=== PATIENT | male | born 1940 | race Two or more races ===

== ENCOUNTER → 2017-09-07 | Outpatient (CLI) | payer MEDICARE, BC ==
[2017-09-07 11:52] LABS: Basophils % (A) 0 %; CHCM 32.8; Eosinophils # (A) 0.1 k/uL (0-0.7); Eosinophils % (A) 1 %; HCT 44.6 % (39.0-53.0); HDW 2.61; HGB 14.2 gm/dL (13.0-17.5); Luc # (Auto) 0.22; Luc % (Auto) 3; Lymphocytes # (A) 2.2 k/uL (1.0-4.8); Lymphocytes % (A) 28 %; MCH 29.2 pg (25.0-35.0); MCHC 31.8 g/dL (31.0-37.0); MCV 91.8 fL (80.0-100.0); Mean Platelet Volume 7.6; Monocytes # (A) 0.5 k/uL (0-1.0); Monocytes % (A) 6 %; Neutrophils # (A) 4.8 k/uL (1.3-7.7); Neutrophils % (A) 62 %; RBC 4.86 m/uL (4.30-5.90); RDW 13.4 % (11.5-15.5); WBC 7.8 k/uL (3.8-10.6); WBC (Perox) 7.85
[2017-09-07 12:02] LABS: Calcium 8.9 mg/dL (8.4-10.2); Potassium 4.2 mmol/L (3.5-5.1)
== END | disposition home or self-care (01) ==
LOC: LABPAT 11:08
PROVIDERS: ATTEND Urology
DX: Z01.812 Encounter for preprocedural laboratory examination (principal); E11.9 Type 2 diabetes mellitus without complications; C67.2 Malignant neoplasm of lateral wall of bladder
CPT/HCPCS: 36415; 80048; 85025

== ENCOUNTER 2017-09-09 06:39 | Day surgery (SDC) | payer MEDICARE, BC ==
[2017-09-08 11:09] VITALS: BMI 44.3
[~2017-09-09 06:39] MED LIST: DEXAMETHASONE SOD PHOSPHATE 10 MG/ML 1 ML VIAL IV ONE; HYDROmorphone 0.5 MG/0.5 ML SYRINGE IVP PRN; LACTATED RINGERS 1,000 ML IV SCH; MIDAZOLAM 2 MG/2 ML VIAL IV PRN; ONDANSETRON 4 MG/2 ML VIAL IVP ONE; Pre Op ABX Message 1 EACH MISC MISCELLANE ONE
[2017-09-09 07:25] LABS: Glucose,Whole Blood 126 mg/dL (75-99)
[2017-09-09] MEDS ORDERED: LIDOCAINE 1% 20 ML VIAL (10MG/ML) FOR IV START INTRADERMA ONE (07:27)
[2017-09-09] MEDS ORDERED: MIDAZOLAM 2 MG/2 ML VIAL ONE (07:30)
[2017-09-09] MEDS ORDERED: LIDOCAINE 1% INJ 10MG/ML (20 ML MDV) ONE (07:30)
[2017-09-09] MEDS ORDERED: fentaNYL (PF) 50 MCG/ML 2 ML AMP ONE (07:30)
[2017-09-09] MEDS ORDERED: PROPOFOL 10 MG/ML 20 ML VIAL IV ONE (07:30)
[2017-09-09] MEDS ORDERED: SUCCINYLCHOLINE CHLORIDE 100 MG/5 ML SYR IV ONE (07:30)
--- NOTE | 2017-09-09 08:25 | P.OP ---
Date of Procedure: 09/09/17 Preoperative Diagnosis: Bladder cancer Postoperative Diagnosis: Bladder cancer Procedure(s) Performed: Transurethral vaporization of bladder tumor Anesthesia: EVA Surgeon: Familia Rowell Estimated Blood Loss (ml): 0 Pathology: none sent Condition: stable Disposition: PACU Indications for Procedure: The patient is a 77-year-old male with a history of bladder cancer was noted to have an 8 mm tumor on the left lateral wall at cystoscopy performed earlier in the month. Transurethral resection or destruction of the tumor is planned Description of Procedure: The patient was taken to the operating suite where adequate general anesthesia via orotracheal intubation was instituted. The patient was placed in the dorsal lithotomy position with his legs suspended from padded Job stirrups. The genitalia was prepped with Betadine soap, painted with Betadine solution and draped in a sterile fashion. The 22-Mongolian cystoscope sheath with obturator was passed through the urethra and into the bladder. Cystoscopy was performed using the 30 lens. The right ureteral orifice had previously been resected and its location was slightly lateral to normal. The left ureteral orifice was not identifiable. 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 I was unable to identify the tumor on the left lateral wall due to limitations relater to the patient's moribund obesity. The cystoscope was removed. The 16-Mongolian flexible cystoscope was then passed through the urethra and into the bladder. The tumor on the left lateral wall was identified and was just inside the bladder neck. There actually appeared to be 2 small tumors which in aggregate measured approximately 8 mm in size. The tumors were vaporized using the 350 fiber and the holmium laser at a setting of 1000 mJ and 8 cps. The tumors appeared to be superficial and all visible abnormality as well as the surrounding urothelium had been destroyed. The cystoscope was withdrawn and the procedure was terminated The patient tolerated procedure well and left the operating room awake and in satisfactory condition. Cystoscopy will be repeated in my office in 3 months.
[2017-09-09 08:28] LABS: Glucose,Whole Blood 135 mg/dL (75-99)
[2017-09-09 08:30] VITALS: TEMP 97.2
[2017-09-09 08:32] VITALS: RESP 18
[2017-09-09 09:33] VITALS: BP 134/63; PULSE 69
== END 2017-09-09 09:40 | disposition home or self-care (01) ==
LOC: OR 06:39
PROVIDERS: ATTEND Urology
DX: C67.2 Malignant neoplasm of lateral wall of bladder (principal); N30.90 Cystitis, unspecified without hematuria; I48.91 Unspecified atrial fibrillation; I11.0 Hypertensive heart disease with heart failure; I50.9 Heart failure, unspecified; J44.9 Chronic obstructive pulmonary disease, unspecified; E78.00 Pure hypercholesterolemia, unspecified; I25.10 Atherosclerotic heart disease of native coronary artery without angina pectoris; F41.9 Anxiety disorder, unspecified; E11.9 Type 2 diabetes mellitus without complications; E07.9 Disorder of thyroid, unspecified; E66.9 Obesity, unspecified; Z68.41 Body mass index [BMI] 40.0-44.9, adult; G20 Parkinson's disease; I25.2 Old myocardial infarction; Z79.899 Other long term (current) drug therapy; Z79.4 Long term (current) use of insulin; Z88.6 Allergy status to analgesic agent; Z82.49 Family history of ischemic heart disease and other diseases of the circulatory system; Z87.891 Personal history of nicotine dependence
CPT/HCPCS: 52234; C2627; J2250; J1100; J2405; J2001; J3010; J0330; J2704

== ENCOUNTER → 2018-07-05 | Outpatient (CLI) | payer MEDICARE ==
[2018-07-05 13:32] LABS: Basophils % (A) 0 %; Eosinophils # (A) 0.2 k/uL (0-0.7); Eosinophils % (A) 3 %; HGB 12.9 gm/dL (13.0-17.5); Lymphocytes # (A) 1.3 k/uL (1.0-4.8); Lymphocytes % (A) 16 %; MCH 30.5 pg (25.0-35.0); MCHC 32.2 g/dL (31.0-37.0); MCV 94.6 fL (80.0-100.0); Monocytes # (A) 0.6 k/uL (0-1.0); Monocytes % (A) 7 %; Neutrophils % (A) 73 %; Platelet Count 153 k/uL (150-450); RBC 4.22 m/uL (4.30-5.90); RDW 13.4 % (11.5-15.5); WBC 8.2 k/uL (3.8-10.6)
[2018-07-05 14:00] LABS: Potassium 4.3 mmol/L (3.5-5.1)
== END | disposition home or self-care (01) ==
LOC: LABPAT 12:11
PROVIDERS: ATTEND Urology
DX: Z01.812 Encounter for preprocedural laboratory examination (principal); Z01.818 Encounter for other preprocedural examination; C67.2 Malignant neoplasm of lateral wall of bladder; E11.9 Type 2 diabetes mellitus without complications; I10 Essential (primary) hypertension
CPT/HCPCS: 36415; 80048; 85025; 93005

== ENCOUNTER 2018-07-07 06:07 | Day surgery (SDC) | payer BC, MEDICARE ==
[2018-07-01 10:11] VITALS: BMI 41.5
--- NOTE | 2018-07-01 12:58 | P.GSHP ---
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 He has has recurrent high grade Stage Ta tumors since then and last had tumors on the left lateral wall and bladder neck destroyed using the holmium laser in 08/2017. Resection was impossible due to his moribund obesity. Cystoscopy on 06/10/2018 identified recurrent tumors lateral to the left ureteral orifice and near the bladder neck on the left. Destruction of the tumors is planned. - Constitutional Constitutional: Reports weight gain - Cardiovascular Cardiovascular: Reports edema, Reports leg edema, Reports shortness of breath - Respiratory Respiratory: Denies cough, Denies wheezing - Gastrointestinal Gastrointestinal: Denies abdominal pain - Genitourinary (Male) Genitourinary: Denies dysuria, Denies hematuria Past Medical History Past Medical History: Cancer, Heart Failure, COPD, Diabetes Mellitus, Thyroid Disorder Additional Past Medical History / Comment(s): HX A-FLUTTER/TACHYCARDIA, [place] W/ CARDIOVERSION, HAS BLADDER CA, CATARACTS, ABD HERNIA. PARKINSONS, DIVERTICULITIS. EDEMA FEET/LEGS,GI BLEED.DDD lower spine. Hx. of Bladder tumor. Last Myocardial Infarction Date:: UNK History of Any Multi-Drug Resistant Organisms: None Reported Past Surgical History: Adenoidectomy, Bladder Surgery, Tonsillectomy Additional Past Surgical History / Comment(s): 2013 CARDIOVERSION, SAL. BLADDER TUMOR REMOVED,cystoscopy with bladder CA TREATMENTS Past Anesthesia/Blood Transfusion Reactions: Previous Problems w/ Anesthesia Additional Past Anesthesia/Blood Transfusion Reaction / Comment(s): HX CLAUSTROPHOBIA Smoking Status: Former smoker - Past Family History Father Family Medical History: Cancer Additional Family Medical History / Comment(s): SISTERS W/ BREAST CA. Mother Family Medical History: Coronary Artery Disease (CAD) Additional Family Medical History / Comment(s): Macular degeneration Medications and Allergies Home Medications Medication Instructions Recorded Confirmed Type Insulin Lispro Protamin/Lispro 70 - 75 unit SQ BID PRN 02/26/14 07/01/18 History [humaLOG Mix 75-25 Kwikpen] Albuterol Inhaler [Ventolin Hfa 2 puff INHALATION RT-Q6H PRN 03/15/14 07/01/18 History Inhaler] Amiodarone HCl 200 mg PO QAM 04/21/14 07/01/18 History Furosemide 40 mg PO BID 04/21/16 07/01/18 History Metoprolol Tartrate 50 mg PO QAM 04/21/16 07/01/18 History Lisinopril [Zestril] 5 mg PO QAM 06/09/16 07/01/18 History Carbidopa-Levodopa 25-100 mg 2 each PO TID 07/08/16 07/01/18 History [Sinemet 25-100] Levothyroxine Sodium [Synthroid] 88 mcg PO QAM 07/01/18 07/01/18 History Allergies Allergy/AdvReac Type Severity Reaction Status Date / Time aspirin Allergy Swelling Verified 07/01/18 09:56 NSAIDS (Non-Steroidal Allergy Swelling Verified 07/01/18 09:56 Anti-Inflamma Surgical - Exam - General obese - ENT no hearing loss - Neck no masses, no lymphadectomy - Respiratory normal expansion, clear to auscultation - Cardiovascular Rhythm: regular Abnormal Heart Sounds: no systolic murmur - Abdomen Abdomen: soft, non tender, no organomegaly Hernia: none - Genitourinary normal penis with no external lesions Bilateral pedal edema Assessment and Plan Assessment: The patient will destruction of the bladder lesions under IV sedation. He has refused spinal anesthesia in the past. (1) Bladder cancer Status: Acute Code(s): C67.9 - MALIGNANT NEOPLASM OF BLADDER, UNSPECIFIED SNOMED Code(s): 178763092
[~2018-07-07 06:07] MED LIST changes: -DEXAMETHASONE SOD PHOSPHATE 10 MG/ML 1 ML VIAL IV ONE; -HYDROmorphone 0.5 MG/0.5 ML SYRINGE IVP PRN; -LACTATED RINGERS 1,000 ML IV SCH; -MIDAZOLAM 2 MG/2 ML VIAL IV PRN; -ONDANSETRON 4 MG/2 ML VIAL IVP ONE
[2018-07-07] MEDS ORDERED: HYDROmorphone 0.5 MG/0.5 ML SYRINGE IVP PRN (06:28)
[2018-07-07] MEDS ORDERED: LIDOCAINE 1% 20 ML VIAL (10MG/ML) FOR IV START INTRADERMA PRN (06:28)
[2018-07-07] MEDS ORDERED: LACTATED RINGERS 1,000 ML IV SCH (06:28)
[2018-07-07 06:45] LABS: Glucose,Whole Blood 178 mg/dL (75-99)
[2018-07-07] MEDS ORDERED: ONDANSETRON 4 MG/2 ML VIAL IVP ONE (07:00)
[2018-07-07 10:53] LABS: Glucose,Whole Blood 139 mg/dL (75-99)
[2018-07-07] MEDS ORDERED: GLYCOPYRROLATE 0.2 MG/ML 2 ML VIAL ONE (10:53)
[2018-07-07] MEDS ORDERED: fentaNYL (PF) 50 MCG/ML 2 ML AMP ONE (10:53)
[2018-07-07] MEDS ORDERED: PROPOFOL 10 MG/ML 20 ML VIAL IV ONE (10:53)
[2018-07-07] MEDS ORDERED: MIDAZOLAM 2 MG/2 ML VIAL ONE (10:53)
[2018-07-07] MEDS ORDERED: SUCCINYLCHOLINE CHLORIDE 100 MG/5 ML SYR IV ONE (10:53)
[2018-07-07] MEDS ORDERED: LIDOCAINE 1% INJ 10MG/ML (20 ML MDV) ONE (10:53)
--- NOTE | 2018-07-07 11:41 | P.OP ---
Date of Procedure: 07/07/18 Preoperative Diagnosis: Bladder cancer Postoperative Diagnosis: Bladder cancer Procedure(s) Performed: Transurethral resection of bladder tumors Anesthesia: EVA Surgeon: Familia Rowell Estimated Blood Loss (ml): 0 Pathology: other (Tumors left trigone) Condition: stable Disposition: PACU Indications for Procedure: The patient is a 78-year-old male with a history of recurrent urothelial cancer of the bladder. Cystoscopy performed early in the month identified a 6 mm papillary growth adjacent to the left ureteral orifice and a 4-5 mm growth just inside the bladder neck at 4:00. Transurethral resection of the tumors is planned. Description of Procedure: The patient was taken the operating suite where adequate general anesthesia via orotracheal tube patient was instituted. The patient was placed in the dorsal lithotomy position with his legs suspended from padded Job stirrups. The genitalia was prepped with Betadine solution and draped in a sterile fashion. The 25-Russian resectoscope sheath with visual obturator and 30 lens was passed through the urethra and into the bladder. The anterior urethra was free of inflammatory lesion tumor and stricture. Prostatic urethra showed evidence of moderate lateral lobe enlargement. No urothelial abnormalities are noted. The bladder was examined. The right ureteral orifice was unremarkable. Just posterior and lateral to the left ureteral orifice was a papillary growth measuring approximately 6 mm in diameter. A similar appearing growth was also noted at the bladder neck at 4:00. The remainder the bladder was unremarkable. Both tumors were resected down to the underlying muscle using the loop cutting electrode anterior cutting current. Bleeding was negligible and no cautery was used adjacent to the left ureteral orifice. The base of the tumor at the bladder neck was cauterized. The tissue fragments were removed through the resectoscope and the resectoscope was withdrawn. An 18-Russian Campuzano catheter was inserted and left to gravity drainage. The patient tolerated the procedure well and left the operative room awake and in satisfactory condition. There was essentially no blood loss. The patient's catheter will be removed in 48 hours provided that his urine remains clear. He will be seen back in follow-up in 1 week.
[2018-07-07 11:58] VITALS: RESP 16; TEMP 97.6
[2018-07-07 12:14] LABS: Glucose,Whole Blood 132 mg/dL (75-99)
[2018-07-07 13:42] VITALS: BP 178/85; PULSE 47
== END 2018-07-07 14:25 | disposition home or self-care (01) ==
LOC: OR 06:07
PROVIDERS: ATTEND Urology
DX: C67.0 Malignant neoplasm of trigone of bladder (principal); Z85.51 Personal history of malignant neoplasm of bladder; I50.9 Heart failure, unspecified; E07.9 Disorder of thyroid, unspecified; Z87.891 Personal history of nicotine dependence; E11.22 Type 2 diabetes mellitus with diabetic chronic kidney disease; I12.9 Hypertensive chronic kidney disease with stage 1 through stage 4 chronic kidney disease, or unspecified chronic kidney disease; N18.9 Chronic kidney disease, unspecified; G20 Parkinson's disease; Z79.899 Other long term (current) drug therapy; Z88.6 Allergy status to analgesic agent; I48.92 Unspecified atrial flutter; I42.9 Cardiomyopathy, unspecified
CPT/HCPCS: 88307; 52234; J2250; J2405; J2001; J3010; J0330; J2704

== ENCOUNTER 2018-07-27 17:21 | Emergency (ER) | payer MEDICARE ==
[2018-07-27 17:51] VITALS: BP 120/78; PULSE 50; RESP 20; TEMP 98.4
--- NOTE | 2018-07-27 18:39 | ED ---
Male Urogenital HPI - General Chief complaint: Urogenital Stated complaint: catheter problems Time Seen by Provider: 07/27/18 17:50 Source: patient, family, RN notes reviewed Mode of arrival: wheelchair Limitations: no limitations - History of Present Illness Initial comments: This is a 78-year-old male with a history of bladder cancer who had a procedure done to remove the cancer who was seen yesterday by his urologist and a catheter placed because of hematuria and clots who is here today because of leaking at the junction of the Campuzano catheter and the tube connected to the pouch. He's also had some bladder spasms. This was after the catheter was placed. He states he did have it removed tomorrow like it out today. He denies any fevers chills nausea vomiting sweats or other symptoms. - Related Data Home Medications Medication Instructions Recorded Confirmed Insulin Lispro Protamin/Lispro 70 - 75 unit SQ BID PRN 02/26/14 07/27/18 [humaLOG Mix 75-25 Kwikpen] Albuterol Inhaler [Ventolin Hfa 2 puff INHALATION RT-Q6H PRN 03/15/14 07/27/18 Inhaler] Amiodarone HCl 200 mg PO QAM 04/21/14 07/27/18 Furosemide 40 mg PO BID 04/21/16 07/27/18 Metoprolol Tartrate 50 mg PO QAM 04/21/16 07/27/18 Lisinopril [Zestril] 5 mg PO QAM 06/09/16 07/27/18 Carbidopa-Levodopa 25-100 mg 2 tab PO TID 07/08/16 07/27/18 [Sinemet 25-100] Levothyroxine Sodium [Synthroid] 88 mcg PO QAM 07/01/18 07/27/18 Allergies Allergy/AdvReac Type Severity Reaction Status Date / Time aspirin Allergy Swelling Verified 07/27/18 18:13 NSAIDS (Non-Steroidal Allergy Swelling Verified 07/27/18 18:13 Anti-Inflamma Review of Systems ROS Statement: Those systems with pertinent positive or pertinent negative responses have been documented in the HPI. ROS Other: All systems not noted in ROS Statement are negative. Past Medical History Past Medical History: Cancer, Heart Failure, COPD, Diabetes Mellitus, Thyroid Disorder Additional Past Medical History / Comment(s): HX A-FLUTTER/TACHYCARDIA, [place] W/ CARDIOVERSION, HAS BLADDER CA, CATARACTS, ABD HERNIA. PARKINSONS, DIVERTICULITIS. EDEMA FEET/LEGS,GI BLEED.DDD lower spine. Hx. of Bladder tumor. Last Myocardial Infarction Date:: UNK History of Any Multi-Drug Resistant Organisms: None Reported Past Surgical History: Adenoidectomy, Bladder Surgery, Tonsillectomy Additional Past Surgical History / Comment(s): 2013 CARDIOVERSION, SAL. BLADDER TUMOR REMOVED,cystoscopy with bladder CA TREATMENTS Past Anesthesia/Blood Transfusion Reactions: Previous Problems w/ Anesthesia Additional Past Anesthesia/Blood Transfusion Reaction / Comment(s): HX CLAUSTROPHOBIA Past Psychological History: Anxiety Smoking Status: Former smoker Past Alcohol Use History: None Reported Past Drug Use History: None Reported - Past Family History Father Family Medical History: Cancer Additional Family Medical History / Comment(s): SISTERS W/ BREAST CA. Mother Family Medical History: Coronary Artery Disease (CAD) Additional Family Medical History / Comment(s): Macular degeneration General Exam - General Exam Comments Initial Comments: Physical well-developed well-nourished awake alert oriented 3 male Limitations: no limitations General appearance: alert, in no apparent distress Head exam: Present: atraumatic, normocephalic, normal inspection Eye exam: Present: normal appearance, PERRL, EOMI. Absent: scleral icterus, conjunctival injection, periorbital swelling Respiratory exam: Present: other (No evidence of respiratory distress) Cardiovascular Exam: Present: regular rate GI/Abdominal exam: Present: soft, normal bowel sounds. Absent: distended, tenderness, guarding, rebound, rigid exam: Present: other (Campuzano catheter is in place are is currently no leaking but evidence of leak at the connection.) Extremities exam: Present: normal inspection, full ROM, normal capillary refill. Absent: tenderness, pedal edema, joint swelling, calf tenderness Back exam: Present: full ROM Neurological exam: Present: alert, oriented X3, CN II-XII intact Psychiatric exam: Present: normal affect, normal mood Skin exam: Present: warm, dry, intact, normal color. Absent: rash Course Vital Signs 07/27/18 17:49 Temperature 98.4 F Pulse Rate 50 L Respiratory 20 Rate Blood Pressure 120/78 O2 Sat by Pulse 95 Oximetry Medical Decision Making - Medical Decision Making Bladder scan was negative patient will have the cath removed he is follow-up with his doctor return when necessary Disposition Clinical Impression: Indwelling Campuzano catheter present, Campuzano catheter problem Disposition: HOME SELF-CARE Condition: Good Instructions: Campuzano Catheter Removal (DC) Is patient prescribed a controlled substance at d/c from ED?: No Referrals: Joselito Wallis DO [Primary Care Provider] - 1-2 days
== END 2018-07-27 19:01 | disposition home or self-care (01) ==
LOC: EC 17:21
DX: T83.038A Leakage of other urinary catheter, initial encounter (principal); J44.9 Chronic obstructive pulmonary disease, unspecified; I25.2 Old myocardial infarction; E11.9 Type 2 diabetes mellitus without complications; I50.9 Heart failure, unspecified; I48.92 Unspecified atrial flutter; G20 Parkinson's disease; F41.9 Anxiety disorder, unspecified; Z88.6 Allergy status to analgesic agent; Z79.899 Other long term (current) drug therapy; Z87.891 Personal history of nicotine dependence; Z85.51 Personal history of malignant neoplasm of bladder; Y83.8 Other surgical procedures as the cause of abnormal reaction of the patient, or of later complication, without mention of misadventure at the time of the procedure
CPT/HCPCS: 99283

== ENCOUNTER 2018-07-30 22:02 | Inpatient (IN) | payer MEDICARE ==
[2018-07-30] MEDS ORDERED: ACETAMINOPHEN TAB 500 MG TAB PO STA (22:37)
--- NOTE | 2018-07-30 22:39 | ED ---
General Adult HPI - General Chief complaint: Weakness Stated complaint: Weakness Time Seen by Provider: 07/30/18 22:37 Source: family, EMS Mode of arrival: EMS - History of Present Illness Initial comments: Dayday Rojo is a 78-year-old male with a very complicated past medical history most significant for bladder mass with intermittent indwelling catheters most recently had a catheter removed on July 27. The patient presents the ED via EMS from home for evaluation of fever and generalized weakness. When asked how he is feeling the patient states he feels "like crap" and reports that his entire body hurts. He has no specific complaints. Patient 's at bedside is able to provide a more thorough history. The patient's is his primary caregiver. She states that the patient was doing well in the day that he had his catheter removed, however since that time he is progressively become more weak. She reports that today she noticed that he felt very hot to the touch though she didn't check his temperature, she states he had a single episode of nonbloody nonbilious emesis this afternoon. She states he didn't take his nighttime medications and when she was attempting to help him stand he was very weak and she couldn't. At that time she decided to call EMS for transport to the hospital. The states that the patient has had symptoms like this in the past when he has urinary tract infections and a fever. - Related Data Home Medications Medication Instructions Recorded Confirmed Insulin Lispro Protamin/Lispro 70 - 75 unit SQ BID PRN 02/26/14 07/30/18 [humaLOG Mix 75-25 Kwikpen] Albuterol Inhaler [Ventolin Hfa 2 puff INHALATION RT-Q6H PRN 03/15/14 07/30/18 Inhaler] Amiodarone HCl 200 mg PO QAM 04/21/14 07/30/18 Furosemide 40 mg PO BID 04/21/16 07/30/18 Metoprolol Tartrate 50 mg PO QAM 04/21/16 07/30/18 Lisinopril [Zestril] 5 mg PO QAM 06/09/16 07/30/18 Carbidopa-Levodopa 25-100 mg 2 tab PO TID 07/08/16 07/30/18 [Sinemet 25-100] Levothyroxine Sodium [Synthroid] 88 mcg PO QAM 07/01/18 07/30/18 Allergies Allergy/AdvReac Type Severity Reaction Status Date / Time aspirin Allergy Swelling Verified 07/30/18 22:39 NSAIDS (Non-Steroidal Allergy Swelling Verified 07/30/18 22:39 Anti-Inflamma Review of Systems ROS Statement: Those systems with pertinent positive or pertinent negative responses have been documented in the HPI. ROS Other: All systems not noted in ROS Statement are negative. Past Medical History Past Medical History: Cancer, Heart Failure, COPD, Diabetes Mellitus, Thyroid Disorder Additional Past Medical History / Comment(s): HX A-FLUTTER/TACHYCARDIA, [place] W/ CARDIOVERSION, HAS BLADDER CA, CATARACTS, ABD HERNIA. PARKINSONS, DIVERTICULITIS. EDEMA FEET/LEGS,GI BLEED.DDD lower spine. Hx. of Bladder tumor. IDC removed 07-27-18. Last Myocardial Infarction Date:: UNK History of Any Multi-Drug Resistant Organisms: None Reported Past Surgical History: Adenoidectomy, Bladder Surgery, Tonsillectomy Additional Past Surgical History / Comment(s): 2013 CARDIOVERSION, SAL. BLADDER TUMOR REMOVED,cystoscopy with bladder CA TREATMENTS Past Anesthesia/Blood Transfusion Reactions: Previous Problems w/ Anesthesia Additional Past Anesthesia/Blood Transfusion Reaction / Comment(s): HX CLAUSTROPHOBIA Past Psychological History: Anxiety Smoking Status: Former smoker Past Alcohol Use History: None Reported Past Drug Use History: None Reported - Past Family History Father Family Medical History: Cancer Additional Family Medical History / Comment(s): SISTERS W/ BREAST CA. Mother Family Medical History: Coronary Artery Disease (CAD) Additional Family Medical History / Comment(s): Macular degeneration General Exam - General Exam Comments Initial Comments: Physical Exam GENERAL: Chronically ill-appearing elderly gentleman HENT: Normocephalic, Atraumatic. EYES: PERRL, EOMI PULMONARY: Unlabored respirations. CARDIOVASCULAR: There is a regular rate and rhythm without any murmurs gallops or rubs. ABDOMEN: Soft and nontender with normal bowel sounds. SKIN: Chronic skin changes in the bilateral lower extremities : Deferred NEUROLOGIC: Alert and oriented to person, place, somewhat confused about events leading up to hospitalization, somewhat confused about past medical history Pronounced tremor in the upper extremities MUSCULOSKELETAL: Bilateral lower extremity edema with chronic skin changes consistent with venous stasis PSYCHIATRIC: Situational depression Limitations: no limitations Course Vital Signs 07/30/18 07/31/18 22:06 00:39 Temperature 102.0 F H 99.2 F Pulse Rate 84 80 Respiratory 22 20 Rate Blood Pressure 164/61 115/58 O2 Sat by Pulse 96 92 L Oximetry EKG Findings - EKG Comments: EKG Findings:: EKG obtained at 10:55 PM, rate is 87, rhythm is sinus, there is a left axis deviation and incomplete left bundle-branch block. W[place] 174, QRS 106 , QTC is prolonged at 466. When compared to EKG obtained last month there is no significant change in the morphology, patient's previous EKG was suggestive of atrial flutter which is not visualized in this EKG. Medical Decision Making - Medical Decision Making The patient was seen and evaluated, history is obtained from the patient, the , EMS and review of medical record This is a chronically ill 78-year-old male who recently had a Campuzano catheter removed, review of the chart reveals no previous urine cultures Patient is noted to be febrile upon arrival, a sepsis workup was ordered Labs reveal leukocytosis, chronic anemia, urinary tract infection, mild lactic acidosis, however the patient does appear to be fluid overloaded and I want to be gentle with rehydration. Urine cultures, blood cultures and Rocephin were ordered for urinary tract infection Gentle IV fluids and admission to the hospital ordered The patient's urologist was consulted for further evaluation Patient's heart rate improved, fever resolved after Tylenol and IV fluids. Patient was found to have bed bugs, the patient was decontaminated and cleaned in our emergency department. His room was decontaminated. He was given clean clothes prior to transfer to the floor. - Lab Data Result diagrams: 07/30/18 23:11 07/30/18 23:11 Lab Results 07/30/18 07/30/18 07/30/18 Range/Units 22:55 23:11 23:11 WBC 11.2 H (3.8-10.6) k/uL RBC 4.00 L (4.30-5.90) m/uL Hgb 12.1 L (13.0-17.5) gm/dL Hct 36.3 L (39.0-53.0) % MCV 90.9 (80.0-100.0) fL MCH 30.2 (25.0-35.0) pg MCHC 33.2 (31.0-37.0) g/dL RDW 13.1 (11.5-15.5) % Plt Count 147 L (150-450) k/uL Neutrophils % 90 % Lymphocytes % 5 % Monocytes % 4 % Eosinophils % 1 % Basophils % 0 % Neutrophils # 10.0 H (1.3-7.7) k/uL Lymphocytes # 0.6 L (1.0-4.8) k/uL Monocytes # 0.4 (0-1.0) k/uL Eosinophils # 0.1 (0-0.7) k/uL Basophils # 0.0 (0-0.2) k/uL PT (9.0-12.0) sec INR (<1.2) APTT (22.0-30.0) sec Sodium 139 (137-145) mmol/L Potassium 4.2 (3.5-5.1) mmol/L Chloride 103 (98-107) mmol/L Carbon Dioxide 26 (22-30) mmol/L Anion Gap 10 mmol/L BUN 30 H (9-20) mg/dL Creatinine 1.78 H (0.66-1.25) mg/dL Est GFR (CKD-EPI)AfAm 42 (>60 ml/min/1.73 sqM) Est GFR (CKD-EPI)NonAf 36 (>60 ml/min/1.73 sqM) Glucose 313 H (74-99) mg/dL Plasma Lactic Acid Riley (0.7-2.0) mmol/L Calcium 8.8 (8.4-10.2) mg/dL Total Bilirubin 1.4 H (0.2-1.3) mg/dL AST 348 H (17-59) U/L ALT 101 H (21-72) U/L Alkaline Phosphatase 249 H (38-126) U/L Troponin I (0.000-0.034) ng/mL Total Protein 6.1 L (6.3-8.2) g/dL Albumin 3.4 L (3.5-5.0) g/dL Urine Color Yellow Urine Appearance Clear (Clear) Urine pH 5.0 (5.0-8.0) Ur Specific [place] 1.009 (1.001-1.035) Urine Protein Negative (Negative) Urine Glucose (UA) 3+ H (Negative) Urine Ketones Negative (Negative) Urine Blood Moderate H (Negative) Urine Nitrite Negative (Negative) Urine Bilirubin Negative (Negative) Urine Urobilinogen <2.0 (<2.0) mg/dL Ur Leukocyte Esterase Small H (Negative) Urine RBC 17 H (0-5) /hpf Urine WBC 25 H (0-5) /hpf Urine Mucus Rare H (None) /hpf 07/30/18 07/30/18 07/30/18 Range/Units 23:11 23:11 23:11 WBC (3.8-10.6) k/uL RBC (4.30-5.90) m/uL Hgb (13.0-17.5) gm/dL Hct (39.0-53.0) % MCV (80.0-100.0) fL MCH (25.0-35.0) pg MCHC (31.0-37.0) g/dL RDW (11.5-15.5) % Plt Count (150-450) k/uL Neutrophils % % Lymphocytes % % Monocytes % % Eosinophils % % Basophils % % Neutrophils # (1.3-7.7) k/uL Lymphocytes # (1.0-4.8) k/uL Monocytes # (0-1.0) k/uL Eosinophils # (0-0.7) k/uL Basophils # (0-0.2) k/uL PT 10.4 (9.0-12.0) sec INR 1.1 (<1.2) APTT 20.8 L (22.0-30.0) sec Sodium (137-145) mmol/L Potassium (3.5-5.1) mmol/L Chloride (98-107) mmol/L Carbon Dioxide (22-30) mmol/L Anion Gap mmol/L BUN (9-20) mg/dL Creatinine (0.66-1.25) mg/dL Est GFR (CKD-EPI)AfAm (>60 ml/min/1.73 sqM) Est GFR (CKD-EPI)NonAf (>60 ml/min/1.73 sqM) Glucose (74-99) mg/dL Plasma Lactic Acid Riley 2.8 H* (0.7-2.0) mmol/L Calcium (8.4-10.2) mg/dL Total Bilirubin (0.2-1.3) mg/dL AST (17-59) U/L ALT (21-72) U/L Alkaline Phosphatase (38-126) U/L Troponin I 0.034 (0.000-0.034) ng/mL Total Protein (6.3-8.2) g/dL Albumin (3.5-5.0) g/dL Urine Color Urine Appearance (Clear) Urine pH (5.0-8.0) Ur Specific [place] (1.001-1.035) Urine Protein (Negative) Urine Glucose (UA) (Negative) Urine Ketones (Negative) Urine Blood (Negative) Urine Nitrite (Negative) Urine Bilirubin (Negative) Urine Urobilinogen (<2.0) mg/dL Ur Leukocyte Esterase (Negative) Urine RBC (0-5) /hpf Urine WBC (0-5) /hpf Urine Mucus (None) /hpf Disposition Clinical Impression: Urinary tract infection, Sepsis Disposition: ADMITTED IP TO THIS [facility] Condition: Serious
[2018-07-30 23:19] LABS: Appearance,Urine Clear (Clear); Bilirubin,Urine Negative (Negative); Blood,Urine Moderate (Negative); Color,Urine Yellow; Glucose,Urine (UA) 3+ (Negative); Ketones,Urine Negative (Negative); Leukocyte Esterase,Urine Small (Negative); Mucus,Urine Rare /hpf; Nitrite,Urine Negative (Negative); Protein,Urine Negative (Negative); RBC,Urine 17 /hpf (0-5); Specific Gravity,Urine 1.009 (1.001-1.035); Urobilinogen,Urine <2.0 mg/dL (<2.0); WBC,Urine 25 /hpf (0-5)
[2018-07-30] MEDS: SODIUM CHLORIDE 0.9% 500 ML 500 ML IV SCH (23:22)
[2018-07-30 23:40] LABS: Basophils % (A) 0 %; Eosinophils # (A) 0.1 k/uL (0-0.7); Eosinophils % (A) 1 %; HCT 36.3 % (39.0-53.0); HGB 12.1 gm/dL (13.0-17.5); Lymphocytes # (A) 0.6 k/uL (1.0-4.8); Lymphocytes % (A) 5 %; MCH 30.2 pg (25.0-35.0); MCHC 33.2 g/dL (31.0-37.0); MCV 90.9 fL (80.0-100.0); Mean Platelet Volume 8.4; Monocytes # (A) 0.4 k/uL (0-1.0); Monocytes % (A) 4 %; Neutrophils % (A) 90 %; Platelet Count 147 k/uL (150-450); RDW 13.1 % (11.5-15.5); WBC 11.2 k/uL (3.8-10.6)
[2018-07-30 23:54] LABS: INR 1.1 (<1.2); Prothrombin Time 10.4 sec (9.0-12.0)
[2018-07-30 23:59] LABS: Partial Thromboplastin Time 20.8 sec (22.0-30.0)
[2018-07-31] MEDS ORDERED: ACETAMINOPHEN TAB 325 MG TAB PO PRN ×2 (00:04→16:38)
[2018-07-31] MEDS ORDERED: NALOXONE 0.4 MG/ML 1 ML VIAL IV PRN (00:04)
--- NOTE | 2018-07-31 00:31 | XR ---
EXAMINATION TYPE: XR chest 2V DATE OF EXAM: 07/31/2018 COMPARISON: 04/21/2016 HISTORY: Weakness TECHNIQUE: Frontal and lateral views of the chest are obtained. FINDINGS: There is no heart failure nor confluent pneumonic infiltrate. There is slight blunting of posterior costophrenic angles. Heart size is normal. There are chest leads. Bony thorax is intact. IMPRESSION: New small pleural effusions or pleural reaction compared to old exam. Normal heart.
[2018-07-31 00:35] LABS: Albumin 3.4 g/dL (3.5-5.0); Calcium 8.8 mg/dL (8.4-10.2); Potassium 4.2 mmol/L (3.5-5.1); Total Bilirubin 1.4 mg/dL (0.2-1.3); Total Protein 6.1 g/dL (6.3-8.2)
[2018-07-31] MEDS: SODIUM CHLORIDE 0.9% 500 ML 500 ML IV SCH (00:36)
[2018-07-31] MEDS: CARBIDOPA-LEVODOPA 25-100 MG 1 EACH TAB PO SCH ×3 (01:06→16:53)
[2018-07-31] MEDS: FUROSEMIDE 40 MG TAB PO SCH ×3 (01:07→10:12)
[2018-07-31] MEDS: SODIUM CHLORIDE 0.9% 1,000 ML IV SCH ×3 (01:07→22:01)
[2018-07-31 02:57] VITALS: BMI 42.1
[2018-07-31] MEDS ORDERED: SODIUM CHLORIDE 0.9% 500 ML 250 ML IV ONE (05:15)
[2018-07-31] MEDS: LEVOTHYROXINE 88 MCG TAB PO SCH (05:46)
[2018-07-31 06:56] LABS: Glucose,Whole Blood 344 mg/dL (75-99)
[2018-07-31 07:48] LABS: Basophils % (A) 0 %; Eosinophils % (A) 0 %; HCT 31.3 % (39.0-53.0); HGB 10.7 gm/dL (13.0-17.5); Lymphocytes # (A) 0.7 k/uL (1.0-4.8); Lymphocytes % (A) 5 %; MCH 31.5 pg (25.0-35.0); MCHC 34.3 g/dL (31.0-37.0); MCV 91.9 fL (80.0-100.0); Monocytes # (A) 0.6 k/uL (0-1.0); Monocytes % (A) 4 %; Neutrophils # (A) 12.3 k/uL (1.3-7.7); Neutrophils % (A) 90 %; Platelet Count 143 k/uL (150-450); RDW 13.3 % (11.5-15.5); WBC 13.6 k/uL (3.8-10.6)
[2018-07-31] MEDS: INSULIN ASPART 100 UNIT/ML 1 ML 10 ML VIAL SQ SCH ×4 (08:08→21:59)
[2018-07-31] MEDS: HEPARIN SODIUM,PORCINE 5,000 UNIT/ML 1 ML VIAL SQ SCH ×2 (08:09→22:00)
[2018-07-31] MEDS: AMIODARONE 200 MG TAB PO SCH (08:09)
[2018-07-31] MEDS: METOPROLOL TARTRATE 50 MG TAB PO SCH (08:10)
[2018-07-31] MEDS ORDERED: LISINOPRIL 5 MG TAB PO SCH (09:00)
--- NOTE | 2018-07-31 10:16 | P.GSCN ---
History of Present Illness Consult date: 07/31/18 History of present illness: The patient is a 78-year-old gentleman admitted to the hospital with a urinary tract infection with sepsis. The patient is known to for recurrent superficial bladder cancer. He apparently had a resection in the end of June. The catheter was removed several days later. Apparently he has been having problems urinating and had another catheter. It was removed a few days ago. He developed lethargy fever and chills. He was brought to the emergency room. He is found to have an elevated white count and lactic acidosis and infected looking urine. He was admitted for a urinary tract infection with sepsis. The patient states that he normally does not have problems urinating however he does have Parkinson's and incomplete voiding would probably be common. The patient has not been on any sort of bladder medication. Review of Systems - Constitutional Reports chills, Reports fatigue, Reports fever, Reports lethargy - Cardiovascular Reports dyspnea on exertion - Genitourinary Reports as per HPI Past Medical History Past Medical History: Cancer, Heart Failure, COPD, Diabetes Mellitus, Thyroid Disorder Additional Past Medical History / Comment(s): HX A-FLUTTER/TACHYCARDIA, [place] W/ CARDIOVERSION, HAS BLADDER CA, CATARACTS, ABD HERNIA. PARKINSONS, DIVERTICULITIS. EDEMA FEET/LEGS,GI BLEED.DDD lower spine. Hx. of Bladder tumor. IDC removed 07-27-18. Last Myocardial Infarction Date:: UNK History of Any Multi-Drug Resistant Organisms: None Reported Past Surgical History: Adenoidectomy, Bladder Surgery, Tonsillectomy Additional Past Surgical History / Comment(s): 2013 CARDIOVERSION, SAL. BLADDER TUMOR REMOVED,cystoscopy with bladder CA TREATMENTS Past Anesthesia/Blood Transfusion Reactions: Previous Problems w/ Anesthesia Additional Past Anesthesia/Blood Transfusion Reaction / Comm: HX CLAUSTROPHOBIA Past Psychological History: Anxiety Smoking Status: Former smoker Past Alcohol Use History: None Reported Past Drug Use History: None Reported - Past Family History Father Family Medical History: Cancer Additional Family Medical History / Comment(s): SISTERS W/ BREAST CA. Mother Family Medical History: Coronary Artery Disease (CAD) Additional Family Medical History / Comment(s): Macular degeneration Sister(s) Family Medical History: Cancer Additional Family Medical History / Comment(s): breast CA Medications and Allergies Home Medications Medication Instructions Recorded Confirmed Type Insulin Lispro Protamin/Lispro 70 - 75 unit SQ BID PRN 02/26/14 07/30/18 History [humaLOG Mix 75-25 Kwikpen] Albuterol Inhaler [Ventolin Hfa 2 puff INHALATION RT-Q6H PRN 03/15/14 07/30/18 History Inhaler] Amiodarone HCl 200 mg PO QAM 04/21/14 07/30/18 History Furosemide 40 mg PO BID 04/21/16 07/30/18 History Metoprolol Tartrate 50 mg PO QAM 04/21/16 07/30/18 History Lisinopril [Zestril] 5 mg PO QAM 06/09/16 07/30/18 History Carbidopa-Levodopa 25-100 mg 2 tab PO TID 07/08/16 07/30/18 History [Sinemet 25-100] Levothyroxine Sodium [Synthroid] 88 mcg PO QAM 07/01/18 07/30/18 History Allergies Allergy/AdvReac Type Severity Reaction Status Date / Time aspirin Allergy Swelling Verified 07/30/18 22:39 NSAIDS (Non-Steroidal Allergy Swelling Verified 07/30/18 22:39 Anti-Inflamma Surgical - Exam Vital Signs Temp Pulse Resp BP Pulse Ox 102.0 F H 84 22 164/61 96 07/30/18 22:06 07/30/18 22:06 07/30/18 22:06 07/30/18 22:06 07/30/18 22:06 - General well developed, well nourished - Eyes PERRL - ENT decreased hearing - Respiratory normal expansion, normal respiratory effort - Cardiovascular Rhythm: regular - Abdomen Abdomen: soft, non tender - Genitourinary Uncircumcised phallus normal testes epididymis and scrotum. - Integumentary no rash, no growths - Neurologic Flat affect, low speech consistent with Parkinson's normal coordination, normal sensation, other (Flat affect) - Musculoskeletal normal posture - Psychiatric oriented to time, oriented to person, oriented to place, speech is normal, memory intact Results - Labs 07/31/18 07:24 07/31/18 07:24 Abnormal Lab Results - Last 24 Hours (Table) 07/30/18 07/30/18 07/30/18 Range/Units 22:55 23:11 23:11 WBC 11.2 H (3.8-10.6) k/uL RBC 4.00 L (4.30-5.90) m/uL Hgb 12.1 L (13.0-17.5) gm/dL Hct 36.3 L (39.0-53.0) % Plt Count 147 L (150-450) k/uL Neutrophils # 10.0 H (1.3-7.7) k/uL Lymphocytes # 0.6 L (1.0-4.8) k/uL APTT (22.0-30.0) sec Sodium (137-145) mmol/L BUN 30 H (9-20) mg/dL Creatinine 1.78 H (0.66-1.25) mg/dL Glucose 313 H (74-99) mg/dL POC Glucose (mg/dL) (75-99) mg/dL Plasma Lactic Acid Riley (0.7-2.0) mmol/L Calcium (8.4-10.2) mg/dL Total Bilirubin 1.4 H (0.2-1.3) mg/dL AST 348 H (17-59) U/L ALT 101 H (21-72) U/L Alkaline Phosphatase 249 H (38-126) U/L Total Protein 6.1 L (6.3-8.2) g/dL Albumin 3.4 L (3.5-5.0) g/dL Urine Glucose (UA) 3+ H (Negative) Urine Blood Moderate H (Negative) Ur Leukocyte Esterase Small H (Negative) Urine RBC 17 H (0-5) /hpf Urine WBC 25 H (0-5) /hpf Urine Mucus Rare H (None) /hpf 07/30/18 07/30/18 07/31/18 Range/Units 23:11 23:11 03:51 WBC (3.8-10.6) k/uL RBC (4.30-5.90) m/uL Hgb (13.0-17.5) gm/dL Hct (39.0-53.0) % Plt Count (150-450) k/uL Neutrophils # (1.3-7.7) k/uL Lymphocytes # (1.0-4.8) k/uL APTT 20.8 L (22.0-30.0) sec Sodium (137-145) mmol/L BUN (9-20) mg/dL Creatinine (0.66-1.25) mg/dL Glucose (74-99) mg/dL POC Glucose (mg/dL) (75-99) mg/dL Plasma Lactic Acid Riley 2.8 H* 2.1 H* (0.7-2.0) mmol/L Calcium (8.4-10.2) mg/dL Total Bilirubin (0.2-1.3) mg/dL AST (17-59) U/L ALT (21-72) U/L Alkaline Phosphatase (38-126) U/L Total Protein (6.3-8.2) g/dL Albumin (3.5-5.0) g/dL Urine Glucose (UA) (Negative) Urine Blood (Negative) Ur Leukocyte Esterase (Negative) Urine RBC (0-5) /hpf Urine WBC (0-5) /hpf Urine Mucus (None) /hpf 07/31/18 07/31/18 07/31/18 Range/Units 06:54 07:24 07:24 WBC 13.6 H (3.8-10.6) k/uL RBC 3.40 L (4.30-5.90) m/uL Hgb 10.7 L (13.0-17.5) gm/dL Hct 31.3 L (39.0-53.0) % Plt Count 143 L (150-450) k/uL Neutrophils # 12.3 H (1.3-7.7) k/uL Lymphocytes # 0.7 L (1.0-4.8) k/uL APTT (22.0-30.0) sec Sodium (137-145) mmol/L BUN (9-20) mg/dL Creatinine (0.66-1.25) mg/dL Glucose (74-99) mg/dL POC Glucose (mg/dL) 344 H (75-99) mg/dL Plasma Lactic Acid Riley 2.3 H* (0.7-2.0) mmol/L Calcium (8.4-10.2) mg/dL Total Bilirubin (0.2-1.3) mg/dL AST (17-59) U/L ALT (21-72) U/L Alkaline Phosphatase (38-126) U/L Total Protein (6.3-8.2) g/dL Albumin (3.5-5.0) g/dL Urine Glucose (UA) (Negative) Urine Blood (Negative) Ur Leukocyte Esterase (Negative) Urine RBC (0-5) /hpf Urine WBC (0-5) /hpf Urine Mucus (None) /hpf 07/31/18 Range/Units 07:24 WBC (3.8-10.6) k/uL RBC (4.30-5.90) m/uL Hgb (13.0-17.5) gm/dL Hct (39.0-53.0) % Plt Count (150-450) k/uL Neutrophils # (1.3-7.7) k/uL Lymphocytes # (1.0-4.8) k/uL APTT (22.0-30.0) sec Sodium 135 L (137-145) mmol/L BUN 34 H (9-20) mg/dL Creatinine 2.08 H (0.66-1.25) mg/dL Glucose 323 H (74-99) mg/dL POC Glucose (mg/dL) (75-99) mg/dL Plasma Lactic Acid Riley (0.7-2.0) mmol/L Calcium 8.0 L (8.4-10.2) mg/dL Total Bilirubin (0.2-1.3) mg/dL AST (17-59) U/L ALT (21-72) U/L Alkaline Phosphatase (38-126) U/L Total Protein (6.3-8.2) g/dL Albumin (3.5-5.0) g/dL Urine Glucose (UA) (Negative) Urine Blood (Negative) Ur Leukocyte Esterase (Negative) Urine RBC (0-5) /hpf Urine WBC (0-5) /hpf Urine Mucus (None) /hpf Microbiology - Last 24 Hours (Table) 07/30/18 22:55 Urine Culture - Preliminary Urine,Clean Catch Diabetes panel 07/30/18 07/31/18 Range/Units 23:11 07:24 Sodium 139 135 L (137-145) mmol/L Potassium 4.2 4.0 (3.5-5.1) mmol/L Chloride 103 102 (98-107) mmol/L Carbon Dioxide 26 25 (22-30) mmol/L BUN 30 H 34 H (9-20) mg/dL Creatinine 1.78 H 2.08 H (0.66-1.25) mg/dL Glucose 313 H 323 H (74-99) mg/dL Calcium 8.8 8.0 L (8.4-10.2) mg/dL AST 348 H (17-59) U/L ALT 101 H (21-72) U/L Alkaline Phosphatase 249 H (38-126) U/L Total Protein 6.1 L (6.3-8.2) g/dL Albumin 3.4 L (3.5-5.0) g/dL Calcium panel 07/30/18 07/31/18 Range/Units 23:11 07:24 Calcium 8.8 8.0 L (8.4-10.2) mg/dL Albumin 3.4 L (3.5-5.0) g/dL Pituitary panel 07/30/18 07/31/18 Range/Units 23:11 07:24 Sodium 139 135 L (137-145) mmol/L Potassium 4.2 4.0 (3.5-5.1) mmol/L Chloride 103 102 (98-107) mmol/L Carbon Dioxide 26 25 (22-30) mmol/L BUN 30 H 34 H (9-20) mg/dL Creatinine 1.78 H 2.08 H (0.66-1.25) mg/dL Glucose 313 H 323 H (74-99) mg/dL Calcium 8.8 8.0 L (8.4-10.2) mg/dL Adrenal panel 07/30/18 07/31/18 Range/Units 23:11 07:24 Sodium 139 135 L (137-145) mmol/L Potassium 4.2 4.0 (3.5-5.1) mmol/L Chloride 103 102 (98-107) mmol/L Carbon Dioxide 26 25 (22-30) mmol/L BUN 30 H 34 H (9-20) mg/dL Creatinine 1.78 H 2.08 H (0.66-1.25) mg/dL Glucose 313 H 323 H (74-99) mg/dL Calcium 8.8 8.0 L (8.4-10.2) mg/dL Total Bilirubin 1.4 H (0.2-1.3) mg/dL AST 348 H (17-59) U/L ALT 101 H (21-72) U/L Alkaline Phosphatase 249 H (38-126) U/L Total Protein 6.1 L (6.3-8.2) g/dL Albumin 3.4 L (3.5-5.0) g/dL Assessment and Plan Assessment: Impression: Urinary tract infection with sepsis. History of bladder cancer. coronary artery disease. Parkinson's disease Recommendation: Patient should continue on antibiotics. I will obtain a postvoid residual and if necessary place a catheter if he is not emptying his bladder adequately. I will notify of this patient's admission
[2018-07-31 11:17] LABS: Glucose,Whole Blood 331 mg/dL (75-99)
[2018-07-31] MEDS: TAMSULOSIN 0.4 MG CAP.ER.24H PO SCH (12:18)
[2018-07-31] MEDS ORDERED: SODIUM CHLORIDE 0.9% 500 ML 500 ML IV ONE (13:13)
[2018-07-31 14:47] LABS: Hemoglobin A1C 7.9 % (4.0-6.0)
[2018-07-31] MEDS ORDERED: FUROSEMIDE 10 MG/ML 4 ML VIAL IV STA (15:05)
[2018-07-31 15:23] LABS: Glucose,Whole Blood 201 mg/dL (75-99)
[2018-07-31] MEDS ORDERED: SODIUM CHLORIDE 0.9% 1,000 ML IV ONE (15:37)
[2018-07-31] MEDS ORDERED: LORazepam 2 MG/ML INJ IV STA (16:43)
[2018-07-31] MEDS: ALBUTEROL NEBULIZED 2.5 MG/3 ML INHALATION PRN ×2 (16:47→20:52)
[2018-07-31] MEDS: PIPERACILLIN-TAZOBACTAM 3.375 GM in DEXTROSE/WATER 1 50ML.BAG IVPB SCH (16:54)
[2018-07-31] MEDS: FUROSEMIDE 10 MG/ML 4 ML VIAL IV SCH ×2 (16:54→22:01)
[2018-07-31 17:13] LABS: Glucose,Whole Blood 201 mg/dL (75-99)
[2018-07-31] MEDS ORDERED: LORazepam 2 MG/ML INJ IV PRN (19:37)
[2018-07-31] MEDS ORDERED: ACETAMINOPHEN IV (For NPO) 1,000 MG in EMPTY BAG 1 BAG IVPB PRN (19:38)
[2018-07-31 20:28] LABS: Glucose,Whole Blood 190 mg/dL (75-99)
--- NOTE | 2018-07-31 23:16 | P.CONS ---
History of Present Illness - Reason for Consult Consult date: 07/31/18 - Chief Complaint weakness - History of Present Illness 78 year old maleWith history of Parkinson disease and a history of bladder cancer who recently underwent transurethral resection of the tumor. The patient had difficulties with postoperative urinary retention and had a Campuzano catheter in place. Recently a catheter was removed and the patient was having increasing difficulties with urinary retention. Because of this the patient was brought into hospital rate was having difficulties with urinary retention but also had evidence of sepsis with his fever and leukocytosis. The patient had a bladder scan that showed 120 mL's of fluid and has been seen by urology without the need for urgent interventions at this time. The patient however has ongoing sepsis with elevated lactic acid and was receiving fluid resuscitation, but was also having difficulty with some congestive heart failure. This time the patient is a poor historian but relates that he feels poorly. Review of Systems ROS unobtainable: due to mental status Past Medical History Past Medical History: Cancer, Heart Failure, COPD, Diabetes Mellitus, Thyroid Disorder Additional Past Medical History / Comment(s): HX A-FLUTTER/TACHYCARDIA, [place] W/ CARDIOVERSION, HAS BLADDER CA, CATARACTS, ABD HERNIA. PARKINSONS, DIVERTICULITIS. EDEMA FEET/LEGS,GI BLEED.DDD lower spine. Hx. of Bladder tumor. IDC removed 07-27-18. Last Myocardial Infarction Date:: UNK History of Any Multi-Drug Resistant Organisms: None Reported Past Surgical History: Adenoidectomy, Bladder Surgery, Tonsillectomy Additional Past Surgical History / Comment(s): 2013 CARDIOVERSION, SAL. BLADDER TUMOR REMOVED,cystoscopy with bladder CA TREATMENTS Past Anesthesia/Blood Transfusion Reactions: Previous Problems w/ Anesthesia Additional Past Anesthesia/Blood Transfusion Reaction / Comm: HX CLAUSTROPHOBIA Past Psychological History: Anxiety Smoking Status: Former smoker Past Alcohol Use History: None Reported Past Drug Use History: None Reported - Past Family History Father Family Medical History: Cancer Additional Family Medical History / Comment(s): SISTERS W/ BREAST CA. Mother Family Medical History: Coronary Artery Disease (CAD) Additional Family Medical History / Comment(s): Macular degeneration Sister(s) Family Medical History: Cancer Additional Family Medical History / Comment(s): breast CA Medications and Allergies Home Medications and Allergies Comment(s): Current Medications Acetaminophen (Tylenol Tab) 650 mg PO Q6HR PRN PRN Reason: Fever and/ or Pain Last Admin: 07/31/18 16:53 Dose: 650 mg Albuterol Sulfate (Ventolin Nebulized) 2.5 mg INHALATION RT-Q6H PRN PRN Reason: Dyspnea Last Admin: 07/31/18 20:52 Dose: 2.5 mg Amiodarone HCl (Cordarone) 200 mg PO QAM [facility] Last Admin: 07/31/18 08:09 Dose: Not Given Carbidopa/Levodopa (Sinemet 25-100) 2 each PO TID [facility] Last Admin: 07/31/18 16:53 Dose: 2 each Furosemide (Lasix) 40 mg IV Q12HR [facility] Last Admin: 07/31/18 22:01 Dose: 40 mg Heparin Sodium (Porcine) (Heparin) 5,000 unit SQ Q12HR [facility] Last Admin: 07/31/18 22:00 Dose: 5,000 unit Sodium Chloride (Saline 0.9%) 1,000 mls @ 20 mls/hr IV .Q24H [facility] Last Admin: 07/31/18 01:07 Dose: 20 mls/hr Piperacillin/Tazobactam/ (Dextrose 3.375 gm/ IV Solution) 50 mls @ 12.5 mls/hr IVPB Q8HR [facility] Last Admin: 07/31/18 16:54 Dose: 12.5 mls/hr Acetaminophen 1,000 mg/ IV (Solution) 100 mls @ 400 mls/hr IVPB Q6HR PRN PRN Reason: Fever Stop: 08/01/18 18:14 Last Admin: 07/31/18 21:05 Dose: 400 mls/hr Insulin Aspart (Novolog) 0 unit SQ [facility]; Protocol Last Admin: 07/31/18 21:59 Dose: 3 unit Levothyroxine Sodium (Synthroid) 88 mcg PO QAM@0630 [facility] Last Admin: 07/31/18 05:46 Dose: 88 mcg Lorazepam (Ativan) 0.5 mg IV Q6HR PRN PRN Reason: Anxiety Last Admin: 07/31/18 20:01 Dose: 0.5 mg Metoprolol Tartrate (Lopressor) 50 mg PO QAM [facility] Last Admin: 07/31/18 08:10 Dose: Not Given Naloxone HCl (Narcan) 0.2 mg IV Q2M PRN PRN Reason: Opioid Reversal Tamsulosin HCl (Flomax) 0.4 mg PO PC-BRKFST [facility] Last Admin: 07/31/18 12:18 Dose: 0.4 mg Home Medications Medication Instructions Recorded Confirmed Type Insulin Lispro Protamin/Lispro 70 - 75 unit SQ BID PRN 02/26/14 07/30/18 History [humaLOG Mix 75-25 Kwikpen] Albuterol Inhaler [Ventolin Hfa 2 puff INHALATION RT-Q6H PRN 03/15/14 07/30/18 History Inhaler] Amiodarone HCl 200 mg PO QAM 04/21/14 07/30/18 History Furosemide 40 mg PO BID 04/21/16 07/30/18 History Metoprolol Tartrate 50 mg PO QAM 04/21/16 07/30/18 History Lisinopril [Zestril] 5 mg PO QAM 06/09/16 07/30/18 History Carbidopa-Levodopa 25-100 mg 2 tab PO TID 07/08/16 07/30/18 History [Sinemet 25-100] Levothyroxine Sodium [Synthroid] 88 mcg PO QAM 07/01/18 07/30/18 History Allergies Allergy/AdvReac Type Severity Reaction Status Date / Time aspirin Allergy Swelling Verified 07/30/18 22:39 NSAIDS (Non-Steroidal Allergy Swelling Verified 07/30/18 22:39 Anti-Inflamma Physical Exam Vitals: Vital Signs Temp Pulse Pulse Resp BP BP Pulse Ox 07/31/18 21:07 76 07/31/18 20:53 71 97 07/31/18 20:10 102.4 F H 91 22 108/68 95 07/31/18 17:00 80 07/31/18 16:48 80 07/31/18 16:00 103.2 F H 79 36 H 07/31/18 15:52 79 26 H 115/55 94 L 07/31/18 15:19 74 26 H 145/66 97 07/31/18 15:16 100.1 F H 63 28 H 153/69 98 07/31/18 14:39 100.1 F H 53 L 26 H 100/42 95 07/31/18 12:53 97.9 F 58 L 22 136/52 98 07/31/18 07:00 98.6 F 66 112/56 91 L 07/31/18 05:43 100.7 F H 69 16 86/51 90 L 07/31/18 03:01 98.3 F 84 16 134/61 93 L 07/31/18 00:39 99.2 F 80 20 115/58 92 L 07/30/18 22:06 102.0 F H 84 22 164/61 96 Intake and Output 07/31/18 07/31/18 07/31/18 06:59 14:59 22:59 Intake Total 290 1050 Output Total 931 934 7899 Balance 90 -351 -250 Intake: Intake, IV Titration 1050 Amount Piperacillin-Tazobactam 3 50 .375 gm In Dextrose/Water 1 50ml.bag @ 12.5 mls/hr IVPB Q8HR [facility] Rx#: [id number] Sodium Chloride 0.9% 1, 1000 000 ml @ 500 mls/hr IV . Q2H [facility] Rx#:[id number] Oral 290 Output: Urine 060 192 1489 Stool 1 Other: Voiding Method Urinal Indwelling Catheter # Bowel Movements 1 Weight 129 kg 78-year-old male with some respiratory distress HEENT: Anicteric conjunctiva are pink and moist nasal mucosa grossly intact without significant lesions, there is no thrush. Poor dentition Neck: The neck is supple without significant lymphadenopathy or thyromegaly. Lungs: Few basilar crackles are noted no distinct dullness or egophony was noted Heart: Irregular with an audible S1 and S2 soft S4 no distinct murmur click or rub PMI was nondisplaced without heave or thrill Abdomen: Positive bowel sounds soft and nontender without palpable masses or organomegaly. There was no guarding or rebound. Extremities: The upper extremities have excellent pulses they are symmetric, no significant petechiae or telangiectasia. No splinter hemorrhages were noted. Lower extremities have bilateral edema evidence of chronic skin changes from his chronic edema with thickened dry skin no open wounds are noted at this time Neuro: The patient is arousable, is able to move his extremities but is not following commands well at this time. Results CBC & Chem 7: 07/31/18 07:24 07/31/18 07:24 Labs: Abnormal Lab Results - Last 24 Hours (Table) 07/30/18 07/30/18 07/30/18 Range/Units 22:55 23:11 23:11 WBC 11.2 H (3.8-10.6) k/uL RBC 4.00 L (4.30-5.90) m/uL Hgb 12.1 L (13.0-17.5) gm/dL Hct 36.3 L (39.0-53.0) % Plt Count 147 L (150-450) k/uL Neutrophils # 10.0 H (1.3-7.7) k/uL Lymphocytes # 0.6 L (1.0-4.8) k/uL APTT (22.0-30.0) sec Sodium (137-145) mmol/L BUN 30 H (9-20) mg/dL Creatinine 1.78 H (0.66-1.25) mg/dL Glucose 313 H (74-99) mg/dL POC Glucose (mg/dL) (75-99) mg/dL Hemoglobin A1c (4.0-6.0) % Plasma Lactic Acid Riley (0.7-2.0) mmol/L Calcium (8.4-10.2) mg/dL Total Bilirubin 1.4 H (0.2-1.3) mg/dL AST 348 H (17-59) U/L ALT 101 H (21-72) U/L Alkaline Phosphatase 249 H (38-126) U/L Total Protein 6.1 L (6.3-8.2) g/dL Albumin 3.4 L (3.5-5.0) g/dL Urine Glucose (UA) 3+ H (Negative) Urine Blood Moderate H (Negative) Ur Leukocyte Esterase Small H (Negative) Urine RBC 17 H (0-5) /hpf Urine WBC 25 H (0-5) /hpf Urine Mucus Rare H (None) /hpf 07/30/18 07/30/18 07/30/18 Range/Units 23:11 23:11 23:11 WBC (3.8-10.6) k/uL RBC (4.30-5.90) m/uL Hgb (13.0-17.5) gm/dL Hct (39.0-53.0) % Plt Count (150-450) k/uL Neutrophils # (1.3-7.7) k/uL Lymphocytes # (1.0-4.8) k/uL APTT 20.8 L (22.0-30.0) sec Sodium (137-145) mmol/L BUN (9-20) mg/dL Creatinine (0.66-1.25) mg/dL Glucose (74-99) mg/dL POC Glucose (mg/dL) (75-99) mg/dL Hemoglobin A1c 7.9 H (4.0-6.0) % Plasma Lactic Acid Riley 2.8 H* (0.7-2.0) mmol/L Calcium (8.4-10.2) mg/dL Total Bilirubin (0.2-1.3) mg/dL AST (17-59) U/L ALT (21-72) U/L Alkaline Phosphatase (38-126) U/L Total Protein (6.3-8.2) g/dL Albumin (3.5-5.0) g/dL Urine Glucose (UA) (Negative) Urine Blood (Negative) Ur Leukocyte Esterase (Negative) Urine RBC (0-5) /hpf Urine WBC (0-5) /hpf Urine Mucus (None) /hpf 07/31/18 07/31/18 07/31/18 Range/Units 03:51 06:54 07:24 WBC (3.8-10.6) k/uL RBC (4.30-5.90) m/uL Hgb (13.0-17.5) gm/dL Hct (39.0-53.0) % Plt Count (150-450) k/uL Neutrophils # (1.3-7.7) k/uL Lymphocytes # (1.0-4.8) k/uL APTT (22.0-30.0) sec Sodium (137-145) mmol/L BUN (9-20) mg/dL Creatinine (0.66-1.25) mg/dL Glucose (74-99) mg/dL POC Glucose (mg/dL) 344 H (75-99) mg/dL Hemoglobin A1c (4.0-6.0) % Plasma Lactic Acid Riley 2.1 H* 2.3 H* (0.7-2.0) mmol/L Calcium (8.4-10.2) mg/dL Total Bilirubin (0.2-1.3) mg/dL AST (17-59) U/L ALT (21-72) U/L Alkaline Phosphatase (38-126) U/L Total Protein (6.3-8.2) g/dL Albumin (3.5-5.0) g/dL Urine Glucose (UA) (Negative) Urine Blood (Negative) Ur Leukocyte Esterase (Negative) Urine RBC (0-5) /hpf Urine WBC (0-5) /hpf Urine Mucus (None) /hpf 07/31/18 07/31/18 07/31/18 Range/Units 07:24 07:24 11:16 WBC 13.6 H (3.8-10.6) k/uL RBC 3.40 L (4.30-5.90) m/uL Hgb 10.7 L (13.0-17.5) gm/dL Hct 31.3 L (39.0-53.0) % Plt Count 143 L (150-450) k/uL Neutrophils # 12.3 H (1.3-7.7) k/uL Lymphocytes # 0.7 L (1.0-4.8) k/uL APTT (22.0-30.0) sec Sodium 135 L (137-145) mmol/L BUN 34 H (9-20) mg/dL Creatinine 2.08 H (0.66-1.25) mg/dL Glucose 323 H (74-99) mg/dL POC Glucose (mg/dL) 331 H (75-99) mg/dL Hemoglobin A1c (4.0-6.0) % Plasma Lactic Acid Riley (0.7-2.0) mmol/L Calcium 8.0 L (8.4-10.2) mg/dL Total Bilirubin (0.2-1.3) mg/dL AST (17-59) U/L ALT (21-72) U/L Alkaline Phosphatase (38-126) U/L Total Protein (6.3-8.2) g/dL Albumin (3.5-5.0) g/dL Urine Glucose (UA) (Negative) Urine Blood (Negative) Ur Leukocyte Esterase (Negative) Urine RBC (0-5) /hpf Urine WBC (0-5) /hpf Urine Mucus (None) /hpf 07/31/18 07/31/18 07/31/18 Range/Units 12:36 15:21 16:54 WBC (3.8-10.6) k/uL RBC (4.30-5.90) m/uL Hgb (13.0-17.5) gm/dL Hct (39.0-53.0) % Plt Count (150-450) k/uL Neutrophils # (1.3-7.7) k/uL Lymphocytes # (1.0-4.8) k/uL APTT (22.0-30.0) sec Sodium (137-145) mmol/L BUN (9-20) mg/dL Creatinine (0.66-1.25) mg/dL Glucose (74-99) mg/dL POC Glucose (mg/dL) 201 H 201 H (75-99) mg/dL Hemoglobin A1c (4.0-6.0) % Plasma Lactic Acid Riley 2.9 H* (0.7-2.0) mmol/L Calcium (8.4-10.2) mg/dL Total Bilirubin (0.2-1.3) mg/dL AST (17-59) U/L ALT (21-72) U/L Alkaline Phosphatase (38-126) U/L Total Protein (6.3-8.2) g/dL Albumin (3.5-5.0) g/dL Urine Glucose (UA) (Negative) Urine Blood (Negative) Ur Leukocyte Esterase (Negative) Urine RBC (0-5) /hpf Urine WBC (0-5) /hpf Urine Mucus (None) /hpf 07/31/18 07/31/18 Range/Units 16:56 20:27 WBC (3.8-10.6) k/uL RBC (4.30-5.90) m/uL Hgb (13.0-17.5) gm/dL Hct (39.0-53.0) % Plt Count (150-450) k/uL Neutrophils # (1.3-7.7) k/uL Lymphocytes # (1.0-4.8) k/uL APTT (22.0-30.0) sec Sodium (137-145) mmol/L BUN (9-20) mg/dL Creatinine (0.66-1.25) mg/dL Glucose (74-99) mg/dL POC Glucose (mg/dL) 190 H (75-99) mg/dL Hemoglobin A1c (4.0-6.0) % Plasma Lactic Acid Riley 4.1 H* (0.7-2.0) mmol/L Calcium (8.4-10.2) mg/dL Total Bilirubin (0.2-1.3) mg/dL AST (17-59) U/L ALT (21-72) U/L Alkaline Phosphatase (38-126) U/L Total Protein (6.3-8.2) g/dL Albumin (3.5-5.0) g/dL Urine Glucose (UA) (Negative) Urine Blood (Negative) Ur Leukocyte Esterase (Negative) Urine RBC (0-5) /hpf Urine WBC (0-5) /hpf Urine Mucus (None) /hpf Microbiology - Last 24 Hours (Table) 07/30/18 23:11 Blood Culture Gram Stain - Preliminary Blood 07/30/18 23:11 Blood Culture - Final Blood 07/30/18 22:55 Urine Culture - Preliminary Urine,Clean Catch Laboratory Results WBC 13.6 k/uL (3.8-10.6) H 07/31/18 07:24 RBC 3.40 m/uL (4.30-5.90) L 07/31/18 07:24 Hgb 10.7 gm/dL (13.0-17.5) L 07/31/18 07:24 Hct 31.3 % (39.0-53.0) L 07/31/18 07:24 MCV 91.9 fL (80.0-100.0) 07/31/18 07:24 MCH 31.5 pg (25.0-35.0) 07/31/18 07:24 MCHC 34.3 g/dL (31.0-37.0) 07/31/18 07:24 RDW 13.3 % (11.5-15.5) 07/31/18 07:24 Plt Count 143 k/uL (150-450) L 07/31/18 07:24 Neutrophils % 90 % 07/31/18 07:24 Lymphocytes % 5 % 07/31/18 07:24 Monocytes % 4 % 07/31/18 07:24 Eosinophils % 0 % 07/31/18 07:24 Basophils % 0 % 07/31/18 07:24 Neutrophils # 12.3 k/uL (1.3-7.7) H 07/31/18 07:24 Lymphocytes # 0.7 k/uL (1.0-4.8) L 07/31/18 07:24 Monocytes # 0.6 k/uL (0-1.0) 07/31/18 07:24 Eosinophils # 0.0 k/uL (0-0.7) 07/31/18 07:24 Basophils # 0.0 k/uL (0-0.2) 07/31/18 07:24 PT 10.4 sec (9.0-12.0) 07/30/18 23:11 INR 1.1 (<1.2) 07/30/18 23:11 APTT 20.8 sec (22.0-30.0) L 07/30/18 23:11 Sodium 135 mmol/L (137-145) L 07/31/18 07:24 Potassium 4.0 mmol/L (3.5-5.1) 07/31/18 07:24 Chloride 102 mmol/L (98-107) 07/31/18 07:24 Carbon Dioxide 25 mmol/L (22-30) 07/31/18 07:24 Anion Gap 8 mmol/L 07/31/18 07:24 BUN 34 mg/dL (9-20) H 07/31/18 07:24 Creatinine 2.08 mg/dL (0.66-1.25) H 07/31/18 07:24 Est GFR (CKD-EPI)AfAm 34 (>60 ml/min/1.73 sqM) 07/31/18 07:24 Est GFR (CKD-EPI)NonAf 30 (>60 ml/min/1.73 sqM) 07/31/18 07:24 Glucose 323 mg/dL (74-99) H 07/31/18 07:24 POC Glucose (mg/dL) 190 mg/dL (75-99) H 07/31/18 20:27 POC Glu Service Counter Cashier ID Elvira Pichardo 07/31/18 20:[address] Glu mg/dL 180 07/30/18 23:11 Hemoglobin A1c 7.9 % (4.0-6.0) H 07/30/18 23:11 Lactic Ac Sepsis Rflx Y 07/31/18 13:03 Plasma Lactic Acid Riley 4.1 mmol/L (0.7-2.0) H* 07/31/18 16:56 Calcium 8.0 mg/dL (8.4-10.2) L 07/31/18 07:24 Total Bilirubin 1.4 mg/dL (0.2-1.3) H 07/30/18 23:11 AST 348 U/L (17-59) H 07/30/18 23:11 ALT 101 U/L (21-72) H 07/30/18 23:11 Alkaline Phosphatase 249 U/L (38-126) H 07/30/18 23:11 Troponin I 0.034 ng/mL (0.000-0.034) 07/30/18 23:11 NT-Pro-B Natriuret Pep 4420 pg/mL 07/31/18 07:24 Total Protein 6.1 g/dL (6.3-8.2) L 07/30/18 23:11 Albumin 3.4 g/dL (3.5-5.0) L 07/30/18 23:11 Urine Color Yellow 07/30/18 22:55 Urine Appearance Clear (Clear) 07/30/18 22:55 Urine pH 5.0 (5.0-8.0) 07/30/18 22:55 Ur Specific [place] 1.009 (1.001-1.035) 07/30/18 22:55 Urine Protein Negative (Negative) 07/30/18 22:55 Urine Glucose (UA) 3+ (Negative) H 07/30/18 22:55 Urine Ketones Negative (Negative) 07/30/18 22:55 Urine Blood Moderate (Negative) H 07/30/18 22:55 Urine Nitrite Negative (Negative) 07/30/18 22:55 Urine Bilirubin Negative (Negative) 07/30/18 22:55 Urine Urobilinogen <2.0 mg/dL (<2.0) 07/30/18 22:55 Ur Leukocyte Esterase Small (Negative) H 07/30/18 22:55 Urine RBC 17 /hpf (0-5) H 07/30/18 22:55 Urine WBC 25 /hpf (0-5) H 07/30/18 22:55 Urine Mucus Rare /hpf (None) H 07/30/18 22:55 Microbiology 07/30/18 23:11 Blood Blood Culture Gram Stain - Preliminary 07/30/18 23:11 Blood Blood Culture - Preliminary Gram Neg Bacilli 07/30/18 23:11 Blood Blood Culture - Final 07/30/18 22:55 Urine,Clean Catch Urine Culture - Preliminary Assessment and Plan (1) Urinary tract infection Current Visit: Yes Status: Acute Code(s): N39.0 - URINARY TRACT INFECTION, SITE NOT SPECIFIED SNOMED Code(s): 36573514 (2) Sepsis Current Visit: Yes Status: Acute Code(s): A41.9 - SEPSIS, UNSPECIFIED ORGANISM SNOMED Code(s): 89701667 (3) Gram-negative bacteremia Narrative/Plan: 78-year-old male with history of Parkinson's disease, bladder cancer with recent transurethral resection presents to Hospital of evidence of urinary retention, and gram-negative sepsis. Patient's records are reviewed and there is a history of prior E. coli as well as Staphylococcus epidermidis in his urine both susceptible to Zosyn a history of highly resistant organisms. We'll continue Zosyn for now while cultures are in process. Adjust the antibiotics as indicated. At this time the patient is having some difficulties with respiratory distress and additional Lasix is given however the patient is having an elevated lactic acid continues to need fluid resuscitation. Constantly fluids will be given and will utilize Lasix to help with his pulmonary status. The patient is quite ill and the nursing staff is discussing the care with the primary care service. Current Visit: Yes Status: Acute Code(s): R78.81 - BACTEREMIA SNOMED Code( s): 596121907256
[2018-08-01] MEDS: CARBIDOPA-LEVODOPA 25-100 MG 1 EACH TAB PO SCH ×4 (02:18→20:16)
[2018-08-01] MEDS: SODIUM CHLORIDE 0.9% 1,000 ML IV SCH ×2 (02:21→23:32)
[2018-08-01] MEDS: PIPERACILLIN-TAZOBACTAM 3.375 GM in DEXTROSE/WATER 1 50ML.BAG IVPB SCH ×4 (02:21→23:31)
[2018-08-01 05:58] LABS: Glucose,Whole Blood 239 mg/dL (75-99)
[2018-08-01 06:17] LABS: Basophils % (A) 0 %; Eosinophils # (A) 0.1 k/uL (0-0.7); Eosinophils % (A) 1 %; HCT 30.2 % (39.0-53.0); HGB 10.2 gm/dL (13.0-17.5); Lymphocytes # (A) 1.1 k/uL (1.0-4.8); Lymphocytes % (A) 13 %; MCH 30.7 pg (25.0-35.0); MCHC 33.7 g/dL (31.0-37.0); MCV 91.1 fL (80.0-100.0); Mean Platelet Volume 8.9; Monocytes # (A) 0.5 k/uL (0-1.0); Monocytes % (A) 5 %; Neutrophils # (A) 7.1 k/uL (1.3-7.7); Neutrophils % (A) 80 %; Platelet Count 115 k/uL (150-450); RBC 3.31 m/uL (4.30-5.90); RDW 13.6 % (11.5-15.5); WBC 8.8 k/uL (3.8-10.6)
[2018-08-01] MEDS: LEVOTHYROXINE 88 MCG TAB PO SCH (06:24)
[2018-08-01] MEDS: INSULIN ASPART 100 UNIT/ML 1 ML 10 ML VIAL SQ SCH ×4 (06:24→20:47)
[2018-08-01 06:28] LABS: Calcium 7.4 mg/dL (8.4-10.2); Potassium 3.8 mmol/L (3.5-5.1)
--- NOTE | 2018-08-01 08:22 | P.PN ---
Subjective Progress Note Date: 08/01/18 The patient white count is down to 11,000. He is voiding okay. From urologic standpoint he can be discharged when the cultures back. Objective - Vital Signs Vital signs: Vital Signs Temp 97.1 F L 08/01/18 06:17 Pulse 68 08/01/18 06:17 Resp 17 08/01/18 06:17 BP 120/57 08/01/18 06:17 Pulse Ox 96 08/01/18 06:17 Intake & Output 07/31/18 08/01/18 08/01/18 18:59 06:59 18:59 Intake Total 1050 Output Total 1651 1003 Balance -1651 47 Intake: Intake, IV Titration 1050 Amount Piperacillin-Tazobactam 3 50 .375 gm In Dextrose/Water 1 50ml.bag @ 12.5 mls/hr IVPB Q8HR [facility] Rx#: [id number] Sodium Chloride 0.9% 1, 1000 000 ml @ 500 mls/hr IV . Q2H [facility] Rx#:[id number] Output: Urine 1650 1000 Stool 1 3 Other: Voiding Method Indwelling Catheter Indwelling Catheter # Bowel Movements 1 - Labs CBC & Chem 7: 08/01/18 05:58 08/01/18 05:58 Labs: Abnormal Lab Results - Last 24 Hours (Table) 07/30/18 07/31/18 07/31/18 Range/Units 23:11 07:24 11:16 RBC (4.30-5.90) m/uL Hgb (13.0-17.5) gm/dL Hct (39.0-53.0) % Plt Count (150-450) k/uL Sodium (137-145) mmol/L Carbon Dioxide (22-30) mmol/L BUN (9-20) mg/dL Creatinine (0.66-1.25) mg/dL Glucose (74-99) mg/dL POC Glucose (mg/dL) 331 H (75-99) mg/dL Hemoglobin A1c 7.9 H (4.0-6.0) % Plasma Lactic Acid Riley 2.3 H* (0.7-2.0) mmol/L Calcium (8.4-10.2) mg/dL 07/31/18 07/31/18 07/31/18 Range/Units 12:36 15:21 16:54 RBC (4.30-5.90) m/uL Hgb (13.0-17.5) gm/dL Hct (39.0-53.0) % Plt Count (150-450) k/uL Sodium (137-145) mmol/L Carbon Dioxide (22-30) mmol/L BUN (9-20) mg/dL Creatinine (0.66-1.25) mg/dL Glucose (74-99) mg/dL POC Glucose (mg/dL) 201 H 201 H (75-99) mg/dL Hemoglobin A1c (4.0-6.0) % Plasma Lactic Acid Riley 2.9 H* (0.7-2.0) mmol/L Calcium (8.4-10.2) mg/dL 07/31/18 07/31/18 08/01/18 Range/Units 16:56 20:27 01:58 RBC (4.30-5.90) m/uL Hgb (13.0-17.5) gm/dL Hct (39.0-53.0) % Plt Count (150-450) k/uL Sodium (137-145) mmol/L Carbon Dioxide (22-30) mmol/L BUN (9-20) mg/dL Creatinine (0.66-1.25) mg/dL Glucose (74-99) mg/dL POC Glucose (mg/dL) 190 H (75-99) mg/dL Hemoglobin A1c (4.0-6.0) % Plasma Lactic Acid Riley 4.1 H* 2.1 H* (0.7-2.0) mmol/L Calcium (8.4-10.2) mg/dL 08/01/18 08/01/18 08/01/18 Range/Units 05:24 05:58 05:58 RBC 3.31 L (4.30-5.90) m/uL Hgb 10.2 L (13.0-17.5) gm/dL Hct 30.2 L (39.0-53.0) % Plt Count 115 L (150-450) k/uL Sodium 135 L (137-145) mmol/L Carbon Dioxide 21 L (22-30) mmol/L BUN 39 H (9-20) mg/dL Creatinine 2.18 H (0.66-1.25) mg/dL Glucose 225 H (74-99) mg/dL POC Glucose (mg/dL) 239 H (75-99) mg/dL Hemoglobin A1c (4.0-6.0) % Plasma Lactic Acid Riley (0.7-2.0) mmol/L Calcium 7.4 L (8.4-10.2) mg/dL Microbiology - Last 24 Hours (Table) 07/30/18 22:55 Urine Culture - Final Urine,Clean Catch 07/30/18 23:11 Blood Culture Gram Stain - Preliminary Blood Blood Culture - Preliminary Gram Neg Bacilli 07/30/18 23:11 Blood Culture - Final Blood
[2018-08-01] MEDS: AMIODARONE 200 MG TAB PO SCH (09:14)
[2018-08-01] MEDS: HEPARIN SODIUM,PORCINE 5,000 UNIT/ML 1 ML VIAL SQ SCH ×2 (09:14→20:16)
[2018-08-01] MEDS: TAMSULOSIN 0.4 MG CAP.ER.24H PO SCH (09:14)
[2018-08-01] MEDS: METOPROLOL TARTRATE 50 MG TAB PO SCH (09:15)
--- NOTE | 2018-08-01 09:27 | XR ---
EXAMINATION TYPE: XR chest 1V DATE OF EXAM: 08/01/2018 HISTORY: CHF. REFERENCE: Previous study dated 07/31/2018. FINDINGS: The heart is enlarged. There are small, bilateral effusions. There continues to be subtle i nterstitial change. IMPRESSION: CONTINUING CHANGES OF HEART FAILURE.
--- NOTE | 2018-08-01 09:42 | P.HPIM ---
History of Present Illness H&P Date: 07/31/18 Chief Complaint: weakness 78-year-old gentleman admitted to the hospital with a urinary tract infection with sepsis. The patient is known to for recurrent superficial bladder cancer. He apparently had a resection in the end of June. The catheter was removed several days later. Apparently he has been having problems urinating and had another catheter. It was removed a few days ago. He developed lethargy fever and chills. He was brought to the emergency room. He is found to have an elevated white count and lactic acidosis and infected looking urine. He was admitted for a urinary tract infection with sepsis. patient was started on IV Rocephin from ED; white count the floor patient became hypotensive with elevated temp and up trending lactic acid level and blood culture positive for gram-negative bacilli; patient's antibiotics were changed to IV Zosyn and was transferred to intensive care unit with diagnosis of sepsis and bacteremia Review of Systems ROS unobtainable: due to mental status Past Medical History Past Medical History: Cancer, Heart Failure, COPD, Diabetes Mellitus, Thyroid Disorder Additional Past Medical History / Comment(s): HX A-FLUTTER/TACHYCARDIA, TX W/ CARDIOVERSION, HAS BLADDER CA, CATARACTS, ABD HERNIA. PARKINSONS, DIVERTICULITIS. EDEMA FEET/LEGS,GI BLEED.DDD lower spine. Hx. of Bladder tumor. IDC removed 07-27-18. Last Myocardial Infarction Date:: UNK History of Any Multi-Drug Resistant Organisms: None Reported Past Surgical History: Adenoidectomy, Bladder Surgery, Tonsillectomy Additional Past Surgical History / Comment(s): 2013 CARDIOVERSION, SAL. BLADDER TUMOR REMOVED,cystoscopy with bladder CA TREATMENTS Past Anesthesia/Blood Transfusion Reactions: Previous Problems w/ Anesthesia Additional Past Anesthesia/Blood Transfusion Reaction / Comment(s): HX CLAUSTROPHOBIA Past Psychological History: Anxiety Smoking Status: Former smoker Past Alcohol Use History: None Reported Past Drug Use History: None Reported - Past Family History Father Family Medical History: Cancer Additional Family Medical History / Comment(s): SISTERS W/ BREAST CA. Mother Family Medical History: Coronary Artery Disease (CAD) Additional Family Medical History / Comment(s): Macular degeneration Sister(s) Family Medical History: Cancer Additional Family Medical History / Comment(s): breast CA Medications and Allergies Home Medications Medication Instructions Recorded Confirmed Type Insulin Lispro Protamin/Lispro 70 - 75 unit SQ BID PRN 02/26/14 07/30/18 History [humaLOG Mix 75-25 Kwikpen] Albuterol Inhaler [Ventolin Hfa 2 puff INHALATION RT-Q6H PRN 03/15/14 07/30/18 History Inhaler] Amiodarone HCl 200 mg PO QAM 04/21/14 07/30/18 History Furosemide 40 mg PO BID 04/21/16 07/30/18 History Metoprolol Tartrate 50 mg PO QAM 04/21/16 07/30/18 History Lisinopril [Zestril] 5 mg PO QAM 06/09/16 07/30/18 History Carbidopa-Levodopa 25-100 mg 2 tab PO TID 07/08/16 07/30/18 History [Sinemet 25-100] Levothyroxine Sodium [Synthroid] 88 mcg PO QAM 07/01/18 07/30/18 History Allergies Allergy/AdvReac Type Severity Reaction Status Date / Time aspirin Allergy Swelling Verified 07/30/18 22:39 NSAIDS (Non-Steroidal Allergy Swelling Verified 07/30/18 22:39 Anti-Inflamma Physical Exam Vitals: Vital Signs Temp Pulse Pulse Resp BP BP Pulse Ox 07/31/18 12:53 97.9 F 58 L 22 136/52 98 07/31/18 07:00 98.6 F 66 112/56 91 L 07/31/18 05:43 100.7 F H 69 16 86/51 90 L 07/31/18 03:01 98.3 F 84 16 134/61 93 L 07/31/18 00:39 99.2 F 80 20 115/58 92 L 07/30/18 22:06 102.0 F H 84 22 164/61 96 Intake and Output 07/30/18 07/31/18 07/31/18 22:59 06:59 14:59 Intake Total 290 Output Total 200 351 Balance 90 -351 Intake: Oral 290 Output: Urine 200 350 Stool 1 Other: Voiding Method Incontinent Urinal # Bowel Movements 1 Weight 127.459 kg 129 kg - Constitutional General appearance: Present: average body habitus, cooperative, no acute distress - EENT Eyes: Present: anicteric sclerae, EOMI, PERRLA, normal appearance ENT: Present: hearing grossly normal, normal oropharynx Ears: bilateral: normal - Neck Neck: Present: normal ROM. Absent: lymphadenopathy, rigidity, thyromegaly Carotids: negative: bruit present Thyroid: bilateral: normal size, negative: enlarged, nodule - Respiratory Respiratory: bilateral: CTA, negative: rales, rhonchi, wheezing - Cardiovascular Rhythm: regular Heart sounds: normal: S1, S2 Abnormal Heart Sounds: Absent: systolic murmur, diastolic murmur - Gastrointestinal General gastrointestinal: Present: normal bowel sounds, soft. Absent: distended , organomegaly, tenderness - Genitourinary Genitourinary Comment(s): deferred - Integumentary Integumentary: Chronic skin changes and bilateral lower extremity - Neurologic Neurologic: Present: CNII-XII intact. Absent: focal deficits; pronounced tremors in upper extremities - Musculoskeletal Musculoskeletal: Present: gait normal, strength equal bilaterally - Psychiatric Psychiatric: Present: A&O to place and person but somewhat confused about events leading up to hospitalization and past medical history Results CBC & Chem 7: 08/01/18 05:58 08/01/18 05:58 Labs: Abnormal Lab Results - Last 24 Hours (Table) 07/30/18 07/30/18 07/30/18 Range/Units 22:55 23:11 23:11 WBC 11.2 H (3.8-10.6) k/uL RBC 4.00 L (4.30-5.90) m/uL Hgb 12.1 L (13.0-17.5) gm/dL Hct 36.3 L (39.0-53.0) % Plt Count 147 L (150-450) k/uL Neutrophils # 10.0 H (1.3-7.7) k/uL Lymphocytes # 0.6 L (1.0-4.8) k/uL APTT (22.0-30.0) sec Sodium (137-145) mmol/L BUN 30 H (9-20) mg/dL Creatinine 1.78 H (0.66-1.25) mg/dL Glucose 313 H (74-99) mg/dL POC Glucose (mg/dL) (75-99) mg/dL Plasma Lactic Acid Riley (0.7-2.0) mmol/L Calcium (8.4-10.2) mg/dL Total Bilirubin 1.4 H (0.2-1.3) mg/dL AST 348 H (17-59) U/L ALT 101 H (21-72) U/L Alkaline Phosphatase 249 H (38-126) U/L Total Protein 6.1 L (6.3-8.2) g/dL Albumin 3.4 L (3.5-5.0) g/dL Urine Glucose (UA) 3+ H (Negative) Urine Blood Moderate H (Negative) Ur Leukocyte Esterase Small H (Negative) Urine RBC 17 H (0-5) /hpf Urine WBC 25 H (0-5) /hpf Urine Mucus Rare H (None) /hpf 07/30/18 07/30/18 07/31/18 Range/Units 23:11 23:11 03:51 WBC (3.8-10.6) k/uL RBC (4.30-5.90) m/uL Hgb (13.0-17.5) gm/dL Hct (39.0-53.0) % Plt Count (150-450) k/uL Neutrophils # (1.3-7.7) k/uL Lymphocytes # (1.0-4.8) k/uL APTT 20.8 L (22.0-30.0) sec Sodium (137-145) mmol/L BUN (9-20) mg/dL Creatinine (0.66-1.25) mg/dL Glucose (74-99) mg/dL POC Glucose (mg/dL) (75-99) mg/dL Plasma Lactic Acid Riley 2.8 H* 2.1 H* (0.7-2.0) mmol/L Calcium (8.4-10.2) mg/dL Total Bilirubin (0.2-1.3) mg/dL AST (17-59) U/L ALT (21-72) U/L Alkaline Phosphatase (38-126) U/L Total Protein (6.3-8.2) g/dL Albumin (3.5-5.0) g/dL Urine Glucose (UA) (Negative) Urine Blood (Negative) Ur Leukocyte Esterase (Negative) Urine RBC (0-5) /hpf Urine WBC (0-5) /hpf Urine Mucus (None) /hpf 10/20/18 10/20/18 10/20/18 Range/Units 06:54 07:24 07:24 WBC 13.6 H (3.8-10.6) k/uL RBC 3.40 L (4.30-5.90) m/uL Hgb 10.7 L (13.0-17.5) gm/dL Hct 31.3 L (39.0-53.0) % Plt Count 143 L (150-450) k/uL Neutrophils # 12.3 H (1.3-7.7) k/uL Lymphocytes # 0.7 L (1.0-4.8) k/uL APTT (22.0-30.0) sec Sodium (137-145) mmol/L BUN (9-20) mg/dL Creatinine (0.66-1.25) mg/dL Glucose (74-99) mg/dL POC Glucose (mg/dL) 344 H (75-99) mg/dL Plasma Lactic Acid Riley 2.3 H* (0.7-2.0) mmol/L Calcium (8.4-10.2) mg/dL Total Bilirubin (0.2-1.3) mg/dL AST (17-59) U/L ALT (21-72) U/L Alkaline Phosphatase (38-126) U/L Total Protein (6.3-8.2) g/dL Albumin (3.5-5.0) g/dL Urine Glucose (UA) (Negative) Urine Blood (Negative) Ur Leukocyte Esterase (Negative) Urine RBC (0-5) /hpf Urine WBC (0-5) /hpf Urine Mucus (None) /hpf 07/31/18 07/31/18 07/31/18 Range/Units 07:24 11:16 12:36 WBC (3.8-10.6) k/uL RBC (4.30-5.90) m/uL Hgb (13.0-17.5) gm/dL Hct (39.0-53.0) % Plt Count (150-450) k/uL Neutrophils # (1.3-7.7) k/uL Lymphocytes # (1.0-4.8) k/uL APTT (22.0-30.0) sec Sodium 135 L (137-145) mmol/L BUN 34 H (9-20) mg/dL Creatinine 2.08 H (0.66-1.25) mg/dL Glucose 323 H (74-99) mg/dL POC Glucose (mg/dL) 331 H (75-99) mg/dL Plasma Lactic Acid Riley 2.9 H* (0.7-2.0) mmol/L Calcium 8.0 L (8.4-10.2) mg/dL Total Bilirubin (0.2-1.3) mg/dL AST (17-59) U/L ALT (21-72) U/L Alkaline Phosphatase (38-126) U/L Total Protein (6.3-8.2) g/dL Albumin (3.5-5.0) g/dL Urine Glucose (UA) (Negative) Urine Blood (Negative) Ur Leukocyte Esterase (Negative) Urine RBC (0-5) /hpf Urine WBC (0-5) /hpf Urine Mucus (None) /hpf Microbiology - Last 24 Hours (Table) 07/30/18 22:55 Urine Culture - Preliminary Urine,Clean Catch Thrombosis Risk Factor Assmnt - Choose All That Apply Any of the Below Risk Factors Present?: Yes Each Factor Represents 1 point: Abnormal pulmonary function (COPD), Obesity ( BMI >25), Swollen legs (current) Other Risk Factors: Yes Each Risk Factor Represents 3 Points: Age 75 years or older Thrombosis Risk Factor Assessment Total Risk Factor Score: 6 Thrombosis Risk Factor Assessment Level: High Risk Assessment and Plan Assessment: 1. Sepsis/ gram-negative bacteremia - We will transfer patient to Intensive care unit for close monitoring - DC Rocephin and start patient on IV Zosyn 3.375 g every 6 hours - IV fluids were given per sepsis protocol by rapid response team; we will continue to trend lactic acid level and adjust IV fluids accordingly - ID is consulted; recommendations are pending; we appreciate their expertise and management of this patient 2. UTI; As above continue IV Zosyn. Final urine culture is available 3. Acute renal failure - We will start patient on slow IV fluid hydration - We will monitor renal function, electrolytes, strict SAMPSON's and daily weights - Avoid nephrotoxins and hypotension - We will consult nephrology if renal function continues to worsen 4. Acute exacerbation CHF - patient was given Lasix 40 mg IV push - We will monitor strict SAMPSON's and daily weights; recommend low-salt diet with fluid restriction - Patient does have a history of congestive heart failure; no echocardiogram is available; we recommend 2-D echo once patient is stable 5. 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 Hypothyroidism; we will continue with home dose of levothyroxine 88 MCG daily 7. Hypertension; - As above; patient is having episodes of hypotension; we will hold off on home antihypertensive therapy until blood pressures improved 8. DVT prophylaxis; Subcu heparin 5000 units every 12 hours CODE STATUS; full code
[2018-08-01] MEDS: traMADol 50 MG TAB PO PRN ×2 (10:13→22:10)
--- NOTE | 2018-08-01 10:23 | P.PN ---
Subjective Patient is admitted for urinary tract infection does have a Campuzano catheter had superficial bladder cancer for which patient underwent urological procedure and underwent transurethral resection of prostate. Patient was septic with lactic is doses because of which patient was given IV fluids resulting in hypoxemia. Patient hypoxemia improved patient is getting both Lasix and IV fluids both of which will be discontinued his last 2 lactic acid is 1.2 patient although has significant pedal edema patient had ejection fraction of 55% during his previous hospitalization. I was told patient was having brief episodes of A. fib we'll continue to monitor if he goes into A. fib then patient will be evaluated for possibility of anticoagulation at that time patient remains to have Campuzano catheter. Patient is presently on Zosyn urine cultures positive for gram-negative bacilli and staph epidermidis. Infectious disease following the patient. Obtain the chest x-ray which showed small bilateral pleural effusions consistent with heart failure since his vitals are stable now on hold off on the diuretic therapy as there is worsening creatinine. Constitutional: Denied any fatigue denied any fever. Cardio vascular: denied any chest pain, palpitations Gastrointestinal denied any nausea vomiting Pulmonary: Denied any shortness of breath cough Neurologic denied any new focal deficits Objective - Vital Signs Vital signs: Vital Signs Temp 97.7 F 08/01/18 08:00 Pulse 69 08/01/18 08:00 Resp 18 08/01/18 08:00 BP 139/98 08/01/18 08:00 Pulse Ox 98 08/01/18 08:00 Intake & Output 07/31/18 08/01/18 08/01/18 18:59 06:59 18:59 Intake Total 1050 180 Output Total 1651 1003 Balance -1651 47 180 Intake: Intake, IV Titration 1050 Amount Piperacillin-Tazobactam 3 50 .375 gm In Dextrose/Water 1 50ml.bag @ 12.5 mls/hr IVPB Q8HR [facility] Rx#: [id number] Sodium Chloride 0.9% 1, 1000 000 ml @ 500 mls/hr IV . Q2H [facility] Rx#:[id number] Oral 180 Output: Urine 1650 1000 Stool 1 3 Other: Voiding Method Indwelling Catheter Indwelling Catheter # Bowel Movements 1 - Exam PHYSICAL EXAMINATION: GENERAL: The patient is alert and oriented x3, not in any acute distress. Morbidly obese HEENT: Pupils are round and equally reacting to light. EOMI. No scleral icterus. No conjunctival pallor. Normocephalic, atraumatic. No pharyngeal erythema. No thyromegaly. CARDIOVASCULAR: S1 and S2 present. No murmurs, rubs, or gallops. PULMONARY: Chest is clear to auscultation, no wheezing or crackles. ABDOMEN: Soft, nontender, nondistended, normoactive bowel sounds. No palpable organomegaly. MUSCULOSKELETAL: No joint swelling or deformity. EXTREMITIES: No cyanosis, clubbing, patient has 3+ pedal edema NEUROLOGICAL: Gross neurological examination did not reveal any focal deficits. SKIN: No rashes. - Labs CBC & Chem 7: 08/01/18 05:58 08/01/18 05:58 Labs: Abnormal Lab Results - Last 24 Hours (Table) 07/30/18 07/31/18 07/31/18 Range/Units 23:11 11:16 12:36 RBC (4.30-5.90) m/uL Hgb (13.0-17.5) gm/dL Hct (39.0-53.0) % Plt Count (150-450) k/uL Sodium (137-145) mmol/L Carbon Dioxide (22-30) mmol/L BUN (9-20) mg/dL Creatinine (0.66-1.25) mg/dL Glucose (74-99) mg/dL POC Glucose (mg/dL) 331 H (75-99) mg/dL Hemoglobin A1c 7.9 H (4.0-6.0) % Plasma Lactic Acid Riley 2.9 H* (0.7-2.0) mmol/L Calcium (8.4-10.2) mg/dL 07/31/18 07/31/18 07/31/18 Range/Units 15:21 16:54 16:56 RBC (4.30-5.90) m/uL Hgb (13.0-17.5) gm/dL Hct (39.0-53.0) % Plt Count (150-450) k/uL Sodium (137-145) mmol/L Carbon Dioxide (22-30) mmol/L BUN (9-20) mg/dL Creatinine (0.66-1.25) mg/dL Glucose (74-99) mg/dL POC Glucose (mg/dL) 201 H 201 H (75-99) mg/dL Hemoglobin A1c (4.0-6.0) % Plasma Lactic Acid Riley 4.1 H* (0.7-2.0) mmol/L Calcium (8.4-10.2) mg/dL 07/31/18 08/01/18 08/01/18 Range/Units 20:27 01:58 05:24 RBC (4.30-5.90) m/uL Hgb (13.0-17.5) gm/dL Hct (39.0-53.0) % Plt Count (150-450) k/uL Sodium (137-145) mmol/L Carbon Dioxide (22-30) mmol/L BUN (9-20) mg/dL Creatinine (0.66-1.25) mg/dL Glucose (74-99) mg/dL POC Glucose (mg/dL) 190 H 239 H (75-99) mg/dL Hemoglobin A1c (4.0-6.0) % Plasma Lactic Acid Riley 2.1 H* (0.7-2.0) mmol/L Calcium (8.4-10.2) mg/dL 08/01/18 08/01/18 Range/Units 05:58 05:58 RBC 3.31 L (4.30-5.90) m/uL Hgb 10.2 L (13.0-17.5) gm/dL Hct 30.2 L (39.0-53.0) % Plt Count 115 L (150-450) k/uL Sodium 135 L (137-145) mmol/L Carbon Dioxide 21 L (22-30) mmol/L BUN 39 H (9-20) mg/dL Creatinine 2.18 H (0.66-1.25) mg/dL Glucose 225 H (74-99) mg/dL POC Glucose (mg/dL) (75-99) mg/dL Hemoglobin A1c (4.0-6.0) % Plasma Lactic Acid Riley (0.7-2.0) mmol/L Calcium 7.4 L (8.4-10.2) mg/dL Microbiology - Last 24 Hours (Table) 07/30/18 22:55 Urine Culture - Final Urine,Clean Catch 07/30/18 23:11 Blood Culture Gram Stain - Preliminary Blood Blood Culture - Preliminary Gram Neg Bacilli 07/30/18 23:11 Blood Culture - Final Blood Assessment and Plan Plan: -Urinary tract infection possibility of Campuzano catheter related infection patient is on Zosyn which will be continued patient has sepsis secondary to that patient does have gram-negative bacteremia infectious disease is following the patient. Continue with antibiotics blood cultures as per infectious disease -Acute renal failure secondary to diuretic therapy with probable contribution from acute tubular necrosis from sepsis will continue to monitor kidney function discontinue IV fluids as well as Lasix avoid nephrotoxic agents -Possible chronic kidney disease stage III probable hypertensive nephrosclerosis. -Congestive heart failure possibility of chronic diastolic dysfunction with mild acute exacerbation IV fluids and Lasix are being held because of above- mentioned reasons -Chronic bilateral lower leg edema mostly from venous stasis patient does have venous stasis dermatosis and the patient is also getting Diflucan for intertrigo -Hypothyroidism -Hypertension -Recent bladder cancer
--- NOTE | 2018-08-01 11:46 | P.NPCON ---
History of Present Illness - Reason for Consult acute renal failure - History of Present Illness Reason for consultation: Acute kidney injury on chronic kidney disease History of present illness: Patient is a 78-year-old male seen in renal consultation for acute kidney injury on chronic kidney disease. Patient has chronic kidney disease stage III with baseline creatinine in the range of 1.4-1.6 secondary to nephrosclerosis. Renal function has been worsening the last few days with creatinine up to 2.18 today. Patient has a Campuzano catheter in place. He is nonoliguric. No vomiting or diarrhea. Denies use of NSAIDs. Oral intake is fair. Patient presented to the hospital with fever and generalized weakness. His temperature was 102F. Patient's blood cultures positive for gram-negative bacilli. Patient received about 4 L of normal saline yesterday and subsequently became out of breath. He didn't received a dose of IV Lasix. Currently fluids have been discontinued. He sitting up in chair. He is afebrile this morning. Patient has history of diabetes mellitus. Blood pressure is now controlled. Low blood pressures ranging from systolic 80s to 100s are noted from July 31. Vital signs are stable. General: The patient appeared well nourished and normally developed. HEENT: Head exam is unremarkable. Neck is without jugular venous distension. LUNGS: Lungs are clear to auscultation and percussion. Breath sounds decreased. HEART: Rate and Rhythm are regular. First and second heart sounds normal. No murmurs, rubs or gallops. ABDOMEN: Abdominal exam reveals normal bowel sounds. Non-tender and non- distended. No evidence of peritonitis. EXTREMITITES: Chronic skin changes noted. 1+ edema. Past Medical History Past Medical History: Cancer, Heart Failure, COPD, Diabetes Mellitus, Thyroid Disorder Additional Past Medical History / Comment(s): HX A-FLUTTER/TACHYCARDIA, TX W/ CARDIOVERSION, HAS BLADDER CA, CATARACTS, ABD HERNIA. PARKINSONS, DIVERTICULITIS. EDEMA FEET/LEGS,GI BLEED.DDD lower spine. Hx. of Bladder tumor. IDC removed 07-27-18. Last Myocardial Infarction Date:: UNK History of Any Multi-Drug Resistant Organisms: None Reported Past Surgical History: Adenoidectomy, Bladder Surgery, Tonsillectomy Additional Past Surgical History / Comment(s): 2013 CARDIOVERSION, SAL. BLADDER TUMOR REMOVED,cystoscopy with bladder CA TREATMENTS Past Anesthesia/Blood Transfusion Reactions: Previous Problems w/ Anesthesia Additional Past Anesthesia/Blood Transfusion Reaction / Comment(s): HX CLAUSTROPHOBIA Past Psychological History: Anxiety Smoking Status: Former smoker Past Alcohol Use History: None Reported Past Drug Use History: None Reported - Past Family History Father Family Medical History: Cancer Additional Family Medical History / Comment(s): SISTERS W/ BREAST CA. Mother Family Medical History: Coronary Artery Disease (CAD) Additional Family Medical History / Comment(s): Macular degeneration Sister(s) Family Medical History: Cancer Additional Family Medical History / Comment(s): breast CA Medications and Allergies Home Medications Medication Instructions Recorded Confirmed Type Insulin Lispro Protamin/Lispro 70 - 75 unit SQ BID PRN 02/26/14 07/30/18 History [humaLOG Mix 75-25 Kwikpen] Albuterol Inhaler [Ventolin Hfa 2 puff INHALATION RT-Q6H PRN 03/15/14 07/30/18 History Inhaler] Amiodarone HCl 200 mg PO QAM 04/21/14 07/30/18 History Furosemide 40 mg PO BID 04/21/16 07/30/18 History Metoprolol Tartrate 50 mg PO QAM 04/21/16 07/30/18 History Lisinopril [Zestril] 5 mg PO QAM 06/09/16 07/30/18 History Carbidopa-Levodopa 25-100 mg 2 tab PO TID 07/08/16 07/30/18 History [Sinemet 25-100] Levothyroxine Sodium [Synthroid] 88 mcg PO QAM 07/01/18 07/30/18 History Allergies Allergy/AdvReac Type Severity Reaction Status Date / Time aspirin Allergy Swelling Verified 07/30/18 22:39 NSAIDS (Non-Steroidal Allergy Swelling Verified 07/30/18 22:39 Anti-Inflamma Physical Exam Vitals: Vital Signs Temp Pulse Pulse Resp BP Pulse Ox 08/01/18 08:00 97.7 F 69 18 139/98 98 08/01/18 06:17 97.1 F L 68 17 120/57 96 08/01/18 06:10 97.1 F L 68 17 120/57 94 L 08/01/18 02:25 97.6 F 88 20 115/57 97 08/01/18 00:00 100.2 F H 79 19 102/45 99 07/31/18 21:07 76 07/31/18 20:53 71 97 07/31/18 20:10 102.4 F H 91 22 108/68 95 07/31/18 17:00 80 07/31/18 16:48 80 07/31/18 16:00 103.2 F H 79 36 H 07/31/18 15:52 79 26 H 115/55 94 L 07/31/18 15:19 74 26 H 145/66 97 07/31/18 15:16 100.1 F H 63 28 H 153/69 98 07/31/18 14:39 100.1 F H 53 L 26 H 100/42 95 07/31/18 12:53 97.9 F 58 L 22 136/52 98 Intake and Output 07/31/18 08/01/18 08/01/18 22:59 06:59 14:59 Intake Total 1050 180 Output Total 1300 1003 Balance -250 -1003 180 Intake: Intake, IV Titration 1050 Amount Piperacillin-Tazobactam 3 50 .375 gm In Dextrose/Water 1 50ml.bag @ 12.5 mls/hr IVPB Q8HR [facility] Rx#: [id number] Sodium Chloride 0.9% 1, 1000 000 ml @ 500 mls/hr IV . Q2H [facility] Rx#:[id number] Oral 180 Output: Urine 1300 1000 Stool 3 Other: Voiding Method Indwelling Catheter Indwelling Catheter Indwelling Catheter Weight 131.7 kg Results - Lab Results Most recent lab results Calcium 7.4 mg/dL (8.4-10.2) L 08/01/18 05:58 08/01/18 05:58 08/01/18 05:58 Assessment and Plan Plan: Assessment: 1. Nonoliguric acute kidney injury secondary to ATN secondary to sepsis and hypotension. Creatinine 2.18 today. No proteinuria on UA. 2. Gram-negative bacteremia maintained on IV antibiotics. 3. Insulin-dependent diabetes mellitus. 4. Metabolic acidosis secondary to acute kidney injury and lactic acidosis. 5. Volume overload secondary to IV fluids. Status post Lasix. 6. Bladder cancer. Patient follows with urology. Currently has a Campuzano catheter in place. 7. Chronic kidney disease stage III secondary to nephrosclerosis with baseline creatinine in the range of 1.4-1.6. Plan: Lasix 40 mg IV once today. Avoid nephrotoxins. Encouraged oral intake. Continue to hold lisinopril for now. Follow-up cultures. Continue to monitor renal function and urine output. Thank you for the consultation. I will continue to follow the patient with you during his hospital stay.
[2018-08-01 12:03] LABS: Glucose,Whole Blood 260 mg/dL (75-99)
[2018-08-01 17:18] LABS: Glucose,Whole Blood 204 mg/dL (75-99)
[2018-08-01 20:35] LABS: Glucose,Whole Blood 192 mg/dL (75-99)
--- NOTE | 2018-08-01 22:09 | P.PN ---
Subjective Progress Note Date: 08/01/18 78 year old maleWith history of Parkinson disease and a history of bladder cancer who recently underwent transurethral resection of the tumor. The patient had difficulties with postoperative urinary retention and had a Campuzano catheter in place. Recently a catheter was removed and the patient was having increasing difficulties with urinary retention. Because of this the patient was brought into hospital rate was having difficulties with urinary retention but also had evidence of sepsis with his fever and leukocytosis. The patient had a bladder scan that showed 120 mL's of fluid and has been seen by urology without the need for urgent interventions at this time. The patient however has ongoing sepsis with elevated lactic acid and was receiving fluid resuscitation, but was also having difficulty with some congestive heart failure. This time the patient is a poor historian but relates that he feels poorly. 08/01/2018 upon arrival to the groin the patient sitting up in the chair he is conversational, he is no longer short of breath is no longer tachypneic feels considerably better and he ate some breakfast. This is a marked improvement since evaluation of yesterday. Campuzano catheter was placed and the patient is considerably improved after this has occurred. Objective - Vital Signs Vital signs: Vital Signs Temp 97.4 F L 08/01/18 15:00 Pulse 49 L 08/01/18 15:00 Resp 16 08/01/18 15:54 BP 109/71 08/01/18 15:00 Pulse Ox 98 08/01/18 15:00 Intake & Output 08/01/18 08/01/18 08/02/18 06:59 18:59 06:59 Intake Total 1050 340 Output Total 1003 Balance 47 340 Weight 131.7 kg Intake: Intake, IV Titration 1050 160 Amount Piperacillin-Tazobactam 3 50 .375 gm In Dextrose/Water 1 50ml.bag @ 12.5 mls/hr IVPB Q8HR [facility] Rx#: [id number] Sodium Chloride 0.9% 1, 1000 160 000 ml @ 500 mls/hr IV . Q2H [facility] Rx#:[id number] Oral 180 Output: Urine 1000 Stool 3 Other: Voiding Method Indwelling Catheter Indwelling Catheter - Exam 78-year-old male much improved from yesterday respiratory distress is resolved, sitting up in the chair HEENT: Anicteric conjunctiva are pink and moist nasal mucosa grossly intact without significant lesions, there is no thrush. Poor dentition Neck: The neck is supple without significant lymphadenopathy or thyromegaly. Lungs: Few basilar crackles are noted no distinct dullness or egophony was noted Heart: Irregular with an audible S1 and S2 soft S4 no distinct murmur click or rub PMI was nondisplaced without heave or thrill Abdomen: Positive bowel sounds soft and nontender without palpable masses or organomegaly. There was no guarding or rebound. Extremities: The upper extremities have excellent pulses they are symmetric, no significant petechiae or telangiectasia. No splinter hemorrhages were noted. Lower extremities have bilateral edema evidence of chronic skin changes from his chronic edema with thickened dry skin no open wounds are noted at this time Neuro: Awake alert conversational oriented to person place and time, the parkinsonian L tremor is minimal - Labs CBC & Chem 7: 08/01/18 05:58 08/01/18 05:58 Labs: Abnormal Lab Results - Last 24 Hours (Table) 08/01/18 08/01/18 08/01/18 Range/Units 01:58 05:24 05:58 RBC 3.31 L (4.30-5.90) m/uL Hgb 10.2 L (13.0-17.5) gm/dL Hct 30.2 L (39.0-53.0) % Plt Count 115 L (150-450) k/uL Sodium (137-145) mmol/L Carbon Dioxide (22-30) mmol/L BUN (9-20) mg/dL Creatinine (0.66-1.25) mg/dL Glucose (74-99) mg/dL POC Glucose (mg/dL) 239 H (75-99) mg/dL Plasma Lactic Acid Riley 2.1 H* (0.7-2.0) mmol/L Calcium (8.4-10.2) mg/dL 08/01/18 08/01/18 08/01/18 Range/Units 05:58 12:00 17:10 RBC (4.30-5.90) m/uL Hgb (13.0-17.5) gm/dL Hct (39.0-53.0) % Plt Count (150-450) k/uL Sodium 135 L (137-145) mmol/L Carbon Dioxide 21 L (22-30) mmol/L BUN 39 H (9-20) mg/dL Creatinine 2.18 H (0.66-1.25) mg/dL Glucose 225 H (74-99) mg/dL POC Glucose (mg/dL) 260 H 204 H (75-99) mg/dL Plasma Lactic Acid Riley (0.7-2.0) mmol/L Calcium 7.4 L (8.4-10.2) mg/dL 08/01/18 Range/Units 20:33 RBC (4.30-5.90) m/uL Hgb (13.0-17.5) gm/dL Hct (39.0-53.0) % Plt Count (150-450) k/uL Sodium (137-145) mmol/L Carbon Dioxide (22-30) mmol/L BUN (9-20) mg/dL Creatinine (0.66-1.25) mg/dL Glucose (74-99) mg/dL POC Glucose (mg/dL) 192 H (75-99) mg/dL Plasma Lactic Acid Riley (0.7-2.0) mmol/L Calcium (8.4-10.2) mg/dL Microbiology - Last 24 Hours (Table) 07/30/18 23:11 Blood Culture Gram Stain - Final Blood Blood Culture - Final Escherichia coli 07/30/18 22:55 Urine Culture - Final Urine,Clean Catch Laboratory Results WBC 8.8 k/uL (3.8-10.6) 08/01/18 05:58 RBC 3.31 m/uL (4.30-5.90) L 08/01/18 05:58 Hgb 10.2 gm/dL (13.0-17.5) L 08/01/18 05:58 Hct 30.2 % (39.0-53.0) L 08/01/18 05:58 MCV 91.1 fL (80.0-100.0) 08/01/18 05:58 MCH 30.7 pg (25.0-35.0) 08/01/18 05:58 MCHC 33.7 g/dL (31.0-37.0) 08/01/18 05:58 RDW 13.6 % (11.5-15.5) 08/01/18 05:58 Plt Count 115 k/uL (150-450) L 08/01/18 05:58 Neutrophils % 80 % 10/21/18 05:58 Lymphocytes % 13 % 08/01/18 05:58 Monocytes % 5 % 08/01/18 05:58 Eosinophils % 1 % 08/01/18 05:58 Basophils % 0 % 08/01/18 05:58 Neutrophils # 7.1 k/uL (1.3-7.7) 08/01/18 05:58 Lymphocytes # 1.1 k/uL (1.0-4.8) 08/01/18 05:58 Monocytes # 0.5 k/uL (0-1.0) 08/01/18 05:58 Eosinophils # 0.1 k/uL (0-0.7) 08/01/18 05:58 Basophils # 0.0 k/uL (0-0.2) 08/01/18 05:58 PT 10.4 sec (9.0-12.0) 07/30/18 23:11 INR 1.1 (<1.2) 07/30/18 23:11 APTT 20.8 sec (22.0-30.0) L 07/30/18 23:11 Sodium 135 mmol/L (137-145) L 08/01/18 05:58 Potassium 3.8 mmol/L (3.5-5.1) 08/01/18 05:58 Chloride 105 mmol/L (98-107) 08/01/18 05:58 Carbon Dioxide 21 mmol/L (22-30) L 08/01/18 05:58 Anion Gap 9 mmol/L 08/01/18 05:58 BUN 39 mg/dL (9-20) H 08/01/18 05:58 Creatinine 2.18 mg/dL (0.66-1.25) H 08/01/18 05:58 Est GFR (CKD-EPI)AfAm 33 (>60 ml/min/1.73 sqM) 08/01/18 05:58 Est GFR (CKD-EPI)NonAf 28 (>60 ml/min/1.73 sqM) 08/01/18 05:58 Glucose 225 mg/dL (74-99) H 08/01/18 05:58 POC Glucose (mg/dL) 192 mg/dL (75-99) H 08/01/18 20:33 POC Glu [employer] Stacie Warner 08/01/18 20:[address] Glu mg/dL 180 07/30/18 23:11 Hemoglobin A1c 7.9 % (4.0-6.0) H 07/30/18 23:11 Lactic Ac Sepsis Rflx Y 08/01/18 02:35 Plasma Lactic Acid Riley 1.2 mmol/L (0.7-2.0) 08/01/18 05:58 Calcium 7.4 mg/dL (8.4-10.2) L 08/01/18 05:58 Total Bilirubin 1.4 mg/dL (0.2-1.3) H 07/30/18 23:11 AST 348 U/L (17-59) H 07/30/18 23:11 ALT 101 U/L (21-72) H 07/30/18 23:11 Alkaline Phosphatase 249 U/L (38-126) H 07/30/18 23:11 Troponin I 0.034 ng/mL (0.000-0.034) 07/30/18 23:11 NT-Pro-B Natriuret Pep 4420 pg/mL 07/31/18 07:24 Total Protein 6.1 g/dL (6.3-8.2) L 07/30/18 23:11 Albumin 3.4 g/dL (3.5-5.0) L 07/30/18 23:11 Urine Color Yellow 07/30/18 22:55 Urine Appearance Clear (Clear) 07/30/18 22:55 Urine pH 5.0 (5.0-8.0) 07/30/18 22:55 Ur Specific Bandera 1.009 (1.001-1.035) 07/30/18 22:55 Urine Protein Negative (Negative) 07/30/18 22:55 Urine Glucose (UA) 3+ (Negative) H 07/30/18 22:55 Urine Ketones Negative (Negative) 07/30/18 22:55 Urine Blood Moderate (Negative) H 07/30/18 22:55 Urine Nitrite Negative (Negative) 07/30/18 22:55 Urine Bilirubin Negative (Negative) 07/30/18 22:55 Urine Urobilinogen <2.0 mg/dL (<2.0) 07/30/18 22:55 Ur Leukocyte Esterase Small (Negative) H 07/30/18 22:55 Urine RBC 17 /hpf (0-5) H 07/30/18 22:55 Urine WBC 25 /hpf (0-5) H 07/30/18 22:55 Urine Mucus Rare /hpf (None) H 07/30/18 22:55 Microbiology 07/30/18 23:11 Blood Blood Culture Gram Stain - Final 07/30/18 23:11 Blood Blood Culture - Final Escherichia coli 07/30/18 22:55 Urine,Clean Catch Urine Culture - Final 07/30/18 23:11 Blood Blood Culture - Final Assessment and Plan (1) Urinary tract infection Current Visit: Yes Status: Acute Code(s): N39.0 - URINARY TRACT INFECTION, SITE NOT SPECIFIED SNOMED Code(s): 01997228 (2) Sepsis Current Visit: Yes Status: Acute Code(s): A41.9 - SEPSIS, UNSPECIFIED ORGANISM SNOMED Code(s): 93668269 (3) Gram-negative bacteremia Narrative/Plan: 78-year-old male with history of Parkinson's disease, bladder cancer with recent transurethral resection presents to Hospital of evidence of urinary retention, and gram-negative sepsis. Patient's records are reviewed and there is a history of prior E. coli as well as Staphylococcus epidermidis in his urine both susceptible to Zosyn a history of highly resistant organisms. We'll continue Zosyn for now while cultures are in process. Adjust the antibiotics as indicated. At this time the patient is having some difficulties with respiratory distress and additional Lasix is given however the patient is having an elevated lactic acid continues to need fluid resuscitation. Constantly fluids will be given and will utilize Lasix to help with his pulmonary status. The patient is quite ill and the nursing staff is discussing the care with the primary care service. 08/01/2018 reveals the patient to be considerably improved in the last day. The lactic acidosis has resolved. Leukocytosis improved. Awaiting the final identification of the bacteria in the urine and the blood. The patient was fluid resuscitated and also received diuretic therapy which is allowed improvement of the pulmonary edema and resolution of the lactic acidosis. The patient is feeling considerably better his able to eat. Once cultures are available to determine what her options are for antibiotic therapy the time of discharge. Unclear with the discharge plan will be as far as setting. Does have a Campuzano catheter in place. Will look for input from urology in that once this was placed there is no major improvement of the status and would consider utilization of the catheter at least short-term after discharge until he has further urological follow-up. Current Visit: Yes Status: Acute Code(s): R78.81 - BACTEREMIA SNOMED Code( s): 565412678077
[2018-08-02] MEDS: LEVOTHYROXINE 88 MCG TAB PO SCH (05:50)
[2018-08-02 07:34] LABS: Glucose,Whole Blood 144 mg/dL (75-99)
[2018-08-02] MEDS: AMIODARONE 200 MG TAB PO SCH (08:06)
[2018-08-02] MEDS: METOPROLOL TARTRATE 50 MG TAB PO SCH (08:06)
[2018-08-02] MEDS: INSULIN ASPART 100 UNIT/ML 1 ML 10 ML VIAL SQ SCH ×4 (08:06→22:31)
[2018-08-02] MEDS: CARBIDOPA-LEVODOPA 25-100 MG 1 EACH TAB PO SCH ×3 (08:06→22:30)
[2018-08-02] MEDS: TAMSULOSIN 0.4 MG CAP.ER.24H PO SCH (08:06)
[2018-08-02] MEDS: HEPARIN SODIUM,PORCINE 5,000 UNIT/ML 1 ML VIAL SQ SCH ×2 (08:06→22:31)
--- NOTE | 2018-08-02 08:28 | P.PN ---
Progress Note - Text Progress Note Date: 08/02/18 The patient is improved overall and is afebrile. His catheter was removed yesterday and he says he is voiding without difficulty. He is not experiencing the frequency and urgency that he had prior to his admission. Urine culture did not confirm a UTI however blood cultures are growing e coli. AM labs are pending. I suspect he did have UTI with bacteremia and sepsis despite negative urine culture. Will check post void residual to insure he is voiding completely. He will most likely require IV antibiotics following discharge.
[2018-08-02] MEDS ORDERED: FUROSEMIDE 10 MG/ML 4 ML VIAL IV STA (09:04)
--- NOTE | 2018-08-02 09:06 | P.PN ---
Subjective Patient is seen in follow-up for acute kidney injury on chronic kidney disease. Creatinine was up to 2.18 yesterday. Patient has chronic kidney disease stage III with baseline creatinine in the range of 1.4-1.6 secondary to nephrosclerosis. Campuzano catheter was removed yesterday. He has been voiding. He is noted to have E. coli bacteremia and is maintained on antibiotics. Blood pressure controlled. Vital signs are stable. General: The patient appeared well nourished and normally developed. HEENT: Head exam is unremarkable. Neck is without jugular venous distension. LUNGS: Lungs are clear to auscultation and percussion. Breath sounds decreased. HEART: Rate and Rhythm are regular. First and second heart sounds normal. No murmurs, rubs or gallops. ABDOMEN: Abdominal exam reveals normal bowel sounds. Non-tender and non- distended. No evidence of peritonitis. EXTREMITITES: 1+ edema. Lower extremities wrapped. Objective - Vital Signs Vital signs: Vital Signs Temp 98.4 F 08/02/18 07:04 Pulse 67 08/02/18 07:04 Resp 18 08/02/18 07:07 BP 127/77 08/02/18 07:04 Pulse Ox 97 08/02/18 07:04 Intake & Output 08/01/18 08/02/18 08/02/18 18:59 06:59 18:59 Intake Total 340 150 Output Total 200 Balance 340 -50 Intake: Intake, IV Titration 160 50 Amount Piperacillin-Tazobactam 3 50 .375 gm In Dextrose/Water 1 50ml.bag @ 12.5 mls/hr IVPB Q8HR [facility] Rx#: [id number] Sodium Chloride 0.9% 1, 160 000 ml @ 500 mls/hr IV . Q2H [facility] Rx#:[id number] Oral 180 100 Output: Urine 200 Other: Voiding Method Indwelling Catheter Urinal Urinal # Voids 1 - Labs CBC & Chem 7: 08/01/18 05:58 08/01/18 05:58 Labs: Abnormal Lab Results - Last 24 Hours (Table) 08/01/18 08/01/18 08/01/18 Range/Units 12:00 17:10 20:33 POC Glucose (mg/dL) 260 H 204 H 192 H (75-99) mg/dL 08/02/18 Range/Units 07:08 POC Glucose (mg/dL) 144 H (75-99) mg/dL Microbiology - Last 24 Hours (Table) 07/30/18 23:11 Blood Culture Gram Stain - Final Blood Blood Culture - Final Escherichia coli Assessment and Plan Plan: Assessment: 1. Nonoliguric acute kidney injury secondary to ATN secondary to sepsis and hypotension. Creatinine 2.18 . No proteinuria on UA. 2. E. coli bacteremia maintained on IV antibiotics. 3. Insulin-dependent diabetes mellitus. 4. Metabolic acidosis secondary to acute kidney injury and lactic acidosis. 5. Volume overload secondary to IV fluids. Status post Lasix. 6. Bladder cancer. Patient follows with urology. Campuzano catheter removed. 7. Chronic kidney disease stage III secondary to nephrosclerosis with baseline creatinine in the range of 1.4-1.6. Plan: Lasix 40 mg IV once today. Avoid nephrotoxins. Encouraged oral intake. Continue to hold lisinopril for now. Continue to monitor renal function and urine output. Monitor postvoid residuals. Check renal ultrasound.
[2018-08-02 09:42] LABS: Basophils % (A) 0 %; Eosinophils # (A) 0.2 k/uL (0-0.7); Eosinophils % (A) 3 %; HGB 10.2 gm/dL (13.0-17.5); Lymphocytes # (A) 0.7 k/uL (1.0-4.8); Lymphocytes % (A) 13 %; MCH 30.6 pg (25.0-35.0); MCV 92.8 fL (80.0-100.0); Mean Platelet Volume 9.7; Monocytes # (A) 0.3 k/uL (0-1.0); Monocytes % (A) 6 %; Neutrophils # (A) 4.1 k/uL (1.3-7.7); Neutrophils % (A) 74 %; Platelet Count 106 k/uL (150-450); RBC 3.34 m/uL (4.30-5.90); RDW 13.5 % (11.5-15.5); WBC 5.5 k/uL (3.8-10.6)
[2018-08-02 10:09] LABS: Albumin 2.6 g/dL (3.5-5.0); Calcium 7.2 mg/dL (8.4-10.2); Potassium 3.9 mmol/L (3.5-5.1); Total Bilirubin 2.8 mg/dL (0.2-1.3); Total Protein 5.2 g/dL (6.3-8.2)
[2018-08-02] MEDS: PIPERACILLIN-TAZOBACTAM 3.375 GM in DEXTROSE/WATER 1 50ML.BAG IVPB SCH ×3 (10:44→23:26)
--- NOTE | 2018-08-02 10:59 | US ---
EXAMINATION TYPE: US kidneys/renal and bladder DATE OF EXAM: 08/02/2018 COMPARISON: NONE CLINICAL HISTORY: sergio. EXAM MEASUREMENTS: Right Kidney: 11.8 x 5.6 x 5.6 cm Left Kidney: 11.0 x 6.4 x 7.2 cm Right Kidney: No hydronephrosis or masses seen Left Kidney: No hydronephrosis or masses seen Bladder: empty Bilateral Jets seen: no There is no evidence for hydronephrosis at this point in time. No nephrolithiasis is seen. No levi s are identified. imaging compromised by very large body habitus Incidental finding of possible fungal ball in galbladder IMPRESSION: 1. No distinct abnormality of the kidneys or urinary bladder. 2. Suspect fungal ball within the gallbladder lumen.
--- NOTE | 2018-08-02 11:30 | P.PN ---
Subjective Patient is admitted for urinary tract infection does have a Campuzano catheter had superficial bladder cancer for which patient underwent urological procedure and underwent transurethral resection of prostate. Patient was septic with lactic is doses because of which patient was given IV fluids resulting in hypoxemia. Patient hypoxemia improved patient is getting both Lasix and IV fluids both of which will be discontinued his last 2 lactic acid is 1.2 patient although has significant pedal edema patient had ejection fraction of 55% during his previous hospitalization. I was told patient was having brief episodes of A. fib we'll continue to monitor if he goes into A. fib then patient will be evaluated for possibility of anticoagulation at that time patient remains to have Campuzano catheter. Patient is presently on Zosyn urine cultures positive for gram-negative bacilli and staph epidermidis. Infectious disease following the patient. Obtain the chest x-ray which showed small bilateral pleural effusions consistent with heart failure since his vitals are stable now on hold off on the diuretic therapy as there is worsening creatinine. 08/02/2018 Nephrology is recommending cystoscopy because of hydronephrosis of one kidney he has, his serum creatinine remains stable patient was started on IV Lasix. She does have significant bilateral pedal edema. Campuzano catheter was removed Constitutional: Denied any fatigue denied any fever. Cardio vascular: denied any chest pain, palpitations Gastrointestinal denied any nausea vomiting Pulmonary: Denied any shortness of breath cough Neurologic denied any new focal deficits Objective - Vital Signs Vital signs: Vital Signs Temp 98.4 F 08/02/18 07:04 Pulse 67 08/02/18 07:04 Resp 18 08/02/18 07:07 BP 127/77 08/02/18 07:04 Pulse Ox 97 08/02/18 07:04 Intake & Output 08/01/18 08/02/18 08/02/18 18:59 06:59 18:59 Intake Total 340 150 Output Total 200 200 Balance 340 -50 -200 Intake: Intake, IV Titration 160 50 Amount Piperacillin-Tazobactam 3 50 .375 gm In Dextrose/Water 1 50ml.bag @ 12.5 mls/hr IVPB Q8HR [facility] Rx#: [id number] Sodium Chloride 0.9% 1, 160 000 ml @ 500 mls/hr IV . Q2H [facility] Rx#:[id number] Oral 180 100 Output: Urine 200 200 Other: Voiding Method Indwelling Catheter Urinal Urinal # Voids 1 - Exam PHYSICAL EXAMINATION: GENERAL: The patient is alert and oriented x3, not in any acute distress. Morbidly obese HEENT: Pupils are round and equally reacting to light. EOMI. No scleral icterus. No conjunctival pallor. Normocephalic, atraumatic. No pharyngeal erythema. No thyromegaly. CARDIOVASCULAR: S1 and S2 present. No murmurs, rubs, or gallops. PULMONARY: Chest is clear to auscultation, no wheezing or crackles. ABDOMEN: Soft, nontender, nondistended, normoactive bowel sounds. No palpable organomegaly. MUSCULOSKELETAL: No joint swelling or deformity. EXTREMITIES: No cyanosis, clubbing, patient has 3+ pedal edema NEUROLOGICAL: Gross neurological examination did not reveal any focal deficits. SKIN: No rashes. - Labs CBC & Chem 7: 08/02/18 09:01 08/02/18 09:01 Labs: Abnormal Lab Results - Last 24 Hours (Table) 08/01/18 08/01/18 08/01/18 Range/Units 12:00 17:10 20:33 RBC (4.30-5.90) m/uL Hgb (13.0-17.5) gm/dL Hct (39.0-53.0) % Plt Count (150-450) k/uL Lymphocytes # (1.0-4.8) k/uL Sodium (137-145) mmol/L BUN (9-20) mg/dL Creatinine (0.66-1.25) mg/dL Glucose (74-99) mg/dL POC Glucose (mg/dL) 260 H 204 H 192 H (75-99) mg/dL Calcium (8.4-10.2) mg/dL Total Bilirubin (0.2-1.3) mg/dL AST (17-59) U/L Alkaline Phosphatase (38-126) U/L Total Protein (6.3-8.2) g/dL Albumin (3.5-5.0) g/dL 08/02/18 08/02/18 08/02/18 Range/Units 07:08 09:01 09:01 RBC 3.34 L (4.30-5.90) m/uL Hgb 10.2 L (13.0-17.5) gm/dL Hct 31.0 L (39.0-53.0) % Plt Count 106 L (150-450) k/uL Lymphocytes # 0.7 L (1.0-4.8) k/uL Sodium 135 L (137-145) mmol/L BUN 40 H (9-20) mg/dL Creatinine 1.98 H (0.66-1.25) mg/dL Glucose 139 H (74-99) mg/dL POC Glucose (mg/dL) 144 H (75-99) mg/dL Calcium 7.2 L (8.4-10.2) mg/dL Total Bilirubin 2.8 H (0.2-1.3) mg/dL AST 82 H (17-59) U/L Alkaline Phosphatase 204 H (38-126) U/L Total Protein 5.2 L (6.3-8.2) g/dL Albumin 2.6 L (3.5-5.0) g/dL Microbiology - Last 24 Hours (Table) 07/30/18 23:11 Blood Culture Gram Stain - Final Blood Blood Culture - Final Escherichia coli Assessment and Plan Plan: -Urinary tract infection possibility of Campuzano catheter related infection, patient's blood cultures are showing E. coli repeat blood cultures will be obtained patient will be started on ceftriaxone. Repeat blood cultures will be obtain for today and tomorrow -Acute renal failure secondary to diuretic therapy with probable contribution from acute tubular necrosis from sepsis will continue to monitor kidney function discontinue IV fluids as well as Lasix avoid nephrotoxic agents -Possible chronic kidney disease stage III probable hypertensive nephrosclerosis. -Congestive heart failure possibility of chronic diastolic dysfunction with mild acute exacerbation, patient is being resumed on Lasix today. Monitor BMP -Chronic bilateral lower leg edema mostly from venous stasis patient does have venous stasis dermatosis and the patient is also getting Diflucan for intertrigo -Hypothyroidism -Hypertension -Recent bladder cancer
[2018-08-02 11:49] LABS: Glucose,Whole Blood 207 mg/dL (75-99)
[2018-08-02 16:35] LABS: Glucose,Whole Blood 189 mg/dL (75-99)
[2018-08-02 21:00] LABS: Glucose,Whole Blood 227 mg/dL (75-99)
--- NOTE | 2018-08-02 21:20 | P.PN ---
Subjective Progress Note Date: 08/02/18 78 year old maleWith history of Parkinson disease and a history of bladder cancer who recently underwent transurethral resection of the tumor. The patient had difficulties with postoperative urinary retention and had a Campuzano catheter in place. Recently a catheter was removed and the patient was having increasing difficulties with urinary retention. Because of this the patient was brought into hospital rate was having difficulties with urinary retention but also had evidence of sepsis with his fever and leukocytosis. The patient had a bladder scan that showed 120 mL's of fluid and has been seen by urology without the need for urgent interventions at this time. The patient however has ongoing sepsis with elevated lactic acid and was receiving fluid resuscitation, but was also having difficulty with some congestive heart failure. This time the patient is a poor historian but relates that he feels poorly. 08/01/2018 upon arrival to the groin the patient sitting up in the chair he is conversational, he is no longer short of breath is no longer tachypneic feels considerably better and he ate some breakfast. This is a marked improvement since evaluation of yesterday. Campuzano catheter was placed and the patient is considerably improved after this has occurred. 08/02/2018 reveals the patient to be considerably improved. Sitting upright watching television without new acute complaints. Objective - Vital Signs Vital signs: Vital Signs Temp 98.3 F 08/02/18 14:44 Pulse 68 08/02/18 14:44 Resp 17 08/02/18 17:08 BP 126/78 08/02/18 14:44 Pulse Ox 97 08/02/18 14:44 Intake & Output 08/02/18 08/02/18 08/03/18 06:59 18:59 06:59 Intake Total 150 1200 700 Output Total 200 400 290 Balance -50 800 410 Intake: Intake, IV Titration 50 800 160 Amount Piperacillin-Tazobactam 3 50 50 .375 gm In Dextrose/Water 1 50ml.bag @ 12.5 mls/hr IVPB Q8HR [facility] Rx#: [id number] Sodium Chloride 0.9% 1, 60 000 ml @ 20 mls/hr IV . Q24H [facility] Rx#:[id number] cefTRIAXone 1,000 mg In 800 50 Sodium Chloride 0.9% 50 ml @ 100 mls/hr IVPB Q24H [facility] Rx#:[id number] Oral 100 540 Other 400 Output: Urine 200 400 290 Other: Voiding Method Urinal Urinal # Voids 1 2 2 - Exam 78-year-old male much improved from yesterday respiratory distress is resolved, sitting up in the chair HEENT: Anicteric conjunctiva are pink and moist nasal mucosa grossly intact without significant lesions, there is no thrush. Poor dentition Neck: The neck is supple without significant lymphadenopathy or thyromegaly. Lungs: Few basilar crackles are noted no distinct dullness or egophony was noted Heart: Irregular with an audible S1 and S2 soft S4 no distinct murmur click or rub PMI was nondisplaced without heave or thrill Abdomen: Positive bowel sounds soft and nontender without palpable masses or organomegaly. There was no guarding or rebound. Extremities: The upper extremities have excellent pulses they are symmetric, no significant petechiae or telangiectasia. No splinter hemorrhages were noted. Lower extremities have bilateral edema evidence of chronic skin changes from his chronic edema with thickened dry skin no open wounds are noted at this time Neuro: Awake alert conversational oriented to person place and time, the parkinsonian L tremor is minimal - Labs CBC & Chem 7: 08/02/18 09:01 08/02/18 09:01 Labs: Abnormal Lab Results - Last 24 Hours (Table) 08/02/18 08/02/18 08/02/18 Range/Units 07:08 09:01 09:01 RBC 3.34 L (4.30-5.90) m/uL Hgb 10.2 L (13.0-17.5) gm/dL Hct 31.0 L (39.0-53.0) % Plt Count 106 L (150-450) k/uL Lymphocytes # 0.7 L (1.0-4.8) k/uL Sodium 135 L (137-145) mmol/L BUN 40 H (9-20) mg/dL Creatinine 1.98 H (0.66-1.25) mg/dL Glucose 139 H (74-99) mg/dL POC Glucose (mg/dL) 144 H (75-99) mg/dL Calcium 7.2 L (8.4-10.2) mg/dL Total Bilirubin 2.8 H (0.2-1.3) mg/dL AST 82 H (17-59) U/L Alkaline Phosphatase 204 H (38-126) U/L Total Protein 5.2 L (6.3-8.2) g/dL Albumin 2.6 L (3.5-5.0) g/dL 08/02/18 08/02/18 08/02/18 Range/Units 11:34 16:23 20:39 RBC (4.30-5.90) m/uL Hgb (13.0-17.5) gm/dL Hct (39.0-53.0) % Plt Count (150-450) k/uL Lymphocytes # (1.0-4.8) k/uL Sodium (137-145) mmol/L BUN (9-20) mg/dL Creatinine (0.66-1.25) mg/dL Glucose (74-99) mg/dL POC Glucose (mg/dL) 207 H 189 H 227 H (75-99) mg/dL Calcium (8.4-10.2) mg/dL Total Bilirubin (0.2-1.3) mg/dL AST (17-59) U/L Alkaline Phosphatase (38-126) U/L Total Protein (6.3-8.2) g/dL Albumin (3.5-5.0) g/dL Microbiology - Last 24 Hours (Table) 07/30/18 23:11 Blood Culture Gram Stain - Final Blood Blood Culture - Final Escherichia coli Laboratory Results WBC 5.5 k/uL (3.8-10.6) 08/02/18 09:01 RBC 3.34 m/uL (4.30-5.90) L 08/02/18 09:01 Hgb 10.2 gm/dL (13.0-17.5) L 08/02/18 09:01 Hct 31.0 % (39.0-53.0) L 08/02/18 09:01 MCV 92.8 fL (80.0-100.0) 08/02/18 09:01 MCH 30.6 pg (25.0-35.0) 08/02/18 09:01 MCHC 33.0 g/dL (31.0-37.0) 08/02/18 09:01 RDW 13.5 % (11.5-15.5) 08/02/18 09:01 Plt Count 106 k/uL (150-450) L 08/02/18 09:01 Neutrophils % 74 % 08/02/18 09:01 Lymphocytes % 13 % 08/02/18 09:01 Monocytes % 6 % 08/02/18 09:01 Eosinophils % 3 % 08/02/18 09:01 Basophils % 0 % 08/02/18 09:01 Neutrophils # 4.1 k/uL (1.3-7.7) 08/02/18 09:01 Lymphocytes # 0.7 k/uL (1.0-4.8) L 08/02/18 09:01 Monocytes # 0.3 k/uL (0-1.0) 08/02/18 09:01 Eosinophils # 0.2 k/uL (0-0.7) 08/02/18 09:01 Basophils # 0.0 k/uL (0-0.2) 08/02/18 09:01 PT 10.4 sec (9.0-12.0) 07/30/18 23:11 INR 1.1 (<1.2) 07/30/18 23:11 APTT 20.8 sec (22.0-30.0) L 07/30/18 23:11 Sodium 135 mmol/L (137-145) L 08/02/18 09:01 Potassium 3.9 mmol/L (3.5-5.1) 08/02/18 09:01 Chloride 103 mmol/L (98-107) 08/02/18 09:01 Carbon Dioxide 22 mmol/L (22-30) 08/02/18 09:01 Anion Gap 10 mmol/L 08/02/18 09:01 BUN 40 mg/dL (9-20) H 08/02/18 09:01 Creatinine 1.98 mg/dL (0.66-1.25) H 08/02/18 09:01 Est GFR (CKD-EPI)AfAm 37 (>60 ml/min/1.73 sqM) 08/02/18 09:01 Est GFR (CKD-EPI)NonAf 32 (>60 ml/min/1.73 sqM) 08/02/18 09:01 Glucose 139 mg/dL (74-99) H 08/02/18 09:01 POC Glucose (mg/dL) 227 mg/dL (75-99) H 08/02/18 20:39 POC Glu [employer] Jaleesa Corbett 08/02/18 20:[address] Glu mg/dL 180 07/30/18 23:11 Hemoglobin A1c 7.9 % (4.0-6.0) H 07/30/18 23:11 Lactic Ac Sepsis Rflx Y 08/01/18 02:35 Plasma Lactic Acid [place] 1.2 mmol/L (0.7-2.0) 08/01/18 05:58 Calcium 7.2 mg/dL (8.4-10.2) L 08/02/18 09:01 Total Bilirubin 2.8 mg/dL (0.2-1.3) H 08/02/18 09:01 AST 82 U/L (17-59) H 08/02/18 09:01 ALT 43 U/L (21-72) 08/02/18 09:01 Alkaline Phosphatase 204 U/L (38-126) H 08/02/18 09:01 Troponin I 0.034 ng/mL (0.000-0.034) 07/30/18 23:11 NT-Pro-B Natriuret Pep 4420 pg/mL 07/31/18 07:24 Total Protein 5.2 g/dL (6.3-8.2) L 08/02/18 09:01 Albumin 2.6 g/dL (3.5-5.0) L 08/02/18 09:01 Urine Color Yellow 07/30/18 22:55 Urine Appearance Clear (Clear) 07/30/18 22:55 Urine pH 5.0 (5.0-8.0) 07/30/18 22:55 Ur Specific [place] 1.009 (1.001-1.035) 07/30/18 22:55 Urine Protein Negative (Negative) 07/30/18 22:55 Urine Glucose (UA) 3+ (Negative) H 07/30/18 22:55 Urine Ketones Negative (Negative) 07/30/18 22:55 Urine Blood Moderate (Negative) H 07/30/18 22:55 Urine Nitrite Negative (Negative) 07/30/18 22:55 Urine Bilirubin Negative (Negative) 07/30/18 22:55 Urine Urobilinogen <2.0 mg/dL (<2.0) 07/30/18 22:55 Ur Leukocyte Esterase Small (Negative) H 07/30/18 22:55 Urine RBC 17 /hpf (0-5) H 07/30/18 22:55 Urine WBC 25 /hpf (0-5) H 07/30/18 22:55 Urine Mucus Rare /hpf (None) H 07/30/18 22:55 Microbiology 07/30/18 23:11 Blood Blood Culture Gram Stain - Final 07/30/18 23:11 Blood Blood Culture - Final Escherichia coli 07/30/18 22:55 Urine,Clean Catch Urine Culture - Final 07/30/18 23:11 Blood Blood Culture - Final Assessment and Plan (1) Urinary tract infection Current Visit: Yes Status: Acute Code(s): N39.0 - URINARY TRACT INFECTION, SITE NOT SPECIFIED SNOMED Code(s): 19598999 (2) Sepsis Current Visit: Yes Status: Acute Code(s): A41.9 - SEPSIS, UNSPECIFIED ORGANISM SNOMED Code(s): 65976321 (3) Gram-negative bacteremia Narrative/Plan: 78-year-old male with history of Parkinson's disease, bladder cancer with recent transurethral resection presents to Hospital of evidence of urinary retention, and gram-negative sepsis. Patient's records are reviewed and there is a history of prior E. coli as well as Staphylococcus epidermidis in his urine both susceptible to Zosyn a history of highly resistant organisms. We'll continue Zosyn for now while cultures are in process. Adjust the antibiotics as indicated. At this time the patient is having some difficulties with respiratory distress and additional Lasix is given however the patient is having an elevated lactic acid continues to need fluid resuscitation. Constantly fluids will be given and will utilize Lasix to help with his pulmonary status. The patient is quite ill and the nursing staff is discussing the care with the primary care service. 08/01/2018 reveals the patient to be considerably improved in the last day. The lactic acidosis has resolved. Leukocytosis improved. Awaiting the final identification of the bacteria in the urine and the blood. The patient was fluid resuscitated and also received diuretic therapy which is allowed improvement of the pulmonary edema and resolution of the lactic acidosis. The patient is feeling considerably better his able to eat. Once cultures are available to determine what her options are for antibiotic therapy the time of discharge. Unclear with the discharge plan will be as far as setting. Does have a Campuzano catheter in place. Will look for input from urology in that once this was placed there is no major improvement of the status and would consider utilization of the catheter at least short-term after discharge until he has further urological follow-up. 08/02/2018 patient is now further improved. Cultures show evidence of E. coli that is quite susceptible. If he improves we will transition his antibiotic therapy to oral ciprofloxacin 500 mg orally every 12 hours to complete 14 days of antibiotics for his bacteremic urinary tract infection. He does have a Campuzano catheter in place and has been seen by urology. Likely discharged with the catheter in place and follow up with urology in the outpatient setting. Current Visit: Yes Status: Acute Code(s): R78.81 - BACTEREMIA SNOMED Code( s): 490869071050
[2018-08-02] MEDS: traMADol 50 MG TAB PO PRN (22:30)
[2018-08-02] MEDS: SODIUM CHLORIDE 0.9% 1,000 ML IV SCH (22:32)
[2018-08-03] MEDS: LEVOTHYROXINE 88 MCG TAB PO SCH (05:56)
[2018-08-03 07:30] LABS: Glucose,Whole Blood 140 mg/dL (75-99)
[2018-08-03 08:03] LABS: Calcium 7.6 mg/dL (8.4-10.2); Magnesium 1.5 mg/dL (1.6-2.3)
[2018-08-03 08:09] LABS: Potassium 4.3 mmol/L (3.5-5.1)
[2018-08-03] MEDS: CARBIDOPA-LEVODOPA 25-100 MG 1 EACH TAB PO SCH ×3 (08:09→20:44)
[2018-08-03] MEDS: METOPROLOL TARTRATE 50 MG TAB PO SCH (08:09)
[2018-08-03] MEDS: HEPARIN SODIUM,PORCINE 5,000 UNIT/ML 1 ML VIAL SQ SCH ×2 (08:09→20:43)
[2018-08-03] MEDS: INSULIN ASPART 100 UNIT/ML 1 ML 10 ML VIAL SQ SCH ×4 (08:10→20:43)
[2018-08-03] MEDS: traMADol 50 MG TAB PO PRN ×2 (08:10→20:44)
[2018-08-03] MEDS: TAMSULOSIN 0.4 MG CAP.ER.24H PO SCH (08:10)
[2018-08-03] MEDS: PIPERACILLIN-TAZOBACTAM 3.375 GM in DEXTROSE/WATER 1 50ML.BAG IVPB SCH ×2 (08:11→19:53)
[2018-08-03] MEDS: AMIODARONE 200 MG TAB PO SCH (09:08)
--- NOTE | 2018-08-03 09:54 | P.PN ---
Subjective Patient is seen in follow-up for acute kidney injury on chronic kidney disease. Renal function is starting to improve with creatinine down to 1.78 today. Patient has chronic kidney disease stage III with baseline creatinine in the range of 1.4-1.6 secondary to nephrosclerosis. Campuzano catheter has been removed . He has been voiding. He is noted to have E. coli bacteremia and is maintained on antibiotics. Blood pressure controlled. Vital signs are stable. General: The patient appeared well nourished and normally developed. HEENT: Head exam is unremarkable. Neck is without jugular venous distension. LUNGS: Lungs are clear to auscultation and percussion. Breath sounds decreased. HEART: Rate and Rhythm are regular. First and second heart sounds normal. No murmurs, rubs or gallops. ABDOMEN: Abdominal exam reveals normal bowel sounds. Non-tender and non- distended. No evidence of peritonitis. EXTREMITITES: 1+ edema. Lower extremities wrapped. Objective - Vital Signs Vital signs: Vital Signs Temp 97.4 F L 08/03/18 07:00 Pulse 67 08/03/18 07:00 Resp 18 08/03/18 07:00 BP 144/76 08/03/18 07:00 Pulse Ox 95 08/03/18 07:00 Intake & Output 08/02/18 08/03/18 08/03/18 18:59 06:59 18:59 Intake Total 1200 1000 Output Total 400 615 100 Balance 800 385 -100 Weight 132.9 kg Intake: Intake, IV Titration 800 160 Amount Piperacillin-Tazobactam 3 50 .375 gm In Dextrose/Water 1 50ml.bag @ 12.5 mls/hr IVPB Q8HR [facility] Rx#: [id number] Sodium Chloride 0.9% 1, 60 000 ml @ 20 mls/hr IV . Q24H [facility] Rx#:[id number] cefTRIAXone 1,000 mg In 800 50 Sodium Chloride 0.9% 50 ml @ 100 mls/hr IVPB Q24H [facility] Rx#:[id number] Oral 840 Other 400 Output: Urine 400 615 100 Other: Voiding Method Urinal Urinal Urinal # Voids 2 3 - Labs CBC & Chem 7: 08/02/18 09:01 08/03/18 07:07 Labs: Abnormal Lab Results - Last 24 Hours (Table) 08/02/18 08/02/1808/02/18 Range/Units 09:01 11:34 16:23 Sodium 135 L (137-145) mmol/L Carbon Dioxide (22-30) mmol/L BUN 40 H (9-20) mg/dL Creatinine 1.98 H (0.66-1.25) mg/dL Glucose 139 H (74-99) mg/dL POC Glucose (mg/dL) 207 H 189 H (75-99) mg/dL Calcium 7.2 L (8.4-10.2) mg/dL Magnesium (1.6-2.3) mg/dL Total Bilirubin 2.8 H (0.2-1.3) mg/dL AST 82 H (17-59) U/L Alkaline Phosphatase 204 H (38-126) U/L Total Protein 5.2 L (6.3-8.2) g/dL Albumin 2.6 L (3.5-5.0) g/dL 08/02/18 08/03/18 08/03/18 Range/Units 20:39 07:07 07:11 Sodium 134 L (137-145) mmol/L Carbon Dioxide 19 L (22-30) mmol/L BUN 38 H (9-20) mg/dL Creatinine 1.78 H (0.66-1.25) mg/dL Glucose 140 H (74-99) mg/dL POC Glucose (mg/dL) 227 H 140 H (75-99) mg/dL Calcium 7.6 L (8.4-10.2) mg/dL Magnesium 1.5 L (1.6-2.3) mg/dL Total Bilirubin (0.2-1.3) mg/dL AST (17-59) U/L Alkaline Phosphatase (38-126) U/L Total Protein (6.3-8.2) g/dL Albumin (3.5-5.0) g/dL Assessment and Plan Plan: Assessment: 1. Nonoliguric acute kidney injury secondary to ATN secondary to sepsis and hypotension. Creatinine peaked at 2.1 at this admission. Down to 1.78 today.. No proteinuria on UA. No hydronephrosis noted on renal ultrasound. 2. E. coli bacteremia maintained on IV antibiotics. 3. Insulin-dependent diabetes mellitus. 4. Metabolic acidosis secondary to acute kidney injury and lactic acidosis. 5. Volume overload secondary to IV fluids. Status post Lasix. 6. Bladder cancer. Patient follows with urology. Campuzano catheter removed. 7. Chronic kidney disease stage III secondary to nephrosclerosis with baseline creatinine in the range of 1.4-1.6. 8. Hypomagnesemia from diuretics. Plan: Avoid nephrotoxins. Encouraged oral intake. Continue to hold lisinopril for now. Continue to monitor renal function and urine output. Replace magnesium. 2 g IV today. Status post IV Lasix yesterday. Add oral bicarbonate.
--- NOTE | 2018-08-03 11:28 | P.PN ---
Subjective Patient is admitted for urinary tract infection does have a Campuzano catheter had superficial bladder cancer for which patient underwent urological procedure and underwent transurethral resection of prostate. Patient was septic with lactic is doses because of which patient was given IV fluids resulting in hypoxemia. Patient hypoxemia improved patient is getting both Lasix and IV fluids both of which will be discontinued his last 2 lactic acid is 1.2 patient although has significant pedal edema patient had ejection fraction of 55% during his previous hospitalization. I was told patient was having brief episodes of A. fib we'll continue to monitor if he goes into A. fib then patient will be evaluated for possibility of anticoagulation at that time patient remains to have Campuzano catheter. Patient is presently on Zosyn urine cultures positive for gram-negative bacilli and staph epidermidis. Infectious disease following the patient. Obtain the chest x-ray which showed small bilateral pleural effusions consistent with heart failure since his vitals are stable now on hold off on the diuretic therapy as there is worsening creatinine. 08/02/2018 Nephrology is recommending cystoscopy because of hydronephrosis of one kidney he has, his serum creatinine remains stable patient was started on IV Lasix. She does have significant bilateral pedal edema. Campuzano catheter was removed 08/03/2018 No overnight events. Patient received Lasix yesterday patient does have chronic pedal edema with chronic venous stasis dermatosis which is not expected to improve much. Constitutional: Denied any fatigue denied any fever. Cardio vascular: denied any chest pain, palpitations Gastrointestinal denied any nausea vomiting Pulmonary: Denied any shortness of breath cough Neurologic denied any new focal deficits Objective - Vital Signs Vital signs: Vital Signs Temp 97.4 F L 08/03/18 07:00 Pulse 67 08/03/18 07:00 Resp 18 08/03/18 07:00 BP 144/76 08/03/18 07:00 Pulse Ox 95 08/03/18 07:00 Intake & Output 08/02/18 08/03/18 08/03/18 18:59 06:59 18:59 Intake Total 1200 1000 Output Total 400 615 100 Balance 800 385 -100 Weight 132.9 kg Intake: Intake, IV Titration 800 160 Amount Piperacillin-Tazobactam 3 50 .375 gm In Dextrose/Water 1 50ml.bag @ 12.5 mls/hr IVPB Q8HR [facility] Rx#: [id number] Sodium Chloride 0.9% 1, 60 000 ml @ 20 mls/hr IV . Q24H [facility] Rx#:[id number] cefTRIAXone 1,000 mg In 800 50 Sodium Chloride 0.9% 50 ml @ 100 mls/hr IVPB Q24H [facility] Rx#:[id number] Oral 840 Other 400 Output: Urine 400 615 100 Other: Voiding Method Urinal Urinal Urinal # Voids 2 3 - Exam PHYSICAL EXAMINATION: GENERAL: The patient is alert and oriented x3, not in any acute distress. Morbidly obese HEENT: Pupils are round and equally reacting to light. EOMI. No scleral icterus. No conjunctival pallor. Normocephalic, atraumatic. No pharyngeal erythema. No thyromegaly. CARDIOVASCULAR: S1 and S2 present. No murmurs, rubs, or gallops. PULMONARY: Chest is clear to auscultation, no wheezing or crackles. ABDOMEN: Soft, nontender, nondistended, normoactive bowel sounds. No palpable organomegaly. MUSCULOSKELETAL: No joint swelling or deformity. EXTREMITIES: No cyanosis, clubbing, patient has 3+ pedal edema and venous stasis dermatosis with some skin breakdowns doesn't appear to be infected. NEUROLOGICAL: Gross neurological examination did not reveal any focal deficits. SKIN: No rashes. - Labs CBC & Chem 7: 08/02/18 09:01 08/03/18 07:07 Labs: Abnormal Lab Results - Last 24 Hours (Table) 08/02/18 08/02/18 08/02/18 Range/Units 11:34 16:23 20:39 Sodium (137-145) mmol/L Carbon Dioxide (22-30) mmol/L BUN (9-20) mg/dL Creatinine (0.66-1.25) mg/dL Glucose (74-99) mg/dL POC Glucose (mg/dL) 207 H 189 H 227 H (75-99) mg/dL Calcium (8.4-10.2) mg/dL Magnesium (1.6-2.3) mg/dL 08/03/18 08/03/18 Range/Units 07:07 07:11 Sodium 134 L (137-145) mmol/L Carbon Dioxide 19 L (22-30) mmol/L BUN 38 H (9-20) mg/dL Creatinine 1.78 H (0.66-1.25) mg/dL Glucose 140 H (74-99) mg/dL POC Glucose (mg/dL) 140 H (75-99) mg/dL Calcium 7.6 L (8.4-10.2) mg/dL Magnesium 1.5 L (1.6-2.3) mg/dL Assessment and Plan Plan: -Urinary tract infection possibility of Campuzano catheter related infection, patient's blood cultures are showing E. coli repeat blood cultures will be obtained patient will be started on ceftriaxone. Repeat blood cultures today -Acute renal failure secondary to diuretic therapy with probable contribution from acute tubular necrosis from sepsis will continue to monitor kidney function discontinue IV fluids as well as Lasix avoid nephrotoxic agents. Creatinine today is 1.7 mild improvement and at baseline -Possible chronic kidney disease stage III probable hypertensive nephrosclerosis. -Congestive heart failure possibility of chronic diastolic dysfunction with mild acute exacerbation, patient is being resumed on Lasix today. Monitor BMP -Chronic bilateral lower leg edema mostly from venous stasis patient does have venous stasis dermatosis and the patient is also getting Diflucan for intertrigo -Hypothyroidism -Hypertension -Recent bladder cancer
[2018-08-03 11:51] LABS: Glucose,Whole Blood 176 mg/dL (75-99)
[2018-08-03] MEDS: MAGNESIUM SULFATE-D5W PMX 1 GM in DEXTROSE/WATER 1 100ML.BAG IVPB SCH ×2 (12:49→17:36)
[2018-08-03] MEDS: SODIUM BICARBONATE TAB 650 MG TAB PO SCH ×2 (12:53→20:44)
[2018-08-03 17:14] LABS: Glucose,Whole Blood 213 mg/dL (75-99)
--- NOTE | 2018-08-03 17:22 | P.PN ---
Subjective Progress Note Date: 08/03/18 78 year old maleWith history of Parkinson disease and a history of bladder cancer who recently underwent transurethral resection of the tumor. The patient had difficulties with postoperative urinary retention and had a Campuzano catheter in place. Recently a catheter was removed and the patient was having increasing difficulties with urinary retention. Because of this the patient was brought into hospital rate was having difficulties with urinary retention but also had evidence of sepsis with his fever and leukocytosis. The patient had a bladder scan that showed 120 mL's of fluid and has been seen by urology without the need for urgent interventions at this time. The patient however has ongoing sepsis with elevated lactic acid and was receiving fluid resuscitation, but was also having difficulty with some congestive heart failure. This time the patient is a poor historian but relates that he feels poorly. 08/01/2018 upon arrival to the groin the patient sitting up in the chair he is conversational, he is no longer short of breath is no longer tachypneic feels considerably better and he ate some breakfast. This is a marked improvement since evaluation of yesterday. Campuzano catheter was placed and the patient is considerably improved after this has occurred. 08/02/2018 reveals the patient to be considerably improved. Sitting upright watching television without new acute complaints. 08/03/2018 she continues to have improvement. Looks forward to going home in the next day or so. Is denying fevers or chills. Continues to have his chronic back pain but it is no worse than usual. Objective - Vital Signs Vital signs: Vital Signs Temp 97.3 F L 08/03/18 15:12 Pulse 50 L 08/03/18 15:12 Resp 17 08/03/18 16:00 BP 125/65 08/03/18 15:12 Pulse Ox 98 08/03/18 15:12 Intake & Output 08/02/18 08/03/18 08/03/18 18:59 06:59 18:59 Intake Total 1200 1000 Output Total 400 615 100 Balance 800 385 -100 Weight 132.9 kg Intake: Intake, IV Titration 800 160 Amount Piperacillin-Tazobactam 3 50 .375 gm In Dextrose/Water 1 50ml.bag @ 12.5 mls/hr IVPB Q8HR [facility] Rx#: [id number] Sodium Chloride 0.9% 1, 60 000 ml @ 20 mls/hr IV . Q24H [facility] Rx#:[id number] cefTRIAXone 1,000 mg In 800 50 Sodium Chloride 0.9% 50 ml @ 100 mls/hr IVPB Q24H [facility] Rx#:[id number] Oral 840 Other 400 Output: Urine 400 615 100 Other: Voiding Method Urinal Urinal Urinal # Voids 2 3 3 - Exam 78-year-old male much improved from yesterday respiratory distress is resolved, sitting up in the chair HEENT: Anicteric conjunctiva are pink and moist nasal mucosa grossly intact without significant lesions, there is no thrush. Poor dentition Neck: The neck is supple without significant lymphadenopathy or thyromegaly. Lungs: Few basilar crackles are noted no distinct dullness or egophony was noted Heart: Irregular with an audible S1 and S2 soft S4 no distinct murmur click or rub PMI was nondisplaced without heave or thrill Abdomen: Positive bowel sounds soft and nontender without palpable masses or organomegaly. There was no guarding or rebound. Extremities: The upper extremities have excellent pulses they are symmetric, no significant petechiae or telangiectasia. No splinter hemorrhages were noted. Lower extremities have bilateral edema evidence of chronic skin changes from his chronic edema with thickened dry skin no open wounds are noted at this time Neuro: Awake alert conversational oriented to person place and time, the parkinsonian L tremor is minimal - Labs CBC & Chem 7: 08/02/18 09:01 08/03/18 07:07 Labs: Abnormal Lab Results - Last 24 Hours (Table) 08/02/18 08/03/18 08/03/18 Range/Units 20:39 07:07 07:11 Sodium 134 L (137-145) mmol/L Carbon Dioxide 19 L (22-30) mmol/L BUN 38 H (9-20) mg/dL Creatinine 1.78 H (0.66-1.25) mg/dL Glucose 140 H (74-99) mg/dL POC Glucose (mg/dL) 227 H 140 H (75-99) mg/dL Calcium 7.6 L (8.4-10.2) mg/dL Magnesium 1.5 L (1.6-2.3) mg/dL 08/03/18 08/03/18 Range/Units 11:36 17:02 Sodium (137-145) mmol/L Carbon Dioxide (22-30) mmol/L BUN (9-20) mg/dL Creatinine (0.66-1.25) mg/dL Glucose (74-99) mg/dL POC Glucose (mg/dL) 176 H 213 H (75-99) mg/dL Calcium (8.4-10.2) mg/dL Magnesium (1.6-2.3) mg/dL Microbiology - Last 24 Hours (Table) 08/02/18 12:35 Blood Culture - Preliminary Blood No Growth after 24 hours Laboratory Results WBC 5.5 k/uL (3.8-10.6) 08/02/18 09: RBC 3.34 m/uL (4.30-5.90) L 08/02/18 09: Hgb 10.2 gm/dL (13.0-17.5) L 08/02/18 09: Hct 31.0 % (39.0-53.0) L 08/02/18 09: MCV 92.8 fL (80.0-100.0) 08/02/18 09: MCH 30.6 pg (25.0-35.0) 08/02/18 09: MCHC 33.0 g/dL (31.0-37.0) 08/02/18 09: RDW 13.5 % (11.5-15.5) 08/02/18 09:01 Plt Count 106 k/uL (150-450) L 08/02/18 09:01 Neutrophils % 74 % 08/02/18 09: Lymphocytes % 13 % 08/02/18 09: Monocytes % 6 % 08/02/18 09: Eosinophils % 3 % 08/02/18 09:01 Basophils % 0 % 08/02/18 09:01 Neutrophils # 4.1 k/uL (1.3-7.7) 08/02/18 09:01 Lymphocytes # 0.7 k/uL (1.0-4.8) L 08/02/18 09:01 Monocytes # 0.3 k/uL (0-1.0) 08/02/18 09:01 Eosinophils # 0.2 k/uL (0-0.7) 08/02/18 09: Basophils # 0.0 k/uL (0-0.2) 08/02/18 09:01 PT 10.4 sec (9.0-12.0) 07/30/18 23:11 INR 1.1 (<1.2) 07/30/18 23:11 APTT 20.8 sec (22.0-30.0) L 07/30/18 23:11 Sodium 134 mmol/L (137-145) L 08/03/18 07:07 Potassium 4.3 mmol/L (3.5-5.1) 08/03/18 07:07 Chloride 105 mmol/L (98-107) 08/03/18 07:07 Carbon Dioxide 19 mmol/L (22-30) L 08/03/18 07:07 Anion Gap 10 mmol/L 08/03/18 07:07 BUN 38 mg/dL (9-20) H 08/03/18 07:07 Creatinine 1.78 mg/dL (0.66-1.25) H 08/03/18 07:07 Est GFR (CKD-EPI)AfAm 42 (>60 ml/min/1.73 sqM) 08/03/18 07:07 Est GFR (CKD-EPI)NonAf 36 (>60 ml/min/1.73 sqM) 08/03/18 07:07 Glucose 140 mg/dL (74-99) H 08/03/18 07:07 POC Glucose (mg/dL) 213 mg/dL (75-99) H 08/03/18 17:02 POC Glu Front End Architect ID Samantha Mcgarry 08/03/18 17:[address] Glu mg/dL 180 07/30/18 23:11 Hemoglobin A1c 7.9 % (4.0-6.0) H 07/30/18 23:11 Lactic Ac Sepsis Rflx Y 08/01/18 02:35 Plasma Lactic Acid Riley 1.2 mmol/L (0.7-2.0) 08/01/18 05:58 Calcium 7.6 mg/dL (8.4-10.2) L 08/03/18 07:07 Magnesium 1.5 mg/dL (1.6-2.3) L 08/03/18 07:07 Total Bilirubin 2.8 mg/dL (0.2-1.3) H 08/02/18 09:01 AST 82 U/L (17-59) H 08/02/18 09:01 ALT 43 U/L (21-72) 08/02/18 09:01 Alkaline Phosphatase 204 U/L (38-126) H 08/02/18 09:01 Troponin I 0.034 ng/mL (0.000-0.034) 07/30/18 23:11 NT-Pro-B Natriuret Pep 4420 pg/mL 07/31/18 07:24 Total Protein 5.2 g/dL (6.3-8.2) L 08/02/18 09:01 Albumin 2.6 g/dL (3.5-5.0) L 08/02/18 09:01 Urine Color Yellow 07/30/18 22:55 Urine Appearance Clear (Clear) 07/30/18 22:55 Urine pH 5.0 (5.0-8.0) 07/30/18 22:55 Ur Specific Coram 1.009 (1.001-1.035) 07/30/18 22:55 Urine Protein Negative (Negative) 07/30/18 22:55 Urine Glucose (UA) 3+ (Negative) H 07/30/18 22:55 Urine Ketones Negative (Negative) 07/30/18 22:55 Urine Blood Moderate (Negative) H 07/30/18 22:55 Urine Nitrite Negative (Negative) 07/30/18 22:55 Urine Bilirubin Negative (Negative) 07/30/18 22:55 Urine Urobilinogen <2.0 mg/dL (<2.0) 07/30/18 22:55 Ur Leukocyte Esterase Small (Negative) H 07/30/18 22:55 Urine RBC 17 /hpf (0-5) H 07/30/18 22:55 Urine WBC 25 /hpf (0-5) H 07/30/18 22:55 Urine Mucus Rare /hpf (None) H 07/30/18 22:55 Microbiology 08/02/18 12:35 Blood Blood Culture - Preliminary No Growth after 24 hours 07/30/18 23:11 Blood Blood Culture Gram Stain - Final 07/30/18 23:11 Blood Blood Culture - Final Escherichia coli 07/30/18 22:55 Urine,Clean Catch Urine Culture - Final 07/30/18 23:11 Blood Blood Culture - Final Assessment and Plan (1) Urinary tract infection Current Visit: Yes Status: Acute Code(s): N39.0 - URINARY TRACT INFECTION, SITE NOT SPECIFIED SNOMED Code(s): 04733382 (2) Sepsis Current Visit: Yes Status: Acute Code(s): A41.9 - SEPSIS, UNSPECIFIED ORGANISM SNOMED Code(s): 75192066 (3) Gram-negative bacteremia Narrative/Plan: 78-year-old male with history of Parkinson's disease, bladder cancer with recent transurethral resection presents to Hospital of evidence of urinary retention, and gram-negative sepsis. Patient's records are reviewed and there is a history of prior E. coli as well as Staphylococcus epidermidis in his urine both susceptible to Zosyn a history of highly resistant organisms. We'll continue Zosyn for now while cultures are in process. Adjust the antibiotics as indicated. At this time the patient is having some difficulties with respiratory distress and additional Lasix is given however the patient is having an elevated lactic acid continues to need fluid resuscitation. Constantly fluids will be given and will utilize Lasix to help with his pulmonary status. The patient is quite ill and the nursing staff is discussing the care with the primary care service. 08/01/2018 reveals the patient to be considerably improved in the last day. The lactic acidosis has resolved. Leukocytosis improved. Awaiting the final identification of the bacteria in the urine and the blood. The patient was fluid resuscitated and also received diuretic therapy which is allowed improvement of the pulmonary edema and resolution of the lactic acidosis. The patient is feeling considerably better his able to eat. Once cultures are available to determine what her options are for antibiotic therapy the time of discharge. Unclear with the discharge plan will be as far as setting. Does have a Campuzano catheter in place. Will look for input from urology in that once this was placed there is no major improvement of the status and would consider utilization of the catheter at least short-term after discharge until he has further urological follow-up. 08/02/2018 patient is now further improved. Cultures show evidence of E. coli that is quite susceptible. If he improves we will transition his antibiotic therapy to oral ciprofloxacin 500 mg orally every 12 hours to complete 14 days of antibiotics for his bacteremic urinary tract infection. He does have a Campuzano catheter in place and has been seen by urology. Likely discharged with the catheter in place and follow up with urology in the outpatient setting. 08/03/2018 reveals further improvement. Patient is on amiodarone and constantly will not be able to be treated with oral ciprofloxacin at home. He is doing well with ceftriaxone and will plan on a 14 day course of ceftriaxone the outpatient setting. Orders are sent to outpatient infusion clinic to evaluate. Will need a midline catheter placed. Current Visit: Yes Status: Acute Code(s): R78.81 - BACTEREMIA SNOMED Code( s): 066646924686
[2018-08-03 20:19] LABS: Glucose,Whole Blood 247 mg/dL (75-99)
[2018-08-03 23:54] VITALS: RESP 16
[2018-08-04] MEDS: SODIUM CHLORIDE 0.9% 1,000 ML IV SCH (02:18)
[2018-08-04] MEDS: LEVOTHYROXINE 88 MCG TAB PO SCH (05:12)
[2018-08-04] MEDS: traMADol 50 MG TAB PO PRN (05:12)
[2018-08-04 07:38] LABS: Glucose,Whole Blood 165 mg/dL (75-99)
[2018-08-04] MEDS: CARBIDOPA-LEVODOPA 25-100 MG 1 EACH TAB PO SCH ×2 (07:47→15:22)
[2018-08-04] MEDS: SODIUM BICARBONATE TAB 650 MG TAB PO SCH (07:47)
[2018-08-04] MEDS: AMIODARONE 200 MG TAB PO SCH (07:47)
[2018-08-04] MEDS: HEPARIN SODIUM,PORCINE 5,000 UNIT/ML 1 ML VIAL SQ SCH (07:47)
[2018-08-04] MEDS: METOPROLOL TARTRATE 50 MG TAB PO SCH (07:47)
[2018-08-04] MEDS: TAMSULOSIN 0.4 MG CAP.ER.24H PO SCH (07:47)
[2018-08-04] MEDS: INSULIN ASPART 100 UNIT/ML 1 ML 10 ML VIAL SQ SCH ×2 (07:48→13:05)
--- NOTE | 2018-08-04 10:23 | P.PN ---
Subjective Patient is seen in follow-up for acute kidney injury on chronic kidney disease. Renal function is starting to improve with creatinine down to 1.78 yesterday. Patient has chronic kidney disease stage III with baseline creatinine in the range of 1.4-1.6 secondary to nephrosclerosis. Campuzano catheter has been removed. He has been voiding. He is noted to have E. coli bacteremia and is maintained on antibiotics. Vital signs are stable. General: The patient appeared well nourished and normally developed. HEENT: Head exam is unremarkable. Neck is without jugular venous distension. LUNGS: Lungs are clear to auscultation and percussion. Breath sounds decreased. HEART: Rate and Rhythm are regular. First and second heart sounds normal. No murmurs, rubs or gallops. ABDOMEN: Abdominal exam reveals normal bowel sounds. Non-tender and non- distended. No evidence of peritonitis. EXTREMITITES: 1+ edema. Lower extremities wrapped. Objective - Vital Signs Vital signs: Vital Signs Temp 97.7 F 08/04/18 07:00 Pulse 62 08/04/18 07:00 Resp 16 08/04/18 08:10 BP 173/78 08/04/18 07:00 Pulse Ox 94 L 08/04/18 07:00 Intake & Output 08/03/18 08/04/18 08/04/18 18:59 06:59 18:59 Intake Total 680 540 Output Total 100 1625 Balance -100 -945 540 Weight 132.9 kg Intake: Intake, IV Titration 140 Amount Magnesium Sulfate-D5w Pmx 100 1 gm In Dextrose/Water 1 100ml.bag @ 100 mls/hr IVPB Q1H [facility] Rx#: [id number] Sodium Chloride 0.9% 1, 40 000 ml @ 20 mls/hr IV . Q24H [facility] Rx#:[id number] Oral 540 540 Output: Urine 100 1625 Other: Voiding Method Urinal Urinal # Voids 3 1 # Bowel Movements 1 # Emeses 0 - Labs CBC & Chem 7: 08/02/18 09:01 08/03/18 07:07 Labs: Abnormal Lab Results - Last 24 Hours (Table) 08/03/18 08/03/18 08/03/18 Range/Units 11:36 17:02 20:08 POC Glucose (mg/dL) 176 H 213 H 247 H (75-99) mg/dL 08/04/18 Range/Units 07:16 POC Glucose (mg/dL) 165 H (75-99) mg/dL Microbiology - Last 24 Hours (Table) 08/03/18 07:07 Blood Culture - Preliminary Blood No Growth after 24 hours 08/02/18 12:35 Blood Culture - Preliminary Blood No Growth after 24 hours Assessment and Plan Plan: Assessment: 1. Nonoliguric acute kidney injury secondary to ATN secondary to sepsis and hypotension. Creatinine peaked at 2.1 at this admission. Down to 1.78 yesterday. No proteinuria on UA. No hydronephrosis noted on renal ultrasound. 2. E. coli bacteremia maintained on IV antibiotics. 3. Insulin-dependent diabetes mellitus. 4. Metabolic acidosis secondary to acute kidney injury and lactic acidosis. 5. Volume overload secondary to IV fluids. Status post Lasix. Improved. 6. Bladder cancer. Patient follows with urology. Campuzano catheter removed. 7. Chronic kidney disease stage III secondary to nephrosclerosis with baseline creatinine in the range of 1.4-1.6. 8. Hypomagnesemia from diuretics. S/p replacement. Plan: Avoid nephrotoxins. Encouraged oral intake. Continue to hold lisinopril for now. Continue to monitor renal function and urine output. Maintain oral bicarbonate.
[2018-08-04 11:02] LABS: Magnesium 1.9 mg/dL (1.6-2.3); Potassium 3.8 mmol/L (3.5-5.1)
[2018-08-04 11:29] LABS: Glucose,Whole Blood 269 mg/dL (75-99)
[2018-08-04 14:36] VITALS: BP 125/72; PULSE 52; TEMP 98
--- NOTE | 2018-08-05 10:43 | P.DS ---
Providers Date of admission: 07/31/18 16:38 Attending physician: Dorene Smith Consults: 07/31/18 00:04 Consult Physician Routine Consulting Provider: Familia Rowell Consult Reason/Comments: established patient, UTI after cid removal Do you want consulting provider notified?: Yes, Notify in am 07/31/18 05:23 Consult Physician Routine Consulting Provider: Ross Bueno Consult Reason/Comments: sepsis, uti Do you want consulting provider notified?: Yes 07/31/18 13:47 Consult Physician Routine Consulting Provider: Le Domínguez Consult Reason/Comments: Acute renal failure Do you want consulting provider notified?: Yes 08/01/18 10:23 Consult Physician Routine Consulting Provider: Ovi Morgan Consult Reason/Comments: GOSIA on CKD Do you want consulting provider notified?: Yes Primary care physician: Joselito Prior Hospital Course: Final Diagnoses: -Urinary tract infection possibility of Cid catheter related infection, present on admission. -E. coli bacteremia. -Acute renal failure secondary to diuretic therapy , acute tubular necrosis secondary to sepsis. -Possible chronic kidney disease stage III probable hypertensive nephrosclerosis. -Acute on chronic Congestive heart failure possibility of chronic diastolic dysfunction, secondary to volume overload from IV fluids -Chronic bilateral lower leg edema mostly from venous stasis, chronic venous stasis dermatosis, intertrigo -Hypothyroidism -Hypertension -Recent bladder cancer -Metabolic acidosis secondary to acute renal failure, lactic acidosis Hospital course: This is a 78-year-old patient is admitted for urinary tract infection does have a Cid catheter had superficial bladder cancer for which patient underwent urological procedure and underwent transurethral resection of prostate. Patient was septic with lactic is doses because of which patient was given IV fluids resulting in hypoxemia. Patient hypoxemia improved patient is getting both Lasix and IV fluids both of which will be discontinued his last 2 lactic acid is 1.2 patient although has significant pedal edema patient had ejection fraction of 55% during his previous hospitalization. I was told patient was having brief episodes of A. fib we'll continue to monitor if he goes into A. fib then patient will be evaluated for possibility of anticoagulation at that time patient remains to have Cid catheter. Patient is presently on Zosyn urine cultures positive for gram-negative bacilli and staph epidermidis. Infectious disease following the patient. Obtain the chest x-ray which showed small bilateral pleural effusions consistent with heart failure since his vitals are stable now on hold off on the diuretic therapy as there is worsening creatinine. 08/02/2018 Nephrology is recommending cystoscopy because of hydronephrosis of one kidney he has, his serum creatinine remains stable patient was started on IV Lasix. She does have significant bilateral pedal edema. Cid catheter was removed 08/03/2018 No overnight events. Patient received Lasix yesterday patient does have chronic pedal edema with chronic venous stasis dermatosis which is not expected to improve much. Microbiology 08/02/18 12:35 Blood Blood Culture - Preliminary No Growth after 48 hours 08/03/18 07:07 Blood Blood Culture - Preliminary No Growth after 24 hours 07/30/18 23:11 Blood Blood Culture Gram Stain - Final 07/30/18 23:11 Blood Blood Culture - Final Escherichia coli 07/30/18 22:55 Urine,Clean Catch Urine Culture - Final 07/30/18 23:11 Blood Blood Culture - Final Significant clinical improvement. Midline catheter placed for IV antibiotic therapy at discharge. Cleared by nephrology and infectious disease for discharge. Patient is being discharged home in a stable condition with guarded prognosis. EXAM: GENERAL: Alert & oriented X3, no acute distress.CV: Regular S1 and S2. LUNGS: Diminished. ABD: Soft nondistended, nontender, positive bowel sounds. EXTR: Chronic lower extremity edema, 1+ edema with bilateral Jose E wraps clean dry and intact.NEURO: No focal deficits. The impression and plan of care has been dictated as directed. : I performed a history and examination of this patient, discussed the same with the dictator. I agree with the dictator's note ,documented as a scribe. Any additional findings or plans will be noted. Time taken: 35 minutes Patient Condition at Discharge: Stable Plan - Discharge Summary Discharge Rx Participant: Yes New Discharge Prescriptions: New cefTRIAXone [Rocephin] 1,000 mg IVP Q24HR #14 ml Acetaminophen Tab [Tylenol] 650 mg PO Q6HR PRN tab PRN Reason: Fever and/ or MILD Pain SILVER sulfADIAZINE CREAM [Silvadene Cream] 1 applic TOPICAL DAILY applic Sodium Bicarbonate Tab 650 mg PO BID #30 tab Tamsulosin [Flomax] 0.4 mg PO PC-BRKFST #30 cap.er.24h Furosemide [Lasix] 40 mg PO DAILY #1 tablet Continue Insulin Lispro Protamin/Lispro [humaLOG Mix 75-25 Kwikpen] 70 - 75 unit SQ BID PRN PRN Reason: scale Albuterol Inhaler [Ventolin Hfa Inhaler] 2 puff INHALATION RT-Q6H PRN PRN Reason: Dyspnea Amiodarone HCl 200 mg PO QAM Metoprolol Tartrate 50 mg PO QAM Carbidopa-Levodopa 25-100 mg [Sinemet 25-100 mg] 2 tab PO TID Levothyroxine Sodium [Synthroid] 88 mcg PO QAM Discontinued Furosemide 40 mg PO BID Lisinopril [Zestril] 5 mg PO QAM Discharge Medication List Insulin Lispro Protamin/Lispro [humaLOG Mix 75-25 Kwikpen] 70 - 75 unit SQ BID PRN 02/26/14 [History] Albuterol Inhaler [Ventolin Hfa Inhaler] 2 puff INHALATION RT-Q6H PRN 03/15/14 [ History] Amiodarone HCl 200 mg PO QAM 04/21/14 [History] Metoprolol Tartrate 50 mg PO QAM 04/21/16 [History] Carbidopa-Levodopa 25-100 mg [Sinemet 25-100 mg] 2 tab PO TID 07/08/16 [History] Levothyroxine Sodium [Synthroid] 88 mcg PO QAM 07/01/18 [History] cefTRIAXone [Rocephin] 1,000 mg IVP Q24HR #14 ml 08/03/18 [Rx] Acetaminophen Tab [Tylenol] 650 mg PO Q6HR PRN tab 08/04/18 [Rx] Furosemide [Lasix] 40 mg PO DAILY #1 tablet 08/04/18 [Rx] SILVER sulfADIAZINE CREAM [Silvadene Cream] 1 applic TOPICAL DAILY applic 08/04 [Rx] Sodium Bicarbonate Tab 650 mg PO BID #30 tab 08/04/18 [Rx] Tamsulosin [Flomax] 0.4 mg PO PC-BRKFST #30 cap.er.24h 08/04/18 [Rx] Follow up Appointment(s)/Referral(s): Joselito Wallis DO [Primary Care Provider] - 08/09/18 10:00 am Ovi Morgan DO [STAFF PHYSICIAN] - 1 Week (Staff unable to set up follow appointment due to office being closed patient to please call Morning to set up follow up appointment) Familia Rowell MD [STAFF PHYSICIAN] - 1 Week (or as prev. scheduled) Ambulatory/Diagnostic Orders: Basic Metabolic Panel [LAB.AMB] Location: None Selected Complete Blood Count w/diff [LAB.AMB] Location: None Selected Patient Instructions/Handouts: Urinary Tract Infection in Older Adults (DC) Activity/Diet/Wound Care/Special Instructions: Report to Dr. Childs office daily at 10:00 a.m. for IV antibiotic infusion Replaced by [facility] [address] [phone] Diet: Consistent carb Discharge Disposition: HOME SELF-CARE
== END 2018-08-04 18:59 | disposition home or self-care (01) | DRG 698 ==
LOC: EC 22:02 → 3NMEDONC 07-31 00:07 → 3SCARD 07-31 16:04 → OBSVTOIN 07-31 16:38 → 4SSUR 08-02 03:24
PROVIDERS: ADMIT Hospitalist; ATTEND Hospitalist
PROC: 05HY33Z Insertion of Infusion Device into Upper Vein, Percutaneous Approach (ICD-10-PCS; principal; 2018-07-30)
DX: T83.518A Infection and inflammatory reaction due to other urinary catheter, initial encounter (principal); N17.0 Acute kidney failure with tubular necrosis; R65.20 Severe sepsis without septic shock; I50.33 Acute on chronic diastolic (congestive) heart failure; A41.51 Sepsis due to Escherichia coli [E. coli]; I13.0 Hypertensive heart and chronic kidney disease with heart failure and stage 1 through stage 4 chronic kidney disease, or unspecified chronic kidney disease; E87.2 Acidosis; N13.6 Pyonephrosis; L03.116 Cellulitis of left lower limb; L03.115 Cellulitis of right lower limb; Y84.6 Urinary catheterization as the cause of abnormal reaction of the patient, or of later complication, without mention of misadventure at the time of the procedure; T50.2X5A Adverse effect of carbonic-anhydrase inhibitors, benzothiadiazides and other diuretics, initial encounter; E11.22 Type 2 diabetes mellitus with diabetic chronic kidney disease; N18.3 Chronic kidney disease, stage 3 (moderate); E03.9 Hypothyroidism, unspecified; Z85.51 Personal history of malignant neoplasm of bladder; Z90.79 Acquired absence of other genital organ(s); I87.8 Other specified disorders of veins; L30.4 Erythema intertrigo; R09.02 Hypoxemia; J44.9 Chronic obstructive pulmonary disease, unspecified; G20 Parkinson's disease; M51.36 Other intervertebral disc degeneration, lumbar region; I25.2 Old myocardial infarction; H26.9 Unspecified cataract; Z87.891 Personal history of nicotine dependence; Z80.3 Family history of malignant neoplasm of breast; Z82.49 Family history of ischemic heart disease and other diseases of the circulatory system; Z83.518 Family history of other specified eye disorder; Z79.4 Long term (current) use of insulin; Z79.899 Other long term (current) drug therapy; Z79.890 Hormone replacement therapy; Z88.6 Allergy status to analgesic agent; I87.2 Venous insufficiency (chronic) (peripheral); B36.8 Other specified superficial mycoses; I95.9 Hypotension, unspecified; E83.42 Hypomagnesemia; D63.1 Anemia in chronic kidney disease; G89.29 Other chronic pain; I25.10 Atherosclerotic heart disease of native coronary artery without angina pectoris
CPT/HCPCS: 36415; 36569; 71045; 71046; 76770; 76937; 80048; 80053; 81001; 83036; 83605; 83735; 83880; 84484; 85025; 85610; 85730; 87040; 87077; 87086; 87186; 93005; 94640; 94760; 96365; 99285

== ENCOUNTER 2018-10-27 00:30 | Inpatient (IN) | payer MEDICARE ==
[2018-10-27 00:42] LABS: Glucose,Whole Blood 532 mg/dL (75-99)
--- NOTE | 2018-10-27 00:59 | ED ---
General Adult HPI - General Chief complaint: Recheck/Abnormal Lab/Rx Stated complaint: hyperglycemia Time Seen by Provider: 10/27/18 00:37 Source: patient Mode of arrival: EMS Limitations: physical limitation - History of Present Illness Initial comments: Bolivar is a 78-year-old male is brought to the ED today via EMS for evaluation of generalized malaise and hyperglycemia. Family reports he's been sleeping a lot not been very active, this evening he seemed much more sleepy and shaky than usual, he does have a history of Parkinson's however he seemed much more shaky on unlike himself so they checked his blood sugar noted that it was greater than 600 at which time EMS was contacted. EMS reports the patient was drowsy but arousable, to have a glucose that was reading high on their monitor. He is subsequently transferred to the ER. Upon arrival patient reports that he is not feeling well. He denies any specific complaints, denies any chest pain, palpitations or shortness of breath. - Related Data Home Medications Medication Instructions Recorded Confirmed Insulin Lispro Protamin/Lispro 70 - 75 unit SQ BID PRN 02/26/14 07/30/18 [humaLOG Mix 75-25 Kwikpen] Albuterol Inhaler [Ventolin Hfa 2 puff INHALATION RT-Q6H PRN 03/15/14 07/30/18 Inhaler] Amiodarone HCl 200 mg PO QAM 04/21/14 07/30/18 Metoprolol Tartrate 50 mg PO QAM 04/21/16 07/30/18 Carbidopa-Levodopa 25-100 mg 2 tab PO TID 07/08/16 07/30/18 [Sinemet 25-100 mg] Levothyroxine Sodium [Synthroid] 88 mcg PO QAM 07/01/18 07/30/18 Previous Rx's Medication Instructions Recorded cefTRIAXone [Rocephin] 1,000 mg IVP Q24HR #14 ml 08/03/18 Acetaminophen Tab [Tylenol] 650 mg PO Q6HR PRN tab 08/04/18 Furosemide [Lasix] 40 mg PO DAILY #1 tablet 08/04/18 SILVER sulfADIAZINE CREAM 1 applic TOPICAL DAILY applic 08/04/18 [Silvadene Cream] Sodium Bicarbonate Tab 650 mg PO BID #30 tab 08/04/18 Tamsulosin [Flomax] 0.4 mg PO PC-BRKFST #30 cap.er.24h 08/04/18 Allergies Allergy/AdvReac Type Severity Reaction Status Date / Time aspirin Allergy Swelling Verified 07/30/18 22:39 NSAIDS (Non-Steroidal Allergy Swelling Verified 07/30/18 22:39 Anti-Inflamma Review of Systems ROS Statement: Those systems with pertinent positive or pertinent negative responses have been documented in the HPI. ROS Other: All systems not noted in ROS Statement are negative. Past Medical History Past Medical History: Cancer, Heart Failure, COPD, Diabetes Mellitus, Thyroid Disorder Additional Past Medical History / Comment(s): HX A-FLUTTER/TACHYCARDIA, TX W/ CARDIOVERSION, HAS BLADDER CA, CATARACTS, ABD HERNIA. PARKINSONS, DIVERTICULITIS. EDEMA FEET/LEGS,GI BLEED.DDD lower spine. Hx. of Bladder tumor. IDC removed 07-27-18. Last Myocardial Infarction Date:: UNK History of Any Multi-Drug Resistant Organisms: None Reported Past Surgical History: Adenoidectomy, Bladder Surgery, Tonsillectomy Additional Past Surgical History / Comment(s): 2013 CARDIOVERSION, SAL. BLADDER TUMOR REMOVED,cystoscopy with bladder CA TREATMENTS Past Anesthesia/Blood Transfusion Reactions: Previous Problems w/ Anesthesia Additional Past Anesthesia/Blood Transfusion Reaction / Comment(s): HX CLAUSTROPHOBIA Past Psychological History: Anxiety Smoking Status: Former smoker Past Alcohol Use History: None Reported Past Drug Use History: None Reported - Past Family History Father Family Medical History: Cancer Additional Family Medical History / Comment(s): SISTERS W/ BREAST CA. Mother Family Medical History: Coronary Artery Disease (CAD) Additional Family Medical History / Comment(s): Macular degeneration Sister(s) Family Medical History: Cancer Additional Family Medical History / Comment(s): breast CA General Exam - General Exam Comments Initial Comments: Physical Exam GENERAL: Chronically ill-appearing debilitated gentleman HENT: Normocephalic, Atraumatic. EYES: PERRL, EOMI PULMONARY: Tachypnea, decreased lung sounds at bilateral bases secondary to body habitus CARDIOVASCULAR: There is a regular rate and rhythm without any murmurs gallops or rubs. ABDOMEN: Obese SKIN: Skin is clear with no lesions or rashes and otherwise unremarkable. : Deferred NEUROLOGIC: Sleepy but wakes, is alert and oriented Tremor MUSCULOSKELETAL: General debility PSYCHIATRIC: Normal psychiatric evaluation. Limitations: no limitations Limitations: physical limitation Course Vital Signs 10/27/18 10/27/18 00:35 03:05 Temperature 103.1 F H 99.0 F Pulse Rate 60 Respiratory 16 Rate Blood Pressure 157/86 O2 Sat by Pulse 98 Oximetry EKG Findings - EKG Comments: EKG Findings:: EKG obtained 12:50 AM, rate is 85 rhythm is sinus there is left axis deviation, normal intervals, FL 180, QRS 110, QTC 449. There is no acute ST elevations or depressions noted evidence of acute ischemia or infarction. Procedures - Sepsis Sepsis Focused Exam #1 Sepsis Focused Exam Date: 10/27/18 Sepsis Focused Exam Time: 03:22 Sepsis Focused Exam Complete: Yes Vital Signs & RN Notes Reviewed: Yes Capillary Refill: < 2 Seconds: Fingers, Toes Peripheral Pulses: Normal: Radial (R), Radial (L) Skin Color: Normal for Patient Respiratory Exam: decreased breath sounds (bilateral bases) Cardiovascular Exam: regular rate Medical Decision Making - Medical Decision Making Patient was seen and evaluated, patient was noted to be febrile hyperglycemic upon arrival Labs and imaging were ordered Sepsis workup was initiated as well as workup for possible DKA Chest x-ray suggestive of left lower lobe pneumonia, Rocephin and azithromycin ordered Labs reveal hyperglycemia with no evidence of DKA there is no acetone, no elevated anion gap DSE and within normal limits Insulin ordered Patient was updated on findings of hyperglycemia and leukocytosis as well as F lower lobe pneumonia agreeable to plan for admission Patient primary care physician Dr. Marrero with no admission preferences in this hospital. Patient care was discussed with the on-call medicine team, [facility] physician group Dr. Raphael who accepts the admission for sepsis secondary to left lower lobe pneumonia as well as hyperglycemia with no evidence of DKA. - Lab Data Result diagrams: 10/27/18 01:02 10/27/18 01:02 Lab Results 10/27/18 10/27/18 10/27/18 Range/Units 00:41 01:02 01:02 WBC (3.8-10.6) k/uL RBC (4.30-5.90) m/uL Hgb (13.0-17.5) gm/dL Hct (39.0-53.0) % MCV (80.0-100.0) fL MCH (25.0-35.0) pg MCHC (31.0-37.0) g/dL RDW (11.5-15.5) % Plt Count (150-450) k/uL Neutrophils % % Lymphocytes % % Monocytes % % Eosinophils % % Basophils % % Neutrophils # (1.3-7.7) k/uL Lymphocytes # (1.0-4.8) k/uL Monocytes # (0-1.0) k/uL Eosinophils # (0-0.7) k/uL Basophils # (0-0.2) k/uL PT (9.0-12.0) sec INR (<1.2) APTT (22.0-30.0) sec Sodium 137 (137-145) mmol/L Potassium 4.1 (3.5-5.1) mmol/L Chloride 100 (98-107) mmol/L Carbon Dioxide 25 (22-30) mmol/L Anion Gap 12 mmol/L BUN 19 (9-20) mg/dL Creatinine 1.46 H (0.66-1.25) mg/dL Est GFR (CKD-EPI)AfAm 53 (>60 ml/min/1.73 sqM) Est GFR (CKD-EPI)NonAf 46 (>60 ml/min/1.73 sqM) Glucose 544 H* (74-99) mg/dL POC Glucose (mg/dL) 532 H (75-99) mg/dL POC Glu Internal Affairs Investigator ID Stacie Donato Plasma Lactic Acid Riley (0.7-2.0) mmol/L Calcium 8.7 (8.4-10.2) mg/dL Total Bilirubin 2.7 H (0.2-1.3) mg/dL AST 214 H (17-59) U/L ALT 50 (21-72) U/L Alkaline Phosphatase 458 H (38-126) U/L Total Creatine Kinase 49 L (55-170) U/L CK-MB (CK-2) 0.9 (0.0-2.4) ng/mL CK-MB (CK-2) Rel Index 1.8 Troponin I <0.012 (0.000-0.034) ng/mL Total Protein 6.4 (6.3-8.2) g/dL Albumin 3.5 (3.5-5.0) g/dL Urine Color Urine Appearance (Clear) Urine pH (5.0-8.0) Ur Specific [place] (1.001-1.035) Urine Protein (Negative) Urine Glucose (UA) (Negative) Urine Ketones (Negative) Urine Blood (Negative) Urine Nitrite (Negative) Urine Bilirubin (Negative) Urine Urobilinogen (<2.0) mg/dL Ur Leukocyte Esterase (Negative) Acetone, Qual Negative (Negative) Influenza Type A RNA (Not Detectd) Influenza Type B (PCR) (Not Detectd) 10/27/18 10/27/18 10/27/18 Range/Units 01:02 01:02 01:02 WBC 16.4 H (3.8-10.6) k/uL RBC 4.56 (4.30-5.90) m/uL Hgb 13.4 (13.0-17.5) gm/dL Hct 42.0 (39.0-53.0) % MCV 92.0 (80.0-100.0) fL MCH 29.4 (25.0-35.0) pg MCHC 32.0 (31.0-37.0) g/dL RDW 13.6 (11.5-15.5) % Plt Count 228 (150-450) k/uL Neutrophils % 93 % Lymphocytes % 3 % Monocytes % 2 % Eosinophils % 1 % Basophils % 0 % Neutrophils # 15.3 H (1.3-7.7) k/uL Lymphocytes # 0.6 L (1.0-4.8) k/uL Monocytes # 0.4 (0-1.0) k/uL Eosinophils # 0.2 (0-0.7) k/uL Basophils # 0.0 (0-0.2) k/uL PT (9.0-12.0) sec INR (<1.2) APTT (22.0-30.0) sec Sodium (137-145) mmol/L Potassium (3.5-5.1) mmol/L Chloride (98-107) mmol/L Carbon Dioxide (22-30) mmol/L Anion Gap mmol/L BUN (9-20) mg/dL Creatinine (0.66-1.25) mg/dL Est GFR (CKD-EPI)AfAm (>60 ml/min/1.73 sqM) Est GFR (CKD-EPI)NonAf (>60 ml/min/1.73 sqM) Glucose (74-99) mg/dL POC Glucose (mg/dL) (75-99) mg/dL POC Glu Internal Affairs Investigator ID Plasma Lactic Acid Riley 4.1 H* (0.7-2.0) mmol/L Calcium (8.4-10.2) mg/dL Total Bilirubin (0.2-1.3) mg/dL AST (17-59) U/L ALT (21-72) U/L Alkaline Phosphatase (38-126) U/L Total Creatine Kinase (55-170) U/L CK-MB (CK-2) (0.0-2.4) ng/mL CK-MB (CK-2) Rel Index Troponin I (0.000-0.034) ng/mL Total Protein (6.3-8.2) g/dL Albumin (3.5-5.0) g/dL Urine Color Urine Appearance (Clear) Urine pH (5.0-8.0) Ur Specific [place] (1.001-1.035) Urine Protein (Negative) Urine Glucose (UA) (Negative) Urine Ketones (Negative) Urine Blood (Negative) Urine Nitrite (Negative) Urine Bilirubin (Negative) Urine Urobilinogen (<2.0) mg/dL Ur Leukocyte Esterase (Negative) Acetone, Qual (Negative) Influenza Type A RNA Not Detected (Not Detectd) Influenza Type B (PCR) Not Detected (Not Detectd) 10/27/18 10/27/18 10/27/18 Range/Units 01:02 01:47 02:23 WBC (3.8-10.6) k/uL RBC (4.30-5.90) m/uL Hgb (13.0-17.5) gm/dL Hct (39.0-53.0) % MCV (80.0-100.0) fL MCH (25.0-35.0) pg MCHC (31.0-37.0) g/dL RDW (11.5-15.5) % Plt Count (150-450) k/uL Neutrophils % % Lymphocytes % % Monocytes % % Eosinophils % % Basophils % % Neutrophils # (1.3-7.7) k/uL Lymphocytes # (1.0-4.8) k/uL Monocytes # (0-1.0) k/uL Eosinophils # (0-0.7) k/uL Basophils # (0-0.2) k/uL PT 9.9 (9.0-12.0) sec INR 0.9 (<1.2) APTT 20.1 L (22.0-30.0) sec Sodium (137-145) mmol/L Potassium (3.5-5.1) mmol/L Chloride (98-107) mmol/L Carbon Dioxide (22-30) mmol/L Anion Gap mmol/L BUN (9-20) mg/dL Creatinine (0.66-1.25) mg/dL Est GFR (CKD-EPI)AfAm (>60 ml/min/1.73 sqM) Est GFR (CKD-EPI)NonAf (>60 ml/min/1.73 sqM) Glucose (74-99) mg/dL POC Glucose (mg/dL) 460 H (75-99) mg/dL POC Glu Internal Affairs Investigator ID Chichi Antoine Plasma Lactic Acid Riley (0.7-2.0) mmol/L Calcium (8.4-10.2) mg/dL Total Bilirubin (0.2-1.3) mg/dL AST (17-59) U/L ALT (21-72) U/L Alkaline Phosphatase (38-126) U/L Total Creatine Kinase (55-170) U/L CK-MB (CK-2) (0.0-2.4) ng/mL CK-MB (CK-2) Rel Index Troponin I (0.000-0.034) ng/mL Total Protein (6.3-8.2) g/dL Albumin (3.5-5.0) g/dL Urine Color Yellow Urine Appearance Clear (Clear) Urine pH 5.5 (5.0-8.0) Ur Specific [place] 1.020 (1.001-1.035) Urine Protein Negative (Negative) Urine Glucose (UA) 4+ H (Negative) Urine Ketones Negative (Negative) Urine Blood Negative (Negative) Urine Nitrite Negative (Negative) Urine Bilirubin Negative (Negative) Urine Urobilinogen 2.0 (<2.0) mg/dL Ur Leukocyte Esterase Negative (Negative) Acetone, Qual (Negative) Influenza Type A RNA (Not Detectd) Influenza Type B (PCR) (Not Detectd) Critical Care Time Critical Care Time: Yes Total Critical Care Time: 30 Critical Care Time: Critical care time was exclusive of separately billable procedures and treating other patients. Critical care was necessary to treat or prevent imminent or life-threatening deterioration. Critical care was time spent personally by me on the following activities: development of treatment plan with patient or surrogate, discussions with consultants, discussions with primary provider, evaluation of patient's response to treatment, examination of patient, obtaining history from patient or surrogate, ordering and performing treatments and interventions, ordering and review of laboratory studies, ordering and review of radiographic studies, pulse oximetry, re-evaluation of patient's condition and review of old charts. Disposition Clinical Impression: Hyperglycemia, Sepsis, Pneumonia Disposition: ADMITTED IP TO THIS [facility] Condition: Serious Is patient prescribed a controlled substance at d/c from ED?: No
[2018-10-27] MEDS: SODIUM CHLORIDE 0.9% 500 ML 500 ML IV SCH ×4 (01:14→02:19)
[2018-10-27 01:18] LABS: Basophils % (A) 0 %; Eosinophils # (A) 0.2 k/uL (0-0.7); Eosinophils % (A) 1 %; HGB 13.4 gm/dL (13.0-17.5); Lymphocytes # (A) 0.6 k/uL (1.0-4.8); Lymphocytes % (A) 3 %; MCH 29.4 pg (25.0-35.0); Mean Platelet Volume 8.2; Monocytes # (A) 0.4 k/uL (0-1.0); Monocytes % (A) 2 %; Neutrophils # (A) 15.3 k/uL (1.3-7.7); Neutrophils % (A) 93 %; Platelet Count 228 k/uL (150-450); RBC 4.56 m/uL (4.30-5.90); RDW 13.6 % (11.5-15.5); WBC 16.4 k/uL (3.8-10.6)
--- NOTE | 2018-10-27 01:28 | XR ---
EXAMINATION TYPE: XR chest 1V portable DATE OF EXAM: 10/27/2018 COMPARISON: 08/01/2018 HISTORY: Fever TECHNIQUE: Single frontal view of the chest is obtained. FINDINGS: There is probably some infiltrate at the left lung base. The other lung miller are clear. There is no heart failure. Heart appears enlarged. IMPRESSION: There is probably some new mild left lower lobe pneumonia compared to last exam. No hear t failure.
[2018-10-27 01:30] LABS: ALT 50 U/L (21-72); AST 214 U/L (17-59); Albumin 3.5 g/dL (3.5-5.0); Alkaline Phosphatase 458 U/L (38-126); Anion Gap 12 mmol/L; Blood Urea Nitrogen 19 mg/dL (9-20); Calcium 8.7 mg/dL (8.4-10.2); Carbon Dioxide 25 mmol/L (22-30); Chloride 100 mmol/L (98-107); Potassium 4.1 mmol/L (3.5-5.1); Sodium 137 mmol/L (137-145); Total Bilirubin 2.7 mg/dL (0.2-1.3); Total Protein 6.4 g/dL (6.3-8.2)
[2018-10-27 01:37] LABS: Glucose 544 mg/dL (74-99)
[2018-10-27 01:38] LABS: INR 0.9 (<1.2); Prothrombin Time 9.9 sec (9.0-12.0)
[2018-10-27 01:43] LABS: Partial Thromboplastin Time 20.1 sec (22.0-30.0)
[2018-10-27] MEDS ORDERED: INSULIN REGULAR 100 UNIT/ML VIAL SQ ONE (01:52)
[2018-10-27 02:00] LABS: Creatine Kinase 49 U/L (55-170)
[2018-10-27 02:00] LABS: Appearance,Urine Clear (Clear); Bilirubin,Urine Negative (Negative); Blood,Urine Negative (Negative); Color,Urine Yellow; Glucose,Urine (UA) 4+ (Negative); Ketones,Urine Negative (Negative); Leukocyte Esterase,Urine Negative (Negative); Nitrite,Urine Negative (Negative); PH, Urine 5.5 (5.0-8.0); Protein,Urine Negative (Negative)
[2018-10-27 02:14] LABS: Creatine Kinase MB 0.9 ng/mL (0.0-2.4); Troponin I <0.012 ng/mL (0.000-0.034)
[2018-10-27] MEDS ORDERED: ACETAMINOPHEN TAB 325 MG TAB PO STA (02:16)
[2018-10-27 02:25] LABS: Glucose,Whole Blood 460 mg/dL (75-99)
[2018-10-27] MEDS ORDERED: AZITHROMYCIN 500 MG in SODIUM CHLORIDE 0.9% 250 ML IVPB STA (02:33)
[2018-10-27] MEDS ORDERED: PNEUMONIA PROTOCOL UTILIZED 1 EACH MISC PO PRN (02:36)
[2018-10-27 03:41] LABS: Glucose,Whole Blood 398 mg/dL (75-99)
[2018-10-27 05:19] LABS: Glucose,Whole Blood 309 mg/dL (75-99)
[2018-10-27] MEDS ORDERED: INSULIN DETEMIR 100 UNIT/ML 10 ML VIAL SQ STA (06:45)
[2018-10-27] MEDS ORDERED: NALOXONE 0.4 MG/ML 1 ML VIAL IV PRN (07:14)
[2018-10-27] MEDS ORDERED: INSULIN ASPART 100 UNIT/ML 1 ML 10 ML VIAL SQ ONE (07:40)
[2018-10-27] MEDS ORDERED: SODIUM CHLORIDE 0.9% 1,000 ML IV ONE (07:43)
[2018-10-27] MEDS ORDERED: AMPICILLIN-SULBACTAM 1.5 GM in SODIUM CHLORIDE 0.9% 50 ML IVPB SCH (07:45)
[2018-10-27] MEDS: SODIUM CHLORIDE 0.9% 1,000 ML IV SCH ×3 (07:52→21:52)
--- NOTE | 2018-10-27 07:59 | P.HPIM ---
History of Present Illness H&P Date: 10/27/18 Chief Complaint: Elevated blood sugar and generalized weakness 78-year-old male with history of diabetes mellitus, hypertension, Parkinson disease Patient was brought into the hospital by his via EMS due to generalized weakness and inability to ambulate along with hyperglycemia. Patient reports that patient was at his baseline status of health up until yesterday however today he seemed to be off, feeling generalized weakness unable to ambulate on his own patient blood sugar was elevated today patient is not compliant with his medications as she refuses his medications most of the time per the . And he also forgets to take the medications. He seemed to be shaky today when she checked his blood sugar was over 600. Patient also threw up and possibly aspirated currently he denies any chest pain or trouble breathing he denies any abdominal pain or headache denies any fevers or chills but patient is very poor historian and he is asking to go home. So patient reports is not reliable at this time. In the ED chest x-ray revealed right lower lobe infiltrates this is suspicious for aspiration pneumonia He was also found to have hyperglycemia without ketosis and blood sugars are improving with insulin subcu Patient was also found to have elevated lactic acid this is most likely secondary to dehydration and suspected underlying sepsis secondary to aspiration pneumonia I will initiate IV fluid hydration, however will be slightly cautious as patient has reports of diastolic CHF in the past Medication list was provided by the patient Patient was also found to have elevated liver enzymes of obstructive pattern await abdominal ultrasound Patient has chronic CK D currently stable Review of Systems Pertinent positives as noted in HPI. All other systems were reviewed and are negative Past Medical History Past Medical History: Cancer, Heart Failure, COPD, Diabetes Mellitus, Thyroid Disorder Additional Past Medical History / Comment(s): HX A-FLUTTER/TACHYCARDIA, TX W/ CARDIOVERSION, HAS BLADDER CA, CATARACTS, ABD HERNIA. PARKINSONS, DIVERTICULITIS. EDEMA FEET/LEGS,GI BLEED.DDD lower spine. Hx. of Bladder tumor. IDC removed 07-27-18. Last Myocardial Infarction Date:: UNK History of Any Multi-Drug Resistant Organisms: None Reported Past Surgical History: Adenoidectomy, Bladder Surgery, Tonsillectomy Additional Past Surgical History / Comment(s): 2013 CARDIOVERSION, SAL. BLADDER TUMOR REMOVED,cystoscopy with bladder CA TREATMENTS Past Anesthesia/Blood Transfusion Reactions: Previous Problems w/ Anesthesia Additional Past Anesthesia/Blood Transfusion Reaction / Comment(s): HX CLAUSTROPHOBIA Past Psychological History: Anxiety Smoking Status: Former smoker Past Alcohol Use History: None Reported Past Drug Use History: None Reported - Past Family History Father Family Medical History: Cancer Additional Family Medical History / Comment(s): SISTERS W/ BREAST CA. Mother Family Medical History: Coronary Artery Disease (CAD) Additional Family Medical History / Comment(s): Macular degeneration Sister(s) Family Medical History: Cancer Additional Family Medical History / Comment(s): breast CA Medications and Allergies Home Medications Medication Instructions Recorded Confirmed Type Insulin Lispro Protamin/Lispro 70 - 75 unit SQ BID PRN 02/26/14 07/30/18 History [humaLOG Mix 75-25 Kwikpen] Albuterol Inhaler [Ventolin Hfa 2 puff INHALATION RT-Q6H PRN 03/15/14 07/30/18 History Inhaler] Amiodarone HCl 200 mg PO QAM 04/21/14 07/30/18 History Metoprolol Tartrate 50 mg PO QAM 04/21/16 07/30/18 History Carbidopa-Levodopa 25-100 mg 2 tab PO TID 07/08/16 07/30/18 History [Sinemet 25-100 mg] Sodium Bicarbonate Tab 650 mg PO BID #30 tab 08/04/18 Rx Tamsulosin [Flomax] 0.4 mg PO PC-BRKFST #30 cap.er.24h 08/04/18 Rx Furosemide [Lasix] 40 mg PO BID 10/27/18 10/27/18 History Allergies Allergy/AdvReac Type Severity Reaction Status Date / Time aspirin Allergy Swelling Verified 10/27/18 07:39 NSAIDS (Non-Steroidal Allergy Swelling Verified 10/27/18 07:39 Anti-Inflamma Physical Exam Vitals: Vital Signs Temp Pulse Resp BP Pulse Ox 10/27/18 05:40 83 14 104/45 97 10/27/18 05:10 81 16 100/53 96 10/27/18 04:40 80 19 96/47 97 10/27/18 04:20 84 19 112/70 97 10/27/18 04:11 80 17 94 L 10/27/18 04:02 85 20 95 10/27/18 04:00 78 18 126/60 96 10/27/18 03:05 99.0 F 10/27/18 02:30 85 16 151/65 96 10/27/18 02:00 99.0 F 78 16 113/54 97 10/27/18 01:30 87 19 119/56 95 10/27/18 00:35 103.1 F H 60 16 157/86 98 Intake and Output 10/26/18 10/26/18 10/27/18 14:59 22:59 06:59 Other: Weight 108.862 kg Constitutional: No acute distress, conversant, pleasant Eyes: Hint of scleral jaundice , moist conjunctiva, no lid-lag Pupils equal round reactive to light ENMT: NC/AT Oropharynx with oral thrush, dry mucous membranes, upper dentures Neck: Supple, FROM, no masses, or JVD No carotid bruits No thyromegaly Lungs: Clear to auscultation Clear to percussion Normal respiratory effort, no accessory muscle use Cardiovascular: Heart regular in rate and rhythm, No murmurs, gallops, or rubs No peripheral edema Abdominal: Soft Nontender, no guarding, rebound or rigidity Abdomen moving with respiration Normoactive bowel sounds No hepatomegaly, No splenomegaly No palpable mass No abdominal wall hernia noted Skin: Chronic dermatosclerosis of bilateral legs otherwise Normal temperature, tone, texture, turgor No induration No subcutaneous nodules No rash, lesions No ulcers Extremities: No digital cyanosis No clubbing Pedal pulses weak and symmetrical, capillary refill is immediate over the toes Radial pulses intact and symmetrical No calf tenderness , chronic dermatosclerosis bilateral legs Psychiatric: Alert and oriented to person, place not oriented to time Flat affect Poor judgment Neuro Muscles Strength 4/5 in upper extremities, patient couldn't move his lower extremities to assess strength due to positioning in bed but was able to slightly move his feet Sensation to light touch grossly present throughout Cranial nerves II-XII grossly intact No focal sensory deficits Lymphatics: no palpable cervical or supraclavicular , or inguinal lymph nodes Results CBC & Chem 7: 10/27/18 01:02 10/27/18 01:02 Labs: Abnormal Lab Results - Last 24 Hours (Table) 10/27/18 10/27/18 10/27/18 Range/Units 00:41 01:02 01:02 WBC (3.8-10.6) k/uL Neutrophils # (1.3-7.7) k/uL Lymphocytes # (1.0-4.8) k/uL APTT (22.0-30.0) sec Creatinine 1.46 H (0.66-1.25) mg/dL Glucose 544 H* (74-99) mg/dL POC Glucose (mg/dL) 532 H (75-99) mg/dL Plasma Lactic Acid Riley (0.7-2.0) mmol/L Total Bilirubin 2.7 H (0.2-1.3) mg/dL AST 214 H (17-59) U/L Alkaline Phosphatase 458 H (38-126) U/L Total Creatine Kinase 49 L (55-170) U/L Urine Glucose (UA) (Negative) 10/27/18 10/27/18 10/27/18 Range/Units 01:02 01:02 01:02 WBC 16.4 H (3.8-10.6) k/uL Neutrophils # 15.3 H (1.3-7.7) k/uL Lymphocytes # 0.6 L (1.0-4.8) k/uL APTT 20.1 L (22.0-30.0) sec Creatinine (0.66-1.25) mg/dL Glucose (74-99) mg/dL POC Glucose (mg/dL) (75-99) mg/dL Plasma Lactic Acid Riley 4.1 H* (0.7-2.0) mmol/L Total Bilirubin (0.2-1.3) mg/dL AST (17-59) U/L Alkaline Phosphatase (38-126) U/L Total Creatine Kinase (55-170) U/L Urine Glucose (UA) (Negative) 10/27/18 10/27/18 10/27/18 Range/Units 01:47 02:23 03:29 WBC (3.8-10.6) k/uL Neutrophils # (1.3-7.7) k/uL Lymphocytes # (1.0-4.8) k/uL APTT (22.0-30.0) sec Creatinine (0.66-1.25) mg/dL Glucose (74-99) mg/dL POC Glucose (mg/dL) 460 H 398 H (75-99) mg/dL Plasma Lactic Acid Riley (0.7-2.0) mmol/L Total Bilirubin (0.2-1.3) mg/dL AST (17-59) U/L Alkaline Phosphatase (38-126) U/L Total Creatine Kinase (55-170) U/L Urine Glucose (UA) 4+ H (Negative) 10/27/18 10/27/18 Range/Units 05:07 05:17 WBC (3.8-10.6) k/uL Neutrophils # (1.3-7.7) k/uL Lymphocytes # (1.0-4.8) k/uL APTT (22.0-30.0) sec Creatinine (0.66-1.25) mg/dL Glucose (74-99) mg/dL POC Glucose (mg/dL) 309 H (75-99) mg/dL Plasma Lactic Acid Riley 4.7 H* (0.7-2.0) mmol/L Total Bilirubin (0.2-1.3) mg/dL AST (17-59) U/L Alkaline Phosphatase (38-126) U/L Total Creatine Kinase (55-170) U/L Urine Glucose (UA) (Negative) Assessment and Plan Assessment: 78-year-old male with multiple comorbidities, admitted as an inpatient with anticipated length of stay more than 48 hours due to generalized weakness and hyperglycemia nonketotic, patient also had aspiration pneumonia due to aspiration of vomitus. Patient seems to be dehydrated with elevated lactic acidosis. otherwise seems to have stable renal function , but slightly elevated liver enzymes will check abd US. Plan: Sepsis secondary to aspiration pneumonia Aspiration pneumonia secondary to aspiration of vomitus Aspiration precautions Unasyn 3 gm 4 times a day IV fluid hydration Tylenol for fevers Chest x-ray showed right lower lobe infiltrates Hyperglycemia nonketotic with history of diabetes Levemir 10 units Insulin sliding scale Normal saline bolus 1 L IV fluid hydration Monitor blood sugar Lactic acidosis Secondary to dehydration and possibly underlying sepsis IV fluid hydration normal saline bolus Patient has history of diastolic CHF Oral thrush Nystatin oral susp Elevated liver enzymes, obstructive pattern Check abdominal ultrasound Chronic conditions Hypertension currently stable continue home meds Parkinson and tinea home meds Chronic venous insufficiency with chronic dermatosclerosis bilateral legs, a strapping and elevation of legs CK D stage III currently stable Diastolic CHF most recent echocardiogram showed left ventricle ejection fraction of 55% Advanced age and debility, patient utilizes a cane for ambulation, PT/OT evaluation DVT prophylaxis Heparin subcu 3 times a day Preformed a thorough record review from recent hospitalization most recent hospitalization for UTI Surrogate decision-maker: Patient CODE STATUS: Full code Discussed with: Patient, ER, RN Anticipated discharge: 48-[address]: Pending clinical course, patient prefers home with home care A total of 60 minutes was spent on the care of this complex patient more than 50 % of the time was spent in counseling and care coordination.
[2018-10-27] MEDS ORDERED: AMPICILLIN-SULBACTAM 3 GM in SODIUM CHLORIDE 0.9% 100 ML IVPB SCH (08:00)
[2018-10-27] MEDS ORDERED: ALBUTEROL NEBULIZED 2.5 MG/3 ML INHALATION PRN (08:00)
[2018-10-27 08:01] LABS: Glucose,Whole Blood >600 mg/dL (75-99)
--- NOTE | 2018-10-27 09:34 | US ---
EXAMINATION TYPE: US liver DATE OF EXAM: 10/27/2018 COMPARISON: Renal ultrasound 2018 CLINICAL HISTORY: Elevated liver enzymes obstructive pattern. abn labs, hx of bladder cancer. Previo us renal ultrasound showed GB abnormality EXAM MEASUREMENTS: Liver Length: 23.0 cm Gallbladder Wall: 0.3 cm CHD: 1.3 cm Right Kidney: 10.5 x 4.9 x 5.4 cm Limited exam due to patient body habitus Pancreas: Obscured by bowel gas Liver: Increased attenuation, decreased visualization of vessels suggestive of fatty infiltrate. Ap pears enlarged in size. Gallbladder: Appears enlarged in size - 15.9 cm. Posterior echogenic echoes seen within GB. Wall i s upper limits of normal in size Evidence for sonographic Baez's sign: neg CBD: Obscured by overlying bowel gas Right Kidney: wnl as visualized IMPRESSION: 1. Sludge within the gallbladder and dilated common bile duct. Correlate for acute cholecystitis.
[2018-10-27 09:36] LABS: Glucose,Whole Blood 416 mg/dL (75-99)
[2018-10-27 09:58] LABS: Glucose,Whole Blood 242 mg/dL (75-99)
[2018-10-27] MEDS: INSULIN ASPART 100 UNIT/ML 1 ML 10 ML VIAL SQ SCH ×4 (10:36→20:49)
[2018-10-27] MEDS: HEPARIN SODIUM,PORCINE 5,000 UNIT/ML 1 ML VIAL SQ SCH ×2 (10:36→16:10)
[2018-10-27] MEDS: AMIODARONE 200 MG TAB PO SCH (10:37)
[2018-10-27] MEDS: SODIUM BICARBONATE TAB 650 MG TAB PO SCH ×2 (10:37→20:49)
[2018-10-27] MEDS: TAMSULOSIN 0.4 MG CAP.ER.24H PO SCH (10:37)
[2018-10-27] MEDS: METOPROLOL TARTRATE 50 MG TAB PO SCH (12:04)
[2018-10-27] MEDS: CARBIDOPA-LEVODOPA 25-100 MG 1 EACH TAB PO SCH ×3 (12:05→21:52)
[2018-10-27] MEDS: NYSTATIN 100,000 UNIT/ML SUSP 500,000 UNIT/5 ML CUP PO SCH ×5 (12:05→21:53)
[2018-10-27 12:19] LABS: Glucose,Whole Blood 234 mg/dL (75-99)
[2018-10-27 16:58] LABS: Glucose,Whole Blood 180 mg/dL (75-99)
[2018-10-27] MEDS: AMPICILLIN-SULBACTAM 3 GM in SODIUM CHLORIDE 0.9% 100 ML IVPB SCH (17:34)
[2018-10-27 20:30] LABS: Glucose,Whole Blood 188 mg/dL (75-99)
[2018-10-28] MEDS: AMPICILLIN-SULBACTAM 3 GM in SODIUM CHLORIDE 0.9% 100 ML IVPB SCH ×3 (00:10→12:13)
[2018-10-28] MEDS: HEPARIN SODIUM,PORCINE 5,000 UNIT/ML 1 ML VIAL SQ SCH ×4 (00:11→23:58)
[2018-10-28 02:13] LABS: Glucose,Whole Blood 140 mg/dL (75-99)
[2018-10-28] MEDS: INSULIN ASPART 100 UNIT/ML 1 ML 10 ML VIAL SQ SCH ×5 (02:17→20:37)
[2018-10-28 04:53] LABS: Basophils % (A) 0 %; Eosinophils # (A) 0.4 k/uL (0-0.7); Eosinophils % (A) 4 %; HGB 12.2 gm/dL (13.0-17.5); Lymphocytes # (A) 1.9 k/uL (1.0-4.8); Lymphocytes % (A) 15 %; MCH 30.4 pg (25.0-35.0); MCHC 33.7 g/dL (31.0-37.0); MCV 90.2 fL (80.0-100.0); Mean Platelet Volume 10.7; Monocytes # (A) 0.5 k/uL (0-1.0); Monocytes % (A) 4 %; Neutrophils # (A) 9.4 k/uL (1.3-7.7); Neutrophils % (A) 75 %; Platelet Count 164 k/uL (150-450); WBC 12.5 k/uL (3.8-10.6)
[2018-10-28] MEDS: SODIUM CHLORIDE 0.9% 1,000 ML IV SCH ×3 (05:00→19:13)
[2018-10-28 05:12] LABS: Calcium 7.7 mg/dL (8.4-10.2)
[2018-10-28 05:17] LABS: Potassium 4.4 mmol/L (3.5-5.1)
[2018-10-28 05:48] LABS: Hemoglobin A1C 12.3 % (4.0-6.0)
[2018-10-28 07:13] LABS: Glucose,Whole Blood 135 mg/dL (75-99)
[2018-10-28] MEDS: TAMSULOSIN 0.4 MG CAP.ER.24H PO SCH (08:15)
[2018-10-28] MEDS: NYSTATIN 100,000 UNIT/ML SUSP 500,000 UNIT/5 ML CUP PO SCH ×4 (08:15→20:37)
[2018-10-28] MEDS: SODIUM BICARBONATE TAB 650 MG TAB PO SCH ×2 (08:15→20:37)
[2018-10-28] MEDS: AMIODARONE 200 MG TAB PO SCH (08:15)
[2018-10-28] MEDS: CARBIDOPA-LEVODOPA 25-100 MG 1 EACH TAB PO SCH ×3 (08:15→22:08)
[2018-10-28 12:03] LABS: Glucose,Whole Blood 248 mg/dL (75-99)
[2018-10-28 12:33] LABS: Albumin 3.1 g/dL (3.5-5.0); Total Bilirubin 1.4 mg/dL (0.2-1.3)
--- NOTE | 2018-10-28 12:47 | P.CONS ---
History of Present Illness - Reason for Consult Consult date: 10/28/18 Abnormal LFTs ultrasound Requesting physician: Payal Boo - Chief Complaint Weakness malaise - History of Present Illness 78-year-old gentleman with a past medical history of cholangitis in 2014 treated conservatively with antibiotics was deemed a high surgical risk at that time, bladder carcinoma status post resection in 2013 with subsequent bladder tumor removals as recently as few months ago, E. coli bacteremia July 2018, atrial flutter, morbid obesity, CHF, Parkinson's, diabetes, upper GI bleed, hypertension. Admitted with fever 103.1, generalized malaise elevated glucose weakness for a few days. Blood cultures positive Klebsiella pneumoniae. Chest x-ray probable new mild left lower lobe pneumonia no heart failure. Consultation requested for elevated liver enzymes and abnormal ultrasound. Patient has a history of abnormal liver enzymes that dates back to 2014. Over the past 3 years total bilirubin has fluctuated between 0.5 and 2.7. AST 80- 348. ALT 28-101. AP 75-458. Hepatitis screen 2014 negative. Admission total bilirubin 2.7. AST 214. ALT 50. AP 458. Glucose 544. BUN 19. Creatinine 1.4. INR 0.9. White count 16.4. Hemoglobin 13.4. Platelet 228. Repeat CMP today pending. Receiving IV antibiotics. Ultrasound abdomen sludge within the gallbladder and dilated CHD 1.3 cm. Correlate for acute cholecystitis. Presently denies abdominal pain. No further fevers. Review of Systems Constitutional: Admitted with fever chills no, sweats, weight gain, or loss. Mental status changes. Generalized malaise. HEENT: Negative for migraines, blurred vision or loss, earaches, drainage, tinnitus, oral mucosal lesions, dysphagia, or odynophagia. Cardiac: Negative for chest pain, arrhythmias, or palpitation. Respiratory: Negative for shortness of breath, hemoptysis, cough, or sputum production. Gastrointestinal: See HPI for pertinent findings. Genitourinary: Negative for hematuria, urgency, frequency, polyuria, dysuria, or penile discharge. Musculoskeletal: Negative for muscle aches, swelling, arthritis, and arthralgias. Neurologic: History of Parkinson's. Endocrine: Negative for thyroid problems. Skin: Negative for rash or itching. Psychiatric: Negative history for depression and anxiety Past Medical History Past Medical History: Atrial Flutter, Cancer, Heart Failure, COPD, Diabetes Mellitus, Hypertension, Thyroid Disorder Additional Past Medical History / Comment(s): HX A-FLUTTER/TACHYCARDIA- TX W/ SAL/CARDIOVERSION, HAS BLADDER CA WITH SURGERY AND BLADDER INSTILLATION OF MED FOR BLADDER CANCER, IDC WITH UTI-REMOVED, IDDM TYPE II, BILATERAL CATARACTS, ABD HERNIA. PARKINSONS, DIVERTICULITIS, EDEMA FEET/LEGS, DDD lower spine, acute renal failure d/t acute tubular necrosis d/t sepsis, possible CKD. Last Myocardial Infarction Date:: UNK History of Any Multi-Drug Resistant Organisms: None Reported Past Surgical History: Adenoidectomy, Bladder Surgery, Tonsillectomy Additional Past Surgical History / Comment(s): 2013 CARDIOVERSION, SAL. BLADDER TUMOR REMOVED,cystoscopy with bladder CA TREATMENTS Past Anesthesia/Blood Transfusion Reactions: Previous Problems w/ Anesthesia Additional Past Anesthesia/Blood Transfusion Reaction / Comm: HX CLAUSTROPHOBIA Smoking Status: Former smoker - Past Family History Father Family Medical History: Cancer Additional Family Medical History / Comment(s): Bone cancer. Mother Family Medical History: Coronary Artery Disease (CAD) Additional Family Medical History / Comment(s): Macular degeneration Sister(s) Family Medical History: Cancer Additional Family Medical History / Comment(s): breast CA Medications and Allergies Home Medications Medication Instructions Recorded Confirmed Type Insulin Lispro Protamin/Lispro 75 unit SQ BID PRN 02/26/14 10/27/18 History [humaLOG Mix 75-25 Kwikpen] Albuterol Inhaler [Ventolin Hfa 2 puff INHALATION RT-Q6H PRN 03/15/14 10/27/18 History Inhaler] Amiodarone HCl 200 mg PO QAM 04/21/14 10/27/18 History Metoprolol Tartrate 50 mg PO QAM 04/21/16 10/27/18 History Carbidopa-Levodopa 25-100 mg 2 tab PO TID 07/08/16 10/27/18 History [Sinemet 25-100 mg] Sodium Bicarbonate Tab 650 mg PO BID #30 tab 08/04/18 10/27/18 Rx Tamsulosin [Flomax] 0.4 mg PO PC-BRKFST #30 cap.er.24h 08/04/18 10/27/18 Rx Furosemide [Lasix] 40 mg PO BID 10/27/18 10/27/18 History Allergies Allergy/AdvReac Type Severity Reaction Status Date / Time aspirin Allergy Swelling Verified 10/27/18 07:39 NSAIDS (Non-Steroidal Allergy Swelling Verified 10/27/18 07:39 Anti-Inflamma Physical Exam Vitals: Vital Signs Temp Pulse Pulse Resp BP BP Pulse Ox 10/28/18 08:00 98.0 F 62 13 139/54 94 L 10/28/18 07:00 55 L 19 133/62 10/28/18 04:00 97.5 F L 51 L 14 133/62 95 10/28/18 00:00 98.1 F 59 L 12 120/74 98 10/27/18 20:00 98.1 F 58 L 16 132/66 98 10/27/18 18:00 63 119/55 96 10/27/18 17:00 54 L 119/55 97 10/27/18 16:00 97.9 F 55 L 20 119/55 98 10/27/18 15:00 55 L 101/49 98 10/27/18 14:00 52 L 101/49 96 10/27/18 13:00 25 H 101/49 97 10/27/18 12:55 63 13 10/27/18 11:00 67 20 109/50 96 Intake and Output 10/27/18 10/28/18 10/28/18 22:59 06:59 14:59 Intake Total 1000 1850 Output Total 125 225 Balance 875 1625 Intake: Intake, IV Titration 1000 1150 Amount Ampicillin-Sulbactam 3 gm 100 100 In Sodium Chloride 0.9% 100 ml @ 200 mls/hr IVPB Q6H [facility] Rx#:[id number] Sodium Chloride 0.9% 1, 900 1050 000 ml @ 150 mls/hr IV . Q6H40M [facility] Rx#:[id number] Oral 700 Output: Urine 125 225 Other: # Bowel Movements 1 Weight 108.862 kg 108.862 kg General appearance: The patient is alert, oriented, in no acute distress. Resting tremors. HET: Head is normocephalic and atraumatic. Pupils are equal and reactive. Oropharynx is clear without lesions. Neck: Supple without lymphadenopathy. Trachea midline. Heart: S1 S2. Regular rate and rhythm. Lungs: No crackles or wheezes are heard. Slight diminishment in bilateral bases otherwise clear. Abdomen: Soft, obese, nontender, nondistended with bowel sounds. No peritoneal signs. No palpable organomegaly or masses. Extremities: Normal skin color and turgor. No cyanosis, rash, ulceration, clubbing, or edema. Radial and pedal pulses are 2/4 bilaterally. Neurological: No focal deficits. Strength and sensation are grossly intact. Results CBC & Chem 7: 10/29/18 04:15 10/29/18 04:15 Labs: Abnormal Lab Results - Last 24 Hours (Table) 10/27/18 10/27/18 10/27/18 Range/Units 01:02 11:10 12:06 WBC (3.8-10.6) k/uL RBC (4.30-5.90) m/uL Hgb (13.0-17.5) gm/dL Hct (39.0-53.0) % Neutrophils # (1.3-7.7) k/uL Chloride (98-107) mmol/L Carbon Dioxide (22-30) mmol/L BUN (9-20) mg/dL Creatinine (0.66-1.25) mg/dL Glucose (74-99) mg/dL POC Glucose (mg/dL) 234 H (75-99) mg/dL Hemoglobin A1c 12.3 H (4.0-6.0) % Plasma Lactic Acid Riley 2.5 H* (0.7-2.0) mmol/L Calcium (8.4-10.2) mg/dL 10/27/18 10/27/18 10/28/18 Range/Units 16:47 20:18 02:02 WBC (3.8-10.6) k/uL RBC (4.30-5.90) m/uL Hgb (13.0-17.5) gm/dL Hct (39.0-53.0) % Neutrophils # (1.3-7.7) k/uL Chloride (98-107) mmol/L Carbon Dioxide (22-30) mmol/L BUN (9-20) mg/dL Creatinine (0.66-1.25) mg/dL Glucose (74-99) mg/dL POC Glucose (mg/dL) 180 H 188 H 140 H (75-99) mg/dL Hemoglobin A1c (4.0-6.0) % Plasma Lactic Acid Riley (0.7-2.0) mmol/L Calcium (8.4-10.2) mg/dL 10/28/18 10/28/18 10/28/18 Range/Units 04:44 04:44 07:00 WBC 12.5 H (3.8-10.6) k/uL RBC 4.00 L (4.30-5.90) m/uL Hgb 12.2 L (13.0-17.5) gm/dL Hct 36.0 L (39.0-53.0) % Neutrophils # 9.4 H (1.3-7.7) k/uL Chloride 113 H (98-107) mmol/L Carbon Dioxide 20 L (22-30) mmol/L BUN 25 H (9-20) mg/dL Creatinine 1.56 H (0.66-1.25) mg/dL Glucose 134 H (74-99) mg/dL POC Glucose (mg/dL) 135 H (75-99) mg/dL Hemoglobin A1c (4.0-6.0) % Plasma Lactic Acid Riley (0.7-2.0) mmol/L Calcium 7.7 L (8.4-10.2) mg/dL Microbiology - Last 24 Hours (Table) 10/27/18 01:02 Blood Culture Gram Stain - Preliminary Blood Blood Culture - Preliminary Klebsiella pneumoniae 10/27/18 01:02 Blood Culture - Final Blood 10/27/18 01:47 Urine Culture - Preliminary Urine,Clean Catch US - abdomen: report reviewed (Dr. Villanueva) Assessment and Plan Assessment: Impression: 1. Elevated liver enzymes sepsis fever klebsiella bacteremia with reports of abdominal pain prior to admission with a history of cholangitis in 2014 treated conservatively with antibiotics patient deemed at that time a high surgical risk. Etiology of elevated liver enzymes multifactorial could be related to underlying sepsis possible cholangitis possible hepatic congestion. Liver ultrasound reported gallbladder sludge no evidence of biliary tree dilation. 2. Sepsis secondary to pneumonia. 3. Bladder carcinoma with resection 2013 with subsequent bladder tumor removals on a yearly basis. 4. History of E. coli bacteremia. 5. Parkinson's. 6. History of CHF. Plan: 1. Recommend infectious disease and surgical consult. Daily monitoring of CMP. Continue with IV antibiotics. Will follow closely with you. Thank you for this kind referral and the opportunity to participate in the care of your patient. This consultation was discussed with Dr. Villanueva. The impression and plan of care have been directed as dictated.
--- NOTE | 2018-10-28 14:59 | P.PN ---
Subjective Progress Note Date: 10/28/18 Patient is 78-year-old male with a PMH of hypertension, diabetes mellitus, and Parkinson's disease presented to the ED via EMS for weakness, inability to ambulate, hyperglycemia, concern for aspiration. The patient lives at home with daughter and who noted that the patient often refuses medications and had been difficult to take care of by the both of them. The chest x-ray in the ED of the right lower lobe infiltrate with suspicion for aspiration pneumonia, the patient was hyperglycemic with lactic acidosis. He was admitted to the medicine service for severe sepsis secondary to aspiration pneumonia with leukocytosis and hyperglycemia. Patient's LFTs were also deranged and right upper quadrant ultrasound was obtained which was concerning for possible cholecystitis. Patient's lactic acidosis resolved and his hyperglycemia improved. The patient was seen and examined with and daughter at the bedside. Patient notes that he is feeling better and denied any active complaints. He denied fever, chills, chest pain, shortness of breath, nausea, vomiting, dizziness, or dysuria. Objective - Vital Signs Vital signs: Vital Signs Temp 98.0 F 10/28/18 08:00 Pulse 62 10/28/18 11:00 Resp 19 10/28/18 11:00 BP 139/54 10/28/18 08:00 Pulse Ox 93 L 10/28/18 11:00 Intake & Output 10/27/18 10/28/18 10/28/18 18:59 06:59 18:59 Intake Total 1150 1850 1800 Output Total 125 225 250 Balance 1025 1625 1550 Weight 108.862 kg 108.862 kg Intake: Intake, IV Titration 1150 1150 1800 Amount Ampicillin-Sulbactam 3 gm 100 100 In Sodium Chloride 0.9% 100 ml @ 200 mls/hr IVPB Q6H [facility] Rx#:[id number] Sodium Chloride 0.9% 1, 1050 1050 1800 000 ml @ 150 mls/hr IV . Q6H40M [facility] Rx#:[id number] Oral 700 Output: Urine 125 225 250 Other: # Voids 1 # Bowel Movements 1 1 - Exam General: Non-toxic, in no acute distress, appears stated age, obese HEENT: NC/AT, anicteric sclerae, moist conjunctiva, no lid-lag, PERRLA Cardiovascular: S1/S2 wnl, no murmurs, rubs, or gallops Lungs: Mild ronchi bilaterally, no rales appreciated, normal respiratory effort , no accessory muscle use Abdominal: Soft, nontender, non-distended, no guarding, rebound, or rigidity Skin: Warm, dry Extremities: Chronic venous stasis changes jeremy LEs with dry flaking skin, no contractures Psychiatric: Alert and oriented to person, place and time, appropriate affect, Intact judgment Neuro: CN II-XII grossly intact, Strength 5/5 in all 4 extremities, Speech intact, Sensation to light touch grossly intact throughout - Labs CBC & Chem 7: 10/28/18 04:44 10/28/18 04:44 Labs: Abnormal Lab Results - Last 24 Hours (Table) 10/27/18 10/27/18 10/27/18 Range/Units 01:02 16:47 20:18 WBC (3.8-10.6) k/uL RBC (4.30-5.90) m/uL Hgb (13.0-17.5) gm/dL Hct (39.0-53.0) % Neutrophils # (1.3-7.7) k/uL Chloride (98-107) mmol/L Carbon Dioxide (22-30) mmol/L BUN (9-20) mg/dL Creatinine (0.66-1.25) mg/dL Glucose (74-99) mg/dL POC Glucose (mg/dL) 180 H 188 H (75-99) mg/dL Hemoglobin A1c 12.3 H (4.0-6.0) % Calcium (8.4-10.2) mg/dL 10/28/18 10/28/18 10/28/18 Range/Units 02:02 04:44 04:44 WBC 12.5 H (3.8-10.6) k/uL RBC 4.00 L (4.30-5.90) m/uL Hgb 12.2 L (13.0-17.5) gm/dL Hct 36.0 L (39.0-53.0) % Neutrophils # 9.4 H (1.3-7.7) k/uL Chloride 113 H (98-107) mmol/L Carbon Dioxide 20 L (22-30) mmol/L BUN 25 H (9-20) mg/dL Creatinine 1.56 H (0.66-1.25) mg/dL Glucose 134 H (74-99) mg/dL POC Glucose (mg/dL) 140 H (75-99) mg/dL Hemoglobin A1c (4.0-6.0) % Calcium 7.7 L (8.4-10.2) mg/dL 10/28/18 10/28/18 Range/Units 07:00 11:52 WBC (3.8-10.6) k/uL RBC (4.30-5.90) m/uL Hgb (13.0-17.5) gm/dL Hct (39.0-53.0) % Neutrophils # (1.3-7.7) k/uL Chloride (98-107) mmol/L Carbon Dioxide (22-30) mmol/L BUN (9-20) mg/dL Creatinine (0.66-1.25) mg/dL Glucose (74-99) mg/dL POC Glucose (mg/dL) 135 H 248 H (75-99) mg/dL Hemoglobin A1c (4.0-6.0) % Calcium (8.4-10.2) mg/dL Microbiology - Last 24 Hours (Table) 10/27/18 01:02 Blood Culture Gram Stain - Preliminary Blood Blood Culture - Preliminary Klebsiella pneumoniae 10/27/18 01:02 Blood Culture - Final Blood 10/27/18 01:47 Urine Culture - Preliminary Urine,Clean Catch Assessment and Plan Plan: Aspiration pneumonia -C/w Unasyn 3 gm q6h -NS 75 cc/hr -Aspiration precautions Klebsiella bactaremia -Will start Zosyn -ID consulted Deranged LFTs, RUQ US showing possible cholecystitis (hx of bladder ca w/ resection in 2013) - GI recs appreciated. Will consult ID and General Surgery Lactic acidosis -Resolved Hyperglycemia -Improved -C/w Levemir 10 U qhs and sliding scale with FS HTN -C/w home meds Parkinson's disease -Resume home meds CKD -Stable, monitor BMP DVT//GI prophylaxis - Heparin - No indication for GI prophylaxis
[2018-10-28] MEDS: PIPERACILLIN-TAZOBACTAM 3.375 GM in SODIUM CHLORIDE 0.9% 100 ML IVPB SCH ×2 (16:16→23:56)
--- NOTE | 2018-10-28 16:17 | P.GSCN ---
History of Present Illness Consult date: 10/28/18 Reason for Consult: gallbladder Requesting physician: Payal Boo History of present illness: CHIEF COMPLAINT: abnormal US HISTORY OF PRESENT ILLNESS: 78-year-old male who is admitted to the hospital for pneumonia. Neurosurgery was consulted due to abnormal ultrasound. Patient evaluated the bedside. Patient denies any pain or discomfort. He denies nausea or vomiting. He is eating 100% of his meals. PAST MEDICAL HISTORY: See list. PAST SURGICAL HISTORY: See list. MEDICATIONS: See list. ALLERGIES: See list. SOCIAL HISTORY: No illicit drug use. REVIEW OF ORGAN SYSTEMS: CARDIOVASCULAR: Denies chest pain or pressure. GASTROINTESTINAL: No reports of recent blood in stools. NEURO: Denies seizure activity. Reports history of stroke. HEMATOLOGIC: No easy bruising or bleeding LYMPHATIC: The patient denies any lumps and bumps around the neck. GENITOURINARY: Denies any blood in urine or increased urinary frequency. SKIN: Denies rash or cellulitis. PHYSICAL EXAM: VITAL SIGNS: Currently stable. GENERAL: Well-developed in no acute distress. HEENT: No sclera icterus. Extraocular movements grossly intact. Moist buccal mucosa. Head is atraumatic, normocephalic. Hears conversational speech. No nasal drainage. NECK: Supple without lymphadenopathy. CHEST: Non-labored respirations and equal bilateral excursions. CARDIOVASCULAR: Regular rate with regular rhythm. Palpable 2+ radial pulses. ABDOMEN: Soft. Nondistended. No peritonitis. No abdominal tenderness. MUSCULOSKELETAL: No clubbing, cyanosis or edema. NEUROLOGIC: No focal or lateralizing signs. Cranial nerves II through XII grossly intact. PSYCH: Alert and oriented x 3. SKIN: Well perfused. Good skin turgor. LABS: Reviewed IMAGING 1. US: Sludge within the gallbladder and dilated common bile duct. Gallbladder wall is 0.3 cm., Bile duct 1.3 cm. Correlate for acute cholecystitis. ASSESSMENT: 1. Possible cholecystitis, US reveals sludge within gallbladder and dilated common bile duct, patient asymptomatic 2. History of cholangitis in 2015, treated conservatively PLAN: No immediate surgical intervention. Recommend cholecystectomy when stable. Possible outpatient. Nurse practitioner note has been reviewed by physician. Signing provider agrees with the documented findings, assessment, and plan of care. Past Medical History Past Medical History: Atrial Flutter, Cancer, Heart Failure, COPD, Diabetes Mellitus, Hypertension, Thyroid Disorder Additional Past Medical History / Comment(s): HX A-FLUTTER/TACHYCARDIA- TX W/ SAL/CARDIOVERSION, HAS BLADDER CA WITH SURGERY AND BLADDER INSTILLATION OF MED FOR BLADDER CANCER, IDC WITH UTI-REMOVED, IDDM TYPE II, BILATERAL CATARACTS, ABD HERNIA. PARKINSONS, DIVERTICULITIS, EDEMA FEET/LEGS, DDD lower spine, acute renal failure d/t acute tubular necrosis d/t sepsis, possible CKD. Last Myocardial Infarction Date:: UNK History of Any Multi-Drug Resistant Organisms: None Reported Past Surgical History: Adenoidectomy, Bladder Surgery, Tonsillectomy Additional Past Surgical History / Comment(s): 2013 CARDIOVERSION, SAL. BLADDER TUMOR REMOVED,cystoscopy with bladder CA TREATMENTS Past Anesthesia/Blood Transfusion Reactions: Previous Problems w/ Anesthesia Additional Past Anesthesia/Blood Transfusion Reaction / Comm: HX CLAUSTROPHOBIA Smoking Status: Former smoker - Past Family History Father Family Medical History: Cancer Additional Family Medical History / Comment(s): Bone cancer. Mother Family Medical History: Coronary Artery Disease (CAD) Additional Family Medical History / Comment(s): Macular degeneration Sister(s) Family Medical History: Cancer Additional Family Medical History / Comment(s): breast CA Medications and Allergies Home Medications Medication Instructions Recorded Confirmed Type Insulin Lispro Protamin/Lispro 75 unit SQ BID PRN 02/26/14 10/27/18 History [humaLOG Mix 75-25 Kwikpen] Albuterol Inhaler [Ventolin Hfa 2 puff INHALATION RT-Q6H PRN 03/15/14 10/27/18 History Inhaler] Amiodarone HCl 200 mg PO QAM 04/21/14 10/27/18 History Metoprolol Tartrate 50 mg PO QAM 04/21/16 10/27/18 History Carbidopa-Levodopa 25-100 mg 2 tab PO TID 07/08/16 10/27/18 History [Sinemet 25-100 mg] Sodium Bicarbonate Tab 650 mg PO BID #30 tab 08/04/18 10/27/18 Rx Tamsulosin [Flomax] 0.4 mg PO PC-BRKFST #30 cap.er.24h 08/04/18 10/27/18 Rx Furosemide [Lasix] 40 mg PO BID 10/27/18 10/27/18 History Allergies Allergy/AdvReac Type Severity Reaction Status Date / Time aspirin Allergy Swelling Verified 10/27/18 07:39 NSAIDS (Non-Steroidal Allergy Swelling Verified 10/27/18 07:39 Anti-Inflamma Surgical - Exam Vital Signs Temp Pulse Resp BP Pulse Ox 103.1 F H 60 16 157/86 98 10/27/18 00:35 10/27/18 00:35 10/27/18 00:35 10/27/18 00:35 10/27/18 00:35 Results - Labs 10/28/18 04:44 10/28/18 04:44 Abnormal Lab Results - Last 24 Hours (Table) 10/27/18 10/27/18 10/27/18 Range/Units 01:02 16:47 20:18 WBC (3.8-10.6) k/uL RBC (4.30-5.90) m/uL Hgb (13.0-17.5) gm/dL Hct (39.0-53.0) % Neutrophils # (1.3-7.7) k/uL Chloride (98-107) mmol/L Carbon Dioxide (22-30) mmol/L BUN (9-20) mg/dL Creatinine (0.66-1.25) mg/dL Glucose (74-99) mg/dL POC Glucose (mg/dL) 180 H 188 H (75-99) mg/dL Hemoglobin A1c 12.3 H (4.0-6.0) % Calcium (8.4-10.2) mg/dL Total Bilirubin (0.2-1.3) mg/dL AST (17-59) U/L Alkaline Phosphatase (38-126) U/L Total Protein (6.3-8.2) g/dL Albumin (3.5-5.0) g/dL 10/28/18 10/28/18 10/28/18 Range/Units 02:02 04:44 04:44 WBC 12.5 H (3.8-10.6) k/uL RBC 4.00 L (4.30-5.90) m/uL Hgb 12.2 L (13.0-17.5) gm/dL Hct 36.0 L (39.0-53.0) % Neutrophils # 9.4 H (1.3-7.7) k/uL Chloride 113 H (98-107) mmol/L Carbon Dioxide 20 L (22-30) mmol/L BUN 25 H (9-20) mg/dL Creatinine 1.56 H (0.66-1.25) mg/dL Glucose 134 H (74-99) mg/dL POC Glucose (mg/dL) 140 H (75-99) mg/dL Hemoglobin A1c (4.0-6.0) % Calcium 7.7 L (8.4-10.2) mg/dL Total Bilirubin 1.4 H (0.2-1.3) mg/dL AST 170 H (17-59) U/L Alkaline Phosphatase 342 H (38-126) U/L Total Protein 6.0 L (6.3-8.2) g/dL Albumin 3.1 L (3.5-5.0) g/dL 10/28/18 10/28/18 Range/Units 07:00 11:52 WBC (3.8-10.6) k/uL RBC (4.30-5.90) m/uL Hgb (13.0-17.5) gm/dL Hct (39.0-53.0) % Neutrophils # (1.3-7.7) k/uL Chloride (98-107) mmol/L Carbon Dioxide (22-30) mmol/L BUN (9-20) mg/dL Creatinine (0.66-1.25) mg/dL Glucose (74-99) mg/dL POC Glucose (mg/dL) 135 H 248 H (75-99) mg/dL Hemoglobin A1c (4.0-6.0) % Calcium (8.4-10.2) mg/dL Total Bilirubin (0.2-1.3) mg/dL AST (17-59) U/L Alkaline Phosphatase (38-126) U/L Total Protein (6.3-8.2) g/dL Albumin (3.5-5.0) g/dL Microbiology - Last 24 Hours (Table) 10/27/18 01:47 Urine Culture - Preliminary Urine,Clean Catch Group D Enterococcus 10/27/18 01:02 Blood Culture Gram Stain - Preliminary Blood Blood Culture - Preliminary Klebsiella pneumoniae 10/27/18 01:02 Blood Culture - Final Blood Diabetes panel 10/27/18 10/28/18 Range/Units 01:02 04:44 Sodium 140 (137-145) mmol/L Potassium 4.4 (3.5-5.1) mmol/L Chloride 113 H (98-107) mmol/L Carbon Dioxide 20 L (22-30) mmol/L BUN 25 H (9-20) mg/dL Creatinine 1.56 H (0.66-1.25) mg/dL Glucose 134 H (74-99) mg/dL Hemoglobin A1c 12.3 H (4.0-6.0) % Calcium 7.7 L (8.4-10.2) mg/dL AST 170 H (17-59) U/L ALT 66 (21-72) U/L Alkaline Phosphatase 342 H (38-126) U/L Total Protein 6.0 L (6.3-8.2) g/dL Albumin 3.1 L (3.5-5.0) g/dL Calcium panel 10/28/18 Range/Units 04:44 Calcium 7.7 L (8.4-10.2) mg/dL Albumin 3.1 L (3.5-5.0) g/dL Pituitary panel 10/28/18 Range/Units 04:44 Sodium 140 (137-145) mmol/L Potassium 4.4 (3.5-5.1) mmol/L Chloride 113 H (98-107) mmol/L Carbon Dioxide 20 L (22-30) mmol/L BUN 25 H (9-20) mg/dL Creatinine 1.56 H (0.66-1.25) mg/dL Glucose 134 H (74-99) mg/dL Calcium 7.7 L (8.4-10.2) mg/dL Adrenal panel 10/28/18 Range/Units 04:44 Sodium 140 (137-145) mmol/L Potassium 4.4 (3.5-5.1) mmol/L Chloride 113 H (98-107) mmol/L Carbon Dioxide 20 L (22-30) mmol/L BUN 25 H (9-20) mg/dL Creatinine 1.56 H (0.66-1.25) mg/dL Glucose 134 H (74-99) mg/dL Calcium 7.7 L (8.4-10.2) mg/dL Total Bilirubin 1.4 H (0.2-1.3) mg/dL AST 170 H (17-59) U/L ALT 66 (21-72) U/L Alkaline Phosphatase 342 H (38-126) U/L Total Protein 6.0 L (6.3-8.2) g/dL Albumin 3.1 L (3.5-5.0) g/dL
[2018-10-28] MEDS: hydrALAZINE HCL 50 MG TAB PO SCH ×2 (17:18→22:08)
[2018-10-28 17:31] LABS: Glucose,Whole Blood 189 mg/dL (75-99)
[2018-10-28 20:38] LABS: Glucose,Whole Blood 192 mg/dL (75-99)
[2018-10-28] MEDS: INSULIN DETEMIR 100 UNIT/ML 10 ML VIAL SQ SCH (20:38)
--- NOTE | 2018-10-28 23:50 | P.CONS ---
History of Present Illness - Reason for Consult Consult date: 10/28/18 - Chief Complaint weakness - History of Present Illness 78-year-old male noted infectious disease service presents to Hospital from his home setting with his called EMS. The patient apparently had over a days time had a significant decline in his status. He become weaker and was unable to ambulate any further and become very confused. Constantly EMS transported the hospital where there was evidence of hyperglycemia with a blood sugar greater than 600 without ketoacidosis. However the patient appeared to have evidence of sepsis was transferred into the intensive care unit with concerns for an aspiration pneumonia since the was concerned that he had vomited and possibly aspirated. The patient also sitting upright in the bedside chair, seems to be comfortable. His mentation has markedly improved. He relates he does not actually remember the transport to the hospital and that he was very ill. He is aware that this happened to him in the past. He is without any new acute pain. He is denying significant discomfort in his chest or significant shortness of breath. He does have difficulty with medical compliance with his diabetes and overall medical care.Given concerns to pneumonia admission and sepsis influenza testing was performed that is negative. Review of Systems is reported the patient is now considerably improved since the hours since he was admitted. HEENT:Denies headache or acute visual change. Denies sinus or mouth discomforts. Denies neck stiffness or pain. Denies significant oral cavity pain. Denies difficulty on swallowing. Lungs: patient relates the shortness of breath is improve Cardiovascular: Denies significant shortness of breath, chest pain, chest wall pain, orthopnea, dyspnea on exertion, syncope Gastrointestinal:Denies nausea, vomiting, diarrhea, constipation, hematemesis, melena, hematochezia. No no significant change of bowel habit noticed. Musculoskeletal: denies significant myalgias or arthralgias. No new joint swelling. Denies new back pain. Skin: Denies new rash or lesions. No new ulcers or wounds are related.. Neuro: patient states was having profound weakness before admission and was so weak he could not ambulate Psychiatric:Denies anxiety or depression. Endocrine: patient has chronic fatigue weight has been stable Past Medical History Past Medical History: Atrial Flutter, Cancer, Heart Failure, COPD, Diabetes Mellitus, Hypertension, Thyroid Disorder Additional Past Medical History / Comment(s): HX A-FLUTTER/TACHYCARDIA- TX W/ SAL/CARDIOVERSION, HAS BLADDER CA WITH SURGERY AND BLADDER INSTILLATION OF MED FOR BLADDER CANCER, IDC WITH UTI-REMOVED, IDDM TYPE II, BILATERAL CATARACTS, ABD HERNIA. PARKINSONS, DIVERTICULITIS, EDEMA FEET/LEGS, DDD lower spine, acute renal failure d/t acute tubular necrosis d/t sepsis, possible CKD. Last Myocardial Infarction Date:: UNK History of Any Multi-Drug Resistant Organisms: None Reported Past Surgical History: Adenoidectomy, Bladder Surgery, Tonsillectomy Additional Past Surgical History / Comment(s): 2013 CARDIOVERSION, SAL. BLADDER TUMOR REMOVED,cystoscopy with bladder CA TREATMENTS Past Anesthesia/Blood Transfusion Reactions: Previous Problems w/ Anesthesia Additional Past Anesthesia/Blood Transfusion Reaction / Comm: HX CLAUSTROPHOBIA Additional Psychological History / Comment(s): and lives in the family home with his . Retired. No service. Pet dog in the home no recent travel Smoking Status: Former smoker - Past Family History Father Family Medical History: Cancer Additional Family Medical History / Comment(s): Bone cancer. Mother Family Medical History: Coronary Artery Disease (CAD) Additional Family Medical History / Comment(s): Macular degeneration Sister(s) Family Medical History: Cancer Additional Family Medical History / Comment(s): breast CA Medications and Allergies Home Medications and Allergies Comment(s): Current Medications Albuterol Sulfate (Ventolin Nebulized) 2.5 mg INHALATION RT-Q6H PRN PRN Reason: Dyspnea Amiodarone HCl (Cordarone) 200 mg PO QAM [facility] Last Admin: 10/28/18 08:15 Dose: 200 mg Carbidopa/Levodopa (Sinemet 25-100) 2 each PO TID [facility] Last Admin: 10/28/18 22:08 Dose: 2 each Heparin Sodium (Porcine) (Heparin) 5,000 unit SQ Q8HR [facility] Last Admin: 10/28/18 16:16 Dose: 5,000 unit Hydralazine HCl (Apresoline) 100 mg PO TID [facility] Last Admin: 10/28/18 22:08 Dose: 100 mg Sodium Chloride (Saline 0.9%) 1,000 mls @ 75 mls/hr IV .[id number] [facility] Last Admin: 10/28/18 19:13 Dose: 75 mls/hr Piperacillin Sod/Tazobactam (Sod 3.375 gm/ Sodium Chloride) 100 mls @ 25 mls/ hr IVPB Q8HR [facility] Last Admin: 10/28/18 16:16 Dose: 25 mls/hr Insulin Aspart (Novolog) 0 unit SQ [id number] [facility]; Protocol Last Admin: 10/28/18 20:37 Dose: 3 unit Insulin Detemir (Levemir) 10 unit SQ HS [facility] Last Admin: 10/28/18 20:38 Dose: 10 unit Miscellaneous Information (Pneumonia Protocol Utilized) 1 each PO ONCE PRN PRN Reason: Per Protocol Naloxone HCl (Narcan) 0.2 mg IV Q2M PRN PRN Reason: Opioid Reversal Nystatin (Mycostatin Oral Susp) 500,000 unit PO QID [facility] Last Admin: 10/28/18 20:37 Dose: 500,000 unit Sodium Bicarbonate (Sodium Bicarbonate Tab) 650 mg PO BID [facility] Last Admin: 10/28/18 20:37 Dose: 650 mg Tamsulosin HCl (Flomax) 0.4 mg PO PC-BRKFST [facility] Last Admin: 10/28/18 08:15 Dose: 0.4 mg Home Medications Medication Instructions Recorded Confirmed Type Insulin Lispro Protamin/Lispro 75 unit SQ BID PRN 02/26/14 10/27/18 History [humaLOG Mix 75-25 Kwikpen] Albuterol Inhaler [Ventolin Hfa 2 puff INHALATION RT-Q6H PRN 03/15/14 10/27/18 History Inhaler] Amiodarone HCl 200 mg PO QAM 04/21/14 10/27/18 History Metoprolol Tartrate 50 mg PO QAM 04/21/16 10/27/18 History Carbidopa-Levodopa 25-100 mg 2 tab PO TID 07/08/16 10/27/18 History [Sinemet 25-100 mg] Sodium Bicarbonate Tab 650 mg PO BID #30 tab 08/04/18 10/27/18 Rx Tamsulosin [Flomax] 0.4 mg PO PC-BRKFST #30 cap.er.24h 08/04/18 10/27/18 Rx Furosemide [Lasix] 40 mg PO BID 10/27/18 10/27/18 History Allergies Allergy/AdvReac Type Severity Reaction Status Date / Time aspirin Allergy Swelling Verified 10/27/18 07:39 NSAIDS (Non-Steroidal Allergy Swelling Verified 10/27/18 07:39 Anti-Inflamma Physical Exam Vitals: Vital Signs Temp Pulse Pulse Resp BP BP Pulse Ox 10/28/18 22:00 51 L 12 151/68 95 10/28/18 20:00 97.9 F 61 12 149/68 98 10/28/18 18:00 57 L 18 147/59 98 10/28/18 16:00 53 L 12 185/73 98 10/28/18 14:00 54 L 16 97 10/28/18 12:00 53 L 10 L 137/68 97 10/28/18 11:00 62 19 93 L 10/28/18 10:00 53 L 12 95 10/28/18 09:00 56 L 13 94 L 10/28/18 08:00 98.0 F 62 19 139/54 94 L 10/28/18 07:00 55 L 19 133/62 10/28/18 04:00 97.5 F L 51 L 14 133/62 95 10/28/18 00:00 98.1 F 59 L 12 120/74 98 Intake and Output 10/28/18 10/28/18 10/29/18 14:59 22:59 06:59 Intake Total 1800 780 Output Total 250 1 Balance 1550 779 Intake: Intake, IV Titration 1800 780 Amount Sodium Chloride 0.9% 1, 1800 780 000 ml @ 75 mls/hr IV . [id number] [facility] Rx#:[id number] Output: Urine 250 Stool 1 Other: Voiding Method Bedside Commode # Voids 1 1 Weight 108.862 kg 108.862 kg 78-year-old male who has obesity and is comfortable sitting upright in the chair HEENT: Anicteric conjunctiva are pink and moist nasal mucosa grossly intact without significant lesions, there is no thrush. Neck: The neck is supple without significant lymphadenopathy or thyromegaly. Lungs: Symmetrical air entry is noted few basilar crackles especially at the right base is noted no significant dullness or egophony. Heart: Irregular with an audible S1 and S2 soft S4 no distinct murmur click or rub PMI was nondisplaced fever thrill Abdomen: obese,Positive bowel sounds soft and nontender without palpable masses or organomegaly. There was no guarding or rebound. Extremities: The upper extremities have excellent pulses they are symmetric, no significant petechiae or telangiectasia. No splinter hemorrhages were noted. The lower extremities reveal evidence of the chronic bilateral lower extremity edema with dryness no significant open ulcers at this time Neuro: Awake alert oriented to personand place. There are no acute new gross focal sensory motor deficits. Results CBC & Chem 7: 10/28/18 04:44 10/28/18 04:44 Labs: Abnormal Lab Results - Last 24 Hours (Table) 10/27/18 10/28/18 10/28/18 Range/Units 01:02 02:02 04:44 WBC 12.5 H (3.8-10.6) k/uL RBC 4.00 L (4.30-5.90) m/uL Hgb 12.2 L (13.0-17.5) gm/dL Hct 36.0 L (39.0-53.0) % Neutrophils # 9.4 H (1.3-7.7) k/uL Chloride (98-107) mmol/L Carbon Dioxide (22-30) mmol/L BUN (9-20) mg/dL Creatinine (0.66-1.25) mg/dL Glucose (74-99) mg/dL POC Glucose (mg/dL) 140 H (75-99) mg/dL Hemoglobin A1c 12.3 H (4.0-6.0) % Calcium (8.4-10.2) mg/dL Total Bilirubin (0.2-1.3) mg/dL AST (17-59) U/L Alkaline Phosphatase (38-126) U/L Total Protein (6.3-8.2) g/dL Albumin (3.5-5.0) g/dL 10/28/18 10/28/18 10/28/18 Range/Units 04:44 07:00 11:52 WBC (3.8-10.6) k/uL RBC (4.30-5.90) m/uL Hgb (13.0-17.5) gm/dL Hct (39.0-53.0) % Neutrophils # (1.3-7.7) k/uL Chloride 113 H (98-107) mmol/L Carbon Dioxide 20 L (22-30) mmol/L BUN 25 H (9-20) mg/dL Creatinine 1.56 H (0.66-1.25) mg/dL Glucose 134 H (74-99) mg/dL POC Glucose (mg/dL) 135 H 248 H (75-99) mg/dL Hemoglobin A1c (4.0-6.0) % Calcium 7.7 L (8.4-10.2) mg/dL Total Bilirubin 1.4 H (0.2-1.3) mg/dL AST 170 H (17-59) U/L Alkaline Phosphatase 342 H (38-126) U/L Total Protein 6.0 L (6.3-8.2) g/dL Albumin 3.1 L (3.5-5.0) g/dL 10/28/18 10/28/18 Range/Units 17:20 20:27 WBC (3.8-10.6) k/uL RBC (4.30-5.90) m/uL Hgb (13.0-17.5) gm/dL Hct (39.0-53.0) % Neutrophils # (1.3-7.7) k/uL Chloride (98-107) mmol/L Carbon Dioxide (22-30) mmol/L BUN (9-20) mg/dL Creatinine (0.66-1.25) mg/dL Glucose (74-99) mg/dL POC Glucose (mg/dL) 189 H 192 H (75-99) mg/dL Hemoglobin A1c (4.0-6.0) % Calcium (8.4-10.2) mg/dL Total Bilirubin (0.2-1.3) mg/dL AST (17-59) U/L Alkaline Phosphatase (38-126) U/L Total Protein (6.3-8.2) g/dL Albumin (3.5-5.0) g/dL Microbiology - Last 24 Hours (Table) 10/27/18 01:47 Urine Culture - Preliminary Urine,Clean Catch Group D Enterococcus 10/27/18 01:02 Blood Culture Gram Stain - Preliminary Blood Blood Culture - Preliminary Klebsiella pneumoniae 10/27/18 01:02 Blood Culture - Final Blood Laboratory Results WBC 12.5 k/uL (3.8-10.6) H 10/28/18 04:44 RBC 4.00 m/uL (4.30-5.90) L 10/28/18 04:44 Hgb 12.2 gm/dL (13.0-17.5) L 10/28/18 04:44 Hct 36.0 % (39.0-53.0) L 10/28/18 04:44 MCV 90.2 fL (80.0-100.0) 10/28/18 04:44 MCH 30.4 pg (25.0-35.0) 10/28/18 04:44 MCHC 33.7 g/dL (31.0-37.0) 10/28/18 04:44 RDW 14.0 % (11.5-15.5) 10/28/18 04:44 Plt Count 164 k/uL (150-450) 10/28/18 04:44 Neutrophils % 75 % 10/28/18 04:44 Lymphocytes % 15 % 10/28/18 04:44 Monocytes % 4 % 10/28/18 04:44 Eosinophils % 4 % 10/28/18 04:44 Basophils % 0 % 10/28/18 04:44 Neutrophils # 9.4 k/uL (1.3-7.7) H 10/28/18 04:44 Lymphocytes # 1.9 k/uL (1.0-4.8) 10/28/18 04:44 Monocytes # 0.5 k/uL (0-1.0) 10/28/18 04:44 Eosinophils # 0.4 k/uL (0-0.7) 10/28/18 04:44 Basophils # 0.0 k/uL (0-0.2) 10/28/18 04:44 PT 9.9 sec (9.0-12.0) 10/27/18 01:02 INR 0.9 (<1.2) 10/27/18 01:02 APTT 20.1 sec (22.0-30.0) L 10/27/18 01:02 Sodium 140 mmol/L (137-145) 10/28/18 04:44 Potassium 4.4 mmol/L (3.5-5.1) 10/28/18 04:44 Chloride 113 mmol/L (98-107) H 10/28/18 04:44 Carbon Dioxide 20 mmol/L (22-30) L 10/28/18 04:44 Anion Gap 7 mmol/L 10/28/18 04:44 BUN 25 mg/dL (9-20) H 10/28/18 04:44 Creatinine 1.56 mg/dL (0.66-1.25) H 10/28/18 04:44 Est GFR (CKD-EPI)AfAm 49 (>60 ml/min/1.73 sqM) 10/28/18 04:44 Est GFR (CKD-EPI)NonAf 42 (>60 ml/min/1.73 sqM) 10/28/18 04:44 Glucose 134 mg/dL (74-99) H 10/28/18 04:44 POC Glucose (mg/dL) 192 mg/dL (75-99) H 10/28/18 20:27 POC Glu Baggage Security Checker ID Sam Lyn 10/28/18 20:[address] Glu mg/dL 306 10/27/18 01:02 Hemoglobin A1c 12.3 % (4.0-6.0) H 10/27/18 01:02 Lactic Ac Sepsis Rflx Y 10/27/18 11:48 Plasma Lactic Acid Riley 2.0 mmol/L (0.7-2.0) 10/27/18 14:58 Calcium 7.7 mg/dL (8.4-10.2) L 10/28/18 04:44 Total Bilirubin 1.4 mg/dL (0.2-1.3) H 10/28/18 04:44 AST 170 U/L (17-59) H 10/28/18 04:44 ALT 66 U/L (21-72) 10/28/18 04:44 Alkaline Phosphatase 342 U/L (38-126) H 10/28/18 04:44 Total Creatine Kinase 49 U/L (55-170) L 10/27/18 01:02 CK-MB (CK-2) 0.9 ng/mL (0.0-2.4) 10/27/18 01:02 CK-MB (CK-2) Rel Index 1.8 10/27/18 01:02 Troponin I <0.012 ng/mL (0.000-0.034) 10/27/18 01:02 Total Protein 6.0 g/dL (6.3-8.2) L 10/28/18 04:44 Albumin 3.1 g/dL (3.5-5.0) L 10/28/18 04:44 Urine Color Yellow 10/27/18 01:47 Urine Appearance Clear (Clear) 10/27/18 01:47 Urine pH 5.5 (5.0-8.0) 10/27/18 01:47 Ur Specific [place] 1.020 (1.001-1.035) 10/27/18 01:47 Urine Protein Negative (Negative) 10/27/18 01:47 Urine Glucose (UA) 4+ (Negative) H 10/27/18 01:47 Urine Ketones Negative (Negative) 10/27/18 01:47 Urine Blood Negative (Negative) 10/27/18 01:47 Urine Nitrite Negative (Negative) 10/27/18 01:47 Urine Bilirubin Negative (Negative) 10/27/18 01:47 Urine Urobilinogen 2.0 mg/dL (<2.0) 10/27/18 01:47 Ur Leukocyte Esterase Negative (Negative) 10/27/18 01:47 Acetone, Qual Negative (Negative) 10/27/18 01:02 Influenza Type A RNA Not Detected (Not Detectd) 10/27/18 01:02 Influenza Type B (PCR) Not Detected (Not Detectd) 10/27/18 01:02 Microbiology 10/27/18 01:47 Urine,Clean Catch Urine Culture - Preliminary Group D Enterococcus 10/27/18 01:02 Blood Blood Culture Gram Stain - Preliminary 10/27/18 01:02 Blood Blood Culture - Preliminary Klebsiella pneumoniae 10/27/18 01:02 Blood Blood Culture - Final Assessment and Plan (1) Gram negative sepsis Narrative/Plan: 78-year-old male well-known to the infectious disease service presents to the emergency center from home via EMS with altered mental status profound weakness such that point he was not able to ambulate and was confused. The patient relates he does not recall being transported to hospital because he was so ill. The patient is feeling somewhat better and is more comfortable. The patient' s was concerned since there was an episode of emesis that there could be aspiration. There is evidence of pneumonia by the chest x-ray that is new from the last chest x-ray. Is going for antibiotic therapy after treatment of the gram-negative bacteremia piperacillin tazobactam is being utilized until further culture data is available. Leukocytosis is apparently on the basis of the current gram-negative sepsis and pneumonia. The profound hyperglycemia is improving with hydration and current insulin therapy. There has been evidence of E. coli infections in the past. With his uncontrolled diabetes he is at risk for recurrent infections. Current Visit: Yes Status: Acute Code(s): A41.50 - GRAM-NEGATIVE SEPSIS, UNSPECIFIED SNOMED Code(s): 768567922 (2) Pneumonia Current Visit: Yes Status: Acute Code(s): J18.9 - PNEUMONIA, UNSPECIFIED ORGANISM SNOMED Code(s): 361626672 (3) Leukocytosis Current Visit: Yes Status: Acute Code(s): D72.829 - ELEVATED WHITE BLOOD CELL COUNT, UNSPECIFIED SNOMED Code(s): 945413939 (4) Acute on chronic renal failure Current Visit: Yes Status: Acute Code(s): N17.9 - ACUTE KIDNEY FAILURE, UNSPECIFIED; N18.9 - CHRONIC KIDNEY DISEASE, UNSPECIFIED SNOMED Code(s): 255943164
[2018-10-29] MEDS: INSULIN ASPART 100 UNIT/ML 1 ML 10 ML VIAL SQ SCH ×5 (02:10→22:02)
[2018-10-29 02:17] LABS: Glucose,Whole Blood 144 mg/dL (75-99)
[2018-10-29 04:39] LABS: Basophils % (A) 0 %; Eosinophils # (A) 0.3 k/uL (0-0.7); Eosinophils % (A) 4 %; HGB 11.4 gm/dL (13.0-17.5); Lymphocytes # (A) 1.8 k/uL (1.0-4.8); Lymphocytes % (A) 26 %; MCH 29.2 pg (25.0-35.0); MCHC 32.7 g/dL (31.0-37.0); MCV 89.4 fL (80.0-100.0); Mean Platelet Volume 9.2; Monocytes # (A) 0.4 k/uL (0-1.0); Monocytes % (A) 5 %; Neutrophils # (A) 4.3 k/uL (1.3-7.7); Neutrophils % (A) 62 %; Platelet Count 185 k/uL (150-450); RBC 3.91 m/uL (4.30-5.90); RDW 13.9 % (11.5-15.5); WBC 6.8 k/uL (3.8-10.6)
[2018-10-29 04:58] LABS: Albumin 2.6 g/dL (3.5-5.0); Calcium 7.6 mg/dL (8.4-10.2); Potassium 3.8 mmol/L (3.5-5.1); Total Bilirubin 0.8 mg/dL (0.2-1.3); Total Protein 5.2 g/dL (6.3-8.2)
[2018-10-29 06:56] LABS: Glucose,Whole Blood 122 mg/dL (75-99)
--- NOTE | 2018-10-29 09:09 | P.PN ---
Subjective Progress Note Date: 10/29/18 Principal diagnosis: gram negative sepsis elevated liver enzymes Feels well. LFTs improved. Receiving IV antibiotics for gram-negative sepsis klebsiella pneumoniae bacteremia. Denies abdominal pain. Tolerating diet. Afebrile. Objective - Vital Signs Vital signs: Vital Signs Temp 97.7 F 10/29/18 08:00 Pulse 58 L 10/29/18 08:00 Resp 14 10/29/18 08:00 BP 160/69 10/29/18 08:00 Pulse Ox 95 10/29/18 08:00 Intake & Output 10/28/18 10/29/18 10/29/18 18:59 06:59 18:59 Intake Total 2100 720 Output Total 250 426 Balance 1850 294 Weight 108.862 kg 123.4 kg Intake: Intake, IV Titration 2100 720 Amount Sodium Chloride 0.9% 1, 2099 720 000 ml @ 75 mls/hr IV . [id number] Rx#:[id number] Output: Urine 250 425 Stool 1 Other: Voiding Method Urinal # Voids 1 1 - Exam General appearance: The patient is alert, oriented, in no acute distress. Resting tremors. HET: Head is normocephalic and atraumatic. Pupils are equal and reactive. Oropharynx is clear without lesions. Neck: Supple without lymphadenopathy. Trachea midline. Heart: S1 S2. Regular rate and rhythm. Lungs: Slight diminishment in bilateral bases otherwise clear. Abdomen: Soft, nontender, nondistended with bowel sounds. No peritoneal signs. No palpable organomegaly or masses. Extremities: Normal skin color and turgor. No cyanosis, rash, ulceration, clubbing, or edema. Radial and pedal pulses are 2/4 bilaterally. Neurological: No focal deficits. Strength and sensation are grossly intact. - Labs CBC & Chem 7: 10/29/18 04:15 10/29/18 04:15 Labs: Abnormal Lab Results - Last 24 Hours (Table) 10/28/18 10/28/18 10/28/18 Range/Units 04:44 11:52 17:20 RBC (4.30-5.90) m/uL Hgb (13.0-17.5) gm/dL Hct (39.0-53.0) % Chloride 113 H (98-107) mmol/L Carbon Dioxide 20 L (22-30) mmol/L BUN 25 H (9-20) mg/dL Creatinine 1.56 H (0.66-1.25) mg/dL Glucose 134 H (74-99) mg/dL POC Glucose (mg/dL) 248 H 189 H (75-99) mg/dL Calcium 7.7 L (8.4-10.2) mg/dL Total Bilirubin 1.4 H (0.2-1.3) mg/dL AST 170 H (17-59) U/L Alkaline Phosphatase 342 H (38-126) U/L Total Protein 6.0 L (6.3-8.2) g/dL Albumin 3.1 L (3.5-5.0) g/dL 10/28/18 10/29/18 10/29/18 Range/Units 20:27 02:05 04:15 RBC 3.91 L (4.30-5.90) m/uL Hgb 11.4 L (13.0-17.5) gm/dL Hct 35.0 L (39.0-53.0) % Chloride (98-107) mmol/L Carbon Dioxide (22-30) mmol/L BUN (9-20) mg/dL Creatinine (0.66-1.25) mg/dL Glucose (74-99) mg/dL POC Glucose (mg/dL) 192 H 144 H (75-99) mg/dL Calcium (8.4-10.2) mg/dL Total Bilirubin (0.2-1.3) mg/dL AST (17-59) U/L Alkaline Phosphatase (38-126) U/L Total Protein (6.3-8.2) g/dL Albumin (3.5-5.0) g/dL 10/29/18 10/29/18 Range/Units 04:15 06:45 RBC (4.30-5.90) m/uL Hgb (13.0-17.5) gm/dL Hct (39.0-53.0) % Chloride 113 H (98-107) mmol/L Carbon Dioxide 21 L (22-30) mmol/L BUN (9-20) mg/dL Creatinine (0.66-1.25) mg/dL Glucose 122 H (74-99) mg/dL POC Glucose (mg/dL) 122 H (75-99) mg/dL Calcium 7.6 L (8.4-10.2) mg/dL Total Bilirubin (0.2-1.3) mg/dL AST 60 H (17-59) U/L Alkaline Phosphatase 270 H (38-126) U/L Total Protein 5.2 L (6.3-8.2) g/dL Albumin 2.6 L (3.5-5.0) g/dL Microbiology - Last 24 Hours (Table) 10/27/18 01:02 Blood Culture Gram Stain - Final Blood Blood Culture - Final Klebsiella pneumoniae 10/28/18 08:20 Gram Stain - Preliminary Sputum 10/27/18 01:47 Urine Culture - Preliminary Urine,Clean Catch Group D Enterococcus Assessment and Plan Assessment: Impression: 1. Elevated liver enzymes sepsis fever klebsiella bacteremia with reports of abdominal pain prior to admission with a history of cholangitis in 2014 treated conservatively with antibiotics patient deemed at that time a high surgical risk. Etiology of elevated liver enzymes multifactorial could be related to underlying sepsis possible cholangitis possible hepatic congestion. Liver ultrasound reported gallbladder sludge no evidence of biliary tree dilation. 2. Sepsis secondary to pneumonia. 3. Bladder carcinoma with resection 2013 with subsequent bladder tumor removals on a yearly basis. 4. History of E. coli bacteremia. 5. Parkinson's. 6. History of CHF. Plan: 1. Overall LFTs are improving. Continue to monitor on a daily basis. We'll continue to follow with you. Continue with IV antibiotics infectious disease following. Assessment and plan a care discussed with Dr. Villanueva
[2018-10-29] MEDS: HEPARIN SODIUM,PORCINE 5,000 UNIT/ML 1 ML VIAL SQ SCH ×3 (09:10→22:03)
[2018-10-29] MEDS: NYSTATIN 100,000 UNIT/ML SUSP 500,000 UNIT/5 ML CUP PO SCH ×4 (09:10→22:02)
[2018-10-29] MEDS: PIPERACILLIN-TAZOBACTAM 3.375 GM in SODIUM CHLORIDE 0.9% 100 ML IVPB SCH ×3 (09:12→22:03)
[2018-10-29] MEDS: TAMSULOSIN 0.4 MG CAP.ER.24H PO SCH (09:14)
[2018-10-29] MEDS: AMIODARONE 200 MG TAB PO SCH (09:14)
[2018-10-29] MEDS: hydrALAZINE HCL 50 MG TAB PO SCH ×3 (09:14→22:02)
[2018-10-29] MEDS: CARBIDOPA-LEVODOPA 25-100 MG 1 EACH TAB PO SCH ×3 (09:14→22:01)
[2018-10-29] MEDS: SODIUM BICARBONATE TAB 650 MG TAB PO SCH ×2 (09:14→22:01)
[2018-10-29] MEDS: SODIUM CHLORIDE 0.9% 1,000 ML IV SCH (09:15)
--- NOTE | 2018-10-29 09:40 | P.PN ---
Subjective Patient is 78-year-old male with a PMH of hypertension, diabetes mellitus, and Parkinson's disease presented to the ED via EMS for weakness, inability to ambulate, hyperglycemia, concern for aspiration. The patient lives at home with daughter and who noted that the patient often refuses medications and had been difficult to take care of by the both of them. The chest x-ray in the ED of the right lower lobe infiltrate with suspicion for aspiration pneumonia, the patient was hyperglycemic with lactic acidosis. He was admitted to the medicine service for severe sepsis secondary to aspiration pneumonia with leukocytosis and hyperglycemia. Patient's LFTs were also deranged and right upper quadrant ultrasound was obtained which was concerning for possible cholecystitis. Patient's lactic acidosis resolved and his hyperglycemia improved. The patient was seen and examined at the bedside. He feels better today. Denied chest pain, SOB, nausea, vomiting, fever, or chills. He walked in place with physical therapy. Objective - Vital Signs Vital signs: Vital Signs Temp 97.7 F 10/29/18 08:00 Pulse 58 L 10/29/18 08:00 Resp 14 10/29/18 08:00 BP 160/69 10/29/18 08:00 Pulse Ox 95 10/29/18 08:00 Intake & Output 10/28/18 10/29/18 10/29/18 18:59 06:59 18:59 Intake Total 2100 720 300 Output Total 250 426 Balance 1850 294 300 Weight 108.862 kg 123.4 kg Intake: Intake, IV Titration 2100 720 300 Amount Sodium Chloride 0.9% 2099 720 300 000 ml @ 75 mls/hr IV . [id number] [facility] Rx#:[id number] Output: Urine 250 425 Stool 1 Other: Voiding Method Urinal # Voids 1 1 - Exam General: Non-toxic, in no acute distress, appears stated age, obese HEENT: NC/AT, anicteric sclerae, moist conjunctiva, no lid-lag, PERRLA Cardiovascular: S1/S2 wnl, no murmurs, rubs, or gallops Lungs: Mild ronchi bilaterally, no rales appreciated, normal respiratory effort , no accessory muscle use Abdominal: Soft, nontender, non-distended, no guarding, rebound, or rigidity Skin: Warm, dry Extremities: Chronic venous stasis changes jeremy LEs with dry flaking skin, no contractures Psychiatric: Alert and oriented to person, place and time, appropriate affect, Intact judgment Neuro: CN II-XII grossly intact, Strength 5/5 in all 4 extremities, Speech intact, Sensation to light touch grossly intact throughout - Labs CBC & Chem 7: 10/29/18 04:15 10/29/18 04:15 Labs: Abnormal Lab Results - Last 24 Hours (Table) 10/28/18 10/28/18 10/28/18 Range/Units 04:44 11:52 17:20 RBC (4.30-5.90) m/uL Hgb (13.0-17.5) gm/dL Hct (39.0-53.0) % Chloride 113 H (98-107) mmol/L Carbon Dioxide 20 L (22-30) mmol/L BUN 25 H (9-20) mg/dL Creatinine 1.56 H (0.66-1.25) mg/dL Glucose 134 H (74-99) mg/dL POC Glucose (mg/dL) 248 H 189 H (75-99) mg/dL Calcium 7.7 L (8.4-10.2) mg/dL Total Bilirubin 1.4 H (0.2-1.3) mg/dL AST 170 H (17-59) U/L Alkaline Phosphatase 342 H (38-126) U/L Total Protein 6.0 L (6.3-8.2) g/dL Albumin 3.1 L (3.5-5.0) g/dL 10/28/18 10/29/18 10/29/18 Range/Units 20:27 02:05 04:15 RBC 3.91 L (4.30-5.90) m/uL Hgb 11.4 L (13.0-17.5) gm/dL Hct 35.0 L (39.0-53.0) % Chloride (98-107) mmol/L Carbon Dioxide (22-30) mmol/L BUN (9-20) mg/dL Creatinine (0.66-1.25) mg/dL Glucose (74-99) mg/dL POC Glucose (mg/dL) 192 H 144 H (75-99) mg/dL Calcium (8.4-10.2) mg/dL Total Bilirubin (0.2-1.3) mg/dL AST (17-59) U/L Alkaline Phosphatase (38-126) U/L Total Protein (6.3-8.2) g/dL Albumin (3.5-5.0) g/dL 10/29/18 10/29/18 Range/Units 04:15 06:45 RBC (4.30-5.90) m/uL Hgb (13.0-17.5) gm/dL Hct (39.0-53.0) % Chloride 113 H (98-107) mmol/L Carbon Dioxide 21 L (22-30) mmol/L BUN (9-20) mg/dL Creatinine (0.66-1.25) mg/dL Glucose 122 H (74-99) mg/dL POC Glucose (mg/dL) 122 H (75-99) mg/dL Calcium 7.6 L (8.4-10.2) mg/dL Total Bilirubin (0.2-1.3) mg/dL AST 60 H (17-59) U/L Alkaline Phosphatase 270 H (38-126) U/L Total Protein 5.2 L (6.3-8.2) g/dL Albumin 2.6 L (3.5-5.0) g/dL Microbiology - Last 24 Hours (Table) 10/27/18 01:02 Blood Culture Gram Stain - Final Blood Blood Culture - Final Klebsiella pneumoniae 10/28/18 08:20 Gram Stain - Preliminary Sputum 10/27/18 01:47 Urine Culture - Preliminary Urine,Clean Catch Group D Enterococcus Assessment and Plan Plan: Aspiration pneumonia -C/w Zosyn -Will DC IV fluids -Aspiration precautions Klebsiella bactaremia -Will continue with Zosyn for now pending further infectious disease recommendations Deranged LFTs, RUQ US showing possible cholecystitis (hx of bladder ca w/ resection in 2013) -GI and surgery recommendations appreciated -Currently is symptomatic -LFTs improved Lactic acidosis -Resolved Hyperglycemia -Improved -C/w Levemir 10 U qhs and sliding scale with FS -Patient will need his home insulin regimen to be readjusted since he was not taking them appropriately HTN -C/w home meds Parkinson's disease -Resume home meds CKD -Stable, monitor BMP DVT//GI prophylaxis - Heparin - No indication for GI prophylaxis
--- NOTE | 2018-10-29 10:24 | P.PN ---
Subjective Progress Note Date: 10/29/18 CHIEF COMPLAINT: abnormal US HISTORY OF PRESENT ILLNESS: Patient examined this morning at the bedside. Denies abdominal pain. Denies nausea or vomiting. Denies diarrhea or constipation. Consuming 100% of meals. PHYSICAL EXAM: VITAL SIGNS: Currently stable. GENERAL: Well-developed in no acute distress. HEENT: No sclera icterus. Extraocular movements grossly intact. Moist buccal mucosa. Head is atraumatic, normocephalic. Hears conversational speech. No nasal drainage. NECK: Supple without lymphadenopathy. CHEST: Non-labored respirations and equal bilateral excursions. CARDIOVASCULAR: Regular rate with regular rhythm. Palpable 2+ radial pulses. ABDOMEN: Soft. Nondistended. No peritonitis. No abdominal tenderness. MUSCULOSKELETAL: No clubbing, cyanosis or edema. NEUROLOGIC: No focal or lateralizing signs. Cranial nerves II through XII grossly intact. PSYCH: Alert and oriented x 3. SKIN: Well perfused. Good skin turgor. LABS: Reviewed IMAGING 1. US: Sludge within the gallbladder and dilated common bile duct. Gallbladder wall is 0.3 cm., Bile duct 1.3 cm. Correlate for acute cholecystitis. ASSESSMENT: 1. Possible cholecystitis, US reveals sludge within gallbladder and dilated common bile duct, patient asymptomatic 2. History of cholangitis in 2015, treated conservatively PLAN: No immediate surgical intervention. Recommend cholecystectomy when stable. Possible outpatient. This was discussed who patient who states he does not want any surgery performed on his gallbladder this admission or in the future. We will sign off. Please re-consult if needed. Nurse practitioner note has been reviewed by physician. Signing provider agrees with the documented findings, assessment, and plan of care. Objective - Vital Signs Vital signs: Vital Signs Temp 97.7 F 10/29/18 08:00 Pulse 58 L 10/29/18 08:00 Resp 14 10/29/18 08:00 BP 160/69 10/29/18 08:00 Pulse Ox 95 10/29/18 08:00 Intake & Output 10/28/18 10/29/18 10/29/18 18:59 06:59 18:59 Intake Total 2100 720 300 Output Total 250 426 Balance 1850 294 300 Weight 108.862 kg 123.4 kg 123.4 kg Intake: Intake, IV Titration 2099 720 300 Amount Sodium Chloride 0.9% 2099 300 000 ml @ 75 mls/hr IV . [id number] [facility] Rx#:[id number] Output: Urine 250 425 Stool 1 Other: Voiding Method Urinal Urinal # Voids 1 1 - Labs CBC & Chem 7: 10/29/18 04:15 10/29/18 04:15 Labs: Abnormal Lab Results - Last 24 Hours (Table) 10/28/18 10/28/18 10/28/18 Range/Units 04:44 11:52 17:20 RBC (4.30-5.90) m/uL Hgb (13.0-17.5) gm/dL Hct (39.0-53.0) % Chloride 113 H (98-107) mmol/L Carbon Dioxide 20 L (22-30) mmol/L BUN 25 H (9-20) mg/dL Creatinine 1.56 H (0.66-1.25) mg/dL Glucose 134 H (74-99) mg/dL POC Glucose (mg/dL) 248 H 189 H (75-99) mg/dL Calcium 7.7 L (8.4-10.2) mg/dL Total Bilirubin 1.4 H (0.2-1.3) mg/dL AST 170 H (17-59) U/L Alkaline Phosphatase 342 H (38-126) U/L Total Protein 6.0 L (6.3-8.2) g/dL Albumin 3.1 L (3.5-5.0) g/dL 10/28/18 10/29/18 10/29/18 Range/Units 20:27 02:05 04:15 RBC 3.91 L (4.30-5.90) m/uL Hgb 11.4 L (13.0-17.5) gm/dL Hct 35.0 L (39.0-53.0) % Chloride (98-107) mmol/L Carbon Dioxide (22-30) mmol/L BUN (9-20) mg/dL Creatinine (0.66-1.25) mg/dL Glucose (74-99) mg/dL POC Glucose (mg/dL) 192 H 144 H (75-99) mg/dL Calcium (8.4-10.2) mg/dL Total Bilirubin (0.2-1.3) mg/dL AST (17-59) U/L Alkaline Phosphatase (38-126) U/L Total Protein (6.3-8.2) g/dL Albumin (3.5-5.0) g/dL 10/29/18 10/29/18 Range/Units 04:15 06:45 RBC (4.30-5.90) m/uL Hgb (13.0-17.5) gm/dL Hct (39.0-53.0) % Chloride 113 H (98-107) mmol/L Carbon Dioxide 21 L (22-30) mmol/L BUN (9-20) mg/dL Creatinine (0.66-1.25) mg/dL Glucose 122 H (74-99) mg/dL POC Glucose (mg/dL) 122 H (75-99) mg/dL Calcium 7.6 L (8.4-10.2) mg/dL Total Bilirubin (0.2-1.3) mg/dL AST 60 H (17-59) U/L Alkaline Phosphatase 270 H (38-126) U/L Total Protein 5.2 L (6.3-8.2) g/dL Albumin 2.6 L (3.5-5.0) g/dL Microbiology - Last 24 Hours (Table) 10/27/18 01:02 Blood Culture Gram Stain - Final Blood Blood Culture - Final Klebsiella pneumoniae 10/28/18 08:20 Gram Stain - Preliminary Sputum 10/27/18 01:47 Urine Culture - Preliminary Urine,Clean Catch Group D Enterococcus
[2018-10-29 11:51] LABS: Glucose,Whole Blood 208 mg/dL (75-99)
[2018-10-29 17:20] LABS: Glucose,Whole Blood 225 mg/dL (75-99)
[2018-10-29 21:27] LABS: Glucose,Whole Blood 191 mg/dL (75-99)
[2018-10-29] MEDS: INSULIN DETEMIR 100 UNIT/ML 10 ML VIAL SQ SCH (22:02)
[2018-10-30] MEDS: INSULIN ASPART 100 UNIT/ML 1 ML 10 ML VIAL SQ SCH ×5 (03:25→21:05)
[2018-10-30 03:43] LABS: Glucose,Whole Blood 163 mg/dL (75-99)
[2018-10-30] MEDS: PIPERACILLIN-TAZOBACTAM 3.375 GM in SODIUM CHLORIDE 0.9% 100 ML IVPB SCH ×2 (09:16→17:22)
[2018-10-30] MEDS: TAMSULOSIN 0.4 MG CAP.ER.24H PO SCH (09:17)
[2018-10-30] MEDS: HEPARIN SODIUM,PORCINE 5,000 UNIT/ML 1 ML VIAL SQ SCH ×2 (09:17→17:20)
[2018-10-30] MEDS: NYSTATIN 100,000 UNIT/ML SUSP 500,000 UNIT/5 ML CUP PO SCH ×4 (09:18→21:07)
[2018-10-30] MEDS: AMIODARONE 200 MG TAB PO SCH (09:18)
[2018-10-30] MEDS: CARBIDOPA-LEVODOPA 25-100 MG 1 EACH TAB PO SCH ×3 (09:18→21:07)
[2018-10-30] MEDS: SODIUM BICARBONATE TAB 650 MG TAB PO SCH ×2 (09:18→21:06)
[2018-10-30] MEDS: hydrALAZINE HCL 50 MG TAB PO SCH ×3 (09:18→21:06)
[2018-10-30 09:32] LABS: Basophils % (A) 0 %; Eosinophils # (A) 0.1 k/uL (0-0.7); Eosinophils % (A) 3 %; HCT 37.6 % (39.0-53.0); HGB 11.9 gm/dL (13.0-17.5); Lymphocytes # (A) 1.4 k/uL (1.0-4.8); Lymphocytes % (A) 31 %; MCH 29.1 pg (25.0-35.0); MCHC 31.7 g/dL (31.0-37.0); MCV 91.8 fL (80.0-100.0); Monocytes # (A) 0.3 k/uL (0-1.0); Monocytes % (A) 6 %; Neutrophils # (A) 2.7 k/uL (1.3-7.7); Neutrophils % (A) 58 %; Platelet Count 197 k/uL (150-450); WBC 4.7 k/uL (3.8-10.6)
[2018-10-30 09:46] LABS: Calcium 7.9 mg/dL (8.4-10.2); Potassium 3.5 mmol/L (3.5-5.1)
[2018-10-30 11:38] LABS: Glucose,Whole Blood 210 mg/dL (75-99)
[2018-10-30 11:39] LABS: Glucose,Whole Blood 117 mg/dL (75-99)
--- NOTE | 2018-10-30 14:39 | P.PN ---
Subjective Progress Note Date: 10/30/18 Patient is 78-year-old male with a PMH of hypertension, diabetes mellitus, and Parkinson's disease presented to the ED via EMS for weakness, inability to ambulate, hyperglycemia, concern for aspiration. The patient lives at home with daughter and who noted that the patient often refuses medications and had been difficult to take care of by the both of them. The chest x-ray in the ED of the right lower lobe infiltrate with suspicion for aspiration pneumonia, the patient was hyperglycemic with lactic acidosis. He was admitted to the medicine service for severe sepsis secondary to aspiration pneumonia with leukocytosis and hyperglycemia. Patient's LFTs were also deranged and right upper quadrant ultrasound was obtained which was concerning for possible cholecystitis. General surgery was consulted and recommended no surgical intervention as LFTs improved. Patient's lactic acidosis resolved and his hyperglycemia improved. Blood cultures resulted positive for Klebsiella and the patient was switched to Zosyn. The patient was subsequently transferred to the Med/Surg unit. The patient was seen and examined at the bedside. He was in good spirits today and denied any active complaints. He is eager to be up and walking. Denied chest pain or SOB. Also denied fever, chills, cough, nausea, or vomiting. Objective - Vital Signs Vital signs: Vital Signs Temp 98 F 10/30/18 12:49 Pulse 54 L 10/30/18 12:49 Resp 18 10/30/18 12:49 BP 186/74 10/30/18 12:49 Pulse Ox 99 10/30/18 12:49 Intake & Output 10/29/18 10/30/18 10/30/18 18:59 06:59 18:59 Intake Total 300 Output Total 302 1 Balance -2 -1 Weight 123.4 kg Intake: Intake, IV Titration 300 Amount Sodium Chloride 0.9% 1, 300 000 ml @ 75 mls/hr IV . [id number] [facility] Rx#:[id number] Output: Urine 300 Stool 2 1 Other: Voiding Method Bedside Commode Bedside Commode Urinal Urinal - Exam General: Non-toxic, in no acute distress, appears stated age, obese HEENT: NC/AT, anicteric sclerae, moist conjunctiva, no lid-lag, PERRLA Cardiovascular: S1/S2 wnl, no murmurs, rubs, or gallops Lungs: Good air entry jeremy, clear to auscultation, no rales/ronchi appreciated, normal respiratory effort, no accessory muscle use Abdominal: Soft, nontender, non-distended, no guarding, rebound, or rigidity Skin: Warm, dry Extremities: Chronic venous stasis changes jeremy LEs with dry flaking skin, no contractures Psychiatric: Alert and oriented to person, place and time, appropriate affect, Intact judgment Neuro: CN II-XII grossly intact, Strength 4/5 in all 4 extremities, Speech intact, Sensation to light touch grossly intact throughout - Labs CBC & Chem 7: 10/30/18 09:17 10/30/18 09:17 Labs: Abnormal Lab Results - Last 24 Hours (Table) 10/29/18 10/29/18 10/30/18 Range/Units 17:18 21:22 03:07 RBC (4.30-5.90) m/uL Hgb (13.0-17.5) gm/dL Hct (39.0-53.0) % Chloride (98-107) mmol/L Glucose (74-99) mg/dL POC Glucose (mg/dL) 225 H 191 H 163 H (75-99) mg/dL Calcium (8.4-10.2) mg/dL 10/30/18 10/30/18 10/30/18 Range/Units 07:32 09:17 09:17 RBC 4.10 L (4.30-5.90) m/uL Hgb 11.9 L (13.0-17.5) gm/dL Hct 37.6 L (39.0-53.0) % Chloride 109 H (98-107) mmol/L Glucose 261 H (74-99) mg/dL POC Glucose (mg/dL) 117 H (75-99) mg/dL Calcium 7.9 L (8.4-10.2) mg/dL 10/30/18 Range/Units 11:36 RBC (4.30-5.90) m/uL Hgb (13.0-17.5) gm/dL Hct (39.0-53.0) % Chloride (98-107) mmol/L Glucose (74-99) mg/dL POC Glucose (mg/dL) 210 H (75-99) mg/dL Calcium (8.4-10.2) mg/dL Microbiology - Last 24 Hours (Table) 10/28/18 08:20 Gram Stain - Final Sputum Sputum Culture - Final Summer albicans 10/28/18 20:58 Blood Culture - Preliminary Blood No Growth after 24 hours 10/27/18 01:47 Urine Culture - Final Urine,Clean Catch Enterococcus faecalis Assessment and Plan Plan: Aspiration pneumonia -C/w Zosyn 3.375 gm q8h (Day 3) -Aspiration precautions -Will obtain repeat CXR in am Klebsiella bactaremia -Will continue with Zosyn for now pending further infectious disease recommendations Deranged LFTs, RUQ US showing possible cholecystitis (hx of bladder ca w/ resection in 2013) -- improved -GI and surgery recommendations appreciated -Currently is symptomatic -LFTs improved Hyperglycemia -Improved -C/w Levemir 10 U qhs and sliding scale with FS -Patient will need his home insulin regimen to be readjusted since he was not taking them appropriately HTN -Lopressor held due to borderline HR. Currently on Hydralazine 100 mg TID. Will restart Lasix 40 mg BID (home med) Parkinson's disease -C/w home meds Sinemet CKD -Stable, monitor BMP Lactic acidosis -Resolved DVT//GI prophylaxis - Heparin - No indication for GI prophylaxis Disposition: The patient wishes to go home though may be agreeable to rehab if needed. F/u PT recommendations. Discussed with: Patient Anticipated discharge date: 11/01/[address]: Home A total of 35 minutes was spent on the care of this complex patient more than 50 % of the time was spent in counseling and care coordination.
[2018-10-30 16:57] LABS: Glucose,Whole Blood 198 mg/dL (75-99)
[2018-10-30] MEDS: FUROSEMIDE 40 MG TAB PO SCH (17:20)
[2018-10-30] MEDS ORDERED: INSULIN DETEMIR 100 UNIT/ML 10 ML VIAL SQ SCH (21:00)
[2018-10-30 21:02] LABS: Glucose,Whole Blood 185 mg/dL (75-99)
[2018-10-30] MEDS: INSULIN DETEMIR 100 UNIT/ML 10 ML VIAL SQ SCH (21:05)
[2018-10-31 00:50] LABS: Glucose,Whole Blood 178 mg/dL (75-99)
[2018-10-31] MEDS: PIPERACILLIN-TAZOBACTAM 3.375 GM in SODIUM CHLORIDE 0.9% 100 ML IVPB SCH ×4 (00:54→23:33)
[2018-10-31] MEDS: INSULIN ASPART 100 UNIT/ML 1 ML 10 ML VIAL SQ SCH ×5 (00:54→20:16)
[2018-10-31] MEDS: HEPARIN SODIUM,PORCINE 5,000 UNIT/ML 1 ML VIAL SQ SCH ×4 (00:54→23:34)
[2018-10-31 07:21] LABS: Glucose,Whole Blood 159 mg/dL (75-99)
[2018-10-31] MEDS: TAMSULOSIN 0.4 MG CAP.ER.24H PO SCH (08:03)
[2018-10-31 08:04] LABS: Basophils % (A) 1 %; Eosinophils # (A) 0.2 k/uL (0-0.7); Eosinophils % (A) 3 %; HCT 37.9 % (39.0-53.0); HGB 12.8 gm/dL (13.0-17.5); Lymphocytes % (A) 38 %; MCH 30.5 pg (25.0-35.0); MCHC 33.9 g/dL (31.0-37.0); MCV 90.1 fL (80.0-100.0); Mean Platelet Volume 8.8; Monocytes # (A) 0.4 k/uL (0-1.0); Monocytes % (A) 8 %; Neutrophils # (A) 2.5 k/uL (1.3-7.7); Neutrophils % (A) 48 %; Platelet Count 186 k/uL (150-450); RBC 4.21 m/uL (4.30-5.90); RDW 13.9 % (11.5-15.5); WBC 5.2 k/uL (3.8-10.6)
[2018-10-31] MEDS: SODIUM BICARBONATE TAB 650 MG TAB PO SCH ×2 (08:04→20:15)
[2018-10-31] MEDS: hydrALAZINE HCL 50 MG TAB PO SCH ×3 (08:04→21:18)
[2018-10-31] MEDS: LISINOPRIL 20 MG TAB PO SCH (08:04)
[2018-10-31] MEDS: FUROSEMIDE 40 MG TAB PO SCH ×2 (08:05→16:57)
[2018-10-31] MEDS: CARBIDOPA-LEVODOPA 25-100 MG 1 EACH TAB PO SCH ×3 (08:05→21:17)
[2018-10-31] MEDS: NYSTATIN 100,000 UNIT/ML SUSP 500,000 UNIT/5 ML CUP PO SCH ×4 (08:05→21:17)
[2018-10-31] MEDS: AMIODARONE 200 MG TAB PO SCH (08:05)
[2018-10-31 08:10] LABS: Albumin 3.1 g/dL (3.5-5.0); Calcium 8.4 mg/dL (8.4-10.2); Potassium 3.7 mmol/L (3.5-5.1); Total Bilirubin 0.8 mg/dL (0.2-1.3); Total Protein 5.9 g/dL (6.3-8.2)
--- NOTE | 2018-10-31 08:10 | XR ---
EXAMINATION TYPE: XR chest 1V portable DATE OF EXAM: 10/31/2018 HISTORY: Interval change. REFERENCE: Previous study dated 10/27/2018. FINDINGS: The lungs are clear. Heart size is upper limits of normal. Pleural spaces are clear. IMPRESSION: BORDERLINE CARDIOMEGALY.
[2018-10-31 11:17] LABS: Glucose,Whole Blood 193 mg/dL (75-99)
--- NOTE | 2018-10-31 11:49 | P.PN ---
Subjective Progress Note Date: 10/31/18 Patient is 78-year-old male with a PMH of hypertension, diabetes mellitus, and Parkinson's disease presented to the ED via EMS for weakness, inability to ambulate, hyperglycemia, concern for aspiration. The patient lives at home with daughter and who noted that the patient often refuses medications and had been difficult to take care of by the both of them. The chest x-ray in the ED of the right lower lobe infiltrate with suspicion for aspiration pneumonia, the patient was hyperglycemic with lactic acidosis. He was admitted to the medicine service for severe sepsis secondary to aspiration pneumonia with leukocytosis and hyperglycemia. Patient's LFTs were also deranged and right upper quadrant ultrasound was obtained which was concerning for possible cholecystitis. General surgery was consulted and recommended no surgical intervention as LFTs improved. Patient's lactic acidosis resolved and his hyperglycemia improved. Blood cultures resulted positive for Klebsiella and the patient was switched to Zosyn. The patient was subsequently transferred to the Med/Surg unit. The patient was seen and examined at the bedside. He is doing well and denied any active complaints. He ambulated on the unit today with the physical therapist. He denied chest pain, SOB, or cough. Also denied abdominal pain, nausea, vomiting, or dizziness. Objective - Vital Signs Vital signs: Vital Signs Temp 98.4 F 10/31/18 05:00 Pulse 54 L 10/31/18 05:00 Resp 18 10/31/18 05:00 BP 181/80 10/31/18 05:00 Pulse Ox 95 10/31/18 05:00 Intake & Output 10/30/18 10/31/18 10/31/18 18:59 06:59 18:59 Intake Total 200 Output Total 802 1100 Balance -602 -1100 Weight 123.4 kg Intake: Intake, IV Titration 200 Amount Piperacillin-Tazobactam 3 200 .375 gm In Sodium Chloride 0.9% 100 ml @ 25 mls/hr IVPB Q8HR [facility] Rx# :[id number] Output: Urine 800 1100 Stool 2 Other: Voiding Method Bedside Commode Urinal # Voids 1 - Exam General: Non-toxic, in no acute distress, appears stated age, obese HEENT: NC/AT, anicteric sclerae, moist conjunctiva, no lid-lag, PERRLA Cardiovascular: S1/S2 wnl, no murmurs, rubs, or gallops Lungs: Good air entry jeremy, clear to auscultation, no rales/ronchi appreciated, normal respiratory effort, no accessory muscle use Abdominal: Soft, nontender, non-distended, no guarding, rebound, or rigidity Skin: Warm, dry Extremities: Chronic venous stasis changes jeremy LEs with dry flaking skin, no contractures Psychiatric: Alert and oriented to person, place and time, appropriate affect, Intact judgment Neuro: CN II-XII grossly intact, Strength 4/5 in all 4 extremities, Speech intact, Sensation to light touch grossly intact throughout - Labs CBC & Chem 7: 10/31/18 07:10 10/31/18 07:10 Labs: Abnormal Lab Results - Last 24 Hours (Table) 10/30/18 10/30/18 10/31/18 Range/Units 16:55 20:54 00:49 RBC (4.30-5.90) m/uL Hgb (13.0-17.5) gm/dL Hct (39.0-53.0) % Chloride (98-107) mmol/L BUN (9-20) mg/dL Glucose (74-99) mg/dL POC Glucose (mg/dL) 198 H 185 H 178 H (75-99) mg/dL Alkaline Phosphatase (38-126) U/L Total Protein (6.3-8.2) g/dL Albumin (3.5-5.0) g/dL 10/31/18 10/31/18 10/31/18 Range/Units 07:10 07:10 07:19 RBC 4.21 L (4.30-5.90) m/uL Hgb 12.8 L (13.0-17.5) gm/dL Hct 37.9 L (39.0-53.0) % Chloride 109 H (98-107) mmol/L BUN 8 L (9-20) mg/dL Glucose 162 H (74-99) mg/dL POC Glucose (mg/dL) 159 H (75-99) mg/dL Alkaline Phosphatase 253 H (38-126) U/L Total Protein 5.9 L (6.3-8.2) g/dL Albumin 3.1 L (3.5-5.0) g/dL 10/31/18 Range/Units 11:14 RBC (4.30-5.90) m/uL Hgb (13.0-17.5) gm/dL Hct (39.0-53.0) % Chloride (98-107) mmol/L BUN (9-20) mg/dL Glucose (74-99) mg/dL POC Glucose (mg/dL) 193 H (75-99) mg/dL Alkaline Phosphatase (38-126) U/L Total Protein (6.3-8.2) g/dL Albumin (3.5-5.0) g/dL Microbiology - Last 24 Hours (Table) 10/28/18 20:58 Blood Culture - Preliminary Blood No Growth after 48 hours 10/28/18 08:20 Gram Stain - Final Sputum Sputum Culture - Final Smumer albicans Assessment and Plan Plan: Aspiration pneumonia -C/w Zosyn 3.375 gm q8h (Day 4) -Aspiration precautions -Improved CXR Klebsiella bactaremia -Will continue with Zosyn for now pending further infectious disease recommendations Deranged LFTs, RUQ US showing possible cholecystitis (hx of bladder ca w/ resection in 2013) -- improved -GI and surgery recommendations appreciated -Currently is symptomatic -LFTs improved Hyperglycemia -Improved -C/w Levemir 10 U qhs and sliding scale with FS -Patient will need his home insulin regimen to be readjusted since he was not taking them appropriately HTN -Lopressor held due to borderline HR. Currently on Hydralazine 100 mg TID, Lasix 40 mg bid. Will start patient on Lisinopril 40 mg qd. Parkinson's disease -C/w home meds Sinemet CKD -Stable, monitor BMP Lactic acidosis -Resolved DVT//GI prophylaxis - Heparin - No indication for GI prophylaxis Disposition: The patient wishes to go home though may be agreeable to rehab if needed. F/u PT recommendations. Discussed with: Patient Anticipated discharge date: 11/01/[address]: Home A total of 35 minutes was spent on the care of this complex patient more than 50 % of the time was spent in counseling and care coordination.
[2018-10-31 17:21] LABS: Glucose,Whole Blood 175 mg/dL (75-99)
[2018-10-31 20:03] LABS: Glucose,Whole Blood 202 mg/dL (75-99)
[2018-10-31] MEDS: INSULIN DETEMIR 100 UNIT/ML 10 ML VIAL SQ SCH (21:18)
[2018-10-31 22:15] VITALS: RESP 16
[2018-11-01 02:15] LABS: Glucose,Whole Blood 173 mg/dL (75-99)
[2018-11-01] MEDS: INSULIN ASPART 100 UNIT/ML 1 ML 10 ML VIAL SQ SCH ×3 (02:29→13:17)
[2018-11-01] MEDS: METOPROLOL TARTRATE 50 MG TAB PO SCH (02:47)
[2018-11-01 07:22] LABS: Glucose,Whole Blood 165 mg/dL (75-99)
[2018-11-01] MEDS: HEPARIN SODIUM,PORCINE 5,000 UNIT/ML 1 ML VIAL SQ SCH (07:31)
[2018-11-01] MEDS: PIPERACILLIN-TAZOBACTAM 3.375 GM in SODIUM CHLORIDE 0.9% 100 ML IVPB SCH (07:31)
[2018-11-01] MEDS: SODIUM BICARBONATE TAB 650 MG TAB PO SCH (07:32)
[2018-11-01] MEDS: CARBIDOPA-LEVODOPA 25-100 MG 1 EACH TAB PO SCH (07:32)
[2018-11-01] MEDS: LISINOPRIL 20 MG TAB PO SCH (07:32)
[2018-11-01] MEDS: FUROSEMIDE 40 MG TAB PO SCH (07:32)
[2018-11-01] MEDS: hydrALAZINE HCL 50 MG TAB PO SCH (07:32)
[2018-11-01] MEDS: TAMSULOSIN 0.4 MG CAP.ER.24H PO SCH (07:32)
[2018-11-01] MEDS: AMIODARONE 200 MG TAB PO SCH (07:32)
[2018-11-01] MEDS: NYSTATIN 100,000 UNIT/ML SUSP 500,000 UNIT/5 ML CUP PO SCH ×2 (07:33→13:21)
[2018-11-01 08:22] LABS: Albumin 3.2 g/dL (3.5-5.0); Calcium 8.9 mg/dL (8.4-10.2); Potassium 3.9 mmol/L (3.5-5.1); Total Bilirubin 0.8 mg/dL (0.2-1.3)
[2018-11-01 11:24] LABS: Glucose,Whole Blood 238 mg/dL (75-99)
--- NOTE | 2018-11-01 11:52 | P.DS ---
Providers Date of admission: 10/27/18 02:38 Expected date of discharge: 11/01/18 Attending physician: Payal Boo MD Consults: 10/27/18 15:06 Consult Physician Urgent Consulting Provider: Daniella Koch Consult Reason/Comments: Deranged LFTs, abnormal RUQ US Do you want consulting provider notified?: Yes 10/28/18 11:36 Consult Physician Routine Consulting Provider: James Díaz Consult Reason/Comments: Gallbladder, liver US Do you want consulting provider notified?: Yes 10/28/18 11:37 Consult Physician Routine Consulting Provider: Maurice hCilds Consult Reason/Comments: positive blood cultures, gallbladder Do you want consulting provider notified?: Yes Primary care physician: Joselito Prior - Discharge Diagnosis(es) (1) Bacteremia due to Klebsiella pneumoniae Current Visit: Yes Status: Acute (2) Pneumonia Current Visit: Yes Status: Acute (3) Sepsis Current Visit: Yes Status: Acute (4) Uncontrolled type 2 diabetes mellitus with hyperglycemia Current Visit: Yes Status: Acute (5) Transaminitis Current Visit: Yes Status: Acute (6) Biliary sludge determined by ultrasound Current Visit: Yes Status: Acute (7) HTN (hypertension) Current Visit: Yes Status: Acute (8) Parkinson disease Current Visit: Yes Status: Acute Hospital Course: Patient is 78-year-old male with a PMH of hypertension, diabetes mellitus, and Parkinson's disease presented to the ED via EMS for weakness, inability to ambulate, hyperglycemia, concern for aspiration. The patient lives at home with daughter and who noted that the patient often refuses medications and had been difficult to take care of by the both of them. The chest x-ray in the ED of the right lower lobe infiltrate with suspicion for aspiration pneumonia, the patient was hyperglycemic with lactic acidosis. He was admitted to the medicine service for severe sepsis secondary to aspiration pneumonia with leukocytosis and hyperglycemia. Patient's LFTs were also deranged and right upper quadrant ultrasound was obtained which was concerning for possible cholecystitis. General surgery was consulted and recommended no surgical intervention while inpatient as LFTs improved, with plans to follow up in clinic for possible scheduled outpatient cholecystectomy. Patient's lactic acidosis resolved and his hyperglycemia improved. Blood cultures resulted positive for Klebsiella and the patient was switched to Zosyn. The patient was subsequently transferred to the Med/Surg unit. The patient had ongoing uncontrolled type 2 diabetes with hyperglycemia with A1c at 12.3 he was started on basal insulin along with correctional scale coverage. Levemir was titrated up to 12 units daily at bedtime for adequate blood sugar control. As the patient continued to improve and return to his baseline was subsequently discharged home in stable condition. This discharge process took approximately 35 minutes Focused exam Respiratory: Clear to auscultation bilaterally no wheezes or rhonchi Patient Condition at Discharge: Good Plan - Discharge Summary Discharge Rx Participant: No New Discharge Prescriptions: New Ciprofloxacin HCl [Cipro] 500 mg PO Q12HR #20 tablet hydrALAZINE HCL [Apresoline] 100 mg PO TID #90 tab Lisinopril [Zestril] 40 mg PO DAILY #30 tab Nystatin 100,000 Unit/ml Susp [Mycostatin Oral Susp] 500,000 unit PO QID 4 Days #4 Insulin Aspart [NovoLOG Flexpen] 3 units SQ AC-TID 30 Days #30 ml Insulin Glargine,Hum.rec.anlog [Lantus Solostar] 12 unit SQ HS 30 Days #30 ml Continue Albuterol Inhaler [Ventolin Hfa Inhaler] 2 puff INHALATION RT-Q6H PRN PRN Reason: Dyspnea Amiodarone HCl 200 mg PO QAM Metoprolol Tartrate 50 mg PO QAM Carbidopa-Levodopa 25-100 mg [Sinemet 25-100 mg] 2 tab PO TID Sodium Bicarbonate Tab 650 mg PO BID #30 tab Tamsulosin [Flomax] 0.4 mg PO PC-BRKFST #30 cap.er.24h Furosemide [Lasix] 40 mg PO BID Discontinued Insulin Lispro Protamin/Lispro [humaLOG Mix 75-25 Kwikpen] 75 unit SQ BID PRN PRN Reason: scale Discharge Medication List Albuterol Inhaler [Ventolin Hfa Inhaler] 2 puff INHALATION RT-Q6H PRN 03/15/14 [ History] Amiodarone HCl 200 mg PO QAM 04/21/14 [History] Metoprolol Tartrate 50 mg PO QAM 04/21/16 [History] Carbidopa-Levodopa 25-100 mg [Sinemet 25-100 mg] 2 tab PO TID 07/08/16 [History] Sodium Bicarbonate Tab 650 mg PO BID #30 tab 08/04/18 [Rx] Tamsulosin [Flomax] 0.4 mg PO PC-BRKFST #30 cap.er.24h 08/04/18 [Rx] Furosemide [Lasix] 40 mg PO BID 10/27/18 [History] Ciprofloxacin HCl [Cipro] 500 mg PO Q12HR #20 tablet 11/01/18 [Rx] Insulin Aspart [NovoLOG Flexpen] 3 units SQ AC-TID 30 Days #30 ml 11/01/18 [Rx] Insulin Glargine,Hum.rec.anlog [Lantus Solostar] 12 unit SQ HS 30 Days #30 ml [Rx] Lisinopril [Zestril] 40 mg PO DAILY #30 tab 11/01/18 [Rx] Nystatin 100,000 Unit/ml Susp [Mycostatin Oral Susp] 500,000 unit PO QID 4 Days #4 11/01/18 [Rx] hydrALAZINE HCL [Apresoline] 100 mg PO TID #90 tab 11/01/18 [Rx] Follow up Appointment(s)/Referral(s): Joselito Wallis DO [Primary Care Provider] - 11/04/18 2:00 pm [facility] Visiting Nurse, [NON-STAFF] - 1-2 Days James Díaz MD [STAFF PHYSICIAN] - 1 Week Patient Instructions/Handouts: Ciprofloxacin (By mouth), Lisinopril (By mouth) , Nystatin (By mouth), Insulin Aspart, Recombinant (By injection), Hydralazine/ Hydrochlorothiazide (By mouth), Insulin Glargine (By injection), Sepsis (GEN), Pneumonia (DC) Discharge Disposition: HOME SELF-CARE
[2018-11-01 12:29] VITALS: BP 177/69; PULSE 53; TEMP 97.8
[2018-11-01 13:41] VITALS: BMI 40.1
== END 2018-11-01 16:35 | disposition home or self-care (01) | DRG 871 ==
LOC: EC 00:30 → 4SSUR 02:38 → 2SICU 08:35 → 3NMEDONC 10-29 15:45
PROVIDERS: ADMIT Internal Medicine; ATTEND Internal Medicine
DX: A41.59 Other Gram-negative sepsis (principal); J69.0 Pneumonitis due to inhalation of food and vomit; B37.0 Candidal stomatitis; I13.0 Hypertensive heart and chronic kidney disease with heart failure and stage 1 through stage 4 chronic kidney disease, or unspecified chronic kidney disease; I50.32 Chronic diastolic (congestive) heart failure; N17.9 Acute kidney failure, unspecified; R65.20 Severe sepsis without septic shock; M34.9 Systemic sclerosis, unspecified; E11.22 Type 2 diabetes mellitus with diabetic chronic kidney disease; E11.65 Type 2 diabetes mellitus with hyperglycemia; E86.0 Dehydration; G20 Parkinson's disease; J44.9 Chronic obstructive pulmonary disease, unspecified; K81.9 Cholecystitis, unspecified; E66.01 Morbid (severe) obesity due to excess calories; N18.3 Chronic kidney disease, stage 3 (moderate); F40.240 Claustrophobia; I87.2 Venous insufficiency (chronic) (peripheral); H26.9 Unspecified cataract; K57.90 Diverticulosis of intestine, part unspecified, without perforation or abscess without bleeding; E07.9 Disorder of thyroid, unspecified; F41.9 Anxiety disorder, unspecified; Z79.4 Long term (current) use of insulin; Z79.890 Hormone replacement therapy; Z79.899 Other long term (current) drug therapy; Z88.6 Allergy status to analgesic agent; Z87.891 Personal history of nicotine dependence; Z85.51 Personal history of malignant neoplasm of bladder; Z86.73 Personal history of transient ischemic attack (TIA), and cerebral infarction without residual deficits; Z91.14 Patient's other noncompliance with medication regimen; Z91.19 Patient's noncompliance with other medical treatment and regimen; Z80.3 Family history of malignant neoplasm of breast; Z80.8 Family history of malignant neoplasm of other organs or systems; Z82.49 Family history of ischemic heart disease and other diseases of the circulatory system; Z83.518 Family history of other specified eye disorder
CPT/HCPCS: 36415; 71045; 76705; 80048; 80053; 81003; 82009; 82550; 82553; 83036; 83605; 84484; 85025; 85610; 85730; 87040; 87070; 87077; 87086; 87186; 87205; 87502; 93005; 94760; 96360; 96365; 96367; 99291

== ENCOUNTER 2018-12-31 05:42 | Inpatient (IN) | payer MEDICARE ==
[2018-12-31 06:53] LABS: Appearance,Urine Clear (Clear); Basophils % (A) 0 %; Bilirubin,Urine Negative (Negative); Blood,Urine Negative (Negative); Color,Urine Yellow; Eosinophils # (A) 0.1 k/uL (0-0.7); Eosinophils % (A) 1 %; Glucose,Urine (UA) 4+ (Negative); HCT 42.8 % (39.0-53.0); HGB 13.8 gm/dL (13.0-17.5); Ketones,Urine Negative (Negative); Leukocyte Esterase,Urine Negative (Negative); Lymphocytes # (A) 1.1 k/uL (1.0-4.8); Lymphocytes % (A) 9 %; MCH 29.8 pg (25.0-35.0); MCHC 32.1 g/dL (31.0-37.0); MCV 92.8 fL (80.0-100.0); Monocytes # (A) 0.3 k/uL (0-1.0); Monocytes % (A) 3 %; Neutrophils # (A) 10.4 k/uL (1.3-7.7); Neutrophils % (A) 87 %; Nitrite,Urine Negative (Negative); PH, Urine 5.5 (5.0-8.0); Platelet Count 163 k/uL (150-450); Protein,Urine Negative (Negative); RBC 4.61 m/uL (4.30-5.90); RDW 14.3 % (11.5-15.5)
--- NOTE | 2018-12-31 07:04 | XR ---
EXAMINATION TYPE: XR KUB DATE OF EXAM: 12/31/2018 7:00 AM CLINICAL HISTORY: Abdominal pain with nausea and vomiting. TECHNIQUE: Two supine KUB images of the abdomen are obtained. COMPARISON: Abdominal x-ray November 11, 2014 FINDINGS: Scattered gas is seen in non-distended stomach and small bowel loops. Some gas-filled small bowel loops left mid to lower abdomen are slightly more prominent. Gas and fecal material is seen in non-distended colon. Multilevel spurring throughout the visualized spine is present. Visualized lung bases are clear. No suspicious calcifications are seen. IMPRESSION: Overall nonspecific but favor nonobstructive bowel gas pattern.
[2018-12-31] MEDS ORDERED: SODIUM CHLORIDE 0.9% 1,000 ML IV ONE (07:14)
[2018-12-31] MEDS ORDERED: ONDANSETRON 4 MG/2 ML VIAL IVP STA (07:14)
--- NOTE | 2018-12-31 07:14 | ED ---
Abdominal Pain HPI - General Source: patient Mode of arrival: ambulatory Limitations: no limitations <Aida Mayers - Last Filed: 12/31/18 07:10> <Daquan Rolle - Last Filed: 12/31/18 09:21> - General Chief Complaint: Abdominal Pain Stated Complaint: abd pain Time Seen by Provider: 12/31/18 06:25 - History of Present Illness Initial Comments: Dayday is a 78-year-old male who presents the emergency department this morning for evaluation of crampy abdominal pain nausea and nonbloody nonbilious emesis. Patient reports he woke suddenly this morning with the symptoms. He has no history of GI pathology no history of bowel obstructions in the past. He reports he's feeling some relief of the abdominal discomfort after vomiting. Patient reports he had multiple episodes of nonbloody nonbilious emesis. He has not had any diarrhea. He denies any suspicious food intake. Feeling at his baseline. (Aida Mayers) Patient care was signed out to me by previous shift physician Dr. Mayers. Briefly, patient presents for right upper quadrant pain. Patient did have mild leukocytosis. He was spiking temperatures with documented 101F and then 1% oxygen on room air. Ultrasound was performed showing tumefactive sludge. Given the patient is right upper quadrant pain with positive gallbladder ultrasound findings or concern of ascending cholangitis. Patient given a dose of Unasyn ordered by Dr. Mayers. Patient otherwise appears medically stable at this time. No signs of shock. Clinical presentation concerning for sepsis given the pitcher, positive imaging findings, pyrexia. Gastroenterology be on consult. (Daquan Rolle) - Related Data Home Medications Medication Instructions Recorded Confirmed Albuterol Inhaler [Ventolin Hfa 2 puff INHALATION RT-Q4H PRN 03/15/14 12/31/18 Inhaler] Amiodarone HCl 200 mg PO QAM 04/21/14 12/31/18 Metoprolol Tartrate 25 mg PO BID 04/21/16 12/31/18 Carbidopa-Levodopa 25-100 mg 2 tab PO TID 07/08/16 12/31/18 [Sinemet 25-100 mg] Furosemide [Lasix] 40 mg PO BID 10/27/18 12/31/18 Levothyroxine Sodium [Synthroid] 88 mcg PO DAILY 12/31/18 12/31/18 Previous Rx's Medication Instructions Recorded Insulin Aspart [NovoLOG Flexpen] 3 units SQ AC-TID 30 Days #30 ml 11/01/18 Insulin Glargine,Hum.rec.anlog 12 unit SQ HS 30 Days #30 ml 11/01/18 [Lantus Solostar] Lisinopril [Zestril] 40 mg PO DAILY #30 tab 11/01/18 Nystatin 100,000 Unit/ml Susp 500,000 unit PO QID 4 Days #4 11/01/18 [Mycostatin Oral Susp] hydrALAZINE HCL [Apresoline] 100 mg PO TID #90 tab 11/01/18 Allergies Allergy/AdvReac Type Severity Reaction Status Date / Time aspirin Allergy Swelling Verified 12/31/18 08:25 NSAIDS (Non-Steroidal Allergy Swelling Verified 12/31/18 08:25 Anti-Inflamma Review of Systems ROS Other: All systems not noted in ROS Statement are negative. <Aida Mayers P - Last Filed: 12/31/18 07:10> ROS Other: All systems not noted in ROS Statement are negative. <Daquan Rolle - Last Filed: 12/31/18 09:21> ROS Statement: Those systems with pertinent positive or pertinent negative responses have been documented in the HPI. Past Medical History Past Medical History: Atrial Flutter, Cancer, Heart Failure, COPD, Diabetes Mellitus, Hypertension, Thyroid Disorder Additional Past Medical History / Comment(s): HX A-FLUTTER/TACHYCARDIA- TX W/ SAL/CARDIOVERSION, HAS BLADDER CA WITH SURGERY AND BLADDER INSTILLATION OF MED FOR BLADDER CANCER, IDC WITH UTI-REMOVED, IDDM TYPE II, BILATERAL CATARACTS, ABD HERNIA. PARKINSONS, DIVERTICULITIS, EDEMA FEET/LEGS, DDD lower spine, acute renal failure d/t acute tubular necrosis d/t sepsis, possible CKD. Last Myocardial Infarction Date:: UNK History of Any Multi-Drug Resistant Organisms: None Reported Past Surgical History: Adenoidectomy, Bladder Surgery, Tonsillectomy Additional Past Surgical History / Comment(s): 2013 CARDIOVERSION, SAL. BLADDER TUMOR REMOVED,cystoscopy with bladder CA TREATMENTS Past Anesthesia/Blood Transfusion Reactions: Previous Problems w/ Anesthesia Additional Past Anesthesia/Blood Transfusion Reaction / Comment(s): HX CLAUSTROPHOBIA Past Psychological History: Anxiety Smoking Status: Former smoker Past Alcohol Use History: None Reported Past Drug Use History: None Reported - Past Family History Father Family Medical History: Cancer Additional Family Medical History / Comment(s): Bone cancer. Mother Family Medical History: Coronary Artery Disease (CAD) Additional Family Medical History / Comment(s): Macular degeneration Sister(s) Family Medical History: Cancer Additional Family Medical History / Comment(s): breast CA <Aida Mayers - Last Filed: 12/31/18 07:10> General Exam Limitations: no limitations <Aida Mayers - Last Filed: 12/31/18 07:10> - General Exam Comments Initial Comments: Physical Exam GENERAL: Elderly male appears uncomfortable HENT: Normocephalic, Atraumatic. Edentulous EYES: PERRL, EOMI PULMONARY: Unlabored respirations. No audible rales rhonchi or wheezing was noted. CARDIOVASCULAR: Tachycardic, regular warm and well perfused extremities ABDOMEN: Soft and nontender, nondistended with normal bowel sounds. SKIN: It is very warm to the touch Skin is clear with no lesions or rashes and otherwise unremarkable. : Deferred NEUROLOGIC: Patient is alert and oriented x3. Moving all extremities spontaneously Tremor at baseline MUSCULOSKELETAL: Normal extremities with adequate strength and full range of motion. No lower extremity swelling or edema. No calf tenderness. PSYCHIATRIC: Normal psychiatric evaluation. Limitations: no limitations (Aida Mayers) Course Vital Signs 12/31/18 12/31/18 12/31/18 05:45 07:19 08:52 Temperature 98.3 F 101 F H 99.1 F Pulse Rate 73 86 91 Respiratory 20 22 22 Rate Blood Pressure 172/63 150/70 134/68 O2 Sat by Pulse 95 91 L 99 Oximetry Medical Decision Making - Lab Data Result diagrams: 12/31/18 06:31 <Aida Mayers - Last Filed: 12/31/18 07:10> - Lab Data Result diagrams: 12/31/18 06:31 12/31/18 06:31 <Daquan Rolle - Last Filed: 12/31/18 09:21> - Medical Decision Making Patient was seen and evaluated history was obtained from the patient The elderly male with nonbloody nonbilious emesis, and he appears very warm to the touch, oral temp is 100.1 Influenza swab was obtained to evaluate for possible flu be Labs and imaging were ordered Labs reveal leukocytosis X-ray reveals no acute obstruction (Aida Mayers) - Lab Data Lab Results 12/31/18 12/31/18 12/31/18 Range/Units 06:31 06:31 06:31 WBC 12.0 H (3.8-10.6) k/uL RBC 4.61 (4.30-5.90) m/uL Hgb 13.8 (13.0-17.5) gm/dL Hct 42.8 (39.0-53.0) % MCV 92.8 (80.0-100.0) fL MCH 29.8 (25.0-35.0) pg MCHC 32.1 (31.0-37.0) g/dL RDW 14.3 (11.5-15.5) % Plt Count 163 (150-450) k/uL Neutrophils % 87 % Lymphocytes % 9 % Monocytes % 3 % Eosinophils % 1 % Basophils % 0 % Neutrophils # 10.4 H (1.3-7.7) k/uL Lymphocytes # 1.1 (1.0-4.8) k/uL Monocytes # 0.3 (0-1.0) k/uL Eosinophils # 0.1 (0-0.7) k/uL Basophils # 0.0 (0-0.2) k/uL Sodium 140 (137-145) mmol/L Potassium 4.9 (3.5-5.1) mmol/L Chloride 102 (98-107) mmol/L Carbon Dioxide 26 (22-30) mmol/L Anion Gap 12 mmol/L BUN 33 H (9-20) mg/dL Creatinine 1.81 H (0.66-1.25) mg/dL Est GFR (CKD-EPI)AfAm 41 (>60 ml/min/1.73 sqM) Est GFR (CKD-EPI)NonAf 35 (>60 ml/min/1.73 sqM) Glucose 452 H (74-99) mg/dL POC Glucose (mg/dL) (75-99) mg/dL POC Glu Ambulance Officer ID Calcium 9.2 (8.4-10.2) mg/dL Total Bilirubin 2.9 H (0.2-1.3) mg/dL AST 252 H (17-59) U/L ALT 53 (21-72) U/L Alkaline Phosphatase 227 H (38-126) U/L Total Protein 7.0 (6.3-8.2) g/dL Albumin 4.0 (3.5-5.0) g/dL Amylase <30 L (30-110) U/L Lipase 199 (23-300) U/L Urine Color Yellow Urine Appearance Clear (Clear) Urine pH 5.5 (5.0-8.0) Ur Specific [place] 1.020 (1.001-1.035) Urine Protein Negative (Negative) Urine Glucose (UA) 4+ H (Negative) Urine Ketones Negative (Negative) Urine Blood Negative (Negative) Urine Nitrite Negative (Negative) Urine Bilirubin Negative (Negative) Urine Urobilinogen 3.0 (<2.0) mg/dL Ur Leukocyte Esterase Negative (Negative) Influenza Type A RNA (Not Detectd) Influenza Type B (PCR) (Not Detectd) 12/31/18 12/31/18 Range/Units 07:15 08:50 WBC (3.8-10.6) k/uL RBC (4.30-5.90) m/uL Hgb (13.0-17.5) gm/dL Hct (39.0-53.0) % MCV (80.0-100.0) fL MCH (25.0-35.0) pg MCHC (31.0-37.0) g/dL RDW (11.5-15.5) % Plt Count (150-450) k/uL Neutrophils % % Lymphocytes % % Monocytes % % Eosinophils % % Basophils % % Neutrophils # (1.3-7.7) k/uL Lymphocytes # (1.0-4.8) k/uL Monocytes # (0-1.0) k/uL Eosinophils # (0-0.7) k/uL Basophils # (0-0.2) k/uL Sodium (137-145) mmol/L Potassium (3.5-5.1) mmol/L Chloride (98-107) mmol/L Carbon Dioxide (22-30) mmol/L Anion Gap mmol/L BUN (9-20) mg/dL Creatinine (0.66-1.25) mg/dL Est GFR (CKD-EPI)AfAm (>60 ml/min/1.73 sqM) Est GFR (CKD-EPI)NonAf (>60 ml/min/1.73 sqM) Glucose (74-99) mg/dL POC Glucose (mg/dL) 366 H (75-99) mg/dL POC Glu Ambulance Officer ID Star Garcia Calcium (8.4-10.2) mg/dL Total Bilirubin (0.2-1.3) mg/dL AST (17-59) U/L ALT (21-72) U/L Alkaline Phosphatase (38-126) U/L Total Protein (6.3-8.2) g/dL Albumin (3.5-5.0) g/dL Amylase (30-110) U/L Lipase (23-300) U/L Urine Color Urine Appearance (Clear) Urine pH (5.0-8.0) Ur Specific [place] (1.001-1.035) Urine Protein (Negative) Urine Glucose (UA) (Negative) Urine Ketones (Negative) Urine Blood (Negative) Urine Nitrite (Negative) Urine Bilirubin (Negative) Urine Urobilinogen (<2.0) mg/dL Ur Leukocyte Esterase (Negative) Influenza Type A RNA Not Detected (Not Detectd) Influenza Type B (PCR) Not Detected (Not Detectd) Disposition <Aida Mayers P - Last Filed: 12/31/18 07:10> Decision Time: 09:21 <Daquan Rolle - Last Filed: 12/31/18 09:21> Clinical Impression: Acute abdomen Disposition: ADMITTED IP TO THIS HOSP Condition: Fair Referrals: Joselito Wallis DO [Primary Care Provider] - 1-2 days
[2018-12-31 07:15] LABS: ALT 53 U/L (21-72); AST 252 U/L (17-59); Alkaline Phosphatase 227 U/L (38-126); Amylase <30 U/L (30-110); Anion Gap 12 mmol/L; Blood Urea Nitrogen 33 mg/dL (9-20); Calcium 9.2 mg/dL (8.4-10.2); Carbon Dioxide 26 mmol/L (22-30); Chloride 102 mmol/L (98-107); Glucose 452 mg/dL (74-99); Lipase 199 U/L (23-300); Potassium 4.9 mmol/L (3.5-5.1); Sodium 140 mmol/L (137-145); Total Bilirubin 2.9 mg/dL (0.2-1.3)
[2018-12-31] MEDS ORDERED: ACETAMINOPHEN TAB 325 MG TAB PO STA (07:21)
[2018-12-31] MEDS: INSULIN ASPART (NovoLOG) 100 UNIT/ML VIAL SQ SCH ×4 (07:33→21:05)
[2018-12-31] MEDS ORDERED: AMPICILLIN-SULBACTAM 1.5 GM in SODIUM CHLORIDE 0.9% 50 ML IVPB STA (07:33)
[2018-12-31] MEDS: SODIUM CHLORIDE 0.9% 1,000 ML IV SCH ×2 (07:57→17:55)
[2018-12-31 08:51] LABS: Glucose,Whole Blood 366 mg/dL (75-99)
--- NOTE | 2018-12-31 09:10 | US ---
EXAMINATION TYPE: US gallbladder DATE OF EXAM: 12/31/2018 COMPARISON: Prior ultrasound liver 10/27/2018 CLINICAL HISTORY: Pain, vomiting, transaminitis. EXAM MEASUREMENTS: Liver Length: 25.0 cm Gallbladder Wall: 0.3 cm CBD: 1.3 cm Right Kidney: 10.7 x 5.2 x 6.3 cm Er patient who had to sit up during exam, couldn't hold his breath, couldn't LLD, large body habitus, technically difficult study Pancreas: Obscured by bowel gas Liver: Increased attenuation, decreased visualization of vessels suggestive of fatty infiltrate, enl arged, unable to visualized in its entirety, see above limitations Gallbladder: sludge, enlarged Evidence for sonographic Baez's sign: no CBD: dilated Right Kidney: wnl as seen, not well visualized No ascites evident. IMPRESSION: Hepatomegaly. Possible hepatocellular disease, hepatic steatosis. Again noted is tumefact mannie sludge within a distended gallbladder. There is a dilated common bile duct as on prior. Consider gastroenterology consult. Limited exam.
[2018-12-31] MEDS ORDERED: MORPHINE SULFATE 2 MG/ML SYRINGE IV PRN (09:21)
[2018-12-31] MEDS ORDERED: NALOXONE 0.4 MG/ML 1 ML VIAL IV PRN (09:21)
[2018-12-31] MEDS ORDERED: ONDANSETRON 4 MG/2 ML VIAL IVP PRN (09:21)
[2018-12-31] MEDS ORDERED: ACETAMINOPHEN TAB 325 MG TAB PO PRN (09:21)
[2018-12-31] MEDS ORDERED: SODIUM CHLORIDE 0.9% 1,000 ML IV SCH (09:30)
[2018-12-31 11:41] LABS: Glucose,Whole Blood 273 mg/dL (75-99)
--- NOTE | 2018-12-31 15:47 | P.HPIM ---
History of Present Illness H&P Date: 12/31/18 The patient is a 78-year-old male with a PMH of hypertension, diabetes mellitus, and Parkinson's disease presented to the ED for abdominal pain, nausea, vomiting, and fever at home since earlier today. The patient notes that his symptoms started suddenly this morning. He had cramping, 8 out of 10, constant diffuse abdominal pain, nonradiating, with no alleviating or exacerbating features, along with nausea and multiple episodes of nonbloody nonbilious emesis. The patient reports that after vomiting, abdominal pain improved significantly. At time of the interview, the patient reported that his pain was 3 out of 10 and his nausea had resolved. He otherwise denied diarrhea, constipation, chest pain, shortness of breath, or dizziness. Of note, the patient was previously admitted to [facility] on 10/27/2018 for aspiration pneumonia at which time he had complained of abdominal pain and was found to have deranged LFTs. Right upper quadrant ultrasound at that time and showed possible cholecystitis and Gen. surgery was consulted and recommended no surgical intervention with possible scheduled outpatient cholecystectomy. The patient underwent a comprehensive workup in the emergency room, with WBC count 12, hemoglobin 13, creatinine 1.81, lactate acid 2.2, and glucose 452. RUQ US in the ED revealed biliary sludge and the patient was febrile to 101 degrees. the patient was subsequently admitted to the medicine service for suspected cholangitis. Review of Systems Pertinent positives and negatives as discussed in HPI, a complete review of syst ems was performed and all other systems are negative. Past Medical History Past Medical History: Atrial Flutter, Cancer, Heart Failure, COPD, Diabetes Mellitus, Hypertension, Musculoskeletal Disorder, Neurologic Disorder, Thyroid Disorder Additional Past Medical History / Comment(s): PT ADMITTED ON 10/27/18 WITH BACTEREMIA D/T KLEBSIELLA PNE/TRANSAMINITIS/BILIARY SLUDGE PER US. OTHERHX: HX A-FLUTTER/TACHYCARDIA- TX W/ SAL/CARDIOVERSION, HAS BLADDER CA WITH SURGERY AND BLADDER INSTILLATION OF MED FOR BLADDER CANCER, IDC WITH UTI-REMOVED, IDDM TYPE II, BILATERAL CATARACTS, ABD HERNIA. PARKINSONS, DIVERTICULITIS, EDEMA FEET/LEGS, DDD lower spine, HYPOTHYROID, PNEUMONIA WITH SEPSIS, acute renal failure d/t acute tubular necrosis d/t sepsis, possible CKD. Last Myocardial Infarction Date:: UNK History of Any Multi-Drug Resistant Organisms: None Reported Past Surgical History: Adenoidectomy, Bladder Surgery, Tonsillectomy Additional Past Surgical History / Comment(s): 2014 CARDIOVERSION, SAL. BLADDER TUMOR REMOVED,cystoscopy with bladder CA TREATMENTS, colonoscopy Past Anesthesia/Blood Transfusion Reactions: Previous Problems w/ Anesthesia Additional Past Anesthesia/Blood Transfusion Reaction / Comment(s): HX CLAUSTROPHOBIA Smoking Status: Former smoker - Past Family History Father Family Medical History: Cancer Additional Family Medical History / Comment(s): Bone cancer. Mother Family Medical History: Coronary Artery Disease (CAD) Additional Family Medical History / Comment(s): Macular degeneration Sister(s) Family Medical History: Cancer Additional Family Medical History / Comment(s): breast CA Medications and Allergies Home Medications Medication Instructions Recorded Confirmed Type Albuterol Inhaler [Ventolin Hfa 2 puff INHALATION RT-Q4H PRN 03/15/14 12/31/18 History Inhaler] Amiodarone HCl 200 mg PO QAM 04/21/14 12/31/18 History Metoprolol Tartrate 25 mg PO BID 04/21/16 12/31/18 History Carbidopa-Levodopa 25-100 mg 2 tab PO TID 07/08/16 12/31/18 History [Sinemet 25-100 mg] Furosemide [Lasix] 40 mg PO BID 10/27/18 12/31/18 History Fluticasone Nasal [place] [Flonase 1 spray EA NOSTRIL DAILY 12/31/18 12/31/18 History Nasal [place]] Insulin Lispro Protamin/Lispro 65 unit SQ HS 12/31/18 12/31/18 History [humaLOG Mix 75-25 Kwikpen] Insulin Lispro Protamin/Lispro 75 unit SQ QAM 12/31/18 12/31/18 History [humaLOG Mix 75-25 Kwikpen] Levothyroxine Sodium [Synthroid] 88 mcg PO DIRECTED 12/31/18 12/31/18 History Lisinopril [Zestril] 40 mg PO DIRECTED 12/31/18 12/31/18 History Allergies Allergy/AdvReac Type Severity Reaction Status Date / Time aspirin Allergy Swelling Verified 12/31/18 08:25 NSAIDS (Non-Steroidal Allergy Swelling Verified 12/31/18 08:25 Anti-Inflamma Physical Exam Vitals: Vital Signs Temp Pulse Resp BP Pulse Ox 12/31/18 11:46 97.5 F L 82 20 114/54 100 12/31/18 08:52 99.1 F 91 22 134/68 99 12/31/18 07:19 101 F H 86 22 150/70 91 L 12/31/18 05:45 98.3 F 73 20 172/63 95 Intake and Output 12/31/18 12/31/18 12/31/18 06:59 14:59 22:59 Intake Total 300 Balance 300 Intake: Amount of Fluid Infused ( 300 ml) Other: Weight 123.377 kg General: non toxic, no distress, appears at stated age, obese Derm: Chronic venous stasis changes bilateral lower extremities with dry flaking skin, warm, dry Head: atraumatic, normocephalic, symmetric Eyes: EOMI, no lid lag, anicteric sclera, pupils equal round reactive to light ENT: Nose and ears atraumatic, no thrush, no pharyngeal erythema Neck: No thyromegaly, no cervical lymphadenopathy, trachea midline, supple Mouth: no lip lesion, mucus membranes moist Cardiovascular: S1S2 reg, no murmur, positive posterior tibial pulse bilateral, no edema, capillary refill less than 2 seconds Lungs: CTA bilateral, no rhonchi, no rales , no accessory muscle use Abdominal: soft, mild diffuse tenderness to palpation, no guarding, no appreciable organomegaly, normal bowel sounds Ext: no gross muscle atrophy, muscle strength 4 out of 5 in all 4 extremities grossly, no contractures, Neuro: CN II-XI grossly intact, light touch intact all 4 extremities, finger to nose within normal limits, Psych: Alert, oriented, appropriate affect Results CBC & Chem 7: 12/31/18 06:31 12/31/18 06:31 Labs: Abnormal Lab Results - Last 24 Hours (Table) 12/31/18 12/31/18 12/31/18 Range/Units 06:31 06:31 06:31 WBC 12.0 H (3.8-10.6) k/uL Neutrophils # 10.4 H (1.3-7.7) k/uL BUN 33 H (9-20) mg/dL Creatinine 1.81 H (0.66-1.25) mg/dL Glucose 452 H (74-99) mg/dL POC Glucose (mg/dL) (75-99) mg/dL Plasma Lactic Acid Riley (0.7-2.0) mmol/L Total Bilirubin 2.9 H (0.2-1.3) mg/dL AST 252 H (17-59) U/L Alkaline Phosphatase 227 H (38-126) U/L Amylase <30 L (30-110) U/L Urine Glucose (UA) 4+ H (Negative) 12/31/18 12/31/18 12/31/18 Range/Units 08:50 10:05 11:40 WBC (3.8-10.6) k/uL Neutrophils # (1.3-7.7) k/uL BUN (9-20) mg/dL Creatinine (0.66-1.25) mg/dL Glucose (74-99) mg/dL POC Glucose (mg/dL) 366 H 273 H (75-99) mg/dL Plasma Lactic Acid Riley 3.4 H* (0.7-2.0) mmol/L Total Bilirubin (0.2-1.3) mg/dL AST (17-59) U/L Alkaline Phosphatase (38-126) U/L Amylase (30-110) U/L Urine Glucose (UA) (Negative) 12/31/18 Range/Units 13:49 WBC (3.8-10.6) k/uL Neutrophils # (1.3-7.7) k/uL BUN (9-20) mg/dL Creatinine (0.66-1.25) mg/dL Glucose (74-99) mg/dL POC Glucose (mg/dL) (75-99) mg/dL Plasma Lactic Acid Riley 2.2 H* (0.7-2.0) mmol/L Total Bilirubin (0.2-1.3) mg/dL AST (17-59) U/L Alkaline Phosphatase (38-126) U/L Amylase (30-110) U/L Urine Glucose (UA) (Negative) Thrombosis Risk Factor Assmnt - Choose All That Apply Any of the Below Risk Factors Present?: Yes Each Factor Represents 1 point: Abnormal pulmonary function (COPD), Obesity (BMI >25) Other Risk Factors: Yes Each Risk Factor Represents 2 Points: Malignancy Each Risk Factor Represents 3 Points: Age 75 years or older Other congenital or acquired thrombophilia - If yes, enter type in comment: No Thrombosis Risk Factor Assessment Total Risk Factor Score: 7 Thrombosis Risk Factor Assessment Level: High Risk Assessment and Plan Plan: Sepsis secondary to cholangitis -Will switch to Ciprofloxacin and Flagyl -GI consulted -IVFs -Monitor CBC and LFTs -Will consult surgery since previously recommended Cholecystectomy DM w/ hyperglycemia -FS with VAISHALI -Taking 75-25 65 U qhs and 75 U qam -Will place on 20 U of Levemir for now HTN -Hold home meds in setting of sepsis -Resume as warranted Parkinson's -Resume home Sinemet CKD -Monitor BMP DVT//GI proph -Heparin -Protonix
[2018-12-31 17:09] LABS: Glucose,Whole Blood 351 mg/dL (75-99)
[2018-12-31] MEDS: CARBIDOPA-LEVODOPA 25-100 MG 1 EACH TAB PO SCH ×2 (17:55→21:04)
[2018-12-31] MEDS: metroNIDAZOLE 500 MG TAB PO SCH ×2 (17:55→21:04)
[2018-12-31] MEDS: LEVOTHYROXINE 88 MCG TAB PO SCH (17:56)
[2018-12-31 20:43] LABS: Glucose,Whole Blood 311 mg/dL (75-99)
[2018-12-31] MEDS: CIPROFLOXACIN HCL 500 MG TAB PO SCH (21:04)
[2018-12-31] MEDS: INSULIN DETEMIR (LEVEMIR) 100 UNIT/ML SYR SQ SCH (21:05)
[2018-12-31] MEDS: HEPARIN SODIUM,PORCINE 5,000 UNIT/ML 1 ML VIAL SQ SCH (21:06)
[2019-01-01 05:52] LABS: Glucose,Whole Blood 121 mg/dL (75-99)
[2019-01-01] MEDS: INSULIN ASPART (NovoLOG) 100 UNIT/ML VIAL SQ SCH ×4 (06:09→21:16)
[2019-01-01] MEDS: PANTOPRAZOLE 40 MG TABLET PO SCH (06:15)
[2019-01-01] MEDS: LEVOTHYROXINE 88 MCG TAB PO SCH (06:15)
[2019-01-01 06:58] LABS: HCT 37.6 % (39.0-53.0); HGB 12.1 gm/dL (13.0-17.5); MCH 29.2 pg (25.0-35.0); MCHC 32.1 g/dL (31.0-37.0); MCV 91.1 fL (80.0-100.0); Platelet Count 163 k/uL (150-450); RBC 4.12 m/uL (4.30-5.90); RDW 14.7 % (11.5-15.5); WBC 8.7 k/uL (3.8-10.6)
[2019-01-01 07:08] LABS: Albumin 3.3 g/dL (3.5-5.0); Calcium 8.4 mg/dL (8.4-10.2); Potassium 4.1 mmol/L (3.5-5.1); Total Bilirubin 4.8 mg/dL (0.2-1.3)
[2019-01-01] MEDS ORDERED: PANTOPRAZOLE 40 MG/10 ML VIAL IV SCH (09:00)
[2019-01-01] MEDS: HEPARIN SODIUM,PORCINE 5,000 UNIT/ML 1 ML VIAL SQ SCH ×2 (10:54→21:19)
[2019-01-01] MEDS: CARBIDOPA-LEVODOPA 25-100 MG 1 EACH TAB PO SCH ×3 (10:54→21:19)
[2019-01-01] MEDS: metroNIDAZOLE 500 MG TAB PO SCH ×3 (10:54→21:19)
[2019-01-01] MEDS: CIPROFLOXACIN HCL 500 MG TAB PO SCH ×2 (10:55→21:18)
[2019-01-01 11:52] LABS: Glucose,Whole Blood 139 mg/dL (75-99)
[2019-01-01] MEDS: AMIODARONE 200 MG TAB PO SCH (13:54)
[2019-01-01] MEDS: SODIUM CHLORIDE 0.9% 1,000 ML IV SCH ×2 (14:04→23:54)
--- NOTE | 2019-01-01 15:14 | P.GSCN ---
History of Present Illness Consult date: 01/01/19 History of present illness: This is a 78-year-old male with multiple medical comorbidities as detailed in past medical history. He began experiencing midepigastric abdominal pain and presented to the hospital with fevers and pain. He states that the pain is sense improved. He denies any pain today. He's been afebrile overnight. He has a history of cholelithiasis. Past Medical History Past Medical History: Atrial Flutter, Cancer, Heart Failure, COPD, Diabetes Mellitus, Hypertension, Musculoskeletal Disorder, Neurologic Disorder, Thyroid Disorder Additional Past Medical History / Comment(s): PT ADMITTED ON 10/27/18 WITH BACTEREMIA D/T KLEBSIELLA PNE/TRANSAMINITIS/BILIARY SLUDGE PER US. OTHERHX: HX A-FLUTTER/TACHYCARDIA- TX W/ SAL/CARDIOVERSION, HAS BLADDER CA WITH SURGERY AND BLADDER INSTILLATION OF MED FOR BLADDER CANCER, IDC WITH UTI-REMOVED, IDDM TYPE II, BILATERAL CATARACTS, ABD HERNIA. PARKINSONS, DIVERTICULITIS, EDEMA FEET/LEGS, DDD lower spine, HYPOTHYROID, PNEUMONIA WITH SEPSIS, acute renal failure d/t acute tubular necrosis d/t sepsis, possible CKD. Last Myocardial Infarction Date:: UNK History of Any Multi-Drug Resistant Organisms: None Reported Past Surgical History: Adenoidectomy, Bladder Surgery, Tonsillectomy Additional Past Surgical History / Comment(s): 2013 CARDIOVERSION, SAL. BLADDER TUMOR REMOVED,cystoscopy with bladder CA TREATMENTS, colonoscopy Past Anesthesia/Blood Transfusion Reactions: Previous Problems w/ Anesthesia Additional Past Anesthesia/Blood Transfusion Reaction / Comm: HX CLAUSTROPHOBIA Smoking Status: Former smoker - Past Family History Father Family Medical History: Cancer Additional Family Medical History / Comment(s): Bone cancer. Mother Family Medical History: Coronary Artery Disease (CAD) Additional Family Medical History / Comment(s): Macular degeneration Sister(s) Family Medical History: Cancer Additional Family Medical History / Comment(s): breast CA Medications and Allergies Home Medications Medication Instructions Recorded Confirmed Type Albuterol Inhaler [Ventolin Hfa 2 puff INHALATION RT-Q4H PRN 03/15/14 12/31/18 History Inhaler] Amiodarone HCl 200 mg PO QAM 04/21/14 12/31/18 History Metoprolol Tartrate 25 mg PO BID 04/21/16 12/31/18 History Carbidopa-Levodopa 25-100 mg 2 tab PO TID 07/08/16 12/31/18 History [Sinemet 25-100 mg] Furosemide [Lasix] 40 mg PO BID 10/27/18 12/31/18 History Fluticasone Nasal [place] [Flonase 1 spray EA NOSTRIL DAILY 12/31/18 12/31/18 History Nasal [place]] Insulin Lispro Protamin/Lispro 65 unit SQ HS 12/31/18 12/31/18 History [humaLOG Mix 75-25 Kwikpen] Insulin Lispro Protamin/Lispro 75 unit SQ QAM 12/31/18 12/31/18 History [humaLOG Mix 75-25 Kwikpen] Levothyroxine Sodium [Synthroid] 88 mcg PO DIRECTED 12/31/18 12/31/18 History Lisinopril [Zestril] 40 mg PO DIRECTED 12/31/18 12/31/18 History Allergies Allergy/AdvReac Type Severity Reaction Status Date / Time aspirin Allergy Swelling Verified 12/31/18 08:25 NSAIDS (Non-Steroidal Allergy Swelling Verified 12/31/18 08:25 Anti-Inflamma Surgical - Exam Osteopathic Statement: *. No significant issues noted on an osteopathic structural exam other than those noted in the History and Physical/Consult. Vital Signs Temp Pulse Resp BP Pulse Ox 98.3 F 73 20 172/63 95 12/31/18 05:45 12/31/18 05:45 12/31/18 05:45 12/31/18 05:45 12/31/18 05:45 - General no distress - Neck trachea midline - Respiratory normal expansion, normal respiratory effort - Cardiovascular Rhythm: regular - Abdomen Abdomen: soft, non tender - Neurologic normal coordination, normal sensation - Psychiatric oriented to time, oriented to person, oriented to place Results - Labs 01/01/19 06:07 01/01/19 06:07 Abnormal Lab Results - Last 24 Hours (Table) 12/31/18 12/31/18 01/01/19 Range/Units 17:01 20:41 05:51 RBC (4.30-5.90) m/uL Hgb (13.0-17.5) gm/dL Hct (39.0-53.0) % BUN (9-20) mg/dL Creatinine (0.66-1.25) mg/dL POC Glucose (mg/dL) 351 H 311 H 121 H (75-99) mg/dL Total Bilirubin (0.2-1.3) mg/dL AST (17-59) U/L Alkaline Phosphatase (38-126) U/L Total Protein (6.3-8.2) g/dL Albumin (3.5-5.0) g/dL 01/01/19 01/01/19 01/01/19 Range/Units 06:07 06:07 11:44 RBC 4.12 L (4.30-5.90) m/uL Hgb 12.1 L (13.0-17.5) gm/dL Hct 37.6 L (39.0-53.0) % BUN 32 H (9-20) mg/dL Creatinine 1.58 H (0.66-1.25) mg/dL POC Glucose (mg/dL) 139 H (75-99) mg/dL Total Bilirubin 4.8 H (0.2-1.3) mg/dL AST 350 H (17-59) U/L Alkaline Phosphatase 260 H (38-126) U/L Total Protein 6.0 L (6.3-8.2) g/dL Albumin 3.3 L (3.5-5.0) g/dL Microbiology - Last 24 Hours (Table) 12/31/18 07:45 Blood Culture - Preliminary Blood No Growth after 24 hours Diabetes panel 01/01/19 Range/Units 06:07 Sodium 140 (137-145) mmol/L Potassium 4.1 (3.5-5.1) mmol/L Chloride 105 (98-107) mmol/L Carbon Dioxide 28 (22-30) mmol/L BUN 32 H (9-20) mg/dL Creatinine 1.58 H (0.66-1.25) mg/dL Glucose 99 (74-99) mg/dL Calcium 8.4 (8.4-10.2) mg/dL AST 350 H (17-59) U/L ALT 66 (21-72) U/L Alkaline Phosphatase 260 H (38-126) U/L Total Protein 6.0 L (6.3-8.2) g/dL Albumin 3.3 L (3.5-5.0) g/dL Calcium panel 01/01/19 Range/Units 06:07 Calcium 8.4 (8.4-10.2) mg/dL Albumin 3.3 L (3.5-5.0) g/dL Pituitary panel 01/01/19 Range/Units 06:07 Sodium 140 (137-145) mmol/L Potassium 4.1 (3.5-5.1) mmol/L Chloride 105 (98-107) mmol/L Carbon Dioxide 28 (22-30) mmol/L BUN 32 H (9-20) mg/dL Creatinine 1.58 H (0.66-1.25) mg/dL Glucose 99 (74-99) mg/dL Calcium 8.4 (8.4-10.2) mg/dL Adrenal panel 01/01/19 Range/Units 06:07 Sodium 140 (137-145) mmol/L Potassium 4.1 (3.5-5.1) mmol/L Chloride 105 (98-107) mmol/L Carbon Dioxide 28 (22-30) mmol/L BUN 32 H (9-20) mg/dL Creatinine 1.58 H (0.66-1.25) mg/dL Glucose 99 (74-99) mg/dL Calcium 8.4 (8.4-10.2) mg/dL Total Bilirubin 4.8 H (0.2-1.3) mg/dL AST 350 H (17-59) U/L ALT 66 (21-72) U/L Alkaline Phosphatase 260 H (38-126) U/L Total Protein 6.0 L (6.3-8.2) g/dL Albumin 3.3 L (3.5-5.0) g/dL Assessment and Plan Assessment: Choledocholithiasis Plan: Continue IV antibiotics. GI is evaluating for possible ERCP. No plans for surgical intervention until hyperbilirubinemia is resolved. Patient would likely benefit from cholecystectomy to prevent this from happening again in the future however he is a poor surgical candidate will follow up with cardiology and medicine recommendations.
--- NOTE | 2019-01-01 15:52 | P.PN ---
Subjective Progress Note Date: 01/01/19 Patient was seen and examined at the bedside. He notes that his abdominal pain is resolved and he has not had any further episodes of nausea or vomiting. He further denied diarrhea, fever, chills, chest pain, or shortness of breath. Objective - Vital Signs Vital signs: Vital Signs Temp 98.1 F 01/01/19 04:00 Pulse 67 01/01/19 12:00 Resp 16 01/01/19 12:00 BP 129/64 01/01/19 12:00 Pulse Ox 96 01/01/19 12:00 Intake & Output 12/31/18 01/01/19 01/01/19 18:59 06:59 18:59 Intake Total 300 480 Output Total 275 600 Balance 300 -275 -120 Weight 114.7 kg Intake: Amount of Fluid Infused ( 300 ml) Oral 480 Output: Urine 275 600 Other: Voiding Method Urinal Urinal Urinal # Voids 1 # Bowel Movements 1 - Exam General: Non-toxic, in no acute distress, appears stated age, obese HEENT: NC/AT, anicteric sclerae, moist conjunctiva, no lid-lag, PERRLA Cardiovascular: S1/S2 wnl, no murmurs, rubs, or gallops Lungs: Clear to auscultation, normal respiratory effort, no accessory muscle use Abdominal: Soft, non-tender, non-distended, no guarding, rebound, or rigidity Skin: Warm, dry Extremities: Chronic venous stasis changes bilateral lower extremities with dry flaking skin Psychiatric: Alert and oriented to person, place and time, appropriate affect Neuro: CN II-XII grossly intact, Strength 5/5 in all 4 extremities, Speech intact, Sensation to light touch grossly intact throughout - Labs CBC & Chem 7: 01/01/19 06:07 01/01/19 06:07 Labs: Abnormal Lab Results - Last 24 Hours (Table) 12/31/18 12/31/18 01/01/19 Range/Units 17:01 20:41 05:51 RBC (4.30-5.90) m/uL Hgb (13.0-17.5) gm/dL Hct (39.0-53.0) % BUN (9-20) mg/dL Creatinine (0.66-1.25) mg/dL POC Glucose (mg/dL) 351 H 311 H 121 H (75-99) mg/dL Total Bilirubin (0.2-1.3) mg/dL AST (17-59) U/L Alkaline Phosphatase (38-126) U/L Total Protein (6.3-8.2) g/dL Albumin (3.5-5.0) g/dL 01/01/19 01/01/19 01/01/19 Range/Units 06:07 06:07 11:44 RBC 4.12 L (4.30-5.90) m/uL Hgb 12.1 L (13.0-17.5) gm/dL Hct 37.6 L (39.0-53.0) % BUN 32 H (9-20) mg/dL Creatinine 1.58 H (0.66-1.25) mg/dL POC Glucose (mg/dL) 139 H (75-99) mg/dL Total Bilirubin 4.8 H (0.2-1.3) mg/dL AST 350 H (17-59) U/L Alkaline Phosphatase 260 H (38-126) U/L Total Protein 6.0 L (6.3-8.2) g/dL Albumin 3.3 L (3.5-5.0) g/dL Microbiology - Last 24 Hours (Table) 12/31/18 07:45 Blood Culture - Preliminary Blood No Growth after 24 hours Assessment and Plan Plan: Suspected cholangitis, sepsis resolved -C/w Ciprofloxacin and Flagyl -Surgery recommendations appreciated -GI consulted, recommendations pending -IVFs -Leukocytosis resolved -Continue to monitor LFTs DM -FS with VAISHALI -Taking 75-25 65 U qhs and 75 U qam -C/w 20 U of Levemir for now CKD stage 3 -At baseline HTN -Hold home meds in setting of sepsis -Resume as warranted Parkinson's -Resume home Sinemet CKD -Monitor BMP DVT//GI proph -Heparin -Protonix
[2019-01-01 16:52] LABS: Glucose,Whole Blood 157 mg/dL (75-99)
--- NOTE | 2019-01-01 20:34 | P.CONS ---
History of Present Illness - Reason for Consult Consult date: 01/01/19 Cholangitis Requesting physician: Shar Rosenbaum - Chief Complaint Abdominal pain, nausea and fever - History of Present Illness 78-year-old gentleman with a past medical history of cholangitis, bladder carcinoma status post resection in 2013 with subsequent bladder tumor removals as recently as few months ago, E. coli bacteremia July 2018, atrial flutter, morbid obesity, CHF, Parkinson's, diabetes, upper GI bleed, hypertension who presents to the hospital with complaints of abdominal pain, nausea and vomiting and fever. The patient was recently admitted for aspiration pneumonia and treated in October. He also has a remote history of cholangitis in 2014 for which she was treated medically due to a high risk for surgical intervention. On this admission the patient had reported 1 day of abdominal pain. He reports that it occurs suddenly and describes it as constant diffuse across his abdomen and cramping in nature. He also had associated nausea and vomiting with no reports of hematemesis or coffee-ground emesis. The patient was found to have elevation in his liver enzymes on presentation which have trended up with a bilirubin 2.9-4.8, alkaline phosphatase 227-260, AST 252-350 and ALT 53-66. The patient has had elevation in his liver enzymes in the past. Ultrasound of the abdomen performed showed a dilated common bile duct, hepatomegaly, and hepatic steatosis with sludge in a distended gallbladder. Review of Systems REVIEW OF SYSTEMS: CONSTITUTIONAL: Denies any change or fatigue, did report fever and chills prior to presentation. CARDIOVASCULAR: Denies any chest pain, palpitations high or low blood pressures RESPIRATORY: Denies any shortness of breath, hemoptysis or cough. GENITOURINARY: No dysuria or hematuria, but does report dark urine. MUSCULOSKELETAL: No weakness reported. SKIN: Denies any new rashes or lesions, or pallor, does report jaundice. PSYCHIATRIC: Denies any depression or anxiety. NEUROLOGY: Denies headache, denies any new focal deficits. EARS/NOSE/THROAT: No recent hearing change, congestion, nasal discharge or sore throat. EYES: No pain in eyes, discharge or change in vision. GASTROINTESTINAL: As per HPI. Past Medical History Past Medical History: Atrial Flutter, Cancer, Heart Failure, COPD, Diabetes Me llitus, Hypertension, Musculoskeletal Disorder, Neurologic Disorder, Thyroid Disorder Additional Past Medical History / Comment(s): PT ADMITTED ON 10/27/18 WITH BACTEREMIA D/T KLEBSIELLA PNE/TRANSAMINITIS/BILIARY SLUDGE PER US. OTHERHX: HX A-FLUTTER/TACHYCARDIA- TX W/ SAL/CARDIOVERSION, HAS BLADDER CA WITH SURGERY AND BLADDER INSTILLATION OF MED FOR BLADDER CANCER, IDC WITH UTI-REMOVED, IDDM TYPE II, BILATERAL CATARACTS, ABD HERNIA. PARKINSONS, DIVERTICULITIS, EDEMA FEET/LEGS, DDD lower spine, HYPOTHYROID, PNEUMONIA WITH SEPSIS, acute renal failure d/t acute tubular necrosis d/t sepsis, possible CKD. Last Myocardial Infarction Date:: UNK History of Any Multi-Drug Resistant Organisms: None Reported Past Surgical History: Adenoidectomy, Bladder Surgery, Tonsillectomy Additional Past Surgical History / Comment(s): 2013 CARDIOVERSION, SAL. BLADDER TUMOR REMOVED,cystoscopy with bladder CA TREATMENTS, colonoscopy Past Anesthesia/Blood Transfusion Reactions: Previous Problems w/ Anesthesia Additional Past Anesthesia/Blood Transfusion Reaction / Comm: HX CLAUSTROPHOBIA Smoking Status: Former smoker - Past Family History Father Family Medical History: Cancer Additional Family Medical History / Comment(s): Bone cancer. Mother Family Medical History: Coronary Artery Disease (CAD) Additional Family Medical History / Comment(s): Macular degeneration Sister(s) Family Medical History: Cancer Additional Family Medical History / Comment(s): breast CA Medications and Allergies Home Medications Medication Instructions Recorded Confirmed Type Albuterol Inhaler [Ventolin Hfa 2 puff INHALATION RT-Q4H PRN 03/15/14 12/31/18 History Inhaler] Amiodarone HCl 200 mg PO QAM 04/21/14 12/31/18 History Metoprolol Tartrate 25 mg PO BID 04/21/16 12/31/18 History Carbidopa-Levodopa 25-100 mg 2 tab PO TID 07/08/16 12/31/18 History [Sinemet 25-100 mg] Furosemide [Lasix] 40 mg PO BID 10/27/18 12/31/18 History Fluticasone Nasal [place] [Flonase 1 spray EA NOSTRIL DAILY 12/31/18 12/31/18 History Nasal [place]] Insulin Lispro Protamin/Lispro 65 unit SQ HS 12/31/18 12/31/18 History [humaLOG Mix 75-25 Kwikpen] Insulin Lispro Protamin/Lispro 75 unit SQ QAM 12/31/18 12/31/18 History [humaLOG Mix 75-25 Kwikpen] Levothyroxine Sodium [Synthroid] 88 mcg PO DIRECTED 12/31/18 12/31/18 History Lisinopril [Zestril] 40 mg PO DIRECTED 12/31/18 12/31/18 History Allergies Allergy/AdvReac Type Severity Reaction Status Date / Time aspirin Allergy Swelling Verified 12/31/18 08:25 NSAIDS (Non-Steroidal Allergy Swelling Verified 12/31/18 08:25 Anti-Inflamma Physical Exam Vitals: Vital Signs Temp Pulse Resp BP Pulse Ox 01/01/19 16:00 97.2 F L 68 17 135/71 94 L 01/01/19 12:00 67 16 129/64 96 01/01/19 08:00 73 16 124/59 94 L 01/01/19 04:00 98.1 F 70 18 157/67 95 01/01/19 00:00 98.6 F 68 18 118/57 93 L Intake and Output 01/01/19 01/01/19 01/01/19 06:59 14:59 22:59 Intake Total 480 120 Output Total 685 293 0195 Balance -275 -120 -1280 Intake: Oral 480 120 Output: Urine 556 121 2682 Other: Voiding Method Urinal Urinal Urinal # Voids 1 # Bowel Movements 1 Weight 114.7 kg On physical examination, patient appears comfortable in no apparent distress. HEAD: Normocephalic, atraumatic. EYES: Positive for scleral icterus. No conjunctival injection. MOUTH: No lesions, tongue midline. NECK: Trachea midline, no gross abnormalities. CHEST: Clear to auscultation with no wheezing or rhonchi appreciated. HEART: S1-S2 appreciated. ABDOMEN: Soft, obese. Bowel sounds are positive. No organomegaly. No guarding or rigidity. EXTREMITIES: No pedal edema. SKIN: No rashes, jaundice. NEUROLOGIC: Alert and oriented x3. Results CBC & Chem 7: 01/01/19 06:07 01/01/19 06:07 Labs: Abnormal Lab Results - Last 24 Hours (Table) 12/31/18 01/01/19 01/01/19 Range/Units 20:41 05:51 06:07 RBC 4.12 L (4.30-5.90) m/uL Hgb 12.1 L (13.0-17.5) gm/dL Hct 37.6 L (39.0-53.0) % BUN (9-20) mg/dL Creatinine (0.66-1.25) mg/dL POC Glucose (mg/dL) 311 H 121 H (75-99) mg/dL Total Bilirubin (0.2-1.3) mg/dL AST (17-59) U/L Alkaline Phosphatase (38-126) U/L Total Protein (6.3-8.2) g/dL Albumin (3.5-5.0) g/dL 01/01/19 01/01/19 01/01/19 Range/Units 06:07 11:44 16:50 RBC (4.30-5.90) m/uL Hgb (13.0-17.5) gm/dL Hct (39.0-53.0) % BUN 32 H (9-20) mg/dL Creatinine 1.58 H (0.66-1.25) mg/dL POC Glucose (mg/dL) 139 H 157 H (75-99) mg/dL Total Bilirubin 4.8 H (0.2-1.3) mg/dL AST 350 H (17-59) U/L Alkaline Phosphatase 260 H (38-126) U/L Total Protein 6.0 L (6.3-8.2) g/dL Albumin 3.3 L (3.5-5.0) g/dL Microbiology - Last 24 Hours (Table) 12/31/18 07:45 Blood Culture - Preliminary Blood No Growth after 24 hours US - abdomen: report reviewed (Ultrasound of the abdomen with findings of hepatomegaly, hepatic steatosis, dilated CBD, and a gallbladder filled with sludge and distended.) Assessment and Plan (1) Ascending cholangitis Narrative/Plan: Patient with a prior episode of ascending cholangitis 2014 with medical management at that time given multiple comorbidities. He presents back with abdominal pain, elevation in liver enzymes and findings on ultrasound imaging of a dilated CBD and a distended gallbladder with sludge noted. Currently improving on antibiotic therapy. Liver enzymes to trend higher today. Current Visit: Yes Status: Acute Code(s): K83.09 - OTHER CHOLANGITIS SNOMED Code(s): 66990226 (2) Biliary sludge determined by ultrasound Current Visit: No Status: Acute Code(s): K83.8 - OTHER SPECIFIED DISEASES OF BILIARY TRACT SNOMED Code(s): 09704941 Plan: Supportive care Okay for liquids Repeat liver enzymes in the morning Cardiology service to evaluate with consideration for possible ERCP for treatment of cholangitis versus continued medical management with antibiotic therapy if patient is deemed too high risk Continue antibiotic therapy with ciprofloxacin and Flagyl Continue to monitor CBC, BMP and vitals Further recommendations pending clinical course Thank you for allowing us to participate in the care of the patient we will continue to follow
[2019-01-01 21:02] LABS: Glucose,Whole Blood 208 mg/dL (75-99)
[2019-01-01] MEDS: INSULIN DETEMIR (LEVEMIR) 100 UNIT/ML SYR SQ SCH (21:19)
[2019-01-02] MEDS: SODIUM CHLORIDE 0.9% 1,000 ML IV SCH (03:30)
[2019-01-02 06:06] LABS: Glucose,Whole Blood 84 mg/dL (75-99)
[2019-01-02] MEDS: INSULIN ASPART (NovoLOG) 100 UNIT/ML VIAL SQ SCH ×4 (06:11→20:56)
[2019-01-02] MEDS: PANTOPRAZOLE 40 MG TABLET PO SCH (06:50)
[2019-01-02] MEDS: LEVOTHYROXINE 88 MCG TAB PO SCH (06:50)
[2019-01-02 06:55] LABS: HGB 11.7 gm/dL (13.0-17.5); MCH 29.6 pg (25.0-35.0); MCHC 32.6 g/dL (31.0-37.0); MCV 90.7 fL (80.0-100.0); Mean Platelet Volume 8.3; Platelet Count 149 k/uL (150-450); RBC 3.97 m/uL (4.30-5.90); RDW 14.5 % (11.5-15.5); WBC 5.3 k/uL (3.8-10.6)
[2019-01-02 07:03] LABS: Bilirubin, Conjugated 0.1 mg/dL (0.0-0.3); Bilirubin, Delta 1.2 mg/dL (0.0-0.2); Calcium 8.5 mg/dL (8.4-10.2); Total Bilirubin 2.3 mg/dL (0.2-1.3); Total Protein 5.5 g/dL (6.3-8.2)
[2019-01-02] MEDS: CARBIDOPA-LEVODOPA 25-100 MG 1 EACH TAB PO SCH ×3 (10:41→21:03)
[2019-01-02] MEDS: METOPROLOL TARTRATE 25 MG TAB PO SCH ×2 (10:42→22:19)
[2019-01-02] MEDS: CIPROFLOXACIN HCL 500 MG TAB PO SCH ×2 (10:42→21:03)
[2019-01-02] MEDS: metroNIDAZOLE 500 MG TAB PO SCH ×3 (10:42→21:03)
[2019-01-02] MEDS: HEPARIN SODIUM,PORCINE 5,000 UNIT/ML 1 ML VIAL SQ SCH ×2 (10:43→21:02)
[2019-01-02] MEDS: AMIODARONE 200 MG TAB PO SCH (10:47)
[2019-01-02 11:39] LABS: Glucose,Whole Blood 147 mg/dL (75-99)
--- NOTE | 2019-01-02 12:46 | P.PN ---
Subjective Progress Note Date: 01/02/19 Patient is feeling better today, tolerating fulls, Denies abdominal pain Objective - Vital Signs Vital signs: Vital Signs Temp 97.4 F L 01/02/19 08:10 Pulse 59 L 01/02/19 08:10 Resp 16 01/02/19 08:10 BP 147/69 01/02/19 08:10 Pulse Ox 95 01/02/19 08:10 Intake & Output 01/01/19 01/02/19 01/02/19 18:59 06:59 18:59 Intake Total 600 360 Output Total 2000 400 1000 Balance -1400 -400 -640 Weight 113.9 kg Intake: Oral 600 360 Output: Urine 1999 400 1000 Other: Voiding Method Urinal Urinal Urinal # Voids 1 1 - Constitutional General appearance: Present: cooperative - Respiratory Details: nonlabored - Cardiovascular Rhythm: regular - Gastrointestinal Gastrointestinal Comment(s): S/NT/ND - Psychiatric Psychiatric: Present: A&O x's 3 - Labs CBC & Chem 7: 01/02/19 06:07 01/02/19 06:07 Labs: Abnormal Lab Results - Last 24 Hours (Table) 01/01/19 01/01/19 01/02/19 Range/Units 16:50 20:57 06:07 RBC 3.97 L (4.30-5.90) m/uL Hgb 11.7 L (13.0-17.5) gm/dL Hct 36.0 L (39.0-53.0) % Plt Count 149 L (150-450) k/uL Chloride (98-107) mmol/L BUN (9-20) mg/dL Creatinine (0.66-1.25) mg/dL POC Glucose (mg/dL) 157 H 208 H (75-99) mg/dL Total Bilirubin (0.2-1.3) mg/dL Delta Bilirubin (0.0-0.2) mg/dL AST (17-59) U/L Alkaline Phosphatase (38-126) U/L Total Protein (6.3-8.2) g/dL Albumin (3.5-5.0) g/dL 01/02/19 01/02/19 Range/Units 06:07 11:37 RBC (4.30-5.90) m/uL Hgb (13.0-17.5) gm/dL Hct (39.0-53.0) % Plt Count (150-450) k/uL Chloride 110 H (98-107) mmol/L BUN 21 H (9-20) mg/dL Creatinine 1.26 H (0.66-1.25) mg/dL POC Glucose (mg/dL) 147 H (75-99) mg/dL Total Bilirubin 2.3 H (0.2-1.3) mg/dL Delta Bilirubin 1.2 H (0.0-0.2) mg/dL AST 128 H (17-59) U/L Alkaline Phosphatase 265 H (38-126) U/L Total Protein 5.5 L (6.3-8.2) g/dL Albumin 3.0 L (3.5-5.0) g/dL Microbiology - Last 24 Hours (Table) 12/31/18 07:45 Blood Culture - Preliminary Blood No Growth after 48 hours Assessment and Plan Assessment: Choledocholithiasis Plan: Continue IV antibiotics. GI is evaluating for possible ERCP. No plans for surgical intervention until hyperbilirubinemia is resolved. Patient would likely benefit from cholecystectomy to prevent this from happening again in the future however he is a poor surgical candidate will follow up with cardiology and medicine recommendations.
--- NOTE | 2019-01-02 14:16 | P.PN ---
Subjective Progress Note Date: 01/02/19 Patient was seen and examined at the bedside on 01/02/19. He notes that his abdominal pain has resolved and he hasn't had any additional episodes and also denied any additional episodes of vomiting. Patient further denied fever, chills, nausea, vomiting, chest pain, or shortness of breath. Objective - Vital Signs Vital signs: Vital Signs Temp 97.4 F L 01/02/19 08:10 Pulse 59 L 01/02/19 08:10 Resp 16 01/02/19 08:10 BP 147/69 01/02/19 08:10 Pulse Ox 95 01/02/19 08:10 Intake & Output 01/01/19 01/02/19 01/02/19 18:59 06:59 18:59 Intake Total 600 960 Output Total 2000 400 1000 Balance -1400 -400 -40 Weight 113.9 kg Intake: Oral 600 960 Output: Urine 1999 400 1000 Other: Voiding Method Urinal Urinal Urinal # Voids 1 1 - Exam General: Non-toxic, in no acute distress, appears stated age, obese HEENT: NC/AT, anicteric sclerae, moist conjunctiva, no lid-lag, PERRLA Cardiovascular: S1/S2 wnl, no murmurs, rubs, or gallops Lungs: Clear to auscultation, normal respiratory effort, no accessory muscle use Abdominal: Soft, non-tender, non-distended, no guarding, rebound, or rigidity Skin: Warm, dry Extremities: Chronic venous stasis changes bilateral lower extremities Psychiatric: Alert and oriented to person, place and time, appropriate affect Neuro: CN II-XII grossly intact, Strength 5/5 in all 4 extremities, Speech intact, Sensation to light touch grossly intact throughout - Labs CBC & Chem 7: 01/02/19 06:07 01/02/19 06:07 Labs: Abnormal Lab Results - Last 24 Hours (Table) 01/01/19 01/01/19 01/02/19 Range/Units 16:50 20:57 06:07 RBC 3.97 L (4.30-5.90) m/uL Hgb 11.7 L (13.0-17.5) gm/dL Hct 36.0 L (39.0-53.0) % Plt Count 149 L (150-450) k/uL Chloride (98-107) mmol/L BUN (9-20) mg/dL Creatinine (0.66-1.25) mg/dL POC Glucose (mg/dL) 157 H 208 H (75-99) mg/dL Total Bilirubin (0.2-1.3) mg/dL Delta Bilirubin (0.0-0.2) mg/dL AST (17-59) U/L Alkaline Phosphatase (38-126) U/L Total Protein (6.3-8.2) g/dL Albumin (3.5-5.0) g/dL 01/02/19 01/02/19 Range/Units 06:07 11:37 RBC (4.30-5.90) m/uL Hgb (13.0-17.5) gm/dL Hct (39.0-53.0) % Plt Count (150-450) k/uL Chloride 110 H (98-107) mmol/L BUN 21 H (9-20) mg/dL Creatinine 1.26 H (0.66-1.25) mg/dL POC Glucose (mg/dL) 147 H (75-99) mg/dL Total Bilirubin 2.3 H (0.2-1.3) mg/dL Delta Bilirubin 1.2 H (0.0-0.2) mg/dL AST 128 H (17-59) U/L Alkaline Phosphatase 265 H (38-126) U/L Total Protein 5.5 L (6.3-8.2) g/dL Albumin 3.0 L (3.5-5.0) g/dL Microbiology - Last 24 Hours (Table) 12/31/18 07:45 Blood Culture - Preliminary Blood No Growth after 48 hours Assessment and Plan Plan: Suspected cholangitis, sepsis resolved -C/w Ciprofloxacin and Flagyl -Surgery recommendations appreciated -GI recommendations appreciated, cardiology consulted for clearance for possible ERCP -IVFs -Leukocytosis resolved -Continue to monitor LFTs DM -FS with VAISHALI -Taking 75-25 65 U qhs and 75 U qam -C/w 20 U of Levemir for now CKD stage 3 -At baseline HTN -Resume antihypertensives Parkinson's -Resume home Sinemet CKD -Monitor BMP DVT//GI proph -Heparin -Protonix
[2019-01-02] MEDS: LISINOPRIL 20 MG TAB PO SCH (15:41)
[2019-01-02 16:36] LABS: Glucose,Whole Blood 179 mg/dL (75-99)
--- NOTE | 2019-01-02 17:09 | P.PN ---
Subjective Progress Note Date: 01/02/19 Principal diagnosis: Elevated liver enzymes, suspected cholangitis Patient seen sitting bedside. No nausea, vomiting or pain reported. Tolerating full liquid diet. Objective - Vital Signs Vital signs: Vital Signs Temp 97.9 F 01/02/19 12:00 Pulse 52 L 01/02/19 12:00 Resp 18 01/02/19 12:00 BP 176/73 01/02/19 12:00 Pulse Ox 95 01/02/19 12:00 Intake & Output 01/01/19 01/02/19 01/02/19 18:59 06:59 18:59 Intake Total 600 960 Output Total 2000 400 1000 Balance -1400 -400 -40 Weight 113.9 kg Intake: Oral 600 960 Output: Urine 2000 400 1000 Other: Voiding Method Urinal Urinal Urinal # Voids 1 1 - Exam On physical examination, patient appears comfortable in no apparent distress. HEAD: Normocephalic, atraumatic. EYES: No scleral icterus. No conjunctival injection. MOUTH: No lesions, tongue midline. NECK: Trachea midline, no gross abnormalities. ABDOMEN: Soft, obese. Bowel sounds are positive. No organomegaly. No guarding or rigidity. EXTREMITIES: Bilateral pedal edema noted. SKIN: No rashes, no jaundice. NEUROLOGIC: Alert and oriented x3. No focal deficits. - Labs CBC & Chem 7: 01/02/19 06:07 01/02/19 06:07 Labs: Abnormal Lab Results - Last 24 Hours (Table) 01/01/19 01/02/19 01/02/19 Range/Units 20:57 06:07 06:07 RBC 3.97 L (4.30-5.90) m/uL Hgb 11.7 L (13.0-17.5) gm/dL Hct 36.0 L (39.0-53.0) % Plt Count 149 L (150-450) k/uL Chloride 110 H (98-107) mmol/L BUN 21 H (9-20) mg/dL Creatinine 1.26 H (0.66-1.25) mg/dL POC Glucose (mg/dL) 208 H (75-99) mg/dL Total Bilirubin 2.3 H (0.2-1.3) mg/dL Delta Bilirubin 1.2 H (0.0-0.2) mg/dL AST 128 H (17-59) U/L Alkaline Phosphatase 265 H (38-126) U/L Total Protein 5.5 L (6.3-8.2) g/dL Albumin 3.0 L (3.5-5.0) g/dL 01/02/19 01/02/19 Range/Units 11:37 16:34 RBC (4.30-5.90) m/uL Hgb (13.0-17.5) gm/dL Hct (39.0-53.0) % Plt Count (150-450) k/uL Chloride (98-107) mmol/L BUN (9-20) mg/dL Creatinine (0.66-1.25) mg/dL POC Glucose (mg/dL) 147 H 179 H (75-99) mg/dL Total Bilirubin (0.2-1.3) mg/dL Delta Bilirubin (0.0-0.2) mg/dL AST (17-59) U/L Alkaline Phosphatase (38-126) U/L Total Protein (6.3-8.2) g/dL Albumin (3.5-5.0) g/dL Microbiology - Last 24 Hours (Table) 12/31/18 07:45 Blood Culture - Preliminary Blood No Growth after 48 hours Assessment and Plan (1) Ascending cholangitis Narrative/Plan: Patient with a prior episode of ascending cholangitis 2015 with medical shilpi harmon at that time given multiple comorbidities. He presents back with abdominal pain, elevation in liver enzymes and findings on ultrasound imaging of a dilated CBD and a distended gallbladder with sludge noted. Currently improving on antibiotic therapy. Liver enzymes improved today. Current Visit: Yes Status: Acute Code(s): K83.09 - OTHER CHOLANGITIS SNOMED Code(s): 70687144 (2) Biliary sludge determined by ultrasound Current Visit: No Status: Acute Code(s): K83.8 - OTHER SPECIFIED DISEASES OF BILIARY TRACT SNOMED Code(s): 69366831 Plan: Supportive care Okay for full liquids Repeat liver enzymes in the morning Cardiology service to evaluate with consideration for possible ERCP for treatment of cholangitis versus continued medical management with antibiotic therapy if patient is deemed too high risk Continue antibiotic therapy with ciprofloxacin and Flagyl Continue to monitor CBC, BMP and vitals Further recommendations pending clinical course Thank you for allowing us to participate in the care of the patient we will c ketan to follow
--- NOTE | 2019-01-02 18:46 | CONS ---
CONSULTATION This is a 78-year-old gentleman who has history of hypertension, type 2 diabetes, Parkinsonism, paroxysmal atrial fibrillation, who used to see Dr. Yu Hinson in the past. He has not made or kept his appointments and has not seen him according to the patient and for at least a year and a half or more. However, patient was on anticoagulation, but apparently his primary care physician in the [facility] has advised him that he does not need to be on Coumadin. The patient is not very active. He is very sedentary, does not do much activity. He has underlying Parkinson disease and takes Sinemet. He came into the emergency room with complaints of abdominal discomfort, nausea and also having some nonbilious emesis. He had a right upper quadrant pain and further workup revealed that he has probably an acute cholecystitis type picture with a fever of 101degrees Fahrenheit. Patient is being considered for a laparoscopic cholecystectomy and I was asked to see him from a preop evaluation. The patient and his are not good historians, but on reviewing the chart, it appears that he has history of paroxysmal atrial fibrillation. In the past, he underwent a transesophageal echo and then went on to have a cardioversion and prior to the cardioversion the SAL in March 2014 revealed poor LV function, but after cardioversion, a repeat echo a year later revealed improved ejection fraction in the 50- 55 percent range. The patient has not been taking any anticoagulants. I am not sure he is very compliant with medications. At the time of my evaluation, he has some right upper quadrant discomfort, but this has improved a lot. He denies any chest pain. His activity is limited with limited activity. He has no chest pain or shortness of breath or palpitations. PAST MEDICAL HISTORY: 1. Paroxysmal atrial fib. 2. Parkinsonism. 3. Obesity. 4. Hypertension. 5. Type 2 diabetes mellitus. MEDICATIONS: At home include metoprolol tartrate 25 mg b.i.d., lisinopril 40 mg daily, amiodarone 200 mg daily, Sinemet 25/100 1 tab t.i.d. and he takes insulin and also Synthroid 88 mcg daily. ALLERGIES: ASPIRIN AND NONSTEROIDAL ANTI-INFLAMMATORY AGENTS. PHYSICAL EXAMINATION: Blood pressure is 140/70, pulse rate is 60 per minute. HEENT unremarkable. Fundus was not examined by me. NECK: Supple. There is JVD of 1 cm. No carotid bruit. Heart exam reveals S1, S2 heard normally. Distant heart sounds. Lungs reveal diminished air entry. Abdomen is soft. Mild tenderness right upper quadrant. Lower extremities reveal diminished pulses. There is bilateral 1+ edema. Central nervous system grossly no focal deficits. IMPRESSION: 1. Probable acute cholecystitis going for surgery. 2. History of paroxysmal atrial fibrillation. 3. Hypertension. 4. Type 2 diabetes mellitus. RECOMMENDATION: I am recommending an echocardiogram to be performed. EKG was just done and revealed a sinus mechanism without any acute changes. I am recommending an echocardiogram and we will add a beta viviana 25 mg of metoprolol b.i.d. Continue his other medications as before and based on the echocardiogram, I will make further recommendations. We have not assessed the patient for any CAD, but his activity is limited. He remains at a high risk for surgery given his multiple comorbid conditions, but I do not see an absolute contraindication. We will add a beta viviana, check LV function by echo and then clear him for surgery based on this information. Thank you very much for the consult. MMODL / IJN: [id number] /
[2019-01-02 20:17] LABS: Glucose,Whole Blood 186 mg/dL (75-99)
[2019-01-02] MEDS: INSULIN DETEMIR (LEVEMIR) 100 UNIT/ML SYR SQ SCH (20:56)
[2019-01-03] MEDS: SODIUM CHLORIDE 0.9% 1,000 ML IV SCH ×2 (03:23→22:31)
[2019-01-03 05:52] LABS: Glucose,Whole Blood 95 mg/dL (75-99)
[2019-01-03] MEDS: INSULIN ASPART (NovoLOG) 100 UNIT/ML VIAL SQ SCH ×4 (05:56→21:59)
[2019-01-03] MEDS: LEVOTHYROXINE 88 MCG TAB PO SCH (07:04)
[2019-01-03] MEDS: PANTOPRAZOLE 40 MG TABLET PO SCH (07:04)
[2019-01-03 07:39] LABS: Albumin 3.4 g/dL (3.5-5.0); Calcium 8.5 mg/dL (8.4-10.2); Magnesium 1.6 mg/dL (1.6-2.3); Potassium 4.2 mmol/L (3.5-5.1); Total Bilirubin 3.7 mg/dL (0.2-1.3); Total Protein 6.3 g/dL (6.3-8.2)
[2019-01-03 07:51] LABS: HCT 39.9 % (39.0-53.0); HGB 12.6 gm/dL (13.0-17.5); MCH 29.1 pg (25.0-35.0); MCHC 31.5 g/dL (31.0-37.0); MCV 92.5 fL (80.0-100.0); Mean Platelet Volume 9.4; Platelet Count 178 k/uL (150-450); RBC 4.32 m/uL (4.30-5.90); RDW 14.8 % (11.5-15.5); WBC 5.8 k/uL (3.8-10.6)
[2019-01-03] MEDS: CARBIDOPA-LEVODOPA 25-100 MG 1 EACH TAB PO SCH ×3 (09:47→21:58)
[2019-01-03] MEDS: CIPROFLOXACIN HCL 500 MG TAB PO SCH ×2 (09:47→22:31)
[2019-01-03] MEDS: LISINOPRIL 20 MG TAB PO SCH (09:47)
[2019-01-03] MEDS: METOPROLOL TARTRATE 25 MG TAB PO SCH ×2 (09:48→21:58)
[2019-01-03] MEDS: HEPARIN SODIUM,PORCINE 5,000 UNIT/ML 1 ML VIAL SQ SCH ×2 (09:48→21:58)
[2019-01-03] MEDS: metroNIDAZOLE 500 MG TAB PO SCH ×3 (09:48→21:58)
[2019-01-03 11:56] LABS: Glucose,Whole Blood 167 mg/dL (75-99)
--- NOTE | 2019-01-03 12:25 | ECHOF ---
Referral Reason:cardiac clear for surgery MEASUREMENTS -------- HEIGHT: 175.3 cm WEIGHT: 113.9 kg BP: RVIDd: 3.4 cm (< 3.3) IVSd: 1.5 cm (0.6 - 1.1) LVIDd: 5.1 cm (3.9 - 5.3) LVPWd: 1.1 cm (0.6 - 1.1) IVSs: 1.6 cm LVIDs: 4.3 cm LVPWs: 1.4 cm LA Diam: 5.0 cm (2.7 - 3.8) LAESV Index (A-L): 39.51 ml/m Ao Diam: 3.3 cm (2.0 - 3.7) AV Cusp: 1.4 cm (1.5 - 2.6) LA Diam: 3.9 cm (2.7 - 3.8) MV EXCURSION: 19.523 mm (> 18.000) MV EF SLOPE: 72 mm/s (70 - 150) EPSS: 0.6 cm MV E Ron: 0.68 m/s MV DecT: 134 ms MV A Ron: 0.87 m/s MV E/A Ratio: 0.78 FINDINGS -------- Sinus rhythm. This was a technically adequate study. The left ventricular size is normal. There is mild concentric left ventricular hypertrophy. Overa ll left ventricular systolic function is normal with, an EF between 55 - 60 %. The right ventricle is normal in size. The left atrial size is normal. LA is moderately dilated 34-39 ml/m2 The right atrial size is normal. There is mild aortic valve sclerosis. Mild mitral annular calcification present. There is trace mitral regurgitation. Unable to estimate RVSP due to inadequate TR jet spectral doppler profile. There is no pulmonic regurgitation present. The aortic root size is normal. There is no pericardial effusion. CONCLUSIONS -------- 1. The left ventricular size is normal. 2. There is mild concentric left ventricular hypertrophy. 3. Overall left ventricular systolic function is normal with, an EF between 55 - 60 %. 4. The right ventricle is normal in size. 5. The left atrial size is normal. 6. LA is moderately dilated 34-39 ml/m2 7. The right atrial size is normal. 8. There is mild aortic valve sclerosis. 9. Mild mitral annular calcification present. 10. There is trace mitral regurgitation. 11. Unable to estimate RVSP due to inadequate TR jet spectral doppler profile. 12. There is no pulmonic regurgitation present. 13. The aortic root size is normal. 14. There is no pericardial effusion. SURGICAL ATTENDANT: Tanisha Cisneros RDCS
[2019-01-03 17:18] LABS: Glucose,Whole Blood 160 mg/dL (75-99)
--- NOTE | 2019-01-03 17:45 | P.PN ---
Subjective Progress Note Date: 01/03/19 Patient is a 78-year-old male with a PMH of hypertension, diabetes mellitus, and Parkinson's disease presented to the ED for abdominal pain, nausea, vomiting, and fever at home earlier on the day of presentation. The patient notes that his symptoms started suddenly that morning. He had cramping, 8 out of 10, constant diffuse abdominal pain, nonradiating, with no alleviating or exacerbating features, along with nausea and multiple episodes of nonbloody nonbilious emesis. The patient reports that after vomiting, abdominal pain improved significantly. Of note, the patient was previously admitted to [facility] on 10/27/2018 for aspiration pneumonia at which time he had complained of abdominal pain and was found to have deranged LFTs. Right upper quadrant ultrasound at that time and showed possible cholecystitis and Gen. surgery was consulted and recommended no surgical intervention with possible scheduled outpatient cholecystectomy. The patient underwent a comprehensive workup in the emergency room, with WBC count 12, hemoglobin 13, creatinine 1.81, lactate acid 2.2, and glucose 452. RUQ US in the ED revealed biliary sludge and the patient was febrile to 101 degrees. the patient was subsequently admitted to the medicine service for suspected cholangitis. GI service was consulted and recommended an ERCP pending clearance by cardiology. The cardiology service and ordered an echocardiogram which revealed left ventricular systolic ejection fraction between 55 and 60%. The patient was seen and examined at the bedside on 01/03/2019. He reports no additional episodes of abdominal pain, fever, chills, nausea, or vomiting. He hasn't had any subsequent symptoms since his first day of admission. He was in good spirits and denied any additional complaint. Objective - Vital Signs Vital signs: Vital Signs Temp 97.6 F 01/03/19 15:14 Pulse 105 H 01/03/19 15:14 Resp 18 01/03/19 15:14 BP 177/72 01/03/19 15:14 Pulse Ox 100 01/03/19 15:14 Intake & Output 01/02/19 01/03/19 01/03/19 18:59 06:59 18:59 Intake Total 5052 643 6776 Output Total 1175 550 300 Balance 25 50 1120 Weight 114.8 kg Intake: Intake, IV Titration 600 640 Amount Sodium Chloride 0.9% 1, 600 640 000 ml @ 75 mls/hr IV . [id number] [facility] Rx#:[id number] Oral 1200 780 Output: Urine 1175 550 300 Other: Voiding Method Urinal Urinal Urinal # Voids 1 - Exam General: Non-toxic, in no acute distress, appears stated age, obese HEENT: NC/AT, anicteric sclerae, moist conjunctiva, no lid-lag, PERRLA Cardiovascular: S1/S2 wnl, no murmurs, rubs, or gallops Lungs: Clear to auscultation, normal respiratory effort, no accessory muscle use Abdominal: Soft, non-tender, non-distended, no guarding, rebound, or rigidity Skin: Warm, dry Extremities: Chronic venous stasis changes bilateral lower extremities Psychiatric: Alert and oriented to person, place and time, appropriate affect Neuro: CN II-XII grossly intact, Strength 5/5 in all 4 extremities, Speech intact, Sensation to light touch grossly intact throughout - Labs CBC & Chem 7: 01/03/19 06:56 01/03/19 06:56 Labs: Abnormal Lab Results - Last 24 Hours (Table) 01/02/19 01/03/19 01/03/19 Range/Units 20:16 06:56 06:56 Hgb 12.6 L (13.0-17.5) gm/dL Chloride 108 H (98-107) mmol/L POC Glucose (mg/dL) 186 H (75-99) mg/dL Total Bilirubin 3.7 H (0.2-1.3) mg/dL AST 113 H (17-59) U/L Alkaline Phosphatase 327 H (38-126) U/L Albumin 3.4 L (3.5-5.0) g/dL 01/03/19 01/03/19 Range/Units 11:55 17:16 Hgb (13.0-17.5) gm/dL Chloride (98-107) mmol/L POC Glucose (mg/dL) 167 H 160 H (75-99) mg/dL Total Bilirubin (0.2-1.3) mg/dL AST (17-59) U/L Alkaline Phosphatase (38-126) U/L Albumin (3.5-5.0) g/dL Microbiology - Last 24 Hours (Table) 12/31/18 07:45 Blood Culture - Preliminary Blood No Growth after 72 hours Assessment and Plan Plan: Suspected cholangitis, sepsis resolved -C/w Ciprofloxacin and Flagyl -Surgery recommendations appreciated -GI recommendations appreciated, cardiology consulted for clearance for possible ERCP -IVFs -Leukocytosis resolved -Continue to monitor LFTs -Echo cardiac unremarkable, awaiting cardiology clearance DM -FS with VAISHALI -Taking 75-25 65 U qhs and 75 U qam -C/w 20 U of Levemir for now CKD stage 3 -At baseline HTN -Resume antihypertensives Parkinson's -Resume home Sinemet CKD -Monitor BMP DVT//GI proph -Heparin -Protonix
[2019-01-03 21:00] LABS: Glucose,Whole Blood 167 mg/dL (75-99)
--- NOTE | 2019-01-03 21:32 | PN ---
PROGRESS NOTE This is a gentleman with parkinsonism, paroxysmal atrial fibrillation, hypertension, hyperlipidemia, who came in with right upper quadrant pain and has cholecystitis, which seems to have settled down. His vitals are stable. S1, S2 heard normally. Short systolic murmur noted. Lungs reveal improved air entry. Abdomen is soft. There is less tenderness. Rest of physical exam unchanged. The patient is going to have an echocardiogram. He will be moved to the fourth floor. He will be an increased risk candidate for any non-cardiac surgery, and this was explained to the patient. I also talked to Dr. Davis. Prognosis remains guarded. MMODL / IJN: [id number] /
--- NOTE | 2019-01-03 21:53 | P.PN ---
Subjective Progress Note Date: 01/03/19 Principal diagnosis: Elevated liver enzymes, suspected cholangitis Patient seen sitting bedside. Patient reports feeling better overall. No abdominal pain reported. Tolerating full liquid diet. Objective - Vital Signs Vital signs: Vital Signs Temp 97.4 F L 01/03/19 21:00 Pulse 51 L 01/03/19 21:00 Resp 18 01/03/19 21:00 BP 186/71 01/03/19 21:00 Pulse Ox 98 01/03/19 21:00 Intake & Output 01/03/19 01/03/19 01/04/19 06:59 18:59 06:59 Intake Total 600 1420 Output Total 550 300 Balance 50 1120 Weight 114.8 kg Intake: Intake, IV Titration 600 640 Amount Sodium Chloride 0.9% 1, 600 640 000 ml @ 75 mls/hr IV . [id number] [facility] Rx#:[id number] Oral 780 Output: Urine 550 300 Other: Voiding Method Urinal Urinal # Voids 1 - Exam On physical examination, patient appears comfortable in no apparent distress. HEAD: Normocephalic, atraumatic. EYES: No scleral icterus. No conjunctival injection. MOUTH: No lesions, tongue midline. NECK: Trachea midline, no gross abnormalities. ABDOMEN: Soft, obese. Bowel sounds are positive. No organomegaly. No guarding or rigidity. EXTREMITIES: Bilateral pedal edema noted. SKIN: No rashes, no jaundice. NEUROLOGIC: Alert and oriented x3. No focal deficits. - Labs CBC & Chem 7: 01/03/19 06:56 01/03/19 06:56 Labs: Abnormal Lab Results - Last 24 Hours (Table) 01/03/19 01/03/19 01/03/19 Range/Units 06:56 06:56 11:55 Hgb 12.6 L (13.0-17.5) gm/dL Chloride 108 H (98-107) mmol/L POC Glucose (mg/dL) 167 H (75-99) mg/dL Total Bilirubin 3.7 H (0.2-1.3) mg/dL AST 113 H (17-59) U/L Alkaline Phosphatase 327 H (38-126) U/L Albumin 3.4 L (3.5-5.0) g/dL 01/03/19 01/03/19 Range/Units 17:16 20:58 Hgb (13.0-17.5) gm/dL Chloride (98-107) mmol/L POC Glucose (mg/dL) 160 H 167 H (75-99) mg/dL Total Bilirubin (0.2-1.3) mg/dL AST (17-59) U/L Alkaline Phosphatase (38-126) U/L Albumin (3.5-5.0) g/dL Microbiology - Last 24 Hours (Table) 12/31/18 07:45 Blood Culture - Preliminary Blood No Growth after 72 hours Assessment and Plan (1) Ascending cholangitis Narrative/Plan: Patient with a prior episode of ascending cholangitis 2014 with medical management at that time given multiple comorbidities. He presents back with abdominal pain, elevation in liver enzymes and findings on ultrasound imaging of a dilated CBD and a distended gallbladder with sludge noted. Currently improving on antibiotic therapy. Liver enzymes improved today. Current Visit: Yes Status: Acute Code(s): K83.09 - OTHER CHOLANGITIS SNOMED Code(s): 17725327 (2) Biliary sludge determined by ultrasound Current Visit: No Status: Acute Code(s): K83.8 - OTHER SPECIFIED DISEASES OF BILIARY TRACT SNOMED Code(s): 23735041 Plan: Supportive care Okay for full liquids Repeat liver enzymes in the morning Continue antibiotic therapy with ciprofloxacin and Flagyl Continue to monitor CBC, BMP and vitals Plan for ERCP tomorrow Thank you for allowing us to participate in the care of the patient we will continue to follow
[2019-01-03] MEDS: INSULIN DETEMIR (LEVEMIR) 100 UNIT/ML SYR SQ SCH (21:59)
[2019-01-04] MEDS: SODIUM CHLORIDE 0.9% 1,000 ML IV SCH ×3 (04:53→17:25)
[2019-01-04 06:55] LABS: Glucose,Whole Blood 101 mg/dL (75-99)
[2019-01-04] MEDS: INSULIN ASPART (NovoLOG) 100 UNIT/ML VIAL SQ SCH ×4 (07:53→21:40)
[2019-01-04] MEDS: HEPARIN SODIUM,PORCINE 5,000 UNIT/ML 1 ML VIAL SQ SCH ×2 (08:30→22:30)
[2019-01-04] MEDS: LEVOTHYROXINE 88 MCG TAB PO SCH (08:31)
[2019-01-04 08:54] LABS: Prothrombin Time 10.4 sec (9.0-12.0)
[2019-01-04 08:55] LABS: Basophils % (A) 1 %; Eosinophils # (A) 0.3 k/uL (0-0.7); Eosinophils % (A) 5 %; HGB 12.8 gm/dL (13.0-17.5); Lymphocytes # (A) 1.7 k/uL (1.0-4.8); Lymphocytes % (A) 35 %; MCH 29.4 pg (25.0-35.0); MCHC 31.9 g/dL (31.0-37.0); MCV 91.9 fL (80.0-100.0); Mean Platelet Volume 9.1; Monocytes # (A) 0.3 k/uL (0-1.0); Monocytes % (A) 6 %; Neutrophils # (A) 2.6 k/uL (1.3-7.7); Neutrophils % (A) 52 %; Platelet Count 176 k/uL (150-450); RBC 4.35 m/uL (4.30-5.90); RDW 14.9 % (11.5-15.5)
[2019-01-04 09:22] LABS: Albumin 3.2 g/dL (3.5-5.0); Calcium 8.7 mg/dL (8.4-10.2); Potassium 4.1 mmol/L (3.5-5.1); Total Bilirubin 1.8 mg/dL (0.2-1.3); Total Protein 5.9 g/dL (6.3-8.2)
[2019-01-04] MEDS: METOPROLOL TARTRATE 25 MG TAB PO SCH ×2 (09:54→22:31)
[2019-01-04] MEDS: LISINOPRIL 20 MG TAB PO SCH (09:54)
[2019-01-04] MEDS: PANTOPRAZOLE 40 MG TABLET PO SCH (09:54)
[2019-01-04] MEDS: metroNIDAZOLE 500 MG TAB PO SCH ×3 (09:54→22:32)
[2019-01-04] MEDS: CARBIDOPA-LEVODOPA 25-100 MG 1 EACH TAB PO SCH ×3 (09:55→22:32)
[2019-01-04] MEDS: CIPROFLOXACIN HCL 500 MG TAB PO SCH ×2 (09:55→22:30)
[2019-01-04 11:00] LABS: Glucose,Whole Blood 96 mg/dL (75-99)
--- NOTE | 2019-01-04 14:16 | P.PN ---
Subjective Progress Note Date: 01/04/19 Patient is feeling better today, pain is improved, scheduled for ERCP Objective - Vital Signs Vital signs: Vital Signs Temp 98.5 F 01/04/19 12:30 Pulse 45 L 01/04/19 12:30 Resp 18 01/04/19 12:30 BP 174/73 01/04/19 12:30 Pulse Ox 97 01/04/19 12:30 Intake & Output 01/03/19 01/04/19 01/04/19 18:59 06:59 18:59 Intake Total 1420 1100 Output Total 300 Balance 1120 1100 Intake: Intake, IV Titration 640 650 Amount Sodium Chloride 0.9% 1, 640 650 000 ml @ 75 mls/hr IV . [id number] [facility] Rx#:[id number] Oral 780 450 Output: Urine 300 Other: Voiding Method Urinal Toilet Toilet # Voids 1 - Respiratory Details: nonlabored - Cardiovascular Rhythm: regular - Gastrointestinal Gastrointestinal Comment(s): S/NT/ND - Psychiatric Psychiatric: Present: A&O x's 3 - Labs CBC & Chem 7: 01/04/19 07:47 01/04/19 07:47 Labs: Abnormal Lab Results - Last 24 Hours (Table) 01/03/19 01/03/19 01/04/19 Range/Units 17:16 20:58 06:54 Hgb (13.0-17.5) gm/dL Chloride (98-107) mmol/L POC Glucose (mg/dL) 160 H 167 H 101 H (75-99) mg/dL Total Bilirubin (0.2-1.3) mg/dL Alkaline Phosphatase (38-126) U/L Total Protein (6.3-8.2) g/dL Albumin (3.5-5.0) g/dL 01/04/19 01/04/19 Range/Units 07:47 07:47 Hgb 12.8 L (13.0-17.5) gm/dL Chloride 111 H (98-107) mmol/L POC Glucose (mg/dL) (75-99) mg/dL Total Bilirubin 1.8 H (0.2-1.3) mg/dL Alkaline Phosphatase 302 H (38-126) U/L Total Protein 5.9 L (6.3-8.2) g/dL Albumin 3.2 L (3.5-5.0) g/dL Microbiology - Last 24 Hours (Table) 12/31/18 07:45 Blood Culture - Preliminary Blood No Growth after 96 hours Assessment and Plan Assessment: Choledocholithiasis Plan: Follow up ERCP results, possible cholecystectomy prior to discharge pending ERCP. Further recs to follow
--- NOTE | 2019-01-04 16:54 | P.PN ---
Subjective Progress Note Date: 01/04/19 Patient is a 78-year-old male with a PMH of hypertension, diabetes mellitus, and Parkinson's disease presented to the ED for abdominal pain, nausea, vomiting, and fever at home earlier on the day of presentation. The patient notes that his symptoms started suddenly that morning. He had cramping, 8 out of 10, constant diffuse abdominal pain, nonradiating, with no alleviating or exacerbating features, along with nausea and multiple episodes of nonbloody nonbilious emesis. The patient reports that after vomiting, abdominal pain improved significantly. Of note, the patient was previously admitted to [facility] on 10/27/2018 for aspiration pneumonia at which time he had complained of abdominal pain and was found to have deranged LFTs. Right upper quadrant ultrasound at that time and showed possible cholecystitis and Gen. surgery was consulted and recommended no surgical intervention with possible scheduled outpatient cholecystectomy. The patient underwent a comprehensive workup in the emergency room, with WBC count 12, hemoglobin 13, creatinine 1.81, lactate acid 2.2, and glucose 452. RUQ US in the ED revealed biliary sludge and the patient was febrile to 101 degrees. the patient was subsequently admitted to the medicine service for suspected cholangitis. GI service was consulted and recommended an ERCP pending clearance by cardiology. The cardiology service and ordered an echocardiogram which revealed left ventricular systolic ejection fraction between 55 and 60%. The patient was seen and examined at the bedside on 01/04/2019. He was in good spirits and denied any active complaints. He reported no further episodes of abdominal pain, or nausea/vomiting. He further denied fever, chills, chest pain, shortness of breath. The patient is scheduled for an ERCP later today. Objective - Vital Signs Vital signs: Vital Signs Temp 98.5 F 01/04/19 12:30 Pulse 45 L 01/04/19 12:30 Resp 18 01/04/19 12:30 BP 174/73 01/04/19 12:30 Pulse Ox 97 01/04/19 12:30 Intake & Output 01/03/19 01/04/19 01/04/19 18:59 06:59 18:59 Intake Total 1420 1100 600 Output Total 300 Balance 1120 1100 600 Intake: Intake, IV Titration 640 650 600 Amount Sodium Chloride 0.9% 1, 640 650 600 000 ml @ 75 mls/hr IV . [id number] [facility] Rx#:[id number] Oral 780 450 Output: Urine 300 Other: Voiding Method Urinal Toilet Toilet # Voids 1 - Exam General: Non-toxic, in no acute distress, appears stated age, obese HEENT: NC/AT, anicteric sclerae, moist conjunctiva, no lid-lag, PERRLA Cardiovascular: S1/S2 wnl, no murmurs, rubs, or gallops Lungs: Clear to auscultation, normal respiratory effort, no accessory muscle use Abdominal: Soft, non-tender, non-distended, no guarding, rebound, or rigidity Skin: Warm, dry Extremities: Chronic venous stasis changes bilateral lower extremities Psychiatric: Alert and oriented to person, place and time, appropriate affect Neuro: CN II-XII grossly intact, Strength 5/5 in all 4 extremities, Speech intact, Sensation to light touch grossly intact throughout - Labs CBC & Chem 7: 01/04/19 07:47 01/04/19 07:47 Labs: Abnormal Lab Results - Last 24 Hours (Table) 01/03/19 01/03/19 01/04/19 Range/Units 17:16 20:58 06:54 Hgb (13.0-17.5) gm/dL Chloride (98-107) mmol/L POC Glucose (mg/dL) 160 H 167 H 101 H (75-99) mg/dL Total Bilirubin (0.2-1.3) mg/dL Alkaline Phosphatase (38-126) U/L Total Protein (6.3-8.2) g/dL Albumin (3.5-5.0) g/dL 01/04/19 01/04/19 Range/Units 07:47 07:47 Hgb 12.8 L (13.0-17.5) gm/dL Chloride 111 H (98-107) mmol/L POC Glucose (mg/dL) (75-99) mg/dL Total Bilirubin 1.8 H (0.2-1.3) mg/dL Alkaline Phosphatase 302 H (38-126) U/L Total Protein 5.9 L (6.3-8.2) g/dL Albumin 3.2 L (3.5-5.0) g/dL Microbiology - Last 24 Hours (Table) 12/31/18 07:45 Blood Culture - Preliminary Blood No Growth after 96 hours Assessment and Plan Plan: Suspected cholangitis, sepsis resolved -C/w Ciprofloxacin and Flagyl -Surgery recommendations appreciated -Patient to undergo ERCP today with possibility of cholecystectomy depending on ERCP results -IVFs -Leukocytosis resolved -Continue to monitor LFTs DM -FS with VAISHALI -Taking 75-25 65 U qhs and 75 U qam -C/w 20 U of Levemir for now CKD stage 3 -At baseline HTN -Resume antihypertensives Parkinson's -Resume home Sinemet CKD -Monitor BMP DVT//GI proph -Heparin -Protonix
[2019-01-04 17:20] LABS: Glucose,Whole Blood 126 mg/dL (75-99)
[2019-01-04] MEDS ORDERED: fentaNYL (PF) 50 MCG/ML 2 ML AMP ONE (17:44)
[2019-01-04] MEDS ORDERED: LIDOCAINE 1% INJ 10MG/ML (20 ML MDV) ONE (17:44)
[2019-01-04] MEDS ORDERED: SUCCINYLCHOLINE CHLORIDE 100 MG/5 ML SYR IV ONE (17:44)
[2019-01-04] MEDS ORDERED: GLYCOPYRROLATE 0.2 MG/ML 2 ML VIAL ONE (17:44)
[2019-01-04] MEDS ORDERED: PROPOFOL 10 MG/ML 20 ML VIAL IV ONE (17:44)
[2019-01-04] MEDS ORDERED: MIDAZOLAM 2 MG/2 ML VIAL ONE (17:44)
[2019-01-04] MEDS ORDERED: ePHEDrine SULFATE/0.9% NACL/PF 50 MG/5 ML SYRINGE IV ONE (17:44)
[2019-01-04] MEDS ORDERED: IV FLUID CONTINUATION 1,000 ML IV ONE (17:47)
[2019-01-04] MEDS ORDERED: IOPAMIDOL-300 50ML BTL MISCELLANE ONE (18:48)
[2019-01-04] MEDS ORDERED: SODIUM CHLORIDE 0.9% 1,000 ML IV ONE (19:10)
--- NOTE | 2019-01-04 19:28 | P.PCN ---
Date of Procedure: 01/04/19 Description of Procedure: Brief history: Patient 78-year-old gentleman with a past medical history of cholangitis, bladder carcinoma status post resection in 2013 with subsequent bladder tumor removals as recently as few months ago, E. coli bacteremia July 2018, atrial flutter, morbid obesity, CHF, Parkinson's, diabetes, upper GI bleed, hypertension who presents to the hospital with complaints of abdominal pain, nausea and vomiting and fever. The patient was recently admitted for aspiration pneumonia and treated in October. He also has a remote history of cholangitis in 2014 for which she was treated medically due to a high risk for surgical intervention. On this admission the patient had reported 1 day of abdominal pain. He reports that it occurs suddenly and describes it as constant diffuse across his abdomen and cramping in nature. He also had associated nausea and vomiting with no reports of hematemesis or coffee-ground emesis. The patient was found to have elevation in his liver enzymes on presentation which have trended up with a bilirubin 2.9-4.8, alkaline phosphatase 227-260, AST 252-350 and ALT 53-66. The patient has had elevation in his liver enzymes in the past. Ultrasound of the abdomen performed showed a dilated common bile duct, hepatomegaly, and hepatic steatosis with sludge in a distended gallbladder.. Procedure performed: ERCP with cholangiogram, sphincterotomy and balloon sweep Preoperative diagnoses: Elevated bilirubin, cholangitis IV sedation per anesthesia Estimated blood loss: Minimal. Procedure: After informed consent was obtained from the patient and after the risks benefits and complications including bleeding perforation and pancreatitis explained in detail the patient was brought into the endoscopy unit. The patient was placed in prone position and IV conscious sedation was administered by anesthesia under continuous monitoring. The Olympus side-viewing duodenoscope was then inserted into the mouth and esophagus intubated without any difficulty. The scope was gradually advanced into the stomach and duodenum. The major papilla was identified without any difficulty. A sphinctertome was used to cannulate the ampulla which was stenotic and a wire was passed into the CBD. Cholangiogram was then performed and significant for any mildly dilated common bile duct without any filling defects. An 8 mm sphincterotomy was performed. Sphincterotome was exchanged for a balloon which was then passed over the wire into the common bile duct, common hepatic duct and to the bifurcation. Multiple passes through the duct with the balloon inflated first to 8 mm with bile noted to be free flowing with no sludge or stones noted. The pancreas was not cannulated or injected. The patient tolerated the procedure well. Impression: 1. ERCP with cholangiogram, sphincterotomy and balloon sweep. 2. Stenotic ampulla. Recommendations: The findings of this examination were discussed with the patient. Okay for low fat diet as tolerated. Monitor liver enzymes. Continue antibiotic therapy for an additional 7 days. Watch for signs or symptoms of pancreatitis.
[2019-01-04 19:40] LABS: Glucose,Whole Blood 128 mg/dL (75-99)
[2019-01-04 20:38] LABS: Glucose,Whole Blood 112 mg/dL (75-99)
[2019-01-04] MEDS ORDERED: HALOPERIDOL LACTATE 5 MG/ML 1 ML VIAL IM ONE (21:08)
[2019-01-04] MEDS: INSULIN DETEMIR (LEVEMIR) 100 UNIT/ML SYR SQ SCH (22:31)
--- NOTE | 2019-01-05 03:55 | FL ---
EXAMINATION TYPE: FL ERCP DATE OF EXAM: 01/04/2019 FLUOROSCOPY Fluoroscopy time of 19 seconds was used during ERCP. 5 image/s document/s the procedure.
[2019-01-05 05:10] VITALS: BP 147/74; PULSE 56; RESP 16; TEMP 97.4
[2019-01-05 07:07] LABS: Glucose,Whole Blood 121 mg/dL (75-99)
[2019-01-05 07:42] LABS: HCT 37.5 % (39.0-53.0); MCH 29.5 pg (25.0-35.0); MCHC 32.1 g/dL (31.0-37.0); MCV 91.9 fL (80.0-100.0); Mean Platelet Volume 8.6; Platelet Count 196 k/uL (150-450); RBC 4.08 m/uL (4.30-5.90); RDW 15.1 % (11.5-15.5); WBC 6.5 k/uL (3.8-10.6)
[2019-01-05] MEDS: INSULIN ASPART (NovoLOG) 100 UNIT/ML VIAL SQ SCH (07:55)
[2019-01-05 08:03] LABS: Calcium 8.5 mg/dL (8.4-10.2); Potassium 4.2 mmol/L (3.5-5.1); Total Bilirubin 2.5 mg/dL (0.2-1.3); Total Protein 5.7 g/dL (6.3-8.2)
[2019-01-05] MEDS: PANTOPRAZOLE 40 MG TABLET PO SCH (08:06)
[2019-01-05] MEDS: LEVOTHYROXINE 88 MCG TAB PO SCH (08:06)
[2019-01-05] MEDS: HEPARIN SODIUM,PORCINE 5,000 UNIT/ML 1 ML VIAL SQ SCH (08:06)
[2019-01-05] MEDS: LISINOPRIL 20 MG TAB PO SCH (08:07)
[2019-01-05] MEDS: CIPROFLOXACIN HCL 500 MG TAB PO SCH (08:07)
[2019-01-05] MEDS: METOPROLOL TARTRATE 25 MG TAB PO SCH (08:07)
[2019-01-05] MEDS: metroNIDAZOLE 500 MG TAB PO SCH (08:07)
[2019-01-05] MEDS: CARBIDOPA-LEVODOPA 25-100 MG 1 EACH TAB PO SCH (08:07)
--- NOTE | 2019-01-05 09:28 | P.PN ---
Subjective Progress Note Date: 01/05/19 Principal diagnosis: Cholangitis elevated bilirubin Status post ERCP sphincterotomy balloon sweep no sludge or stones noted. Stenotic ampulla. Presently denies abdominal pain. Afebrile. Tolerating diet. Total bilirubin 2.5. White count 6.5. Objective - Vital Signs Vital signs: Vital Signs Temp 97.4 F L 01/05/19 05:09 Pulse 56 L 01/05/19 05:09 Resp 16 01/05/19 05:09 BP 147/74 01/05/19 05:09 Pulse Ox 99 01/05/19 05:09 Intake & Output 01/04/19 01/05/19 01/05/19 18:59 06:59 18:59 Intake Total 1100 1140 Output Total 600 Balance 1100 540 Intake: IV 500 300 Intake, IV Titration 600 300 Amount Sodium Chloride 0.9% 1, 600 300 000 ml @ 75 mls/hr IV . [id number] [facility] Rx#:[id number] Oral 540 Output: Urine 600 Other: Voiding Method Toilet Urinal Urinal # Voids 4 - Exam General appearance: The patient is alert, oriented, in no acute distress. HET: Head is normocephalic and atraumatic. Pupils are equal and reactive. Oropharynx is clear without lesions. Neck: Supple without lymphadenopathy. Trachea midline. Heart: S1 S2. Regular rate and rhythm. Lungs: No crackles or wheezes are heard. Abdomen: Soft, nontender, nondistended with bowel sounds. No peritoneal signs. No palpable organomegaly or masses. Extremities: Normal skin color and turgor. No cyanosis, rash, ulceration, clubbing, or edema. Radial and pedal pulses are 2/4 bilaterally. Neurological: No focal deficits. Strength and sensation are grossly intact. - Labs CBC & Chem 7: 01/05/19 06:52 01/05/19 06:52 Labs: Abnormal Lab Results - Last 24 Hours (Table) 01/04/19 01/04/19 01/04/19 Range/Units 17:19 19:35 20:18 RBC (4.30-5.90) m/uL Hgb (13.0-17.5) gm/dL Hct (39.0-53.0) % Chloride (98-107) mmol/L Glucose (74-99) mg/dL POC Glucose (mg/dL) 126 H 128 H 112 H (75-99) mg/dL Total Bilirubin (0.2-1.3) mg/dL AST (17-59) U/L Alkaline Phosphatase (38-126) U/L Total Protein (6.3-8.2) g/dL Albumin (3.5-5.0) g/dL 01/05/19 01/05/19 01/05/19 Range/Units 06:52 06:52 07:06 RBC 4.08 L (4.30-5.90) m/uL Hgb 12.0 L (13.0-17.5) gm/dL Hct 37.5 L (39.0-53.0) % Chloride 110 H (98-107) mmol/L Glucose 124 H (74-99) mg/dL POC Glucose (mg/dL) 121 H (75-99) mg/dL Total Bilirubin 2.5 H (0.2-1.3) mg/dL AST 70 H (17-59) U/L Alkaline Phosphatase 344 H (38-126) U/L Total Protein 5.7 L (6.3-8.2) g/dL Albumin 3.0 L (3.5-5.0) g/dL Microbiology - Last 24 Hours (Table) 12/31/18 07:45 Blood Culture - Preliminary Blood No Growth after 96 hours Assessment and Plan (1) Ampullary stenosis Current Visit: Yes Status: Acute Code(s): K83.1 - OBSTRUCTION OF BILE DUCT SNOMED Code(s): 409667456 (2) Ascending cholangitis Current Visit: Yes Status: Acute Code(s): K83.09 - OTHER CHOLANGITIS SNOMED Code(s): 03114416 Plan: 1. From a GI standpoint agreeable for discharge. Continue antibiotics for additional 7 days. Low-fat diet. CMP monitoring in the outpatient setting. Return to office 2-3 weeks. Assessment and plan of care discussed with Dr. Villanueva
--- NOTE | 2019-01-05 10:46 | P.DS ---
Providers Date of admission: 12/31/18 09:22 Expected date of discharge: 01/05/19 Attending physician: Shar Rosenbaum MD Consults: 12/31/18 09:19 Consult Physician Routine Consulting Provider: Feliciano Pederson Consult Reason/Comments: ruq pain Do you want consulting provider notified?: Yes 12/31/18 18:28 Consult Physician Routine Consulting Provider: Darshan Davis Consult Reason/Comments: cholangitis Do you want consulting provider notified?: Already Contacted 01/01/19 13:17 Consult Physician Routine Consulting Provider: [facility] Consult Reason/Comments: EVALUALTE PT FOR SURGERY Do you want consulting provider notified?: Yes Primary care physician: Joselito Wallis Hospital Course: Patient is a 78-year-old male with a PMH of hypertension, diabetes mellitus, and Parkinson's disease presented to the ED for abdominal pain, nausea, vomiting, and fever at home earlier on the day of presentation. The patient notes that his symptoms started suddenly that morning. He had cramping, 8 out of 10, constant diffuse abdominal pain, nonradiating, with no alleviating or exacerbating features, along with nausea and multiple episodes of nonbloody nonbilious emesis. The patient reports that after vomiting, abdominal pain improved significantly. Of note, the patient was previously admitted to [facility] on 10/27/2018 for aspiration pneumonia at which time he had complained of abdominal pain and was found to have deranged LFTs. Right upper quadrant ultrasound at that time and showed possible cholecystitis and Gen. surgery was consulted and recommended no surgical intervention with possible scheduled outpatient cholecystectomy. The patient underwent a comprehensive workup in the emergency room, with WBC count 12, hemoglobin 13, creatinine 1.81, lactate acid 2.2, and glucose 452. RUQ US in the ED revealed biliary sludge and the patient was febrile to 101 degrees. the patient was subsequently admitted to the medicine service for suspected cholangitis. The patient's bilirubin was elevated to a peak of 4.8. GI service was consulted and recommended an ERCP pending clearance by cardiology. The cardiology service and ordered an echocardiogram which revealed left ventricular systolic ejection fraction between 55 and 60%. The patient subsequently underwent an ERCP w/ cholangiogram which revealed a stenotic ampulla and no sludge or stones. The patient underwent a sphincterotomy and balloon sweep. The patient tolerated the procedure well. He was seen on the day of discharge and was in good spirits. He denied abdominal pain, fever, or chills. Further denied chest pain, SOB, diarrhea, or cough. The patient was evaluated by GI and cleared for discharge. He was advised to follow a low-fat diet, continue w/ oral antibiotics, and undergo CMP testing following discharge with follow-up with GI and Surgery services planned. Physical Examination General: Non-toxic, in no acute distress, appears stated age, obese HEENT: NC/AT, anicteric sclerae, moist conjunctiva, no lid-lag, PERRLA Cardiovascular: S1/S2 wnl, no murmurs, rubs, or gallops Lungs: Clear to auscultation, normal respiratory effort, no accessory muscle use Abdominal: Soft, non-tender, non-distended, no guarding, rebound, or rigidity Skin: Warm, dry Extremities: Chronic venous stasis changes bilateral lower extremities Psychiatric: Alert and oriented to person, place and time, appropriate affect Neuro: CN II-XII grossly intact, Strength 5/5 in all 4 extremities, Speech intact, Sensation to light touch grossly intact throughout Discharge diagnosis: Ascending acute cholangitis; ampullary stenosis; diabetes mellitus; CKD; HTN; Parkinson's disease A total of 35 minutes of time were spent preparing this complex discharge summary. Pertinent Studies: As per HPI Procedures: As per HPI Patient Condition at Discharge: Fair Plan - Discharge Summary Discharge Rx Participant: No New Discharge Prescriptions: New Ciprofloxacin HCl [Cipro] 500 mg PO BID #14 tab metroNIDAZOLE [Flagyl] 500 mg PO TID #21 tab Continue Albuterol Inhaler [Ventolin Hfa Inhaler] 2 puff INHALATION RT-Q4H PRN PRN Reason: Dyspnea Amiodarone HCl 200 mg PO QAM Metoprolol Tartrate 25 mg PO BID Carbidopa-Levodopa 25-100 mg [Sinemet 25-100 mg] 2 tab PO TID Furosemide [Lasix] 40 mg PO BID Levothyroxine Sodium [Synthroid] 88 mcg PO DIRECTED Insulin Lispro Protamin/Lispro [humaLOG Mix 75-25 Kwikpen] 75 unit SQ QAM Insulin Lispro Protamin/Lispro [humaLOG Mix 75-25 Kwikpen] 65 unit SQ HS Fluticasone Nasal Zillah [Flonase Nasal Zillah] 1 spray EA NOSTRIL DAILY Lisinopril [Zestril] 40 mg PO DIRECTED Discharge Medication List Albuterol Inhaler [Ventolin Hfa Inhaler] 2 puff INHALATION RT-Q4H PRN 03/15/14 [History] Amiodarone HCl 200 mg PO QAM 04/21/14 [History] Metoprolol Tartrate 25 mg PO BID 04/21/16 [History] Carbidopa-Levodopa 25-100 mg [Sinemet 25-100 mg] 2 tab PO TID 07/08/16 [History] Furosemide [Lasix] 40 mg PO BID 10/27/18 [History] Fluticasone Nasal [place]ill[place] [Flonase Nasal [place]ill[place]] 1 spray EA NOSTRIL DAILY 12/31/18 [History] Insulin Lispro Protamin/Lispro [humaLOG Mix 75-25 Kwikpen] 65 unit SQ HS 12/31/18 [History] Insulin Lispro Protamin/Lispro [humaLOG Mix 75-25 Kwikpen] 75 unit SQ QAM 12/31/18 [History] Levothyroxine Sodium [Synthroid] 88 mcg PO DIRECTED 12/31/18 [History] Lisinopril [Zestril] 40 mg PO DIRECTED 12/31/18 [History] Ciprofloxacin HCl [Cipro] 500 mg PO BID #14 tab 01/05/19 [Rx] metroNIDAZOLE [Flagyl] 500 mg PO TID #21 tab 01/05/19 [Rx] Follow up Appointment(s)/Referral(s): Joselito Wallis DO [Primary Care Provider] - 1-2 days Skinny Villanueva MD [STAFF PHYSICIAN] - 2 Weeks Darshan Davis DO [Doctor of Osteopathic Medicine] - 2 Weeks Ambulatory/Diagnostic Orders: Comprehensive Metabolic Panel [LAB.AMB] Time Frame: 1 Week, Location: None Selected Discharge Disposition: HOME SELF-CARE
== END 2019-01-05 12:30 | disposition home or self-care (01) | DRG 871 ==
LOC: EC 05:42 → 3SCARD 09:22 → 3NMEDONC 01-03 11:34
PROVIDERS: ADMIT Internal Medicine; ATTEND Internal Medicine
PROC: BF101ZZ Fluoroscopy of Bile Ducts using Low Osmolar Contrast (ICD-10-PCS; 2019-01-04)
PROC: 0F798ZZ Dilation of Common Bile Duct, Via Natural or Artificial Opening Endoscopic (ICD-10-PCS; principal; 2019-01-04 08:30)
DX: A41.9 Sepsis, unspecified organism (principal); K83.1 Obstruction of bile duct; I13.0 Hypertensive heart and chronic kidney disease with heart failure and stage 1 through stage 4 chronic kidney disease, or unspecified chronic kidney disease; K83.09 Other cholangitis; E03.9 Hypothyroidism, unspecified; E11.22 Type 2 diabetes mellitus with diabetic chronic kidney disease; E11.65 Type 2 diabetes mellitus with hyperglycemia; E78.5 Hyperlipidemia, unspecified; F40.240 Claustrophobia; G20 Parkinson's disease; I48.0 Paroxysmal atrial fibrillation; I50.9 Heart failure, unspecified; J44.9 Chronic obstructive pulmonary disease, unspecified; K76.0 Fatty (change of) liver, not elsewhere classified; N18.3 Chronic kidney disease, stage 3 (moderate); E66.01 Morbid (severe) obesity due to excess calories; F41.9 Anxiety disorder, unspecified; H26.9 Unspecified cataract; R01.1 Cardiac murmur, unspecified; R16.0 Hepatomegaly, not elsewhere classified; M47.9 Spondylosis, unspecified; I87.8 Other specified disorders of veins; Z68.37 Body mass index [BMI] 37.0-37.9, adult; Z79.4 Long term (current) use of insulin; Z79.890 Hormone replacement therapy; Z79.899 Other long term (current) drug therapy; Z88.6 Allergy status to analgesic agent; Z87.891 Personal history of nicotine dependence; Z85.51 Personal history of malignant neoplasm of bladder; Z80.3 Family history of malignant neoplasm of breast; Z82.49 Family history of ischemic heart disease and other diseases of the circulatory system; Z83.518 Family history of other specified eye disorder
CPT/HCPCS: 36415; 43262; 74018; 74330; 76705; 80053; 81003; 82150; 82248; 83605; 83690; 83735; 85025; 85027; 85610; 87040; 87502; 93306; 96365; 96375; 99285

== ENCOUNTER 2019-03-02 09:07 | Inpatient (IN) | payer MEDICARE ==
[2019-03-02] MEDS ORDERED: SODIUM CHLORIDE 0.9% 2,000 ML IV ONE (09:17)
[2019-03-02] MEDS ORDERED: SODIUM CHLORIDE 0.9% 1,000 ML IV STA ×3 (09:17→15:10)
--- NOTE | 2019-03-02 09:30 | ED ---
Altered Mental Status HPI - General Stated Complaint: AMS Time Seen by Provider: 03/02/19 09:07 Source: patient, EMS, RN notes reviewed, old records reviewed Mode of arrival: EMS - History of Present Illness Initial Comments: This is a 78-year-old male with a history of bladder cancer, other medical issu es who was brought in by EMS because of decreased level of consciousness he was found have a markedly elevated blood sugar in addition to having evidence of dehydration. Apparently he fell this morning was evaluated by EMS crew but did not want to come in at that time. No reports of any injury no head neck or back pain reported. Accu-Chek was indicating greater than 500 blood sugar. MD Complaint: altered mental status, decreased responsiveness, weakness - Related Data Home Medications Medication Instructions Recorded Confirmed Albuterol Inhaler [Ventolin Hfa 2 puff INHALATION RT-Q4H PRN 03/15/14 03/02/19 Inhaler] Amiodarone HCl 200 mg PO QAM 04/21/14 03/02/19 Metoprolol Tartrate 25 mg PO BID 04/21/16 03/02/19 Carbidopa-Levodopa 25-100 mg 2 tab PO TID 07/08/16 03/02/19 [Sinemet 25-100 mg] Furosemide [Lasix] 40 mg PO BID 10/27/18 03/02/19 Fluticasone Nasal Gervais [Flonase 1 spray EA NOSTRIL DAILY 12/31/18 03/02/19 Nasal Gervais] Levothyroxine Sodium [Synthroid] 88 mcg PO DAILY 12/31/18 03/02/19 Lisinopril [Zestril] 40 mg PO DAILY 12/31/18 03/02/19 Insulin Lispro Protamin/Lispro See Protocol SQ AC-BID 03/02/19 03/02/19 [humaLOG Mix 75-25 Kwikpen] Allergies Allergy/AdvReac Type Severity Reaction Status Date / Time aspirin Allergy Swelling Verified 03/02/19 09:59 NSAIDS (Non-Steroidal Allergy Swelling Verified 03/02/19 09:59 Anti-Inflamma Review of Systems ROS Statement: Those systems with pertinent positive or pertinent negative responses have been documented in the HPI. ROS Other: All systems not noted in ROS Statement are negative. Past Medical History Past Medical History: Atrial Flutter, Cancer, Heart Failure, COPD, Diabetes Mellitus, Hypertension, Musculoskeletal Disorder, Neurologic Disorder, Thyroid Disorder Additional Past Medical History / Comment(s): PT ADMITTED ON 10/27/18 WITH BACTEREMIA D/T KLEBSIELLA PNE/TRANSAMINITIS/BILIARY SLUDGE PER US. OTHERHX: HX A-FLUTTER/TACHYCARDIA- TX W/ SAL/CARDIOVERSION, HAS BLADDER CA WITH SURGERY AND BLADDER INSTILLATION OF MED FOR BLADDER CANCER, IDC WITH UTI-REMOVED, IDDM TYPE II, BILATERAL CATARACTS, ABD HERNIA. PARKINSONS, DIVERTICULITIS, EDEMA FEET/LEGS, DDD lower spine, HYPOTHYROID, PNEUMONIA WITH SEPSIS, acute renal failure d/t acute tubular necrosis d/t sepsis, possible CKD. Last Myocardial Infarction Date:: UNK History of Any Multi-Drug Resistant Organisms: None Reported Past Surgical History: Adenoidectomy, Bladder Surgery, Tonsillectomy Additional Past Surgical History / Comment(s): 2013 CARDIOVERSION, SAL. BLADDER TUMOR REMOVED,cystoscopy with bladder CA TREATMENTS, colonoscopy Past Anesthesia/Blood Transfusion Reactions: Previous Problems w/ Anesthesia Additional Past Anesthesia/Blood Transfusion Reaction / Comment(s): HX CLAUSTROPHOBIA Smoking Status: Former smoker - Past Family History Father Family Medical History: Cancer Additional Family Medical History / Comment(s): Bone cancer. Mother Family Medical History: Coronary Artery Disease (CAD) Additional Family Medical History / Comment(s): Macular degeneration Sister(s) Family Medical History: Cancer Additional Family Medical History / Comment(s): breast CA General Exam - General Exam Comments Initial Comments: This a well-developed well-nourished awake alert but lethargic male General appearance: alert, in no apparent distress, lethargic Head exam: Present: atraumatic, normocephalic, normal inspection Eye exam: Present: normal appearance, PERRL, EOMI. Absent: scleral icterus, conjunctival injection, periorbital swelling ENT exam: Present: mucous membranes dry Neck exam: Present: normal inspection. Absent: tenderness, meningismus, lymphadenopathy Respiratory exam: Present: normal lung sounds bilaterally. Absent: respiratory distress, wheezes, rales, rhonchi, stridor Cardiovascular Exam: Present: regular rate, normal rhythm, normal heart sounds. Absent: systolic murmur, diastolic murmur, rubs, gallop, clicks GI/Abdominal exam: Present: soft, normal bowel sounds. Absent: distended, tenderness, guarding, rebound, rigid Extremities exam: Present: full ROM, normal capillary refill, pedal edema, other (Evidence of stasis dermatitis). Absent: tenderness, joint swelling, calf tenderness Back exam: Present: normal inspection Neurological exam: Present: alert, oriented X3, CN II-XII intact Psychiatric exam: Present: normal affect, normal mood Skin exam: Present: warm, dry, intact, normal color. Absent: rash Course Vital Signs 03/02/19 03/02/19 03/02/19 09:41 10:38 12:12 Temperature 99.1 F Pulse Rate 86 76 81 Respiratory 18 18 18 Rate Blood Pressure 102/53 100/49 109/62 O2 Sat by Pulse 92 L 98 98 Oximetry 03/02/19 12:59 Temperature Pulse Rate 81 Respiratory 18 Rate Blood Pressure 97/49 O2 Sat by Pulse 100 Oximetry Medical Decision Making - Medical Decision Making I did reevaluate patient several occasions he is getting some improvement after IV hydration he does demonstrate multiple issues. He will be admitted for IV fl uids IV medication for low magnesium renal insufficiency and elevated troponin elevated lactic acid which is likely on the basis of dehydration and renal insufficiency. Pneumonitis is also to be treated. I did discuss case Dr. Smith - Lab Data Result diagrams: 03/02/19 09:20 03/02/19 09:20 Lab Results 03/02/19 03/02/19 03/02/19 Range/Units 09:20 09:20 09:20 WBC (3.8-10.6) k/uL RBC (4.30-5.90) m/uL Hgb (13.0-17.5) gm/dL Hct (39.0-53.0) % MCV (80.0-100.0) fL MCH (25.0-35.0) pg MCHC (31.0-37.0) g/dL RDW (11.5-15.5) % Plt Count (150-450) k/uL Neutrophils % (Manual) % Band Neutrophils % % Lymphocytes % (Manual) % Monocytes % (Manual) % Basophils % (Manual) % Metamyelocytes % % Neutrophils # (Manual) (1.3-7.7) k/uL Lymphocytes # (Manual) (1.0-4.8) k/uL Monocytes # (Manual) (0-1.0) k/uL Basophils # (Manual) (0-0.2) k/uL Metamyelocytes # (Man) (0) k/uL Nucleated RBCs (0-0) /100 WBC Manual Slide Review Poikilocytosis (manual Sodium 136 L (137-145) mmol/L Potassium 3.5 (3.5-5.1) mmol/L Chloride 98 (98-107) mmol/L Carbon Dioxide 25 (22-30) mmol/L Anion Gap 13 mmol/L BUN 31 H (9-20) mg/dL Creatinine 2.05 H (0.66-1.25) mg/dL Est GFR (CKD-EPI)AfAm 35 (>60 ml/min/1.73 sqM) Est GFR (CKD-EPI)NonAf 30 (>60 ml/min/1.73 sqM) Glucose 516 H* (74-99) mg/dL POC Glucose (mg/dL) (75-99) mg/dL POC Glu Accessibility Lift Technician ID Lactic Ac Sepsis Rflx Plasma Lactic Acid Riley 2.4 H* (0.7-2.0) mmol/L Calcium 9.4 (8.4-10.2) mg/dL Magnesium 1.3 L (1.6-2.3) mg/dL Total Bilirubin 1.4 H (0.2-1.3) mg/dL AST 126 H (17-59) U/L ALT 68 (21-72) U/L Alkaline Phosphatase 287 H (38-126) U/L Ammonia 9 (<30) umol/L Total Creatine Kinase 37 L (55-170) U/L CK-MB (CK-2) 0.7 (0.0-2.4) ng/mL CK-MB (CK-2) Rel Index 1.9 Troponin I 0.042 H* (0.000-0.034) ng/mL Total Protein 6.2 L (6.3-8.2) g/dL Albumin 3.6 (3.5-5.0) g/dL Lipase 48 (23-300) U/L Urine Color Urine Appearance (Clear) Urine pH (5.0-8.0) Ur Specific [place] (1.001-1.035) Urine Protein (Negative) Urine Glucose (UA) (Negative) Urine Ketones (Negative) Urine Blood (Negative) Urine Nitrite (Negative) Urine Bilirubin (Negative) Urine Urobilinogen (<2.0) mg/dL Ur Leukocyte Esterase (Negative) Serum Alcohol <10 mg/dL Acetone, Qual Negative (Negative) 03/02/19 03/02/19 03/02/19 Range/Units 09:20 09:24 10:14 WBC 12.6 H (3.8-10.6) k/uL RBC 4.82 (4.30-5.90) m/uL Hgb 14.2 (13.0-17.5) gm/dL Hct 43.2 (39.0-53.0) % MCV 89.5 (80.0-100.0) fL MCH 29.5 (25.0-35.0) pg MCHC 33.0 (31.0-37.0) g/dL RDW 14.5 (11.5-15.5) % Plt Count 167 (150-450) k/uL Neutrophils % (Manual) 75 % Band Neutrophils % 15 % Lymphocytes % (Manual) 5 % Monocytes % (Manual) 5 % Basophils % (Manual) 1 % Metamyelocytes % 1 % Neutrophils # (Manual) 11.30 H (1.3-7.7) k/uL Lymphocytes # (Manual) 0.63 L (1.0-4.8) k/uL Monocytes # (Manual) 0.63 (0-1.0) k/uL Basophils # (Manual) 0.13 (0-0.2) k/uL Metamyelocytes # (Man) 0.13 H (0) k/uL Nucleated RBCs 0 (0-0) /100 WBC Manual Slide Review Performed Poikilocytosis (manual Present Sodium (137-145) mmol/L Potassium (3.5-5.1) mmol/L Chloride (98-107) mmol/L Carbon Dioxide (22-30) mmol/L Anion Gap mmol/L BUN (9-20) mg/dL Creatinine (0.66-1.25) mg/dL Est GFR (CKD-EPI)AfAm (>60 ml/min/1.73 sqM) Est GFR (CKD-EPI)NonAf (>60 ml/min/1.73 sqM) Glucose (74-99) mg/dL POC Glucose (mg/dL) 492 H (75-99) mg/dL POC Glu Accessibility Lift Technician ID Mary Ann Hancock Lactic Ac Sepsis Rflx Y Plasma Lactic Acid Riley (0.7-2.0) mmol/L Calcium (8.4-10.2) mg/dL Magnesium (1.6-2.3) mg/dL Total Bilirubin (0.2-1.3) mg/dL AST (17-59) U/L ALT (21-72) U/L Alkaline Phosphatase (38-126) U/L Ammonia (<30) umol/L Total Creatine Kinase (55-170) U/L CK-MB (CK-2) (0.0-2.4) ng/mL CK-MB (CK-2) Rel Index Troponin I (0.000-0.034) ng/mL Total Protein (6.3-8.2) g/dL Albumin (3.5-5.0) g/dL Lipase (23-300) U/L Urine Color Urine Appearance (Clear) Urine pH (5.0-8.0) Ur Specific [place] (1.001-1.035) Urine Protein (Negative) Urine Glucose (UA) (Negative) Urine Ketones (Negative) Urine Blood (Negative) Urine Nitrite (Negative) Urine Bilirubin (Negative) Urine Urobilinogen (<2.0) mg/dL Ur Leukocyte Esterase (Negative) Serum Alcohol mg/dL Acetone, Qual (Negative) 03/02/19 03/02/19 Range/Units 12:09 12:50 WBC (3.8-10.6) k/uL RBC (4.30-5.90) m/uL Hgb (13.0-17.5) gm/dL Hct (39.0-53.0) % MCV (80.0-100.0) fL MCH (25.0-35.0) pg MCHC (31.0-37.0) g/dL RDW (11.5-15.5) % Plt Count (150-450) k/uL Neutrophils % (Manual) % Band Neutrophils % % Lymphocytes % (Manual) % Monocytes % (Manual) % Basophils % (Manual) % Metamyelocytes % % Neutrophils # (Manual) (1.3-7.7) k/uL Lymphocytes # (Manual) (1.0-4.8) k/uL Monocytes # (Manual) (0-1.0) k/uL Basophils # (Manual) (0-0.2) k/uL Metamyelocytes # (Man) (0) k/uL Nucleated RBCs (0-0) /100 WBC Manual Slide Review Poikilocytosis (manual Sodium (137-145) mmol/L Potassium (3.5-5.1) mmol/L Chloride (98-107) mmol/L Carbon Dioxide (22-30) mmol/L Anion Gap mmol/L BUN (9-20) mg/dL Creatinine (0.66-1.25) mg/dL Est GFR (CKD-EPI)AfAm (>60 ml/min/1.73 sqM) Est GFR (CKD-EPI)NonAf (>60 ml/min/1.73 sqM) Glucose (74-99) mg/dL POC Glucose (mg/dL) 504 H (75-99) mg/dL POC Glu Accessibility Lift Technician ID Santi Mary Ann Lactic Ac Sepsis Rflx Plasma Lactic Acid Riley (0.7-2.0) mmol/L Calcium (8.4-10.2) mg/dL Magnesium (1.6-2.3) mg/dL Total Bilirubin (0.2-1.3) mg/dL AST (17-59) U/L ALT (21-72) U/L Alkaline Phosphatase (38-126) U/L Ammonia (<30) umol/L Total Creatine Kinase (55-170) U/L CK-MB (CK-2) (0.0-2.4) ng/mL CK-MB (CK-2) Rel Index Troponin I (0.000-0.034) ng/mL Total Protein (6.3-8.2) g/dL Albumin (3.5-5.0) g/dL Lipase (23-300) U/L Urine Color Yellow Urine Appearance Clear (Clear) Urine pH 5.5 (5.0-8.0) Ur Specific [place] 1.029 (1.001-1.035) Urine Protein Trace H (Negative) Urine Glucose (UA) 4+ H (Negative) Urine Ketones Trace H (Negative) Urine Blood Negative (Negative) Urine Nitrite Negative (Negative) Urine Bilirubin Negative (Negative) Urine Urobilinogen <2.0 (<2.0) mg/dL Ur Leukocyte Esterase Negative (Negative) Serum Alcohol mg/dL Acetone, Qual (Negative) - EKG Data -: EKG Interpreted by Me EKG shows normal: sinus rhythm (Sinus rhythm of 82. Interval 206 respiration 110 daily since QTC 406/474 nonspecific old inferior changes and anterior changes.) - Radiology Data Radiology results: report reviewed (I did review the imaging and report some basilar atelectasis pneumonia not ruled out), image reviewed Critical Care Time Critical Care Time: Yes Critical Care Time: 33 minutes of critical care time which includes initial presentation with history physical labs x-rays multiple reevaluation patient responsive or PE discuss with the patient family regarding findings discussed with Dr. Smith admission orders. Discussion with the medics about the patient and documentation the above Disposition Clinical Impression: Delirium due to general medical condition, Pneumonia, Dehydration, Hyperglycemia, Renal insufficiency syndrome, Hypomagnesemia syndrome, Elevated troponin, Lactic acidosis Disposition: [facility] Condition: Fair Referrals: Joselito Wallis DO [Primary Care Provider] - 1-2 days
[2019-03-02 09:33] LABS: Glucose,Whole Blood 492 mg/dL (75-99)
[2019-03-02 10:04] LABS: ALT 68 U/L (21-72); AST 126 U/L (17-59); Albumin 3.6 g/dL (3.5-5.0); Alcohol <10 mg/dL; Alkaline Phosphatase 287 U/L (38-126); Anion Gap 13 mmol/L; Blood Urea Nitrogen 31 mg/dL (9-20); Calcium 9.4 mg/dL (8.4-10.2); Carbon Dioxide 25 mmol/L (22-30); Chloride 98 mmol/L (98-107); Lipase 48 U/L (23-300); Magnesium 1.3 mg/dL (1.6-2.3); Potassium 3.5 mmol/L (3.5-5.1); Sodium 136 mmol/L (137-145); Total Bilirubin 1.4 mg/dL (0.2-1.3); Total Protein 6.2 g/dL (6.3-8.2)
[2019-03-02 10:11] LABS: HCT 43.2 % (39.0-53.0); HGB 14.2 gm/dL (13.0-17.5); Lactic Acid, Venous 2.4 mmol/L (0.7-2.0); MCH 29.5 pg (25.0-35.0); MCV 89.5 fL (80.0-100.0); Mean Platelet Volume 9.2; Platelet Count 167 k/uL (150-450); RBC 4.82 m/uL (4.30-5.90); RDW 14.5 % (11.5-15.5); WBC 12.6 k/uL (3.8-10.6)
[2019-03-02 10:14] LABS: Glucose 516 mg/dL (74-99)
--- NOTE | 2019-03-02 10:21 | XR ---
EXAMINATION TYPE: XR chest 2V DATE OF EXAM: 03/02/2019 COMPARISON: Prior chest x-ray 10/31/2018 HISTORY: Cough and chest pain TECHNIQUE: Frontal and lateral views of the chest are obtained. FINDINGS: Patient is rotated and there are overlying cardiac leads. Heart size may be accentuated du e to rotation. No evident pneumothorax or pleural effusion. Thoracic spondylosis is present. Suspect some basilar subsegmental atelectatic changes. IMPRESSION: Rotated exam, probable basilar atelectasis or scarring, follow-up as indicated if pneumo jcarlos is suspected.
[2019-03-02 10:26] LABS: Creatine Kinase MB 0.7 ng/mL (0.0-2.4)
[2019-03-02 10:27] LABS: Troponin I 0.042 ng/mL (0.000-0.034)
[2019-03-02 10:31] LABS: Band Neutrophils % 15 %; Basophils # (M) 0.13 k/uL (0-0.2); Lymphocytes # (M) 0.63 k/uL (1.0-4.8); Metamyelocytes # (M) 0.13 k/uL (0); Metamyelocytes % 1 %; Monocytes # (M) 0.63 k/uL (0-1.0); Neutrophils % (M) 75 %; Nucleated Red Blood Cells 0 /100 WBC (0-0); Total Cells Counted 200
[2019-03-02 10:32] LABS: Poikilocytosis (M) Present
[2019-03-02] MEDS ORDERED: INSULIN REGULAR 100 UNIT/ML VIAL IV ONE (12:16)
[2019-03-02] MEDS ORDERED: MAGNESIUM SULFATE-D5W PMX 1 GM in DEXTROSE/WATER 1 100ML.BAG IVPB ONE (12:16)
[2019-03-02 12:33] LABS: Appearance,Urine Clear (Clear); Bilirubin,Urine Negative (Negative); Blood,Urine Negative (Negative); Color,Urine Yellow; Glucose,Urine (UA) 4+ (Negative); Ketones,Urine Trace (Negative); Leukocyte Esterase,Urine Negative (Negative); Nitrite,Urine Negative (Negative); PH, Urine 5.5 (5.0-8.0); Protein,Urine Trace (Negative); Specific Gravity,Urine 1.029 (1.001-1.035); Urobilinogen,Urine <2.0 mg/dL (<2.0)
[2019-03-02 13:11] LABS: Glucose,Whole Blood 504 mg/dL (75-99)
[2019-03-02] MEDS ORDERED: cefTRIAXone IN SWFI 1,000 MG/10 ML SYRINGE IVP STA (14:44)
[2019-03-02] MEDS ORDERED: PNEUMONIA PROTOCOL UTILIZED 1 EACH MISC PO PRN (14:53)
[2019-03-02] MEDS ORDERED: AZITHROMYCIN 500 MG in SODIUM CHLORIDE 0.9% 250 ML IVPB STA (14:53)
[2019-03-02 14:59] LABS: Glucose,Whole Blood 474 mg/dL (75-99)
[2019-03-02] MEDS: FUROSEMIDE 40 MG TAB PO SCH (16:02)
[2019-03-02 17:33] LABS: Glucose,Whole Blood 441 mg/dL (75-99)
[2019-03-02] MEDS: IPRATROPIUM-ALBUTEROL 3 ML NEB INHALATION SCH ×3 (18:19→23:57)
[2019-03-02] MEDS: CARBIDOPA-LEVODOPA 25-100 MG 1 EACH TAB PO SCH (18:21)
[2019-03-02] MEDS: INSULIN ASPART (NovoLOG) 100 UNIT/ML VIAL SQ SCH (18:21)
[2019-03-02 20:52] LABS: Glucose,Whole Blood 405 mg/dL (75-99)
[2019-03-02] MEDS ORDERED: INSULIN DETEMIR (LEVEMIR) 100 UNIT/ML SYR SQ SCH (21:00)
[2019-03-02] MEDS ORDERED: INSULIN REGULAR 100 UNIT in SODIUM CHLORIDE 0.9% 100 ML IV SCH (22:00)
[2019-03-02] MEDS: HEPARIN SODIUM,PORCINE 5,000 UNIT/ML 1 ML VIAL SQ SCH ×2 (22:39→22:40)
[2019-03-02] MEDS: METOPROLOL TARTRATE 25 MG TAB PO SCH (22:39)
[2019-03-02 22:44] LABS: Glucose,Whole Blood 379 mg/dL (75-99)
[2019-03-02 22:48] LABS: INR 0.9 (<1.2); Prothrombin Time 10.2 sec (9.0-12.0)
[2019-03-02 23:19] LABS: Glucose,Whole Blood 399 mg/dL (75-99)
[2019-03-02 23:52] LABS: Glucose,Whole Blood 332 mg/dL (75-99)
[2019-03-03 00:11] LABS: Glucose,Whole Blood 305 mg/dL (75-99)
[2019-03-03] MEDS ORDERED: ACETAMINOPHEN TAB 325 MG TAB PO PRN (00:16)
[2019-03-03 00:49] LABS: Glucose,Whole Blood 261 mg/dL (75-99)
[2019-03-03] MEDS: PIPERACILLIN-TAZOBACTAM 3.375 GM in SODIUM CHLORIDE 0.9% 100 ML IVPB SCH ×3 (01:00→16:03)
[2019-03-03 01:38] LABS: Glucose,Whole Blood 239 mg/dL (75-99)
[2019-03-03 02:06] LABS: Glucose,Whole Blood 157 mg/dL (75-99)
[2019-03-03] MEDS ORDERED: Magnesium Replacement Protocol 1 EACH MISC MISCELLANE PRN (02:27)
[2019-03-03] MEDS ORDERED: Potassium Replacement Protocol 1 EACH MISC MISCELLANE PRN (02:27)
[2019-03-03] MEDS: INSULIN DETEMIR (LEVEMIR) 100 UNIT/ML SYR SQ SCH ×2 (02:50→21:03)
[2019-03-03 03:42] LABS: Glucose,Whole Blood 107 mg/dL (75-99)
[2019-03-03] MEDS: IPRATROPIUM-ALBUTEROL 3 ML NEB INHALATION SCH ×6 (03:56→22:55)
[2019-03-03 06:15] LABS: Glucose,Whole Blood 66 mg/dL (75-99)
--- NOTE | 2019-03-03 06:18 | HP ---
HISTORY AND PHYSICAL DATE OF SERVICE: 03/02/2019 CHIEF COMPLAINTS: Change in mental status. HISTORY OF PRESENT ILLNESS: This 78-year-old gentleman with a past medical history of multiple medical problems including atrial flutter, history of CHF, COPD, diabetes, hypertension, history of adenoidectomy, bladder surgery being followed by Dr. Yee Prior in the outpatient setting was complaining of change in mental status. The patient also had history of bladder cancer. The EMS brought the patient because of the change in mental status which was noted by the family. The patient also markedly elevated blood pressure and compliance is in question at this time. The patient also has some evidence of dehydration. Patient also fell this morning and the blood sugar was found to be more than 500. There is no evidence of ketoacidosis and the patient admitted for further evaluation and treatment. There is no history of any rigors or chills. The patient did have history of fever. The troponins also mildly elevated. Patient admitted for further evaluation. The patient was stuporous and unable to give a coherent history. Most of the history taken from my discussion with staff and discussion with the ER physician and review of chart at this time. The chest x-ray showed possible bibasilar infiltrate and possible left lower lobe pneumonia. PAST MEDICAL HISTORY: History of atrial flutter, CHF, COPD, diabetes mellitus, hypertension, history of musculoskeletal disorder, history of adenoidectomy, bladder surgery. MEDICATIONS: Medications prior to admission, home medications are: 1. Insulin lispro 75/25 b.i.d. 2. Metoprolol 25 mg b.i.d. 3. Zestril 40 mg daily. 4. Synthroid 88 mcg p.o. daily. 5. Lasix 40 mg p.o. b.i.d. 6. Flonase 1 spray daily. 7. Sinemet 25/100 two tablets p.o. t.i.d. 8. Amiodarone 200 mg q.a.m. 9. Ventolin HFA 2 puffs q.4 p.r.n. ALLERGIES: Allergies are ASPIRIN, NSAIDs. FAMILY HISTORY: History of bone cancer in the family. SOCIAL HISTORY: Previous history of smoking. No history of current smoking or alcohol intake. REVIEW OF SYSTEMS: Review of systems could not be taken. The patient is stuporous. PHYSICAL EXAMINATION: Pulse is 66, blood pressure 118/53, respiration 18, temperature 98.5, pulse ox 98% on 2 L. HEENT: Conjunctivae normal. Oral mucosa moist. Facial puffiness present. NECK : No jugular venous distention. No thyroid enlargement. No carotid bruit. CARDIOVASCULAR: S1, S2 muffled. No S3, no S4. RESPIRATORY: Breath sounds diminished at the bases. Bilateral scattered rhonchi and crackles. Expiratory wheezing also present. ABDOMEN: Soft, obese, nontender. LEGS: Bilateral leg edema. NERVOUS SYSTEM: Higher functions as mentioned earlier. Moves all 4 limbs. No focal deficits. LYMPHATICS: No lymphadenopathy of the neck, axillae or groin. SKIN: No ulcer, rash or bleeding. JOINTS: No active deforming arthropathy. LABS: WBC 12.6 and sodium 136. Glucose 516. Plasma lactic acid 5.3. Magnesium 1.3. Bilirubin is 1.4. Troponin 0.042. UA noted. ASSESSMENT: 1. Possible acute left lower lobe pneumonia with sepsis. 2. Change in mental status, metabolic encephalopathy, acute on chronic. 3. Diabetes mellitus type 2, uncontrolled with hyperosmolar state. 4. Possible history of noncompliance. 5. Renal failure, possibly acute on chronic. 6. Hyponatremia. 7. Increased WBC. 8. Elevated lactic acid. 9. Hypomagnesemia. 10.Troponin 0.042, indeterminate. 11.History atrial flutter. 12.History of congestive heart failure. 13.Chronic obstructive pulmonary disease. 14.Diabetes mellitus type 2. 15.Hypertension. 16.History of degenerative joint disease. 17.History of hypothyroidism. 18.History of bacteremia with Klebsiella previously with ascending cholangitis. 19.History of adenoidectomy. 20.History of anxiety. 21.History of claustrophobia. 22.Remote history of nicotine dependence. 23.Obesity with body mass index 47.3. RECOMMENDATIONS AND DISCUSSION: In this 78-year-old gentleman who presented with multiple complex medical issues, we will monitor the patient closely. Continue the current medications. Continue symptomatic treatment. Will initiate broad-spectrum IV antibiotics. I will initiate Zosyn IV and obtain the cultures. I would recommend multiple consultations with Infectious Disease and Pulmonary. Guarded prognosis because of multiple complex medical conditions. Further recommendations to follow. Otherwise resume the rest of the home medications. freezer worker to consult to evaluate the home situation. The patient had very thickened leg skin, also would apply Eucerin cream also. The prognosis is extremely guarded. Cardiology is consulted. A 2-D echo Doppler done December of this year showed ejection fraction about 50% to 60%. Otherwise, prognosis guarded further. Further recommendations to follow. See orders for further details. MMODL / IJN: [id number] /
[2019-03-03 06:35] LABS: Glucose,Whole Blood 53 mg/dL (75-99)
[2019-03-03] MEDS: INSULIN ASPART (NovoLOG) 100 UNIT/ML VIAL SQ SCH ×5 (06:49→21:03)
[2019-03-03] MEDS: CARBIDOPA-LEVODOPA 25-100 MG 1 EACH TAB PO SCH ×3 (06:53→17:12)
[2019-03-03] MEDS: LEVOTHYROXINE 88 MCG TAB PO SCH (06:53)
[2019-03-03 07:08] LABS: Glucose,Whole Blood 52 mg/dL (75-99)
[2019-03-03 07:18] LABS: Basophils # (A) 0.1 k/uL (0-0.2); Basophils % (A) 0 %; Eosinophils # (A) 0.1 k/uL (0-0.7); Eosinophils % (A) 1 %; HGB 13.3 gm/dL (13.0-17.5); Lymphocytes # (A) 1.4 k/uL (1.0-4.8); Lymphocytes % (A) 8 %; MCH 29.5 pg (25.0-35.0); MCHC 32.5 g/dL (31.0-37.0); MCV 90.8 fL (80.0-100.0); Mean Platelet Volume 9.2; Monocytes # (A) 0.6 k/uL (0-1.0); Monocytes % (A) 4 %; Neutrophils # (A) 14.8 k/uL (1.3-7.7); Neutrophils % (A) 87 %; Platelet Count 154 k/uL (150-450); RBC 4.51 m/uL (4.30-5.90); RDW 14.4 % (11.5-15.5)
[2019-03-03] MEDS ORDERED: INSULIN ASPART (NovoLOG) 100 UNIT/ML VIAL SQ SCH ×2 (07:30)
[2019-03-03 07:32] LABS: Glucose,Whole Blood 72 mg/dL (75-99)
[2019-03-03 07:55] LABS: Calcium 8.5 mg/dL (8.4-10.2); Magnesium 1.5 mg/dL (1.6-2.3); Potassium 3.9 mmol/L (3.5-5.1)
[2019-03-03] MEDS ORDERED: LISINOPRIL 20 MG TAB PO SCH (09:00)
--- NOTE | 2019-03-03 10:30 | P.CRDCN ---
History of Present Illness Consult date: 03/03/19 Requesting physician: Dorene Smith Consult reason: atrial flutter Chief complaint: Mental status changes History of present illness: This is a 78-year-old gentleman with known history of diabetes, hypertension, hyperlipidemia, COPD, paroxysmal H or fibrillation, parkinsonism, obesity, who was admitted to the hospital because of mental status changes. Cardiology consultation was requested because of an episode of atrial flutter as well as abnormality in troponin. Chest x-ray on admission showed probable basilar atelectasis or scarring. EKG showed a normal sinus rhythm with no acute changes. Blood pressure 102/48 with a heart rate in the 60s to 80s, 100% on 2 L of oxygen. White blood cell count 12.6 on admission, 17 this morning, hemoglobin 13.3, platelet count 154. Sodium 139, potassium 3.9, BUN 39 and creatinine 2.1. Glucose on admission was 516 at a 75 this morning. Plasma lactic acid on admission 5.3, magnesium 1.3, 1.5 this morning, troponin 0.042. Upon review of the patient's rhythm strips, it appears that the patient did go into atrial flutter, is morning the patient is in a sinus bradycardia with a heart rate in the 50s. At the time of my examination this morning, patient is sitting up in a chair bedside, he is unsure exactly of why he was admitted to the hospital. He denies having any chest discomfort and states his breathing is overall the same as what he usually has. He had an echo cardiac gram with Doppler study performed in December which revealed an ejection fraction of 55-60%. Patient had been on Coumadin in the past, apparently his primary care physician in [facility] had advised him he did no longer need to take Coumadin. It does appear however that the patient does have paroxysmal atrial fibrillation. Past Medical History Past Medical History: Atrial Flutter, Cancer, Heart Failure, COPD, Diabetes Mellitus, Hypertension, Musculoskeletal Disorder, Neurologic Disorder, Thyroid Disorder Additional Past Medical History / Comment(s): PT ADMITTED ON 10/27/18 WITH BACTEREMIA D/T KLEBSIELLA PNE/TRANSAMINITIS/BILIARY SLUDGE PER US. OTHERHX: HX A-FLUTTER/TACHYCARDIA- TX W/ SAL/CARDIOVERSION, HAS BLADDER CA WITH SURGERY AND BLADDER INSTILLATION OF MED FOR BLADDER CANCER, IDC WITH UTI-REMOVED, IDDM TYPE II, BILATERAL CATARACTS, ABD HERNIA. PARKINSONS, DIVERTICULITIS, EDEMA FEET/LEGS, DDD lower spine, HYPOTHYROID, PNEUMONIA WITH SEPSIS, acute renal failure d/t acute tubular necrosis d/t sepsis, possible CKD. Last Myocardial Infarction Date:: UNK History of Any Multi-Drug Resistant Organisms: None Reported Past Surgical History: Adenoidectomy, Bladder Surgery, Tonsillectomy Additional Past Surgical History / Comment(s): 2013 CARDIOVERSION, SAL. BLADDER TUMOR REMOVED,cystoscopy with bladder CA TREATMENTS, colonoscopy Past Anesthesia/Blood Transfusion Reactions: Previous Problems w/ Anesthesia Additional Past Anesthesia/Blood Transfusion Reaction / Comment(s): HX CLAUSTROPHOBIA Past Psychological History: Anxiety Additional Psychological History / Comment(s): and lives in the family home with his . Retired. No service. Pet dog in the home no recent travel Smoking Status: Former smoker Past Alcohol Use History: None Reported Additional Past Alcohol Use History / Comment(s): QUIT SMOKING 1989- WAS 3 1/2 PPD, PER PTS -PT WAS AN ALCOHOLIC, QUIT 1991. Past Drug Use History: None Reported - Past Family History Father Family Medical History: Cancer Additional Family Medical History / Comment(s): Bone cancer. Mother Family Medical History: Coronary Artery Disease (CAD) Additional Family Medical History / Comment(s): Macular degeneration Sister(s) Family Medical History: Cancer Additional Family Medical History / Comment(s): breast CA Medications and Allergies Home Medications Medication Instructions Recorded Confirmed Type Albuterol Inhaler [Ventolin Hfa 2 puff INHALATION RT-Q4H PRN 03/15/14 03/02/19 History Inhaler] Amiodarone HCl 200 mg PO QAM 04/21/14 03/02/19 History Metoprolol Tartrate 25 mg PO BID 04/21/16 03/02/19 History Carbidopa-Levodopa 25-100 mg 2 tab PO TID 07/08/16 03/02/19 History [Sinemet 25-100 mg] Furosemide [Lasix] 40 mg PO BID 10/27/18 03/02/19 History Fluticasone Nasal [place]que[place]y [Flonase 1 spray EA NOSTRIL DAILY 12/31/18 03/02/19 History Nasal Mcqueeney] Levothyroxine Sodium [Synthroid] 88 mcg PO DAILY 12/31/18 03/02/19 History Lisinopril [Zestril] 40 mg PO DAILY 12/31/18 03/02/19 History Insulin Lispro Protamin/Lispro See Protocol SQ AC-BID 03/02/19 03/02/19 History [humaLOG Mix 75-25 Kwikpen] Allergies Allergy/AdvReac Type Severity Reaction Status Date / Time aspirin Allergy Swelling Verified 03/02/19 09:59 NSAIDS (Non-Steroidal Allergy Swelling Verified 03/02/19 09:59 Anti-Inflamma Physical Exam Vitals: Vital Signs Temp Pulse Pulse Resp BP BP Pulse Ox 03/03/19 04:00 97.8 F 51 L 20 102/48 100 03/02/19 23:00 98.7 F 62 18 120/58 98 03/02/19 20:00 98.2 F 81 20 115/56 97 03/02/19 18:32 98.5 F 67 20 112/56 98 03/02/19 17:56 68 18 118/72 98 03/02/19 16:03 66 18 118/53 98 03/02/19 15:16 61 18 94/44 98 03/02/19 14:38 80 18 98/65 100 03/02/19 12:59 81 18 97/49 100 03/02/19 12:12 81 18 109/62 98 03/02/19 10:38 76 18 100/49 98 Intake and Output 03/02/19 03/03/19 03/03/19 22:59 06:59 14:59 Intake Total 3000 66.593 20 Output Total 400 1 Balance 2600 66.593 19 Intake: Amount of Fluid Infused ( 3000 ml) Intake, IV Titration 66.593 Amount Insulin Regular 100 unit 66.593 In Sodium Chloride 0.9% 100 ml @ Titrate IV .Q0M [facility] Rx#:[id number] Oral 20 Output: Urine 400 Stool 1 Other: # Voids 1 1 Weight 109.6 kg PHYSICAL EXAMINATION: GENERAL: 78-year-old gentleman in no acute distress at the time of my examination HEENT: Head is atraumatic, normocephalic. Pupils equal, round. Sclera anicteric. Conjunctiva are clear. Mucous membranes of the mouth are moist. Neck is supple. There is no elevated jugular venous pressure. No carotid br uit is heard. HEART EXAMINATION: Heart S1-S2 distant CHEST EXAMINATION:'s reveal scattered coarse rhonchi throughout with diminished air entry to the bases posteriorly ABDOMEN: Soft, obese, nontender. Bowel sounds are heard. No organomegaly noted. EXTREMITIES: 1+ peripheral pulses with evidence of chronic bilateral leg edema and venous stasis . NEUROLOGIC patient is awake, alert and oriented 2. . Results 03/03/19 06:47 03/03/19 06:47 Cardiac Enzymes 03/02/19 Range/Units 09:20 CK-MB (CK-2) 0.7 (0.0-2.4) ng/mL Troponin I 0.042 H* (0.000-0.034) ng/mL Coagulation 03/02/19 Range/Units 09:20 PT 10.2 (9.0-12.0) sec CBC 03/03/19 Range/Units 06:47 WBC 17.0 H (3.8-10.6) k/uL RBC 4.51 (4.30-5.90) m/uL Hgb 13.3 (13.0-17.5) gm/dL Hct 41.0 (39.0-53.0) % Plt Count 154 (150-450) k/uL Comprehensive Metabolic Panel 03/03/19 Range/Units 06:47 Sodium 139 (137-145) mmol/L Potassium 3.9 (3.5-5.1) mmol/L Chloride 104 (98-107) mmol/L Carbon Dioxide 27 (22-30) mmol/L BUN 39 H (9-20) mg/dL Creatinine 2.15 H (0.66-1.25) mg/dL Glucose 75 (74-99) mg/dL Calcium 8.5 (8.4-10.2) mg/dL Current Medications Generic Name Dose Route Start Last Admin Trade Name Freq PRN Reason Stop Dose Admin Acetaminophen 650 mg 03/03/19 00:16 03/03/19 01:01 Tylenol Tab PO 650 mg Q6HR PRN Administration Fever >100.3 And/ Or Pain Albuterol/Ipratropium 3 ml 03/02/19 16:00 03/03/19 09:41 Duoneb 0.5 Mg-3 Mg/3 Ml Soln INHALATION Not Given RT-Q4H [facility] Amiodarone HCl 200 mg 03/03/19 09:00 Cordarone PO QAM UMAIR Azithromycin 500 mg 03/03/19 09:00 Zithromax PO DAILY [facility] Carbidopa/Levodopa 2 each 03/02/19 17:30 03/03/19 06:53 Sinemet 25-100 PO 2 each TID-W/MEALS UMAIR Administration Fluticasone Propionate 1 spray 03/03/19 09:00 Flonase Nasal Mcqueeney EA NOSTRIL DAILY [facility] Furosemide 40 mg 03/02/19 16:00 03/02/19 16:02 Lasix PO 40 mg BID@0900,1600 UMAIR Administration Heparin Sodium (Porcine) 5,000 unit 03/02/19 21:00 03/02/19 22:39 Heparin SQ 5,000 unit Q12HR UMAIR Administration Heparin Sodium (Porcine) 5,000 unit 03/02/19 22:30 03/02/19 22:40 Heparin SQ Not Given Q12HR [facility] Insulin Human Regular 100 unit 101 mls @ 0 mls/hr 03/02/19 22:00 03/03/19 02:33 / Sodium Chloride IV 4.5 unit/hr .Q0M UMAIR 4.545 mls/hr Titration Protocol Titrate Piperacillin Sod/Tazobactam 100 mls @ 25 mls/hr 03/03/19 00:00 03/03/19 01:00 Sod 3.375 gm/ Sodium Chloride IVPB 25 mls/hr Q8HR UMA[facility] Administration Insulin Aspart 0 unit 03/03/19 07:30 03/03/19 06:49 Novolog SQ Not Given ACHS [facility] Protocol Insulin Detemir 15 unit 03/03/19 02:31 03/03/19 02:50 Levemir SQ 15 unit HS UMAIR Administration Levothyroxine Sodium 88 mcg 03/03/19 06:30 03/03/19 06:53 Synthroid PO 88 mcg DAILY@0630 [facility] Administration Metoprolol Tartrate 25 mg 03/02/19 21:00 03/02/19 22:39 Lopressor PO 25 mg BID UMAIR Administration Miscellaneous Information 1 each 03/02/19 14:53 Pneumonia Protocol Utilized PO ONCE PRN Per Protocol Miscellaneous Information 1 each 03/03/19 02:27 Magnesium Per Protocol MISCELLANE DAILY PRN Per Protocol Protocol Miscellaneous Information 1 each 03/03/19 02:27 Potassium Per Protocol MISCELLANE DAILY PRN Per Protocol Pantoprazole Sodium 40 mg 03/03/19 09:00 Protonix IVP DAILY UMA[facility] Intake and Output 03/02/19 03/03/19 03/03/19 22:59 06:59 14:59 Intake Total 3000 66.593 20 Output Total 400 1 Balance 2600 66.593 19 Intake: Amount of Fluid Infused ( 3000 ml) Intake, IV Titration 66.593 Amount Insulin Regular 100 unit 66.593 In Sodium Chloride 0.9% 100 ml @ Titrate IV .Q0M [facility] Rx#:[id number] Oral 20 Output: Urine 400 Stool 1 Other: # Voids 1 1 Weight 109.6 kg 03/03/19 06:47 03/03/19 06:47 EKG Interpretations (text) EKG shows a normal sinus rhythm with nonspecific ST-T wave changes Assessment and Plan Plan: Assessment and plan #1 mental status changes #2 sepsis with a possible acute left lower lobe pneumonia #3 diabetes, uncontrolled #4 acute on chronic renal failure #5 hypomagnesemia #6 paroxysmal atrial fibrillation/flutter #7 hyponatremia #8 COPD #9 hypertension #10 hyperlipidemia #11 bacteremia with Klebsiella #12 obesity #13 abnormality in troponin, only one troponin had been drawn, we will request 2 subsequent troponins. Abnormality likely secondary to sepsis. Plan Patient just had an echocardiogram with Doppler study performed in December, ejection fraction documented 55-60%. We will not repeat an echo on this admission. We will obtain 2 subsequent troponins . We will also discuss with the family on their arrival regarding anticoagulation with Eliquis. Further recommendations to follow DNP note has been reviewed, I agree with a documented findings and plan of care. Patient was seen and examined.
[2019-03-03] MEDS: HEPARIN SODIUM,PORCINE 5,000 UNIT/ML 1 ML VIAL SQ SCH ×2 (10:44→10:45)
[2019-03-03] MEDS: FLUTICASONE 50MCG/SPRAY NASAL 16GM EA NOSTRIL SCH (10:44)
[2019-03-03] MEDS: AZITHROMYCIN 500 MG TAB PO SCH (10:44)
[2019-03-03] MEDS: PANTOPRAZOLE 40 MG/10 ML VIAL IVP SCH (10:44)
[2019-03-03] MEDS: AMIODARONE 200 MG TAB PO SCH (11:22)
[2019-03-03] MEDS: FUROSEMIDE 40 MG TAB PO SCH ×2 (11:22→16:03)
[2019-03-03] MEDS: METOPROLOL TARTRATE 25 MG TAB PO SCH ×2 (11:23→20:53)
[2019-03-03 11:34] LABS: Glucose,Whole Blood 101 mg/dL (75-99)
--- NOTE | 2019-03-03 11:40 | XR ---
EXAMINATION TYPE: XR chest 1V DATE OF EXAM: 03/03/2019 COMPARISON: 03/02/2019 HISTORY: Pneumonia. Follow-up exam. TECHNIQUE: Single frontal view of the chest is obtained. FINDINGS: Improved aeration of the lung bases is seen. No focal consolidation, pleural effusion or p neumothorax. Cardia mediastinal silhouette is mildly enlarged, better appreciated on the prior given low lung volumes. No acute osseous pathology. IMPRESSION: Low lung volumes, however improved aeration of the lung bases in comparison the prior ex am with no residual focal consolidation.
--- NOTE | 2019-03-03 11:54 | CDI ---
Documentation Clarification Form Date: 03/03/2019 11:11:23 AM From: Laly Muñoz RN , CCDS Admit Date: 03/02/2019 2:53:00 PM Patient Name: Dayday Peterson Visit Number: [id number] Discharge Date: ATTENTION: The Clinical Documentation Specialists (CDI) and [facility] Coding Staff appreciate your assistance in clarifying documentation. Please respond to the clarification below the line at the bottom and electronically sign. The CDI & [facility] Coding staff will review the response and follow-up if needed. Please note: Queries are made part of the Legal Health Record. If you have any questions, please contact the author of this message via ITS. Dr. Dorene Smith History of congestive heart failure is documented in the H&P History/Risk Factors: 78 year old male presents to ED via EMS for decreased level of Consciousness and elevated blood sugar. Medical Hx CHF; DM2; HTN; Clinical Indicators: VS/Pulse OX: 118/53 66 98.5 18 98% ra Echocardiogram Results: per H & P A 2D echo Doppler done December of this year showed EF about 50% to 60%. Chest X Ray: Rotated exam, proable basilar atelectasis or scarring, follow up as indicated if pneumonia is suspected. Treatment: Lasix po bid; Lopressor Bid In your professional opinion, can you please clarify the acuity and type of CHF if known? * Chronic Diastolic Heart Failure * Unable to Determine * Other, please specify (Last Revision: January 2018) Chronic Diastolic Heart Failure MTDD
--- NOTE | 2019-03-03 12:11 | CDI ---
Documentation Clarification Form Date: 03/03/2019 11:58:05 AM From: Laly Muñoz RN CCDS Admit Date: 03/02/2019 2:53:00 PM Patient Name: Dayday Peterson Visit Number: [id number] Discharge Date: ATTENTION: The Clinical Documentation Specialists (CDI) and [facility] Coding Staff appreciate your assistance in clarifying documentation. Please respond to the clarification below the line at the bottom and electronically sign. The CDI & [facility] Coding staff will review the response and follow-up if needed. Please note: Queries are made part of the Legal Health Record. If you have any questions, please contact the author of this message via ITS. Dr. Dorene Smith A pressure ulcer was documented in the Nursing Wound Assessment. History/Risk Factors: 78 year old male presents to the ED via EMS with change in mental status with elevated blood glucose. Medical History COPD; CHF; Atrial Flutter; DM, HTN, Clinical Indicators: Wbc 12.6, na 136, glucose 516, Lactic acid 5.3, Location: Wound description: [place] on scrotum; Pressure Injury POA; Clover Wound Color Cyanosis Treatment: None noted Consults: ID for Sepsis Elements for accurate and compliant documentation of an ulcer: *The location/laterality of the ulcer *Etiology (decubitus/pressure, diabetic, PVD) *Stage I-IV, Unstageable, Suspected Deep Tissue Injury (To the deepest stage) *If the ulcer was present at admission (POA) or occurred after admission In your professional opinion, can you please clarify the diagnosis, location, laterality and whether present on admission (POA): Stage 1 Pressure/Decubitus Ulcer (intact skin, non-blanching redness of local area) Stage 2 Pressure/Decubitus Ulcer (Partial thickness, loss of dermis, pink wound bed) Stage 3 Pressure/Decubitus Ulcer (Full thickness tissue loss) Stage 4 Pressure/Decubitus Ulcer (Full thickness tissue loss with exposed bone, tendon, or muscle. May have slough or eschar present) Unstageable Other condition, please specify Unable to determine Please indicate etiology of pressure ulcer (if known). (Last Revision: July 2017) Unstageable *Stage I-IV, Unstageable, Suspected Deep Tissue Injury (To the deepest stage) [facility]
--- NOTE | 2019-03-03 12:18 | CDI ---
Documentation Clarification Form Date: 03/03/2019 12:12:01 PM From: Laly Muñoz RN CCDS Admit Date: 03/02/2019 2:53:00 PM Patient Name: Dayday Peterson Visit Number: [id number] Discharge Date: ATTENTION: The Clinical Documentation Specialists (CDI) and [facility] Coding Staff appreciate your assistance in clarifying documentation. Please respond to the clarification below the line at the bottom and electronically sign. The CDI & [facility] Coding staff will review the response and follow-up if needed. Please note: Queries are made part of the Legal Health Record. If you have any questions, please contact the author of this message via ITS. Dr. Dorene Smith A pressure ulcer was documented in the Nursing Wound Assessment. History/Risk Factors: 78 year old male presents to the ED via EMS with change in mental status with elevated blood glucose. Medical History COPD; CHF; Atrial Flutter; DM, HTN, Clinical Indicators: Wbc 12.6, na 136, glucose 516, Lactic acid 5.3, Location: right buttock Wound description: wound type unstageable bedsore; Pressure injury POA; pressure injury staging Unstageable; Clover/wound color Cyanosis Treatment: None noted Consults: ID for Sepsis Elements for accurate and compliant documentation of an ulcer: *The location/laterality of the ulcer *Etiology (decubitus/pressure, diabetic, PVD) *Stage I-IV, Unstageable, Suspected Deep Tissue Injury (To the deepest stage) *If the ulcer was present at admission (POA) or occurred after admission In your professional opinion, can you please clarify the diagnosis, location, laterality and whether present on admission (POA): Stage 1 Pressure/Decubitus Ulcer (intact skin, non-blanching redness of local area) Stage 2 Pressure/Decubitus Ulcer (Partial thickness, loss of dermis, pink wound bed) Stage 3 Pressure/Decubitus Ulcer (Full thickness tissue loss) Stage 4 Pressure/Decubitus Ulcer (Full thickness tissue loss with exposed bone, tendon, or muscle. May have slough or eschar present) Unstageable Other condition, please specify Unable to determine Please indicate etiology of pressure ulcer (if known). (Last Revision: July 2017) age I-IV, Unstageable, Suspected Deep Tissue Injury (To the deepest stage) MTDD
--- NOTE | 2019-03-03 12:39 | P.CONS ---
History of Present Illness - Reason for Consult Consult date: 03/03/19 Sepsis - History of Present Illness This is a 78-year-old male patient who was last seen during his hospitalization in October of this year which time he was treated for Klebsiella pneumoniae bacteremia and pneumonia and discharged home on ciprofloxacin. He was subsequently admitted in December for ascending acute cholangitis ampule stenosis. At this time, patient presents to the hospital with complaints of men colton status changes. According to his , he started staring off and doesn't make good eye contact and she knows that there is something wrong. He also had a fall at home where he slipped from a chair. He denies any injuries. He was brought in by EMS to [facility] emergency center for evaluation found to be afebrile, initial white count 12.6 and repeat 17, creatinine 2.15, blood sugar 516, lactic acid up to 5.3 with repeated 2.2. Urinalysis positive for glucose and ketones. Acetone was negative and serum alcohol less than 10. Troponin 0.042. Albumin was 3.6. AST 126, ALT 68 and alkaline phosphatase 287, ammonia level IX, CK 37. Patient remains somewhat confused during this evaluation. He apparently has not eaten very much since admission. He denies any problem with his appetite but does not like the food. He has been urinating sufficient quantities. He denies any dysuria. Has been no nausea or vomiting. Patient has had loose stools but not diarrhea. He denies any abdominal pain. No chest pain but he does have tenderness on the left lateral chest wall. No shortness of breath. Patient was started on azithromycin and Zosyn and admitted to the cardiac stepdown unit. He has been seen by cardiology as he had episode of atrial flutter currently in a sinus bradycardia and also it elevated troponins. Dr. Swan is on consult for evaluation of pneumonia. Chest x-ray reveals low lung volumes however improved aeration of the lung bases. No resi dual focal consolidation. Blood cultures status received. Review of Systems All systems: negative Constitutional: Reports daytime sleepiness, Reports fatigue, Reports malaise, Reports poor appetite, Reports weakness, Denies chills, Denies fever Eyes: denies blurred vision, denies pain Ears, nose, mouth and throat: Denies dental pain, Denies headache, Denies nasal congestion, Denies nasal discharge, Denies sore throat Cardiovascular: Denies chest pain, Denies dyspnea on exertion, Denies shortness of breath Respiratory: Denies cough, Denies cough with sputum, Denies dyspnea, Denies excessive sputum, Denies hemoptysis, Denies wheezing Gastrointestinal: Reports loss of appetite, Denies abdominal pain, Denies diarrhea, Denies nausea, Denies vomiting Genitourinary: Denies dysuria Musculoskeletal: Reports gait dysfunction, Reports muscle weakness, Denies frequent falls, Denies myalgias Integumentary: Denies pruritus, Denies rash, Denies wounds Neurological: Reports change in mentation, Reports confusion, Denies numbness, Denies weakness Psychiatric: Denies anxiety, Denies depression Endocrine: Denies fatigue, Denies weight change Past Medical History Past Medical History: Atrial Flutter, Cancer, Heart Failure, COPD, Diabetes Mellitus, Hypertension, Musculoskeletal Disorder, Neurologic Disorder, Thyroid Disorder Additional Past Medical History / Comment(s): PT ADMITTED ON 10/27/18 WITH BACTEREMIA D/T KLEBSIELLA PNE/TRANSAMINITIS/BILIARY SLUDGE PER US. OTHERHX: HX A-FLUTTER/TACHYCARDIA- TX W/ SAL/CARDIOVERSION, HAS BLADDER CA WITH SURGERY AND BLADDER INSTILLATION OF MED FOR BLADDER CANCER, IDC WITH UTI-REMOVED, IDDM TYPE II, BILATERAL CATARACTS, ABD HERNIA. PARKINSONS, DIVERTICULITIS, EDEMA FEET/LEGS, DDD lower spine, HYPOTHYROID, PNEUMONIA WITH SEPSIS, acute renal reed lure d/t acute tubular necrosis d/t sepsis, possible CKD. Last Myocardial Infarction Date:: UNK History of Any Multi-Drug Resistant Organisms: None Reported Past Surgical History: Adenoidectomy, Bladder Surgery, Tonsillectomy Additional Past Surgical History / Comment(s): 2013 CARDIOVERSION, SAL. BLADDER TUMOR REMOVED,cystoscopy with bladder CA TREATMENTS, colonoscopy Past Anesthesia/Blood Transfusion Reactions: Previous Problems w/ Anesthesia Additional Past Anesthesia/Blood Transfusion Reaction / Comm: HX CLAUSTROPHOBIA Past Psychological History: Anxiety Additional Psychological History / Comment(s): and lives in the family home with his . Retired. No service. Pet dog in the home no recent travel Smoking Status: Former smoker Past Alcohol Use History: None Reported Additional Past Alcohol Use History / Comment(s): QUIT SMOKING 1989- WAS 3 1/2 PPD, PER PTS -PT WAS AN ALCOHOLIC, QUIT 1991. Past Drug Use History: None Reported - Past Family History Father Family Medical History: Cancer Additional Family Medical History / Comment(s): Bone cancer. Mother Family Medical History: Coronary Artery Disease (CAD) Additional Family Medical History / Comment(s): Macular degeneration Sister(s) Family Medical History: Cancer Additional Family Medical History / Comment(s): breast CA Medications and Allergies Home Medications Medication Instructions Recorded Confirmed Type Albuterol Inhaler [Ventolin Hfa 2 puff INHALATION RT-Q4H PRN 03/15/14 03/02/19 History Inhaler] Amiodarone HCl 200 mg PO QAM 04/21/14 03/02/19 History Metoprolol Tartrate 25 mg PO BID 04/21/16 03/02/19 History Carbidopa-Levodopa 25-100 mg 2 tab PO TID 07/08/16 03/02/19 History [Sinemet 25-100 mg] Fluticasone Nasal Elbert [Flonase 1 spray EA NOSTRIL DAILY 12/31/18 03/02/19 History Nasal Elbert] Levothyroxine Sodium [Synthroid] 88 mcg PO DAILY 12/31/18 03/02/19 History Acetaminophen Tab [Tylenol] 650 mg PO Q6HR PRN tab 03/11/19 Rx Apixaban [Eliquis] 5 mg PO BID tab 03/11/19 Rx Furosemide [Lasix] 40 mg PO DAILY #0 03/11/19 03/02/19 Rx Insulin Detemir (Levemir) [Levemir] 15 unit SQ HS syr 03/11/19 Rx Lactulose [Cephulac] 20 gm PO BID PRN #30 ml 03/11/19 Rx Sennosides-Docusate Sodium 1 each PO DAILY PRN tab 03/11/19 Rx [Senokot-S] Vancomycin 1,750 mg IVPB Q24HR #14 bag 03/11/19 Rx cefTRIAXone [Rocephin] 2,000 mg IVPB Q24HR #14 vial 03/11/19 Rx Allergies Allergy/AdvReac Type Severity Reaction Status Date / Time aspirin Allergy Swelling Verified 03/02/19 09:59 NSAIDS (Non-Steroidal Allergy Swelling Verified 03/02/19 09:59 Anti-Inflamma Physical Exam Vitals: Vital Signs Temp Pulse Pulse Resp BP BP Pulse Ox 03/03/19 10:00 97.8 F 45 L 20 94/56 100 03/03/19 04:00 97.8 F 51 L 20 102/48 100 03/02/19 23:00 98.7 F 62 18 120/58 98 03/02/19 20:00 98.2 F 81 20 115/56 97 03/02/19 18:32 98.5 F 67 20 112/56 98 03/02/19 17:56 68 18 118/72 98 03/02/19 16:03 66 18 118/53 98 03/02/19 15:16 61 18 94/44 98 03/02/19 14:38 80 18 98/65 100 03/02/19 12:59 81 18 97/49 100 03/02/19 12:12 81 18 109/62 98 Intake and Output 03/02/19 03/03/19 03/03/19 22:59 06:59 14:59 Intake Total 3000 66.593 20 Output Total 400 2 Balance 2600 66.593 18 Intake: Amount of Fluid Infused ( 3000 ml) Intake, IV Titration 66.593 Amount Insulin Regular 100 unit 66.593 In Sodium Chloride 0.9% 100 ml @ Titrate IV .Q0M [facility] Rx#:[id number] Oral 20 Output: Urine 400 Stool 2 Other: # Voids 1 1 Weight 109.6 kg 109.6 kg Gen: This is a 78-year-old male. He is in a recliner and appears to be comfortable and in no acute distress. HEENT: Head is atraumatic, normocephalic. Pupils equal, round. Sclerae is anicteric. Oral mucous membranes are moist. Upper dentures in place. Patient's attention was and the bottom. No thrush noted. NECK: Supple. No JVD. No lymphadenopathy. No thyromegaly. LUNGS: Diminished bilaterally. No intercostal retractions. HEART: Regular rate and rhythm. No murmur. ABDOMEN: Soft. Bowel sounds are present. No masses. No tenderness. EXTREMITIES: Chronic bilateral lower extremity edema and dryness. No open ulcers at this time. Dorsalis pedis +1 bilaterally. NEUROLOGICAL: Patient is awake, alert and oriented to person and place. No focal neural deficits. Results Results: Laboratory Results WBC 17.0 k/uL (3.8-10.6) H 05/23/19 06:47 RBC 4.51 m/uL (4.30-5.90) 03/03/19 06:47 Hgb 13.3 gm/dL (13.0-17.5) 03/03/19 06:47 Hct 41.0 % (39.0-53.0) 03/03/19 06:47 MCV 90.8 fL (80.0-100.0) 03/03/19 06:47 MCH 29.5 pg (25.0-35.0) 03/03/19 06:47 MCHC 32.5 g/dL (31.0-37.0) 03/03/19 06:47 RDW 14.4 % (11.5-15.5) 03/03/19 06:47 Plt Count 154 k/uL (150-450) 03/03/19 06:47 Neutrophils % 87 % 03/03/19 06:47 Neutrophils % (Manual) 75 % 03/02/19 09:20 Band Neutrophils % 15 % 03/02/19 09:20 Lymphocytes % 8 % 03/03/19 06:47 Lymphocytes % (Manual) 5 % 03/02/19 09:20 Monocytes % 4 % 03/03/19 06:47 Monocytes % (Manual) 5 % 03/02/19 09:20 Eosinophils % 1 % 03/03/19 06:47 Basophils % 0 % 03/03/19 06:47 Basophils % (Manual) 1 % 03/02/19 09:20 Metamyelocytes % 1 % 03/02/19 09:20 Neutrophils # 14.8 k/uL (1.3-7.7) H 03/03/19 06:47 Neutrophils # (Manual) 11.30 k/uL (1.3-7.7) H 03/02/19 09:20 Lymphocytes # 1.4 k/uL (1.0-4.8) 03/03/19 06:47 Lymphocytes # (Manual) 0.63 k/uL (1.0-4.8) L 03/02/19 09:20 Monocytes # 0.6 k/uL (0-1.0) 03/03/19 06:47 Monocytes # (Manual) 0.63 k/uL (0-1.0) 03/02/19 09:20 Eosinophils # 0.1 k/uL (0-0.7) 03/03/19 06:47 Basophils # 0.1 k/uL (0-0.2) 03/03/19 06:47 Basophils # (Manual) 0.13 k/uL (0-0.2) 03/02/19 09:20 Metamyelocytes # (Man) 0.13 k/uL (0) H 03/02/19 09:20 Nucleated RBCs 0 /100 WBC (0-0) 03/02/19 09:20 Manual Slide Review Performed 03/02/19 09:20 Poikilocytosis (manual Present 03/02/19 09:20 PT 10.2 sec (9.0-12.0) 03/02/19 09:20 INR 0.9 (<1.2) 03/02/19 09:20 Sodium 139 mmol/L (137-145) 03/03/19 06:47 Potassium 3.9 mmol/L (3.5-5.1) 03/03/19 06:47 Chloride 104 mmol/L (98-107) 03/03/19 06:47 Carbon Dioxide 27 mmol/L (22-30) 03/03/19 06:47 Anion Gap 8 mmol/L 03/03/19 06:47 BUN 39 mg/dL (9-20) H 03/03/19 06:47 Creatinine 2.15 mg/dL (0.66-1.25) H 03/03/19 06:47 Est GFR (CKD-EPI)AfAm 33 (>60 ml/min/1.73 sqM) 03/03/19 06:47 Est GFR (CKD-EPI)NonAf 29 (>60 ml/min/1.73 sqM) 03/03/19 06:47 Glucose 75 mg/dL (74-99) 03/03/19 06:47 POC Glucose (mg/dL) 101 mg/dL (75-99) H 03/03/19 11:32 POC Glu Software Engineering Project Manager ID Noemi Lion 03/03/19 11:32 Lactic Ac Sepsis Rflx Y 03/03/19 07:37 Plasma Lactic Acid Riley 3.2 mmol/L (0.7-2.0) H* 03/03/19 11:13 Calcium 8.5 mg/dL (8.4-10.2) 03/03/19 06:47 Magnesium 1.5 mg/dL (1.6-2.3) L 03/03/19 06:47 Total Bilirubin 1.4 mg/dL (0.2-1.3) H 03/02/19 09:20 AST 126 U/L (17-59) H 03/02/19 09:20 ALT 68 U/L (21-72) 03/02/19 09:20 Alkaline Phosphatase 287 U/L (38-126) H 03/02/19 09:20 Ammonia 9 umol/L (<30) 03/02/19 09:20 Total Creatine Kinase 37 U/L (55-170) L 03/02/19 09:20 CK-MB (CK-2) 0.7 ng/mL (0.0-2.4) 03/02/19 09:20 CK-MB (CK-2) Rel Index 1.9 03/02/19 09:20 Troponin I 0.042 ng/mL (0.000-0.034) H* 03/02/19 09:20 Total Protein 6.2 g/dL (6.3-8.2) L 03/02/19 09:20 Albumin 3.6 g/dL (3.5-5.0) 03/02/19 09:20 Lipase 48 U/L (23-300) 03/02/19 09:20 TSH 3.610 mIU/L (0.465-4.680) 03/03/19 06:47 Urine Color Yellow 03/02/19 12:09 Urine Appearance Clear (Clear) 03/02/19 12:09 Urine pH 5.5 (5.0-8.0) 03/02/19 12:09 Ur Specific Bosler 1.029 (1.001-1.035) 03/02/19 12:09 Urine Protein Trace (Negative) H 03/02/19 12:09 Urine Glucose (UA) 4+ (Negative) H 03/02/19 12:09 Urine Ketones Trace (Negative) H 03/02/19 12:09 Urine Blood Negative (Negative) 03/02/19 12:09 Urine Nitrite Negative (Negative) 03/02/19 12:09 Urine Bilirubin Negative (Negative) 03/02/19 12:09 Urine Urobilinogen <2.0 mg/dL (<2.0) 03/02/19 12:09 Ur Leukocyte Esterase Negative (Negative) 03/02/19 12:09 Serum Alcohol <10 mg/dL 03/02/19 09:20 Acetone, Qual Negative (Negative) 03/02/19 09:20 CBC & Chem 7: 03/10/19 07:46 03/11/19 07:31 Labs: Abnormal Lab Results - Last 24 Hours (Table) 03/02/19 03/02/19 03/02/19 Range/Units 12:09 12:50 14:48 WBC (3.8-10.6) k/uL Neutrophils # (1.3-7.7) k/uL BUN (9-20) mg/dL Creatinine (0.66-1.25) mg/dL POC Glucose (mg/dL) 504 H (75-99) mg/dL Plasma Lactic Acid Riley 7.0 H* (0.7-2.0) mmol/L Magnesium (1.6-2.3) mg/dL Urine Protein Trace H (Negative) Urine Glucose (UA) 4+ H (Negative) Urine Ketones Trace H (Negative) 03/02/19 03/02/19 03/02/19 Range/Units 14:52 17:30 20:19 WBC (3.8-10.6) k/uL Neutrophils # (1.3-7.7) k/uL BUN (9-20) mg/dL Creatinine (0.66-1.25) mg/dL POC Glucose (mg/dL) 474 H 441 H (75-99) mg/dL Plasma Lactic Acid Riley 5.3 H* (0.7-2.0) mmol/L Magnesium (1.6-2.3) mg/dL Urine Protein (Negative) Urine Glucose (UA) (Negative) Urine Ketones (Negative) 03/02/19 03/02/19 03/02/19 Range/Units 20:51 22:32 23:07 WBC (3.8-10.6) k/uL Neutrophils # (1.3-7.7) k/uL BUN (9-20) mg/dL Creatinine (0.66-1.25) mg/dL POC Glucose (mg/dL) 405 H 379 H 399 H (75-99) mg/dL Plasma Lactic Acid Riley (0.7-2.0) mmol/L Magnesium (1.6-2.3) mg/dL Urine Protein (Negative) Urine Glucose (UA) (Negative) Urine Ketones (Negative) 03/02/19 03/03/19 03/03/19 Range/Units 23:41 00:10 00:37 WBC (3.8-10.6) k/uL Neutrophils # (1.3-7.7) k/uL BUN (9-20) mg/dL Creatinine (0.66-1.25) mg/dL POC Glucose (mg/dL) 332 H 305 H (75-99) mg/dL Plasma Lactic Acid Riley 6.0 H* (0.7-2.0) mmol/L Magnesium (1.6-2.3) mg/dL Urine Protein (Negative) Urine Glucose (UA) (Negative) Urine Ketones (Negative) 03/03/19 03/03/19 03/03/19 Range/Units 00:48 01:27 02:06 WBC (3.8-10.6) k/uL Neutrophils # (1.3-7.7) k/uL BUN (9-20) mg/dL Creatinine (0.66-1.25) mg/dL POC Glucose (mg/dL) 261 H 239 H 157 H (75-99) mg/dL Plasma Lactic Acid Riley (0.7-2.0) mmol/L Magnesium (1.6-2.3) mg/dL Urine Protein (Negative) Urine Glucose (UA) (Negative) Urine Ketones (Negative) 03/03/19 03/03/19 03/03/19 Range/Units 03:30 06:14 06:33 WBC (3.8-10.6) k/uL Neutrophils # (1.3-7.7) k/uL BUN (9-20) mg/dL Creatinine (0.66-1.25) mg/dL POC Glucose (mg/dL) 107 H 66 L 53 L (75-99) mg/dL Plasma Lactic Acid Riley (0.7-2.0) mmol/L Magnesium (1.6-2.3) mg/dL Urine Protein (Negative) Urine Glucose (UA) (Negative) Urine Ketones (Negative) 03/03/19 03/03/19 03/03/19 Range/Units 06:47 06:47 06:47 WBC 17.0 H (3.8-10.6) k/uL Neutrophils # 14.8 H (1.3-7.7) k/uL BUN 39 H (9-20) mg/dL Creatinine 2.15 H (0.66-1.25) mg/dL POC Glucose (mg/dL) (75-99) mg/dL Plasma Lactic Acid Riley 2.2 H* (0.7-2.0) mmol/L Magnesium 1.5 L (1.6-2.3) mg/dL Urine Protein (Negative) Urine Glucose (UA) (Negative) Urine Ketones (Negative) 03/03/19 03/03/19 03/03/19 Range/Units 07:06 07:30 11:32 WBC (3.8-10.6) k/uL Neutrophils # (1.3-7.7) k/uL BUN (9-20) mg/dL Creatinine (0.66-1.25) mg/dL POC Glucose (mg/dL) 52 L 72 L 101 H (75-99) mg/dL Plasma Lactic Acid Riley (0.7-2.0) mmol/L Magnesium (1.6-2.3) mg/dL Urine Protein (Negative) Urine Glucose (UA) (Negative) Urine Ketones (Negative) Assessment and Plan Plan: This is a 78-year-old male who presents to hospital with mental status changes, metabolic encephalopathy, sepsis with possible left lower lobe pneumonia, acute kidney injury, uncontrolled diabetes, paroxysmal atrial flutter, recent treatment for cholangitis. He has previous history of Klebsiella bacteremia. Patient is currently on azithromycin and Zosyn. Blood cultures status received. Continue supportive care. Further recommendations as patient progresses. The above dictated assessment and findings were discussed with Dr. Childs. The impression and plan of care have been directed as dictated. Buffy Hamilton nurse practitioner acting as scribe for Dr. Childs.
[2019-03-03 16:49] LABS: Glucose,Whole Blood 129 mg/dL (75-99)
--- NOTE | 2019-03-03 18:02 | PN ---
PROGRESS NOTE DATE OF SERVICE: 03/03/2019 HISTORY: This 78-year-old gentleman who was admitted with acute left lower lobe pneumonia with possible sepsis is being closely monitored. Patient also had change in mental status. The patient was started on IV antibiotics and Infectious Disease also following the patient closely. The patient recently had a Klebsiella pneumonia secondary from ascending cholangitis apparently. PAST MEDICAL HISTORY: Reviewed. REVIEW OF SYSTEMS: CARDIOVASCULAR: No angina or palpitations. RESPIRATORY: As mentioned earlier. GI no nausea or vomiting. no dysuria. CENTRAL NERVOUS SYSTEM: No numbness, weakness. CURRENT MEDICATIONS: Reviewed and include: 1. Tylenol 650 q.6h p.r.n. 2. DuoNeb q.i.d. and p.r.n. 3. Cordarone 200 mg q.a.m. 4. Eliquis 5 mg p.o. b.i.d. 5. Zithromax 500 mg p.o. 6. 2 tablets p.o. t.i.d. 7. Flonase nasal spray daily. 8. Lasix 40 mg p.o. b.i.d. 9. NovoLog scale. 10.Levemir 15 units subcu q.h.s. 11.Synthroid 88 mcg p.o. 12.Lopressor 25 mg p.o. b.i.d. 13.Protonix 40 mg IV daily. 14.Zosyn 3.375 IV q.8h. PHYSICAL EXAM: GENERAL: Patient is alert, oriented x3. VITAL SIGNS: Pulse is 52, blood pressure 119/50, respiration 20, temperature 98 degrees, pulse ox 100 percent on 2 L. HEENT is conjunctivae normal. NECK: No jugular venous distention. CARDIAC: S1, S2 muffled. RESPIRATIONS: Breath sounds diminished in the bases. Bilateral scattered rhonchi and crackles. Expiratory wheezing also present. ABDOMEN: Soft, nontender. LEGS are no edema, no swelling. CENTRAL NERVOUS SYSTEM: No focal deficits. LABS: WBC 17, hemoglobin 13.2, sodium 139, potassium 3.8, creatinine is 2.15. ASSESSMENT: 1. Acute left lower pneumonia possibly gram-negative with sepsis present on admission. 2. Change in mental status, acute metabolic encephalopathy, acute on chronic metabolic encephalopathy. 3. Diabetes mellitus type 2, uncontrolled with hyperosmotic state. 4. History of noncompliance. 5. Renal failure. Possible acute on chronic. 6. Hyponatremia. 7. Increased WBC. 8. Elevated lactic acid. 9. Hypomagnesemia. 10.Troponin 0.042, indeterminate. 11.History of atrial flutter. 12.History of congestive heart failure. 13.History of chronic obstructive pulmonary disease. 14.Diabetes mellitus type 2. 15.Hypertension. 16.History of degenerative joint disease. 17.History of hypothyroidism. 18.History of bacteremia with Klebsiella previously with ascending cholangitis. 19.History of adenoidectomy. 20.History of anxiety. 21.History of claustrophobia. 22.Remote history of nicotine dependence. 23.Obesity with body mass index of 47.3. 24.FULL CODE. RECOMMENDATIONS AND DISCUSSION: In this 78-year-old gentleman who presented with multiple complex medical issues, we will monitor the patient closely. Continue the current medications, management and continue symptomatic treatment. Continue with broad-spectrum IV antibiotics. The patient is started on Zosyn. Infectious disease evaluation. Follow the cultures. So far the early cultures showed blood cultures showed gram-negative back bacilli. We will continue to monitor. Lactic acid is 3.2. Magnesium is 1.5. We will replace magnesium using protocol. Otherwise, prognosis guarded because of multiple complex medical issues. Further recommendations to follow. MMODL / IJN: [id number] /
--- NOTE | 2019-03-03 18:57 | P.CNPUL ---
History of Present Illness Consult date: 03/03/19 Requesting physician: Dorene Smith Reason for consult: other Chief complaint: Altered mentation, hyperglycemia, falls at home, weakness History of present illness: This is a 78-year-old white male patient of Dr. Wallis, with past medical history bladder cancer status post resection and bladder instillation, chronic congestive heart failure, COPD, diabetes mellitus, hypertension, hypothyroidism, history of atrial flutter, status post cardioversion, Parkinson's disease. Patient was recently hospitalized in December 2018 for descending acute cholangitis, ampullary stenosis with sepsis. Patient underwent ERCP with cholangiogram which revealed a stenotic ampulla and no sludge or stones. He un derwent a sphincterotomy and balloon sweep, he was medically treated, improved and was discharged home with oral antibiotics and instructions to follow up with GI in surgery services. On 03/02/2019 patient presented to the emergency department per EMS for decreased level of consciousness, found to have markedly elevated blood sugar, dehydration, and weakness. Chest x-ray showed probable basilar atelectasis or scarring. Lab work on admission showed white blood cell count of 12.6, hemoglobin of 14.2, serum sodium 136, potassium is 3.9, BUN of 31 creatinine is 2.05, and patient previously had normal renal function at discharge in December. Glucose was elevated at 516, plasma lactic acid was in itially at 2.4, it did peak at 7.0 and subsequently came down to 3.2 with IV hydration. Serum magnesium was 1.3, total bilirubin was 1.4, AST was 126, ALT was 68, alkaline phosphatase was 287, troponin was 0.042, lipase was within normal limits at 48, urinalysis showed 4+ glucose and trace ketones, but negative for any signs of infection. Alcohol level was less than 10, and acetone level was negative. Patient denied any pulmonary complaints, denied any cough or congestion, did any chest pain, denied any difficulty breathing. He was started on broad-spectrum antibiotics including Zithromax and Rocephin, and later on the Rocephin was switched to Zosyn. We are seeing this patient in consultation for suspicion of underlying pneumonia. Blood culture shows gram- negative bacilli, final cultures pending, no sputum culture was collected, patient is not producing any sputum. Chest x-ray today was reviewed, and showed low lung volumes, but improved aeration of the lung bases, no residual focal consolidation. Review of Systems All systems: negative Constitutional: Reports fatigue, Reports lethargy, Reports weakness, Denies chills, Denies fever Eyes: denies blurred vision, denies pain Ears, nose, mouth and throat: Denies headache, Denies sore throat Cardiovascular: Denies chest pain, Denies shortness of breath Respiratory: Denies cough Gastrointestinal: Denies abdominal pain, Denies diarrhea, Denies nausea, Denies vomiting Musculoskeletal: Denies myalgias Integumentary: Denies pruritus, Denies rash Neurological: Denies numbness, Denies weakness Psychiatric: Denies anxiety, Denies depression Endocrine: Denies fatigue, Denies weight change Past Medical History Past Medical History: Atrial Flutter, Cancer, Heart Failure, COPD, Diabetes Mellitus, Hypertension, Musculoskeletal Disorder, Neurologic Disorder, Thyroid Disorder Additional Past Medical History / Comment(s): PT ADMITTED ON 10/27/18 WITH BACTEREMIA D/T KLEBSIELLA PNE/TRANSAMINITIS/BILIARY SLUDGE PER US. OTHERHX: HX A-FLUTTER/TACHYCARDIA- TX W/ SAL/CARDIOVERSION, HAS BLADDER CA WITH SURGERY AND BLADDER INSTILLATION OF MED FOR BLADDER CANCER, IDC WITH UTI-REMOVED, IDDM TYPE II, BILATERAL CATARACTS, ABD HERNIA. PARKINSONS, DIVERTICULITIS, EDEMA FEET/LEGS, DDD lower spine, HYPOTHYROID, PNEUMONIA WITH SEPSIS, acute renal failure d/t acute tubular necrosis d/t sepsis, possible CKD. Last Myocardial Infarction Date:: UNK History of Any Multi-Drug Resistant Organisms: None Reported Past Surgical History: Adenoidectomy, Bladder Surgery, Tonsillectomy Additional Past Surgical History / Comment(s): 2013 CARDIOVERSION, SAL. BLADDER TUMOR REMOVED,cystoscopy with bladder CA TREATMENTS, colonoscopy Past Anesthesia/Blood Transfusion Reactions: Previous Problems w/ Anesthesia Additional Past Anesthesia/Blood Transfusion Reaction / Comment(s): HX CLAUSTROPHOBIA Past Psychological History: Anxiety Additional Psychological History / Comment(s): and lives in the family home with his . Retired. No service. Pet dog in the home no recent travel Smoking Status: Former smoker Past Alcohol Use History: None Reported Additional Past Alcohol Use History / Comment(s): QUIT SMOKING 1989- WAS 3 1/2 PPD, PER PTS -PT WAS AN ALCOHOLIC, QUIT 1991. Past Drug Use History: None Reported - Past Family History Father Family Medical History: Cancer Additional Family Medical History / Comment(s): Bone cancer. Mother Family Medical History: Coronary Artery Disease (CAD) Additional Family Medical History / Comment(s): Macular degeneration Sister(s) Family Medical History: Cancer Additional Family Medical History / Comment(s): breast CA Medications and Allergies Home Medications Medication Instructions Recorded Confirmed Type Albuterol Inhaler [Ventolin Hfa 2 puff INHALATION RT-Q4H PRN 03/15/14 03/02/19 History Inhaler] Amiodarone HCl 200 mg PO QAM 04/21/14 03/02/19 History Metoprolol Tartrate 25 mg PO BID 04/21/16 03/02/19 History Carbidopa-Levodopa 25-100 mg 2 tab PO TID 07/08/16 03/02/19 History [Sinemet 25-100 mg] Furosemide [Lasix] 40 mg PO BID 10/27/18 03/02/19 History Fluticasone Nasal [place] [Flonase 1 spray EA NOSTRIL DAILY 12/31/18 03/02/19 History Nasal [place]] Levothyroxine Sodium [Synthroid] 88 mcg PO DAILY 12/31/18 03/02/19 History Lisinopril [Zestril] 40 mg PO DAILY 12/31/18 03/02/19 History Insulin Lispro Protamin/Lispro See Protocol SQ AC-BID 03/02/19 03/02/19 History [humaLOG Mix 75-25 Kwikpen] Allergies Allergy/AdvReac Type Severity Reaction Status Date / Time aspirin Allergy Swelling Verified 03/02/19 09:59 NSAIDS (Non-Steroidal Allergy Swelling Verified 03/02/19 09:59 Anti-Inflamma Physical Exam Vitals: Vital Signs Temp Pulse Resp BP Pulse Ox 03/03/19 16:00 97.4 F L 55 L 20 119/54 100 03/03/19 12:00 98 F 52 L 20 119/50 100 03/03/19 10:00 97.8 F 45 L 20 94/56 100 03/03/19 04:00 97.8 F 51 L 20 102/48 100 03/02/19 23:00 98.7 F 62 18 120/58 98 03/02/19 20:00 98.2 F 81 20 115/56 97 Intake and Output 03/03/19 03/03/19 03/03/19 06:59 14:59 22:59 Intake Total 66.593 260 220 Output Total 2 Balance 66.593 258 220 Intake: Intake, IV Titration 66.593 100 Amount Insulin Regular 100 unit 66.593 In Sodium Chloride 0.9% 100 ml @ Titrate IV .Q0M [facility] Rx#:[id number] Piperacillin-Tazobactam 3 100 .375 gm In Sodium Chloride 0.9% 100 ml @ 25 mls/hr IVPB Q8HR [facility] Rx# :[id number] Oral 260 120 Output: Stool 2 Other: # Voids 1 Weight 109.6 kg 109.6 kg GENERAL EXAM: Alert, pleasant, obese 78-year-old white male sitting in the recliner currently on 2 L of oxygen with a pulse ox of 100% comfortable in no apparent distress. HEAD: Normocephalic/atraumatic. EYES: Normal reaction of pupils, equal size. Conjunctiva pink, sclera white. NOSE: Clear with pink turbinates. THROAT: No erythema or exudates. NECK: No masses, no JVD, no thyroid enlargement, no adenopathy. CHEST: No chest wall deformity. Symmetrical expansion. LUNGS: Equal air entry with no crackles, wheeze, rhonchi or dullness. CVS: Regular rate and rhythm, normal S1 and S2, no gallops, no murmurs, no rubs ABDOMEN: Soft, nontender, obese. No hepatosplenomegaly, normal bowel sounds, no guarding or rigidity. EXTREMITIES: No clubbing, chronic lower extremity edema, nonpitting, with the dry flaky skin, no cyanosis, 2+ pulses and upper and lower extremities. MUSCULOSKELETAL: Muscle strength and tone normal. SPINE: No scoliosis or deformity SKIN: No rashes CENTRAL NERVOUS SYSTEM: Alert and oriented -3. No focal deficits, tone is norm al in all 4 extremities. PSYCHIATRIC: Alert and oriented -3. Appropriate affect. Intact judgment and insight. Results - Laboratory Findings CBC and BMP: 03/03/19 06:47 03/03/19 06:47 PT/INR, D-dimer PT 10.2 sec (9.0-12.0) 03/02/19 09:20 INR 0.9 (<1.2) 03/02/19 09:20 Abnormal lab findings: Abnormal Labs 03/02/19 03/02/19 03/02/19 09:20 09:20 09:20 WBC Neutrophils # Neutrophils # (Manual) Lymphocytes # (Manual) Metamyelocytes # (Man) Sodium 136 L BUN 31 H Creatinine 2.05 H Glucose 516 H* POC Glucose (mg/dL) Plasma Lactic Acid Riley 2.4 H* Magnesium 1.3 L Total Bilirubin 1.4 H AST 126 H Alkaline Phosphatase 287 H Total Creatine Kinase 37 L Troponin I 0.042 H* Total Protein 6.2 L Urine Protein Urine Glucose (UA) Urine Ketones 03/02/19 03/02/19 03/02/19 09:20 09:24 12:09 WBC 12.6 H Neutrophils # Neutrophils # (Manual) 11.30 H Lymphocytes # (Manual) 0.63 L Metamyelocytes # (Man) 0.13 H Sodium BUN Creatinine Glucose POC Glucose (mg/dL) 492 H Plasma Lactic Acid Riley Magnesium Total Bilirubin AST Alkaline Phosphatase Total Creatine Kinase Troponin I Total Protein Urine Protein Trace H Urine Glucose (UA) 4+ H Urine Ketones Trace H 03/02/19 03/02/19 03/02/19 12:50 14:48 14:52 WBC Neutrophils # Neutrophils # (Manual) Lymphocytes # (Manual) Metamyelocytes # (Man) Sodium BUN Creatinine Glucose POC Glucose (mg/dL) 504 H 474 H Plasma Lactic Acid Riley 7.0 H* Magnesium Total Bilirubin AST Alkaline Phosphatase Total Creatine Kinase Troponin I Total Protein Urine Protein Urine Glucose (UA) Urine Ketones 03/02/19 03/02/19 03/02/19 17:30 20:19 20:51 WBC Neutrophils # Neutrophils # (Manual) Lymphocytes # (Manual) Metamyelocytes # (Man) Sodium BUN Creatinine Glucose POC Glucose (mg/dL) 441 H 405 H Plasma Lactic Acid Riley 5.3 H* Magnesium Total Bilirubin AST Alkaline Phosphatase Total Creatine Kinase Troponin I Total Protein Urine Protein Urine Glucose (UA) Urine Ketones 03/02/19 03/02/19 03/02/19 22:32 23:07 23:41 WBC Neutrophils # Neutrophils # (Manual) Lymphocytes # (Manual) Metamyelocytes # (Man) Sodium BUN Creatinine Glucose POC Glucose (mg/dL) 379 H 399 H 332 H Plasma Lactic Acid Riley Magnesium Total Bilirubin AST Alkaline Phosphatase Total Creatine Kinase Troponin I Total Protein Urine Protein Urine Glucose (UA) Urine Ketones 03/03/19 03/03/19 03/03/19 00:10 00:37 00:48 WBC Neutrophils # Neutrophils # (Manual) Lymphocytes # (Manual) Metamyelocytes # (Man) Sodium BUN Creatinine Glucose POC Glucose (mg/dL) 305 H 261 H Plasma Lactic Acid Riley 6.0 H* Magnesium Total Bilirubin AST Alkaline Phosphatase Total Creatine Kinase Troponin I Total Protein Urine Protein Urine Glucose (UA) Urine Ketones 03/03/19 03/03/19 03/03/19 01:27 02:06 03:30 WBC Neutrophils # Neutrophils # (Manual) Lymphocytes # (Manual) Metamyelocytes # (Man) Sodium BUN Creatinine Glucose POC Glucose (mg/dL) 239 H 157 H 107 H Plasma Lactic Acid Riley Magnesium Total Bilirubin AST Alkaline Phosphatase Total Creatine Kinase Troponin I Total Protein Urine Protein Urine Glucose (UA) Urine Ketones 03/03/19 03/03/19 03/03/19 06:14 06:33 06:47 WBC 17.0 H Neutrophils # 14.8 H Neutrophils # (Manual) Lymphocytes # (Manual) Metamyelocytes # (Man) Sodium BUN Creatinine Glucose POC Glucose (mg/dL) 66 L 53 L Plasma Lactic Acid Riley Magnesium Total Bilirubin AST Alkaline Phosphatase Total Creatine Kinase Troponin I Total Protein Urine Protein Urine Glucose (UA) Urine Ketones 03/03/19 03/03/19 03/03/19 06:47 06:47 07:06 WBC Neutrophils # Neutrophils # (Manual) Lymphocytes # (Manual) Metamyelocytes # (Man) Sodium BUN 39 H Creatinine 2.15 H Glucose POC Glucose (mg/dL) 52 L Plasma Lactic Acid Riley 2.2 H* Magnesium 1.5 L Total Bilirubin AST Alkaline Phosphatase Total Creatine Kinase Troponin I Total Protein Urine Protein Urine Glucose (UA) Urine Ketones 03/03/19 03/03/19 03/03/19 07:30 11:13 11:32 WBC Neutrophils # Neutrophils # (Manual) Lymphocytes # (Manual) Metamyelocytes # (Man) Sodium BUN Creatinine Glucose POC Glucose (mg/dL) 72 L 101 H Plasma Lactic Acid Riley 3.2 H* Magnesium Total Bilirubin AST Alkaline Phosphatase Total Creatine Kinase Troponin I Total Protein Urine Protein Urine Glucose (UA) Urine Ketones 03/03/19 16:48 WBC Neutrophils # Neutrophils # (Manual) Lymphocytes # (Manual) Metamyelocytes # (Man) Sodium BUN Creatinine Glucose POC Glucose (mg/dL) 129 H Plasma Lactic Acid Riley Magnesium Total Bilirubin AST Alkaline Phosphatase Total Creatine Kinase Troponin I Total Protein Urine Protein Urine Glucose (UA) Urine Ketones - Diagnostic Findings Chest x-ray: report reviewed, image reviewed Assessment and Plan Plan: Assessment #1. Acute sepsis, gram negative bacteremia and the possibilities include cholangitis, doubt underlying pneumonia #2. Altered mentation, weakness, and lactic acidosis related to the above, improved with IV hydration and broad-spectrum antibiotics #3. Hyperglycemia, dehydration, acute kidney injury, improved with IV hydration #4. Diabetes mellitus type 2 #5. Hypomagnesemia #6. Mild elevation of troponin likely related to sepsis #7. He of atrial flutter status post SAL and cardioversion #8. History of Congestive heart failure #9. Hypothyroidism #10. Previous history of bacteremia with Klebsiella #11. Hospitalization in December 2018 for sepsis related to ascending cholangitis, post ERCP cholangiogram which revealed a stenotic ampulla and patient underwent sphincterotomy and balloon sweep #12. Hypertention #13. COPD with previous history of smoking Plan: Continue current antibiotic coverage, with the results of the final cultures, we will obtain ultrasound of the gallbladder, and CT scan of the chest, doubt underlying pneumonia, patient denies any pulmonary complaints, no cough, no con gestion, no wheezing, lung sounds are clear. We will continue to follow I performed a history & physical examination of the patient and discussed their management with my nurse practitioner, Abril Ackerman. I reviewed the nurse practitioner's note and agree with the documented findings and plan of care. Lung sounds are positive for clear lung sounds. The findings and the impression was discussed with the patient. I attest to the documentation by the nurse practitioner. Time with Patient: Greater than 30
--- NOTE | 2019-03-03 20:12 | CT ---
EXAMINATION TYPE: CT chest wo con DATE OF EXAM: 03/03/2019 COMPARISON: None HISTORY: Dyspnea CT DLP: 551.5 mGycm. Automated Exposure Control for Dose Reduction was Utilized. TECHNIQUE: CT scan of the thorax is performed without IV contrast. FINDINGS: AIRWAYS, LUNGS, PLEURAL SPACES: The lungs are clear and well-expanded bilaterally. There is no pleura l effusion or pneumothorax seen. The tracheobronchial tree is patent. MEDIASTINUM: Lack of IV contrast is noted to limit evaluation for mediastinal and especially hilar ad enopathy. There are no definitive greater than 1 cm hilar or mediastinal lymph nodes. There is mild/m oderate cardiomegaly with coronary calcifications. No pericardial effusion. OTHER: No additional significant abnormality is seen. IMPRESSION: No acute process.
[2019-03-03] MEDS: APIXABAN 5 MG TAB PO SCH (20:53)
[2019-03-03 20:54] LABS: Glucose,Whole Blood 200 mg/dL (75-99)
--- NOTE | 2019-03-03 23:04 | P.CON ---
Consult Note - . Consult date: 03/03/19
[2019-03-04] MEDS: PIPERACILLIN-TAZOBACTAM 3.375 GM in SODIUM CHLORIDE 0.9% 100 ML IVPB SCH ×4 (00:26→23:45)
[2019-03-04] MEDS: IPRATROPIUM-ALBUTEROL 3 ML NEB INHALATION SCH ×5 (01:58→19:43)
[2019-03-04 06:14] LABS: Glucose,Whole Blood 157 mg/dL (75-99)
[2019-03-04 06:20] LABS: Basophils % (A) 0 %; Eosinophils # (A) 0.1 k/uL (0-0.7); Eosinophils % (A) 2 %; HCT 36.4 % (39.0-53.0); HGB 11.8 gm/dL (13.0-17.5); Lymphocytes # (A) 0.8 k/uL (1.0-4.8); Lymphocytes % (A) 10 %; MCH 29.2 pg (25.0-35.0); MCHC 32.5 g/dL (31.0-37.0); MCV 89.8 fL (80.0-100.0); Mean Platelet Volume 8.8; Monocytes # (A) 0.4 k/uL (0-1.0); Monocytes % (A) 5 %; Neutrophils # (A) 6.7 k/uL (1.3-7.7); Neutrophils % (A) 83 %; Platelet Count 119 k/uL (150-450); RBC 4.05 m/uL (4.30-5.90); WBC 8.1 k/uL (3.8-10.6)
[2019-03-04 06:32] LABS: Calcium 7.9 mg/dL (8.4-10.2)
[2019-03-04 06:37] LABS: Potassium 3.9 mmol/L (3.5-5.1)
[2019-03-04 06:38] LABS: Magnesium 1.6 mg/dL (1.6-2.3)
[2019-03-04] MEDS: LEVOTHYROXINE 88 MCG TAB PO SCH (06:57)
[2019-03-04] MEDS: INSULIN ASPART (NovoLOG) 100 UNIT/ML VIAL SQ SCH ×4 (06:57→21:00)
[2019-03-04] MEDS: CARBIDOPA-LEVODOPA 25-100 MG 1 EACH TAB PO SCH ×3 (06:57→16:40)
[2019-03-04] MEDS: APIXABAN 5 MG TAB PO SCH ×2 (08:18→20:02)
[2019-03-04] MEDS: FLUTICASONE 50MCG/SPRAY NASAL 16GM EA NOSTRIL SCH (08:18)
[2019-03-04] MEDS: AZITHROMYCIN 500 MG TAB PO SCH (08:18)
[2019-03-04] MEDS: PANTOPRAZOLE 40 MG/10 ML VIAL IVP SCH (08:18)
--- NOTE | 2019-03-04 09:17 | US ---
EXAMINATION TYPE: US gallbladder DATE OF EXAM: 03/04/2019 COMPARISON: US 10/27 & 12/31 2018 CLINICAL HISTORY: rule out cholangitis. EXAM MEASUREMENTS: Liver Length: 22.6 cm Gallbladder Wall: 0.5 cm CBD: 1.6 cm Right Kidney: 12.2 x 6.3 x 5.9 cm Pancreas: not visualized due to midline bowel gas Liver: enlarged at 22.6 cm . No biliary dilatation or biliary wall thickening is evident. Gallbladder: distended at 13.7 cm, thick sludge noted. Evidence for sonographic Baez's sign: No CBD: dilated at 1.6 cm Right Kidney: No hydronephrosis or masses seen IMPRESSION: 1. Gallbladder is filled with sludge is somewhat distended. Wall thickening is present. Common bile d uct is dilated. Clinical correlation is recommended for acute cholecystitis.
[2019-03-04] MEDS: AMIODARONE 200 MG TAB PO SCH (10:11)
[2019-03-04] MEDS: FUROSEMIDE 40 MG TAB PO SCH ×2 (10:11→16:40)
[2019-03-04] MEDS: METOPROLOL TARTRATE 25 MG TAB PO SCH ×2 (10:11→20:01)
[2019-03-04 11:48] LABS: Glucose,Whole Blood 128 mg/dL (75-99)
--- NOTE | 2019-03-04 14:16 | P.PN ---
Subjective Progress Note Date: 03/04/19 This is a 78-year-old gentleman with known history of diabetes, hypertension, hyperlipidemia, COPD, paroxysmal H or fibrillation, parkinsonism, obesity, who was admitted to the hospital because of mental status changes. Cardiology consultation was requested because of an episode of atrial flutter as well as abnormality in troponin. Chest x-ray on admission showed probable basilar atelectasis or scarring. EKG showed a normal sinus rhythm with no acute changes. Blood pressure 102/48 with a heart rate in the 60s to 80s, 100% on 2 L of oxygen. White blood cell count 12.6 on admission, 17 this morning, hemoglobin 13.3, platelet count 154. Sodium 139, potassium 3.9, BUN 39 and creatinine 2.1. Glucose on admission was 516 at a 75 this morning. Plasma lactic acid on admission 5.3, magnesium 1.3, 1.5 this morning, troponin 0.042. Upon review of the patient's rhythm strips, it appears that the patient did go into atrial flutter, is morning the patient is in a sinus bradycardia with a heart rate in the 50s. At the time of my examination this morning, patient is sitting up in a chair bedside, he is unsure exactly of why he was admitted to the hospital. He denies having any chest discomfort and states his breathing is overall the same as what he usually has. He had an echocardiogram with Doppler study performed in December which revealed an ejection fraction of 55-60%. Patient had been on Coumadin in the past, apparently his primary care physician in [facility] had advised him he did no longer need to take Coumadin. It does appear however that the patient does have paroxysmal atrial fibrillation. 03/04/2019 Patient was seen and examined this morning, blood pressure 142/50 with a heart rate in the 50s, 99% on room air. White blood cell count 8.1, hemoglobin 11.8, platelet count 119. Sodium 137, potassium 3.9, BUN 35 and creatinine 1.5, magnesium 1.6. Objective - Vital Signs Vital signs: Vital Signs Temp 97.6 F 03/04/19 11:33 Pulse 53 L 03/04/19 11:33 Resp 18 03/04/19 11:33 BP 142/56 03/04/19 11:33 Pulse Ox 99 03/04/19 11:33 Intake & Output 03/03/19 03/04/19 03/04/19 18:59 06:59 18:59 Intake Total 480 298 Output Total 2 1 Balance 478 297 Weight 109.6 kg 109.6 kg Intake: Intake, IV Titration 100 Amount Piperacillin-Tazobactam 3 100 .375 gm In Sodium Chloride 0.9% 100 ml @ 25 mls/hr IVPB Q8HR [facility] Rx# :[id number] Oral 380 298 Output: Stool 2 1 Other: # Voids 1 1 - Exam PHYSICAL EXAMINATION: GENERAL: 78-year-old gentleman in no acute distress at the time of my examination HEENT: Head is atraumatic, normocephalic. Pupils equal, round. Sclera anicteric. Conjunctiva are clear. Mucous membranes of the mouth are moist. Neck is supple. There is no elevated jugular venous pressure. No carotid bruit is heard. HEART EXAMINATION: Heart S1-S2 distant CHEST EXAMINATION:'s reveal scattered coarse rhonchi throughout with diminished air entry to the bases posteriorly ABDOMEN: Soft, obese, nontender. Bowel sounds are heard. No organomegaly noted. EXTREMITIES: 1+ peripheral pulses with evidence of chronic bilateral leg edema and venous stasis . NEUROLOGIC patient is awake, alert and oriented 2. - Labs CBC & Chem 7: 03/04/19 06:05 03/04/19 06:05 Labs: Abnormal Lab Results - Last 24 Hours (Table) 03/03/19 03/03/19 03/04/19 Range/Units 16:48 20:51 06:05 RBC 4.05 L (4.30-5.90) m/uL Hgb 11.8 L (13.0-17.5) gm/dL Hct 36.4 L (39.0-53.0) % Plt Count 119 L (150-450) k/uL Lymphocytes # 0.8 L (1.0-4.8) k/uL BUN (9-20) mg/dL Creatinine (0.66-1.25) mg/dL Glucose (74-99) mg/dL POC Glucose (mg/dL) 129 H 200 H (75-99) mg/dL Calcium (8.4-10.2) mg/dL 03/04/19 03/04/19 03/04/19 Range/Units 06:05 06:09 11:33 RBC (4.30-5.90) m/uL Hgb (13.0-17.5) gm/dL Hct (39.0-53.0) % Plt Count (150-450) k/uL Lymphocytes # (1.0-4.8) k/uL BUN 35 H (9-20) mg/dL Creatinine 1.58 H (0.66-1.25) mg/dL Glucose 159 H (74-99) mg/dL POC Glucose (mg/dL) 157 H 128 H (75-99) mg/dL Calcium 7.9 L (8.4-10.2) mg/dL Microbiology - Last 24 Hours (Table) 03/02/19 09:28 Blood Culture Gram Stain - Final Blood Blood Culture - Final Escherichia coli 03/02/19 16:09 Blood Culture - Preliminary Blood No Growth after 24 hours 03/02/19 09:28 Blood Culture - Final Blood Assessment and Plan Plan: Assessment and plan #1 mental status changes #2 sepsis with a possible acute left lower lobe pneumonia #3 diabetes, uncontrolled #4 acute on chronic renal failure #5 hypomagnesemia #6 paroxysmal atrial fibrillation/flutter #7 hyponatremia #8 COPD #9 hypertension #10 hyperlipidemia #11 bacteremia with Klebsiella #12 obesity #13 abnormality in troponin, only one troponin had been drawn, we will request 2 subsequent troponins. Abnormality likely secondary to sepsis. Plan From cardiology's perspective, we'll recommend to continue current medications including anticoagulation with Eliquis 5 twice a day. We will follow this patient along with you now on an as-needed basis only, please don't hesitate to call if you have any questions. DNP note has been reviewed, I agree with a documented findings and plan of care. Patient was seen and examined.
--- NOTE | 2019-03-04 15:43 | P.PN ---
Subjective Progress Note Date: 03/04/19 Principal diagnosis: Altered mentation, hyperglycemia, falls at home, weakness This is a 78-year-old white male patient of Dr. Wallis, with past medical history bladder cancer status post resection and bladder instillation, chronic congestive heart failure, COPD, diabetes mellitus, hypertension, hypothyroidism, history of atrial flutter, status post cardioversion, Parkinson's disease. Patient was recently hospitalized in December 2018 for descending acute cholangitis, ampullary stenosis with sepsis. Patient underwent ERCP with cholangiogram which revealed a stenotic ampulla and no sludge or stones. He underwent a sphincterotomy and balloon sweep, he was medically treated, improved and was discharged home with oral antibiotics and instructions to follow up with GI in surgery services. On 03/02/2019 patient presented to the emergency department per EMS for decreased level of consciousness, found to have markedly elevated blood sugar, dehydration, and weakness. Chest x-ray showed probable basilar atelectasis or scarring. Lab work on admission showed white blood cell count of 12.6, hemoglobin of 14.2, serum sodium 136, potassium is 3.9, BUN of 31 creatinine is 2.05, and patient previously had normal renal function at discharge in December. Glucose was elevated at 516, plasma lactic acid was initially at 2.4, it did peak at 7.0 and subsequently came down to 3.2 with IV hydration. Serum magnesium was 1.3, total bilirubin was 1.4, AST was 126, ALT was 68, alkaline phosphatase was 287, troponin was 0.042, lipase was within normal limits at 48, urinalysis showed 4+ glucose and trace ketones, but negative for any signs of infection. Alcohol level was less than 10, and acetone level was negative. Patient denied any pulmonary complaints, denied any cough or congestion, did any chest pain, denied any difficulty breathing. He was started on broad-spectrum antibiotics including Zithromax and Rocephin, and later on the Rocephin was switched to Zosyn. We are seeing this patient in consultation for suspicion of underlying pneumonia. Blood culture shows gram- negative bacilli, final cultures pending, no sputum culture was collected, patient is not producing any sputum. Chest x-ray today was reviewed, and showed low lung volumes, but improved aeration of the lung bases, no residual focal consolidation. On 03/04/2019 patient seen in follow-up on selective care unit, he is awake and alert, sitting up in the chair, in no acute distress. Denies any pulmonary symptoms, no cough or congestion, he has been afebrile, room air pulse ox is 99%, lung sounds are clear, and platelets of chest pain. No pleurisy. Today's labs have been reviewed, and there has been significant improvement in patient's leukocytosis, with WBC down to 8.1, hemoglobin 11.8, sodium of 137, potassium 3.9, BUN is 35, creatinine is 1.58. Magnesium is 1.6. Patient was found to have E. coli in his blood cultures, and follow blood culture has shown no growth so far. E service has been consulted, and current antibiotic coverage with Zosyn. Ultrasound of gallbladder showed a gallbladder filled with sludge and somewhat distended, there is wall thickening present, and common bile duct was dilated. Patient was seen by surgical service during his last admission in December, by Dr. Davis, who considered cholecystectomy however patient not a surgical candidate at that time, and patient underwent ERCP with sphincterotomy. Objective - Vital Signs Vital signs: Vital Signs Temp 97.6 F 03/04/19 11:33 Pulse 53 L 03/04/19 11:33 Resp 18 03/04/19 11:33 BP 142/56 03/04/19 11:33 Pulse Ox 99 03/04/19 11:33 Intake & Output 03/03/19 03/04/19 03/04/19 18:59 06:59 18:59 Intake Total 480 298 Output Total 2 1 Balance 478 297 Weight 109.6 kg 109.6 kg Intake: Intake, IV Titration 100 Amount Piperacillin-Tazobactam 3 100 .375 gm In Sodium Chloride 0.9% 100 ml @ 25 mls/hr IVPB Q8HR [facility] Rx# :[id number] Oral 380 298 Output: Stool 2 1 Other: # Voids 1 1 - Exam GENERAL EXAM: Alert, pleasant, obese 78-year-old white male sitting in the recliner currently on room air comfortable in no apparent distress. HEAD: Normocephalic/atraumatic. EYES: Normal reaction of pupils, equal size. Conjunctiva pink, sclera white. NOSE: Clear with pink turbinates. THROAT: No erythema or exudates. NECK: No masses, no JVD, no thyroid enlargement, no adenopathy. CHEST: No chest wall deformity. Symmetrical expansion. LUNGS: Equal air entry with no crackles, wheeze, rhonchi or dullness. CVS: Regular rate and rhythm, normal S1 and S2, no gallops, no murmurs, no rubs ABDOMEN: Soft, nontender, obese. No hepatosplenomegaly, normal bowel sounds, no guarding or rigidity. EXTREMITIES: No clubbing, chronic lower extremity edema, nonpitting, with the dry flaky skin, no cyanosis, 2+ pulses and upper and lower extremities. MUSCULOSKELETAL: Muscle strength and tone normal. SPINE: No scoliosis or deformity SKIN: No rashes CENTRAL NERVOUS SYSTEM: Alert and oriented -3. No focal deficits, tone is normal in all 4 extremities. PSYCHIATRIC: Alert and oriented -3. Appropriate affect. Intact judgment and insight. - Labs CBC & Chem 7: 03/04/19 06:05 03/04/19 06:05 Labs: Abnormal Lab Results - Last 24 Hours (Table) 03/03/19 03/03/19 03/04/19 Range/Units 16:48 20:51 06:05 RBC 4.05 L (4.30-5.90) m/uL Hgb 11.8 L (13.0-17.5) gm/dL Hct 36.4 L (39.0-53.0) % Plt Count 119 L (150-450) k/uL Lymphocytes # 0.8 L (1.0-4.8) k/uL BUN (9-20) mg/dL Creatinine (0.66-1.25) mg/dL Glucose (74-99) mg/dL POC Glucose (mg/dL) 129 H 200 H (75-99) mg/dL Calcium (8.4-10.2) mg/dL 03/04/19 03/04/19 03/04/19 Range/Units 06:05 06:09 11:33 RBC (4.30-5.90) m/uL Hgb (13.0-17.5) gm/dL Hct (39.0-53.0) % Plt Count (150-450) k/uL Lymphocytes # (1.0-4.8) k/uL BUN 35 H (9-20) mg/dL Creatinine 1.58 H (0.66-1.25) mg/dL Glucose 159 H (74-99) mg/dL POC Glucose (mg/dL) 157 H 128 H (75-99) mg/dL Calcium 7.9 L (8.4-10.2) mg/dL Microbiology - Last 24 Hours (Table) 03/02/19 09:28 Blood Culture Gram Stain - Final Blood Blood Culture - Final Escherichia coli 03/02/19 16:09 Blood Culture - Preliminary Blood No Growth after 24 hours 03/02/19 09:28 Blood Culture - Final Blood Assessment and Plan Plan: Assessment #1. Acute sepsis, gram negative bacteremia and the possibilities include cholangitis and cholecystitis, ultrasound of the gallbladder revealed gallbladder sludge, with common bile duct dilation distention of the gallbladder, and wall thickening. CT chest was negative for any acute pulmonary process. #2. Altered mentation, weakness, and lactic acidosis related to the above, improved with IV hydration and broad-spectrum antibiotics #3. Hyperglycemia, dehydration, acute kidney injury, improved with IV hydration #4. Diabetes mellitus type 2 #5. Hypomagnesemia #6. Mild elevation of troponin likely related to sepsis #7. He of atrial flutter status post SAL and cardioversion #8. History of Congestive heart failure #9. Hypothyroidism #10. Previous history of bacteremia with Klebsiella #11. Hospitalization in December 2018 for sepsis related to ascending cholangitis, post ERCP cholangiogram which revealed a stenotic ampulla and patient underwent sphincterotomy and balloon sweep #12. Hypertention #13. COPD with previous history of smoking Plan: We will consult Dr. davis from surgical services for evaluation of the patient in regards to recurrent cholecystitis gram-negative bacteremia. CT chest was negative for acute pulmonary process, no pneumonia. We'll stop the Zithromax, continue with Zosyn. No pulmonary complaints, we will sign off, and follow the patient on as-needed basis. I performed a history & physical examination of the patient and discussed their management with my nurse practitioner, Abril Ackerman. I reviewed the nurse practitioner's note and agree with the documented findings and plan of care. Lung sounds are positive for clear lung sounds. The findings and the impression was discussed with the patient. I attest to the documentation by the nurse practitioner. Time with Patient: Less than 30
[2019-03-04 16:27] LABS: Calcium 8.2 mg/dL (8.4-10.2); Total Bilirubin 0.5 mg/dL (0.2-1.3); Total Protein 5.7 g/dL (6.3-8.2)
[2019-03-04 16:35] LABS: Glucose,Whole Blood 200 mg/dL (75-99)
--- NOTE | 2019-03-04 18:09 | P.GSCN ---
History of Present Illness Consult date: 03/04/19 Reason for Consult: Sepsis, cholangitis History of present illness: The patient's a 78-year-old man who is admitted to the hospital with altered mental status and found to have sepsis. He has a similar admission previously where he had cholangitis and a dilated common bile duct. He underwent ERCP and stent at that time. The patient's not sure what was going on prior to his admission as he did not feel well. He's eating dinner now denying any abdominal pain, nausea, vomiting. Denies any jaundice, tea-colored urine, acholic stool. Review of Systems All systems: negative Past Medical History Past Medical History: Atrial Flutter, Cancer, Heart Failure, COPD, Diabetes Mellitus, Hypertension, Musculoskeletal Disorder, Neurologic Disorder, Thyroid Disorder Additional Past Medical History / Comment(s): PT ADMITTED ON 10/27/18 WITH BACTEREMIA D/T KLEBSIELLA PNE/TRANSAMINITIS/BILIARY SLUDGE PER US. OTHERHX: HX A-FLUTTER/TACHYCARDIA- TX W/ SAL/CARDIOVERSION, HAS BLADDER CA WITH SURGERY AND BLADDER INSTILLATION OF MED FOR BLADDER CANCER, IDC WITH UTI-REMOVED, IDDM TYPE II, BILATERAL CATARACTS, ABD HERNIA. PARKINSONS, DIVERTICULITIS, EDEMA FEET/LEGS, DDD lower spine, HYPOTHYROID, PNEUMONIA WITH SEPSIS, acute renal failure d/t acute tubular necrosis d/t sepsis, possible CKD. Last Myocardial Infarction Date:: UNK History of Any Multi-Drug Resistant Organisms: None Reported Past Surgical History: Adenoidectomy, Bladder Surgery, Tonsillectomy Additional Past Surgical History / Comment(s): 2013 CARDIOVERSION, SAL. BLADDER TUMOR REMOVED,cystoscopy with bladder CA TREATMENTS, colonoscopy Past Anesthesia/Blood Transfusion Reactions: Previous Problems w/ Anesthesia Additional Past Anesthesia/Blood Transfusion Reaction / Comm: HX CLAUSTROPHOBIA Past Psychological History: Anxiety Additional Psychological History / Comment(s): and lives in the family home with his . Retired. No service. Pet dog in the home no recent travel Smoking Status: Former smoker Past Alcohol Use History: None Reported Additional Past Alcohol Use History / Comment(s): QUIT SMOKING 1989- WAS 3 1/2 PPD, PER PTS -PT WAS AN ALCOHOLIC, QUIT 1991. Past Drug Use History: None Reported - Past Family History Father Family Medical History: Cancer Additional Family Medical History / Comment(s): Bone cancer. Mother Family Medical History: Coronary Artery Disease (CAD) Additional Family Medical History / Comment(s): Macular degeneration Sister(s) Family Medical History: Cancer Additional Family Medical History / Comment(s): breast CA Medications and Allergies Home Medications Medication Instructions Recorded Confirmed Type Albuterol Inhaler [Ventolin Hfa 2 puff INHALATION RT-Q4H PRN 03/15/14 03/02/19 History Inhaler] Amiodarone HCl 200 mg PO QAM 04/21/14 03/02/19 History Metoprolol Tartrate 25 mg PO BID 04/21/16 03/02/19 History Carbidopa-Levodopa 25-100 mg 2 tab PO TID 07/08/16 03/02/19 History [Sinemet 25-100 mg] Furosemide [Lasix] 40 mg PO BID 10/27/18 03/02/19 History Fluticasone Nasal [place] [Flonase 1 spray EA NOSTRIL DAILY 12/31/18 03/02/19 History Nasal [place]] Levothyroxine Sodium [Synthroid] 88 mcg PO DAILY 12/31/18 03/02/19 History Lisinopril [Zestril] 40 mg PO DAILY 12/31/18 03/02/19 History Insulin Lispro Protamin/Lispro See Protocol SQ AC-BID 03/02/19 03/02/19 History [humaLOG Mix 75-25 Kwikpen] Allergies Allergy/AdvReac Type Severity Reaction Status Date / Time aspirin Allergy Swelling Verified 03/02/19 09:59 NSAIDS (Non-Steroidal Allergy Swelling Verified 03/02/19 09:59 Anti-Inflamma Surgical - Exam Osteopathic Statement: *. No significant issues noted on an osteopathic structural exam other than those noted in the History and Physical/Consult. Vital Signs Temp Pulse Resp BP Pulse Ox 99.1 F 86 18 102/53 92 L 03/02/19 09:41 03/02/19 09:41 03/02/19 09:41 03/02/19 09:41 03/02/19 09:41 - General well developed, no distress - Eyes normal ocular movement - Neck trachea midline - Respiratory normal respiratory effort - Cardiovascular Rhythm: regular - Abdomen Abdomen: soft, non tender, bowel sounds Results - Labs 03/04/19 06:05 03/04/19 15:07 Abnormal Lab Results - Last 24 Hours (Table) 03/03/19 03/04/19 03/04/19 Range/Units 20:51 06:05 06:05 RBC 4.05 L (4.30-5.90) m/uL Hgb 11.8 L (13.0-17.5) gm/dL Hct 36.4 L (39.0-53.0) % Plt Count 119 L (150-450) k/uL Lymphocytes # 0.8 L (1.0-4.8) k/uL BUN 35 H (9-20) mg/dL Creatinine 1.58 H (0.66-1.25) mg/dL Glucose 159 H (74-99) mg/dL POC Glucose (mg/dL) 200 H (75-99) mg/dL Calcium 7.9 L (8.4-10.2) mg/dL AST (17-59) U/L Alkaline Phosphatase (38-126) U/L Total Protein (6.3-8.2) g/dL Albumin (3.5-5.0) g/dL 03/04/19 03/04/19 03/04/19 Range/Units 06:09 11:33 15:07 RBC (4.30-5.90) m/uL Hgb (13.0-17.5) gm/dL Hct (39.0-53.0) % Plt Count (150-450) k/uL Lymphocytes # (1.0-4.8) k/uL BUN 29 H (9-20) mg/dL Creatinine 1.41 H (0.66-1.25) mg/dL Glucose 178 H (74-99) mg/dL POC Glucose (mg/dL) 157 H 128 H (75-99) mg/dL Calcium 8.2 L (8.4-10.2) mg/dL AST 62 H (17-59) U/L Alkaline Phosphatase 238 H (38-126) U/L Total Protein 5.7 L (6.3-8.2) g/dL Albumin 3.0 L (3.5-5.0) g/dL 03/04/19 Range/Units 16:26 RBC (4.30-5.90) m/uL Hgb (13.0-17.5) gm/dL Hct (39.0-53.0) % Plt Count (150-450) k/uL Lymphocytes # (1.0-4.8) k/uL BUN (9-20) mg/dL Creatinine (0.66-1.25) mg/dL Glucose (74-99) mg/dL POC Glucose (mg/dL) 200 H (75-99) mg/dL Calcium (8.4-10.2) mg/dL AST (17-59) U/L Alkaline Phosphatase (38-126) U/L Total Protein (6.3-8.2) g/dL Albumin (3.5-5.0) g/dL Microbiology - Last 24 Hours (Table) 03/04/19 11:08 Anaerobic Culture - Preliminary Scrotum 03/04/19 11:08 Wound Culture - Preliminary Groin 03/02/19 09:28 Blood Culture Gram Stain - Final Blood Blood Culture - Final Escherichia coli 03/02/19 16:09 Blood Culture - Preliminary Blood No Growth after 24 hours Diabetes panel 03/04/19 03/04/19 Range/Units 06:05 15:07 Sodium 137 138 (137-145) mmol/L Potassium 3.9 4.0 (3.5-5.1) mmol/L Chloride 106 106 (98-107) mmol/L Carbon Dioxide 25 24 (22-30) mmol/L BUN 35 H 29 H (9-20) mg/dL Creatinine 1.58 H 1.41 H (0.66-1.25) mg/dL Glucose 159 H 178 H (74-99) mg/dL Calcium 7.9 L 8.2 L (8.4-10.2) mg/dL AST 62 H (17-59) U/L ALT 28 (21-72) U/L Alkaline Phosphatase 238 H (38-126) U/L Total Protein 5.7 L (6.3-8.2) g/dL Albumin 3.0 L (3.5-5.0) g/dL Calcium panel 03/04/19 03/04/19 Range/Units 06:05 15:07 Calcium 7.9 L 8.2 L (8.4-10.2) mg/dL Albumin 3.0 L (3.5-5.0) g/dL Pituitary panel 03/04/19 03/04/19 Range/Units 06:05 15:07 Sodium 137 138 (137-145) mmol/L Potassium 3.9 4.0 (3.5-5.1) mmol/L Chloride 106 106 (98-107) mmol/L Carbon Dioxide 25 24 (22-30) mmol/L BUN 35 H 29 H (9-20) mg/dL Creatinine 1.58 H 1.41 H (0.66-1.25) mg/dL Glucose 159 H 178 H (74-99) mg/dL Calcium 7.9 L 8.2 L (8.4-10.2) mg/dL Adrenal panel 03/04/19 03/04/19 Range/Units 06:05 15:07 Sodium 137 138 (137-145) mmol/L Potassium 3.9 4.0 (3.5-5.1) mmol/L Chloride 106 106 (98-107) mmol/L Carbon Dioxide 25 24 (22-30) mmol/L BUN 35 H 29 H (9-20) mg/dL Creatinine 1.58 H 1.41 H (0.66-1.25) mg/dL Glucose 159 H 178 H (74-99) mg/dL Calcium 7.9 L 8.2 L (8.4-10.2) mg/dL Total Bilirubin 0.5 (0.2-1.3) mg/dL AST 62 H (17-59) U/L ALT 28 (21-72) U/L Alkaline Phosphatase 238 H (38-126) U/L Total Protein 5.7 L (6.3-8.2) g/dL Albumin 3.0 L (3.5-5.0) g/dL - Imaging US - abdomen: report reviewed Assessment and Plan (1) Lactic acidosis Current Visit: Yes Status: Acute Code(s): E87.2 - ACIDOSIS SNOMED Code(s): 96978240 (2) Ampullary stenosis Current Visit: No Status: Acute Code(s): K83.1 - OBSTRUCTION OF BILE DUCT SNOMED Code(s): 754534019 (3) Ascending cholangitis Current Visit: No Status: Acute Code(s): K83.09 - OTHER CHOLANGITIS SNOMED Code(s): 21320305 (4) Sepsis Current Visit: No Status: Acute Code(s): A41.9 - SEPSIS, UNSPECIFIED ORGANISM SNOMED Code(s): 57074270 Plan: The patient is on appropriate antibiotics for his sepsis. Awaiting GI consult. It's possible he has a stent occlusion which is causing his common bile duct dilation and cholangitis. We'll discuss with the medical service, GI and cardiology whether he is an acceptable surgical candidate given the recurrent cholangitis. He is currently on eliquis, this would need to be held prior to surgery. Further recommendations to follow.
[2019-03-04] MEDS ORDERED: IPRATROPIUM-ALBUTEROL 3 ML NEB INHALATION PRN (19:45)
[2019-03-04 20:47] LABS: Glucose,Whole Blood 228 mg/dL (75-99)
[2019-03-04] MEDS: INSULIN DETEMIR (LEVEMIR) 100 UNIT/ML SYR SQ SCH (21:00)
[2019-03-05 05:50] LABS: Glucose,Whole Blood 194 mg/dL (75-99)
[2019-03-05 06:24] LABS: Basophils % (A) 0 %; Eosinophils # (A) 0.2 k/uL (0-0.7); Eosinophils % (A) 3 %; HCT 38.9 % (39.0-53.0); HGB 12.7 gm/dL (13.0-17.5); Lymphocytes # (A) 1.4 k/uL (1.0-4.8); Lymphocytes % (A) 21 %; MCH 29.3 pg (25.0-35.0); MCHC 32.6 g/dL (31.0-37.0); MCV 89.8 fL (80.0-100.0); Mean Platelet Volume 9.3; Monocytes # (A) 0.4 k/uL (0-1.0); Monocytes % (A) 6 %; Neutrophils # (A) 4.4 k/uL (1.3-7.7); Neutrophils % (A) 68 %; Platelet Count 119 k/uL (150-450); RBC 4.33 m/uL (4.30-5.90); RDW 14.4 % (11.5-15.5); WBC 6.6 k/uL (3.8-10.6)
[2019-03-05 06:37] LABS: Calcium 8.4 mg/dL (8.4-10.2); Potassium 3.8 mmol/L (3.5-5.1)
[2019-03-05 06:39] LABS: Magnesium 1.6 mg/dL (1.6-2.3)
[2019-03-05] MEDS: INSULIN ASPART (NovoLOG) 100 UNIT/ML VIAL SQ SCH ×4 (06:56→21:05)
[2019-03-05] MEDS: LEVOTHYROXINE 88 MCG TAB PO SCH (06:56)
[2019-03-05] MEDS: PANTOPRAZOLE 40 MG TABLET PO SCH (06:56)
[2019-03-05] MEDS: CARBIDOPA-LEVODOPA 25-100 MG 1 EACH TAB PO SCH ×3 (06:56→17:07)
[2019-03-05] MEDS ORDERED: POTASSIUM CHLORIDE ER 20 MEQ TAB.ER PO SCH (08:00)
[2019-03-05] MEDS: AMIODARONE 200 MG TAB PO SCH (09:50)
[2019-03-05] MEDS: PIPERACILLIN-TAZOBACTAM 3.375 GM in SODIUM CHLORIDE 0.9% 100 ML IVPB SCH ×2 (09:50→15:41)
[2019-03-05] MEDS: APIXABAN 5 MG TAB PO SCH (09:50)
[2019-03-05] MEDS: FLUTICASONE 50MCG/SPRAY NASAL 16GM EA NOSTRIL SCH (09:50)
[2019-03-05] MEDS: FUROSEMIDE 40 MG TAB PO SCH ×2 (09:50→15:41)
[2019-03-05] MEDS: MAGNESIUM SULFATE-D5W PMX 1 GM in DEXTROSE/WATER 1 100ML.BAG IVPB SCH ×2 (09:54→11:54)
[2019-03-05] MEDS: METOPROLOL TARTRATE 25 MG TAB PO SCH ×2 (09:57→23:00)
--- NOTE | 2019-03-05 10:13 | P.PN ---
Subjective Principal diagnosis: On 03/04/2019 Patient just had SHOWER. He said that he is doing. He does not complain of any chest pain racing heart, no cough no shortness of breath He does not complain of any abdominal pain, nausea and vomiting, or diarrhea constipation. Objective - Vital Signs Vital signs: Vital Signs Temp 98.2 F 03/05/19 08:00 Pulse 48 L 03/05/19 09:38 Resp 20 03/05/19 08:00 BP 118/55 03/05/19 09:38 Pulse Ox 99 03/05/19 08:00 Intake & Output 03/04/19 03/05/19 03/05/19 18:59 06:59 18:59 Intake Total 648 240 Output Total 1 1 Balance 647 -1 240 Weight 111.1 kg Intake: Oral 648 240 Output: Stool 1 1 Other: Voiding Method Toilet # Voids 3 1 # Bowel Movements 2 - Exam On exam, alert and oriented x3. HEENT: Conjunctivae normal. eyes normal. NECK: No JVD. No thyroid enlargement. No LNs CARDIOVASCULAR: S1, S2 muffled. No murmur RESPIRATION: Breath sounds diminished in the bases. No rhonchi or crackles. No bronchial breathing. ABDOMEN: Soft, nontender . No guarding. no masses palpable. No ascites, No hepatosplenomegaly.Bowel sounds heard. LEGS: Patient is having status dermatitis Erick in bilateral lower extremities +1 pitting edema NERVOUS SYSTEM: Cranial N 2-12 grossly normal. Moves all 4 limbs. No focal deficits. No sensory deficit. No signs of cerebellar dysfucntion. - Labs CBC & Chem 7: 03/05/19 06:12 03/05/19 06:12 Labs: Abnormal Lab Results - Last 24 Hours (Table) 03/04/19 03/04/19 03/04/19 Range/Units 11:33 15:07 16:26 Hgb (13.0-17.5) gm/dL Hct (39.0-53.0) % Plt Count (150-450) k/uL BUN 29 H (9-20) mg/dL Creatinine 1.41 H (0.66-1.25) mg/dL Glucose 178 H (74-99) mg/dL POC Glucose (mg/dL) 128 H 200 H (75-99) mg/dL Calcium 8.2 L (8.4-10.2) mg/dL AST 62 H (17-59) U/L Alkaline Phosphatase 238 H (38-126) U/L Total Protein 5.7 L (6.3-8.2) g/dL Albumin 3.0 L (3.5-5.0) g/dL 03/04/19 03/05/19 03/05/19 Range/Units 20:45 05:49 06:12 Hgb 12.7 L (13.0-17.5) gm/dL Hct 38.9 L (39.0-53.0) % Plt Count 119 L (150-450) k/uL BUN (9-20) mg/dL Creatinine (0.66-1.25) mg/dL Glucose (74-99) mg/dL POC Glucose (mg/dL) 228 H 194 H (75-99) mg/dL Calcium (8.4-10.2) mg/dL AST (17-59) U/L Alkaline Phosphatase (38-126) U/L Total Protein (6.3-8.2) g/dL Albumin (3.5-5.0) g/dL 03/05/19 Range/Units 06:12 Hgb (13.0-17.5) gm/dL Hct (39.0-53.0) % Plt Count (150-450) k/uL BUN 28 H (9-20) mg/dL Creatinine 1.37 H (0.66-1.25) mg/dL Glucose 166 H (74-99) mg/dL POC Glucose (mg/dL) (75-99) mg/dL Calcium (8.4-10.2) mg/dL AST (17-59) U/L Alkaline Phosphatase (38-126) U/L Total Protein (6.3-8.2) g/dL Albumin (3.5-5.0) g/dL Microbiology - Last 24 Hours (Table) 03/04/19 11:08 Gram Stain - Preliminary Groin Wound Culture - Preliminary 03/02/19 16:09 Blood Culture - Preliminary Blood No Growth after 48 hours 03/04/19 11:08 Anaerobic Culture - Preliminary Scrotum 03/02/19 09:28 Blood Culture Gram Stain - Final Blood Blood Culture - Final Escherichia coli Assessment and Plan Assessment: - Left lower lobe pneumonia possibly gram-negative - Sepsis - Acute encephalopathy patient doing better - Diabetes mellitus - Acute on chronic renal failure kidney functions improving - History of CHF - History of atrial flutter - History of COPD - History of hypertension - History of hypothyroidism - History of anxiety Plan - Patient is on antibiotics. Appreciated infectious disease recommendations - His ultrasound the gallbladder shows ductal dilatation possible cholecystitis. GI consulted as he had ERCP with stent placed. There is a concern for occluded stent - Pulmonology on board for pneumonia - The current medical care - We'll follow the patient Time with Patient: Greater than 30
--- NOTE | 2019-03-05 10:16 | P.PN ---
Subjective Principal diagnosis: On 03/04/2019 Patient just had SHOWER. He said that he is doing. He does not complain of any chest pain racing heart, no cough no shortness of breath He does not complain of any abdominal pain, nausea and vomiting, or diarrhea constipation. On 03/05/2019 Patient says that he's feeling weak today He does not complain of abdominal pain, no chest pain or racing heart, no cough no shortness breath, He does not complain of any nausea vomiting or diarrhea constipation Objective - Vital Signs Vital signs: Vital Signs Temp 98.2 F 03/05/19 08:00 Pulse 48 L 03/05/19 09:38 Resp 20 03/05/19 08:00 BP 118/55 03/05/19 09:38 Pulse Ox 99 03/05/19 08:00 Intake & Output 03/04/19 03/05/19 03/05/19 18:59 06:59 18:59 Intake Total 648 240 Output Total 1 1 Balance 647 -1 240 Weight 111.1 kg Intake: Oral 648 240 Output: Stool 1 1 Other: Voiding Method Toilet # Voids 3 1 # Bowel Movements 2 - Exam On exam, alert and oriented x3. HEENT: Conjunctivae normal. eyes normal. NECK: No JVD. No thyroid enlargement. No LNs CARDIOVASCULAR: S1, S2 muffled. No murmur RESPIRATION: Breath sounds diminished in the bases. No rhonchi or crackles. No bronchial breathing. ABDOMEN: Soft, nontender . No guarding. no masses palpable. No ascites, No hepatosplenomegaly.Bowel sounds heard. LEGS: Patient is having status dermatitis Erick in bilateral lower extremities +1 pitting edema NERVOUS SYSTEM: Cranial N 2-12 grossly normal. Moves all 4 limbs. No focal deficits. No sensory deficit. No signs of cerebellar dysfucntion. - Labs CBC & Chem 7: 03/05/19 06:12 03/05/19 06:12 Labs: Abnormal Lab Results - Last 24 Hours (Table) 03/04/19 03/04/19 03/04/19 Range/Units 11:33 15:07 16:26 Hgb (13.0-17.5) gm/dL Hct (39.0-53.0) % Plt Count (150-450) k/uL BUN 29 H (9-20) mg/dL Creatinine 1.41 H (0.66-1.25) mg/dL Glucose 178 H (74-99) mg/dL POC Glucose (mg/dL) 128 H 200 H (75-99) mg/dL Calcium 8.2 L (8.4-10.2) mg/dL AST 62 H (17-59) U/L Alkaline Phosphatase 238 H (38-126) U/L Total Protein 5.7 L (6.3-8.2) g/dL Albumin 3.0 L (3.5-5.0) g/dL 03/04/19 03/05/19 03/05/19 Range/Units 20:45 05:49 06:12 Hgb 12.7 L (13.0-17.5) gm/dL Hct 38.9 L (39.0-53.0) % Plt Count 119 L (150-450) k/uL BUN (9-20) mg/dL Creatinine (0.66-1.25) mg/dL Glucose (74-99) mg/dL POC Glucose (mg/dL) 228 H 194 H (75-99) mg/dL Calcium (8.4-10.2) mg/dL AST (17-59) U/L Alkaline Phosphatase (38-126) U/L Total Protein (6.3-8.2) g/dL Albumin (3.5-5.0) g/dL 03/05/19 Range/Units 06:12 Hgb (13.0-17.5) gm/dL Hct (39.0-53.0) % Plt Count (150-450) k/uL BUN 28 H (9-20) mg/dL Creatinine 1.37 H (0.66-1.25) mg/dL Glucose 166 H (74-99) mg/dL POC Glucose (mg/dL) (75-99) mg/dL Calcium (8.4-10.2) mg/dL AST (17-59) U/L Alkaline Phosphatase (38-126) U/L Total Protein (6.3-8.2) g/dL Albumin (3.5-5.0) g/dL Microbiology - Last 24 Hours (Table) 03/04/19 11:08 Gram Stain - Preliminary Groin Wound Culture - Preliminary 03/02/19 16:09 Blood Culture - Preliminary Blood No Growth after 48 hours 03/04/19 11:08 Anaerobic Culture - Preliminary Scrotum 03/02/19 09:28 Blood Culture Gram Stain - Final Blood Blood Culture - Final Escherichia coli Assessment and Plan Assessment: - Left lower lobe pneumonia possibly gram-negative - Sepsis - Acute encephalopathy patient doing better - Diabetes mellitus - Acute on chronic renal failure kidney functions improving - History of CHF - History of atrial flutter - History of COPD - History of hypertension - History of hypothyroidism - History of anxiety Plan On 03/04/2019 - Patient is on antibiotics. Appreciated infectious disease recommendations - His ultrasound the gallbladder shows ductal dilatation possible cholecystitis. GI consulted as he had ERCP with stent placed. There is a concern for occluded stent - Pulmonology on board for pneumonia - The current medical care - We'll follow the patient On 03/05/2019 - Patient says that he's feeling weak this morning - GI consultation pending. - General surgery consulted by pulmonology and they want to wait to see what GI recommends. There are also order talk to cardiology and pulmonology for clearance if in case he needs cholecystectomy - We'll continue current medical history Time with Patient: Less than 30
--- NOTE | 2019-03-05 12:00 | P.PN ---
Subjective Progress Note Date: 03/05/19 Principal diagnosis: Sepsis, cholangitis The patient denies any abdominal pain, nausea, vomiting. He was seen by Dr. Villanueva evidently had a ERCP with sphincterotomy but no stent placement. Objective - Vital Signs Vital signs: Vital Signs Temp 98.2 F 03/05/19 08:00 Pulse 48 L 03/05/19 09:38 Resp 20 03/05/19 08:00 BP 118/55 03/05/19 09:38 Pulse Ox 99 03/05/19 08:00 Intake & Output 03/04/19 03/05/19 03/05/19 18:59 06:59 18:59 Intake Total 648 240 Output Total 1 1 Balance 647 -1 240 Weight 111.1 kg Intake: Oral 648 240 Output: Stool 1 1 Other: Voiding Method Toilet Toilet # Voids 3 1 # Bowel Movements 2 - Constitutional General appearance: Present: cooperative, no acute distress - Gastrointestinal General gastrointestinal: Present: soft. Absent: tenderness - Labs CBC & Chem 7: 03/05/19 06:12 03/05/19 06:12 Labs: Abnormal Lab Results - Last 24 Hours (Table) 03/04/19 03/04/19 03/04/19 Range/Units 11:33 15:07 16:26 Hgb (13.0-17.5) gm/dL Hct (39.0-53.0) % Plt Count (150-450) k/uL BUN 29 H (9-20) mg/dL Creatinine 1.41 H (0.66-1.25) mg/dL Glucose 178 H (74-99) mg/dL POC Glucose (mg/dL) 128 H 200 H (75-99) mg/dL Calcium 8.2 L (8.4-10.2) mg/dL AST 62 H (17-59) U/L Alkaline Phosphatase 238 H (38-126) U/L Total Protein 5.7 L (6.3-8.2) g/dL Albumin 3.0 L (3.5-5.0) g/dL 03/04/19 03/05/19 03/05/19 Range/Units 20:45 05:49 06:12 Hgb 12.7 L (13.0-17.5) gm/dL Hct 38.9 L (39.0-53.0) % Plt Count 119 L (150-450) k/uL BUN (9-20) mg/dL Creatinine (0.66-1.25) mg/dL Glucose (74-99) mg/dL POC Glucose (mg/dL) 228 H 194 H (75-99) mg/dL Calcium (8.4-10.2) mg/dL AST (17-59) U/L Alkaline Phosphatase (38-126) U/L Total Protein (6.3-8.2) g/dL Albumin (3.5-5.0) g/dL 03/05/19 Range/Units 06:12 Hgb (13.0-17.5) gm/dL Hct (39.0-53.0) % Plt Count (150-450) k/uL BUN 28 H (9-20) mg/dL Creatinine 1.37 H (0.66-1.25) mg/dL Glucose 166 H (74-99) mg/dL POC Glucose (mg/dL) (75-99) mg/dL Calcium (8.4-10.2) mg/dL AST (17-59) U/L Alkaline Phosphatase (38-126) U/L Total Protein (6.3-8.2) g/dL Albumin (3.5-5.0) g/dL Microbiology - Last 24 Hours (Table) 03/04/19 11:08 Gram Stain - Preliminary Groin Wound Culture - Preliminary Group D Enterococcus Presumptive Staph aureus 03/02/19 16:09 Blood Culture - Preliminary Blood No Growth after 48 hours 03/04/19 11:08 Anaerobic Culture - Preliminary Scrotum 03/02/19 09:28 Blood Culture Gram Stain - Final Blood Blood Culture - Final Escherichia coli Assessment and Plan (1) Lactic acidosis Current Visit: Yes Status: Acute Code(s): E87.2 - ACIDOSIS SNOMED Code(s): 49968855 (2) Ampullary stenosis Current Visit: No Status: Acute Code(s): K83.1 - OBSTRUCTION OF BILE DUCT SNOMED Code(s): 167239381 (3) Ascending cholangitis Current Visit: No Status: Acute Code(s): K83.09 - OTHER CHOLANGITIS SNOMED Code(s): 36733226 (4) Sepsis Current Visit: No Status: Acute Code(s): A41.9 - SEPSIS, UNSPECIFIED ORGANISM SNOMED Code(s): 46074786 Plan: The case was discussed with GI. I also spoke with cardiology. I asked him to evaluate him with regards to possible laparoscopic cholecystectomy. He did have a general anesthetic in patient with his ERCP. This was tolerated without difficulty. Surgery may be safe. Than repeated episodes of cholangitis with sepsis. I did talk with his by phone today. We did discuss the risk and benefits of medical management versus surgery, particularly in regards to the repeated episodes of sepsis. Further recommendations to follow.
[2019-03-05 12:02] LABS: Glucose,Whole Blood 210 mg/dL (75-99)
--- NOTE | 2019-03-05 13:11 | P.CONS ---
History of Present Illness - Reason for Consult Consult date: 03/05/19 Dilated common bile duct Requesting physician: Dorene Smith - Chief Complaint Weakness - History of Present Illness 78-year-old male with multiple medical comorbidities including atrial flutter, COPD, diabetes mellitus, hypertension, prior treatment for pneumonia, and chol angitis for which he underwent ERCP on his last admission who presents back to the hospital with complaints of weakness and change in mental status. The patient was brought to the hospital by EMS with reports of a change in mental status from his family. At the time of admission there is evidence of dehydration, uncontrolled blood sugars and elevation in his blood pressure. The patient has subsequently been found to have a bacteremia with E. coli. He is currently on antibiotic therapy. The patient on his last admission was seen for recurrent cholangitis and at that time underwent ERCP with sphincterotomy and balloon dilation of the common bile duct on both 01/04/2019. Current laboratory evaluation is significant for a WBC 6.6, hemoglobin 12.7, platelet count 119,000, INR 0.9, total bilirubin 0.5, alkaline phosphatase 238, AST 62 and ALT 28. The patient had evaluation with ultrasound which was significant for gallbladder sludge with associated wall thickening of the gallbladder and a dilated common bile duct of 1.6 cm. Currently he is bedside reporting that he continues to feel weak. He is denying any abdominal pain, nausea or vomiting. Review of Systems REVIEW OF SYSTEMS: CONSTITUTIONAL: Denies any fevers, chills, weight change or fatigue. CARDIOVASCULAR: Denies any chest pain, palpitations high or low blood pressures RESPIRATORY: Denies any shortness of breath, hemoptysis or cough. GENITOURINARY: No dysuria or hematuria. MUSCULOSKELETAL: Reports feeling weak overall but no focal weakness reported. SKIN: Denies any new rashes or lesions, jaundice or pallor. PSYCHIATRIC: Denies any depression or anxiety. NEUROLOGY: Denies headache, denies any new focal deficits. EARS/NOSE/THROAT: No recent hearing change, congestion, nasal discharge or sore throat. EYES: No pain in eyes, discharge or change in vision. GASTROINTESTINAL: As per HPI. Past Medical History Past Medical History: Atrial Flutter, Cancer, Heart Failure, COPD, Diabetes Mellitus, Hypertension, Musculoskeletal Disorder, Neurologic Disorder, Thyroid Disorder Additional Past Medical History / Comment(s): PT ADMITTED ON 10/27/18 WITH BACTEREMIA D/T KLEBSIELLA PNE/TRANSAMINITIS/BILIARY SLUDGE PER US. OTHERHX: HX A-FLUTTER/TACHYCARDIA- TX W/ SAL/CARDIOVERSION, HAS BLADDER CA WITH SURGERY AND BLADDER INSTILLATION OF MED FOR BLADDER CANCER, IDC WITH UTI-REMOVED, IDDM TYPE II, BILATERAL CATARACTS, ABD HERNIA. PARKINSONS, DIVERTICULITIS, EDEMA FEET/LEGS, DDD lower spine, HYPOTHYROID, PNEUMONIA WITH SEPSIS, acute renal failure d/t acute tubular necrosis d/t sepsis, possible CKD. Last Myocardial Infarction Date:: UNK History of Any Multi-Drug Resistant Organisms: None Reported Past Surgical History: Adenoidectomy, Bladder Surgery, Tonsillectomy Additional Past Surgical History / Comment(s): 2013 CARDIOVERSION, SAL. BLADDER TUMOR REMOVED,cystoscopy with bladder CA TREATMENTS, colonoscopy Past Anesthesia/Blood Transfusion Reactions: Previous Problems w/ Anesthesia Additional Past Anesthesia/Blood Transfusion Reaction / Comm: HX CLAUSTROPHOBIA Past Psychological History: Anxiety Additional Psychological History / Comment(s): and lives in the family home with his . Retired. No service. Pet dog in the home no recent travel Smoking Status: Former smoker Past Alcohol Use History: None Reported Additional Past Alcohol Use History / Comment(s): QUIT SMOKING 1989- WAS 3 1/2 PPD, PER PTS -PT WAS AN ALCOHOLIC, QUIT 1991. Past Drug Use History: None Reported - Past Family History Father Family Medical History: Cancer Additional Family Medical History / Comment(s): Bone cancer. Mother Family Medical History: Coronary Artery Disease (CAD) Additional Family Medical History / Comment(s): Macular degeneration Sister(s) Family Medical History: Cancer Additional Family Medical History / Comment(s): breast CA Medications and Allergies Home Medications Medication Instructions Recorded Confirmed Type Albuterol Inhaler [Ventolin Hfa 2 puff INHALATION RT-Q4H PRN 03/15/14 03/02/19 History Inhaler] Amiodarone HCl 200 mg PO QAM 04/21/14 03/02/19 History Metoprolol Tartrate 25 mg PO BID 04/21/16 03/02/19 History Carbidopa-Levodopa 25-100 mg 2 tab PO TID 07/08/16 03/02/19 History [Sinemet 25-100 mg] Furosemide [Lasix] 40 mg PO BID 10/27/18 03/02/19 History Fluticasone Nasal [place] [Flonase 1 spray EA NOSTRIL DAILY 12/31/18 03/02/19 History Nasal [place]] Levothyroxine Sodium [Synthroid] 88 mcg PO DAILY 12/31/18 03/02/19 History Lisinopril [Zestril] 40 mg PO DAILY 12/31/18 03/02/19 History Insulin Lispro Protamin/Lispro See Protocol SQ AC-BID 03/02/19 03/02/19 History [humaLOG Mix 75-25 Kwikpen] Allergies Allergy/AdvReac Type Severity Reaction Status Date / Time aspirin Allergy Swelling Verified 03/02/19 09:59 NSAIDS (Non-Steroidal Allergy Swelling Verified 03/02/19 09:59 Anti-Inflamma Physical Exam Vitals: Vital Signs Temp Pulse Resp BP BP Pulse Ox 03/05/19 11:59 97.9 F 44 L 16 127/61 99 03/05/19 09:38 48 L 118/55 03/05/19 08:00 98.2 F 50 L 20 105/49 99 03/05/19 05:05 97.9 F 51 L 15 141/67 98 03/04/19 23:43 98.1 F 48 L 15 100/56 100 03/04/19 20:00 97.4 F L 48 L 18 166/66 100 03/04/19 16:00 97.4 F L 50 L 20 146/64 98 Intake and Output 03/04/19 03/05/19 03/05/19 22:59 06:59 14:59 Intake Total 350 240 Output Total 1 802 Balance 350 -1 -562 Intake: Oral 350 240 Output: Urine 800 Stool 1 2 Other: Voiding Method Toilet Toilet # Voids 1 1 1 # Bowel Movements 2 Weight 111.1 kg On physical examination, patient appears comfortable in no apparent distress. HEAD: Normocephalic, atraumatic. EYES: No scleral icterus. No conjunctival injection. MOUTH: No lesions, tongue midline. NECK: Trachea midline, no gross abnormalities. CHEST: Decreased air entry bilaterally. HEART: S1-S2 appreciated. ABDOMEN: Soft, obese. Bowel sounds are positive. No organomegaly. No guarding or rigidity. EXTREMITIES: Bilateral pedal edema. SKIN: No rashes, no jaundice. NEUROLOGIC: Alert and oriented x3. No focal deficits. Results CBC & Chem 7: 03/05/19 06:12 03/05/19 06:12 Labs: Abnormal Lab Results - Last 24 Hours (Table) 03/04/19 03/04/19 03/04/19 Range/Units 15:07 16:26 20:45 Hgb (13.0-17.5) gm/dL Hct (39.0-53.0) % Plt Count (150-450) k/uL BUN 29 H (9-20) mg/dL Creatinine 1.41 H (0.66-1.25) mg/dL Glucose 178 H (74-99) mg/dL POC Glucose (mg/dL) 200 H 228 H (75-99) mg/dL Calcium 8.2 L (8.4-10.2) mg/dL AST 62 H (17-59) U/L Alkaline Phosphatase 238 H (38-126) U/L Total Protein 5.7 L (6.3-8.2) g/dL Albumin 3.0 L (3.5-5.0) g/dL 03/05/19 03/05/19 03/05/19 Range/Units 05:49 06:12 06:12 Hgb 12.7 L (13.0-17.5) gm/dL Hct 38.9 L (39.0-53.0) % Plt Count 119 L (150-450) k/uL BUN 28 H (9-20) mg/dL Creatinine 1.37 H (0.66-1.25) mg/dL Glucose 166 H (74-99) mg/dL POC Glucose (mg/dL) 194 H (75-99) mg/dL Calcium (8.4-10.2) mg/dL AST (17-59) U/L Alkaline Phosphatase (38-126) U/L Total Protein (6.3-8.2) g/dL Albumin (3.5-5.0) g/dL 03/05/19 Range/Units 11:41 Hgb (13.0-17.5) gm/dL Hct (39.0-53.0) % Plt Count (150-450) k/uL BUN (9-20) mg/dL Creatinine (0.66-1.25) mg/dL Glucose (74-99) mg/dL POC Glucose (mg/dL) 210 H (75-99) mg/dL Calcium (8.4-10.2) mg/dL AST (17-59) U/L Alkaline Phosphatase (38-126) U/L Total Protein (6.3-8.2) g/dL Albumin (3.5-5.0) g/dL Microbiology - Last 24 Hours (Table) 03/04/19 11:08 Gram Stain - Preliminary Groin Wound Culture - Preliminary Group D Enterococcus Presumptive Staph aureus 03/02/19 16:09 Blood Culture - Preliminary Blood No Growth after 48 hours 03/04/19 11:08 Anaerobic Culture - Preliminary Scrotum 03/02/19 09:28 Blood Culture Gram Stain - Final Blood Blood Culture - Final Escherichia coli US - abdomen: report reviewed (ultrasound which was significant for gallbladder sludge with associated wall thickening of the gallbladder and a dilated common bile duct of 1.6 cm) Assessment and Plan (1) Gram negative sepsis Narrative/Plan: 78-year-old presenting to altered mental status and weakness, he has subsequently been found to have bacteremia with E. coli was concern for a biliary etiology of the bacteria. The patient has been hospitalized with cholangitis in the past and treated with ERCP with sphincterotomy and balloon sweep on 01/04/2019. Currently the patient is denying any abdominal pain and has only mild elevation of his liver enzymes with a normal bilirubin, with total bilirubin 0.5, alkaline phosphatase 238, AST 62 and ALT 28. Patient did have ultrasound findings of a thickened gallbladder wall with sludge in the gallbladder and a dilated common bile duct at 1.6. Given the normal bilirubin and concern is for possible cholecystitis and the surgical service has been consult dated and discussed possible cholecystectomy with the patient. Current Visit: No Status: Acute Code(s): A41.50 - GRAM-NEGATIVE SEPSIS, UNSPECIFIED SNOMED Code(s): 338882031 (2) Ampullary stenosis Current Visit: No Status: Acute Code(s): K83.1 - OBSTRUCTION OF BILE DUCT SNOMED Code(s): 440793702 (3) Biliary sludge determined by ultrasound Current Visit: No Status: Acute Code(s): K83.8 - OTHER SPECIFIED DISEASES OF BILIARY TRACT SNOMED Code(s): 24735812 Plan: Supportive care Okay for diet Continue to monitor CBC, CMP and clinically Appreciate recommendations from consulting services Continue antibiotic therapy No plans for endoscopic intervention at this time Surgical service is considering cholecystectomy and has discussed this with the patient Thank you for allowing us to participate in the care of this patient we will standby at this time, please call us back with any questions or concerns
[2019-03-05 17:04] LABS: Glucose,Whole Blood 227 mg/dL (75-99)
[2019-03-05 20:22] LABS: Glucose,Whole Blood 217 mg/dL (75-99)
[2019-03-05] MEDS ORDERED: SENNOSIDES-DOCUSATE SODIUM 1 EACH TAB PO PRN (20:46)
[2019-03-05] MEDS: INSULIN DETEMIR (LEVEMIR) 100 UNIT/ML SYR SQ SCH (21:05)
[2019-03-06 06:11] LABS: Basophils % (A) 1 %; Eosinophils # (A) 0.2 k/uL (0-0.7); Eosinophils % (A) 3 %; HGB 12.7 gm/dL (13.0-17.5); Lymphocytes # (A) 1.9 k/uL (1.0-4.8); Lymphocytes % (A) 30 %; MCH 29.5 pg (25.0-35.0); MCHC 32.5 g/dL (31.0-37.0); MCV 90.7 fL (80.0-100.0); Mean Platelet Volume 8.8; Monocytes # (A) 0.5 k/uL (0-1.0); Monocytes % (A) 8 %; Neutrophils # (A) 3.4 k/uL (1.3-7.7); Neutrophils % (A) 55 %; Platelet Count 123 k/uL (150-450); RDW 14.6 % (11.5-15.5); WBC 6.1 k/uL (3.8-10.6)
[2019-03-06 06:14] LABS: Glucose,Whole Blood 130 mg/dL (75-99)
[2019-03-06] MEDS: INSULIN ASPART (NovoLOG) 100 UNIT/ML VIAL SQ SCH ×4 (06:17→21:25)
[2019-03-06 06:20] LABS: Calcium 8.4 mg/dL (8.4-10.2); Magnesium 1.8 mg/dL (1.6-2.3); Potassium 3.8 mmol/L (3.5-5.1)
[2019-03-06] MEDS: CARBIDOPA-LEVODOPA 25-100 MG 1 EACH TAB PO SCH ×3 (06:26→17:14)
[2019-03-06] MEDS: PANTOPRAZOLE 40 MG TABLET PO SCH (06:26)
[2019-03-06] MEDS: LEVOTHYROXINE 88 MCG TAB PO SCH (06:26)
[2019-03-06] MEDS ORDERED: POTASSIUM CHLORIDE ER 20 MEQ TAB.ER PO SCH (08:00)
[2019-03-06] MEDS: AMIODARONE 200 MG TAB PO SCH (09:08)
[2019-03-06] MEDS: FLUTICASONE 50MCG/SPRAY NASAL 16GM EA NOSTRIL SCH (09:08)
[2019-03-06] MEDS: FUROSEMIDE 40 MG TAB PO SCH ×2 (09:08→16:07)
[2019-03-06] MEDS: PIPERACILLIN-TAZOBACTAM 3.375 GM in SODIUM CHLORIDE 0.9% 100 ML IVPB SCH ×3 (09:11)
--- NOTE | 2019-03-06 10:09 | P.PN ---
Progress Note - Text Progress Note Date: 03/06/19 Patient remained stable. Awaiting cardiology recommendations regarding surgery for his cholangitis and sepsis.
--- NOTE | 2019-03-06 11:11 | P.PN ---
Subjective Progress Note Date: 03/06/19 Principal diagnosis: Gram-negative bacteremia, dilated common bile duct Patient is seen lying in bed feeling somewhat better. Tolerating his diet. No nausea, vomiting or abdominal pain reported. Objective - Vital Signs Vital signs: Vital Signs Temp 97.4 F L 03/06/19 08:00 Pulse 54 L 03/06/19 08:00 Resp 20 03/06/19 08:00 BP 144/61 03/06/19 08:00 Pulse Ox 99 03/06/19 08:00 Intake & Output 03/05/19 03/06/19 03/06/19 18:59 06:59 18:59 Intake Total 1370 322 Output Total 803 1 Balance 567 -1 322 Weight 110.1 kg Intake: IV 300 100 Magnesium Sulfate-D5w Pmx 200 1 gm In Dextrose/Water 1 100ml.bag @ 100 mls/hr IVPB Q1H [facility] Rx#: [id number] Piperacillin-Tazobactam 3 100 100 .375 gm In Sodium Chloride 0.9% 100 ml @ 25 mls/hr IVPB Q8HR [facility] Rx# :[id number] Oral 1070 222 Output: Urine 800 Stool 3 1 Other: Voiding Method Toilet Toilet Toilet # Voids 2 1 1 # Bowel Movements 1 - Exam On physical examination, patient appears comfortable in no apparent distress. HEAD: Normocephalic, atraumatic. EYES: No scleral icterus. No conjunctival injection. MOUTH: No lesions, tongue midline. NECK: Trachea midline, no gross abnormalities. CHEST: Decreased air entry bilaterally. HEART: S1-S2 appreciated. ABDOMEN: Soft, obese. Bowel sounds are positive. No organomegaly. No guarding or rigidity. EXTREMITIES: No pedal edema. SKIN: No rashes, no jaundice. NEUROLOGIC: Alert and oriented x3. No focal deficits. - Labs CBC & Chem 7: 03/06/19 05:39 03/06/19 05:39 Labs: Abnormal Lab Results - Last 24 Hours (Table) 03/05/19 03/05/19 03/05/19 Range/Units 11:41 17:00 20:20 Hgb (13.0-17.5) gm/dL Plt Count (150-450) k/uL BUN (9-20) mg/dL Creatinine (0.66-1.25) mg/dL Glucose (74-99) mg/dL POC Glucose (mg/dL) 210 H 227 H 217 H (75-99) mg/dL 03/06/19 03/06/19 03/06/19 Range/Units 05:39 05:39 06:11 Hgb 12.7 L (13.0-17.5) gm/dL Plt Count 123 L (150-450) k/uL BUN 23 H (9-20) mg/dL Creatinine 1.34 H (0.66-1.25) mg/dL Glucose 127 H (74-99) mg/dL POC Glucose (mg/dL) 130 H (75-99) mg/dL Microbiology - Last 24 Hours (Table) 03/02/19 16:09 Blood Culture - Preliminary Blood No Growth after 72 hours 03/04/19 11:08 Gram Stain - Preliminary Groin Wound Culture - Preliminary Group D Enterococcus Presumptive Staph aureus Assessment and Plan (1) Gram negative sepsis Narrative/Plan: 78-year-old presenting to altered mental status and weakness, he has subsequently been found to have bacteremia with E. coli was concern for a biliary etiology of the bacteria. The patient has been hospitalized with cholangitis in the past and treated with ERCP with sphincterotomy and balloon sweep on 01/04/2019. Currently the patient is denying any abdominal pain and has only mild elevation of his liver enzymes with a normal bilirubin, with total bilirubin 0.5, alkaline phosphatase 238, AST 62 and ALT 28. Patient did have ultrasound findings of a thickened gallbladder wall with sludge in the gallbladder and a dilated common bile duct at 1.6. Given the normal bilirubin and concern is for possible cholecystitis and the surgical service has been c onsult dated and discussed possible cholecystectomy with the patient. Current Visit: No Status: Acute Code(s): A41.50 - GRAM-NEGATIVE SEPSIS, UNSPECIFIED SNOMED Code(s): 489189719 (2) Ampullary stenosis Current Visit: No Status: Acute Code(s): K83.1 - OBSTRUCTION OF BILE DUCT SNOMED Code(s): 162462030 (3) Biliary sludge determined by ultrasound Current Visit: No Status: Acute Code(s): K83.8 - OTHER SPECIFIED DISEASES OF BILIARY TRACT SNOMED Code(s): 85069015 Plan: Supportive care Okay for diet Continue to monitor CBC, CMP and clinically Appreciate recommendations from consulting services Continue antibiotic therapy No plans for endoscopic intervention at this time Surgical service is considering cholecystectomy and has discussed this with the patient Thank you for allowing us to participate in the care of this patient we will standby at this time, please call us back with any questions or concerns
[2019-03-06] MEDS: METOPROLOL TARTRATE 25 MG TAB PO SCH (11:34)
[2019-03-06 12:10] LABS: Glucose,Whole Blood 218 mg/dL (75-99)
--- NOTE | 2019-03-06 13:48 | P.PN ---
Subjective Principal diagnosis: On 03/04/2019 Patient just had SHOWER. He said that he is doing. He does not complain of any chest pain racing heart, no cough no shortness of breath He does not complain of any abdominal pain, nausea and vomiting, or diarrhea constipation. On 03/05/2019 Patient says that he's feeling weak today He does not complain of abdominal pain, no chest pain or racing heart, no cough no shortness breath, He does not complain of any nausea vomiting or diarrhea constipation 03/06/2019 Patient says that he was having abdominal pain last night. Is feeling better now No chest pains no racing heart Objective - Vital Signs Vital signs: Vital Signs Temp 97.3 F L 03/06/19 11:15 Pulse 49 L 03/06/19 11:15 Resp 16 03/06/19 11:15 BP 134/67 03/06/19 11:15 Pulse Ox 98 03/06/19 11:15 Intake & Output 03/05/19 03/06/19 03/06/19 18:59 06:59 18:59 Intake Total 1370 322 Output Total 803 1 Balance 567 -1 322 Weight 110.1 kg Intake: IV 300 100 Magnesium Sulfate-D5w Pmx 200 1 gm In Dextrose/Water 1 100ml.bag @ 100 mls/hr IVPB Q1H [facility] Rx#: [id number] Piperacillin-Tazobactam 3 100 100 .375 gm In Sodium Chloride 0.9% 100 ml @ 25 mls/hr IVPB Q8HR [facility] Rx# :[id number] Oral 1070 222 Output: Urine 800 Stool 3 1 Other: Voiding Method Toilet Toilet Toilet # Voids 2 1 1 # Bowel Movements 1 - Exam On exam, alert and oriented x3. HEENT: Conjunctivae normal. eyes normal. NECK: No JVD. No thyroid enlargement. No LNs CARDIOVASCULAR: S1, S2 muffled. No murmur RESPIRATION: Breath sounds diminished in the bases. No rhonchi or crackles. No bronchial breathing. ABDOMEN: Soft, nontender . No guarding. no masses palpable. No ascites, No hepatosplenomegaly.Bowel sounds heard. LEGS: Patient is having status dermatitis Erick in bilateral lower extremities +1 pitting edema NERVOUS SYSTEM: Cranial N 2-12 grossly normal. Moves all 4 limbs. No focal deficits. No sensory deficit. No signs of cerebellar dysfucntion. - Labs CBC & Chem 7: 03/06/19 05:39 03/06/19 05:39 Labs: Abnormal Lab Results - Last 24 Hours (Table) 03/05/19 03/05/19 03/06/19 Range/Units 17:00 20:20 05:39 Hgb 12.7 L (13.0-17.5) gm/dL Plt Count 123 L (150-450) k/uL BUN (9-20) mg/dL Creatinine (0.66-1.25) mg/dL Glucose (74-99) mg/dL POC Glucose (mg/dL) 227 H 217 H (75-99) mg/dL 03/06/19 03/06/19 03/06/19 Range/Units 05:39 06:11 12:06 Hgb (13.0-17.5) gm/dL Plt Count (150-450) k/uL BUN 23 H (9-20) mg/dL Creatinine 1.34 H (0.66-1.25) mg/dL Glucose 127 H (74-99) mg/dL POC Glucose (mg/dL) 130 H 218 H (75-99) mg/dL Microbiology - Last 24 Hours (Table) 03/04/19 11:08 Anaerobic Culture - Preliminary Scrotum 03/02/19 16:09 Blood Culture - Preliminary Blood No Growth after 72 hours 03/04/19 11:08 Gram Stain - Preliminary Groin Wound Culture - Preliminary Group D Enterococcus Presumptive Staph aureus Assessment and Plan Assessment: - Left lower lobe pneumonia possibly gram-negative - Sepsis - Gram-negative bacteremia - Acute encephalopathy patient doing better - Diabetes mellitus - Acute on chronic renal failure kidney functions improving - History of CHF - History of atrial flutter - History of COPD - History of hypertension - History of hypothyroidism - History of anxiety Plan On 03/04/2019 - Patient is on antibiotics. Appreciated infectious disease recommendations - His ultrasound the gallbladder shows ductal dilatation possible cholecystitis. GI consulted as he had ERCP with stent placed. There is a concern for occluded stent - Pulmonology on board for pneumonia - The current medical care - We'll follow the patient On 03/05/2019 - Patient says that he's feeling weak this morning - GI consultation pending. - General surgery consulted by pulmonology and they want to wait to see what GI recommends. There are also order talk to cardiology and pulmonology for marcy vital if in case he needs cholecystectomy - We'll continue current medical history 03/06/2019 - He is on Zosyn. Blood cultures growing gram-negative bacilli. We'll wait for final cultures - Patient to get cholecystectomy either Thursday or Thursday - Continue rest of the medical care - We'll follow the patient Time with Patient: Less than 30
[2019-03-06] MEDS ORDERED: VANCOMYCIN IV PER PHARMACY 1 EACH MISC MISCELLANE PRN (15:30)
--- NOTE | 2019-03-06 16:31 | PN ---
PROGRESS NOTE DATE OF SERVICE: 03/06/2019. REASON FOR FOLLOWUP: 1. Positive culture from the groin with MRSA enterococcus faecium. 2. E coli bacteremia. INTERVAL HISTORY: The patient is a 78-year-old male presented to the hospital on 03/02/2019 with mental status changes. The patient also noticed to have elevated blood sugar and evidence of dehydration. Since the patient has been in the hospital, remains to be afebrile. He was noticed to have evidence of E coli bacteremia and workup so far did show gallbladder filled with sludge, somewhat distended. Wall thickening present. Common bile duct is dilated with concern for acute cholecystitis. The patient currently being seen both by GI and surgical team with a plan for possible cholecystectomy. Awaiting Cardiology approval. The patient also noted to have small wound on his left scrotal area. The patient complaining of some dull aching pain about 3 out of 10, and no radiation or any significant drainage. Culture obtained from the same area has been growing enterococcus faecium which is vancomycin sensitive and presumptive MRSA. Hence, I was asked to see the patient today to revisit his antibiotic therapy. The patient currently denies having any headache or chest pain or shortness of breath or cough. The patient currently denies any abdominal pain. No nausea, vomiting, or any diarrhea. REVIEW OF SYSTEMS: Positive points have been mentioned in HPI. Rest of the systems negative. PAST MEDICAL HISTORY: Reviewed. Past surgical history reviewed. ALLERGIES: TO ASPIRIN, NONSTEROIDAL ANTIINFLAMMATORY MEDICATION. MEDICATION: Medication reviewed currently getting Zosyn at 3.75 g q.8 hours. PHYSICAL EXAMINATION: Blood pressure 134/67, pulse of 49, temperature 97.3. He is 98% on room air. General description is an elderly male lying in bed in no distress. HEENT examination: No pallor or scleral icterus. Oral mucosa membranes are moist. NECK: Supple. LUNGS: Unlabored breathing. Clear to auscultation. No wheeze or crackles. HEART S1, S2. Regular rate and rhythm. ABDOMEN: Soft, no tenderness. No guarding or rigidity. GENITOURINARY: Examination of the genitourinary system: Scrotal area on the lateral side has small wound with no significant slough tissue, some surrounding erythema. No foul smelling drainage. Extremities: Some chronic swelling but no cellulitis Neurologic: The patient is awake, alert. Mood and affect normal. LABS: Hemoglobin is 12.7, white count 6.1. BUN of 10.3, creatinine 1.34. Electrolytes have been normal. His blood culture with E coli sensitive pathogen. Wound culture from the scrotal area with . DIAGNOSTIC IMPRESSION AND PLAN: 1. Patient with E coli bacteremia, source is likely ascending cholangitis. This patient did have evidence of and dilated CBD. 2. The patient with left scrotal area wound with secondary cellulitis. Culture positive for the Enterococcus faecium and MRSA. PLAN: 1. Discontinue the Zosyn. 2. Will start the patient on Rocephin 2 g daily to cover for the E coli bacteremia . 3. We will add vancomycin, pharmacy to dose target of 15 while watching to cover for the scrotal cellulitis. 4. We will follow up on the clinical condition and culture, and further adjust medication if needed. MMODL / IJN: [id number] /
[2019-03-06 17:21] LABS: Glucose,Whole Blood 202 mg/dL (75-99)
[2019-03-06] MEDS: VANCOMYCIN 1,750 MG in SODIUM CHLORIDE 0.9% 500 ML 500 ML IVPB SCH (17:21)
[2019-03-06 20:54] LABS: Glucose,Whole Blood 196 mg/dL (75-99)
[2019-03-06] MEDS: INSULIN DETEMIR (LEVEMIR) 100 UNIT/ML SYR SQ SCH (21:25)
[2019-03-07 05:45] LABS: Glucose,Whole Blood 153 mg/dL (75-99)
[2019-03-07 06:36] LABS: Basophils % (A) 1 %; Eosinophils # (A) 0.2 k/uL (0-0.7); Eosinophils % (A) 4 %; HCT 39.1 % (39.0-53.0); HGB 13.1 gm/dL (13.0-17.5); Lymphocytes % (A) 33 %; MCHC 33.4 g/dL (31.0-37.0); Mean Platelet Volume 8.8; Monocytes # (A) 0.5 k/uL (0-1.0); Monocytes % (A) 8 %; Neutrophils % (A) 51 %; Platelet Count 132 k/uL (150-450); RBC 4.35 m/uL (4.30-5.90); RDW 14.3 % (11.5-15.5); WBC 5.9 k/uL (3.8-10.6)
[2019-03-07 06:43] LABS: Calcium 8.5 mg/dL (8.4-10.2)
[2019-03-07] MEDS: INSULIN ASPART (NovoLOG) 100 UNIT/ML VIAL SQ SCH ×4 (06:55→21:36)
[2019-03-07] MEDS: CARBIDOPA-LEVODOPA 25-100 MG 1 EACH TAB PO SCH ×3 (06:55→16:46)
[2019-03-07] MEDS: PANTOPRAZOLE 40 MG TABLET PO SCH (06:55)
[2019-03-07] MEDS: LEVOTHYROXINE 88 MCG TAB PO SCH (06:55)
[2019-03-07] MEDS: METOPROLOL TARTRATE 25 MG TAB PO SCH (09:04)
[2019-03-07] MEDS: AMIODARONE 200 MG TAB PO SCH (09:05)
[2019-03-07] MEDS: FUROSEMIDE 40 MG TAB PO SCH ×2 (09:05→16:46)
[2019-03-07] MEDS: FLUTICASONE 50MCG/SPRAY NASAL 16GM EA NOSTRIL SCH (09:05)
[2019-03-07] MEDS: VANCOMYCIN 1,750 MG in SODIUM CHLORIDE 0.9% 500 ML 500 ML IVPB SCH (09:05)
[2019-03-07 11:46] LABS: Glucose,Whole Blood 175 mg/dL (75-99)
--- NOTE | 2019-03-07 12:39 | P.PN ---
Subjective Progress Note Date: 03/07/19 Principal diagnosis: Paroxysmal atrial fibrillation This is a 78-year-old gentleman with a past medical history significant for obesity, diabetes, hypertension, and paroxysmal atrial fibrillation, who was admitted to the hospital initially with a change in mental status. The patient was seen subsequently by the surgical team and he was diagnosed with gallbladder disease and he is going to undergo cholecystectomy tomorrow morning. On follow-up with him today, 03/07/2019, he seems to be asymptomatic from the cardiovascular standpoint of view. He seems to be euvolemic on examination beside mild and chronic lower 70s edema. The oral anticoagulation with Eliquis is on hold at this point for the surgery. From the cardiac standpoint, the patient can proceed with the surgery Objective - Vital Signs Vital signs: Vital Signs Temp 97.6 F 03/07/19 09:35 Pulse 59 L 03/07/19 09:35 Resp 19 03/07/19 09:35 BP 117/51 03/07/19 09:35 Pulse Ox 96 03/07/19 09:35 Intake & Output 03/06/19 03/07/19 03/07/19 18:59 06:59 18:59 Intake Total 1302 1000 480 Output Total 600 1 Balance 702 1000 479 Weight 109 kg Intake: IV 100 Piperacillin-Tazobactam 3 100 .375 gm In Sodium Chloride 0.9% 100 ml @ 25 mls/hr IVPB Q8HR [facility] Rx# :[id number] Intake, IV Titration 550 500 Amount Vancomycin 1,750 mg In 500 500 Sodium Chloride 0.9% 500 ml 500 ml @ 167 mls/hr IVPB Q24HR [facility] Rx#: [id number] cefTRIAXone 2 gm In 50 Sodium Chloride 0.9% 50 ml @ 100 mls/hr IVPB Q24HR [facility] Rx#:[id number] Oral 652 500 480 Output: Urine 600 Stool 1 Other: Voiding Method Toilet Toilet Toilet # Voids 2 1 # Bowel Movements 1 - Constitutional General appearance: Present: no acute distress - Respiratory Respiratory: bilateral: diminished - Cardiovascular Rhythm: regular Heart sounds: normal: S1, S2 - Labs CBC & Chem 7: 03/07/19 06:01 03/07/19 06:01 Labs: Abnormal Lab Results - Last 24 Hours (Table) 03/06/19 03/06/19 03/07/19 Range/Units 16:56 20:44 05:44 Plt Count (150-450) k/uL Creatinine (0.66-1.25) mg/dL Glucose (74-99) mg/dL POC Glucose (mg/dL) 202 H 196 H 153 H (75-99) mg/dL 03/07/19 03/07/19 03/07/19 Range/Units 06:01 06:01 11:37 Plt Count 132 L (150-450) k/uL Creatinine 1.29 H (0.66-1.25) mg/dL Glucose 139 H (74-99) mg/dL POC Glucose (mg/dL) 175 H (75-99) mg/dL Microbiology - Last 24 Hours (Table) 03/04/19 11:08 Gram Stain - Final Groin Wound Culture - Final Enterococcus faecium Methicillin resist S. aureus 03/02/19 16:09 Blood Culture - Preliminary Blood No Growth after 96 hours 03/04/19 11:08 Anaerobic Culture - Preliminary Scrotum Assessment and Plan Assessment: Assessment #1 paroxysmal atrial fibrillation #2 cholangitis/sepsis #3 multiple comorbid conditions Plan #1 the patient can proceed with the surgery
--- NOTE | 2019-03-07 14:06 | P.PN ---
Progress Note - Text Progress Note Date: 03/07/19 The patient is tolerating a diet. Denying any abdominal pain, nausea, vomiting. He was evaluated by cardiology who felt he was an acceptable risk for surgery. Eliquis has been held. Assessment: Repeated ascending cholangitis with sepsis Plan: We discussed laparoscopic cholecystectomy possible open. The procedure risks and complications were discussed. We also discussed nonsurgical care. He's elected to proceed with laparoscopic cholecystectomy possible open. I'll see about doing this for him tomorrow.
[2019-03-07 17:17] LABS: Glucose,Whole Blood 268 mg/dL (75-99)
--- NOTE | 2019-03-07 17:47 | PN ---
PROGRESS NOTE DATE OF SERVICE: 03/07/2019. REASON FOR FOLLOWUP: 1. E coli bacteremia secondary ascending cholangitis. 2. Left scrotal wound with secondary MRSA and Enterococcus faecium infection. INTERVAL HISTORY: The patient is currently afebrile. The patient has been breathing comfortably. Denies any chest pain or any cough. Some abdominal discomfort and pain to the scrotal area but no worsening. PHYSICAL EXAMINATION: Blood pressure 131/60 with a pulse of 43. Temperature 97.7. He is 100% on room. General description is an elderly male up in the chair in no distress. Respiratory system: Unlabored breathing. Clear to auscultation. Heart S1, S2. Regular rate and rhythm. Abdomen soft. No tenderness. Lower extremities with some chronic swelling but no redness. LABS: Hemoglobin 13.8, white count 5.9, BUN of 18, creatinine 1.29. DIAGNOSTIC IMPRESSION AND PLAN: 1. Patient with E coli bacteremia secondary to ascending cholangitis, currently covered with Rocephin 2 g daily. Once cleared by Cardiology for possible cholecystectomy. 2. Left scrotal wound with culture positive and MRSA currently covered with vancomycin to continue while monitoring his clinical course and kidney function closely. 3. Dr. Childs will resume the care as of tomorrow. MMODL / IJN: [id number] /
[2019-03-07 21:03] LABS: Glucose,Whole Blood 237 mg/dL (75-99)
--- NOTE | 2019-03-07 21:10 | P.PN ---
Subjective Principal diagnosis: On 03/04/2019 Patient just had SHOWER. He said that he is doing. He does not complain of any chest pain racing heart, no cough no shortness of breath He does not complain of any abdominal pain, nausea and vomiting, or diarrhea constipation. On 03/05/2019 Patient says that he's feeling weak today He does not complain of abdominal pain, no chest pain or racing heart, no cough no shortness breath, He does not complain of any nausea vomiting or diarrhea constipation 03/06/2019 Patient says that he was having abdominal pain last night. Is feeling better now No chest pains no racing heart 03/07/19 on abx for acute cholangitis and mrsa in wound Abd pain better today, no nausea, no vomitng Objective - Vital Signs Vital signs: Vital Signs Temp 97.4 F L 03/07/19 20:00 Pulse 52 L 03/07/19 20:00 Resp 18 03/07/19 20:00 BP 146/66 03/07/19 20:00 Pulse Ox 95 03/07/19 20:00 Intake & Output 03/07/19 03/07/19 03/08/19 06:59 18:59 06:59 Intake Total 1000 1920 Output Total 3 Balance 1000 1917 Weight 109 kg Intake: Intake, IV Titration 500 Amount Vancomycin 1,750 mg In 500 Sodium Chloride 0.9% 500 ml 500 ml @ 167 mls/hr IVPB Q24HR [facility] Rx#: [id number] Oral 500 1920 Output: Stool 3 Other: Voiding Method Toilet Toilet Urinal # Voids 1 2 # Bowel Movements 1 - Exam On exam, alert and oriented x3. HEENT: Conjunctivae normal. eyes normal. NECK: No JVD. No thyroid enlargement. No LNs CARDIOVASCULAR: S1, S2 muffled. No murmur RESPIRATION: Breath sounds diminished in the bases. No rhonchi or crackles. No bronchial breathing. ABDOMEN: Soft, nontender . No guarding. no masses palpable. No ascites, No hepatosplenomegaly.Bowel sounds heard. LEGS: Patient is having status dermatitis Erick in bilateral lower extremities +1 pitting edema NERVOUS SYSTEM: Cranial N 2-12 grossly normal. Moves all 4 limbs. No focal deficits. No sensory deficit. No signs of cerebellar dysfucntion. - Labs CBC & Chem 7: 03/07/19 06:01 03/07/19 06:01 Labs: Abnormal Lab Results - Last 24 Hours (Table) 03/07/19 03/07/19 03/07/19 Range/Units 05:44 06:01 06:01 Plt Count 132 L (150-450) k/uL Creatinine 1.29 H (0.66-1.25) mg/dL Glucose 139 H (74-99) mg/dL POC Glucose (mg/dL) 153 H (75-99) mg/dL 03/07/19 03/07/19 03/07/19 Range/Units 11:37 16:52 21:02 Plt Count (150-450) k/uL Creatinine (0.66-1.25) mg/dL Glucose (74-99) mg/dL POC Glucose (mg/dL) 175 H 268 H 237 H (75-99) mg/dL Microbiology - Last 24 Hours (Table) 03/02/19 16:09 Blood Culture - Preliminary Blood No Growth after 120 hours 03/06/19 16:22 Blood Culture - Preliminary Blood No Growth after 24 hours 03/04/19 11:08 Gram Stain - Final Groin Wound Culture - Final Enterococcus faecium Methicillin resist S. aureus Assessment and Plan Assessment: - Left lower lobe pneumonia possibly gram-negative - Sepsis - Possible acute cholangitis causing gram negative bacteremia - Gram-negative bacteremia - MRSA positive - Acute encephalopathy patient doing better - Diabetes mellitus - Acute on chronic renal failure kidney functions improving - History of CHF - History of atrial flutter - History of COPD - History of hypertension - History of hypothyroidism - History of anxiety Plan On 03/04/2019 - Patient is on antibiotics. Appreciated infectious disease recommendations - His ultrasound the gallbladder shows ductal dilatation possible cholecystitis. GI consulted as he had ERCP with stent placed. There is a concern for occluded stent - Pulmonology on board for pneumonia - The current medical care - We'll follow the patient On 03/05/2019 - Patient says that he's feeling weak this morning - GI consultation pending. - General surgery consulted by pulmonology and they want to wait to see what GI recommends. There are also order talk to cardiology and pulmonology for clearance if in case he needs cholecystectomy - We'll continue current medical history 03/06/2019 - He is on Zosyn. Blood cultures growing gram-negative bacilli. We'll wait for final cultures - Patient to get cholecystectomy either Thursday or Thursday - Continue rest of the medical care - We'll follow the patient 03/07/19 - Continue vanco and rocephin as per ID recs - Will possibly get cholecystectomy tomorrow pending cardio clearance - continue present medical care Time with Patient: Less than 30
[2019-03-07] MEDS: INSULIN DETEMIR (LEVEMIR) 100 UNIT/ML SYR SQ SCH (21:36)
[2019-03-08] MEDS: CARBIDOPA-LEVODOPA 25-100 MG 1 EACH TAB PO SCH ×3 (04:40→15:52)
[2019-03-08] MEDS: PANTOPRAZOLE 40 MG TABLET PO SCH (04:40)
[2019-03-08] MEDS: LEVOTHYROXINE 88 MCG TAB PO SCH (04:40)
[2019-03-08 05:40] LABS: Glucose,Whole Blood 217 mg/dL (75-99)
[2019-03-08] MEDS: INSULIN ASPART (NovoLOG) 100 UNIT/ML VIAL SQ SCH ×4 (06:08→21:06)
[2019-03-08 07:12] LABS: Basophils % (A) 1 %; Eosinophils # (A) 0.2 k/uL (0-0.7); Eosinophils % (A) 3 %; HCT 42.3 % (39.0-53.0); HGB 13.5 gm/dL (13.0-17.5); Lymphocytes # (A) 2.4 k/uL (1.0-4.8); Lymphocytes % (A) 35 %; MCH 28.9 pg (25.0-35.0); MCHC 31.9 g/dL (31.0-37.0); MCV 90.8 fL (80.0-100.0); Mean Platelet Volume 8.7; Monocytes # (A) 0.5 k/uL (0-1.0); Monocytes % (A) 7 %; Neutrophils # (A) 3.5 k/uL (1.3-7.7); Neutrophils % (A) 51 %; Platelet Count 169 k/uL (150-450); RBC 4.65 m/uL (4.30-5.90); RDW 14.5 % (11.5-15.5); WBC 6.9 k/uL (3.8-10.6)
[2019-03-08 07:45] LABS: Bilirubin, Delta 0.2 mg/dL (0.0-0.2); Bilirubin,Unconjugated 0.2 mg/dL (0.0-1.1); Potassium 4.3 mmol/L (3.5-5.1); Total Bilirubin 0.4 mg/dL (0.2-1.3)
[2019-03-08] MEDS: VANCOMYCIN 1,750 MG in SODIUM CHLORIDE 0.9% 500 ML 500 ML IVPB SCH (09:05)
[2019-03-08] MEDS ORDERED: IV FLUID CONTINUATION 1,000 ML IV ONE (11:21)
[2019-03-08 11:34] LABS: Glucose,Whole Blood 213 mg/dL (75-99)
[2019-03-08 11:35] VITALS: BMI 35.1
[2019-03-08] MEDS ORDERED: fentaNYL (PF) 50 MCG/ML 2 ML AMP ONE (12:00)
[2019-03-08] MEDS ORDERED: PHENYLEPHRINE-0.9% NACL SYG 1 MG/10 ML SYRINGE ONE (12:00)
[2019-03-08] MEDS ORDERED: ROCURONIUM BROMIDE 10 MG/ML 10 ML VIAL IV ONE (12:00)
[2019-03-08] MEDS ORDERED: SUCCINYLCHOLINE CHLORIDE 100 MG/5 ML SYR IV ONE (12:00)
[2019-03-08] MEDS ORDERED: MIDAZOLAM 2 MG/2 ML VIAL ONE (12:00)
[2019-03-08] MEDS ORDERED: GLYCOPYRROLATE 0.2 MG/ML 2 ML VIAL ONE (12:00)
[2019-03-08] MEDS ORDERED: LABETALOL 5 MG/ML VIAL MDV ONE (12:00)
[2019-03-08] MEDS ORDERED: ONDANSETRON 4 MG/2 ML VIAL ONE (12:00)
[2019-03-08] MEDS ORDERED: NEOSTIGMINE 1 MG/ML 10 ML VIAL ONE (12:00)
[2019-03-08] MEDS ORDERED: LIDOCAINE 1% INJ 10MG/ML (20 ML MDV) ONE (12:00)
[2019-03-08] MEDS ORDERED: PROPOFOL 10 MG/ML 20 ML VIAL IV ONE (12:00)
--- NOTE | 2019-03-08 12:04 | CDI ---
Documentation Clarification Form Date: 03/08/2019 11:47:55 AM From: Laly Muñoz RN CCDS Admit Date: 03/02/2019 2:53:00 PM Patient Name: Dayday Peterson Visit Number: [id number] Discharge Date: ATTENTION: The Clinical Documentation Specialists (CDI) and [facility] Coding Staff appreciate your assistance in clarifying documentation. Please respond to the clarification below the line at the bottom and electronically sign. The CDI & [facility] Coding staff will review the response and follow-up if needed. Please note: Queries are made part of the Legal Health Record. If you have any questions, please contact the author of this message via ITS. Dr. Kirstie Isbell MD Patient was admitted with Acute Metabolic Encephalopathy and Sepsis History/Risk Factors: 78 year old male with a medical history of CHF; COPD; HTN ; Bacteremia with klebsiella. Clinical Indicators: Current BUN 31 /CR 2.05/ GFR30 : 03/04/2019 BUN 35 / CR 1.41/ GFR 48 03/08/2019 BUN 17 / CR 1.13 / GFR 63 Patients Baseline Unknown Treatment: IVF 2L 0.9ns bolus @ 100cc/hr In order to capture the severity of condition, please clarify if the condition signifies: * CKD Stage 3 (GFR 30-59) * CKD Stage 4 (GFR 15-29) * Other, please specify * Unable to determine (Last Revision: January 2018) CKD Stage 3 (GFR 30-59) MTDD
[2019-03-08] MEDS ORDERED: BUPIVACAINE (PF) 0.5% 30 ML VIAL SQ ONE ×2 (12:23→13:13)
[2019-03-08] MEDS ORDERED: HYDROcodone/APAP 5-325MG 1 EACH TAB PO PRN ×2 (13:16)
[2019-03-08] MEDS ORDERED: ONDANSETRON 4 MG/2 ML VIAL IVP PRN (13:16)
[2019-03-08] MEDS ORDERED: NALOXONE 0.4 MG/ML 1 ML VIAL IV PRN (13:16)
--- NOTE | 2019-03-08 13:21 | P.OP ---
Date of Procedure: 03/08/19 Preoperative Diagnosis: Cholangitis, biliary sepsis Postoperative Diagnosis: Same Procedure(s) Performed: Laparoscopic cholecystectomy with placement of SHAHID drain Anesthesia: EVA Surgeon: Fanny Olmstead Estimated Blood Loss (ml): 50 Pathology: other (Gallbladder) Condition: stable Disposition: PACU Indications for Procedure: The patient has had admissions with sepsis of biliary cause. Due to the recurrent nature a laparoscopic cholecystectomy is recommended Description of Procedure: The patient's taken the operative suite where he is prepped and draped in the usual sterile manner under general endotracheal anesthetic. A supraumbilical incision was made and a Veress needle was placed into the abdominal cavity. Pneumoperitoneum was established with CO2 gas. Sites are chosen for accessory trochars and these are placed through small skin incisions. The gallbladder was markedly distended. The wall was a little thickened. It was not easy for the instruments to grasp the gallbladder. Therefore the gallbladder was decompressed of about 300 mL's of bile. Some adhesions of the omentum were then taken down either sharply or with cautery. Alfredo's pouch is identified along with the node. The cystic artery and cystic duct are dissected free. They are triply clipped and cut. The gallbladder size dissected from the liver bed. Small bleeding points were controlled with electrocautery. The gallbladder is placed into a specimen retrieval bag. The liver bed is reexamined. No active bleeding is noted that there is little oozing. He had been on elequis until yesterday. Decision was made to place a drain in a channel drain was placed into the liver bed and brought out through a right lateral trocar site. The excess irrigant is suctioned out. The pneumoperitoneum was released. The trochars were removed. The skin and the fascia at the umbilicus had to be extended slightly to remove the gallbladder. The fascia at the umbilicus was closed with 0 Vicryl. The skin incisions were closed with afia. Sterile dressings were applied. He tolerated the procedure without difficulty and was taken recovery room in satisfactory condition. According to or personnel, all counts are correct.
[2019-03-08] MEDS ORDERED: ONDANSETRON 4 MG/2 ML VIAL IVP ONE (13:39)
[2019-03-08 13:47] LABS: Glucose,Whole Blood 255 mg/dL (75-99)
[2019-03-08] MEDS: HYDROmorphone 0.5 MG/0.5 ML SYRINGE IVP PRN ×2 (13:56→14:10)
[2019-03-08] MEDS ORDERED: INSULIN ASPART (NovoLOG) 100 UNIT/ML VIAL SQ ONE (14:02)
[2019-03-08] MEDS: FUROSEMIDE 40 MG TAB PO SCH ×2 (15:32→15:52)
[2019-03-08] MEDS: LACTATED RINGERS 1,000 ML IV SCH (15:35)
[2019-03-08] MEDS: AMIODARONE 200 MG TAB PO SCH (15:52)
[2019-03-08] MEDS: METOPROLOL TARTRATE 25 MG TAB PO SCH (15:52)
[2019-03-08] MEDS: FLUTICASONE 50MCG/SPRAY NASAL 16GM EA NOSTRIL SCH (15:53)
[2019-03-08 17:06] LABS: Glucose,Whole Blood 181 mg/dL (75-99)
[2019-03-08 21:00] LABS: Glucose,Whole Blood 183 mg/dL (75-99)
[2019-03-08] MEDS: INSULIN DETEMIR (LEVEMIR) 100 UNIT/ML SYR SQ SCH (21:06)
--- NOTE | 2019-03-09 00:17 | P.PN ---
Subjective Progress Note Date: 03/08/19 This is a 78-year-old male patient who was last seen during his hospitalization in October of this year which time he was treated for Klebsiella pneumoniae bacteremia and pneumonia and discharged home on ciprofloxacin. He was subsequently admitted in December for ascending acute cholangitis ampule stenosis. At this time, patient presents to the hospital with complaints of mental status changes. According to his , he started staring off and doesn't make good eye contact and she knows that there is something wrong. He also had a fall at home where he slipped from a chair. He denies any injuries. He was brought in by EMS to [facility] emergency center for evaluation found to be afebrile, initial white count 12.6 and repeat 17, creatinine 2.15, blood sugar 516, lactic acid up to 5.3 with repeated 2.2. Urinalysis positive for glucose and ketones. Acetone was negative and serum alcohol less than 10. Troponin 0.042. Albumin was 3.6. AST 126, ALT 68 and alkaline phosphatase 287, ammonia level IX, CK 37. Patient remains somewhat confused during this evaluation. He apparently has not eaten very much since admission. He denies any problem with his appetite but does not like the food. He has been urinating sufficient quantities. He denies any dysuria. Has been no nausea or vomiting. Patient has had loose stools but not diarrhea. He denies any abdominal pain. No chest pain but he does have tenderness on the left lateral chest wall. No shortness of breath. Patient was started on azithromycin and Zosyn and admitted to the cardiac stepdown unit. He has been seen by cardiology as he had episode of atrial flutter currently in a sinus bradycardia and also it elevated troponins. Dr. Swan is on consult for evaluation of pneumonia. Chest x-ray reveals low lung volumes however improved aeration of the lung bases. No residual focal consolidation. Blood cultures status received. 03/08/2019 patient seems comfortable in the postoperative time frame from his laparoscopic cholecystectomy for his ascending cholangitis. Objective - Vital Signs Vital signs: Vital Signs Temp 98.3 F 03/08/19 22:40 Pulse 68 03/08/19 22:40 Resp 16 03/08/19 22:40 BP 158/84 03/08/19 22:40 Pulse Ox 95 03/08/19 22:40 Intake & Output 03/08/19 03/08/19 03/09/19 06:59 18:59 06:59 Intake Total 600 810 100 Output Total 378 175 Balance 600 432 -75 Weight 107.9 kg 107.9 kg Intake: IV 330 Oral 600 480 100 Output: Urine 350 175 Stool 3 Estimated Blood Loss 25 Other: Voiding Method Urinal Urinal Toilet Urinal # Voids 2 - Exam Gen: This is a 78-year-old male. He is in a recliner and appears to be comfortable and in no acute distress. HEENT: Head is atraumatic, normocephalic. Pupils equal, round. Sclerae is anicteric. Oral mucous membranes are moist. Upper dentures in place. Patient's attention was and the bottom. No thrush noted. NECK: Supple. No JVD. No lymphadenopathy. No thyromegaly. LUNGS: Diminished bilaterally. No intercostal retractions. HEART: Regular rate and rhythm. No murmur. ABDOMEN: Soft. Bowel sounds are present. No masses. No tenderness. EXTREMITIES: Chronic bilateral lower extremity edema and dryness. No open ulcers at this time. Dorsalis pedis +1 bilaterally. NEUROLOGICAL: Patient arousable but sleepy postoperative - Labs CBC & Chem 7: 03/08/19 06:12 03/08/19 06:12 Labs: Abnormal Lab Results - Last 24 Hours (Table) 03/08/19 03/08/19 03/08/19 Range/Units 05:38 06:12 11:32 Glucose 249 H (74-99) mg/dL POC Glucose (mg/dL) 217 H 213 H (75-99) mg/dL 03/08/19 03/08/19 03/08/19 Range/Units 13:44 16:51 20:59 Glucose (74-99) mg/dL POC Glucose (mg/dL) 255 H 181 H 183 H (75-99) mg/dL Microbiology - Last 24 Hours (Table) 03/02/19 16:09 Blood Culture - Final Blood No Growth after 144 hours 03/06/19 16:22 Blood Culture - Preliminary Blood No Growth after 48 hours 03/04/19 11:08 Anaerobic Culture - Final Scrotum 03/04/19 11:08 Gram Stain - Final Groin Wound Culture - Final Enterococcus faecium Methicillin resist S. aureus Laboratory Results WBC 6.9 k/uL (3.8-10.6) 03/08/19 06:12 RBC 4.65 m/uL (4.30-5.90) 03/08/19 06:12 Hgb 13.5 gm/dL (13.0-17.5) 03/08/19 06:12 Hct 42.3 % (39.0-53.0) 03/08/19 06:12 MCV 90.8 fL (80.0-100.0) 03/08/19 06:12 MCH 28.9 pg (25.0-35.0) 03/08/19 06:12 MCHC 31.9 g/dL (31.0-37.0) 03/08/19 06:12 RDW 14.5 % (11.5-15.5) 03/08/19 06:12 Plt Count 169 k/uL (150-450) 03/08/19 06:12 Neutrophils % 51 % 03/08/19 06:12 Neutrophils % (Manual) 75 % 03/02/19 09:20 Band Neutrophils % 15 % 03/02/19 09:20 Lymphocytes % 35 % 03/08/19 06:12 Lymphocytes % (Manual) 5 % 03/02/19 09:20 Monocytes % 7 % 03/08/19 06:12 Monocytes % (Manual) 5 % 03/02/19 09:20 Eosinophils % 3 % 03/08/19 06:12 Basophils % 1 % 03/08/19 06:12 Basophils % (Manual) 1 % 03/02/19 09:20 Metamyelocytes % 1 % 03/02/19 09:20 Neutrophils # 3.5 k/uL (1.3-7.7) 03/08/19 06:12 Neutrophils # (Manual) 11.30 k/uL (1.3-7.7) H 03/02/19 09:20 Lymphocytes # 2.4 k/uL (1.0-4.8) 03/08/19 06:12 Lymphocytes # (Manual) 0.63 k/uL (1.0-4.8) L 03/02/19 09:20 Monocytes # 0.5 k/uL (0-1.0) 03/08/19 06:12 Monocytes # (Manual) 0.63 k/uL (0-1.0) 03/02/19 09:20 Eosinophils # 0.2 k/uL (0-0.7) 03/08/19 06:12 Basophils # 0.0 k/uL (0-0.2) 03/08/19 06:12 Basophils # (Manual) 0.13 k/uL (0-0.2) 03/02/19 09:20 Metamyelocytes # (Man) 0.13 k/uL (0) H 03/02/19 09:20 Nucleated RBCs 0 /100 WBC (0-0) 03/02/19 09:20 Manual Slide Review Performed 03/02/19 09:20 Poikilocytosis (manual Present 03/02/19 09:20 PT 10.2 sec (9.0-12.0) 03/02/19 09:20 INR 0.9 (<1.2) 03/02/19 09:20 Sodium 139 mmol/L (137-145) 03/08/19 06:12 Potassium 4.3 mmol/L (3.5-5.1) 03/08/19 06:12 Chloride 103 mmol/L (98-107) 03/08/19 06:12 Carbon Dioxide 26 mmol/L (22-30) 03/08/19 06:12 Anion Gap 10 mmol/L 03/08/19 06:12 BUN 17 mg/dL (9-20) 03/08/19 06:12 Creatinine 1.13 mg/dL (0.66-1.25) 03/08/19 06:12 Est GFR (CKD-EPI)AfAm 72 (>60 ml/min/1.73 sqM) 03/08/19 06:12 Est GFR (CKD-EPI)NonAf 63 (>60 ml/min/1.73 sqM) 03/08/19 06:12 Glucose 249 mg/dL (74-99) H 03/08/19 06:12 POC Glucose (mg/dL) 183 mg/dL (75-99) H 03/08/19 20:59 POC Glu [employer] ID Anamika Peres 03/08/19 20:59 Lactic Ac Sepsis Rflx Y 03/03/19 07:37 Plasma Lactic Acid Riley 1.8 mmol/L (0.7-2.0) 03/04/19 15:36 Calcium 9.0 mg/dL (8.4-10.2) 03/08/19 06:12 Magnesium 1.8 mg/dL (1.6-2.3) 03/06/19 05:39 Total Bilirubin 0.4 mg/dL (0.2-1.3) 03/08/19 06:12 Conjugated Bilirubin 0.0 mg/dL (0.0-0.3) 03/08/19 06:12 Unconjugated Bilirubin 0.2 mg/dL (0.0-1.1) 03/08/19 06:12 Delta Bilirubin 0.2 mg/dL (0.0-0.2) 03/08/19 06:12 AST 22 U/L (17-59) 03/08/19 06:12 ALT 33 U/L (21-72) 03/08/19 06:12 Alkaline Phosphatase 238 U/L (38-126) H 03/04/19 15:07 Ammonia 9 umol/L (<30) 03/02/19 09:20 Total Creatine Kinase 37 U/L (55-170) L 03/02/19 09:20 CK-MB (CK-2) 0.7 ng/mL (0.0-2.4) 03/02/19 09:20 CK-MB (CK-2) Rel Index 1.9 03/02/19 09:20 Troponin I 0.042 ng/mL (0.000-0.034) H* 03/02/19 09:20 Total Protein 5.7 g/dL (6.3-8.2) L 03/04/19 15:07 Albumin 3.0 g/dL (3.5-5.0) L 03/04/19 15:07 Lipase 48 U/L (23-300) 03/02/19 09:20 TSH 3.610 mIU/L (0.465-4.680) 03/03/19 06:47 Urine Color Yellow 03/02/19 12:09 Urine Appearance Clear (Clear) 03/02/19 12:09 Urine pH 5.5 (5.0-8.0) 03/02/19 12:09 Ur Specific [place] 1.029 (1.001-1.035) 03/02/19 12:09 Urine Protein Trace (Negative) H 03/02/19 12:09 Urine Glucose (UA) 4+ (Negative) H 03/02/19 12:09 Urine Ketones Trace (Negative) H 03/02/19 12:09 Urine Blood Negative (Negative) 03/02/19 12:09 Urine Nitrite Negative (Negative) 03/02/19 12:09 Urine Bilirubin Negative (Negative) 03/02/19 12:09 Urine Urobilinogen <2.0 mg/dL (<2.0) 03/02/19 12:09 Ur Leukocyte Esterase Negative (Negative) 03/02/19 12:09 Serum Alcohol <10 mg/dL 03/02/19 09:20 Acetone, Qual Negative (Negative) 03/02/19 09:20 Microbiology 03/02/19 16:09 Blood Blood Culture - Final No Growth after 144 hours 03/06/19 16:22 Blood Blood Culture - Preliminary No Growth after 48 hours 03/04/19 11:08 Scrotum Anaerobic Culture - Final 03/04/19 11:08 Groin Gram Stain - Final 03/04/19 11:08 Groin Wound Culture - Final Enterococcus faecium Methicillin resist S. aureus 03/02/19 09:28 Blood Blood Culture Gram Stain - Final 03/02/19 09:28 Blood Blood Culture - Final Escherichia coli 03/02/19 09:28 Blood Blood Culture - Final Assessment and Plan (1) Ascending cholangitis Narrative/Plan: 78-year-old Patient presents to Hospital from home setting and that the patient was having worsening of his mental status and apparently had a fall at home or he slipped out of his chair. Consequently EMS was called and brought to hospital. Is evidence of leukocytosis and concerns to sepsis. The patient was recently hospitalized and did have evidence of cholangitis and stenosis that required an ERCP and sphincterotomy to improve. Patient does have evidence of an elevated AST and total bilirubin. May have recurrence of his cholangitis. Currently receiving antibiotic therapy with Rocephin and azithromycin with concerns pneumonia. The computed tomography scan has been performed there is no evidence of any new infiltrates. Antibiotic therapy transition to piperacillin tazobactam for coverage of biliary sepsis based on his history. He has had E. coli and Klebsiella infections in the past. Continue supportive care. Cultures were further help direct course of therapy. May require further evaluation by gastroenterology given his history. 03/08/2019 the patient is now status post laparoscopic cholecystectomy for his recurrent biliary sepsis. He is resting comfortably and doing well with current antibiotic therapy. We'll continue Zosyn and vancomycin for now until we have further data. Pathology is pending. Patient is comfortable, clear liquid diet for now surgery will advance as possible. Continue local wound care. Current Visit: No Status: Acute Code(s): K83.09 - OTHER CHOLANGITIS SNOMED Code(s): 36543114 (2) Gram-negative bacteremia Current Visit: No Status: Acute Code(s): R78.81 - BACTEREMIA SNOMED Code(s): 440582822885
[2019-03-09 01:59] LABS: Glucose,Whole Blood 170 mg/dL (75-99)
[2019-03-09] MEDS: LEVOTHYROXINE 88 MCG TAB PO SCH (05:34)
[2019-03-09] MEDS: INSULIN ASPART (NovoLOG) 100 UNIT/ML VIAL SQ SCH ×4 (08:14→22:47)
[2019-03-09] MEDS: PANTOPRAZOLE 40 MG TABLET PO SCH (08:14)
[2019-03-09] MEDS: METOPROLOL TARTRATE 25 MG TAB PO SCH (08:15)
[2019-03-09] MEDS: AMIODARONE 200 MG TAB PO SCH (08:15)
[2019-03-09] MEDS: CARBIDOPA-LEVODOPA 25-100 MG 1 EACH TAB PO SCH ×3 (08:15→17:46)
[2019-03-09] MEDS: FUROSEMIDE 40 MG TAB PO SCH ×2 (08:15→16:31)
--- NOTE | 2019-03-09 09:09 | P.PN ---
Subjective Progress Note Date: 03/09/19 Principal diagnosis: S/P laparoscopic cholecystectomy for recurrent ascending cholangitis The patient is doing fairly well. Having some expected post operative pain, but denies need for pain medications. Tolerating a diet. Objective - Vital Signs Vital signs: Vital Signs Temp 98.0 F 03/09/19 00:44 Pulse 50 L 03/09/19 00:44 Resp 15 03/09/19 00:44 BP 150/65 03/09/19 00:44 Pulse Ox 91 L 03/09/19 00:46 Intake & Output 03/08/19 03/09/19 03/09/19 18:59 06:59 18:59 Intake Total 810 150 Output Total 378 240 60 Balance 432 -90 -60 Weight 107.9 kg Intake: IV 330 Intake, IV Titration 50 Amount Lactated Ringers 1,000 ml 50 @ 20 mls/hr IV .Q24H [facility] Rx#:[id number] Oral 480 100 Output: Drainage 65 60 Anterior Abdomen 65 60 Urine 350 175 Stool 3 Estimated Blood Loss 25 Other: Voiding Method Urinal Toilet Urinal # Voids 2 5 - Constitutional General appearance: Present: cooperative, no acute distress - Gastrointestinal General gastrointestinal: Present: normal bowel sounds, soft Localized gastrointestinal: surgical scar: diffuse (dressing intact clean and d ry. SHAHID with serosang drainage) - Labs CBC & Chem 7: 03/08/19 06:12 03/08/19 06:12 Labs: Abnormal Lab Results - Last 24 Hours (Table) 03/08/19 03/08/19 03/08/19 Range/Units 11:32 13:44 16:51 POC Glucose (mg/dL) 213 H 255 H 181 H (75-99) mg/dL 03/08/19 03/09/19 Range/Units 20:59 01:57 POC Glucose (mg/dL) 183 H 170 H (75-99) mg/dL Microbiology - Last 24 Hours (Table) 03/02/19 16:09 Blood Culture - Final Blood No Growth after 144 hours 03/06/19 16:22 Blood Culture - Preliminary Blood No Growth after 48 hours 03/04/19 11:08 Anaerobic Culture - Final Scrotum 03/04/19 11:08 Gram Stain - Final Groin Wound Culture - Final Enterococcus faecium Methicillin resist S. aureus Assessment and Plan (1) Lactic acidosis Current Visit: Yes Status: Acute Code(s): E87.2 - ACIDOSIS SNOMED Code(s): 37179635 (2) Ampullary stenosis Current Visit: No Status: Acute Code(s): K83.1 - OBSTRUCTION OF BILE DUCT SNOMED Code(s): 912214827 (3) Ascending cholangitis Current Visit: No Status: Acute Code(s): K83.09 - OTHER CHOLANGITIS SNOMED Code(s): 61756071 (4) Sepsis Current Visit: No Status: Acute Code(s): A41.9 - SEPSIS, UNSPECIFIED ORGANISM SNOMED Code(s): 15547968 Plan: Surgically stable. May discharge if LFT's are normalizing and he is okayed from infectious disease standpoint. Drain to be removed before discharge
[2019-03-09] MEDS: FLUTICASONE 50MCG/SPRAY NASAL 16GM EA NOSTRIL SCH (10:22)
[2019-03-09] MEDS: VANCOMYCIN 1,750 MG in SODIUM CHLORIDE 0.9% 500 ML 500 ML IVPB SCH (10:56)
[2019-03-09 11:01] LABS: Albumin 3.1 g/dL (3.5-5.0); Calcium 8.7 mg/dL (8.4-10.2); Potassium 4.3 mmol/L (3.5-5.1); Total Bilirubin 0.5 mg/dL (0.2-1.3); Total Protein 5.8 g/dL (6.3-8.2)
[2019-03-09 12:50] LABS: Glucose,Whole Blood 256 mg/dL (75-99)
[2019-03-09] MEDS: LACTATED RINGERS 1,000 ML IV SCH (12:53)
[2019-03-09 17:15] LABS: Glucose,Whole Blood 231 mg/dL (75-99)
[2019-03-09 20:12] LABS: Glucose,Whole Blood 257 mg/dL (75-99)
[2019-03-09 22:31] LABS: Glucose,Whole Blood 246 mg/dL (75-99)
[2019-03-09] MEDS: INSULIN DETEMIR (LEVEMIR) 100 UNIT/ML SYR SQ SCH (22:46)
--- NOTE | 2019-03-09 23:24 | P.PN ---
Subjective Progress Note Date: 03/08/19 Principal diagnosis: Acute cholangitis Gram-negative bacteremia This is a 78-year-old gentleman with a past medical history significant for obesity, diabetes, hypertension, and paroxysmal atrial fibrillation, who was admitted to the hospital initially with a change in mental status. The patient was seen subsequently by the surgical team and he was diagnosed with gallbladder disease . Patient recently had ERCP with dilation of the sphincter. 03/08/2019 Patient is complaining of right upper quadrant discomfort and pain. Scheduled for cholecystectomy today. Patient is being treated for biliary Sepsis/ acute cholangitis. Currently on antibiotics in the form of vancomycin and ceftriaxone. No complaints of fever or chills. Initial blood cultures grew E. coli. Repeat blood cultures have been negative. No evidence of pneumonia on the CT chest. ID is on board. No complaints of chest pain or shortness of breath. No nausea vomiting or diarrhea. Current medications reviewed. Objective - Vital Signs Vital signs: Vital Signs Temp 97.9 F 03/08/19 20:00 Pulse 56 L 03/08/19 20:00 Resp 18 03/08/19 20:00 BP 153/70 03/08/19 20:00 Pulse Ox 92 L 03/08/19 20:00 Intake & Output 03/08/19 03/08/19 03/09/19 06:59 18:59 06:59 Intake Total 600 810 100 Output Total 378 175 Balance 600 432 -75 Weight 107.9 kg 107.9 kg Intake: IV 330 Oral 600 480 100 Output: Urine 350 175 Stool 3 Estimated Blood Loss 25 Other: Voiding Method Urinal Urinal Toilet Urinal # Voids 2 - Exam On exam, alert and oriented x3. HEENT: Conjunctivae normal. eyes normal. NECK: No JVD. No thyroid enlargement. No LNs CARDIOVASCULAR: S1, S2 muffled. No murmur RESPIRATION: Breath sounds diminished in the bases. No rhonchi or crackles. No bronchial breathing. ABDOMEN: Soft, nontender . No guarding. no masses palpable. No ascites, No hepatosplenomegaly.Bowel sounds heard. LEGS: Patient is having status dermatitis Erick in bilateral lower extremities +1 pitting edema NERVOUS SYSTEM: Cranial N 2-12 grossly normal. Moves all 4 limbs. No focal deficits. No sensory deficit. No signs of cerebellar dysfucntion. - Labs CBC & Chem 7: 03/08/19 06:12 05/29/19 09:52 Labs: Abnormal Lab Results - Last 24 Hours (Table) 03/08/19 03/08/19 03/08/19 Range/Units 05:38 06:12 11:32 Glucose 249 H (74-99) mg/dL POC Glucose (mg/dL) 217 H 213 H (75-99) mg/dL 03/08/19 03/08/19 03/08/19 Range/Units 13:44 16:51 20:59 Glucose (74-99) mg/dL POC Glucose (mg/dL) 255 H 181 H 183 H (75-99) mg/dL Microbiology - Last 24 Hours (Table) 03/02/19 16:09 Blood Culture - Final Blood No Growth after 144 hours 03/06/19 16:22 Blood Culture - Preliminary Blood No Growth after 48 hours 03/04/19 11:08 Anaerobic Culture - Final Scrotum 03/04/19 11:08 Gram Stain - Final Groin Wound Culture - Final Enterococcus faecium Methicillin resist S. aureus Assessment and Plan Assessment: - Sepsis with gram-negative septicemia - Acute cholangitis causing gram negative bacteremia - Gram-negative bacteremia with E. coli - MRSA positive - Acute metabolic encephalopathy secondary to infection. patient doing better - Diabetes mellitus2 - Acute on chronic renal failure kidney functions improving - History of CHF - Paroxysmal atrial fibrillation/ atrial flutter - History of COPD stable. - History of hypertension - History of hypothyroidism - History of anxiety Plan: Patient is scheduled for laparoscopic cholecystectomy today. Continue with antibiotics in the form of ceftriaxone and vancomycin as per ID recommendations. Patient is being followed by general surgery, ID and cardiology. Resume Eliquis after surgery. Continue with current management. Further recommendations based on the clinical course. Prognosis is guarded. Time with Patient: Greater than 30
--- NOTE | 2019-03-09 23:31 | P.PN ---
Subjective Progress Note Date: 03/09/19 Principal diagnosis: Acute cholangitis Gram-negative bacteremia This is a 78-year-old gentleman with a past medical history significant for obesity, diabetes, hypertension, and paroxysmal atrial fibrillation, who was admitted to the hospital initially with a change in mental status. The patient was seen subsequently by the surgical team and he was diagnosed with gallbladder disease . Patient recently had ERCP with dilation of the sphincter. 03/08/2019 Patient is complaining of right upper quadrant discomfort and pain. Scheduled for cholecystectomy today. Patient is being treated for biliary Sepsis/ acute cholangitis. Currently on antibiotics in the form of vancomycin and ceftriaxone. No complaints of fever or chills. Initial blood cultures grew E. coli. Repeat blood cultures have been negative. No evidence of pneumonia on the CT chest. ID is on board. No complaints of chest pain or shortness of breath. No nausea vomiting or diarrhea. 03/09/2019 Patient says that his abdominal pain is better today. Status post laparoscopic cholecystectomy. Repeat cultures have been negative. Continued on IV antibiotics in the form of ceftriaxone and vancomycin. No fever no chills. No nausea vomiting or diarrhea. Tolerating oral diet. No complaints of chest pain or shortness of breath. No cough or sputum production. Liver enzymes are trending down. We will resume Eliquis 5 mg twice a day. Current medications reviewed. Objective - Vital Signs Vital signs: Vital Signs Temp 98.6 F 03/09/19 19:34 Pulse 46 L 03/09/19 19:34 Resp 15 03/09/19 19:34 BP 143/65 03/09/19 19:34 Pulse Ox 96 03/09/19 19:34 Intake & Output 03/09/19 03/09/19 03/10/19 06:59 18:59 06:59 Intake Total 150 Output Total 240 170 Balance -90 -170 Intake: Intake, IV Titration 50 Amount Lactated Ringers 1,000 ml 50 @ 20 mls/hr IV .Q24H [facility] Rx#:[id number] Oral 100 Output: Drainage 65 170 Anterior Abdomen 65 170 Urine 175 Other: Voiding Method Toilet Urinal # Voids 5 2 2 - Exam On exam, alert and oriented x3. HEENT: Conjunctivae normal. eyes normal. NECK: No JVD. No thyroid enlargement. No LNs CARDIOVASCULAR: S1, S2 muffled. No murmur RESPIRATION: Breath sounds diminished in the bases. No rhonchi or crackles. No bronchial breathing. ABDOMEN: Soft, nontender . No guarding. no masses palpable. No ascites, No hepatosplenomegaly.Bowel sounds heard. LEGS: Patient is having status dermatitis Erick in bilateral lower extremities +1 pitting edema NERVOUS SYSTEM: Cranial N 2-12 grossly normal. Moves all 4 limbs. No focal deficits. No sensory deficit. No signs of cerebellar dysfucntion. - Labs CBC & Chem 7: 03/08/19 06:12 03/09/19 09:52 Labs: Abnormal Lab Results - Last 24 Hours (Table) 03/09/19 03/09/19 03/09/19 Range/Units 01:57 09:52 12:48 Carbon Dioxide 32 H (22-30) mmol/L Glucose 220 H (74-99) mg/dL POC Glucose (mg/dL) 170 H 256 H (75-99) mg/dL AST 100 H (17-59) U/L Alkaline Phosphatase 349 H (38-126) U/L Total Protein 5.8 L (6.3-8.2) g/dL Albumin 3.1 L (3.5-5.0) g/dL 03/09/19 03/09/19 03/09/19 Range/Units 17:05 20:10 22:29 Carbon Dioxide (22-30) mmol/L Glucose (74-99) mg/dL POC Glucose (mg/dL) 231 H 257 H 246 H (75-99) mg/dL AST (17-59) U/L Alkaline Phosphatase (38-126) U/L Total Protein (6.3-8.2) g/dL Albumin (3.5-5.0) g/dL Microbiology - Last 24 Hours (Table) 03/06/19 16:22 Blood Culture - Preliminary Blood No Growth after 72 hours Assessment and Plan Assessment: - Sepsis with gram-negative septicemia - Acute cholangitis causing gram negative bacteremia - Gram-negative bacteremia with E. coli - MRSA positive - Acute metabolic encephalopathy secondary to infection. patient doing better - Diabetes mellitus2 - Acute on chronic renal failure kidney functions, improving - History of CHF - Paroxysmal atrial fibrillation/ atrial flutter - History of COPD stable. - History of hypertension - History of hypothyroidism - History of anxiety Plan: Patient is status post laparoscopic cholecystectomy on 03/08/2019. Continue with antibiotics in the form of ceftriaxone and vancomycin as per ID recommendations. Patient is being followed by general surgery, ID and cardiology. Resume Eliquis after surgery. Continue with current management. Further recommendations based on the clinical course. Prognosis is guarded. Time with Patient: Greater than 30
[2019-03-10] MEDS: LEVOTHYROXINE 88 MCG TAB PO SCH (05:04)
[2019-03-10 07:06] LABS: Glucose,Whole Blood 120 mg/dL (75-99)
[2019-03-10] MEDS ORDERED: VANCOMYCIN TROUGH DUE 1 EACH MISC MISCELLANE ONE (08:00)
[2019-03-10] MEDS: METOPROLOL TARTRATE 25 MG TAB PO SCH (08:35)
[2019-03-10] MEDS: APIXABAN 5 MG TAB PO SCH ×2 (08:35→20:34)
[2019-03-10] MEDS: AMIODARONE 200 MG TAB PO SCH (08:35)
[2019-03-10] MEDS: CARBIDOPA-LEVODOPA 25-100 MG 1 EACH TAB PO SCH ×3 (08:35→17:18)
[2019-03-10] MEDS: PANTOPRAZOLE 40 MG TABLET PO SCH (08:35)
[2019-03-10] MEDS: FUROSEMIDE 40 MG TAB PO SCH ×2 (08:35→17:18)
[2019-03-10] MEDS: INSULIN ASPART (NovoLOG) 100 UNIT/ML VIAL SQ SCH ×4 (08:36→20:34)
[2019-03-10] MEDS: FLUTICASONE 50MCG/SPRAY NASAL 16GM EA NOSTRIL SCH (08:47)
[2019-03-10 08:54] LABS: Basophils # (A) 0.1 k/uL (0-0.2); Basophils % (A) 1 %; Eosinophils # (A) 0.3 k/uL (0-0.7); Eosinophils % (A) 4 %; HCT 39.5 % (39.0-53.0); HGB 12.6 gm/dL (13.0-17.5); Lymphocytes % (A) 38 %; MCH 28.9 pg (25.0-35.0); MCHC 31.8 g/dL (31.0-37.0); Mean Platelet Volume 8.6; Monocytes # (A) 0.5 k/uL (0-1.0); Monocytes % (A) 7 %; Neutrophils # (A) 3.8 k/uL (1.3-7.7); Neutrophils % (A) 48 %; Platelet Count 231 k/uL (150-450); RBC 4.34 m/uL (4.30-5.90); RDW 14.8 % (11.5-15.5); WBC 7.9 k/uL (3.8-10.6)
[2019-03-10 09:07] LABS: Albumin 3.4 g/dL (3.5-5.0); Potassium 4.1 mmol/L (3.5-5.1); Total Bilirubin 0.5 mg/dL (0.2-1.3); Total Protein 6.2 g/dL (6.3-8.2)
[2019-03-10] MEDS: VANCOMYCIN 1,750 MG in SODIUM CHLORIDE 0.9% 500 ML 500 ML IVPB SCH (09:41)
[2019-03-10] MEDS ORDERED: POLYETHYLENE GLYCOL 3350 17 GM POWD.PACK PO PRN (11:25)
[2019-03-10 11:33] LABS: Glucose,Whole Blood 175 mg/dL (75-99)
[2019-03-10] MEDS: LACTATED RINGERS 1,000 ML IV SCH (12:19)
--- NOTE | 2019-03-10 15:25 | P.PN ---
Subjective This is a 78-year-old gentleman with a past medical history significant for obesity, diabetes, hypertension, and paroxysmal atrial fibrillation, who was admitted to the hospital initially with a change in mental status. The patient was seen subsequently by the surgical team and he was diagnosed with gallbladder disease . Patient recently had ERCP with dilation of the sphincter. 03/08/2019 Patient is complaining of right upper quadrant discomfort and pain. Scheduled for cholecystectomy today. Patient is being treated for biliary Sepsis/ acute cholangitis. Currently on antibiotics in the form of vancomycin and ceftriaxone. No complaints of fever or chills. Initial blood cultures grew E. coli. Repeat blood cultures have been negative. No evidence of pneumonia on the CT chest. ID is on board. No complaints of chest pain or shortness of breath. No nausea vomiting or diarrhea. 03/09/2019 Patient says that his abdominal pain is better today. Status post laparoscopic cholecystectomy. Repeat cultures have been negative. Continued on IV antibiotics in the form of ceftriaxone and vancomycin. No fever no chills. No nausea vomiting or diarrhea. Tolerating oral diet. No complaints of chest pain or shortness of breath. No cough or sputum production. Liver enzymes are trending down. We will resume Eliquis 5 mg twice a day. 03/10/2019 Patient has mild sinus bradycardia, symptomatic is comparing of constipation. Patient had bacteremia with E. coli for which patient is on Rocephin patient won't cultures of the positive for enterococcus fecium and MRSA which patient is on vancomycin. Constitutional: Denied any fatigue denied any fever. Cardio vascular: denied any chest pain, palpitations Gastrointestinal denied any nausea vomiting Pulmonary: Denied any shortness of breath cough Neurologic denied any new focal deficits All inpatient medications were reviewed and appropriate changes in these medications as dictated in the interval history and assessment and plan. Objective - Vital Signs Vital signs: Vital Signs Temp 97.8 F 03/10/19 14:49 Pulse 50 L 03/10/19 14:49 Resp 15 03/10/19 14:49 BP 123/62 03/10/19 14:49 Pulse Ox 98 03/10/19 14:49 Intake & Output 03/09/19 03/10/19 03/10/19 18:59 06:59 18:59 Intake Total 280 360 Output Total 170 66 50 Balance -170 214 310 Weight 109.6 kg Intake: Oral 280 360 Output: Drainage 170 66 50 Anterior Abdomen 170 66 50 Other: Voiding Method Toilet Urinal # Voids 2 2 1 - Exam On exam, alert and oriented x3. HEENT: Conjunctivae normal. eyes normal. NECK: No JVD. No thyroid enlargement. No LNs CARDIOVASCULAR: S1, S2 muffled. No murmur RESPIRATION: Breath sounds diminished in the bases. No rhonchi or crackles. No bronchial breathing. ABDOMEN: Soft, nontender . No guarding. no masses palpable. No ascites, No hepatosplenomegaly.Bowel sounds heard. LEGS: Patient is having status dermatitis Erick in bilateral lower extremities +1 pitting edema NERVOUS SYSTEM: Cranial N 2-12 grossly normal. Moves all 4 limbs. No focal deficits. No sensory deficit. No signs of cerebellar dysfucntion. - Labs CBC & Chem 7: 03/10/19 07:46 03/10/19 07:46 Labs: Abnormal Lab Results - Last 24 Hours (Table) 03/09/19 03/09/19 03/09/19 Range/Units 17:05 20:10 22:29 Hgb (13.0-17.5) gm/dL Carbon Dioxide (22-30) mmol/L POC Glucose (mg/dL) 231 H 257 H 246 H (75-99) mg/dL Alkaline Phosphatase (38-126) U/L Total Protein (6.3-8.2) g/dL Albumin (3.5-5.0) g/dL 03/10/19 03/10/19 03/10/19 Range/Units 07:04 07:46 07:46 Hgb 12.6 L (13.0-17.5) gm/dL Carbon Dioxide 31 H (22-30) mmol/L POC Glucose (mg/dL) 120 H (75-99) mg/dL Alkaline Phosphatase 294 H (38-126) U/L Total Protein 6.2 L (6.3-8.2) g/dL Albumin 3.4 L (3.5-5.0) g/dL 03/10/19 Range/Units 11:32 Hgb (13.0-17.5) gm/dL Carbon Dioxide (22-30) mmol/L POC Glucose (mg/dL) 175 H (75-99) mg/dL Alkaline Phosphatase (38-126) U/L Total Protein (6.3-8.2) g/dL Albumin (3.5-5.0) g/dL Microbiology - Last 24 Hours (Table) 03/06/19 16:22 Blood Culture - Preliminary Blood No Growth after 72 hours Assessment and Plan Plan: - Sepsis with gram-negative bacteremia secondary to cholecystitis patient is status post cholecystectomy and patient has E. coli for which patient is on Rocephin IV. E. coli is pansensitive -Multiple lower extremity wounds enterococcus fecium and methicillin-resistant staph aureus - Diabetes mellitus2 - Acute on chronic renal failure kidney functions, improving - History of CHF - Paroxysmal atrial fibrillation/ atrial flutter patient is on Eliquis which was resumed patient is clinically doing well. - COPD stable. - hypertension - hypothyroidism -Anxiety disorder
[2019-03-10 17:03] LABS: Glucose,Whole Blood 188 mg/dL (75-99)
[2019-03-10 17:24] LABS: Hemoglobin A1C 15.1 % (4.0-6.0)
[2019-03-10 20:27] LABS: Glucose,Whole Blood 203 mg/dL (75-99)
[2019-03-10] MEDS: INSULIN DETEMIR (LEVEMIR) 100 UNIT/ML SYR SQ SCH (20:34)
[2019-03-11] MEDS: LEVOTHYROXINE 88 MCG TAB PO SCH (05:22)
[2019-03-11 07:21] LABS: Glucose,Whole Blood 140 mg/dL (75-99)
[2019-03-11 07:40] VITALS: RESP 16
[2019-03-11] MEDS: CARBIDOPA-LEVODOPA 25-100 MG 1 EACH TAB PO SCH ×2 (08:08→13:32)
[2019-03-11] MEDS: INSULIN ASPART (NovoLOG) 100 UNIT/ML VIAL SQ SCH ×2 (08:08→13:32)
[2019-03-11] MEDS: PANTOPRAZOLE 40 MG TABLET PO SCH (08:08)
[2019-03-11] MEDS: VANCOMYCIN 1,750 MG in SODIUM CHLORIDE 0.9% 500 ML 500 ML IVPB SCH (09:44)
[2019-03-11] MEDS: FUROSEMIDE 40 MG TAB PO SCH (09:45)
[2019-03-11] MEDS: APIXABAN 5 MG TAB PO SCH (09:45)
[2019-03-11] MEDS: FLUTICASONE 50MCG/SPRAY NASAL 16GM EA NOSTRIL SCH (09:45)
[2019-03-11] MEDS: AMIODARONE 200 MG TAB PO SCH (09:45)
[2019-03-11] MEDS ORDERED: LACTULOSE 20 GM/30 ML CUP PO ONE (11:22)
[2019-03-11 11:26] LABS: Glucose,Whole Blood 203 mg/dL (75-99)
--- NOTE | 2019-03-11 14:11 | P.DS ---
Providers Date of admission: 03/02/19 14:53 Attending physician: Dorene Smith Consults: 03/02/19 18:58 Consult Physician Routine Consulting Provider: Juancarlos Rivera Consult Reason/Comments: A-flutter/fib Do you want consulting provider notified?: Yes 03/02/19 22:27 Consult Physician Routine Consulting Provider: Ashley Swan Consult Reason/Comments: pneumonia Do you want consulting provider notified?: Yes Consult Physician Routine Consulting Provider: Maurice Childs Consult Reason/Comments: sepsis Do you want consulting provider notified?: Yes 03/04/19 11:53 Consult Physician Routine Consulting Provider: Darshan Davis Consult Reason/Comments: cholelithiasis Do you want consulting provider notified?: Yes Primary care physician: Joselito Prior Hospital Course: This is a 78-year-old gentleman with a past medical history significant for obesity, diabetes, hypertension, and paroxysmal atrial fibrillation, who was admitted to the hospital initially with a change in mental status. The patient was seen subsequently by the surgical team and he was diagnosed with gallbladder disease . Patient recently had ERCP with dilation of the sphincter. 03/08/2019 Patient is complaining of right upper quadrant discomfort and pain. Scheduled for cholecystectomy today. Patient is being treated for biliary Sepsis/ acute cholangitis. Currently on antibiotics in the form of vancomycin and ceftriaxone. No complaints of fever or chills. Initial blood cultures grew E. coli. Repeat blood cultures have been negative. No evidence of pneumonia on the CT chest. ID is on board. No complaints of chest pain or shortness of breath. No nausea vomiting or diarrhea. 03/09/2019 Patient says that his abdominal pain is better today. Status post laparoscopic cholecystectomy. Repeat cultures have been negative. Continued on IV antibiotics in the form of ceftriaxone and vancomycin. No fever no chills. No nausea vomiting or diarrhea. Tolerating oral diet. No complaints of chest pain or shortness of breath. No cough or sputum production. Liver enzymes are trending down. We will resume Eliquis 5 mg twice a day. 03/10/2019 Patient has mild sinus bradycardia, symptomatic is comparing of constipation. Patient had bacteremia with E. coli for which patient is on Rocephin patient wound cultures of the positive for enterococcus fecium and MRSA which patient is on vancomycin. 03/11/2019 Patient unfortunately cannot get a PICC line for IV antibiotics as patient received Eliquis and infectious disease regarding IV antibiotics for now she will have a peripheral line for next 2-3 days and patient was evaluated and medics for that and patient will come back for PICC line on Thursday until then Eliquis will be held. Patient is still bit constipated does have good bowel sounds will be discharged on lactulose as needed and senna and docusate for constipation patient has bilateral pedal edema for which patient is receiving Lasix because of the worsening renal failure THE LASIX TO 40 DAILY AND BASIC METABOLIC PROFILE NEED TO BE TESTED IN ABOUT 3 DAYS. IF HIS KIDNEY FUNCTION IMPROVES PATIENT WILL LASIX CAN BE INCREASED RECOMMEND COMPRESSION SOCKS OF SHIV BANDAGES FOR HIS SWELLING IN BOTH LEGS. PATIENT WILL NEED LOCAL WOUND CARE. On exam, alert and oriented x3. HEENT: Conjunctivae normal. eyes normal. NECK: No JVD. No thyroid enlargement. No LNs CARDIOVASCULAR: S1, S2 muffled. No murmur RESPIRATION: Breath sounds diminished in the bases. No rhonchi or crackles. No bronchial breathing. ABDOMEN: Soft, nontender . No guarding. no masses palpable. No ascites, No hepatosplenomegaly.Bowel sounds heard. LEGS: Patient is having status dermatitis Erick in bilateral lower extremities +1 pitting edema NERVOUS SYSTEM: Cranial N 2-12 grossly normal. Moves all 4 limbs. No focal deficits. No sensory deficit. No signs of cerebellar dysfucntion. Assessment and Plan Plan: - Sepsis with gram-negative bacteremia secondary to cholecystitis patient is status post cholecystectomy and patient has E. coli for which patient is on Rocephin IV. E. coli is pansensitive -Multiple lower extremity wounds enterococcus fecium and methicillin-resistant staph aureus - Diabetes mellitus2 - Acute on chronic renal failure kidney functions, improving - History of CHF - Paroxysmal atrial fibrillation/ atrial flutter patient is on Eliquis which was resumed patient is clinically doing well. - COPD stable. - hypertension - hypothyroidism -Anxiety disorder Patient Condition at Discharge: Fair Plan - Discharge Summary Discharge Rx Participant: Yes New Discharge Prescriptions: New cefTRIAXone [Rocephin] 2,000 mg IVPB Q24HR #14 vial Vancomycin 1,750 mg IVPB Q24HR #14 bag Lactulose [Cephulac] 20 gm PO BID PRN #30 ml PRN Reason: Constipation Apixaban [Eliquis] 5 mg PO BID tab Insulin Detemir (Levemir) [Levemir] 15 unit SQ HS syr Sennosides-Docusate Sodium [Senokot-S] 1 each PO DAILY PRN tab PRN Reason: Constipation Acetaminophen Tab [Tylenol] 650 mg PO Q6HR PRN tab PRN Reason: Fever >100.3 And/ Or Pain Continue Albuterol Inhaler [Ventolin Hfa Inhaler] 2 puff INHALATION RT-Q4H PRN PRN Reason: Dyspnea Amiodarone HCl 200 mg PO QAM Metoprolol Tartrate 25 mg PO BID Carbidopa-Levodopa 25-100 mg [Sinemet 25-100 mg] 2 tab PO TID Levothyroxine Sodium [Synthroid] 88 mcg PO DAILY Fluticasone Nasal [place] [Flonase Nasal [place]] 1 spray EA NOSTRIL DAILY Changed Furosemide [Lasix] 40 mg PO DAILY #0 Discontinued Lisinopril [Zestril] 40 mg PO DAILY Insulin Lispro Protamin/Lispro [humaLOG Mix 75-25 Kwikpen] See Protocol SQ AC-BID Discharge Medication List Albuterol Inhaler [Ventolin Hfa Inhaler] 2 puff INHALATION RT-Q4H PRN 03/15/14 [History] Amiodarone HCl 200 mg PO QAM 04/21/14 [History] Metoprolol Tartrate 25 mg PO BID 04/21/16 [History] Carbidopa-Levodopa 25-100 mg [Sinemet 25-100 mg] 2 tab PO TID 07/08/16 [History] Fluticasone Nasal [place] [Flonase Nasal [place]] 1 spray EA NOSTRIL DAILY 12/31/18 [History] Levothyroxine Sodium [Synthroid] 88 mcg PO DAILY 12/31/18 [History] Acetaminophen Tab [Tylenol] 650 mg PO Q6HR PRN tab 03/11/19 [Rx] Apixaban [Eliquis] 5 mg PO BID tab 03/11/19 [Rx] Furosemide [Lasix] 40 mg PO DAILY #0 03/11/19 [Rx] Insulin Detemir (Levemir) [Levemir] 15 unit SQ HS syr 03/11/19 [Rx] Lactulose [Cephulac] 20 gm PO BID PRN #30 ml 03/11/19 [Rx] Sennosides-Docusate Sodium [Senokot-S] 1 each PO DAILY PRN tab 03/11/19 [Rx] Vancomycin 1,750 mg IVPB Q24HR #14 bag 03/11/19 [Rx] cefTRIAXone [Rocephin] 2,000 mg IVPB Q24HR #14 vial 03/11/19 [Rx] Follow up Appointment(s)/Referral(s): Fanny Olmstead DO [Doctor of Osteopathic Medicine] - 2 Weeks Carlos Jose MD [STAFF PHYSICIAN] - 1 Week Prior,DO Joselito [Primary Care Provider] - 1-2 days [facility] [place], [NON-STAFF] - As Needed Activity/Diet/Wound Care/Special Instructions: May shower. Light dressing over incisions if they are draining or rubbing on your clothing. Expect some bruising at the incisions. Call if you develop fever, chills, nausea, vomiting or have wound concerns.
[2019-03-11 14:58] VITALS: BP 148/74; PULSE 56; TEMP 97.9
--- NOTE | 2019-03-11 23:05 | P.PN ---
Subjective Progress Note Date: 03/11/19 This is a 78-year-old male patient who was last seen during his hospitalization in October of this year which time he was treated for Klebsiella pneumoniae bacteremia and pneumonia and discharged home on ciprofloxacin. He was subsequently admitted in December for ascending acute cholangitis ampule stenosis. At this time, patient presents to the hospital with complaints of mental status changes. According to his , he started staring off and doesn't make good eye contact and she knows that there is something wrong. He also had a fall at home where he slipped from a chair. He denies any injuries. He was brought in by EMS to [facility] emergency center for evaluation found to be afebrile, initial white count 12.6 and repeat 17, creatinine 2.15, blood sugar 516, lactic acid up to 5.3 with repeated 2.2. Urinalysis positive for glucose and ketones. Acetone was negative and serum alcohol less than 10. Troponin 0.042. Albumin was 3.6. AST 126, ALT 68 and alkaline phosphatase 287, ammonia level IX, CK 37. Patient remains somewhat confused during this evaluation. He apparently has not eaten very much since admission. He denies any problem with his appetite but does not like the food. He has been urinating sufficient quantities. He denies any dysuria. Has been no nausea or vomiting. Patient has had loose stools but not diarrhea. He denies any abdominal pain. No chest pain but he does have tenderness on the left lateral chest wall. No shortness of breath. Patient was started on azithromycin and Zosyn and admitted to the cardiac stepdown unit. He has been seen by cardiology as he had episode of atrial flutter currently in a sinus bradycardia and also it elevated troponins. Dr. Swan is on consult for evaluation of pneumonia. Chest x-ray reveals low lung volumes however improved aeration of the lung bases. No residual focal consolidation. Blood cultures status received. 03/08/2019 patient seems comfortable in the postoperative time frame from his laparoscopic cholecystectomy for his ascending cholangitis. 03/11/2019 patient is now had further improvement in his status. It is noted that he'll be transferred to rehab today. He is denying intermittent troubles. Feeling better but is still having some right upper quadrant pain after his cholecystectomy. Denies nausea or emesis. Appetite improving. Fever has resolved. Objective - Vital Signs Vital signs: Vital Signs Temp 97.9 F 03/11/19 15:00 Pulse 56 L 03/11/19 15:00 Resp 16 03/11/19 15:00 BP 148/74 03/11/19 15:00 Pulse Ox 100 03/11/19 15:00 Intake & Output 03/11/19 03/11/19 03/12/19 06:59 18:59 06:59 Intake Total 280 Output Total 170 490 Balance 110 -490 Weight 110.3 kg Intake: Oral 280 Output: Drainage 170 140 Anterior Abdomen 170 140 Urine 350 Other: # Voids 2 # Bowel Movements 1 - Exam Gen: This is a 78-year-old male. He is in a recliner and appears to be comfortable and in no acute distress. HEENT: Head is atraumatic, normocephalic. Pupils equal, round. Sclerae is anicteric. Oral mucous membranes are moist. Upper dentures in place. Patient' s attention was and the bottom. No thrush noted. NECK: Supple. No JVD. No lymphadenopathy. No thyromegaly. LUNGS: Diminished bilaterally. No intercostal retractions. HEART: Regular rate and rhythm. No murmur. ABDOMEN: Soft. Bowel sounds are present. No masses. Minimal tenderness in the right upper quadrant at the cholecystectomy site. Drainage tubes are noted. Serous drainage noted. Dressing to be changed before transfer EXTREMITIES: Chronic bilateral lower extremity edema and dryness. No open ulcers at this time. Dorsalis pedis +1 bilaterally. NEUROLOGICAL: Patient awake and alert interactive - Labs CBC & Chem 7: 03/10/19 07:46 03/11/19 07:31 Labs: Abnormal Lab Results - Last 24 Hours (Table) 03/11/19 03/11/19 03/11/19 Range/Units : 07:31 11:24 Creatinine 1.36 H (0.66-1.25) mg/dL POC Glucose (mg/dL) 140 H 203 H (75-99) mg/dL Microbiology - Last 24 Hours (Table) 03/06/19 16:22 Blood Culture - Preliminary Blood No Growth after 120 hours Laboratory Results WBC 7.9 k/uL (3.8-10.6) 03/10/19 07:46 RBC 4.34 m/uL (4.30-5.90) 03/10/19 07:46 Hgb 12.6 gm/dL (13.0-17.5) L 03/10/19 07:46 Hct 39.5 % (39.0-53.0) 03/10/19 07:46 MCV 91.0 fL (80.0-100.0) 03/10/19 07:46 MCH 28.9 pg (25.0-35.0) 03/10/19 07:46 MCHC 31.8 g/dL (31.0-37.0) 03/10/19 07:46 RDW 14.8 % (11.5-15.5) 03/10/19 07:46 Plt Count 231 k/uL (150-450) 03/10/19 07:46 Neutrophils % 48 % 03/10/19 07:46 Neutrophils % (Manual) 75 % 03/02/19 09:20 Band Neutrophils % 15 % 03/02/19 09:20 Lymphocytes % 38 % 03/10/19 07:46 Lymphocytes % (Manual) 5 % 03/02/19 09:20 Monocytes % 7 % 03/10/19 07:46 Monocytes % (Manual) 5 % 03/02/19 09:20 Eosinophils % 4 % 03/10/19 07:46 Basophils % 1 % 03/10/19 07:46 Basophils % (Manual) 1 % 03/02/19 09:20 Metamyelocytes % 1 % 03/02/19 09:20 Neutrophils # 3.8 k/uL (1.3-7.7) 03/10/19 07:46 Neutrophils # (Manual) 11.30 k/uL (1.3-7.7) H 03/02/19 09:20 Lymphocytes # 3.0 k/uL (1.0-4.8) 03/10/19 07:46 Lymphocytes # (Manual) 0.63 k/uL (1.0-4.8) L 03/02/19 09:20 Monocytes # 0.5 k/uL (0-1.0) 03/10/19 07:46 Monocytes # (Manual) 0.63 k/uL (0-1.0) 03/02/19 09:20 Eosinophils # 0.3 k/uL (0-0.7) 03/10/19 07:46 Basophils # 0.1 k/uL (0-0.2) 03/10/19 07:46 Basophils # (Manual) 0.13 k/uL (0-0.2) 03/02/19 09:20 Metamyelocytes # (Man) 0.13 k/uL (0) H 03/02/19 09:20 Nucleated RBCs 0 /100 WBC (0-0) 03/02/19 09:20 Manual Slide Review Performed 03/02/19 09:20 Poikilocytosis (manual Present 03/02/19 09:20 PT 10.2 sec (9.0-12.0) 03/02/19 09:20 INR 0.9 (<1.2) 03/02/19 09:20 Sodium 140 mmol/L (137-145) 03/10/19 07:46 Potassium 4.1 mmol/L (3.5-5.1) 03/10/19 07:46 Chloride 101 mmol/L (98-107) 03/10/19 07:46 Carbon Dioxide 31 mmol/L (22-30) H 03/10/19 07:46 Anion Gap 8 mmol/L 03/10/19 07:46 BUN 17 mg/dL (9-20) 03/10/19 07:46 Creatinine 1.36 mg/dL (0.66-1.25) H 03/11/19 07:31 Est GFR (CKD-EPI)AfAm 58 (>60 ml/min/1.73 sqM) 03/11/19 07:31 Est GFR (CKD-EPI)NonAf 50 (>60 ml/min/1.73 sqM) 03/11/19 07:31 Glucose 98 mg/dL (74-99) 03/10/19 07:46 POC Glucose (mg/dL) 203 mg/dL (75-99) H 03/11/19 11:24 POC Glu Sales Representative Facility Services ID Bijal Adamson 03/11/19 11:[address] Glu mg/dL 387 03/10/19 07:47 Hemoglobin A1c 15.1 % (4.0-6.0) H 03/10/19 07:47 Lactic Ac Sepsis Rflx Y 03/03/19 07:37 Plasma Lactic Acid Riley 1.8 mmol/L (0.7-2.0) 03/04/19 15:36 Calcium 9.0 mg/dL (8.4-10.2) 03/10/19 07:46 Magnesium 1.8 mg/dL (1.6-2.3) 03/06/19 05:39 Total Bilirubin 0.5 mg/dL (0.2-1.3) 03/10/19 07:46 Conjugated Bilirubin 0.0 mg/dL (0.0-0.3) 03/08/19 06:12 Unconjugated Bilirubin 0.2 mg/dL (0.0-1.1) 03/08/19 06:12 Delta Bilirubin 0.2 mg/dL (0.0-0.2) 03/08/19 06:12 AST 41 U/L (17-59) 03/10/19 07:46 ALT 29 U/L (21-72) 03/10/19 07:46 Alkaline Phosphatase 294 U/L (38-126) H 03/10/19 07:46 Ammonia 9 umol/L (<30) 03/02/19 09:20 Total Creatine Kinase 37 U/L (55-170) L 03/02/19 09:20 CK-MB (CK-2) 0.7 ng/mL (0.0-2.4) 03/02/19 09:20 CK-MB (CK-2) Rel Index 1.9 03/02/19 09:20 Troponin I 0.042 ng/mL (0.000-0.034) H* 03/02/19 09:20 Total Protein 6.2 g/dL (6.3-8.2) L 03/10/19 07:46 Albumin 3.4 g/dL (3.5-5.0) L 03/10/19 07:46 Lipase 48 U/L (23-300) 03/02/19 09:20 TSH 3.610 mIU/L (0.465-4.680) 03/03/19 06:47 Urine Color Yellow 03/02/19 12:09 Urine Appearance Clear (Clear) 03/02/19 12:09 Urine pH 5.5 (5.0-8.0) 03/02/19 12:09 Ur Specific [place] 1.029 (1.001-1.035) 03/02/19 12:09 Urine Protein Trace (Negative) H 03/02/19 12:09 Urine Glucose (UA) 4+ (Negative) H 03/02/19 12:09 Urine Ketones Trace (Negative) H 03/02/19 12:09 Urine Blood Negative (Negative) 03/02/19 12:09 Urine Nitrite Negative (Negative) 03/02/19 12:09 Urine Bilirubin Negative (Negative) 03/02/19 12:09 Urine Urobilinogen <2.0 mg/dL (<2.0) 03/02/19 12:09 Ur Leukocyte Esterase Negative (Negative) 03/02/19 12:09 Vancomycin Trough 13.7 ug/mL 03/10/19 07:46 Serum Alcohol <10 mg/dL 03/02/19 09:20 Acetone, Qual Negative (Negative) 03/02/19 09:20 Microbiology 03/06/19 16:22 Blood Blood Culture - Preliminary No Growth after 120 hours 03/02/19 16:09 Blood Blood Culture - Final No Growth after 144 hours 03/04/19 11:08 Scrotum Anaerobic Culture - Final 03/04/19 11:08 Groin Gram Stain - Final 03/04/19 11:08 Groin Wound Culture - Final Enterococcus faecium Methicillin resist S. aureus 03/02/19 09:28 Blood Blood Culture Gram Stain - Final 03/02/19 09:28 Blood Blood Culture - Final Escherichia coli 03/02/19 09:28 Blood Blood Culture - Final Assessment and Plan (1) Ascending cholangitis Narrative/Plan: 78-year-old Patient presents to Hospital from home setting and that the patient was having worsening of his mental status and apparently had a fall at home or he slipped out of his chair. Consequently EMS was called and brought to hospital. Is evidence of leukocytosis and concerns to sepsis. The patient was recently hospitalized and did have evidence of cholangitis and stenosis that required an ERCP and sphincterotomy to improve. Patient does have evidence of an elevated AST and total bilirubin. May have recurrence of his cholangitis. Currently receiving antibiotic therapy with Rocephin and azithromycin with concerns pneumonia. The computed tomography scan has been performed there is no evidence of any new infiltrates. Antibiotic therapy transition to piperacillin tazobactam for coverage of biliary sepsis based on his history. He has had E. coli and Klebsiella infections in the past. Continue supportive care. Cultures were further help direct course of therapy. May require further evaluation by gastroenterology given his history. 03/08/2019 the patient is now status post laparoscopic cholecystectomy for his recurrent biliary sepsis. He is resting comfortably and doing well with current antibiotic therapy. We'll continue Zosyn and vancomycin for now until we have further data. Pathology is pending. Patient is comfortable, clear liquid diet for now surgery will advance as possible. Continue local wound care. 03/11/2019 patient has had his cholecystectomy is doing somewhat better. Biliary sepsis is improving. Patient has receivedelaquis and constantly cannot receive his IV access PICC line that will be needed for his antibiotic therapy of Rocephin and vancomycin to treat the isolated pathogens. Pathology without malignancy or other abnormality except cholecystitis, 2 week course as planned. Peripheral IV access is being utilized. PICC line to be placed on Thursday to complete his course of therapy. Weekly laboratories are requested and follow-up and end of therapy. Status: Acute Code(s): K83.09 - OTHER CHOLANGITIS SNOMED Code(s): 19091072 (2) Gram-negative bacteremia Status: Acute Code(s): R78.81 - BACTEREMIA SNOMED Code(s): 549054933960
== END 2019-03-11 15:50 | DRG 853 ==
LOC: EC 09:07 → SUPCPDRO 09:07 → 3SCARD 14:53 → 4SSUR 03-08 22:55
PROVIDERS: ADMIT Hospitalist; ATTEND Hospitalist
PROC: 0FT44ZZ Resection of Gallbladder, Percutaneous Endoscopic Approach (ICD-10-PCS; principal; 2019-03-08 07:30)
DX: A41.51 Sepsis due to Escherichia coli [E. coli] (principal); E11.00 Type 2 diabetes mellitus with hyperosmolarity without nonketotic hyperglycemic-hyperosmolar coma (NKHHC); G93.41 Metabolic encephalopathy; J18.1 Lobar pneumonia, unspecified organism; E87.1 Hypo-osmolality and hyponatremia; E87.2 Acidosis; F05 Delirium due to known physiological condition; I13.0 Hypertensive heart and chronic kidney disease with heart failure and stage 1 through stage 4 chronic kidney disease, or unspecified chronic kidney disease; I48.92 Unspecified atrial flutter; J44.0 Chronic obstructive pulmonary disease with (acute) lower respiratory infection; N17.9 Acute kidney failure, unspecified; Z68.42 Body mass index [BMI] 45.0-49.9, adult; K83.09 Other cholangitis; I50.32 Chronic diastolic (congestive) heart failure; B95.2 Enterococcus as the cause of diseases classified elsewhere; E03.9 Hypothyroidism, unspecified; E11.22 Type 2 diabetes mellitus with diabetic chronic kidney disease; E66.9 Obesity, unspecified; A41.50 Gram-negative sepsis, unspecified; E78.5 Hyperlipidemia, unspecified; E83.42 Hypomagnesemia; E86.0 Dehydration; F40.240 Claustrophobia; G20 Parkinson's disease; I25.2 Old myocardial infarction; I48.0 Paroxysmal atrial fibrillation; K59.00 Constipation, unspecified; N18.3 Chronic kidney disease, stage 3 (moderate); I87.2 Venous insufficiency (chronic) (peripheral); N49.2 Inflammatory disorders of scrotum; W19.XXXA Unspecified fall, initial encounter; N50.89 Other specified disorders of the male genital organs; Y92.009 Unspecified place in unspecified non-institutional (private) residence as the place of occurrence of the external cause; Z79.01 Long term (current) use of anticoagulants; Z79.4 Long term (current) use of insulin; Z79.890 Hormone replacement therapy; Z79.899 Other long term (current) drug therapy; Z80.3 Family history of malignant neoplasm of breast; Z82.49 Family history of ischemic heart disease and other diseases of the circulatory system; Z85.51 Personal history of malignant neoplasm of bladder; Z87.891 Personal history of nicotine dependence; Z91.19 Patient's noncompliance with other medical treatment and regimen; Z79.51 Long term (current) use of inhaled steroids; Z88.6 Allergy status to analgesic agent; Z80.8 Family history of malignant neoplasm of other organs or systems
CPT/HCPCS: 36415; 71045; 71046; 71250; 76705; 80048; 80053; 80202; 80320; 81003; 82009; 82140; 82248; 82550; 82553; 82565; 83036; 83605; 83690; 83735; 84443; 84450; 84460; 84484; 85025; 85610; 87040; 87070; 87075; 87077; 87186; 87205; 88304; 93005; 96361; 96365; 96366; 96368; 96375; 99291

== ENCOUNTER 2019-05-26 22:02 | Inpatient (IN) | payer OTHER, MEDICARE ==
[2019-05-26] MEDS ORDERED: SODIUM CHLORIDE 0.9% 1,000 ML IV STA (22:15)
[2019-05-26 22:56] LABS: Basophils % (A) 0 %; Eosinophils # (A) 0.1 k/uL (0-0.7); Eosinophils % (A) 0 %; HCT 39.4 % (39.0-53.0); Lymphocytes # (A) 1.7 k/uL (1.0-4.8); Lymphocytes % (A) 12 %; MCH 29.8 pg (25.0-35.0); MCHC 32.9 g/dL (31.0-37.0); MCV 90.6 fL (80.0-100.0); Mean Platelet Volume 8.4; Monocytes # (A) 0.8 k/uL (0-1.0); Monocytes % (A) 6 %; Neutrophils # (A) 11.3 k/uL (1.3-7.7); Neutrophils % (A) 81 %; Platelet Count 185 k/uL (150-450); RBC 4.35 m/uL (4.30-5.90); RDW 13.1 % (11.5-15.5); WBC 14.1 k/uL (3.8-10.6)
[2019-05-26 23:00] LABS: Calcium 8.5 mg/dL (8.4-10.2); Potassium 4.2 mmol/L (3.5-5.1); Total Bilirubin 0.5 mg/dL (0.2-1.3); Total Protein 6.9 g/dL (6.3-8.2)
[2019-05-26 23:07] LABS: INR 0.9 (<1.2); Partial Thromboplastin Time 22.4 sec (22.0-30.0); Prothrombin Time 9.6 sec (9.0-12.0)
--- NOTE | 2019-05-26 23:11 | ED ---
General Adult HPI - General Chief complaint: Neuro Symptoms/Deficit Stated complaint: Stroke Time Seen by Provider: 05/26/19 22:10 Source: patient Mode of arrival: wheelchair Limitations: physical limitation - History of Present Illness Initial comments: Dayday is a 79-year-old gentleman who is brought to the emergency department today by his family for evaluation of generalized weakness. Family reports that the patient has been urinating constantly and drinking a total of water, this evening after making multiple trips to the restroom patient reported that he was weak and could no longer walk which prompted family to bring him to the ER for evaluation. Family also reports that the patient has been noted to be drooling intermittently for some period time and he thought that might be more prominent today. Patient does report a mild headache. Family does mention that the patient has been noncompliant with his insulin for some period of time. - Related Data Home Medications Medication Instructions Recorded Confirmed Albuterol Inhaler [Ventolin Hfa 2 puff INHALATION RT-Q4H PRN 03/15/14 03/02/19 Inhaler] Amiodarone HCl 200 mg PO QAM 04/21/14 03/02/19 Metoprolol Tartrate 25 mg PO BID 04/21/16 03/02/19 Carbidopa-Levodopa 25-100 mg 2 tab PO TID 07/08/16 03/02/19 [Sinemet 25-100 mg] Fluticasone Nasal [place] [Flonase 1 spray EA NOSTRIL DAILY 12/31/18 03/02/19 Nasal [place]] Levothyroxine Sodium [Synthroid] 88 mcg PO DAILY 12/31/18 03/02/19 Previous Rx's Medication Instructions Recorded Acetaminophen Tab [Tylenol] 650 mg PO Q6HR PRN tab 03/11/19 Apixaban [Eliquis] 5 mg PO BID tab 03/11/19 Furosemide [Lasix] 40 mg PO DAILY #0 03/11/19 Insulin Detemir (Levemir) [Levemir] 15 unit SQ HS syr 03/11/19 Lactulose [Cephulac] 20 gm PO BID PRN #30 ml 03/11/19 Sennosides-Docusate Sodium 1 each PO DAILY PRN tab 03/11/19 [Senokot-S] Vancomycin 1,750 mg IVPB Q24HR #14 bag 03/11/19 cefTRIAXone [Rocephin] 2,000 mg IVPB Q24HR #14 vial 03/11/19 Allergies Allergy/AdvReac Type Severity Reaction Status Date / Time aspirin Allergy Swelling Verified 03/02/19 09:59 NSAIDS (Non-Steroidal Allergy Swelling Verified 03/02/19 09:59 Anti-Inflamma Review of Systems ROS Statement: Those systems with pertinent positive or pertinent negative responses have been documented in the HPI. ROS Other: All systems not noted in ROS Statement are negative. Constitutional: Reports: weakness. Denies: fever Endocrine: Reports: polydipsia, polyuria Genitourinary: Reports: frequency, other. Denies: dysuria Musculoskeletal: Denies: back pain Neurological: Reports: headache, weakness (Generalized) Past Medical History Past Medical History: Atrial Flutter, Cancer, Heart Failure, COPD, Diabetes Mellitus, Hypertension, Musculoskeletal Disorder, Neurologic Disorder, Thyroid Disorder Additional Past Medical History / Comment(s): PT ADMITTED ON 10/27/18 WITH BACTEREMIA D/T KLEBSIELLA PNE/TRANSAMINITIS/BILIARY SLUDGE PER US. OTHERHX: HX A-FLUTTER/TACHYCARDIA- TX W/ SAL/CARDIOVERSION, HAS BLADDER CA WITH SURGERY AND BLADDER INSTILLATION OF MED FOR BLADDER CANCER, IDC WITH UTI-REMOVED, IDDM TYPE II, BILATERAL CATARACTS, ABD HERNIA. PARKINSONS, DIVERTICULITIS, EDEMA FEET/LEGS, DDD lower spine, HYPOTHYROID, PNEUMONIA WITH SEPSIS, acute renal failure d/t acute tubular necrosis d/t sepsis, possible CKD. Last Myocardial Infarction Date:: UNK History of Any Multi-Drug Resistant Organisms: None Reported Date of last positivie culture/infection: 03/04/19 MDRO Source:: Groin Past Surgical History: Adenoidectomy, Bladder Surgery, Tonsillectomy Additional Past Surgical History / Comment(s): 2013 CARDIOVERSION, SAL. BLADDER TUMOR REMOVED,cystoscopy with bladder CA TREATMENTS, colonoscopy Past Anesthesia/Blood Transfusion Reactions: Previous Problems w/ Anesthesia Additional Past Anesthesia/Blood Transfusion Reaction / Comment(s): HX CLAUSTRO PHOBIA Past Psychological History: Anxiety Smoking Status: Former smoker Past Alcohol Use History: None Reported Past Drug Use History: None Reported - Past Family History Father Family Medical History: Cancer Additional Family Medical History / Comment(s): Bone cancer. Mother Family Medical History: Coronary Artery Disease (CAD) Additional Family Medical History / Comment(s): Macular degeneration Sister(s) Family Medical History: Cancer Additional Family Medical History / Comment(s): breast CA General Exam - General Exam Comments Initial Comments: Physical Exam GENERAL: Chronically ill-appearing HENT: Normocephalic, Atraumatic. Dry mucous membranes EYES: PERRL, EOMI PULMONARY: Unlabored respirations. No audible rales rhonchi or wheezing was noted. CARDIOVASCULAR: There is a regular rate and rhythm without any murmurs gallops or rubs. 2+ edema bilaterally ABDOMEN: Soft and nontender with normal bowel sounds. SKIN: Chronic changes bilateral lower extremities consistent with chronic venous stasis : Deferred NEUROLOGIC: Patient is alert and oriented x3. Moving all extremities spontaneously MUSCULOSKELETAL: Normal extremities with adequate strength and full range of motion. No lower extremity swelling or edema. No calf tenderness. PSYCHIATRIC: Normal psychiatric evaluation. Limitations: physical limitation Course Vital Signs 05/26/19 05/27/19 22:06 00:49 Temperature 98.5 F Pulse Rate 69 76 Respiratory 18 20 Rate Blood Pressure 168/65 161/61 O2 Sat by Pulse 92 L 97 Oximetry EKG Findings - EKG Comments: EKG Findings:: EKG was obtained due to complaint generalized weakness in an elderly gentleman, EKG obtained at 2220, rate is 68 rhythm is sinus with first- degree AV block there is a normal axis, SD is prolonged at 236, QRS 110, QTC is [address] elevations or depressions no evidence of acute ischemia or infarction. Medical Decision Making - Medical Decision Making The patient was seen and evaluated, history is obtained from the patient and family at bedside This is an elderly 79-year-old woman with chronic kidney disease insulin- dependent diabetes who has been noncompliant with his medications presents with generalized weakness Family initially was concerned patient may be having a stroke however I can observe no lateralizing symptoms, patient has generalized weakness of the bilateral lower extremities with ambulating I will high suspicion that his weakness is due to metabolic cause Labs and imaging were obtained Labs resulted with acute on chronic kidney disease, baseline creatinine is approximately 1.3 and states 2.6, and addition patient is hyperglycemic with a glucose of nearly 600 however normal anion gap and no signs of DKA Patient's glucose remained elevated after initial IV fluid bolus and dose of insulin therefore a repeat smaller dose was ordered Patient's blood glucose improving, she is stable for admission to floor - Lab Data Result diagrams: 05/26/19 22:40 05/26/19 22:40 Lab Results 05/26/19 05/26/19 05/26/19 Range/Units 22:40 22:40 22:40 WBC 14.1 H (3.8-10.6) k/uL RBC 4.35 (4.30-5.90) m/uL Hgb 13.0 (13.0-17.5) gm/dL Hct 39.4 (39.0-53.0) % MCV 90.6 (80.0-100.0) fL MCH 29.8 (25.0-35.0) pg MCHC 32.9 (31.0-37.0) g/dL RDW 13.1 (11.5-15.5) % Plt Count 185 (150-450) k/uL Neutrophils % 81 % Lymphocytes % 12 % Monocytes % 6 % Eosinophils % 0 % Basophils % 0 % Neutrophils # 11.3 H (1.3-7.7) k/uL Lymphocytes # 1.7 (1.0-4.8) k/uL Monocytes # 0.8 (0-1.0) k/uL Eosinophils # 0.1 (0-0.7) k/uL Basophils # 0.0 (0-0.2) k/uL PT 9.6 (9.0-12.0) sec INR 0.9 (<1.2) APTT 22.4 (22.0-30.0) sec Sodium 134 L (137-145) mmol/L Potassium 4.2 (3.5-5.1) mmol/L Chloride 98 (98-107) mmol/L Carbon Dioxide 24 (22-30) mmol/L Anion Gap 12 mmol/L BUN 69 H (9-20) mg/dL Creatinine 2.68 H (0.66-1.25) mg/dL Est GFR (CKD-EPI)AfAm 25 (>60 ml/min/1.73 sqM) Est GFR (CKD-EPI)NonAf 22 (>60 ml/min/1.73 sqM) Glucose 596 H* (74-99) mg/dL POC Glucose (mg/dL) (75-99) mg/dL POC Glu Community Nurse ID Calcium 8.5 (8.4-10.2) mg/dL Total Bilirubin 0.5 (0.2-1.3) mg/dL AST 22 (17-59) U/L ALT 9 L (21-72) U/L Alkaline Phosphatase 114 (38-126) U/L Troponin I (0.000-0.034) ng/mL Total Protein 6.9 (6.3-8.2) g/dL Albumin 4.0 (3.5-5.0) g/dL 05/26/19 05/26/19 05/27/19 Range/Units 22:40 23:52 00:59 WBC (3.8-10.6) k/uL RBC (4.30-5.90) m/uL Hgb (13.0-17.5) gm/dL Hct (39.0-53.0) % MCV (80.0-100.0) fL MCH (25.0-35.0) pg MCHC (31.0-37.0) g/dL RDW (11.5-15.5) % Plt Count (150-450) k/uL Neutrophils % % Lymphocytes % % Monocytes % % Eosinophils % % Basophils % % Neutrophils # (1.3-7.7) k/uL Lymphocytes # (1.0-4.8) k/uL Monocytes # (0-1.0) k/uL Eosinophils # (0-0.7) k/uL Basophils # (0-0.2) k/uL PT (9.0-12.0) sec INR (<1.2) APTT (22.0-30.0) sec Sodium (137-145) mmol/L Potassium (3.5-5.1) mmol/L Chloride (98-107) mmol/L Carbon Dioxide (22-30) mmol/L Anion Gap mmol/L BUN (9-20) mg/dL Creatinine (0.66-1.25) mg/dL Est GFR (CKD-EPI)AfAm (>60 ml/min/1.73 sqM) Est GFR (CKD-EPI)NonAf (>60 ml/min/1.73 sqM) Glucose (74-99) mg/dL POC Glucose (mg/dL) 546 H 499 H (75-99) mg/dL POC Glu Community Nurse ID Arft, Maurice Newton Calcium (8.4-10.2) mg/dL Total Bilirubin (0.2-1.3) mg/dL AST (17-59) U/L ALT (21-72) U/L Alkaline Phosphatase (38-126) U/L Troponin I <0.012 (0.000-0.034) ng/mL Total Protein (6.3-8.2) g/dL Albumin (3.5-5.0) g/dL 05/27/19 Range/Units 02:37 WBC (3.8-10.6) k/uL RBC (4.30-5.90) m/uL Hgb (13.0-17.5) gm/dL Hct (39.0-53.0) % MCV (80.0-100.0) fL MCH (25.0-35.0) pg MCHC (31.0-37.0) g/dL RDW (11.5-15.5) % Plt Count (150-450) k/uL Neutrophils % % Lymphocytes % % Monocytes % % Eosinophils % % Basophils % % Neutrophils # (1.3-7.7) k/uL Lymphocytes # (1.0-4.8) k/uL Monocytes # (0-1.0) k/uL Eosinophils # (0-0.7) k/uL Basophils # (0-0.2) k/uL PT (9.0-12.0) sec INR (<1.2) APTT (22.0-30.0) sec Sodium (137-145) mmol/L Potassium (3.5-5.1) mmol/L Chloride (98-107) mmol/L Carbon Dioxide (22-30) mmol/L Anion Gap mmol/L BUN (9-20) mg/dL Creatinine (0.66-1.25) mg/dL Est GFR (CKD-EPI)AfAm (>60 ml/min/1.73 sqM) Est GFR (CKD-EPI)NonAf (>60 ml/min/1.73 sqM) Glucose (74-99) mg/dL POC Glucose (mg/dL) 349 H (75-99) mg/dL POC Glu Community Nurse ID ArftKeyur Calcium (8.4-10.2) mg/dL Total Bilirubin (0.2-1.3) mg/dL AST (17-59) U/L ALT (21-72) U/L Alkaline Phosphatase (38-126) U/L Troponin I (0.000-0.034) ng/mL Total Protein (6.3-8.2) g/dL Albumin (3.5-5.0) g/dL Disposition Clinical Impression: Hyperglycemia, GOSIA (acute kidney injury) Disposition: ADMITTED IP TO THIS HOSP Condition: Stable Referrals: [facility],Clinic [Primary Care Provider] - 1-2 days
[2019-05-26] MEDS ORDERED: SODIUM CHLORIDE 0.9% 1,000 ML IV ONE (23:12)
[2019-05-26] MEDS ORDERED: INSULIN ASPART (NovoLOG) 100 UNIT/ML VIAL SQ ONE (23:15)
[2019-05-26] MEDS ORDERED: NALOXONE 0.4 MG/ML 1 ML VIAL IV PRN (23:23)
--- NOTE | 2019-05-26 23:38 | CT ---
EXAM: CT Head Without Intravenous Contrast CLINICAL HISTORY: Neuro Deficits TECHNIQUE: Axial computed tomography images of the head/brain without intravenous contrast. CTDI is 49.1 mGy and DLP is 1142 mGy-cm. This CT exam was performed using one or more of the following dose reduction techniques: automated exposure control, adjustment of the mA and/or kV according to patient size, and/or use of iterative reconstruction technique. COMPARISON: No relevant prior studies available. FINDINGS: No intracranial hemorrhage, abnormal intra- or extra-axial collections or parenchymal lesions are seen. There are involutional changes with prominence of the sulci, basal cisterns and ventricles. Scattered white matter hypoattenuations are present, likely from small vessel disease. The garcia-white differentiation is preserved. No evidence of mass effect, midline shift, or edema. The osseous structures are unremarkable. The visualized portions of the paranasal sinuses are clear. IMPRESSION: 1. No acute intracranial process. 2. Involutional changes with small vessel disease.
--- NOTE | 2019-05-26 23:42 | XR ---
EXAM: XR Chest, 2 Views CLINICAL HISTORY: altered mental status TECHNIQUE: Frontal and lateral views of the chest. COMPARISON: No relevant prior studies available. FINDINGS: Lungs: Unremarkable. No consolidation. Pleural space: Unremarkable. No pneumothorax. Heart: Unremarkable. No cardiomegaly. Mediastinum: Unremarkable. Bones/joints: Unremarkable. IMPRESSION: No acute abnormality in the lungs
[2019-05-26 23:53] LABS: Glucose,Whole Blood 546 mg/dL (75-99)
[2019-05-27 01:03] LABS: Glucose,Whole Blood 499 mg/dL (75-99)
[2019-05-27] MEDS ORDERED: INSULIN ASPART (NovoLOG) 100 UNIT/ML VIAL SQ ONE (01:41)
[2019-05-27 02:38] LABS: Glucose,Whole Blood 349 mg/dL (75-99)
[2019-05-27 04:21] LABS: Glucose,Whole Blood 296 mg/dL (75-99)
[2019-05-27 07:19] LABS: Glucose,Whole Blood 241 mg/dL (75-99)
[2019-05-27] MEDS: INSULIN ASPART (NovoLOG) 100 UNIT/ML VIAL SQ SCH ×6 (07:36→20:24)
[2019-05-27 10:50] VITALS: BMI 33.2
[2019-05-27 12:00] LABS: Glucose,Whole Blood 319 mg/dL (75-99)
[2019-05-27] MEDS: SODIUM CHLORIDE 0.9% 1,000 ML IV SCH ×3 (12:24→21:17)
[2019-05-27] MEDS ORDERED: INSULIN ASPART (NovoLOG) 100 UNIT/ML VIAL SQ SCH ×2 (12:30→21:00)
--- NOTE | 2019-05-27 16:32 | P.HPIM ---
History of Present Illness 81-year-old pleasant gentleman lives with family was brought in because of generalized weakness patient does have history of Parkinson patient the came in with complaints of polyuria. Patient is found to have highly elevated blood s ugars of 600. Patient was only discharged on 15 units of Lantus light during her last discharge in month of February by me that patient as per the documentation appears to be on a short-acting insulin 70 units twice a day. Patient blood sugars are presently 300. Did not receive any long-acting insulin last night because of this confusion with insulin I'm starting him on on 30 units of Lantus with the 10 units with each meal along with sliding scale. Patient is comparing of mild headache. Patient is a poor historian but able to answers questions appropriately. Review of Systems REVIEW OF SYSTEMS: CONSTITUTIONAL: No fever, no malaise. HEENT: No recent visual problems or hearing problems. Denied any sore throat. CARDIOVASCULAR: No chest pain, orthopnea, PND, no palpitations, no syncope. PULMONARY: No shortness of breath, no cough, no hemoptysis. GASTROINTESTINAL: No diarrhea, no nausea, no vomiting, no abdominal pain. NEUROLOGICAL: No headaches, no weakness, no numbness. HEMATOLOGICAL: Denies any bleeding or petechiae. GENITOURINARY: Denies any burning micturition, frequency, or urgency. MUSCULOSKELETAL/RHEUMATOLOGICAL: Denies any joint pain, swelling, or any muscle pain. ENDOCRINE: As mentioned in HPI The rest of the 14-point review of systems is negative. Past Medical History Past Medical History: Atrial Flutter, Cancer, Heart Failure, COPD, Diabetes Mellitus, Hypertension, Musculoskeletal Disorder, Neurologic Disorder, Thyroid Disorder Additional Past Medical History / Comment(s): PT ADMITTED ON 10/27/18 WITH BACTEREMIA D/T KLEBSIELLA PNE/TRANSAMINITIS/BILIARY SLUDGE PER US. OTHERHX: HX A-FLUTTER/TACHYCARDIA- TX W/ SAL/CARDIOVERSION, HAS BLADDER CA WITH SURGERY AND BLADDER INSTILLATION OF MED FOR BLADDER CANCER, IDC WITH UTI-REMOVED, IDDM TYPE II, BILATERAL CATARACTS, ABD HERNIA. PARKINSONS, DIVERTICULITIS, EDEMA FEET/LEGS, DDD lower spine, HYPOTHYROID, PNEUMONIA WITH SEPSIS, acute renal failure d/t acute tubular necrosis d/t sepsis, possible CKD. Last Myocardial Infarction Date:: UNK History of Any Multi-Drug Resistant Organisms: None Reported Date of last positivie culture/infection: 03/04/19 MDRO Source:: Groin Past Surgical History: Adenoidectomy, Bladder Surgery, Cholecystectomy, Tonsillectomy Additional Past Surgical History / Comment(s): 2013 CARDIOVERSION, SAL. BLADDER TUMOR REMOVED,cystoscopy with bladder CA TREATMENTS, colonoscopy Past Anesthesia/Blood Transfusion Reactions: Previous Problems w/ Anesthesia Additional Past Anesthesia/Blood Transfusion Reaction / Comment(s): HX CLAUSTROPHOBIA Past Psychological History: Anxiety Additional Psychological History / Comment(s): and lives in the family home with his . Retired. No service. Pet dog in the home no recent travel Smoking Status: Former smoker Past Alcohol Use History: None Reported Additional Past Alcohol Use History / Comment(s): QUIT SMOKING 1989- WAS 3 1/2 PPD, PER PTS -PT WAS AN ALCOHOLIC, QUIT 1991. Past Drug Use History: None Reported - Past Family History Father Family Medical History: Cancer Additional Family Medical History / Comment(s): Bone cancer. Mother Family Medical History: Coronary Artery Disease (CAD) Additional Family Medical History / Comment(s): Macular degeneration Sister(s) Family Medical History: Cancer Additional Family Medical History / Comment(s): breast CA Medications and Allergies Home Medications Medication Instructions Recorded Confirmed Type Amiodarone HCl 200 mg PO QAM 04/21/14 05/27/19 History Metoprolol Tartrate 25 mg PO BID 04/21/16 05/27/19 History Carbidopa-Levodopa 25-100 mg 2 tab PO TID 07/08/16 05/27/19 History [Sinemet 25-100 mg] Furosemide [Lasix] 40 mg PO BID 05/27/19 05/27/19 History Insulin Lispro [humaLOG Kwikpen] 75 unit SQ BID 05/27/19 05/27/19 History Levothyroxine Sodium [Synthroid] 100 mcg PO DAILY 05/27/19 05/27/19 History Lisinopril 40 mg PO BID 05/27/19 05/27/19 History Allergies Allergy/AdvReac Type Severity Reaction Status Date / Time aspirin Allergy Swelling Verified 03/02/19 09:59 NSAIDS (Non-Steroidal Allergy Swelling Verified 03/02/19 09:59 Anti-Inflamma Physical Exam Vitals: Vital Signs Temp Pulse Pulse Resp BP BP Pulse Ox 05/27/19 07:38 70 16 129/66 95 05/27/19 04:00 18 05/27/19 03:44 98.6 F 72 18 125/65 100 05/27/19 03:00 85 20 135/64 95 05/27/19 00:49 76 20 161/61 97 05/26/19 22:06 98.5 F 69 18 168/65 92 L Intake and Output 05/27/19 05/27/19 05/27/19 06:59 14:59 22:59 Intake Total 1000 240 Output Total 400 100 Balance 600 140 Intake: Amount of Fluid Infused ( 1000 ml) Oral 240 Output: Urine 400 100 Other: Voiding Method Toilet # Voids 1 # Bowel Movements 1 Weight 102.058 kg PHYSICAL EXAMINATION: GENERAL: The patient is alert and oriented x3, and is definitely low because of the Parkinson's . HEENT: Pupils are round and equally reacting to light. EOMI. No scleral icterus. No conjunctival pallor. Normocephalic, atraumatic. No pharyngeal erythema. No thyromegaly. CARDIOVASCULAR: S1 and S2 present. No murmurs, rubs, or gallops. PULMONARY: Chest is clear to auscultation, no wheezing or crackles. ABDOMEN: Soft, nontender, nondistended, normoactive bowel sounds. No palpable organomegaly. MUSCULOSKELETAL: No joint swelling or deformity. EXTREMITIES: No cyanosis, clubbing, or pedal edema. NEUROLOGICAL: Gross neurological examination did not reveal any focal deficits. SKIN: No rashes. Results CBC & Chem 7: 05/26/19 22:40 05/26/19 22:40 Labs: Abnormal Lab Results - Last 24 Hours (Table) 05/26/19 05/26/19 05/26/19 Range/Units 22:40 22:40 23:52 WBC 14.1 H (3.8-10.6) k/uL Neutrophils # 11.3 H (1.3-7.7) k/uL Sodium 134 L (137-145) mmol/L BUN 69 H (9-20) mg/dL Creatinine 2.68 H (0.66-1.25) mg/dL Glucose 596 H* (74-99) mg/dL POC Glucose (mg/dL) 546 H (75-99) mg/dL ALT 9 L (21-72) U/L 05/27/19 05/27/19 05/27/19 Range/Units 00:59 02:37 04:19 WBC (3.8-10.6) k/uL Neutrophils # (1.3-7.7) k/uL Sodium (137-145) mmol/L BUN (9-20) mg/dL Creatinine (0.66-1.25) mg/dL Glucose (74-99) mg/dL POC Glucose (mg/dL) 499 H 349 H 296 H (75-99) mg/dL ALT (21-72) U/L 05/27/19 05/27/19 Range/Units 07:17 11:58 WBC (3.8-10.6) k/uL Neutrophils # (1.3-7.7) k/uL Sodium (137-145) mmol/L BUN (9-20) mg/dL Creatinine (0.66-1.25) mg/dL Glucose (74-99) mg/dL POC Glucose (mg/dL) 241 H 319 H (75-99) mg/dL ALT (21-72) U/L Thrombosis Risk Factor Assmnt - Choose All That Apply Any of the Below Risk Factors Present?: Yes Each Risk Factor Represents 3 Points: Age 75 years or older Thrombosis Risk Factor Assessment Total Risk Factor Score: 3 Thrombosis Risk Factor Assessment Level: Moderate Risk Assessment and Plan Plan: -Hypoglycemia: Further management as mentioned above -Hyponatremia hypovolemic hyponatremia and ceramic bacteremia from hyperglycemia continue with IV fluids and the correction of hyperglycemia as mentioned above -Generalized weakness from my hyperglycemia and dehydration expected to improve with IV fluids and correction of blood glucose -Parkinson's with significant weakness will obtain PT and OT consultation -0 without any acute information - hypertension next and haven't hyper thyroidism -COPD without any acute exacerbation - acute renal failure secondary to polyuria baseline creatinine around 1.2 patient appears to have 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 anxiety disorder
[2019-05-27 16:35] LABS: Glucose,Whole Blood 206 mg/dL (75-99)
[2019-05-27] MEDS: CARBIDOPA-LEVODOPA 25-100 MG 1 EACH TAB PO SCH ×2 (16:50→21:17)
[2019-05-27] MEDS: ACETAMINOPHEN TAB 325 MG TAB PO PRN (19:07)
--- NOTE | 2019-05-27 19:44 | CONS ---
CONSULTATION REASON FOR CONSULT: Renal failure. HISTORY OF PRESENT ILLNESS: Patient is a 79-year-old male who was admitted to the hospital with complaints of weakness, not able to walk well, and extremely elevated blood sugars. His glucose was 596. Serum creatinine was 2.68. Review of previous labs shows a serum creatinine 1.2 and 1.3 mg/dL in February of 2019. There is no history of use of nonsteroidal anti- inflammatory agents prior to admission. Blood pressure has been slightly on the lower side, but not significantly low. Patient was maintained on SHIV inhibitors at home prior to admission. He is currently maintained on IV fluids. He has had good urine output. PAST MEDICAL HISTORY: 1. Hypertension. 2. Atrial flutter. 3. COPD. 4. Type 2 diabetes. 5. Hypothyroidism. 6. History of bladder cancer. 7. UTI. 8. Diverticulitis. 9. Pneumonia. PAST SURGICAL HISTORY: 1. Cardioversion. 2. SAL. 3. Cystoscopy. 4. Colonoscopy. SOCIAL HISTORY: Patient is a former smoker. No history of drug abuse or alcohol abuse. MEDICATIONS: Medications prior to admission included: 1. Amiodarone. 2. Metoprolol. 3. Insulin. 4. Lasix. 5. Sinemet. 6. Synthroid. 7. Lisinopril. ALLERGIES: Include: 1. ASPIRIN causes swelling. 2. NSAIDs, which cause swelling. REVIEW OF SYSTEMS: As per HPI. Other systems negative. PHYSICAL EXAMINATION: Patient is currently comfortable. He is sleeping. He is arousable. He is not in any acute distress. Blood pressure this morning was 129/66, heart rate 70 per minute. Patient is afebrile. EXAMINATION OF THE HEART: S1 and S2. EXAMINATION OF LUNGS: Bilateral breath sounds are heard. ABDOMEN: Soft, non-tender. Examination of lower extremities shows no significant edema. [employer] exam is grossly intact. LABS: Hemoglobin 13.0, sodium 134, potassium 4.2, BUN 69, serum creatinine 2.68. Sugar was 596. UA is not available. ASSESSMENT: 1. Acute kidney injury, most likely prerenal, associated with severe hyperglycemia and volume depletion. Continue off of SHIV inhibitors. Maintain gentle IV hydration. Repeat labs in a.m. Check urinalysis. Check ultrasound of the kidneys. 2. Hyperglycemia. His insulin dose is being adjusted. 3. Hypothyroidism. 4. History of atrial fibrillation, maintained on amiodarone. 5. History of Parkinson's disease, maintained on Sinemet. PLAN: Continue IV hydration. Repeat labs in a.m. Check UA. Check ultrasound of the kidneys. Thank you for this consultation. We will continue to follow the patient with you during his hospitalization. NICOLE / ESSENCE: [id number] /
[2019-05-27 20:22] LABS: Glucose,Whole Blood 102 mg/dL (75-99)
[2019-05-27] MEDS: INSULIN DETEMIR (LEVEMIR) 100 UNIT/ML SYR SQ SCH (20:23)
[2019-05-27] MEDS: METOPROLOL TARTRATE 25 MG TAB PO SCH (20:30)
[2019-05-27] MEDS ORDERED: INSULIN DETEMIR (LEVEMIR) 100 UNIT/ML SYR SQ SCH (21:00)
[2019-05-27] MEDS: HEPARIN SODIUM,PORCINE 5,000 UNIT/ML 1 ML VIAL SQ SCH (23:06)
[2019-05-28] MEDS: SODIUM CHLORIDE 0.9% 1,000 ML IV SCH ×3 (01:11→22:41)
[2019-05-28] MEDS: ACETAMINOPHEN TAB 325 MG TAB PO PRN (01:12)
[2019-05-28 02:11] LABS: Glucose,Whole Blood 135 mg/dL (75-99)
[2019-05-28] MEDS: LEVOTHYROXINE 100 MCG TAB PO SCH (05:16)
[2019-05-28 07:14] LABS: HCT 35.7 % (39.0-53.0); HGB 11.9 gm/dL (13.0-17.5); MCH 30.3 pg (25.0-35.0); MCHC 33.4 g/dL (31.0-37.0); MCV 90.8 fL (80.0-100.0); Mean Platelet Volume 8.5; Platelet Count 172 k/uL (150-450); RBC 3.93 m/uL (4.30-5.90); RDW 13.5 % (11.5-15.5); WBC 11.5 k/uL (3.8-10.6)
[2019-05-28 07:20] LABS: Glucose,Whole Blood 160 mg/dL (75-99)
[2019-05-28 07:24] LABS: Calcium 8.2 mg/dL (8.4-10.2); Potassium 3.6 mmol/L (3.5-5.1)
[2019-05-28] MEDS: METOPROLOL TARTRATE 25 MG TAB PO SCH ×2 (08:12→21:42)
[2019-05-28] MEDS: INSULIN ASPART (NovoLOG) 100 UNIT/ML VIAL SQ SCH ×7 (08:12→21:39)
[2019-05-28] MEDS: HEPARIN SODIUM,PORCINE 5,000 UNIT/ML 1 ML VIAL SQ SCH ×2 (08:12→17:13)
[2019-05-28] MEDS: CARBIDOPA-LEVODOPA 25-100 MG 1 EACH TAB PO SCH ×3 (08:13→21:42)
[2019-05-28] MEDS: AMIODARONE 200 MG TAB PO SCH (08:13)
--- NOTE | 2019-05-28 09:33 | US ---
EXAMINATION TYPE: US kidneys/renal and bladder DATE OF EXAM: 05/28/2019 COMPARISON: NONE CLINICAL HISTORY: rf. renal failure in large body habitus that has to sit fully erect for exam, unabl e to roll or take big breath in for optimal imaging. EXAM MEASUREMENTS: Right Kidney: 7.3 x 4.6 x 5.4 cm Left Kidney: N/A Right Kidney: limited views due to reasons states above, possible atrophic kidney with no other abnor mality seen Left Kidney: unable to visualize kidney due to bowel gas and positioning of patient. Bladder: not distended Left kidney is nonvisualized. I assume the patient has had a previous left nephrectomy. IMPRESSION: SMALL, PROBABLY ATROPHIC RIGHT KIDNEY.
--- NOTE | 2019-05-28 10:11 | P.PN ---
Subjective Patient is seen in follow-up for acute kidney injury on chronic kidney disease. Patient has chronic kidney disease stage III with baseline creatinine near 1.2- 1.4. Creatinine was 2.68 on admission and is down to 1.69 today. Blood sugar is better controlled. He admits to good urine output. No vomiting or diarrhea. Vital signs are stable. General: The patient appeared well nourished and normally developed. HEENT: Head exam is unremarkable. Neck is without jugular venous distension. LUNGS: Lungs are clear to auscultation and percussion. Breath sounds decreased. HEART: Rate and Rhythm are regular. First and second heart sounds normal. No murmurs, rubs or gallops. ABDOMEN: Abdominal exam reveals normal bowel sounds. Non-tender and non- distended. No evidence of peritonitis. EXTREMITITES: No clubbing, cyanosis, or edema. Objective - Vital Signs Vital signs: Vital Signs Temp 97.8 F 05/28/19 08:20 Pulse 65 05/28/19 08:20 Resp 16 05/28/19 08:20 BP 120/69 05/28/19 08:20 Pulse Ox 100 05/28/19 08:20 Intake & Output 05/27/19 05/28/19 05/28/19 18:59 06:59 18:59 Intake Total 240 825 Output Total 100 200 Balance 140 625 Weight 102.058 kg Intake: Intake, IV Titration 825 Amount Sodium Chloride 0.9% 1, 825 000 ml @ 75 mls/hr IV . [id number] [facility] Rx#:[id number] Oral 240 Output: Urine 100 200 Other: # Voids 3 # Bowel Movements 1 - Labs CBC & Chem 7: 05/28/19 06:42 05/28/19 06:42 Labs: Abnormal Lab Results - Last 24 Hours (Table) 05/27/19 05/27/19 05/27/19 Range/Units 11:58 16:34 20:21 WBC (3.8-10.6) k/uL RBC (4.30-5.90) m/uL Hgb (13.0-17.5) gm/dL Hct (39.0-53.0) % BUN (9-20) mg/dL Creatinine (0.66-1.25) mg/dL Glucose (74-99) mg/dL POC Glucose (mg/dL) 319 H 206 H 102 H (75-99) mg/dL Calcium (8.4-10.2) mg/dL 05/28/19 05/28/19 05/28/19 Range/Units 02:10 06:42 06:42 WBC 11.5 H (3.8-10.6) k/uL RBC 3.93 L (4.30-5.90) m/uL Hgb 11.9 L (13.0-17.5) gm/dL Hct 35.7 L (39.0-53.0) % BUN 49 H (9-20) mg/dL Creatinine 1.69 H (0.66-1.25) mg/dL Glucose 166 H (74-99) mg/dL POC Glucose (mg/dL) 135 H (75-99) mg/dL Calcium 8.2 L (8.4-10.2) mg/dL 05/28/19 Range/Units 07:19 WBC (3.8-10.6) k/uL RBC (4.30-5.90) m/uL Hgb (13.0-17.5) gm/dL Hct (39.0-53.0) % BUN (9-20) mg/dL Creatinine (0.66-1.25) mg/dL Glucose (74-99) mg/dL POC Glucose (mg/dL) 160 H (75-99) mg/dL Calcium (8.4-10.2) mg/dL Assessment and Plan Plan: Assessment: 1. Acute kidney injury mostly prerenal secondary to intravascular volume depletion from hyperglycemia. Creatinine was 2.68 on admission and is down to 1.69 today. Ultrasound revealed no hydronephrosis however left kidney was not visualized. Additionally his right kidney is atrophic. 2. 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 3. Insulin-dependent diabetes mellitus. 4. History of A. fib. Maintained on amiodarone and lopressor. Plan: Hep-Lock IV fluids. Encouraged PO intake. F/u outpatient in 2 weeks.
[2019-05-28 10:30] LABS: Appearance,Urine Cloudy (Clear); Bacteria,Urine Rare /hpf; Bilirubin,Urine Negative (Negative); Blood,Urine Trace (Negative); Budding Yeast,Urine Rare /hpf; Color,Urine Yellow; Glucose,Urine (UA) 4+ (Negative); Ketones,Urine 1+ (Negative); Leukocyte Esterase,Urine Large (Negative); Nitrite,Urine Negative (Negative); PH, Urine 5.5 (5.0-8.0); Protein,Urine 1+ (Negative); RBC,Urine 1 /hpf (0-5); Specific Gravity,Urine 1.017 (1.001-1.035); Urobilinogen,Urine <2.0 mg/dL (<2.0); WBC,Urine >182 /hpf (0-5)
[2019-05-28 11:47] LABS: Glucose,Whole Blood 228 mg/dL (75-99)
--- NOTE | 2019-05-28 12:48 | P.PN ---
Subjective 81-year-old pleasant gentleman lives with family was brought in because of generalized weakness patient does have history of Parkinson patient the came in with complaints of polyuria. Patient is found to have highly elevated blood sugars of 600. Patient was only discharged on 15 units of Lantus light during her last discharge in month of February by me that patient as per the documentation appears to be on a short-acting insulin 70 units twice a day. Patient blood sugars are presently 300. Did not receive any long-acting insulin last night because of this confusion with insulin I'm starting him on on 30 units of Lantus with the 10 units with each meal along with sliding scale. Patient is comparing of mild headache. Patient is a poor historian but able to answers questions appropriately. 05/28/2019 Patient is clinically doing well blood sugars are well controlled his creatinine improved and almost close to his baseline patient can be discharged from medical perspective but will need placement in subacute rehabilitation which need prior authorization from the insurance company. Constitutional: Denied any fatigue denied any fever. Cardio vascular: denied any chest pain, palpitations Gastrointestinal denied any nausea vomiting Pulmonary: Denied any shortness of breath cough Neurologic denied any new focal deficits All inpatient medications were reviewed and appropriate changes in these medications as dictated in the interval history and assessment and plan. Objective - Vital Signs Vital signs: Vital Signs Temp 97.8 F 05/28/19 08:20 Pulse 65 05/28/19 08:20 Resp 16 05/28/19 08:20 BP 120/69 05/28/19 08:20 Pulse Ox 100 05/28/19 08:20 Intake & Output 05/27/19 05/28/19 05/28/19 18:59 06:59 18:59 Intake Total 240 825 Output Total 100 200 Balance 140 625 Weight 102.058 kg Intake: Intake, IV Titration 825 Amount Sodium Chloride 0.9% 1, 825 000 ml @ 75 mls/hr IV . [id number] [facility] Rx#:[id number] Oral 240 Output: Urine 100 200 Other: # Voids 3 2 # Bowel Movements 1 - Exam PHYSICAL EXAMINATION: GENERAL: The patient is alert and oriented x3, and is definitely low because of the Parkinson's . HEENT: Pupils are round and equally reacting to light. EOMI. No scleral icterus. No conjunctival pallor. Normocephalic, atraumatic. No pharyngeal erythema. No thyromegaly. CARDIOVASCULAR: S1 and S2 present. No murmurs, rubs, or gallops. PULMONARY: Chest is clear to auscultation, no wheezing or crackles. ABDOMEN: Soft, nontender, nondistended, normoactive bowel sounds. No palpable organomegaly. MUSCULOSKELETAL: No joint swelling or deformity. EXTREMITIES: No cyanosis, clubbing, does have pedal edema extensive NEUROLOGICAL: Gross neurological examination did not reveal any focal deficits. SKIN: No rashes. - Labs CBC & Chem 7: 05/28/19 06:42 05/28/19 06:42 Labs: Abnormal Lab Results - Last 24 Hours (Table) 05/27/19 05/27/19 05/27/19 Range/Units 09:56 16:34 20:21 WBC (3.8-10.6) k/uL RBC (4.30-5.90) m/uL Hgb (13.0-17.5) gm/dL Hct (39.0-53.0) % BUN (9-20) mg/dL Creatinine (0.66-1.25) mg/dL Glucose (74-99) mg/dL POC Glucose (mg/dL) 206 H 102 H (75-99) mg/dL Calcium (8.4-10.2) mg/dL Urine Protein 1+ H (Negative) Urine Glucose (UA) 4+ H (Negative) Urine Ketones 1+ H (Negative) Urine Blood Trace H (Negative) Ur Leukocyte Esterase Large H (Negative) Urine WBC >182 H (0-5) /hpf Urine WBC Clumps Few H (None) /hpf Urine Bacteria Rare H (None) /hpf Urine Yeast (Budding) Rare H (None) /hpf 05/28/19 05/28/19 05/28/19 Range/Units 02:10 06:42 06:42 WBC 11.5 H (3.8-10.6) k/uL RBC 3.93 L (4.30-5.90) m/uL Hgb 11.9 L (13.0-17.5) gm/dL Hct 35.7 L (39.0-53.0) % BUN 49 H (9-20) mg/dL Creatinine 1.69 H (0.66-1.25) mg/dL Glucose 166 H (74-99) mg/dL POC Glucose (mg/dL) 135 H (75-99) mg/dL Calcium 8.2 L (8.4-10.2) mg/dL Urine Protein (Negative) Urine Glucose (UA) (Negative) Urine Ketones (Negative) Urine Blood (Negative) Ur Leukocyte Esterase (Negative) Urine WBC (0-5) /hpf Urine WBC Clumps (None) /hpf Urine Bacteria (None) /hpf Urine Yeast (Budding) (None) /hpf 05/28/19 05/28/19 Range/Units 07:19 11:36 WBC (3.8-10.6) k/uL RBC (4.30-5.90) m/uL Hgb (13.0-17.5) gm/dL Hct (39.0-53.0) % BUN (9-20) mg/dL Creatinine (0.66-1.25) mg/dL Glucose (74-99) mg/dL POC Glucose (mg/dL) 160 H 228 H (75-99) mg/dL Calcium (8.4-10.2) mg/dL Urine Protein (Negative) Urine Glucose (UA) (Negative) Urine Ketones (Negative) Urine Blood (Negative) Ur Leukocyte Esterase (Negative) Urine WBC (0-5) /hpf Urine WBC Clumps (None) /hpf Urine Bacteria (None) /hpf Urine Yeast (Budding) (None) /hpf Assessment and Plan Plan: -Hypoglycemia: Fas her well-controlled -Hyponatremia hypovolemic hyponatremia , N pseudohyponatremia from hyperglycemia improved with IV fluids -Generalized weakness from my hyperglycemia and dehydration rule out -Parkinson's with significant weakness she will require subacute rehabilitation placement - hypertension next and haven't hyper thyroidism -COPD without any acute exacerbation - acute renal failure secondary to polyuria baseline creatinine around 1.2 patient appears to have 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 anxiety disorder
[2019-05-28 16:54] LABS: Glucose,Whole Blood 158 mg/dL (75-99)
[2019-05-28 21:28] LABS: Glucose,Whole Blood 73 mg/dL (75-99)
[2019-05-28 21:48] LABS: Glucose,Whole Blood 68 mg/dL (75-99)
[2019-05-28] MEDS: INSULIN DETEMIR (LEVEMIR) 100 UNIT/ML SYR SQ SCH (21:59)
[2019-05-28 22:25] LABS: Glucose,Whole Blood 114 mg/dL (75-99)
[2019-05-29] MEDS: HEPARIN SODIUM,PORCINE 5,000 UNIT/ML 1 ML VIAL SQ SCH ×4 (00:10→23:13)
[2019-05-29] MEDS: ACETAMINOPHEN TAB 325 MG TAB PO PRN (00:14)
[2019-05-29] MEDS: LEVOTHYROXINE 100 MCG TAB PO SCH (05:51)
[2019-05-29 07:06] LABS: Glucose,Whole Blood 200 mg/dL (75-99)
[2019-05-29 07:13] LABS: Calcium 8.5 mg/dL (8.4-10.2); Magnesium 1.6 mg/dL (1.6-2.3); Potassium 4.1 mmol/L (3.5-5.1)
[2019-05-29] MEDS: CARBIDOPA-LEVODOPA 25-100 MG 1 EACH TAB PO SCH ×3 (07:47→20:15)
[2019-05-29] MEDS: AMIODARONE 200 MG TAB PO SCH (07:47)
[2019-05-29] MEDS: METOPROLOL TARTRATE 25 MG TAB PO SCH (07:47)
[2019-05-29] MEDS: INSULIN ASPART (NovoLOG) 100 UNIT/ML VIAL SQ SCH ×7 (07:48→20:14)
[2019-05-29] MEDS: SODIUM CHLORIDE 0.9% 1,000 ML IV SCH (07:49)
--- NOTE | 2019-05-29 10:17 | P.PN ---
Subjective Patient is seen in follow-up for acute kidney injury on chronic kidney disease. Patient has chronic kidney disease stage III with baseline creatinine near 1.2- 1.4. Creatinine was 2.68 on admission and is down to 1.58 today. Blood sugar is better controlled. He admits to good urine output. No vomiting or diarrhea. Vital signs are stable. General: The patient appeared well nourished and normally developed. HEENT: Head exam is unremarkable. Neck is without jugular venous distension. LUNGS: Lungs are clear to auscultation and percussion. Breath sounds decreased. HEART: Rate and Rhythm are regular. First and second heart sounds normal. No murmurs, rubs or gallops. ABDOMEN: Abdominal exam reveals normal bowel sounds. Non-tender and non- distended. No evidence of peritonitis. EXTREMITITES: No clubbing, cyanosis, or edema. Objective - Vital Signs Vital signs: Vital Signs Temp 97.6 F 05/29/19 07:00 Pulse 50 L 05/29/19 07:00 Resp 16 05/29/19 07:00 BP 112/58 05/29/19 07:00 Pulse Ox 96 05/29/19 07:00 Intake & Output 05/28/19 05/29/19 05/29/19 18:59 06:59 18:59 Intake Total 240 240 Balance 240 240 Intake: Oral 240 240 Other: Voiding Method Toilet Toilet # Voids 2 2 - Labs CBC & Chem 7: 05/28/19 06:42 05/29/19 06:23 Labs: Abnormal Lab Results - Last 24 Hours (Table) 05/27/19 05/28/19 05/28/19 Range/Units 09:56 11:36 16:42 BUN (9-20) mg/dL Creatinine (0.66-1.25) mg/dL Glucose (74-99) mg/dL POC Glucose (mg/dL) 228 H 158 H (75-99) mg/dL Urine Protein 1+ H (Negative) Urine Glucose (UA) 4+ H (Negative) Urine Ketones 1+ H (Negative) Urine Blood Trace H (Negative) Ur Leukocyte Esterase Large H (Negative) Urine WBC >182 H (0-5) /hpf Urine WBC Clumps Few H (None) /hpf Urine Bacteria Rare H (None) /hpf Urine Yeast (Budding) Rare H (None) /hpf 05/28/19 05/28/19 05/28/19 Range/Units 21:20 21:44 22:23 BUN (9-20) mg/dL Creatinine (0.66-1.25) mg/dL Glucose (74-99) mg/dL POC Glucose (mg/dL) 73 L 68 L 114 H (75-99) mg/dL Urine Protein (Negative) Urine Glucose (UA) (Negative) Urine Ketones (Negative) Urine Blood (Negative) Ur Leukocyte Esterase (Negative) Urine WBC (0-5) /hpf Urine WBC Clumps (None) /hpf Urine Bacteria (None) /hpf Urine Yeast (Budding) (None) /hpf 05/29/19 05/29/19 Range/Units 06:23 07:03 BUN 47 H (9-20) mg/dL Creatinine 1.58 H (0.66-1.25) mg/dL Glucose 209 H (74-99) mg/dL POC Glucose (mg/dL) 200 H (75-99) mg/dL Urine Protein (Negative) Urine Glucose (UA) (Negative) Urine Ketones (Negative) Urine Blood (Negative) Ur Leukocyte Esterase (Negative) Urine WBC (0-5) /hpf Urine WBC Clumps (None) /hpf Urine Bacteria (None) /hpf Urine Yeast (Budding) (None) /hpf Assessment and Plan Plan: Assessment: 1. Acute kidney injury mostly prerenal secondary to intravascular volume depletion from hyperglycemia. Creatinine was 2.68 on admission and is down to 1.58 today. Ultrasound revealed no hydronephrosis however left kidney was not visualized. Additionally his right kidney is atrophic. 2. 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 3. Insulin-dependent diabetes mellitus. 4. History of A. fib. Maintained on amiodarone and lopressor. Plan: Remains off IV fluids. Encouraged PO intake. F/u outpatient in 2 weeks.
[2019-05-29] MEDS: MAGNESIUM SULFATE-D5W PMX 1 GM in DEXTROSE/WATER 1 100ML.BAG IVPB SCH ×2 (11:47→13:12)
[2019-05-29 12:06] LABS: Glucose,Whole Blood 213 mg/dL (75-99)
--- NOTE | 2019-05-29 13:34 | P.PN ---
Subjective 81-year-old pleasant gentleman lives with family was brought in because of generalized weakness patient does have history of Parkinson patient the came in with complaints of polyuria. Patient is found to have highly elevated blood sugars of 600. Patient was only discharged on 15 units of Lantus light during her last discharge in month of February by me that patient as per the documentation appears to be on a short-acting insulin 70 units twice a day. Patient blood sugars are presently 300. Did not receive any long-acting insulin last night because of this confusion with insulin I'm starting him on on 30 units of Lantus with the 10 units with each meal along with sliding scale. Patient is comparing of mild headache. Patient is a poor historian but able to answers questions appropriately. 05/28/2019 Patient is clinically doing well blood sugars are well controlled his creatinine improved and almost close to his baseline patient can be discharged from medical perspective but will need placement in subacute rehabilitation which need prior authorization from the insurance company. 05/29/2019 Patient blood sugars were low as today because of which he didn't receive his Levemir. I'll decrease the dose of Levemir as well as pre-meal insulin. His blood sugars are high today as he did not receive Levemir for last couple days. Patient's serum creatinine improved close to his baseline does have extensive pedal edema Constitutional: Denied any fatigue denied any fever. Cardio vascular: denied any chest pain, palpitations Gastrointestinal denied any nausea vomiting Pulmonary: Denied any shortness of breath cough Neurologic denied any new focal deficits All inpatient medications were reviewed and appropriate changes in these medications as dictated in the interval history and assessment and plan. Objective - Vital Signs Vital signs: Vital Signs Temp 97.6 F 05/29/19 07:00 Pulse 50 L 05/29/19 07:00 Resp 16 05/29/19 07:00 BP 112/58 05/29/19 07:00 Pulse Ox 96 05/29/19 07:00 Intake & Output 05/28/19 05/29/19 05/29/19 18:59 06:59 18:59 Intake Total 240 240 Balance 240 240 Intake: Oral 240 240 Other: Voiding Method Toilet Toilet # Voids 2 2 - Exam PHYSICAL EXAMINATION: GENERAL: The patient is alert and oriented x3, and is definitely low because of the Parkinson's . HEENT: Pupils are round and equally reacting to light. EOMI. No scleral icterus. No conjunctival pallor. Normocephalic, atraumatic. No pharyngeal erythema. No thyromegaly. CARDIOVASCULAR: S1 and S2 present. No murmurs, rubs, or gallops. PULMONARY: Chest is clear to auscultation, no wheezing or crackles. ABDOMEN: Soft, nontender, nondistended, normoactive bowel sounds. No palpable organomegaly. MUSCULOSKELETAL: No joint swelling or deformity. EXTREMITIES: No cyanosis, clubbing, does have pedal edema extensive NEUROLOGICAL: Gross neurological examination did not reveal any focal deficits. SKIN: No rashes. - Labs CBC & Chem 7: 05/28/19 06:42 05/29/19 06:23 Labs: Abnormal Lab Results - Last 24 Hours (Table) 05/28/19 05/28/19 05/28/19 Range/Units 16:42 21:20 21:44 BUN (9-20) mg/dL Creatinine (0.66-1.25) mg/dL Glucose (74-99) mg/dL POC Glucose (mg/dL) 158 H 73 L 68 L (75-99) mg/dL 05/28/19 05/29/19 05/29/19 Range/Units 22:23 06:23 07:03 BUN 47 H (9-20) mg/dL Creatinine 1.58 H (0.66-1.25) mg/dL Glucose 209 H (74-99) mg/dL POC Glucose (mg/dL) 114 H 200 H (75-99) mg/dL 05/29/19 Range/Units 11:52 BUN (9-20) mg/dL Creatinine (0.66-1.25) mg/dL Glucose (74-99) mg/dL POC Glucose (mg/dL) 213 H (75-99) mg/dL Assessment and Plan Plan: -Hypoglycemia: Secondary to noncompressed patient is presently hypoglycemic, management of diabetes as mentioned above -Hyponatremia hypovolemic hyponatremia , N pseudohyponatremia from hyperglycemia improved with IV fluids -Generalized weakness from my hyperglycemia and dehydration rule out -Parkinson's with significant we Hypothyroidism -COPD without any acute exacerbation - acute renal failure secondary to polyuria baseline creatinine around 1.2 patient appears to have chronic kidney disease stage II from diabetic ne phropathy acute renal failure prerenal azotemia expected to improve with IV fluids -Leukocytosis reactive in nature. anxiety disorder
[2019-05-29 16:28] LABS: Glucose,Whole Blood 144 mg/dL (75-99)
[2019-05-29] MEDS: METOPROLOL TARTRATE 12.5 MG TAB PO SCH (20:06)
[2019-05-29 20:20] LABS: Glucose,Whole Blood 142 mg/dL (75-99)
[2019-05-29] MEDS ORDERED: INSULIN DETEMIR (LEVEMIR) 100 UNIT/ML SYR SQ SCH ×2 (21:00)
[2019-05-29 22:03] LABS: Glucose,Whole Blood 138 mg/dL (75-99)
[2019-05-30 01:54] LABS: Glucose,Whole Blood 200 mg/dL (75-99)
[2019-05-30] MEDS: LEVOTHYROXINE 100 MCG TAB PO SCH (05:38)
[2019-05-30 06:58] LABS: Glucose,Whole Blood 164 mg/dL (75-99)
[2019-05-30 07:21] VITALS: BP 135/63; PULSE 53; RESP 18; TEMP 97.9
[2019-05-30] MEDS: INSULIN ASPART (NovoLOG) 100 UNIT/ML VIAL SQ SCH ×4 (07:24→12:22)
[2019-05-30] MEDS: METOPROLOL TARTRATE 12.5 MG TAB PO SCH (07:25)
[2019-05-30] MEDS: CARBIDOPA-LEVODOPA 25-100 MG 1 EACH TAB PO SCH ×2 (07:25→15:12)
[2019-05-30] MEDS: AMIODARONE 200 MG TAB PO SCH (07:25)
[2019-05-30] MEDS: HEPARIN SODIUM,PORCINE 5,000 UNIT/ML 1 ML VIAL SQ SCH ×2 (07:25→15:13)
[2019-05-30 08:31] LABS: Calcium 8.8 mg/dL (8.4-10.2); Potassium 4.2 mmol/L (3.5-5.1)
--- NOTE | 2019-05-30 10:24 | P.PN ---
Subjective Patient is seen in follow-up for acute kidney injury on chronic kidney disease. Patient has chronic kidney disease stage III with baseline creatinine near 1.2- 1.4. Creatinine was 2.68 on admission and is down to 1.43 today. Blood sugar is better controlled. He admits to good urine output. No vomiting or diarrhea. Vital signs are stable. General: The patient appeared well nourished and normally developed. HEENT: Head exam is unremarkable. Neck is without jugular venous distension. LUNGS: Lungs are clear to auscultation and percussion. Breath sounds decreased. HEART: Rate and Rhythm are regular. First and second heart sounds normal. No murmurs, rubs or gallops. ABDOMEN: Abdominal exam reveals normal bowel sounds. Non-tender and non- distended. No evidence of peritonitis. EXTREMITITES: No clubbing, cyanosis, or edema. Chronic changes noted. Objective - Vital Signs Vital signs: Vital Signs Temp 97.9 F 05/30/19 06:49 Pulse 53 L 05/30/19 06:49 Resp 18 05/30/19 06:49 BP 135/63 05/30/19 06:49 Pulse Ox 99 05/30/19 06:49 Intake & Output 05/29/19 05/30/19 05/30/19 18:59 06:59 18:59 Intake Total 240 725 240 Balance 240 725 240 Intake: Intake, IV Titration 675 Amount Sodium Chloride 0.9% 1, 675 000 ml @ 75 mls/hr IV . [id number] [facility] Rx#:[id number] Oral 240 50 240 Other: Voiding Method Toilet Toilet # Voids 2 1 1 # Bowel Movements 1 - Labs CBC & Chem 7: 05/28/19 06:42 05/30/19 07:12 Labs: Abnormal Lab Results - Last 24 Hours (Table) 05/29/19 05/29/19 05/29/19 Range/Units 11:52 16:23 20:06 BUN (9-20) mg/dL Creatinine (0.66-1.25) mg/dL Glucose (74-99) mg/dL POC Glucose (mg/dL) 213 H 144 H 142 H (75-99) mg/dL 05/29/19 05/30/19 05/30/19 Range/Units 21:55 01:51 06:49 BUN (9-20) mg/dL Creatinine (0.66-1.25) mg/dL Glucose (74-99) mg/dL POC Glucose (mg/dL) 138 H 200 H 164 H (75-99) mg/dL 05/30/19 Range/Units 07:12 BUN 40 H (9-20) mg/dL Creatinine 1.43 H (0.66-1.25) mg/dL Glucose 141 H (74-99) mg/dL POC Glucose (mg/dL) (75-99) mg/dL Assessment and Plan Plan: Assessment: 1. Acute kidney injury mostly prerenal secondary to intravascular volume depletion from hyperglycemia. Creatinine was 2.68 on admission and is down to 1.43 today. Ultrasound revealed no hydronephrosis however left kidney was not visualized. Additionally his right kidney is atrophic. 2. Chronic kidney disease stage III secondary to diabetic kidney disease with c reatinine 1.2-1.4. 3. Insulin-dependent diabetes mellitus. 4. History of A. fib. Maintained on amiodarone and lopressor. Plan: Remains off IV fluids. Encouraged PO intake. F/u outpatient in 2 weeks. No changes from nephrology standpoint.
[2019-05-30 11:52] LABS: Glucose,Whole Blood 136 mg/dL (75-99)
--- NOTE | 2019-05-30 12:46 | P.DS ---
Providers Date of admission: 05/26/19 23:27 Attending physician: Mikie Ashley MD Consults: 05/26/19 23:24 Consult Physician Urgent Consulting Provider: Ovi Morgan Consult Reason/Comments: acute on chronic kidney Do you want consulting provider notified?: Yes Primary care physician: [facility] Hospital Course: 81-year-old pleasant gentleman lives with family was brought in because of generalized weakness patient does have history of Parkinson patient the came in with complaints of polyuria. Patient is found to have highly elevated blood sugars of 600. Patient was only discharged on 15 units of Lantus light during her last discharge in month of February by me that patient as per the documentation appears to be on a short-acting insulin 70 units twice a day. Patient blood sugars are presently 300. Did not receive any long-acting insulin last night because of this confusion with insulin I'm starting him on on 30 units of Lantus with the 10 units with each meal along with sliding scale. Patient is comparing of mild headache. Patient is a poor historian but able to answers questions appropriately. 05/28/2019 Patient is clinically doing well blood sugars are well controlled his creatinine improved and almost close to his baseline patient can be discharged from medical perspective but will need placement in subacute rehabilitation which need prior authorization from the insurance company. 05/29/2019 Patient blood sugars were low as today because of which he didn't receive his Levemir. I'll decrease the dose of Levemir as well as pre-meal insulin. His blood sugars are high today as he did not receive Levemir for last couple days. Patient's serum creatinine improved close to his baseline does have extensive pedal edema 05/30/2019 Patient is clinically doing well will be discharged today to home with home care. Patient may not qualify for subacute rehabilitation. Patient was discharged on 40 mg daily of Lasix patient does have extensive peripheral edema creatinine improved lisinopril will be held for now can be started as an outpatient if needed if his potassium is okay and kidney function continued to improve and if his blood pressure can tolerate PHYSICAL EXAMINATION: GENERAL: The patient is alert and oriented x3, and is definitely low because of the Parkinson's . HEENT: Pupils are round and equally reacting to light. EOMI. No scleral icterus. No conjunctival pallor. Normocephalic, atraumatic. No pharyngeal erythema. No thyromegaly. CARDIOVASCULAR: S1 and S2 present. No murmurs, rubs, or gallops. PULMONARY: Chest is clear to auscultation, no wheezing or crackles. ABDOMEN: Soft, nontender, nondistended, normoactive bowel sounds. No palpable organomegaly. MUSCULOSKELETAL: No joint swelling or deformity. EXTREMITIES: No cyanosis, clubbing, does have pedal edema extensive NEUROLOGICAL: Gross neurological examination did not reveal any focal deficits. SKIN: No rashes. 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 anxiety disorder Patient Condition at Discharge: Stable Plan - Discharge Summary Discharge Rx Participant: No New Discharge Prescriptions: New Amiodarone [Cordarone] 100 mg PO QAM #30 tab Insulin Detemir (Levemir) [Levemir] 20 unit SQ HS #1 syr Metoprolol Tartrate [Lopressor] 25 mg PO BID tab INSULIN ASPART (NovoLOG) [NovoLOG (formulary)] 5 unit SQ AC-TID #1 vial Continue Carbidopa-Levodopa 25-100 mg [Sinemet 25-100 mg] 2 tab PO TID Levothyroxine Sodium [Synthroid] 100 mcg PO DAILY Changed Furosemide [Lasix] 40 mg PO DAILY #0 Discontinued Amiodarone HCl 200 mg PO QAM Metoprolol Tartrate 25 mg PO BID Insulin Lispro [humaLOG Kwikpen] 75 unit SQ BID Lisinopril 40 mg PO BID Discharge Medication List Carbidopa-Levodopa 25-100 mg [Sinemet 25-100 mg] 2 tab PO TID 07/08/16 [History] Levothyroxine Sodium [Synthroid] 100 mcg PO DAILY 05/27/19 [History] Amiodarone [Cordarone] 100 mg PO QAM #30 tab 05/30/19 [Rx] Furosemide [Lasix] 40 mg PO DAILY #0 05/30/19 [Rx] INSULIN ASPART (NovoLOG) [NovoLOG (formulary)] 5 unit SQ AC-TID #1 vial 05/30/19 [Rx] Insulin Detemir (Levemir) [Levemir] 20 unit SQ HS #1 syr 05/30/19 [Rx] Metoprolol Tartrate [Lopressor] 25 mg PO BID tab 05/30/19 [Rx] Follow up Appointment(s)/Referral(s): Ovi Morgan DO [STAFF PHYSICIAN] - 1 Week [facility]Clinic [Primary Care Provider] - 3 Days Ambulatory/Diagnostic Orders: Basic Metabolic Panel [LAB.AMB] Time Frame: 3 Days, Location: None Selected Activity/Diet/Wound Care/Special Instructions: Home care to be arranged through [facility]. Discharge Disposition: TRANSFER TO SNF/ECF
== END 2019-05-30 16:01 | disposition home health service (06) | DRG 638 ==
LOC: EC 22:02 → OBSVTOIN 23:27 → 4SSUR 23:27
PROVIDERS: ADMIT Internal Medicine; ATTEND Internal Medicine
DX: E11.65 Type 2 diabetes mellitus with hyperglycemia (principal); N17.9 Acute kidney failure, unspecified; E87.1 Hypo-osmolality and hyponatremia; I13.0 Hypertensive heart and chronic kidney disease with heart failure and stage 1 through stage 4 chronic kidney disease, or unspecified chronic kidney disease; E11.649 Type 2 diabetes mellitus with hypoglycemia without coma; G20 Parkinson's disease; E86.0 Dehydration; I50.9 Heart failure, unspecified; I48.91 Unspecified atrial fibrillation; E11.22 Type 2 diabetes mellitus with diabetic chronic kidney disease; D72.829 Elevated white blood cell count, unspecified; J44.9 Chronic obstructive pulmonary disease, unspecified; E86.1 Hypovolemia; N18.3 Chronic kidney disease, stage 3 (moderate); N26.1 Atrophy of kidney (terminal); T38.3X6A Underdosing of insulin and oral hypoglycemic [antidiabetic] drugs, initial encounter; I44.0 Atrioventricular block, first degree; E03.9 Hypothyroidism, unspecified; F41.9 Anxiety disorder, unspecified; H26.9 Unspecified cataract; Z79.4 Long term (current) use of insulin; Z79.890 Hormone replacement therapy; Z79.899 Other long term (current) drug therapy; Z87.891 Personal history of nicotine dependence; Z85.51 Personal history of malignant neoplasm of bladder; Z87.01 Personal history of pneumonia (recurrent); Z86.79 Personal history of other diseases of the circulatory system; Z87.440 Personal history of urinary (tract) infections; Z90.49 Acquired absence of other specified parts of digestive tract; Z88.8 Allergy status to other drugs, medicaments and biological substances; Z98.890 Other specified postprocedural states; Y92.009 Unspecified place in unspecified non-institutional (private) residence as the place of occurrence of the external cause; Z80.3 Family history of malignant neoplasm of breast; Z82.49 Family history of ischemic heart disease and other diseases of the circulatory system; Z83.518 Family history of other specified eye disorder; Z80.8 Family history of malignant neoplasm of other organs or systems
CPT/HCPCS: 36415; 70450; 71046; 76770; 80048; 80053; 81001; 83735; 84484; 85025; 85027; 85610; 85730; 93005; 96360; 96361; 99285

== ENCOUNTER → 2019-06-08 | Outpatient (CLI) | payer OTHER, MEDICARE ==
[2019-06-08 16:17] LABS: HCT 34.9 % (39.0-53.0); HGB 11.7 gm/dL (13.0-17.5); MCH 31.1 pg (25.0-35.0); MCHC 33.5 g/dL (31.0-37.0); MCV 92.9 fL (80.0-100.0); Mean Platelet Volume 7.8; Platelet Count 215 k/uL (150-450); RBC 3.76 m/uL (4.30-5.90); RDW 13.6 % (11.5-15.5); WBC 10.3 k/uL (3.8-10.6)
[2019-06-08 16:20] LABS: Appearance,Urine Cloudy (Clear); Bacteria,Urine Rare /hpf; Bilirubin,Urine Negative (Negative); Blood,Urine Negative (Negative); Color,Urine Light Yellow; Glucose,Urine (UA) Negative (Negative); Hyaline Casts,Urine 11 /lpf (0-2); Ketones,Urine Negative (Negative); Leukocyte Esterase,Urine Large (Negative); Mucus,Urine Rare /hpf; Nitrite,Urine Negative (Negative); PH, Urine 5.5 (5.0-8.0); Protein,Urine Negative (Negative); Urobilinogen,Urine <2.0 mg/dL (<2.0); WBC,Urine 157 /hpf (0-5)
[2019-06-08 23:20] LABS: African American GFR (CKD) 38.3 (60.0-200.0); Albumin 3.5 g/dL (3.80-4.90); Albumin/Globulin Ratio 1.75 (1.60-3.17); Anion Gap 10.5 mmol/L (4.00-12.00); BUN/Creat Ratio 24.74 Ratio (12.00-20.00); Calcium 8.4 mg/dL (8.7-10.3); Carbon Dioxide 29.5 mmol/L (21.6-31.8); Iron Saturation 25.48 (15.00-50.00); Magnesium 1.3 mg/dL (1.5-2.4); Potassium 4.3 mmol/L (3.5-5.5); Total Bilirubin 0.3 mg/dL (0.3-1.2); Total Protein 5.5 g/dL (6.2-8.2); Uric Acid 7.6 mg/dL (3.7-8.7)
[2019-06-08 23:35] LABS: Vitamin D 25 Hydroxy 12.1 ng/mL (30.0-100.0)
== END | disposition home or self-care (01) ==
LOC: LABWHC1 14:31
PROVIDERS: ATTEND Internal Medicine
DX: D64.9 Anemia, unspecified (principal); N39.0 Urinary tract infection, site not specified; N25.81 Secondary hyperparathyroidism of renal origin; E55.9 Vitamin D deficiency, unspecified; M10.9 Gout, unspecified; N18.9 Chronic kidney disease, unspecified
CPT/HCPCS: 36415; 80053; 81001; 82043; 82306; 82570; 82728; 83540; 83550; 83735; 83970; 84100; 84550; 85027

== ENCOUNTER 2019-06-16 08:57 | Inpatient (IN) | payer OTHER, MEDICARE ==
[2019-06-16] MEDS ORDERED: ACETAMINOPHEN TAB 500 MG TAB PO STA (09:00)
[2019-06-16] MEDS ORDERED: SODIUM CHLORIDE 0.9% 1,000 ML IV ONE ×2 (09:15→14:11)
[2019-06-16] MEDS: SODIUM CHLORIDE 0.9% 500 ML 500 ML IV SCH ×2 (10:08→11:35)
[2019-06-16 10:14] LABS: Albumin 1.4 g/dL (3.5-5.0); Total Bilirubin 0.7 mg/dL (0.2-1.3); Total Protein 3.1 g/dL (6.3-8.2)
--- NOTE | 2019-06-16 10:19 | ED ---
General Adult HPI - General Chief complaint: Weakness Stated complaint: Weakness Time Seen by Provider: 06/16/19 09:00 Source: patient, RN notes reviewed Mode of arrival: EMS Limitations: no limitations - History of Present Illness Initial comments: This is a 79-year-old male who presents emergency Department complaining of generalized weakness started this morning. Patient states he has no pain. Patient denies any chest pain difficulty breathing or shortness of breath per patient denies any headache. Patient denies any lightheadedness dizziness or near syncopal episode. Patient denies any abdominal pain patient denies nausea vomiting diarrhea. Patient denies any dysuria hematuria urinary frequency. Patient denies any rashes lesions or ulcerations that he knows of. Patient denies any cough. Patient denies knowing of any fever. Patient states she just feels weak all over to the point he cannot walk. Patient was incontinent of stool and urine because he was too weak to make to the bathroom per EMS. - Related Data Home Medications Medication Instructions Recorded Confirmed Carbidopa-Levodopa 25-100 mg 2 tab PO TID 07/08/16 06/16/19 [Sinemet 25-100 mg] Levothyroxine Sodium [Synthroid] 100 mcg PO DAILY 05/27/19 06/16/19 Albuterol Inhaler [Ventolin Hfa 1 - 2 puff INHALATION RT-Q6H PRN 06/16/19 06/16/19 Inhaler] Amiodarone [Cordarone] 200 mg PO QAM 06/16/19 06/16/19 Furosemide [Lasix] 40 mg PO BID 06/16/19 06/16/19 Lisinopril 40 mg PO DAILY 06/16/19 06/16/19 Metoprolol Tartrate [Lopressor] 25 mg PO BID 06/16/19 06/16/19 Previous Rx's Medication Instructions Recorded INSULIN ASPART (NovoLOG) [NovoLOG 5 unit SQ AC-TID #1 vial 05/30/19 (formulary)] Insulin Detemir (Levemir) [Levemir] 20 unit SQ HS #1 syr 05/30/19 Allergies Allergy/AdvReac Type Severity Reaction Status Date / Time aspirin Allergy Swelling Verified 06/16/19 09:12 NSAIDS (Non-Steroidal Allergy Swelling Verified 06/16/19 09:12 Anti-Inflamma Review of Systems ROS Statement: Those systems with pertinent positive or pertinent negative responses have been documented in the HPI. ROS Other: All systems not noted in ROS Statement are negative. Past Medical History Past Medical History: Atrial Flutter, Cancer, Heart Failure, COPD, Diabetes Mellitus, Hypertension, Musculoskeletal Disorder, Neurologic Disorder, Thyroid Disorder Additional Past Medical History / Comment(s): PT ADMITTED ON 10/27/18 WITH BACTEREMIA D/T KLEBSIELLA PNE/TRANSAMINITIS/BILIARY SLUDGE PER US. OTHERHX: HX A-FLUTTER/TACHYCARDIA- TX W/ SAL/CARDIOVERSION, HAS BLADDER CA WITH SURGERY AND BLADDER INSTILLATION OF MED FOR BLADDER CANCER, IDC WITH UTI-REMOVED, IDDM TYPE II, BILATERAL CATARACTS, ABD HERNIA. PARKINSONS, DIVERTICULITIS, EDEMA FEET/LEGS, DDD lower spine, HYPOTHYROID, PNEUMONIA WITH SEPSIS, acute renal failure d/t acute tubular necrosis d/t sepsis, possible CKD. Last Myocardial Infarction Date:: UNK History of Any Multi-Drug Resistant Organisms: None Reported Date of last positivie culture/infection: 03/04/19 MDRO Source:: Groin Past Surgical History: Adenoidectomy, Bladder Surgery, Cholecystectomy, Tonsillectomy Additional Past Surgical History / Comment(s): 2013 CARDIOVERSION, SAL. BLADDER TUMOR REMOVED,cystoscopy with bladder CA TREATMENTS, colonoscopy Past Anesthesia/Blood Transfusion Reactions: Previous Problems w/ Anesthesia Additional Past Anesthesia/Blood Transfusion Reaction / Comment(s): HX CLAUSTROPHOBIA Past Psychological History: Anxiety Smoking Status: Former smoker Past Alcohol Use History: None Reported Past Drug Use History: None Reported - Past Family History Father Family Medical History: Cancer Additional Family Medical History / Comment(s): Bone cancer. Mother Family Medical History: Coronary Artery Disease (CAD) Additional Family Medical History / Comment(s): Macular degeneration Sister(s) Family Medical History: Cancer Additional Family Medical History / Comment(s): breast CA General Exam - General Exam Comments Initial Comments: GENERAL: Patient is well-developed and well-nourished. Patient is nontoxic and well- hydrated and is in mild distress. ENT: Neck is soft and supple. No significant lymphadenopathy is noted. Oropharynx is clear. Moist mucous membranes. Neck has full range of motion without eliciting any pain. EYES: The sclera were anicteric and conjunctiva were pink and moist. Extraocular movements were intact and pupils were equal round and reactive to light. Ey elids were unremarkable. PULMONARY: Crackles left base CARDIOVASCULAR: There is a regular rate and rhythm without any murmurs gallops or rubs. ABDOMEN: Soft and nontender with normal bowel sounds. No palpable organomegaly was noted. There is no palpable pulsatile mass. SKIN: Skin is clear with no lesions or rashes and otherwise unremarkable. NEUROLOGIC: Patient is alert and oriented x3. Cranial nerves II through XII are grossly intact. Motor and sensory are also intact. Normal speech, volume and content. Symmetrical smile. MUSCULOSKELETAL: Normal extremities with adequate strength and full range of motion. No lower extremity swelling or edema. No calf tenderness. LYMPHATICS: No significant lymphadenopathy is noted PSYCHIATRIC: Normal psychiatric evaluation. Limitations: no limitations Course Vital Signs 06/16/19 06/16/19 06/16/19 09:02 09:30 10:30 Temperature 99.2 F Pulse Rate 82 71 77 Respiratory 16 18 18 Rate Blood Pressure 88/49 96/48 103/56 O2 Sat by Pulse 93 L 96 98 Oximetry 06/16/19 06/16/19 11:30 12:01 Temperature Pulse Rate 66 66 Respiratory 18 18 Rate Blood Pressure 96/43 100/47 O2 Sat by Pulse 99 98 Oximetry Medical Decision Making - Medical Decision Making EKG shows normal sinus rhythm at 76 bpm NV interval is 206 QRS is 102 QT interval 448 QTC is 504. Patient does have a prolonged Q-wave. Patient's EKG shows no ST segment elevation. I spoke with Dr. pacheco about the patient he agreed to admit the patient admitted the patient wrote admitting orders. Patient's chest x-ray shows no acute abnormality. I gave the patient Rocephin because of the fever the high white count and potential urinary tract infection. - Lab Data Result diagrams: 06/16/19 11:10 06/16/19 11:10 Lab Results 06/16/19 06/16/19 06/16/19 Range/Units 09:50 09:50 09:50 WBC 11.6 H (3.8-10.6) k/uL RBC 2.41 L (4.30-5.90) m/uL Hgb 7.4 L D (13.0-17.5) gm/dL Hct 22.1 L (39.0-53.0) % MCV 91.8 (80.0-100.0) fL MCH 30.8 (25.0-35.0) pg MCHC 33.6 (31.0-37.0) g/dL RDW 14.0 (11.5-15.5) % Plt Count 110 L (150-450) k/uL Neutrophils % 86 % Lymphocytes % 8 % Monocytes % 4 % Eosinophils % 0 % Basophils % 0 % Neutrophils # 10.0 H (1.3-7.7) k/uL Lymphocytes # 0.9 L (1.0-4.8) k/uL Monocytes # 0.5 (0-1.0) k/uL Eosinophils # 0.1 (0-0.7) k/uL Basophils # 0.0 (0-0.2) k/uL PT (9.0-12.0) sec INR (<1.2) APTT (22.0-30.0) sec Sodium 141 (137-145) mmol/L Potassium 2.1 L* (3.5-5.1) mmol/L Chloride 120 H (98-107) mmol/L Carbon Dioxide 14 L (22-30) mmol/L Anion Gap 7 mmol/L BUN 27 H (9-20) mg/dL Creatinine 1.18 (0.66-1.25) mg/dL Est GFR (CKD-EPI)AfAm 68 (>60 ml/min/1.73 sqM) Est GFR (CKD-EPI)NonAf 59 (>60 ml/min/1.73 sqM) Glucose 151 H (74-99) mg/dL Plasma Lactic Acid Riley 2.0 (0.7-2.0) mmol/L Calcium 4.5 L* (8.4-10.2) mg/dL Total Bilirubin 0.7 (0.2-1.3) mg/dL AST 11 L (17-59) U/L ALT 12 L (21-72) U/L Alkaline Phosphatase 27 L (38-126) U/L Troponin I (0.000-0.034) ng/mL Total Protein 3.1 L (6.3-8.2) g/dL Albumin 1.4 L (3.5-5.0) g/dL Urine Color Urine Appearance (Clear) Urine pH (5.0-8.0) Ur Specific [place] (1.001-1.035) Urine Protein (Negative) Urine Glucose (UA) (Negative) Urine Ketones (Negative) Urine Blood (Negative) Urine Nitrite (Negative) Urine Bilirubin (Negative) Urine Urobilinogen (<2.0) mg/dL Ur Leukocyte Esterase (Negative) Urine RBC (0-5) /hpf Urine WBC (0-5) /hpf Urine WBC Clumps (None) /hpf Urine Bacteria (None) /hpf Hyaline Casts (0-2) /lpf Urine Mucus (None) /hpf Blood Type Blood Type Confirm Blood Type Recheck Bld Type Recheck Status Antibody Screen Spec Expiration Date 06/16/19 06/16/19 06/16/19 Range/Units 09:50 09:50 09:50 WBC (3.8-10.6) k/uL RBC (4.30-5.90) m/uL Hgb (13.0-17.5) gm/dL Hct (39.0-53.0) % MCV (80.0-100.0) fL MCH (25.0-35.0) pg MCHC (31.0-37.0) g/dL RDW (11.5-15.5) % Plt Count (150-450) k/uL Neutrophils % % Lymphocytes % % Monocytes % % Eosinophils % % Basophils % % Neutrophils # (1.3-7.7) k/uL Lymphocytes # (1.0-4.8) k/uL Monocytes # (0-1.0) k/uL Eosinophils # (0-0.7) k/uL Basophils # (0-0.2) k/uL PT 15.7 H (9.0-12.0) sec INR 1.6 H (<1.2) APTT 36.3 H (22.0-30.0) sec Sodium (137-145) mmol/L Potassium (3.5-5.1) mmol/L Chloride (98-107) mmol/L Carbon Dioxide (22-30) mmol/L Anion Gap mmol/L BUN (9-20) mg/dL Creatinine (0.66-1.25) mg/dL Est GFR (CKD-EPI)AfAm (>60 ml/min/1.73 sqM) Est GFR (CKD-EPI)NonAf (>60 ml/min/1.73 sqM) Glucose (74-99) mg/dL Plasma Lactic Acid Riley (0.7-2.0) mmol/L Calcium (8.4-10.2) mg/dL Total Bilirubin (0.2-1.3) mg/dL AST (17-59) U/L ALT (21-72) U/L Alkaline Phosphatase (38-126) U/L Troponin I <0.012 (0.000-0.034) ng/mL Total Protein (6.3-8.2) g/dL Albumin (3.5-5.0) g/dL Urine Color Yellow Urine Appearance Clear (Clear) Urine pH 5.0 (5.0-8.0) Ur Specific [place] 1.013 (1.001-1.035) Urine Protein Trace H (Negative) Urine Glucose (UA) Negative (Negative) Urine Ketones Negative (Negative) Urine Blood Negative (Negative) Urine Nitrite Negative (Negative) Urine Bilirubin Negative (Negative) Urine Urobilinogen <2.0 (<2.0) mg/dL Ur Leukocyte Esterase Moderate H (Negative) Urine RBC 1 (0-5) /hpf Urine WBC 10 H (0-5) /hpf Urine WBC Clumps Rare H (None) /hpf Urine Bacteria Occasional H (None) /hpf Hyaline Casts 3 H (0-2) /lpf Urine Mucus Rare H (None) /hpf Blood Type Blood Type Confirm Blood Type Recheck Bld Type Recheck Status Antibody Screen Spec Expiration Date 06/16/19 06/16/19 06/16/19 Range/Units 09:50 11:10 11:10 WBC 19.2 H (3.8-10.6) k/uL RBC 3.60 L (4.30-5.90) m/uL Hgb 11.0 L D (13.0-17.5) gm/dL Hct 33.0 L (39.0-53.0) % MCV 91.7 (80.0-100.0) fL MCH 30.6 (25.0-35.0) pg MCHC 33.4 (31.0-37.0) g/dL RDW 14.6 (11.5-15.5) % Plt Count 157 (150-450) k/uL Neutrophils % 85 % Lymphocytes % 10 % Monocytes % 4 % Eosinophils % 0 % Basophils % 0 % Neutrophils # 16.3 H (1.3-7.7) k/uL Lymphocytes # 1.8 (1.0-4.8) k/uL Monocytes # 0.8 (0-1.0) k/uL Eosinophils # 0.0 (0-0.7) k/uL Basophils # 0.0 (0-0.2) k/uL PT (9.0-12.0) sec INR (<1.2) APTT (22.0-30.0) sec Sodium (137-145) mmol/L Potassium (3.5-5.1) mmol/L Chloride (98-107) mmol/L Carbon Dioxide (22-30) mmol/L Anion Gap mmol/L BUN (9-20) mg/dL Creatinine (0.66-1.25) mg/dL Est GFR (CKD-EPI)AfAm (>60 ml/min/1.73 sqM) Est GFR (CKD-EPI)NonAf (>60 ml/min/1.73 sqM) Glucose (74-99) mg/dL Plasma Lactic Acid Riley (0.7-2.0) mmol/L Calcium (8.4-10.2) mg/dL Total Bilirubin (0.2-1.3) mg/dL AST (17-59) U/L ALT (21-72) U/L Alkaline Phosphatase (38-126) U/L Troponin I (0.000-0.034) ng/mL Total Protein (6.3-8.2) g/dL Albumin (3.5-5.0) g/dL Urine Color Urine Appearance (Clear) Urine pH (5.0-8.0) Ur Specific [place] (1.001-1.035) Urine Protein (Negative) Urine Glucose (UA) (Negative) Urine Ketones (Negative) Urine Blood (Negative) Urine Nitrite (Negative) Urine Bilirubin (Negative) Urine Urobilinogen (<2.0) mg/dL Ur Leukocyte Esterase (Negative) Urine RBC (0-5) /hpf Urine WBC (0-5) /hpf Urine WBC Clumps (None) /hpf Urine Bacteria (None) /hpf Hyaline Casts (0-2) /lpf Urine Mucus (None) /hpf Blood Type A Positive Blood Type Confirm A Positive Blood Type Recheck No Previous Record Bld Type Recheck Status CABO Indicated Antibody Screen NEGATIVE Spec Expiration Date 06/19/2019 - 230906/16/19 Range/Units 11:10 WBC (3.8-10.6) k/uL RBC (4.30-5.90) m/uL Hgb (13.0-17.5) gm/dL Hct (39.0-53.0) % MCV (80.0-100.0) fL MCH (25.0-35.0) pg MCHC (31.0-37.0) g/dL RDW (11.5-15.5) % Plt Count (150-450) k/uL Neutrophils % % Lymphocytes % % Monocytes % % Eosinophils % % Basophils % % Neutrophils # (1.3-7.7) k/uL Lymphocytes # (1.0-4.8) k/uL Monocytes # (0-1.0) k/uL Eosinophils # (0-0.7) k/uL Basophils # (0-0.2) k/uL PT (9.0-12.0) sec INR (<1.2) APTT (22.0-30.0) sec Sodium 137 (137-145) mmol/L Potassium 4.0 (3.5-5.1) mmol/L Chloride 104 (98-107) mmol/L Carbon Dioxide 22 (22-30) mmol/L Anion Gap 11 mmol/L BUN 44 H (9-20) mg/dL Creatinine 2.03 H (0.66-1.25) mg/dL Est GFR (CKD-EPI)AfAm 35 (>60 ml/min/1.73 sqM) Est GFR (CKD-EPI)NonAf 31 (>60 ml/min/1.73 sqM) Glucose 231 H (74-99) mg/dL Plasma Lactic Acid Riley (0.7-2.0) mmol/L Calcium 7.6 L (8.4-10.2) mg/dL Total Bilirubin 1.0 (0.2-1.3) mg/dL AST 17 (17-59) U/L ALT 15 L (21-72) U/L Alkaline Phosphatase 54 (38-126) U/L Troponin I (0.000-0.034) ng/mL Total Protein 4.9 L (6.3-8.2) g/dL Albumin 2.4 L (3.5-5.0) g/dL Urine Color Urine Appearance (Clear) Urine pH (5.0-8.0) Ur Specific [place] (1.001-1.035) Urine Protein (Negative) Urine Glucose (UA) (Negative) Urine Ketones (Negative) Urine Blood (Negative) Urine Nitrite (Negative) Urine Bilirubin (Negative) Urine Urobilinogen (<2.0) mg/dL Ur Leukocyte Esterase (Negative) Urine RBC (0-5) /hpf Urine WBC (0-5) /hpf Urine WBC Clumps (None) /hpf Urine Bacteria (None) /hpf Hyaline Casts (0-2) /lpf Urine Mucus (None) /hpf Blood Type Blood Type Confirm Blood Type Recheck Bld Type Recheck Status Antibody Screen Spec Expiration Date Disposition Clinical Impression: Generalized weakness, Urinary tract infection, Sepsis Disposition: ADMITTED IP TO THIS HOSP Referrals: [facility]inic [Primary Care Provider] - 1-2 days
[2019-06-16 10:20] LABS: Appearance,Urine Clear (Clear); Bacteria,Urine Occasional /hpf; Bilirubin,Urine Negative (Negative); Blood,Urine Negative (Negative); Color,Urine Yellow; Glucose,Urine (UA) Negative (Negative); Hyaline Casts,Urine 3 /lpf (0-2); Ketones,Urine Negative (Negative); Leukocyte Esterase,Urine Moderate (Negative); Mucus,Urine Rare /hpf; Nitrite,Urine Negative (Negative); Protein,Urine Trace (Negative); RBC,Urine 1 /hpf (0-5); Specific Gravity,Urine 1.013 (1.001-1.035); Urobilinogen,Urine <2.0 mg/dL (<2.0); WBC,Urine 10 /hpf (0-5)
[2019-06-16 10:23] LABS: INR 1.6 (<1.2); Partial Thromboplastin Time 36.3 sec (22.0-30.0); Prothrombin Time 15.7 sec (9.0-12.0)
[2019-06-16 10:33] LABS: Basophils % (A) 0 %; Eosinophils # (A) 0.1 k/uL (0-0.7); Eosinophils % (A) 0 %; HCT 22.1 % (39.0-53.0); Lymphocytes # (A) 0.9 k/uL (1.0-4.8); Lymphocytes % (A) 8 %; MCH 30.8 pg (25.0-35.0); MCHC 33.6 g/dL (31.0-37.0); MCV 91.8 fL (80.0-100.0); Mean Platelet Volume 8.6; Monocytes # (A) 0.5 k/uL (0-1.0); Monocytes % (A) 4 %; Neutrophils % (A) 86 %; Platelet Count 110 k/uL (150-450); RBC 2.41 m/uL (4.30-5.90); WBC 11.6 k/uL (3.8-10.6)
--- NOTE | 2019-06-16 10:35 | XR ---
EXAMINATION TYPE: XR chest 2V DATE OF EXAM: 06/16/2019 COMPARISON: 05/26/2019 HISTORY: Fever TECHNIQUE: Frontal and lateral views of the chest are obtained. FINDINGS: Focal airspace disease is seen at the left lung base. Remainder the lungs are well aerated . The cardiac silhouette size is mildly enlarged. The osseous structures are intact. Degenerative c hanges are seen of the thoracic spine and right shoulder IMPRESSION: New left basilar airspace disease most likely represents unifocal pneumonia.
[2019-06-16 10:36] LABS: Calcium 4.5 mg/dL (8.4-10.2); HGB 7.4 gm/dL (13.0-17.5); Potassium 2.1 mmol/L (3.5-5.1)
[2019-06-16 11:41] LABS: Albumin 2.4 g/dL (3.5-5.0); Calcium 7.6 mg/dL (8.4-10.2); Total Protein 4.9 g/dL (6.3-8.2)
[2019-06-16 11:45] LABS: Basophils % (A) 0 %; Eosinophils % (A) 0 %; Lymphocytes # (A) 1.8 k/uL (1.0-4.8); Lymphocytes % (A) 10 %; MCH 30.6 pg (25.0-35.0); MCHC 33.4 g/dL (31.0-37.0); MCV 91.7 fL (80.0-100.0); Mean Platelet Volume 8.5; Monocytes # (A) 0.8 k/uL (0-1.0); Monocytes % (A) 4 %; Neutrophils # (A) 16.3 k/uL (1.3-7.7); Neutrophils % (A) 85 %; Platelet Count 157 k/uL (150-450); RDW 14.6 % (11.5-15.5); WBC 19.2 k/uL (3.8-10.6)
[2019-06-16] MEDS ORDERED: SODIUM CHLORIDE 0.9% 500 ML 500 ML IV ONE (13:04)
[2019-06-16] MEDS ORDERED: ACETAMINOPHEN TAB 325 MG TAB PO PRN (14:13)
[2019-06-16] MEDS ORDERED: ALBUTEROL NEBULIZED 2.5 MG/3 ML INHALATION PRN (15:05)
[2019-06-16] MEDS ORDERED: HYDROmorphone 0.5 MG/0.5 ML SYRINGE IVP PRN (15:07)
[2019-06-16] MEDS ORDERED: ALPRAZolam 0.25 MG TAB PO PRN (15:07)
[2019-06-16] MEDS ORDERED: HYDROcodone/APAP 5-325MG 1 EACH TAB PO PRN (15:07)
[2019-06-16] MEDS ORDERED: AMIODARONE 200 MG TAB PO STA (17:02)
[2019-06-16 17:19] LABS: Glucose,Whole Blood 192 mg/dL (75-99)
[2019-06-16] MEDS: CARBIDOPA-LEVODOPA 25-100 MG 1 EACH TAB PO SCH ×2 (17:22→21:17)
[2019-06-16] MEDS: INSULIN ASPART (NovoLOG) 100 UNIT/ML VIAL SQ SCH ×3 (17:22→21:17)
[2019-06-16 17:40] VITALS: BMI 31.5
[2019-06-16] MEDS: FUROSEMIDE 40 MG TAB PO SCH (21:08)
[2019-06-16] MEDS: METOPROLOL TARTRATE 25 MG TAB PO SCH (21:14)
[2019-06-16] MEDS: HEPARIN SODIUM,PORCINE 5,000 UNIT/ML 1 ML VIAL SQ SCH (21:16)
[2019-06-16] MEDS: INSULIN DETEMIR (LEVEMIR) 100 UNIT/ML SYR SQ SCH (21:17)
[2019-06-16 21:28] LABS: Glucose,Whole Blood 204 mg/dL (75-99)
--- NOTE | 2019-06-17 01:26 | HP ---
HISTORY AND PHYSICAL DATE OF SERVICE: 06/16/2019 CHIEF COMPLAINT: Weakness. HISTORY OF PRESENT ILLNESS: This 79-year-old gentleman with a past medical history of multiple medical problems including history of atrial flutter, history of CHF, COPD, diabetes, hypertension, musculoskeletal disorder, history of adenoidectomy, bladder surgery, history of anxiety, being followed by [facility], was recently admitted to [facility] with features of diabetes type 2, hypoglycemia, hypovolemic hyponatremia, generalized weakness and Parkinson disease. Currently the patient is complaining of weakness and numbness of the both lower legs and the patient apparently also had UTI present on admission and the patient admitted for further evaluation and treatment. Initial labs are apparently diluted and repeat labs showed creatinine 2.03 and calcium 7.6 at this time. There is no history of any fever, rigors or chills. No history of headache, loss of consciousness or seizures at this time. PAST MEDICAL HISTORY: History of atrial flutter, history of CHF history of COPD, diabetes, history of hypertension, history of Parkinson disease, hypothyroidism, history of anxiety. MEDICATIONS: Prior to admission: Home medications are Lopressor 25 mg p.o. b.i.d., lisinopril 40 mg. 1. Synthroid 100 mcg p.o. 2. 20 units subcu q.h.s. and q.h.s. 3. NovoLog 5 units a.c. t.i.d. 4. Lasix 40 mg p.o. b.i.d. 5. Sinemet 10/100 1 p.o. t.i.d. 6. Cordarone 200 mg q.a.m. 7. Ventolin HFA 1-2 puffs q.6h p.r.n. ALLERGIES: Aspirin NSAIDs. FAMILY HISTORY: History of bone cancer in the family. SOCIAL HISTORY: Previous history of smoking. No history of current smoking, alcohol intake. REVIEW OF SYSTEMS: ENT diminished vision. No diminished hearing. CARDIOVASCULAR system: No angina or palpitations. RESPIRATION: No cough or hemoptysis. GI: notrf mentioned earlier. NERVOUS SYSTEMS: No numbness or weakness. ALLERGIES: No asthma or hayfever. MUSCULOSKELETAL as mentioned earlier. HEMATOLOGY/ONCOLOGY: No history of anemia. ENDOCRINE: Diabetes. CONSTITUTIONAL: As mentioned earlier. DERMATOLOGY: Negative. RHEUMATOLOGY negative. PSYCHIATRY as mentioned. PHYSICAL EXAMINATION: Alert and oriented x2. Pulse 74. Blood pressure 94/55, respirations 16, temperature is 98.4, pulse ox 97% on 2 L. HEENT: Conjunctivae normal. NECK: No JVD. CARDIOVASCULAR: S1, S2 muffled RESPIRATORY: Breath sounds diminished in the bases. A few scattered rhonchi and crackles. ABDOMEN: Soft, nontender. LEGS: No edema. No swelling. NERVOUS SYSTEM: Higher functions after mentioned earlier. Moves all 4 limbs. Diffusely weak. Tone: Increased tremors are present. LABS: WBC 19.2, hemoglobin 11. Sodium 137, potassium 4, creatinine is 2.03. ASSESSMENT: 1. Generalized weakness with possible acute urinary tract infection with sepsis present on admission. 2. Gait dysfunction. 3. Parkinson's, acute exacerbation. 4. Anemia, normocytic anemia of chronic disease. 5. Increased creatinine, possibly secondary to chronic kidney stage III. 6. Hypocalcemia. 7. Acute urinary tract infection present on admission. 8. History atrial flutter. 9. History of congestive heart failure with chronic diastolic dysfunction, ejection fraction 50-60 percent. 10.History of chronic obstructive pulmonary disease. 11.Diabetes mellitus type 2. 12.Hypertension. 13.History of degenerative joint disease. 14.History of adenoidectomy, bladder surgery. 15.History of anxiety. 16.Remote history of nicotine dependence. 17.Obesity body mass of 35.6. 18.FULL CODE. RECOMMENDATIONS AND DISCUSSION: In this 79-year-old gentleman who presented with multiple complex medical issues, we will monitor the patient closely. Continue the current management. We will initiate broad-spectrum IV antibiotics. Obtain cultures for UTI. I would also recommend evaluation. Resume the home medications. Possible ECF rehab. Otherwise I would resume the home medications. See orders for details. DVT prophylaxis. The prognosis guarded because of multiple complex medical issues. Further recommendations to follow. A copy of dictation being forwarded to Dr. Issa and [facility]. NICOLE / KIRTIN: [id number] / SAM
[2019-06-17] MEDS: LEVOTHYROXINE 100 MCG TAB PO SCH (05:36)
[2019-06-17 06:56] LABS: Glucose,Whole Blood 50 mg/dL (75-99)
[2019-06-17] MEDS: INSULIN ASPART (NovoLOG) 100 UNIT/ML VIAL SQ SCH ×7 (07:46→20:40)
[2019-06-17] MEDS: METOPROLOL TARTRATE 25 MG TAB PO SCH ×2 (08:21→20:40)
[2019-06-17] MEDS: FUROSEMIDE 40 MG TAB PO SCH ×2 (08:21→20:41)
[2019-06-17 08:22] LABS: Glucose,Whole Blood 94 mg/dL (75-99)
[2019-06-17] MEDS: PANTOPRAZOLE 40 MG TABLET PO SCH (08:22)
[2019-06-17] MEDS: AMIODARONE 200 MG TAB PO SCH (08:22)
[2019-06-17] MEDS: CARBIDOPA-LEVODOPA 25-100 MG 1 EACH TAB PO SCH ×3 (08:22→20:40)
[2019-06-17] MEDS: HEPARIN SODIUM,PORCINE 5,000 UNIT/ML 1 ML VIAL SQ SCH ×2 (08:22→20:41)
[2019-06-17 08:32] LABS: Calcium 7.7 mg/dL (8.4-10.2); Potassium 3.4 mmol/L (3.5-5.1)
[2019-06-17 09:38] LABS: Basophils # (A) 0.1 k/uL (0-0.2); Basophils % (A) 1 %; Eosinophils # (A) 0.1 k/uL (0-0.7); Eosinophils % (A) 1 %; HCT 33.7 % (39.0-53.0); HGB 11.2 gm/dL (13.0-17.5); Lymphocytes # (A) 2.5 k/uL (1.0-4.8); Lymphocytes % (A) 16 %; MCH 30.5 pg (25.0-35.0); MCHC 33.2 g/dL (31.0-37.0); MCV 91.8 fL (80.0-100.0); Mean Platelet Volume 8.7; Monocytes # (A) 0.7 k/uL (0-1.0); Monocytes % (A) 4 %; Neutrophils % (A) 77 %; Platelet Count 164 k/uL (150-450); RBC 3.67 m/uL (4.30-5.90); RDW 13.7 % (11.5-15.5); WBC 15.6 k/uL (3.8-10.6)
[2019-06-17 11:18] LABS: Glucose,Whole Blood 118 mg/dL (75-99)
[2019-06-17] MEDS: LISINOPRIL 20 MG TAB PO SCH (12:48)
[2019-06-17 17:03] LABS: Glucose,Whole Blood 98 mg/dL (75-99)
[2019-06-17] MEDS ORDERED: Potassium Replacement Protocol 1 EACH MISC MISCELLANE PRN (19:43)
[2019-06-17 20:19] LABS: Glucose,Whole Blood 172 mg/dL (75-99)
[2019-06-17] MEDS: POTASSIUM CHLORIDE ER 20 MEQ TAB.ER PO SCH ×2 (20:40→21:45)
[2019-06-17] MEDS: INSULIN DETEMIR (LEVEMIR) 100 UNIT/ML SYR SQ SCH (20:42)
--- NOTE | 2019-06-17 22:00 | PN ---
PROGRESS NOTE DATE OF SERVICE: 06/17/2019 This 79-year-old gentleman who has multiple medical problems was admitted with weakness. The patient has been treated for UTI. Patient also has significant Parkinson's. The patient is apparently seeing [place] doctors, but not a [place] neurologist yet. The patient has more shaking tremors. The patient's medications were adjusted at this time. Past medical history reviewed. REVIEW OF SYSTEMS: CARDIOVASCULAR SYSTEM: No angina, palpitations. RESPIRATORY SYSTEM: As mentioned earlier. GI: As mentioned earlier. NERVOUS SYSTEM: As mentioned earlier. CURRENT MEDICATIONS: Reviewed. They include: 1. Tylenol 650 q.4 p.r.n. 2. [place] 5 mg q.6 p.r.n. 3. Ventolin 2.5. 4. Xanax 0.25 t.i.d. 5. Cordarone 200 mg each morning. 6. Sinemet 25/100 one p.o. t.i.d. 7. Rocephin 1 gram daily. 8. Lasix 40 mg p.o. b.i.d. 9. Heparin 5000 units subcutaneously b.i.d. 10.Dilaudid p.r.n. 11.NovoLog. 12.Levemir 20 units subcutaneously at bedtime. 13.Synthroid 100 mcg p.o. daily. 14.Zestril 40 mg daily. 15.Lopressor 25 mg b.i.d. 16.Protonix 40 mg daily. PHYSICAL EXAMINATION: Patient is alert, oriented x2. Patient is dysarthric. Pulse is 50, blood pressure 114/68, respiration 18, temperature 98.1, pulse ox 97% on room air. HEENT: Conjunctivae normal. Oral mucosa moist. NECK: No jugular venous distention. No carotid bruit. No lymph node enlargement. CARDIOVASCULAR SYSTEM: S1, S2 muffled. No S3. No S4. RESPIRATORY SYSTEM: Breath sounds diminished at the bases. A few scattered rhonchi and crackles. ABDOMEN: Soft, non-tender. No mass palpable. LEGS: No edema. No swelling. NERVOUS SYSTEM: Higher functions as mentioned earlier. Moves all 4 limbs. No focal motor or sensory deficit. LYMPHATICS: No lymph node palpable in neck, axillae or groin. SKIN: No ulcer, rash, bleeding. JOINTS: No active deforming arthropathy. LABS: WBC 15.6, hemoglobin 11.2. Sodium 139, potassium 3.4, creatinine 1.82. ASSESSMENT: 1. Generalized weakness with possible acute urinary tract infection with sepsis, present on admission. 2. Gait dysfunction. 3. Parkinson's with acute exacerbation. 4. Anemia, normocytic; anemia of chronic disease. 5. Increased creatinine, possibly secondary to chronic kidney disease, stage III. 6. Hypocalcemia. 7. Acute urinary tract infection, present on admission. 8. History of atrial flutter. 9. History of congestive heart failure with chronic diastolic dysfunction, ejection fraction 50% to 60%. 10.History of chronic obstructive pulmonary disease. 11.Diabetes mellitus, type 2. 12.Hypertension. 13.History of degenerative joint disease. 14.History of adenoidectomy. 15.Bladder surgery. 16.History of anxiety. 17.Remote history of nicotine dependence. 18.Obesity with body mass index of 35.6. 19.FULL CODE. RECOMMENDATIONS AND DISCUSSION: In this 79-year-old gentleman who presented with multiple complex medical issues, we will monitor the patient closely, continue the current medications, continue with symptomatic treatment. I recommend continuing with IV fluids. Creatinine is 1.2, slightly better. Continue with the antibiotics. Cultures are negative so far. Otherwise, I would also recommend PT/OT evaluation. I would also recommend that the patient [facility] or as an outpatient. Otherwise, continue the rest of the medications. Discussed with the patient. Discussed with his . Further recommendations to follow. Guarded prognosis. MMEROSL / KIRTIN: [id number] /
[2019-06-18] MEDS: LEVOTHYROXINE 100 MCG TAB PO SCH (05:50)
[2019-06-18 07:31] LABS: Glucose,Whole Blood 126 mg/dL (75-99)
[2019-06-18] MEDS: INSULIN ASPART (NovoLOG) 100 UNIT/ML VIAL SQ SCH ×7 (07:58→21:23)
[2019-06-18] MEDS: LISINOPRIL 20 MG TAB PO SCH (08:03)
[2019-06-18] MEDS: FUROSEMIDE 40 MG TAB PO SCH ×2 (08:03→21:22)
[2019-06-18] MEDS: PANTOPRAZOLE 40 MG TABLET PO SCH (08:03)
[2019-06-18] MEDS: AMIODARONE 200 MG TAB PO SCH (08:03)
[2019-06-18] MEDS: METOPROLOL TARTRATE 25 MG TAB PO SCH ×2 (08:03→21:22)
[2019-06-18] MEDS: CARBIDOPA-LEVODOPA 25-100 MG 1 EACH TAB PO SCH ×3 (08:03→21:22)
[2019-06-18] MEDS: HEPARIN SODIUM,PORCINE 5,000 UNIT/ML 1 ML VIAL SQ SCH ×2 (08:04→21:22)
[2019-06-18 08:08] LABS: Calcium 7.9 mg/dL (8.4-10.2); Potassium 4.3 mmol/L (3.5-5.1)
[2019-06-18 08:21] LABS: Basophils % (A) 1 %; Eosinophils # (A) 0.1 k/uL (0-0.7); Eosinophils % (A) 2 %; HCT 34.6 % (39.0-53.0); HGB 11.3 gm/dL (13.0-17.5); Lymphocytes # (A) 1.6 k/uL (1.0-4.8); Lymphocytes % (A) 20 %; MCH 29.8 pg (25.0-35.0); MCHC 32.8 g/dL (31.0-37.0); MCV 90.8 fL (80.0-100.0); Mean Platelet Volume 8.2; Monocytes # (A) 0.5 k/uL (0-1.0); Monocytes % (A) 6 %; Neutrophils # (A) 5.7 k/uL (1.3-7.7); Neutrophils % (A) 70 %; Platelet Count 159 k/uL (150-450); RBC 3.81 m/uL (4.30-5.90); RDW 13.5 % (11.5-15.5); WBC 8.1 k/uL (3.8-10.6)
[2019-06-18 12:06] LABS: Glucose,Whole Blood 225 mg/dL (75-99)
[2019-06-18 17:02] LABS: Glucose,Whole Blood 166 mg/dL (75-99)
--- NOTE | 2019-06-18 19:04 | PN ---
PROGRESS NOTE DATE OF SERVICE: 06/18/2019 This 79-year-old gentleman who was admitted with generalized weakness and possible acute urinary tract infection with sepsis is being closely monitored at this time. The patient still has significant Parkinson's tremors also. The patient is slated to have an appointment with [facility]. No chest pain. No palpitations. No fever. EXAM: Alert and oriented x2. Dysarthric. Pulse 53. Blood pressure 120/77. Respirations 15, temperature 98.1, pulse ox 98% on room air. HEENT: Conjunctivae normal. NECK: No JVD. CARDIOVASCULAR: S1, S2 muffled. Respirations: Breath sounds diminished in the bases. A few rhonchi. No crackles. Abdomen is soft, nontender. Legs are no edema. No swelling. Central nervous system: Parkinson's with increased tremors, left more than the right. LABS: WBC 8.2, hemoglobin 11.2. Creatinine is 1.53. ASSESSMENT: 1. Generalized weakness, possible acute urinary tract infection with sepsis present on admission. Cultures negative so far. 2. Gait dysfunction. 3. Parkinson's with acute exacerbation. 4. Anemia, normocytic anemia of chronic disease. 5. Increased creatinine, possibly secondary to chronic kidney stage III. 6. Hypocalcemia. 7. Acute urinary tract infection, present on admission. 8. History of atrial flutter. 9. History of congestive heart failure with chronic diastolic dysfunction, ejection fraction 50 to 60%. 10.History of chronic obstructive pulmonary disease. 11.Diabetes mellitus type 2. 12.Hypertension. 13.History of degenerative joint disease. 14.History of adenoidectomy. 15.History of bladder surgery. 16.History of anxiety. 17.Remote history of nicotine dependence. 18.Obesity with body mass index of 34.6. 19.FULL CODE. RECOMMENDATIONS AND DISCUSSION: I recommend to continue current medications, monitoring, management and symptomatic treatment. Otherwise, at this time I recommend continue with current medications. Continue the antibiotics. Repeat labs. PT, OT evaluation. Increase ambulation. Otherwise PT/OT evaluation and the patient is deemed safe to be discharged home once the patient is stable. MMODL / IJN: [id number] /
[2019-06-18 21:00] LABS: Glucose,Whole Blood 128 mg/dL (75-99)
[2019-06-18] MEDS: INSULIN DETEMIR (LEVEMIR) 100 UNIT/ML SYR SQ SCH (21:23)
[2019-06-19] MEDS: LEVOTHYROXINE 100 MCG TAB PO SCH (05:43)
[2019-06-19 07:27] LABS: Glucose,Whole Blood 148 mg/dL (75-99)
[2019-06-19] MEDS: CARBIDOPA-LEVODOPA 25-100 MG 1 EACH TAB PO SCH ×3 (07:45→21:21)
[2019-06-19] MEDS: FUROSEMIDE 40 MG TAB PO SCH ×2 (07:45→21:19)
[2019-06-19] MEDS: PANTOPRAZOLE 40 MG TABLET PO SCH (07:45)
[2019-06-19] MEDS: METOPROLOL TARTRATE 25 MG TAB PO SCH ×2 (07:45→21:21)
[2019-06-19] MEDS: AMIODARONE 200 MG TAB PO SCH (07:45)
[2019-06-19] MEDS: HEPARIN SODIUM,PORCINE 5,000 UNIT/ML 1 ML VIAL SQ SCH ×2 (07:46→21:21)
[2019-06-19] MEDS: LISINOPRIL 20 MG TAB PO SCH (07:46)
[2019-06-19] MEDS: INSULIN ASPART (NovoLOG) 100 UNIT/ML VIAL SQ SCH ×7 (07:47→21:20)
[2019-06-19 08:11] LABS: Basophils % (A) 0 %; Eosinophils # (A) 0.2 k/uL (0-0.7); Eosinophils % (A) 3 %; HCT 32.8 % (39.0-53.0); Lymphocytes % (A) 29 %; MCH 30.5 pg (25.0-35.0); MCHC 33.5 g/dL (31.0-37.0); MCV 91.3 fL (80.0-100.0); Mean Platelet Volume 8.5; Monocytes # (A) 0.4 k/uL (0-1.0); Monocytes % (A) 6 %; Neutrophils # (A) 4.2 k/uL (1.3-7.7); Neutrophils % (A) 60 %; Platelet Count 190 k/uL (150-450); RBC 3.59 m/uL (4.30-5.90); RDW 14.6 % (11.5-15.5); WBC 6.9 k/uL (3.8-10.6)
[2019-06-19 08:32] LABS: Potassium 3.8 mmol/L (3.5-5.1)
[2019-06-19 11:58] LABS: Glucose,Whole Blood 142 mg/dL (75-99)
[2019-06-19] MEDS ORDERED: DOCUSATE 100 MG CAP PO PRN (16:00)
[2019-06-19 16:51] LABS: Glucose,Whole Blood 127 mg/dL (75-99)
--- NOTE | 2019-06-19 19:50 | PN ---
PROGRESS NOTE DATE OF SERVICE: 06/19/2019 This 79-year-old gentleman who was admitted with generalized weakness with possible acute UTI and sepsis is improving significantly. No chest pain. No palpitations. Patient still has some unsteadiness of gait and shaking secondary from Parkinson's. Also, left more than the right. No chest pain. No palpitation. EXAM: Alert and oriented x2. Pulse 62, blood pressure 104/65, respiration 16, temperature 98 degrees, pulse ox 97% on room air. HEENT: Conjunctivae normal. Oral mucosa moist. NECK: No jugular venous distention. No lymph node enlargement. CARDIOVASCULAR: S1, S2. RESPIRATORY: Diminished breath sounds at the bases. No rhonchi, no crackles. ABDOMEN: Soft, nontender. NERVOUS SYSTEM: Diffusely weak. Parkinson's tremors. LABS: WBC 6.2, hemoglobin 11, creatinine 1.58. Microbiology negative. ASSESSMENT: 1. Generalized weakness, possible acute urinary tract infection with sepsis present on admission. Cultures are negative so far. 2. Gait dysfunction. History of Parkinson's with acute exacerbation. 3. Anemia, normocytic anemia of chronic disease. 4. Increased creatinine, possibly secondary to chronic kidney disease stage III. 5. Sinus bradycardia, possibly. 6. Hypocalcemia. 7. Acute urinary tract infection present on admission. 8. History of atrial flutter. 9. History of congestive heart failure with chronic diastolic dysfunction, ejection fraction 50-60 percent. 10.History of chronic obstructive pulmonary disease. 11.Diabetes mellitus type 2. 12.Hypertension. 13.History of degenerative joint disease. 14.History of adenoidectomy. 15.History of bladder surgery. 16.History of anxiety. 17.Remote history of nicotine dependence. 18.Obesity with body mass index of 34.6. 19.FULL CODE. RECOMMENDATIONS AND SUGGESTIONS: Recommend to continue current medications, continue symptomatic treatment. Otherwise, at this time I would recommend to continue to monitor, repeat creatinine, increase ambulation and PT, OT evaluation. At this time the patient would like to return home probably in the next 24 hours. Further recommendations to follow. MMODL / IJN: [id number] /
[2019-06-19 20:31] LABS: Glucose,Whole Blood 107 mg/dL (75-99)
[2019-06-19] MEDS: INSULIN DETEMIR (LEVEMIR) 100 UNIT/ML SYR SQ SCH (21:21)
[2019-06-20] MEDS: LEVOTHYROXINE 100 MCG TAB PO SCH (06:25)
[2019-06-20 07:10] LABS: Glucose,Whole Blood 91 mg/dL (75-99)
[2019-06-20 07:21] LABS: Basophils % (A) 0 %; Eosinophils # (A) 0.2 k/uL (0-0.7); Eosinophils % (A) 2 %; HCT 33.8 % (39.0-53.0); HGB 11.4 gm/dL (13.0-17.5); Lymphocytes # (A) 2.5 k/uL (1.0-4.8); Lymphocytes % (A) 33 %; MCH 30.4 pg (25.0-35.0); MCHC 33.8 g/dL (31.0-37.0); MCV 89.9 fL (80.0-100.0); Mean Platelet Volume 7.3; Monocytes # (A) 0.5 k/uL (0-1.0); Monocytes % (A) 7 %; Neutrophils % (A) 55 %; Platelet Count 185 k/uL (150-450); RBC 3.76 m/uL (4.30-5.90); RDW 13.4 % (11.5-15.5); WBC 7.4 k/uL (3.8-10.6)
[2019-06-20 07:41] LABS: Calcium 8.5 mg/dL (8.4-10.2); Potassium 3.8 mmol/L (3.5-5.1)
[2019-06-20] MEDS: INSULIN ASPART (NovoLOG) 100 UNIT/ML VIAL SQ SCH ×4 (07:54→12:22)
[2019-06-20 09:22] VITALS: BP 154/70; PULSE 55; RESP 17; TEMP 97.2
[2019-06-20] MEDS: PANTOPRAZOLE 40 MG TABLET PO SCH (09:32)
[2019-06-20] MEDS: AMIODARONE 200 MG TAB PO SCH (09:32)
[2019-06-20] MEDS: FUROSEMIDE 40 MG TAB PO SCH (09:32)
[2019-06-20] MEDS: CARBIDOPA-LEVODOPA 25-100 MG 1 EACH TAB PO SCH ×2 (09:32→15:12)
[2019-06-20] MEDS: LISINOPRIL 20 MG TAB PO SCH (09:33)
[2019-06-20] MEDS: HEPARIN SODIUM,PORCINE 5,000 UNIT/ML 1 ML VIAL SQ SCH (09:33)
[2019-06-20] MEDS: METOPROLOL TARTRATE 25 MG TAB PO SCH (09:33)
[2019-06-20 11:57] LABS: Glucose,Whole Blood 120 mg/dL (75-99)
--- NOTE | 2019-06-20 21:46 | DS ---
DISCHARGE SUMMARY DATE OF SERVICE: 06/20/2019. FINAL DIAGNOSES: 1. Generalized weakness, possible acute urinary tract infection with sepsis present on admission. Cultures negative so far. 2. Gait dysfunction. 3. History of Parkinson's with acute exacerbation. 4. Anemia, normocytic anemia of chronic disease. 5. Increased creatinine with possibly secondary to chronic kidney stage III. 6. Sinus bradycardia, possibly improved. 7. Hypocalcemia. 8. Acute urinary tract infection present on admission. 9. History of atrial flutter. 10.History of congestive heart failure with chronic diastolic dysfunction ejection fraction 50-60 percent. 11.History of chronic obstructive pulmonary disease. 12.Diabetes mellitus type 2. 13.Hypertension. 14.History of degenerative joint disease. 15.History of adenoidectomy. 16.History of bladder surgery. 17.History of anxiety. 18.Remote history of nicotine dependence. 19.Obesity with body mass index of 34.6. 20.FULL CODE. DISCHARGE DISPOSITION: The patient will be discharged in stable condition with guarded prognosis. HISTORY OF PRESENT ILLNESS: This 79-year-old gentleman who presented with multiple medical problems. The patient had features of UTI present on admission. Patient treated with antibiotics. Patient improved significantly. Weakness also improved. Cultures are negative. PT/OT evaluated. At this time, however, the patient and family would like the patient to return home. On exam vitals signs are stable. Cardiovascular: S1, S2. Respirations: Breath sounds diminished in the bases. Abdomen soft. Nervous system: Diffuse mild diffuse weakness and significant tremors, left more than the right, present suggestive of Parkinson's. DISCHARGE ADVICE AND MEDICATIONS: 1. Diet is cardiac diet. 2. Activity limited until followup. 3. Follow up with Dr. Issa at [facility] in 2-3 days. 4. Follow up with neurologist after recommendations from [place]. DISCHARGE MEDICATIONS: 1. Cordarone 200 mg q.a.m. 2. Lasix 40 mg p.o. b.i.d. 3. Lisinopril 40 mg p.o. daily. 4. Lopressor 25 mg p.o. b.i.d. 5. carbidopa 100 p.o. 2 tablets p.o. t.i.d. 6. Synthroid 100 mcg p.o. daily. 7. Ventolin HFA 1-2 puffs q.6h p.r.n. 8. Ceftin 500 mg p.o. b.i.d. for 3 days. 9. Levemir 20 units subcu q.h.s. 10.NovoLog 5 units a.c. t.i.d. Follow up labs CBC, BMP in the outpatient setting. MMODL / IJN: [id number] / MTDD
== END 2019-06-20 15:17 | disposition home health service (06) | DRG 872 ==
LOC: EC 08:57 → 4SSUR 13:20
PROVIDERS: ADMIT Hospitalist; ATTEND Hospitalist
DX: A41.9 Sepsis, unspecified organism (principal); N39.0 Urinary tract infection, site not specified; I50.32 Chronic diastolic (congestive) heart failure; D63.8 Anemia in other chronic diseases classified elsewhere; E03.9 Hypothyroidism, unspecified; E11.9 Type 2 diabetes mellitus without complications; I13.10 Hypertensive heart and chronic kidney disease without heart failure, with stage 1 through stage 4 chronic kidney disease, or unspecified chronic kidney disease; E66.9 Obesity, unspecified; F41.9 Anxiety disorder, unspecified; M19.90 Unspecified osteoarthritis, unspecified site; N18.3 Chronic kidney disease, stage 3 (moderate); E83.51 Hypocalcemia; J44.9 Chronic obstructive pulmonary disease, unspecified; G20 Parkinson's disease; I25.2 Old myocardial infarction; Z68.35 Body mass index [BMI] 35.0-35.9, adult; Z79.4 Long term (current) use of insulin; Z79.890 Hormone replacement therapy; Z80.3 Family history of malignant neoplasm of breast; Z82.49 Family history of ischemic heart disease and other diseases of the circulatory system; Z87.891 Personal history of nicotine dependence; Z85.51 Personal history of malignant neoplasm of bladder; Z90.49 Acquired absence of other specified parts of digestive tract; Z90.89 Acquired absence of other organs; Z98.890 Other specified postprocedural states; Z79.899 Other long term (current) drug therapy; Z88.6 Allergy status to analgesic agent; Z98.42 Cataract extraction status, left eye; Z98.41 Cataract extraction status, right eye
CPT/HCPCS: 36415; 71046; 80048; 80053; 81001; 83605; 84132; 84443; 84484; 85025; 85610; 85730; 86850; 86900; 86901; 87040; 87086; 87324; 93005; 96360; 96361; 96365; 99285

== ENCOUNTER → 2019-07-12 | Outpatient (CLI) | payer OTHER, MEDICARE ==
[2019-07-12 10:23] LABS: Basophils # (A) 0.1 k/uL (0-0.2); Basophils % (A) 1 %; Eosinophils # (A) 0.2 k/uL (0-0.7); Eosinophils % (A) 2 %; HCT 35.6 % (39.0-53.0); HGB 12.1 gm/dL (13.0-17.5); Lymphocytes # (A) 2.5 k/uL (1.0-4.8); Lymphocytes % (A) 36 %; MCH 30.9 pg (25.0-35.0); MCV 90.9 fL (80.0-100.0); Mean Platelet Volume 7.2; Monocytes # (A) 0.5 k/uL (0-1.0); Monocytes % (A) 8 %; Neutrophils # (A) 3.5 k/uL (1.3-7.7); Neutrophils % (A) 51 %; Platelet Count 193 k/uL (150-450); RBC 3.92 m/uL (4.30-5.90); RDW 13.8 % (11.5-15.5)
[2019-07-12 18:05] LABS: African American GFR (CKD) 43.8 (60.0-200.0); BUN/Creat Ratio 21.18 Ratio (12.00-20.00); Calcium 8.5 mg/dL (8.7-10.3); Potassium 4.3 mmol/L (3.5-5.5)
== END | disposition home or self-care (01) ==
LOC: LABWHC1 09:42
PROVIDERS: ATTEND Registered Nurse
DX: A41.9 Sepsis, unspecified organism (principal)
CPT/HCPCS: 36415; 80048; 85025

== ENCOUNTER → 2019-07-12 | Outpatient (CLI) | payer OTHER ==
--- NOTE | 2019-07-12 10:07 | US ---
EXAMINATION TYPE: US kidneys/renal and bladder DATE OF EXAM: 07/12/2019 COMPARISON: NONE CLINICAL HISTORY: N18.9 Chronic Kidney Disease. EXAM MEASUREMENTS: Right Kidney: 10.3 x 5.3 x 4.8 cm Left Kidney: 10.6 x 6.4 x 5.4 cm Patient of large body habitus and had to sit partially upright limiting study. Right Kidney: no mass or hydro identified Left Kidney: Superior pole obscured by bowel gas Bladder: only partially distended, appears wnl as seen IMPRESSION: 1. Renal ultrasound is normal as visualized
== END | disposition home or self-care (01) ==
LOC: RADUSWWP 09:05
PROVIDERS: ATTEND Internal Medicine
DX: N18.9 Chronic kidney disease, unspecified (principal)
CPT/HCPCS: 76770

== ENCOUNTER → 2019-08-17 | Outpatient (CLI) | payer OTHER, MEDICARE ==
[2019-08-17 17:04] LABS: Basophils % (A) 0 %; Eosinophils # (A) 0.1 k/uL (0-0.7); Eosinophils % (A) 2 %; HCT 35.4 % (39.0-53.0); HGB 11.7 gm/dL (13.0-17.5); Lymphocytes # (A) 2.8 k/uL (1.0-4.8); Lymphocytes % (A) 39 %; Mean Platelet Volume 7.8; Monocytes # (A) 0.5 k/uL (0-1.0); Monocytes % (A) 7 %; Neutrophils # (A) 3.6 k/uL (1.3-7.7); Neutrophils % (A) 50 %; Platelet Count 175 k/uL (150-450); RBC 3.76 m/uL (4.30-5.90); RDW 13.7 % (11.5-15.5); WBC 7.1 k/uL (3.8-10.6)
[2019-08-17 17:11] LABS: Appearance,Urine Clear (Clear); Bilirubin,Urine Negative (Negative); Blood,Urine Negative (Negative); Color,Urine Light Yellow; Glucose,Urine (UA) Negative (Negative); Ketones,Urine Negative (Negative); Leukocyte Esterase,Urine Small (Negative); Mucus,Urine Rare /hpf; Nitrite,Urine Negative (Negative); Protein,Urine Negative (Negative); RBC,Urine <1 /hpf (0-5); Squamous Epithelial Cell,Urine <1 /hpf (0-4); Urobilinogen,Urine <2.0 mg/dL (<2.0); WBC,Urine 9 /hpf (0-5)
[2019-08-18 01:11] LABS: % Iron Saturation 29.37 (15.00-50.00); African American GFR (CKD) 47.1 (60.0-200.0); Albumin 3.8 g/dL (3.80-4.90); Albumin/Globulin Ratio 1.81 (1.60-3.17); BUN/Creat Ratio 17.5 Ratio (12.00-20.00); Calcium 8.6 mg/dL (8.7-10.3); Globulin 2.1 g/dL (1.6-3.3); Magnesium 1.5 mg/dL (1.5-2.4); Potassium 4.2 mmol/L (3.5-5.5); Total Bilirubin 0.3 mg/dL (0.3-1.2); Total Protein 5.9 g/dL (6.2-8.2); Uric Acid 5.5 mg/dL (3.7-8.7)
[2019-08-18 01:41] LABS: Ferritin 347.7 ng/mL (22.0-322.0)
== END | disposition home or self-care (01) ==
LOC: LABWHC1 16:17
PROVIDERS: ATTEND Internal Medicine
DX: D64.9 Anemia, unspecified (principal); N39.0 Urinary tract infection, site not specified; N25.81 Secondary hyperparathyroidism of renal origin; E55.9 Vitamin D deficiency, unspecified; M10.9 Gout, unspecified; N18.9 Chronic kidney disease, unspecified
CPT/HCPCS: 36415; 80053; 81001; 82728; 83540; 83550; 83735; 83970; 84100; 84550; 85025

== ENCOUNTER 2019-08-31 01:42 | Inpatient (IN) | payer OTHER, MEDICARE ==
--- NOTE | 2019-08-31 01:57 | ED ---
Weakness HPI - General Chief complaint: Weakness Stated complaint: Fall Time Seen by Provider: 08/31/19 01:51 Source: patient, EMS Mode of arrival: EMS - History of Present Illness Initial comments: Dayday is 79-year-old gentleman with a history of Parkinson's is brought to the emergency department today via EMS for evaluation of generalized weakness and concern for infection. Patient reports that he's been feeling more and more weak for the past couple of days, he states that twice today he got weak and lowered himself to the ground he didn't have any falls or syncopal episodes. This evening he became very weak and lowered himself to the ground, he was unable to get back up and EMS was contacted for a lift assist. Upon their arrival they found the patient on the ground, he appeared unwell, patient was noted be very warm to the touch with a tactile fever and tachypneic. They encouraged patient to come to the ER for further evaluation which patient was agreeable. Patient's states the patient has episodes like this when he gets pneumonia or infection. - Related Data Home Medications Medication Instructions Recorded Confirmed Carbidopa-Levodopa 25-100 mg 2 tab PO TID 07/08/16 06/16/19 [Sinemet 25-100 mg] Levothyroxine Sodium [Synthroid] 100 mcg PO DAILY 05/27/19 06/16/19 Albuterol Inhaler [Ventolin Hfa 1 - 2 puff INHALATION RT-Q6H PRN 06/16/19 06/16/19 Inhaler] Amiodarone [Cordarone] 200 mg PO QAM 06/16/19 06/16/19 Furosemide [Lasix] 40 mg PO BID 06/16/19 06/16/19 Lisinopril 40 mg PO DAILY 06/16/19 06/16/19 Metoprolol Tartrate [Lopressor] 25 mg PO BID 06/16/19 06/16/19 Previous Rx's Medication Instructions Recorded INSULIN ASPART (NovoLOG) [NovoLOG 5 unit SQ AC-TID #1 vial 05/30/19 (formulary)] Insulin Detemir (Levemir) [Levemir] 20 unit SQ HS #1 syr 05/30/19 Cefuroxime Axetil [Ceftin] 500 mg PO BID 3 Days #6 tab 06/20/19 Allergies Allergy/AdvReac Type Severity Reaction Status Date / Time aspirin Allergy Swelling Verified 06/16/19 09:12 NSAIDS (Non-Steroidal Allergy Swelling Verified 06/16/19 09:12 Anti-Inflamma Review of Systems ROS Statement: Those systems with pertinent positive or pertinent negative responses have been documented in the HPI. ROS Other: All systems not noted in ROS Statement are negative. Past Medical History Past Medical History: Atrial Flutter, Cancer, Heart Failure, COPD, Diabetes Mellitus, Hypertension, Musculoskeletal Disorder, Neurologic Disorder, Thyroid Disorder Additional Past Medical History / Comment(s): PT ADMITTED ON 10/27/18 WITH BACTEREMIA D/T KLEBSIELLA PNE/TRANSAMINITIS/BILIARY SLUDGE PER US. OTHERHX: HX A-FLUTTER/TACHYCARDIA- TX W/ SAL/CARDIOVERSION, HAS BLADDER CA WITH SURGERY AND BLADDER INSTILLATION OF MED FOR BLADDER CANCER, IDC WITH UTI-REMOVED, IDDM TYPE II, BILATERAL CATARACTS, ABD HERNIA. PARKINSONS, DIVERTICULITIS, EDEMA FEET/LEGS, DDD lower spine, HYPOTHYROID, PNEUMONIA WITH SEPSIS, acute renal failure d/t acute tubular necrosis d/t sepsis, possible CKD. Last Myocardial Infarction Date:: UNK History of Any Multi-Drug Resistant Organisms: MRSA Date of last positivie culture/infection: 03/04/19 MDRO Source:: MRSA GROIN Past Surgical History: Adenoidectomy, Bladder Surgery, Cholecystectomy, Tonsillectomy Additional Past Surgical History / Comment(s): 2013 CARDIOVERSION, SAL. BLADDER TUMOR REMOVED,cystoscopy with bladder CA TREATMENTS, colonoscopy Past Anesthesia/Blood Transfusion Reactions: Previous Problems w/ Anesthesia Additional Past Anesthesia/Blood Transfusion Reaction / Comment(s): HX CLAUSTROPHOBIA Past Psychological History: Anxiety Smoking Status: Former smoker Past Alcohol Use History: None Reported Past Drug Use History: None Reported - Past Family History Father Family Medical History: Cancer Additional Family Medical History / Comment(s): Bone cancer. Mother Family Medical History: Coronary Artery Disease (CAD) Additional Family Medical History / Comment(s): Macular degeneration Sister(s) Family Medical History: Cancer Additional Family Medical History / Comment(s): breast CA General Exam - General Exam Comments Initial Comments: Physical Exam GENERAL: ill-appearing elderly gentleman HENT: Normocephalic, Atraumatic. EYES: PERRL, EOMI PULMONARY: Tachypnea Respirations clear to auscultation bilaterally CARDIOVASCULAR: Tachycardic, regular ABDOMEN: Soft and nontender with normal bowel sounds. SKIN: Skin is clear with no lesions or rashes and otherwise unremarkable. Skin is dry : Deferred NEUROLOGIC: Resting tremor MUSCULOSKELETAL: 1+ pitting edema bilateral lower extremities PSYCHIATRIC: Normal psychiatric evaluation. Course Vital Signs 08/31/19 08/31/19 08/31/19 01:47 01:51 03:11 Temperature 99.9 F H 99 F Pulse Rate 98 87 Respiratory 20 22 18 Rate Blood Pressure 135/64 128/59 O2 Sat by Pulse 94 L 95 Oximetry EKG Findings - EKG Comments: EKG Findings:: EKG was obtained as part of the sepsis workup, EKG was obtained at 2:05 AM, rate is 92, rhythm is sinus, there is a normal axis, there are normal intervals, AK 206, curious 104, QTC 472. There are no acute ST elevations or depressions no evidence of acute ischemia or infarction. Significant tremor artifact was noted. Medical Decision Making - Medical Decision Making The patient was seen and evaluated immediately upon arrival to the emergency department, this is a 79-year-old woman with a history of Parkinson's presenting with acute generalized weakness which is consistent with previous episodes of infection. On arrival the patient is noted to have an oral temp of 99.9, patient's tachypneic with a respiratory rate of 20 and tachycardic with a heart rate in the mid 90s. Given the patient has Sirs criteria and concern for infection and sepsis workup was initiated, physical exam does reveal bilateral lower extremity edema and decision was made to hold fluid bolus. qSOFA score 0 Labs reveal leukocytosis, chronic anemia, chronic kidney disease, mild elevation of lactic acid 2.6 Urinalysis resulted with evidence of a urinary tract infection. Given the setting of Sirs criteria with the identified infection and sepsis was identified at approximately 3:10 AM and Rocephin was ordered. A recent urine culture was negative however urine culture in October was positive for Enterococcus f aecalis. Given the patient's advanced age, multiple comorbidities decision was made to admit the patient for treatment of generalized weakness urinary tract infection - Lab Data Result diagrams: 08/31/19 01:55 08/31/19 01:55 Lab Results 08/31/19 08/31/19 08/31/19 Range/Units 01:55 01:55 01:55 WBC 14.4 H (3.8-10.6) k/uL RBC 3.73 L (4.30-5.90) m/uL Hgb 12.0 L (13.0-17.5) gm/dL Hct 34.5 L (39.0-53.0) % MCV 92.6 (80.0-100.0) fL MCH 32.3 (25.0-35.0) pg MCHC 34.9 (31.0-37.0) g/dL RDW 13.3 (11.5-15.5) % Plt Count 181 (150-450) k/uL Neutrophils % 81 % Lymphocytes % 10 % Monocytes % 6 % Eosinophils % 1 % Basophils % 1 % Neutrophils # 11.7 H (1.3-7.7) k/uL Lymphocytes # 1.5 (1.0-4.8) k/uL Monocytes # 0.9 (0-1.0) k/uL Eosinophils # 0.1 (0-0.7) k/uL Basophils # 0.2 (0-0.2) k/uL PT (9.0-12.0) sec INR (<1.2) APTT (22.0-30.0) sec Sodium 137 (137-145) mmol/L Potassium 4.1 (3.5-5.1) mmol/L Chloride 101 (98-107) mmol/L Carbon Dioxide 24 (22-30) mmol/L Anion Gap 12 mmol/L BUN 36 H (9-20) mg/dL Creatinine 1.79 H (0.66-1.25) mg/dL Est GFR (CKD-EPI)AfAm 41 (>60 ml/min/1.73 sqM) Est GFR (CKD-EPI)NonAf 36 (>60 ml/min/1.73 sqM) Glucose 289 H (74-99) mg/dL POC Glucose (mg/dL) (75-99) mg/dL POC Glu Digital [employer] Associate ID Plasma Lactic Acid Riley (0.7-2.0) mmol/L Calcium 8.8 (8.4-10.2) mg/dL Total Bilirubin 0.8 (0.2-1.3) mg/dL AST 15 L (17-59) U/L ALT 21 (21-72) U/L Alkaline Phosphatase 133 H (38-126) U/L Troponin I (0.000-0.034) ng/mL Total Protein 6.2 L (6.3-8.2) g/dL Albumin 3.3 L (3.5-5.0) g/dL Urine Color Urine Appearance (Clear) Urine pH (5.0-8.0) Ur Specific [place] (1.001-1.035) Urine Protein (Negative) Urine Glucose (UA) (Negative) Urine Ketones (Negative) Urine Blood (Negative) Urine Nitrite (Negative) Urine Bilirubin (Negative) Urine Urobilinogen (<2.0) mg/dL Ur Leukocyte Esterase (Negative) Urine RBC (0-5) /hpf Urine WBC (0-5) /hpf Urine WBC Clumps (None) /hpf Ur Squamous Epith Cells (0-4) /hpf Urine Bacteria (None) /hpf Hyaline Casts (0-2) /lpf Urine Mucus (None) /hpf Urine Yeast (Budding) (None) /hpf Influenza Type A RNA Not Detected (Not Detectd) Influenza Type B (PCR) Not Detected (Not Detectd) 08/31/19 08/31/19 08/31/19 Range/Units 01:55 01:55 01:55 WBC (3.8-10.6) k/uL RBC (4.30-5.90) m/uL Hgb (13.0-17.5) gm/dL Hct (39.0-53.0) % MCV (80.0-100.0) fL MCH (25.0-35.0) pg MCHC (31.0-37.0) g/dL RDW (11.5-15.5) % Plt Count (150-450) k/uL Neutrophils % % Lymphocytes % % Monocytes % % Eosinophils % % Basophils % % Neutrophils # (1.3-7.7) k/uL Lymphocytes # (1.0-4.8) k/uL Monocytes # (0-1.0) k/uL Eosinophils # (0-0.7) k/uL Basophils # (0-0.2) k/uL PT 10.4 (9.0-12.0) sec INR 1.0 (<1.2) APTT 22.1 (22.0-30.0) sec Sodium (137-145) mmol/L Potassium (3.5-5.1) mmol/L Chloride (98-107) mmol/L Carbon Dioxide (22-30) mmol/L Anion Gap mmol/L BUN (9-20) mg/dL Creatinine (0.66-1.25) mg/dL Est GFR (CKD-EPI)AfAm (>60 ml/min/1.73 sqM) Est GFR (CKD-EPI)NonAf (>60 ml/min/1.73 sqM) Glucose (74-99) mg/dL POC Glucose (mg/dL) (75-99) mg/dL POC Glu [employer] Associate ID Plasma Lactic Acid Riley 2.6 H* (0.7-2.0) mmol/L Calcium (8.4-10.2) mg/dL Total Bilirubin (0.2-1.3) mg/dL AST (17-59) U/L ALT (21-72) U/L Alkaline Phosphatase (38-126) U/L Troponin I 0.018 (0.000-0.034) ng/mL Total Protein (6.3-8.2) g/dL Albumin (3.5-5.0) g/dL Urine Color Urine Appearance (Clear) Urine pH (5.0-8.0) Ur Specific [place] (1.001-1.035) Urine Protein (Negative) Urine Glucose (UA) (Negative) Urine Ketones (Negative) Urine Blood (Negative) Urine Nitrite (Negative) Urine Bilirubin (Negative) Urine Urobilinogen (<2.0) mg/dL Ur Leukocyte Esterase (Negative) Urine RBC (0-5) /hpf Urine WBC (0-5) /hpf Urine WBC Clumps (None) /hpf Ur Squamous Epith Cells (0-4) /hpf Urine Bacteria (None) /hpf Hyaline Casts (0-2) /lpf Urine Mucus (None) /hpf Urine Yeast (Budding) (None) /hpf Influenza Type A RNA (Not Detectd) Influenza Type B (PCR) (Not Detectd) 08/31/19 08/31/19 Range/Units 01:59 02:48 WBC (3.8-10.6) k/uL RBC (4.30-5.90) m/uL Hgb (13.0-17.5) gm/dL Hct (39.0-53.0) % MCV (80.0-100.0) fL MCH (25.0-35.0) pg MCHC (31.0-37.0) g/dL RDW (11.5-15.5) % Plt Count (150-450) k/uL Neutrophils % % Lymphocytes % % Monocytes % % Eosinophils % % Basophils % % Neutrophils # (1.3-7.7) k/uL Lymphocytes # (1.0-4.8) k/uL Monocytes # (0-1.0) k/uL Eosinophils # (0-0.7) k/uL Basophils # (0-0.2) k/uL PT (9.0-12.0) sec INR (<1.2) APTT (22.0-30.0) sec Sodium (137-145) mmol/L Potassium (3.5-5.1) mmol/L Chloride (98-107) mmol/L Carbon Dioxide (22-30) mmol/L Anion Gap mmol/L BUN (9-20) mg/dL Creatinine (0.66-1.25) mg/dL Est GFR (CKD-EPI)AfAm (>60 ml/min/1.73 sqM) Est GFR (CKD-EPI)NonAf (>60 ml/min/1.73 sqM) Glucose (74-99) mg/dL POC Glucose (mg/dL) 301 H (75-99) mg/dL POC Glu Digital Media Associate Elina Rosa Plasma Lactic Acid Riley (0.7-2.0) mmol/L Calcium (8.4-10.2) mg/dL Total Bilirubin (0.2-1.3) mg/dL AST (17-59) U/L ALT (21-72) U/L Alkaline Phosphatase (38-126) U/L Troponin I (0.000-0.034) ng/mL Total Protein (6.3-8.2) g/dL Albumin (3.5-5.0) g/dL Urine Color Yellow Urine Appearance Cloudy (Clear) Urine pH 5.5 (5.0-8.0) Ur Specific [place] 1.015 (1.001-1.035) Urine Protein 1+ H (Negative) Urine Glucose (UA) 2+ H (Negative) Urine Ketones Negative (Negative) Urine Blood Trace H (Negative) Urine Nitrite Negative (Negative) Urine Bilirubin Negative (Negative) Urine Urobilinogen <2.0 (<2.0) mg/dL Ur Leukocyte Esterase Large H (Negative) Urine RBC 2 (0-5) /hpf Urine WBC 176 H (0-5) /hpf Urine WBC Clumps Many H (None) /hpf Ur Squamous Epith Cells <1 (0-4) /hpf Urine Bacteria Rare H (None) /hpf Hyaline Casts 3 H (0-2) /lpf Urine Mucus Rare H (None) /hpf Urine Yeast (Budding) Few H (None) /hpf Influenza Type A RNA (Not Detectd) Influenza Type B (PCR) (Not Detectd) Disposition Clinical Impression: Diabetes, Urinary tract infection Disposition: ADMITTED IP TO THIS HOSP Condition: Serious
[2019-08-31 02:01] LABS: Glucose,Whole Blood 301 mg/dL (75-99)
[2019-08-31 02:18] LABS: Basophils # (A) 0.2 k/uL (0-0.2); Basophils % (A) 1 %; Eosinophils # (A) 0.1 k/uL (0-0.7); Eosinophils % (A) 1 %; HCT 34.5 % (39.0-53.0); Lymphocytes # (A) 1.5 k/uL (1.0-4.8); Lymphocytes % (A) 10 %; MCH 32.3 pg (25.0-35.0); MCHC 34.9 g/dL (31.0-37.0); MCV 92.6 fL (80.0-100.0); Mean Platelet Volume 7.6; Monocytes # (A) 0.9 k/uL (0-1.0); Monocytes % (A) 6 %; Neutrophils # (A) 11.7 k/uL (1.3-7.7); Neutrophils % (A) 81 %; Platelet Count 181 k/uL (150-450); RBC 3.73 m/uL (4.30-5.90); RDW 13.3 % (11.5-15.5); WBC 14.4 k/uL (3.8-10.6)
[2019-08-31 02:20] LABS: Partial Thromboplastin Time 22.1 sec (22.0-30.0); Prothrombin Time 10.4 sec (9.0-12.0)
[2019-08-31 02:21] LABS: Albumin 3.3 g/dL (3.5-5.0); Calcium 8.8 mg/dL (8.4-10.2); Potassium 4.1 mmol/L (3.5-5.1); Total Bilirubin 0.8 mg/dL (0.2-1.3); Total Protein 6.2 g/dL (6.3-8.2)
--- NOTE | 2019-08-31 02:31 | XR ---
EXAMINATION TYPE: XR chest 2V DATE OF EXAM: 08/31/2019 COMPARISON: 06/16/2019 HISTORY: Weakness TECHNIQUE: Frontal and lateral views of the chest are obtained. FINDINGS: Heart is normal. Lungs are clear of infiltrate. There is no heart failure. There are no hi lar masses. There are chest leads. Bony thorax is intact. IMPRESSION: No active cardiopulmonary disease. Normal heart. There is clearing of infiltrate left lo wer lobe compared to old exam.
[2019-08-31 02:57] LABS: Appearance,Urine Cloudy (Clear); Bacteria,Urine Rare /hpf; Bilirubin,Urine Negative (Negative); Blood,Urine Trace (Negative); Budding Yeast,Urine Few /hpf; Color,Urine Yellow; Glucose,Urine (UA) 2+ (Negative); Hyaline Casts,Urine 3 /lpf (0-2); Ketones,Urine Negative (Negative); Leukocyte Esterase,Urine Large (Negative); Mucus,Urine Rare /hpf; Nitrite,Urine Negative (Negative); PH, Urine 5.5 (5.0-8.0); Protein,Urine 1+ (Negative); RBC,Urine 2 /hpf (0-5); Specific Gravity,Urine 1.015 (1.001-1.035); Squamous Epithelial Cell,Urine <1 /hpf (0-4); Urobilinogen,Urine <2.0 mg/dL (<2.0); WBC,Urine 176 /hpf (0-5)
[2019-08-31] MEDS ORDERED: NALOXONE 0.4 MG/ML 1 ML VIAL IV PRN (03:13)
[2019-08-31] MEDS ORDERED: SODIUM CHLORIDE 0.9% 500 ML 500 ML IV ONE (03:54)
[2019-08-31] MEDS ORDERED: ACETAMINOPHEN TAB 325 MG TAB PO STA (03:54)
[2019-08-31] MEDS: SODIUM CHLORIDE 0.9% 1,000 ML IV SCH ×2 (05:00→13:09)
[2019-08-31] MEDS: INSULIN ASPART (NovoLOG) 100 UNIT/ML VIAL SQ SCH ×6 (07:46→21:39)
[2019-08-31] MEDS ORDERED: ALBUTEROL NEBULIZED 2.5 MG/3 ML INHALATION PRN (11:13)
[2019-08-31] MEDS ORDERED: VANCOMYCIN IV PER PHARMACY 1 EACH MISC MISCELLANE PRN (11:16)
[2019-08-31] MEDS ORDERED: VANCOMYCIN 1,750 MG in SODIUM CHLORIDE 0.9% 500 ML 500 ML IVPB ONE (11:30)
[2019-08-31 11:53] LABS: Glucose,Whole Blood 331 mg/dL (75-99)
[2019-08-31] MEDS ORDERED: AMPICILLIN-SULBACTAM 3 GM in SODIUM CHLORIDE 0.9% 100 ML IVPB SCH (12:00)
--- NOTE | 2019-08-31 14:31 | P.HPIM ---
History of Present Illness 73-year-old male came in because of possible Infection as patient felt quite weak and lethargic found to have high-grade fever found to be septic with the lactic acidosis. Patient does take Lasix at home regimen of history of conges tive heart failure. Patient does have Parkinson's and is on carbidopa levodopa for that. Patient lowered himself to Because of Generalized Weakness. Patient Chest X-Ray Did Not Show Pneumonia but Urine Is Significant Abnormality Patient Does Have History of UTI in the past Patient Has Enterococcus Which Is Resistant to Penicillin but Sensitive to Vancomycin. Patient Also Had MRSA UTI in the ca st. Urine Cultures Blood Cultures Were Obtained. Review of Systems REVIEW OF SYSTEMS: CONSTITUTIONAL: As mentioned in HPI HEENT: No recent visual problems or hearing problems. Denied any sore throat. CARDIOVASCULAR: No chest pain, orthopnea, PND, no palpitations, no syncope. PULMONARY: No shortness of breath, no cough, no hemoptysis. GASTROINTESTINAL: No diarrhea, no nausea, no vomiting, no abdominal pain. NEUROLOGICAL: No headaches, no weakness, no numbness. HEMATOLOGICAL: Denies any bleeding or petechiae. GENITOURINARY: Denies any burning micturition, frequency, or urgency. MUSCULOSKELETAL/RHEUMATOLOGICAL: Denies any joint pain, swelling, or any muscle pain. ENDOCRINE: Denies any polyuria or polydipsia. The rest of the 14-point review of systems is negative. Past Medical History Past Medical History: Atrial Flutter, Cancer, Heart Failure, COPD, Diabetes Mellitus, Hypertension, Musculoskeletal Disorder, Neurologic Disorder, Thyroid Disorder Additional Past Medical History / Comment(s): PT ADMITTED ON 10/27/18 WITH BACTEREMIA D/T KLEBSIELLA PNE/TRANSAMINITIS/BILIARY SLUDGE PER US. OTHERHX: HX A-FLUTTER/TACHYCARDIA- TX W/ SAL/CARDIOVERSION, HAS BLADDER CA WITH SURGERY AND BLADDER INSTILLATION OF MED FOR BLADDER CANCER, IDC WITH UTI-REMOVED, IDDM TYPE II, BILATERAL CATARACTS, ABD HERNIA. PARKINSONS, DIVERTICULITIS, EDEMA FEET/LEGS, DDD lower spine, HYPOTHYROID, PNEUMONIA WITH SEPSIS, acute renal failure d/t acute tubular necrosis d/t sepsis, possible CKD. Last Myocardial Infarction Date:: UNK History of Any Multi-Drug Resistant Organisms: MRSA Date of last positivie culture/infection: 03/04/19 MDRO Source:: MRSA GROIN Past Surgical History: Adenoidectomy, Bladder Surgery, Cholecystectomy, Tonsillectomy Additional Past Surgical History / Comment(s): 2014 CARDIOVERSION, SAL. BLADDER TUMOR REMOVED,cystoscopy with bladder CA TREATMENTS, colonoscopy Past Anesthesia/Blood Transfusion Reactions: Previous Problems w/ Anesthesia Additional Past Anesthesia/Blood Transfusion Reaction / Comment(s): HX CLAUSTROPHOBIA Past Psychological History: Anxiety Smoking Status: Former smoker Past Alcohol Use History: None Reported Past Drug Use History: None Reported - Past Family History Father Family Medical History: Cancer Additional Family Medical History / Comment(s): Bone cancer. Mother Family Medical History: Coronary Artery Disease (CAD) Additional Family Medical History / Comment(s): Macular degeneration Sister(s) Family Medical History: Cancer Additional Family Medical History / Comment(s): breast CA Medications and Allergies Home Medications Medication Instructions Recorded Confirmed Type Carbidopa-Levodopa 25-100 mg 2 tab PO TID 07/08/16 08/31/19 History [Sinemet 25-100 mg] Levothyroxine Sodium [Synthroid] 100 mcg PO DAILY 05/27/19 08/31/19 History INSULIN ASPART (NovoLOG) [NovoLOG 5 unit SQ AC-TID #1 vial 05/30/19 08/31/19 Rx (formulary)] Albuterol Inhaler [Ventolin Hfa 2 puff INHALATION RT-Q6H PRN 06/16/19 08/31/19 History Inhaler] Furosemide [Lasix] 40 mg PO BID 06/16/19 08/31/19 History Lisinopril 40 mg PO DAILY 06/16/19 08/31/19 History Metoprolol Tartrate [Lopressor] 25 mg PO BID 06/16/19 08/31/19 History Acetaminophen Tab [Tylenol Tab] 650 mg PO Q6H PRN 08/31/19 08/31/19 History Allopurinol [Zyloprim] 100 mg PO DAILY 08/31/19 08/31/19 History Ergocalciferol [Vitamin D2 1 cap PO Q14D 08/31/19 08/31/19 History (DRISDOL)] Insulin Detemir (Levemir) [Levemir] 18 unit SQ HS 08/31/19 08/31/19 History Allergies Allergy/AdvReac Type Severity Reaction Status Date / Time aspirin Allergy Swelling Verified 08/31/19 09:19 NSAIDS (Non-Steroidal Allergy Swelling Verified 08/31/19 09:19 Anti-Inflamma Physical Exam Vitals: Vital Signs Temp Pulse Pulse Resp BP BP Pulse Ox 08/31/19 07:00 98.1 F 95 18 128/71 95 08/31/19 05:01 99.5 F 87 18 117/64 94 L 08/31/19 03:11 99 F 87 18 128/59 95 08/31/19 01:51 22 08/31/19 01:47 99.9 F H 98 20 135/64 94 L Intake and Output 08/30/19 08/31/19 08/31/19 22:59 06:59 14:59 Intake Total 200 Output Total 125 200 Balance -125 0 Intake: Oral 200 Output: Urine 125 200 Other: Voiding Method Urinal Toilet Urinal # Voids 1 1 Weight 96 kg PHYSICAL EXAMINATION: GENERAL: The patient is alert and oriented x3,. Well developed, well nourished. Patient has parkinsonian tremor appears to be tired and fatigued HEENT: Pupils are round and equally reacting to light. EOMI. No scleral icterus. No conjunctival pallor. Normocephalic, atraumatic. No pharyngeal erythema. No thyromegaly. CARDIOVASCULAR: S1 and S2 present. No murmurs, rubs, or gallops. PULMONARY: Chest is clear to auscultation, no wheezing or crackles. ABDOMEN: Soft, nontender, nondistended, normoactive bowel sounds. No palpable organomegaly. MUSCULOSKELETAL: No joint swelling or deformity. EXTREMITIES: No cyanosis, clubbing, or pedal edema. NEUROLOGICAL: Gross neurological examination did not reveal any focal deficits. SKIN: No rashes. Results CBC & Chem 7: 08/31/19 01:55 08/31/19 01:55 Labs: Abnormal Lab Results - Last 24 Hours (Table) 08/31/19 08/31/19 08/31/19 Range/Units 01:55 01:55 01:55 WBC 14.4 H (3.8-10.6) k/uL RBC 3.73 L (4.30-5.90) m/uL Hgb 12.0 L (13.0-17.5) gm/dL Hct 34.5 L (39.0-53.0) % Neutrophils # 11.7 H (1.3-7.7) k/uL BUN 36 H (9-20) mg/dL Creatinine 1.79 H (0.66-1.25) mg/dL Glucose 289 H (74-99) mg/dL POC Glucose (mg/dL) (75-99) mg/dL Plasma Lactic Acid Riley 2.6 H* (0.7-2.0) mmol/L AST 15 L (17-59) U/L Alkaline Phosphatase 133 H (38-126) U/L Total Protein 6.2 L (6.3-8.2) g/dL Albumin 3.3 L (3.5-5.0) g/dL Urine Protein (Negative) Urine Glucose (UA) (Negative) Urine Blood (Negative) Ur Leukocyte Esterase (Negative) Urine WBC (0-5) /hpf Urine WBC Clumps (None) /hpf Urine Bacteria (None) /hpf Hyaline Casts (0-2) /lpf Urine Mucus (None) /hpf Urine Yeast (Budding) (None) /hpf 08/31/19 08/31/19 08/31/19 Range/Units 01:59 02:48 11:42 WBC (3.8-10.6) k/uL RBC (4.30-5.90) m/uL Hgb (13.0-17.5) gm/dL Hct (39.0-53.0) % Neutrophils # (1.3-7.7) k/uL BUN (9-20) mg/dL Creatinine (0.66-1.25) mg/dL Glucose (74-99) mg/dL POC Glucose (mg/dL) 301 H 331 H (75-99) mg/dL Plasma Lactic Acid Riley (0.7-2.0) mmol/L AST (17-59) U/L Alkaline Phosphatase (38-126) U/L Total Protein (6.3-8.2) g/dL Albumin (3.5-5.0) g/dL Urine Protein 1+ H (Negative) Urine Glucose (UA) 2+ H (Negative) Urine Blood Trace H (Negative) Ur Leukocyte Esterase Large H (Negative) Urine WBC 176 H (0-5) /hpf Urine WBC Clumps Many H (None) /hpf Urine Bacteria Rare H (None) /hpf Hyaline Casts 3 H (0-2) /lpf Urine Mucus Rare H (None) /hpf Urine Yeast (Budding) Few H (None) /hpf Microbiology - Last 24 Hours (Table) 08/31/19 02:48 Urine Culture - Preliminary Urine,Clean Catch Thrombosis Risk Factor Assmnt - Choose All That Apply Any of the Below Risk Factors Present?: Yes Each Factor Represents 1 point: Abnormal pulmonary function (COPD), Obesity (BMI >25) Each Risk Factor Represents 3 Points: Age 75 years or older Thrombosis Risk Factor Assessment Total Risk Factor Score: 5 Thrombosis Risk Factor Assessment Level: High Risk Assessment and Plan Plan: -Severe sepsis secondary to urinary tract infection patient is on IV fluids which will be continued since patient is receiving IV fluids Lasix will be held. For urinary tract infection we'll use vancomycin because of his previous cultures in the urine that is positive for Enterococcus faecalis which is assisted Vanco resistant to penicillins in the to cover gram-negative organisms. Infectious disease will be consulted because of complicated UTI and sepsis -Extensive venous stasis dermatosis and bilateral pedal edema from venous stasis dermatosis Lasix will be held temporarily because of sepsis. 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 The -Diabetic peripheral neuropathy.
[2019-08-31 17:00] LABS: Glucose,Whole Blood 192 mg/dL (75-99)
[2019-08-31] MEDS: CARBIDOPA-LEVODOPA 25-100 MG 1 EACH TAB PO SCH ×2 (17:22→22:42)
[2019-08-31] MEDS: ACETAMINOPHEN TAB 325 MG TAB PO PRN (20:38)
[2019-08-31] MEDS: METOPROLOL TARTRATE 25 MG TAB PO SCH (20:50)
[2019-08-31 21:14] LABS: Glucose,Whole Blood 99 mg/dL (75-99)
--- NOTE | 2019-08-31 21:31 | P.CONS ---
History of Present Illness - Reason for Consult Consult date: 08/31/19 - Chief Complaint Increasing weakness - History of Present Illness 79-year-old male who lives in the family home with his spouse and grandchildren relates that he's been feeling poorly for a few days. He became very weak and actually lowered himself to the ground because he was so weak. EMS was called and he was brought to hospital. He was on evidence of a fever as well as leukocytosis and feeling quite poorly. Patient has a long-standing history of Parkinson's and is a limited historian. He denies severe pain at this time. Review of Systems ROS unobtainable: due to mental status Past Medical History Past Medical History: Atrial Flutter, Cancer, Heart Failure, COPD, Diabetes Mellitus, Hypertension, Musculoskeletal Disorder, Neurologic Disorder, Thyroid Disorder Additional Past Medical History / Comment(s): PT ADMITTED ON 10/27/18 WITH BACTEREMIA D/T KLEBSIELLA PNE/TRANSAMINITIS/BILIARY SLUDGE PER US. OTHERHX: HX A-FLUTTER/TACHYCARDIA- TX W/ SAL/CARDIOVERSION, HAS BLADDER CA WITH SURGERY AND BLADDER INSTILLATION OF MED FOR BLADDER CANCER, IDC WITH UTI-REMOVED, IDDM TYPE II, BILATERAL CATARACTS, ABD HERNIA. PARKINSONS, DIVERTICULITIS, EDEMA FEET/LEGS, DDD lower spine, HYPOTHYROID, PNEUMONIA WITH SEPSIS, acute renal failure d/t acute tubular necrosis d/t sepsis, possible CKD. Last Myocardial Infarction Date:: UNK History of Any Multi-Drug Resistant Organisms: MRSA Year Discovered:: 03/04/19 MDRO Source:: MRSA GROIN Past Surgical History: Adenoidectomy, Bladder Surgery, Cholecystectomy, Tonsillectomy Additional Past Surgical History / Comment(s): 2013 CARDIOVERSION, SAL. BLADDER TUMOR REMOVED,cystoscopy with bladder CA TREATMENTS, colonoscopy Past Anesthesia/Blood Transfusion Reactions: Previous Problems w/ Anesthesia Additional Past Anesthesia/Blood Transfusion Reaction / Comm: HX CLAUSTROPHOBIA Past Psychological History: Anxiety Smoking Status: Former smoker Past Alcohol Use History: None Reported Past Drug Use History: None Reported - Past Family History Father Family Medical History: Cancer Additional Family Medical History / Comment(s): Bone cancer. Mother Family Medical History: Coronary Artery Disease (CAD) Additional Family Medical History / Comment(s): Macular degeneration Sister(s) Family Medical History: Cancer Additional Family Medical History / Comment(s): breast CA Medications and Allergies Home Medications and Allergies Comment(s): Current Medications Acetaminophen (Tylenol Tab) 650 mg PO Q6H PRN PRN Reason: Mild Pain Last Admin: 08/31/19 20:38 Dose: 650 mg Documented by: Albuterol Sulfate (Ventolin Nebulized) 2.5 mg INHALATION RT-Q6H PRN PRN Reason: Shortness Of Breath Allopurinol (Zyloprim) 100 mg PO DAILY [facility] Carbidopa/Levodopa (Sinemet 25-100) 2 each PO TID [facility] Last Admin: 08/31/19 17:22 Dose: 2 each Documented by: Ergocalciferol (Vitamin D2) 50,000 unit PO Q14D [facility] Sodium Chloride (Saline 0.9%) 1,000 mls @ 75 mls/hr IV .[id number] [facility] Last Admin: 08/31/19 13:09 Dose: 75 mls/hr Documented by: Ceftriaxone Sodium 1 gm/ (Sodium Chloride) 50 mls @ 100 mls/hr IVPB HS [facility] Last Admin: 08/31/19 20:50 Dose: 100 mls/hr Documented by: Vancomycin HCl 1,500 mg/ (Sodium Chloride) 250 mls @ 125 mls/hr IVPB Q24H [facility] Insulin Aspart (Novolog) 0 unit SQ ACHS [facility]; Protocol Last Admin: 08/31/19 17:23 Dose: 2 unit Documented by: Insulin Aspart (Novolog) 5 unit SQ AC-TID [facility] Last Admin: 08/31/19 17:22 Dose: 5 unit Documented by: Insulin Detemir (Levemir) 18 unit SQ HS [facility] Levothyroxine Sodium (Synthroid) 100 mcg PO DAILY@0630 [facility] Metoprolol Tartrate (Lopressor) 25 mg PO BID [facility] Last Admin: 08/31/19 20:50 Dose: 25 mg Documented by: Naloxone HCl (Narcan) 0.2 mg IV Q2M PRN PRN Reason: Opioid Reversal Home Medications Medication Instructions Recorded Confirmed Type Carbidopa-Levodopa 25-100 mg 2 tab PO TID 07/08/16 08/31/19 History [Sinemet 25-100 mg] Levothyroxine Sodium [Synthroid] 100 mcg PO DAILY 05/27/19 08/31/19 History INSULIN ASPART (NovoLOG) [NovoLOG 5 unit SQ AC-TID #1 vial 05/30/19 08/31/19 Rx (formulary)] Albuterol Inhaler [Ventolin Hfa 2 puff INHALATION RT-Q6H PRN 06/16/19 08/31/19 History Inhaler] Furosemide [Lasix] 40 mg PO BID 06/16/19 08/31/19 History Lisinopril 40 mg PO DAILY 06/16/19 08/31/19 History Metoprolol Tartrate [Lopressor] 25 mg PO BID 06/16/19 08/31/19 History Acetaminophen Tab [Tylenol Tab] 650 mg PO Q6H PRN 08/31/19 08/31/19 History Allopurinol [Zyloprim] 100 mg PO DAILY 08/31/19 08/31/19 History Ergocalciferol [Vitamin D2 1 cap PO Q14D 08/31/19 08/31/19 History (DRISDOL)] Insulin Detemir (Levemir) [Levemir] 18 unit SQ HS 08/31/19 08/31/19 History Allergies Allergy/AdvReac Type Severity Reaction Status Date / Time aspirin Allergy Swelling Verified 08/31/19 09:19 NSAIDS (Non-Steroidal Allergy Swelling Verified 08/31/19 09:19 Anti-Inflamma Physical Exam Vitals: Vital Signs Temp Pulse Pulse Resp BP BP Pulse Ox 08/31/19 20:56 99.8 F H 08/31/19 20:35 102.6 F H 08/31/19 19:20 100.1 F H 90 135/62 93 L 08/31/19 17:07 98 F 78 18 139/75 94 L 08/31/19 16:47 98.9 F 81 16 162/69 93 L 08/31/19 07:00 98.1 F 95 18 128/71 95 08/31/19 05:01 99.5 F 87 18 117/64 94 L 08/31/19 03:11 99 F 87 18 128/59 95 08/31/19 01:51 22 08/31/19 01:47 99.9 F H 98 20 135/64 94 L Intake and Output 08/31/19 08/31/19 08/31/19 06:59 14:59 22:59 Intake Total 200 150 Output Total 125 200 300 Balance -125 0 -150 Intake: Oral 200 150 Output: Urine 125 200 300 Other: Voiding Method Urinal Toilet Urinal # Voids 1 4 2 # Bowel Movements 1 Weight 96 kg 79-year-old male who seems to be comfortable, he was arousable but is noted is a very poor historian. HEENT: Anicteric conjunctiva are pink and moist nasal mucosa grossly intact without significant lesions, there is no thrush. Has dentures Neck: The neck is supple without significant lymphadenopathy or thyromegaly. Lungs: There is symmetrical bilateral air entry with few crackles at the bases no sniffy and wheezing Heart: Irregular with a soft S4. No murmur click or rub Abdomen: Mildly obese, Positive bowel sounds soft and nontender without palpable masses or organomegaly. There was no guarding or rebound. Extremities: The upper extremities have excellent pulses they are symmetric, no significant petechiae or telangiectasia. No splinter hemorrhages were noted. Lower extremities have evidence of extensive bilateral lower extremity edema, skin is thickened toenails are untrimmed no open ulcerations are seen Neuro: Arousable poor historian but was able to move extremities upon stimulation. Results CBC & Chem 7: 08/31/19 01:55 08/31/19 01:55 Labs: Abnormal Lab Results - Last 24 Hours (Table) 08/31/19 08/31/19 08/31/19 Range/Units 01:55 01:55 01:55 WBC 14.4 H (3.8-10.6) k/uL RBC 3.73 L (4.30-5.90) m/uL Hgb 12.0 L (13.0-17.5) gm/dL Hct 34.5 L (39.0-53.0) % Neutrophils # 11.7 H (1.3-7.7) k/uL BUN 36 H (9-20) mg/dL Creatinine 1.79 H (0.66-1.25) mg/dL Glucose 289 H (74-99) mg/dL POC Glucose (mg/dL) (75-99) mg/dL Plasma Lactic Acid Riley 2.6 H* (0.7-2.0) mmol/L AST 15 L (17-59) U/L Alkaline Phosphatase 133 H (38-126) U/L Total Protein 6.2 L (6.3-8.2) g/dL Albumin 3.3 L (3.5-5.0) g/dL Urine Protein (Negative) Urine Glucose (UA) (Negative) Urine Blood (Negative) Ur Leukocyte Esterase (Negative) Urine WBC (0-5) /hpf Urine WBC Clumps (None) /hpf Urine Bacteria (None) /hpf Hyaline Casts (0-2) /lpf Urine Mucus (None) /hpf Urine Yeast (Budding) (None) /hpf 08/31/19 08/31/19 08/31/19 Range/Units 01:59 02:48 11:42 WBC (3.8-10.6) k/uL RBC (4.30-5.90) m/uL Hgb (13.0-17.5) gm/dL Hct (39.0-53.0) % Neutrophils # (1.3-7.7) k/uL BUN (9-20) mg/dL Creatinine (0.66-1.25) mg/dL Glucose (74-99) mg/dL POC Glucose (mg/dL) 301 H 331 H (75-99) mg/dL Plasma Lactic Acid Riley (0.7-2.0) mmol/L AST (17-59) U/L Alkaline Phosphatase (38-126) U/L Total Protein (6.3-8.2) g/dL Albumin (3.5-5.0) g/dL Urine Protein 1+ H (Negative) Urine Glucose (UA) 2+ H (Negative) Urine Blood Trace H (Negative) Ur Leukocyte Esterase Large H (Negative) Urine WBC 176 H (0-5) /hpf Urine WBC Clumps Many H (None) /hpf Urine Bacteria Rare H (None) /hpf Hyaline Casts 3 H (0-2) /lpf Urine Mucus Rare H (None) /hpf Urine Yeast (Budding) Few H (None) /hpf 08/31/19 Range/Units 16:58 WBC (3.8-10.6) k/uL RBC (4.30-5.90) m/uL Hgb (13.0-17.5) gm/dL Hct (39.0-53.0) % Neutrophils # (1.3-7.7) k/uL BUN (9-20) mg/dL Creatinine (0.66-1.25) mg/dL Glucose (74-99) mg/dL POC Glucose (mg/dL) 192 H (75-99) mg/dL Plasma Lactic Acid Riley (0.7-2.0) mmol/L AST (17-59) U/L Alkaline Phosphatase (38-126) U/L Total Protein (6.3-8.2) g/dL Albumin (3.5-5.0) g/dL Urine Protein (Negative) Urine Glucose (UA) (Negative) Urine Blood (Negative) Ur Leukocyte Esterase (Negative) Urine WBC (0-5) /hpf Urine WBC Clumps (None) /hpf Urine Bacteria (None) /hpf Hyaline Casts (0-2) /lpf Urine Mucus (None) /hpf Urine Yeast (Budding) (None) /hpf Microbiology - Last 24 Hours (Table) 08/31/19 01:55 Blood Culture Gram Stain - Preliminary Blood 08/31/19 01:55 Blood Culture - Final Blood 08/31/19 02:48 Urine Culture - Preliminary Urine,Clean Catch Microbiology 08/31/19 01:55 Blood Blood Culture Gram Stain - Preliminary 08/31/19 01:55 Blood Blood Culture - Final 08/31/19 02:48 Urine,Clean Catch Urine Culture - Preliminary Chest x-ray: report reviewed (No evidence of any acute pneumonia or heart failure) US - abdomen: report reviewed (07/12/2019 ultrasound of kidneys is performed without evidence of hydronephrosis) Assessment and Plan (1) Bacteremia Narrative/Plan: 79-year-old male who has a history of diabetes, Parkinson's disease and history of bladder cancer that has been treated with surgical intervention as well as intravesicular treatment. He now presents with a worsening of his status showing evidence of a high-grade fever, leukocytosis, elevated lactic acid which are all consistent with recurrent sepsis from urinary system in this debilitated gentleman. Antibiotic therapy was begun with vancomycin based on his recent urine cultures that showed evidence of MRSA and enterococcus that was not vancomycin resistant. There is evidence of the positive blood culture with gram-positive cocci. The patient has had an echocardiogram done earlier this year without evidence of any severe valvular disease. At this time with continued vancomycin therapy. Will request follow blood cultures to be performed to evaluate clearance of bacteremia with treatment of antibiotic therapy. With the development of bacteremia will need outpatient intravenous antibiotic therapy. The lower extremities evidence of chronic edema but there does not appear to be any open ulcerations or cellulitis, local care with elevation and compression stockings could be helpful. Current Visit: Yes Status: Acute Code(s): R78.81 - BACTEREMIA SNOMED Code(s): 3201143 (2) Urinary tract infection Current Visit: Yes Status: Acute Code(s): N39.0 - URINARY TRACT INFECTION, SITE NOT SPECIFIED SNOMED Code(s): 31724241 (3) Leukocytosis Current Visit: Yes Status: Acute Code(s): D72.829 - ELEVATED WHITE BLOOD CELL COUNT, UNSPECIFIED SNOMED Code(s): 689979835 (4) Acute sepsis Current Visit: Yes Status: Acute Code(s): A41.9 - SEPSIS, UNSPECIFIED ORGANISM SNOMED Code(s): 11005770
[2019-08-31] MEDS: INSULIN DETEMIR (LEVEMIR) 100 UNIT/ML SYR SQ SCH (21:40)
[2019-09-01] MEDS: SODIUM CHLORIDE 0.9% 1,000 ML IV SCH ×3 (01:34→20:25)
[2019-09-01] MEDS: ACETAMINOPHEN TAB 325 MG TAB PO PRN ×2 (02:36→20:28)
[2019-09-01] MEDS: LEVOTHYROXINE 100 MCG TAB PO SCH (05:09)
[2019-09-01 06:46] LABS: Glucose,Whole Blood 142 mg/dL (75-99)
[2019-09-01 07:34] LABS: HCT 31.1 % (39.0-53.0); HGB 10.7 gm/dL (13.0-17.5); MCH 32.2 pg (25.0-35.0); MCHC 34.4 g/dL (31.0-37.0); MCV 93.7 fL (80.0-100.0); Mean Platelet Volume 7.4; Platelet Count 163 k/uL (150-450); RBC 3.31 m/uL (4.30-5.90); RDW 13.2 % (11.5-15.5); WBC 13.2 k/uL (3.8-10.6)
[2019-09-01 07:48] LABS: Potassium 3.4 mmol/L (3.5-5.1)
[2019-09-01] MEDS: METOPROLOL TARTRATE 25 MG TAB PO SCH ×2 (07:54→20:31)
[2019-09-01] MEDS: ALLOPURINOL 100 MG TAB PO SCH (07:54)
[2019-09-01] MEDS: VANCOMYCIN 1,500 MG in SODIUM CHLORIDE 0.9% 250 ML IVPB SCH (07:54)
[2019-09-01] MEDS: CARBIDOPA-LEVODOPA 25-100 MG 1 EACH TAB PO SCH ×3 (07:54→20:29)
[2019-09-01] MEDS: INSULIN ASPART (NovoLOG) 100 UNIT/ML VIAL SQ SCH ×7 (07:54→20:19)
[2019-09-01] MEDS ORDERED: POTASSIUM CHLORIDE ER 20 MEQ TAB.ER PO STA (09:23)
[2019-09-01 11:31] LABS: Glucose,Whole Blood 163 mg/dL (75-99)
[2019-09-01 14:28] LABS: Hemoglobin A1C 8.8 % (4.0-6.0)
[2019-09-01 16:50] LABS: Glucose,Whole Blood 200 mg/dL (75-99)
--- NOTE | 2019-09-01 19:37 | XR ---
EXAMINATION TYPE: XR knee 4V RT DATE OF EXAM: 09/01/2019 COMPARISON: NONE HISTORY: Knee pain TECHNIQUE: 4 views FINDINGS: I see no fracture nor dislocation. Joint spaces are normal. There is no sign of joint effus ion. There are no pathologic calcifications. IMPRESSION: Negative right knee exam. No fracture seen.
[2019-09-01 20:19] LABS: Glucose,Whole Blood 112 mg/dL (75-99)
[2019-09-01] MEDS: INSULIN DETEMIR (LEVEMIR) 100 UNIT/ML SYR SQ SCH (20:19)
[2019-09-02] MEDS: LEVOTHYROXINE 100 MCG TAB PO SCH (06:22)
[2019-09-02 06:41] LABS: Glucose,Whole Blood 140 mg/dL (75-99)
[2019-09-02 07:30] LABS: Basophils % (A) 0 %; Eosinophils # (A) 0.2 k/uL (0-0.7); Eosinophils % (A) 1 %; HGB 11.1 gm/dL (13.0-17.5); Lymphocytes # (A) 1.4 k/uL (1.0-4.8); Lymphocytes % (A) 12 %; MCH 31.1 pg (25.0-35.0); MCHC 32.7 g/dL (31.0-37.0); MCV 95.2 fL (80.0-100.0); Mean Platelet Volume 7.7; Monocytes # (A) 0.7 k/uL (0-1.0); Monocytes % (A) 6 %; Neutrophils # (A) 8.9 k/uL (1.3-7.7); Neutrophils % (A) 79 %; Platelet Count 168 k/uL (150-450); RBC 3.57 m/uL (4.30-5.90); RDW 13.2 % (11.5-15.5); WBC 11.3 k/uL (3.8-10.6)
[2019-09-02 07:31] LABS: Calcium 8.3 mg/dL (8.4-10.2); Potassium 3.8 mmol/L (3.5-5.1)
--- NOTE | 2019-09-02 08:46 | P.PN ---
Subjective Progress Note Date: 09/01/19 Principal diagnosis: 73-year-old male came in because of possible Infection as patient felt quite weak and lethargic found to have high-grade fever found to be septic with the lactic acidosis. Patient does take Lasix at home regimen of history of congestive heart failure. Patient does have Parkinson's and is on carbidopa levodopa for that. Patient lowered himself to Because of Generalized Weakness. Patient Chest X-Ray Did Not Show Pneumonia but Urine Is Significant Abnormality Patient Does Have History of UTI in the past Patient Has Enterococcus Which Is Resistant to Penicillin but Sensitive to Vancomycin. Patient Also Had MRSA UTI in the past. Urine Cultures Blood Cultures Were Obtained. 09/01/2019 Patient is lying in bed in no acute distress with no acute overnight issues. Patient states that he continues to feel weak and has been working with PT/OT. Infectious disease is following. Patient's blood cultures have resulted with presumptive MRSA and repeat blood cultures are pending at this time. Patient is currently on IV antibiotics in the form of ceftriaxone and vancomycin and will continue at this time. Patient denies any chest pain, shortness of breath, or palpitations. Patient has been afebrile. Patient denies any nausea or vomiting and is tolerating diet. Patient states that he has been falling more frequently at home in case management and social work are following for discharge planning as the patient may require rehab upon discharge. Will continue to monitor closely. Objective - Vital Signs Vital signs: Vital Signs Temp 98.9 F 09/01/19 07:00 Pulse 73 09/01/19 07:00 Resp 16 09/01/19 07:00 BP 133/65 09/01/19 07:00 Pulse Ox 94 L 09/01/19 07:00 Intake & Output 08/31/19 09/01/19 09/01/19 18:59 06:59 18:59 Intake Total 200 170 200 Output Total 500 100 Balance -300 170 100 Weight 88.5 kg Intake: Oral 200 170 200 Output: Urine 500 100 Other: Voiding Method Toilet Toilet Urinal Urinal # Voids 2 1 1 # Bowel Movements 1 - Exam GENERAL: The patient is alert and oriented x3,. Well developed, well nourished. Patient has parkinsonian tremor appears to be tired and fatigued HEENT: Pupils are round and equally reacting to light. EOMI. No scleral icterus. No conjunctival pallor. Normocephalic, atraumatic. No pharyngeal erythema. No thyromegaly. CARDIOVASCULAR: S1 and S2 present. No murmurs, rubs, or gallops. PULMONARY: Chest is clear to auscultation, no wheezing or crackles. ABDOMEN: Soft, nontender, nondistended, normoactive bowel sounds. No palpable organomegaly. MUSCULOSKELETAL: No joint swelling or deformity. EXTREMITIES: No cyanosis, clubbing, or pedal edema. NEUROLOGICAL: Gross neurological examination did not reveal any focal deficits. SKIN: No rashes. - Labs CBC & Chem 7: 09/02/19 06:52 09/02/19 06:52 Labs: Abnormal Lab Results - Last 24 Hours (Table) 08/31/19 09/01/19 09/01/19 Range/Units 16:58 06:30 06:30 WBC 13.2 H (3.8-10.6) k/uL RBC 3.31 L (4.30-5.90) m/uL Hgb 10.7 L (13.0-17.5) gm/dL Hct 31.1 L (39.0-53.0) % Potassium 3.4 L (3.5-5.1) mmol/L BUN 27 H (9-20) mg/dL Creatinine 1.65 H (0.66-1.25) mg/dL Glucose 122 H (74-99) mg/dL POC Glucose (mg/dL) 192 H (75-99) mg/dL Calcium 8.0 L (8.4-10.2) mg/dL 09/01/19 09/01/19 Range/Units 06:44 11:29 WBC (3.8-10.6) k/uL RBC (4.30-5.90) m/uL Hgb (13.0-17.5) gm/dL Hct (39.0-53.0) % Potassium (3.5-5.1) mmol/L BUN (9-20) mg/dL Creatinine (0.66-1.25) mg/dL Glucose (74-99) mg/dL POC Glucose (mg/dL) 142 H 163 H (75-99) mg/dL Calcium (8.4-10.2) mg/dL Microbiology - Last 24 Hours (Table) 08/31/19 22:03 Blood Culture - Final Blood 08/31/19 01:55 Blood Culture Gram Stain - Preliminary Blood Blood Culture - Preliminary Presumptive MRSA 08/31/19 22:29 Blood Culture - Final Blood 08/31/19 02:48 Urine Culture - Final Urine,Clean Catch 08/31/19 01:55 Blood Culture - Final Blood Assessment and Plan Assessment: -Severe sepsis secondary to urinary tract infection patient is on IV fluids which will be continued since patient is receiving IV fluids Lasix will be held. For urinary tract infection we'll use vancomycin because of his previous cultures in the urine that is positive for Enterococcus faecalis which is assisted Vanco resistant to penicillins in the to cover gram-negative organisms. Infectious disease is following because of complicated UTI and sepsis -Extensive venous stasis dermatosis and bilateral pedal edema from venous stasis dermatosis Lasix will be held temporarily because of sepsis. Continue with IV fluids -Type 2 diabetes mellitus continue with present regimen uncontrolled and elevated blood sugars titration of insulin depending on the blood sugars and sliding scale needs -Generalized weakness secondary to sepsis -Parkinson's -Hypothyroidism -COPD without any acute exacerbation -Acute kidney injury: From sepsis IV fluids as mentioned above and Lasix is contributing to his acute renal failure -Chronic kidney disease stage 2-3 -Diabetic peripheral neuropathy.
[2019-09-02] MEDS: CARBIDOPA-LEVODOPA 25-100 MG 1 EACH TAB PO SCH ×3 (09:40→21:16)
[2019-09-02] MEDS: ALLOPURINOL 100 MG TAB PO SCH (09:40)
[2019-09-02] MEDS: INSULIN ASPART (NovoLOG) 100 UNIT/ML VIAL SQ SCH ×7 (09:40→21:12)
[2019-09-02] MEDS: VANCOMYCIN 1,500 MG in SODIUM CHLORIDE 0.9% 250 ML IVPB SCH (09:41)
[2019-09-02] MEDS: ERGOCALCIFEROL 50,000 UNIT CAP PO SCH (09:41)
[2019-09-02] MEDS: METOPROLOL TARTRATE 25 MG TAB PO SCH ×2 (09:41→21:16)
[2019-09-02 11:41] LABS: Glucose,Whole Blood 166 mg/dL (75-99)
--- NOTE | 2019-09-02 16:35 | P.PN ---
Subjective Progress Note Date: 09/02/19 Principal diagnosis: 73-year-old male came in because of possible Infection as patient felt quite weak and lethargic found to have high-grade fever found to be septic with the lactic acidosis. Patient does take Lasix at home regimen of history of congestive heart failure. Patient does have Parkinson's and is on carbidopa levodopa for that. Patient lowered himself to Because of Generalized Weakness. Patient Chest X-Ray Did Not Show Pneumonia but Urine Is Significant Abnormality Patient Does Have History of UTI in the past Patient Has Enterococcus Which Is Resistant to Penicillin but Sensitive to Vancomycin. Patient Also Had MRSA UTI in the past. Urine Cultures Blood Cultures Were Obtained. 09/01/2019 Patient is lying in bed in no acute distress with no acute overnight issues. Patient states that he continues to feel weak and has been working with PT/OT. Infectious disease is following. Patient's blood cultures have resulted with presumptive MRSA and repeat blood cultures are pending at this time. Patient is currently on IV antibiotics in the form of ceftriaxone and vancomycin and will continue at this time. Patient denies any chest pain, shortness of breath, or palpitations. Patient has been afebrile. Patient denies any nausea or vomiting and is tolerating diet. Patient states that he has been falling more frequently at home in case management and social work are following for discharge planning as the patient may require rehab upon discharge. Will continue to monitor closely. 09/02/2019 Patient is lying in bed in no acute distress with no acute overnight issues. Repeat blood cultures have shown presumptive MRSA. Infectious disease is f ollowing. Patient is having some right knee pain an x-ray was done showing no fracture nor dislocation and joint spaces are normal with no signs of joint effusion. Patient is currently on IV antibiotics in the form of vancomycin and will continue at this time. Patient is on gentle IV hydration at 75mL/hr his creatinine is improving and is currently 1.56. White blood count is trending down and is currently 11.3. Will repeat a.m. labs. Cardiology is consulted and is pending at this time. Will continue to monitor vital signs and labs closely. REVIEW OF SYSTEMS: ENT: diminished vision and hearing. CARDIOVASCULAR: No reports of chest pain or palpitations RESPIRATORY: No reports her shortness of breath or cough GI: No nausea, vomiting or diarrhea. : No dysuria or retention. NERVOUS SYSTEM: Reports generalized weakness. MUSCULOSKELETAL: Reports right knee pain HEMATOLOGY/ONCOLOGY: No history of anemia. ENDOCRINE: Reports diabetes and hypothyroidism. CONSTITUTIONAL: Reports fatigue DERMATOLOGY: Negative. PSYCHIATRY: Cooperative, non-suicidal Active Medications Acetaminophen (Tylenol Tab) 650 mg PO Q6H PRN Albuterol Sulfate (Ventolin Nebulized) 2.5 mg INHALATION RT-Q6H PRN Allopurinol (Zyloprim) 100 mg PO DAILY [facility] Carbidopa/Levodopa (Sinemet 25-100) 2 each PO TID [facility] Ergocalciferol (Vitamin D2) 50,000 unit PO Q14D [facility] Sodium Chloride (Saline 0.9%) 1,000 mls @ 75 mls/hr IV .[id number] [facility] Ceftriaxone Sodium 1 gm/ (Sodium Chloride) 50 mls @ 100 mls/hr IVPB HS [facility] Vancomycin HCl 1,500 mg/ (Sodium Chloride) 250 mls @ 125 mls/hr IVPB Q24H [facility] Insulin Aspart (Novolog) 0 unit SQ ACHS [facility]; Protocol Insulin Aspart (Novolog) 5 unit SQ AC-TID [facility] Insulin Detemir (Levemir) 18 unit SQ HS [facility] Levothyroxine Sodium (Synthroid) 100 mcg PO DAILY@0630 [facility] Metoprolol Tartrate (Lopressor) 25 mg PO BID [facility] Miscellaneous Information (Vancomycin Trough Due) 0 each MISCELLANE DIRECTED ONE Naloxone HCl (Narcan) 0.2 mg IV Q2M PRN Objective - Vital Signs Vital signs: Vital Signs Temp 99.5 F 09/02/19 07:00 Pulse 80 09/02/19 07:00 Resp 17 09/02/19 07:00 BP 118/72 09/02/19 07:00 Pulse Ox 90 L 09/02/19 07:00 Intake & Output 09/01/19 09/02/19 09/02/19 18:59 06:59 18:59 Intake Total 405 200 Output Total 100 100 Balance 305 -100 200 Weight 88.5 kg Intake: Oral 405 200 Output: Urine 100 100 Other: Voiding Method Toilet Toilet Urinal Urinal # Voids 3 1 - Exam GENERAL: The patient is alert and oriented x3,. Well developed, well nourished. Patient has parkinsonian tremor appears to be tired and fatigued HEENT: Pupils are round and equally reacting to light. EOMI. No scleral icterus. No conjunctival pallor. Normocephalic, atraumatic. No pharyngeal erythema. No thyromegaly. CARDIOVASCULAR: S1 and S2 present. No murmurs, rubs, or gallops. PULMONARY: Chest is clear to auscultation, no wheezing or crackles. ABDOMEN: Soft, nontender, nondistended, normoactive bowel sounds. No palpable organomegaly. MUSCULOSKELETAL: No joint swelling or deformity. Right knee pain EXTREMITIES: No cyanosis, clubbing, or pedal edema. NEUROLOGICAL: Gross neurological examination did not reveal any focal deficits. SKIN: No rashes. - Labs CBC & Chem 7: 09/02/19 06:52 09/02/19 06:52 Labs: Abnormal Lab Results - Last 24 Hours (Table) 09/01/19 09/01/19 09/01/19 Range/Units 06:30 11:29 16:49 WBC (3.8-10.6) k/uL RBC (4.30-5.90) m/uL Hgb (13.0-17.5) gm/dL Hct (39.0-53.0) % Neutrophils # (1.3-7.7) k/uL Carbon Dioxide (22-30) mmol/L BUN (9-20) mg/dL Creatinine (0.66-1.25) mg/dL Glucose (74-99) mg/dL POC Glucose (mg/dL) 163 H 200 H (75-99) mg/dL Hemoglobin A1c 8.8 H (4.0-6.0) % Calcium (8.4-10.2) mg/dL 09/01/19 09/02/19 09/02/19 Range/Units 20:18 06:40 06:52 WBC 11.3 H (3.8-10.6) k/uL RBC 3.57 L (4.30-5.90) m/uL Hgb 11.1 L (13.0-17.5) gm/dL Hct 34.0 L (39.0-53.0) % Neutrophils # 8.9 H (1.3-7.7) k/uL Carbon Dioxide (22-30) mmol/L BUN (9-20) mg/dL Creatinine (0.66-1.25) mg/dL Glucose (74-99) mg/dL POC Glucose (mg/dL) 112 H 140 H (75-99) mg/dL Hemoglobin A1c (4.0-6.0) % Calcium (8.4-10.2) mg/dL 09/02/19 Range/Units 06:52 WBC (3.8-10.6) k/uL RBC (4.30-5.90) m/uL Hgb (13.0-17.5) gm/dL Hct (39.0-53.0) % Neutrophils # (1.3-7.7) k/uL Carbon Dioxide 21 L (22-30) mmol/L BUN 22 H (9-20) mg/dL Creatinine 1.56 H (0.66-1.25) mg/dL Glucose 139 H (74-99) mg/dL POC Glucose (mg/dL) (75-99) mg/dL Hemoglobin A1c (4.0-6.0) % Calcium 8.3 L (8.4-10.2) mg/dL Microbiology - Last 24 Hours (Table) 08/31/19 22:29 Blood Culture Gram Stain - Preliminary Blood Blood Culture - Preliminary Presumptive MRSA 08/31/19 22:03 Blood Culture Gram Stain - Preliminary Blood Blood Culture - Preliminary Presumptive MRSA 08/31/19 01:55 Blood Culture Gram Stain - Preliminary Blood Blood Culture - Preliminary Presumptive MRSA 08/31/19 22:03 Blood Culture - Final Blood 08/31/19 22:29 Blood Culture - Final Blood 08/31/19 02:48 Urine Culture - Final Urine,Clean Catch Assessment and Plan Assessment: -Severe sepsis secondary to urinary tract infection patient is on IV fluids which will be continued since patient is receiving IV fluids Lasix will be held. For urinary tract infection we'll use vancomycin because of his previous cultures in the urine that is positive for Enterococcus faecalis which is assisted Vanco resistant to penicillins in the to cover gram-negative organisms. Infectious disease is following because of complicated UTI and sepsis. Blood cultures thus far showing presumptive MRSA and will obtain repeat blood cultures -Extensive venous stasis dermatosis and bilateral pedal edema from venous stasis dermatosis Lasix will be held temporarily because of sepsis. Continue with IV fluids -Type 2 diabetes mellitus continue with present regimen uncontrolled and elevated blood sugars titration of insulin depending on the blood sugars and sliding scale needs -Generalized weakness secondary to sepsis -Parkinson's -Hypothyroidism -COPD without any acute exacerbation -Acute kidney injury: From sepsis IV fluids as mentioned above and Lasix is contributing to his acute renal failure -Chronic kidney disease stage 2-3 -Diabetic peripheral neuropathy. Recommendations and discussion: Recommend to continue current medications, management, and symptomatic treatment. Infectious disease is following. Cardiology was consulted for possible SAL to rule out endocarditis as patient's repeat blood cultures have continued to show presumptive MRSA. Daily blood cultures have been ordered. Patient will continue on IV antibiotics in the form of vancomycin at this time. Will continue to monitor closely. Case management and director social following as well for possible placement once patient is discharged. Patient may likely need IV antibiotics as well as continue PT/OT therapy for strengthening mobility. Guarded prognosis. Further recommendations to follow.
[2019-09-02 16:41] LABS: Glucose,Whole Blood 141 mg/dL (75-99)
[2019-09-02] MEDS: SODIUM CHLORIDE 0.9% 1,000 ML IV SCH (17:39)
[2019-09-02 21:10] LABS: Glucose,Whole Blood 122 mg/dL (75-99)
[2019-09-02] MEDS: INSULIN DETEMIR (LEVEMIR) 100 UNIT/ML SYR SQ SCH (21:13)
--- NOTE | 2019-09-02 23:56 | P.PN ---
Subjective Progress Note Date: 09/02/19 79-year-old male who lives in the family home with his spouse and grandchildren relates that he's been feeling poorly for a few days. He became very weak and actually lowered himself to the ground because he was so weak. EMS was called and he was brought to hospital. He was on evidence of a fever as well as leukocytosis and feeling quite poorly. Patient has a long-standing history of Parkinson's and is a limited historian. He denies severe pain at this time. 09/02/2019 patient remains a poor historian but he is a bit stronger and may have sitting up in the chair. He has no significant complaints. Objective - Vital Signs Vital signs: Vital Signs Temp 98.9 F 09/02/19 19:46 Pulse 82 09/02/19 19:46 Resp 16 09/02/19 19:46 BP 159/73 09/02/19 19:46 Pulse Ox 92 L 09/02/19 19:46 Intake & Output 09/02/19 09/02/19 09/03/19 06:59 18:59 06:59 Intake Total 600 295 Output Total 100 Balance -100 600 295 Weight 98.5 kg Intake: Intake, IV Titration 95 Amount Sodium Chloride 0.9% 1, 95 000 ml @ 75 mls/hr IV . [id number] [facility] Rx#:[id number] Oral 600 200 Output: Urine 100 Other: Voiding Method Toilet Toilet Urinal Urinal Urinal Diaper Incontinent # Voids 1 3 2 - Exam 79-year-old male who seems to be comfortable, he was arousable but is noted is a very poor historian. HEENT: Anicteric conjunctiva are pink and moist nasal mucosa grossly intact without significant lesions, there is no thrush. Has dentures Neck: The neck is supple without significant lymphadenopathy or thyromegaly. Lungs: There is symmetrical bilateral air entry with few crackles at the bases no sniffy and wheezing Heart: Irregular with a soft S4. No murmur click or rub Abdomen: Mildly obese, Positive bowel sounds soft and nontender without palpable masses or organomegaly. There was no guarding or rebound. Extremities: The upper extremities have excellent pulses they are symmetric, no significant petechiae or telangiectasia. No splinter hemorrhages were noted. Lower extremities have evidence of extensive bilateral lower extremity edema, skin is thickened toenails are untrimmed no open ulcerations are seen Neuro: Arousable poor historian but was able to move extremities upon stimulation. - Labs CBC & Chem 7: 09/02/19 06:52 09/02/19 06:52 Labs: Abnormal Lab Results - Last 24 Hours (Table) 09/02/19 09/02/19 09/02/19 Range/Units 06:40 06:52 06:52 WBC 11.3 H (3.8-10.6) k/uL RBC 3.57 L (4.30-5.90) m/uL Hgb 11.1 L (13.0-17.5) gm/dL Hct 34.0 L (39.0-53.0) % Neutrophils # 8.9 H (1.3-7.7) k/uL Carbon Dioxide 21 L (22-30) mmol/L BUN 22 H (9-20) mg/dL Creatinine 1.56 H (0.66-1.25) mg/dL Glucose 139 H (74-99) mg/dL POC Glucose (mg/dL) 140 H (75-99) mg/dL Calcium 8.3 L (8.4-10.2) mg/dL 09/02/19 09/02/19 09/02/19 Range/Units 11:40 16:40 21:09 WBC (3.8-10.6) k/uL RBC (4.30-5.90) m/uL Hgb (13.0-17.5) gm/dL Hct (39.0-53.0) % Neutrophils # (1.3-7.7) k/uL Carbon Dioxide (22-30) mmol/L BUN (9-20) mg/dL Creatinine (0.66-1.25) mg/dL Glucose (74-99) mg/dL POC Glucose (mg/dL) 166 H 141 H 122 H (75-99) mg/dL Calcium (8.4-10.2) mg/dL Microbiology - Last 24 Hours (Table) 08/31/19 01:55 Blood Culture Gram Stain - Final Blood Blood Culture - Final Methicillin resist S. aureus 08/31/19 02:48 Urine Culture - Preliminary Urine,Clean Catch Yeast species 08/31/19 22:29 Blood Culture Gram Stain - Preliminary Blood Blood Culture - Preliminary Presumptive MRSA 08/31/19 22:03 Blood Culture Gram Stain - Preliminary Blood Blood Culture - Preliminary Presumptive MRSA Assessment and Plan (1) Bacteremia Narrative/Plan: 79-year-old male who has a history of diabetes, Parkinson's disease and history of bladder cancer that has been treated with surgical intervention as well as intravesicular treatment. He now presents with a worsening of his status showing evidence of a high-grade fever, leukocytosis, elevated lactic acid which are all consistent with recurrent sepsis from urinary system in this debilitated gentleman. Antibiotic therapy was begun with vancomycin based on his recent urine cultures that showed evidence of MRSA and enterococcus that was not vancomycin resistant. There is evidence of the positive blood culture with gram-positive cocci. The patient has had an echocardiogram done earlier this year without evidence of any severe valvular disease. At this time with continued vancomycin therapy. Will request follow blood cultures to be performed to evaluate clearance of bacteremia with treatment of antibiotic therapy. With the development of bacteremia will need outpatient intravenous antibiotic therapy. The lower extremities evidence of chronic edema but there does not appear to be any open ulcerations or cellulitis, local care with elevation and compression stockings could be helpful. 09/02/2019 patient is bit stronger, but has evidence of ongoing positive blood cultures. Conservatively to urinary source and ultrasound of the kidneys has been requested to evaluate for any type of obstruction problem or renal abscess. Also perinephric abscess. By November vancomycin continues. We'll follow blood cultures again tomorrow to see be certain occurs bacteremia with therapy. He 15 feels slightly better but still has ongoing acute illness at this time. Current Visit: Yes Status: Acute Code(s): R78.81 - BACTEREMIA SNOMED Code(s): 0795809 (2) Urinary tract infection Current Visit: Yes Status: Acute Code(s): N39.0 - URINARY TRACT INFECTION, SITE NOT SPECIFIED SNOMED Code(s): 69674951 (3) Leukocytosis Current Visit: Yes Status: Acute Code(s): D72.829 - ELEVATED WHITE BLOOD CELL COUNT, UNSPECIFIED SNOMED Code(s): 194190093 (4) Acute sepsis Current Visit: Yes Status: Acute Code(s): A41.9 - SEPSIS, UNSPECIFIED ORGANISM SNOMED Code(s): 92196203
[2019-09-03] MEDS: SODIUM CHLORIDE 0.9% 1,000 ML IV SCH ×2 (04:11→21:00)
[2019-09-03] MEDS: ACETAMINOPHEN TAB 325 MG TAB PO PRN (06:10)
[2019-09-03] MEDS: LEVOTHYROXINE 100 MCG TAB PO SCH (06:10)
[2019-09-03] MEDS ORDERED: VANCOMYCIN TROUGH DUE 1 EACH MISC MISCELLANE ONE (07:00)
[2019-09-03 07:20] LABS: Glucose,Whole Blood 153 mg/dL (75-99)
[2019-09-03] MEDS: INSULIN ASPART (NovoLOG) 100 UNIT/ML VIAL SQ SCH ×7 (07:40→20:56)
[2019-09-03] MEDS: VANCOMYCIN 1,500 MG in SODIUM CHLORIDE 0.9% 250 ML IVPB SCH ×2 (08:46→23:35)
[2019-09-03] MEDS: METOPROLOL TARTRATE 25 MG TAB PO SCH ×2 (08:48→21:01)
[2019-09-03] MEDS: CARBIDOPA-LEVODOPA 25-100 MG 1 EACH TAB PO SCH ×3 (08:48→21:00)
[2019-09-03] MEDS: ALLOPURINOL 100 MG TAB PO SCH (08:48)
--- NOTE | 2019-09-03 11:03 | P.PN ---
Subjective 73-year-old male came in because of possible Infection as patient felt quite weak and lethargic found to have high-grade fever found to be septic with the lactic acidosis. Patient does take Lasix at home regimen of history of congestive heart failure. Patient does have Parkinson's and is on carbidopa levodopa for that. Patient lowered himself to Because of Generalized Weakness. Patient Chest X-Ray Did Not Show Pneumonia but Urine Is Significant Abnormality Patient Does Have History of UTI in the past Patient Has Enterococcus Which Is Resistant to Penicillin but Sensitive to Vancomycin. Patient Also Had MRSA UTI in the past. Urine Cultures Blood Cultures Were Obtained. 09/01/2019 Patient is lying in bed in no acute distress with no acute overnight issues. Patient states that he continues to feel weak and has been working with PT/OT. Infectious disease is following. Patient's blood cultures have resulted with presumptive MRSA and repeat blood cultures are pending at this time. Patient is currently on IV antibiotics in the form of ceftriaxone and vancomycin and will continue at this time. Patient denies any chest pain, shortness of breath, or palpitations. Patient has been afebrile. Patient denies any nausea or vomiting and is tolerating diet. Patient states that he has been falling more frequently at home in case management and social work are following for discharge planning as the patient may require rehab upon discharge. Will continue to monitor closely. 09/02/2019 Patient is lying in bed in no acute distress with no acute overnight issues. Repeat blood cultures have shown presumptive MRSA. Infectious disease is following. Patient is having some right knee pain an x-ray was done showing no fracture nor dislocation and joint spaces are normal with no signs of joint effusion. Patient is currently on IV antibiotics in the form of vancomycin and will continue at this time. Patient is on gentle IV hydration at 75mL/hr his creatinine is improving and is currently 1.56. White blood count is trending down and is currently 11.3. Will repeat a.m. labs. Cardiology is consulted and is pending at this time. Will continue to monitor vital signs and labs closely. 09/03/2019 Patient had persistent bacteremia will obtain ultrasound of the kidney to rule out any perinephric abscess along with the possible PE. Patient is feeling a bit better today. Afebrile. Constitutional: Denied any fatigue denied any fever. Cardio vascular: denied any chest pain, palpitations Gastrointestinal denied any nausea vomiting Pulmonary: Denied any shortness of breath cough Neurologic denied any new focal deficits All inpatient medications were reviewed and appropriate changes in these medications as dictated in the interval history and assessment and plan. Objective - Vital Signs Vital signs: Vital Signs Temp 98.2 F 09/03/19 07:00 Pulse 80 09/03/19 07:00 Resp 18 09/03/19 07:00 BP 144/72 09/03/19 07:00 Pulse Ox 94 L 09/03/19 07:00 Intake & Output 09/02/19 09/03/19 09/03/19 18:59 06:59 18:59 Intake Total 600 295 Output Total 200 Balance 600 95 Weight 98.5 kg Intake: Intake, IV Titration 95 Amount Sodium Chloride 0.9% 1, 95 000 ml @ 75 mls/hr IV . [id number] UMAIR Rx#:[id number] Oral 600 200 Output: Urine 200 Other: Voiding Method Toilet Urinal Urinal Urinal Diaper Diaper Incontinent Incontinent # Voids 3 1 - Exam - Exam GENERAL: The patient is alert and oriented x3,. Well developed, well nourished. HEENT: Pupils are round and equally reacting to light. EOMI. No scleral icterus. No conjunctival pallor. Normocephalic, atraumatic. No pharyngeal erythema. No thyromegaly. CARDIOVASCULAR: S1 and S2 present. No murmurs, rubs, or gallops. PULMONARY: Chest is clear to auscultation, no wheezing or crackles. ABDOMEN: Soft, nontender, nondistended, normoactive bowel sounds. No palpable organomegaly. MUSCULOSKELETAL: No joint swelling or deformity. Right knee pain EXTREMITIES: No cyanosis, clubbing, or pedal edema. NEUROLOGICAL: Gross neurological examination did not reveal any focal deficits. SKIN: No rashes. - Labs CBC & Chem 7: 09/02/19 06:52 09/02/19 06:52 Labs: Abnormal Lab Results - Last 24 Hours (Table) 09/02/19 09/02/19 09/02/19 Range/Units 11:40 16:40 21:09 POC Glucose (mg/dL) 166 H 141 H 122 H (75-99) mg/dL 09/03/19 Range/Units 07:08 POC Glucose (mg/dL) 153 H (75-99) mg/dL Microbiology - Last 24 Hours (Table) 08/31/19 22:29 Blood Culture Gram Stain - Final Blood Blood Culture - Final Methicillin resist S. aureus 08/31/19 01:55 Blood Culture Gram Stain - Final Blood Blood Culture - Final Methicillin resist S. aureus 08/31/19 02:48 Urine Culture - Preliminary Urine,Clean Catch Yeast species Assessment and Plan Plan: -Severe sepsis secondary to urinary tract infection patient is on IV fluids which will be continued since patient is receiving IV fluids Lasix will be held. Patient has MRSA bacteremia persistent will obtain SAL and also ultrasound of the kidney to rule out any perinephric abscess. Repeat blood cultures today and tomorrow -Extensive venous stasis dermatosis and bilateral pedal edema from venous stasis dermatosis Lasix will be held temporarily because of sepsis. -Type 2 diabetes mellitus continue with present regimen uncontrolled and elevated blood sugars titration of insulin depending on the blood sugars and sliding scale needs -Generalized weakness secondary to sepsis -Parkinson's -Hypothyroidism -COPD without any acute exacerbation -Acute kidney injury: From sepsis IV fluids as mentioned above and Lasix is contributing to his acute renal failure -Chronic kidney disease stage 2-3 -Diabetic peripheral neuropathy.
[2019-09-03 11:15] LABS: Glucose,Whole Blood 158 mg/dL (75-99)
--- NOTE | 2019-09-03 16:21 | US ---
EXAMINATION TYPE: US kidneys/renal and bladder DATE OF EXAM: 09/03/2019 COMPARISON: NONE CLINICAL HISTORY: 79-year-old male r/o perinephric abscess. TECHNIQUE: Multiple sonographic images of the kidneys and bladder are obtained. FINDINGS: WEB CONTENT MANAGER NOTES: Exam limitations due to body habitus. EXAM MEASUREMENTS: Right Kidney: 9.6 x 5.5 x 5.1 cm Left Kidney: 11.0 x 5.6 x 4.8 cm No hydronephrosis on either side. There is mild renal cortical thinning on both sides suggesting unde rlying chronic medical renal disease. Bladder: Suboptimal distention of the bladder limits its evaluation. Bilateral Jets seen: No IMPRESSION: No hydronephrosis. No perinephric fluid collection is identified.
[2019-09-03 17:01] LABS: Glucose,Whole Blood 150 mg/dL (75-99)
--- NOTE | 2019-09-03 20:17 | CONS ---
CONSULTATION Mr. Peterson is a 79-year-old male who was admitted with symptoms of progressive fatigue, fever and sepsis with positive blood cultures. He has been seen by Dr. Hinson in the past, had a prior history of atrial fibrillation status post cardioversion. The patient has urinary tract infection. Cardiology consultation was requested to rule out endocarditis. The patient denies any chest pain. His breathing has been stable. He denies any dizziness or palpitation. He has no recurrent arrhythmia. He had an echocardiogram performed in December of this year that was reported showing preserved systolic function and at that time, no significant valvular disease. Prior to cardioversion he had severely impaired left ventricular systolic function that improved. The patient is not very active physically. He has a history of Parkinson disease. He had multiple admissions to the hospital with the febrile episode. MEDICATION: At the time of admission included metoprolol tartrate 25 mg twice a day, lisinopril 40 mg daily, levothyroxine, insulin, furosemide 40 mg twice a day, Sinemet, albuterol, Ventolin. REVIEW OF SYSTEMS: RESPIRATORY SYSTEM: He has dyspnea on exertion. It has been chronic. No recent wheezing. GI SYSTEM: No recent GI bleeding. No peptic ulcer disease. SYSTEM: He has a history of urinary tract infection. NERVOUS SYSTEM: History of Parkinson's. PHYSICAL EXAMINATION: He is a 79-year-old male, alert, oriented, in no apparent distress. Blood pressure ranging between the 120s and 140s systolic with a heart rate in the 80s. HEAD: Normocephalic. EYES: Sclerae anicteric. NECK: Good carotid upstroke, no bruit. LUNGS: With decreased air exchange. No wheezes. HEART: Regular rate and rhythm. S1, S2. No S3 with a systolic ejection murmur. No diastolic murmur. ABDOMEN: Soft, nontender. Positive bowel sounds. No organomegaly. Obese. EXTREMITIES: With chronic dermatitis and chronic stasis. LAB DATA: Lab data revealed a BUN and creatinine 22 and 1.56. Potassium 3.8, hemoglobin of 11.1. EKG revealed a sinus mechanism. Chest x-ray performed on admission revealed there is clearing of the infiltrate of the left lower lobe in comparison. IMPRESSION: 1. Evidence of infectious process with persistent bacteremia. 2. History off Parkinson's disease. 3. History of atrial fibrillation in the past, status post cardioversion, remains sinus mechanism. 4. History of chronic obstructive lung disease. 5. Chronic kidney disease. 6. Hypertension. RECOMMENDATION: Patient will scheduled to undergo transesophageal echocardiogram by Dr. Yu Hinson on Thursday. I have discussed with the patient the finding. Depending on his progress, further recommendation will be made. Thank you for this consult. We will follow with you. MMODL / IJN: [id number] /
[2019-09-03 20:51] LABS: Glucose,Whole Blood 124 mg/dL (75-99)
[2019-09-03] MEDS: INSULIN DETEMIR (LEVEMIR) 100 UNIT/ML SYR SQ SCH (20:56)
[2019-09-04] MEDS: LEVOTHYROXINE 100 MCG TAB PO SCH (05:17)
[2019-09-04 06:38] LABS: HCT 32.1 % (39.0-53.0); HGB 10.4 gm/dL (13.0-17.5); MCH 30.8 pg (25.0-35.0); MCHC 32.4 g/dL (31.0-37.0); Mean Platelet Volume 7.7; Platelet Count 192 k/uL (150-450); RBC 3.38 m/uL (4.30-5.90); RDW 13.2 % (11.5-15.5); WBC 8.8 k/uL (3.8-10.6)
[2019-09-04 06:55] LABS: Calcium 8.1 mg/dL (8.4-10.2); Potassium 3.8 mmol/L (3.5-5.1)
[2019-09-04] MEDS: INSULIN ASPART (NovoLOG) 100 UNIT/ML VIAL SQ SCH ×7 (07:21→21:19)
[2019-09-04 07:25] LABS: Glucose,Whole Blood 151 mg/dL (75-99)
[2019-09-04] MEDS: METOPROLOL TARTRATE 25 MG TAB PO SCH ×2 (07:58→21:22)
[2019-09-04] MEDS: ALLOPURINOL 100 MG TAB PO SCH (07:58)
[2019-09-04] MEDS: CARBIDOPA-LEVODOPA 25-100 MG 1 EACH TAB PO SCH ×3 (07:58→21:22)
[2019-09-04] MEDS: SODIUM CHLORIDE 0.9% 1,000 ML IV SCH ×2 (07:59→23:54)
--- NOTE | 2019-09-04 09:40 | P.PN ---
Subjective 73-year-old male came in because of possible Infection as patient felt quite weak and lethargic found to have high-grade fever found to be septic with the lactic acidosis. Patient does take Lasix at home regimen of history of congestive heart failure. Patient does have Parkinson's and is on carbidopa levodopa for that. Patient lowered himself to Because of Generalized Weakness. Patient Chest X-Ray Did Not Show Pneumonia but Urine Is Significant Abnormality Patient Does Have History of UTI in the past Patient Has Enterococcus Which Is Resistant to Penicillin but Sensitive to Vancomycin. Patient Also Had MRSA UTI in the past. Urine Cultures Blood Cultures Were Obtained. 09/01/2019 Patient is lying in bed in no acute distress with no acute overnight issues. Patient states that he continues to feel weak and has been working with PT/OT. Infectious disease is following. Patient's blood cultures have resulted with presumptive MRSA and repeat blood cultures are pending at this time. Patient is currently on IV antibiotics in the form of ceftriaxone and vancomycin and will continue at this time. Patient denies any chest pain, shortness of breath, or palpitations. Patient has been afebrile. Patient denies any nausea or vomiting and is tolerating diet. Patient states that he has been falling more frequently at home in case management and social work are following for discharge planning as the patient may require rehab upon discharge. Will continue to monitor closely. 09/02/2019 Patient is lying in bed in no acute distress with no acute overnight issues. Repeat blood cultures have shown presumptive MRSA. Infectious disease is following. Patient is having some right knee pain an x-ray was done showing no fracture nor dislocation and joint spaces are normal with no signs of joint effusion. Patient is currently on IV antibiotics in the form of vancomycin and will continue at this time. Patient is on gentle IV hydration at 75mL/hr his creatinine is improving and is currently 1.56. White blood count is trending down and is currently 11.3. Will repeat a.m. labs. Cardiology is consulted and is pending at this time. Will continue to monitor vital signs and labs closely. 09/03/2019 Patient had persistent bacteremia will obtain ultrasound of the kidney to rule out any perinephric abscess along with the possible endocarditis. Patient is feeling a bit better today. Afebrile. 09/04/2019 Blood cultures from yesterday were negative. Patient will undergo SAL tomorrow ultrasound of the kidney did not show any perinephric abscess. Patient is feeling a little stronger today Constitutional: Denied any fatigue denied any fever. Cardio vascular: denied any chest pain, palpitations Gastrointestinal denied any nausea vomiting Pulmonary: Denied any shortness of breath cough Neurologic denied any new focal deficits All inpatient medications were reviewed and appropriate changes in these medications as dictated in the interval history and assessment and plan. Objective - Vital Signs Vital signs: Vital Signs Temp 98.7 F 09/04/19 07:00 Pulse 64 09/04/19 07:00 Resp 18 09/04/19 07:00 BP 158/76 09/04/19 07:00 Pulse Ox 94 L 09/04/19 07:00 Intake & Output 09/03/19 09/04/19 09/04/19 18:59 06:59 18:59 Intake Total 775 1150 Balance 775 1150 Intake: Intake, IV Titration 775 1150 Amount Sodium Chloride 0.9% 1, 525 900 000 ml @ 75 mls/hr IV . [id number] [facility] Rx#:[id number] Vancomycin 1,500 mg In 250 250 Sodium Chloride 0.9% 250 ml @ 125 mls/hr IVPB Q16H U[facility] Rx#:[id number] Other: Voiding Method Urinal Urinal Diaper Diaper Incontinent Incontinent # Voids 3 2 - Exam - Exam GENERAL: The patient is alert and oriented x3,. Well developed, well nourished. HEENT: Pupils are round and equally reacting to light. EOMI. No scleral icterus. No conjunctival pallor. Normocephalic, atraumatic. No pharyngeal erythema. No thyromegaly. CARDIOVASCULAR: S1 and S2 present. No murmurs, rubs, or gallops. PULMONARY: Chest is clear to auscultation, no wheezing or crackles. ABDOMEN: Soft, nontender, nondistended, normoactive bowel sounds. No palpable organomegaly. MUSCULOSKELETAL: No joint swelling or deformity. Right knee pain EXTREMITIES: No cyanosis, clubbing, or pedal edema. NEUROLOGICAL: Gross neurological examination did not reveal any focal deficits. SKIN: No rashes. - Labs CBC & Chem 7: 09/04/19 05:54 09/04/19 05:54 Labs: Abnormal Lab Results - Last 24 Hours (Table) 09/03/19 09/03/19 09/03/19 Range/Units 11:02 16:50 20:39 RBC (4.30-5.90) m/uL Hgb (13.0-17.5) gm/dL Hct (39.0-53.0) % Chloride (98-107) mmol/L Creatinine (0.66-1.25) mg/dL Glucose (74-99) mg/dL POC Glucose (mg/dL) 158 H 150 H 124 H (75-99) mg/dL Calcium (8.4-10.2) mg/dL 09/04/19 09/04/19 09/04/19 Range/Units 05:54 05:54 07:14 RBC 3.38 L (4.30-5.90) m/uL Hgb 10.4 L (13.0-17.5) gm/dL Hct 32.1 L (39.0-53.0) % Chloride 108 H (98-107) mmol/L Creatinine 1.43 H (0.66-1.25) mg/dL Glucose 140 H (74-99) mg/dL POC Glucose (mg/dL) 151 H (75-99) mg/dL Calcium 8.1 L (8.4-10.2) mg/dL Microbiology - Last 24 Hours (Table) 09/03/19 06:39 Blood Culture Gram Stain - Preliminary Blood 09/03/19 06:39 Blood Culture - Final Blood 08/31/19 02:48 Urine Culture - Final Urine,Clean Catch Summer glabrata Assessment and Plan Plan: -Severe sepsis secondary to MRSA bacteremia urinary tract infection can still be the source. Patient has MRSA bacteremia persistent will obtain SAL and also ultrasound of the kidney to rule out any perinephric abscess. Repeat blood cultures today . Last negative blood cultures from that is yesterday -Extensive venous stasis dermatosis and bilateral pedal edema from venous stasis dermatosis Lasix will be held temporarily because of sepsis. -Type 2 diabetes mellitus continue with present regimen uncontrolled and elevated blood sugars titration of insulin depending on the blood sugars and sliding scale needs -Generalized weakness secondary to sepsis -Parkinson's -Hypothyroidism -COPD without any acute exacerbation -Acute kidney injury: From sepsis IV fluids as mentioned above and Lasix is contributing to his acute renal failure -Chronic kidney disease stage 2-3 -Diabetic peripheral neuropathy.
[2019-09-04 12:20] LABS: Glucose,Whole Blood 136 mg/dL (75-99)
--- NOTE | 2019-09-04 12:37 | PN ---
PROGRESS NOTE Mr. Peterson is a 79-year-old male with a history of paroxysmal atrial fibrillation, prior history of cardiomyopathy who presented with progressive fatigue, fever and positive blood culture, possible urinary tract infection. Continues to have positive blood culture and because of that, recommendation. will be made regarding SAL that will be done tomorrow by Dr. Hinson. He is doing well this morning. He is denying any symptoms of chest discomfort. His breathing has been stable. He denies any dizziness or palpitation. He continues to be on albuterol, Sinemet, insulin, metoprolol tartrate 25 mg twice a day. PHYSICAL EXAMINATION: Blood pressure 158/70 with a heart rate in the 60s. LUNGS: Clear. HEART: S1, S2. No S3 with systolic murmur. No diastolic murmur. ABDOMEN: Soft, obese, nontender. EXTREMITIES: Chronic stasis with 1+ edema. LAB DATA: Lab data revealed a BUN and creatinine of 15 and 1.4. Potassium is 3.8. His blood culture has shown methicillin-resistant Staph aureus. IMPRESSION: 1. Bacteremia. 2. History of urinary tract infection. 3. Prior history of atrial fibrillation, remains sinus mechanism. 4. Prior history of cardiomyopathy, improved. RECOMMENDATION: His most recent blood culture was negative, but he will proceed with SAL by Dr. Hinson tomorrow to rule out any possible endocarditis. I have discussed with the patient those findings. He is in full understanding and agreement. MMODL / KIRTIN: [id number] /
[2019-09-04] MEDS: VANCOMYCIN 1,500 MG in SODIUM CHLORIDE 0.9% 250 ML IVPB SCH (15:18)
[2019-09-04 17:02] LABS: Glucose,Whole Blood 280 mg/dL (75-99)
[2019-09-04 21:05] LABS: Glucose,Whole Blood 159 mg/dL (75-99)
[2019-09-04] MEDS: INSULIN DETEMIR (LEVEMIR) 100 UNIT/ML SYR SQ SCH (21:19)
[2019-09-05] MEDS: LEVOTHYROXINE 100 MCG TAB PO SCH (05:58)
[2019-09-05] MEDS ORDERED: VANCOMYCIN TROUGH DUE 1 EACH MISC MISCELLANE ONE (07:00)
[2019-09-05 07:16] LABS: Basophils # (A) 0.2 k/uL (0-0.2); Basophils % (A) 2 %; Eosinophils # (A) 0.1 k/uL (0-0.7); Eosinophils % (A) 1 %; HCT 31.4 % (39.0-53.0); HGB 10.4 gm/dL (13.0-17.5); Lymphocytes # (A) 1.6 k/uL (1.0-4.8); Lymphocytes % (A) 16 %; MCH 31.2 pg (25.0-35.0); MCHC 33.2 g/dL (31.0-37.0); Mean Platelet Volume 7.7; Monocytes # (A) 0.7 k/uL (0-1.0); Monocytes % (A) 7 %; Neutrophils # (A) 7.3 k/uL (1.3-7.7); Neutrophils % (A) 72 %; Platelet Count 215 k/uL (150-450); RBC 3.34 m/uL (4.30-5.90); RDW 13.1 % (11.5-15.5); WBC 10.1 k/uL (3.8-10.6)
[2019-09-05] MEDS: ALLOPURINOL 100 MG TAB PO SCH (07:16)
[2019-09-05] MEDS: CARBIDOPA-LEVODOPA 25-100 MG 1 EACH TAB PO SCH ×3 (07:16→22:18)
[2019-09-05] MEDS: METOPROLOL TARTRATE 25 MG TAB PO SCH ×2 (07:16→20:36)
[2019-09-05 07:19] LABS: Glucose,Whole Blood 218 mg/dL (75-99)
[2019-09-05] MEDS: VANCOMYCIN 1,500 MG in SODIUM CHLORIDE 0.9% 250 ML IVPB SCH (07:27)
[2019-09-05] MEDS: INSULIN ASPART (NovoLOG) 100 UNIT/ML VIAL SQ SCH ×7 (07:27→20:37)
[2019-09-05 07:30] LABS: Calcium 8.4 mg/dL (8.4-10.2); Potassium 3.8 mmol/L (3.5-5.1)
[2019-09-05] MEDS: SODIUM CHLORIDE 0.9% 1,000 ML IV SCH ×2 (11:57→20:37)
[2019-09-05 12:06] LABS: Glucose,Whole Blood 180 mg/dL (75-99)
[2019-09-05] MEDS ORDERED: fentaNYL (PF) 50 MCG/ML 2 ML AMP ONE (12:14)
[2019-09-05] MEDS ORDERED: MIDAZOLAM 2 MG/2 ML VIAL IV ONE (12:27)
[2019-09-05] MEDS ORDERED: fentaNYL (PF) 50 MCG/ML 2 ML AMP IV ONE (12:27)
[2019-09-05] MEDS ORDERED: BENZOCAINE SPRAY 1 CAN MUCOUS MEM ONE (12:27)
[2019-09-05] MEDS ORDERED: SODIUM CHLORIDE 0.9% 500 ML 500 ML IV ONE (12:39)
--- NOTE | 2019-09-05 15:05 | ECHOT ---
TRANSESOPHAGEAL ECHOCARDIOGRAM PREOPERATIVE DIAGNOSIS: Rule out endocarditis. POSTOPERATIVE DIAGNOSIS: Evidence of thrombus in left atrial appendage. PROCEDURE: Patient was given intravenous sedation with Versed and fentanyl and transesophageal echocardiogram was performed without any complications. Left ventricular chamber is normal in size with normal left ventricular systolic functions, mitral valve morphology is normal. There is evidence of smoke in the left atrium. There is about 1 cm size of thrombus noted in the left atrial appendage. There is a mild mitral regurgitation noted. Aortic valve is sclerotic and calcified, but there is no definite evidence of vegetations on mitral aortic or tricuspid valve. Color Doppler study shows evidence of mild degree of minimal aortic regurgitation and mild tricuspid regurgitation. Interatrial septum is intact. There is no evidence of any PFO. FINAL IMPRESSION: 1. There are sclerotic and calcific changes in the aortic leaflets without a definite evidence of vegetations on the aortic valve. There is no evidence of vegetations on mitral or tricuspid valve. 2. There is evidence of thrombus in the left atrial appendage. It is about 1 cm in size. 3. Left atrium is moderately enlarged. There is evidence of smoke in the left atrium. 4. Left ventricular systolic function is normal. 5. Interatrial septum is intact. RECOMMENDATIONS: We will strongly recommend patient to go on anticoagulation to prevent any made stroke in view of the evidence of thrombus in the left atrial appendage. MMODL / IJN: [id number] /
--- NOTE | 2019-09-05 15:32 | P.PN ---
Subjective Progress Note Date: 09/05/19 Principal diagnosis: 73-year-old male came in because of possible Infection as patient felt quite weak and lethargic found to have high-grade fever found to be septic with the lactic acidosis. Patient does take Lasix at home regimen of history of congestive heart failure. Patient does have Parkinson's and is on carbidopa levodopa for that. Patient lowered himself to Because of Generalized Weakness. Patient Chest X-Ray Did Not Show Pneumonia but Urine Is Significant Abnormality Patient Does Have History of UTI in the past Patient Has Enterococcus Which Is Resistant to Penicillin but Sensitive to Vancomycin. Patient Also Had MRSA UTI in the past. Urine Cultures Blood Cultures Were Obtained. 09/01/2019 Patient is lying in bed in no acute distress with no acute overnight issues. Patient states that he continues to feel weak and has been working with PT/OT. Infectious disease is following. Patient's blood cultures have resulted with presumptive MRSA and repeat blood cultures are pending at this time. Patient is currently on IV antibiotics in the form of ceftriaxone and vancomycin and will continue at this time. Patient denies any chest pain, shortness of breath, or palpitations. Patient has been afebrile. Patient denies any nausea or vomiting and is tolerating diet. Patient states that he has been falling more frequently at home in case management and social work are following for discharge planning as the patient may require rehab upon discharge. Will continue to monitor closely. 09/02/2019 Patient is lying in bed in no acute distress with no acute overnight issues. Repeat blood cultures have shown presumptive MRSA. Infectious disease is f ollowing. Patient is having some right knee pain an x-ray was done showing no fracture nor dislocation and joint spaces are normal with no signs of joint effusion. Patient is currently on IV antibiotics in the form of vancomycin and will continue at this time. Patient is on gentle IV hydration at 75mL/hr his creatinine is improving and is currently 1.56. White blood count is trending down and is currently 11.3. Will repeat a.m. labs. Cardiology is consulted and is pending at this time. Will continue to monitor vital signs and labs closely. 09/03/2019 Patient had persistent bacteremia will obtain ultrasound of the kidney to rule out any perinephric abscess along with the possible endocarditis. Patient is feeling a bit better today. Afebrile. 09/04/2019 Blood cultures from yesterday were negative. Patient will undergo SAL tomorrow ultrasound of the kidney did not show any perinephric abscess. Patient is feeling a little stronger today Constitutional: Denied any fatigue denied any fever. Cardio vascular: denied any chest pain, palpitations Gastrointestinal denied any nausea vomiting Pulmonary: Denied any shortness of breath cough Neurologic denied any new focal deficits 09/05/2019 Patient is lying in bed in no acute distress with no acute overnight issues. Patient is to undergo a SAL today around noon. Will await report. Patient is quite lethargic and continues to fall in and out of sleep while conversing. Currently patient denies any chest pain, shortness of breath, or palpitations. Patient is afebrile. Patient denies any nausea or vomiting and has been bryon erating diet. Patient states he is tired today. Blood cultures from yesterday have a preliminary reading of gram-positive cocci. Infectious disease is following. Will continue to monitor closely. Objective - Vital Signs Vital signs: Vital Signs Temp 98.9 F 09/05/19 14:02 Pulse 81 09/05/19 07:00 Resp 16 09/05/19 14:02 BP 164/92 09/05/19 14:02 Pulse Ox 90 L 09/05/19 14:02 Intake & Output 09/04/19 09/05/19 09/05/19 18:59 06:59 18:59 Intake Total 900 100 Output Total 200 Balance -200 900 100 Weight 125 kg Intake: IV 100 Intake, IV Titration 900 Amount Sodium Chloride 0.9% 1, 900 000 ml @ 75 mls/hr IV . [id number] [facility] Rx#:[id number] Output: Urine 200 Other: Voiding Method Urinal Urinal Diaper Diaper Incontinent Incontinent # Voids 3 1 - Exam GENERAL: The patient is alert and oriented x2-3,. Well developed, well nourished. Patient has parkinsonian tremor appears to be tired and fatigued HEENT: Pupils are round and equally reacting to light. EOMI. No scleral icterus. No conjunctival pallor. Normocephalic, atraumatic. No pharyngeal erythema. No thyromegaly. CARDIOVASCULAR: S1 and S2 present. No murmurs, rubs, or gallops. PULMONARY: Chest is clear to auscultation, no wheezing or crackles. ABDOMEN: Soft, nontender, nondistended, normoactive bowel sounds. No palpable organomegaly. MUSCULOSKELETAL: No joint swelling or deformity. EXTREMITIES: No cyanosis, clubbing, or pedal edema. NEUROLOGICAL: Gross neurological examination did not reveal any focal deficits. SKIN: No rashes. - Labs CBC & Chem 7: 09/05/19 06:35 09/05/19 06:35 Labs: Abnormal Lab Results - Last 24 Hours (Table) 09/04/19 09/04/19 09/05/19 Range/Units 16:49 20:52 06:35 RBC (4.30-5.90) m/uL Hgb (13.0-17.5) gm/dL Hct (39.0-53.0) % Chloride 108 H (98-107) mmol/L Creatinine 1.30 H (0.66-1.25) mg/dL Glucose 201 H (74-99) mg/dL POC Glucose (mg/dL) 280 H 159 H (75-99) mg/dL 09/05/19 09/05/19 09/05/19 Range/Units 06:35 07:07 11:54 RBC 3.34 L (4.30-5.90) m/uL Hgb 10.4 L (13.0-17.5) gm/dL Hct 31.4 L (39.0-53.0) % Chloride (98-107) mmol/L Creatinine (0.66-1.25) mg/dL Glucose (74-99) mg/dL POC Glucose (mg/dL) 218 H 180 H (75-99) mg/dL Microbiology - Last 24 Hours (Table) 09/04/19 05:54 Blood Culture Gram Stain - Preliminary Blood 08/31/19 02:48 Urine Culture - Final Urine,Clean Catch Summer glabrata 09/03/19 06:39 Blood Culture Gram Stain - Preliminary Blood Blood Culture - Preliminary Presumptive MRSA 08/31/19 22:29 Blood Culture Gram Stain - Final Blood Blood Culture - Final Methicillin resist S. aureus 08/31/19 22:03 Blood Culture Gram Stain - Final Blood Blood Culture - Final Methicillin resist S. aureus 09/04/19 05:54 Blood Culture - Final Blood Assessment and Plan Assessment: -Severe sepsis secondary to urinary tract infection patient is on IV fluids whic h will be continued since patient is receiving IV fluids Lasix will be held. For urinary tract infection we'll use vancomycin because of his previous cultures in the urine that is positive for Enterococcus faecalis which is assisted Vanco resistant to penicillins in the to cover gram-negative organisms. Infectious disease is following because of complicated UTI and sepsis. Blood cultures thus far showing presumptive MRSA and will obtain repeat blood cultures. Repeat blood cultures preliminary are showing gram-positive cocci will await culture finalization. -Extensive venous stasis dermatosis and bilateral pedal edema from venous stasis dermatosis Lasix will be held temporarily because of sepsis. Continue with IV fluids -Type 2 diabetes mellitus continue with present regimen uncontrolled and elevated blood sugars titration of insulin depending on the blood sugars and sliding scale needs -Generalized weakness secondary to sepsis -Parkinson's -Hypothyroidism -COPD without any acute exacerbation -Acute kidney injury: From sepsis IV fluids as mentioned above and Lasix is contributing to his acute renal failure -Chronic kidney disease stage 2-3 -Diabetic peripheral neuropathy. Recommendations and discussion: Recommend to continue current medications, management, and symptomatic treatment. Infectious disease is following. SAL is scheduled for this afternoon around 12 and will await report. Patient will continue on IV antibiotics in the form of vancomycin at this time. Will continue to monitor closely. Will repeat a.m. labs. Case management and social media marketing specialist following as well for possible placement once patient is discharged. Patient may likely need IV antibiotics as well as continue PT/OT therapy for strengthening mobility. Further recommendations to follow.
[2019-09-05] MEDS: DAPTOmycin 750 MG in SODIUM CHLORIDE 0.9% 50 ML IVPB SCH (15:37)
[2019-09-05 17:37] LABS: Glucose,Whole Blood 119 mg/dL (75-99)
[2019-09-05 20:04] LABS: Glucose,Whole Blood 156 mg/dL (75-99)
[2019-09-05] MEDS: ACETAMINOPHEN TAB 325 MG TAB PO PRN (20:36)
[2019-09-05] MEDS: INSULIN DETEMIR (LEVEMIR) 100 UNIT/ML SYR SQ SCH (20:37)
[2019-09-05] MEDS: APIXABAN 5 MG TAB PO SCH (20:37)
[2019-09-05] MEDS ORDERED: VANCOMYCIN 1,750 MG in SODIUM CHLORIDE 0.9% 500 ML 500 ML IVPB SCH (22:00)
--- NOTE | 2019-09-05 22:50 | P.PN ---
Subjective Progress Note Date: 09/05/19 79-year-old male who lives in the family home with his spouse and grandchildren relates that he's been feeling poorly for a few days. He became very weak and actually lowered himself to the ground because he was so weak. EMS was called and he was brought to hospital. He was on evidence of a fever as well as leukocytosis and feeling quite poorly. Patient has a long-standing history of Parkinson's and is a limited historian. He denies severe pain at this time. 09/02/2019 patient remains a poor historian but he is a bit stronger and may have sitting up in the chair. He has no significant complaints. 09/05/2019 patient remains fatigued and feels ill but has been able to sit up in a chair, denies fevers or chills. SAL has now been performed. Objective - Vital Signs Vital signs: Vital Signs Temp 100.2 F H 09/05/19 20:07 Pulse 81 09/05/19 07:00 Resp 19 09/05/19 22:44 BP 183/75 09/05/19 20:07 Pulse Ox 97 09/05/19 20:07 Intake & Output 09/05/19 09/05/19 09/06/19 06:59 18:59 06:59 Intake Total 900 100 Balance 900 100 Weight 125 kg Intake: IV 100 Intake, IV Titration 900 Amount Sodium Chloride 0.9% 1, 900 000 ml @ 75 mls/hr IV . [id number] [facility] Rx#:[id number] Other: Voiding Method Urinal Urinal Diaper Diaper Incontinent Incontinent # Voids 3 1 0 - Exam 79-year-old male who seems to be comfortable, he was arousable but is noted is a very poor historian. HEENT: Anicteric conjunctiva are pink and moist nasal mucosa grossly intact without significant lesions, there is no thrush. Has dentures Neck: The neck is supple without significant lymphadenopathy or thyromegaly. Lungs: There is symmetrical bilateral air entry with few crackles at the bases no sniffy and wheezing Heart: Irregular with a soft S4. No murmur click or rub Abdomen: Mildly obese, Positive bowel sounds soft and nontender without palpable masses or organomegaly. There was no guarding or rebound. Extremities: The upper extremities have excellent pulses they are symmetric, no significant petechiae or telangiectasia. No splinter hemorrhages were noted. Lower extremities have evidence of extensive bilateral lower extremity edema, skin is thickened toenails are untrimmed no open ulcerations are seen Neuro: Arousable poor historian but was able to move extremities upon stimulation. - Labs CBC & Chem 7: 09/05/19 06:35 09/05/19 06:35 Labs: Abnormal Lab Results - Last 24 Hours (Table) 09/05/19 09/05/19 09/05/19 Range/Units 06:35 06:35 07:07 RBC 3.34 L (4.30-5.90) m/uL Hgb 10.4 L (13.0-17.5) gm/dL Hct 31.4 L (39.0-53.0) % Chloride 108 H (98-107) mmol/L Creatinine 1.30 H (0.66-1.25) mg/dL Glucose 201 H (74-99) mg/dL POC Glucose (mg/dL) 218 H (75-99) mg/dL 09/05/19 09/05/19 09/05/19 Range/Units 11:54 17:26 20:02 RBC (4.30-5.90) m/uL Hgb (13.0-17.5) gm/dL Hct (39.0-53.0) % Chloride (98-107) mmol/L Creatinine (0.66-1.25) mg/dL Glucose (74-99) mg/dL POC Glucose (mg/dL) 180 H 119 H 156 H (75-99) mg/dL Microbiology - Last 24 Hours (Table) 09/03/19 06:39 Blood Culture Gram Stain - Final Blood Blood Culture - Final Methicillin resist S. aureus 09/04/19 05:54 Blood Culture Gram Stain - Preliminary Blood 08/31/19 02:48 Urine Culture - Final Urine,Clean Catch Summer glabrata 08/31/19 22:29 Blood Culture Gram Stain - Final Blood Blood Culture - Final Methicillin resist S. aureus 08/31/19 22:03 Blood Culture Gram Stain - Final Blood Blood Culture - Final Methicillin resist S. aureus 09/04/19 05:54 Blood Culture - Final Blood Laboratory Results WBC 10.1 k/uL (3.8-10.6) 09/05/19 06:35 RBC 3.34 m/uL (4.30-5.90) L 09/05/19 06:35 Hgb 10.4 gm/dL (13.0-17.5) L 09/05/19 06:35 Hct 31.4 % (39.0-53.0) L 09/05/19 06:35 MCV 94.0 fL (80.0-100.0) 09/05/19 06:35 MCH 31.2 pg (25.0-35.0) 09/05/19 06:35 MCHC 33.2 g/dL (31.0-37.0) 09/05/19 06:35 RDW 13.1 % (11.5-15.5) 09/05/19 06:35 Plt Count 215 k/uL (150-450) 09/05/19 06:35 Neutrophils % 72 % 09/05/19 06:35 Lymphocytes % 16 % 09/05/19 06:35 Monocytes % 7 % 09/05/19 06:35 Eosinophils % 1 % 09/05/19 06:35 Basophils % 2 % 09/05/19 06:35 Neutrophils # 7.3 k/uL (1.3-7.7) 09/05/19 06:35 Lymphocytes # 1.6 k/uL (1.0-4.8) 09/05/19 06:35 Monocytes # 0.7 k/uL (0-1.0) 09/05/19 06:35 Eosinophils # 0.1 k/uL (0-0.7) 09/05/19 06:35 Basophils # 0.2 k/uL (0-0.2) 09/05/19 06:35 PT 10.4 sec (9.0-12.0) 08/31/19 01:55 INR 1.0 (<1.2) 08/31/19 01:55 APTT 22.1 sec (22.0-30.0) 08/31/19 01:55 Sodium 139 mmol/L (137-145) 09/05/19 06:35 Potassium 3.8 mmol/L (3.5-5.1) 09/05/19 06:35 Chloride 108 mmol/L (98-107) H 09/05/19 06:35 Carbon Dioxide 22 mmol/L (22-30) 09/05/19 06:35 Anion Gap 9 mmol/L 09/05/19 06:35 BUN 13 mg/dL (9-20) 09/05/19 06:35 Creatinine 1.30 mg/dL (0.66-1.25) H 09/05/19 06:35 Est GFR (CKD-EPI)AfAm 61 (>60 ml/min/1.73 sqM) 09/05/19 06:35 Est GFR (CKD-EPI)NonAf 52 (>60 ml/min/1.73 sqM) 09/05/19 06:35 Glucose 201 mg/dL (74-99) H 09/05/19 06:35 POC Glucose (mg/dL) 156 mg/dL (75-99) H 09/05/19 20:02 POC Glu Model Maker ID Melquiades Mandujano 09/05/19 20:[address] Glu mg/dL 206 09/01/19 06:30 Hemoglobin A1c 8.8 % (4.0-6.0) H 09/01/19 06:30 Lactic Ac Sepsis Rflx Y 08/31/19 02:45 Plasma Lactic Acid Riley 0.8 mmol/L (0.7-2.0) 08/31/19 06:37 Calcium 8.4 mg/dL (8.4-10.2) 09/05/19 06:35 Total Bilirubin 0.8 mg/dL (0.2-1.3) 08/31/19 01:55 AST 15 U/L (17-59) L 08/31/19 01:55 ALT 21 U/L (21-72) 08/31/19 01:55 Alkaline Phosphatase 133 U/L (38-126) H 08/31/19 01:55 Troponin I 0.018 ng/mL (0.000-0.034) 08/31/19 01:55 Total Protein 6.2 g/dL (6.3-8.2) L 08/31/19 01:55 Albumin 3.3 g/dL (3.5-5.0) L 08/31/19 01:55 Urine Color Yellow 08/31/19 02:48 Urine Appearance Cloudy (Clear) 08/31/19 02:48 Urine pH 5.5 (5.0-8.0) 08/31/19 02:48 Ur Specific [place] 1.015 (1.001-1.035) 08/31/19 02:48 Urine Protein 1+ (Negative) H 08/31/19 02:48 Urine Glucose (UA) 2+ (Negative) H 08/31/19 02:48 Urine Ketones Negative (Negative) 08/31/19 02:48 Urine Blood Trace (Negative) H 08/31/19 02:48 Urine Nitrite Negative (Negative) 08/31/19 02:48 Urine Bilirubin Negative (Negative) 08/31/19 02:48 Urine Urobilinogen <2.0 mg/dL (<2.0) 08/31/19 02:48 Ur Leukocyte Esterase Large (Negative) H 08/31/19 02:48 Urine RBC 2 /hpf (0-5) 08/31/19 02:48 Urine WBC 176 /hpf (0-5) H 08/31/19 02:48 Urine WBC Clumps Many /hpf (None) H 08/31/19 02:48 Ur Squamous Epith Cells <1 /hpf (0-4) 08/31/19 02:48 Urine Bacteria Rare /hpf (None) H 08/31/19 02:48 Hyaline Casts 3 /lpf (0-2) H 08/31/19 02:48 Urine Mucus Rare /hpf (None) H 08/31/19 02:48 Urine Yeast (Budding) Few /hpf (None) H 08/31/19 02:48 Vancomycin Trough 14.9 ug/mL 09/05/19 06:35 Influenza Type A RNA Not Detected (Not Detectd) 08/31/19 01:55 Influenza Type B (PCR) Not Detected (Not Detectd) 08/31/19 01:55 Microbiology 09/03/19 06:39 Blood Blood Culture Gram Stain - Final 09/03/19 06:39 Blood Blood Culture - Final Methicillin resist S. aureus 09/04/19 05:54 Blood Blood Culture Gram Stain - Preliminary 08/31/19 02:48 Urine,Clean Catch Urine Culture - Final Summer glabrata 08/31/19 22:29 Blood Blood Culture Gram Stain - Final 08/31/19 22:29 Blood Blood Culture - Final Methicillin resist S. aureus 08/31/19 22:03 Blood Blood Culture Gram Stain - Final 08/31/19 22:03 Blood Blood Culture - Final Methicillin resist S. aureus 09/04/19 05:54 Blood Blood Culture - Final 09/03/19 06:39 Blood Blood Culture - Final 08/31/19 01:55 Blood Blood Culture Gram Stain - Final 08/31/19 01:55 Blood Blood Culture - Final Methicillin resist S. aureus 08/31/19 22:03 Blood Blood Culture - Final 08/31/19 22:29 Blood Blood Culture - Final 08/31/19 01:55 Blood Blood Culture - Final - Imaging and Cardiology SAL has been performed without evidence of acute evidence of endocarditis clot in the left atrium is noted. Assessment and Plan (1) Bacteremia Narrative/Plan: 79-year-old male who has a history of diabetes, Parkinson's disease and history of bladder cancer that has been treated with surgical intervention as well as intravesicular treatment. He now presents with a worsening of his status showing evidence of a high-grade fever, leukocytosis, elevated lactic acid which are all consistent with recurrent sepsis from urinary system in this debilitated gentleman. Antibiotic therapy was begun with vancomycin based on his recent urine cultures that showed evidence of MRSA and enterococcus that was not vancomycin resistant. There is evidence of the positive blood culture with gram-positive cocci. The patient has had an echocardiogram done earlier this year without evidence of any severe valvular disease. At this time with continued vancomycin therapy. Will request follow blood cultures to be performed to evaluate clearance of bacteremia with treatment of antibiotic therapy. With the development of bacteremia will need outpatient intravenous antibiotic therapy. The lower extremities evidence of chronic edema but there does not appear to be any open ulcerations or cellulitis, local care with elevation and compression stockings could be helpful. 09/02/2019 patient is bit stronger, but has evidence of ongoing positive blood cultures. Conservatively to urinary source and ultrasound of the kidneys has been requested to evaluate for any type of obstruction problem or renal abscess. Also perinephric abscess. By November vancomycin continues. We'll follow blood cultures again tomorrow to see be certain occurs bacteremia with therapy. He 15 feels slightly better but still has ongoing acute illness at this time. 09/05/2019 the patient remains chronically ill feeling somewhat poorly. He is having improvement of his fever but there remains ongoing positive blood cultures. With this we'll transition vancomycin to daptomycin and high-dose. We'll monitor a weekly CK level. Once we have clearance of his bacteremia will need some type of IV access to allow treatment post hospital stay. The etiology of the ongoing bacteremia could be the clots within the left atrium and may require a longer time for clearance of his bacteremia. There is no evidence of any urinary source as noted by the relatively normal renal ultrasound. Patient does feel somewhat better than admission and hopefully be able to start with the discharge plan. Current Visit: Yes Status: Acute Code(s): R78.81 - BACTEREMIA SNOMED Code(s): 9810212 (2) Urinary tract infection Current Visit: Yes Status: Acute Code(s): N39.0 - URINARY TRACT INFECTION, SITE NOT SPECIFIED SNOMED Code(s): 47346147 (3) Leukocytosis Current Visit: Yes Status: Acute Code(s): D72.829 - ELEVATED WHITE BLOOD CELL COUNT, UNSPECIFIED SNOMED Code(s): 146103801 (4) Acute sepsis Current Visit: Yes Status: Acute Code(s): A41.9 - SEPSIS, UNSPECIFIED ORGANISM SNOMED Code(s): 22772699
[2019-09-06] MEDS: LEVOTHYROXINE 100 MCG TAB PO SCH (06:25)
[2019-09-06 07:12] LABS: Glucose,Whole Blood 75 mg/dL (75-99)
[2019-09-06] MEDS: INSULIN ASPART (NovoLOG) 100 UNIT/ML VIAL SQ SCH ×7 (07:18→21:09)
[2019-09-06] MEDS: METOPROLOL TARTRATE 25 MG TAB PO SCH ×2 (08:36→21:08)
[2019-09-06] MEDS: CARBIDOPA-LEVODOPA 25-100 MG 1 EACH TAB PO SCH ×3 (08:36→21:09)
[2019-09-06] MEDS: APIXABAN 5 MG TAB PO SCH ×2 (08:36→21:08)
[2019-09-06] MEDS: ALLOPURINOL 100 MG TAB PO SCH (08:36)
[2019-09-06 10:01] LABS: Calcium 8.1 mg/dL (8.4-10.2); Potassium 3.3 mmol/L (3.5-5.1)
[2019-09-06 10:10] LABS: Basophils # (A) 0.1 k/uL (0-0.2); Basophils % (A) 1 %; Eosinophils # (A) 0.2 k/uL (0-0.7); Eosinophils % (A) 2 %; HCT 30.8 % (39.0-53.0); HGB 10.1 gm/dL (13.0-17.5); Lymphocytes # (A) 1.5 k/uL (1.0-4.8); Lymphocytes % (A) 14 %; MCHC 32.7 g/dL (31.0-37.0); MCV 94.6 fL (80.0-100.0); Mean Platelet Volume 7.2; Monocytes # (A) 0.6 k/uL (0-1.0); Monocytes % (A) 6 %; Neutrophils # (A) 7.8 k/uL (1.3-7.7); Neutrophils % (A) 75 %; Platelet Count 272 k/uL (150-450); RBC 3.25 m/uL (4.30-5.90); RDW 13.5 % (11.5-15.5); WBC 10.4 k/uL (3.8-10.6)
[2019-09-06] MEDS ORDERED: POTASSIUM CHLORIDE ER 20 MEQ TAB.ER PO STA (11:18)
--- NOTE | 2019-09-06 11:24 | P.PN ---
Subjective This is a pleasant 79-year-old male past medical history significant for paroxysmal atrial fibrillation not previously on long-term anticoagulation secondary to patient refusal, history of cardiomyopathy who presented to the hospital with progressive dyspnea fever and positive blood cultures currently being treated for urinary tract infection. He underwent a SAL yesterday with Dr. Hinson revealing sclerotic and ossific changes in the aortic leaflets without a definite evidence of vegetation on the aortic, mitral or tricuspid valve. Evidence of thrombus in the left atrial appendage about 1 cm in size, moderately enlarged left atrium LV systolic function normal. Lengthy discussion had with the patient's yesterday afternoon and she is agreeable to long- term anticoagulation at this time. Patient is seen and examined resting comfortably sleeping in no acute distress. He denies chest pain, shortness of breath, dizziness or palpitations. Blood pressure 172/73 heart rate 68 afebrile with evidence of hypoxia on room air, oxygen applied. Laboratory data reviewed, WBC 10.4, alkaline 10.1, platelet 272, sodium 141, potassium 3.3, creatinine 1.22. Currently maintained on eliquis 5 mg BID and lopressor 25 mg BID. GENERAL: Well-appearing, well-nourished and in no acute distress. Obese. NECK: Supple without JVD or thyromegaly. LUNGS: Breath sounds clear to auscultation bilaterally. Respiration equal and unlabored. No wheezes, rales or rhonchi. HEART: Regular rate and rhythm with systolic ejection murmur, no rubs or gallops. S1 and S2 heard. EXTREMITIES: Normal range of motion, bilateral lower extremity 1+ pitting edema. No clubbing or cyanosis. Peripheral pulses intact. ASSESSMENT Bacteremia Left atrial appendage thrombus Sepsis secondary to urinary tract infection Paroxysmal atrial fibrillation, maintaining sinus mechanism currently Lactic acidosis, resolved Acute kidney injury, resolved Hypokalemia Hypertension PLAN Continue eliquis. Coverage has been checked and this [facility] formulary [facility]. Resume lisinopril as previously ordered. Replace potassium. Ongoing medical management. Nurse Practitioner note has been reviewed, I agree with a documented findings and plan of care. Patient was seen and examined. Objective - Vital Signs Vital signs: Vital Signs Temp 98.3 F 09/06/19 07:00 Pulse 68 09/06/19 07:00 Resp 17 09/06/19 09:15 BP 172/73 09/06/19 07:00 Pulse Ox 84 L 09/06/19 07:00 Intake & Output 09/05/19 09/06/19 09/06/19 18:59 06:59 18:59 Intake Total 100 Balance 100 Weight 123.5 kg Intake: IV 100 Other: Voiding Method Urinal Urinal Diaper Diaper Incontinent Incontinent # Voids 1 0 - Labs CBC & Chem 7: 09/06/19 07:19 09/06/19 07:19 Labs: Abnormal Lab Results - Last 24 Hours (Table) 09/05/19 09/05/19 09/05/19 Range/Units 11:54 17:26 20:02 RBC (4.30-5.90) m/uL Hgb (13.0-17.5) gm/dL Hct (39.0-53.0) % Neutrophils # (1.3-7.7) k/uL Potassium (3.5-5.1) mmol/L Chloride (98-107) mmol/L POC Glucose (mg/dL) 180 H 119 H 156 H (75-99) mg/dL Calcium (8.4-10.2) mg/dL 09/06/19 09/06/19 Range/Units 07:19 07:19 RBC 3.25 L (4.30-5.90) m/uL Hgb 10.1 L (13.0-17.5) gm/dL Hct 30.8 L (39.0-53.0) % Neutrophils # 7.8 H (1.3-7.7) k/uL Potassium 3.3 L (3.5-5.1) mmol/L Chloride 109 H (98-107) mmol/L POC Glucose (mg/dL) (75-99) mg/dL Calcium 8.1 L (8.4-10.2) mg/dL Microbiology - Last 24 Hours (Table) 09/04/19 05:54 Blood Culture Gram Stain - Preliminary Blood Blood Culture - Preliminary Presumptive MRSA 09/03/19 06:39 Blood Culture Gram Stain - Final Blood Blood Culture - Final Methicillin resist S. aureus 08/31/19 02:48 Urine Culture - Final Urine,Clean Catch Summer glabrata 08/31/19 22:29 Blood Culture Gram Stain - Final Blood Blood Culture - Final Methicillin resist S. aureus 08/31/19 22:03 Blood Culture Gram Stain - Final Blood Blood Culture - Final Methicillin resist S. aureus 09/04/19 05:54 Blood Culture - Final Blood
[2019-09-06 12:04] LABS: Glucose,Whole Blood 107 mg/dL (75-99)
[2019-09-06] MEDS: LISINOPRIL 20 MG TAB PO SCH (12:15)
[2019-09-06] MEDS ORDERED: ONDANSETRON 4 MG/2 ML VIAL IVP PRN (13:39)
[2019-09-06] MEDS ORDERED: BISACODYL 5 MG TABLET.DR PO PRN (14:10)
--- NOTE | 2019-09-06 14:32 | P.PN ---
Subjective Progress Note Date: 09/06/19 Principal diagnosis: 73-year-old male came in because of possible Infection as patient felt quite weak and lethargic found to have high-grade fever found to be septic with the lactic acidosis. Patient does take Lasix at home regimen of history of congestive heart failure. Patient does have Parkinson's and is on carbidopa levodopa for that. Patient lowered himself to Because of Generalized Weakness. Patient Chest X-Ray Did Not Show Pneumonia but Urine Is Significant Abnormality Patient Does Have History of UTI in the past Patient Has Enterococcus Which Is Resistant to Penicillin but Sensitive to Vancomycin. Patient Also Had MRSA UTI in the past. Urine Cultures Blood Cultures Were Obtained. 09/01/2019 Patient is lying in bed in no acute distress with no acute overnight issues. Patient states that he continues to feel weak and has been working with PT/OT. Infectious disease is following. Patient's blood cultures have resulted with presumptive MRSA and repeat blood cultures are pending at this time. Patient is currently on IV antibiotics in the form of ceftriaxone and vancomycin and will continue at this time. Patient denies any chest pain, shortness of breath, or palpitations. Patient has been afebrile. Patient denies any nausea or vomiting and is tolerating diet. Patient states that he has been falling more frequently at home in case management and social work are following for discharge planning as the patient may require rehab upon discharge. Will continue to monitor closely. 09/02/2019 Patient is lying in bed in no acute distress with no acute overnight issues. Repeat blood cultures have shown presumptive MRSA. Infectious disease is f ollowing. Patient is having some right knee pain an x-ray was done showing no fracture nor dislocation and joint spaces are normal with no signs of joint effusion. Patient is currently on IV antibiotics in the form of vancomycin and will continue at this time. Patient is on gentle IV hydration at 75mL/hr his creatinine is improving and is currently 1.56. White blood count is trending down and is currently 11.3. Will repeat a.m. labs. Cardiology is consulted and is pending at this time. Will continue to monitor vital signs and labs closely. 09/03/2019 Patient had persistent bacteremia will obtain ultrasound of the kidney to rule out any perinephric abscess along with the possible endocarditis. Patient is feeling a bit better today. Afebrile. 09/04/2019 Blood cultures from yesterday were negative. Patient will undergo SAL tomorrow ultrasound of the kidney did not show any perinephric abscess. Patient is feeling a little stronger today Constitutional: Denied any fatigue denied any fever. Cardio vascular: denied any chest pain, palpitations Gastrointestinal denied any nausea vomiting Pulmonary: Denied any shortness of breath cough Neurologic denied any new focal deficits 09/05/2019 Patient is lying in bed in no acute distress with no acute overnight issues. Patient is to undergo a SAL today around noon. Will await report. Patient is quite lethargic and continues to fall in and out of sleep while conversing. Currently patient denies any chest pain, shortness of breath, or palpitations. Patient is afebrile. Patient denies any nausea or vomiting and has been bryon erating diet. Patient states he is tired today. Blood cultures from yesterday have a preliminary reading of gram-positive cocci. Infectious disease is following. Will continue to monitor closely. 09/06/2019 Patient is sitting up in the chair in no acute distress with no acute overnight issues. Cardiology and infectious disease are following. Patient underwent a SAL yesterday showing no definite evidence of vegetations on the aortic valve and no vegetation noted on the mitral or tricuspid valves but did have a thrombus in the left atrial appendage that is about 1 cm in size. LV systolic function is normal and interatrial septum is intact. Patient was started on Eliquis and will continue at this time. Patient's blood cultures continue to show MRSA and will repeat blood cultures daily to monitor closely. Patient is currently on IV antibiotics in the form of daptomycin and will continue at this time. Vancomycin was discontinued. Currently patient denies any chest pain, shortness of breath, or palpitations. Patient has been afebrile. Patient denies any nausea or vomiting and has been tolerating diet. Patient States that he is urinating well with no issues but has not had a bowel movement in 3 days. Dulcolax was ordered. Objective - Vital Signs Vital signs: Vital Signs Temp 98.3 F 09/06/19 07:00 Pulse 68 09/06/19 07:00 Resp 17 09/06/19 09:15 BP 172/73 09/06/19 07:00 Pulse Ox 84 L 09/06/19 07:00 Intake & Output 09/05/19 09/06/19 09/06/19 18:59 06:59 18:59 Intake Total 100 Balance 100 Weight 123.5 kg Intake: IV 100 Other: Voiding Method Urinal Urinal Diaper Diaper Incontinent Incontinent # Voids 1 0 - Exam GENERAL: The patient is alert and oriented x2-3,. Well developed, well nouris hed. Patient has parkinsonian tremor appears to be tired but a little more alert today and sitting up in the chair in no acute distress. HEENT: Pupils are round and equally reacting to light. EOMI. No scleral icterus. No conjunctival pallor. Normocephalic, atraumatic. No pharyngeal erythema. No thyromegaly. CARDIOVASCULAR: S1 and S2 present. No murmurs, rubs, or gallops. PULMONARY: Chest is clear to auscultation, no wheezing or crackles. ABDOMEN: Soft, nontender, nondistended, normoactive bowel sounds. No palpable organomegaly. MUSCULOSKELETAL: No joint swelling or deformity. EXTREMITIES: No cyanosis, clubbing, or pedal edema. NEUROLOGICAL: Gross neurological examination did not reveal any focal deficits. SKIN: No rashes. - Labs CBC & Chem 7: 09/06/19 07:19 09/06/19 07:19 Labs: Abnormal Lab Results - Last 24 Hours (Table) 09/05/19 09/05/19 09/06/19 Range/Units 17:26 20:02 07:19 RBC 3.25 L (4.30-5.90) m/uL Hgb 10.1 L (13.0-17.5) gm/dL Hct 30.8 L (39.0-53.0) % Neutrophils # 7.8 H (1.3-7.7) k/uL Potassium (3.5-5.1) mmol/L Chloride (98-107) mmol/L POC Glucose (mg/dL) 119 H 156 H (75-99) mg/dL Calcium (8.4-10.2) mg/dL 09/06/19 09/06/19 Range/Units 07:19 11:34 RBC (4.30-5.90) m/uL Hgb (13.0-17.5) gm/dL Hct (39.0-53.0) % Neutrophils # (1.3-7.7) k/uL Potassium 3.3 L (3.5-5.1) mmol/L Chloride 109 H (98-107) mmol/L POC Glucose (mg/dL) 107 H (75-99) mg/dL Calcium 8.1 L (8.4-10.2) mg/dL Microbiology - Last 24 Hours (Table) 09/04/19 05:54 Blood Culture Gram Stain - Preliminary Blood Blood Culture - Preliminary Presumptive MRSA 09/03/19 06:39 Blood Culture Gram Stain - Final Blood Blood Culture - Final Methicillin resist S. aureus 08/31/19 02:48 Urine Culture - Final Urine,Clean Catch Summer glabrata 08/31/19 22:29 Blood Culture Gram Stain - Final Blood Blood Culture - Final Methicillin resist S. aureus 08/31/19 22:03 Blood Culture Gram Stain - Final Blood Blood Culture - Final Methicillin resist S. aureus Assessment and Plan Assessment: -Severe sepsis secondary to urinary tract infection Repeat blood cultures are presumptive for MRSA will await culture finalization. Patient's IV antibiotics have been switched to daptomycin and vancomycin was discontinued. Will continue with daily blood cultures. Infectious disease is following. -Extensive venous stasis dermatosis and bilateral pedal edema from venous stasis dermatosis Lasix will be held temporarily because of sepsis. -Type 2 diabetes mellitus continue with present regimen uncontrolled and elevated blood sugars titration of insulin depending on the blood sugars and sliding scale needs -Generalized weakness secondary to sepsis -Parkinson's -Hypothyroidism -COPD without any acute exacerbation -Acute kidney injury: From sepsis and Lasix is contributing to his acute renal failure -Chronic kidney disease stage 2-3 -Diabetic peripheral neuropathy. Recommendations and discussion: Recommend to continue current medications, management, and symptomatic treatment. Cardiology and Infectious disease are following. SAL was done yesterday showing no evidence of vegetations but was positive for thrombus in the left atrial appendage. Patient was started on Eliquis. Patient will contin ue on IV antibiotics in the form of daptomycin at this time. Will continue to monitor closely. Will repeat a.m. labs. Case management and social work lecturer following as well for possible placement once patient is discharged. Patient may likely need IV antibiotics as well as continue PT/OT therapy for strength and mobility. Further recommendations to follow.
--- NOTE | 2019-09-06 14:53 | XR ---
EXAMINATION TYPE: XR chest 1V DATE OF EXAM: 09/06/2019 HISTORY: Shortness of breath. COMPARISON: 08/31/2019 TECHNIQUE: Single view of the chest is submitted. FINDINGS: Demonstrated are scattered senescent parenchymal change. There is no evidence for focal infiltrate. The heart is stable. Hilar and mediastinal structures are within normal limits. Degenerative changes are seen of the dorsal spine. IMPRESSION: 1. Chronic changes without evidence for acute pulmonary disease.
[2019-09-06] MEDS: DAPTOmycin 750 MG in SODIUM CHLORIDE 0.9% 50 ML IVPB SCH (14:56)
[2019-09-06 16:17] LABS: ABG Base Excess 0.2 mmol/L; ABG HCO3 24 mmol/L (21-25); ABG Oxygen Saturation 97.1 % (94-97); ABG PCO2 37 mmHg (35-45); ABG PH 7.43 (7.35-7.45); ABG PO2 88 mmHg (83-108); ABG TCO2 26 mmol/L (19-24); Allen Test Performed? Yes
[2019-09-06 17:12] LABS: Glucose,Whole Blood 93 mg/dL (75-99)
[2019-09-06 20:43] LABS: Glucose,Whole Blood 143 mg/dL (75-99)
[2019-09-06] MEDS: INSULIN DETEMIR (LEVEMIR) 100 UNIT/ML SYR SQ SCH (21:09)
--- NOTE | 2019-09-06 21:12 | P.PN ---
Subjective Progress Note Date: 09/06/19 79-year-old male who lives in the family home with his spouse and grandchildren relates that he's been feeling poorly for a few days. He became very weak and actually lowered himself to the ground because he was so weak. EMS was called and he was brought to hospital. He was on evidence of a fever as well as leukocytosis and feeling quite poorly. Patient has a long-standing history of Parkinson's and is a limited historian. He denies severe pain at this time. 09/02/2019 patient remains a poor historian but he is a bit stronger and may have sitting up in the chair. He has no significant complaints. 09/05/2019 patient remains fatigued and feels ill but has been able to sit up in a chair, denies fevers or chills. SAL has now been performed. September 06 2019 the patient is sleepy and difficult to arouse this afternoon. His untouched lunch is next to him. His status is discussed with the nurse. He has been quite sleepy through the morning into the early afternoon. She will reassess if he does awaken make sure there some assistance in eating his meal.. Objective - Vital Signs Vital signs: Vital Signs Temp 98.8 F 09/06/19 20:57 Pulse 76 09/06/19 20:57 Resp 17 09/06/19 20:57 BP 161/72 09/06/19 20:57 Pulse Ox 95 09/06/19 20:57 Intake & Output 09/06/19 09/06/19 09/07/19 06:59 18:59 06:59 Intake Total 575 Balance 575 Weight 123.5 kg Intake: Intake, IV Titration 575 Amount DAPTOmycin 750 mg In 50 Sodium Chloride 0.9% 50 ml @ 100 mls/hr IVPB Q24H [facility] Rx#:[id number] Sodium Chloride 0.9% 1, 525 000 ml @ 75 mls/hr IV . [id number] [facility] Rx#:[id number] Other: Voiding Method Urinal Urinal Diaper Diaper Incontinent Incontinent # Voids 0 1 - Exam 79-year-old male who seems to be comfortable, he was arousable but is noted is a very poor historian. HEENT: Anicteric conjunctiva are pink and moist nasal mucosa grossly intact without significant lesions, there is no thrush. Has dentures Neck: The neck is supple without significant lymphadenopathy or thyromegaly. Lungs: There is symmetrical bilateral air entry with few crackles at the bases no sniffy and wheezing Heart: Irregular with a soft S4. No murmur click or rub Abdomen: Mildly obese, Positive bowel sounds soft and nontender without palpable masses or organomegaly. There was no guarding or rebound. Extremities: The upper extremities have excellent pulses they are symmetric, no significant petechiae or telangiectasia. No splinter hemorrhages were noted. Lower extremities have evidence of extensive bilateral lower extremity edema, skin is thickened toenails are untrimmed no open ulcerations are seen Neuro: Has some response to stimuli but does not arouse converse at this time. - Labs CBC & Chem 7: 09/06/19 07:19 09/06/19 07:19 Labs: Abnormal Lab Results - Last 24 Hours (Table) 09/06/19 09/06/19 09/06/19 Range/Units 07:19 07:19 11:34 RBC 3.25 L (4.30-5.90) m/uL Hgb 10.1 L (13.0-17.5) gm/dL Hct 30.8 L (39.0-53.0) % Neutrophils # 7.8 H (1.3-7.7) k/uL ABG Total CO2 (19-24) mmol/L ABG O2 Saturation (94-97) % Potassium 3.3 L (3.5-5.1) mmol/L Chloride 109 H (98-107) mmol/L POC Glucose (mg/dL) 107 H (75-99) mg/dL Calcium 8.1 L (8.4-10.2) mg/dL 09/06/19 09/06/19 Range/Units 16:12 20:41 RBC (4.30-5.90) m/uL Hgb (13.0-17.5) gm/dL Hct (39.0-53.0) % Neutrophils # (1.3-7.7) k/uL ABG Total CO2 26 H (19-24) mmol/L ABG O2 Saturation 97.1 H (94-97) % Potassium (3.5-5.1) mmol/L Chloride (98-107) mmol/L POC Glucose (mg/dL) 143 H (75-99) mg/dL Calcium (8.4-10.2) mg/dL Microbiology - Last 24 Hours (Table) 09/04/19 05:54 Blood Culture Gram Stain - Final Blood Blood Culture - Final Methicillin resist S. aureus 09/03/19 06:39 Blood Culture Gram Stain - Final Blood Blood Culture - Final Methicillin resist S. aureus Laboratory Results WBC 10.4 k/uL (3.8-10.6) 09/06/19 07:19 RBC 3.25 m/uL (4.30-5.90) L 09/06/19 07:19 Hgb 10.1 gm/dL (13.0-17.5) L 09/06/19 07:19 Hct 30.8 % (39.0-53.0) L 09/06/19 07:19 MCV 94.6 fL (80.0-100.0) 09/06/19 07:19 MCH 31.0 pg (25.0-35.0) 09/06/19 07:19 MCHC 32.7 g/dL (31.0-37.0) 09/06/19 07:19 RDW 13.5 % (11.5-15.5) 09/06/19 07:19 Plt Count 272 k/uL (150-450) 09/06/19 07:19 Neutrophils % 75 % 09/06/19 07:19 Lymphocytes % 14 % 09/06/19 07:19 Monocytes % 6 % 09/06/19 07:19 Eosinophils % 2 % 09/06/19 07:19 Basophils % 1 % 09/06/19 07:19 Neutrophils # 7.8 k/uL (1.3-7.7) H 09/06/19 07:19 Lymphocytes # 1.5 k/uL (1.0-4.8) 09/06/19 07:19 Monocytes # 0.6 k/uL (0-1.0) 09/06/19 07:19 Eosinophils # 0.2 k/uL (0-0.7) 09/06/19 07:19 Basophils # 0.1 k/uL (0-0.2) 09/06/19 07:19 PT 10.4 sec (9.0-12.0) 08/31/19 01:55 INR 1.0 (<1.2) 08/31/19 01:55 APTT 22.1 sec (22.0-30.0) 08/31/19 01:55 Sample Site rrad 09/06/19 16:12 ABG pH 7.43 (7.35-7.45) 09/06/19 16:12 ABG pCO2 37 mmHg (35-45) 09/06/19 16:12 ABG pO2 88 mmHg (83-108) 09/06/19 16:12 ABG HCO3 24 mmol/L (21-25) 09/06/19 16:12 ABG Total CO2 26 mmol/L (19-24) H 09/06/19 16:12 ABG O2 Saturation 97.1 % (94-97) H 09/06/19 16:12 ABG Base Excess 0.2 mmol/L 09/06/19 16:12 Job Test Yes 09/06/19 16:12 FiO2 28 % 09/06/19 16:12 Sodium 141 mmol/L (137-145) 09/06/19 07:19 Potassium 3.3 mmol/L (3.5-5.1) L 09/06/19 07:19 Chloride 109 mmol/L (98-107) H 09/06/19 07:19 Carbon Dioxide 23 mmol/L (22-30) 09/06/19 07:19 Anion Gap 9 mmol/L 09/06/19 07:19 BUN 10 mg/dL (9-20) 09/06/19 07:19 Creatinine 1.22 mg/dL (0.66-1.25) 09/06/19 07:19 Est GFR (CKD-EPI)AfAm 66 (>60 ml/min/1.73 sqM) 09/06/19 07:19 Est GFR (CKD-EPI)NonAf 57 (>60 ml/min/1.73 sqM) 09/06/19 07:19 Glucose 74 mg/dL (74-99) 09/06/19 07:19 POC Glucose (mg/dL) 143 mg/dL (75-99) H 09/06/19 20:41 POC Glu Photo Producer ID Melquiades Mandujano 09/06/19 20:[address] Glu mg/dL 206 09/01/19 06:30 Hemoglobin A1c 8.8 % (4.0-6.0) H 09/01/19 06:30 Lactic Ac Sepsis Rflx Y 08/31/19 02:45 Plasma Lactic Acid Riley 0.7 mmol/L (0.7-2.0) 09/06/19 16:44 Calcium 8.1 mg/dL (8.4-10.2) L 09/06/19 07:19 Total Bilirubin 0.8 mg/dL (0.2-1.3) 08/31/19 01:55 AST 15 U/L (17-59) L 08/31/19 01:55 ALT 21 U/L (21-72) 08/31/19 01:55 Alkaline Phosphatase 133 U/L (38-126) H 08/31/19 01:55 Troponin I 0.018 ng/mL (0.000-0.034) 08/31/19 01:55 Total Protein 6.2 g/dL (6.3-8.2) L 08/31/19 01:55 Albumin 3.3 g/dL (3.5-5.0) L 08/31/19 01:55 Urine Color Yellow 08/31/19 02:48 Urine Appearance Cloudy (Clear) 08/31/19 02:48 Urine pH 5.5 (5.0-8.0) 08/31/19 02:48 Ur Specific [place] 1.015 (1.001-1.035) 08/31/19 02:48 Urine Protein 1+ (Negative) H 08/31/19 02:48 Urine Glucose (UA) 2+ (Negative) H 08/31/19 02:48 Urine Ketones Negative (Negative) 08/31/19 02:48 Urine Blood Trace (Negative) H 08/31/19 02:48 Urine Nitrite Negative (Negative) 08/31/19 02:48 Urine Bilirubin Negative (Negative) 08/31/19 02:48 Urine Urobilinogen <2.0 mg/dL (<2.0) 08/31/19 02:48 Ur Leukocyte Esterase Large (Negative) H 08/31/19 02:48 Urine RBC 2 /hpf (0-5) 08/31/19 02:48 Urine WBC 176 /hpf (0-5) H 08/31/19 02:48 Urine WBC Clumps Many /hpf (None) H 08/31/19 02:48 Ur Squamous Epith Cells <1 /hpf (0-4) 08/31/19 02:48 Urine Bacteria Rare /hpf (None) H 08/31/19 02:48 Hyaline Casts 3 /lpf (0-2) H 08/31/19 02:48 Urine Mucus Rare /hpf (None) H 08/31/19 02:48 Urine Yeast (Budding) Few /hpf (None) H 08/31/19 02:48 Vancomycin Trough 14.9 ug/mL 09/05/19 06:35 Influenza Type A RNA Not Detected (Not Detectd) 08/31/19 01:55 Influenza Type B (PCR) Not Detected (Not Detectd) 08/31/19 01:55 Microbiology 09/04/19 05:54 Blood Blood Culture Gram Stain - Final 09/04/19 05:54 Blood Blood Culture - Final Methicillin resist S. aureus 09/03/19 06:39 Blood Blood Culture Gram Stain - Final 09/03/19 06:39 Blood Blood Culture - Final Methicillin resist S. aureus 08/31/19 02:48 Urine,Clean Catch Urine Culture - Final Summer glabrata 08/31/19 22:29 Blood Blood Culture Gram Stain - Final 08/31/19 22:29 Blood Blood Culture - Final Methicillin resist S. aureus 08/31/19 22:03 Blood Blood Culture Gram Stain - Final 08/31/19 22:03 Blood Blood Culture - Final Methicillin resist S. aureus 09/04/19 05:54 Blood Blood Culture - Final 09/03/19 06:39 Blood Blood Culture - Final 08/31/19 01:55 Blood Blood Culture Gram Stain - Final 08/31/19 01:55 Blood Blood Culture - Final Methicillin resist S. aureus 08/31/19 22:03 Blood Blood Culture - Final 08/31/19 22:29 Blood Blood Culture - Final 08/31/19 01:55 Blood Blood Culture - Final Assessment and Plan (1) Bacteremia Narrative/Plan: 79-year-old male who has a history of diabetes, Parkinson's disease and history of bladder cancer that has been treated with surgical intervention as well as intravesicular treatment. He now presents with a worsening of his status showing evidence of a high-grade fever, leukocytosis, elevated lactic acid which are all consistent with recurrent sepsis from urinary system in this debilitated gentleman. Antibiotic therapy was begun with vancomycin based on his recent urine cultures that showed evidence of MRSA and enterococcus that was not vancomycin resistant. There is evidence of the positive blood culture with gram-positive cocci. The patient has had an echocardiogram done earlier this year without evidence of any severe valvular disease. At this time with continued vancomycin therapy. Will request follow blood cultures to be performed to evaluate clearance of bacteremia with treatment of antibiotic therapy. With the development of bacteremia will need outpatient intravenous antibiotic therapy. The lower extremities evidence of chronic edema but there does not appear to be any open ulcerations or cellulitis, local care with elevation and compression stockings could be helpful. 09/02/2019 patient is bit stronger, but has evidence of ongoing positive blood cultures. Conservatively to urinary source and ultrasound of the kidneys has be en requested to evaluate for any type of obstruction problem or renal abscess. Also perinephric abscess. By November vancomycin continues. We'll follow blood cultures again tomorrow to see be certain occurs bacteremia with therapy. He 15 feels slightly better but still has ongoing acute illness at this time. 09/05/2019 the patient remains chronically ill feeling somewhat poorly. He is having improvement of his fever but there remains ongoing positive blood cultures. With this we'll transition vancomycin to daptomycin and high-dose. We'll monitor a weekly CK level. Once we have clearance of his bacteremia will need some type of IV access to allow treatment post hospital stay. The etiology of the ongoing bacteremia could be the clots within the left atrium and may require a longer time for clearance of his bacteremia. There is no evidence of any urinary source as noted by the relatively normal renal ultrasound. Patient does feel somewhat better than admission and hopefully be able to start with the discharge plan. 09/06/2019 the patient had SAL performed that shows evidence of the left atrial clot in this is the likely etiology of his persistent bacteremia. Antibiotic therapy was altered yesterday to high-dose daptomycin with evidence of vancomycin failure. We'll continue to monitor and follow blood cultures are reportedly been performed. The patient however is much more sedated today. He has not really arousing very well. Concerns are brought to the nurse to contact the hospitalist to ensure that this has not been a significant change of his status which is concerning because of his persistent bacteremia and left atrial clot. Current Visit: Yes Status: Acute Code(s): R78.81 - BACTEREMIA SNOMED Code(s): 6512113 (2) Urinary tract infection Current Visit: Yes Status: Acute Code(s): N39.0 - URINARY TRACT INFECTION, SITE NOT SPECIFIED SNOMED Code(s): 37415869 (3) Leukocytosis Current Visit: Yes Status: Acute Code(s): D72.829 - ELEVATED WHITE BLOOD CELL COUNT, UNSPECIFIED SNOMED Code(s): 506618785 (4) Acute sepsis Current Visit: Yes Status: Acute Code(s): A41.9 - SEPSIS, UNSPECIFIED ORGANISM SNOMED Code(s): 38764262
[2019-09-07] MEDS: LEVOTHYROXINE 100 MCG TAB PO SCH (05:33)
[2019-09-07 07:06] LABS: Glucose,Whole Blood 101 mg/dL (75-99)
[2019-09-07 07:16] LABS: Basophils # (A) 0.2 k/uL (0-0.2); Basophils % (A) 2 %; Eosinophils # (A) 0.2 k/uL (0-0.7); Eosinophils % (A) 3 %; HCT 32.9 % (39.0-53.0); HGB 11.1 gm/dL (13.0-17.5); Lymphocytes # (A) 1.5 k/uL (1.0-4.8); Lymphocytes % (A) 17 %; MCH 31.7 pg (25.0-35.0); MCHC 33.7 g/dL (31.0-37.0); MCV 94.1 fL (80.0-100.0); Mean Platelet Volume 7.5; Monocytes # (A) 0.5 k/uL (0-1.0); Monocytes % (A) 5 %; Neutrophils # (A) 6.1 k/uL (1.3-7.7); Neutrophils % (A) 71 %; Platelet Count 287 k/uL (150-450); RBC 3.49 m/uL (4.30-5.90); RDW 13.4 % (11.5-15.5); WBC 8.6 k/uL (3.8-10.6)
[2019-09-07 07:29] LABS: Calcium 8.4 mg/dL (8.4-10.2); Potassium 3.6 mmol/L (3.5-5.1)
[2019-09-07] MEDS: INSULIN ASPART (NovoLOG) 100 UNIT/ML VIAL SQ SCH ×7 (08:05→20:15)
[2019-09-07] MEDS: METOPROLOL TARTRATE 25 MG TAB PO SCH ×2 (08:09→20:05)
[2019-09-07] MEDS: LISINOPRIL 20 MG TAB PO SCH (08:09)
[2019-09-07] MEDS: APIXABAN 5 MG TAB PO SCH ×2 (08:09→20:05)
[2019-09-07] MEDS: ALLOPURINOL 100 MG TAB PO SCH (08:09)
[2019-09-07] MEDS: CARBIDOPA-LEVODOPA 25-100 MG 1 EACH TAB PO SCH ×3 (08:09→22:16)
[2019-09-07 11:53] LABS: Glucose,Whole Blood 113 mg/dL (75-99)
--- NOTE | 2019-09-07 12:55 | P.PN ---
Subjective This is a pleasant 79-year-old male past medical history significant for paroxysmal atrial fibrillation not previously on long-term anticoagulation secondary to patient refusal, history of cardiomyopathy who presented to the hospital with progressive dyspnea fever and positive blood cultures currently being treated for urinary tract infection. He is seen and examined laying flat resting comfortably in bed in no acute distress. He denies symptoms of chest discomfort, shortness of breath, dizziness or palpitations. Blood pressure 1 80/72 heart rate 62 afebrile maintaining oxygen saturation on nasal cannula. Currently maintained on Eliquis 5 mg twice a day, lisinopril 40 mg daily, Lopressor 25 mg twice a day. Laboratory data reviewed, WBC 8.6, hemoglobin 11.1, platelets 287, sodium 141, potassium 3.6, creatinine 1.24. GENERAL: Well-appearing, well-nourished and in no acute distress. Obese. NECK: Supple without JVD or thyromegaly. LUNGS: Breath sounds clear to auscultation bilaterally. Respiration equal and unlabored. No wheezes, rales or rhonchi. HEART: Regular rate and rhythm with systolic ejection murmur, no rubs or gallops. S1 and S2 heard. EXTREMITIES: Normal range of motion, bilateral lower extremity 1+ pitting edema. No clubbing or cyanosis. Peripheral pulses intact. ASSESSMENT Bacteremia Left atrial appendage thrombus Sepsis secondary to urinary tract infection Paroxysmal atrial fibrillation, maintaining sinus mechanism currently Lactic acidosis, resolved Acute kidney injury, resolved Hypokalemia Hypertension PLAN Will initiate on amlodipine 10 mg daily for blood pressure control. Ongoing management per primary care team. We will follow as needed, please call with further questions or concerns. Follow up with Dr. Hinson upon discharge. Nurse Practitioner note has been reviewed, I agree with a documented findings and plan of care. Patient was seen and examined. Objective - Vital Signs Vital signs: Vital Signs Temp 98.1 F 09/07/19 07:00 Pulse 62 09/07/19 08:00 Resp 18 09/07/19 08:00 BP 180/72 09/07/19 07:00 Pulse Ox 97 09/07/19 07:00 Intake & Output 09/06/19 09/07/19 09/07/19 18:59 06:59 18:59 Intake Total 575 Balance 575 Weight 123.2 kg 123.2 kg Intake: Intake, IV Titration 575 Amount DAPTOmycin 750 mg In 50 Sodium Chloride 0.9% 50 ml @ 100 mls/hr IVPB Q24H [facility] Rx#:[id number] Sodium Chloride 0.9% 1, 525 000 ml @ 75 mls/hr IV . [id number] [facility] Rx#:[id number] Other: Voiding Method Urinal Urinal Urinal Diaper Diaper Diaper Incontinent Incontinent Incontinent # Voids 0 - Labs CBC & Chem 7: 09/07/19 06:28 09/07/19 06:28 Labs: Abnormal Lab Results - Last 24 Hours (Table) 09/06/19 09/06/19 09/07/19 Range/Units 16:12 20:41 06:28 RBC 3.49 L (4.30-5.90) m/uL Hgb 11.1 L (13.0-17.5) gm/dL Hct 32.9 L (39.0-53.0) % ABG Total CO2 26 H (19-24) mmol/L ABG O2 Saturation 97.1 H (94-97) % Chloride (98-107) mmol/L POC Glucose (mg/dL) 143 H (75-99) mg/dL 09/07/19 09/07/19 09/07/19 Range/Units 06:28 06:54 11:41 RBC (4.30-5.90) m/uL Hgb (13.0-17.5) gm/dL Hct (39.0-53.0) % ABG Total CO2 (19-24) mmol/L ABG O2 Saturation (94-97) % Chloride 108 H (98-107) mmol/L POC Glucose (mg/dL) 101 H 113 H (75-99) mg/dL Microbiology - Last 24 Hours (Table) 09/06/19 07:19 Blood Culture Gram Stain - Preliminary Blood 09/06/19 07:19 Blood Culture - Final Blood 09/04/19 05:54 Blood Culture Gram Stain - Final Blood Blood Culture - Final Methicillin resist S. aureus 09/03/19 06:39 Blood Culture Gram Stain - Final Blood Blood Culture - Final Methicillin resist S. aureus
[2019-09-07] MEDS: DAPTOmycin 750 MG in SODIUM CHLORIDE 0.9% 50 ML IVPB SCH (15:16)
[2019-09-07] MEDS: amLODIPine 10 MG TAB PO SCH (15:16)
--- NOTE | 2019-09-07 16:16 | P.PN ---
Subjective Progress Note Date: 09/07/19 Principal diagnosis: 73-year-old male came in because of possible Infection as patient felt quite weak and lethargic found to have high-grade fever found to be septic with the lactic acidosis. Patient does take Lasix at home regimen of history of congestive heart failure. Patient does have Parkinson's and is on carbidopa levodopa for that. Patient lowered himself to Because of Generalized Weakness. Patient Chest X-Ray Did Not Show Pneumonia but Urine Is Significant Abnormality Patient Does Have History of UTI in the past Patient Has Enterococcus Which Is Resistant to Penicillin but Sensitive to Vancomycin. Patient Also Had MRSA UTI in the past. Urine Cultures Blood Cultures Were Obtained. 09/01/2019 Patient is lying in bed in no acute distress with no acute overnight issues. Patient states that he continues to feel weak and has been working with PT/OT. Infectious disease is following. Patient's blood cultures have resulted with presumptive MRSA and repeat blood cultures are pending at this time. Patient is currently on IV antibiotics in the form of ceftriaxone and vancomycin and will continue at this time. Patient denies any chest pain, shortness of breath, or palpitations. Patient has been afebrile. Patient denies any nausea or vomiting and is tolerating diet. Patient states that he has been falling more frequently at home in case management and social work are following for discharge planning as the patient may require rehab upon discharge. Will continue to monitor closely. 09/02/2019 Patient is lying in bed in no acute distress with no acute overnight issues. Repeat blood cultures have shown presumptive MRSA. Infectious disease is f ollowing. Patient is having some right knee pain an x-ray was done showing no fracture nor dislocation and joint spaces are normal with no signs of joint effusion. Patient is currently on IV antibiotics in the form of vancomycin and will continue at this time. Patient is on gentle IV hydration at 75mL/hr his creatinine is improving and is currently 1.56. White blood count is trending down and is currently 11.3. Will repeat a.m. labs. Cardiology is consulted and is pending at this time. Will continue to monitor vital signs and labs closely. 09/03/2019 Patient had persistent bacteremia will obtain ultrasound of the kidney to rule out any perinephric abscess along with the possible endocarditis. Patient is feeling a bit better today. Afebrile. 09/04/2019 Blood cultures from yesterday were negative. Patient will undergo SAL tomorrow ultrasound of the kidney did not show any perinephric abscess. Patient is feeling a little stronger today Constitutional: Denied any fatigue denied any fever. Cardio vascular: denied any chest pain, palpitations Gastrointestinal denied any nausea vomiting Pulmonary: Denied any shortness of breath cough Neurologic denied any new focal deficits 09/05/2019 Patient is lying in bed in no acute distress with no acute overnight issues. Patient is to undergo a SAL today around noon. Will await report. Patient is quite lethargic and continues to fall in and out of sleep while conversing. Currently patient denies any chest pain, shortness of breath, or palpitations. Patient is afebrile. Patient denies any nausea or vomiting and has been bryon erating diet. Patient states he is tired today. Blood cultures from yesterday have a preliminary reading of gram-positive cocci. Infectious disease is following. Will continue to monitor closely. 09/06/2019 Patient is sitting up in the chair in no acute distress with no acute overnight issues. Cardiology and infectious disease are following. Patient underwent a SAL yesterday showing no definite evidence of vegetations on the aortic valve and no vegetation noted on the mitral or tricuspid valves but did have a thrombus in the left atrial appendage that is about 1 cm in size. LV systolic function is normal and interatrial septum is intact. Patient was started on Eliquis and will continue at this time. Patient's blood cultures continue to show MRSA and will repeat blood cultures daily to monitor closely. Patient is currently on IV antibiotics in the form of daptomycin and will continue at this time. Vancomycin was discontinued. Currently patient denies any chest pain, shortness of breath, or palpitations. Patient has been afebrile. Patient denies any nausea or vomiting and has been tolerating diet. Patient States that he is urinating well with no issues but has not had a bowel movement in 3 days. Dulcolax was ordered. 09/07/2019 Patient is sitting up in the chair in no acute distress with no acute overnight issues. Family is at the bedside. Discussed with the family and patient at length today about CODE STATUS and patient's wishes are to be made a no code as he states "he does not want to be a vegetable something were to happen." Patient is much more awake and alert today and is sitting up having full conversation. Patient denies any chest pain, shortness of breath, or palpitations. Patient is afebrile. She denies any nausea or vomiting and is tolerating diet. Patient's repeat blood cultures continue to be positive and are showing gram-positive cocci. Patient continues to have elevated blood pressure and Norvasc 10 mg will be added today. Will continue to monitor closely. Patient is currently on IV antibiotics in the form of daptomycin and will continue at this time. Infectious disease is following. Objective - Vital Signs Vital signs: Vital Signs Temp 98.3 F 09/07/19 15:00 Pulse 70 09/07/19 15:00 Resp 17 09/07/19 15:00 BP 173/72 09/07/19 15:00 Pulse Ox 98 09/07/19 15:00 Intake & Output 09/06/19 09/07/19 09/07/19 18:59 06:59 18:59 Intake Total 575 Balance 575 Weight 123.2 kg 123.2 kg Intake: Intake, IV Titration 575 Amount DAPTOmycin 750 mg In 50 Sodium Chloride 0.9% 50 ml @ 100 mls/hr IVPB Q24H [facility] Rx#:[id number] Sodium Chloride 0.9% 1, 525 000 ml @ 75 mls/hr IV . [id number] [facility] Rx#:[id number] Other: Voiding Method Urinal Urinal Urinal Diaper Diaper Diaper Incontinent Incontinent Incontinent # Voids 0 1 - Exam GENERAL: The patient is alert and oriented x3,. Well developed, well nourished. Patient has parkinsonian tremor appears to be more awake and alert and having a full conversation sitting up in the chair. HEENT: Pupils are round and equally reacting to light. EOMI. No scleral icterus. No conjunctival pallor. Normocephalic, atraumatic. No pharyngeal erythema. No thyromegaly. CARDIOVASCULAR: S1 and S2 present. No murmurs, rubs, or gallops. PULMONARY: Chest is clear to auscultation, no wheezing or crackles. ABDOMEN: Soft, non-tender, non-distended, normoactive bowel sounds. No palpable organomegaly. MUSCULOSKELETAL: No joint swelling or deformity. EXTREMITIES: No cyanosis, clubbing, or pedal edema. NEUROLOGICAL: Gross neurological examination did not reveal any focal deficits. SKIN: No rashes. - Labs CBC & Chem 7: 09/07/19 06:28 09/07/19 06:28 Labs: Abnormal Lab Results - Last 24 Hours (Table) 09/06/19 09/06/19 09/07/19 Range/Units 16:12 20:41 06:28 RBC 3.49 L (4.30-5.90) m/uL Hgb 11.1 L (13.0-17.5) gm/dL Hct 32.9 L (39.0-53.0) % ABG Total CO2 26 H (19-24) mmol/L ABG O2 Saturation 97.1 H (94-97) % Chloride (98-107) mmol/L POC Glucose (mg/dL) 143 H (75-99) mg/dL 09/07/19 09/07/19 09/07/19 Range/Units 06:28 06:54 11:41 RBC (4.30-5.90) m/uL Hgb (13.0-17.5) gm/dL Hct (39.0-53.0) % ABG Total CO2 (19-24) mmol/L ABG O2 Saturation (94-97) % Chloride 108 H (98-107) mmol/L POC Glucose (mg/dL) 101 H 113 H (75-99) mg/dL Microbiology - Last 24 Hours (Table) 09/06/19 07:19 Blood Culture Gram Stain - Preliminary Blood 09/06/19 07:19 Blood Culture - Final Blood 09/04/19 05:54 Blood Culture Gram Stain - Final Blood Blood Culture - Final Methicillin resist S. aureus 09/03/19 06:39 Blood Culture Gram Stain - Final Blood Blood Culture - Final Methicillin resist S. aureus Assessment and Plan Assessment: -Severe sepsis secondary to urinary tract infection Repeat blood cultures are MRSA. Patient's IV antibiotics have been switched to daptomycin and vancomycin was discontinued. Will continue with daily blood cultures. Infectious disease is following. -Extensive venous stasis dermatosis and bilateral pedal edema from venous stasis dermatosis Lasix will be held temporarily because of sepsis. -Type 2 diabetes mellitus continue with present regimen uncontrolled and elevated blood sugars titration of insulin depending on the blood sugars and sliding scale needs -Generalized weakness secondary to sepsis -Hypertension: patient will be started on Norvasc -Parkinson's -Hypothyroidism -COPD without any acute exacerbation -Acute kidney injury: From sepsis and Lasix is contributing to his acute renal failure -Chronic kidney disease stage 2-3 -Diabetic peripheral neuropathy. Recommendations and discussion: Recommend to continue current medications, management, and symptomatic treatment. Cardiology and Infectious disease are following. Patient will leno nue on IV antibiotics in the form of daptomycin at this time. Repeat blood culture showing gram positive cocci and will continue with blood cultures daily. Will continue to monitor closely. Will repeat a.m. labs. Case management and social psychologist following as well for possible placement once patient is discharged. Patient will likely need IV antibiotics as well as continue PT/OT therapy for strength and mobility. Further recommendations to follow.
[2019-09-07 17:00] LABS: Glucose,Whole Blood 143 mg/dL (75-99)
[2019-09-07] MEDS ORDERED: GENTAMICIN PER PHARMACY MISCELLANE PRN (18:12)
[2019-09-07] MEDS ORDERED: GENTAMICIN 140 MG in SODIUM CHLORIDE 0.9% 100 ML IVPB ONE (19:00)
[2019-09-07 20:15] LABS: Glucose,Whole Blood 112 mg/dL (75-99)
[2019-09-07] MEDS: INSULIN DETEMIR (LEVEMIR) 100 UNIT/ML SYR SQ SCH (20:15)
--- NOTE | 2019-09-07 20:46 | P.PN ---
Subjective Progress Note Date: 09/07/19 79-year-old male who lives in the family home with his spouse and grandchildren relates that he's been feeling poorly for a few days. He became very weak and actually lowered himself to the ground because he was so weak. EMS was called and he was brought to hospital. He was on evidence of a fever as well as leukocytosis and feeling quite poorly. Patient has a long-standing history of Parkinson's and is a limited historian. He denies severe pain at this time. 09/02/2019 patient remains a poor historian but he is a bit stronger and may have sitting up in the chair. He has no significant complaints. 09/05/2019 patient remains fatigued and feels ill but has been able to sit up in a chair, denies fevers or chills. SAL has now been performed. September 06 2019 the patient is sleepy and difficult to arouse this afternoon. His untouched lunch is next to him. His status is discussed with the nurse. He has been quite sleepy through the morning into the early afternoon. She will reassess if he does awaken make sure there some assistance in eating his meal. 09/07/2019 patient continues to be with ongoing sepsis and ongoing bacteremia despite antibiotic therapy and change of antibiotic therapy daptomycin. He is still very weak and ill which is quite different from his baseline. Discussion occurred with the primary care team yesterday. And the patient is now been appropriate and made no code is receiving ongoing aggressive interventions. Objective - Vital Signs Vital signs: Vital Signs Temp 98.3 F 09/07/19 15:00 Pulse 70 09/07/19 15:00 Resp 17 09/07/19 15:00 BP 173/72 09/07/19 15:00 Pulse Ox 98 09/07/19 15:00 Intake & Output 09/07/19 09/07/19 09/08/19 06:59 18:59 06:59 Weight 123.2 kg 123.2 kg Other: Voiding Method Urinal Urinal Diaper Diaper Incontinent Incontinent # Voids 0 1 - Exam 79-year-old male who seems to be comfortable, he was arousable but is noted is a very poor historian. HEENT: Anicteric conjunctiva are pink and moist nasal mucosa grossly intact without significant lesions, there is no thrush. Has dentures Neck: The neck is supple without significant lymphadenopathy or thyromegaly. Lungs: There is symmetrical bilateral air entry with few crackles at the bases no sniffy and wheezing Heart: Irregular with a soft S4. No murmur click or rub Abdomen: Mildly obese, Positive bowel sounds soft and nontender without palpable masses or organomegaly. There was no guarding or rebound. Extremities: The upper extremities have excellent pulses they are symmetric, no significant petechiae or telangiectasia. No splinter hemorrhages were noted. Lower extremities have evidence of extensive bilateral lower extremity edema, skin is thickened toenails are untrimmed no open ulcerations are seen Neuro: Has some response to stimuli but does not arouse converse at this time. - Labs CBC & Chem 7: 09/07/19 06:28 09/07/19 06:28 Labs: Abnormal Lab Results - Last 24 Hours (Table) 09/06/19 09/07/19 09/07/19 Range/Units 20:41 06:28 06:28 RBC 3.49 L (4.30-5.90) m/uL Hgb 11.1 L (13.0-17.5) gm/dL Hct 32.9 L (39.0-53.0) % Chloride 108 H (98-107) mmol/L POC Glucose (mg/dL) 143 H (75-99) mg/dL 09/07/19 09/07/19 09/07/19 Range/Units 06:54 11:41 16:47 RBC (4.30-5.90) m/uL Hgb (13.0-17.5) gm/dL Hct (39.0-53.0) % Chloride (98-107) mmol/L POC Glucose (mg/dL) 101 H 113 H 143 H (75-99) mg/dL 09/07/19 Range/Units 20:13 RBC (4.30-5.90) m/uL Hgb (13.0-17.5) gm/dL Hct (39.0-53.0) % Chloride (98-107) mmol/L POC Glucose (mg/dL) 112 H (75-99) mg/dL Microbiology - Last 24 Hours (Table) 09/06/19 07:19 Blood Culture Gram Stain - Preliminary Blood 09/06/19 07:19 Blood Culture - Final Blood 09/04/19 05:54 Blood Culture Gram Stain - Final Blood Blood Culture - Final Methicillin resist S. aureus 09/03/19 06:39 Blood Culture Gram Stain - Final Blood Blood Culture - Final Methicillin resist S. aureus Assessment and Plan (1) Bacteremia Narrative/Plan: 79-year-old male who has a history of diabetes, Parkinson's disease and history of bladder cancer that has been treated with surgical intervention as well as intravesicular treatment. He now presents with a worsening of his status showing evidence of a high-grade fever, leukocytosis, elevated lactic acid which are all consistent with recurrent sepsis from urinary system in this debilitated gentleman. Antibiotic therapy was begun with vancomycin based on his recent urine cultures that showed evidence of MRSA and enterococcus that was not vanc omycin resistant. There is evidence of the positive blood culture with gram- positive cocci. The patient has had an echocardiogram done earlier this year without evidence of any severe valvular disease. At this time with continued vancomycin therapy. Will request follow blood cultures to be performed to evaluate clearance of bacteremia with treatment of antibiotic therapy. With the development of bacteremia will need outpatient intravenous antibiotic therapy. The lower extremities evidence of chronic edema but there does not appear to be any open ulcerations or cellulitis, local care with elevation and compression stockings could be helpful. 09/02/2019 patient is bit stronger, but has evidence of ongoing positive blood cultures. Conservatively to urinary source and ultrasound of the kidneys has been requested to evaluate for any type of obstruction problem or renal abscess. Also perinephric abscess. By November vancomycin continues. We'll follow blood cultures again tomorrow to see be certain occurs bacteremia with therapy. He 15 feels slightly better but still has ongoing acute illness at this time. 09/05/2019 the patient remains chronically ill feeling somewhat poorly. He is having improvement of his fever but there remains ongoing positive blood cultures. With this we'll transition vancomycin to daptomycin and high-dose. We'll monitor a weekly CK level. Once we have clearance of his bacteremia will need some type of IV access to allow treatment post hospital stay. The etiology of the ongoing bacteremia could be the clots within the left atrium and may require a longer time for clearance of his bacteremia. There is no evidence of any urinary source as noted by the relatively normal renal ultrasound. Patient does feel somewhat better than admission and hopefully be able to start with the discharge plan. 09/06/2019 the patient had SAL performed that shows evidence of the left atrial clot in this is the likely etiology of his persistent bacteremia. Antibiotic therapy was altered yesterday to high-dose daptomycin with evidence of vancomycin failure. We'll continue to monitor and follow blood cultures are reportedly been performed. The patient however is much more sedated today. He has not really arousing very well. Concerns are brought to the nurse to contact the hospitalist to ensure that this has not been a significant change of his status which is concerning because of his persistent bacteremia and left atrial clot. 09/07/2019 the patient remains significantly ill with ongoing bacteremia, ongoing altered mentation but is hematologically stable. Antibiotic therapy continues with daptomycin which was just changed and will add a few doses of gentamicin to try to clear the bacteremia. It appears that the clot in the left atrium is the nidus for the current and ongoing bacteremia. His prognosis is poor and appropriately has been made no code at this point in time. If bacteremia clears he will then require 6 weeks of intravenous antibiotic therapy and rehab facility. Current Visit: Yes Status: Acute Code(s): R78.81 - BACTEREMIA SNOMED Code(s): 0064437 (2) Urinary tract infection Current Visit: Yes Status: Acute Code(s): N39.0 - URINARY TRACT INFECTION, SITE NOT SPECIFIED SNOMED Code(s): 91500116 (3) Leukocytosis Current Visit: Yes Status: Acute Code(s): D72.829 - ELEVATED WHITE BLOOD CELL COUNT, UNSPECIFIED SNOMED Code(s): 063958452 (4) Acute sepsis Current Visit: Yes Status: Acute Code(s): A41.9 - SEPSIS, UNSPECIFIED ORGANISM SNOMED Code(s): 76224317
[2019-09-08] MEDS: LEVOTHYROXINE 100 MCG TAB PO SCH (05:10)
[2019-09-08 07:33] LABS: Glucose,Whole Blood 85 mg/dL (75-99)
[2019-09-08] MEDS: INSULIN ASPART (NovoLOG) 100 UNIT/ML VIAL SQ SCH ×7 (07:46→20:23)
[2019-09-08 08:13] LABS: Basophils % (A) 0 %; Eosinophils # (A) 0.2 k/uL (0-0.7); Eosinophils % (A) 2 %; HCT 31.5 % (39.0-53.0); HGB 10.3 gm/dL (13.0-17.5); Lymphocytes # (A) 1.4 k/uL (1.0-4.8); Lymphocytes % (A) 19 %; MCH 30.4 pg (25.0-35.0); MCHC 32.5 g/dL (31.0-37.0); MCV 93.5 fL (80.0-100.0); Monocytes # (A) 0.4 k/uL (0-1.0); Monocytes % (A) 5 %; Neutrophils # (A) 5.5 k/uL (1.3-7.7); Neutrophils % (A) 72 %; Platelet Count 339 k/uL (150-450); RBC 3.37 m/uL (4.30-5.90); RDW 13.3 % (11.5-15.5); WBC 7.6 k/uL (3.8-10.6)
[2019-09-08] MEDS: LISINOPRIL 20 MG TAB PO SCH (08:14)
[2019-09-08] MEDS: GENTAMICIN 100 MG in SODIUM CHLORIDE 0.9% 100 ML IVPB SCH ×2 (08:14→20:23)
[2019-09-08] MEDS: ALLOPURINOL 100 MG TAB PO SCH (08:14)
[2019-09-08] MEDS: METOPROLOL TARTRATE 25 MG TAB PO SCH ×2 (08:14→20:24)
[2019-09-08] MEDS: amLODIPine 10 MG TAB PO SCH (08:14)
[2019-09-08] MEDS: CARBIDOPA-LEVODOPA 25-100 MG 1 EACH TAB PO SCH ×3 (08:15→21:31)
[2019-09-08] MEDS: APIXABAN 5 MG TAB PO SCH ×2 (08:15→20:24)
[2019-09-08 08:35] LABS: Calcium 8.5 mg/dL (8.4-10.2); Potassium 3.5 mmol/L (3.5-5.1)
[2019-09-08 12:11] LABS: Glucose,Whole Blood 102 mg/dL (75-99)
--- NOTE | 2019-09-08 15:41 | P.PN ---
Subjective 73-year-old male came in because of possible Infection as patient felt quite weak and lethargic found to have high-grade fever found to be septic with the lactic acidosis. Patient does take Lasix at home regimen of history of congestive heart failure. Patient does have Parkinson's and is on carbidopa levodopa for that. Patient lowered himself to Because of Generalized Weakness. Patient Chest X-Ray Did Not Show Pneumonia but Urine Is Significant Abnormality Patient Does Have History of UTI in the past Patient Has Enterococcus Which Is Resistant to Penicillin but Sensitive to Vancomycin. Patient Also Had MRSA UTI in the past. Urine Cultures Blood Cultures Were Obtained. 09/01/2019 Patient is lying in bed in no acute distress with no acute overnight issues. Patient states that he continues to feel weak and has been working with PT/OT. Infectious disease is following. Patient's blood cultures have resulted with presumptive MRSA and repeat blood cultures are pending at this time. Patient is currently on IV antibiotics in the form of ceftriaxone and vancomycin and will continue at this time. Patient denies any chest pain, shortness of breath, or palpitations. Patient has been afebrile. Patient denies any nausea or vomiting and is tolerating diet. Patient states that he has been falling more frequently at home in case management and social work are following for discharge planning as the patient may require rehab upon discharge. Will continue to monitor closely. 09/02/2019 Patient is lying in bed in no acute distress with no acute overnight issues. Repeat blood cultures have shown presumptive MRSA. Infectious disease is following. Patient is having some right knee pain an x-ray was done showing no fracture nor dislocation and joint spaces are normal with no signs of joint effusion. Patient is currently on IV antibiotics in the form of vancomycin and will continue at this time. Patient is on gentle IV hydration at 75mL/hr his creatinine is improving and is currently 1.56. White blood count is trending down and is currently 11.3. Will repeat a.m. labs. Cardiology is consulted and is pending at this time. Will continue to monitor vital signs and labs closely. 09/03/2019 Patient had persistent bacteremia will obtain ultrasound of the kidney to rule out any perinephric abscess along with the possible endocarditis. Patient is feeling a bit better today. Afebrile. 09/04/2019 Blood cultures from yesterday were negative. Patient will undergo SAL tomorrow ultrasound of the kidney did not show any perinephric abscess. Patient is feeling a little stronger today Constitutional: Denied any fatigue denied any fever. Cardio vascular: denied any chest pain, palpitations Gastrointestinal denied any nausea vomiting Pulmonary: Denied any shortness of breath cough Neurologic denied any new focal deficits 09/05/2019 Patient is lying in bed in no acute distress with no acute overnight issues. Patient is to undergo a SAL today around noon. Will await report. Patient is quite lethargic and continues to fall in and out of sleep while conversing. Currently patient denies any chest pain, shortness of breath, or palpitations. Patient is afebrile. Patient denies any nausea or vomiting and has been tolerating diet. Patient states he is tired today. Blood cultures from yesterday have a preliminary reading of gram-positive cocci. Infectious disease is following. Will continue to monitor closely. 09/06/2019 Patient is sitting up in the chair in no acute distress with no acute overnight issues. Cardiology and infectious disease are following. Patient underwent a SAL yesterday showing no definite evidence of vegetations on the aortic valve and no vegetation noted on the mitral or tricuspid valves but did have a thrombus in the left atrial appendage that is about 1 cm in size. LV systolic function is normal and interatrial septum is intact. Patient was started on Eliquis and will continue at this time. Patient's blood cultures continue to show MRSA and will repeat blood cultures daily to monitor closely. Patient is currently on IV antibiotics in the form of daptomycin and will continue at this time. Vancomycin was discontinued. Currently patient denies any chest pain, shortness of breath, or palpitations. Patient has been afebrile. Patient denies any nausea or vomiting and has been tolerating diet. Patient States that he is urinating well with no issues but has not had a bowel movement in 3 days. Dulcolax was ordered. 09/07/2019 Patient is sitting up in the chair in no acute distress with no acute overnight issues. Family is at the bedside. Discussed with the family and patient at length today about CODE STATUS and patient's wishes are to be made a no code as he states "he does not want to be a vegetable something were to happen." Patient is much more awake and alert today and is sitting up having full conversation. Patient denies any chest pain, shortness of breath, or palpitations. Patient is afebrile. She denies any nausea or vomiting and is tolerating diet. Patient's repeat blood cultures continue to be positive and are showing gram-positive cocci. Patient continues to have elevated blood pressure and Norvasc 10 mg will be added today. Will continue to monitor closely. Patient is currently on IV antibiotics in the form of daptomycin and will continue at this time. Infectious disease is following. 09/08/2019 patient's last blood culturesthat was positive at from 26th of this month. Patient is still lethargic Constitutional: as mentioned in HPI Cardio vascular: denied any chest pain, palpitations Gastrointestinal denied any nausea vomiting Pulmonary: Denied any shortness of breath cough Neurologic denied any new focal deficits All inpatient medications were reviewed and appropriate changes in these medications as dictated in the interval history and assessment and plan. Objective - Vital Signs Vital signs: Vital Signs Temp 98.6 F 09/08/19 07:15 Pulse 99 09/08/19 07:15 Resp 16 09/08/19 07:15 BP 151/78 09/08/19 07:15 Pulse Ox 97 09/08/19 07:15 Intake & Output 09/07/19 09/08/19 09/08/19 18:59 06:59 18:59 Intake Total 680 Output Total 350 Balance 330 Weight 123.2 kg 112 kg Intake: Oral 680 Output: Urine 350 Other: Voiding Method Urinal Diaper Urinal Diaper Incontinent Diaper Incontinent Incontinent # Voids 1 1 1 # Bowel Movements 1 - Exam - Exam GENERAL: The patient is alert and oriented x3,. Well developed, well nourished. quite a bit lethargic HEENT: Pupils are round and equally reacting to light. EOMI. No scleral icterus. No conjunctival pallor. Normocephalic, atraumatic. No pharyngeal erythema. No thyromegaly. CARDIOVASCULAR: S1 and S2 present. No murmurs, rubs, or gallops. PULMONARY: Chest is clear to auscultation, no wheezing or crackles. ABDOMEN: Soft, nontender, nondistended, normoactive bowel sounds. No palpable organomegaly. MUSCULOSKELETAL: No joint swelling or deformity. Right knee pain EXTREMITIES: No cyanosis, clubbing, or pedal edema. NEUROLOGICAL: Gross neurological examination did not reveal any focal deficits. SKIN: No rashes. - Labs CBC & Chem 7: 09/08/19 08:00 09/08/19 08:00 Labs: Abnormal Lab Results - Last 24 Hours (Table) 09/07/19 09/07/19 09/08/19 Range/Units 16:47 20:13 08:00 RBC 3.37 L (4.30-5.90) m/uL Hgb 10.3 L (13.0-17.5) gm/dL Hct 31.5 L (39.0-53.0) % POC Glucose (mg/dL) 143 H 112 H (75-99) mg/dL 09/08/19 Range/Units 11:35 RBC (4.30-5.90) m/uL Hgb (13.0-17.5) gm/dL Hct (39.0-53.0) % POC Glucose (mg/dL) 102 H (75-99) mg/dL Microbiology - Last 24 Hours (Table) 09/07/19 06:28 Blood Culture Gram Stain - Preliminary Blood 09/07/19 06:28 Blood Culture - Final Blood 09/06/19 07:19 Blood Culture Gram Stain - Preliminary Blood Blood Culture - Preliminary Presumptive MRSA Assessment and Plan Plan: -Severe sepsis secondary to MRSA bacteremia urinary tract infection can still be the source. Patient has MRSA bacteremia persistent PE showed thrombus in the left atrium probably the source of bacteremiaultrasound of the kidney to rule out any perinephric abscess. Repeat blood cultures today . patient continues to have bacteremia last positive cultures were from 26th of this month -Extensive venous stasis dermatosis and bilateral pedal edema from venous stasis dermatosis -Type 2 diabetes mellitus continue with present regimen uncontrolled and elevated blood sugars titration of insulin depending on the blood sugars and sliding scale needs -Generalized weakness secondary to sepsis -Parkinson's -Hypothyroidism -COPD without any acute exacerbation -Acute kidney injury: From sepsis improved -Chronic kidney disease stage 2-3 -Diabetic peripheral neuropathy.
[2019-09-08] MEDS: DAPTOmycin 750 MG in SODIUM CHLORIDE 0.9% 50 ML IVPB SCH (15:45)
[2019-09-08 17:07] LABS: Glucose,Whole Blood 152 mg/dL (75-99)
[2019-09-08] MEDS: INSULIN DETEMIR (LEVEMIR) 100 UNIT/ML SYR SQ SCH (20:24)
[2019-09-08 20:26] LABS: Glucose,Whole Blood 138 mg/dL (75-99)
[2019-09-09] MEDS: LEVOTHYROXINE 100 MCG TAB PO SCH (05:08)
[2019-09-09] MEDS ORDERED: GENTAMICIN TROUGH DUE 1 EACH MISC MISCELLANE ONE (07:00)
[2019-09-09 07:05] LABS: Basophils % (A) 0 %; Eosinophils # (A) 0.1 k/uL (0-0.7); Eosinophils % (A) 1 %; HCT 34.1 % (39.0-53.0); HGB 11.1 gm/dL (13.0-17.5); Lymphocytes # (A) 1.7 k/uL (1.0-4.8); Lymphocytes % (A) 17 %; MCH 30.3 pg (25.0-35.0); MCHC 32.5 g/dL (31.0-37.0); MCV 93.3 fL (80.0-100.0); Mean Platelet Volume 6.8; Monocytes # (A) 0.5 k/uL (0-1.0); Monocytes % (A) 5 %; Neutrophils # (A) 7.1 k/uL (1.3-7.7); Neutrophils % (A) 74 %; Platelet Count 352 k/uL (150-450); RBC 3.66 m/uL (4.30-5.90); RDW 13.2 % (11.5-15.5); WBC 9.6 k/uL (3.8-10.6)
[2019-09-09] MEDS: INSULIN ASPART (NovoLOG) 100 UNIT/ML VIAL SQ SCH ×5 (07:17→20:14)
[2019-09-09 07:26] LABS: Albumin 2.5 g/dL (3.5-5.0); Calcium 8.7 mg/dL (8.4-10.2); Potassium 3.4 mmol/L (3.5-5.1); Total Bilirubin 0.4 mg/dL (0.2-1.3); Total Protein 5.5 g/dL (6.3-8.2)
[2019-09-09 07:28] LABS: Glucose,Whole Blood 59 mg/dL (75-99)
[2019-09-09 07:52] LABS: Glucose,Whole Blood 54 mg/dL (75-99)
[2019-09-09] MEDS: GENTAMICIN 100 MG in SODIUM CHLORIDE 0.9% 100 ML IVPB SCH (07:55)
[2019-09-09] MEDS: CARBIDOPA-LEVODOPA 25-100 MG 1 EACH TAB PO SCH ×3 (07:59→21:34)
[2019-09-09] MEDS: APIXABAN 5 MG TAB PO SCH ×2 (07:59→21:34)
[2019-09-09] MEDS: METOPROLOL TARTRATE 25 MG TAB PO SCH ×2 (07:59→21:34)
[2019-09-09] MEDS: LISINOPRIL 20 MG TAB PO SCH (07:59)
[2019-09-09] MEDS: ALLOPURINOL 100 MG TAB PO SCH (07:59)
[2019-09-09] MEDS: amLODIPine 10 MG TAB PO SCH (07:59)
[2019-09-09 08:12] LABS: Glucose,Whole Blood 65 mg/dL (75-99)
[2019-09-09 08:31] LABS: Glucose,Whole Blood 73 mg/dL (75-99)
[2019-09-09 08:58] LABS: Glucose,Whole Blood 99 mg/dL (75-99)
[2019-09-09] MEDS ORDERED: GENTAMICIN PEAK DUE 1 EACH MISC MISCELLANE ONE (09:30)
[2019-09-09 11:05] LABS: Glucose,Whole Blood 96 mg/dL (75-99)
[2019-09-09] MEDS ORDERED: Potassium Replacement Protocol 1 EACH MISC MISCELLANE PRN (11:14)
[2019-09-09] MEDS: POTASSIUM CHLORIDE ER 20 MEQ TAB.ER PO SCH ×2 (12:11→13:07)
[2019-09-09 12:13] LABS: Glucose,Whole Blood 109 mg/dL (75-99)
--- NOTE | 2019-09-09 13:04 | P.PN ---
Subjective 73-year-old male came in because of possible Infection as patient felt quite weak and lethargic found to have high-grade fever found to be septic with the lactic acidosis. Patient does take Lasix at home regimen of history of congestive heart failure. Patient does have Parkinson's and is on carbidopa levodopa for that. Patient lowered himself to Because of Generalized Weakness. Patient Chest X-Ray Did Not Show Pneumonia but Urine Is Significant Abnormality Patient Does Have History of UTI in the past Patient Has Enterococcus Which Is Resistant to Penicillin but Sensitive to Vancomycin. Patient Also Had MRSA UTI in the past. Urine Cultures Blood Cultures Were Obtained. 09/01/2019 Patient is lying in bed in no acute distress with no acute overnight issues. Patient states that he continues to feel weak and has been working with PT/OT. Infectious disease is following. Patient's blood cultures have resulted with presumptive MRSA and repeat blood cultures are pending at this time. Patient is currently on IV antibiotics in the form of ceftriaxone and vancomycin and will continue at this time. Patient denies any chest pain, shortness of breath, or palpitations. Patient has been afebrile. Patient denies any nausea or vomiting and is tolerating diet. Patient states that he has been falling more frequently at home in case management and social work are following for discharge planning as the patient may require rehab upon discharge. Will continue to monitor closely. 09/02/2019 Patient is lying in bed in no acute distress with no acute overnight issues. Repeat blood cultures have shown presumptive MRSA. Infectious disease is following. Patient is having some right knee pain an x-ray was done showing no fracture nor dislocation and joint spaces are normal with no signs of joint effusion. Patient is currently on IV antibiotics in the form of vancomycin and will continue at this time. Patient is on gentle IV hydration at 75mL/hr his creatinine is improving and is currently 1.56. White blood count is trending down and is currently 11.3. Will repeat a.m. labs. Cardiology is consulted and is pending at this time. Will continue to monitor vital signs and labs closely. 09/03/2019 Patient had persistent bacteremia will obtain ultrasound of the kidney to rule out any perinephric abscess along with the possible endocarditis. Patient is feeling a bit better today. Afebrile. 09/04/2019 Blood cultures from yesterday were negative. Patient will undergo SAL tomorrow ultrasound of the kidney did not show any perinephric abscess. Patient is feeling a little stronger today Constitutional: Denied any fatigue denied any fever. Cardio vascular: denied any chest pain, palpitations Gastrointestinal denied any nausea vomiting Pulmonary: Denied any shortness of breath cough Neurologic denied any new focal deficits 09/05/2019 Patient is lying in bed in no acute distress with no acute overnight issues. Patient is to undergo a SAL today around noon. Will await report. Patient is quite lethargic and continues to fall in and out of sleep while conversing. Currently patient denies any chest pain, shortness of breath, or palpitations. Patient is afebrile. Patient denies any nausea or vomiting and has been tolerating diet. Patient states he is tired today. Blood cultures from yesterday have a preliminary reading of gram-positive cocci. Infectious disease is following. Will continue to monitor closely. 09/06/2019 Patient is sitting up in the chair in no acute distress with no acute overnight issues. Cardiology and infectious disease are following. Patient underwent a SAL yesterday showing no definite evidence of vegetations on the aortic valve and no vegetation noted on the mitral or tricuspid valves but did have a thrombus in the left atrial appendage that is about 1 cm in size. LV systolic function is normal and interatrial septum is intact. Patient was started on Eliquis and will continue at this time. Patient's blood cultures continue to show MRSA and will repeat blood cultures daily to monitor closely. Patient is currently on IV antibiotics in the form of daptomycin and will continue at this time. Vancomycin was discontinued. Currently patient denies any chest pain, shortness of breath, or palpitations. Patient has been afebrile. Patient denies any nausea or vomiting and has been tolerating diet. Patient States that he is urinating well with no issues but has not had a bowel movement in 3 days. Dulcolax was ordered. 09/07/2019 Patient is sitting up in the chair in no acute distress with no acute overnight issues. Family is at the bedside. Discussed with the family and patient at length today about CODE STATUS and patient's wishes are to be made a no code as he states "he does not want to be a vegetable something were to happen." Patient is much more awake and alert today and is sitting up having full conversation. Patient denies any chest pain, shortness of breath, or palpitations. Patient is afebrile. She denies any nausea or vomiting and is tolerating diet. Patient's repeat blood cultures continue to be positive and are showing gram-positive cocci. Patient continues to have elevated blood pressure and Norvasc 10 mg will be added today. Will continue to monitor closely. Patient is currently on IV antibiotics in the form of daptomycin and will continue at this time. Infectious disease is following. 09/08/2019 patient's last blood culturesthat was positive at from of this month. Patient is still lethargic 09/09/2019 Patient remained is lethargic no significant change in his clinical condition patient is bit hypoglycemic today discontinue the pre-meal insulin will discontinue sliding scale insulin will cut down the Lantus dose. Patient blood cultures from are clear. Last positive blood cultures from the 07 September Constitutional: as mentioned in HPI Cardio vascular: denied any chest pain, palpitations Gastrointestinal denied any nausea vomiting Pulmonary: Denied any shortness of breath cough Neurologic denied any new focal deficits All inpatient medications were reviewed and appropriate changes in these medications as dictated in the interval history and assessment and plan. Objective - Vital Signs Vital signs: Vital Signs Temp 98.2 F 09/09/19 07:09 Pulse 77 09/09/19 07:09 Resp 18 09/09/19 07:09 BP 146/77 09/09/19 07:09 Pulse Ox 95 09/09/19 07:09 Intake & Output 09/08/19 09/09/19 09/09/19 18:59 06:59 18:59 Intake Total 480 720 Balance 480 720 Weight 112 kg 112.6 kg Intake: Oral 480 720 Other: Voiding Method Urinal Diaper Diaper Incontinent Incontinent # Voids 3 2 # Bowel Movements 1 - Exam - Exam GENERAL: The patient is alert and oriented x3,. Well developed, well nourished. quite a bit lethargic HEENT: Pupils are round and equally reacting to light. EOMI. No scleral icterus. No conjunctival pallor. Normocephalic, atraumatic. No pharyngeal erythema. No thyromegaly. CARDIOVASCULAR: S1 and S2 present. No murmurs, rubs, or gallops. PULMONARY: Chest is clear to auscultation, no wheezing or crackles. ABDOMEN: Soft, nontender, nondistended, normoactive bowel sounds. No palpable organomegaly. MUSCULOSKELETAL: No joint swelling or deformity. Right knee pain EXTREMITIES: No cyanosis, clubbing, or pedal edema. NEUROLOGICAL: Gross neurological examination did not reveal any focal deficits. SKIN: No rashes. - Labs CBC & Chem 7: 09/09/19 06:50 09/09/19 06:50 Labs: Abnormal Lab Results - Last 24 Hours (Table) 09/08/19 09/08/19 09/09/19 Range/Units 16:55 20:14 06:50 RBC 3.66 L (4.30-5.90) m/uL Hgb 11.1 L (13.0-17.5) gm/dL Hct 34.1 L (39.0-53.0) % Potassium (3.5-5.1) mmol/L Glucose (74-99) mg/dL POC Glucose (mg/dL) 152 H 138 H (75-99) mg/dL AST (17-59) U/L ALT (21-72) U/L Total Protein (6.3-8.2) g/dL Albumin (3.5-5.0) g/dL 09/09/19 09/09/19 09/09/19 Range/Units 06:50 07:16 07:41 RBC (4.30-5.90) m/uL Hgb (13.0-17.5) gm/dL Hct (39.0-53.0) % Potassium 3.4 L (3.5-5.1) mmol/L Glucose 54 L (74-99) mg/dL POC Glucose (mg/dL) 59 L 54 L (75-99) mg/dL AST 15 L (17-59) U/L ALT 8 L (21-72) U/L Total Protein 5.5 L (6.3-8.2) g/dL Albumin 2.5 L (3.5-5.0) g/dL 09/09/19 09/09/19 09/09/19 Range/Units 08:00 08:18 12:01 RBC (4.30-5.90) m/uL Hgb (13.0-17.5) gm/dL Hct (39.0-53.0) % Potassium (3.5-5.1) mmol/L Glucose (74-99) mg/dL POC Glucose (mg/dL) 65 L 73 L 109 H (75-99) mg/dL AST (17-59) U/L ALT (21-72) U/L Total Protein (6.3-8.2) g/dL Albumin (3.5-5.0) g/dL Microbiology - Last 24 Hours (Table) 09/08/19 08:00 Blood Culture Gram Stain - Preliminary Blood Blood Culture - Preliminary Presumptive MRSA 09/08/19 08:00 Blood Culture - Final Blood 09/07/19 06:28 Blood Culture Gram Stain - Preliminary Blood Blood Culture - Preliminary Presumptive MRSA 09/06/19 07:19 Blood Culture Gram Stain - Final Blood Blood Culture - Final Methicillin resist S. aureus Assessment and Plan Plan: -Severe sepsis secondary to MRSA bacteremia urinary tract infection can still be the source. Patient has MRSA bacteremia persistent PE showed thrombus in the left atrium probably the source of bacteremiaultrasound of the kidney to rule out any perinephric abscess. Repeat blood cultures today . patient continues to have bacteremia last positive cultures were from of this month -Extensive venous stasis dermatosis and bilateral pedal edema from venous stasis dermatosis -Type 2 diabetes mellitus, hypoglycemic today change in insulin regimen as mentioned above -Generalized weakness secondary to sepsis -Parkinson's -Hypothyroidism -COPD without any acute exacerbation -Acute kidney injury: From sepsis improved -Chronic kidney disease stage 2-3 -Diabetic peripheral neuropathy.
[2019-09-09] MEDS: DAPTOmycin 750 MG in SODIUM CHLORIDE 0.9% 50 ML IVPB SCH (15:03)
[2019-09-09 17:06] LABS: Glucose,Whole Blood 136 mg/dL (75-99)
[2019-09-09] MEDS: INSULIN DETEMIR (LEVEMIR) 100 UNIT/ML SYR SQ SCH (20:14)
[2019-09-09 20:24] LABS: Glucose,Whole Blood 131 mg/dL (75-99)
--- NOTE | 2019-09-09 21:19 | P.PN ---
Subjective Progress Note Date: 09/09/19 79-year-old male who lives in the family home with his spouse and grandchildren relates that he's been feeling poorly for a few days. He became very weak and actually lowered himself to the ground because he was so weak. EMS was called and he was brought to hospital. He was on evidence of a fever as well as leukocytosis and feeling quite poorly. Patient has a long-standing history of Parkinson's and is a limited historian. He denies severe pain at this time. 09/02/2019 patient remains a poor historian but he is a bit stronger and may have sitting up in the chair. He has no significant complaints. 09/05/2019 patient remains fatigued and feels ill but has been able to sit up in a chair, denies fevers or chills. SAL has now been performed. September 06 2019 the patient is sleepy and difficult to arouse this afternoon. His untouched lunch is next to him. His status is discussed with the nurse. He has been quite sleepy through the morning into the early afternoon. She will reassess if he does awaken make sure there some assistance in eating his meal. 09/07/2019 patient continues to be with ongoing sepsis and ongoing bacteremia despite antibiotic therapy and change of antibiotic therapy daptomycin. He is still very weak and ill which is quite different from his baseline. Discussion occurred with the primary care team yesterday. And the patient is now been appropriate and made no code is receiving ongoing aggressive interventions. August 31 the patient is more awake alert and interactive today. He seems to be modestly comfortable in is not complaining of severe pain. Laboratories reviewed he has evidence of ongoing bacteremia. Objective - Vital Signs Vital signs: Vital Signs Temp 99.3 F 09/09/19 20:00 Pulse 72 09/09/19 20:00 Resp 18 09/09/19 20:00 BP 150/71 09/09/19 20:00 Pulse Ox 96 09/09/19 20:00 Intake & Output 09/09/19 09/09/19 09/10/19 06:59 18:59 06:59 Intake Total 480 1020 Balance 480 1020 Weight 112.6 kg Intake: Oral 480 1020 Other: Voiding Method Diaper Incontinent # Voids 2 3 - Exam 79-year-old male who seems to be comfortable, he was arousable but is noted is a very poor historian. HEENT: Anicteric conjunctiva are pink and moist nasal mucosa grossly intact w ithout significant lesions, there is no thrush. Has dentures Neck: The neck is supple without significant lymphadenopathy or thyromegaly. Lungs: There is symmetrical bilateral air entry with few crackles at the bases no significant wheezing Heart: Irregular with a soft S4. No murmur click or rub Abdomen: Mildly obese, Positive bowel sounds soft and nontender without palpable masses or organomegaly. There was no guarding or rebound. Extremities: The upper extremities have excellent pulses they are symmetric, no significant petechiae or telangiectasia. No splinter hemorrhages were noted. Lower extremities have evidence of extensive bilateral lower extremity edema, skin is thickened toenails are untrimmed no open ulcerations are seen Neuro: Patient is much more awake alert and interactive today. He does converse with the observer. - Labs CBC & Chem 7: 09/09/19 06:50 09/09/19 14:51 Labs: Abnormal Lab Results - Last 24 Hours (Table) 09/09/19 09/09/19 09/09/19 Range/Units 06:50 06:50 07:16 RBC 3.66 L (4.30-5.90) m/uL Hgb 11.1 L (13.0-17.5) gm/dL Hct 34.1 L (39.0-53.0) % Potassium 3.4 L (3.5-5.1) mmol/L Glucose 54 L (74-99) mg/dL POC Glucose (mg/dL) 59 L (75-99) mg/dL AST 15 L (17-59) U/L ALT 8 L (21-72) U/L Total Protein 5.5 L (6.3-8.2) g/dL Albumin 2.5 L (3.5-5.0) g/dL 09/09/19 09/09/19 09/09/19 Range/Units 07:41 08:00 08:18 RBC (4.30-5.90) m/uL Hgb (13.0-17.5) gm/dL Hct (39.0-53.0) % Potassium (3.5-5.1) mmol/L Glucose (74-99) mg/dL POC Glucose (mg/dL) 54 L 65 L 73 L (75-99) mg/dL AST (17-59) U/L ALT (21-72) U/L Total Protein (6.3-8.2) g/dL Albumin (3.5-5.0) g/dL 09/09/19 09/09/19 09/09/19 Range/Units 12:01 16:54 20:13 RBC (4.30-5.90) m/uL Hgb (13.0-17.5) gm/dL Hct (39.0-53.0) % Potassium (3.5-5.1) mmol/L Glucose (74-99) mg/dL POC Glucose (mg/dL) 109 H 136 H 131 H (75-99) mg/dL AST (17-59) U/L ALT (21-72) U/L Total Protein (6.3-8.2) g/dL Albumin (3.5-5.0) g/dL Microbiology - Last 24 Hours (Table) 09/08/19 08:00 Blood Culture Gram Stain - Preliminary Blood Blood Culture - Preliminary Presumptive MRSA 09/08/19 08:00 Blood Culture - Final Blood 09/07/19 06:28 Blood Culture Gram Stain - Preliminary Blood Blood Culture - Preliminary Presumptive MRSA 09/06/19 07:19 Blood Culture Gram Stain - Final Blood Blood Culture - Final Methicillin resist S. aureus Laboratory Results WBC 9.6 k/uL (3.8-10.6) 09/09/19 06:50 RBC 3.66 m/uL (4.30-5.90) L 09/09/19 06:50 Hgb 11.1 gm/dL (13.0-17.5) L 09/09/19 06:50 Hct 34.1 % (39.0-53.0) L 09/09/19 06:50 MCV 93.3 fL (80.0-100.0) 09/09/19 06:50 MCH 30.3 pg (25.0-35.0) 09/09/19 06:50 MCHC 32.5 g/dL (31.0-37.0) 09/09/19 06:50 RDW 13.2 % (11.5-15.5) 09/09/19 06:50 Plt Count 352 k/uL (150-450) 09/09/19 06:50 Neutrophils % 74 % 09/09/19 06:50 Lymphocytes % 17 % 09/09/19 06:50 Monocytes % 5 % 09/09/19 06:50 Eosinophils % 1 % 09/09/19 06:50 Basophils % 0 % 09/09/19 06:50 Neutrophils # 7.1 k/uL (1.3-7.7) 09/09/19 06:50 Lymphocytes # 1.7 k/uL (1.0-4.8) 09/09/19 06:50 Monocytes # 0.5 k/uL (0-1.0) 09/09/19 06:50 Eosinophils # 0.1 k/uL (0-0.7) 09/09/19 06:50 Basophils # 0.0 k/uL (0-0.2) 09/09/19 06:50 PT 10.4 sec (9.0-12.0) 08/31/19 01:55 INR 1.0 (<1.2) 08/31/19 01:55 APTT 22.1 sec (22.0-30.0) 08/31/19 01:55 Sample Site rrad 09/06/19 16:12 ABG pH 7.43 (7.35-7.45) 09/06/19 16:12 ABG pCO2 37 mmHg (35-45) 09/06/19 16:12 ABG pO2 88 mmHg (83-108) 09/06/19 16:12 ABG HCO3 24 mmol/L (21-25) 09/06/19 16:12 ABG Total CO2 26 mmol/L (19-24) H 09/06/19 16:12 ABG O2 Saturation 97.1 % (94-97) H 09/06/19 16:12 ABG Base Excess 0.2 mmol/L 09/06/19 16:12 Job Test Yes 09/06/19 16:12 FiO2 28 % 09/06/19 16:12 Sodium 141 mmol/L (137-145) 09/09/19 06:50 Potassium 4.0 mmol/L (3.5-5.1) 09/09/19 14:51 Chloride 105 mmol/L (98-107) 09/09/19 06:50 Carbon Dioxide 28 mmol/L (22-30) 09/09/19 06:50 Anion Gap 8 mmol/L 09/09/19 06:50 BUN 9 mg/dL (9-20) 09/09/19 06:50 Creatinine 1.18 mg/dL (0.66-1.25) 09/09/19 06:50 Est GFR (CKD-EPI)AfAm 68 (>60 ml/min/1.73 sqM) 09/09/19 06:50 Est GFR (CKD-EPI)NonAf 59 (>60 ml/min/1.73 sqM) 09/09/19 06:50 Glucose 54 mg/dL (74-99) L 09/09/19 06:50 POC Glucose (mg/dL) 131 mg/dL (75-99) H 09/09/19 20:13 POC Glu Fermenting Cellar Dropper ID Jenn Burhc 09/09/19 20:[address] Glu mg/dL 206 09/01/19 06:30 Hemoglobin A1c 8.8 % (4.0-6.0) H 09/01/19 06:30 Lactic Ac Sepsis Rflx Y 08/31/19 02:45 Plasma Lactic Acid Riley 0.7 mmol/L (0.7-2.0) 09/06/19 16:44 Calcium 8.7 mg/dL (8.4-10.2) 09/09/19 06:50 Total Bilirubin 0.4 mg/dL (0.2-1.3) 09/09/19 06:50 AST 15 U/L (17-59) L 09/09/19 06:50 ALT 8 U/L (21-72) L 09/09/19 06:50 Alkaline Phosphatase 74 U/L (38-126) 09/09/19 06:50 Troponin I 0.018 ng/mL (0.000-0.034) 08/31/19 01:55 Total Protein 5.5 g/dL (6.3-8.2) L 09/09/19 06:50 Albumin 2.5 g/dL (3.5-5.0) L 09/09/19 06:50 Urine Color Yellow 08/31/19 02:48 Urine Appearance Cloudy (Clear) 08/31/19 02:48 Urine pH 5.5 (5.0-8.0) 08/31/19 02:48 Ur Specific [place] 1.015 (1.001-1.035) 08/31/19 02:48 Urine Protein 1+ (Negative) H 08/31/19 02:48 Urine Glucose (UA) 2+ (Negative) H 08/31/19 02:48 Urine Ketones Negative (Negative) 08/31/19 02:48 Urine Blood Trace (Negative) H 08/31/19 02:48 Urine Nitrite Negative (Negative) 08/31/19 02:48 Urine Bilirubin Negative (Negative) 08/31/19 02:48 Urine Urobilinogen <2.0 mg/dL (<2.0) 08/31/19 02:48 Ur Leukocyte Esterase Large (Negative) H 08/31/19 02:48 Urine RBC 2 /hpf (0-5) 08/31/19 02:48 Urine WBC 176 /hpf (0-5) H 08/31/19 02:48 Urine WBC Clumps Many /hpf (None) H 08/31/19 02:48 Ur Squamous Epith Cells <1 /hpf (0-4) 08/31/19 02:48 Urine Bacteria Rare /hpf (None) H 08/31/19 02:48 Hyaline Casts 3 /lpf (0-2) H 08/31/19 02:48 Urine Mucus Rare /hpf (None) H 08/31/19 02:48 Urine Yeast (Budding) Few /hpf (None) H 08/31/19 02:48 Gentamicin Peak 5.0 ug/mL 09/09/19 09:32 Gentamicin Trough 1.9 ug/mL 09/09/19 06:50 Vancomycin Trough 14.9 ug/mL 09/05/19 06:35 Influenza Type A RNA Not Detected (Not Detectd) 08/31/19 01:55 Influenza Type B (PCR) Not Detected (Not Detectd) 08/31/19 01:55 Microbiology 09/08/19 08:00 Blood Blood Culture Gram Stain - Preliminary 09/08/19 08:00 Blood Blood Culture - Preliminary Presumptive MRSA 09/08/19 08:00 Blood Blood Culture - Final 09/07/19 06:28 Blood Blood Culture Gram Stain - Preliminary 09/07/19 06:28 Blood Blood Culture - Preliminary Presumptive MRSA 09/06/19 07:19 Blood Blood Culture Gram Stain - Final 09/06/19 07:19 Blood Blood Culture - Final Methicillin resist S. aureus 09/07/19 06:28 Blood Blood Culture - Final 09/06/19 07:19 Blood Blood Culture - Final 09/04/19 05:54 Blood Blood Culture Gram Stain - Final 09/04/19 05:54 Blood Blood Culture - Final Methicillin resist S. aureus 09/03/19 06:39 Blood Blood Culture Gram Stain - Final 09/03/19 06:39 Blood Blood Culture - Final Methicillin resist S. aureus 08/31/19 02:48 Urine,Clean Catch Urine Culture - Final Summer glabrata 08/31/19 22:29 Blood Blood Culture Gram Stain - Final 08/31/19 22:29 Blood Blood Culture - Final Methicillin resist S. aureus 08/31/19 22:03 Blood Blood Culture Gram Stain - Final 08/31/19 22:03 Blood Blood Culture - Final Methicillin resist S. aureus 09/04/19 05:54 Blood Blood Culture - Final 09/03/19 06:39 Blood Blood Culture - Final 08/31/19 01:55 Blood Blood Culture Gram Stain - Final 08/31/19 01:55 Blood Blood Culture - Final Methicillin resist S. aureus 08/31/19 22:03 Blood Blood Culture - Final 08/31/19 22:29 Blood Blood Culture - Final 08/31/19 01:55 Blood Blood Culture - Final Assessment and Plan (1) Bacteremia Narrative/Plan: 79-year-old male who has a history of diabetes, Parkinson's disease and history of bladder cancer that has been treated with surgical intervention as well as intravesicular treatment. He now presents with a worsening of his status showing evidence of a high-grade fever, leukocytosis, elevated lactic acid which are all consistent with recurrent sepsis from urinary system in this debilitated gentleman. Antibiotic therapy was begun with vancomycin based on his recent urine cultures that showed evidence of MRSA and enterococcus that was not vancomycin resistant. There is evidence of the positive blood culture with gram-positive cocci. The patient has had an echocardiogram done earlier this year without evidence of any severe valvular disease. At this time with continued vancomycin therapy. Will request follow blood cultures to be performed to evaluate clearance of bacteremia with treatment of antibiotic therapy. With the development of bacteremia will need outpatient in travenous antibiotic therapy. The lower extremities evidence of chronic edema but there does not appear to be any open ulcerations or cellulitis, local care with elevation and compression stockings could be helpful. 09/02/2019 patient is bit stronger, but has evidence of ongoing positive blood cultures. Conservatively to urinary source and ultrasound of the kidneys has been requested to evaluate for any type of obstruction problem or renal abscess. Also perinephric abscess. By November vancomycin continues. We'll follow blood cultures again tomorrow to see be certain occurs bacteremia with therapy. He 15 feels slightly better but still has ongoing acute illness at this time. 09/05/2019 the patient remains chronically ill feeling somewhat poorly. He is having improvement of his fever but there remains ongoing positive blood cultures. With this we'll transition vancomycin to daptomycin and high-dose. We'll monitor a weekly CK level. Once we have clearance of his bacteremia will need some type of IV access to allow treatment post hospital stay. The etiology of the ongoing bacteremia could be the clots within the left atrium and may require a longer time for clearance of his bacteremia. There is no evidence of any urinary source as noted by the relatively normal renal ultras ound. Patient does feel somewhat better than admission and hopefully be able to start with the discharge plan. 09/06/2019 the patient had SAL performed that shows evidence of the left atrial clot in this is the likely etiology of his persistent bacteremia. Antibiotic therapy was altered yesterday to high-dose daptomycin with evidence of vancomycin failure. We'll continue to monitor and follow blood cultures are reportedly been performed. The patient however is much more sedated today. He has not really arousing very well. Concerns are brought to the nurse to contact the hospitalist to ensure that this has not been a significant change of his status which is concerning because of his persistent bacteremia and left atrial clot. 09/07/2019 the patient remains significantly ill with ongoing bacteremia, ongoing altered mentation but is hematologically stable. Antibiotic therapy continues with daptomycin which was just changed and will add a few doses of gentamicin to try to clear the bacteremia. It appears that the clot in the left atrium is the nidus for the current and ongoing bacteremia. His prognosis is poor and appropriately has been made no code at this point in time. If bacteremia clears he will then require 6 weeks of intravenous antibiotic therapy and rehab facility. 09/09/2019 the patient has some improvement of his status today. His mentation is definitely improved since his last evaluation. However he continues evidence of positive blood cultures. Antibiotic therapy is ready been transitioned from vancomycin to high-dose daptomycin. Despite this there are still some positive blood cultures. Gentamicin was added but he with this there appears to be some positive blood cultures. We'll add Rocephin and attempt for further synergistic bacteriocidal effect the try to clear his bacteremia. He is on Sinemet and is not a candidate for Zyvox therapy. The patient fortunately is feeling somewhat better, has no fever and leukocytosis is improved over time. Follow cultures are being followed. Current Visit: Yes Status: Acute Code(s): R78.81 - BACTEREMIA SNOMED Code(s): 2421724 (2) Urinary tract infection Current Visit: Yes Status: Acute Code(s): N39.0 - URINARY TRACT INFECTION, SITE NOT SPECIFIED SNOMED Code(s): 19741180 (3) Leukocytosis Current Visit: Yes Status: Acute Code(s): D72.829 - ELEVATED WHITE BLOOD CELL COUNT, UNSPECIFIED SNOMED Code(s): 051503491 (4) Acute sepsis Current Visit: Yes Status: Acute Code(s): A41.9 - SEPSIS, UNSPECIFIED ORGANISM SNOMED Code(s): 71227865
[2019-09-10] MEDS: GENTAMICIN 100 MG in SODIUM CHLORIDE 0.9% 100 ML IVPB SCH ×2 (02:22→19:26)
[2019-09-10] MEDS: LEVOTHYROXINE 100 MCG TAB PO SCH (05:13)
[2019-09-10 07:12] LABS: Glucose,Whole Blood 157 mg/dL (75-99)
[2019-09-10 07:21] LABS: Calcium 8.6 mg/dL (8.4-10.2); Potassium 4.4 mmol/L (3.5-5.1)
[2019-09-10] MEDS: LISINOPRIL 20 MG TAB PO SCH (08:28)
[2019-09-10] MEDS: INSULIN ASPART (NovoLOG) 100 UNIT/ML VIAL SQ SCH ×4 (08:28→21:42)
[2019-09-10] MEDS: amLODIPine 10 MG TAB PO SCH (08:28)
[2019-09-10] MEDS: APIXABAN 5 MG TAB PO SCH ×2 (08:28→21:45)
[2019-09-10] MEDS: CARBIDOPA-LEVODOPA 25-100 MG 1 EACH TAB PO SCH ×3 (08:29→21:45)
[2019-09-10] MEDS: ALLOPURINOL 100 MG TAB PO SCH (08:29)
[2019-09-10] MEDS: METOPROLOL TARTRATE 25 MG TAB PO SCH ×2 (08:29→21:45)
[2019-09-10 11:16] LABS: Glucose,Whole Blood 179 mg/dL (75-99)
[2019-09-10] MEDS: DAPTOmycin 750 MG in SODIUM CHLORIDE 0.9% 50 ML IVPB SCH (15:04)
[2019-09-10 16:40] LABS: Glucose,Whole Blood 145 mg/dL (75-99)
--- NOTE | 2019-09-10 18:33 | P.PN ---
Subjective Progress Note Date: 09/10/19 Principal diagnosis: MRSA bacteremia Mr. Peterson is a 73-year-old male with chronic medical conditions including atrial flutter, congestive heart failure, COPD, diverticulitis, hypertension, thyroid disorder, bladder cancer coming into the hospital for fevers and lethargy. The workup for his fever with showed left atrial thrombus. And his blood cultures have been continuously positive for MRSA. Patient is currently on IV daptomycin , gentamicin and ceftriaxone as per ID Dr. Childs recommendations. On 09/10/2019- as per the nursing staff report patient is more alert compared to yesterday. He complains of fatigue. Denies having any chest pain or difficulty in breathing. No cough. Denies having any fevers chills or rigors. No abdominal pain nausea vomiting or diarrhea. No dysuria or hematuria. His blood cultures from the are still positive for MRSA. Patient's medications and labs have been reviewed. Active Medications Acetaminophen (Tylenol Tab) 650 mg PO Q6H PRN PRN Reason: Mild Pain Last Admin: 09/05/19 20:36 Dose: 650 mg Documented by: Albuterol Sulfate (Ventolin Nebulized) 2.5 mg INHALATION RT-Q6H PRN PRN Reason: Shortness Of Breath Allopurinol (Zyloprim) 100 mg PO DAILY [facility] Last Admin: 09/10/19 08:29 Dose: 100 mg Documented by: Amlodipine Besylate (Norvasc) 10 mg PO DAILY [facility] Last Admin: 09/10/19 08:28 Dose: 10 mg Documented by: Apixaban (Eliquis) 5 mg PO BID [facility] Last Admin: 09/10/19 08:28 Dose: 5 mg Documented by: Bisacodyl (Dulcolax) 10 mg PO DAILY PRN PRN Reason: Constipation Carbidopa/Levodopa (Sinemet 25-100) 2 each PO TID UMAIR Last Admin: 09/10/19 16:26 Dose: 2 each Documented by: Ergocalciferol (Vitamin D2) 50,000 unit PO Q14D UMAIR Last Admin: 09/02/19 09:41 Dose: 50,000 unit Documented by: Daptomycin 750 mg/ Sodium (Chloride) 50 mls @ 100 mls/hr IVPB Q24H UMAIR; Pro tocol Last Admin: 09/10/19 15:04 Dose: 100 mls/hr Documented by: Gentamicin Sulfate 100 mg/ (Sodium Chloride) 102.5 mls @ 102.5 mls/hr IVPB Q18H [facility] Last Admin: 09/10/19 02:22 Dose: 102.5 mls/hr Documented by: Ceftriaxone Sodium 2 gm/ (Sodium Chloride) 50 mls @ 100 mls/hr IVPB Q24HR [facility] Last Admin: 09/10/19 08:29 Dose: 100 mls/hr Documented by: Insulin Aspart (Novolog) 0 unit SQ ACHS [facility]; Protocol Last Admin: 09/10/19 17:24 Dose: 1 unit Documented by: Insulin Detemir (Levemir) 12 unit SQ HS [facility] Last Admin: 09/09/19 20:14 Dose: Not Given Documented by: Levothyroxine Sodium (Synthroid) 100 mcg PO DAILY@0630 [facility] Last Admin: 09/10/19 05:13 Dose: 100 mcg Documented by: Lisinopril (Zestril) 40 mg PO DAILY [facility] Last Admin: 09/10/19 08:28 Dose: 40 mg Documented by: Metoprolol Tartrate (Lopressor) 25 mg PO BID [facility] Last Admin: 09/10/19 08:29 Dose: 25 mg Documented by: Miscellaneous Information (Potassium Per Protocol) 1 each MISCELLANE DAILY PRN; Protocol PRN Reason: Per Protocol Miscellaneous Information (Gentamicin Peak Due) 1 each MISCELLANE ONCE ONE Stop: 09/11/19 16:01 Miscellaneous Information (Gentamicin Trough Due) 1 each MISCELLANE ONCE ONE Stop: 09/11/19 13:31 Naloxone HCl (Narcan) 0.2 mg IV Q2M PRN PRN Reason: Opioid Reversal Ondansetron HCl (Zofran) 4 mg IVP Q6HR PRN PRN Reason: Nausea And Vomiting Objective - Vital Signs Vital signs: Vital Signs Temp 98.3 F 09/10/19 13:18 Pulse 64 09/10/19 13:18 Resp 16 09/10/19 13:18 BP 132/77 09/10/19 13:18 Pulse Ox 97 09/10/19 13:18 Intake & Output 09/09/19 09/10/19 09/10/19 18:59 06:59 18:59 Intake Total 1020 160 390 Output Total 300 440 Balance 1020 -140 -50 Weight 110.5 kg Intake: Intake, IV Titration 160 Amount Gentamicin 100 mg In 100 Sodium Chloride 0.9% 100 ml @ 102.5 mls/hr IVPB Q18H [facility] Rx#:[id number] Sodium Chloride 0.9% 500 60 ml 500 ml @ 0 mls/hr IV . [facility] Rx#: [id number] Oral 1020 390 Output: Urine 300 440 Other: Voiding Method Diaper Incontinent # Voids 3 1 1 # Bowel Movements 1 - Exam GENERAL: The patient is alert and oriented x3,. Chronically ill appearing HEENT: No pallor. No icterus. CARDIOVASCULAR: S1 and S2 present. No murmurs, rubs, or gallops. PULMONARY: Chest is clear to auscultation, decreased at the lower lung bases. ABDOMEN: Soft, nontender, nondistended, normoactive bowel sounds. No palpable organomegaly. MUSCULOSKELETAL: No joint swelling or deformity. EXTREMITIES: Lower extremities have evidence of extensive bilateral lower extremity edema, skin is thickened toenails are untrimmed no open ulcerations are seen NEUROLOGICAL: Gross neurological examination did not reveal any focal deficits. SKIN: No rashes. - Labs CBC & Chem 7: 09/09/19 06:50 09/10/19 06:29 Labs: Abnormal Lab Results - Last 24 Hours (Table) 09/09/19 09/10/19 09/10/19 Range/Units 20:13 06:29 06:50 Glucose 137 H (74-99) mg/dL POC Glucose (mg/dL) 131 H 157 H (75-99) mg/dL 09/10/19 09/10/19 Range/Units 11:05 16:27 Glucose (74-99) mg/dL POC Glucose (mg/dL) 179 H 145 H (75-99) mg/dL Microbiology - Last 24 Hours (Table) 09/08/19 08:00 Blood Culture Gram Stain - Final Blood Blood Culture - Final Methicillin resist S. aureus 09/09/19 06:50 Blood Culture - Final Blood 09/07/19 06:28 Blood Culture Gram Stain - Final Blood Blood Culture - Final Methicillin resist S. aureus Assessment and Plan Assessment: ASSESSMENT Severe sepsis secondary to MRSA bacteremia Urinary tract infection Extensive venous stasis dermatitis Type 2 diabetes mellitus Chronic debility Parkinson's disease Hypothyroidism COPD not in acute exacerbation AK I resolving CK D stage II to 3 Diabetic peripheral neuropathy PLAN: Continue the patient on IV daptomycin, ceftriaxone and gentamicin. Dr. Kevin acevedo ID on board and following the patient closely. Patient's blood cultures from the are still positive for MRSA. Continue with the rest of her current medication regimen. Overall prognosis is guarded. Patient is no code. Further recommendations to follow depending on the progress of the patient.
[2019-09-10 20:40] LABS: Glucose,Whole Blood 174 mg/dL (75-99)
[2019-09-10] MEDS: INSULIN DETEMIR (LEVEMIR) 100 UNIT/ML SYR SQ SCH (21:42)
[2019-09-11] MEDS: LEVOTHYROXINE 100 MCG TAB PO SCH (05:12)
[2019-09-11 06:50] LABS: Glucose,Whole Blood 145 mg/dL (75-99)
[2019-09-11] MEDS: INSULIN ASPART (NovoLOG) 100 UNIT/ML VIAL SQ SCH ×4 (07:25→20:26)
[2019-09-11] MEDS: ALLOPURINOL 100 MG TAB PO SCH (07:26)
[2019-09-11] MEDS: METOPROLOL TARTRATE 25 MG TAB PO SCH ×2 (07:26→20:27)
[2019-09-11] MEDS: CARBIDOPA-LEVODOPA 25-100 MG 1 EACH TAB PO SCH ×3 (07:26→20:27)
[2019-09-11] MEDS: APIXABAN 5 MG TAB PO SCH ×2 (07:26→20:27)
[2019-09-11] MEDS: LISINOPRIL 20 MG TAB PO SCH (07:26)
[2019-09-11] MEDS: amLODIPine 10 MG TAB PO SCH (07:26)
[2019-09-11 07:35] LABS: Basophils % (A) 0 %; Eosinophils # (A) 0.1 k/uL (0-0.7); Eosinophils % (A) 1 %; HCT 33.1 % (39.0-53.0); HGB 10.9 gm/dL (13.0-17.5); Lymphocytes # (A) 1.6 k/uL (1.0-4.8); Lymphocytes % (A) 17 %; MCH 30.8 pg (25.0-35.0); MCHC 32.8 g/dL (31.0-37.0); MCV 93.9 fL (80.0-100.0); Mean Platelet Volume 8.4; Monocytes # (A) 0.6 k/uL (0-1.0); Monocytes % (A) 6 %; Neutrophils # (A) 7.3 k/uL (1.3-7.7); Neutrophils % (A) 75 %; Platelet Count 386 k/uL (150-450); RBC 3.53 m/uL (4.30-5.90); RDW 13.2 % (11.5-15.5); WBC 9.7 k/uL (3.8-10.6)
[2019-09-11 08:02] LABS: Calcium 8.5 mg/dL (8.4-10.2); Potassium 4.3 mmol/L (3.5-5.1)
[2019-09-11 11:32] LABS: Glucose,Whole Blood 139 mg/dL (75-99)
--- NOTE | 2019-09-11 12:05 | P.PN ---
Subjective Progress Note Date: 09/11/19 79-year-old male who lives in the family home with his spouse and grandchildren relates that he's been feeling poorly for a few days. He became very weak and actually lowered himself to the ground because he was so weak. EMS was called and he was brought to hospital. He was on evidence of a fever as well as leukocytosis and feeling quite poorly. Patient has a long-standing history of Parkinson's and is a limited historian. He denies severe pain at this time. 09/02/2019 patient remains a poor historian but he is a bit stronger and may have sitting up in the chair. He has no significant complaints. 09/05/2019 patient remains fatigued and feels ill but has been able to sit up in a chair, denies fevers or chills. SAL has now been performed. September 06 2019 the patient is sleepy and difficult to arouse this afternoon. His untouched lunch is next to him. His status is discussed with the nurse. He has been quite sleepy through the morning into the early afternoon. She will reassess if he does awaken make sure there some assistance in eating his meal. 09/07/2019 patient continues to be with ongoing sepsis and ongoing bacteremia despite antibiotic therapy and change of antibiotic therapy daptomycin. He is still very weak and ill which is quite different from his baseline. Discussion occurred with the primary care team yesterday. And the patient is now been appropriate and made no code is receiving ongoing aggressive interventions. September 10 the patient is more awake alert and interactive today. He seems to be modestly comfortable in is not complaining of severe pain. Laboratories reviewed he has evidence of ongoing bacteremia. Sep feels better was able to transfer to the chair unassisted except walker. no fevers feels poorly overall Objective - Vital Signs Vital signs: Vital Signs Temp 98.5 F 09/11/19 07:00 Pulse 74 09/11/19 07:00 Resp 16 09/11/19 07:00 BP 148/68 09/11/19 07:00 Pulse Ox 96 09/11/19 07:00 Intake & Output 09/10/19 09/11/19 09/11/19 18:59 06:59 18:59 Intake Total 390 860 Output Total 440 Balance -50 860 Weight 118 kg Intake: Intake, IV Titration 320 Amount Gentamicin 100 mg In 200 Sodium Chloride 0.9% 100 ml @ 102.5 mls/hr IVPB Q18H [facility] Rx#:[id number] Sodium Chloride 0.9% 500 120 ml 500 ml @ 0 mls/hr IV . [facility] Rx#: [id number] Oral 390 540 Output: Urine 440 Other: Voiding Method Indwelling Catheter # Voids 1 2 1 - Exam 79-year-old male who seems to be comfortable, he was arousable but is noted is a very poor historian. HEENT: Anicteric conjunctiva are pink and moist nasal mucosa grossly intact without significant lesions, there is no thrush. Has dentures Neck: The neck is supple without significant lymphadenopathy or thyromegaly. Lungs: There is symmetrical bilateral air entry with few crackles at the bases no significant wheezing Heart: Irregular with a soft S4. No murmur click or rub Abdomen: Mildly obese, Positive bowel sounds soft and nontender without palpable masses or organomegaly. There was no guarding or rebound. Extremities: The upper extremities have excellent pulses they are symmetric, no significant petechiae or telangiectasia. No splinter hemorrhages were noted. Lower extremities have evidence of extensive bilateral lower extremity edema, skin is thickened toenails are untrimmed no open ulcerations are seen Neuro: Patient is much more awake alert and interactive today. up to the chair with the walker - Labs CBC & Chem 7: 09/11/19 06:14 09/11/19 06:14 Labs: Abnormal Lab Results - Last 24 Hours (Table) 09/10/19 09/10/19 09/11/19 Range/Units 16:27 20:28 06:14 RBC 3.53 L (4.30-5.90) m/uL Hgb 10.9 L (13.0-17.5) gm/dL Hct 33.1 L (39.0-53.0) % Creatinine (0.66-1.25) mg/dL Glucose (74-99) mg/dL POC Glucose (mg/dL) 145 H 174 H (75-99) mg/dL 09/11/19 09/11/19 09/11/19 Range/Units 06:14 06:48 11:30 RBC (4.30-5.90) m/uL Hgb (13.0-17.5) gm/dL Hct (39.0-53.0) % Creatinine 1.37 H (0.66-1.25) mg/dL Glucose 152 H (74-99) mg/dL POC Glucose (mg/dL) 145 H 139 H (75-99) mg/dL Microbiology - Last 24 Hours (Table) 09/10/19 06:29 Blood Culture Gram Stain - Preliminary Blood 09/10/19 06:29 Blood Culture - Final Blood 09/09/19 06:50 Blood Culture Gram Stain - Preliminary Blood Blood Culture - Preliminary Presumptive MRSA 09/08/19 08:00 Blood Culture Gram Stain - Final Blood Blood Culture - Final Methicillin resist S. aureus Laboratory Results WBC 9.7 k/uL (3.8-10.6) 09/11/19 06:14 RBC 3.53 m/uL (4.30-5.90) L 09/11/19 06:14 Hgb 10.9 gm/dL (13.0-17.5) L 09/11/19 06:14 Hct 33.1 % (39.0-53.0) L 09/11/19 06:14 MCV 93.9 fL (80.0-100.0) 09/11/19 06:14 MCH 30.8 pg (25.0-35.0) 09/11/19 06:14 MCHC 32.8 g/dL (31.0-37.0) 09/11/19 06:14 RDW 13.2 % (11.5-15.5) 09/11/19 06:14 Plt Count 386 k/uL (150-450) 09/11/19 06:14 Neutrophils % 75 % 09/11/19 06:14 Lymphocytes % 17 % 09/11/19 06:14 Monocytes % 6 % 09/11/19 06:14 Eosinophils % 1 % 09/11/19 06:14 Basophils % 0 % 09/11/19 06:14 Neutrophils # 7.3 k/uL (1.3-7.7) 09/11/19 06:14 Lymphocytes # 1.6 k/uL (1.0-4.8) 09/11/19 06:14 Monocytes # 0.6 k/uL (0-1.0) 09/11/19 06:14 Eosinophils # 0.1 k/uL (0-0.7) 09/11/19 06:14 Basophils # 0.0 k/uL (0-0.2) 09/11/19 06:14 PT 10.4 sec (9.0-12.0) 08/31/19 01:55 INR 1.0 (<1.2) 08/31/19 01:55 APTT 22.1 sec (22.0-30.0) 08/31/19 01:55 Sample Site rrad 09/06/19 16:12 ABG pH 7.43 (7.35-7.45) 09/06/19 16:12 ABG pCO2 37 mmHg (35-45) 09/06/19 16:12 ABG pO2 88 mmHg (83-108) 09/06/19 16:12 ABG HCO3 24 mmol/L (21-25) 09/06/19 16:12 ABG Total CO2 26 mmol/L (19-24) H 09/06/19 16:12 ABG O2 Saturation 97.1 % (94-97) H 09/06/19 16:12 ABG Base Excess 0.2 mmol/L 09/06/19 16:12 Job Test Yes 09/06/19 16:12 FiO2 28 % 09/06/19 16:12 Sodium 138 mmol/L (137-145) 09/11/19 06:14 Potassium 4.3 mmol/L (3.5-5.1) 09/11/19 06:14 Chloride 100 mmol/L (98-107) 09/11/19 06:14 Carbon Dioxide 29 mmol/L (22-30) 09/11/19 06:14 Anion Gap 9 mmol/L 09/11/19 06:14 BUN 11 mg/dL (9-20) 09/11/19 06:14 Creatinine 1.37 mg/dL (0.66-1.25) H 09/11/19 06:14 Est GFR (CKD-EPI)AfAm 57 (>60 ml/min/1.73 sqM) 09/11/19 06:14 Est GFR (CKD-EPI)NonAf 49 (>60 ml/min/1.73 sqM) 09/11/19 06:14 Glucose 152 mg/dL (74-99) H 09/11/19 06:14 POC Glucose (mg/dL) 139 mg/dL (75-99) H 09/11/19 11:30 POC Glu Business Asst ID Samantha Mcgarry 09/11/19 11:[address] Glu mg/dL 206 09/01/19 06:30 Hemoglobin A1c 8.8 % (4.0-6.0) H 09/01/19 06:30 Lactic Ac Sepsis Rflx Y 08/31/19 02:45 Plasma Lactic Acid Riley 0.7 mmol/L (0.7-2.0) 09/06/19 16:44 Calcium 8.5 mg/dL (8.4-10.2) 09/11/19 06:14 Total Bilirubin 0.4 mg/dL (0.2-1.3) 09/09/19 06:50 AST 15 U/L (17-59) L 09/09/19 06:50 ALT 8 U/L (21-72) L 09/09/19 06:50 Alkaline Phosphatase 74 U/L (38-126) 09/09/19 06:50 Troponin I 0.018 ng/mL (0.000-0.034) 08/31/19 01:55 Total Protein 5.5 g/dL (6.3-8.2) L 09/09/19 06:50 Albumin 2.5 g/dL (3.5-5.0) L 09/09/19 06:50 Urine Color Yellow 08/31/19 02:48 Urine Appearance Cloudy (Clear) 08/31/19 02:48 Urine pH 5.5 (5.0-8.0) 08/31/19 02:48 Ur Specific [place] 1.015 (1.001-1.035) 08/31/19 02:48 Urine Protein 1+ (Negative) H 08/31/19 02:48 Urine Glucose (UA) 2+ (Negative) H 08/31/19 02:48 Urine Ketones Negative (Negative) 08/31/19 02:48 Urine Blood Trace (Negative) H 08/31/19 02:48 Urine Nitrite Negative (Negative) 08/31/19 02:48 Urine Bilirubin Negative (Negative) 08/31/19 02:48 Urine Urobilinogen <2.0 mg/dL (<2.0) 08/31/19 02:48 Ur Leukocyte Esterase Large (Negative) H 08/31/19 02:48 Urine RBC 2 /hpf (0-5) 08/31/19 02:48 Urine WBC 176 /hpf (0-5) H 08/31/19 02:48 Urine WBC Clumps Many /hpf (None) H 08/31/19 02:48 Ur Squamous Epith Cells <1 /hpf (0-4) 08/31/19 02:48 Urine Bacteria Rare /hpf (None) H 08/31/19 02:48 Hyaline Casts 3 /lpf (0-2) H 08/31/19 02:48 Urine Mucus Rare /hpf (None) H 08/31/19 02:48 Urine Yeast (Budding) Few /hpf (None) H 08/31/19 02:48 Gentamicin Peak 5.0 ug/mL 09/09/19 09:32 Gentamicin Trough 1.9 ug/mL 09/09/19 06:50 Vancomycin Trough 14.9 ug/mL 09/05/19 06:35 Influenza Type A RNA Not Detected (Not Detectd) 08/31/19 01:55 Influenza Type B (PCR) Not Detected (Not Detectd) 08/31/19 01:55 Microbiology 09/10/19 06:29 Blood Blood Culture Gram Stain - Preliminary 09/10/19 06:29 Blood Blood Culture - Final 09/09/19 06:50 Blood Blood Culture Gram Stain - Preliminary 09/09/19 06:50 Blood Blood Culture - Preliminary Presumptive MRSA 09/08/19 08:00 Blood Blood Culture Gram Stain - Final 09/08/19 08:00 Blood Blood Culture - Final Methicillin resist S. aureus 09/09/19 06:50 Blood Blood Culture - Final 09/07/19 06:28 Blood Blood Culture Gram Stain - Final 09/07/19 06:28 Blood Blood Culture - Final Methicillin resist S. aureus 09/08/19 08:00 Blood Blood Culture - Final 09/06/19 07:19 Blood Blood Culture Gram Stain - Final 09/06/19 07:19 Blood Blood Culture - Final Methicillin resist S. aureus 09/07/19 06:28 Blood Blood Culture - Final 09/06/19 07:19 Blood Blood Culture - Final 09/04/19 05:54 Blood Blood Culture Gram Stain - Final 09/04/19 05:54 Blood Blood Culture - Final Methicillin resist S. aureus 09/03/19 06:39 Blood Blood Culture Gram Stain - Final 09/03/19 06:39 Blood Blood Culture - Final Methicillin resist S. aureus 08/31/19 02:48 Urine,Clean Catch Urine Culture - Final Summer glabrata 08/31/19 22:29 Blood Blood Culture Gram Stain - Final 08/31/19 22:29 Blood Blood Culture - Final Methicillin resist S. aureus 08/31/19 22:03 Blood Blood Culture Gram Stain - Final 08/31/19 22:03 Blood Blood Culture - Final Methicillin resist S. aureus 09/04/19 05:54 Blood Blood Culture - Final 09/03/19 06:39 Blood Blood Culture - Final 08/31/19 01:55 Blood Blood Culture Gram Stain - Final 08/31/19 01:55 Blood Blood Culture - Final Methicillin resist S. aureus 08/31/19 22:03 Blood Blood Culture - Final 08/31/19 22:29 Blood Blood Culture - Final 08/31/19 01:55 Blood Blood Culture - Final Assessment and Plan (1) Bacteremia Narrative/Plan: 79-year-old male who has a history of diabetes, Parkinson's disease and history of bladder cancer that has been treated with surgical intervention as well as intravesicular treatment. He now presents with a worsening of his status showing evidence of a high-grade fever, leukocytosis, elevated lactic acid which are all consistent with recurrent sepsis from urinary system in this debilitated gentleman. Antibiotic therapy was begun with vancomycin based on his recent urine cultures that showed evidence of MRSA and enterococcus that was not vancomycin resistant. There is evidence of the positive blood culture with gram-positive cocci. The patient has had an echocardiogram done earlier this year without evidence of any severe valvular disease. At this time with continued vancomycin therapy. Will request follow blood cultures to be performed to evaluate clearance of bacteremia with treatment of antibiotic therapy. With the development of bacteremia will need outpatient int ravenous antibiotic therapy. The lower extremities evidence of chronic edema but there does not appear to be any open ulcerations or cellulitis, local care with elevation and compression stockings could be helpful. 09/02/2019 patient is bit stronger, but has evidence of ongoing positive blood cultures. Conservatively to urinary source and ultrasound of the kidneys has been requested to evaluate for any type of obstruction problem or renal abscess. Also perinephric abscess. By November vancomycin continues. We'll follow blood cultures again tomorrow to see be certain occurs bacteremia with therapy. He 15 feels slightly better but still has ongoing acute illness at this time. 09/05/2019 the patient remains chronically ill feeling somewhat poorly. He is having improvement of his fever but there remains ongoing positive blood cultures. With this we'll transition vancomycin to daptomycin and high-dose. We'll monitor a weekly CK level. Once we have clearance of his bacteremia will need some type of IV access to allow treatment post hospital stay. The etiology of the ongoing bacteremia could be the clots within the left atrium and may require a longer time for clearance of his bacteremia. There is no evidence of any urinary source as noted by the relatively normal renal ultraso und. Patient does feel somewhat better than admission and hopefully be able to start with the discharge plan. 09/06/2019 the patient had SAL performed that shows evidence of the left atrial clot in this is the likely etiology of his persistent bacteremia. Antibiotic therapy was altered yesterday to high-dose daptomycin with evidence of vancomycin failure. We'll continue to monitor and follow blood cultures are reportedly been performed. The patient however is much more sedated today. He has not really arousing very well. Concerns are brought to the nurse to contact the hospitalist to ensure that this has not been a significant change of his status which is concerning because of his persistent bacteremia and left atrial clot. 09/07/2019 the patient remains significantly ill with ongoing bacteremia, ongoing altered mentation but is hematologically stable. Antibiotic therapy continues with daptomycin which was just changed and will add a few doses of gentamicin to try to clear the bacteremia. It appears that the clot in the left atrium is the nidus for the current and ongoing bacteremia. His prognosis is poor and appropriately has been made no code at this point in time. If bacteremia clears he will then require 6 weeks of intravenous antibiotic therapy and rehab facility. 09/09/2019 the patient has some improvement of his status today. His mentation is definitely improved since his last evaluation. However he continues evidence of positive blood cultures. Antibiotic therapy is ready been transitioned from vancomycin to high-dose daptomycin. Despite this there are still some positive blood cultures. Gentamicin was added but he with this there appears to be some positive blood cultures. We'll add Rocephin and attempt for further synergistic bacteriocidal effect the try to clear his bacteremia. He is on Sinemet and is not a candidate for Zyvox therapy. The patient fortunately is feeling somewhat better, has no fever and leukocytosis is improved over time. Follow cultures are being followed. 09/11/2019 the patient is with some further improvement today. He was up with a walker transferring from the bed to chair. He was generally unassisted except with a walker. He is feeling slightly better. Still feels quite poorly overall. We discussed the ongoing bacteremia despite the combination of antibiotics at this time. So far he has failed vancomycin, combination of vancomycin and gentamicin, accommodation of daptomycin and gentamicin, Rocephin was also added to a combination of try to further obtain some synergy which has not been effective. The daptomycin will be transitioned to linezolide, the staff is instructed about the importance of following his blood pressure should be monitored through his infusion. Interaction is possible because of the medications but with his failure of all attempts so far is required at this time. The Current Visit: Yes Status: Acute Code(s): R78.81 - BACTEREMIA SNOMED Code(s): 1665753 (2) Urinary tract infection Current Visit: Yes Status: Acute Code(s): N39.0 - URINARY TRACT INFECTION, SITE NOT SPECIFIED SNOMED Code(s): 89331852 (3) Leukocytosis Current Visit: Yes Status: Acute Code(s): D72.829 - ELEVATED WHITE BLOOD CELL COUNT, UNSPECIFIED SNOMED Code(s): 704282460 (4) Acute sepsis Current Visit: Yes Status: Acute Code(s): A41.9 - SEPSIS, UNSPECIFIED ORGANISM SNOMED Code(s): 26590744
[2019-09-11] MEDS ORDERED: GENTAMICIN TROUGH DUE 1 EACH MISC MISCELLANE ONE (13:30)
--- NOTE | 2019-09-11 15:29 | P.PN ---
Subjective Progress Note Date: 09/11/19 Principal diagnosis: MRSA bacteremia Mr. Peterson is a 73-year-old male with chronic medical conditions including atrial flutter, congestive heart failure, COPD, diverticulitis, hypertension, thyroid disorder, bladder cancer coming into the hospital for fevers and lethargy. The workup for his fever with showed left atrial thrombus. And his blood cultures have been continuously positive for MRSA. Patient is currently on IV daptomycin , gentamicin and ceftriaxone as per ID Dr. Childs recommendations. On 09/10/2019- as per the nursing staff report patient is more alert compared to yesterday. He complains of fatigue. Denies having any chest pain or difficulty in breathing. No cough. Denies having any fevers chills or rigors. No abdominal pain nausea vomiting or diarrhea. No dysuria or hematuria. His blood cultures from the are still positive for MRSA. On 09/11/2019 - as per the nursing staff report no acute events reported overnight. Patient is sitting up in a chair by the bedside. He is much more alert and awake compared to yesterday. Patient denies having any chest pain or palpitations. No cough or difficulty in breathing. No fevers chills or rigors. He mentions that his lower extremity edema is still there and he has been dealing with for a long time. Patient's blood cultures from of still positive for MRSA. ID Dr. Childs on board he change daptomycin to linezolid. Patient's medications and labs have been reviewed. Active Medications Acetaminophen (Tylenol Tab) 650 mg PO Q6H PRN PRN Reason: Mild Pain Last Admin: 09/05/19 20:36 Dose: 650 mg Documented by: Albuterol Sulfate (Ventolin Nebulized) 2.5 mg INHALATION RT-Q6H PRN PRN Reason: Shortness Of Breath Allopurinol (Zyloprim) 100 mg PO DAILY [facility] Last Admin: 09/11/19 07:26 Dose: 100 mg Documented by: Amlodipine Besylate (Norvasc) 10 mg PO DAILY [facility] Last Admin: 09/11/19 07:26 Dose: 10 mg Documented by: Apixaban (Eliquis) 5 mg PO BID [facility] Last Admin: 09/11/19 07:26 Dose: 5 mg Documented by: Bisacodyl (Dulcolax) 10 mg PO DAILY PRN PRN Reason: Constipation Carbidopa/Levodopa (Sinemet 25-100) 2 each PO TID [facility] Last Admin: 09/11/19 07:26 Dose: 2 each Documented by: Ergocalciferol (Vitamin D2) 50,000 unit PO Q14D [facility] Last Admin: 09/02/19 09:41 Dose: 50,000 unit Documented by: Ceftriaxone Sodium 2 gm/ (Sodium Chloride) 50 mls @ 100 mls/hr IVPB Q24HR [facility] Last Admin: 09/11/19 07:25 Dose: 100 mls/hr Documented by: Linezolid 600 mg/ IV Solution 300 mls @ 150 mls/hr IVPB Q12HR [facility]; Protocol Gentamicin Sulfate 100 mg/ (Sodium Chloride) 102.5 mls @ 102.5 mls/hr IVPB Q24H [facility] Insulin Aspart (Novolog) 0 unit SQ ACHS [facility]; Protocol Last Admin: 09/11/19 07:25 Dose: 1 unit Documented by: Insulin Detemir (Levemir) 12 unit SQ HS [facility] Last Admin: 09/10/19 21:42 Dose: Not Given Documented by: Levothyroxine Sodium (Synthroid) 100 mcg PO DAILY@0630 [facility] Last Admin: 09/11/19 05:12 Dose: 100 mcg Documented by: Lisinopril (Zestril) 40 mg PO DAILY [facility] Last Admin: 09/11/19 07:26 Dose: 40 mg Documented by: Metoprolol Tartrate (Lopressor) 25 mg PO BID [facility] Last Admin: 09/11/19 07:26 Dose: 25 mg Documented by: Miscellaneous Information (Potassium Per Protocol) 1 each MISCELLANE DAILY PRN; Protocol PRN Reason: Per Protocol Naloxone HCl (Narcan) 0.2 mg IV Q2M PRN PRN Reason: Opioid Reversal Ondansetron HCl (Zofran) 4 mg IVP Q6HR PRN PRN Reason: Nausea And Vomiting Objective - Vital Signs Vital signs: Vital Signs Temp 98.4 F 09/11/19 14:52 Pulse 76 09/11/19 14:52 Resp 16 09/11/19 14:52 BP 146/67 09/11/19 14:52 Pulse Ox 95 09/11/19 14:52 Intake & Output 11/30/19 12/01/19 12/01/19 18:59 06:59 18:59 Intake Total 390 860 Output Total 440 300 Balance -50 860 -300 Weight 118 kg Intake: Intake, IV Titration 320 Amount Gentamicin 100 mg In 200 Sodium Chloride 0.9% 100 ml @ 102.5 mls/hr IVPB Q18H [facility] Rx#:[id number] Sodium Chloride 0.9% 500 120 ml 500 ml @ 0 mls/hr IV . [email or web address] Rx#: [id number] Oral 390 540 Output: Urine 440 300 Other: Voiding Method Indwelling Catheter # Voids 1 2 2 - Exam GENERAL: The patient is alert and oriented x3,. Chronically ill appearing HEENT: No pallor. No icterus. CARDIOVASCULAR: S1 and S2 present. No murmurs, rubs, or gallops. PULMONARY: Chest is clear to auscultation, decreased at the lower lung bases. ABDOMEN: Soft, nontender, nondistended, normoactive bowel sounds. No palpable organomegaly. MUSCULOSKELETAL: No joint swelling or deformity. EXTREMITIES: Lower extremities have evidence of extensive bilateral lower extremity edema, skin is thickened toenails are untrimmed no open ulcerations are seen NEUROLOGICAL: Gross neurological examination did not reveal any focal deficits. - Labs CBC & Chem 7: 09/11/19 06:14 09/11/19 06:14 Labs: Abnormal Lab Results - Last 24 Hours (Table) 09/10/19 09/10/19 09/11/19 Range/Units 16:27 20:28 06:14 RBC 3.53 L (4.30-5.90) m/uL Hgb 10.9 L (13.0-17.5) gm/dL Hct 33.1 L (39.0-53.0) % Creatinine (0.66-1.25) mg/dL Glucose (74-99) mg/dL POC Glucose (mg/dL) 145 H 174 H (75-99) mg/dL 09/11/19 09/11/19 09/11/19 Range/Units 06:14 06:48 11:30 RBC (4.30-5.90) m/uL Hgb (13.0-17.5) gm/dL Hct (39.0-53.0) % Creatinine 1.37 H (0.66-1.25) mg/dL Glucose 152 H (74-99) mg/dL POC Glucose (mg/dL) 145 H 139 H (75-99) mg/dL Microbiology - Last 24 Hours (Table) 09/10/19 06:29 Blood Culture Gram Stain - Preliminary Blood 09/10/19 06:29 Blood Culture - Final Blood 09/09/19 06:50 Blood Culture Gram Stain - Preliminary Blood Blood Culture - Preliminary Presumptive MRSA Assessment and Plan Assessment: ASSESSMENT Severe sepsis secondary to MRSA bacteremia Urinary tract infection Extensive venous stasis dermatitis Type 2 diabetes mellitus Chronic debility Parkinson's disease Hypothyroidism COPD not in acute exacerbation AK I resolving 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 ID Dr. Childs following the patient closely. Patient's blood cultures from the are still positive for MRSA. Continue with the rest of her current medication regimen. Overall prognosis is guarded. Patient is NO CODE . Further recommendations to follow depending on the progress of the patient.
[2019-09-11] MEDS: LINEZOLID 600 MG in DEXTROSE/WATER 1 300ML.BAG IVPB SCH ×2 (15:43→22:10)
[2019-09-11] MEDS ORDERED: GENTAMICIN PEAK DUE 1 EACH MISC MISCELLANE ONE (16:00)
[2019-09-11 16:45] LABS: Glucose,Whole Blood 226 mg/dL (75-99)
[2019-09-11] MEDS: GENTAMICIN 100 MG in SODIUM CHLORIDE 0.9% 100 ML IVPB SCH ×2 (18:47→19:52)
[2019-09-11 20:08] LABS: Glucose,Whole Blood 232 mg/dL (75-99)
[2019-09-11] MEDS: INSULIN DETEMIR (LEVEMIR) 100 UNIT/ML SYR SQ SCH (20:27)
[2019-09-12] MEDS: LEVOTHYROXINE 100 MCG TAB PO SCH (05:21)
[2019-09-12 07:15] LABS: Glucose,Whole Blood 113 mg/dL (75-99)
[2019-09-12] MEDS: INSULIN ASPART (NovoLOG) 100 UNIT/ML VIAL SQ SCH ×4 (08:42→20:55)
[2019-09-12] MEDS: CARBIDOPA-LEVODOPA 25-100 MG 1 EACH TAB PO SCH ×3 (09:00→20:53)
[2019-09-12] MEDS: LISINOPRIL 20 MG TAB PO SCH (09:00)
[2019-09-12] MEDS: amLODIPine 10 MG TAB PO SCH (09:00)
[2019-09-12] MEDS: ALLOPURINOL 100 MG TAB PO SCH (09:00)
[2019-09-12] MEDS: METOPROLOL TARTRATE 25 MG TAB PO SCH ×2 (09:00→20:53)
[2019-09-12] MEDS: APIXABAN 5 MG TAB PO SCH ×2 (09:00→20:53)
[2019-09-12] MEDS: LINEZOLID 600 MG in DEXTROSE/WATER 1 300ML.BAG IVPB SCH ×2 (09:03→20:54)
[2019-09-12 11:54] LABS: Glucose,Whole Blood 155 mg/dL (75-99)
[2019-09-12 17:01] LABS: Glucose,Whole Blood 151 mg/dL (75-99)
[2019-09-12 20:43] LABS: Glucose,Whole Blood 226 mg/dL (75-99)
[2019-09-12] MEDS: GENTAMICIN 100 MG in SODIUM CHLORIDE 0.9% 100 ML IVPB SCH (20:53)
[2019-09-12] MEDS: INSULIN DETEMIR (LEVEMIR) 100 UNIT/ML SYR SQ SCH (20:54)
--- NOTE | 2019-09-12 22:40 | P.PN ---
Subjective Progress Note Date: 09/12/19 Principal diagnosis: MRSA bacteremia Mr. Peterson is a 73-year-old male with chronic medical conditions including atrial flutter, congestive heart failure, COPD, diverticulitis, hypertension, thyroid disorder, bladder cancer coming into the hospital for fevers and lethargy. The workup for his fever with showed left atrial thrombus. And his blood cultures have been continuously positive for MRSA. Patient is currently on IV daptomycin , gentamicin and ceftriaxone as per ID Dr. Childs recommendations. On 09/10/2019- as per the nursing staff report patient is more alert compared to yesterday. He complains of fatigue. Denies having any chest pain or difficulty in breathing. No cough. Denies having any fevers chills or rigors. No abdominal pain nausea vomiting or diarrhea. No dysuria or hematuria. His blood cultures from the are still positive for MRSA. On 09/11/2019 - as per the nursing staff report no acute events reported overnight. Patient is sitting up in a chair by the bedside. He is much more alert and awake compared to yesterday. Patient denies having any chest pain or palpitations. No cough or difficulty in breathing. No fevers chills or rigors. He mentions that his lower extremity edema is still there and he has been dealing with for a long time. Patient's blood cultures from of still positive for MRSA. ID Dr. Childs on board he change daptomycin to linezolid. oN 09/12/19 - Patient is lying in bed appears to be in no acute distress. Patient complains of generalized fatigue and weakness. Denies having any chest pain or palpitations. No weakness of his extremities. No fevers chills or rigors. No cough or difficulty breathing. On reviewing the labs patient's blood cultures from have been still positive for MRSA. He is currently on linezolid and ceftriaxone. Patient's medications and labs have been reviewed. Active Medications Acetaminophen (Tylenol Tab) 650 mg PO Q6H PRN PRN Reason: Mild Pain Last Admin: 09/05/19 20:36 Dose: 650 mg Documented by: Albuterol Sulfate (Ventolin Nebulized) 2.5 mg INHALATION RT-Q6H PRN PRN Reason: Shortness Of Breath Allopurinol (Zyloprim) 100 mg PO DAILY [facility] Last Admin: 09/12/19 09:00 Dose: 100 mg Documented by: Amlodipine Besylate (Norvasc) 10 mg PO DAILY [facility] Last Admin: 09/12/19 09:00 Dose: 10 mg Documented by: Apixaban (Eliquis) 5 mg PO BID [facility] Last Admin: 09/12/19 20:53 Dose: 5 mg Documented by: Bisacodyl (Dulcolax) 10 mg PO DAILY PRN PRN Reason: Constipation Carbidopa/Levodopa (Sinemet 25-100) 2 each PO TID [facility] Last Admin: 09/12/19 20:53 Dose: 2 each Documented by: Ergocalciferol (Vitamin D2) 50,000 unit PO Q14D [facility] Last Admin: 09/02/19 09:41 Dose: 50,000 unit Documented by: Ceftriaxone Sodium 2 gm/ (Sodium Chloride) 50 mls @ 100 mls/hr IVPB Q24HR [facility] Last Admin: 09/12/19 09:00 Dose: 100 mls/hr Documented by: Linezolid 600 mg/ IV Solution 300 mls @ 150 mls/hr IVPB Q12HR [facility]; Protocol Last Admin: 09/12/19 20:54 Dose: 150 mls/hr Documented by: Gentamicin Sulfate 100 mg/ (Sodium Chloride) 102.5 mls @ 102.5 mls/hr IVPB Q24H [facility] Last Admin: 09/12/19 20:53 Dose: 102.5 mls/hr Documented by: Insulin Aspart (Novolog) 0 unit SQ ACHS [facility]; Protocol Last Admin: 09/12/19 20:55 Dose: 3 unit Documented by: Insulin Detemir (Levemir) 12 unit SQ HS [facility] Last Admin: 09/12/19 20:54 Dose: 12 unit Documented by: Levothyroxine Sodium (Synthroid) 100 mcg PO DAILY@0630 [facility] Last Admin: 09/12/19 05:21 Dose: 100 mcg Documented by: Lisinopril (Zestril) 40 mg PO DAILY [facility] Last Admin: 09/12/19 09:00 Dose: 40 mg Documented by: Metoprolol Tartrate (Lopressor) 25 mg PO BID [facility] Last Admin: 09/12/19 20:53 Dose: 25 mg Documented by: Miscellaneous Information (Potassium Per Protocol) 1 each MISCELLANE DAILY PRN; Protocol PRN Reason: Per Protocol Miscellaneous Information (Gentamicin Trough Due) 1 each MISCELLANE ONCE ONE Stop: 09/13/19 19:31 Miscellaneous Information (Gentamicin Peak Due) 1 each MISCELLANE ONCE ONE Stop: 09/13/19 22:01 Naloxone HCl (Narcan) 0.2 mg IV Q2M PRN PRN Reason: Opioid Reversal Ondansetron HCl (Zofran) 4 mg IVP Q6HR PRN PRN Reason: Nausea And Vomiting Objective - Vital Signs Vital signs: Vital Signs Temp 98.2 F 09/12/19 08:04 Pulse 87 09/12/19 09:03 Resp 12 09/12/19 09:03 BP 130/70 09/12/19 08:04 Pulse Ox 96 09/12/19 09:33 Intake & Output 09/11/19 09/12/19 09/12/19 18:59 06:59 18:59 Intake Total 1 Output Total 300 Balance -300 1 Weight 117.5 kg Intake: Oral 1 Output: Urine 300 Other: Voiding Method Indwelling Catheter Urinal Urinal Diaper Diaper # Voids 2 3 - Exam GENERAL: The patient is alert and oriented x3,. Chronically ill appearing HEENT: No pallor. No icterus. CARDIOVASCULAR: S1 and S2 present. No murmurs, rubs, or gallops. PULMONARY: Chest is clear to auscultation, decreased at the lower lung bases. ABDOMEN: Soft, nontender, nondistended, normoactive bowel sounds. No palpable organomegaly. MUSCULOSKELETAL: No joint swelling or deformity. EXTREMITIES: Lower extremities have evidence of extensive bilateral lower extremity edema, skin is thickened toenails are untrimmed no open ulcerations are seen NEUROLOGICAL: No focal deficits. - Labs CBC & Chem 7: 09/11/19 06:14 09/11/19 06:14 Labs: Abnormal Lab Results - Last 24 Hours (Table) 09/11/19 09/11/19 09/12/19 Range/Units 16:43 20:06 07:14 POC Glucose (mg/dL) 226 H 232 H 113 H (75-99) mg/dL 09/12/19 Range/Units 11:52 POC Glucose (mg/dL) 155 H (75-99) mg/dL Microbiology - Last 24 Hours (Table) 09/10/19 06:29 Blood Culture Gram Stain - Preliminary Blood Blood Culture - Preliminary Presumptive MRSA 09/09/19 06:50 Blood Culture Gram Stain - Final Blood Blood Culture - Final Methicillin resist S. aureus 09/10/19 06:29 Blood Culture - Final Blood Assessment and Plan Assessment: ASSESSMENT Severe sepsis secondary to MRSA bacteremia Urinary tract infection Extensive venous stasis dermatitis Type 2 diabetes mellitus Chronic debility Parkinson's disease Hypothyroidism COPD not in acute exacerbation AK I resolving CK D stage II to 3 Diabetic peripheral neuropathy PLAN: Patient's antibiotics have been changed from IV daptomycin to linezolid yesterday . Patient's blood cultures from the are still positive for MRSA. Continue with the rest of her current medication regimen. Today had a detailed discussion with Dr. Childs regarding the persistent positive blood cultures. As he changed the antibiotic yesterday morning, he still wants to wait for few more days to see if he is bacteremia would clear. Patient would be a very poor surgical candidate. Overall prognosis is guarded. Patient is NO CODE .
--- NOTE | 2019-09-12 23:25 | P.PN ---
Subjective Progress Note Date: 09/12/19 79-year-old male who lives in the family home with his spouse and grandchildren relates that he's been feeling poorly for a few days. He became very weak and actually lowered himself to the ground because he was so weak. EMS was called and he was brought to hospital. He was on evidence of a fever as well as leukocytosis and feeling quite poorly. Patient has a long-standing history of Parkinson's and is a limited historian. He denies severe pain at this time. 09/02/2019 patient remains a poor historian but he is a bit stronger and may have sitting up in the chair. He has no significant complaints. 09/05/2019 patient remains fatigued and feels ill but has been able to sit up in a chair, denies fevers or chills. SAL has now been performed. September 06 2019 the patient is sleepy and difficult to arouse this afternoon. His untouched lunch is next to him. His status is discussed with the nurse. He has been quite sleepy through the morning into the early afternoon. She will reassess if he does awaken make sure there some assistance in eating his meal. 09/07/2019 patient continues to be with ongoing sepsis and ongoing bacteremia despite antibiotic therapy and change of antibiotic therapy daptomycin. He is still very weak and ill which is quite different from his baseline. Discussion occurred with the primary care team yesterday. And the patient is now been appropriate and made no code is receiving ongoing aggressive interventions. September 10 the patient is more awake alert and interactive today. He seems to be modestly comfortable in is not complaining of severe pain. Laboratories reviewed he has evidence of ongoing bacteremia. Sep feels better was able to transfer to the chair unassisted except walker. no fevers feels poorly overall 09/12/2019 patient is fatigued today but no new acute troubles, appetite is adequate. Objective - Vital Signs Vital signs: Vital Signs Temp 98.0 F 09/12/19 16:00 Pulse 72 09/12/19 16:00 Resp 12 09/12/19 16:00 BP 155/70 09/12/19 16:00 Pulse Ox 96 09/12/19 16:00 Intake & Output 09/12/19 09/12/19 09/13/19 06:59 18:59 06:59 Intake Total 1 350 Balance 1 350 Weight 117.5 kg Intake: Intake, IV Titration 350 Amount Linezolid 600 mg In 300 Dextrose/Water 1 300ml. bag @ 150 mls/hr IVPB Q12HR [facility] Rx#:[id number] cefTRIAXone 2 gm In 50 Sodium Chloride 0.9% 50 ml @ 100 mls/hr IVPB Q24HR [facility] Rx#:[id number] Oral 1 Other: Voiding Method Urinal Urinal Diaper Diaper # Voids 3 - Exam 79-year-old male who seems to be comfortable, he was arousable but is noted is a very poor historian. HEENT: Anicteric conjunctiva are pink and moist nasal mucosa grossly intact without significant lesions, there is no thrush. Has dentures Neck: The neck is supple without significant lymphadenopathy or thyromegaly. Lungs: There is symmetrical bilateral air entry with few crackles at the bases no significant wheezing Heart: Irregular with a soft S4. No murmur click or rub Abdomen: Mildly obese, Positive bowel sounds soft and nontender without palpable masses or organomegaly. There was no guarding or rebound. Extremities: The upper extremities have excellent pulses they are symmetric, no significant petechiae or telangiectasia. No splinter hemorrhages were noted. Lower extremities have evidence of extensive bilateral lower extremity edema, skin is thickened toenails are untrimmed no open ulcerations are seen Neuro: Patient is much more awake alert and interactive today. - Labs CBC & Chem 7: 09/11/19 06:14 09/11/19 06:14 Labs: Abnormal Lab Results - Last 24 Hours (Table) 09/12/19 09/12/19 09/12/19 Range/Units 07:14 11:52 17:00 POC Glucose (mg/dL) 113 H 155 H 151 H (75-99) mg/dL 09/12/19 Range/Units 20:42 POC Glucose (mg/dL) 226 H (75-99) mg/dL Microbiology - Last 24 Hours (Table) 09/10/19 06:29 Blood Culture Gram Stain - Final Blood Blood Culture - Final Methicillin resist S. aureus 09/09/19 06:50 Blood Culture Gram Stain - Final Blood Blood Culture - Final Methicillin resist S. aureus Laboratory Results WBC 9.7 k/uL (3.8-10.6) 09/11/19 06:14 RBC 3.53 m/uL (4.30-5.90) L 09/11/19 06:14 Hgb 10.9 gm/dL (13.0-17.5) L 09/11/19 06:14 Hct 33.1 % (39.0-53.0) L 09/11/19 06:14 MCV 93.9 fL (80.0-100.0) 09/11/19 06:14 MCH 30.8 pg (25.0-35.0) 09/11/19 06:14 MCHC 32.8 g/dL (31.0-37.0) 09/11/19 06:14 RDW 13.2 % (11.5-15.5) 09/11/19 06:14 Plt Count 386 k/uL (150-450) 09/11/19 06:14 Neutrophils % 75 % 09/11/19 06:14 Lymphocytes % 17 % 09/11/19 06:14 Monocytes % 6 % 09/11/19 06:14 Eosinophils % 1 % 09/11/19 06:14 Basophils % 0 % 09/11/19 06:14 Neutrophils # 7.3 k/uL (1.3-7.7) 09/11/19 06:14 Lymphocytes # 1.6 k/uL (1.0-4.8) 09/11/19 06:14 Monocytes # 0.6 k/uL (0-1.0) 09/11/19 06:14 Eosinophils # 0.1 k/uL (0-0.7) 09/11/19 06:14 Basophils # 0.0 k/uL (0-0.2) 09/11/19 06:14 PT 10.4 sec (9.0-12.0) 08/31/19 01:55 INR 1.0 (<1.2) 08/31/19 01:55 APTT 22.1 sec (22.0-30.0) 08/31/19 01:55 Sample Site rrad 09/06/19 16:12 ABG pH 7.43 (7.35-7.45) 09/06/19 16:12 ABG pCO2 37 mmHg (35-45) 09/06/19 16:12 ABG pO2 88 mmHg (83-108) 09/06/19 16:12 ABG HCO3 24 mmol/L (21-25) 09/06/19 16:12 ABG Total CO2 26 mmol/L (19-24) H 09/06/19 16:12 ABG O2 Saturation 97.1 % (94-97) H 09/06/19 16:12 ABG Base Excess 0.2 mmol/L 09/06/19 16:12 Job Test Yes 09/06/19 16:12 FiO2 28 % 09/06/19 16:12 Sodium 138 mmol/L (137-145) 09/11/19 06:14 Potassium 4.3 mmol/L (3.5-5.1) 09/11/19 06:14 Chloride 100 mmol/L (98-107) 09/11/19 06:14 Carbon Dioxide 29 mmol/L (22-30) 09/11/19 06:14 Anion Gap 9 mmol/L 09/11/19 06:14 BUN 11 mg/dL (9-20) 09/11/19 06:14 Creatinine 1.37 mg/dL (0.66-1.25) H 09/11/19 06:14 Est GFR (CKD-EPI)AfAm 57 (>60 ml/min/1.73 sqM) 09/11/19 06:14 Est GFR (CKD-EPI)NonAf 49 (>60 ml/min/1.73 sqM) 09/11/19 06:14 Glucose 152 mg/dL (74-99) H 09/11/19 06:14 POC Glucose (mg/dL) 226 mg/dL (75-99) H 09/12/19 20:42 POC Glu Ostomy Rn ID Hope Rodriguez 09/12/19 20:[address] Glu mg/dL 206 09/01/19 06:30 Hemoglobin A1c 8.8 % (4.0-6.0) H 09/01/19 06:30 Lactic Ac Sepsis Rflx Y 08/31/19 02:45 Plasma Lactic Acid Riley 0.7 mmol/L (0.7-2.0) 09/06/19 16:44 Calcium 8.5 mg/dL (8.4-10.2) 09/11/19 06:14 Total Bilirubin 0.4 mg/dL (0.2-1.3) 09/09/19 06:50 AST 15 U/L (17-59) L 09/09/19 06:50 ALT 8 U/L (21-72) L 09/09/19 06:50 Alkaline Phosphatase 74 U/L (38-126) 09/09/19 06:50 Troponin I 0.018 ng/mL (0.000-0.034) 08/31/19 01:55 Total Protein 5.5 g/dL (6.3-8.2) L 09/09/19 06:50 Albumin 2.5 g/dL (3.5-5.0) L 09/09/19 06:50 Urine Color Yellow 08/31/19 02:48 Urine Appearance Cloudy (Clear) 08/31/19 02:48 Urine pH 5.5 (5.0-8.0) 08/31/19 02:48 Ur Specific [place] 1.015 (1.001-1.035) 08/31/19 02:48 Urine Protein 1+ (Negative) H 08/31/19 02:48 Urine Glucose (UA) 2+ (Negative) H 08/31/19 02:48 Urine Ketones Negative (Negative) 08/31/19 02:48 Urine Blood Trace (Negative) H 08/31/19 02:48 Urine Nitrite Negative (Negative) 08/31/19 02:48 Urine Bilirubin Negative (Negative) 08/31/19 02:48 Urine Urobilinogen <2.0 mg/dL (<2.0) 08/31/19 02:48 Ur Leukocyte Esterase Large (Negative) H 08/31/19 02:48 Urine RBC 2 /hpf (0-5) 08/31/19 02:48 Urine WBC 176 /hpf (0-5) H 08/31/19 02:48 Urine WBC Clumps Many /hpf (None) H 08/31/19 02:48 Ur Squamous Epith Cells <1 /hpf (0-4) 08/31/19 02:48 Urine Bacteria Rare /hpf (None) H 08/31/19 02:48 Hyaline Casts 3 /lpf (0-2) H 08/31/19 02:48 Urine Mucus Rare /hpf (None) H 08/31/19 02:48 Urine Yeast (Budding) Few /hpf (None) H 08/31/19 02:48 Gentamicin Peak 5.0 ug/mL 09/09/19 09:32 Gentamicin Trough 1.4 ug/mL 09/11/19 13:01 Vancomycin Trough 14.9 ug/mL 09/05/19 06:35 Influenza Type A RNA Not Detected (Not Detectd) 08/31/19 01:55 Influenza Type B (PCR) Not Detected (Not Detectd) 08/31/19 01:55 Microbiology 09/10/19 06:29 Blood Blood Culture Gram Stain - Final 09/10/19 06:29 Blood Blood Culture - Final Methicillin resist S. aureus 09/09/19 06:50 Blood Blood Culture Gram Stain - Final 09/09/19 06:50 Blood Blood Culture - Final Methicillin resist S. aureus 09/10/19 06:29 Blood Blood Culture - Final 09/08/19 08:00 Blood Blood Culture Gram Stain - Final 09/08/19 08:00 Blood Blood Culture - Final Methicillin resist S. aureus 09/09/19 06:50 Blood Blood Culture - Final 09/07/19 06:28 Blood Blood Culture Gram Stain - Final 09/07/19 06:28 Blood Blood Culture - Final Methicillin resist S. aureus 09/08/19 08:00 Blood Blood Culture - Final 09/06/19 07:19 Blood Blood Culture Gram Stain - Final 09/06/19 07:19 Blood Blood Culture - Final Methicillin resist S. aureus 09/07/19 06:28 Blood Blood Culture - Final 09/06/19 07:19 Blood Blood Culture - Final 09/04/19 05:54 Blood Blood Culture Gram Stain - Final 09/04/19 05:54 Blood Blood Culture - Final Methicillin resist S. aureus 09/03/19 06:39 Blood Blood Culture Gram Stain - Final 09/03/19 06:39 Blood Blood Culture - Final Methicillin resist S. aureus 08/31/19 02:48 Urine,Clean Catch Urine Culture - Final Summer glabrata 08/31/19 22:29 Blood Blood Culture Gram Stain - Final 08/31/19 22:29 Blood Blood Culture - Final Methicillin resist S. aureus 08/31/19 22:03 Blood Blood Culture Gram Stain - Final 08/31/19 22:03 Blood Blood Culture - Final Methicillin resist S. aureus 09/04/19 05:54 Blood Blood Culture - Final 09/03/19 06:39 Blood Blood Culture - Final 08/31/19 01:55 Blood Blood Culture Gram Stain - Final 08/31/19 01:55 Blood Blood Culture - Final Methicillin resist S. aureus 08/31/19 22:03 Blood Blood Culture - Final 08/31/19 22:29 Blood Blood Culture - Final 08/31/19 01:55 Blood Blood Culture - Final Assessment and Plan (1) Bacteremia Narrative/Plan: 79-year-old male who has a history of diabetes, Parkinson's disease and history of bladder cancer that has been treated with surgical intervention as well as intravesicular treatment. He now presents with a worsening of his status showing evidence of a high-grade fever, leukocytosis, elevated lactic acid which are all consistent with recurrent sepsis from urinary system in this debilitated gentleman. Antibiotic therapy was begun with vancomycin based on his recent urine cultures that showed evidence of MRSA and enterococcus that was not v ancomycin resistant. There is evidence of the positive blood culture with gram- positive cocci. The patient has had an echocardiogram done earlier this year without evidence of any severe valvular disease. At this time with continued vancomycin therapy. Will request follow blood cultures to be performed to evaluate clearance of bacteremia with treatment of antibiotic therapy. With the development of bacteremia will need outpatient intravenous antibiotic therapy. The lower extremities evidence of chronic edema but there does not appear to be any open ulcerations or cellulitis, local care with elevation and compression stockings could be helpful. 09/02/2019 patient is bit stronger, but has evidence of ongoing positive blood cultures. Conservatively to urinary source and ultrasound of the kidneys has been requested to evaluate for any type of obstruction problem or renal abscess. Also perinephric abscess. By November vancomycin continues. We'll follow blood cultures again tomorrow to see be certain occurs bacteremia with therapy. He 15 feels slightly better but still has ongoing acute illness at this time. 09/05/2019 the patient remains chronically ill feeling somewhat poorly. He is having improvement of his fever but there remains ongoing positive blood cultures. With this we'll transition vancomycin to daptomycin and high-dose. We'll monitor a weekly CK level. Once we have clearance of his bacteremia will need some type of IV access to allow treatment post hospital stay. The etiology of the ongoing bacteremia could be the clots within the left atrium and may require a longer time for clearance of his bacteremia. There is no evidence of any urinary source as noted by the relatively normal renal ultrasound. Patient does feel somewhat better than admission and hopefully be able to start with the discharge plan. 09/06/2019 the patient had SAL performed that shows evidence of the left atrial clot in this is the likely etiology of his persistent bacteremia. Antibiotic therapy was altered yesterday to high-dose daptomycin with evidence of vancomycin failure. We'll continue to monitor and follow blood cultures are reportedly been performed. The patient however is much more sedated today. He has not really arousing very well. Concerns are brought to the nurse to contact the hospitalist to ensure that this has not been a significant change of his status which is concerning because of his persistent bacteremia and left atrial clot. 09/07/2019 the patient remains significantly ill with ongoing bacteremia, ongoing altered mentation but is hematologically stable. Antibiotic therapy continues with daptomycin which was just changed and will add a few doses of gentamicin to try to clear the bacteremia. It appears that the clot in the left atrium is the nidus for the current and ongoing bacteremia. His prognosis is poor and appropriately has been made no code at this point in time. If bacteremia clears he will then require 6 weeks of intravenous antibiotic therapy and rehab facility. 09/09/2019 the patient has some improvement of his status today. His mentation is definitely improved since his last evaluation. However he continues evidence of positive blood cultures. Antibiotic therapy is ready been transitioned from vancomycin to high-dose daptomycin. Despite this there are still some positive blood cultures. Gentamicin was added but he with this there appears to be some positive blood cultures. We'll add Rocephin and attempt for further synergistic bacteriocidal effect the try to clear his bacteremia. He is on Sinemet and is not a candidate for Zyvox therapy. The patient fortunately is feeling somewhat better, has no fever and leukocytosis is improved over time. Follow cultures are being followed. 09/11/2019 the patient is with some further improvement today. He was up with a walker transferring from the bed to chair. He was generally unassisted except with a walker. He is feeling slightly better. Still feels quite poorly overall. We discussed the ongoing bacteremia despite the combination of antibiotics at this time. So far he has failed vancomycin, combination of vancomycin and gentamicin, accommodation of daptomycin and gentamicin, Rocephin was also added to a combination of try to further obtain some synergy which has not been effective. The daptomycin will be transitioned to linezolide, the s taff is instructed about the importance of following his blood pressure should be monitored through his infusion. Interaction is possible because of the medications but with his failure of all attempts so far is required at this time. The 09/12/2019 the patient is a bit sleepy today but continues to have some improvement. He has noted the patient has ongoing bacteremia on the basis of his left atrial appendage clot that is infected with MRSA. Multiple antibiotic regimens have been tried. He has now been placed on Zyvox were awaiting some follow-up blood cultures to see if this will allow clearance of his bacteremia that was not clear despite combination of multiple prior antibiotics. Patient does seem to be stable and feeling slightly better. She's had no toxicity from the addition of the Zyvox. Current Visit: Yes Status: Acute Code(s): R78.81 - BACTEREMIA SNOMED Code(s): 0536707 (2) Urinary tract infection Current Visit: Yes Status: Acute Code(s): N39.0 - URINARY TRACT INFECTION, SITE NOT SPECIFIED SNOMED Code(s): 42856973 (3) Leukocytosis Current Visit: Yes Status: Acute Code(s): D72.829 - ELEVATED WHITE BLOOD CELL COUNT, UNSPECIFIED SNOMED Code(s): 350201148 (4) Acute sepsis Current Visit: Yes Status: Acute Code(s): A41.9 - SEPSIS, UNSPECIFIED ORGANISM SNOMED Code(s): 84376094
[2019-09-13] MEDS: LEVOTHYROXINE 100 MCG TAB PO SCH (05:10)
[2019-09-13 07:12] LABS: Glucose,Whole Blood 84 mg/dL (75-99)
[2019-09-13] MEDS: INSULIN ASPART (NovoLOG) 100 UNIT/ML VIAL SQ SCH ×4 (07:42→20:05)
[2019-09-13] MEDS: amLODIPine 10 MG TAB PO SCH (09:38)
[2019-09-13] MEDS: ALLOPURINOL 100 MG TAB PO SCH (09:38)
[2019-09-13] MEDS: APIXABAN 5 MG TAB PO SCH ×2 (09:38→20:05)
[2019-09-13] MEDS: METOPROLOL TARTRATE 25 MG TAB PO SCH ×2 (09:38→20:06)
[2019-09-13] MEDS: LISINOPRIL 20 MG TAB PO SCH (09:38)
[2019-09-13] MEDS: CARBIDOPA-LEVODOPA 25-100 MG 1 EACH TAB PO SCH ×3 (09:38→20:05)
[2019-09-13] MEDS: LINEZOLID 600 MG in DEXTROSE/WATER 1 300ML.BAG IVPB SCH ×2 (11:15→20:06)
[2019-09-13 11:57] LABS: Glucose,Whole Blood 102 mg/dL (75-99)
--- NOTE | 2019-09-13 14:50 | CDI ---
Documentation Clarification Form Date: 09/13/2019 2:32:08 PM From: Laly Muñoz RN CCDS Admit Date: 09/01/2019 9:54:00 AM Patient Name: Dayday Peterson Visit Number: [id number] Discharge Date: ATTENTION: The Clinical Documentation Specialists (CDI) and [facility] Coding Staff appreciate your assistance in clarifying documentation. Please respond to the clarification below the line at the bottom and electronically sign. The CDI & [facility] Coding staff will review the response and follow-up if needed. Please note: Queries are made part of the Legal Health Record. If you have any questions, please contact the author of this message via ITS. Dr. Kirstie Isbell Heart failure is documented in the H & P and in subsequent progress notes. History/Risk Factors:79-year-old male presents to the ED with generalized weakness and concern for infection. Medical history - Atrial Flutter; Heart Failure; Clinical Indicators: VS/Pulse OX: 08/31/2019 135/64 98 99.9 20 94% ra Echocardiogram Results:01/02/2019 mild concentric left ventricular hypertrophy left ventricular systolic function is normal with an EF between 55-60% Chest X Ray:08/31/2019 No active cardiopulmonary disease. Normal hear. There is clearing of infiltrate left lower lobe compared to old exam Home medication Lasix 40mg po Daily; Lopressor 25mg po bid; Lisinopril 40mg po bid Treatment: 08/31/2019 Lopressor 25 mg po bid; 09/06 Zestril 40mg po daily In your professional opinion, can you please clarify the acuity and type of CHF if known? * Chronic Diastolic Heart Failure * Heart Failure Ruled Out. * Unable to Determine * Other, please specify (Last Revision: January 2018) Chronic Diastolic Heart Failure MTDD
--- NOTE | 2019-09-13 15:56 | P.PN ---
Subjective Progress Note Date: 09/13/19 Principal diagnosis: 73-year-old male came in because of possible Infection as patient felt quite weak and lethargic found to have high-grade fever found to be septic with the lactic acidosis. Patient does take Lasix at home regimen of history of congestive heart failure. Patient does have Parkinson's and is on carbidopa levodopa for that. Patient lowered himself to Because of Generalized Weakness. Patient Chest X-Ray Did Not Show Pneumonia but Urine Is Significant Abnormality Patient Does Have History of UTI in the past Patient Has Enterococcus Which Is Resistant to Penicillin but Sensitive to Vancomycin. Patient Also Had MRSA UTI in the past. Urine Cultures Blood Cultures Were Obtained. 09/01/2019 Patient is lying in bed in no acute distress with no acute overnight issues. Patient states that he continues to feel weak and has been working with PT/OT. Infectious disease is following. Patient's blood cultures have resulted with presumptive MRSA and repeat blood cultures are pending at this time. Patient is currently on IV antibiotics in the form of ceftriaxone and vancomycin and will continue at this time. Patient denies any chest pain, shortness of breath, or palpitations. Patient has been afebrile. Patient denies any nausea or vomiting and is tolerating diet. Patient states that he has been falling more frequently at home in case management and social work are following for discharge planning as the patient may require rehab upon discharge. Will continue to monitor closely. 09/02/2019 Patient is lying in bed in no acute distress with no acute overnight issues. Repeat blood cultures have shown presumptive MRSA. Infectious disease is f ollowing. Patient is having some right knee pain an x-ray was done showing no fracture nor dislocation and joint spaces are normal with no signs of joint effusion. Patient is currently on IV antibiotics in the form of vancomycin and will continue at this time. Patient is on gentle IV hydration at 75mL/hr his creatinine is improving and is currently 1.56. White blood count is trending down and is currently 11.3. Will repeat a.m. labs. Cardiology is consulted and is pending at this time. Will continue to monitor vital signs and labs closely. 09/03/2019 Patient had persistent bacteremia will obtain ultrasound of the kidney to rule out any perinephric abscess along with the possible endocarditis. Patient is feeling a bit better today. Afebrile. 09/04/2019 Blood cultures from yesterday were negative. Patient will undergo SAL tomorrow ultrasound of the kidney did not show any perinephric abscess. Patient is feeling a little stronger today Constitutional: Denied any fatigue denied any fever. Cardio vascular: denied any chest pain, palpitations Gastrointestinal denied any nausea vomiting Pulmonary: Denied any shortness of breath cough Neurologic denied any new focal deficits 09/05/2019 Patient is lying in bed in no acute distress with no acute overnight issues. Patient is to undergo a SAL today around noon. Will await report. Patient is quite lethargic and continues to fall in and out of sleep while conversing. Currently patient denies any chest pain, shortness of breath, or palpitations. Patient is afebrile. Patient denies any nausea or vomiting and has been bryon erating diet. Patient states he is tired today. Blood cultures from yesterday have a preliminary reading of gram-positive cocci. Infectious disease is following. Will continue to monitor closely. 09/06/2019 Patient is sitting up in the chair in no acute distress with no acute overnight issues. Cardiology and infectious disease are following. Patient underwent a SAL yesterday showing no definite evidence of vegetations on the aortic valve and no vegetation noted on the mitral or tricuspid valves but did have a thrombus in the left atrial appendage that is about 1 cm in size. LV systolic function is normal and interatrial septum is intact. Patient was started on Eliquis and will continue at this time. Patient's blood cultures continue to show MRSA and will repeat blood cultures daily to monitor closely. Patient is currently on IV antibiotics in the form of daptomycin and will continue at this time. Vancomycin was discontinued. Currently patient denies any chest pain, shortness of breath, or palpitations. Patient has been afebrile. Patient denies any nausea or vomiting and has been tolerating diet. Patient States that he is urinating well with no issues but has not had a bowel movement in 3 days. Dulcolax was ordered. 09/07/2019 Patient is sitting up in the chair in no acute distress with no acute overnight issues. Family is at the bedside. Discussed with the family and patient at length today about CODE STATUS and patient's wishes are to be made a no code as he states "he does not want to be a vegetable something were to happen." Patient is much more awake and alert today and is sitting up having full conversation. Patient denies any chest pain, shortness of breath, or palpitations. Patient is afebrile. She denies any nausea or vomiting and is tolerating diet. Patient's repeat blood cultures continue to be positive and are showing gram-positive cocci. Patient continues to have elevated blood pressure and Norvasc 10 mg will be added today. Will continue to monitor closely. Patient is currently on IV antibiotics in the form of daptomycin and will continue at this time. Infectious disease is following. 09/08/2019 patient's last blood cultures that was positive at from of this month. Patient is still lethargic 09/09/2019 Patient remained is lethargic no significant change in his clinical condition patient is bit hypoglycemic today discontinue the pre-meal insulin will discontinue sliding scale insulin will cut down the Lantus dose. Patient blood cultures from are clear. Last positive blood cultures from the Nov ember Mr. Peterson is a 73-year-old male with chronic medical conditions including atrial flutter, congestive heart failure, COPD, diverticulitis, hypertension, thyroid disorder, bladder cancer coming into the hospital for fevers and lethargy. The workup for his fever with showed left atrial thrombus. And his blood cultures have been continuously positive for MRSA. Patient is currently on IV daptomycin , gentamicin and ceftriaxone as per DORETHA Childs recommendations. On 09/10/2019- as per the nursing staff report patient is more alert compared to yesterday. He complains of fatigue. Denies having any chest pain or difficulty in breathing. No cough. Denies having any fevers chills or rigors. No abdominal pain nausea vomiting or diarrhea. No dysuria or hematuria. His blood cultures from the are still positive for MRSA. On 09/11/2019 - as per the nursing staff report no acute events reported overnight. Patient is sitting up in a chair by the bedside. He is much more alert and awake compared to yesterday. Patient denies having any chest pain or palpitations. No cough or difficulty in breathing. No fevers chills or rigors. He mentions that his lower extremity edema is still there and he has been dealing with for a long time. Patient's blood cultures from of still positive for MRSA. ID Dr. Childs on board he change daptomycin to linezolid. oN 09/12/19 - Patient is lying in bed appears to be in no acute distress. Patient complains of generalized fatigue and weakness. Denies having any chest pain or palpitations. No weakness of his extremities. No fevers chills or rigors. No cough or difficulty breathing. On reviewing the labs patient's blood cultures from have been still positive for MRSA. He is currently on linezolid and ceftriaxone. 09/13/2019 Patient is sitting up in bed sleeping but easily arousable in no acute distress. No Acute overnight issues. Patient continues to have fatigue and weakness but is arousable. Patient able to answer questions and commands appropriately once a week. Currently patient denies any chest pain, shortness of breath, or palpitations. Patient is afebrile. Patient denies any nausea or vomiting and is tolerating diet. Infectious disease is following closely. Patient was recently transitioned to IV antibiotics in the form of Zyvox along with ceftriaxone. Most recent blood cultures continue to show positive for MRSA. Will await most recent blood culture repeats. Objective - Vital Signs Vital signs: Vital Signs Temp 97.8 F 09/13/19 15:30 Pulse 60 09/13/19 15:30 Resp 12 09/13/19 15:30 BP 128/77 09/13/19 15:30 Pulse Ox 98 09/13/19 15:30 Intake & Output 09/12/19 09/13/19 09/13/19 18:59 06:59 18:59 Intake Total 350 Balance 350 Weight 117 kg Intake: Intake, IV Titration 350 Amount Linezolid 600 mg In 300 Dextrose/Water 1 300ml. bag @ 150 mls/hr IVPB Q12HR UMAIR Rx#:[id number] cefTRIAXone 2 gm In 50 Sodium Chloride 0.9% 50 ml @ 100 mls/hr IVPB Q24HR UMAIR Rx#:[id number] Other: Voiding Method Urinal Urinal Urinal Diaper Diaper Diaper # Voids 1 2 - Exam GENERAL: The patient is alert and oriented x3. Well developed, well nourished. Patient is asleep but arousable and appears in no acute distress. HEENT: Pupils are round and equally reacting to light. EOMI. No scleral icterus. No conjunctival pallor. Normocephalic, atraumatic. No pharyngeal erythema. No thyromegaly. CARDIOVASCULAR: S1 and S2 present. No murmurs, rubs, or gallops. PULMONARY: Chest is clear to auscultation, no wheezing or crackles. ABDOMEN: Soft, non-tender, non-distended, normoactive bowel sounds. No palpable organomegaly. MUSCULOSKELETAL: No joint swelling or deformity. EXTREMITIES: No cyanosis, clubbing, bilateral lower extremity and pedal edema noted. NEUROLOGICAL: Gross neurological examination did not reveal any focal deficits. SKIN: No rashes. No open ulcerations or lesions noted - Labs CBC & Chem 7: 09/11/19 06:14 09/13/19 07:00 Labs: Abnormal Lab Results - Last 24 Hours (Table) 09/12/19 09/12/19 09/13/19 Range/Units 17:00 20:42 07:00 Creatinine 1.57 H (0.66-1.25) mg/dL POC Glucose (mg/dL) 151 H 226 H (75-99) mg/dL 09/13/19 Range/Units 11:55 Creatinine (0.66-1.25) mg/dL POC Glucose (mg/dL) 102 H (75-99) mg/dL Microbiology - Last 24 Hours (Table) 09/10/19 06:29 Blood Culture Gram Stain - Final Blood Blood Culture - Final Methicillin resist S. aureus Assessment and Plan Assessment: -Severe sepsis secondary to urinary tract infection Repeat blood cultures are MRSA. Patient's IV antibiotics have been switched to Zyvox and ceftriaxone. Wi ll continue with daily blood cultures. Infectious disease is following. -Extensive venous stasis dermatosis and bilateral pedal edema from venous stasis dermatosis Lasix will be held temporarily because of sepsis. -Type 2 diabetes mellitus, uncontrolled -Generalized weakness secondary to sepsis -Hypertension -Parkinson's -Hypothyroidism -COPD without any acute exacerbation -Acute kidney injury: From sepsis and Lasix is contributing to his acute renal failure -Chronic kidney disease stage 2-3 -Diabetic peripheral neuropathy. Recommendations and discussion: Recommend to continue current medications, management, and symptomatic treatment. Cardiology and Infectious disease are following. Patient will continue on IV antibiotics in the form of Zyvox and ceftriaxone at this time. Repeat blood culture pending at this time. Most recent blood cultures continue to show positive for MRSA. Will continue with daily draws. Will continue to monitor closely. Will repeat a.m. labs. Case management and social contact worker following as well for possible placement once patient is discharged. Patient will likely need IV antibiotics as well as continue PT/OT therapy for strength and mobility. Further recommendations to follow.
[2019-09-13 16:57] LABS: Glucose,Whole Blood 180 mg/dL (75-99)
[2019-09-13] MEDS ORDERED: GENTAMICIN TROUGH DUE 1 EACH MISC MISCELLANE ONE (19:30)
[2019-09-13 19:46] LABS: Glucose,Whole Blood 135 mg/dL (75-99)
[2019-09-13] MEDS ORDERED: GENTAMICIN PEAK DUE 1 EACH MISC MISCELLANE ONE (22:00)
[2019-09-13 22:25] LABS: Glucose,Whole Blood 148 mg/dL (75-99)
[2019-09-13] MEDS: INSULIN DETEMIR (LEVEMIR) 100 UNIT/ML SYR SQ SCH (22:43)
--- NOTE | 2019-09-13 22:51 | P.PN ---
Subjective Progress Note Date: 09/13/19 79-year-old male who lives in the family home with his spouse and grandchildren relates that he's been feeling poorly for a few days. He became very weak and actually lowered himself to the ground because he was so weak. EMS was called and he was brought to hospital. He was on evidence of a fever as well as leukocytosis and feeling quite poorly. Patient has a long-standing history of Parkinson's and is a limited historian. He denies severe pain at this time. 09/02/2019 patient remains a poor historian but he is a bit stronger and may have sitting up in the chair. He has no significant complaints. 09/05/2019 patient remains fatigued and feels ill but has been able to sit up in a chair, denies fevers or chills. SAL has now been performed. September 06 2019 the patient is sleepy and difficult to arouse this afternoon. His untouched lunch is next to him. His status is discussed with the nurse. He has been quite sleepy through the morning into the early afternoon. She will reassess if he does awaken make sure there some assistance in eating his meal. 09/07/2019 patient continues to be with ongoing sepsis and ongoing bacteremia despite antibiotic therapy and change of antibiotic therapy daptomycin. He is still very weak and ill which is quite different from his baseline. Discussion occurred with the primary care team yesterday. And the patient is now been appropriate and made no code is receiving ongoing aggressive interventions. September 10 the patient is more awake alert and interactive today. He seems to be modestly comfortable in is not complaining of severe pain. Laboratories reviewed he has evidence of ongoing bacteremia. Sep feels better was able to transfer to the chair unassisted except walker. no fevers feels poorly overall 09/12/2019 patient is fatigued today but no new acute troubles, appetite is adequate. 09/13/2019 the patient is more awake alert and interactive today. He continues to have a relatively good appetite no difficulty eating his dinner. No nausea or emesis. He does have some chronic back pain that is not acutely worse. Objective - Vital Signs Vital signs: Vital Signs Temp 98.2 F 09/13/19 20:01 Pulse 70 09/13/19 20:01 Resp 16 09/13/19 20:01 BP 121/64 09/13/19 20:01 Pulse Ox 96 09/13/19 20:01 Intake & Output 09/13/19 09/13/19 09/14/19 06:59 18:59 06:59 Weight 117 kg 105.233 kg Other: Voiding Method Urinal Urinal Diaper Diaper # Voids 1 2 - Exam 79-year-old male who seems to be comfortable, he was arousable but is noted is a very poor historian. HEENT: Anicteric conjunctiva are pink and moist nasal mucosa grossly intact without significant lesions, there is no thrush. Has dentures Neck: The neck is supple without significant lymphadenopathy or thyromegaly. Lungs: There is symmetrical bilateral air entry with few crackles at the bases no significant wheezing Heart: Irregular with a soft S4. No murmur click or rub Abdomen: Mildly obese, Positive bowel sounds soft and nontender without palpable masses or organomegaly. There was no guarding or rebound. Extremities: The upper extremities have excellent pulses they are symmetric, no significant petechiae or telangiectasia. No splinter hemorrhages were noted. Lower extremities have evidence of extensive bilateral lower extremity edema, skin is thickened toenails are untrimmed no open ulcerations are seen Neuro: Patient is much more awake alert and interactive today. - Labs CBC & Chem 7: 09/11/19 06:14 09/13/19 07:00 Labs: Abnormal Lab Results - Last 24 Hours (Table) 09/13/19 09/13/19 09/13/19 Range/Units 07:00 11:55 16:56 Creatinine 1.57 H (0.66-1.25) mg/dL POC Glucose (mg/dL) 102 H 180 H (75-99) mg/dL 09/13/19 09/13/19 Range/Units 19:44 22:23 Creatinine (0.66-1.25) mg/dL POC Glucose (mg/dL) 135 H 148 H (75-99) mg/dL Microbiology - Last 24 Hours (Table) 09/10/19 06:29 Blood Culture Gram Stain - Final Blood Blood Culture - Final Methicillin resist S. aureus Laboratory Results WBC 9.7 k/uL (3.8-10.6) 09/11/19 06:14 RBC 3.53 m/uL (4.30-5.90) L 09/11/19 06:14 Hgb 10.9 gm/dL (13.0-17.5) L 09/11/19 06:14 Hct 33.1 % (39.0-53.0) L 09/11/19 06:14 MCV 93.9 fL (80.0-100.0) 09/11/19 06:14 MCH 30.8 pg (25.0-35.0) 09/11/19 06:14 MCHC 32.8 g/dL (31.0-37.0) 09/11/19 06:14 RDW 13.2 % (11.5-15.5) 09/11/19 06:14 Plt Count 386 k/uL (150-450) 09/11/19 06:14 Neutrophils % 75 % 09/11/19 06:14 Lymphocytes % 17 % 09/11/19 06:14 Monocytes % 6 % 09/11/19 06:14 Eosinophils % 1 % 09/11/19 06:14 Basophils % 0 % 09/11/19 06:14 Neutrophils # 7.3 k/uL (1.3-7.7) 09/11/19 06:14 Lymphocytes # 1.6 k/uL (1.0-4.8) 09/11/19 06:14 Monocytes # 0.6 k/uL (0-1.0) 09/11/19 06:14 Eosinophils # 0.1 k/uL (0-0.7) 09/11/19 06:14 Basophils # 0.0 k/uL (0-0.2) 09/11/19 06:14 PT 10.4 sec (9.0-12.0) 08/31/19 01:55 INR 1.0 (<1.2) 08/31/19 01:55 APTT 22.1 sec (22.0-30.0) 08/31/19 01:55 Sample Site rrad 09/06/19 16:12 ABG pH 7.43 (7.35-7.45) 09/06/19 16:12 ABG pCO2 37 mmHg (35-45) 09/06/19 16:12 ABG pO2 88 mmHg (83-108) 09/06/19 16:12 ABG HCO3 24 mmol/L (21-25) 09/06/19 16:12 ABG Total CO2 26 mmol/L (19-24) H 09/06/19 16:12 ABG O2 Saturation 97.1 % (94-97) H 09/06/19 16:12 ABG Base Excess 0.2 mmol/L 09/06/19 16:12 Job Test Yes 09/06/19 16:12 FiO2 28 % 09/06/19 16:12 Sodium 138 mmol/L (137-145) 09/11/19 06:14 Potassium 4.3 mmol/L (3.5-5.1) 09/11/19 06:14 Chloride 100 mmol/L (98-107) 09/11/19 06:14 Carbon Dioxide 29 mmol/L (22-30) 09/11/19 06:14 Anion Gap 9 mmol/L 09/11/19 06:14 BUN 11 mg/dL (9-20) 09/11/19 06:14 Creatinine 1.57 mg/dL (0.66-1.25) H 09/13/19 07:00 Est GFR (CKD-EPI)AfAm 48 (>60 ml/min/1.73 sqM) 09/13/19 07:00 Est GFR (CKD-EPI)NonAf 42 (>60 ml/min/1.73 sqM) 09/13/19 07:00 Glucose 152 mg/dL (74-99) H 09/11/19 06:14 POC Glucose (mg/dL) 148 mg/dL (75-99) H 09/13/19 22:23 POC Glu [employer] Work[employer] Jaleesa Corbett 09/13/19 22:[address] Glu mg/dL 206 09/01/19 06:30 Hemoglobin A1c 8.8 % (4.0-6.0) H 09/01/19 06:30 Lactic Ac Sepsis Rflx Y 08/31/19 02:45 Plasma Lactic Acid [place] 0.7 mmol/L (0.7-2.0) 09/06/19 16:44 Calcium 8.5 mg/dL (8.4-10.2) 09/11/19 06:14 Total Bilirubin 0.4 mg/dL (0.2-1.3) 09/09/19 06:50 AST 15 U/L (17-59) L 09/09/19 06:50 ALT 8 U/L (21-72) L 09/09/19 06:50 Alkaline Phosphatase 74 U/L (38-126) 09/09/19 06:50 Troponin I 0.018 ng/mL (0.000-0.034) 08/31/19 01:55 Total Protein 5.5 g/dL (6.3-8.2) L 09/09/19 06:50 Albumin 2.5 g/dL (3.5-5.0) L 09/09/19 06:50 Urine Color Yellow 08/31/19 02:48 Urine Appearance Cloudy (Clear) 08/31/19 02:48 Urine pH 5.5 (5.0-8.0) 08/31/19 02:48 Ur Specific [place] 1.015 (1.001-1.035) 08/31/19 02:48 Urine Protein 1+ (Negative) H 08/31/19 02:48 Urine Glucose (UA) 2+ (Negative) H 08/31/19 02:48 Urine Ketones Negative (Negative) 08/31/19 02:48 Urine Blood Trace (Negative) H 08/31/19 02:48 Urine Nitrite Negative (Negative) 08/31/19 02:48 Urine Bilirubin Negative (Negative) 08/31/19 02:48 Urine Urobilinogen <2.0 mg/dL (<2.0) 08/31/19 02:48 Ur Leukocyte Esterase Large (Negative) H 08/31/19 02:48 Urine RBC 2 /hpf (0-5) 08/31/19 02:48 Urine WBC 176 /hpf (0-5) H 08/31/19 02:48 Urine WBC Clumps Many /hpf (None) H 08/31/19 02:48 Ur Squamous Epith Cells <1 /hpf (0-4) 08/31/19 02:48 Urine Bacteria Rare /hpf (None) H 08/31/19 02:48 Hyaline Casts 3 /lpf (0-2) H 08/31/19 02:48 Urine Mucus Rare /hpf (None) H 08/31/19 02:48 Urine Yeast (Budding) Few /hpf (None) H 08/31/19 02:48 Gentamicin Peak 5.0 ug/mL 09/09/19 09:32 Gentamicin Trough 1.4 ug/mL 09/11/19 13:01 Vancomycin Trough 14.9 ug/mL 09/05/19 06:35 Influenza Type A RNA Not Detected (Not Detectd) 08/31/19 01:55 Influenza Type B (PCR) Not Detected (Not Detectd) 08/31/19 01:55 Microbiology 09/10/19 06:29 Blood Blood Culture Gram Stain - Final 09/10/19 06:29 Blood Blood Culture - Final Methicillin resist S. aureus 09/09/19 06:50 Blood Blood Culture Gram Stain - Final 09/09/19 06:50 Blood Blood Culture - Final Methicillin resist S. aureus 09/10/19 06:29 Blood Blood Culture - Final 09/08/19 08:00 Blood Blood Culture Gram Stain - Final 09/08/19 08:00 Blood Blood Culture - Final Methicillin resist S. aureus 09/09/19 06:50 Blood Blood Culture - Final 09/07/19 06:28 Blood Blood Culture Gram Stain - Final 09/07/19 06:28 Blood Blood Culture - Final Methicillin resist S. aureus 09/08/19 08:00 Blood Blood Culture - Final 09/06/19 07:19 Blood Blood Culture Gram Stain - Final 09/06/19 07:19 Blood Blood Culture - Final Methicillin resist S. aureus 09/07/19 06:28 Blood Blood Culture - Final 09/06/19 07:19 Blood Blood Culture - Final 09/04/19 05:54 Blood Blood Culture Gram Stain - Final 09/04/19 05:54 Blood Blood Culture - Final Methicillin resist S. aureus 09/03/19 06:39 Blood Blood Culture Gram Stain - Final 09/03/19 06:39 Blood Blood Culture - Final Methicillin resist S. aureus 08/31/19 02:48 Urine,Clean Catch Urine Culture - Final Summer glabrata 08/31/19 22:29 Blood Blood Culture Gram Stain - Final 08/31/19 22:29 Blood Blood Culture - Final Methicillin resist S. aureus 08/31/19 22:03 Blood Blood Culture Gram Stain - Final 08/31/19 22:03 Blood Blood Culture - Final Methicillin resist S. aureus 09/04/19 05:54 Blood Blood Culture - Final 09/03/19 06:39 Blood Blood Culture - Final 08/31/19 01:55 Blood Blood Culture Gram Stain - Final 08/31/19 01:55 Blood Blood Culture - Final Methicillin resist S. aureus 08/31/19 22:03 Blood Blood Culture - Final 08/31/19 22:29 Blood Blood Culture - Final 08/31/19 01:55 Blood Blood Culture - Final Assessment and Plan (1) Bacteremia Narrative/Plan: 79-year-old male who has a history of diabetes, Parkinson's disease and history of bladder cancer that has been treated with surgical intervention as well as intravesicular treatment. He now presents with a worsening of his status showing evidence of a high-grade fever, leukocytosis, elevated lactic acid which are all consistent with recurrent sepsis from urinary system in this debilitated gentleman. Antibiotic therapy was begun with vancomycin based on his recent urine cultures that showed evidence of MRSA and enterococcus that was not vancomycin resistant. There is evidence of the positive blood culture with gram-positive cocci. The patient has had an echocardiogram done earlier this year without evidence of any severe valvular disease. At this time with continued vancomycin therapy. Will request follow blood cultures to be performed to evaluate clearance of bacteremia with treatment of antibiotic therapy. With the development of bacteremia will need outpatient i ntravenous antibiotic therapy. The lower extremities evidence of chronic edema but there does not appear to be any open ulcerations or cellulitis, local care with elevation and compression stockings could be helpful. 09/02/2019 patient is bit stronger, but has evidence of ongoing positive blood cultures. Conservatively to urinary source and ultrasound of the kidneys has been requested to evaluate for any type of obstruction problem or renal abscess. Also perinephric abscess. By November vancomycin continues. We'll follow blood cultures again tomorrow to see be certain occurs bacteremia with therapy. He 15 feels slightly better but still has ongoing acute illness at this time. 09/05/2019 the patient remains chronically ill feeling somewhat poorly. He is having improvement of his fever but there remains ongoing positive blood cultures. With this we'll transition vancomycin to daptomycin and high-dose. We'll monitor a weekly CK level. Once we have clearance of his bacteremia will need some type of IV access to allow treatment post hospital stay. The etiology of the ongoing bacteremia could be the clots within the left atrium and may require a longer time for clearance of his bacteremia. There is no evidence of any urinary source as noted by the relatively normal renal ultra sound. Patient does feel somewhat better than admission and hopefully be able to start with the discharge plan. 09/06/2019 the patient had SAL performed that shows evidence of the left atrial clot in this is the likely etiology of his persistent bacteremia. Antibiotic therapy was altered yesterday to high-dose daptomycin with evidence of vancomycin failure. We'll continue to monitor and follow blood cultures are reportedly been performed. The patient however is much more sedated today. He has not really arousing very well. Concerns are brought to the nurse to contact the hospitalist to ensure that this has not been a significant change of his status which is concerning because of his persistent bacteremia and left atrial clot. 09/07/2019 the patient remains significantly ill with ongoing bacteremia, ongoing altered mentation but is hematologically stable. Antibiotic therapy continues with daptomycin which was just changed and will add a few doses of gentamicin to try to clear the bacteremia. It appears that the clot in the left atrium is the nidus for the current and ongoing bacteremia. His prognosis is poor and appropriately has been made no code at this point in time. If bacteremia clears he will then require 6 weeks of intravenous antibiotic therapy and rehab facility. 09/09/2019 the patient has some improvement of his status today. His mentation is definitely improved since his last evaluation. However he continues evidence of positive blood cultures. Antibiotic therapy is ready been transitioned from vancomycin to high-dose daptomycin. Despite this there are still some positive blood cultures. Gentamicin was added but he with this there appears to be some positive blood cultures. We'll add Rocephin and attempt for further synergistic bacteriocidal effect the try to clear his bacteremia. He is on Sinemet and is not a candidate for Zyvox therapy. The patient fortunately is feeling somewhat better, has no fever and leukocytosis is improved over time. Follow cultures are being followed. 09/11/2019 the patient is with some further improvement today. He was up with a walker transferring from the bed to chair. He was generally unassisted except with a walker. He is feeling slightly better. Still feels quite poorly overall. We discussed the ongoing bacteremia despite the combination of antibiotics at this time. So far he has failed vancomycin, combination of vancomycin and gentamicin, accommodation of daptomycin and gentamicin, Rocephin was also added to a combination of try to further obtain some synergy which has not been effective. The daptomycin will be transitioned to linezolide, the staff is instructed about the importance of following his blood pressure should be monitored through his infusion. Interaction is possible because of the medications but with his failure of all attempts so far is required at this time. The 09/12/2019 the patient is a bit sleepy today but continues to have some improvement. He has noted the patient has ongoing bacteremia on the basis of his left atrial appendage clot that is infected with MRSA. Multiple antibiotic regimens have been tried. He has now been placed on Zyvox were awaiting some follow-up blood cultures to see if this will allow clearance of his bacteremia that was not clear despite combination of multiple prior antibiotics. Patient does seem to be stable and feeling slightly better. She's had no toxicity from the addition of the Zyvox. 09/13/2019 the patient is more awake and interactive today. Evidence of his chronic pain he is doing a bit better today appetite is fair. Nursing staff relates in no acute issues. Follow blood cultures are process and so far her negative however there just several hours old. Hopefully with the current change of antibiotic therapy to Zyvox to have clearance of his persistent bacteremia from the left atrial clot. Current Visit: Yes Status: Acute Code(s): R78.81 - BACTEREMIA SNOMED Code(s): 6096465 (2) Urinary tract infection Current Visit: Yes Status: Acute Code(s): N39.0 - URINARY TRACT INFECTION, SITE NOT SPECIFIED SNOMED Code(s): 45963091 (3) Leukocytosis Current Visit: Yes Status: Acute Code(s): D72.829 - ELEVATED WHITE BLOOD CELL COUNT, UNSPECIFIED SNOMED Code(s): 213453285 (4) Acute sepsis Current Visit: Yes Status: Acute Code(s): A41.9 - SEPSIS, UNSPECIFIED ORGANISM SNOMED Code(s): 50200774
[2019-09-14] MEDS: ACETAMINOPHEN TAB 325 MG TAB PO PRN ×2 (01:21→09:09)
[2019-09-14] MEDS: LEVOTHYROXINE 100 MCG TAB PO SCH (06:09)
[2019-09-14 07:17] LABS: Glucose,Whole Blood 104 mg/dL (75-99)
[2019-09-14] MEDS: INSULIN ASPART (NovoLOG) 100 UNIT/ML VIAL SQ SCH ×4 (07:22→21:16)
[2019-09-14 07:50] LABS: Basophils % (A) 0 %; Eosinophils # (A) 0.2 k/uL (0-0.7); Eosinophils % (A) 2 %; HCT 34.6 % (39.0-53.0); HGB 11.2 gm/dL (13.0-17.5); Lymphocytes # (A) 1.7 k/uL (1.0-4.8); Lymphocytes % (A) 22 %; MCHC 32.4 g/dL (31.0-37.0); MCV 92.7 fL (80.0-100.0); Mean Platelet Volume 8.7; Monocytes # (A) 0.6 k/uL (0-1.0); Monocytes % (A) 7 %; Neutrophils # (A) 5.4 k/uL (1.3-7.7); Neutrophils % (A) 67 %; Platelet Count 420 k/uL (150-450); RBC 3.74 m/uL (4.30-5.90); RDW 13.2 % (11.5-15.5)
[2019-09-14 08:01] LABS: Calcium 9.1 mg/dL (8.4-10.2); Potassium 4.2 mmol/L (3.5-5.1)
[2019-09-14] MEDS: amLODIPine 10 MG TAB PO SCH (08:12)
[2019-09-14] MEDS: METOPROLOL TARTRATE 25 MG TAB PO SCH ×2 (08:12→21:13)
[2019-09-14] MEDS: ALLOPURINOL 100 MG TAB PO SCH (08:12)
[2019-09-14] MEDS: APIXABAN 5 MG TAB PO SCH ×2 (08:12→21:13)
[2019-09-14] MEDS: CARBIDOPA-LEVODOPA 25-100 MG 1 EACH TAB PO SCH ×3 (08:12→21:12)
[2019-09-14] MEDS: LISINOPRIL 20 MG TAB PO SCH (08:12)
[2019-09-14] MEDS: LINEZOLID 600 MG in DEXTROSE/WATER 1 300ML.BAG IVPB SCH ×2 (09:09→21:16)
[2019-09-14 12:06] LABS: Glucose,Whole Blood 177 mg/dL (75-99)
--- NOTE | 2019-09-14 15:17 | P.PN ---
Subjective Progress Note Date: 09/14/19 Principal diagnosis: 73-year-old male came in because of possible Infection as patient felt quite weak and lethargic found to have high-grade fever found to be septic with the lactic acidosis. Patient does take Lasix at home regimen of history of congestive heart failure. Patient does have Parkinson's and is on carbidopa levodopa for that. Patient lowered himself to Because of Generalized Weakness. Patient Chest X-Ray Did Not Show Pneumonia but Urine Is Significant Abnormality Patient Does Have History of UTI in the past Patient Has Enterococcus Which Is Resistant to Penicillin but Sensitive to Vancomycin. Patient Also Had MRSA UTI in the past. Urine Cultures Blood Cultures Were Obtained. 09/01/2019 Patient is lying in bed in no acute distress with no acute overnight issues. Patient states that he continues to feel weak and has been working with PT/OT. Infectious disease is following. Patient's blood cultures have resulted with presumptive MRSA and repeat blood cultures are pending at this time. Patient is currently on IV antibiotics in the form of ceftriaxone and vancomycin and will continue at this time. Patient denies any chest pain, shortness of breath, or palpitations. Patient has been afebrile. Patient denies any nausea or vomiting and is tolerating diet. Patient states that he has been falling more frequently at home in case management and social work are following for discharge planning as the patient may require rehab upon discharge. Will continue to monitor closely. 09/02/2019 Patient is lying in bed in no acute distress with no acute overnight issues. Repeat blood cultures have shown presumptive MRSA. Infectious disease is f ollowing. Patient is having some right knee pain an x-ray was done showing no fracture nor dislocation and joint spaces are normal with no signs of joint effusion. Patient is currently on IV antibiotics in the form of vancomycin and will continue at this time. Patient is on gentle IV hydration at 75mL/hr his creatinine is improving and is currently 1.56. White blood count is trending down and is currently 11.3. Will repeat a.m. labs. Cardiology is consulted and is pending at this time. Will continue to monitor vital signs and labs closely. 09/03/2019 Patient had persistent bacteremia will obtain ultrasound of the kidney to rule out any perinephric abscess along with the possible endocarditis. Patient is feeling a bit better today. Afebrile. 09/04/2019 Blood cultures from yesterday were negative. Patient will undergo SAL tomorrow ultrasound of the kidney did not show any perinephric abscess. Patient is feeling a little stronger today Constitutional: Denied any fatigue denied any fever. Cardio vascular: denied any chest pain, palpitations Gastrointestinal denied any nausea vomiting Pulmonary: Denied any shortness of breath cough Neurologic denied any new focal deficits 09/05/2019 Patient is lying in bed in no acute distress with no acute overnight issues. Patient is to undergo a SAL today around noon. Will await report. Patient is quite lethargic and continues to fall in and out of sleep while conversing. Currently patient denies any chest pain, shortness of breath, or palpitations. Patient is afebrile. Patient denies any nausea or vomiting and has been bryon erating diet. Patient states he is tired today. Blood cultures from yesterday have a preliminary reading of gram-positive cocci. Infectious disease is following. Will continue to monitor closely. 09/06/2019 Patient is sitting up in the chair in no acute distress with no acute overnight issues. Cardiology and infectious disease are following. Patient underwent a SAL yesterday showing no definite evidence of vegetations on the aortic valve and no vegetation noted on the mitral or tricuspid valves but did have a thrombus in the left atrial appendage that is about 1 cm in size. LV systolic function is normal and interatrial septum is intact. Patient was started on Eliquis and will continue at this time. Patient's blood cultures continue to show MRSA and will repeat blood cultures daily to monitor closely. Patient is currently on IV antibiotics in the form of daptomycin and will continue at this time. Vancomycin was discontinued. Currently patient denies any chest pain, shortness of breath, or palpitations. Patient has been afebrile. Patient denies any nausea or vomiting and has been tolerating diet. Patient States that he is urinating well with no issues but has not had a bowel movement in 3 days. Dulcolax was ordered. 09/07/2019 Patient is sitting up in the chair in no acute distress with no acute overnight issues. Family is at the bedside. Discussed with the family and patient at length today about CODE STATUS and patient's wishes are to be made a no code as he states "he does not want to be a vegetable something were to happen." Patient is much more awake and alert today and is sitting up having full conversation. Patient denies any chest pain, shortness of breath, or palpitations. Patient is afebrile. She denies any nausea or vomiting and is tolerating diet. Patient's repeat blood cultures continue to be positive and are showing gram-positive cocci. Patient continues to have elevated blood pressure and Norvasc 10 mg will be added today. Will continue to monitor closely. Patient is currently on IV antibiotics in the form of daptomycin and will continue at this time. Infectious disease is following. 09/08/2019 patient's last blood cultures that was positive at from of this month. Patient is still lethargic 09/09/2019 Patient remained is lethargic no significant change in his clinical condition patient is bit hypoglycemic today discontinue the pre-meal insulin will discontinue sliding scale insulin will cut down the Lantus dose. Patient blood cultures from are clear. Last positive blood cultures from the Nov ember Mr. Peterson is a 73-year-old male with chronic medical conditions including atrial flutter, congestive heart failure, COPD, diverticulitis, hypertension, thyroid disorder, bladder cancer coming into the hospital for fevers and lethargy. The workup for his fever with showed left atrial thrombus. And his blood cultures have been continuously positive for MRSA. Patient is currently on IV daptomycin , gentamicin and ceftriaxone as per DORETHA Childs recommendations. On 09/10/2019- as per the nursing staff report patient is more alert compared to yesterday. He complains of fatigue. Denies having any chest pain or difficulty in breathing. No cough. Denies having any fevers chills or rigors. No abdominal pain nausea vomiting or diarrhea. No dysuria or hematuria. His blood cultures from the are still positive for MRSA. On 09/11/2019 - as per the nursing staff report no acute events reported overnight. Patient is sitting up in a chair by the bedside. He is much more alert and awake compared to yesterday. Patient denies having any chest pain or palpitations. No cough or difficulty in breathing. No fevers chills or rigors. He mentions that his lower extremity edema is still there and he has been dealing with for a long time. Patient's blood cultures from of still positive for MRSA. ID Dr. Childs on board he change daptomycin to linezolid. oN 09/12/19 - Patient is lying in bed appears to be in no acute distress. Patient complains of generalized fatigue and weakness. Denies having any chest pain or palpitations. No weakness of his extremities. No fevers chills or rigors. No cough or difficulty breathing. On reviewing the labs patient's blood cultures from have been still positive for MRSA. He is currently on linezolid and ceftriaxone. 09/13/2019 Patient is sitting up in bed sleeping but easily arousable in no acute distress. No Acute overnight issues. Patient continues to have fatigue and weakness but is arousable. Patient able to answer questions and commands appropriately once a week. Currently patient denies any chest pain, shortness of breath, or palpitations. Patient is afebrile. Patient denies any nausea or vomiting and is tolerating diet. Infectious disease is following closely. Patient was recently transitioned to IV antibiotics in the form of Zyvox along with ceftriaxone. Most recent blood cultures continue to show positive for MRSA. Will await most recent blood culture repeats. 09/14/2019 Patient is sitting up in the bed in no acute distress. Repeat blood cultures preliminary showing gram-positive cocci. No acute overnight issues. Infectious disease is following closely. REVIEW OF SYSTEMS: Cardiovascular: No reports of chest pain or palpitations Respiratory: No reports of shortness of breath or cough Musculoskeletal: Reports of chronic back pain GI: No reports of nausea, vomiting, or diarrhea : No reports of dysuria or retention Objective - Vital Signs Vital signs: Vital Signs Temp 98.6 F 09/14/19 07:31 Pulse 64 09/14/19 07:31 Resp 17 09/14/19 07:31 BP 131/71 09/14/19 07:31 Pulse Ox 94 L 09/14/19 09:08 Intake & Output 09/13/19 09/14/19 09/14/19 18:59 06:59 18:59 Intake Total 910 Output Total 300 Balance 610 Weight 105.233 kg 114.5 kg Intake: Intake, IV Titration 350 Amount Linezolid 600 mg In 300 Dextrose/Water 1 300ml. bag @ 150 mls/hr IVPB Q12HR UMAIR Rx#:[id number] cefTRIAXone 2 gm In 50 Sodium Chloride 0.9% 50 ml @ 100 mls/hr IVPB Q24HR UMARI Rx#:[id number] Oral 560 Output: Urine 300 Other: Voiding Method Urinal Urinal Urinal Diaper Diaper Diaper # Voids 2 1 3 - Exam GENERAL: The patient is alert and oriented x3. Well developed, well nourished. Patient is asleep but arousable and appears in no acute distress. HEENT: Pupils are round and equally reacting to light. EOMI. No scleral icterus. No conjunctival pallor. Normocephalic, atraumatic. No pharyngeal erythema. No thyromegaly. CARDIOVASCULAR: S1 and S2 present. No murmurs, rubs, or gallops. PULMONARY: Chest is clear to auscultation, no wheezing or crackles. ABDOMEN: Soft, non-tender, non-distended, normoactive bowel sounds. No palpable organomegaly. MUSCULOSKELETAL: No joint swelling or deformity. EXTREMITIES: No cyanosis, clubbing, bilateral lower extremity and pedal edema noted. NEUROLOGICAL: Gross neurological examination did not reveal any focal deficits. SKIN: No rashes. No open ulcerations or lesions noted - Labs CBC & Chem 7: 09/14/19 06:51 09/14/19 06:51 Labs: Abnormal Lab Results - Last 24 Hours (Table) 09/13/19 09/13/19 09/13/19 Range/Units 16:56 19:44 22:23 RBC (4.30-5.90) m/uL Hgb (13.0-17.5) gm/dL Hct (39.0-53.0) % Carbon Dioxide (22-30) mmol/L Creatinine (0.66-1.25) mg/dL Glucose (74-99) mg/dL POC Glucose (mg/dL) 180 H 135 H 148 H (75-99) mg/dL 09/14/19 09/14/19 09/14/19 Range/Units 06:51 06:51 07:06 RBC 3.74 L (4.30-5.90) m/uL Hgb 11.2 L (13.0-17.5) gm/dL Hct 34.6 L (39.0-53.0) % Carbon Dioxide 32 H (22-30) mmol/L Creatinine 1.54 H (0.66-1.25) mg/dL Glucose 107 H (74-99) mg/dL POC Glucose (mg/dL) 104 H (75-99) mg/dL 09/14/19 Range/Units 11:49 RBC (4.30-5.90) m/uL Hgb (13.0-17.5) gm/dL Hct (39.0-53.0) % Carbon Dioxide (22-30) mmol/L Creatinine (0.66-1.25) mg/dL Glucose (74-99) mg/dL POC Glucose (mg/dL) 177 H (75-99) mg/dL Microbiology - Last 24 Hours (Table) 09/13/19 07:18 Blood Culture Gram Stain - Preliminary Blood 09/13/19 07:18 Blood Culture - Final Blood 09/13/19 07:00 Blood Culture - Preliminary Blood No Growth after 24 hours Assessment and Plan Assessment: -Severe sepsis secondary to urinary tract infection Repeat blood cultures are MRSA. Patient's IV antibiotics have been switched to Zyvox and ceftriaxone. Will continue with daily blood cultures. Infectious disease is following. -Extensive venous stasis dermatosis and bilateral pedal edema from venous stasis dermatosis Lasix will be held temporarily because of sepsis. -Type 2 diabetes mellitus, uncontrolled -Generalized weakness secondary to sepsis -Hypertension -Parkinson's -Hypothyroidism -COPD without any acute exacerbation -Acute kidney injury: From sepsis and Lasix is contributing to his acute renal failure -Chronic kidney disease stage 2-3 -Diabetic peripheral neuropathy. Recommendations and discussion: Recommend to continue current medications, management, and symptomatic treatment. Cardiology and Infectious disease are following. Patient will continue on IV antibiotics in the form of Zyvox and ceftriaxone at this time. Repeat blood culture preliminary growth showing gram-positive cocci. Will await finalization of cultures. Will continue with daily draws. Will continue to monitor closely. Case management and social media specialist following as well for possible placement once patient is discharged. Patient will likely need IV antibiotics as well as continue PT/OT therapy for strength and mobility. Further recommendations to follow.
[2019-09-14 17:02] LABS: Glucose,Whole Blood 154 mg/dL (75-99)
[2019-09-14 20:35] LABS: Glucose,Whole Blood 185 mg/dL (75-99)
[2019-09-14] MEDS: INSULIN DETEMIR (LEVEMIR) 100 UNIT/ML SYR SQ SCH (21:13)
--- NOTE | 2019-09-14 23:16 | P.PN ---
Subjective Progress Note Date: 09/14/19 79-year-old male who lives in the family home with his spouse and grandchildren relates that he's been feeling poorly for a few days. He became very weak and actually lowered himself to the ground because he was so weak. EMS was called and he was brought to hospital. He was on evidence of a fever as well as leukocytosis and feeling quite poorly. Patient has a long-standing history of Parkinson's and is a limited historian. He denies severe pain at this time. 09/02/2019 patient remains a poor historian but he is a bit stronger and may have sitting up in the chair. He has no significant complaints. 09/05/2019 patient remains fatigued and feels ill but has been able to sit up in a chair, denies fevers or chills. SAL has now been performed. September 06 2019 the patient is sleepy and difficult to arouse this afternoon. His untouched lunch is next to him. His status is discussed with the nurse. He has been quite sleepy through the morning into the early afternoon. She will reassess if he does awaken make sure there some assistance in eating his meal. 09/07/2019 patient continues to be with ongoing sepsis and ongoing bacteremia despite antibiotic therapy and change of antibiotic therapy daptomycin. He is still very weak and ill which is quite different from his baseline. Discussion occurred with the primary care team yesterday. And the patient is now been appropriate and made no code is receiving ongoing aggressive interventions. September 10 the patient is more awake alert and interactive today. He seems to be modestly comfortable in is not complaining of severe pain. Laboratories reviewed he has evidence of ongoing bacteremia. Sep feels better was able to transfer to the chair unassisted except walker. no fevers feels poorly overall 09/12/2019 patient is fatigued today but no new acute troubles, appetite is adequate. 09/13/2019 the patient is more awake alert and interactive today. He continues to have a relatively good appetite no difficulty eating his dinner. No nausea or emesis. He does have some chronic back pain that is not acutely worse. 09/14/2019 patient sitting up in the chair and his is visiting. He is a bit more awake alert and interactive than he has been. He exhibits a mild sense of humor. Patient's is pleased but is concerned that he is not eating well. Objective - Vital Signs Vital signs: Vital Signs Temp 97.9 F 09/14/19 19:33 Pulse 66 09/14/19 19:33 Resp 16 09/14/19 22:30 BP 114/69 09/14/19 19:33 Pulse Ox 100 09/14/19 19:33 Intake & Output 09/14/19 09/14/19 09/15/19 06:59 18:59 06:59 Intake Total 1290 900 Output Total 300 Balance 990 900 Weight 114.5 kg Intake: Intake, IV Titration 350 900 Amount Linezolid 600 mg In 300 300 Dextrose/Water 1 300ml. bag @ 150 mls/hr IVPB Q12HR [facility] Rx#:[id number] Sodium Chloride 0.9% 500 600 ml 500 ml @ 0 mls/hr IV . [facility] Rx#: [id number] cefTRIAXone 2 gm In 50 Sodium Chloride 0.9% 50 ml @ 100 mls/hr IVPB Q24HR [facility] Rx#:[id number] Oral 940 Output: Urine 300 Other: Voiding Method Urinal Urinal Urinal Diaper Diaper Diaper # Voids 1 1 - Exam 79-year-old male who seems to be comfortable, visiting with his HEENT: Anicteric conjunctiva are pink and moist nasal mucosa grossly intact without significant lesions, there is no thrush. Has dentures Neck: The neck is supple without significant lymphadenopathy or thyromegaly. Lungs: There is symmetrical bilateral air entry with few crackles at the bases no significant wheezing Heart: Irregular with a soft S4. No murmur click or rub Abdomen: Mildly obese, Positive bowel sounds soft and nontender without palpable masses or organomegaly. There was no guarding or rebound. Extremities: The upper extremities have excellent pulses they are symmetric, no significant petechiae or telangiectasia. No splinter hemorrhages were noted. Lower extremities have evidence of extensive bilateral lower extremity edema, skin is thickened toenails are untrimmed no open ulcerations are seen Neuro: Patient is much more awake alert and interactive today. Up in the chair. - Labs CBC & Chem 7: 09/14/19 06:51 09/14/19 06:51 Labs: Abnormal Lab Results - Last 24 Hours (Table) 09/14/19 09/14/19 09/14/19 Range/Units 06:51 06:51 07:06 RBC 3.74 L (4.30-5.90) m/uL Hgb 11.2 L (13.0-17.5) gm/dL Hct 34.6 L (39.0-53.0) % Carbon Dioxide 32 H (22-30) mmol/L Creatinine 1.54 H (0.66-1.25) mg/dL Glucose 107 H (74-99) mg/dL POC Glucose (mg/dL) 104 H (75-99) mg/dL 09/14/19 09/14/19 09/14/19 Range/Units 11:49 17:01 20:34 RBC (4.30-5.90) m/uL Hgb (13.0-17.5) gm/dL Hct (39.0-53.0) % Carbon Dioxide (22-30) mmol/L Creatinine (0.66-1.25) mg/dL Glucose (74-99) mg/dL POC Glucose (mg/dL) 177 H 154 H 185 H (75-99) mg/dL Microbiology - Last 24 Hours (Table) 09/13/19 07:18 Blood Culture Gram Stain - Preliminary Blood 09/13/19 07:18 Blood Culture - Final Blood 09/13/19 07:00 Blood Culture - Preliminary Blood No Growth after 24 hours Laboratory Results WBC 8.0 k/uL (3.8-10.6) 09/14/19 06:51 RBC 3.74 m/uL (4.30-5.90) L 09/14/19 06:51 Hgb 11.2 gm/dL (13.0-17.5) L 09/14/19 06:51 Hct 34.6 % (39.0-53.0) L 09/14/19 06:51 MCV 92.7 fL (80.0-100.0) 09/14/19 06:51 MCH 30.0 pg (25.0-35.0) 09/14/19 06:51 MCHC 32.4 g/dL (31.0-37.0) 09/14/19 06:51 RDW 13.2 % (11.5-15.5) 09/14/19 06:51 Plt Count 420 k/uL (150-450) 09/14/19 06:51 Neutrophils % 67 % 09/14/19 06:51 Lymphocytes % 22 % 09/14/19 06:51 Monocytes % 7 % 09/14/19 06:51 Eosinophils % 2 % 09/14/19 06:51 Basophils % 0 % 09/14/19 06:51 Neutrophils # 5.4 k/uL (1.3-7.7) 09/14/19 06:51 Lymphocytes # 1.7 k/uL (1.0-4.8) 09/14/19 06:51 Monocytes # 0.6 k/uL (0-1.0) 09/14/19 06:51 Eosinophils # 0.2 k/uL (0-0.7) 09/14/19 06:51 Basophils # 0.0 k/uL (0-0.2) 09/14/19 06:51 PT 10.4 sec (9.0-12.0) 08/31/19 01:55 INR 1.0 (<1.2) 08/31/19 01:55 APTT 22.1 sec (22.0-30.0) 08/31/19 01:55 Sample Site rrad 09/06/19 16:12 ABG pH 7.43 (7.35-7.45) 09/06/19 16:12 ABG pCO2 37 mmHg (35-45) 09/06/19 16:12 ABG pO2 88 mmHg (83-108) 09/06/19 16:12 ABG HCO3 24 mmol/L (21-25) 09/06/19 16:12 ABG Total CO2 26 mmol/L (19-24) H 09/06/19 16:12 ABG O2 Saturation 97.1 % (94-97) H 09/06/19 16:12 ABG Base Excess 0.2 mmol/L 09/06/19 16:12 Job Test Yes 09/06/19 16:12 FiO2 28 % 09/06/19 16:12 Sodium 138 mmol/L (137-145) 09/14/19 06:51 Potassium 4.2 mmol/L (3.5-5.1) 09/14/19 06:51 Chloride 100 mmol/L (98-107) 09/14/19 06:51 Carbon Dioxide 32 mmol/L (22-30) H 09/14/19 06:51 Anion Gap 6 mmol/L 09/14/19 06:51 BUN 11 mg/dL (9-20) 09/14/19 06:51 Creatinine 1.54 mg/dL (0.66-1.25) H 09/14/19 06:51 Est GFR (CKD-EPI)AfAm 49 (>60 ml/min/1.73 sqM) 09/14/19 06:51 Est GFR (CKD-EPI)NonAf 43 (>60 ml/min/1.73 sqM) 09/14/19 06:51 Glucose 107 mg/dL (74-99) H 09/14/19 06:51 POC Glucose (mg/dL) 185 mg/dL (75-99) H 09/14/19 20:34 POC Glu Lead Instructor/Flight Attendant DORETHA Jaleesa Catalan 09/14/19 20:[address] Glu mg/dL 206 09/01/19 06:30 Hemoglobin A1c 8.8 % (4.0-6.0) H 09/01/19 06:30 Lactic Ac Sepsis Rflx Y 08/31/19 02:45 Plasma Lactic Acid [place] 0.7 mmol/L (0.7-2.0) 09/06/19 16:44 Calcium 9.1 mg/dL (8.4-10.2) 09/14/19 06:51 Total Bilirubin 0.4 mg/dL (0.2-1.3) 09/09/19 06:50 AST 15 U/L (17-59) L 09/09/19 06:50 ALT 8 U/L (21-72) L 09/09/19 06:50 Alkaline Phosphatase 74 U/L (38-126) 09/09/19 06:50 Troponin I 0.018 ng/mL (0.000-0.034) 08/31/19 01:55 Total Protein 5.5 g/dL (6.3-8.2) L 09/09/19 06:50 Albumin 2.5 g/dL (3.5-5.0) L 09/09/19 06:50 Urine Color Yellow 08/31/19 02:48 Urine Appearance Cloudy (Clear) 08/31/19 02:48 Urine pH 5.5 (5.0-8.0) 08/31/19 02:48 Ur Specific [place] 1.015 (1.001-1.035) 08/31/19 02:48 Urine Protein 1+ (Negative) H 08/31/19 02:48 Urine Glucose (UA) 2+ (Negative) H 08/31/19 02:48 Urine Ketones Negative (Negative) 08/31/19 02:48 Urine Blood Trace (Negative) H 08/31/19 02:48 Urine Nitrite Negative (Negative) 08/31/19 02:48 Urine Bilirubin Negative (Negative) 08/31/19 02:48 Urine Urobilinogen <2.0 mg/dL (<2.0) 08/31/19 02:48 Ur Leukocyte Esterase Large (Negative) H 08/31/19 02:48 Urine RBC 2 /hpf (0-5) 08/31/19 02:48 Urine WBC 176 /hpf (0-5) H 08/31/19 02:48 Urine WBC Clumps Many /hpf (None) H 08/31/19 02:48 Ur Squamous Epith Cells <1 /hpf (0-4) 08/31/19 02:48 Urine Bacteria Rare /hpf (None) H 08/31/19 02:48 Hyaline Casts 3 /lpf (0-2) H 08/31/19 02:48 Urine Mucus Rare /hpf (None) H 08/31/19 02:48 Urine Yeast (Budding) Few /hpf (None) H 08/31/19 02:48 Gentamicin Peak 5.0 ug/mL 09/09/19 09:32 Gentamicin Trough 1.4 ug/mL 09/11/19 13:01 Vancomycin Trough 14.9 ug/mL 09/05/19 06:35 Influenza Type A RNA Not Detected (Not Detectd) 08/31/19 01:55 Influenza Type B (PCR) Not Detected (Not Detectd) 08/31/19 01:55 Microbiology 09/13/19 07:18 Blood Blood Culture Gram Stain - Preliminary 09/13/19 07:18 Blood Blood Culture - Final 09/13/19 07:00 Blood Blood Culture - Preliminary No Growth after 24 hours 09/10/19 06:29 Blood Blood Culture Gram Stain - Final 09/10/19 06:29 Blood Blood Culture - Final Methicillin resist S. aureus 09/09/19 06:50 Blood Blood Culture Gram Stain - Final 09/09/19 06:50 Blood Blood Culture - Final Methicillin resist S. aureus 09/10/19 06:29 Blood Blood Culture - Final 09/08/19 08:00 Blood Blood Culture Gram Stain - Final 09/08/19 08:00 Blood Blood Culture - Final Methicillin resist S. aureus 09/09/19 06:50 Blood Blood Culture - Final 09/07/19 06:28 Blood Blood Culture Gram Stain - Final 09/07/19 06:28 Blood Blood Culture - Final Methicillin resist S. aureus 09/08/19 08:00 Blood Blood Culture - Final 09/06/19 07:19 Blood Blood Culture Gram Stain - Final 09/06/19 07:19 Blood Blood Culture - Final Methicillin resist S. aureus 09/07/19 06:28 Blood Blood Culture - Final 09/06/19 07:19 Blood Blood Culture - Final 09/04/19 05:54 Blood Blood Culture Gram Stain - Final 09/04/19 05:54 Blood Blood Culture - Final Methicillin resist S. aureus 09/03/19 06:39 Blood Blood Culture Gram Stain - Final 09/03/19 06:39 Blood Blood Culture - Final Methicillin resist S. aureus 08/31/19 02:48 Urine,Clean Catch Urine Culture - Final [place] 08/31/19 22:29 Blood Blood Culture Gram Stain - Final 08/31/19 22:29 Blood Blood Culture - Final Methicillin resist S. aureus 08/31/19 22:03 Blood Blood Culture Gram Stain - Final 08/31/19 22:03 Blood Blood Culture - Final Methicillin resist S. aureus 09/04/19 05:54 Blood Blood Culture - Final 09/03/19 06:39 Blood Blood Culture - Final 08/31/19 01:55 Blood Blood Culture Gram Stain - Final 08/31/19 01:55 Blood Blood Culture - Final Methicillin resist S. aureus 08/31/19 22:03 Blood Blood Culture - Final 08/31/19 22:29 Blood Blood Culture - Final 08/31/19 01:55 Blood Blood Culture - Final Assessment and Plan (1) Bacteremia Narrative/Plan: 79-year-old male who has a history of diabetes, Parkinson's disease and history of bladder cancer that has been treated with surgical intervention as well as intravesicular treatment. He now presents with a worsening of his status showing evidence of a high-grade fever, leukocytosis, elevated lactic acid which are all consistent with recurrent sepsis from urinary system in this debilitated gentleman. Antibiotic therapy was begun with vancomycin based on his recent urine cultures that showed evidence of MRSA and enterococcus that was not vancomycin resistant. There is evidence of the positive blood culture with gram-positive cocci. The patient has had an echocardiogram done earlier this year without evidence of any severe valvular disease. At this time with continued vancomycin therapy. Will request follow blood cultures to be performed to evaluate clearance of bacteremia with treatment of antibiotic therapy. With the development of bacteremia will need outpatient intravenous antibiotic therapy. The lower extremities evidence of chronic edema but there does not appear to be any open ulcerations or cellulitis, local care with elevation and compression stockings could be helpful. 09/02/2019 patient is bit stronger, but has evidence of ongoing positive blood cultures. Conservatively to urinary source and ultrasound of the kidneys has been requested to evaluate for any type of obstruction problem or renal abscess. Also perinephric abscess. By November vancomycin continues. We'll follow blood cultures again tomorrow to see be certain occurs bacteremia with therapy. He 15 feels slightly better but still has ongoing acute illness at this time. 09/05/2019 the patient remains chronically ill feeling somewhat poorly. He is having improvement of his fever but there remains ongoing positive blood cultures. With this we'll transition vancomycin to daptomycin and high-dose. We'll monitor a weekly CK level. Once we have clearance of his bacteremia will need some type of IV access to allow treatment post hospital stay. The etiology of the ongoing bacteremia could be the clots within the left atrium and may require a longer time for clearance of his bacteremia. There is no evidence of any urinary source as noted by the relatively normal renal ultrasound. Patient does feel somewhat better than admission and hopefully be able to start with the discharge plan. 09/06/2019 the patient had SAL performed that shows evidence of the left atrial clot in this is the likely etiology of his persistent bacteremia. Antibiotic therapy was altered yesterday to high-dose daptomycin with evidence of vancomycin failure. We'll continue to monitor and follow blood cultures are reportedly been performed. The patient however is much more sedated today. He has not really arousing very well. Concerns are brought to the nurse to contact the hospitalist to ensure that this has not been a significant change of his status which is concerning because of his persistent bacteremia and left atrial clot. 09/07/2019 the patient remains significantly ill with ongoing bacteremia, ongoing altered mentation but is hematologically stable. Antibiotic therapy continues with daptomycin which was just changed and will add a few doses of gentamicin to try to clear the bacteremia. It appears that the clot in the left atrium is the nidus for the current and ongoing bacteremia. His prognosis is poor and appropriately has been made no code at this point in time. If bacteremia clears he will then require 6 weeks of intravenous antibiotic therapy and rehab facility. 09/09/2019 the patient has some improvement of his status today. His mentation is definitely improved since his last evaluation. However he continues evidence of positive blood cultures. Antibiotic therapy is ready been transitioned from vancomycin to high-dose daptomycin. Despite this there are still some positive blood cultures. Gentamicin was added but he with this there appears to be some positive blood cultures. We'll add Rocephin and attempt for further synergistic bacteriocidal effect the try to clear his bacteremia. He is on Sinemet and is not a candidate for Zyvox therapy. The patient fortunately is feeling somewhat better, has no fever and leukocytosis is improved over time. Follow cultures are being followed. 09/11/2019 the patient is with some further improvement today. He was up with a walker transferring from the bed to chair. He was generally unassisted except with a walker. He is feeling slightly better. Still feels quite poorly overall. We discussed the ongoing bacteremia despite the combination of antibiotics at this time. So far he has failed vancomycin, combination of vancomycin and gentamicin, accommodation of daptomycin and gentamicin, Rocephin was also added to a combination of try to further obtain some synergy which has not been effective. The daptomycin will be transitioned to linezolide, the staff is instructed about the importance of following his blood pressure should be monitored through his infusion. Interaction is possible because of the medications but with his failure of all attempts so far is required at this time. The 09/12/2019 the patient is a bit sleepy today but continues to have some improvement. He has noted the patient has ongoing bacteremia on the basis of his left atrial appendage clot that is infected with MRSA. Multiple antibiotic regimens have been tried. He has now been placed on Zyvox were awaiting some follow-up blood cultures to see if this will allow clearance of his bacteremia that was not clear despite combination of multiple prior antibiotics. Patient does seem to be stable and feeling slightly better. She's had no toxicity from the addition of the Zyvox. 09/13/2019 the patient is more awake and interactive today. Evidence of his chronic pain he is doing a bit better today appetite is fair. Nursing staff relates in no acute issues. Follow blood cultures are process and so far her negative however there just several hours old. Hopefully with the current [place] of antibiotic therapy to Zyvox to have clearance of his persistent bacteremia from the left atrial clot. 09/14/2019 patient seems to be in better spirits today. Seems to be feeling better and is having a visit with his . [place] very well and patient's is encouraged to bring some food from home which may stimulate his appetite. Blood culture has now turned positive again for what appears to be staph. However it considerably longer for this blood culture did become positive hopefully signaling that the bacteremia will be responding to the current antibiotic therapy changed to Zyvox. This will continue with follow blood cultures are again requested. Zyvox continues. His acute kidney injury is being monitored. He is receiving his anticoagulation regarding the left atrial clot it appears to be the focus of his ongoing bacteremia. Current Visit: Yes Status: Acute Code(s): R78.81 - BACTEREMIA SNOMED Code(s): 0548110 (2) Urinary tract infection Current Visit: Yes Status: Acute Code(s): N39.0 - URINARY TRACT INFECTION, SITE NOT SPECIFIED SNOMED Code(s): 06916866 (3) Leukocytosis Current Visit: Yes Status: Acute Code(s): D72.829 - ELEVATED WHITE BLOOD CELL COUNT, UNSPECIFIED SNOMED Code(s): 696569352 (4) Acute sepsis Current Visit: Yes Status: Acute Code(s): A41.9 - SEPSIS, UNSPECIFIED ORGANISM SNOMED Code(s): 81951314
[2019-09-15] MEDS: ACETAMINOPHEN TAB 325 MG TAB PO PRN (00:56)
[2019-09-15] MEDS: LEVOTHYROXINE 100 MCG TAB PO SCH (06:23)
[2019-09-15 07:05] LABS: Glucose,Whole Blood 149 mg/dL (75-99)
[2019-09-15] MEDS: ALLOPURINOL 100 MG TAB PO SCH (08:14)
[2019-09-15] MEDS: APIXABAN 5 MG TAB PO SCH ×2 (08:14→20:53)
[2019-09-15] MEDS: CARBIDOPA-LEVODOPA 25-100 MG 1 EACH TAB PO SCH ×3 (08:14→20:53)
[2019-09-15] MEDS: LISINOPRIL 20 MG TAB PO SCH (08:22)
[2019-09-15] MEDS: amLODIPine 10 MG TAB PO SCH (08:22)
[2019-09-15] MEDS: METOPROLOL TARTRATE 25 MG TAB PO SCH ×2 (08:22→20:53)
[2019-09-15] MEDS: INSULIN ASPART (NovoLOG) 100 UNIT/ML VIAL SQ SCH ×4 (08:22→20:54)
[2019-09-15] MEDS: LINEZOLID 600 MG in DEXTROSE/WATER 1 300ML.BAG IVPB SCH ×2 (09:26→20:53)
[2019-09-15 09:31] LABS: Calcium 9.2 mg/dL (8.4-10.2); Potassium 4.4 mmol/L (3.5-5.1)
[2019-09-15 12:01] LABS: Glucose,Whole Blood 177 mg/dL (75-99)
--- NOTE | 2019-09-15 14:16 | P.PN ---
Subjective Progress Note Date: 09/15/19 Principal diagnosis: 73-year-old male came in because of possible Infection as patient felt quite weak and lethargic found to have high-grade fever found to be septic with the lactic acidosis. Patient does take Lasix at home regimen of history of congestive heart failure. Patient does have Parkinson's and is on carbidopa levodopa for that. Patient lowered himself to Because of Generalized Weakness. Patient Chest X-Ray Did Not Show Pneumonia but Urine Is Significant Abnormality Patient Does Have History of UTI in the past Patient Has Enterococcus Which Is Resistant to Penicillin but Sensitive to Vancomycin. Patient Also Had MRSA UTI in the past. Urine Cultures Blood Cultures Were Obtained. 09/01/2019 Patient is lying in bed in no acute distress with no acute overnight issues. Patient states that he continues to feel weak and has been working with PT/OT. Infectious disease is following. Patient's blood cultures have resulted with presumptive MRSA and repeat blood cultures are pending at this time. Patient is currently on IV antibiotics in the form of ceftriaxone and vancomycin and will continue at this time. Patient denies any chest pain, shortness of breath, or palpitations. Patient has been afebrile. Patient denies any nausea or vomiting and is tolerating diet. Patient states that he has been falling more frequently at home in case management and social work are following for discharge planning as the patient may require rehab upon discharge. Will continue to monitor closely. 09/02/2019 Patient is lying in bed in no acute distress with no acute overnight issues. Repeat blood cultures have shown presumptive MRSA. Infectious disease is f ollowing. Patient is having some right knee pain an x-ray was done showing no fracture nor dislocation and joint spaces are normal with no signs of joint effusion. Patient is currently on IV antibiotics in the form of vancomycin and will continue at this time. Patient is on gentle IV hydration at 75mL/hr his creatinine is improving and is currently 1.56. White blood count is trending down and is currently 11.3. Will repeat a.m. labs. Cardiology is consulted and is pending at this time. Will continue to monitor vital signs and labs closely. 09/03/2019 Patient had persistent bacteremia will obtain ultrasound of the kidney to rule out any perinephric abscess along with the possible endocarditis. Patient is feeling a bit better today. Afebrile. 09/04/2019 Blood cultures from yesterday were negative. Patient will undergo SAL tomorrow ultrasound of the kidney did not show any perinephric abscess. Patient is feeling a little stronger today Constitutional: Denied any fatigue denied any fever. Cardio vascular: denied any chest pain, palpitations Gastrointestinal denied any nausea vomiting Pulmonary: Denied any shortness of breath cough Neurologic denied any new focal deficits 09/05/2019 Patient is lying in bed in no acute distress with no acute overnight issues. Patient is to undergo a SAL today around noon. Will await report. Patient is quite lethargic and continues to fall in and out of sleep while conversing. Currently patient denies any chest pain, shortness of breath, or palpitations. Patient is afebrile. Patient denies any nausea or vomiting and has been bryon erating diet. Patient states he is tired today. Blood cultures from yesterday have a preliminary reading of gram-positive cocci. Infectious disease is following. Will continue to monitor closely. 09/06/2019 Patient is sitting up in the chair in no acute distress with no acute overnight issues. Cardiology and infectious disease are following. Patient underwent a SAL yesterday showing no definite evidence of vegetations on the aortic valve and no vegetation noted on the mitral or tricuspid valves but did have a thrombus in the left atrial appendage that is about 1 cm in size. LV systolic function is normal and interatrial septum is intact. Patient was started on Eliquis and will continue at this time. Patient's blood cultures continue to show MRSA and will repeat blood cultures daily to monitor closely. Patient is currently on IV antibiotics in the form of daptomycin and will continue at this time. Vancomycin was discontinued. Currently patient denies any chest pain, shortness of breath, or palpitations. Patient has been afebrile. Patient denies any nausea or vomiting and has been tolerating diet. Patient States that he is urinating well with no issues but has not had a bowel movement in 3 days. Dulcolax was ordered. 09/07/2019 Patient is sitting up in the chair in no acute distress with no acute overnight issues. Family is at the bedside. Discussed with the family and patient at length today about CODE STATUS and patient's wishes are to be made a no code as he states "he does not want to be a vegetable something were to happen." Patient is much more awake and alert today and is sitting up having full conversation. Patient denies any chest pain, shortness of breath, or palpitations. Patient is afebrile. She denies any nausea or vomiting and is tolerating diet. Patient's repeat blood cultures continue to be positive and are showing gram-positive cocci. Patient continues to have elevated blood pressure and Norvasc 10 mg will be added today. Will continue to monitor closely. Patient is currently on IV antibiotics in the form of daptomycin and will continue at this time. Infectious disease is following. 09/08/2019 patient's last blood cultures that was positive at from of this month. Patient is still lethargic 09/09/2019 Patient remained is lethargic no significant change in his clinical condition patient is bit hypoglycemic today discontinue the pre-meal insulin will discontinue sliding scale insulin will cut down the Lantus dose. Patient blood cultures from are clear. Last positive blood cultures from the Nov ember Mr. Peterson is a 73-year-old male with chronic medical conditions including atrial flutter, congestive heart failure, COPD, diverticulitis, hypertension, thyroid disorder, bladder cancer coming into the hospital for fevers and lethargy. The workup for his fever with showed left atrial thrombus. And his blood cultures have been continuously positive for MRSA. Patient is currently on IV daptomycin , gentamicin and ceftriaxone as per DORETHA Childs recommendations. On 09/10/2019- as per the nursing staff report patient is more alert compared to yesterday. He complains of fatigue. Denies having any chest pain or difficulty in breathing. No cough. Denies having any fevers chills or rigors. No abdominal pain nausea vomiting or diarrhea. No dysuria or hematuria. His blood cultures from the are still positive for MRSA. On 09/11/2019 - as per the nursing staff report no acute events reported overnight. Patient is sitting up in a chair by the bedside. He is much more alert and awake compared to yesterday. Patient denies having any chest pain or palpitations. No cough or difficulty in breathing. No fevers chills or rigors. He mentions that his lower extremity edema is still there and he has been dealing with for a long time. Patient's blood cultures from of still positive for MRSA. ID Dr. Childs on board he change daptomycin to linezolid. oN 09/12/19 - Patient is lying in bed appears to be in no acute distress. Patient complains of generalized fatigue and weakness. Denies having any chest pain or palpitations. No weakness of his extremities. No fevers chills or rigors. No cough or difficulty breathing. On reviewing the labs patient's blood cultures from have been still positive for MRSA. He is currently on linezolid and ceftriaxone. 09/13/2019 Patient is sitting up in bed sleeping but easily arousable in no acute distress. No Acute overnight issues. Patient continues to have fatigue and weakness but is arousable. Patient able to answer questions and commands appropriately once a week. Currently patient denies any chest pain, shortness of breath, or palpitations. Patient is afebrile. Patient denies any nausea or vomiting and is tolerating diet. Infectious disease is following closely. Patient was recently transitioned to IV antibiotics in the form of Zyvox along with ceftriaxone. Most recent blood cultures continue to show positive for MRSA. Will await most recent blood culture repeats. 09/14/2019 Patient is sitting up in the bed in no acute distress. Repeat blood cultures preliminary showing gram-positive cocci. No acute overnight issues. Infectious disease is following closely. REVIEW OF SYSTEMS: Cardiovascular: No reports of chest pain or palpitations Respiratory: No reports of shortness of breath or cough Musculoskeletal: Reports of chronic back pain GI: No reports of nausea, vomiting, or diarrhea : No reports of dysuria or retention 09/15/2019 Patient is sitting up in the chair with no acute overnight issues. Repeat blood cultures from 09/13/2019 are showing Staphylococcus aureus. Will await for finalization. Infectious disease is following. Creatinine is slightly elevated at 1.75. Will repeat a.m. labs. Objective - Vital Signs Vital signs: Vital Signs Temp 97.9 F 09/15/19 00:40 Pulse 71 09/15/19 08:24 Resp 14 09/15/19 08:24 BP 147/68 09/15/19 08:24 Pulse Ox 95 09/15/19 08:24 Intake & Output 09/14/19 09/15/19 09/15/19 18:59 06:59 18:59 Intake Total 2557 267 0611 Output Total 300 300 250 Balance 990 600 900 Weight 103 kg Intake: Intake, IV Titration 350 900 350 Amount Linezolid 600 mg In 300 300 300 Dextrose/Water 1 300ml. bag @ 150 mls/hr IVPB Q12HR [facility] Rx#:[id number] Sodium Chloride 0.9% 500 600 ml 500 ml @ 0 mls/hr IV . [facility] Rx#: [id number] cefTRIAXone 2 gm In 50 50 Sodium Chloride 0.9% 50 ml @ 100 mls/hr IVPB Q24HR [facility] Rx#:[id number] Oral 940 800 Output: Urine 300 300 250 Other: Voiding Method Urinal Urinal Urinal Diaper Diaper Diaper # Voids 1 1 - Exam GENERAL: The patient is alert and oriented x3. Well developed, well nourished. Patient is awake and appears in no acute distress. HEENT: Pupils are round and equally reacting to light. EOMI. No scleral icterus. No conjunctival pallor. Normocephalic, atraumatic. No pharyngeal erythema. No thyromegaly. CARDIOVASCULAR: S1 and S2 present. No murmurs, rubs, or gallops. PULMONARY: Chest is clear to auscultation, no wheezing or crackles. ABDOMEN: Soft, non-tender, non-distended, normoactive bowel sounds. No palpable organomegaly. MUSCULOSKELETAL: No joint swelling or deformity. EXTREMITIES: No cyanosis, clubbing, bilateral lower extremity and pedal edema noted. NEUROLOGICAL: Gross neurological examination did not reveal any focal deficits. SKIN: No rashes. No open ulcerations or lesions noted - Labs CBC & Chem 7: 09/14/19 06:51 09/15/19 08:40 Labs: Abnormal Lab Results - Last 24 Hours (Table) 09/14/19 09/14/19 09/15/19 Range/Units 17:01 20:34 07:03 Creatinine (0.66-1.25) mg/dL Glucose (74-99) mg/dL POC Glucose (mg/dL) 154 H 185 H 149 H (75-99) mg/dL 09/15/19 09/15/19 Range/Units 08:40 11:59 Creatinine 1.75 H (0.66-1.25) mg/dL Glucose 129 H (74-99) mg/dL POC Glucose (mg/dL) 177 H (75-99) mg/dL Microbiology - Last 24 Hours (Table) 09/14/19 06:51 Blood Culture - Preliminary Blood No Growth after 24 hours 09/13/19 07:00 Blood Culture Gram Stain - Preliminary Blood 09/13/19 07:18 Blood Culture Gram Stain - Preliminary Blood Blood Culture - Preliminary Staphylococcus aureus 09/13/19 07:00 Blood Culture - Final Blood 09/13/19 07:18 Blood Culture - Final Blood Assessment and Plan Assessment: -Severe sepsis secondary to urinary tract infection Repeat blood cultures are preliminary with Staphylococcus aureus. Patient's IV antibiotics have been switched to Zyvox and ceftriaxone. Will continue with daily blood cultures. Infectious disease is following. -Extensive venous stasis dermatosis and bilateral pedal edema from venous stasis dermatosis Lasix will be held temporarily because of sepsis. -Type 2 diabetes mellitus, uncontrolled -Generalized weakness secondary to sepsis -Hypertension -Parkinson's -Hypothyroidism -COPD without any acute exacerbation -Acute kidney injury: From sepsis and Lasix is contributing to his acute renal failure -Chronic kidney disease stage 2-3 -Diabetic peripheral neuropathy. Recommendations and discussion: Recommend to continue current medications, management, and symptomatic treatment. Infectious disease is following. Patient will continue on IV antibiotics in the form of Zyvox and ceftriaxone at this time. Repeat blood culture preliminary growth showing Staphylococcus aureus. Will await finalizati on of cultures. Will continue with daily draws. Will continue to monitor closely. Case management and social scientist following as well for possible placement once patient is discharged. Patient will likely need IV antibiotics as well as continue PT/OT therapy for strength and mobility. Further r ecommendations to follow.
[2019-09-15 17:11] LABS: Glucose,Whole Blood 151 mg/dL (75-99)
[2019-09-15 20:24] LABS: Glucose,Whole Blood 188 mg/dL (75-99)
[2019-09-15] MEDS: INSULIN DETEMIR (LEVEMIR) 100 UNIT/ML SYR SQ SCH (20:54)
--- NOTE | 2019-09-15 22:41 | P.PN ---
Subjective Progress Note Date: 09/15/19 79-year-old male who lives in the family home with his spouse and grandchildren relates that he's been feeling poorly for a few days. He became very weak and actually lowered himself to the ground because he was so weak. EMS was called and he was brought to hospital. He was on evidence of a fever as well as leukocytosis and feeling quite poorly. Patient has a long-standing history of Parkinson's and is a limited historian. He denies severe pain at this time. 09/02/2019 patient remains a poor historian but he is a bit stronger and may have sitting up in the chair. He has no significant complaints. 09/05/2019 patient remains fatigued and feels ill but has been able to sit up in a chair, denies fevers or chills. SAL has now been performed. September 06 2019 the patient is sleepy and difficult to arouse this afternoon. His untouched lunch is next to him. His status is discussed with the nurse. He has been quite sleepy through the morning into the early afternoon. She will reassess if he does awaken make sure there some assistance in eating his meal. 09/07/2019 patient continues to be with ongoing sepsis and ongoing bacteremia despite antibiotic therapy and change of antibiotic therapy daptomycin. He is still very weak and ill which is quite different from his baseline. Discussion occurred with the primary care team yesterday. And the patient is now been appropriate and made no code is receiving ongoing aggressive interventions. September 10 the patient is more awake alert and interactive today. He seems to be modestly comfortable in is not complaining of severe pain. Laboratories reviewed he has evidence of ongoing bacteremia. Sep feels better was able to transfer to the chair unassisted except walker. no fevers feels poorly overall 09/12/2019 patient is fatigued today but no new acute troubles, appetite is adequate. 09/13/2019 the patient is more awake alert and interactive today. He continues to have a relatively good appetite no difficulty eating his dinner. No nausea or emesis. He does have some chronic back pain that is not acutely worse. 09/14/2019 patient sitting up in the chair and his is visiting. He is a bit more awake alert and interactive than he has been. He exhibits a mild sense of humor. Patient's is pleased but is concerned that he is not eating well. 09/15/2019 Patient is again showing some improvement today. He is up in the chair he is eating his lunch without difficulty and voices no severe discomfort. He is uncomfortable but is wondering when he will be well enough to be able to leave hospital. We discussed that he continues having ongoing bacteremic infection related to the left atrial clot that is infected. The cardiovascular team does not believe that they can remove the clot. Objective - Vital Signs Vital signs: Vital Signs Temp 97.7 F 09/15/19 19:10 Pulse 64 09/15/19 19:10 Resp 12 09/15/19 15:30 BP 138/68 09/15/19 19:10 Pulse Ox 93 L 09/15/19 19:10 Intake & Output 09/15/19 09/15/19 09/16/19 06:59 18:59 06:59 Intake Total 900 1150 Output Total 300 250 Balance 600 900 Weight 103 kg Intake: Intake, IV Titration 900 350 Amount Linezolid 600 mg In 300 300 Dextrose/Water 1 300ml. bag @ 150 mls/hr IVPB Q12HR [facility] Rx#:[id number] Sodium Chloride 0.9% 500 600 ml 500 ml @ 0 mls/hr IV . [facility] Rx#: [id number] cefTRIAXone 2 gm In 50 Sodium Chloride 0.9% 50 ml @ 100 mls/hr IVPB Q24HR [facility] Rx#:[id number] Oral 800 Output: Urine 300 250 Other: Voiding Method Urinal Urinal Urinal Diaper Diaper Diaper # Voids 1 - Exam 79-year-old male who seems to be comfortable, visiting with his HEENT: Anicteric conjunctiva are pink and moist nasal mucosa grossly intact without significant lesions, there is no thrush. Has dentures Neck: The neck is supple without significant lymphadenopathy or thyromegaly. Lungs: There is symmetrical bilateral air entry with few crackles at the bases no significant wheezing Heart: Irregular with a soft S4. No murmur click or rub Abdomen: Mildly obese, Positive bowel sounds soft and nontender without palpable masses or organomegaly. There was no guarding or rebound. Extremities: The upper extremities have excellent pulses they are symmetric, no significant petechiae or telangiectasia. No splinter hemorrhages were noted. Lower extremities have evidence of extensive bilateral lower extremity edema, skin is thickened toenails are untrimmed no open ulcerations are seen Neuro: Patient is much more awake alert and interactive today. Up in the chair. - Labs CBC & Chem 7: 09/14/19 06:51 09/15/19 08:40 Labs: Abnormal Lab Results - Last 24 Hours (Table) 09/15/19 09/15/19 09/15/19 Range/Units 07:03 08:40 11:59 Creatinine 1.75 H (0.66-1.25) mg/dL Glucose 129 H (74-99) mg/dL POC Glucose (mg/dL) 149 H 177 H (75-99) mg/dL 09/15/19 09/15/19 Range/Units 17:09 20:22 Creatinine (0.66-1.25) mg/dL Glucose (74-99) mg/dL POC Glucose (mg/dL) 151 H 188 H (75-99) mg/dL Microbiology - Last 24 Hours (Table) 09/13/19 07:00 Blood Culture Gram Stain - Preliminary Blood Blood Culture - Preliminary Presumptive MRSA 09/14/19 06:51 Blood Culture - Preliminary Blood No Growth after 24 hours 09/13/19 07:18 Blood Culture Gram Stain - Preliminary Blood Blood Culture - Preliminary Staphylococcus aureus 09/13/19 07:00 Blood Culture - Final Blood Laboratory Results WBC 8.0 k/uL (3.8-10.6) 09/14/19 06:51 RBC 3.74 m/uL (4.30-5.90) L 09/14/19 06:51 Hgb 11.2 gm/dL (13.0-17.5) L 09/14/19 06:51 Hct 34.6 % (39.0-53.0) L 09/14/19 06:51 MCV 92.7 fL (80.0-100.0) 09/14/19 06:51 MCH 30.0 pg (25.0-35.0) 09/14/19 06:51 MCHC 32.4 g/dL (31.0-37.0) 09/14/19 06:51 RDW 13.2 % (11.5-15.5) 09/14/19 06:51 Plt Count 420 k/uL (150-450) 09/14/19 06:51 Neutrophils % 67 % 12/04/19 06:51 Lymphocytes % 22 % 09/14/19 06:51 Monocytes % 7 % 09/14/19 06:51 Eosinophils % 2 % 09/14/19 06:51 Basophils % 0 % 09/14/19 06:51 Neutrophils # 5.4 k/uL (1.3-7.7) 09/14/19 06:51 Lymphocytes # 1.7 k/uL (1.0-4.8) 09/14/19 06:51 Monocytes # 0.6 k/uL (0-1.0) 09/14/19 06:51 Eosinophils # 0.2 k/uL (0-0.7) 09/14/19 06:51 Basophils # 0.0 k/uL (0-0.2) 09/14/19 06:51 PT 10.4 sec (9.0-12.0) 08/31/19 01:55 INR 1.0 (<1.2) 08/31/19 01:55 APTT 22.1 sec (22.0-30.0) 08/31/19 01:55 Sample Site rrad 09/06/19 16:12 ABG pH 7.43 (7.35-7.45) 09/06/19 16:12 ABG pCO2 37 mmHg (35-45) 09/06/19 16:12 ABG pO2 88 mmHg (83-108) 09/06/19 16:12 ABG HCO3 24 mmol/L (21-25) 09/06/19 16:12 ABG Total CO2 26 mmol/L (19-24) H 09/06/19 16:12 ABG O2 Saturation 97.1 % (94-97) H 09/06/19 16:12 ABG Base Excess 0.2 mmol/L 09/06/19 16:12 Job Test Yes 09/06/19 16:12 FiO2 28 % 09/06/19 16:12 Sodium 137 mmol/L (137-145) 09/15/19 08:40 Potassium 4.4 mmol/L (3.5-5.1) 09/15/19 08:40 Chloride 101 mmol/L (98-107) 09/15/19 08:40 Carbon Dioxide 28 mmol/L (22-30) 09/15/19 08:40 Anion Gap 8 mmol/L 09/15/19 08:40 BUN 15 mg/dL (9-20) 09/15/19 08:40 Creatinine 1.75 mg/dL (0.66-1.25) H 09/15/19 08:40 Est GFR (CKD-EPI)AfAm 42 (>60 ml/min/1.73 sqM) 09/15/19 08:40 Est GFR (CKD-EPI)NonAf 37 (>60 ml/min/1.73 sqM) 09/15/19 08:40 Glucose 129 mg/dL (74-99) H 09/15/19 08:40 POC Glucose (mg/dL) 188 mg/dL (75-99) H 09/15/19 20:22 POC Glu Residential [employer]er ID [place] Du 09/15/19 20:[address] Glu mg/dL 206 09/01/19 06:30 Hemoglobin A1c 8.8 % (4.0-6.0) H 09/01/19 06:30 Lactic Ac Sepsis Rflx Y 08/31/19 02:45 Plasma Lactic Acid Riley 0.7 mmol/L (0.7-2.0) 09/06/19 16:44 Calcium 9.2 mg/dL (8.4-10.2) 09/15/19 08:40 Total Bilirubin 0.4 mg/dL (0.2-1.3) 09/09/19 06:50 AST 15 U/L (17-59) L 09/09/19 06:50 ALT 8 U/L (21-72) L 09/09/19 06:50 Alkaline Phosphatase 74 U/L (38-126) 09/09/19 06:50 Troponin I 0.018 ng/mL (0.000-0.034) 08/31/19 01:55 Total Protein 5.5 g/dL (6.3-8.2) L 09/09/19 06:50 Albumin 2.5 g/dL (3.5-5.0) L 09/09/19 06:50 Urine Color Yellow 08/31/19 02:48 Urine Appearance Cloudy (Clear) 08/31/19 02:48 Urine pH 5.5 (5.0-8.0) 08/31/19 02:48 Ur Specific [place] 1.015 (1.001-1.035) 08/31/19 02:48 Urine Protein 1+ (Negative) H 08/31/19 02:48 Urine Glucose (UA) 2+ (Negative) H 08/31/19 02:48 Urine Ketones Negative (Negative) 08/31/19 02:48 Urine Blood Trace (Negative) H 08/31/19 02:48 Urine Nitrite Negative (Negative) 08/31/19 02:48 Urine Bilirubin Negative (Negative) 08/31/19 02:48 Urine Urobilinogen <2.0 mg/dL (<2.0) 08/31/19 02:48 Ur Leukocyte Esterase Large (Negative) H 08/31/19 02:48 Urine RBC 2 /hpf (0-5) 08/31/19 02:48 Urine WBC 176 /hpf (0-5) H 08/31/19 02:48 Urine WBC Clumps Many /hpf (None) H 08/31/19 02:48 Ur Squamous Epith Cells <1 /hpf (0-4) 08/31/19 02:48 Urine Bacteria Rare /hpf (None) H 08/31/19 02:48 Hyaline Casts 3 /lpf (0-2) H 08/31/19 02:48 Urine Mucus Rare /hpf (None) H 08/31/19 02:48 Urine Yeast (Budding) Few /hpf (None) H 08/31/19 02:48 Gentamicin Peak 5.0 ug/mL 09/09/19 09:32 Gentamicin Trough 1.4 ug/mL 09/11/19 13:01 Vancomycin Trough 14.9 ug/mL 09/05/19 06:35 Influenza Type A RNA Not Detected (Not Detectd) 08/31/19 01:55 Influenza Type B (PCR) Not Detected (Not Detectd) 08/31/19 01:55 Microbiology 09/13/19 07:00 Blood Blood Culture Gram Stain - Preliminary 09/13/19 07:00 Blood Blood Culture - Preliminary Presumptive MRSA 09/14/19 06:51 Blood Blood Culture - Preliminary No Growth after 24 hours 09/13/19 07:18 Blood Blood Culture Gram Stain - Preliminary 09/13/19 07:18 Blood Blood Culture - Preliminary Staphylococcus aureus 09/13/19 07:00 Blood Blood Culture - Final 09/13/19 07:18 Blood Blood Culture - Final 09/10/19 06:29 Blood Blood Culture Gram Stain - Final 09/10/19 06:29 Blood Blood Culture - Final Methicillin resist S. aureus 09/09/19 06:50 Blood Blood Culture Gram Stain - Final 09/09/19 06:50 Blood Blood Culture - Final Methicillin resist S. aureus 09/10/19 06:29 Blood Blood Culture - Final 09/08/19 08:00 Blood Blood Culture Gram Stain - Final 09/08/19 08:00 Blood Blood Culture - Final Methicillin resist S. aureus 09/09/19 06:50 Blood Blood Culture - Final 09/07/19 06:28 Blood Blood Culture Gram Stain - Final 09/07/19 06:28 Blood Blood Culture - Final Methicillin resist S. aureus 09/08/19 08:00 Blood Blood Culture - Final 09/06/19 07:19 Blood Blood Culture Gram Stain - Final 09/06/19 07:19 Blood Blood Culture - Final Methicillin resist S. aureus 09/07/19 06:28 Blood Blood Culture - Final 09/06/19 07:19 Blood Blood Culture - Final 09/04/19 05:54 Blood Blood Culture Gram Stain - Final 09/04/19 05:54 Blood Blood Culture - Final Methicillin resist S. aureus 09/03/19 06:39 Blood Blood Culture Gram Stain - Final 09/03/19 06:39 Blood Blood Culture - Final Methicillin resist S. aureus 08/31/19 02:48 Urine,Clean Catch Urine Culture - Final Summer glabrata 08/31/19 22:29 Blood Blood Culture Gram Stain - Final 08/31/19 22:29 Blood Blood Culture - Final Methicillin resist S. aureus 08/31/19 22:03 Blood Blood Culture Gram Stain - Final 08/31/19 22:03 Blood Blood Culture - Final Methicillin resist S. aureus 09/04/19 05:54 Blood Blood Culture - Final 09/03/19 06:39 Blood Blood Culture - Final 08/31/19 01:55 Blood Blood Culture Gram Stain - Final 08/31/19 01:55 Blood Blood Culture - Final Methicillin resist S. aureus 08/31/19 22:03 Blood Blood Culture - Final 08/31/19 22:29 Blood Blood Culture - Final 08/31/19 01:55 Blood Blood Culture - Final Assessment and Plan (1) Bacteremia Narrative/Plan: 79-year-old male who has a history of diabetes, Parkinson's disease and history of bladder cancer that has been treated with surgical intervention as well as intravesicular treatment. He now presents with a worsening of his status showing evidence of a high-grade fever, leukocytosis, elevated lactic acid which are all consistent with recurrent sepsis from urinary system in this debilitated gentleman. Antibiotic therapy was begun with vancomycin based on his recent urine cultures that showed evidence of MRSA and enterococcus that was not vancomycin resistant. There is evidence of the positive blood culture with gram-positive cocci. The patient has had an echocardiogram done earlier this year without evidence of any severe valvular disease. At this time with continued vancomycin therapy. Will request follow blood cultures to be performed to evaluate clearance of bacteremia with treatment of antibiotic therapy. With the development of bacteremia will need outpatient intravenous antibiotic therapy. The lower extremities evidence of chronic edema but there does not appear to be any open ulcerations or cellulitis, local care with elevation and compression stockings could be helpful. 09/02/2019 patient is bit stronger, but has evidence of ongoing positive blood cultures. Conservatively to urinary source and ultrasound of the kidneys has been requested to evaluate for any type of obstruction problem or renal abscess. Also perinephric abscess. By November vancomycin continues. We'll follow blood cultures again tomorrow to see be certain occurs bacteremia with therapy. He 15 feels slightly better but still has ongoing acute illness at this time. 09/05/2019 the patient remains chronically ill feeling somewhat poorly. He is having improvement of his fever but there remains ongoing positive blood cu ltures. With this we'll transition vancomycin to daptomycin and high-dose. We'll monitor a weekly CK level. Once we have clearance of his bacteremia will need some type of IV access to allow treatment post hospital stay. The etiology of the ongoing bacteremia could be the clots within the left atrium and may require a longer time for clearance of his bacteremia. There is no evidence of any urinary source as noted by the relatively normal renal ultrasound. Patient does feel somewhat better than admission and hopefully be able to start with the discharge plan. 09/06/2019 the patient had SAL performed that shows evidence of the left atrial clot in this is the likely etiology of his persistent bacteremia. Antibiotic therapy was altered yesterday to high-dose daptomycin with evidence of v ancomycin failure. We'll continue to monitor and follow blood cultures are reportedly been performed. The patient however is much more sedated today. He has not really arousing very well. Concerns are brought to the nurse to contact the hospitalist to ensure that this has not been a significant change of his status which is concerning because of his persistent bacteremia and left atrial clot. 09/07/2019 the patient remains significantly ill with ongoing bacteremia, ongoing altered mentation but is hematologically stable. Antibiotic therapy continues with daptomycin which was just changed and will add a few doses of gentamicin to try to clear the bacteremia. It appears that the clot in the left atrium is the nidus for the current and ongoing bacteremia. His prognosis is poor and appropriately has been made no code at this point in time. If bacteremia clears he will then require 6 weeks of intravenous antibiotic therapy and rehab facility. 09/09/2019 the patient has some improvement of his status today. His mentation is definitely improved since his last evaluation. However he continues evidence of positive blood cultures. Antibiotic therapy is ready been transitioned from vancomycin to high-dose daptomycin. Despite this there are still some positive blood cultures. Gentamicin was added but he with this there appears to be some positive blood cultures. We'll add Rocephin and attempt for further synergistic bacteriocidal effect the try to clear his bacteremia. He is on Sinemet and is not a candidate for Zyvox therapy. The patient fortunately is feeling somewhat better, has no fever and leukocytosis is improved over time. Follow cultures are being followed. 09/11/2019 the patient is with some further improvement today. He was up with a walker transferring from the bed to chair. He was generally unassisted except with a walker. He is feeling slightly better. Still feels quite poorly overall. We discussed the ongoing bacteremia despite the combination of antibiotics at this time. So far he has failed vancomycin, combination of vancomycin and gentamicin, accommodation of daptomycin and gentamicin, Rocephin was also added to a combination of try to further obtain some synergy which has not been effective. The daptomycin will be transitioned to linezolide, the staff is instructed about the importance of following his blood pressure should be monitored through his infusion. Interaction is possible because of the medications but with his failure of all attempts so far is required at this time. The 09/12/2019 the patient is a bit sleepy today but continues to have some improvement. He has noted the patient has ongoing bacteremia on the basis of his left atrial appendage clot that is infected with MRSA. Multiple antibiotic regimens have been tried. He has now been placed on Zyvox were awaiting some follow-up blood cultures to see if this will allow clearance of his bacteremia that was not clear despite combination of multiple prior antibiotics. Patient does seem to be stable and feeling slightly better. She's had no toxicity from the addition of the Zyvox. 09/13/2019 the patient is more awake and interactive today. Evidence of his chronic pain he is doing a bit better today appetite is fair. Nursing staff relates in no acute issues. Follow blood cultures are process and so far her negative however there just several hours old. Hopefully with the current change of antibiotic therapy to Zyvox to have clearance of his persistent bacteremia from the left atrial clot. 09/14/2019 patient seems to be in better spirits today. Seems to be feeling better and is having a visit with his . Silvadene very well and patient's is encouraged to bring some food from home which may stimulate his appetite. Blood culture has now turned positive again for what appears to be staph. However it considerably longer for this blood culture did become positive hopefully signaling that the bacteremia will be responding to the current antibiotic therapy changed to Zyvox. This will continue with follow blood cultures are again requested. Zyvox continues. His acute kidney injury is being monitored. He is receiving his anticoagulation regarding the left atrial clot it appears to be the focus of his ongoing bacteremia. 09/15/2019 the blood culture has again become positive but it has taken nearly 48 hours to become positive which is the longest lag time we've had so far and blood cultures becoming positive. We'll continue Zyvox and follow cultures are process which will hopefully be negative and allow the discharge plan to proceed with his many weeks of Zyvox will be planned. He is definitely feeling better at this time. Current Visit: Yes Status: Acute Code(s): R78.81 - BACTEREMIA SNOMED Code(s): 0588403 (2) Urinary tract infection Current Visit: Yes Status: Acute Code(s): N39.0 - URINARY TRACT INFECTION, SITE NOT SPECIFIED SNOMED Code(s): 01981699 (3) Leukocytosis Current Visit: Yes Status: Acute Code(s): D72.829 - ELEVATED WHITE BLOOD CELL COUNT, UNSPECIFIED SNOMED Code(s): 419221374 (4) Acute sepsis Current Visit: Yes Status: Acute Code(s): A41.9 - SEPSIS, UNSPECIFIED ORGANISM SNOMED Code(s): 18794656
[2019-09-16] MEDS: LEVOTHYROXINE 100 MCG TAB PO SCH (05:27)
[2019-09-16 07:07] LABS: Glucose,Whole Blood 108 mg/dL (75-99)
[2019-09-16 07:26] LABS: Calcium 9.2 mg/dL (8.4-10.2); Potassium 4.5 mmol/L (3.5-5.1)
[2019-09-16] MEDS: INSULIN ASPART (NovoLOG) 100 UNIT/ML VIAL SQ SCH ×4 (08:42→20:38)
[2019-09-16] MEDS: amLODIPine 10 MG TAB PO SCH (08:47)
[2019-09-16] MEDS: APIXABAN 5 MG TAB PO SCH ×2 (08:47→20:34)
[2019-09-16] MEDS: CARBIDOPA-LEVODOPA 25-100 MG 1 EACH TAB PO SCH ×3 (08:47→20:35)
[2019-09-16] MEDS: ERGOCALCIFEROL 50,000 UNIT CAP PO SCH (08:47)
[2019-09-16] MEDS: METOPROLOL TARTRATE 25 MG TAB PO SCH ×2 (08:47→20:34)
[2019-09-16] MEDS: LISINOPRIL 20 MG TAB PO SCH (08:47)
[2019-09-16] MEDS: ALLOPURINOL 100 MG TAB PO SCH (08:47)
[2019-09-16] MEDS: LINEZOLID 600 MG in DEXTROSE/WATER 1 300ML.BAG IVPB SCH ×2 (09:20→20:36)
[2019-09-16 11:55] LABS: Glucose,Whole Blood 144 mg/dL (75-99)
[2019-09-16 16:53] LABS: Glucose,Whole Blood 153 mg/dL (75-99)
[2019-09-16 20:17] LABS: Glucose,Whole Blood 180 mg/dL (75-99)
[2019-09-16] MEDS: INSULIN DETEMIR (LEVEMIR) 100 UNIT/ML SYR SQ SCH (20:37)
--- NOTE | 2019-09-17 05:38 | P.PN ---
Subjective Progress Note Date: 09/16/19 Principal diagnosis: 73-year-old male came in because of possible Infection as patient felt quite weak and lethargic found to have high-grade fever found to be septic with the lactic acidosis. Patient does take Lasix at home regimen of history of congestive heart failure. Patient does have Parkinson's and is on carbidopa levodopa for that. Patient lowered himself to Because of Generalized Weakness. Patient Chest X-Ray Did Not Show Pneumonia but Urine Is Significant Abnormality Patient Does Have History of UTI in the past Patient Has Enterococcus Which Is Resistant to Penicillin but Sensitive to Vancomycin. Patient Also Had MRSA UTI in the past. Urine Cultures Blood Cultures Were Obtained. 09/01/2019 Patient is lying in bed in no acute distress with no acute overnight issues. Patient states that he continues to feel weak and has been working with PT/OT. Infectious disease is following. Patient's blood cultures have resulted with presumptive MRSA and repeat blood cultures are pending at this time. Patient is currently on IV antibiotics in the form of ceftriaxone and vancomycin and will continue at this time. Patient denies any chest pain, shortness of breath, or palpitations. Patient has been afebrile. Patient denies any nausea or vomiting and is tolerating diet. Patient states that he has been falling more frequently at home in case management and social work are following for discharge planning as the patient may require rehab upon discharge. Will continue to monitor closely. 09/02/2019 Patient is lying in bed in no acute distress with no acute overnight issues. Repeat blood cultures have shown presumptive MRSA. Infectious disease is f ollowing. Patient is having some right knee pain an x-ray was done showing no fracture nor dislocation and joint spaces are normal with no signs of joint effusion. Patient is currently on IV antibiotics in the form of vancomycin and will continue at this time. Patient is on gentle IV hydration at 75mL/hr his creatinine is improving and is currently 1.56. White blood count is trending down and is currently 11.3. Will repeat a.m. labs. Cardiology is consulted and is pending at this time. Will continue to monitor vital signs and labs closely. 09/03/2019 Patient had persistent bacteremia will obtain ultrasound of the kidney to rule out any perinephric abscess along with the possible endocarditis. Patient is feeling a bit better today. Afebrile. 09/04/2019 Blood cultures from yesterday were negative. Patient will undergo SAL tomorrow ultrasound of the kidney did not show any perinephric abscess. Patient is feeling a little stronger today Constitutional: Denied any fatigue denied any fever. Cardio vascular: denied any chest pain, palpitations Gastrointestinal denied any nausea vomiting Pulmonary: Denied any shortness of breath cough Neurologic denied any new focal deficits 09/05/2019 Patient is lying in bed in no acute distress with no acute overnight issues. Patient is to undergo a SAL today around noon. Will await report. Patient is quite lethargic and continues to fall in and out of sleep while conversing. Currently patient denies any chest pain, shortness of breath, or palpitations. Patient is afebrile. Patient denies any nausea or vomiting and has been bryon erating diet. Patient states he is tired today. Blood cultures from yesterday have a preliminary reading of gram-positive cocci. Infectious disease is following. Will continue to monitor closely. 09/06/2019 Patient is sitting up in the chair in no acute distress with no acute overnight issues. Cardiology and infectious disease are following. Patient underwent a SAL yesterday showing no definite evidence of vegetations on the aortic valve and no vegetation noted on the mitral or tricuspid valves but did have a thrombus in the left atrial appendage that is about 1 cm in size. LV systolic function is normal and interatrial septum is intact. Patient was started on Eliquis and will continue at this time. Patient's blood cultures continue to show MRSA and will repeat blood cultures daily to monitor closely. Patient is currently on IV antibiotics in the form of daptomycin and will continue at this time. Vancomycin was discontinued. Currently patient denies any chest pain, shortness of breath, or palpitations. Patient has been afebrile. Patient denies any nausea or vomiting and has been tolerating diet. Patient States that he is urinating well with no issues but has not had a bowel movement in 3 days. Dulcolax was ordered. 09/07/2019 Patient is sitting up in the chair in no acute distress with no acute overnight issues. Family is at the bedside. Discussed with the family and patient at length today about CODE STATUS and patient's wishes are to be made a no code as he states "he does not want to be a vegetable something were to happen." Patient is much more awake and alert today and is sitting up having full conversation. Patient denies any chest pain, shortness of breath, or palpitations. Patient is afebrile. She denies any nausea or vomiting and is tolerating diet. Patient's repeat blood cultures continue to be positive and are showing gram-positive cocci. Patient continues to have elevated blood pressure and Norvasc 10 mg will be added today. Will continue to monitor closely. Patient is currently on IV antibiotics in the form of daptomycin and will continue at this time. Infectious disease is following. 09/08/2019 patient's last blood cultures that was positive at from of this month. Patient is still lethargic 09/09/2019 Patient remained is lethargic no significant change in his clinical condition patient is bit hypoglycemic today discontinue the pre-meal insulin will discontinue sliding scale insulin will cut down the Lantus dose. Patient blood cultures from are clear. Last positive blood cultures from the Nov ember Mr. Peterson is a 73-year-old male with chronic medical conditions including atrial flutter, congestive heart failure, COPD, diverticulitis, hypertension, thyroid disorder, bladder cancer coming into the hospital for fevers and lethargy. The workup for his fever with showed left atrial thrombus. And his blood cultures have been continuously positive for MRSA. Patient is currently on IV daptomycin , gentamicin and ceftriaxone as per DORETHA Childs recommendations. On 09/10/2019- as per the nursing staff report patient is more alert compared to yesterday. He complains of fatigue. Denies having any chest pain or difficulty in breathing. No cough. Denies having any fevers chills or rigors. No abdominal pain nausea vomiting or diarrhea. No dysuria or hematuria. His blood cultures from the are still positive for MRSA. On 09/11/2019 - as per the nursing staff report no acute events reported overnight. Patient is sitting up in a chair by the bedside. He is much more alert and awake compared to yesterday. Patient denies having any chest pain or palpitations. No cough or difficulty in breathing. No fevers chills or rigors. He mentions that his lower extremity edema is still there and he has been dealing with for a long time. Patient's blood cultures from of still positive for MRSA. ID Dr. Childs on board he change daptomycin to linezolid. oN 09/12/19 - Patient is lying in bed appears to be in no acute distress. Patient complains of generalized fatigue and weakness. Denies having any chest pain or palpitations. No weakness of his extremities. No fevers chills or rigors. No cough or difficulty breathing. On reviewing the labs patient's blood cultures from have been still positive for MRSA. He is currently on linezolid and ceftriaxone. 09/13/2019 Patient is sitting up in bed sleeping but easily arousable in no acute distress. No Acute overnight issues. Patient continues to have fatigue and weakness but is arousable. Patient able to answer questions and commands appropriately once a week. Currently patient denies any chest pain, shortness of breath, or palpitations. Patient is afebrile. Patient denies any nausea or vomiting and is tolerating diet. Infectious disease is following closely. Patient was recently transitioned to IV antibiotics in the form of Zyvox along with ceftriaxone. Most recent blood cultures continue to show positive for MRSA. Will await most recent blood culture repeats. 09/14/2019 Patient is sitting up in the bed in no acute distress. Repeat blood cultures preliminary showing gram-positive cocci. No acute overnight issues. Infectious disease is following closely. REVIEW OF SYSTEMS: Cardiovascular: No reports of chest pain or palpitations Respiratory: No reports of shortness of breath or cough Musculoskeletal: Reports of chronic back pain GI: No reports of nausea, vomiting, or diarrhea : No reports of dysuria or retention 09/15/2019 Patient is sitting up in the chair with no acute overnight issues. Repeat blood cultures from 09/13/2019 are showing Staphylococcus aureus. Will await for finalization. Infectious disease is following. Creatinine is slightly elevated at 1.75. Will repeat a.m. labs. 09/16/2019 Patient is sitting up in the chair in no acute distress. Denies any acute overnight issues. Repeat blood cultures from 09/13/2019 have finalized showing MRSA. Continued repeat cultures from 09/14 and 09/15 thus far have been negative. Creatinine today is 2.28. Will continue to closely monitor and repeat labs in the morning. Objective - Vital Signs Vital signs: Vital Signs Temp 98.1 F 09/17/19 01:55 Pulse 62 09/17/19 01:55 Resp 16 09/17/19 01:55 BP 132/102 09/17/19 01:55 Pulse Ox 93 L 09/17/19 01:55 Intake & Output 09/16/19 09/16/19 09/17/19 06:59 18:59 06:59 Intake Total 300 120 Output Total 375 Balance 300 -255 Weight 108 kg Intake: Intake, IV Titration 300 Amount Linezolid 600 mg In 300 Dextrose/Water 1 300ml. bag @ 150 mls/hr IVPB Q12HR UMAIR Rx#:[id number] Oral 120 Output: Urine 375 Other: Voiding Method Urinal Urinal Diaper # Voids 2 1 - Exam GENERAL: The patient is alert and oriented x3. Well developed, well nourished. Patient is awake and appears in no acute distress. HEENT: Pupils are round and equally reacting to light. EOMI. No scleral icterus. No conjunctival pallor. Normocephalic, atraumatic. No pharyngeal erythema. No thyromegaly. CARDIOVASCULAR: S1 and S2 present. No murmurs, rubs, or gallops. PULMONARY: Chest is clear to auscultation, no wheezing or crackles. ABDOMEN: Soft, non-tender, non-distended, normoactive bowel sounds. No palpable organomegaly. MUSCULOSKELETAL: No joint swelling or deformity. EXTREMITIES: No cyanosis, clubbing, bilateral lower extremity and pedal edema noted. NEUROLOGICAL: Gross neurological examination did not reveal any focal deficits. SKIN: No rashes. No open ulcerations or lesions noted - Labs CBC & Chem 7: 09/14/19 06:51 09/16/19 06:27 Labs: Abnormal Lab Results - Last 24 Hours (Table) 09/16/19 09/16/19 09/16/19 Range/Units 06:27 07:05 11:53 Creatinine 2.28 H (0.66-1.25) mg/dL Glucose 108 H (74-99) mg/dL POC Glucose (mg/dL) 108 H 144 H (75-99) mg/dL 09/16/19 09/16/19 Range/Units 16:50 20:15 Creatinine (0.66-1.25) mg/dL Glucose (74-99) mg/dL POC Glucose (mg/dL) 153 H 180 H (75-99) mg/dL Microbiology - Last 24 Hours (Table) 09/13/19 07:00 Blood Culture Gram Stain - Final Blood Blood Culture - Final Methicillin resist S. aureus 09/13/19 07:18 Blood Culture Gram Stain - Final Blood Blood Culture - Final Methicillin resist S. aureus 09/15/19 08:22 Blood Culture - Preliminary Blood No Growth after 24 hours 09/15/19 07:40 Blood Culture - Preliminary Blood No Growth after 24 hours 09/14/19 06:51 Blood Culture - Preliminary Blood No Growth after 48 hours Assessment and Plan Assessment: -Severe sepsis secondary to urinary tract infection Repeat blood cultures thus far from 09/14 and 09/15 have been negative. Patient's IV antibiotics have been switched to Zyvox and ceftriaxone. Will continue with daily blood cultures. Infectious disease is following. -Extensive venous stasis dermatosis and bilateral pedal edema from venous stasis dermatosis Lasix will be held temporarily because of sepsis. -Type 2 diabetes mellitus, uncontrolled -Generalized weakness secondary to sepsis -Hypertension -Parkinson's -Hypothyroidism -COPD without any acute exacerbation -Acute kidney injury: From sepsis and Lasix is contributing to his acute renal failure -Chronic kidney disease stage 2-3 -Diabetic peripheral neuropathy. Recommendations and discussion: Recommend to continue current medications, management, and symptomatic treatment. Infectious disease is following. Patient will continue on IV antibiotics in the form of Zyvox and ceftriaxone at this time. Repeat blood culture negative from 09/14 and 09/15. Will await finalization of cultures. Will continue with daily draws. Will repeat am labs and monitor creatinine closely as it is elevated at 2.28. Will continue to monitor closely. Case management and social security assessor following as well for possible placement once patient is disch arged. Patient will likely need IV antibiotics as well as continue PT/OT therapy for strength and mobility. Further recommendations to follow.
[2019-09-17] MEDS: LEVOTHYROXINE 100 MCG TAB PO SCH (05:49)
[2019-09-17] MEDS: SODIUM CHLORIDE 0.9% 1,000 ML IV SCH (05:49)
[2019-09-17 07:00] LABS: Glucose,Whole Blood 107 mg/dL (75-99)
[2019-09-17 07:04] LABS: Calcium 9.3 mg/dL (8.4-10.2); Potassium 4.6 mmol/L (3.5-5.1)
[2019-09-17] MEDS: INSULIN ASPART (NovoLOG) 100 UNIT/ML VIAL SQ SCH ×4 (07:37→21:06)
[2019-09-17] MEDS: METOPROLOL TARTRATE 25 MG TAB PO SCH ×2 (08:08→21:06)
[2019-09-17] MEDS: LINEZOLID 600 MG in DEXTROSE/WATER 1 300ML.BAG IVPB SCH ×2 (08:08→21:06)
[2019-09-17] MEDS: APIXABAN 5 MG TAB PO SCH ×2 (08:08→21:06)
[2019-09-17] MEDS: CARBIDOPA-LEVODOPA 25-100 MG 1 EACH TAB PO SCH ×3 (08:08→21:06)
[2019-09-17] MEDS: ALLOPURINOL 100 MG TAB PO SCH (08:08)
[2019-09-17] MEDS: amLODIPine 10 MG TAB PO SCH (08:09)
[2019-09-17] MEDS: LISINOPRIL 20 MG TAB PO SCH (08:09)
[2019-09-17 12:03] LABS: Glucose,Whole Blood 168 mg/dL (75-99)
--- NOTE | 2019-09-17 14:05 | P.PN ---
Subjective Progress Note Date: 09/17/19 79-year-old male who lives in the family home with his spouse and grandchildren relates that he's been feeling poorly for a few days. He became very weak and actually lowered himself to the ground because he was so weak. EMS was called and he was brought to hospital. He was on evidence of a fever as well as leukocytosis and feeling quite poorly. Patient has a long-standing history of Parkinson's and is a limited historian. He denies severe pain at this time. 09/02/2019 patient remains a poor historian but he is a bit stronger and may have sitting up in the chair. He has no significant complaints. 09/05/2019 patient remains fatigued and feels ill but has been able to sit up in a chair, denies fevers or chills. SAL has now been performed. September 06 2019 the patient is sleepy and difficult to arouse this afternoon. His untouched lunch is next to him. His status is discussed with the nurse. He has been quite sleepy through the morning into the early afternoon. She will reassess if he does awaken make sure there some assistance in eating his meal. 09/07/2019 patient continues to be with ongoing sepsis and ongoing bacteremia despite antibiotic therapy and change of antibiotic therapy daptomycin. He is still very weak and ill which is quite different from his baseline. Discussion occurred with the primary care team yesterday. And the patient is now been appropriate and made no code is receiving ongoing aggressive interventions. September 10 the patient is more awake alert and interactive today. He seems to be modestly comfortable in is not complaining of severe pain. Laboratories reviewed he has evidence of ongoing bacteremia. Sep feels better was able to transfer to the chair unassisted except walker. no fevers feels poorly overall 09/12/2019 patient is fatigued today but no new acute troubles, appetite is adequate. 09/13/2019 the patient is more awake alert and interactive today. He continues to have a relatively good appetite no difficulty eating his dinner. No nausea or emesis. He does have some chronic back pain that is not acutely worse. 09/14/2019 patient sitting up in the chair and his is visiting. He is a bit more awake alert and interactive than he has been. He exhibits a mild sense of humor. Patient's is pleased but is concerned that he is not eating well. 09/15/2019 Patient is again showing some improvement today. He is up in the chair he is eating his lunch without difficulty and voices no severe discomfort. He is uncomfortable but is wondering when he will be well enough to be able to leave hospital. We discussed that he continues having ongoing bacteremic infection related to the left atrial clot that is infected. The cardiovascular team does not believe that they can remove the clot. 09/16/2019 the patient is feeling again better today. Sitting upright eating his meals as a brighter affect. Looking for to transitioning out of the hospital so that he can gain some strength. He is having no fevers or chills. No difficulty with current antibiotic therapy. Objective - Vital Signs Vital signs: Vital Signs Temp 97.6 F 09/17/19 07:00 Pulse 79 09/17/19 08:11 Resp 12 09/17/19 08:11 BP 132/70 09/17/19 07:00 Pulse Ox 95 09/17/19 07:00 Intake & Output 09/16/19 09/17/19 09/17/19 18:59 06:59 18:59 Intake Total 420 Output Total 375 Balance 45 Intake: Intake, IV Titration 200 Amount Sodium Chloride 0.9% 1, 200 000 ml @ 50 mls/hr IV . Q20H [facility] Rx#:[id number] Oral 220 Output: Urine 375 Other: Voiding Method Urinal Urinal Diaper Incontinent # Voids 1 3 - Exam 79-year-old male who seems to be comfortable, visiting with his HEENT: Anicteric conjunctiva are pink and moist nasal mucosa grossly intact without significant lesions, there is no thrush. Has dentures Neck: The neck is supple without significant lymphadenopathy or thyromegaly. Lungs: There is symmetrical bilateral air entry with few crackles at the bases no significant wheezing Heart: Irregular with a soft S4. No murmur click or rub Abdomen: Mildly obese, Positive bowel sounds soft and nontender without palpable masses or organomegaly. There was no guarding or rebound. Extremities: The upper extremities have excellent pulses they are symmetric, no significant petechiae or telangiectasia. No splinter hemorrhages were noted. Lower extremities have evidence of extensive bilateral lower extremity edema, skin is thickened toenails are untrimmed no open ulcerations are seen Neuro: Patient is much more awake alert and interactive today. Up in the chair. - Labs CBC & Chem 7: 09/14/19 06:51 09/17/19 06:08 Labs: Abnormal Lab Results - Last 24 Hours (Table) 09/16/19 09/16/19 09/17/19 Range/Units 16:50 20:15 06:08 Carbon Dioxide 32 H (22-30) mmol/L Creatinine 2.51 H (0.66-1.25) mg/dL Glucose 111 H (74-99) mg/dL POC Glucose (mg/dL) 153 H 180 H (75-99) mg/dL 09/17/19 09/17/19 Range/Units 06:57 11:52 Carbon Dioxide (22-30) mmol/L Creatinine (0.66-1.25) mg/dL Glucose (74-99) mg/dL POC Glucose (mg/dL) 107 H 168 H (75-99) mg/dL Microbiology - Last 24 Hours (Table) 09/15/19 08:22 Blood Culture - Preliminary Blood No Growth after 48 hours 09/15/19 07:40 Blood Culture - Preliminary Blood No Growth after 48 hours 09/14/19 06:51 Blood Culture - Preliminary Blood No Growth after 72 hours 09/13/19 07:00 Blood Culture Gram Stain - Final Blood Blood Culture - Final Methicillin resist S. aureus 09/13/19 07:18 Blood Culture Gram Stain - Final Blood Blood Culture - Final Methicillin resist S. aureus Laboratory Results WBC 8.0 k/uL (3.8-10.6) 09/14/19 06:51 RBC 3.74 m/uL (4.30-5.90) L 09/14/19 06:51 Hgb 11.2 gm/dL (13.0-17.5) L 09/14/19 06:51 Hct 34.6 % (39.0-53.0) L 09/14/19 06:51 MCV 92.7 fL (80.0-100.0) 09/14/19 06:51 MCH 30.0 pg (25.0-35.0) 09/14/19 06:51 MCHC 32.4 g/dL (31.0-37.0) 09/14/19 06:51 RDW 13.2 % (11.5-15.5) 09/14/19 06:51 Plt Count 420 k/uL (150-450) 09/14/19 06:51 Neutrophils % 67 % 09/14/19 06:51 Lymphocytes % 22 % 09/14/19 06:51 Monocytes % 7 % 09/14/19 06:51 Eosinophils % 2 % 09/14/19 06:51 Basophils % 0 % 09/14/19 06:51 Neutrophils # 5.4 k/uL (1.3-7.7) 09/14/19 06:51 Lymphocytes # 1.7 k/uL (1.0-4.8) 09/14/19 06:51 Monocytes # 0.6 k/uL (0-1.0) 09/14/19 06:51 Eosinophils # 0.2 k/uL (0-0.7) 09/14/19 06:51 Basophils # 0.0 k/uL (0-0.2) 09/14/19 06:51 PT 10.4 sec (9.0-12.0) 08/31/19 01:55 INR 1.0 (<1.2) 08/31/19 01:55 APTT 22.1 sec (22.0-30.0) 08/31/19 01:55 Sample Site rrad 09/06/19 16:12 ABG pH 7.43 (7.35-7.45) 09/06/19 16:12 ABG pCO2 37 mmHg (35-45) 09/06/19 16:12 ABG pO2 88 mmHg (83-108) 09/06/19 16:12 ABG HCO3 24 mmol/L (21-25) 09/06/19 16:12 ABG Total CO2 26 mmol/L (19-24) H 09/06/19 16:12 ABG O2 Saturation 97.1 % (94-97) H 09/06/19 16:12 ABG Base Excess 0.2 mmol/L 09/06/19 16:12 Job Test Yes 09/06/19 16:12 FiO2 28 % 09/06/19 16:12 Sodium 137 mmol/L (137-145) 09/17/19 06:08 Potassium 4.6 mmol/L (3.5-5.1) 09/17/19 06:08 Chloride 98 mmol/L (98-107) 09/17/19 06:08 Carbon Dioxide 32 mmol/L (22-30) H 09/17/19 06:08 Anion Gap 7 mmol/L 09/17/19 06:08 BUN 20 mg/dL (9-20) 09/17/19 06:08 Creatinine 2.51 mg/dL (0.66-1.25) H 09/17/19 06:08 Est GFR (CKD-EPI)AfAm 27 (>60 ml/min/1.73 sqM) 09/17/19 06:08 Est GFR (CKD-EPI)NonAf 24 (>60 ml/min/1.73 sqM) 09/17/19 06:08 Glucose 111 mg/dL (74-99) H 09/17/19 06:08 POC Glucose (mg/dL) 168 mg/dL (75-99) H 09/17/19 11:52 POC Glu Compensation Vice President ID Monik Nolasco 09/17/19 11:[address] Glu mg/dL 206 09/01/19 06:30 Hemoglobin A1c 8.8 % (4.0-6.0) H 09/01/19 06:30 Lactic Ac Sepsis Rflx Y 08/31/19 02:45 Plasma Lactic Acid Riley 0.7 mmol/L (0.7-2.0) 09/06/19 16:44 Calcium 9.3 mg/dL (8.4-10.2) 09/17/19 06:08 Total Bilirubin 0.4 mg/dL (0.2-1.3) 09/09/19 06:50 AST 15 U/L (17-59) L 09/09/19 06:50 ALT 8 U/L (21-72) L 09/09/19 06:50 Alkaline Phosphatase 74 U/L (38-126) 09/09/19 06:50 Troponin I 0.018 ng/mL (0.000-0.034) 08/31/19 01:55 Total Protein 5.5 g/dL (6.3-8.2) L 09/09/19 06:50 Albumin 2.5 g/dL (3.5-5.0) L 09/09/19 06:50 Urine Color Yellow 08/31/19 02:48 Urine Appearance Cloudy (Clear) 08/31/19 02:48 Urine pH 5.5 (5.0-8.0) 08/31/19 02:48 Ur Specific [place] 1.015 (1.001-1.035) 08/31/19 02:48 Urine Protein 1+ (Negative) H 08/31/19 02:48 Urine Glucose (UA) 2+ (Negative) H 08/31/19 02:48 Urine Ketones Negative (Negative) 08/31/19 02:48 Urine Blood Trace (Negative) H 08/31/19 02:48 Urine Nitrite Negative (Negative) 08/31/19 02:48 Urine Bilirubin Negative (Negative) 08/31/19 02:48 Urine Urobilinogen <2.0 mg/dL (<2.0) 08/31/19 02:48 Ur Leukocyte Esterase Large (Negative) H 08/31/19 02:48 Urine RBC 2 /hpf (0-5) 08/31/19 02:48 Urine WBC 176 /hpf (0-5) H 08/31/19 02:48 Urine WBC Clumps Many /hpf (None) H 08/31/19 02:48 Ur Squamous Epith Cells <1 /hpf (0-4) 08/31/19 02:48 Urine Bacteria Rare /hpf (None) H 08/31/19 02:48 Hyaline Casts 3 /lpf (0-2) H 08/31/19 02:48 Urine Mucus Rare /hpf (None) H 08/31/19 02:48 Urine Yeast (Budding) Few /hpf (None) H 08/31/19 02:48 Gentamicin Peak 5.0 ug/mL 09/09/19 09:32 Gentamicin Trough 1.4 ug/mL 09/11/19 13:01 Vancomycin Trough 14.9 ug/mL 09/05/19 06:35 Influenza Type A RNA Not Detected (Not Detectd) 08/31/19 01:55 Influenza Type B (PCR) Not Detected (Not Detectd) 08/31/19 01:55 Microbiology 09/15/19 08:22 Blood Blood Culture - Preliminary No Growth after 48 hours 09/15/19 07:40 Blood Blood Culture - Preliminary No Growth after 48 hours 09/14/19 06:51 Blood Blood Culture - Preliminary No Growth after 72 hours 09/13/19 07:00 Blood Blood Culture Gram Stain - Final 09/13/19 07:00 Blood Blood Culture - Final Methicillin resist S. aureus 09/13/19 07:18 Blood Blood Culture Gram Stain - Final 09/13/19 07:18 Blood Blood Culture - Final Methicillin resist S. aureus 09/13/19 07:00 Blood Blood Culture - Final 09/13/19 07:18 Blood Blood Culture - Final 09/10/19 06:29 Blood Blood Culture Gram Stain - Final 09/10/19 06:29 Blood Blood Culture - Final Methicillin resist S. aureus 09/09/19 06:50 Blood Blood Culture Gram Stain - Final 09/09/19 06:50 Blood Blood Culture - Final Methicillin resist S. aureus 09/10/19 06:29 Blood Blood Culture - Final 09/08/19 08:00 Blood Blood Culture Gram Stain - Final 09/08/19 08:00 Blood Blood Culture - Final Methicillin resist S. aureus 09/09/19 06:50 Blood Blood Culture - Final 09/07/19 06:28 Blood Blood Culture Gram Stain - Final 09/07/19 06:28 Blood Blood Culture - Final Methicillin resist S. aureus 09/08/19 08:00 Blood Blood Culture - Final 09/06/19 07:19 Blood Blood Culture Gram Stain - Final 09/06/19 07:19 Blood Blood Culture - Final Methicillin resist S. aureus 09/07/19 06:28 Blood Blood Culture - Final 09/06/19 07:19 Blood Blood Culture - Final 09/04/19 05:54 Blood Blood Culture Gram Stain - Final 09/04/19 05:54 Blood Blood Culture - Final Methicillin resist S. aureus 09/03/19 06:39 Blood Blood Culture Gram Stain - Final 09/03/19 06:39 Blood Blood Culture - Final Methicillin resist S. aureus 08/31/19 02:48 Urine,Clean Catch Urine Culture - Final Summer glabrata 08/31/19 22:29 Blood Blood Culture Gram Stain - Final 08/31/19 22:29 Blood Blood Culture - Final Methicillin resist S. aureus 08/31/19 22:03 Blood Blood Culture Gram Stain - Final 08/31/19 22:03 Blood Blood Culture - Final Methicillin resist S. aureus 09/04/19 05:54 Blood Blood Culture - Final 09/03/19 06:39 Blood Blood Culture - Final 08/31/19 01:55 Blood Blood Culture Gram Stain - Final 08/31/19 01:55 Blood Blood Culture - Final Methicillin resist S. aureus 08/31/19 22:03 Blood Blood Culture - Final 08/31/19 22:29 Blood Blood Culture - Final 08/31/19 01:55 Blood Blood Culture - Final Assessment and Plan (1) Bacteremia Narrative/Plan: 79-year-old male who has a history of diabetes, Parkinson's disease and history of bladder cancer that has been treated with surgical intervention as well as intravesicular treatment. He now presents with a worsening of his status showing evidence of a high-grade fever, leukocytosis, elevated lactic acid which are all consistent with recurrent sepsis from urinary system in this debilitated gentleman. Antibiotic therapy was begun with vancomycin based on his recent urine cultures that showed evidence of MRSA and enterococcus that was not vancomycin resistant. There is evidence of the positive blood culture with gram-positive cocci. The patient has had an echocardiogram done earlier this year without evidence of any severe valvular disease. At this time with continued vancomycin therapy. Will request follow blood cultures to be performed to evaluate clearance of bacteremia with treatment of antibiotic therapy. With the development of bacteremia will need outpatient intravenous antibiotic therapy. The lower extremities evidence of chronic edema but there does not appear to be any open ulcerations or cellulitis, local care with elevation and compression stockings could be helpful. 09/02/2019 patient is bit stronger, but has evidence of ongoing positive blood cultures. Conservatively to urinary source and ultrasound of the kidneys has been requested to evaluate for any type of obstruction problem or renal abscess. Also perinephric abscess. By November vancomycin continues. We'll follow blood cultures again tomorrow to see be certain occurs bacteremia with therapy. He 15 feels slightly better but still has ongoing acute illness at this time. 09/05/2019 the patient remains chronically ill feeling somewhat poorly. He is having improvement of his fever but there remains ongoing positive blood cultures. With this we'll transition vancomycin to daptomycin and high-dose. We'll monitor a weekly CK level. Once we have clearance of his bacteremia will need some type of IV access to allow treatment post hospital stay. The etiology of the ongoing bacteremia could be the clots within the left atrium and may require a longer time for clearance of his bacteremia. There is no evidence of any urinary source as noted by the relatively normal renal ultrasound. Patient does feel somewhat better than admission and hopefully be able to start with the discharge plan. 09/06/2019 the patient had SAL performed that shows evidence of the left atrial clot in this is the likely etiology of his persistent bacteremia. Antibiotic therapy was altered yesterday to high-dose daptomycin with evidence of vancomycin failure. We'll continue to monitor and follow blood cultures are reportedly been performed. The patient however is much more sedated today. He has not really arousing very well. Concerns are brought to the nurse to contact the hospitalist to ensure that this has not been a significant change of his status which is concerning because of his persistent bacteremia and left atrial clot. 09/07/2019 the patient remains significantly ill with ongoing bacteremia, ongoing altered mentation but is hematologically stable. Antibiotic therapy continues with daptomycin which was just changed and will add a few doses of gentamicin to try to clear the bacteremia. It appears that the clot in the left atrium is the nidus for the current and ongoing bacteremia. His prognosis is poor and appropriately has been made no code at this point in time. If bacteremia clears he will then require 6 weeks of intravenous antibiotic therapy and rehab facility. 09/09/2019 the patient has some improvement of his status today. His mentation is definitely improved since his last evaluation. However he continues evidence of positive blood cultures. Antibiotic therapy is ready been transitioned from vancomycin to high-dose daptomycin. Despite this there are still some positive blood cultures. Gentamicin was added but he with this there appears to be some positive blood cultures. We'll add Rocephin and attempt for further synergistic bacteriocidal effect the try to clear his bacteremia. He is on Sinemet and is not a candidate for Zyvox therapy. The patient fortunately is feeling somewhat better, has no fever and leukocytosis is improved over time. Follow cultures are being followed. 09/11/2019 the patient is with some further improvement today. He was up with a walker transferring from the bed to chair. He was generally unassisted except with a walker. He is feeling slightly better. Still feels quite poorly o verall. We discussed the ongoing bacteremia despite the combination of antibiotics at this time. So far he has failed vancomycin, combination of vancomycin and gentamicin, accommodation of daptomycin and gentamicin, Rocephin was also added to a combination of try to further obtain some synergy which has not been effective. The daptomycin will be transitioned to linezolide, the staff is instructed about the importance of following his blood pressure should be monitored through his infusion. Interaction is possible because of the medications but with his failure of all attempts so far is required at this time. The 09/12/2019 the patient is a bit sleepy today but continues to have some imp rovement. He has noted the patient has ongoing bacteremia on the basis of his left atrial appendage clot that is infected with MRSA. Multiple antibiotic regimens have been tried. He has now been placed on Zyvox were awaiting some follow-up blood cultures to see if this will allow clearance of his bacteremia that was not clear despite combination of multiple prior antibiotics. Patient does seem to be stable and feeling slightly better. She's had no toxicity from the addition of the Zyvox. 09/13/2019 the patient is more awake and interactive today. Evidence of his chronic pain he is doing a bit better today appetite is fair. Nursing staff relates in no acute issues. Follow blood cultures are process and so far her negative however there just several hours old. Hopefully with the current change of antibiotic therapy to Zyvox to have clearance of his persistent bacteremia from the left atrial clot. 09/14/2019 patient seems to be in better spirits today. Seems to be feeling better and is having a visit with his . [place] very well and patient's is encouraged to bring some food from home which may stimulate his appetite. Blood culture has now turned positive again for what appears to be staph. However it considerably longer for this blood culture did become posi tive hopefully signaling that the bacteremia will be responding to the current antibiotic therapy changed to Zyvox. This will continue with follow blood cultures are again requested. Zyvox continues. His acute kidney injury is being monitored. He is receiving his anticoagulation regarding the left atrial clot it appears to be the focus of his ongoing bacteremia. 09/15/2019 the blood culture has again become positive but it has taken nearly 48 hours to become positive which is the longest lag time we've had so far and blood cultures becoming positive. We'll continue Zyvox and follow cultures are process which will hopefully be negative and allow the discharge plan to proceed with his many weeks of Zyvox will be planned. He is definitely feeling better at this time. 09/16/2019 the patient is doing somewhat better today. Interestingly appears there is finally evidence of clearance of his bacteremia. We have blood cultures now greater than 24 hours they remain negative for MRSA. The Zyvox therapy which has been the last series of antibiotics appears to have finally allowed clearance the bacteremia. If he's been ready for transfer to the rehab facility to ensure that they will allow Zyvox at the facility, it can be oral at 600 mg twice per day. He will receive at least 6 weeks. He'll need close cardiac follow-up given the left atrial clot. Current Visit: Yes Status: Acute Code(s): R78.81 - BACTEREMIA SNOMED Code(s): 8210268 (2) Urinary tract infection Current Visit: Yes Status: Acute Code(s): N39.0 - URINARY TRACT INFECTION, SITE NOT SPECIFIED SNOMED Code(s): 63204926 (3) Leukocytosis Current Visit: Yes Status: Acute Code(s): D72.829 - ELEVATED WHITE BLOOD CELL COUNT, UNSPECIFIED SNOMED Code(s): 196551274 (4) Acute sepsis Current Visit: Yes Status: Acute Code(s): A41.9 - SEPSIS, UNSPECIFIED ORGANISM SNOMED Code(s): 52975733
[2019-09-17 17:14] LABS: Glucose,Whole Blood 138 mg/dL (75-99)
[2019-09-17 20:18] LABS: Glucose,Whole Blood 209 mg/dL (75-99)
[2019-09-17] MEDS: INSULIN DETEMIR (LEVEMIR) 100 UNIT/ML SYR SQ SCH (21:06)
[2019-09-18] MEDS: SODIUM CHLORIDE 0.9% 1,000 ML IV SCH ×2 (04:30→21:12)
[2019-09-18] MEDS: LEVOTHYROXINE 100 MCG TAB PO SCH (05:52)
[2019-09-18 06:58] LABS: Glucose,Whole Blood 70 mg/dL (75-99)
[2019-09-18 07:29] LABS: Basophils # (A) 0.1 k/uL (0-0.2); Basophils % (A) 1 %; Eosinophils # (A) 0.1 k/uL (0-0.7); Eosinophils % (A) 1 %; HCT 36.1 % (39.0-53.0); HGB 11.8 gm/dL (13.0-17.5); Lymphocytes # (A) 2.1 k/uL (1.0-4.8); Lymphocytes % (A) 19 %; MCH 30.4 pg (25.0-35.0); MCHC 32.6 g/dL (31.0-37.0); MCV 93.3 fL (80.0-100.0); Mean Platelet Volume 8.4; Monocytes # (A) 0.8 k/uL (0-1.0); Monocytes % (A) 8 %; Neutrophils # (A) 7.5 k/uL (1.3-7.7); Neutrophils % (A) 70 %; Platelet Count 364 k/uL (150-450); RBC 3.87 m/uL (4.30-5.90); RDW 13.1 % (11.5-15.5); WBC 10.7 k/uL (3.8-10.6)
[2019-09-18 07:45] LABS: Calcium 9.4 mg/dL (8.4-10.2)
[2019-09-18 07:58] LABS: Potassium 5.1 mmol/L (3.5-5.1)
[2019-09-18] MEDS: INSULIN ASPART (NovoLOG) 100 UNIT/ML VIAL SQ SCH ×4 (09:56→21:10)
[2019-09-18] MEDS: LISINOPRIL 20 MG TAB PO SCH (09:57)
[2019-09-18] MEDS: CARBIDOPA-LEVODOPA 25-100 MG 1 EACH TAB PO SCH ×3 (09:57→21:09)
[2019-09-18] MEDS: APIXABAN 5 MG TAB PO SCH ×2 (09:57→21:10)
[2019-09-18] MEDS: ALLOPURINOL 100 MG TAB PO SCH (09:57)
[2019-09-18] MEDS: LINEZOLID 600 MG in DEXTROSE/WATER 1 300ML.BAG IVPB SCH (09:57)
[2019-09-18] MEDS: METOPROLOL TARTRATE 25 MG TAB PO SCH ×2 (09:57→21:10)
[2019-09-18] MEDS: amLODIPine 10 MG TAB PO SCH (09:57)
--- NOTE | 2019-09-18 11:37 | P.PN ---
Subjective Progress Note Date: 09/17/19 Principal diagnosis: MRSA bacteremia 73-year-old male came in because of possible Infection as patient felt quite weak and lethargic found to have high-grade fever found to be septic with the lactic acidosis. Patient does take Lasix at home regimen of history of congestive heart failure. Patient does have Parkinson's and is on carbidopa levodopa for that. Patient lowered himself to Because of Generalized Weakness. Patient Chest X-Ray Did Not Show Pneumonia but Urine Is Significant Abnormality Patient Does Have History of UTI in the past Patient Has Enterococcus Which Is Resistant to Penicillin but Sensitive to Vancomycin. Patient Also Had MRSA UTI in the past. Urine Cultures Blood Cultures Were Obtained. 09/01/2019 Patient is lying in bed in no acute distress with no acute overnight issues. Patient states that he continues to feel weak and has been working with PT/OT. Infectious disease is following. Patient's blood cultures have resulted with presumptive MRSA and repeat blood cultures are pending at this time. Patient is currently on IV antibiotics in the form of ceftriaxone and vancomycin and will continue at this time. Patient denies any chest pain, shortness of breath, or palpitations. Patient has been afebrile. Patient denies any nausea or vomiting and is tolerating diet. Patient states that he has been falling more frequently at home in case management and social work are following for discharge planning as the patient may require rehab upon discharge. Will continue to monitor closely. 09/02/2019 Patient is lying in bed in no acute distress with no acute overnight issues. Repeat blood cultures have shown presumptive MRSA. Infectious disease is following. Patient is having some right knee pain an x-ray was done showing no fracture nor dislocation and joint spaces are normal with no signs of joint effusion. Patient is currently on IV antibiotics in the form of vancomycin and will continue at this time. Patient is on gentle IV hydration at 75mL/hr his creatinine is improving and is currently 1.56. White blood count is trending down and is currently 11.3. Will repeat a.m. labs. Cardiology is consulted and is pending at this time. Will continue to monitor vital signs and labs closely. 09/03/2019 Patient had persistent bacteremia will obtain ultrasound of the kidney to rule out any perinephric abscess along with the possible endocarditis. Patient is feeling a bit better today. Afebrile. 09/04/2019 Blood cultures from yesterday were negative. Patient will undergo SAL tomorrow ultrasound of the kidney did not show any perinephric abscess. Patient is feeling a little stronger today Constitutional: Denied any fatigue denied any fever. Cardio vascular: denied any chest pain, palpitations Gastrointestinal denied any nausea vomiting Pulmonary: Denied any shortness of breath cough Neurologic denied any new focal deficits 09/05/2019 Patient is lying in bed in no acute distress with no acute overnight issues. Patient is to undergo a SAL today around noon. Will await report. Patient is quite lethargic and continues to fall in and out of sleep while conversing. Currently patient denies any chest pain, shortness of breath, or palpitations. Patient is afebrile. Patient denies any nausea or vomiting and has been tolerating diet. Patient states he is tired today. Blood cultures from yesterday have a preliminary reading of gram-positive cocci. Infectious disease is following. Will continue to monitor closely. 09/06/2019 Patient is sitting up in the chair in no acute distress with no acute overnight issues. Cardiology and infectious disease are following. Patient underwent a SAL yesterday showing no definite evidence of vegetations on the aortic valve and no vegetation noted on the mitral or tricuspid valves but did have a thrombus in the left atrial appendage that is about 1 cm in size. LV systolic function is normal and interatrial septum is intact. Patient was started on Eliquis and will continue at this time. Patient's blood cultures continue to show MRSA and will repeat blood cultures daily to monitor closely. Patient is currently on IV antibiotics in the form of daptomycin and will continue at this time. Vancomycin was discontinued. Currently patient denies any chest pain, shortness of breath, or palpitations. Patient has been afebrile. Patient denies any nausea or vomiting and has been tolerating diet. Patient States that he is urinating well with no issues but has not had a bowel movement in 3 days. Dulcolax was ordered. 09/07/2019 Patient is sitting up in the chair in no acute distress with no acute overnight issues. Family is at the bedside. Discussed with the family and patient at length today about CODE STATUS and patient's wishes are to be made a no code as he states "he does not want to be a vegetable something were to happen." Patient is much more awake and alert today and is sitting up having full conversation. Patient denies any chest pain, shortness of breath, or palpitations. Patient is afebrile. She denies any nausea or vomiting and is tolerating diet. Patient's repeat blood cultures continue to be positive and are showing gram-positive cocci. Patient continues to have elevated blood pressure and Norvasc 10 mg will be added today. Will continue to monitor closely. Patient is currently on IV antibiotics in the form of daptomycin and will continue at this time. Infectious disease is following. 09/08/2019 patient's last blood cultures that was positive at from of this month. Patient is still lethargic 09/09/2019 Patient remained is lethargic no significant change in his clinical condition patient is bit hypoglycemic today discontinue the pre-meal insulin will discontinue sliding scale insulin will cut down the Lantus dose. Patient blood cultures from are clear. Last positive blood cultures from the 07 September Mr. Peterson is a 73-year-old male with chronic medical conditions including atrial flutter, congestive heart failure, COPD, diverticulitis, hypertension, thyroid disorder, bladder cancer coming into the hospital for fevers and lethargy. The workup for his fever with showed left atrial thrombus. And his blood cultures have been continuously positive for MRSA. Patient is currently on IV daptomycin , gentamicin and ceftriaxone as per ID Dr. Childs recommendations. On 09/10/2019- as per the nursing staff report patient is more alert compared to yesterday. He complains of fatigue. Denies having any chest pain or difficulty in breathing. No cough. Denies having any fevers chills or rigors. No abdominal pain nausea vomiting or diarrhea. No dysuria or hematuria. His blood cultures from the are still positive for MRSA. On 09/11/2019 - as per the nursing staff report no acute events reported overnight. Patient is sitting up in a chair by the bedside. He is much more alert and awake compared to yesterday. Patient denies having any chest pain or palpitations. No cough or difficulty in breathing. No fevers chills or rigors. He mentions that his lower extremity edema is still there and he has been dealing with for a long time. Patient's blood cultures from of still positive for MRSA. ID Dr. Childs on board he change daptomycin to linezolid. oN 09/12/19 - Patient is lying in bed appears to be in no acute distress. Patient complains of generalized fatigue and weakness. Denies having any chest pain or palpitations. No weakness of his extremities. No fevers chills or rigors. No cough or difficulty breathing. On reviewing the labs patient's blood cultures from have been still positive for MRSA. He is currently on linezolid and ceftriaxone. 09/13/2019 Patient is sitting up in bed sleeping but easily arousable in no acute distress. No Acute overnight issues. Patient continues to have fatigue and weakness but is arousable. Patient able to answer questions and commands appropriately once a week. Currently patient denies any chest pain, shortness of breath, or palpitations. Patient is afebrile. Patient denies any nausea or vomiting and is tolerating diet. Infectious disease is following closely. Patient was re cently transitioned to IV antibiotics in the form of Zyvox along with ceftriaxone. Most recent blood cultures continue to show positive for MRSA. Will await most recent blood culture repeats. 09/14/2019 Patient is sitting up in the bed in no acute distress. Repeat blood cultures preliminary showing gram-positive cocci. No acute overnight issues. Infectious disease is following closely. REVIEW OF SYSTEMS: Cardiovascular: No reports of chest pain or palpitations Respiratory: No reports of shortness of breath or cough Musculoskeletal: Reports of chronic back pain GI: No reports of nausea, vomiting, or diarrhea : No reports of dysuria or retention 09/15/2019 Patient is sitting up in the chair with no acute overnight issues. Repeat blood cultures from 09/13/2019 are showing Staphylococcus aureus. Will await for finalization. Infectious disease is following. Creatinine is slightly elevated at 1.75. Will repeat a.m. labs. 09/16/2019 Patient is sitting up in the chair in no acute distress. Denies any acute overnight issues. Repeat blood cultures from 09/13/2019 have finalized showing MRSA. Continued repeat cultures from 09/14 and 09/15 thus far have been negative. Creatinine today is 2.28. Will continue to closely monitor and repeat labs in the morning. 09/17/2019 Patient is currently sitting in the chair comfortably. No complaints of chest pain or worsening shortness of breath. Blood cultures showed no growth since 09 13 2019. Blood cultures on 09/18/2019 showed MRSA. Currently on Zyvox. Creatinine level is 2.51 today. Patient has been afebrile. Leukocytosis improved. ID is following. Current medications reviewed Objective - Vital Signs Vital signs: Vital Signs Temp 98.4 F 09/17/19 19:59 Pulse 66 09/17/19 19:59 Resp 16 09/17/19 20:45 BP 148/78 09/17/19 19:59 Pulse Ox 95 09/17/19 19:59 Intake & Output 09/17/19 09/17/19 09/18/19 06:59 18:59 06:59 Intake Total 420 300 60 Output Total 375 Balance 45 300 60 Intake: Intake, IV Titration 200 300 60 Amount Linezolid 600 mg In 300 Dextrose/Water 1 300ml. bag @ 150 mls/hr IVPB Q12HR [facility] Rx#:[id number] Sodium Chloride 0.9% 1, 200 60 000 ml @ 50 mls/hr IV . Q20H [facility] Rx#:[id number] Oral 220 Output: Urine 375 Other: Voiding Method Urinal Urinal Urinal Diaper Diaper Incontinent Incontinent # Voids 3 2 - Exam GENERAL: The patient is alert and oriented x3. Well developed, well nourished. Patient is awake and appears in no acute distress. HEENT: Pupils are round and equally reacting to light. EOMI. No scleral icterus. No conjunctival pallor. Normocephalic, atraumatic. No pharyngeal erythema. No thyromegaly. CARDIOVASCULAR: S1 and S2 present. No murmurs, rubs, or gallops. PULMONARY: Chest is clear to auscultation, no wheezing or crackles. ABDOMEN: Soft, non-tender, non-distended, normoactive bowel sounds. No palpable organomegaly. MUSCULOSKELETAL: No joint swelling or deformity. EXTREMITIES: No cyanosis, clubbing, bilateral lower extremity and pedal edema noted. NEUROLOGICAL: Gross neurological examination did not reveal any focal deficits. SKIN: No rashes. No open ulcerations or lesions noted - Labs CBC & Chem 7: 09/18/19 06:19 09/18/19 06:19 Labs: Abnormal Lab Results - Last 24 Hours (Table) 09/17/19 09/17/19 09/17/19 Range/Units 06:08 06:57 11:52 Carbon Dioxide 32 H (22-30) mmol/L Creatinine 2.51 H (0.66-1.25) mg/dL Glucose 111 H (74-99) mg/dL POC Glucose (mg/dL) 107 H 168 H (75-99) mg/dL 09/17/19 09/17/19 Range/Units 17:12 20:16 Carbon Dioxide (22-30) mmol/L Creatinine (0.66-1.25) mg/dL Glucose (74-99) mg/dL POC Glucose (mg/dL) 138 H 209 H (75-99) mg/dL Microbiology - Last 24 Hours (Table) 09/15/19 08:22 Blood Culture - Preliminary Blood No Growth after 48 hours 09/15/19 07:40 Blood Culture - Preliminary Blood No Growth after 48 hours 09/14/19 06:51 Blood Culture - Preliminary Blood No Growth after 72 hours Assessment and Plan Assessment: -Severe sepsis secondary to urinary tract infection Repeat blood cultures thus far from 09/14 and 09/15 have been negative. Patient's IV antibiotics have been switched to Zyvox and ceftriaxone. Will continue with daily blood cultures. Infectious disease is following. -Extensive venous stasis dermatosis and bilateral pedal edema from venous stasis dermatosis Lasix will be held temporarily because of sepsis. -Type 2 diabetes mellitus, uncontrolled -Generalized weakness secondary to sepsis -Hypertension -Parkinson's -Hypothyroidism -COPD without any acute exacerbation -Acute kidney injury likely due to ATN: From sepsis and Lasix is contributing to his acute renal failure -Chronic kidney disease stage 2-3 -Diabetic peripheral neuropathy. Recommendations and discussion: Recommend to continue current medications, management, and symptomatic treatment. Infectious disease is following. Patient will continue on IV antibiotics in the form of Zyvox and ceftriaxone at this time. Repeat blood culture negative from 09/14 and 09/15. Will continue with daily draws until later blood cultures.. Will repeat am labs and monitor creatinine closely as it is elevated at 2.28--251. Will continue to monitor closely. Case management a nd public health social worker following as well for possible placement once patient is discharged. Patient will likely need IV antibiotics as well as continue PT/OT therapy for strength and mobility. Further recommendations to follow. Time with Patient: Greater than 30
[2019-09-18 12:00] LABS: Glucose,Whole Blood 146 mg/dL (75-99)
[2019-09-18 16:47] LABS: Glucose,Whole Blood 146 mg/dL (75-99)
[2019-09-18 20:27] LABS: Glucose,Whole Blood 153 mg/dL (75-99)
[2019-09-18] MEDS: INSULIN DETEMIR (LEVEMIR) 100 UNIT/ML SYR SQ SCH (20:27)
--- NOTE | 2019-09-19 01:21 | P.PN ---
Subjective Progress Note Date: 09/18/19 Principal diagnosis: MRSA bacteremia 73-year-old male came in because of possible Infection as patient felt quite weak and lethargic found to have high-grade fever found to be septic with the lactic acidosis. Patient does take Lasix at home regimen of history of congestive heart failure. Patient does have Parkinson's and is on carbidopa levodopa for that. Patient lowered himself to Because of Generalized Weakness. Patient Chest X-Ray Did Not Show Pneumonia but Urine Is Significant Abnormality Patient Does Have History of UTI in the past Patient Has Enterococcus Which Is Resistant to Penicillin but Sensitive to Vancomycin. Patient Also Had MRSA UTI in the past. Urine Cultures Blood Cultures Were Obtained. 09/01/2019 Patient is lying in bed in no acute distress with no acute overnight issues. Patient states that he continues to feel weak and has been working with PT/OT. Infectious disease is following. Patient's blood cultures have resulted with presumptive MRSA and repeat blood cultures are pending at this time. Patient is currently on IV antibiotics in the form of ceftriaxone and vancomycin and will continue at this time. Patient denies any chest pain, shortness of breath, or palpitations. Patient has been afebrile. Patient denies any nausea or vomiting and is tolerating diet. Patient states that he has been falling more frequently at home in case management and social work are following for discharge planning as the patient may require rehab upon discharge. Will continue to monitor closely. 09/02/2019 Patient is lying in bed in no acute distress with no acute overnight issues. Repeat blood cultures have shown presumptive MRSA. Infectious disease is following. Patient is having some right knee pain an x-ray was done showing no fracture nor dislocation and joint spaces are normal with no signs of joint effusion. Patient is currently on IV antibiotics in the form of vancomycin and will continue at this time. Patient is on gentle IV hydration at 75mL/hr his creatinine is improving and is currently 1.56. White blood count is trending down and is currently 11.3. Will repeat a.m. labs. Cardiology is consulted and is pending at this time. Will continue to monitor vital signs and labs closely. 09/03/2019 Patient had persistent bacteremia will obtain ultrasound of the kidney to rule out any perinephric abscess along with the possible endocarditis. Patient is feeling a bit better today. Afebrile. 09/04/2019 Blood cultures from yesterday were negative. Patient will undergo SAL tomorrow ultrasound of the kidney did not show any perinephric abscess. Patient is feeling a little stronger today Constitutional: Denied any fatigue denied any fever. Cardio vascular: denied any chest pain, palpitations Gastrointestinal denied any nausea vomiting Pulmonary: Denied any shortness of breath cough Neurologic denied any new focal deficits 09/05/2019 Patient is lying in bed in no acute distress with no acute overnight issues. Patient is to undergo a SAL today around noon. Will await report. Patient is quite lethargic and continues to fall in and out of sleep while conversing. Currently patient denies any chest pain, shortness of breath, or palpitations. Patient is afebrile. Patient denies any nausea or vomiting and has been tolerating diet. Patient states he is tired today. Blood cultures from yesterday have a preliminary reading of gram-positive cocci. Infectious disease is following. Will continue to monitor closely. 09/06/2019 Patient is sitting up in the chair in no acute distress with no acute overnight issues. Cardiology and infectious disease are following. Patient underwent a SAL yesterday showing no definite evidence of vegetations on the aortic valve and no vegetation noted on the mitral or tricuspid valves but did have a thrombus in the left atrial appendage that is about 1 cm in size. LV systolic function is normal and interatrial septum is intact. Patient was started on Eliquis and will continue at this time. Patient's blood cultures continue to show MRSA and will repeat blood cultures daily to monitor closely. Patient is currently on IV antibiotics in the form of daptomycin and will continue at this time. Vancomycin was discontinued. Currently patient denies any chest pain, shortness of breath, or palpitations. Patient has been afebrile. Patient denies any nausea or vomiting and has been tolerating diet. Patient States that he is urinating well with no issues but has not had a bowel movement in 3 days. Dulcolax was ordered. 09/07/2019 Patient is sitting up in the chair in no acute distress with no acute overnight issues. Family is at the bedside. Discussed with the family and patient at length today about CODE STATUS and patient's wishes are to be made a no code as he states "he does not want to be a vegetable something were to happen." Patient is much more awake and alert today and is sitting up having full conversation. Patient denies any chest pain, shortness of breath, or palpitations. Patient is afebrile. She denies any nausea or vomiting and is tolerating diet. Patient's repeat blood cultures continue to be positive and are showing gram-positive cocci. Patient continues to have elevated blood pressure and Norvasc 10 mg will be added today. Will continue to monitor closely. Patient is currently on IV antibiotics in the form of daptomycin and will continue at this time. Infectious disease is following. 09/08/2019 patient's last blood cultures that was positive at from of this month. Patient is still lethargic 09/09/2019 Patient remained is lethargic no significant change in his clinical condition patient is bit hypoglycemic today discontinue the pre-meal insulin will discontinue sliding scale insulin will cut down the Lantus dose. Patient blood cultures from are clear. Last positive blood cultures from the 07 September Mr. Peterson is a 73-year-old male with chronic medical conditions including atrial flutter, congestive heart failure, COPD, diverticulitis, hypertension, thyroid disorder, bladder cancer coming into the hospital for fevers and lethargy. The workup for his fever with showed left atrial thrombus. And his blood cultures have been continuously positive for MRSA. Patient is currently on IV daptomycin , gentamicin and ceftriaxone as per ID Dr. Childs recommendations. On 09/10/2019- as per the nursing staff report patient is more alert compared to yesterday. He complains of fatigue. Denies having any chest pain or difficulty in breathing. No cough. Denies having any fevers chills or rigors. No abdominal pain nausea vomiting or diarrhea. No dysuria or hematuria. His blood cultures from the are still positive for MRSA. On 09/11/2019 - as per the nursing staff report no acute events reported overnight. Patient is sitting up in a chair by the bedside. He is much more alert and awake compared to yesterday. Patient denies having any chest pain or palpitations. No cough or difficulty in breathing. No fevers chills or rigors. He mentions that his lower extremity edema is still there and he has been dealing with for a long time. Patient's blood cultures from of still positive for MRSA. ID Dr. Childs on board he change daptomycin to linezolid. oN 09/12/19 - Patient is lying in bed appears to be in no acute distress. Patient complains of generalized fatigue and weakness. Denies having any chest pain or palpitations. No weakness of his extremities. No fevers chills or rigors. No cough or difficulty breathing. On reviewing the labs patient's blood cultures from have been still positive for MRSA. He is currently on linezolid and ceftriaxone. 09/13/2019 Patient is sitting up in bed sleeping but easily arousable in no acute distress. No Acute overnight issues. Patient continues to have fatigue and weakness but is arousable. Patient able to answer questions and commands appropriately once a week. Currently patient denies any chest pain, shortness of breath, or palpitations. Patient is afebrile. Patient denies any nausea or vomiting and is tolerating diet. Infectious disease is following closely. Patient was re cently transitioned to IV antibiotics in the form of Zyvox along with ceftriaxone. Most recent blood cultures continue to show positive for MRSA. Will await most recent blood culture repeats. 09/14/2019 Patient is sitting up in the bed in no acute distress. Repeat blood cultures preliminary showing gram-positive cocci. No acute overnight issues. Infectious disease is following closely. REVIEW OF SYSTEMS: Cardiovascular: No reports of chest pain or palpitations Respiratory: No reports of shortness of breath or cough Musculoskeletal: Reports of chronic back pain GI: No reports of nausea, vomiting, or diarrhea : No reports of dysuria or retention 09/15/2019 Patient is sitting up in the chair with no acute overnight issues. Repeat blood cultures from 09/13/2019 are showing Staphylococcus aureus. Will await for finalization. Infectious disease is following. Creatinine is slightly elevated at 1.75. Will repeat a.m. labs. 09/16/2019 Patient is sitting up in the chair in no acute distress. Denies any acute overnight issues. Repeat blood cultures from 09/13/2019 have finalized showing MRSA. Continued repeat cultures from 09/14 and 09/15 thus far have been negative. Creatinine today is 2.28. Will continue to closely monitor and repeat labs in the morning. 09/17/2019 Patient is currently sitting in the chair comfortably. No complaints of chest pain or worsening shortness of breath. Blood cultures showed no growth since 09 13 2019. Blood cultures on 09/13/2019 showed MRSA. Currently on Zyvox. Creatinine level is 2.51 today. Patient has been afebrile. Leukocytosis improved. ID is following. 09/18/2019 Patient is currently sitting in a chair comfortably. Blood cultures showed no growth since 10/14/2018. Currently on IV antibiotics. Renal function is fairly stable with creatinine level still elevated at 2.55. Patient is tolerating oral diet. Continued on gentle hydration. ID is following. Current medications reviewed Objective - Vital Signs Vital signs: Vital Signs Temp 98.5 F 09/18/19 07:00 Pulse 79 09/18/19 08:00 Resp 12 09/18/19 08:00 BP 147/65 09/18/19 07:00 Pulse Ox 95 09/18/19 07:00 Intake & Output 09/17/19 09/18/19 09/18/19 18:59 06:59 18:59 Intake Total 300 650 Balance 300 650 Intake: Intake, IV Titration 300 60 Amount Linezolid 600 mg In 300 Dextrose/Water 1 300ml. bag @ 150 mls/hr IVPB Q12HR [facility] Rx#:[id number] Sodium Chloride 0.9% 1, 60 000 ml @ 50 mls/hr IV . Q20H [facility] Rx#:[id number] Oral 590 Other: Voiding Method Urinal Urinal Urinal Diaper Diaper Diaper Incontinent Incontinent Incontinent # Voids 4 - Exam GENERAL: The patient is alert and oriented x3. Well developed, well nourished. Patient is awake and appears in no acute distress. HEENT: Pupils are round and equally reacting to light. EOMI. No scleral icterus. No conjunctival pallor. Normocephalic, atraumatic. No pharyngeal erythema. No thyromegaly. CARDIOVASCULAR: S1 and S2 present. No murmurs, rubs, or gallops. PULMONARY: Chest is clear to auscultation, no wheezing or crackles. ABDOMEN: Soft, non-tender, non-distended, normoactive bowel sounds. No palpable organomegaly. MUSCULOSKELETAL: No joint swelling or deformity. EXTREMITIES: No cyanosis, clubbing, bilateral lower extremity and pedal edema noted. NEUROLOGICAL: Gross neurological examination did not reveal any focal deficits. SKIN: No rashes. No open ulcerations or lesions noted - Labs CBC & Chem 7: 09/18/19 06:19 09/18/19 06:19 Labs: Abnormal Lab Results - Last 24 Hours (Table) 09/17/19 09/17/19 09/17/19 Range/Units 11:52 17:12 20:16 WBC (3.8-10.6) k/uL RBC (4.30-5.90) m/uL Hgb (13.0-17.5) gm/dL Hct (39.0-53.0) % BUN (9-20) mg/dL Creatinine (0.66-1.25) mg/dL Glucose (74-99) mg/dL POC Glucose (mg/dL) 168 H 138 H 209 H (75-99) mg/dL 09/18/19 09/18/19 09/18/19 Range/Units 06:19 06:19 06:56 WBC 10.7 H (3.8-10.6) k/uL RBC 3.87 L (4.30-5.90) m/uL Hgb 11.8 L (13.0-17.5) gm/dL Hct 36.1 L (39.0-53.0) % BUN 21 H (9-20) mg/dL Creatinine 2.55 H (0.66-1.25) mg/dL Glucose 64 L (74-99) mg/dL POC Glucose (mg/dL) 70 L (75-99) mg/dL Microbiology - Last 24 Hours (Table) 09/15/19 08:22 Blood Culture - Preliminary Blood No Growth after 72 hours 09/15/19 07:40 Blood Culture - Preliminary Blood No Growth after 72 hours 09/14/19 06:51 Blood Culture - Preliminary Blood No Growth after 96 hours Assessment and Plan Assessment: -Severe sepsis secondary to urinary tract infection and MRSA bacteremia Repeat blood cultures thus far from 09/14 and 09/15 have been negative. Patient's IV antibiotics have been switched to Zyvox and ceftriaxone. Will continue with daily blood cultures. Infectious disease is following. -Left atrial appendage thrombus. Currently on anticoagulation with Eliquis. -Extensive venous stasis dermatosis and bilateral pedal edema from venous stasis dermatosis Lasix will be held temporarily because of sepsis. -Type 2 diabetes mellitus, uncontrolled -Generalized weakness secondary to sepsis -Hypertension -Parkinson's -Hypothyroidism -COPD without any acute exacerbation -Acute kidney injury likely due to ATN: From sepsis and Lasix is contributing to his acute renal failure -Chronic kidney disease stage 2-3 -Diabetic peripheral neuropathy. Recommendations and discussion: Recommend to continue current medications, management, and symptomatic treatment. Infectious disease is following. Patient will continue on IV antibiotics in the form of Zyvox and ceftriaxone at this time. Repeat blood culture negative from 09/14 and 09/15. Will continue with daily draws until later blood cultures.. Will repeat am labs and monitor creatinine closely as it is elevated at 2.28--251. Will continue to monitor closely. Case management and social studies department chair following as well for possible placement once patient is discharged. Patient will likely need IV antibiotics as well as continue PT/OT therapy for strength and mobility. Further recommendations to follow. Time with Patient: Greater than 30
[2019-09-19] MEDS: LEVOTHYROXINE 100 MCG TAB PO SCH (04:13)
[2019-09-19 06:51] LABS: Basophils % (A) 0 %; Eosinophils # (A) 0.1 k/uL (0-0.7); Eosinophils % (A) 1 %; HCT 34.6 % (39.0-53.0); HGB 11.3 gm/dL (13.0-17.5); Lymphocytes # (A) 1.8 k/uL (1.0-4.8); Lymphocytes % (A) 17 %; MCH 30.2 pg (25.0-35.0); MCHC 32.5 g/dL (31.0-37.0); MCV 92.9 fL (80.0-100.0); Mean Platelet Volume 7.4; Monocytes # (A) 0.9 k/uL (0-1.0); Monocytes % (A) 8 %; Neutrophils # (A) 7.6 k/uL (1.3-7.7); Neutrophils % (A) 72 %; Platelet Count 376 k/uL (150-450); RBC 3.72 m/uL (4.30-5.90); RDW 13.3 % (11.5-15.5); WBC 10.6 k/uL (3.8-10.6)
[2019-09-19 07:01] LABS: Calcium 9.4 mg/dL (8.4-10.2); Potassium 5.3 mmol/L (3.5-5.1)
[2019-09-19 07:21] LABS: Glucose,Whole Blood 159 mg/dL (75-99)
[2019-09-19] MEDS: INSULIN ASPART (NovoLOG) 100 UNIT/ML VIAL SQ SCH ×4 (08:09→20:50)
[2019-09-19] MEDS: LISINOPRIL 20 MG TAB PO SCH (08:11)
[2019-09-19] MEDS: METOPROLOL TARTRATE 25 MG TAB PO SCH ×2 (08:11→20:59)
[2019-09-19] MEDS: amLODIPine 10 MG TAB PO SCH (08:11)
[2019-09-19] MEDS: CARBIDOPA-LEVODOPA 25-100 MG 1 EACH TAB PO SCH ×3 (08:12→20:59)
[2019-09-19] MEDS: APIXABAN 5 MG TAB PO SCH ×2 (08:12→20:59)
[2019-09-19] MEDS: ALLOPURINOL 100 MG TAB PO SCH (08:12)
[2019-09-19 12:01] LABS: Glucose,Whole Blood 179 mg/dL (75-99)
--- NOTE | 2019-09-19 13:11 | CT ---
EXAMINATION TYPE: CT brain wo con DATE OF EXAM: 09/19/2019 COMPARISON: 05/26/2019 HISTORY: Fall today with possible injury CT DLP: 1217.[address] of the head is obtained. Moderate generalized degenerative change with diffuse low-att enuation in the white matter. No midline shift or mass effect. No acute hemorrhage. Atherosclerotic c hange of the aorta. The calvarium is intact. No midline shift. IMPRESSION: 1. No evidence of acute hemorrhage or mass effect. If symptoms persist or there is clinical concern for acute ischemia correlate with MRI. 2. Degenerative and nonspecific white matter changes most typical remote microvascular ischemia. Raquel elate clinically.
--- NOTE | 2019-09-19 13:40 | P.PN ---
Subjective Progress Note Date: 09/19/19 Principal diagnosis: 73-year-old male came in because of possible Infection as patient felt quite weak and lethargic found to have high-grade fever found to be septic with the lactic acidosis. Patient does take Lasix at home regimen of history of congestive heart failure. Patient does have Parkinson's and is on carbidopa levodopa for that. Patient lowered himself to Because of Generalized Weakness. Patient Chest X-Ray Did Not Show Pneumonia but Urine Is Significant Abnormality Patient Does Have History of UTI in the past Patient Has Enterococcus Which Is Resistant to Penicillin but Sensitive to Vancomycin. Patient Also Had MRSA UTI in the past. Urine Cultures Blood Cultures Were Obtained. 09/01/2019 Patient is lying in bed in no acute distress with no acute overnight issues. Patient states that he continues to feel weak and has been working with PT/OT. Infectious disease is following. Patient's blood cultures have resulted with presumptive MRSA and repeat blood cultures are pending at this time. Patient is currently on IV antibiotics in the form of ceftriaxone and vancomycin and will continue at this time. Patient denies any chest pain, shortness of breath, or palpitations. Patient has been afebrile. Patient denies any nausea or vomiting and is tolerating diet. Patient states that he has been falling more frequently at home in case management and social work are following for discharge planning as the patient may require rehab upon discharge. Will continue to monitor closely. 09/02/2019 Patient is lying in bed in no acute distress with no acute overnight issues. Repeat blood cultures have shown presumptive MRSA. Infectious disease is f ollowing. Patient is having some right knee pain an x-ray was done showing no fracture nor dislocation and joint spaces are normal with no signs of joint effusion. Patient is currently on IV antibiotics in the form of vancomycin and will continue at this time. Patient is on gentle IV hydration at 75mL/hr his creatinine is improving and is currently 1.56. White blood count is trending down and is currently 11.3. Will repeat a.m. labs. Cardiology is consulted and is pending at this time. Will continue to monitor vital signs and labs closely. 09/03/2019 Patient had persistent bacteremia will obtain ultrasound of the kidney to rule out any perinephric abscess along with the possible endocarditis. Patient is feeling a bit better today. Afebrile. 09/04/2019 Blood cultures from yesterday were negative. Patient will undergo SAL tomorrow ultrasound of the kidney did not show any perinephric abscess. Patient is feeling a little stronger today Constitutional: Denied any fatigue denied any fever. Cardio vascular: denied any chest pain, palpitations Gastrointestinal denied any nausea vomiting Pulmonary: Denied any shortness of breath cough Neurologic denied any new focal deficits 09/05/2019 Patient is lying in bed in no acute distress with no acute overnight issues. Patient is to undergo a SAL today around noon. Will await report. Patient is quite lethargic and continues to fall in and out of sleep while conversing. Currently patient denies any chest pain, shortness of breath, or palpitations. Patient is afebrile. Patient denies any nausea or vomiting and has been bryon erating diet. Patient states he is tired today. Blood cultures from yesterday have a preliminary reading of gram-positive cocci. Infectious disease is following. Will continue to monitor closely. 09/06/2019 Patient is sitting up in the chair in no acute distress with no acute overnight issues. Cardiology and infectious disease are following. Patient underwent a SAL yesterday showing no definite evidence of vegetations on the aortic valve and no vegetation noted on the mitral or tricuspid valves but did have a thrombus in the left atrial appendage that is about 1 cm in size. LV systolic function is normal and interatrial septum is intact. Patient was started on Eliquis and will continue at this time. Patient's blood cultures continue to show MRSA and will repeat blood cultures daily to monitor closely. Patient is currently on IV antibiotics in the form of daptomycin and will continue at this time. Vancomycin was discontinued. Currently patient denies any chest pain, shortness of breath, or palpitations. Patient has been afebrile. Patient denies any nausea or vomiting and has been tolerating diet. Patient States that he is urinating well with no issues but has not had a bowel movement in 3 days. Dulcolax was ordered. 09/07/2019 Patient is sitting up in the chair in no acute distress with no acute overnight issues. Family is at the bedside. Discussed with the family and patient at length today about CODE STATUS and patient's wishes are to be made a no code as he states "he does not want to be a vegetable something were to happen." Patient is much more awake and alert today and is sitting up having full conversation. Patient denies any chest pain, shortness of breath, or palpitations. Patient is afebrile. She denies any nausea or vomiting and is tolerating diet. Patient's repeat blood cultures continue to be positive and are showing gram-positive cocci. Patient continues to have elevated blood pressure and Norvasc 10 mg will be added today. Will continue to monitor closely. Patient is currently on IV antibiotics in the form of daptomycin and will continue at this time. Infectious disease is following. 09/08/2019 patient's last blood cultures that was positive at from of this month. Patient is still lethargic 09/09/2019 Patient remained is lethargic no significant change in his clinical condition patient is bit hypoglycemic today discontinue the pre-meal insulin will discontinue sliding scale insulin will cut down the Lantus dose. Patient blood cultures from are clear. Last positive blood cultures from the Nov ember Mr. Peterson is a 73-year-old male with chronic medical conditions including atrial flutter, congestive heart failure, COPD, diverticulitis, hypertension, thyroid disorder, bladder cancer coming into the hospital for fevers and lethargy. The workup for his fever with showed left atrial thrombus. And his blood cultures have been continuously positive for MRSA. Patient is currently on IV daptomycin , gentamicin and ceftriaxone as per DORETHA Childs recommendations. On 09/10/2019- as per the nursing staff report patient is more alert compared to yesterday. He complains of fatigue. Denies having any chest pain or difficulty in breathing. No cough. Denies having any fevers chills or rigors. No abdominal pain nausea vomiting or diarrhea. No dysuria or hematuria. His blood cultures from the are still positive for MRSA. On 09/11/2019 - as per the nursing staff report no acute events reported overnight. Patient is sitting up in a chair by the bedside. He is much more alert and awake compared to yesterday. Patient denies having any chest pain or palpitations. No cough or difficulty in breathing. No fevers chills or rigors. He mentions that his lower extremity edema is still there and he has been dealing with for a long time. Patient's blood cultures from of still positive for MRSA. ID Dr. Childs on board he change daptomycin to linezolid. oN 09/12/19 - Patient is lying in bed appears to be in no acute distress. Patient complains of generalized fatigue and weakness. Denies having any chest pain or palpitations. No weakness of his extremities. No fevers chills or rigors. No cough or difficulty breathing. On reviewing the labs patient's blood cultures from have been still positive for MRSA. He is currently on linezolid and ceftriaxone. 09/13/2019 Patient is sitting up in bed sleeping but easily arousable in no acute distress. No Acute overnight issues. Patient continues to have fatigue and weakness but is arousable. Patient able to answer questions and commands appropriately once a week. Currently patient denies any chest pain, shortness of breath, or palpitations. Patient is afebrile. Patient denies any nausea or vomiting and is tolerating diet. Infectious disease is following closely. Patient was recently transitioned to IV antibiotics in the form of Zyvox along with ceftriaxone. Most recent blood cultures continue to show positive for MRSA. Will await most recent blood culture repeats. 09/14/2019 Patient is sitting up in the bed in no acute distress. Repeat blood cultures preliminary showing gram-positive cocci. No acute overnight issues. Infectious disease is following closely. REVIEW OF SYSTEMS: Cardiovascular: No reports of chest pain or palpitations Respiratory: No reports of shortness of breath or cough Musculoskeletal: Reports of chronic back pain GI: No reports of nausea, vomiting, or diarrhea : No reports of dysuria or retention 09/15/2019 Patient is sitting up in the chair with no acute overnight issues. Repeat blood cultures from 09/13/2019 are showing Staphylococcus aureus. Will await for finalization. Infectious disease is following. Creatinine is slightly elevated at 1.75. Will repeat a.m. labs. 09/16/2019 Patient is sitting up in the chair in no acute distress. Denies any acute overnight issues. Repeat blood cultures from 09/13/2019 have finalized showing MRSA. Continued repeat cultures from 09/14 and 09/15 thus far have been negative. Creatinine today is 2.28. Will continue to closely monitor and repeat labs in the morning. 09/17/2019 Patient is currently sitting in the chair comfortably. No complaints of chest pain or worsening shortness of breath. Blood cultures showed no growth since 09 13 2019. Blood cultures on 09/13/2019 showed MRSA. Currently on Zyvox. Creatinine level is 2.51 today. Patient has been afebrile. Leukocytosis improved. ID is following. 09/18/2019 Patient is currently sitting in a chair comfortably. Blood cultures showed no growth since 10/14/2018. Currently on IV antibiotics. Renal function is fairly stable with creatinine level still elevated at 2.55. Patient is tolerating oral diet. Continued on gentle hydration. ID is following. Current medications reviewed 09/19/2019 Patient is sitting up in bed in no acute distress. Patient appears to be disheveled and continues to remove his gown. When talking with nursing staff patient fell this morning attempting to get up without help and landed on his buttock causing a small skin tear. Patient denies any other trauma at this time. CAT scan of the head was ordered and is negative at this time. Awaiting authorization for [facility] on the [place] continue rehab. Creatinine slightly elevated today 2.78 and is currently on IV fluids at 50 miles per hour. Will repeat a.m. labs. The last 2 blood cultures have been negative thus far and patient is responding well to the Zyvox. Infectious disease is following. REVIEW OF SYSTEMS: Cardiovascular: No reports of chest pain or palpitations Respiratory: No reports of shortness of breath or cough Musculoskeletal: Reports of chronic back pain GI: No reports of nausea, vomiting, or diarrhea : No reports of dysuria or retention Objective - Vital Signs Vital signs: Vital Signs Temp 97.8 F 09/19/19 07:08 Pulse 91 09/19/19 07:08 Resp 17 09/19/19 07:08 BP 147/79 09/19/19 07:08 Pulse Ox 94 L 09/19/19 01:05 Intake & Output 09/18/19 09/19/19 09/19/19 18:59 06:59 18:59 Intake Total 740 100 Balance 740 100 Intake: Intake, IV Titration 200 Amount Sodium Chloride 0.9% 1, 200 000 ml @ 50 mls/hr IV . Q20H UMAIR Rx#:[id number] Oral 540 100 Other: Voiding Method Urinal Diaper Incontinent # Voids 2 - Exam GENERAL: The patient is alert and oriented x3. Well developed, well nourished. Patient is awake and appears in no acute distress. HEENT: Pupils are round and equally reacting to light. EOMI. No scleral icterus. No conjunctival pallor. Normocephalic, atraumatic. No pharyngeal erythema. No thyromegaly. CARDIOVASCULAR: S1 and S2 present. No murmurs, rubs, or gallops. PULMONARY: Chest is clear to auscultation, no wheezing or crackles. ABDOMEN: Soft, non-tender, non-distended, normoactive bowel sounds. No palpable organomegaly. MUSCULOSKELETAL: No joint swelling or deformity. EXTREMITIES: No cyanosis, clubbing, bilateral lower extremity and pedal edema noted. NEUROLOGICAL: Gross neurological examination did not reveal any focal deficits. SKIN: No rashes. No open ulcerations or lesions noted - Labs CBC & Chem 7: 09/19/19 06:07 09/19/19 06:07 Labs: Abnormal Lab Results - Last 24 Hours (Table) 09/18/19 09/18/19 09/19/19 Range/Units 16:45 20:26 06:07 RBC 3.72 L (4.30-5.90) m/uL Hgb 11.3 L (13.0-17.5) gm/dL Hct 34.6 L (39.0-53.0) % Sodium (137-145) mmol/L Potassium (3.5-5.1) mmol/L Chloride (98-107) mmol/L BUN (9-20) mg/dL Creatinine (0.66-1.25) mg/dL Glucose (74-99) mg/dL POC Glucose (mg/dL) 146 H 153 H (75-99) mg/dL 09/19/19 09/19/19 09/19/19 Range/Units 06:07 07:18 11:58 RBC (4.30-5.90) m/uL Hgb (13.0-17.5) gm/dL Hct (39.0-53.0) % Sodium 135 L (137-145) mmol/L Potassium 5.3 H (3.5-5.1) mmol/L Chloride 97 L (98-107) mmol/L BUN 23 H (9-20) mg/dL Creatinine 2.78 H (0.66-1.25) mg/dL Glucose 146 H (74-99) mg/dL POC Glucose (mg/dL) 159 H 179 H (75-99) mg/dL Microbiology - Last 24 Hours (Table) 09/15/19 08:22 Blood Culture - Preliminary Blood No Growth after 96 hours 09/15/19 07:40 Blood Culture - Preliminary Blood No Growth after 96 hours 09/14/19 06:51 Blood Culture - Preliminary Blood No Growth after 120 hours Assessment and Plan Assessment: -Severe sepsis secondary to urinary tract infection Repeat blood cultures thus far from 09/14 and 09/15 have been negative. Patient's IV antibiotics have been switched to Zyvox and ceftriaxone. Infectious disease is following. -Extensive venous stasis dermatosis and bilateral pedal edema from venous stasis dermatosis Lasix will be held temporarily because of sepsis. -Gait dysfunction -Type 2 diabetes mellitus, uncontrolled -Generalized weakness secondary to sepsis -Hypertension -Parkinson's -Hypothyroidism -COPD without any acute exacerbation -Acute kidney injury: From sepsis and Lasix is contributing to his acute renal failure -Chronic kidney disease stage 2-3 -Diabetic peripheral neuropathy. Recommendations and discussion: Recommend to continue current medications, management, and symptomatic treatment. Infectious disease is following. Patient will continue on IV antibiotics in the form of Zyvox and ceftriaxone at this time. Repeat blood culture remained negative from 09/14 and 09/15. Creatinine today is 2.78. Will repeat am labs and monitor creatinine closely. Will continue to monitor closely. Patient had an unwitnessed fall this morning attempting to get to the bathroom without help and fell on his buttock causing a small skin tear. CT of the head was done and was negative. Case management and social media assistant following as well for possible placement once patient is discharged. Awaiting authorization for [facility] on the [place]. Patient will need oral antibiotic therapy as well as continued PT/OT therapy for strength and mobility. Further recommendations to follow.
[2019-09-19 15:29] VITALS: BMI 34.1
[2019-09-19 17:05] LABS: Glucose,Whole Blood 172 mg/dL (75-99)
[2019-09-19] MEDS: SODIUM CHLORIDE 0.9% 1,000 ML IV SCH (18:19)
[2019-09-19 20:47] LABS: Glucose,Whole Blood 113 mg/dL (75-99)
[2019-09-19] MEDS: INSULIN DETEMIR (LEVEMIR) 100 UNIT/ML SYR SQ SCH (20:50)
[2019-09-19] MEDS: LINEZOLID 600 MG TAB PO SCH (20:59)
--- NOTE | 2019-09-19 23:24 | P.PN ---
Subjective Progress Note Date: 09/19/19 79-year-old male who lives in the family home with his spouse and grandchildren relates that he's been feeling poorly for a few days. He became very weak and actually lowered himself to the ground because he was so weak. EMS was called and he was brought to hospital. He was on evidence of a fever as well as leukocytosis and feeling quite poorly. Patient has a long-standing history of Parkinson's and is a limited historian. He denies severe pain at this time. 09/02/2019 patient remains a poor historian but he is a bit stronger and may have sitting up in the chair. He has no significant complaints. 09/05/2019 patient remains fatigued and feels ill but has been able to sit up in a chair, denies fevers or chills. SAL has now been performed. September 06 2019 the patient is sleepy and difficult to arouse this afternoon. His untouched lunch is next to him. His status is discussed with the nurse. He has been quite sleepy through the morning into the early afternoon. She will reassess if he does awaken make sure there some assistance in eating his meal. 09/07/2019 patient continues to be with ongoing sepsis and ongoing bacteremia despite antibiotic therapy and change of antibiotic therapy daptomycin. He is still very weak and ill which is quite different from his baseline. Discussion occurred with the primary care team yesterday. And the patient is now been appropriate and made no code is receiving ongoing aggressive interventions. September 10 the patient is more awake alert and interactive today. He seems to be modestly comfortable in is not complaining of severe pain. Laboratories reviewed he has evidence of ongoing bacteremia. Sep feels better was able to transfer to the chair unassisted except walker. no fevers feels poorly overall 09/12/2019 patient is fatigued today but no new acute troubles, appetite is adequate. 09/13/2019 the patient is more awake alert and interactive today. He continues to have a relatively good appetite no difficulty eating his dinner. No nausea or emesis. He does have some chronic back pain that is not acutely worse. 09/14/2019 patient sitting up in the chair and his is visiting. He is a bit more awake alert and interactive than he has been. He exhibits a mild sense of humor. Patient's is pleased but is concerned that he is not eating well. 09/15/2019 Patient is again showing some improvement today. He is up in the chair he is eating his lunch without difficulty and voices no severe discomfort. He is uncomfortable but is wondering when he will be well enough to be able to leave hospital. We discussed that he continues having ongoing bacteremic infection related to the left atrial clot that is infected. The cardiovascular team does not believe that they can remove the clot. 09/16/2019 the patient is feeling again better today. Sitting upright eating his meals as a brighter affect. Looking for to transitioning out of the hospital so that he can gain some strength. He is having no fevers or chills. No difficulty with current antibiotic therapy. 09/19/2019 the patient is having some further improvement. Sitting upright eating well and look forward to his transition out of hospital. Nursing staff relates that he was a bit sleepy today appears to be improved at this time. Objective - Vital Signs Vital signs: Vital Signs Temp 98.8 F 09/19/19 19:40 Pulse 78 09/19/19 19:40 Resp 16 09/19/19 19:40 BP 128/65 09/19/19 19:40 Pulse Ox 93 L 09/19/19 19:40 Intake & Output 09/19/19 09/19/19 09/20/19 06:59 18:59 06:59 Intake Total 740 460 Balance 740 460 Weight 108 kg Intake: Intake, IV Titration 200 Amount Sodium Chloride 0.9% 1, 200 000 ml @ 50 mls/hr IV . Q20H UMAIR Rx#:[id number] Oral 540 460 Other: # Voids 1 1 - Exam 79-year-old male who seems to be comfortable, visiting with his HEENT: Anicteric conjunctiva are pink and moist nasal mucosa grossly intact without significant lesions, there is no thrush. Has dentures Neck: The neck is supple without significant lymphadenopathy or thyromegaly. Lungs: There is symmetrical bilateral air entry with few crackles at the bases no significant wheezing Heart: Irregular with a soft S4. No murmur click or rub Abdomen: Mildly obese, Positive bowel sounds soft and nontender without palpable masses or organomegaly. There was no guarding or rebound. Extremities: The upper extremities have excellent pulses they are symmetric, no significant petechiae or telangiectasia. No splinter hemorrhages were noted. Lower extremities have evidence of extensive bilateral lower extremity edema, skin is thickened toenails are untrimmed no open ulcerations are seen Neuro: Patient is much more awake alert and interactive today. Up in the chair. - Labs CBC & Chem 7: 09/19/19 06:07 09/19/19 06:07 Labs: Abnormal Lab Results - Last 24 Hours (Table) 09/19/19 09/19/19 09/19/19 Range/Units 06:07 06:07 07:18 RBC 3.72 L (4.30-5.90) m/uL Hgb 11.3 L (13.0-17.5) gm/dL Hct 34.6 L (39.0-53.0) % Sodium 135 L (137-145) mmol/L Potassium 5.3 H (3.5-5.1) mmol/L Chloride 97 L (98-107) mmol/L BUN 23 H (9-20) mg/dL Creatinine 2.78 H (0.66-1.25) mg/dL Glucose 146 H (74-99) mg/dL POC Glucose (mg/dL) 159 H (75-99) mg/dL 09/19/19 09/19/19 09/19/19 Range/Units 11:58 17:03 20:46 RBC (4.30-5.90) m/uL Hgb (13.0-17.5) gm/dL Hct (39.0-53.0) % Sodium (137-145) mmol/L Potassium (3.5-5.1) mmol/L Chloride (98-107) mmol/L BUN (9-20) mg/dL Creatinine (0.66-1.25) mg/dL Glucose (74-99) mg/dL POC Glucose (mg/dL) 179 H 172 H 113 H (75-99) mg/dL Microbiology - Last 24 Hours (Table) 09/15/19 08:22 Blood Culture - Preliminary Blood No Growth after 96 hours 09/15/19 07:40 Blood Culture - Preliminary Blood No Growth after 96 hours 09/14/19 06:51 Blood Culture - Preliminary Blood No Growth after 120 hours Laboratory Results WBC 10.6 k/uL (3.8-10.6) 09/19/19 06:07 RBC 3.72 m/uL (4.30-5.90) L 09/19/19 06:07 Hgb 11.3 gm/dL (13.0-17.5) L 09/19/19 06:07 Hct 34.6 % (39.0-53.0) L 09/19/19 06:07 MCV 92.9 fL (80.0-100.0) 09/19/19 06:07 MCH 30.2 pg (25.0-35.0) 09/19/19 06:07 MCHC 32.5 g/dL (31.0-37.0) 09/19/19 06:07 RDW 13.3 % (11.5-15.5) 09/19/19 06:07 Plt Count 376 k/uL (150-450) 09/19/19 06:07 Neutrophils % 72 % 09/19/19 06:07 Lymphocytes % 17 % 09/19/19 06:07 Monocytes % 8 % 09/19/19 06:07 Eosinophils % 1 % 09/19/19 06:07 Basophils % 0 % 09/19/19 06:07 Neutrophils # 7.6 k/uL (1.3-7.7) 09/19/19 06:07 Lymphocytes # 1.8 k/uL (1.0-4.8) 09/19/19 06:07 Monocytes # 0.9 k/uL (0-1.0) 09/19/19 06:07 Eosinophils # 0.1 k/uL (0-0.7) 09/19/19 06:07 Basophils # 0.0 k/uL (0-0.2) 09/19/19 06:07 PT 10.4 sec (9.0-12.0) 08/31/19 01:55 INR 1.0 (<1.2) 08/31/19 01:55 APTT 22.1 sec (22.0-30.0) 08/31/19 01:55 Sample Site rrad 09/06/19 16:12 ABG pH 7.43 (7.35-7.45) 09/06/19 16:12 ABG pCO2 37 mmHg (35-45) 09/06/19 16:12 ABG pO2 88 mmHg (83-108) 09/06/19 16:12 ABG HCO3 24 mmol/L (21-25) 09/06/19 16:12 ABG Total CO2 26 mmol/L (19-24) H 09/06/19 16:12 ABG O2 Saturation 97.1 % (94-97) H 09/06/19 16:12 ABG Base Excess 0.2 mmol/L 09/06/19 16:12 Job Test Yes 09/06/19 16:12 FiO2 28 % 09/06/19 16:12 Sodium 135 mmol/L (137-145) L 09/19/19 06:07 Potassium 5.3 mmol/L (3.5-5.1) H 09/19/19 06:07 Chloride 97 mmol/L (98-107) L 09/19/19 06:07 Carbon Dioxide 26 mmol/L (22-30) 09/19/19 06:07 Anion Gap 12 mmol/L 09/19/19 06:07 BUN 23 mg/dL (9-20) H 09/19/19 06:07 Creatinine 2.78 mg/dL (0.66-1.25) H 09/19/19 06:07 Est GFR (CKD-EPI)AfAm 24 (>60 ml/min/1.73 sqM) 09/19/19 06:07 Est GFR (CKD-EPI)NonAf 21 (>60 ml/min/1.73 sqM) 09/19/19 06:07 Glucose 146 mg/dL (74-99) H 09/19/19 06:07 POC Glucose (mg/dL) 113 mg/dL (75-99) H 09/19/19 20:46 POC Glu Rand Cementer ID Elina Johnson 09/19/19 20:[address] Glu mg/dL 206 09/01/19 06:30 Hemoglobin A1c 8.8 % (4.0-6.0) H 09/01/19 06:30 Lactic Ac Sepsis Rflx Y 08/31/19 02:45 Plasma Lactic Acid Riley 0.7 mmol/L (0.7-2.0) 09/06/19 16:44 Calcium 9.4 mg/dL (8.4-10.2) 09/19/19 06:07 Total Bilirubin 0.4 mg/dL (0.2-1.3) 09/09/19 06:50 AST 15 U/L (17-59) L 09/09/19 06:50 ALT 8 U/L (21-72) L 09/09/19 06:50 Alkaline Phosphatase 74 U/L (38-126) 09/09/19 06:50 Troponin I 0.018 ng/mL (0.000-0.034) 08/31/19 01:55 Total Protein 5.5 g/dL (6.3-8.2) L 09/09/19 06:50 Albumin 2.5 g/dL (3.5-5.0) L 09/09/19 06:50 Urine Color Yellow 08/31/19 02:48 Urine Appearance Cloudy (Clear) 08/31/19 02:48 Urine pH 5.5 (5.0-8.0) 08/31/19 02:48 Ur Specific [place] 1.015 (1.001-1.035) 08/31/19 02:48 Urine Protein 1+ (Negative) H 08/31/19 02:48 Urine Glucose (UA) 2+ (Negative) H 08/31/19 02:48 Urine Ketones Negative (Negative) 08/31/19 02:48 Urine Blood Trace (Negative) H 08/31/19 02:48 Urine Nitrite Negative (Negative) 08/31/19 02:48 Urine Bilirubin Negative (Negative) 08/31/19 02:48 Urine Urobilinogen <2.0 mg/dL (<2.0) 08/31/19 02:48 Ur Leukocyte Esterase Large (Negative) H 08/31/19 02:48 Urine RBC 2 /hpf (0-5) 08/31/19 02:48 Urine WBC 176 /hpf (0-5) H 08/31/19 02:48 Urine WBC Clumps Many /hpf (None) H 08/31/19 02:48 Ur Squamous Epith Cells <1 /hpf (0-4) 08/31/19 02:48 Urine Bacteria Rare /hpf (None) H 08/31/19 02:48 Hyaline Casts 3 /lpf (0-2) H 08/31/19 02:48 Urine Mucus Rare /hpf (None) H 08/31/19 02:48 Urine Yeast (Budding) Few /hpf (None) H 08/31/19 02:48 Gentamicin Peak 5.0 ug/mL 09/09/19 09:32 Gentamicin Trough 1.4 ug/mL 09/11/19 13:01 Vancomycin Trough 14.9 ug/mL 09/05/19 06:35 Influenza Type A RNA Not Detected (Not Detectd) 08/31/19 01:55 Influenza Type B (PCR) Not Detected (Not Detectd) 08/31/19 01:55 Microbiology 09/15/19 08:22 Blood Blood Culture - Preliminary No Growth after 96 hours 09/15/19 07:40 Blood Blood Culture - Preliminary No Growth after 96 hours 09/14/19 06:51 Blood Blood Culture - Preliminary No Growth after 120 hours 09/13/19 07:00 Blood Blood Culture Gram Stain - Final 09/13/19 07:00 Blood Blood Culture - Final Methicillin resist S. aureus 09/13/19 07:18 Blood Blood Culture Gram Stain - Final 09/13/19 07:18 Blood Blood Culture - Final Methicillin resist S. aureus 09/13/19 07:00 Blood Blood Culture - Final 09/13/19 07:18 Blood Blood Culture - Final 09/10/19 06:29 Blood Blood Culture Gram Stain - Final 09/10/19 06:29 Blood Blood Culture - Final Methicillin resist S. aureus 09/09/19 06:50 Blood Blood Culture Gram Stain - Final 09/09/19 06:50 Blood Blood Culture - Final Methicillin resist S. aureus 09/10/19 06:29 Blood Blood Culture - Final 09/08/19 08:00 Blood Blood Culture Gram Stain - Final 09/08/19 08:00 Blood Blood Culture - Final Methicillin resist S. aureus 09/09/19 06:50 Blood Blood Culture - Final 09/07/19 06:28 Blood Blood Culture Gram Stain - Final 09/07/19 06:28 Blood Blood Culture - Final Methicillin resist S. aureus 09/08/19 08:00 Blood Blood Culture - Final 09/06/19 07:19 Blood Blood Culture Gram Stain - Final 09/06/19 07:19 Blood Blood Culture - Final Methicillin resist S. aureus 09/07/19 06:28 Blood Blood Culture - Final 09/06/19 07:19 Blood Blood Culture - Final 09/04/19 05:54 Blood Blood Culture Gram Stain - Final 09/04/19 05:54 Blood Blood Culture - Final Methicillin resist S. aureus 09/03/19 06:39 Blood Blood Culture Gram Stain - Final 09/03/19 06:39 Blood Blood Culture - Final Methicillin resist S. aureus 08/31/19 02:48 Urine,Clean Catch Urine Culture - Final Summer glabrata 08/31/19 22:29 Blood Blood Culture Gram Stain - Final 08/31/19 22:29 Blood Blood Culture - Final Methicillin resist S. aureus 08/31/19 22:03 Blood Blood Culture Gram Stain - Final 08/31/19 22:03 Blood Blood Culture - Final Methicillin resist S. aureus 09/04/19 05:54 Blood Blood Culture - Final 09/03/19 06:39 Blood Blood Culture - Final 08/31/19 01:55 Blood Blood Culture Gram Stain - Final 08/31/19 01:55 Blood Blood Culture - Final Methicillin resist S. aureus 08/31/19 22:03 Blood Blood Culture - Final 08/31/19 22:29 Blood Blood Culture - Final 08/31/19 01:55 Blood Blood Culture - Final Assessment and Plan (1) Bacteremia Narrative/Plan: 79-year-old male who has a history of diabetes, Parkinson's disease and history of bladder cancer that has been treated with surgical intervention as well as intravesicular treatment. He now presents with a worsening of his status showing evidence of a high-grade fever, leukocytosis, elevated lactic acid which are all consistent with recurrent sepsis from urinary system in this debilitated gentleman. Antibiotic therapy was begun with vancomycin based on his recent urine cultures that showed evidence of MRSA and enterococcus that was not vancomycin resistant. There is evidence of the positive blood culture with gram-positive cocci. The patient has had an echocardiogram done earlier this year without evidence of any severe valvular disease. At this time with continued vancomycin therapy. Will request follow blood cultures to be performed to evaluate clearance of bacteremia with treatment of antibiotic therapy. With the development of bacteremia will need outpatient intravenous antibiotic therapy. The lower extremities evidence of chronic edema but there does not appear to be any open ulcerations or cellulitis, local care with elevation and compression stockings could be helpful. 09/02/2019 patient is bit stronger, but has evidence of ongoing positive blood cultures. Conservatively to urinary source and ultrasound of the kidneys has been requested to evaluate for any type of obstruction problem or renal abscess. Also perinephric abscess. By November vancomycin continues. We'll follow blood cultures again tomorrow to see be certain occurs bacteremia with therapy. He 15 feels slightly better but still has ongoing acute illness at this time. 09/05/2019 the patient remains chronically ill feeling somewhat poorly. He is having improvement of his fever but there remains ongoing positive blood cultures. With this we'll transition vancomycin to daptomycin and high-dose. We'll monitor a weekly CK level. Once we have clearance of his bacteremia will need some type of IV access to allow treatment post hospital stay. The etiology of the ongoing bacteremia could be the clots within the left atrium and may require a longer time for clearance of his bacteremia. There is no evidence of any urinary source as noted by the relatively normal renal ultrasound. Patient does feel somewhat better than admission and hopefully be able to start with the discharge plan. 09/06/2019 the patient had SAL performed that shows evidence of the left atrial clot in this is the likely etiology of his persistent bacteremia. Antibiotic therapy was altered yesterday to high-dose daptomycin with evidence of vancomycin failure. We'll continue to monitor and follow blood cultures are reportedly been performed. The patient however is much more sedated today. He has not really arousing very well. Concerns are brought to the nurse to contact the hospitalist to ensure that this has not been a significant change of his st atus which is concerning because of his persistent bacteremia and left atrial clot. 09/07/2019 the patient remains significantly ill with ongoing bacteremia, ongoing altered mentation but is hematologically stable. Antibiotic therapy continues with daptomycin which was just changed and will add a few doses of gentamicin to try to clear the bacteremia. It appears that the clot in the left atrium is the nidus for the current and ongoing bacteremia. His prognosis is poor and appropriately has been made no code at this point in time. If bacteremia clears he will then require 6 weeks of intravenous antibiotic therapy and rehab facility. 09/09/2019 the patient has some improvement of his status today. His mentation is definitely improved since his last evaluation. However he continues evidence of positive blood cultures. Antibiotic therapy is ready been transitioned from vancomycin to high-dose daptomycin. Despite this there are still some positive blood cultures. Gentamicin was added but he with this there appears to be some positive blood cultures. We'll add Rocephin and attempt for further synergistic bacteriocidal effect the try to clear his bacteremia. He is on Sinemet and is not a candidate for Zyvox therapy. The patient fortunately is feeling somewhat better, has no fever and leukocytosis is improved over time. Follow cultures are being followed. 09/11/2019 the patient is with some further improvement today. He was up with a walker transferring from the bed to chair. He was generally unassisted except with a walker. He is feeling slightly better. Still feels quite poorly overall. We discussed the ongoing bacteremia despite the combination of antibiotics at this time. So far he has failed vancomycin, combination of vancomycin and gentamicin, accommodation of daptomycin and gentamicin, Rocephin was also added to a combination of try to further obtain some synergy which has not been effective. The daptomycin will be transitioned to linezolide, the staff is instructed about the importance of following his blood pressure should be monitored through his infusion. Interaction is possible because of the medications but with his failure of all attempts so far is required at this time. The 09/12/2019 the patient is a bit sleepy today but continues to have some improvement. He has noted the patient has ongoing bacteremia on the basis of his left atrial appendage clot that is infected with MRSA. Multiple antibiotic regimens have been tried. He has now been placed on Zyvox were awaiting some follow-up blood cultures to see if this will allow clearance of his bacteremia that was not clear despite combination of multiple prior antibiotics. Patient does seem to be stable and feeling slightly better. She's had no toxicity from the addition of the Zyvox. 09/13/2019 the patient is more awake and interactive today. Evidence of his chronic pain he is doing a bit better today appetite is fair. Nursing staff relates in no acute issues. Follow blood cultures are process and so far her negative however there just several hours old. Hopefully with the current change of antibiotic therapy to Zyvox to have clearance of his persistent michelle teremia from the left atrial clot. 09/14/2019 patient seems to be in better spirits today. Seems to be feeling better and is having a visit with his . Melbadene very well and patient's is encouraged to bring some food from home which may stimulate his appetite. Blood culture has now turned positive again for what appears to be staph. However it considerably longer for this blood culture did become positive hopefully signaling that the bacteremia will be responding to the current antibiotic therapy changed to Zyvox. This will continue with follow blood cultures are again requested. Zyvox continues. His acute kidney injury is being monitored. He is receiving his anticoagulation regarding the left atrial clot it appears to be the focus of his ongoing bacteremia. 09/15/2019 the blood culture has again become positive but it has taken nearly 48 hours to become positive which is the longest lag time we've had so far and blood cultures becoming positive. We'll continue Zyvox and follow cultures are process which will hopefully be negative and allow the discharge plan to proceed with his many weeks of Zyvox will be planned. He is definitely feeling better at this time. 09/16/2019 the patient is doing somewhat better today. Interestingly appears there is finally evidence of clearance of his bacteremia. We have blood cultures now greater than 24 hours they remain negative for MRSA. The Zyvox therapy which has been the last series of antibiotics appears to have finally allowed clearance the bacteremia. If he's been ready for transfer to the rehab facility to ensure that they will allow Zyvox at the facility, it can be oral at 600 mg twice per day. He will receive at least 6 weeks. He'll 09/19/2019 the patient has now had some improvement in this continues. Importantly the bacteremia which was present for so many days has now cleared with the utilization of Zyvox. Working with the discharge planners to ensure that he gets 6 weeks of Zyvox 600 mg orally twice per day will be required given his current situation. The patient will need to follow-up with Dr. Bueno in the office for further infectious disease evaluations, he should follow there in 3 a nd 6 weeks. The left atrial clot appears to be the etiology of the persistence of the bacteremia that has now improved. Current Visit: Yes Status: Acute Code(s): R78.81 - BACTEREMIA SNOMED Code(s): 1901315 (2) Urinary tract infection Current Visit: Yes Status: Acute Code(s): N39.0 - URINARY TRACT INFECTION, SITE NOT SPECIFIED SNOMED Code(s): 27518343 (3) Leukocytosis Current Visit: Yes Status: Acute Code(s): D72.829 - ELEVATED WHITE BLOOD CELL COUNT, UNSPECIFIED SNOMED Code(s): 464093737 (4) Acute sepsis Current Visit: Yes Status: Acute Code(s): A41.9 - SEPSIS, UNSPECIFIED ORGANISM SNOMED Code(s): 48976995
[2019-09-20] MEDS: LEVOTHYROXINE 100 MCG TAB PO SCH (05:06)
[2019-09-20 06:44] LABS: Glucose,Whole Blood 141 mg/dL (75-99)
[2019-09-20 07:37] LABS: Calcium 9.2 mg/dL (8.4-10.2); Potassium 5.4 mmol/L (3.5-5.1)
[2019-09-20] MEDS: LINEZOLID 600 MG TAB PO SCH ×2 (07:52→21:39)
[2019-09-20] MEDS: INSULIN ASPART (NovoLOG) 100 UNIT/ML VIAL SQ SCH ×4 (07:52→21:40)
[2019-09-20] MEDS: LISINOPRIL 20 MG TAB PO SCH (07:53)
[2019-09-20] MEDS: amLODIPine 10 MG TAB PO SCH (07:53)
[2019-09-20] MEDS: APIXABAN 5 MG TAB PO SCH ×2 (07:53→21:39)
[2019-09-20] MEDS: CARBIDOPA-LEVODOPA 25-100 MG 1 EACH TAB PO SCH ×3 (07:53→21:39)
[2019-09-20] MEDS: METOPROLOL TARTRATE 25 MG TAB PO SCH ×2 (07:53→21:39)
[2019-09-20] MEDS: ALLOPURINOL 100 MG TAB PO SCH (07:53)
[2019-09-20] MEDS: SODIUM CHLORIDE 0.9% 1,000 ML IV SCH ×2 (08:26→21:40)
--- NOTE | 2019-09-20 10:33 | P.PN ---
Subjective Progress Note Date: 09/20/19 Principal diagnosis: 73-year-old male came in because of possible Infection as patient felt quite weak and lethargic found to have high-grade fever found to be septic with the lactic acidosis. Patient does take Lasix at home regimen of history of congestive heart failure. Patient does have Parkinson's and is on carbidopa levodopa for that. Patient lowered himself to Because of Generalized Weakness. Patient Chest X-Ray Did Not Show Pneumonia but Urine Is Significant Abnormality Patient Does Have History of UTI in the past Patient Has Enterococcus Which Is Resistant to Penicillin but Sensitive to Vancomycin. Patient Also Had MRSA UTI in the past. Urine Cultures Blood Cultures Were Obtained. 09/01/2019 Patient is lying in bed in no acute distress with no acute overnight issues. Patient states that he continues to feel weak and has been working with PT/OT. Infectious disease is following. Patient's blood cultures have resulted with presumptive MRSA and repeat blood cultures are pending at this time. Patient is currently on IV antibiotics in the form of ceftriaxone and vancomycin and will continue at this time. Patient denies any chest pain, shortness of breath, or palpitations. Patient has been afebrile. Patient denies any nausea or vomiting and is tolerating diet. Patient states that he has been falling more frequently at home in case management and social work are following for discharge planning as the patient may require rehab upon discharge. Will continue to monitor closely. 09/02/2019 Patient is lying in bed in no acute distress with no acute overnight issues. Repeat blood cultures have shown presumptive MRSA. Infectious disease is f ollowing. Patient is having some right knee pain an x-ray was done showing no fracture nor dislocation and joint spaces are normal with no signs of joint effusion. Patient is currently on IV antibiotics in the form of vancomycin and will continue at this time. Patient is on gentle IV hydration at 75mL/hr his creatinine is improving and is currently 1.56. White blood count is trending down and is currently 11.3. Will repeat a.m. labs. Cardiology is consulted and is pending at this time. Will continue to monitor vital signs and labs closely. 09/03/2019 Patient had persistent bacteremia will obtain ultrasound of the kidney to rule out any perinephric abscess along with the possible endocarditis. Patient is feeling a bit better today. Afebrile. 09/04/2019 Blood cultures from yesterday were negative. Patient will undergo SAL tomorrow ultrasound of the kidney did not show any perinephric abscess. Patient is feeling a little stronger today Constitutional: Denied any fatigue denied any fever. Cardio vascular: denied any chest pain, palpitations Gastrointestinal denied any nausea vomiting Pulmonary: Denied any shortness of breath cough Neurologic denied any new focal deficits 09/05/2019 Patient is lying in bed in no acute distress with no acute overnight issues. Patient is to undergo a SAL today around noon. Will await report. Patient is quite lethargic and continues to fall in and out of sleep while conversing. Currently patient denies any chest pain, shortness of breath, or palpitations. Patient is afebrile. Patient denies any nausea or vomiting and has been bryon erating diet. Patient states he is tired today. Blood cultures from yesterday have a preliminary reading of gram-positive cocci. Infectious disease is following. Will continue to monitor closely. 09/06/2019 Patient is sitting up in the chair in no acute distress with no acute overnight issues. Cardiology and infectious disease are following. Patient underwent a SAL yesterday showing no definite evidence of vegetations on the aortic valve and no vegetation noted on the mitral or tricuspid valves but did have a thrombus in the left atrial appendage that is about 1 cm in size. LV systolic function is normal and interatrial septum is intact. Patient was started on Eliquis and will continue at this time. Patient's blood cultures continue to show MRSA and will repeat blood cultures daily to monitor closely. Patient is currently on IV antibiotics in the form of daptomycin and will continue at this time. Vancomycin was discontinued. Currently patient denies any chest pain, shortness of breath, or palpitations. Patient has been afebrile. Patient denies any nausea or vomiting and has been tolerating diet. Patient States that he is urinating well with no issues but has not had a bowel movement in 3 days. Dulcolax was ordered. 09/07/2019 Patient is sitting up in the chair in no acute distress with no acute overnight issues. Family is at the bedside. Discussed with the family and patient at length today about CODE STATUS and patient's wishes are to be made a no code as he states "he does not want to be a vegetable something were to happen." Patient is much more awake and alert today and is sitting up having full conversation. Patient denies any chest pain, shortness of breath, or palpitations. Patient is afebrile. She denies any nausea or vomiting and is tolerating diet. Patient's repeat blood cultures continue to be positive and are showing gram-positive cocci. Patient continues to have elevated blood pressure and Norvasc 10 mg will be added today. Will continue to monitor closely. Patient is currently on IV antibiotics in the form of daptomycin and will continue at this time. Infectious disease is following. 09/08/2019 patient's last blood cultures that was positive at from of this month. Patient is still lethargic 09/09/2019 Patient remained is lethargic no significant change in his clinical condition patient is bit hypoglycemic today discontinue the pre-meal insulin will discontinue sliding scale insulin will cut down the Lantus dose. Patient blood cultures from are clear. Last positive blood cultures from the Nov ember Mr. Peterson is a 73-year-old male with chronic medical conditions including atrial flutter, congestive heart failure, COPD, diverticulitis, hypertension, thyroid disorder, bladder cancer coming into the hospital for fevers and lethargy. The workup for his fever with showed left atrial thrombus. And his blood cultures have been continuously positive for MRSA. Patient is currently on IV daptomycin , gentamicin and ceftriaxone as per DORETHA Childs recommendations. On 09/10/2019- as per the nursing staff report patient is more alert compared to yesterday. He complains of fatigue. Denies having any chest pain or difficulty in breathing. No cough. Denies having any fevers chills or rigors. No abdominal pain nausea vomiting or diarrhea. No dysuria or hematuria. His blood cultures from the are still positive for MRSA. On 09/11/2019 - as per the nursing staff report no acute events reported overnight. Patient is sitting up in a chair by the bedside. He is much more alert and awake compared to yesterday. Patient denies having any chest pain or palpitations. No cough or difficulty in breathing. No fevers chills or rigors. He mentions that his lower extremity edema is still there and he has been dealing with for a long time. Patient's blood cultures from of still positive for MRSA. ID Dr. Childs on board he change daptomycin to linezolid. oN 09/12/19 - Patient is lying in bed appears to be in no acute distress. Patient complains of generalized fatigue and weakness. Denies having any chest pain or palpitations. No weakness of his extremities. No fevers chills or rigors. No cough or difficulty breathing. On reviewing the labs patient's blood cultures from have been still positive for MRSA. He is currently on linezolid and ceftriaxone. 09/13/2019 Patient is sitting up in bed sleeping but easily arousable in no acute distress. No Acute overnight issues. Patient continues to have fatigue and weakness but is arousable. Patient able to answer questions and commands appropriately once a week. Currently patient denies any chest pain, shortness of breath, or palpitations. Patient is afebrile. Patient denies any nausea or vomiting and is tolerating diet. Infectious disease is following closely. Patient was recently transitioned to IV antibiotics in the form of Zyvox along with ceftriaxone. Most recent blood cultures continue to show positive for MRSA. Will await most recent blood culture repeats. 09/14/2019 Patient is sitting up in the bed in no acute distress. Repeat blood cultures preliminary showing gram-positive cocci. No acute overnight issues. Infectious disease is following closely. REVIEW OF SYSTEMS: Cardiovascular: No reports of chest pain or palpitations Respiratory: No reports of shortness of breath or cough Musculoskeletal: Reports of chronic back pain GI: No reports of nausea, vomiting, or diarrhea : No reports of dysuria or retention 09/15/2019 Patient is sitting up in the chair with no acute overnight issues. Repeat blood cultures from 09/13/2019 are showing Staphylococcus aureus. Will await for finalization. Infectious disease is following. Creatinine is slightly elevated at 1.75. Will repeat a.m. labs. 09/16/2019 Patient is sitting up in the chair in no acute distress. Denies any acute overnight issues. Repeat blood cultures from 09/13/2019 have finalized showing MRSA. Continued repeat cultures from 09/14 and 09/15 thus far have been negative. Creatinine today is 2.28. Will continue to closely monitor and repeat labs in the morning. 09/17/2019 Patient is currently sitting in the chair comfortably. No complaints of chest pain or worsening shortness of breath. Blood cultures showed no growth since 09 13 2019. Blood cultures on 09/13/2019 showed MRSA. Currently on Zyvox. Creatinine level is 2.51 today. Patient has been afebrile. Leukocytosis improved. ID is following. 09/18/2019 Patient is currently sitting in a chair comfortably. Blood cultures showed no growth since 10/14/2018. Currently on IV antibiotics. Renal function is fairly stable with creatinine level still elevated at 2.55. Patient is tolerating oral diet. Continued on gentle hydration. ID is following. Current medications reviewed 09/19/2019 Patient is sitting up in bed in no acute distress. Patient appears to be disheveled and continues to remove his gown. When talking with nursing staff patient fell this morning attempting to get up without help and landed on his buttock causing a small skin tear. Patient denies any other trauma at this time. CAT scan of the head was ordered and is negative at this time. Awaiting authorization for [facility] continue rehab. Creatinine slightly elevated today 2.78 and is currently on IV fluids at 50 miles per hour. Will repeat a.m. labs. The last 2 blood cultures have been negative thus far and patient is responding well to the Zyvox. Infectious disease is following. REVIEW OF SYSTEMS: Cardiovascular: No reports of chest pain or palpitations Respiratory: No reports of shortness of breath or cough Musculoskeletal: Reports of chronic back pain GI: No reports of nausea, vomiting, or diarrhea : No reports of dysuria or retention 09/20/2019 Patient is sitting up in bed in no acute distress with no acute overnight issues. Patient continues to be lethargic but is arousable and responds appropriately to commands once a week. Repeat labs today show creatinine is elevated at 3.36. Nephrology was consulted and is currently pending. Patient will be continued on IV antibiotic in the form of Zyvox at this time. Infectious disease is following. Will continue with gentle IV hydration of normal saline with a rate increase from 50 to 100 mL per hour. Will continue to monitor vital signs and labs closely. Patient has received authorization for [facility] for continued PT/OT therapy along with continued antibiotic therapy. Objective - Vital Signs Vital signs: Vital Signs Temp 98.3 F 09/20/19 08:00 Pulse 76 09/20/19 08:00 Resp 12 09/20/19 08:00 BP 133/65 09/20/19 08:00 Pulse Ox 93 L 09/20/19 08:00 Intake & Output 09/19/19 09/20/19 09/20/19 18:59 06:59 18:59 Intake Total 460 540 Balance 460 540 Weight 108 kg Intake: Oral 460 540 Other: # Voids 1 1 # Bowel Movements 1 - Exam GENERAL: The patient is alert and oriented x3. Well developed, well nourished. Patient is sleeping but easily arousable and appears in no acute distress. HEENT: Pupils are round and equally reacting to light. EOMI. No scleral icterus. No conjunctival pallor. Normocephalic, atraumatic. No pharyngeal erythema. No thyromegaly. CARDIOVASCULAR: S1 and S2 present. No murmurs, rubs, or gallops. PULMONARY: Chest is clear to auscultation, no wheezing or crackles. ABDOMEN: Soft, non-tender, non-distended, normoactive bowel sounds. No palpable organomegaly. MUSCULOSKELETAL: No joint swelling or deformity. EXTREMITIES: No cyanosis, clubbing, bilateral lower extremity and pedal edema noted. NEUROLOGICAL: Gross neurological examination did not reveal any focal deficits. SKIN: No rashes. No open ulcerations or lesions noted - Labs CBC & Chem 7: 09/19/19 06:07 09/20/19 06:20 Labs: Abnormal Lab Results - Last 24 Hours (Table) 09/19/19 09/19/19 09/19/19 Range/Units 11:58 17:03 20:46 Sodium (137-145) mmol/L Potassium (3.5-5.1) mmol/L Chloride (98-107) mmol/L BUN (9-20) mg/dL Creatinine (0.66-1.25) mg/dL Glucose (74-99) mg/dL POC Glucose (mg/dL) 179 H 172 H 113 H (75-99) mg/dL 09/20/19 09/20/19 Range/Units 06:20 06:41 Sodium 135 L (137-145) mmol/L Potassium 5.4 H (3.5-5.1) mmol/L Chloride 97 L (98-107) mmol/L BUN 30 H (9-20) mg/dL Creatinine 3.36 H (0.66-1.25) mg/dL Glucose 144 H (74-99) mg/dL POC Glucose (mg/dL) 141 H (75-99) mg/dL Microbiology - Last 24 Hours (Table) 09/14/19 06:51 Blood Culture - Final Blood No Growth after 144 hours 09/15/19 08:22 Blood Culture - Preliminary Blood No Growth after 96 hours 09/15/19 07:40 Blood Culture - Preliminary Blood No Growth after 96 hours Assessment and Plan Assessment: -Severe sepsis secondary to urinary tract infection Repeat blood cultures thus far from 09/14 and 09/15 have been negative. Patient's IV antibiotics have been switched to Zyvox and ceftriaxone. Infectious disease is following. -Extensive venous stasis dermatosis and bilateral pedal edema from venous stasis dermatosis Lasix will be held temporarily because of sepsis. -Gait dysfunction -Type 2 diabetes mellitus, uncontrolled -Generalized weakness secondary to sepsis -Hypertension -Parkinson's -Hypothyroidism -COPD without any acute exacerbation -Acute kidney injury: From sepsis and Lasix is contributing to his acute renal failure -Chronic kidney disease stage 2-3 -Diabetic peripheral neuropathy. Recommendations and discussion: Recommend to continue current medications, management, and symptomatic treatment. Infectious disease is following. Patient will continue on IV antibiotics in the form of Zyvox at this time. Repeat blood culture remained negative from 09/14 and 09/15. Creatinine today is 3.36. Will repeat am labs and monitor creatinine closely. Nephrology was consulted and is currently pending. Will continue to monitor closely. Case management and social work following as well for placement at subacute rehab once patient is discharged. Authorization for [facility] was obtained. Patient will need oral antibiotic therapy as well as continued PT/OT therapy for strength and mobility. Further recommendations to follow.
[2019-09-20 11:53] LABS: Glucose,Whole Blood 146 mg/dL (75-99)
[2019-09-20 17:00] LABS: Glucose,Whole Blood 272 mg/dL (75-99)
--- NOTE | 2019-09-20 20:00 | CONS ---
CONSULTATION REASON FOR CONSULT: Renal failure. HISTORY OF PRESENT ILLNESS: Patient is a 74-year-old male who was initially admitted to the hospital on 08/31/2019 with sepsis. He is found to have persistent MRSA bacteremia for which patient is currently on Zyvox. He also had urinary tract infection. However, urine culture grew Summer glabrata initially. Patient's blood cultures were positive for quite a number of days on initial admission. His current cultures are negative. The transesophageal echocardiogram was performed on 09/05/2019 which showed thrombus in the left atrial appendage, but no obvious vegetation was noted. Serum creatinine was 1.79 on initial admission. It came down to 1.18 on 09/09/2019 and has been progressively increasing up to 3.3 this morning. The patient had been on gentamicin. He was also on vancomycin and is currently on Zyvox. I do not see a significantly elevated vancomycin level. Patient is also maintained on SHIV inhibitors. Blood pressures have been borderline with systolic around 120s to 130s. No significant hypotension noted. The patient has been voiding on his own. 24 hour urine output documented at 250 mL. I am not sure this is accurate. PAST MEDICAL HISTORY: Significant for atrial flutter, CHF, COPD, type 2 diabetes, hypertension, hypothyroidism, previous history of diverticulitis, Parkinson disease, osteoarthritis, previous history of pneumonia and sepsis. PAST SURGICAL HISTORY: Adenoidectomy, cholecystectomy, tonsillectomy, cardioversion, removal of bladder tumor, cystoscopy treatments for bladder cancer, previous colonoscopy. SOCIAL HISTORY: Patient is a former smoker. No documented drug abuse. MEDICATIONS: Medications prior to admission included Sinemet, Synthroid, insulin, Lasix, lisinopril, Lopressor, Zyloprim, Drisdol, insulin. ALLERGIES: ASPIRIN, NSAIDs. EXAMINATION: Currently patient is in bed. He is arousable, lethargic. No acute distress. Blood pressure this morning was 133/65, heart rate 76 per minute, he is afebrile. Examination of the heart S1, S2. Examination of the lungs, bilateral breath sounds are heard. Decreased breath sounds at bases. Abdomen is soft, nontender. Examination of lower extremities shows no significant edema. DRIVING TEACHER exam cannot be performed in detail. Patient has been moving his extremities. LABS: Show sodium 135, potassium 5.4, chloride 97, BUN 30, creatinine 3.36, calcium 9.2. UA on August 31 showed trace blood, leukocyte esterase, WBCs 176. ASSESSMENT: 1. Acute kidney injury, acute tubular necrosis, currently nonoliguric. Rule out urine retention. I will also DC the lisinopril as blood pressure is borderline and patient is maintained on large dose of SHIV inhibitors. He is currently off vancomycin and gentamicin. May continue with the Zyvox for now. The patient is maintained on IV fluids. I will repeat a urinalysis. 2. Sepsis, lactic acidosis on initial admission with MRSA bacteremia which has been quite persistent. Currently, blood cultures are negative. They only recently became negative. Patient is maintained on Zyvox. 3. Hypertension, currently controlled. DC lisinopril. Continue with Norvasc. Add non selective beta blockers if blood pressure remains elevated. 4. Hyperkalemia associated with acute kidney injury. Rule out urine retention. PLAN: Check UA. Check ultrasound of the kidneys. Hold SHIV inhibitors. Repeat labs in a.m. Check post-void residual. Rule out urine retention in assessment also had hyperkalemia associated with acute kidney injury. Rule out urine retention. Thank you for this consultation. We will continue to follow the patient with you during his hospitalization. MMODL / IJN: [id number] /
[2019-09-20 21:03] LABS: Glucose,Whole Blood 213 mg/dL (75-99)
[2019-09-20] MEDS: INSULIN DETEMIR (LEVEMIR) 100 UNIT/ML SYR SQ SCH (21:39)
--- NOTE | 2019-09-21 00:30 | P.PN ---
Subjective Progress Note Date: 09/20/19 79-year-old male who lives in the family home with his spouse and grandchildren relates that he's been feeling poorly for a few days. He became very weak and actually lowered himself to the ground because he was so weak. EMS was called and he was brought to hospital. He was on evidence of a fever as well as leukocytosis and feeling quite poorly. Patient has a long-standing history of Parkinson's and is a limited historian. He denies severe pain at this time. 09/02/2019 patient remains a poor historian but he is a bit stronger and may have sitting up in the chair. He has no significant complaints. 09/05/2019 patient remains fatigued and feels ill but has been able to sit up in a chair, denies fevers or chills. SAL has now been performed. September 06 2019 the patient is sleepy and difficult to arouse this afternoon. His untouched lunch is next to him. His status is discussed with the nurse. He has been quite sleepy through the morning into the early afternoon. She will reassess if he does awaken make sure there some assistance in eating his meal. 09/07/2019 patient continues to be with ongoing sepsis and ongoing bacteremia despite antibiotic therapy and change of antibiotic therapy daptomycin. He is still very weak and ill which is quite different from his baseline. Discussion occurred with the primary care team yesterday. And the patient is now been appropriate and made no code is receiving ongoing aggressive interventions. September 10 the patient is more awake alert and interactive today. He seems to be modestly comfortable in is not complaining of severe pain. Laboratories reviewed he has evidence of ongoing bacteremia. Sep feels better was able to transfer to the chair unassisted except walker. no fevers feels poorly overall 09/12/2019 patient is fatigued today but no new acute troubles, appetite is adequate. 09/13/2019 the patient is more awake alert and interactive today. He continues to have a relatively good appetite no difficulty eating his dinner. No nausea or emesis. He does have some chronic back pain that is not acutely worse. 09/14/2019 patient sitting up in the chair and his is visiting. He is a bit more awake alert and interactive than he has been. He exhibits a mild sense of humor. Patient's is pleased but is concerned that he is not eating well. 09/15/2019 Patient is again showing some improvement today. He is up in the chair he is eating his lunch without difficulty and voices no severe discomfort. He is uncomfortable but is wondering when he will be well enough to be able to leave hospital. We discussed that he continues having ongoing bacteremic infection related to the left atrial clot that is infected. The cardiovascular team does not believe that they can remove the clot. 09/16/2019 the patient is feeling again better today. Sitting upright eating his meals as a brighter affect. Looking for to transitioning out of the hospital so that he can gain some strength. He is having no fevers or chills. No difficulty with current antibiotic therapy. 09/19/2019 the patient is having some further improvement. Sitting upright eating well and look forward to his transition out of hospital. Nursing staff relates that he was a bit sleepy today appears to be improved at this time. 09/20/2019 the patient has had some worsening of his status. He is now developed some progressive acute renal failure there appears to be multifactorial. Objective - Vital Signs Vital signs: Vital Signs Temp 97.4 F L 09/20/19 20:47 Pulse 64 09/20/19 20:47 Resp 16 09/20/19 20:47 BP 113/58 09/20/19 20:47 Pulse Ox 93 L 09/20/19 20:47 Intake & Output 09/20/19 09/20/19 09/21/19 06:59 18:59 06:59 Intake Total 540 800 150 Output Total 250 Balance 540 550 150 Intake: IV 800 Sodium Chloride 0.9% 1, 800 000 ml @ 100 mls/hr IV . Q10H UMAIR Rx#:[id number] Intake, IV Titration 150 Amount Sodium Chloride 0.9% 1, 150 000 ml @ 50 mls/hr IV . Q20H UMAIR Rx#:[id number] Oral 540 Output: Urine 250 Other: # Voids 1 1 # Bowel Movements 1 - Exam 79-year-old male who seems to be comfortable, visiting with his HEENT: Anicteric conjunctiva are pink and moist nasal mucosa grossly intact without significant lesions, there is no thrush. Has dentures Neck: The neck is supple without significant lymphadenopathy or thyromegaly. Lungs: There is symmetrical bilateral air entry with few crackles at the bases no significant wheezing Heart: Irregular with a soft S4. No murmur click or rub Abdomen: Mildly obese, Positive bowel sounds soft and nontender without palpable masses or organomegaly. There was no guarding or rebound. Extremities: The upper extremities have excellent pulses they are symmetric, no significant petechiae or telangiectasia. No splinter hemorrhages were noted. Lower extremities have evidence of extensive bilateral lower extremity edema, sk in is thickened toenails are untrimmed no open ulcerations are seen Neuro: Patient is sedated today does not hear well with the care team but daughter relates there was some minimal conversation hour ago. - Labs CBC & Chem 7: 09/19/19 06:07 09/20/19 06:20 Labs: Abnormal Lab Results - Last 24 Hours (Table) 09/20/19 09/20/19 09/20/19 Range/Units 06:20 06:41 11:51 Sodium 135 L (137-145) mmol/L Potassium 5.4 H (3.5-5.1) mmol/L Chloride 97 L (98-107) mmol/L BUN 30 H (9-20) mg/dL Creatinine 3.36 H (0.66-1.25) mg/dL Glucose 144 H (74-99) mg/dL POC Glucose (mg/dL) 141 H 146 H (75-99) mg/dL 09/20/19 09/20/19 Range/Units 16:59 21:01 Sodium (137-145) mmol/L Potassium (3.5-5.1) mmol/L Chloride (98-107) mmol/L BUN (9-20) mg/dL Creatinine (0.66-1.25) mg/dL Glucose (74-99) mg/dL POC Glucose (mg/dL) 272 H 213 H (75-99) mg/dL Microbiology - Last 24 Hours (Table) 09/15/19 08:22 Blood Culture - Preliminary Blood No Growth after 120 hours 09/15/19 07:40 Blood Culture - Preliminary Blood No Growth after 120 hours 09/14/19 06:51 Blood Culture - Final Blood No Growth after 144 hours Laboratory Results WBC 10.6 k/uL (3.8-10.6) 09/19/19 06:07 RBC 3.72 m/uL (4.30-5.90) L 09/19/19 06:07 Hgb 11.3 gm/dL (13.0-17.5) L 09/19/19 06:07 Hct 34.6 % (39.0-53.0) L 09/19/19 06:07 MCV 92.9 fL (80.0-100.0) 09/19/19 06:07 MCH 30.2 pg (25.0-35.0) 09/19/19 06:07 MCHC 32.5 g/dL (31.0-37.0) 09/19/19 06:07 RDW 13.3 % (11.5-15.5) 09/19/19 06:07 Plt Count 376 k/uL (150-450) 09/19/19 06:07 Neutrophils % 72 % 09/19/19 06:07 Lymphocytes % 17 % 09/19/19 06:07 Monocytes % 8 % 09/19/19 06:07 Eosinophils % 1 % 09/19/19 06:07 Basophils % 0 % 09/19/19 06:07 Neutrophils # 7.6 k/uL (1.3-7.7) 09/19/19 06:07 Lymphocytes # 1.8 k/uL (1.0-4.8) 09/19/19 06:07 Monocytes # 0.9 k/uL (0-1.0) 09/19/19 06:07 Eosinophils # 0.1 k/uL (0-0.7) 09/19/19 06:07 Basophils # 0.0 k/uL (0-0.2) 09/19/19 06:07 PT 10.4 sec (9.0-12.0) 08/31/19 01:55 INR 1.0 (<1.2) 08/31/19 01:55 APTT 22.1 sec (22.0-30.0) 08/31/19 01:55 Sample Site rrad 09/06/19 16:12 ABG pH 7.43 (7.35-7.45) 09/06/19 16:12 ABG pCO2 37 mmHg (35-45) 09/06/19 16:12 ABG pO2 88 mmHg (83-108) 09/06/19 16:12 ABG HCO3 24 mmol/L (21-25) 09/06/19 16:12 ABG Total CO2 26 mmol/L (19-24) H 09/06/19 16:12 ABG O2 Saturation 97.1 % (94-97) H 09/06/19 16:12 ABG Base Excess 0.2 mmol/L 09/06/19 16:12 Job Test Yes 09/06/19 16:12 FiO2 28 % 09/06/19 16:12 Sodium 135 mmol/L (137-145) L 09/20/19 06:20 Potassium 5.4 mmol/L (3.5-5.1) H 09/20/19 06:20 Chloride 97 mmol/L (98-107) L 09/20/19 06:20 Carbon Dioxide 29 mmol/L (22-30) 09/20/19 06:20 Anion Gap 9 mmol/L 09/20/19 06:20 BUN 30 mg/dL (9-20) H 09/20/19 06:20 Creatinine 3.36 mg/dL (0.66-1.25) H 09/20/19 06:20 Est GFR (CKD-EPI)AfAm 19 (>60 ml/min/1.73 sqM) 09/20/19 06:20 Est GFR (CKD-EPI)NonAf 17 (>60 ml/min/1.73 sqM) 09/20/19 06:20 Glucose 144 mg/dL (74-99) H 09/20/19 06:20 POC Glucose (mg/dL) 213 mg/dL (75-99) H 09/20/19 21:01 POC Glu [employer]ent Ac[employer] Director DORETHA Elina Johnson 09/20/19 21:[address] Glu mg/dL 206 09/01/19 06:30 Hemoglobin A1c 8.8 % (4.0-6.0) H 09/01/19 06:30 Lactic Ac Sepsis Rflx Y 08/31/19 02:45 Plasma Lactic Acid [place] 0.7 mmol/L (0.7-2.0) 09/06/19 16:44 Calcium 9.2 mg/dL (8.4-10.2) 09/20/19 06:20 Total Bilirubin 0.4 mg/dL (0.2-1.3) 09/09/19 06:50 AST 15 U/L (17-59) L 09/09/19 06:50 ALT 8 U/L (21-72) L 09/09/19 06:50 Alkaline Phosphatase 74 U/L (38-126) 09/09/19 06:50 Troponin I 0.018 ng/mL (0.000-0.034) 08/31/19 01:55 Total Protein 5.5 g/dL (6.3-8.2) L 09/09/19 06:50 Albumin 2.5 g/dL (3.5-5.0) L 09/09/19 06:50 Urine Color Yellow 08/31/19 02:48 Urine Appearance Cloudy (Clear) 08/31/19 02:48 Urine pH 5.5 (5.0-8.0) 08/31/19 02:48 Ur Specific [place] 1.015 (1.001-1.035) 08/31/19 02:48 Urine Protein 1+ (Negative) H 08/31/19 02:48 Urine Glucose (UA) 2+ (Negative) H 08/31/19 02:48 Urine Ketones Negative (Negative) 08/31/19 02:48 Urine Blood Trace (Negative) H 08/31/19 02:48 Urine Nitrite Negative (Negative) 08/31/19 02:48 Urine Bilirubin Negative (Negative) 08/31/19 02:48 Urine Urobilinogen <2.0 mg/dL (<2.0) 08/31/19 02:48 Ur Leukocyte Esterase Large (Negative) H 08/31/19 02:48 Urine RBC 2 /hpf (0-5) 08/31/19 02:48 Urine WBC 176 /hpf (0-5) H 08/31/19 02:48 Urine WBC Clumps Many /hpf (None) H 08/31/19 02:48 Ur Squamous Epith Cells <1 /hpf (0-4) 08/31/19 02:48 Urine Bacteria Rare /hpf (None) H 08/31/19 02:48 Hyaline Casts 3 /lpf (0-2) H 08/31/19 02:48 Urine Mucus Rare /hpf (None) H 08/31/19 02:48 Urine Yeast (Budding) Few /hpf (None) H 08/31/19 02:48 Gentamicin Peak 5.0 ug/mL 09/09/19 09:32 Gentamicin Trough 1.4 ug/mL 09/11/19 13:01 Vancomycin Trough 14.9 ug/mL 09/05/19 06:35 Influenza Type A RNA Not Detected (Not Detectd) 08/31/19 01:55 Influenza Type B (PCR) Not Detected (Not Detectd) 08/31/19 01:55 Microbiology 09/15/19 08:22 Blood Blood Culture - Preliminary No Growth after 120 hours 09/15/19 07:40 Blood Blood Culture - Preliminary No Growth after 120 hours 09/14/19 06:51 Blood Blood Culture - Final No Growth after 144 hours 09/13/19 07:00 Blood Blood Culture Gram Stain - Final 09/13/19 07:00 Blood Blood Culture - Final Methicillin resist S. aureus 09/13/19 07:18 Blood Blood Culture Gram Stain - Final 09/13/19 07:18 Blood Blood Culture - Final Methicillin resist S. aureus 09/13/19 07:00 Blood Blood Culture - Final 09/13/19 07:18 Blood Blood Culture - Final 09/10/19 06:29 Blood Blood Culture Gram Stain - Final 09/10/19 06:29 Blood Blood Culture - Final Methicillin resist S. aureus 09/09/19 06:50 Blood Blood Culture Gram Stain - Final 09/09/19 06:50 Blood Blood Culture - Final Methicillin resist S. aureus 09/10/19 06:29 Blood Blood Culture - Final 09/08/19 08:00 Blood Blood Culture Gram Stain - Final 09/08/19 08:00 Blood Blood Culture - Final Methicillin resist S. aureus 09/09/19 06:50 Blood Blood Culture - Final 09/07/19 06:28 Blood Blood Culture Gram Stain - Final 09/07/19 06:28 Blood Blood Culture - Final Methicillin resist S. aureus 09/08/19 08:00 Blood Blood Culture - Final 09/06/19 07:19 Blood Blood Culture Gram Stain - Final 09/06/19 07:19 Blood Blood Culture - Final Methicillin resist S. aureus 09/07/19 06:28 Blood Blood Culture - Final 09/06/19 07:19 Blood Blood Culture - Final 09/04/19 05:54 Blood Blood Culture Gram Stain - Final 09/04/19 05:54 Blood Blood Culture - Final Methicillin resist S. aureus 09/03/19 06:39 Blood Blood Culture Gram Stain - Final 09/03/19 06:39 Blood Blood Culture - Final Methicillin resist S. aureus 08/31/19 02:48 Urine,Clean Catch Urine Culture - Final Summer glabrata 08/31/19 22:29 Blood Blood Culture Gram Stain - Final 08/31/19 22:29 Blood Blood Culture - Final Methicillin resist S. aureus 08/31/19 22:03 Blood Blood Culture Gram Stain - Final 08/31/19 22:03 Blood Blood Culture - Final Methicillin resist S. aureus 09/04/19 05:54 Blood Blood Culture - Final 09/03/19 06:39 Blood Blood Culture - Final 08/31/19 01:55 Blood Blood Culture Gram Stain - Final 08/31/19 01:55 Blood Blood Culture - Final Methicillin resist S. aureus 08/31/19 22:03 Blood Blood Culture - Final 08/31/19 22:29 Blood Blood Culture - Final 08/31/19 01:55 Blood Blood Culture - Final Assessment and Plan (1) Bacteremia Narrative/Plan: 79-year-old male who has a history of diabetes, Parkinson's disease and history of bladder cancer that has been treated with surgical intervention as well as intravesicular treatment. He now presents with a worsening of his status showing evidence of a high-grade fever, leukocytosis, elevated lactic acid which are all consistent with recurrent sepsis from urinary system in this debilitated gentleman. Antibiotic therapy was begun with vancomycin based on his recent urine cultures that showed evidence of MRSA and enterococcus that was not vancomycin resistant. There is evidence of the positive blood culture with gram-positive cocci. The patient has had an echocardiogram done earlier this year without evidence of any severe valvular disease. At this time with continued vancomycin therapy. Will request follow blood cultures to be performed to evaluate clearance of bacteremia with treatment of antibiotic therapy. With the development of bacteremia will need outpatient intravenous antibiotic therapy. The lower extremities evidence of chronic edema but there does not appear to be any open ulcerations or cellulitis, local care with elevation and compression s tockings could be helpful. 09/02/2019 patient is bit stronger, but has evidence of ongoing positive blood cultures. Conservatively to urinary source and ultrasound of the kidneys has been requested to evaluate for any type of obstruction problem or renal abscess. Also perinephric abscess. By November vancomycin continues. We'll follow blood cultures again tomorrow to see be certain occurs bacteremia with therapy. He 15 feels slightly better but still has ongoing acute illness at this time. 09/05/2019 the patient remains chronically ill feeling somewhat poorly. He is having improvement of his fever but there remains ongoing positive blood cultures. With this we'll transition vancomycin to daptomycin and high-dose. We'll monitor a weekly CK level. Once we have clearance of his bacteremia will need some type of IV access to allow treatment post hospital stay. The etiology of the ongoing bacteremia could be the clots within the left atrium and may require a longer time for clearance of his bacteremia. There is no evidence of any urinary source as noted by the relatively normal renal ultrasound. Patient does feel somewhat better than admission and hopefully be able to start with the discharge plan. 09/06/2019 the patient had SAL performed that shows evidence of the left atrial clot in this is the likely etiology of his persistent bacteremia. Antibiotic therapy was altered yesterday to high-dose daptomycin with evidence of vancomycin failure. We'll continue to monitor and follow blood cultures are reportedly been performed. The patient however is much more sedated today. He has not really arousing very well. Concerns are brought to the nurse to contact the hospitalist to ensure that this has not been a significant change of his status which is concerning because of his persistent bacteremia and left atrial clot. 09/07/2019 the patient remains significantly ill with ongoing bacteremia, ongoing altered mentation but is hematologically stable. Antibiotic therapy continues with daptomycin which was just changed and will add a few doses of gentamicin to try to clear the bacteremia. It appears that the clot in the left atrium is the nidus for the current and ongoing bacteremia. His prognosis is poor and appropriately has been made no code at this point in time. If bacteremia clears he will then require 6 weeks of intravenous antibiotic therapy and rehab facility. 09/09/2019 the patient has some improvement of his status today. His mentation is definitely improved since his last evaluation. However he continues evidence of positive blood cultures. Antibiotic therapy is ready been transitioned from vancomycin to high-dose daptomycin. Despite this there are still some positive blood cultures. Gentamicin was added but he with this there appears to be some positive blood cultures. We'll add Rocephin and attempt for further synergistic bacteriocidal effect the try to clear his bacteremia. He is on Sinemet and is not a candidate for Zyvox therapy. The patient fortunately is feeling somewhat better, has no fever and leukocytosis is improved over time. Follow cultures are being followed. 09/11/2019 the patient is with some further improvement today. He was up with a walker transferring from the bed to chair. He was generally unassisted except with a walker. He is feeling slightly better. Still feels quite poorly overall. We discussed the ongoing bacteremia despite the combination of antibiotics at this time. So far he has failed vancomycin, combination of vancomycin and gentamicin, accommodation of daptomycin and gentamicin, Rocephin was also added to a combination of try to further obtain some synergy which has not been effective. The daptomycin will be transitioned to linezolide, the staff is instructed about the importance of following his blood pressure should be monitored through his infusion. Interaction is possible because of the medications but with his failure of all attempts so far is required at this time. The 09/12/2019 the patient is a bit sleepy today but continues to have some improvement. He has noted the patient has ongoing bacteremia on the basis of his left atrial appendage clot that is infected with MRSA. Multiple antibiotic regimens have been tried. He has now been placed on Zyvox were awaiting some follow-up blood cultures to see if this will allow clearance of his bacteremia t hat was not clear despite combination of multiple prior antibiotics. Patient does seem to be stable and feeling slightly better. She's had no toxicity from the addition of the Zyvox. 09/13/2019 the patient is more awake and interactive today. Evidence of his chronic pain he is doing a bit better today appetite is fair. Nursing staff relates in no acute issues. Follow blood cultures are process and so far her negative however there just several hours old. Hopefully with the current change of antibiotic therapy to Zyvox to have clearance of his persistent bacteremia from the left atrial clot. 09/14/2019 patient seems to be in better spirits today. Seems to be feeling better and is having a visit with his . [place] very well and patient's is encouraged to bring some food from home which may stimulate his appetite. Blood culture has now turned positive again for what appears to be staph. However it considerably longer for this blood culture did become positive hopefully signaling that the bacteremia will be responding to the current antibiotic therapy changed to Zyvox. This will continue with follow blood cultures are again requested. Zyvox continues. His acute kidney injury is being monitored. He is receiving his anticoagulation regarding the left atrial clot it appears to be the focus of his ongoing bacteremia. 09/15/2019 the blood culture has again become positive but it has taken nearly 48 hours to become positive which is the longest lag time we've had so far and blood cultures becoming positive. We'll continue Zyvox and follow cultures are process which will hopefully be negative and allow the discharge plan to proceed with his many weeks of Zyvox will be planned. He is definitely feeling better at this time. 09/16/2019 the patient is doing somewhat better today. Interestingly appears there is finally evidence of clearance of his bacteremia. We have blood cultures now greater than 24 hours they remain negative for MRSA. The Zyvox therapy which has been the last series of antibiotics appears to have finally allowed clearance the bacteremia. If he's been ready for transfer to the rehab facility to ensure that they will allow Zyvox at the facility, it can be oral at 600 mg twice per day. He will receive at least 6 weeks. He'll 09/19/2019 the patient has now had some improvement in this continues. Importantly the bacteremia which was present for so many days has now cleared with the utilization of Zyvox. Working with the discharge planners to ensure that he gets 6 weeks of Zyvox 600 mg orally twice per day will be required given his current situation. The patient will need to follow-up with Dr. Bueno in the office for further infectious disease evaluations, he should follow there in 3 and 6 weeks. The left atrial clot appears to be the etiology of the persistence of the bacteremia that has now improved. 09/20/2019 the patient is having improvement in his Bactrim is finally cleared. He is now having acute renal failure which is causing some change of his mental status. He does acknowledge me when I entered the room and sleeps the rest of the exam. The acute renal failure appears to multifactorial including his uncontrolled infection with his persistent bacteremia with multiple antibiotics including vancomycin and gentamicin. He is now on Zyvox. Oral Zyvox will continue in these being seen by nephrology to have any further plans. Family is aware of his poor status. Current Visit: Yes Status: Acute Code(s): R78.81 - BACTEREMIA SNOMED Code(s): 2337595 (2) Urinary tract infection Current Visit: Yes Status: Acute Code(s): N39.0 - URINARY TRACT INFECTION, SITE NOT SPECIFIED SNOMED Code(s): 75294309 (3) Leukocytosis Current Visit: Yes Status: Acute Code(s): D72.829 - ELEVATED WHITE BLOOD CELL COUNT, UNSPECIFIED SNOMED Code(s): 814347111 (4) Acute sepsis Current Visit: Yes Status: Acute Code(s): A41.9 - SEPSIS, UNSPECIFIED ORGANISM SNOMED Code(s): 12931235
[2019-09-21] MEDS: LEVOTHYROXINE 100 MCG TAB PO SCH (04:44)
[2019-09-21] MEDS: SODIUM CHLORIDE 0.9% 1,000 ML IV SCH ×3 (04:44→23:53)
[2019-09-21 06:49] LABS: Glucose,Whole Blood 132 mg/dL (75-99)
[2019-09-21 07:19] LABS: Calcium 8.9 mg/dL (8.4-10.2); Potassium 4.4 mmol/L (3.5-5.1)
[2019-09-21] MEDS: ALLOPURINOL 100 MG TAB PO SCH (08:44)
[2019-09-21] MEDS: APIXABAN 5 MG TAB PO SCH ×2 (08:44→20:26)
[2019-09-21] MEDS: amLODIPine 10 MG TAB PO SCH (08:44)
[2019-09-21] MEDS: CARBIDOPA-LEVODOPA 25-100 MG 1 EACH TAB PO SCH ×3 (08:44→20:50)
[2019-09-21] MEDS: LINEZOLID 600 MG TAB PO SCH ×2 (08:44→20:26)
[2019-09-21] MEDS: METOPROLOL TARTRATE 25 MG TAB PO SCH ×2 (08:44→20:25)
[2019-09-21] MEDS: INSULIN ASPART (NovoLOG) 100 UNIT/ML VIAL SQ SCH ×4 (08:45→20:26)
[2019-09-21 11:04] LABS: Glucose,Whole Blood 205 mg/dL (75-99)
--- NOTE | 2019-09-21 14:58 | P.PN ---
Subjective Progress Note Date: 09/21/19 Principal diagnosis: 73-year-old male came in because of possible Infection as patient felt quite weak and lethargic found to have high-grade fever found to be septic with the lactic acidosis. Patient does take Lasix at home regimen of history of congestive heart failure. Patient does have Parkinson's and is on carbidopa levodopa for that. Patient lowered himself to Because of Generalized Weakness. Patient Chest X-Ray Did Not Show Pneumonia but Urine Is Significant Abnormality Patient Does Have History of UTI in the past Patient Has Enterococcus Which Is Resistant to Penicillin but Sensitive to Vancomycin. Patient Also Had MRSA UTI in the past. Urine Cultures Blood Cultures Were Obtained. 09/01/2019 Patient is lying in bed in no acute distress with no acute overnight issues. Patient states that he continues to feel weak and has been working with PT/OT. Infectious disease is following. Patient's blood cultures have resulted with presumptive MRSA and repeat blood cultures are pending at this time. Patient is currently on IV antibiotics in the form of ceftriaxone and vancomycin and will continue at this time. Patient denies any chest pain, shortness of breath, or palpitations. Patient has been afebrile. Patient denies any nausea or vomiting and is tolerating diet. Patient states that he has been falling more frequently at home in case management and social work are following for discharge planning as the patient may require rehab upon discharge. Will continue to monitor closely. 09/02/2019 Patient is lying in bed in no acute distress with no acute overnight issues. Repeat blood cultures have shown presumptive MRSA. Infectious disease is f ollowing. Patient is having some right knee pain an x-ray was done showing no fracture nor dislocation and joint spaces are normal with no signs of joint effusion. Patient is currently on IV antibiotics in the form of vancomycin and will continue at this time. Patient is on gentle IV hydration at 75mL/hr his creatinine is improving and is currently 1.56. White blood count is trending down and is currently 11.3. Will repeat a.m. labs. Cardiology is consulted and is pending at this time. Will continue to monitor vital signs and labs closely. 09/03/2019 Patient had persistent bacteremia will obtain ultrasound of the kidney to rule out any perinephric abscess along with the possible endocarditis. Patient is feeling a bit better today. Afebrile. 09/04/2019 Blood cultures from yesterday were negative. Patient will undergo SAL tomorrow ultrasound of the kidney did not show any perinephric abscess. Patient is feeling a little stronger today Constitutional: Denied any fatigue denied any fever. Cardio vascular: denied any chest pain, palpitations Gastrointestinal denied any nausea vomiting Pulmonary: Denied any shortness of breath cough Neurologic denied any new focal deficits 09/05/2019 Patient is lying in bed in no acute distress with no acute overnight issues. Patient is to undergo a SAL today around noon. Will await report. Patient is quite lethargic and continues to fall in and out of sleep while conversing. Currently patient denies any chest pain, shortness of breath, or palpitations. Patient is afebrile. Patient denies any nausea or vomiting and has been bryon erating diet. Patient states he is tired today. Blood cultures from yesterday have a preliminary reading of gram-positive cocci. Infectious disease is following. Will continue to monitor closely. 09/06/2019 Patient is sitting up in the chair in no acute distress with no acute overnight issues. Cardiology and infectious disease are following. Patient underwent a SAL yesterday showing no definite evidence of vegetations on the aortic valve and no vegetation noted on the mitral or tricuspid valves but did have a thrombus in the left atrial appendage that is about 1 cm in size. LV systolic function is normal and interatrial septum is intact. Patient was started on Eliquis and will continue at this time. Patient's blood cultures continue to show MRSA and will repeat blood cultures daily to monitor closely. Patient is currently on IV antibiotics in the form of daptomycin and will continue at this time. Vancomycin was discontinued. Currently patient denies any chest pain, shortness of breath, or palpitations. Patient has been afebrile. Patient denies any nausea or vomiting and has been tolerating diet. Patient States that he is urinating well with no issues but has not had a bowel movement in 3 days. Dulcolax was ordered. 09/07/2019 Patient is sitting up in the chair in no acute distress with no acute overnight issues. Family is at the bedside. Discussed with the family and patient at length today about CODE STATUS and patient's wishes are to be made a no code as he states "he does not want to be a vegetable something were to happen." Patient is much more awake and alert today and is sitting up having full conversation. Patient denies any chest pain, shortness of breath, or palpitations. Patient is afebrile. She denies any nausea or vomiting and is tolerating diet. Patient's repeat blood cultures continue to be positive and are showing gram-positive cocci. Patient continues to have elevated blood pressure and Norvasc 10 mg will be added today. Will continue to monitor closely. Patient is currently on IV antibiotics in the form of daptomycin and will continue at this time. Infectious disease is following. 09/08/2019 patient's last blood cultures that was positive at from of this month. Patient is still lethargic 09/09/2019 Patient remained is lethargic no significant change in his clinical condition patient is bit hypoglycemic today discontinue the pre-meal insulin will discontinue sliding scale insulin will cut down the Lantus dose. Patient blood cultures from are clear. Last positive blood cultures from the Nov ember Mr. Peterson is a 73-year-old male with chronic medical conditions including atrial flutter, congestive heart failure, COPD, diverticulitis, hypertension, thyroid disorder, bladder cancer coming into the hospital for fevers and lethargy. The workup for his fever with showed left atrial thrombus. And his blood cultures have been continuously positive for MRSA. Patient is currently on IV daptomycin , gentamicin and ceftriaxone as per DORETHA Childs recommendations. On 09/10/2019- as per the nursing staff report patient is more alert compared to yesterday. He complains of fatigue. Denies having any chest pain or difficulty in breathing. No cough. Denies having any fevers chills or rigors. No abdominal pain nausea vomiting or diarrhea. No dysuria or hematuria. His blood cultures from the are still positive for MRSA. On 09/11/2019 - as per the nursing staff report no acute events reported overnight. Patient is sitting up in a chair by the bedside. He is much more alert and awake compared to yesterday. Patient denies having any chest pain or palpitations. No cough or difficulty in breathing. No fevers chills or rigors. He mentions that his lower extremity edema is still there and he has been dealing with for a long time. Patient's blood cultures from of still positive for MRSA. ID Dr. Childs on board he change daptomycin to linezolid. oN 09/12/19 - Patient is lying in bed appears to be in no acute distress. Patient complains of generalized fatigue and weakness. Denies having any chest pain or palpitations. No weakness of his extremities. No fevers chills or rigors. No cough or difficulty breathing. On reviewing the labs patient's blood cultures from have been still positive for MRSA. He is currently on linezolid and ceftriaxone. 09/13/2019 Patient is sitting up in bed sleeping but easily arousable in no acute distress. No Acute overnight issues. Patient continues to have fatigue and weakness but is arousable. Patient able to answer questions and commands appropriately once a week. Currently patient denies any chest pain, shortness of breath, or palpitations. Patient is afebrile. Patient denies any nausea or vomiting and is tolerating diet. Infectious disease is following closely. Patient was recently transitioned to IV antibiotics in the form of Zyvox along with ceftriaxone. Most recent blood cultures continue to show positive for MRSA. Will await most recent blood culture repeats. 09/14/2019 Patient is sitting up in the bed in no acute distress. Repeat blood cultures preliminary showing gram-positive cocci. No acute overnight issues. Infectious disease is following closely. REVIEW OF SYSTEMS: Cardiovascular: No reports of chest pain or palpitations Respiratory: No reports of shortness of breath or cough Musculoskeletal: Reports of chronic back pain GI: No reports of nausea, vomiting, or diarrhea : No reports of dysuria or retention 09/15/2019 Patient is sitting up in the chair with no acute overnight issues. Repeat blood cultures from 09/13/2019 are showing Staphylococcus aureus. Will await for finalization. Infectious disease is following. Creatinine is slightly elevated at 1.75. Will repeat a.m. labs. 09/16/2019 Patient is sitting up in the chair in no acute distress. Denies any acute overnight issues. Repeat blood cultures from 09/13/2019 have finalized showing MRSA. Continued repeat cultures from 09/14 and 09/15 thus far have been negative. Creatinine today is 2.28. Will continue to closely monitor and repeat labs in the morning. 09/17/2019 Patient is currently sitting in the chair comfortably. No complaints of chest pain or worsening shortness of breath. Blood cultures showed no growth since 09 13 2019. Blood cultures on 09/13/2019 showed MRSA. Currently on Zyvox. Creatinine level is 2.51 today. Patient has been afebrile. Leukocytosis improved. ID is following. 09/18/2019 Patient is currently sitting in a chair comfortably. Blood cultures showed no growth since 10/14/2018. Currently on IV antibiotics. Renal function is fairly stable with creatinine level still elevated at 2.55. Patient is tolerating oral diet. Continued on gentle hydration. ID is following. Current medications reviewed 09/19/2019 Patient is sitting up in bed in no acute distress. Patient appears to be disheveled and continues to remove his gown. When talking with nursing staff patient fell this morning attempting to get up without help and landed on his buttock causing a small skin tear. Patient denies any other trauma at this time. CAT scan of the head was ordered and is negative at this time. Awaiting authorization for [facility] continue rehab. Creatinine slightly elevated today 2.78 and is currently on IV fluids at 50 miles per hour. Will repeat a.m. labs. The last 2 blood cultures have been negative thus far and patient is responding well to the Zyvox. Infectious disease is following. REVIEW OF SYSTEMS: Cardiovascular: No reports of chest pain or palpitations Respiratory: No reports of shortness of breath or cough Musculoskeletal: Reports of chronic back pain GI: No reports of nausea, vomiting, or diarrhea : No reports of dysuria or retention 09/20/2019 Patient is sitting up in bed in no acute distress with no acute overnight issues. Patient continues to be lethargic but is arousable and responds appropriately to commands once a week. Repeat labs today show creatinine is elevated at 3.36. Nephrology was consulted and is currently pending. Patient will be continued on IV antibiotic in the form of Zyvox at this time. Infectious disease is following. Will continue with gentle IV hydration of normal saline with a rate increase from 50 to 100 mL per hour. Will continue to monitor vital signs and labs closely. Patient has received authorization for [facility] for continued PT/OT therapy along with continued antibiotic therapy. 09/21/2019 Patient is lying in bed and is sleeping but easily arousable and appears to be in no acute distress. No Acute overnight issues. at the bedside today and spoke with her about his recent lab values. Creatinine is slightly trending down and is currently 3.18 patient will continue on gentle IV hydration. Nephrology is following. Spoke with the nursing staff about attempting to obtain a urine specimen and to monitor for urinary retention. Patient continues to wear a brief and is incontinent at times has been getting up to the commode and only having contaminated specimens. Patient is currently maintained on IV antibiotics in the form of Zyvox and will continue at this time and we'll transition to oral Zyvox in the outpatient setting at [facility] on the [place]. Discussed with the that if the creatinine continues to trend down and nephrology clears the patient will be able to go to [facility]. Objective - Vital Signs Vital signs: Vital Signs Temp 97.8 F 09/21/19 14:34 Pulse 64 09/21/19 14:34 Resp 16 09/21/19 14:34 BP 144/70 09/21/19 14:34 Pulse Ox 96 09/21/19 14:34 Intake & Output 09/20/19 09/21/19 09/21/19 18:59 06:59 18:59 Intake Total 800 550 420 Output Total 250 Balance 550 550 420 Intake: IV 800 Sodium Chloride 0.9% 1, 800 000 ml @ 100 mls/hr IV . Q10H UMAIR Rx#:[id number] Intake, IV Titration 550 Amount Sodium Chloride 0.9% 1, 550 000 ml @ 50 mls/hr IV . Q20H UMAIR Rx#:[id number] Oral 420 Output: Urine 250 Other: # Voids 1 1 1 # Bowel Movements 1 - Exam GENERAL: The patient is alert and oriented x3. Well developed, well nourished. Patient is sleeping but easily arousable and appears in no acute distress. HEENT: Pupils are round and equally reacting to light. EOMI. No scleral icterus. No conjunctival pallor. Normocephalic, atraumatic. No pharyngeal erythema. No thyromegaly. CARDIOVASCULAR: S1 and S2 present. No murmurs, rubs, or gallops. PULMONARY: Chest is clear to auscultation, no wheezing or crackles noted. ABDOMEN: Soft, non-tender, non-distended, normoactive bowel sounds. No palpable organomegaly. MUSCULOSKELETAL: No joint swelling or deformity. EXTREMITIES: No cyanosis, clubbing, mild bilateral lower extremity and pedal edema noted. NEUROLOGICAL: Gross neurological examination did not reveal any focal deficits. SKIN: No rashes. No open ulcerations or lesions noted - Labs CBC & Chem 7: 09/19/19 06:07 09/21/19 06:33 Labs: Abnormal Lab Results - Last 24 Hours (Table) 09/20/19 09/20/19 09/21/19 Range/Units 16:59 21:01 06:33 BUN 35 H (9-20) mg/dL Creatinine 3.18 H (0.66-1.25) mg/dL Glucose 130 H (74-99) mg/dL POC Glucose (mg/dL) 272 H 213 H (75-99) mg/dL 09/21/19 09/21/19 Range/Units 06:37 11:03 BUN (9-20) mg/dL Creatinine (0.66-1.25) mg/dL Glucose (74-99) mg/dL POC Glucose (mg/dL) 132 H 205 H (75-99) mg/dL Microbiology - Last 24 Hours (Table) 09/15/19 08:22 Blood Culture - Final Blood No Growth after 144 hours 09/15/19 07:40 Blood Culture - Final Blood No Growth after 144 hours Assessment and Plan Assessment: -Severe sepsis secondary to urinary tract infection Repeat blood cultures thus far from 09/14 and 09/15 have been negative. Patient's IV antibiotics have been switched to Zyvox and ceftriaxone. Infectious disease is following. -Extensive venous stasis dermatosis and bilateral pedal edema from venous stasis dermatosis Lasix will be held temporarily because of sepsis. -Gait dysfunction -Type 2 diabetes mellitus, uncontrolled -Generalized weakness secondary to sepsis -Hypertension -Parkinson's -Hypothyroidism -COPD without any acute exacerbation -Acute kidney injury: From sepsis and Lasix is contributing to his acute renal failure -Chronic kidney disease stage 2-3 -Diabetic peripheral neuropathy. Recommendations and discussion: Recommend to continue current medications, management, and symptomatic treatment. Infectious disease is following. Patient will continue on IV antibiotics in the form of Zyvox at this time. Repeat blood culture remained negative from 09/14 and 09/15. Creatinine today is 3.18. Will repeat am labs and monitor creatinine closely. Nephrology is following. Will continue to monitor closely. Case management and social work following as well for placement at subacute rehab once patient is discharged. Authorization for [facility] was obtained. Patient will need oral antibiotic therapy as well as continued PT/OT therapy for strength and mobility. Further recommendations to follow. Possible discharge in 24-48 hours.
--- NOTE | 2019-09-21 16:04 | PN ---
PROGRESS NOTE Patient is seen for followup for acute kidney injury. Patient has not had any urine retention. The angiotensin receptor blockers were discontinued yesterday. Serum creatinine is slightly improved from 3.3 down to 3.1 today. Patient is awake, comfortable. He is not in any acute distress. He has been eating. He remains on Zyvox for MRSA bacteremia. He is also maintained on IV fluids at 100 mL/hour. PHYSICAL EXAMINATION: On examination this morning, blood pressure was 121/59, heart rate 89 per minute. He is afebrile. EXAMINATION OF THE HEART: S1 and S2. EXAMINATION OF LUNGS: Bilateral breath sounds are heard. ABDOMEN: Soft, non-tender. Examination of lower extremities shows no significant edema. LABS: Sodium 138, potassium 4.4, chloride 100, BUN 35, creatinine 3.18, calcium 8.9. ASSESSMENT: 1. Acute kidney injury, acute tubular necrosis, currently nonoliguric with some improvement in renal function. Continue off of SHIV inhibitors. Continue with IV fluids. Repeat urinalysis was ordered. I do not see it done yet. Ultrasound of the bladder was done on initial admission on 09/03/2019 which did not reveal any hydronephrosis. Right kidney 9.6 cm, left kidney 11.0 cm. 2. Persistent methicillin-resistant Staphylococcus aeruginosa bacteremia, maintained on Zyvox, with repeat current blood cultures negative. SAL did not show any vegetation. 3. Type 2 diabetes. 4. Chronic kidney disease, stage III, with previous creatinine at 1.2 mg/dL in February of 2019 as well as December of 2018. Etiology is likely nephrosclerosis. UA this admission showed proteinuria and pyuria, but patient has had a UTI. PLAN: Continue IV fluids. Continue off of SHIV inhibitors. Repeat labs in a.m. Repeat UA. Avoid hypotension. MMODL / IJN: [id number] /
[2019-09-21 16:40] LABS: Glucose,Whole Blood 152 mg/dL (75-99)
[2019-09-21 20:12] LABS: Glucose,Whole Blood 207 mg/dL (75-99)
[2019-09-21] MEDS: INSULIN DETEMIR (LEVEMIR) 100 UNIT/ML SYR SQ SCH (20:26)
--- NOTE | 2019-09-21 23:15 | P.PN ---
Subjective Progress Note Date: 09/21/19 79-year-old male who lives in the family home with his spouse and grandchildren relates that he's been feeling poorly for a few days. He became very weak and actually lowered himself to the ground because he was so weak. EMS was called and he was brought to hospital. He was on evidence of a fever as well as leukocytosis and feeling quite poorly. Patient has a long-standing history of Parkinson's and is a limited historian. He denies severe pain at this time. 09/02/2019 patient remains a poor historian but he is a bit stronger and may have sitting up in the chair. He has no significant complaints. 09/05/2019 patient remains fatigued and feels ill but has been able to sit up in a chair, denies fevers or chills. SAL has now been performed. September 06 2019 the patient is sleepy and difficult to arouse this afternoon. His untouched lunch is next to him. His status is discussed with the nurse. He has been quite sleepy through the morning into the early afternoon. She will reassess if he does awaken make sure there some assistance in eating his meal. 09/07/2019 patient continues to be with ongoing sepsis and ongoing bacteremia despite antibiotic therapy and change of antibiotic therapy daptomycin. He is still very weak and ill which is quite different from his baseline. Discussion occurred with the primary care team yesterday. And the patient is now been appropriate and made no code is receiving ongoing aggressive interventions. September 10 the patient is more awake alert and interactive today. He seems to be modestly comfortable in is not complaining of severe pain. Laboratories reviewed he has evidence of ongoing bacteremia. Sep feels better was able to transfer to the chair unassisted except walker. no fevers feels poorly overall 09/12/2019 patient is fatigued today but no new acute troubles, appetite is adequate. 09/13/2019 the patient is more awake alert and interactive today. He continues to have a relatively good appetite no difficulty eating his dinner. No nausea or emesis. He does have some chronic back pain that is not acutely worse. 09/14/2019 patient sitting up in the chair and his is visiting. He is a bit more awake alert and interactive than he has been. He exhibits a mild sense of humor. Patient's is pleased but is concerned that he is not eating well. 09/15/2019 Patient is again showing some improvement today. He is up in the chair he is eating his lunch without difficulty and voices no severe discomfort. He is uncomfortable but is wondering when he will be well enough to be able to leave hospital. We discussed that he continues having ongoing bacteremic infection related to the left atrial clot that is infected. The cardiovascular team does not believe that they can remove the clot. 09/16/2019 the patient is feeling again better today. Sitting upright eating his meals as a brighter affect. Looking for to transitioning out of the hospital so that he can gain some strength. He is having no fevers or chills. No difficulty with current antibiotic therapy. 09/19/2019 the patient is having some further improvement. Sitting upright eating well and look forward to his transition out of hospital. Nursing staff relates that he was a bit sleepy today appears to be improved at this time. 09/20/2019 the patient has had some worsening of his status. He is now developed some progressive acute renal failure there appears to be multifactorial. 09/21/2019 patient is resting comfortably. Much of an appetite. Her systemic relates that no new acute changes throughout the day. Awaiting rehab placement. Objective - Vital Signs Vital signs: Vital Signs Temp 98.8 F 09/21/19 19:06 Pulse 70 09/21/19 19:06 Resp 16 09/21/19 19:06 BP 121/64 09/21/19 19:06 Pulse Ox 94 L 09/21/19 19:06 Intake & Output 09/21/19 09/21/19 09/22/19 06:59 18:59 06:59 Intake Total 550 420 Balance 550 420 Intake: Intake, IV Titration 550 Amount Sodium Chloride 0.9% 1, 550 000 ml @ 50 mls/hr IV . Q20H [facility] Rx#:[id number] Oral 420 Other: Voiding Method Diaper Incontinent # Voids 1 1 # Bowel Movements 1 1 - Exam 79-year-old male who seems to be comfortable, visiting with his HEENT: Anicteric conjunctiva are pink and moist nasal mucosa grossly intact without significant lesions, there is no thrush. Has dentures Neck: The neck is supple without significant lymphadenopathy or thyromegaly. Lungs: There is symmetrical bilateral air entry with few crackles at the bases no significant wheezing Heart: Irregular with a soft S4. No murmur click or rub Abdomen: Mildly obese, Positive bowel sounds soft and nontender without palpable masses or organomegaly. There was no guarding or rebound. Extremities: The upper extremities have excellent pulses they are symmetric, no significant petechiae or telangiectasia. No splinter hemorrhages were noted. Lower extremities have evidence of extensive bilateral lower extremity edema, skin is thickened toenails are untrimmed no open ulcerations are seen Neuro: Patient is sedated today does not hear well with the care team but daughter relates there was some minimal conversation hour ago. - Labs CBC & Chem 7: 09/19/19 06:07 09/21/19 06:33 Labs: Abnormal Lab Results - Last 24 Hours (Table) 09/21/19 09/21/19 09/21/19 Range/Units 06:33 06:37 11:03 BUN 35 H (9-20) mg/dL Creatinine 3.18 H (0.66-1.25) mg/dL Glucose 130 H (74-99) mg/dL POC Glucose (mg/dL) 132 H 205 H (75-99) mg/dL 09/21/19 09/21/19 Range/Units 16:39 20:11 BUN (9-20) mg/dL Creatinine (0.66-1.25) mg/dL Glucose (74-99) mg/dL POC Glucose (mg/dL) 152 H 207 H (75-99) mg/dL Microbiology - Last 24 Hours (Table) 09/15/19 08:22 Blood Culture - Final Blood No Growth after 144 hours 09/15/19 07:40 Blood Culture - Final Blood No Growth after 144 hours Laboratory Results WBC 10.6 k/uL (3.8-10.6) 09/19/19 06:07 RBC 3.72 m/uL (4.30-5.90) L 09/19/19 06:07 Hgb 11.3 gm/dL (13.0-17.5) L 09/19/19 06:07 Hct 34.6 % (39.0-53.0) L 09/19/19 06:07 MCV 92.9 fL (80.0-100.0) 09/19/19 06:07 MCH 30.2 pg (25.0-35.0) 09/19/19 06:07 MCHC 32.5 g/dL (31.0-37.0) 09/19/19 06:07 RDW 13.3 % (11.5-15.5) 09/19/19 06:07 Plt Count 376 k/uL (150-450) 09/19/19 06:07 Neutrophils % 72 % 09/19/19 06:07 Lymphocytes % 17 % 09/19/19 06:07 Monocytes % 8 % 09/19/19 06:07 Eosinophils % 1 % 09/19/19 06:07 Basophils % 0 % 09/19/19 06:07 Neutrophils # 7.6 k/uL (1.3-7.7) 09/19/19 06:07 Lymphocytes # 1.8 k/uL (1.0-4.8) 09/19/19 06:07 Monocytes # 0.9 k/uL (0-1.0) 09/19/19 06:07 Eosinophils # 0.1 k/uL (0-0.7) 09/19/19 06:07 Basophils # 0.0 k/uL (0-0.2) 09/19/19 06:07 PT 10.4 sec (9.0-12.0) 08/31/19 01:55 INR 1.0 (<1.2) 08/31/19 01:55 APTT 22.1 sec (22.0-30.0) 08/31/19 01:55 Sample Site rrad 09/06/19 16:12 ABG pH 7.43 (7.35-7.45) 09/06/19 16:12 ABG pCO2 37 mmHg (35-45) 09/06/19 16:12 ABG pO2 88 mmHg (83-108) 09/06/19 16:12 ABG HCO3 24 mmol/L (21-25) 09/06/19 16:12 ABG Total CO2 26 mmol/L (19-24) H 09/06/19 16:12 ABG O2 Saturation 97.1 % (94-97) H 09/06/19 16:12 ABG Base Excess 0.2 mmol/L 09/06/19 16:12 Job Test Yes 09/06/19 16:12 FiO2 28 % 09/06/19 16:12 Sodium 138 mmol/L (137-145) 09/21/19 06:33 Potassium 4.4 mmol/L (3.5-5.1) 09/21/19 06:33 Chloride 100 mmol/L (98-107) 09/21/19 06:33 Carbon Dioxide 29 mmol/L (22-30) 09/21/19 06:33 Anion Gap 9 mmol/L 09/21/19 06:33 BUN 35 mg/dL (9-20) H 09/21/19 06:33 Creatinine 3.18 mg/dL (0.66-1.25) H 09/21/19 06:33 Est GFR (CKD-EPI)AfAm 21 (>60 ml/min/1.73 sqM) 09/21/19 06:33 Est GFR (CKD-EPI)NonAf 18 (>60 ml/min/1.73 sqM) 09/21/19 06:33 Glucose 130 mg/dL (74-99) H 09/21/19 06:33 POC Glucose (mg/dL) 207 mg/dL (75-99) H 09/21/19 20:11 POC Glu Director Skills DORETHA Elina Johnson 09/21/19 20:[address] Glu mg/dL 206 09/01/19 06:30 Hemoglobin A1c 8.8 % (4.0-6.0) H 09/01/19 06:30 Lactic Ac Sepsis Rflx Y 08/31/19 02:45 Plasma Lactic Acid [place] 0.7 mmol/L (0.7-2.0) 09/06/19 16:44 Calcium 8.9 mg/dL (8.4-10.2) 09/21/19 06:33 Total Bilirubin 0.4 mg/dL (0.2-1.3) 09/09/19 06:50 AST 15 U/L (17-59) L 09/09/19 06:50 ALT 8 U/L (21-72) L 09/09/19 06:50 Alkaline Phosphatase 74 U/L (38-126) 09/09/19 06:50 Troponin I 0.018 ng/mL (0.000-0.034) 08/31/19 01:55 Total Protein 5.5 g/dL (6.3-8.2) L 09/09/19 06:50 Albumin 2.5 g/dL (3.5-5.0) L 09/09/19 06:50 Urine Color Yellow 08/31/19 02:48 Urine Appearance Cloudy (Clear) 08/31/19 02:48 Urine pH 5.5 (5.0-8.0) 08/31/19 02:48 Ur Specific [place] 1.015 (1.001-1.035) 08/31/19 02:48 Urine Protein 1+ (Negative) H 08/31/19 02:48 Urine Glucose (UA) 2+ (Negative) H 08/31/19 02:48 Urine Ketones Negative (Negative) 08/31/19 02:48 Urine Blood Trace (Negative) H 08/31/19 02:48 Urine Nitrite Negative (Negative) 08/31/19 02:48 Urine Bilirubin Negative (Negative) 08/31/19 02:48 Urine Urobilinogen <2.0 mg/dL (<2.0) 08/31/19 02:48 Ur Leukocyte Esterase Large (Negative) H 08/31/19 02:48 Urine RBC 2 /hpf (0-5) 08/31/19 02:48 Urine WBC 176 /hpf (0-5) H 08/31/19 02:48 Urine WBC Clumps Many /hpf (None) H 08/31/19 02:48 Ur Squamous Epith Cells <1 /hpf (0-4) 08/31/19 02:48 Urine Bacteria Rare /hpf (None) H 08/31/19 02:48 Hyaline Casts 3 /lpf (0-2) H 08/31/19 02:48 Urine Mucus Rare /hpf (None) H 08/31/19 02:48 Urine Yeast (Budding) Few /hpf (None) H 08/31/19 02:48 Gentamicin Peak 5.0 ug/mL 09/09/19 09:32 Gentamicin Trough 1.4 ug/mL 09/11/19 13:01 Vancomycin Trough 14.9 ug/mL 09/05/19 06:35 Influenza Type A RNA Not Detected (Not Detectd) 08/31/19 01:55 Influenza Type B (PCR) Not Detected (Not Detectd) 08/31/19 01:55 Microbiology 09/15/19 08:22 Blood Blood Culture - Final No Growth after 144 hours 09/15/19 07:40 Blood Blood Culture - Final No Growth after 144 hours 09/14/19 06:51 Blood Blood Culture - Final No Growth after 144 hours 09/13/19 07:00 Blood Blood Culture Gram Stain - Final 09/13/19 07:00 Blood Blood Culture - Final Methicillin resist S. aureus 09/13/19 07:18 Blood Blood Culture Gram Stain - Final 09/13/19 07:18 Blood Blood Culture - Final Methicillin resist S. aureus 09/13/19 07:00 Blood Blood Culture - Final 09/13/19 07:18 Blood Blood Culture - Final 09/10/19 06:29 Blood Blood Culture Gram Stain - Final 09/10/19 06:29 Blood Blood Culture - Final Methicillin resist S. aureus 09/09/19 06:50 Blood Blood Culture Gram Stain - Final 09/09/19 06:50 Blood Blood Culture - Final Methicillin resist S. aureus 09/10/19 06:29 Blood Blood Culture - Final 09/08/19 08:00 Blood Blood Culture Gram Stain - Final 09/08/19 08:00 Blood Blood Culture - Final Methicillin resist S. aureus 09/09/19 06:50 Blood Blood Culture - Final 09/07/19 06:28 Blood Blood Culture Gram Stain - Final 09/07/19 06:28 Blood Blood Culture - Final Methicillin resist S. aureus 09/08/19 08:00 Blood Blood Culture - Final 09/06/19 07:19 Blood Blood Culture Gram Stain - Final 09/06/19 07:19 Blood Blood Culture - Final Methicillin resist S. aureus 09/07/19 06:28 Blood Blood Culture - Final 09/06/19 07:19 Blood Blood Culture - Final 09/04/19 05:54 Blood Blood Culture Gram Stain - Final 09/04/19 05:54 Blood Blood Culture - Final Methicillin resist S. aureus 09/03/19 06:39 Blood Blood Culture Gram Stain - Final 09/03/19 06:39 Blood Blood Culture - Final Methicillin resist S. aureus 08/31/19 02:48 Urine,Clean Catch Urine Culture - Final [place] glabrata 08/31/19 22:29 Blood Blood Culture Gram Stain - Final 08/31/19 22:29 Blood Blood Culture - Final Methicillin resist S. aureus 08/31/19 22:03 Blood Blood Culture Gram Stain - Final 08/31/19 22:03 Blood Blood Culture - Final Methicillin resist S. aureus 09/04/19 05:54 Blood Blood Culture - Final 09/03/19 06:39 Blood Blood Culture - Final 08/31/19 01:55 Blood Blood Culture Gram Stain - Final 08/31/19 01:55 Blood Blood Culture - Final Methicillin resist S. aureus 08/31/19 22:03 Blood Blood Culture - Final 08/31/19 22:29 Blood Blood Culture - Final 08/31/19 01:55 Blood Blood Culture - Final Assessment and Plan (1) Bacteremia Narrative/Plan: 79-year-old male who has a history of diabetes, Parkinson's disease and history of bladder cancer that has been treated with surgical intervention as well as intravesicular treatment. He now presents with a worsening of his status showing evidence of a high-grade fever, leukocytosis, elevated lactic acid which are all consistent with recurrent sepsis from urinary system in this debilitated gentleman. Antibiotic therapy was begun with vancomycin based on his recent urine cultures that showed evidence of MRSA and enterococcus that was not vancomycin resistant. There is evidence of the positive blood culture with gram-positive cocci. The patient has had an echocardiogram done earlier this year without evidence of any severe valvular disease. At this time with continued vancomycin therapy. Will request follow blood cultures to be performed to evaluate clearance of bacteremia with treatment of antibiotic therapy. With the development of bacteremia will need outpatient intravenous antibiotic therapy. The lower extremities evidence of chronic edema but there does not appear to be any open ulcerations or cellulitis, local care with elevation and compression stockings could be helpful. 09/02/2019 patient is bit stronger, but has evidence of ongoing positive blood cultures. Conservatively to urinary source and ultrasound of the kidneys has been requested to evaluate for any type of obstruction problem or renal abscess. Also perinephric abscess. By November vancomycin continues. We'll follow blood cultures again tomorrow to see be certain occurs bacteremia with therapy. He 15 feels slightly better but still has ongoing acute illness at this time. 09/05/2019 the patient remains chronically ill feeling somewhat poorly. He is having improvement of his fever but there remains ongoing positive blood cultures. With this we'll transition vancomycin to daptomycin and high-dose. We'll monitor a weekly CK level. Once we have clearance of his bacteremia will need some type of IV access to allow treatment post hospital stay. The etiology of the ongoing bacteremia could be the clots within the left atrium and may require a longer time for clearance of his bacteremia. There is no evidence of any urinary source as noted by the relatively normal renal ultrasound. Patient does feel somewhat better than admission and hopefully be able to start with the discharge plan. 09/06/2019 the patient had SAL performed that shows evidence of the left atrial clot in this is the likely etiology of his persistent bacteremia. Antibiotic therapy was altered yesterday to high-dose daptomycin with evidence of vancomycin failure. We'll continue to monitor and follow blood cultures are rep ortedly been performed. The patient however is much more sedated today. He has not really arousing very well. Concerns are brought to the nurse to contact the hospitalist to ensure that this has not been a significant change of his status which is concerning because of his persistent bacteremia and left atrial clot. 09/07/2019 the patient remains significantly ill with ongoing bacteremia, ongoi ng altered mentation but is hematologically stable. Antibiotic therapy continues with daptomycin which was just changed and will add a few doses of gentamicin to try to clear the bacteremia. It appears that the clot in the left atrium is the nidus for the current and ongoing bacteremia. His prognosis is poor and appropriately has been made no code at this point in time. If bacteremia clears he will then require 6 weeks of intravenous antibiotic therapy and rehab facility. 09/09/2019 the patient has some improvement of his status today. His mentation is definitely improved since his last evaluation. However he continues evidence of positive blood cultures. Antibiotic therapy is ready been transitioned from vancomycin to high-dose daptomycin. Despite this there are still some positive blood cultures. Gentamicin was added but he with this there appears to be some positive blood cultures. We'll add Rocephin and attempt for further synergistic bacteriocidal effect the try to clear his bacteremia. He is on Sinemet and is not a candidate for Zyvox therapy. The patient fortunately is feeling somewhat better, has no fever and leukocytosis is improved over time. Follow cultures are being followed. 09/11/2019 the patient is with some further improvement today. He was up with a walker transferring from the bed to chair. He was generally unassisted except with a walker. He is feeling slightly better. Still feels quite poorly overall. We discussed the ongoing bacteremia despite the combination of antibiotics at this time. So far he has failed vancomycin, combination of vancomycin and gentamicin, accommodation of daptomycin and gentamicin, Rocephin was also added to a combination of try to further obtain some synergy which has not been effective. The daptomycin will be transitioned to linezolide, the staff is instructed about the importance of following his blood pressure should be monitored through his infusion. Interaction is possible because of the medications but with his failure of all attempts so far is required at this time. The 09/12/2019 the patient is a bit sleepy today but continues to have some improvement. He has noted the patient has ongoing bacteremia on the basis of his left atrial appendage clot that is infected with MRSA. Multiple antibiotic regimens have been tried. He has now been placed on Zyvox were awaiting some follow-up blood cultures to see if this will allow clearance of his bacteremia that was not clear despite combination of multiple prior antibiotics. Patient does seem to be stable and feeling slightly better. She's had no toxicity from the addition of the Zyvox. 09/13/2019 the patient is more awake and interactive today. Evidence of his chronic pain he is doing a bit better today appetite is fair. Nursing staff relates in no acute issues. Follow blood cultures are process and so far her negative however there just several hours old. Hopefully with the current change of antibiotic therapy to Zyvox to have clearance of his persistent bacteremia from the left atrial clot. 09/14/2019 patient seems to be in better spirits today. Seems to be feeling better and is having a visit with his . [place] very well and patient's is encouraged to bring some food from home which may stimulate his appetite. Blood culture has now turned positive again for what appears to be staph. However it considerably longer for this blood culture did become positive hopefully signaling that the bacteremia will be responding to the current antibiotic therapy changed to Zyvox. This will continue with follow blood cultures are again requested. Zyvox continues. His acute kidney injury is being monitored. He is receiving his anticoagulation regarding the left atrial clot it appears to be the focus of his ongoing bacteremia. 09/15/2019 the blood culture has again become positive but it has taken nearly 48 hours to become positive which is the longest lag time we've had so far and blood cultures becoming positive. We'll continue Zyvox and follow cultures are process which will hopefully be negative and allow the discharge plan to proceed with his many weeks of Zyvox will be planned. He is definitely feeling better at this time. 09/16/2019 the patient is doing somewhat better today. Interestingly appears there is finally evidence of clearance of his bacteremia. We have blood cultures now greater than 24 hours they remain negative for MRSA. The Zyvox therapy which has been the last series of antibiotics appears to have finally allowed clearance the bacteremia. If he's been ready for transfer to the rehab facility to ensure that they will allow Zyvox at the facility, it can be oral at 600 mg twice per day. He will receive at least 6 weeks. He'll 09/19/2019 the patient has now had some improvement in this continues. Importantly the bacteremia which was present for so many days has now cleared with the utilization of Zyvox. Working with the discharge planners to ensure that he gets 6 weeks of Zyvox 600 mg orally twice per day will be required given his current situation. The patient will need to follow-up with Dr. Bueno in the office for further infectious disease evaluations, he should follow there in 3 and 6 weeks. The left atrial clot appears to be the etiology of the persistence of the bacteremia that has now improved. 09/20/2019 the patient is having improvement in his Bactrim is finally cleared. He is now having acute renal failure which is causing some change of his mental status. He does acknowledge me when I entered the room and sleeps the rest of the exam. The acute renal failure appears to multifactorial including his uncontrolled infection with his persistent bacteremia with multiple antibiotics including vancomycin and gentamicin. He is now on Zyvox. Oral Zyvox will continue in these being seen by nephrology to have any further plans. Family is aware of his poor status. 09/21/2019 the patient's status remains poor however his acute failure seems to be improving and there is been no further increase in his creatinine. Continue to monitor him on Zyvox for the MRSA bacteremia and sepsis is responded well to antibiotic therapy. Likely his head difficulties with a plethora of antibiotics including vancomycin and gentamicin while we were trying to clear the bacteremia. [place] Zyvox while this point in time and will continue. Discharge plan is actively in process. He is followed by nephrology closely. Current Visit: Yes Status: Acute Code(s): R78.81 - BACTEREMIA SNOMED Code(s): 5983621 (2) Urinary tract infection Current Visit: Yes Status: Acute Code(s): N39.0 - URINARY TRACT INFECTION, SITE NOT SPECIFIED SNOMED Code(s): 98248960 (3) Leukocytosis Current Visit: Yes Status: Acute Code(s): D72.829 - ELEVATED WHITE BLOOD CELL COUNT, UNSPECIFIED SNOMED Code(s): 529254153 (4) Acute sepsis Current Visit: Yes Status: Acute Code(s): A41.9 - SEPSIS, UNSPECIFIED ORGANISM SNOMED Code(s): 98494135
[2019-09-22] MEDS: LEVOTHYROXINE 100 MCG TAB PO SCH (05:51)
[2019-09-22 06:38] LABS: Glucose,Whole Blood 89 mg/dL (75-99)
[2019-09-22] MEDS: INSULIN ASPART (NovoLOG) 100 UNIT/ML VIAL SQ SCH ×4 (07:41→22:29)
[2019-09-22 08:10] LABS: Calcium 9.1 mg/dL (8.4-10.2); Potassium 4.4 mmol/L (3.5-5.1)
[2019-09-22] MEDS: ALLOPURINOL 100 MG TAB PO SCH (09:43)
[2019-09-22] MEDS: LINEZOLID 600 MG TAB PO SCH ×2 (09:43→21:09)
[2019-09-22] MEDS: amLODIPine 10 MG TAB PO SCH (09:43)
[2019-09-22] MEDS: CARBIDOPA-LEVODOPA 25-100 MG 1 EACH TAB PO SCH ×3 (09:43→21:08)
[2019-09-22] MEDS: METOPROLOL TARTRATE 25 MG TAB PO SCH ×2 (09:43→21:09)
[2019-09-22] MEDS: APIXABAN 5 MG TAB PO SCH ×2 (09:45→21:09)
[2019-09-22 11:13] LABS: Glucose,Whole Blood 151 mg/dL (75-99)
[2019-09-22] MEDS: SODIUM CHLORIDE 0.9% 1,000 ML IV SCH ×2 (13:18→21:10)
--- NOTE | 2019-09-22 13:54 | P.PN ---
Subjective Progress Note Date: 09/22/19 Principal diagnosis: 73-year-old male came in because of possible Infection as patient felt quite weak and lethargic found to have high-grade fever found to be septic with the lactic acidosis. Patient does take Lasix at home regimen of history of congestive heart failure. Patient does have Parkinson's and is on carbidopa levodopa for that. Patient lowered himself to Because of Generalized Weakness. Patient Chest X-Ray Did Not Show Pneumonia but Urine Is Significant Abnormality Patient Does Have History of UTI in the past Patient Has Enterococcus Which Is Resistant to Penicillin but Sensitive to Vancomycin. Patient Also Had MRSA UTI in the past. Urine Cultures Blood Cultures Were Obtained. 09/01/2019 Patient is lying in bed in no acute distress with no acute overnight issues. Patient states that he continues to feel weak and has been working with PT/OT. Infectious disease is following. Patient's blood cultures have resulted with presumptive MRSA and repeat blood cultures are pending at this time. Patient is currently on IV antibiotics in the form of ceftriaxone and vancomycin and will continue at this time. Patient denies any chest pain, shortness of breath, or palpitations. Patient has been afebrile. Patient denies any nausea or vomiting and is tolerating diet. Patient states that he has been falling more frequently at home in case management and social work are following for discharge planning as the patient may require rehab upon discharge. Will continue to monitor closely. 09/02/2019 Patient is lying in bed in no acute distress with no acute overnight issues. Repeat blood cultures have shown presumptive MRSA. Infectious disease is f ollowing. Patient is having some right knee pain an x-ray was done showing no fracture nor dislocation and joint spaces are normal with no signs of joint effusion. Patient is currently on IV antibiotics in the form of vancomycin and will continue at this time. Patient is on gentle IV hydration at 75mL/hr his creatinine is improving and is currently 1.56. White blood count is trending down and is currently 11.3. Will repeat a.m. labs. Cardiology is consulted and is pending at this time. Will continue to monitor vital signs and labs closely. 09/03/2019 Patient had persistent bacteremia will obtain ultrasound of the kidney to rule out any perinephric abscess along with the possible endocarditis. Patient is feeling a bit better today. Afebrile. 09/04/2019 Blood cultures from yesterday were negative. Patient will undergo SAL tomorrow ultrasound of the kidney did not show any perinephric abscess. Patient is feeling a little stronger today Constitutional: Denied any fatigue denied any fever. Cardio vascular: denied any chest pain, palpitations Gastrointestinal denied any nausea vomiting Pulmonary: Denied any shortness of breath cough Neurologic denied any new focal deficits 09/05/2019 Patient is lying in bed in no acute distress with no acute overnight issues. Patient is to undergo a SAL today around noon. Will await report. Patient is quite lethargic and continues to fall in and out of sleep while conversing. Currently patient denies any chest pain, shortness of breath, or palpitations. Patient is afebrile. Patient denies any nausea or vomiting and has been bryon erating diet. Patient states he is tired today. Blood cultures from yesterday have a preliminary reading of gram-positive cocci. Infectious disease is following. Will continue to monitor closely. 09/06/2019 Patient is sitting up in the chair in no acute distress with no acute overnight issues. Cardiology and infectious disease are following. Patient underwent a SAL yesterday showing no definite evidence of vegetations on the aortic valve and no vegetation noted on the mitral or tricuspid valves but did have a thrombus in the left atrial appendage that is about 1 cm in size. LV systolic function is normal and interatrial septum is intact. Patient was started on Eliquis and will continue at this time. Patient's blood cultures continue to show MRSA and will repeat blood cultures daily to monitor closely. Patient is currently on IV antibiotics in the form of daptomycin and will continue at this time. Vancomycin was discontinued. Currently patient denies any chest pain, shortness of breath, or palpitations. Patient has been afebrile. Patient denies any nausea or vomiting and has been tolerating diet. Patient States that he is urinating well with no issues but has not had a bowel movement in 3 days. Dulcolax was ordered. 09/07/2019 Patient is sitting up in the chair in no acute distress with no acute overnight issues. Family is at the bedside. Discussed with the family and patient at length today about CODE STATUS and patient's wishes are to be made a no code as he states "he does not want to be a vegetable something were to happen." Patient is much more awake and alert today and is sitting up having full conversation. Patient denies any chest pain, shortness of breath, or palpitations. Patient is afebrile. She denies any nausea or vomiting and is tolerating diet. Patient's repeat blood cultures continue to be positive and are showing gram-positive cocci. Patient continues to have elevated blood pressure and Norvasc 10 mg will be added today. Will continue to monitor closely. Patient is currently on IV antibiotics in the form of daptomycin and will continue at this time. Infectious disease is following. 09/08/2019 patient's last blood cultures that was positive at from of this month. Patient is still lethargic 09/09/2019 Patient remained is lethargic no significant change in his clinical condition patient is bit hypoglycemic today discontinue the pre-meal insulin will discontinue sliding scale insulin will cut down the Lantus dose. Patient blood cultures from are clear. Last positive blood cultures from the Nov ember Mr. Peterson is a 73-year-old male with chronic medical conditions including atrial flutter, congestive heart failure, COPD, diverticulitis, hypertension, thyroid disorder, bladder cancer coming into the hospital for fevers and lethargy. The workup for his fever with showed left atrial thrombus. And his blood cultures have been continuously positive for MRSA. Patient is currently on IV daptomycin , gentamicin and ceftriaxone as per DORETHA Childs recommendations. On 09/10/2019- as per the nursing staff report patient is more alert compared to yesterday. He complains of fatigue. Denies having any chest pain or difficulty in breathing. No cough. Denies having any fevers chills or rigors. No abdominal pain nausea vomiting or diarrhea. No dysuria or hematuria. His blood cultures from the are still positive for MRSA. On 09/11/2019 - as per the nursing staff report no acute events reported overnight. Patient is sitting up in a chair by the bedside. He is much more alert and awake compared to yesterday. Patient denies having any chest pain or palpitations. No cough or difficulty in breathing. No fevers chills or rigors. He mentions that his lower extremity edema is still there and he has been dealing with for a long time. Patient's blood cultures from of still positive for MRSA. ID Dr. Childs on board he change daptomycin to linezolid. oN 09/12/19 - Patient is lying in bed appears to be in no acute distress. Patient complains of generalized fatigue and weakness. Denies having any chest pain or palpitations. No weakness of his extremities. No fevers chills or rigors. No cough or difficulty breathing. On reviewing the labs patient's blood cultures from have been still positive for MRSA. He is currently on linezolid and ceftriaxone. 09/13/2019 Patient is sitting up in bed sleeping but easily arousable in no acute distress. No Acute overnight issues. Patient continues to have fatigue and weakness but is arousable. Patient able to answer questions and commands appropriately once a week. Currently patient denies any chest pain, shortness of breath, or palpitations. Patient is afebrile. Patient denies any nausea or vomiting and is tolerating diet. Infectious disease is following closely. Patient was recently transitioned to IV antibiotics in the form of Zyvox along with ceftriaxone. Most recent blood cultures continue to show positive for MRSA. Will await most recent blood culture repeats. 09/14/2019 Patient is sitting up in the bed in no acute distress. Repeat blood cultures preliminary showing gram-positive cocci. No acute overnight issues. Infectious disease is following closely. REVIEW OF SYSTEMS: Cardiovascular: No reports of chest pain or palpitations Respiratory: No reports of shortness of breath or cough Musculoskeletal: Reports of chronic back pain GI: No reports of nausea, vomiting, or diarrhea : No reports of dysuria or retention 09/15/2019 Patient is sitting up in the chair with no acute overnight issues. Repeat blood cultures from 09/13/2019 are showing Staphylococcus aureus. Will await for finalization. Infectious disease is following. Creatinine is slightly elevated at 1.75. Will repeat a.m. labs. 09/16/2019 Patient is sitting up in the chair in no acute distress. Denies any acute overnight issues. Repeat blood cultures from 09/13/2019 have finalized showing MRSA. Continued repeat cultures from 09/14 and 09/15 thus far have been negative. Creatinine today is 2.28. Will continue to closely monitor and repeat labs in the morning. 09/17/2019 Patient is currently sitting in the chair comfortably. No complaints of chest pain or worsening shortness of breath. Blood cultures showed no growth since 09 13 2019. Blood cultures on 09/13/2019 showed MRSA. Currently on Zyvox. Creatinine level is 2.51 today. Patient has been afebrile. Leukocytosis improved. ID is following. 09/18/2019 Patient is currently sitting in a chair comfortably. Blood cultures showed no growth since 10/14/2018. Currently on IV antibiotics. Renal function is fairly stable with creatinine level still elevated at 2.55. Patient is tolerating oral diet. Continued on gentle hydration. ID is following. Current medications reviewed 09/19/2019 Patient is sitting up in bed in no acute distress. Patient appears to be disheveled and continues to remove his gown. When talking with nursing staff patient fell this morning attempting to get up without help and landed on his buttock causing a small skin tear. Patient denies any other trauma at this time. CAT scan of the head was ordered and is negative at this time. Awaiting authorization for [facility] continue rehab. Creatinine slightly elevated today 2.78 and is currently on IV fluids at 50 miles per hour. Will repeat a.m. labs. The last 2 blood cultures have been negative thus far and patient is responding well to the Zyvox. Infectious disease is following. REVIEW OF SYSTEMS: Cardiovascular: No reports of chest pain or palpitations Respiratory: No reports of shortness of breath or cough Musculoskeletal: Reports of chronic back pain GI: No reports of nausea, vomiting, or diarrhea : No reports of dysuria or retention 09/20/2019 Patient is sitting up in bed in no acute distress with no acute overnight issues. Patient continues to be lethargic but is arousable and responds appropriately to commands once a week. Repeat labs today show creatinine is elevated at 3.36. Nephrology was consulted and is currently pending. Patient will be continued on IV antibiotic in the form of Zyvox at this time. Infectious disease is following. Will continue with gentle IV hydration of normal saline with a rate increase from 50 to 100 mL per hour. Will continue to monitor vital signs and labs closely. Patient has received authorization for [facility] for continued PT/OT therapy along with continued antibiotic therapy. 09/21/2019 Patient is lying in bed and is sleeping but easily arousable and appears to be in no acute distress. No Acute overnight issues. at the bedside today and spoke with her about his recent lab values. Creatinine is slightly trending down and is currently 3.18 patient will continue on gentle IV hydration. Nephrology is following. Spoke with the nursing staff about attempting to obtain a urine specimen and to monitor for urinary retention. Patient continues to wear a brief and is incontinent at times has been getting up to the commode and only having contaminated specimens. Patient is currently maintained on IV antibiotics in the form of Zyvox and will continue at this time and we'll transition to oral Zyvox in the outpatient setting at [facility] [place]. Discussed with the that if the creatinine continues to trend down and nephrology clears the patient will be able to go to [facility]. 09/22/2019 Patient is sitting up in the chair much more alert and awake today having full conversation about his family in no acute distress. No acute overnight issues. Spoke with nursing staff about trying to obtain a urine sample as we have been unsuccessful thus far as he is sometimes incontinent and is brief or will urinate while using the commode that is contaminated with feces. A condom catheterization was attempted with no success. Will continue to attempt obtaining a specimen at this time. Nephrology is following closely. Patient is currently maintained on IV normal saline gentle hydration at 50-75 ML per hour and will continue at this time. Spoke with the today about his creatinine is elevated again at 3.22 and we will not be sending him to [facility] today. We'll continue to monitor labs closely. Patient was transitioned oral Zyvox and will continue this. Infectious disease is following. Objective - Vital Signs Vital signs: Vital Signs Temp 98.4 F 09/22/19 07:13 Pulse 57 L 09/22/19 07:13 Resp 16 09/22/19 07:42 BP 121/70 09/22/19 07:13 Pulse Ox 94 L 09/22/19 07:13 Intake & Output 09/21/19 09/22/19 09/22/19 18:59 06:59 18:59 Intake Total 420 240 650 Balance 420 240 650 Intake: Oral 420 240 650 Other: Voiding Method Diaper Incontinent # Voids 1 # Bowel Movements 1 1 1 - Exam GENERAL: The patient is alert and oriented x3. Well developed, well nourished. Patient is awake and alert and in no acute distress. HEENT: Pupils are round and equally reacting to light. EOMI. No scleral icterus. No conjunctival pallor. Normocephalic, atraumatic. No pharyngeal erythema. No thyromegaly. CARDIOVASCULAR: S1 and S2 present. No murmurs, rubs, or gallops. PULMONARY: Chest is clear to auscultation, no wheezing or crackles noted. ABDOMEN: Soft, non-tender, non-distended, normoactive bowel sounds. No palpable organomegaly. MUSCULOSKELETAL: No joint swelling or deformity. EXTREMITIES: No cyanosis, clubbing, mild bilateral lower extremity and pedal edema noted. NEUROLOGICAL: Gross neurological examination did not reveal any focal deficits. SKIN: No rashes. No open ulcerations or lesions noted - Labs CBC & Chem 7: 09/19/19 06:07 09/22/19 07:04 Labs: Abnormal Lab Results - Last 24 Hours (Table) 09/21/19 09/21/19 09/22/19 Range/Units 16:39 20:11 07:04 BUN 35 H (9-20) mg/dL Creatinine 3.22 H (0.66-1.25) mg/dL POC Glucose (mg/dL) 152 H 207 H (75-99) mg/dL 09/22/19 Range/Units 11:12 BUN (9-20) mg/dL Creatinine (0.66-1.25) mg/dL POC Glucose (mg/dL) 151 H (75-99) mg/dL Microbiology - Last 24 Hours (Table) 09/15/19 08:22 Blood Culture - Final Blood No Growth after 144 hours 09/15/19 07:40 Blood Culture - Final Blood No Growth after 144 hours Assessment and Plan Assessment: -Severe sepsis secondary to urinary tract infection Repeat blood cultures thus far from 09/14 and 09/15 have been negative. Patient's IV antibiotics have been transitioned to oral Zyvox . Infectious disease is following. -Extensive venous stasis dermatosis and bilateral pedal edema from venous stasis dermatosis Lasix will be held temporarily because of sepsis. -Gait dysfunction -Type 2 diabetes mellitus, uncontrolled -Generalized weakness secondary to sepsis -Hypertension -Parkinson's -Hypothyroidism -COPD without any acute exacerbation -Acute kidney injury: From sepsis and Lasix is contributing to his acute renal failure -Chronic kidney disease stage 2-3 -Diabetic peripheral neuropathy. Recommendations and discussion: Recommend to continue current medications, management, and symptomatic treatment. Infectious disease is following. Creatinine today is 3.22. Will repeat am labs and monitor creatinine closely. Nephrology is following. Will continue to monitor closely. Case management and social work following as well for placement at subacute rehab once patient is discharged. Authorization for [facility] the [address] was obtained. Patient will continue with oral antibiotic therapy in the form of Zyvox as well as continued PT/OT therapy for strength and mobility. Further recommendations to follow. Possible disc harge in 24-48 hours.
[2019-09-22 16:43] LABS: Glucose,Whole Blood 164 mg/dL (75-99)
--- NOTE | 2019-09-22 18:17 | PN ---
PROGRESS NOTE Patient is seen for followup for acute kidney injury. His serum creatinine is staying at about 3.1 to 3.2 mg/dL. It did go down from 3.36 two days ago. Patient does not have any urine retention. He is voiding on his own. Blood pressure is not significantly low. Patient is maintained on IV fluids. This morning patient is sitting out of bed. He is comfortable, denies any significant complaints. PHYSICAL EXAMINATION: On examination, blood pressure was 121/70, heart rate 57 per minute. He is afebrile. EXAMINATION OF THE HEART: S1 and S2. EXAMINATION OF LUNGS: Decreased breath sounds at bases. ABDOMEN: Soft, non-tender. Examination of lower extremities shows no significant edema. ON CALL PHARMACY TECHNICIAN exam is grossly intact. LABS: Sodium 138, potassium 4.4, chloride 103, BUN 35, creatinine 3.2 mg/dL. ASSESSMENT: 1. Acute kidney injury, acute tubular necrosis, nonoliguric; renal function stable for the last couple of days and slightly improved than 2 days ago. No nephrotoxic agents on board. Repeat urinalysis is still not done. I will check with nursing staff. No evidence of obstructive uropathy. 2. Persistent methicillin-resistant Staphylococcus aeruginosa bacteremia, maintained on Zyvox with repeat blood cultures currently negative. 3. Chronic kidney disease, stage III. Previous creatinine 1.2 in February of 2019 and December of 2018 secondary to nephrosclerosis. Repeat urinalysis. Ultrasound unremarkable. PLAN: Recheck UA. Continue IV fluids. Repeat labs in a.m. MMERNIE / ESSENCE: [id number] /
[2019-09-22 20:37] LABS: Glucose,Whole Blood 192 mg/dL (75-99)
[2019-09-22] MEDS: INSULIN DETEMIR (LEVEMIR) 100 UNIT/ML SYR SQ SCH (22:35)
[2019-09-23] MEDS: LEVOTHYROXINE 100 MCG TAB PO SCH (05:41)
[2019-09-23 07:14] LABS: Glucose,Whole Blood 84 mg/dL (75-99)
[2019-09-23] MEDS: INSULIN ASPART (NovoLOG) 100 UNIT/ML VIAL SQ SCH ×4 (07:54→20:55)
[2019-09-23] MEDS: LINEZOLID 600 MG TAB PO SCH ×2 (09:08→20:55)
[2019-09-23] MEDS: APIXABAN 5 MG TAB PO SCH ×2 (09:09→20:55)
[2019-09-23] MEDS: amLODIPine 10 MG TAB PO SCH (09:09)
[2019-09-23] MEDS: CARBIDOPA-LEVODOPA 25-100 MG 1 EACH TAB PO SCH ×3 (09:09→20:55)
[2019-09-23] MEDS: ALLOPURINOL 100 MG TAB PO SCH (09:09)
[2019-09-23] MEDS: METOPROLOL TARTRATE 25 MG TAB PO SCH ×2 (09:09→20:57)
[2019-09-23 10:39] LABS: Calcium 9.1 mg/dL (8.4-10.2)
[2019-09-23] MEDS: SODIUM CHLORIDE 0.9% 1,000 ML IV SCH ×2 (10:45→23:31)
[2019-09-23 10:50] LABS: Potassium 4.8 mmol/L (3.5-5.1)
[2019-09-23 11:14] LABS: Glucose,Whole Blood 95 mg/dL (75-99)
[2019-09-23 13:41] LABS: Appearance,Urine Clear (Clear); Bilirubin,Urine Negative (Negative); Blood,Urine Negative (Negative); Color,Urine Yellow; Glucose,Urine (UA) Negative (Negative); Ketones,Urine Negative (Negative); Leukocyte Esterase,Urine Moderate (Negative); Nitrite,Urine Negative (Negative); PH, Urine 6.5 (5.0-8.0); Protein,Urine 1+ (Negative); RBC,Urine 2 /hpf (0-5); Urobilinogen,Urine <2.0 mg/dL (<2.0); WBC,Urine 43 /hpf (0-5)
--- NOTE | 2019-09-23 15:14 | P.PN ---
<Aida Fisher - Last Filed: 09/23/19 15:09> Subjective Progress Note Date: 09/23/19 Principal diagnosis: 73-year-old male came in because of possible Infection as patient felt quite weak and lethargic found to have high-grade fever found to be septic with the lactic acidosis. Patient does take Lasix at home regimen of history of congestive heart failure. Patient does have Parkinson's and is on carbidopa levodopa for that. Patient lowered himself to Because of Generalized Weakness. Patient Chest X-Ray Did Not Show Pneumonia but Urine Is Significant Abnormality Patient Does Have History of UTI in the past Patient Has Enterococcus Which Is Resistant to Penicillin but Sensitive to Vancomycin. Patient Also Had MRSA UTI in the past. Urine Cultures Blood Cultures Were Obtained. 09/01/2019 Patient is lying in bed in no acute distress with no acute overnight issues. Patient states that he continues to feel weak and has been working with PT/OT. Infectious disease is following. Patient's blood cultures have resulted with presumptive MRSA and repeat blood cultures are pending at this time. Patient is currently on IV antibiotics in the form of ceftriaxone and vancomycin and will continue at this time. Patient denies any chest pain, shortness of breath, or palpitations. Patient has been afebrile. Patient denies any nausea or vomiting and is tolerating diet. Patient states that he has been falling more frequently at home in case management and social work are following for discharge planning as the patient may require rehab upon discharge. Will continue to monitor c losely. 09/02/2019 Patient is lying in bed in no acute distress with no acute overnight issues. Re peat blood cultures have shown presumptive MRSA. Infectious disease is following. Patient is having some right knee pain an x-ray was done showing no fracture nor dislocation and joint spaces are normal with no signs of joint effusion. Patient is currently on IV antibiotics in the form of vancomycin and will continue at this time. Patient is on gentle IV hydration at 75mL/hr his creatinine is improving and is currently 1.56. White blood count is trending down and is currently 11.3. Will repeat a.m. labs. Cardiology is consulted and is pending at this time. Will continue to monitor vital signs and labs closely. 09/03/2019 Patient had persistent bacteremia will obtain ultrasound of the kidney to rule out any perinephric abscess along with the possible endocarditis. Patient is feeling a bit better today. Afebrile. 09/04/2019 Blood cultures from yesterday were negative. Patient will undergo SAL tomorrow ultrasound of the kidney did not show any perinephric abscess. Patient is f eeling a little stronger today Constitutional: Denied any fatigue denied any fever. Cardio vascular: denied any chest pain, palpitations Gastrointestinal denied any nausea vomiting Pulmonary: Denied any shortness of breath cough Neurologic denied any new focal deficits 09/05/2019 Patient is lying in bed in no acute distress with no acute overnight issues. Patient is to undergo a SAL today around noon. Will await report. Patient is quite lethargic and continues to fall in and out of sleep while conversing. Currently patient denies any chest pain, shortness of breath, or palpitations. Patient is afebrile. Patient denies any nausea or vomiting and has been tolerating diet. Patient states he is tired today. Blood cultures from yesterday have a preliminary reading of gram-positive cocci. Infectious disease is following. Will continue to monitor closely. 09/06/2019 Patient is sitting up in the chair in no acute distress with no acute overnight issues. Cardiology and infectious disease are following. Patient underwent a SAL yesterday showing no definite evidence of vegetations on the aortic valve and no vegetation noted on the mitral or tricuspid valves but did have a thromb us in the left atrial appendage that is about 1 cm in size. LV systolic function is normal and interatrial septum is intact. Patient was started on Eliquis and will continue at this time. Patient's blood cultures continue to show MRSA and will repeat blood cultures daily to monitor closely. Patient is currently on IV antibiotics in the form of daptomycin and will continue at this time. Vancomycin was discontinued. Currently patient denies any chest pain, shortness of breath, or palpitations. Patient has been afebrile. Patient denies any nausea or vomiting and has been tolerating diet. Patient States that he is urinating well with no issues but has not had a bowel movement in 3 days. Dulcolax was ordered. 09/07/2019 Patient is sitting up in the chair in no acute distress with no acute overnight issues. Family is at the bedside. Discussed with the family and patient at length today about CODE STATUS and patient's wishes are to be made a no code as he states "he does not want to be a vegetable something were to happen." Patient is much more awake and alert today and is sitting up having full conversation. Patient denies any chest pain, shortness of breath, or palpitatio ns. Patient is afebrile. She denies any nausea or vomiting and is tolerating diet. Patient's repeat blood cultures continue to be positive and are showing gram-positive cocci. Patient continues to have elevated blood pressure and Norvasc 10 mg will be added today. Will continue to monitor closely. Patient is currently on IV antibiotics in the form of daptomycin and will continue at this time. Infectious disease is following. 09/08/2019 patient's last blood cultures that was positive at from of this month. Patient is still lethargic 09/09/2019 Patient remained is lethargic no significant change in his clinical condition patient is bit hypoglycemic today discontinue the pre-meal insulin will discontinue sliding scale insulin will cut down the Lantus dose. Patient blood cultures from are clear. Last positive blood cultures from the 07 September Mr. Peterson is a 73-year-old male with chronic medical conditions including atrial flutter, congestive heart failure, COPD, diverticulitis, hypertension, thyroid disorder, bladder cancer coming into the hospital for fevers and lethargy. The workup for his fever with showed left atrial thrombus. And his blood cultures have been continuously positive for MRSA. Patient is currently on IV daptomycin , gentamicin and ceftriaxone as per ID Dr. Childs recommendations. On 09/10/2019- as per the nursing staff report patient is more alert compared to yesterday. He complains of fatigue. Denies having any chest pain or difficulty in breathing. No cough. Denies having any fevers chills or rigors. No abdominal pain nausea vomiting or diarrhea. No dysuria or hematuria. His blood cultures from the are still positive for MRSA. On 09/11/2019 - as per the nursing staff report no acute events reported overnight. Patient is sitting up in a chair by the bedside. He is much more alert and awake compared to yesterday. Patient denies having any chest pain or palpitations. No cough or difficulty in breathing. No fevers chills or rigors. He mentions that his lower extremity edema is still there and he has been dealing with for a long time. Patient's blood cultures from of still positive for MRSA. ID Dr. Childs on board he change daptomycin to linezolid. oN 09/12/19 - Patient is lying in bed appears to be in no acute distress. Patient complains of generalized fatigue and weakness. Denies having any chest pain or palpitations. No weakness of his extremities. No fevers chills or rigors. No cough or difficulty breathing. On reviewing the labs patient's blood cultures from have been still positive for MRSA. He is currently on linezolid and ceftriaxone. 09/13/2019 Patient is sitting up in bed sleeping but easily arousable in no acute distress. No Acute overnight issues. Patient continues to have fatigue and weakness but is arousable. Patient able to answer questions and commands appropriately once a week. Currently patient denies any chest pain, shortness of breath, or pa lpitations. Patient is afebrile. Patient denies any nausea or vomiting and is tolerating diet. Infectious disease is following closely. Patient was recently transitioned to IV antibiotics in the form of Zyvox along with ceftriaxone. Most recent blood cultures continue to show positive for MRSA. Will await most recent blood culture repeats. 09/14/2019 Patient is sitting up in the bed in no acute distress. Repeat blood cultures preliminary showing gram-positive cocci. No acute overnight issues. Infectious disease is following closely. REVIEW OF SYSTEMS: Cardiovascular: No reports of chest pain or palpitations Respiratory: No reports of shortness of breath or cough Musculoskeletal: Reports of chronic back pain GI: No reports of nausea, vomiting, or diarrhea : No reports of dysuria or retention 09/15/2019 Patient is sitting up in the chair with no acute overnight issues. Repeat blood cultures from 09/13/2019 are showing Staphylococcus aureus. Will await for finalization. Infectious disease is following. Creatinine is slightly elevated at 1.75. Will repeat a.m. labs. 09/16/2019 Patient is sitting up in the chair in no acute distress. Denies any acute overnight issues. Repeat blood cultures from 09/13/2019 have finalized showing MRSA. Continued repeat cultures from 09/14 and 09/15 thus far have been negative. Creatinine today is 2.28. Will continue to closely monitor and repeat labs in the morning. 09/17/2019 Patient is currently sitting in the chair comfortably. No complaints of chest pain or worsening shortness of breath. Blood cultures showed no growth since 09 13 2019. Blood cultures on 09/13/2019 showed MRSA. Currently on Zyvox. Creatinine level is 2.51 today. Patient has been afebrile. Leukocytosis improved. ID is following. 09/18/2019 Patient is currently sitting in a chair comfortably. Blood cultures showed no growth since 10/14/2018. Currently on IV antibiotics. Renal function is fairly stable with creatinine level still elevated at 2.55. Patient is tolerating oral diet. Continued on gentle hydration. ID is following. Current medications reviewed 09/19/2019 Patient is sitting up in bed in no acute distress. Patient appears to be disheveled and continues to remove his gown. When talking with nursing staff patient fell this morning attempting to get up without help and landed on his buttock causing a small skin tear. Patient denies any other trauma at this time. CAT scan of the head was ordered and is negative at this time. Awaiting authorization for [facility] continue rehab. Creatinine slightly elevated today 2.78 and is currently on IV fluids at 50 miles per hour. Will repeat a.m. labs. The last 2 blood cultures have been negative thus far and patient is responding well to the Zyvox. Infectious disease is following. REVIEW OF SYSTEMS: Cardiovascular: No reports of chest pain or palpitations Respiratory: No reports of shortness of breath or cough Musculoskeletal: Reports of chronic back pain GI: No reports of nausea, vomiting, or diarrhea : No reports of dysuria or retention 09/20/2019 Patient is sitting up in bed in no acute distress with no acute overnight issues. Patient continues to be lethargic but is arousable and responds appropriately to commands once a week. Repeat labs today show creatinine is elevated at 3.36. Nephrology was consulted and is currently pending. Patient will be continued on IV antibiotic in the form of Zyvox at this time. Infectious disease is following. Will continue with gentle IV hydration of normal saline with a rate increase from 50 to 100 mL per hour. Will continue to monitor vital signs and labs closely. Patient has received authorization for [employer] [facility] for continued PT/OT therapy along with continued antibiotic therapy. 09/21/2019 Patient is lying in bed and is sleeping but easily arousable and appears to be in no acute distress. No Acute overnight issues. at the bedside today and spoke with her about his recent lab values. Creatinine is slightly trending down and is currently 3.18 patient will continue on gentle IV hydration. Nephrology is following. Spoke with the nursing staff about attempting to obt ain a urine specimen and to monitor for urinary retention. Patient continues to wear a brief and is incontinent at times has been getting up to the commode and only having contaminated specimens. Patient is currently maintained on IV antibiotics in the form of Zyvox and will continue at this time and we'll transition to oral Zyvox in the outpatient setting at [facility] on the [place]. Discussed with the that if the creatinine continues to trend down and nephrology clears the patient will be able to go to [facility]. 09/22/2019 Patient is sitting up in the chair much more alert and awake today having full conversation about his family in no acute distress. No acute overnight issues. Spoke with nursing staff about trying to obtain a urine sample as we have been unsuccessful thus far as he is sometimes incontinent and is brief or will urinate while using the commode that is contaminated with feces. A condom catheterization was attempted with no success. Will continue to attempt obt aining a specimen at this time. Nephrology is following closely. Patient is currently maintained on IV normal saline gentle hydration at 50-75 ML per hour and will continue at this time. Spoke with the today about his creatinine is elevated again at 3.22 and we will not be sending him to [facility] today. We'll continue to monitor labs closely. Patient was transitioned oral Zyvox and will continue this. Infectious disease is following. 09/23/2019 Patient is sitting up in the chair in no acute distress with no acute overnight issues. Urinalysis was obtained via straight catheterization and is negative. Creatinine today is slightly improved and is currently 3.01. Will continue with gentle IV hydration of normal saline at 75 ML per hour. Nephrology is following closely. Infectious disease is following as well. Patient is maintained on oral Zyvox and will continue at this time. Will repeat a.m. labs to monitor creatinine closely. Objective - Vital Signs Vital signs: Vital Signs Temp 97.7 F 09/23/19 13:28 Pulse 62 09/23/19 13:28 Resp 15 09/23/19 13:28 BP 135/77 09/23/19 13:28 Pulse Ox 98 12/13/19 13:28 Intake & Output 09/22/19 09/23/19 09/23/19 18:59 06:59 18:59 Intake Total 840 1710 600 Balance 840 1710 600 Weight 108 kg Intake: IV 750 600 Sodium Chloride 0.9% 1, 750 600 000 ml @ 75 mls/hr IV . [id number] [facility] Rx#:[id number] Oral 840 960 Other: Voiding Method Diaper Incontinent # Voids 2 # Bowel Movements 1 - Exam GENERAL: The patient is alert and oriented x3. Well developed, well nourished. Patient is awake and alert and in no acute distress. HEENT: Pupils are round and equally reacting to light. EOMI. No scleral icterus. No conjunctival pallor. Normocephalic, atraumatic. No pharyngeal erythema. No thyromegaly. CARDIOVASCULAR: S1 and S2 present. No murmurs, rubs, or gallops. PULMONARY: Diminished breath sounds at the bases otherwise chest is clear to auscultation with no wheezing or crackles noted. ABDOMEN: Soft, non-tender, non-distended, normoactive bowel sounds. No palpable organomegaly. MUSCULOSKELETAL: No joint swelling or deformity. EXTREMITIES: No cyanosis, clubbing, mild bilateral lower extremity and pedal edema noted. NEUROLOGICAL: Gross neurological examination did not reveal any focal deficits. SKIN: No rashes. No open ulcerations or lesions noted - Labs CBC & Chem 7: 09/19/19 06:07 09/23/19 08:48 Labs: Abnormal Lab Results - Last 24 Hours (Table) 09/22/19 09/22/19 09/23/19 Range/Units 16:32 20:26 08:48 BUN 35 H (9-20) mg/dL Creatinine 3.01 H (0.66-1.25) mg/dL POC Glucose (mg/dL) 164 H 192 H (75-99) mg/dL Urine Protein (Negative) Ur Leukocyte Esterase (Negative) Urine WBC (0-5) /hpf 09/23/19 Range/Units 13:20 BUN (9-20) mg/dL Creatinine (0.66-1.25) mg/dL POC Glucose (mg/dL) (75-99) mg/dL Urine Protein 1+ H (Negative) Ur Leukocyte Esterase Moderate H (Negative) Urine WBC 43 H (0-5) /hpf Assessment and Plan Assessment: -Severe sepsis secondary to urinary tract infection Repeat blood cultures thus far from 09/14 and 09/15 have been negative. Patient's IV antibiotics have been transitioned to oral Zyvox . Infectious disease is following. -Extensive venous stasis dermatosis and bilateral pedal edema from venous stasis dermatosis Lasix will be held temporarily because of sepsis. -Gait dysfunction -Type 2 diabetes mellitus, uncontrolled -Generalized weakness secondary to sepsis -Hypertension -Parkinson's -Hypothyroidism -COPD without any acute exacerbation -Acute kidney injury: From sepsis and Lasix is contributing to his acute renal failure -Chronic kidney disease stage 2-3 -Diabetic peripheral neuropathy. Recommendations and discussion: Recommend to continue current medications, management, and symptomatic treatment. Infectious disease is following. Creatinine today is 3.01. Will repeat am labs and monitor creatinine closely. Nephrology is following. Will continue to monitor closely. Case management and social work following as well for placement at subacute rehab once patient is discharged. Authorization for [facility] the [place] was obtained but may have to be reinitiated once patient is stable to discharge. Patient will continue with oral antibiotic therapy in the form of Zyvox as well as continued PT/OT therapy for strength and mobility. Further recommendations to follow. <Sheet,Mikie E - Last Filed: 09/24/19 00:25> Subjective Principal diagnosis: I have discussed the plan and I have reviewed the note with AVERY Parra and I agree with it except what is mentioned below Pt is seen and examined by me at bed side Objective - Vital Signs Vital signs: Vital Signs Temp 97.7 F 09/23/19 13:28 Pulse 73 09/23/19 20:00 Resp 18 09/23/19 20:00 BP 135/77 09/23/19 13:28 Pulse Ox 98 09/23/19 13:28 Intake & Output 09/23/19 09/23/19 09/24/19 06:59 18:59 06:59 Intake Total 1710 600 715 Balance 1710 600 715 Intake: IV 750 600 475 Sodium Chloride 0.9% 1, 750 600 475 000 ml @ 75 mls/hr IV . [id number] [facility] Rx#:[id number] Oral 960 240 Other: Voiding Method Diaper Diaper Incontinent Incontinent # Voids 2 - Labs CBC & Chem 7: 09/19/19 06:07 09/23/19 08:48 Labs: Abnormal Lab Results - Last 24 Hours (Table) 09/23/19 09/23/19 09/23/19 Range/Units 08:48 13:20 17:13 BUN 35 H (9-20) mg/dL Creatinine 3.01 H (0.66-1.25) mg/dL POC Glucose (mg/dL) 147 H (75-99) mg/dL Urine Protein 1+ H (Negative) Ur Leukocyte Esterase Moderate H (Negative) Urine WBC 43 H (0-5) /hpf 09/23/19 Range/Units 20:20 BUN (9-20) mg/dL Creatinine (0.66-1.25) mg/dL POC Glucose (mg/dL) 193 H (75-99) mg/dL Urine Protein (Negative) Ur Leukocyte Esterase (Negative) Urine WBC (0-5) /hpf
[2019-09-23 17:34] LABS: Glucose,Whole Blood 147 mg/dL (75-99)
--- NOTE | 2019-09-23 18:35 | PN ---
PROGRESS NOTE Patient is seen for followup for acute kidney injury, mostly ATN. Renal function has been slowly improving. Patient is maintained on IV fluids. He is maintained on Zyvox for persistently positive MRSA bacteremia. Current blood cultures are negative. PHYSICAL EXAMINATION: On examination today, patient is comfortable, awake. He is not in any acute distress. Blood pressure is 142/76, heart rate 60 per minute. He is afebrile. EXAMINATION OF THE HEART: S1 and S2. EXAMINATION OF LUNGS: Bilateral breath sounds are heard. ABDOMEN: Soft, non-tender. Examination of lower extremities shows no significant edema. Chronic skin changes are noted. [employer] exam is grossly intact. LABS: Sodium 138, potassium 4.8, chloride 105, BUN 35, creatinine 3.01. UA shows 1+ protein, WBCs 43, moderate leukocyte esterase. ASSESSMENT: 1. Acute kidney injury, mostly acute tubular necrosis. Repeat UA shows decreasing WBCs and 1+ protein. I doubt significant acute interstitial nephritis, especially if renal function continues to improve. I will hold off on steroids. 2. Hypertension. Blood pressure is controlled. Patient is off of angiotensin inhibitors. 3. Methicillin-resistant Staphylococcus aeruginosa bacteremia with current blood cultures negative. SAL was negative for vegetation. 4. Chronic kidney disease, stage III. Previous creatinine 1.2 in February of 2019 and December of 2018 secondary to nephrosclerosis. 5. Generalized debility. PLAN: Continue to encourage increased oral intake. Continue IV fluids for now. May continue with the Zyvox as well. Repeat labs in a.m. and continue to avoid nephrotoxic medications. MMODL / IJN: [id number] /
[2019-09-23 20:33] LABS: Glucose,Whole Blood 193 mg/dL (75-99)
[2019-09-23] MEDS: INSULIN DETEMIR (LEVEMIR) 100 UNIT/ML SYR SQ SCH (20:55)
[2019-09-24] MEDS: LEVOTHYROXINE 100 MCG TAB PO SCH (05:56)
[2019-09-24 07:09] LABS: Potassium 4.5 mmol/L (3.5-5.1)
[2019-09-24 07:24] LABS: Glucose,Whole Blood 83 mg/dL (75-99)
[2019-09-24] MEDS: CARBIDOPA-LEVODOPA 25-100 MG 1 EACH TAB PO SCH ×3 (08:38→22:45)
[2019-09-24] MEDS: APIXABAN 5 MG TAB PO SCH ×2 (08:39→22:45)
[2019-09-24] MEDS: ALLOPURINOL 100 MG TAB PO SCH (08:39)
[2019-09-24] MEDS: amLODIPine 10 MG TAB PO SCH (08:39)
[2019-09-24] MEDS: METOPROLOL TARTRATE 25 MG TAB PO SCH ×2 (08:39→22:45)
[2019-09-24] MEDS: INSULIN ASPART (NovoLOG) 100 UNIT/ML VIAL SQ SCH ×4 (08:45→22:45)
--- NOTE | 2019-09-24 10:57 | PN ---
PROGRESS NOTE Patient is seen for followup for acute kidney injury. His renal function has been improving, mainly ATN. UA was unremarkable. Repeat UA was unremarkable. The patient is maintained on Zyvox for persistently positive MRSA bacteremia. EXAMINATION: Today, blood pressure is 136/64, heart rate 67 per minute, patient is afebrile. Examination of the heart S1, S2. Examination of the lungs, bilateral breath sounds are heard. ABDOMEN: Soft, nontender. Examination of lower extremities shows no significant edema. Chronic skin changes are noted. LAB: Show sodium 139, potassium 4.5, chloride 104, BUN 36, creatinine 3.08. ASSESSMENT: 1. Acute kidney injury, acute tubular necrosis, currently improving. Renal function fairly stable, creatinine staying at about 3.0. Patient is nonoliguric though there is no evidence of urine retention. No obstructive uropathy noted on ultrasound. UA is benign and much improved from his initial admission. 2. MRSA bacteremia currently blood cultures are negative. Maintained on Zyvox. SAL was negative for vegetation. 3. Urinary tract infection with urine culture that grew Summer glabrata on initial admission. 4. Generalized debility. PLAN: Continue IV fluids. Continue to encourage increased oral intake. May continue with Zyvox. Monitor the renal function and electrolytes. MMODL / IJN: [id number] /
--- NOTE | 2019-09-24 11:24 | P.PN ---
Subjective Principal diagnosis: I have discussed the plan and I have reviewed the note with LEAD MINER Aida and I agree with it except what is mentioned below Pt is seen and examined by me at bed side 73-year-old male came in because of possible Infection as patient felt quite weak and lethargic found to have high-grade fever found to be septic with the lactic acidosis. Patient does take Lasix at home regimen of history of congestive heart failure. Patient does have Parkinson's and is on carbidopa levodopa for that. Patient lowered himself to Because of Generalized Weakness. Patient Chest X-Ray Did Not Show Pneumonia but Urine Is Significant Abnormality Patient Does Have History of UTI in the past Patient Has Enterococcus Which Is Resistant to Penicillin but Sensitive to Vancomycin. Patient Also Had MRSA UTI in the past. Urine Cultures Blood Cultures Were Obtained. 09/01/2019 Patient is lying in bed in no acute distress with no acute overnight issues. Patient states that he continues to feel weak and has been working with PT/OT. Infectious disease is following. Patient's blood cultures have resulted with presumptive MRSA and repeat blood cultures are pending at this time. Patient is currently on IV antibiotics in the form of ceftriaxone and vancomycin and will continue at this time. Patient denies any chest pain, shortness of breath, or palpitations. Patient has been afebrile. Patient denies any nausea or vomiting and is tolerating diet. Patient states that he has been falling more frequently at home in case management and social work are following for discharge planning as the patient may require rehab upon discharge. Will continue to monitor closely. 09/02/2019 Patient is lying in bed in no acute distress with no acute overnight issues. Repeat blood cultures have shown presumptive MRSA. Infectious disease is following. Patient is having some right knee pain an x-ray was done showing no fracture nor dislocation and joint spaces are normal with no signs of joint effusion. Patient is currently on IV antibiotics in the form of vancomycin and will continue at this time. Patient is on gentle IV hydration at 75mL/hr his creatinine is improving and is currently 1.56. White blood count is trending down and is currently 11.3. Will repeat a.m. labs. Cardiology is consulted and is pending at this time. Will continue to monitor vital signs and labs closely. 09/03/2019 Patient had persistent bacteremia will obtain ultrasound of the kidney to rule out any perinephric abscess along with the possible endocarditis. Patient is feeling a bit better today. Afebrile. 09/04/2019 Blood cultures from yesterday were negative. Patient will undergo SAL tomorrow ultrasound of the kidney did not show any perinephric abscess. Patient is feeling a little stronger today Constitutional: Denied any fatigue denied any fever. Cardio vascular: denied any chest pain, palpitations Gastrointestinal denied any nausea vomiting Pulmonary: Denied any shortness of breath cough Neurologic denied any new focal deficits 09/05/2019 Patient is lying in bed in no acute distress with no acute overnight issues. Patient is to undergo a SAL today around noon. Will await report. Patient is quite lethargic and continues to fall in and out of sleep while conversing. Currently patient denies any chest pain, shortness of breath, or palpitations. Patient is afebrile. Patient denies any nausea or vomiting and has been tolerating diet. Patient states he is tired today. Blood cultures from yesterday have a preliminary reading of gram-positive cocci. Infectious disease is following. Will continue to monitor closely. 09/06/2019 Patient is sitting up in the chair in no acute distress with no acute overnight issues. Cardiology and infectious disease are following. Patient underwent a SAL yesterday showing no definite evidence of vegetations on the aortic valve and no vegetation noted on the mitral or tricuspid valves but did have a thrombus in the left atrial appendage that is about 1 cm in size. LV systolic function is normal and interatrial septum is intact. Patient was started on Eliquis and will continue at this time. Patient's blood cultures continue to show MRSA and will repeat blood cultures daily to monitor closely. Patient is currently on IV antibiotics in the form of daptomycin and will continue at this time. Vancomycin was discontinued. Currently patient denies any chest pain, shortness of breath, or palpitations. Patient has been afebrile. Patient denies any nausea or vomiting and has been tolerating diet. Patient States that he is urinating well with no issues but has not had a bowel movement in 3 days. Dulcolax was ordered. 09/07/2019 Patient is sitting up in the chair in no acute distress with no acute overnight issues. Family is at the bedside. Discussed with the family and patient at length today about CODE STATUS and patient's wishes are to be made a no code as he states "he does not want to be a vegetable something were to happen." Patient is much more awake and alert today and is sitting up having full conversation. Patient denies any chest pain, shortness of breath, or palpitations. Patient is afebrile. She denies any nausea or vomiting and is tolerating diet. Patient's repeat blood cultures continue to be positive and are showing gram-positive cocci. Patient continues to have elevated blood pressure and Norvasc 10 mg will be added today. Will continue to monitor closely. Patient is currently on IV antibiotics in the form of daptomycin and will continue at this time. Infectious disease is following. 09/08/2019 patient's last blood cultures that was positive at from 26 of this month. Patient is still lethargic 09/09/2019 Patient remained is lethargic no significant change in his clinical condition patient is bit hypoglycemic today discontinue the pre-meal insulin will discontinue sliding scale insulin will cut down the Lantus dose. Patient blood cultures from are clear. Last positive blood cultures from the 07 September Mr. Peterson is a 73-year-old male with chronic medical conditions including atrial flutter, congestive heart failure, COPD, diverticulitis, hypertension, thyroid disorder, bladder cancer coming into the hospital for fevers and lethargy. The workup for his fever with showed left atrial thrombus. And his blood cultures have been continuously positive for MRSA. Patient is currently on IV daptomycin , gentamicin and ceftriaxone as per ID Dr. Childs recommendations. 09/22/2019 Patient is sitting up in the chair much more alert and awake today having full conversation about his family in no acute distress. No acute overnight issues. Spoke with nursing staff about trying to obtain a urine sample as we have been unsuccessful thus far as he is sometimes incontinent and is brief or will urinate while using the commode that is contaminated with feces. A condom catheterization was attempted with no success. Will continue to attempt obtaining a specimen at this time. Nephrology is following closely. Patient is currently maintained on IV normal saline gentle hydration at 50-75 ML per hour and will continue at this time. Spoke with the today about his creatinine is elevated again at 3.22 and we will not be sending him to [facility] today. We'll continue to monitor labs closely. Patient was transitioned oral Zyvox and will continue this. Infectious disease is following. 09/23/2019 Patient is sitting up in the chair in no acute distress with no acute overnight issues. Urinalysis was obtained via straight catheterization and is negative. Creatinine today is slightly improved and is currently 3.01. Will continue with gentle IV hydration of normal saline at 75 ML per hour. Nephrology is following closely. Infectious disease is following as well. Patient is maintained on oral Zyvox and will continue at this time. Will repeat a.m. labs to monitor creatinine closely. 09/24/2019 Patient admitted comfortable not in distress. He denies chest pain or dyspnea.is saturating 92% on 2 L oxygen via nasal cannula. His creatinine is slightly trending down to 3.0 today. He remains on oral Zyvox, Eliquis 5 mg and normal saline at 75 mL/h Objective - Vital Signs Vital signs: Vital Signs Temp 98.4 F 09/24/19 07:00 Pulse 67 09/24/19 07:00 Resp 18 09/24/19 07:00 BP 136/64 09/24/19 07:00 Pulse Ox 92 L 09/24/19 07:00 Intake & Output 09/23/19 09/24/19 09/24/19 18:59 06:59 18:59 Intake Total 600 1065 180 Balance 600 1065 180 Intake: IV 600 825 Sodium Chloride 0.9% 1, 600 825 000 ml @ 75 mls/hr IV . [id number] [facility] Rx#:[id number] Oral 240 180 Other: Voiding Method Diaper Diaper Incontinent Incontinent # Voids 2 1 # Bowel Movements 1 1 - Exam -GENERAL: The patient is alert and oriented x3. Patient is awake and alert and in no acute distress.but he is tired and lethargic HEENT: Pupils are round and equally reacting to light. EOMI. No scleral icterus. No conjunctival pallor. Normocephalic, atraumatic. No pharyngeal erythema. No thyromegaly. CARDIOVASCULAR: S1 and S2 present. No murmurs, rubs, or gallops. PULMONARY: Diminished breath sounds at the bases otherwise chest is clear to auscultation with no wheezing or crackles noted. ABDOMEN: Soft, non-tender, non-distended, normoactive bowel sounds. No palpable organomegaly. MUSCULOSKELETAL: No joint swelling or deformity. EXTREMITIES: No cyanosis, clubbing, mild bilateral lower extremity and pedal edema noted. NEUROLOGICAL: Gross neurological examination did not reveal any focal deficits. SKIN: No rashes. No open ulcerations or lesions noted - Labs CBC & Chem 7: 09/19/19 06:07 09/24/19 06:12 Labs: Abnormal Lab Results - Last 24 Hours (Table) 09/23/19 09/23/19 09/23/19 Range/Units 13:20 17:13 20:20 BUN (9-20) mg/dL Creatinine (0.66-1.25) mg/dL POC Glucose (mg/dL) 147 H 193 H (75-99) mg/dL Urine Protein 1+ H (Negative) Ur Leukocyte Esterase Moderate H (Negative) Urine WBC 43 H (0-5) /hpf 09/24/19 Range/Units 06:12 BUN 36 H (9-20) mg/dL Creatinine 3.08 H (0.66-1.25) mg/dL POC Glucose (mg/dL) (75-99) mg/dL Urine Protein (Negative) Ur Leukocyte Esterase (Negative) Urine WBC (0-5) /hpf Assessment and Plan Assessment: -Severe sepsis secondary to urinary tract infection Repeat blood cultures thus far from 09/14 and 09/15 have been negative. Patient's IV antibiotics have been transitioned to oral Zyvox . Infectious disease is following. -Extensive venous stasis dermatosis and bilateral pedal edema from venous stasis dermatosis Lasix will be held temporarily because of sepsis. -Gait dysfunction -Type 2 diabetes mellitus, uncontrolled -Generalized weakness secondary to sepsis -Hypertension -Parkinson's -Hypothyroidism -COPD without any acute exacerbation -Acute kidney injury: From sepsis and Lasix is contributing to his acute renal failure -Chronic kidney disease stage 2-3 -Diabetic peripheral neuropathy. Plan: this is a pleasant 79 years old male who presents with UTI and bacteremia from MRSA microorganisms. Patient is on Zyvox as per ID team. His creatinine trended up from baseline of 1.1-1.2-3.0 yesterday. However he is of normal saline at 75 blade and his creatinine trended down. Continue with IV fluids.Follow-up recommendation by nephrology and ID team's. Labs and medication were reviewed.. Continue same treatment. Continue with symptomatic treatment. Resume home medication. Monitor lytes and vitals. DVT and GI prophylaxis. Further recommendations of the clinical course of the patient DVT prophylaxis: Eliquis GI Prophylaxis: Pepcid PT/OT: fernando Prognosis is guarded
[2019-09-24] MEDS: LINEZOLID 600 MG TAB PO SCH ×2 (12:34→22:45)
[2019-09-24 12:37] LABS: Glucose,Whole Blood 94 mg/dL (75-99)
[2019-09-24] MEDS: SODIUM CHLORIDE 0.9% 1,000 ML IV SCH (15:26)
--- NOTE | 2019-09-24 15:49 | P.PN ---
Subjective Progress Note Date: 09/24/19 79-year-old male who lives in the family home with his spouse and grandchildren relates that he's been feeling poorly for a few days. He became very weak and actually lowered himself to the ground because he was so weak. EMS was called and he was brought to hospital. He was on evidence of a fever as well as leukocytosis and feeling quite poorly. Patient has a long-standing history of Parkinson's and is a limited historian. He denies severe pain at this time. 09/02/2019 patient remains a poor historian but he is a bit stronger and may have sitting up in the chair. He has no significant complaints. 09/05/2019 patient remains fatigued and feels ill but has been able to sit up in a chair, denies fevers or chills. SAL has now been performed. September 06 2019 the patient is sleepy and difficult to arouse this afternoon. His untouched lunch is next to him. His status is discussed with the nurse. He has been quite sleepy through the morning into the early afternoon. She will reassess if he does awaken make sure there some assistance in eating his meal. 09/07/2019 patient continues to be with ongoing sepsis and ongoing bacteremia despite antibiotic therapy and change of antibiotic therapy daptomycin. He is still very weak and ill which is quite different from his baseline. Discussion occurred with the primary care team yesterday. And the patient is now been appropriate and made no code is receiving ongoing aggressive interventions. September 10 the patient is more awake alert and interactive today. He seems to be modestly comfortable in is not complaining of severe pain. Laboratories reviewed he has evidence of ongoing bacteremia. Sep feels better was able to transfer to the chair unassisted except walker. no fevers feels poorly overall 09/12/2019 patient is fatigued today but no new acute troubles, appetite is adequate. 09/13/2019 the patient is more awake alert and interactive today. He continues to have a relatively good appetite no difficulty eating his dinner. No nausea or emesis. He does have some chronic back pain that is not acutely worse. 09/14/2019 patient sitting up in the chair and his is visiting. He is a bit more awake alert and interactive than he has been. He exhibits a mild sense of humor. Patient's is pleased but is concerned that he is not eating well. 09/15/2019 Patient is again showing some improvement today. He is up in the chair he is eating his lunch without difficulty and voices no severe discomfort. He is uncomfortable but is wondering when he will be well enough to be able to leave hospital. We discussed that he continues having ongoing bacteremic infection related to the left atrial clot that is infected. The cardiovascular team does not believe that they can remove the clot. 09/16/2019 the patient is feeling again better today. Sitting upright eating his meals as a brighter affect. Looking for to transitioning out of the hospital so that he can gain some strength. He is having no fevers or chills. No difficulty with current antibiotic therapy. 09/19/2019 the patient is having some further improvement. Sitting upright eating well and look forward to his transition out of hospital. Nursing staff relates that he was a bit sleepy today appears to be improved at this time. 09/20/2019 the patient has had some worsening of his status. He is now developed some progressive acute renal failure there appears to be multifactorial. 09/21/2019 patient is resting comfortably. Much of an appetite. Her systemic relates that no new acute changes throughout the day. Awaiting rehab placement. 09/24/2019 patient is resting eating better feeling slightly better continues to a rehab placement however with the acute on chronic renal failure is being managed by nephrology before his transfer. Objective - Vital Signs Vital signs: Vital Signs Temp 98.4 F 09/24/19 14:51 Pulse 70 09/24/19 14:51 Resp 16 09/24/19 14:51 BP 132/70 09/24/19 14:51 Pulse Ox 92 L 09/24/19 14:51 Intake & Output 09/23/19 09/24/19 09/24/19 18:59 06:59 18:59 Intake Total 600 1065 420 Balance 600 1065 420 Intake: IV 600 825 Sodium Chloride 0.9% 1, 600 825 000 ml @ 75 mls/hr IV . [id number] [facility] Rx#:[id number] Oral 240 420 Other: Voiding Method Diaper Diaper Incontinent Incontinent # Voids 2 1 # Bowel Movements 1 1 - Exam 79-year-old male who seems to be comfortable, visiting with his HEENT: Anicteric conjunctiva are pink and moist nasal mucosa grossly intact without significant lesions, there is no thrush. Has dentures Neck: The neck is supple without significant lymphadenopathy or thyromegaly. Lungs: There is symmetrical bilateral air entry with few crackles at the bases no significant wheezing Heart: Irregular with a soft S4. No murmur click or rub Abdomen: Mildly obese, Positive bowel sounds soft and nontender without palpable masses or organomegaly. There was no guarding or rebound. Extremities: The upper extremities have excellent pulses they are symmetric, no significant petechiae or telangiectasia. No splinter hemorrhages were noted. Lower extremities have evidence of extensive bilateral lower extremity edema, skin is thickened toenails are untrimmed no open ulcerations are seen Neuro: Patient is sedated today does not hear well with the care team but daughter relates there was some minimal conversation hour ago. - Labs CBC & Chem 7: 09/19/19 06:07 09/24/19 06:12 Labs: Abnormal Lab Results - Last 24 Hours (Table) 09/23/19 09/23/19 09/24/19 Range/Units 17:13 20:20 06:12 BUN 36 H (9-20) mg/dL Creatinine 3.08 H (0.66-1.25) mg/dL POC Glucose (mg/dL) 147 H 193 H (75-99) mg/dL Laboratory Results WBC 10.6 k/uL (3.8-10.6) 09/19/19 06:07 RBC 3.72 m/uL (4.30-5.90) L 09/19/19 06:07 Hgb 11.3 gm/dL (13.0-17.5) L 09/19/19 06:07 Hct 34.6 % (39.0-53.0) L 09/19/19 06:07 MCV 92.9 fL (80.0-100.0) 09/19/19 06:07 MCH 30.2 pg (25.0-35.0) 09/19/19 06:07 MCHC 32.5 g/dL (31.0-37.0) 09/19/19 06:07 RDW 13.3 % (11.5-15.5) 09/19/19 06:07 Plt Count 376 k/uL (150-450) 09/19/19 06:07 Neutrophils % 72 % 09/19/19 06:07 Lymphocytes % 17 % 09/19/19 06:07 Monocytes % 8 % 09/19/19 06:07 Eosinophils % 1 % 09/19/19 06:07 Basophils % 0 % 09/19/19 06:07 Neutrophils # 7.6 k/uL (1.3-7.7) 09/19/19 06:07 Lymphocytes # 1.8 k/uL (1.0-4.8) 09/19/19 06:07 Monocytes # 0.9 k/uL (0-1.0) 09/19/19 06:07 Eosinophils # 0.1 k/uL (0-0.7) 09/19/19 06:07 Basophils # 0.0 k/uL (0-0.2) 09/19/19 06:07 PT 10.4 sec (9.0-12.0) 08/31/19 01:55 INR 1.0 (<1.2) 08/31/19 01:55 APTT 22.1 sec (22.0-30.0) 08/31/19 01:55 Sample Site rrad 09/06/19 16:12 ABG pH 7.43 (7.35-7.45) 09/06/19 16:12 ABG pCO2 37 mmHg (35-45) 09/06/19 16:12 ABG pO2 88 mmHg (83-108) 09/06/19 16:12 ABG HCO3 24 mmol/L (21-25) 09/06/19 16:12 ABG Total CO2 26 mmol/L (19-24) H 09/06/19 16:12 ABG O2 Saturation 97.1 % (94-97) H 09/06/19 16:12 ABG Base Excess 0.2 mmol/L 09/06/19 16:12 Job Test Yes 09/06/19 16:12 FiO2 28 % 09/06/19 16:12 Sodium 139 mmol/L (137-145) 09/24/19 06:12 Potassium 4.5 mmol/L (3.5-5.1) 09/24/19 06:12 Chloride 104 mmol/L (98-107) 09/24/19 06:12 Carbon Dioxide 28 mmol/L (22-30) 09/24/19 06:12 Anion Gap 7 mmol/L 09/24/19 06:12 BUN 36 mg/dL (9-20) H 09/24/19 06:12 Creatinine 3.08 mg/dL (0.66-1.25) H 09/24/19 06:12 Est GFR (CKD-EPI)AfAm 21 (>60 ml/min/1.73 sqM) 09/24/19 06:12 Est GFR (CKD-EPI)NonAf 18 (>60 ml/min/1.73 sqM) 09/24/19 06:12 Glucose 89 mg/dL (74-99) 09/24/19 06:12 POC Glucose (mg/dL) 94 mg/dL (75-99) 09/24/19 12:26 POC Glu [employer] Judi Ramos 09/24/19 12:[address] Glu mg/dL 206 09/01/19 06:30 Hemoglobin A1c 8.8 % (4.0-6.0) H 09/01/19 06:30 Lactic Ac Sepsis Rflx Y 08/31/19 02:45 Plasma Lactic Acid Riley 0.7 mmol/L (0.7-2.0) 09/06/19 16:44 Calcium 9.0 mg/dL (8.4-10.2) 09/24/19 06:12 Total Bilirubin 0.4 mg/dL (0.2-1.3) 09/09/19 06:50 AST 15 U/L (17-59) L 09/09/19 06:50 ALT 8 U/L (21-72) L 09/09/19 06:50 Alkaline Phosphatase 74 U/L (38-126) 09/09/19 06:50 Troponin I 0.018 ng/mL (0.000-0.034) 08/31/19 01:55 Total Protein 5.5 g/dL (6.3-8.2) L 09/09/19 06:50 Albumin 2.5 g/dL (3.5-5.0) L 09/09/19 06:50 Urine Color Yellow 09/23/19 13:20 Urine Appearance Clear (Clear) 09/23/19 13:20 Urine pH 6.5 (5.0-8.0) 09/23/19 13:20 Ur Specific [place] 1.010 (1.001-1.035) 09/23/19 13:20 Urine Protein 1+ (Negative) H 09/23/19 13:20 Urine Glucose (UA) Negative (Negative) 09/23/19 13:20 Urine Ketones Negative (Negative) 09/23/19 13:20 Urine Blood Negative (Negative) 09/23/19 13:20 Urine Nitrite Negative (Negative) 09/23/19 13:20 Urine Bilirubin Negative (Negative) 09/23/19 13:20 Urine Urobilinogen <2.0 mg/dL (<2.0) 09/23/19 13:20 Ur Leukocyte Esterase Moderate (Negative) H 09/23/19 13:20 Urine RBC 2 /hpf (0-5) 09/23/19 13:20 Urine WBC 43 /hpf (0-5) H 09/23/19 13:20 Urine WBC Clumps Many /hpf (None) H 08/31/19 02:48 Ur Squamous Epith Cells <1 /hpf (0-4) 08/31/19 02:48 Urine Bacteria Rare /hpf (None) H 08/31/19 02:48 Hyaline Casts 3 /lpf (0-2) H 08/31/19 02:48 Urine Mucus Rare /hpf (None) H 08/31/19 02:48 Urine Yeast (Budding) Few /hpf (None) H 08/31/19 02:48 Gentamicin Peak 5.0 ug/mL 09/09/19 09:32 Gentamicin Trough 1.4 ug/mL 09/11/19 13:01 Vancomycin Trough 14.9 ug/mL 09/05/19 06:35 Influenza Type A RNA Not Detected (Not Detectd) 08/31/19 01:55 Influenza Type B (PCR) Not Detected (Not Detectd) 08/31/19 01:55 Microbiology 09/15/19 08:22 Blood Blood Culture - Final No Growth after 144 hours 09/15/19 07:40 Blood Blood Culture - Final No Growth after 144 hours 09/14/19 06:51 Blood Blood Culture - Final No Growth after 144 hours 09/13/19 07:00 Blood Blood Culture Gram Stain - Final 09/13/19 07:00 Blood Blood Culture - Final Methicillin resist S. aureus 09/13/19 07:18 Blood Blood Culture Gram Stain - Final 09/13/19 07:18 Blood Blood Culture - Final Methicillin resist S. aureus 09/13/19 07:00 Blood Blood Culture - Final 09/13/19 07:18 Blood Blood Culture - Final 09/10/19 06:29 Blood Blood Culture Gram Stain - Final 09/10/19 06:29 Blood Blood Culture - Final Methicillin resist S. aureus 09/09/19 06:50 Blood Blood Culture Gram Stain - Final 09/09/19 06:50 Blood Blood Culture - Final Methicillin resist S. aureus 09/10/19 06:29 Blood Blood Culture - Final 09/08/19 08:00 Blood Blood Culture Gram Stain - Final 09/08/19 08:00 Blood Blood Culture - Final Methicillin resist S. aureus 09/09/19 06:50 Blood Blood Culture - Final 09/07/19 06:28 Blood Blood Culture Gram Stain - Final 09/07/19 06:28 Blood Blood Culture - Final Methicillin resist S. aureus 09/08/19 08:00 Blood Blood Culture - Final 09/06/19 07:19 Blood Blood Culture Gram Stain - Final 09/06/19 07:19 Blood Blood Culture - Final Methicillin resist S. aureus 09/07/19 06:28 Blood Blood Culture - Final 09/06/19 07:19 Blood Blood Culture - Final 09/04/19 05:54 Blood Blood Culture Gram Stain - Final 09/04/19 05:54 Blood Blood Culture - Final Methicillin resist S. aureus 09/03/19 06:39 Blood Blood Culture Gram Stain - Final 09/03/19 06:39 Blood Blood Culture - Final Methicillin resist S. aureus 08/31/19 02:48 Urine,Clean Catch Urine Culture - Final Summer glabrata 08/31/19 22:29 Blood Blood Culture Gram Stain - Final 08/31/19 22:29 Blood Blood Culture - Final Methicillin resist S. aureus 08/31/19 22:03 Blood Blood Culture Gram Stain - Final 08/31/19 22:03 Blood Blood Culture - Final Methicillin resist S. aureus 09/04/19 05:54 Blood Blood Culture - Final 09/03/19 06:39 Blood Blood Culture - Final 08/31/19 01:55 Blood Blood Culture Gram Stain - Final 08/31/19 01:55 Blood Blood Culture - Final Methicillin resist S. aureus 08/31/19 22:03 Blood Blood Culture - Final 08/31/19 22:29 Blood Blood Culture - Final 08/31/19 01:55 Blood Blood Culture - Final Assessment and Plan (1) Bacteremia Narrative/Plan: 79-year-old male who has a history of diabetes, Parkinson's disease and history of bladder cancer that has been treated with surgical intervention as well as intravesicular treatment. He now presents with a worsening of his status showing evidence of a high-grade fever, leukocytosis, elevated lactic acid which are all consistent with recurrent sepsis from urinary system in this debilitated gentleman. Antibiotic therapy was begun with vancomycin based on his recent urine cultures that showed evidence of MRSA and enterococcus that was not vancomycin resistant. There is evidence of the positive blood culture with gram-positive cocci. The patient has had an echocardiogram done earlier this year without evidence of any severe valvular disease. At this time with continued vancomycin therapy. Will request follow blood cultures to be performed to evaluate clearance of bacteremia with treatment of antibiotic therapy. With the development of bacteremia will need outpatient intravenous antibiotic therapy. The lower extremities evidence of chronic edema but there does not appear to be any open ulcerations or cellulitis, local care with elevation and compression stockings could be helpful. 09/02/2019 patient is bit stronger, but has evidence of ongoing positive blood cultures. Conservatively to urinary source and ultrasound of the kidneys has been requested to evaluate for any type of obstruction problem or renal abscess. Also perinephric abscess. By November vancomycin continues. We'll follow blood cultures again tomorrow to see be certain occurs bacteremia with therapy. He 15 feels slightly better but still has ongoing acute illness at this time. 09/05/2019 the patient remains chronically ill feeling somewhat poorly. He is having improvement of his fever but there remains ongoing positive blood cultures. With this we'll transition vancomycin to daptomycin and high-dose. We'll monitor a weekly CK level. Once we have clearance of his bacteremia will need some type of IV access to allow treatment post hospital stay. The etiology of the ongoing bacteremia could be the clots within the left atrium and may require a longer time for clearance of his bacteremia. There is no evidence of any urinary source as noted by the relatively normal renal ultrasound. Patient does feel somewhat better than admission and hopefully be able to start with the discharge plan. 09/06/2019 the patient had SAL performed that shows evidence of the left atrial clot in this is the likely etiology of his persistent bacteremia. Antibiotic therapy was altered yesterday to high-dose daptomycin with evidence of vancomycin failure. We'll continue to monitor and follow blood cultures are reportedly been performed. The patient however is much more sedated today. He has not really arousing very well. Concerns are brought to the nurse to contact the hospitalist to ensure that this has not been a significant change of his status which is concerning because of his persistent bacteremia and left atrial clot. 09/07/2019 the patient remains significantly ill with ongoing bacteremia, ongoing altered mentation but is hematologically stable. Antibiotic therapy continues with daptomycin which was just changed and will add a few doses of gentamicin to try to clear the bacteremia. It appears that the clot in the left atrium is the nidus for the current and ongoing bacteremia. His prognosis is poor and appropriately has been made no code at this point in time. If bacte remia clears he will then require 6 weeks of intravenous antibiotic therapy and rehab facility. 09/09/2019 the patient has some improvement of his status today. His mentation is definitely improved since his last evaluation. However he continues evidence of positive blood cultures. Antibiotic therapy is ready been transitioned from vancomycin to high-dose daptomycin. Despite this there are still some positive blood cultures. Gentamicin was added but he with this there appears to be some positive blood cultures. We'll add Rocephin and attempt for further synergistic bacteriocidal effect the try to clear his bacteremia. He is on Sinemet and is not a candidate for Zyvox therapy. The patient fortunately is feeling somewhat better, has no fever and leukocytosis is improved over time. Follow cultures are being followed. 09/11/2019 the patient is with some further improvement today. He was up with a walker transferring from the bed to chair. He was generally unassisted except with a walker. He is feeling slightly better. Still feels quite poorly overall. We discussed the ongoing bacteremia despite the combination of antibiotics at this time. So far he has failed vancomycin, combination of vancomycin and gentamicin, accommodation of daptomycin and gentamicin, Rocephin was also added to a combination of try to further obtain some synergy which has not been effective. The daptomycin will be transitioned to linezolide, the staff is instructed about the importance of following his blood pressure should be monitored through his infusion. Interaction is possible because of the medications but with his failure of all attempts so far is required at this time. The 09/12/2019 the patient is a bit sleepy today but continues to have some improvement. He has noted the patient has ongoing bacteremia on the basis of his left atrial appendage clot that is infected with MRSA. Multiple antibiotic regimens have been tried. He has now been placed on Zyvox were awaiting some follow-up blood cultures to see if this will allow clearance of his bacteremia that was not clear despite combination of multiple prior antibiotics. Patient does seem to be stable and feeling slightly better. She's had no toxicity from the addition of the Zyvox. 09/13/2019 the patient is more awake and interactive today. Evidence of his chronic pain he is doing a bit better today appetite is fair. Nursing staff relates in no acute issues. Follow blood cultures are process and so far her negative however there just several hours old. Hopefully with the current change of antibiotic therapy to Zyvox to have clearance of his persistent bacteremia from the left atrial clot. 09/14/2019 patient seems to be in better spirits today. Seems to be feeling better and is having a visit with his . Silvadene very well and patient's is encouraged to bring some food from home which may stimulate his appetite. Blood culture has now turned positive again for what appears to be staph. However it considerably longer for this blood culture did become positive hopefully signaling that the bacteremia will be responding to the current antibiotic therapy changed to Zyvox. This will continue with follow blood cultures are again requested. Zyvox continues. His acute kidney injury is being monitored. He is receiving his anticoagulation regarding the left atrial clot it appears to be the focus of his ongoing bacteremia. 09/15/2019 the blood culture has again become positive but it has taken nearly 48 hours to become positive which is the longest lag time we've had so far and blood cultures becoming positive. We'll continue Zyvox and follow cultures are process which will hopefully be negative and allow the discharge plan to proceed with his many weeks of Zyvox will be planned. He is definitely feeling better at this time. 09/16/2019 the patient is doing somewhat better today. Interestingly appears there is finally evidence of clearance of his bacteremia. We have blood cultures now greater than 24 hours they remain negative for MRSA. The Zyvox therapy which has been the last series of antibiotics appears to have finally allowed clearance the bacteremia. If he's been ready for transfer to the rehab facility to ensure that they will allow Zyvox at the facility, it can be oral at 600 mg twice per day. He will receive at least 6 weeks. He'll 09/19/2019 the patient has now had some improvement in this continues. Importantly the bacteremia which was present for so many days has now cleared with the utilization of Zyvox. Working with the discharge planners to ensure that he gets 6 weeks of Zyvox 600 mg orally twice per day will be required given his current situation. The patient will need to follow-up with Dr. Bueno in the office for further infectious disease evaluations, he should follow there in 3 and 6 weeks. The left atrial clot appears to be the etiology of the persistence of the bacteremia that has now improved. 09/20/2019 the patient is having improvement in his Bactrim is finally cleared. He is now having acute renal failure which is causing some change of his mental status. He does acknowledge me when I entered the room and sleeps the rest of the exam. The acute renal failure appears to multifactorial including his uncontrolled infection with his persistent bacteremia with multiple antibiotics including vancomycin and gentamicin. He is now on Zyvox. Oral Zyvox will continue in these being seen by nephrology to have any further plans. Family is aware of his poor status. 09/21/2019 the patient's status remains poor however his acute failure seems to be improving and there is been no further increase in his creatinine. Continue to monitor him on Zyvox for the MRSA bacteremia and sepsis is responded well to antibiotic therapy. Likely his head difficulties with a plethora of antibiotics including vancomycin and gentamicin while we were trying to clear the bacteremia. Tolerating Zyvox while this point in time and will continue. Discharge plan is actively in process. He is followed by nephrology closely. 09/24/2019 the patient's acute renal failure is started to show some improvement. He has tolerated hydration well. Is followed closely by nephrology. Once cleared he will be transferred to the extended care facility to complete his 6-8 week course of oral Zyvox for his protracted MRSA bacteremia due to the clot in his left atrium. The creatinine is down to 3.08 today and he is comfortable. Current Visit: Yes Status: Acute Code(s): R78.81 - BACTEREMIA SNOMED Code(s): 2933926 (2) Urinary tract infection Current Visit: Yes Status: Acute Code(s): N39.0 - URINARY TRACT INFECTION, SITE NOT SPECIFIED SNOMED Code(s): 72874941 (3) Leukocytosis Current Visit: Yes Status: Acute Code(s): D72.829 - ELEVATED WHITE BLOOD CELL COUNT, UNSPECIFIED SNOMED Code(s): 786089897 (4) Acute sepsis Current Visit: Yes Status: Acute Code(s): A41.9 - SEPSIS, UNSPECIFIED ORGANISM SNOMED Code(s): 31389379
[2019-09-24 17:15] LABS: Glucose,Whole Blood 128 mg/dL (75-99)
[2019-09-24 20:54] LABS: Glucose,Whole Blood 151 mg/dL (75-99)
[2019-09-24] MEDS: INSULIN DETEMIR (LEVEMIR) 100 UNIT/ML SYR SQ SCH (22:44)
[2019-09-25] MEDS: LEVOTHYROXINE 100 MCG TAB PO SCH (06:09)
[2019-09-25] MEDS: SODIUM CHLORIDE 0.9% 1,000 ML IV SCH ×2 (06:12→17:32)
[2019-09-25 07:20] LABS: Glucose,Whole Blood 92 mg/dL (75-99)
[2019-09-25 07:22] LABS: Calcium 8.8 mg/dL (8.4-10.2); Potassium 4.8 mmol/L (3.5-5.1)
[2019-09-25] MEDS: INSULIN ASPART (NovoLOG) 100 UNIT/ML VIAL SQ SCH ×4 (08:20→21:22)
[2019-09-25] MEDS: CARBIDOPA-LEVODOPA 25-100 MG 1 EACH TAB PO SCH ×3 (09:09→21:26)
[2019-09-25] MEDS: APIXABAN 5 MG TAB PO SCH ×2 (09:09→21:26)
[2019-09-25] MEDS: METOPROLOL TARTRATE 25 MG TAB PO SCH ×2 (09:10→21:26)
[2019-09-25] MEDS: amLODIPine 10 MG TAB PO SCH (09:10)
[2019-09-25] MEDS: LINEZOLID 600 MG TAB PO SCH ×2 (09:10→21:26)
[2019-09-25] MEDS: ALLOPURINOL 100 MG TAB PO SCH (09:12)
[2019-09-25 09:20] LABS: Glucose,Whole Blood 73 mg/dL (75-99)
[2019-09-25 11:56] LABS: Glucose,Whole Blood 86 mg/dL (75-99)
--- NOTE | 2019-09-25 13:34 | P.PN ---
Subjective 73-year-old male came in because of possible Infection as patient felt quite weak and lethargic found to have high-grade fever found to be septic with the lactic acidosis. Patient does take Lasix at home regimen of history of congestive heart failure. Patient does have Parkinson's and is on carbidopa levodopa for that. Patient lowered himself to Because of Generalized Weakness. Patient Chest X-Ray Did Not Show Pneumonia but Urine Is Significant Abnormality Patient Does Have History of UTI in the past Patient Has Enterococcus Which Is Resistant to Penicillin but Sensitive to Vancomycin. Patient Also Had MRSA UTI in the past. Urine Cultures Blood Cultures Were Obtained. 09/01/2019 Patient is lying in bed in no acute distress with no acute overnight issues. Patient states that he continues to feel weak and has been working with PT/OT. Infectious disease is following. Patient's blood cultures have resulted with presumptive MRSA and repeat blood cultures are pending at this time. Patient is currently on IV antibiotics in the form of ceftriaxone and vancomycin and will continue at this time. Patient denies any chest pain, shortness of breath, or palpitations. Patient has been afebrile. Patient denies any nausea or vomiting and is tolerating diet. Patient states that he has been falling more frequently at home in case management and social work are following for discharge planning as the patient may require rehab upon discharge. Will continue to monitor closely. 09/02/2019 Patient is lying in bed in no acute distress with no acute overnight issues. Repeat blood cultures have shown presumptive MRSA. Infectious disease is following. Patient is having some right knee pain an x-ray was done showing no fracture nor dislocation and joint spaces are normal with no signs of joint effusion. Patient is currently on IV antibiotics in the form of vancomycin and will continue at this time. Patient is on gentle IV hydration at 75mL/hr his creatinine is improving and is currently 1.56. White blood count is trending down and is currently 11.3. Will repeat a.m. labs. Cardiology is consulted and is pending at this time. Will continue to monitor vital signs and labs closely. 09/03/2019 Patient had persistent bacteremia will obtain ultrasound of the kidney to rule out any perinephric abscess along with the possible endocarditis. Patient is feeling a bit better today. Afebrile. 09/04/2019 Blood cultures from yesterday were negative. Patient will undergo SAL tomorrow ultrasound of the kidney did not show any perinephric abscess. Patient is feeling a little stronger today Constitutional: Denied any fatigue denied any fever. Cardio vascular: denied any chest pain, palpitations Gastrointestinal denied any nausea vomiting Pulmonary: Denied any shortness of breath cough Neurologic denied any new focal deficits 09/05/2019 Patient is lying in bed in no acute distress with no acute overnight issues. Patient is to undergo a SAL today around noon. Will await report. Patient is quite lethargic and continues to fall in and out of sleep while conversing. Currently patient denies any chest pain, shortness of breath, or palpitations. Patient is afebrile. Patient denies any nausea or vomiting and has been tolerating diet. Patient states he is tired today. Blood cultures from yesterday have a preliminary reading of gram-positive cocci. Infectious disease is following. Will continue to monitor closely. 09/06/2019 Patient is sitting up in the chair in no acute distress with no acute overnight issues. Cardiology and infectious disease are following. Patient underwent a SAL yesterday showing no definite evidence of vegetations on the aortic valve and no vegetation noted on the mitral or tricuspid valves but did have a thrombus in the left atrial appendage that is about 1 cm in size. LV systolic function is normal and interatrial septum is intact. Patient was started on Eliquis and will continue at this time. Patient's blood cultures continue to show MRSA and will repeat blood cultures daily to monitor closely. Patient is currently on IV antibiotics in the form of daptomycin and will continue at this time. Vancomycin was discontinued. Currently patient denies any chest pain, shortness of breath, or palpitations. Patient has been afebrile. Patient denies any nausea or vomiting and has been tolerating diet. Patient States that he is urinating well with no issues but has not had a bowel movement in 3 days. Dulcolax was ordered. 09/07/2019 Patient is sitting up in the chair in no acute distress with no acute overnight issues. Family is at the bedside. Discussed with the family and patient at length today about CODE STATUS and patient's wishes are to be made a no code as he states "he does not want to be a vegetable something were to happen." Patient is much more awake and alert today and is sitting up having full conversation. Patient denies any chest pain, shortness of breath, or palpitations. Patient is afebrile. She denies any nausea or vomiting and is tolerating diet. Patient's repeat blood cultures continue to be positive and are showing gram-positive cocci. Patient continues to have elevated blood pressure and Norvasc 10 mg will be added today. Will continue to monitor closely. Patient is currently on IV antibiotics in the form of daptomycin and will continue at this time. Infectious disease is following. 09/08/2019 patient's last blood cultures that was positive at from 26 of this month. Patient is still lethargic 09/09/2019 Patient remained is lethargic no significant change in his clinical condition patient is bit hypoglycemic today discontinue the pre-meal insulin will discontinue sliding scale insulin will cut down the Lantus dose. Patient blood cultures from are clear. Last positive blood cultures from the 07 September Mr. Peterson is a 73-year-old male with chronic medical conditions including atrial flutter, congestive heart failure, COPD, diverticulitis, hypertension, thyroid disorder, bladder cancer coming into the hospital for fevers and lethargy. The workup for his fever with showed left atrial thrombus. And his blood cultures have been continuously positive for MRSA. Patient is currently on IV daptomycin , gentamicin and ceftriaxone as per DORETHA Childs recommendations. 09/22/2019 Patient is sitting up in the chair much more alert and awake today having full conversation about his family in no acute distress. No acute overnight issues. Spoke with nursing staff about trying to obtain a urine sample as we have been unsuccessful thus far as he is sometimes incontinent and is brief or will urinate while using the commode that is contaminated with feces. A condom catheterization was attempted with no success. Will continue to attempt obtaining a specimen at this time. Nephrology is following closely. Patient is currently maintained on IV normal saline gentle hydration at 50-75 ML per hour and will continue at this time. Spoke with the today about his creatinine is elevated again at 3.22 and we will not be sending him to [facility] today. We'll continue to monitor labs closely. Patient was transitioned oral Zyvox and will continue this. Infectious disease is following. 09/23/2019 Patient is sitting up in the chair in no acute distress with no acute overnight issues. Urinalysis was obtained via straight catheterization and is negative. Creatinine today is slightly improved and is currently 3.01. Will continue with gentle IV hydration of normal saline at 75 ML per hour. Nephrology is following closely. Infectious disease is following as well. Patient is maintained on oral Zyvox and will continue at this time. Will repeat a.m. labs to monitor c reatinine closely. 09/24/2019 Patient admitted comfortable not in distress. He denies chest pain or dyspnea.is saturating 92% on 2 L oxygen via nasal cannula. His creatinine is slightly trending down to 3.0 today. He remains on oral Zyvox, Eliquis 5 mg and normal saline at 75 mL/h 09/25/2019 patient is awake and oriented but he remains lethargic.vitals are stable with a blood pressure slightly elevated. Creatinine is starts improving and coming down and was 2.79 today., Expecting further improvement tomorrow and will give the patient currently on normal saline at 75 mL/h. On discharge patient will go on to extended care facility Objective - Vital Signs Vital signs: Vital Signs Temp 98.7 F 09/25/19 06:40 Pulse 68 09/25/19 06:40 Resp 18 09/25/19 08:00 BP 163/74 09/25/19 06:40 Pulse Ox 95 09/25/19 06:40 Intake & Output 09/24/19 09/25/19 09/25/19 18:59 06:59 18:59 Intake Total 650 180 Output Total 200 750 Balance 450 -750 180 Weight 111.5 kg Intake: IV 180 Sodium Chloride 0.9% 1, 180 000 ml @ 75 mls/hr IV . [id number] [facility] Rx#:[id number] Oral 650 Output: Urine 200 750 Other: Voiding Method Diaper Incontinent # Voids 1 # Bowel Movements 1 - Exam -GENERAL: The patient is alert and oriented x3. Patient is awake and alert and in no acute distress.but he is tired and lethargic HEENT: Pupils are round and equally reacting to light. EOMI. No scleral icterus. No conjunctival pallor. Normocephalic, atraumatic. No pharyngeal erythema. No thyromegaly. CARDIOVASCULAR: S1 and S2 present. No murmurs, rubs, or gallops. PULMONARY: Diminished breath sounds at the bases otherwise chest is clear to auscultation with no wheezing or crackles noted. ABDOMEN: Soft, non-tender, non-distended, normoactive bowel sounds. No palpable organomegaly. MUSCULOSKELETAL: No joint swelling or deformity. EXTREMITIES: No cyanosis, clubbing, mild bilateral lower extremity and pedal edema noted. NEUROLOGICAL: Gross neurological examination did not reveal any focal deficits. SKIN: No rashes. No open ulcerations or lesions noted - Labs CBC & Chem 7: 09/19/19 06:07 09/25/19 06:40 Labs: Abnormal Lab Results - Last 24 Hours (Table) 09/24/19 09/24/19 09/25/19 Range/Units 17:03 20:40 06:40 BUN 32 H (9-20) mg/dL Creatinine 2.79 H (0.66-1.25) mg/dL POC Glucose (mg/dL) 128 H 151 H (75-99) mg/dL 09/25/19 Range/Units 09:08 BUN (9-20) mg/dL Creatinine (0.66-1.25) mg/dL POC Glucose (mg/dL) 73 L (75-99) mg/dL Assessment and Plan Assessment: -Severe sepsis secondary to urinary tract infection Repeat blood cultures thus far from 09/14 and 09/15 have been negative. Patient's IV antibiotics have been transitioned to oral Zyvox . Infectious disease is following. -Extensive venous stasis dermatosis and bilateral pedal edema from venous stasis dermatosis Lasix will be held temporarily because of sepsis. -Gait dysfunction -Type 2 diabetes mellitus, uncontrolled -Generalized weakness secondary to sepsis -Hypertension -Parkinson's -Hypothyroidism -COPD without any acute exacerbation -Acute kidney injury: From sepsis and Lasix is contributing to his acute renal failure -Chronic kidney disease stage 2-3 -Diabetic peripheral neuropathy. Plan: this is a pleasant 79 years old male who presents with UTI and bacteremia from MRSA microorganisms. Patient is on Zyvox as per ID team. His creatinine trended up from baseline of 1.1-1.2-3.0 yesterday. However he is of normal sa line at 75 blade and his creatinine trended down. Continue with IV fluids.Follow-up recommendation by nephrology and ID team's. Labs and medication were reviewed.. Continue same treatment. Continue with symptomatic treatment. Resume home medication. Monitor lytes and vitals. DVT and GI prophylaxis. Further recommendations of the clinical course of the patient DVT prophylaxis: Eliquis GI Prophylaxis: Pepcid PT/OT: fernando Prognosis is guarded
[2019-09-25 17:11] LABS: Glucose,Whole Blood 93 mg/dL (75-99)
--- NOTE | 2019-09-25 19:28 | PN ---
PROGRESS NOTE The patient is seen for followup for acute kidney injury mainly ATN currently slowly improving. The patient is maintained on Zyvox for persistent MRSA bacteremia. He did have UTI initially with urine culture growing Summer glabrata. Repeat UA showed improving pyuria. No significant hematuria was noted. There is no evidence of obstructive uropathy on ultrasound. PHYSICAL EXAMINATION: On examination today, blood pressure was 163/74, heart rate 68 per minute, patient is afebrile. Examination of the heart S1, S2. Examination of lungs decreased breath sounds at bases. Abdomen is soft, nontender. Examination of lower extremities shows chronic skin changes. No significant edema is noted. LABS: Show sodium 139, potassium 4.8, chloride 104. BUN 32, creatinine 2.79. ASSESSMENT: 1. Acute kidney injury, acute tubular necrosis, currently improving. Continue gentle IV hydration. Continue to encourage increased oral intake. 2. Persistent MRSA bacteremia with repeat cultures currently negative. SAL did not show any vegetation. 3. Hypertension currently controlled. 4. Chronic kidney disease with a previous creatinine as low as 1.2 mg/dL most likely secondary to nephrosclerosis. PLAN: Continue to encourage increased oral intake. Avoid nephrotoxic medications. Continue to monitor renal function. MMODL / IJN: [id number] /
[2019-09-25 20:52] LABS: Glucose,Whole Blood 92 mg/dL (75-99)
[2019-09-25] MEDS: INSULIN DETEMIR (LEVEMIR) 100 UNIT/ML SYR SQ SCH (21:22)
[2019-09-26] MEDS: ACETAMINOPHEN TAB 325 MG TAB PO PRN (01:46)
[2019-09-26] MEDS: SODIUM CHLORIDE 0.9% 1,000 ML IV SCH ×2 (05:37→22:34)
[2019-09-26] MEDS: LEVOTHYROXINE 100 MCG TAB PO SCH (05:37)
[2019-09-26 07:14] LABS: Glucose,Whole Blood 114 mg/dL (75-99)
[2019-09-26] MEDS: INSULIN ASPART (NovoLOG) 100 UNIT/ML VIAL SQ SCH ×4 (08:52→21:03)
[2019-09-26] MEDS: CARBIDOPA-LEVODOPA 25-100 MG 1 EACH TAB PO SCH ×3 (09:19→21:08)
[2019-09-26] MEDS: APIXABAN 5 MG TAB PO SCH ×2 (09:20→21:08)
[2019-09-26] MEDS: ALLOPURINOL 100 MG TAB PO SCH (09:20)
[2019-09-26] MEDS: METOPROLOL TARTRATE 25 MG TAB PO SCH ×2 (09:20→21:08)
[2019-09-26] MEDS: amLODIPine 10 MG TAB PO SCH (09:20)
[2019-09-26] MEDS: LINEZOLID 600 MG TAB PO SCH ×2 (09:20→22:35)
--- NOTE | 2019-09-26 10:46 | P.PN ---
Subjective Patient is seen in follow-up for acute kidney injury on chronic kidney disease. Patient has chronic kidney disease stage III with baseline creatinine in the range of 1.1-1.3. Currently maintained on antibiotics for MRSA bacteremia. He is receiving normal saline at 75 mL an hour. He has been voiding. Oral intake is fair. Renal function slightly worse. Creatinine 2.94 today. Vital signs are stable. General: The patient appeared well nourished and normally developed. HEENT: Head exam is unremarkable. Neck is without jugular venous distension. LUNGS: Lungs are clear to auscultation and percussion. Breath sounds decreased. HEART: Rate and Rhythm are regular. First and second heart sounds normal. No murmurs, rubs or gallops. ABDOMEN: Abdominal exam reveals normal bowel sounds. Non-tender and non- distended. No evidence of peritonitis. EXTREMITITES: No clubbing, cyanosis, or edema. Chronic changes noted. Objective - Vital Signs Vital signs: Vital Signs Temp 98.1 F 09/26/19 08:00 Pulse 67 09/26/19 00:00 Resp 12 09/26/19 08:00 BP 146/69 09/26/19 08:00 Pulse Ox 91 L 09/26/19 08:00 Intake & Output 09/25/19 09/26/19 09/26/19 18:59 06:59 18:59 Intake Total 180 240 Balance 180 240 Weight 113 kg Intake: IV 180 Sodium Chloride 0.9% 1, 180 000 ml @ 75 mls/hr IV . [id number] [facility] Rx#:[id number] Oral 240 Other: Voiding Method Urinal Diaper Incontinent # Voids 3 1 - Labs CBC & Chem 7: 09/19/19 06:07 09/26/19 06:11 Labs: Abnormal Lab Results - Last 24 Hours (Table) 09/26/19 09/26/19 Range/Units 06:11 07:03 BUN 31 H (9-20) mg/dL Creatinine 2.94 H (0.66-1.25) mg/dL Glucose 110 H (74-99) mg/dL POC Glucose (mg/dL) 114 H (75-99) mg/dL Assessment and Plan Plan: Assessment: 1. Acute kidney injury secondary to ATN secondary to infection. Creatinine 2.94 today. 2. Chronic kidney disease stage III with baseline creatinine in the range of 1.1-1.3. 3. MRSA bacteremia maintained on antibiotics. 4. Hypertension with chronic kidney disease. Controlled. 5. Insulin-dependent diabetes mellitus. Plan: Maintain normal saline at 75 mL an hour. Check serial bladder scans to make sure no urinary retention. Renal diet. Repeat electrolytes in the morning.
[2019-09-26 12:09] LABS: Glucose,Whole Blood 153 mg/dL (75-99)
--- NOTE | 2019-09-26 16:25 | P.PN ---
Subjective Progress Note Date: 09/26/19 Principal diagnosis: 73-year-old male came in because of possible Infection as patient felt quite weak and lethargic found to have high-grade fever found to be septic with the lactic acidosis. Patient does take Lasix at home regimen of history of congestive heart failure. Patient does have Parkinson's and is on carbidopa levodopa for that. Patient lowered himself to Because of Generalized Weakness. Patient Chest X-Ray Did Not Show Pneumonia but Urine Is Significant Abnormality Patient Does Have History of UTI in the past Patient Has Enterococcus Which Is Resistant to Penicillin but Sensitive to Vancomycin. Patient Also Had MRSA UTI in the past. Urine Cultures Blood Cultures Were Obtained. 09/01/2019 Patient is lying in bed in no acute distress with no acute overnight issues. Patient states that he continues to feel weak and has been working with PT/OT. Infectious disease is following. Patient's blood cultures have resulted with presumptive MRSA and repeat blood cultures are pending at this time. Patient is currently on IV antibiotics in the form of ceftriaxone and vancomycin and will continue at this time. Patient denies any chest pain, shortness of breath, or palpitations. Patient has been afebrile. Patient denies any nausea or vomiting and is tolerating diet. Patient states that he has been falling more frequently at home in case management and social work are following for discharge planning as the patient may require rehab upon discharge. Will continue to monitor closely. 09/02/2019 Patient is lying in bed in no acute distress with no acute overnight issues. Repeat blood cultures have shown presumptive MRSA. Infectious disease is f ollowing. Patient is having some right knee pain an x-ray was done showing no fracture nor dislocation and joint spaces are normal with no signs of joint effusion. Patient is currently on IV antibiotics in the form of vancomycin and will continue at this time. Patient is on gentle IV hydration at 75mL/hr his creatinine is improving and is currently 1.56. White blood count is trending down and is currently 11.3. Will repeat a.m. labs. Cardiology is consulted and is pending at this time. Will continue to monitor vital signs and labs closely. 09/03/2019 Patient had persistent bacteremia will obtain ultrasound of the kidney to rule out any perinephric abscess along with the possible endocarditis. Patient is feeling a bit better today. Afebrile. 09/04/2019 Blood cultures from yesterday were negative. Patient will undergo SAL tomorrow ultrasound of the kidney did not show any perinephric abscess. Patient is feeling a little stronger today Constitutional: Denied any fatigue denied any fever. Cardio vascular: denied any chest pain, palpitations Gastrointestinal denied any nausea vomiting Pulmonary: Denied any shortness of breath cough Neurologic denied any new focal deficits 09/05/2019 Patient is lying in bed in no acute distress with no acute overnight issues. Patient is to undergo a SAL today around noon. Will await report. Patient is quite lethargic and continues to fall in and out of sleep while conversing. Currently patient denies any chest pain, shortness of breath, or palpitations. Patient is afebrile. Patient denies any nausea or vomiting and has been bryon erating diet. Patient states he is tired today. Blood cultures from yesterday have a preliminary reading of gram-positive cocci. Infectious disease is following. Will continue to monitor closely. 09/06/2019 Patient is sitting up in the chair in no acute distress with no acute overnight issues. Cardiology and infectious disease are following. Patient underwent a SAL yesterday showing no definite evidence of vegetations on the aortic valve and no vegetation noted on the mitral or tricuspid valves but did have a thrombus in the left atrial appendage that is about 1 cm in size. LV systolic function is normal and interatrial septum is intact. Patient was started on Eliquis and will continue at this time. Patient's blood cultures continue to show MRSA and will repeat blood cultures daily to monitor closely. Patient is currently on IV antibiotics in the form of daptomycin and will continue at this time. Vancomycin was discontinued. Currently patient denies any chest pain, shortness of breath, or palpitations. Patient has been afebrile. Patient denies any nausea or vomiting and has been tolerating diet. Patient States that he is urinating well with no issues but has not had a bowel movement in 3 days. Dulcolax was ordered. 09/07/2019 Patient is sitting up in the chair in no acute distress with no acute overnight issues. Family is at the bedside. Discussed with the family and patient at length today about CODE STATUS and patient's wishes are to be made a no code as he states "he does not want to be a vegetable something were to happen." Patient is much more awake and alert today and is sitting up having full conversation. Patient denies any chest pain, shortness of breath, or palpitations. Patient is afebrile. She denies any nausea or vomiting and is tolerating diet. Patient's repeat blood cultures continue to be positive and are showing gram-positive cocci. Patient continues to have elevated blood pressure and Norvasc 10 mg will be added today. Will continue to monitor closely. Patient is currently on IV antibiotics in the form of daptomycin and will continue at this time. Infectious disease is following. 09/08/2019 patient's last blood cultures that was positive at from of this month. Patient is still lethargic 09/09/2019 Patient remained is lethargic no significant change in his clinical condition patient is bit hypoglycemic today discontinue the pre-meal insulin will discontinue sliding scale insulin will cut down the Lantus dose. Patient blood cultures from are clear. Last positive blood cultures from the Nov ember Mr. Peterson is a 73-year-old male with chronic medical conditions including atrial flutter, congestive heart failure, COPD, diverticulitis, hypertension, thyroid disorder, bladder cancer coming into the hospital for fevers and lethargy. The workup for his fever with showed left atrial thrombus. And his blood cultures have been continuously positive for MRSA. Patient is currently on IV daptomycin , gentamicin and ceftriaxone as per DORETHA Childs recommendations. On 09/10/2019- as per the nursing staff report patient is more alert compared to yesterday. He complains of fatigue. Denies having any chest pain or difficulty in breathing. No cough. Denies having any fevers chills or rigors. No abdominal pain nausea vomiting or diarrhea. No dysuria or hematuria. His blood cultures from the are still positive for MRSA. On 09/11/2019 - as per the nursing staff report no acute events reported overnight. Patient is sitting up in a chair by the bedside. He is much more alert and awake compared to yesterday. Patient denies having any chest pain or palpitations. No cough or difficulty in breathing. No fevers chills or rigors. He mentions that his lower extremity edema is still there and he has been dealing with for a long time. Patient's blood cultures from of still positive for MRSA. ID Dr. Childs on board he change daptomycin to linezolid. oN 09/12/19 - Patient is lying in bed appears to be in no acute distress. Patient complains of generalized fatigue and weakness. Denies having any chest pain or palpitations. No weakness of his extremities. No fevers chills or rigors. No cough or difficulty breathing. On reviewing the labs patient's blood cultures from have been still positive for MRSA. He is currently on linezolid and ceftriaxone. 09/13/2019 Patient is sitting up in bed sleeping but easily arousable in no acute distress. No Acute overnight issues. Patient continues to have fatigue and weakness but is arousable. Patient able to answer questions and commands appropriately once a week. Currently patient denies any chest pain, shortness of breath, or palpitations. Patient is afebrile. Patient denies any nausea or vomiting and is tolerating diet. Infectious disease is following closely. Patient was recently transitioned to IV antibiotics in the form of Zyvox along with ceftriaxone. Most recent blood cultures continue to show positive for MRSA. Will await most recent blood culture repeats. 09/14/2019 Patient is sitting up in the bed in no acute distress. Repeat blood cultures preliminary showing gram-positive cocci. No acute overnight issues. Infectious disease is following closely. REVIEW OF SYSTEMS: Cardiovascular: No reports of chest pain or palpitations Respiratory: No reports of shortness of breath or cough Musculoskeletal: Reports of chronic back pain GI: No reports of nausea, vomiting, or diarrhea : No reports of dysuria or retention 09/15/2019 Patient is sitting up in the chair with no acute overnight issues. Repeat blood cultures from 09/13/2019 are showing Staphylococcus aureus. Will await for finalization. Infectious disease is following. Creatinine is slightly elevated at 1.75. Will repeat a.m. labs. 09/16/2019 Patient is sitting up in the chair in no acute distress. Denies any acute overnight issues. Repeat blood cultures from 09/13/2019 have finalized showing MRSA. Continued repeat cultures from 09/14 and 09/15 thus far have been negative. Creatinine today is 2.28. Will continue to closely monitor and repeat labs in the morning. 09/17/2019 Patient is currently sitting in the chair comfortably. No complaints of chest pain or worsening shortness of breath. Blood cultures showed no growth since 09 13 2019. Blood cultures on 09/13/2019 showed MRSA. Currently on Zyvox. Creatinine level is 2.51 today. Patient has been afebrile. Leukocytosis improved. ID is following. 09/18/2019 Patient is currently sitting in a chair comfortably. Blood cultures showed no growth since 10/14/2018. Currently on IV antibiotics. Renal function is fairly stable with creatinine level still elevated at 2.55. Patient is tolerating oral diet. Continued on gentle hydration. ID is following. Current medications reviewed 09/19/2019 Patient is sitting up in bed in no acute distress. Patient appears to be disheveled and continues to remove his gown. When talking with nursing staff patient fell this morning attempting to get up without help and landed on his buttock causing a small skin tear. Patient denies any other trauma at this time. CAT scan of the head was ordered and is negative at this time. Awaiting authorization for [facility] continue rehab. Creatinine slightly elevated today 2.78 and is currently on IV fluids at 50 miles per hour. Will repeat a.m. labs. The last 2 blood cultures have been negative thus far and patient is responding well to the Zyvox. Infectious disease is following. REVIEW OF SYSTEMS: Cardiovascular: No reports of chest pain or palpitations Respiratory: No reports of shortness of breath or cough Musculoskeletal: Reports of chronic back pain GI: No reports of nausea, vomiting, or diarrhea : No reports of dysuria or retention 09/20/2019 Patient is sitting up in bed in no acute distress with no acute overnight issues. Patient continues to be lethargic but is arousable and responds appropriately to commands once a week. Repeat labs today show creatinine is elevated at 3.36. Nephrology was consulted and is currently pending. Patient will be continued on IV antibiotic in the form of Zyvox at this time. Infectious disease is following. Will continue with gentle IV hydration of normal saline with a rate increase from 50 to 100 mL per hour. Will continue to monitor vital signs and labs closely. Patient has received authorization for [facility] for continued PT/OT therapy along with continued antibiotic therapy. 09/21/2019 Patient is lying in bed and is sleeping but easily arousable and appears to be in no acute distress. No Acute overnight issues. at the bedside today and spoke with her about his recent lab values. Creatinine is slightly trending down and is currently 3.18 patient will continue on gentle IV hydration. Nephrology is following. Spoke with the nursing staff about attempting to obtain a urine specimen and to monitor for urinary retention. Patient continues to wear a brief and is incontinent at times has been getting up to the commode and only having contaminated specimens. Patient is currently maintained on IV antibiotics in the form of Zyvox and will continue at this time and we'll transition to oral Zyvox in the outpatient setting at [facility] on the [address]. Discussed with the that if the creatinine continues to trend down and nephrology clears the patient will be able to go to [facility]. 09/22/2019 Patient is sitting up in the chair much more alert and awake today having full conversation about his family in no acute distress. No acute overnight issues. Spoke with nursing staff about trying to obtain a urine sample as we have been unsuccessful thus far as he is sometimes incontinent and is brief or will urinate while using the commode that is contaminated with feces. A condom catheterization was attempted with no success. Will continue to attempt obtaining a specimen at this time. Nephrology is following closely. Patient is currently maintained on IV normal saline gentle hydration at 50-75 ML per hour and will continue at this time. Spoke with the today about his creatinine is elevated again at 3.22 and we will not be sending him to [facility] today. We'll continue to monitor labs closely. Patient was transitioned oral Zyvox and will continue this. Infectious disease is following. 09/23/2019 Patient is sitting up in the chair in no acute distress with no acute overnight issues. Urinalysis was obtained via straight catheterization and is negative. Creatinine today is slightly improved and is currently 3.01. Will continue with gentle IV hydration of normal saline at 75 ML per hour. Nephrology is following closely. Infectious disease is following as well. Patient is maintained on oral Zyvox and will continue at this time. Will repeat a.m. labs to monitor creatinine closely. 09/24/2019 Patient admitted comfortable not in distress. He denies chest pain or dyspnea.is saturating 92% on 2 L oxygen via nasal cannula. His creatinine is slightly trending down to 3.0 today. He remains on oral Zyvox, Eliquis 5 mg and normal saline at 75 mL/h 09/25/2019 patient is awake and oriented but he remains lethargic.vitals are stable with a blood pressure slightly elevated. Creatinine is starts improving and coming down and was 2.79 today., Expecting further improvement tomorrow and will give the patient currently on normal saline at 75 mL/h. On discharge patient will go on to extended care facility 09/26/2019 Patient is sitting up in the chair sleeping but easily arousable. Creatinine is elevated this morning at 2.94. Nephrology is following closely. Patient is maintained on IV normal saline at 75 ML per hour and will continue at this time. Will repeat a.m. labs. Patient is urinating but is often incontinent. Patient is currently on oral Zyvox for bacteremia with MRSA. Infectious disease is following. Review of Systems: Cardiovascular: No reports of chest pain or palpitations Respiratory: No reports of shortness of breath or cough GI: No reports of nausea, vomiting, or diarrhea : No reports of dysuria Active Medications Acetaminophen (Tylenol Tab) 650 mg PO Q6H PRN PRN Reason: Mild Pain Last Admin: 09/26/19 01:46 Dose: 650 mg Documented by: Albuterol Sulfate (Ventolin Nebulized) 2.5 mg INHALATION RT-Q6H PRN PRN Reason: Shortness Of Breath Allopurinol (Zyloprim) 100 mg PO DAILY [facility] Last Admin: 09/26/19 09:20 Dose: 100 mg Documented by: Amlodipine Besylate (Norvasc) 10 mg PO DAILY [facility] Last Admin: 09/26/19 09:20 Dose: 10 mg Documented by: Apixaban (Eliquis) 5 mg PO BID [facility] Last Admin: 09/26/19 09:20 Dose: 5 mg Documented by: Bisacodyl (Dulcolax) 10 mg PO DAILY PRN PRN Reason: Constipation Last Admin: 09/15/19 12:13 Dose: 10 mg Documented by: Carbidopa/Levodopa (Sinemet 25-100) 2 each PO TID [facility] Last Admin: 09/26/19 09:19 Dose: 2 each Documented by: Ergocalciferol (Vitamin D2) 50,000 unit PO Q14D [facility] Last Admin: 09/16/19 08:47 Dose: 50,000 unit Documented by: Sodium Chloride (Saline 0.9%) 1,000 mls @ 75 mls/hr IV .[id number] [facility] Last Admin: 09/26/19 05:37 Dose: 75 mls/hr Documented by: Insulin Aspart (Novolog) 0 unit SQ ACHS [facility]; Protocol Last Admin: 09/26/19 12:12 Dose: 1 unit Documented by: Insulin Detemir (Levemir) 12 unit SQ HS [facility] Last Admin: 09/25/19 21:22 Dose: Not Given Documented by: Levothyroxine Sodium (Synthroid) 100 mcg PO DAILY@0630 [facility] Last Admin: 09/26/19 05:37 Dose: 100 mcg Documented by: Linezolid (Zyvox) 600 mg PO Q12HR [facility] Last Admin: 09/26/19 09:20 Dose: 600 mg Documented by: Metoprolol Tartrate (Lopressor) 25 mg PO BID [facility] Last Admin: 09/26/19 09:20 Dose: 25 mg Documented by: Miscellaneous Information (Potassium Per Protocol) 1 each MISCELLANE DAILY PRN; Protocol PRN Reason: Per Protocol Naloxone HCl (Narcan) 0.2 mg IV Q2M PRN PRN Reason: Opioid Reversal Ondansetron HCl (Zofran) 4 mg IVP Q6HR PRN PRN Reason: Nausea And Vomiting Objective - Vital Signs Vital signs: Vital Signs Temp 98.1 F 09/26/19 15:58 Pulse 67 09/26/19 15:58 Resp 16 09/26/19 15:58 BP 129/56 09/26/19 15:58 Pulse Ox 98 09/26/19 15:58 Intake & Output 09/25/19 09/26/19 09/26/19 18:59 06:59 18:59 Intake Total 180 240 Balance 180 240 Weight 113 kg Intake: IV 180 Sodium Chloride 0.9% 1, 180 000 ml @ 75 mls/hr IV . [id number] [facility] Rx#:[id number] Oral 240 Other: Voiding Method Urinal Diaper Incontinent # Voids 3 1 # Bowel Movements 1 - Exam GENERAL: The patient is alert and oriented x3. Well developed, well nourished. Patient is awake and alert and in no acute distress. Temp is 98.1F, pulse is 67, respirations are 16, blood pressure is 129/56, oxygen is 90% on room air. HEENT: Pupils are round and equally reacting to light. EOMI. No scleral icterus. No conjunctival pallor. Normocephalic, atraumatic. No pharyngeal erythema. No thyromegaly. CARDIOVASCULAR: S1 and S2 present. No murmurs, rubs, or gallops. PULMONARY: Diminished breath sounds at the bases otherwise chest is clear to auscultation with no wheezing or crackles noted. ABDOMEN: Soft, obese, non-tender, non-distended, normoactive bowel sounds. No palpable organomegaly. MUSCULOSKELETAL: No joint swelling or deformity. EXTREMITIES: No cyanosis, clubbing, mild bilateral lower extremity and pedal edema noted. NEUROLOGICAL: Gross neurological examination did not reveal any focal deficits. SKIN: No rashes. No open ulcerations or lesions noted, chronic skin changes noted bilateral lower extremities with no redness or swelling noted - Labs CBC & Chem 7: 09/19/19 06:07 09/26/19 06:11 Labs: Abnormal Lab Results - Last 24 Hours (Table) 09/26/19 09/26/19 09/26/19 Range/Units 06:11 07:03 11:57 BUN 31 H (9-20) mg/dL Creatinine 2.94 H (0.66-1.25) mg/dL Glucose 110 H (74-99) mg/dL POC Glucose (mg/dL) 114 H 153 H (75-99) mg/dL Assessment and Plan Assessment: -Severe sepsis secondary to urinary tract infection Repeat blood cultures thus far from 09/14 and 09/15 have been negative. Patient's IV antibiotics have been transitioned to oral Zyvox . Infectious disease is following. -Extensive venous stasis dermatosis and bilateral pedal edema from venous stasis dermatosis Lasix will be held temporarily because of sepsis. -Gait dysfunction -Type 2 diabetes mellitus, uncontrolled -Generalized weakness secondary to sepsis -Hypertension -Parkinson's -Hypothyroidism -COPD without any acute exacerbation -Acute kidney injury: From sepsis and Lasix is contributing to his acute renal failure -Chronic kidney disease stage 2-3 -Diabetic peripheral neuropathy. -DVT prophylaxis: Eliquis -GI prophylaxis: Pepcid Recommendations and discussion: Recommend to continue current medications, management, and symptomatic treatment. Infectious disease is following. Creatinine today is 2.94. Will repeat am labs and monitor creatinine closely. Nephrology is following. Will continue to monitor closely. Patient will continue normal saline at 75 ML per hour. Encouraged the patient to increase his oral intake. Will continue to monitor for urinary retention with serial bladder scanning as the patient is often incontinent. Case management and social work following as well for placement at subacute rehab once patient is discharged. Authorization for [facility] on the [place] was obtained but may have to be reinitiated once patient is stable to discharge. Patient will continue with oral antibiotic therapy in the form of Zyvox as well as continued PT/OT therapy for strength and mobility. Adenosis is guarded. Further recommendations to follow.
[2019-09-26 17:11] LABS: Glucose,Whole Blood 116 mg/dL (75-99)
[2019-09-26 21:01] LABS: Glucose,Whole Blood 114 mg/dL (75-99)
[2019-09-26] MEDS: INSULIN DETEMIR (LEVEMIR) 100 UNIT/ML SYR SQ SCH (21:13)
--- NOTE | 2019-09-26 23:13 | P.PN ---
Subjective Progress Note Date: 09/26/19 79-year-old male who lives in the family home with his spouse and grandchildren relates that he's been feeling poorly for a few days. He became very weak and actually lowered himself to the ground because he was so weak. EMS was called and he was brought to hospital. He was on evidence of a fever as well as leukocytosis and feeling quite poorly. Patient has a long-standing history of Parkinson's and is a limited historian. He denies severe pain at this time. 09/02/2019 patient remains a poor historian but he is a bit stronger and may have sitting up in the chair. He has no significant complaints. 09/05/2019 patient remains fatigued and feels ill but has been able to sit up in a chair, denies fevers or chills. SAL has now been performed. September 06 2019 the patient is sleepy and difficult to arouse this afternoon. His untouched lunch is next to him. His status is discussed with the nurse. He has been quite sleepy through the morning into the early afternoon. She will reassess if he does awaken make sure there some assistance in eating his meal. 09/07/2019 patient continues to be with ongoing sepsis and ongoing bacteremia despite antibiotic therapy and change of antibiotic therapy daptomycin. He is still very weak and ill which is quite different from his baseline. Discussion occurred with the primary care team yesterday. And the patient is now been appropriate and made no code is receiving ongoing aggressive interventions. September 10 the patient is more awake alert and interactive today. He seems to be modestly comfortable in is not complaining of severe pain. Laboratories reviewed he has evidence of ongoing bacteremia. Sep feels better was able to transfer to the chair unassisted except walker. no fevers feels poorly overall 09/12/2019 patient is fatigued today but no new acute troubles, appetite is adequate. 09/13/2019 the patient is more awake alert and interactive today. He continues to have a relatively good appetite no difficulty eating his dinner. No nausea or emesis. He does have some chronic back pain that is not acutely worse. 09/14/2019 patient sitting up in the chair and his is visiting. He is a bit more awake alert and interactive than he has been. He exhibits a mild sense of humor. Patient's is pleased but is concerned that he is not eating well. 09/15/2019 Patient is again showing some improvement today. He is up in the chair he is eating his lunch without difficulty and voices no severe discomfort. He is uncomfortable but is wondering when he will be well enough to be able to leave hospital. We discussed that he continues having ongoing bacteremic infection related to the left atrial clot that is infected. The cardiovascular team does not believe that they can remove the clot. 09/16/2019 the patient is feeling again better today. Sitting upright eating his meals as a brighter affect. Looking for to transitioning out of the hospital so that he can gain some strength. He is having no fevers or chills. No difficulty with current antibiotic therapy. 09/19/2019 the patient is having some further improvement. Sitting upright eating well and look forward to his transition out of hospital. Nursing staff relates that he was a bit sleepy today appears to be improved at this time. 09/20/2019 the patient has had some worsening of his status. He is now developed some progressive acute renal failure there appears to be multifactorial. 09/21/2019 patient is resting comfortably. Much of an appetite. Her systemic relates that no new acute changes throughout the day. Awaiting rehab placement. 09/24/2019 patient is resting eating better feeling slightly better continues to a rehab placement however with the acute on chronic renal failure is being managed by nephrology before his transfer. 09/26/2019 the patient again has had some increasing dehydration is receiving fluids today. His acute renal failure has waxed and waned in with his poor oral intake is again had an increase nephrology was requested further fluids to be given today. Once stable he'll be going to the extended care facility. All Objective - Vital Signs Vital signs: Vital Signs Temp 98.2 F 09/26/19 19:39 Pulse 76 09/26/19 19:39 Resp 16 09/26/19 19:39 BP 132/65 09/26/19 19:39 Pulse Ox 96 09/26/19 19:39 Intake & Output 09/26/19 09/26/19 09/27/19 06:59 18:59 06:59 Intake Total 240 Balance 240 Weight 113 kg Intake: Oral 240 Other: Voiding Method Urinal Diaper Incontinent # Voids 1 1 # Bowel Movements 1 - Exam 79-year-old male who seems to be comfortable, visiting with his HEENT: Anicteric conjunctiva are pink and moist nasal mucosa grossly intact without significant lesions, there is no thrush. Has dentures Neck: The neck is supple without significant lymphadenopathy or thyromegaly. Lungs: There is symmetrical bilateral air entry with few crackles at the bases no significant wheezing Heart: Irregular with a soft S4. No murmur click or rub Abdomen: Mildly obese, Positive bowel sounds soft and nontender without palpable masses or organomegaly. There was no guarding or rebound. Extremities: The upper extremities have excellent pulses they are symmetric, no significant petechiae or telangiectasia. No splinter hemorrhages were noted. Lower extremities have evidence of extensive bilateral lower extremity edema, skin is thickened toenails are untrimmed no open ulcerations are seen Neuro: Patient is sedated today does not hear well with the care team but daughter relates there was some minimal conversation hour ago. - Labs CBC & Chem 7: 09/19/19 06:07 09/26/19 06:11 Labs: Abnormal Lab Results - Last 24 Hours (Table) 09/26/19 09/26/19 09/26/19 Range/Units 06:11 07:03 11:57 BUN 31 H (9-20) mg/dL Creatinine 2.94 H (0.66-1.25) mg/dL Glucose 110 H (74-99) mg/dL POC Glucose (mg/dL) 114 H 153 H (75-99) mg/dL 09/26/19 09/26/19 Range/Units 17:00 20:59 BUN (9-20) mg/dL Creatinine (0.66-1.25) mg/dL Glucose (74-99) mg/dL POC Glucose (mg/dL) 116 H 114 H (75-99) mg/dL Laboratory Results WBC 10.6 k/uL (3.8-10.6) 09/19/19 06:07 RBC 3.72 m/uL (4.30-5.90) L 09/19/19 06:07 Hgb 11.3 gm/dL (13.0-17.5) L 09/19/19 06:07 Hct 34.6 % (39.0-53.0) L 09/19/19 06:07 MCV 92.9 fL (80.0-100.0) 09/19/19 06:07 MCH 30.2 pg (25.0-35.0) 09/19/19 06:07 MCHC 32.5 g/dL (31.0-37.0) 09/19/19 06:07 RDW 13.3 % (11.5-15.5) 09/19/19 06:07 Plt Count 376 k/uL (150-450) 09/19/19 06:07 Neutrophils % 72 % 09/19/19 06:07 Lymphocytes % 17 % 09/19/19 06:07 Monocytes % 8 % 09/19/19 06:07 Eosinophils % 1 % 09/19/19 06:07 Basophils % 0 % 09/19/19 06:07 Neutrophils # 7.6 k/uL (1.3-7.7) 09/19/19 06:07 Lymphocytes # 1.8 k/uL (1.0-4.8) 09/19/19 06:07 Monocytes # 0.9 k/uL (0-1.0) 09/19/19 06:07 Eosinophils # 0.1 k/uL (0-0.7) 09/19/19 06:07 Basophils # 0.0 k/uL (0-0.2) 09/19/19 06:07 PT 10.4 sec (9.0-12.0) 08/31/19 01:55 INR 1.0 (<1.2) 08/31/19 01:55 APTT 22.1 sec (22.0-30.0) 08/31/19 01:55 Sample Site rrad 09/06/19 16:12 ABG pH 7.43 (7.35-7.45) 09/06/19 16:12 ABG pCO2 37 mmHg (35-45) 09/06/19 16:12 ABG pO2 88 mmHg (83-108) 09/06/19 16:12 ABG HCO3 24 mmol/L (21-25) 09/06/19 16:12 ABG Total CO2 26 mmol/L (19-24) H 09/06/19 16:12 ABG O2 Saturation 97.1 % (94-97) H 09/06/19 16:12 ABG Base Excess 0.2 mmol/L 09/06/19 16:12 Job Test Yes 09/06/19 16:12 FiO2 28 % 09/06/19 16:12 Sodium 138 mmol/L (137-145) 09/26/19 06:11 Potassium 5.0 mmol/L (3.5-5.1) 09/26/19 06:11 Chloride 104 mmol/L (98-107) 09/26/19 06:11 Carbon Dioxide 23 mmol/L (22-30) 09/26/19 06:11 Anion Gap 11 mmol/L 09/26/19 06:11 BUN 31 mg/dL (9-20) H 09/26/19 06:11 Creatinine 2.94 mg/dL (0.66-1.25) H 09/26/19 06:11 Est GFR (CKD-EPI)AfAm 23 (>60 ml/min/1.73 sqM) 09/26/19 06:11 Est GFR (CKD-EPI)NonAf 20 (>60 ml/min/1.73 sqM) 09/26/19 06:11 Glucose 110 mg/dL (74-99) H 09/26/19 06:11 POC Glucose (mg/dL) 114 mg/dL (75-99) H 09/26/19 20:59 POC Glu Revenue Coordinator ID Kiersten, Jenn 09/26/19 20:[address] Glu mg/dL 206 09/01/19 06:30 Hemoglobin A1c 8.8 % (4.0-6.0) H 09/01/19 06:30 Lactic Ac Sepsis Rflx Y 08/31/19 02:45 Plasma Lactic Acid Riley 0.7 mmol/L (0.7-2.0) 09/06/19 16:44 Calcium 9.0 mg/dL (8.4-10.2) 09/26/19 06:11 Total Bilirubin 0.4 mg/dL (0.2-1.3) 09/09/19 06:50 AST 15 U/L (17-59) L 09/09/19 06:50 ALT 8 U/L (21-72) L 09/09/19 06:50 Alkaline Phosphatase 74 U/L (38-126) 09/09/19 06:50 Troponin I 0.018 ng/mL (0.000-0.034) 08/31/19 01:55 Total Protein 5.5 g/dL (6.3-8.2) L 09/09/19 06:50 Albumin 2.5 g/dL (3.5-5.0) L 09/09/19 06:50 Urine Color Yellow 09/23/19 13:20 Urine Appearance Clear (Clear) 09/23/19 13:20 Urine pH 6.5 (5.0-8.0) 09/23/19 13:20 Ur Specific Mobile 1.010 (1.001-1.035) 09/23/19 13:20 Urine Protein 1+ (Negative) H 09/23/19 13:20 Urine Glucose (UA) Negative (Negative) 09/23/19 13:20 Urine Ketones Negative (Negative) 09/23/19 13:20 Urine Blood Negative (Negative) 09/23/19 13:20 Urine Nitrite Negative (Negative) 09/23/19 13:20 Urine Bilirubin Negative (Negative) 09/23/19 13:20 Urine Urobilinogen <2.0 mg/dL (<2.0) 09/23/19 13:20 Ur Leukocyte Esterase Moderate (Negative) H 09/23/19 13:20 Urine RBC 2 /hpf (0-5) 09/23/19 13:20 Urine WBC 43 /hpf (0-5) H 09/23/19 13:20 Urine WBC Clumps Many /hpf (None) H 08/31/19 02:48 Ur Squamous Epith Cells <1 /hpf (0-4) 08/31/19 02:48 Urine Bacteria Rare /hpf (None) H 08/31/19 02:48 Hyaline Casts 3 /lpf (0-2) H 08/31/19 02:48 Urine Mucus Rare /hpf (None) H 08/31/19 02:48 Urine Yeast (Budding) Few /hpf (None) H 08/31/19 02:48 Gentamicin Peak 5.0 ug/mL 09/09/19 09:32 Gentamicin Trough 1.4 ug/mL 09/11/19 13:01 Vancomycin Trough 14.9 ug/mL 09/05/19 06:35 Influenza Type A RNA Not Detected (Not Detectd) 08/31/19 01:55 Influenza Type B (PCR) Not Detected (Not Detectd) 08/31/19 01:55 Microbiology 09/15/19 08:22 Blood Blood Culture - Final No Growth after 144 hours 09/15/19 07:40 Blood Blood Culture - Final No Growth after 144 hours 09/14/19 06:51 Blood Blood Culture - Final No Growth after 144 hours 09/13/19 07:00 Blood Blood Culture Gram Stain - Final 09/13/19 07:00 Blood Blood Culture - Final Methicillin resist S. aureus 09/13/19 07:18 Blood Blood Culture Gram Stain - Final 09/13/19 07:18 Blood Blood Culture - Final Methicillin resist S. aureus 09/13/19 07:00 Blood Blood Culture - Final 09/13/19 07:18 Blood Blood Culture - Final 09/10/19 06:29 Blood Blood Culture Gram Stain - Final 09/10/19 06:29 Blood Blood Culture - Final Methicillin resist S. aureus 09/09/19 06:50 Blood Blood Culture Gram Stain - Final 09/09/19 06:50 Blood Blood Culture - Final Methicillin resist S. aureus 09/10/19 06:29 Blood Blood Culture - Final 09/08/19 08:00 Blood Blood Culture Gram Stain - Final 09/08/19 08:00 Blood Blood Culture - Final Methicillin resist S. aureus 09/09/19 06:50 Blood Blood Culture - Final 09/07/19 06:28 Blood Blood Culture Gram Stain - Final 09/07/19 06:28 Blood Blood Culture - Final Methicillin resist S. aureus 09/08/19 08:00 Blood Blood Culture - Final 09/06/19 07:19 Blood Blood Culture Gram Stain - Final 09/06/19 07:19 Blood Blood Culture - Final Methicillin resist S. aureus 09/07/19 06:28 Blood Blood Culture - Final 09/06/19 07:19 Blood Blood Culture - Final 09/04/19 05:54 Blood Blood Culture Gram Stain - Final 09/04/19 05:54 Blood Blood Culture - Final Methicillin resist S. aureus 09/03/19 06:39 Blood Blood Culture Gram Stain - Final 09/03/19 06:39 Blood Blood Culture - Final Methicillin resist S. aureus 08/31/19 02:48 Urine,Clean Catch Urine Culture - Final Summer glabrata 08/31/19 22:29 Blood Blood Culture Gram Stain - Final 08/31/19 22:29 Blood Blood Culture - Final Methicillin resist S. aureus 08/31/19 22:03 Blood Blood Culture Gram Stain - Final 08/31/19 22:03 Blood Blood Culture - Final Methicillin resist S. aureus 09/04/19 05:54 Blood Blood Culture - Final 09/03/19 06:39 Blood Blood Culture - Final 08/31/19 01:55 Blood Blood Culture Gram Stain - Final 08/31/19 01:55 Blood Blood Culture - Final Methicillin resist S. aureus 08/31/19 22:03 Blood Blood Culture - Final 08/31/19 22:29 Blood Blood Culture - Final 08/31/19 01:55 Blood Blood Culture - Final Assessment and Plan (1) Bacteremia Narrative/Plan: 79-year-old male who has a history of diabetes, Parkinson's disease and history of bladder cancer that has been treated with surgical intervention as well as intravesicular treatment. He now presents with a worsening of his status showing evidence of a high-grade fever, leukocytosis, elevated lactic acid which are all consistent with recurrent sepsis from urinary system in this debilitated gentleman. Antibiotic therapy was begun with vancomycin based on his recent urine cultures that showed evidence of MRSA and enterococcus that was not vancomycin resistant. There is evidence of the positive blood culture with gram-positive cocci. The patient has had an echocardiogram done earlier this year without evidence of any severe valvular disease. At this time with continued vancomycin therapy. Will request follow blood cultures to be performed to evaluate clearance of bacteremia with treatment of antibiotic therapy. With the development of bacteremia will need outpatient intravenous antibiotic therapy. The lower extremities evidence of chronic edema but there does not appear to be any open ulcerations or cellulitis, local care with elevation and compression stockings could be helpful. 09/02/2019 patient is bit stronger, but has evidence of ongoing positive blood cultures. Conservatively to urinary source and ultrasound of the kidneys has been requested to evaluate for any type of obstruction problem or renal abscess. Also perinephric abscess. By November vancomycin continues. We'll follow blood cultures again tomorrow to see be certain occurs bacteremia with therapy. He 15 feels slightly better but still has ongoing acute illness at this time. 09/05/2019 the patient remains chronically ill feeling somewhat poorly. He is having improvement of his fever but there remains ongoing positive blood cultures. With this we'll transition vancomycin to daptomycin and high-dose. We'll monitor a weekly CK level. Once we have clearance of his bacteremia will need some type of IV access to allow treatment post hospital stay. The etiology of the ongoing bacteremia could be the clots within the left atrium and may require a longer time for clearance of his bacteremia. There is no evidence of any urinary source as noted by the relatively normal renal ultrasound. Patient does feel somewhat better than admission and hopefully be able to start with the discharge plan. 09/06/2019 the patient had SAL performed that shows evidence of the left atrial clot in this is the likely etiology of his persistent bacteremia. Antibiotic therapy was altered yesterday to high-dose daptomycin with evidence of vancomycin failure. We'll continue to monitor and follow blood cultures are reportedly been performed. The patient however is much more sedated today. He has not really arousing very well. Concerns are brought to the nurse to contact the hospitalist to ensure that this has not been a significant change of his status which is concerning because of his persistent bacteremia and left atrial clot. 09/07/2019 the patient remains significantly ill with ongoing bacteremia, ongoing altered mentation but is hematologically stable. Antibiotic therapy continues with daptomycin which was just changed and will add a few doses of gentamicin to try to clear the bacteremia. It appears that the clot in the left atrium is the nidus for the current and ongoing bacteremia. His prognosis is poor and appropriately has been made no code at this point in time. If bacteremia clears he will then require 6 weeks of intravenous antibiotic therapy and rehab facility. 09/09/2019 the patient has some improvement of his status today. His mentation is definitely improved since his last evaluation. However he continues evidence of positive blood cultures. Antibiotic therapy is ready been transitioned from vancomycin to high-dose daptomycin. Despite this there are still some positive blood cultures. Gentamicin was added but he with this there appears to be some positive blood cultures. We'll add Rocephin and attempt for further synergistic bacteriocidal effect the try to clear his bacteremia. He is on Sinemet and is not a candidate for Zyvox therapy. The patient fortunately is feeling somewhat better, has no fever and leukocytosis is improved over time. Follow cultures are being followed. 09/11/2019 the patient is with some further improvement today. He was up with a walker transferring from the bed to chair. He was generally unassisted except with a walker. He is feeling slightly better. Still feels quite poorly overall. We discussed the ongoing bacteremia despite the combination of antibiotics at this time. So far he has failed vancomycin, combination of vancomycin and gentamicin, accommodation of daptomycin and gentamicin, Rocephin was also added to a combination of try to further obtain some synergy which has not been effective. The daptomycin will be transitioned to linezolide, the staff is instructed about the importance of following his blood pressure should be monitored through his infusion. Interaction is possible because of the medications but with his failure of all attempts so far is required at this t joel. The 09/12/2019 the patient is a bit sleepy today but continues to have some improvement. He has noted the patient has ongoing bacteremia on the basis of his left atrial appendage clot that is infected with MRSA. Multiple antibiotic regimens have been tried. He has now been placed on Zyvox were awaiting some follow-up blood cultures to see if this will allow clearance of his bacteremia that was not clear despite combination of multiple prior antibiotics. Patient does seem to be stable and feeling slightly better. She's had no toxicity from the addition of the Zyvox. 09/13/2019 the patient is more awake and interactive today. Evidence of his chronic pain he is doing a bit better today appetite is fair. Nursing staff relates in no acute issues. Follow blood cultures are process and so far her negative however there just several hours old. Hopefully with the current change of antibiotic therapy to Zyvox to have clearance of his persistent bacteremia from the left atrial clot. 09/14/2019 patient seems to be in better spirits today. Seems to be feeling better and is having a visit with his . Silvadene very well and patient's is encouraged to bring some food from home which may stimulate his appetite. Blood culture has now turned positive again for what appears to be staph. However it considerably longer for this blood culture did become positive hopefully signaling that the bacteremia will be responding to the current antibiotic therapy changed to Zyvox. This will continue with follow blood cultures are again requested. Zyvox continues. His acute kidney injury is being monitored. He is receiving his anticoagulation regarding the left atrial clot it appears to be the focus of his ongoing bacteremia. 09/15/2019 the blood culture has again become positive but it has taken nearly 48 hours to become positive which is the longest lag time we've had so far and blood cultures becoming positive. We'll continue Zyvox and follow cultures are process which will hopefully be negative and allow the discharge plan to proceed with his many weeks of Zyvox will be planned. He is definitely feeling better at this time. 09/16/2019 the patient is doing somewhat better today. Interestingly appears there is finally evidence of clearance of his bacteremia. We have blood cultures now greater than 24 hours they remain negative for MRSA. The Zyvox therapy which has been the last series of antibiotics appears to have finally allowed clearance the bacteremia. If he's been ready for transfer to the rehab facility to ensure that they will allow Zyvox at the facility, it can be oral at 600 mg twice per day. He will receive at least 6 weeks. He'll 09/19/2019 the patient has now had some improvement in this continues. Importantly the bacteremia which was present for so many days has now cleared with the utilization of Zyvox. Working with the discharge planners to ensure that he gets 6 weeks of Zyvox 600 mg orally twice per day will be required given his current situation. The patient will need to follow-up with Dr. Bueno in the office for further infectious disease evaluations, he should follow there in 3 and 6 weeks. The left atrial clot appears to be the etiology of the persistence of the bacteremia that has now improved. 09/20/2019 the patient is having improvement in his Bactrim is finally cleared. He is now having acute renal failure which is causing some change of his mental status. He does acknowledge me when I entered the room and sleeps the rest of the exam. The acute renal failure appears to multifactorial including his uncontrolled infection with his persistent bacteremia with multiple antibiotics including vancomycin and gentamicin. He is now on Zyvox. Oral Zyvox will continue in these being seen by nephrology to have any further plans. Family is aware of his poor status. 09/21/2019 the patient's status remains poor however his acute failure seems to be improving and there is been no further increase in his creatinine. Continue to monitor him on Zyvox for the MRSA bacteremia and sepsis is responded well to antibiotic therapy. Likely his head difficulties with a plethora of antibiotics including vancomycin and gentamicin while we were trying to clear the bacteremia. Tolerating Zyvox while this point in time and will continue. Discharge plan is actively in process. He is followed by nephrology closely. 09/24/2019 the patient's acute renal failure is started to show some improvement. He has tolerated hydration well. Is followed closely by nephrology. Once cleared he will be transferred to the extended care facility to complete his 6-8 week course of oral Zyvox for his protracted MRSA bacteremia due to the clot in his left atrium. The creatinine is down to 3.08 today and he is comfortable. 09/26/2019 the patient is comfortable in some improvement receiving some fluids today. Nephrology is following and may allow him to be discharged in the next day or 2 if his volume status is more consistent. He will continue on his Zyvox completing at least 42 days of therapy with the persistent bacteremia likely from will need follow-up in the office after his discharge. Current Visit: Yes Status: Acute Code(s): R78.81 - BACTEREMIA SNOMED Code(s): 2013374 (2) Urinary tract infection Current Visit: Yes Status: Acute Code(s): N39.0 - URINARY TRACT INFECTION, SITE NOT SPECIFIED SNOMED Code(s): 41946216 (3) Leukocytosis Current Visit: Yes Status: Acute Code(s): D72.829 - ELEVATED WHITE BLOOD CELL COUNT, UNSPECIFIED SNOMED Code(s): 543694603 (4) Acute sepsis Current Visit: Yes Status: Acute Code(s): A41.9 - SEPSIS, UNSPECIFIED ORGAN ISM SNOMED Code(s): 23243410
[2019-09-27 01:04] VITALS: PULSE 62
[2019-09-27] MEDS: LEVOTHYROXINE 100 MCG TAB PO SCH (05:21)
[2019-09-27 07:08] VITALS: BP 145/68; RESP 15; TEMP 97.9
[2019-09-27 07:20] LABS: Glucose,Whole Blood 130 mg/dL (75-99)
[2019-09-27 07:35] LABS: Calcium 9.2 mg/dL (8.4-10.2); Magnesium 1.9 mg/dL (1.6-2.3); Potassium 5.1 mmol/L (3.5-5.1)
[2019-09-27] MEDS: ALLOPURINOL 100 MG TAB PO SCH (08:13)
[2019-09-27] MEDS: APIXABAN 5 MG TAB PO SCH (08:13)
[2019-09-27] MEDS: amLODIPine 10 MG TAB PO SCH (08:13)
[2019-09-27] MEDS: METOPROLOL TARTRATE 25 MG TAB PO SCH (08:13)
[2019-09-27] MEDS: CARBIDOPA-LEVODOPA 25-100 MG 1 EACH TAB PO SCH (08:14)
[2019-09-27] MEDS: INSULIN ASPART (NovoLOG) 100 UNIT/ML VIAL SQ SCH ×2 (08:16→12:23)
[2019-09-27] MEDS: SODIUM CHLORIDE 0.9% 1,000 ML IV SCH (08:17)
--- NOTE | 2019-09-27 10:31 | P.DS ---
Providers Date of admission: 09/01/19 09:54 Attending physician: Kirstie Isbell Consults: 08/31/19 11:16 Consult Physician Routine Consulting Provider: Maurice Childs Consult Reason/Comments: UTI Do you want consulting provider notified?: Yes 09/02/19 14:39 Consult Physician Urgent Consulting Provider: [facility] Consult Reason/Comments: bacteremia/ rule out endocarditis/ possible SAL Do you want consulting provider notified?: Yes 09/20/19 08:27 Consult Physician Stat Consulting Provider: Ovi Morgan Consult Reason/Comments: elevated creatinine/on manager long term care Zyvox tx for bacteremia Do you want consulting provider notified?: Yes Primary care physician: [facility] Course: final diagnosis UTI with the severe sepsis present on admission. MRSA sepsis Extensive venostasis dermatitis Gait dysfunction Diabetes was type II Generalized weakness Hypertension Parkinson system hypothyroidism COPD Acute kidney injury from sepsis multifactorial Chronic kidney disease stage 2-3 Peripheral neuropathy diabetic DVT prophylaxis GI prophylaxis next Discharge disposition. Patient be discharged in a stable condition with guarded prognosis to [facility]. Total time taken is 35 minutes. History of present illness This 79-year-old gentleman with a past medical history multiple medical problems being followed by [facility] was admitted with a severe sepsis secondary to UTI. Multiple blood cultures showed MRSA. the most recent blood cultures are negative 5 times.The patient was started with Zyvox. Infectious disease and nephrology saw the patient. Creatinine stable. Patient was evaluated by [facility]. ECF rehab is recommended. On exam vitals are stable. Cardio S1-S2 normal. Respirator system few scattered rhonchi. Nervous system mild diffuse weakness. Please referr to medication reconciliation sheet for list of medications. Iinfectious disease has recommended the Zyvox for 42 days. Patient Condition at Discharge: Serious Plan - Discharge Summary Discharge Rx Participant: Yes New Discharge Prescriptions: New Apixaban [Eliquis] 5 mg PO BID #30 tab Linezolid [Zyvox] 600 mg PO Q12H #84 tab Bisacodyl [Dulcolax] 10 mg PO DAILY PRN tablet.dr BUSH Reason: Constipation amLODIPine [Norvasc] 10 mg PO DAILY tab Continue Carbidopa-Levodopa 25-100 mg [Sinemet 25-100 mg] 2 tab PO TID Levothyroxine Sodium [Synthroid] 100 mcg PO DAILY INSULIN ASPART (NovoLOG) [NovoLOG (formulary)] 5 unit SQ AC-TID #1 vial Albuterol Inhaler [Ventolin Hfa Inhaler] 2 puff INHALATION RT-Q6H PRN PRN Reason: Shortness Of Breath Metoprolol Tartrate [Lopressor] 25 mg PO BID Furosemide [Lasix] 40 mg PO BID Acetaminophen Tab [Tylenol] 650 mg PO Q6H PRN PRN Reason: Pain Ergocalciferol [Vitamin D2 (DRISDOL)] 1 cap PO Q14D Allopurinol [Zyloprim] 100 mg PO DAILY Insulin Detemir (Levemir) [Levemir] 18 unit SQ HS Discontinued Lisinopril 40 mg PO DAILY Discharge Medication List Carbidopa-Levodopa 25-100 mg [Sinemet 25-100 mg] 2 tab PO TID 07/08/16 [History] Levothyroxine Sodium [Synthroid] 100 mcg PO DAILY 05/27/19 [History] INSULIN ASPART (NovoLOG) [NovoLOG (formulary)] 5 unit SQ AC-TID #1 vial 05/30/19 [Rx] Albuterol Inhaler [Ventolin Hfa Inhaler] 2 puff INHALATION RT-Q6H PRN 06/16/19 [History] Furosemide [Lasix] 40 mg PO BID 06/16/19 [History] Metoprolol Tartrate [Lopressor] 25 mg PO BID 06/16/19 [History] Acetaminophen Tab [Tylenol] 650 mg PO Q6H PRN 08/31/19 [History] Allopurinol [Zyloprim] 100 mg PO DAILY 08/31/19 [History] Ergocalciferol [Vitamin D2 (DRISDOL)] 1 cap PO Q14D 08/31/19 [History] Insulin Detemir (Levemir) [Levemir] 18 unit SQ HS 08/31/19 [History] Apixaban [Eliquis] 5 mg PO BID #30 tab 09/05/19 [Rx] Linezolid [Zyvox] 600 mg PO Q12H #84 tab 09/19/19 [Rx] Bisacodyl [Dulcolax] 10 mg PO DAILY PRN tablet.dr 09/27/19 [Rx] amLODIPine [Norvasc] 10 mg PO DAILY tab 09/27/19 [Rx] Follow up Appointment(s)/Referral(s): [facility], [NON-STAFF] - As Needed Colby Hinson MD [STAFF PHYSICIAN] - 2 Weeks [facility] [Primary Care Provider] - 1-2 days Activity/Diet/Wound Care/Special Instructions: diet renal Activity as tolerated Follow-up with the nephrology and the infection disease as advised
--- NOTE | 2019-09-27 11:52 | P.PN ---
Subjective Patient is seen in follow-up for acute kidney injury on chronic kidney disease. Patient has chronic kidney disease stage III with baseline creatinine in the range of 1.1-1.3. Currently maintained on antibiotics for MRSA bacteremia. He is receiving normal saline at 75 mL an hour. He has been voiding. Oral intake is fair. Renal function stable. Creatinine 2.91 today. Feels tired today. Vital signs are stable. General: The patient appeared well nourished and normally developed. HEENT: Head exam is unremarkable. Neck is without jugular venous distension. LUNGS: Lungs are clear to auscultation and percussion. Breath sounds decreased. HEART: Rate and Rhythm are regular. First and second heart sounds normal. No murmurs, rubs or gallops. ABDOMEN: Abdominal exam reveals normal bowel sounds. Non-tender and non- distended. No evidence of peritonitis. EXTREMITITES: No clubbing, cyanosis, or edema. Chronic changes noted. Objective - Vital Signs Vital signs: Vital Signs Temp 97.9 F 09/27/19 07:07 Pulse 62 09/27/19 00:41 Resp 15 09/27/19 07:07 BP 145/68 09/27/19 07:07 Pulse Ox 99 09/27/19 07:07 Intake & Output 09/26/19 09/27/19 09/27/19 18:59 06:59 18:59 Intake Total 240 Output Total 250 Balance 240 -250 Weight 111.5 kg Intake: Oral 240 Output: Urine 250 Other: Voiding Method Urinal Diaper Incontinent # Voids 1 # Bowel Movements 1 - Labs CBC & Chem 7: 09/19/19 06:07 09/27/19 06:33 Labs: Abnormal Lab Results - Last 24 Hours (Table) 09/26/19 09/26/19 09/26/19 Range/Units 11:57 17:00 20:59 BUN (9-20) mg/dL Creatinine (0.66-1.25) mg/dL Glucose (74-99) mg/dL POC Glucose (mg/dL) 153 H 116 H 114 H (75-99) mg/dL 09/27/19 09/27/19 Range/Units 06:33 07:07 BUN 32 H (9-20) mg/dL Creatinine 2.91 H (0.66-1.25) mg/dL Glucose 118 H (74-99) mg/dL POC Glucose (mg/dL) 130 H (75-99) mg/dL Assessment and Plan Plan: Assessment: 1. Acute kidney injury secondary to ATN secondary to infection. Creatinine peaked at 3.36 this admission and is stable at 2.91 today. 2. Chronic kidney disease stage III with baseline creatinine in the range of 1.1-1.3. 3. MRSA bacteremia maintained on antibiotics. 4. Hypertension with chronic kidney disease. Controlled. 5. Insulin-dependent diabetes mellitus. Plan: Maintain normal saline at 75 mL an hour. Renal diet. Anticipate discharge to rehab soon. Check basic metabolic panel in 2-3 days postdischarge. Follow up outpatient in the next 1-2 weeks.
[2019-09-27 12:03] LABS: Glucose,Whole Blood 123 mg/dL (75-99)
== END 2019-09-27 14:14 | DRG 871 ==
LOC: EC 01:42 → 4SSUR 03:13 → OBSVTOIN 09-01 09:54
PROVIDERS: ADMIT Internal Medicine; ATTEND Internal Medicine
DX: A41.02 Sepsis due to Methicillin resistant Staphylococcus aureus (principal); N17.0 Acute kidney failure with tubular necrosis; E87.2 Acidosis; I13.0 Hypertensive heart and chronic kidney disease with heart failure and stage 1 through stage 4 chronic kidney disease, or unspecified chronic kidney disease; I42.9 Cardiomyopathy, unspecified; I48.92 Unspecified atrial flutter; Z16.24 Resistance to multiple antibiotics; N39.0 Urinary tract infection, site not specified; D63.1 Anemia in chronic kidney disease; E03.9 Hypothyroidism, unspecified; E11.22 Type 2 diabetes mellitus with diabetic chronic kidney disease; E11.42 Type 2 diabetes mellitus with diabetic polyneuropathy; E66.9 Obesity, unspecified; Z68.35 Body mass index [BMI] 35.0-35.9, adult; E86.0 Dehydration; E87.5 Hyperkalemia; E87.6 Hypokalemia; F40.240 Claustrophobia; G20 Parkinson's disease; G89.29 Other chronic pain; I25.2 Old myocardial infarction; I48.0 Paroxysmal atrial fibrillation; I50.9 Heart failure, unspecified; I51.3 Intracardiac thrombosis, not elsewhere classified; I87.2 Venous insufficiency (chronic) (peripheral); J44.9 Chronic obstructive pulmonary disease, unspecified; K59.00 Constipation, unspecified; N18.3 Chronic kidney disease, stage 3 (moderate); R09.02 Hypoxemia; R29.6 Repeated falls; R65.20 Severe sepsis without septic shock; Z79.01 Long term (current) use of anticoagulants; Z79.4 Long term (current) use of insulin; Z79.890 Hormone replacement therapy; Z79.899 Other long term (current) drug therapy; Z80.3 Family history of malignant neoplasm of breast; Z82.49 Family history of ischemic heart disease and other diseases of the circulatory system; Z85.51 Personal history of malignant neoplasm of bladder; Z86.14 Personal history of Methicillin resistant Staphylococcus aureus infection; Z87.01 Personal history of pneumonia (recurrent); Z87.440 Personal history of urinary (tract) infections; Z87.891 Personal history of nicotine dependence; Z88.6 Allergy status to analgesic agent; Z90.49 Acquired absence of other specified parts of digestive tract; E11.65 Type 2 diabetes mellitus with hyperglycemia
CPT/HCPCS: 36415; 36600; 70450; 71045; 71046; 76770; 80048; 80053; 80170; 80202; 81001; 82565; 82805; 83036; 83605; 83735; 84132; 84484; 85025; 85027; 85610; 85730; 87040; 87077; 87086; 87186; 87502; 93005; 93312; 93320; 93325; 94760; 96365; 99285

== ENCOUNTER 2019-10-13 16:04 | Inpatient (IN) | payer OTHER, MEDICARE ==
--- NOTE | 2019-10-13 16:54 | ED ---
General Adult HPI - General Chief complaint: Recheck/Abnormal Lab/Rx Stated complaint: ABN labs Time Seen by Provider: 10/13/19 16:20 Source: patient Mode of arrival: EMS Limitations: no limitations - History of Present Illness Initial comments: The patient is a 79-year-old male who resides at [facility] who presents emergency Department with abnormal labs. He has a history of bacteremia, urinary tract infections, diabetes mellitus and chronic kidney disease. He is currently on Zyvox for persistent bacteremia. Laboratory studies were performed today demonstrated an elevation of the patient's kidney function. Creatinine was reported to be 4. I reviewed the patient's laboratory studies and showed a creatinine of 2.9 on September 27. Patient denies any urinary retention, dysuria or hematuria. No fevers or chills. Denies any weakness. No chest pain or shortness of breath. Medication list demonstrates that he does take Lasix twice daily. Denies constipation or bloody stools. Does report to anal itching. No nausea or vomiting. Patient is a DO NOT RESUSCITATE but does agree to hospitalization in consultation for dialysis if deemed necessary. There are no alleviating, precipitating or modifying factors - Related Data Home Medications Medication Instructions Recorded Confirmed Carbidopa-Levodopa 25-100 mg 2 tab PO TID@0900,1300,2100 07/08/16 10/13/19 [Sinemet 25-100 mg] Levothyroxine Sodium [Synthroid] 100 mcg PO DAILY@0600 05/27/19 10/13/19 Albuterol Inhaler [Ventolin Hfa 2 puff INHALATION RT-Q6H PRN 06/16/19 10/13/19 Inhaler] Furosemide [Lasix] 40 mg PO BID@0600,1200 06/16/19 10/13/19 Metoprolol Tartrate [Lopressor] 25 mg PO BID@0900,2100 06/16/19 10/13/19 Acetaminophen Tab [Tylenol] 650 mg PO Q6H PRN 08/31/19 10/13/19 Allopurinol [Zyloprim] 100 mg PO DAILY@0900 08/31/19 10/13/19 Ergocalciferol [Vitamin D2 1 cap PO Q14D 08/31/19 10/13/19 (DRISDOL)] Apixaban [Eliquis] 5 mg PO BID@0900,2100 10/13/19/02/20 Ensure Clear 1 dose PO BID@0900,209910/13/19 10/13/19 Insulin Aspart [NovoLOG Flexpen] 5 units SQ TID@0800,1200,1700 10/13/19 10/13/19 Insulin Detemir [Levemir Flextouch] 18 units SQ HS@209910/13/19 10/13/19 Linezolid [Zyvox] 600 mg PO BID@0900,209910/13/19 10/13/19 amLODIPine [Norvasc] 5 mg PO DAILY@0900 10/13/19 10/13/19 Previous Rx's Medication Instructions Recorded Bisacodyl [Dulcolax] 10 mg PO DAILY PRN tablet. 09/27/19 Allergies Allergy/AdvReac Type Severity Reaction Status Date / Time aspirin Allergy Swelling Verified 10/13/19 19:11 NSAIDS (Non-Steroidal Allergy Swelling Verified 10/13/19 19:11 Anti-Inflamma Review of Systems ROS Statement: Those systems with pertinent positive or pertinent negative responses have been documented in the HPI. ROS Other: All systems not noted in ROS Statement are negative. Past Medical History Past Medical History: Atrial Flutter, Cancer, Heart Failure, COPD, Diabetes Mellitus, Hypertension, Musculoskeletal Disorder, Neurologic Disorder, Renal Disease, Thyroid Disorder Additional Past Medical History / Comment(s): PT ADMITTED ON 10/27/18 WITH BACTEREMIA D/T KLEBSIELLA PNE/TRANSAMINITIS/BILIARY SLUDGE PER US. OTHERHX: HX A-FLUTTER/TACHYCARDIA- TX W/ SAL/CARDIOVERSION, HAS BLADDER CA WITH SURGERY AND BLADDER INSTILLATION OF MED FOR BLADDER CANCER, IDC WITH UTI-REMOVED, IDDM TYPE II, BILATERAL CATARACTS, ABD HERNIA. PARKINSONS, DIVERTICULITIS, EDEMA FEET/LEGS, DDD lower spine, HYPOTHYROID, PNEUMONIA WITH SEPSIS, acute renal failure d/t acute tubular necrosis d/t sepsis, possible CKD. Last Myocardial Infarction Date:: UNK History of Any Multi-Drug Resistant Organisms: MRSA Date of last positivie culture/infection: 09/13/19 MDRO Source:: Blood Past Surgical History: Adenoidectomy, Bladder Surgery, Cholecystectomy, Tonsillectomy Additional Past Surgical History / Comment(s): 2013 CARDIOVERSION, SAL. BLADDER TUMOR REMOVED,cystoscopy with bladder CA TREATMENTS, colonoscopy Past Anesthesia/Blood Transfusion Reactions: Previous Problems w/ Anesthesia Additional Past Anesthesia/Blood Transfusion Reaction / Comment(s): HX CLAUSTROPHOBIA Past Psychological History: Anxiety Smoking Status: Former smoker Past Alcohol Use History: None Reported Past Drug Use History: None Reported - Past Family History Father Family Medical History: Cancer Additional Family Medical History / Comment(s): Bone cancer. Mother Family Medical History: Coronary Artery Disease (CAD) Additional Family Medical History / Comment(s): Macular degeneration Sister(s) Family Medical History: Cancer Additional Family Medical History / Comment(s): breast CA General Exam Limitations: no limitations General appearance: alert, in no apparent distress Head exam: Present: atraumatic, normocephalic Eye exam: Present: PERRL, EOMI ENT exam: Present: normal exam, normal oropharynx Neck exam: Present: normal inspection Respiratory exam: Present: normal lung sounds bilaterally. Absent: respiratory distress, wheezes, rales, rhonchi Cardiovascular Exam: Present: regular rate, normal rhythm GI/Abdominal exam: Present: soft. Absent: distended, tenderness Extremities exam: Present: pedal edema, other (bilateral lower extremity brawny edema) Back exam: Present: other (coccyx wound - stage 2) Neurological exam: Present: alert, CN II-XII intact Psychiatric exam: Present: normal affect, normal mood Skin exam: Present: warm, dry Course Vital Signs 10/13/19 10/13/19 16:22 19:45 Temperature 97.6 F 98 F Pulse Rate 63 71 Respiratory 16 14 Rate Blood Pressure 123/64 106/63 O2 Sat by Pulse 99 95 Oximetry EKG Findings - EKG Comments: EKG Findings:: EKG demonstrates normal sinus rhythm with a ventricular rate of 64. PA interval 188. QRS 100. QTC of 455. No acute ST segment elevations. No peak T waves. There is widening of the QRS complex in V2 and V3 which is compared patient's previous and is similar. Medical Decision Making - Medical Decision Making Upon arrival the patient is placed in room 2. A thorough history and physical exam was performed. Patient is hooked to continuous pulse ox and cardiac monitoring. Peripheral IV was established. I recommended repeating laboratory studies. A 12-lead EKG was performed. Laboratory studies were conducted. Results demonstrate a hemoglobin of 9.7. Potassium is 6.1. Creatinine 4.8. I discussed results of the patient. I did provide him with 10 units of insulin and an amp of dextrose. His potassium be repeated in 4 hours. I requested a UA from the patient. I'm currently awaiting these results. I recommended hospital admission for which the patient did agree. He was previously established with the [facility] and therefore he'll be admitted to [facility]. I called and discussed the case with Dr. Paul who accepted the admission. Patient was transported to floor in stable condition - Lab Data Result diagrams: 10/16/19 06:17 10/18/19 05:34 Lab Results 10/13/19 10/13/19 10/13/19 Range/Units 16:49 16:49 16:49 WBC 9.0 (3.8-10.6) k/uL RBC 3.26 L (4.30-5.90) m/uL Hgb 9.7 L (13.0-17.5) gm/dL Hct 29.5 L (39.0-53.0) % MCV 90.4 (80.0-100.0) fL MCH 29.9 (25.0-35.0) pg MCHC 33.1 (31.0-37.0) g/dL RDW 14.4 (11.5-15.5) % Plt Count 164 (150-450) k/uL Neutrophils % 75 % Lymphocytes % 15 % Monocytes % 7 % Eosinophils % 1 % Basophils % 0 % Neutrophils # 6.7 (1.3-7.7) k/uL Lymphocytes # 1.4 (1.0-4.8) k/uL Monocytes # 0.6 (0-1.0) k/uL Eosinophils # 0.1 (0-0.7) k/uL Basophils # 0.0 (0-0.2) k/uL Sodium 138 (137-145) mmol/L Potassium 6.1 H* (3.5-5.1) mmol/L Chloride 104 (98-107) mmol/L Carbon Dioxide 23 (22-30) mmol/L Anion Gap 11 mmol/L BUN 92 H (9-20) mg/dL Creatinine 4.80 H (0.66-1.25) mg/dL Est GFR (CKD-EPI)AfAm 12 (>60 ml/min/1.73 sqM) Est GFR (CKD-EPI)NonAf 11 (>60 ml/min/1.73 sqM) Glucose 111 H (74-99) mg/dL POC Glucose (mg/dL) (75-99) mg/dL POC Glu Community Midwife ID Plasma Lactic Acid Riley 1.8 (0.7-2.0) mmol/L Calcium 9.3 (8.4-10.2) mg/dL Total Bilirubin 0.6 (0.2-1.3) mg/dL AST 18 (17-59) U/L ALT <6 (4-49) U/L Alkaline Phosphatase 96 (38-126) U/L Creatine Kinase 64 (55-170) U/L Total Protein 6.9 (6.3-8.2) g/dL Albumin 3.6 (3.5-5.0) g/dL TSH 2.950 (0.465-4.680) mIU/L 10/13/19 Range/Units 19:17 WBC (3.8-10.6) k/uL RBC (4.30-5.90) m/uL Hgb (13.0-17.5) gm/dL Hct (39.0-53.0) % MCV (80.0-100.0) fL MCH (25.0-35.0) pg MCHC (31.0-37.0) g/dL RDW (11.5-15.5) % Plt Count (150-450) k/uL Neutrophils % % Lymphocytes % % Monocytes % % Eosinophils % % Basophils % % Neutrophils # (1.3-7.7) k/uL Lymphocytes # (1.0-4.8) k/uL Monocytes # (0-1.0) k/uL Eosinophils # (0-0.7) k/uL Basophils # (0-0.2) k/uL Sodium (137-145) mmol/L Potassium (3.5-5.1) mmol/L Chloride (98-107) mmol/L Carbon Dioxide (22-30) mmol/L Anion Gap mmol/L BUN (9-20) mg/dL Creatinine (0.66-1.25) mg/dL Est GFR (CKD-EPI)AfAm (>60 ml/min/1.73 sqM) Est GFR (CKD-EPI)NonAf (>60 ml/min/1.73 sqM) Glucose (74-99) mg/dL POC Glucose (mg/dL) 125 H (75-99) mg/dL POC Glu Community Midwife ID Elvira Yanez Plasma Lactic Acid Riley (0.7-2.0) mmol/L Calcium (8.4-10.2) mg/dL Total Bilirubin (0.2-1.3) mg/dL AST (17-59) U/L ALT (4-49) U/L Alkaline Phosphatase (38-126) U/L Creatine Kinase (55-170) U/L Total Protein (6.3-8.2) g/dL Albumin (3.5-5.0) g/dL TSH (0.465-4.680) mIU/L Disposition Clinical Impression: GOSIA (acute kidney injury), Chronic kidney disease, Hyperkalemia Disposition: ADMITTED IP TO THIS [facility] Condition: Serious Is patient prescribed a controlled substance at d/c from ED?: No Decision to Admit Reason: Admit from EC Decision Date: 10/13/19 Decision Time: 19:29
[2019-10-13 17:11] LABS: Basophils % (A) 0 %; Eosinophils # (A) 0.1 k/uL (0-0.7); Eosinophils % (A) 1 %; HCT 29.5 % (39.0-53.0); HGB 9.7 gm/dL (13.0-17.5); Lymphocytes # (A) 1.4 k/uL (1.0-4.8); Lymphocytes % (A) 15 %; MCH 29.9 pg (25.0-35.0); MCHC 33.1 g/dL (31.0-37.0); MCV 90.4 fL (80.0-100.0); Mean Platelet Volume 8.9; Monocytes # (A) 0.6 k/uL (0-1.0); Monocytes % (A) 7 %; Neutrophils # (A) 6.7 k/uL (1.3-7.7); Neutrophils % (A) 75 %; Platelet Count 164 k/uL (150-450); RBC 3.26 m/uL (4.30-5.90); RDW 14.4 % (11.5-15.5)
[2019-10-13 17:15] LABS: ALT <6 U/L (4-49); AST 18 U/L (17-59); African American GFR (CKD) 12 (>60 ml/min/1.73 sqM); Albumin 3.6 g/dL (3.5-5.0); Alkaline Phosphatase 96 U/L (38-126); Anion Gap 11 mmol/L; Blood Urea Nitrogen 92 mg/dL (9-20); Calcium 9.3 mg/dL (8.4-10.2); Carbon Dioxide 23 mmol/L (22-30); Chloride 104 mmol/L (98-107); Creatine Kinase 64 U/L (55-170); Glucose 111 mg/dL (74-99); Non-African American GFR(CKD) 11 (>60 ml/min/1.73 sqM); Sodium 138 mmol/L (137-145); Total Bilirubin 0.6 mg/dL (0.2-1.3); Total Protein 6.9 g/dL (6.3-8.2)
[2019-10-13 17:39] LABS: Potassium 6.1 mmol/L (3.5-5.1)
[2019-10-13] MEDS ORDERED: DEXTROSE 50% SYRINGE 50 ML IVP STA (17:43)
[2019-10-13] MEDS ORDERED: SODIUM CHLORIDE 0.9% 500 ML 500 ML IV ONE (17:43)
[2019-10-13] MEDS ORDERED: INSULIN REGULAR 100 UNIT/ML VIAL IV ONE (17:43)
[2019-10-13 19:18] LABS: Glucose,Whole Blood 125 mg/dL (75-99)
[2019-10-13] MEDS ORDERED: NALOXONE 0.4 MG/ML 1 ML VIAL IV PRN (19:29)
[2019-10-13] MEDS ORDERED: ALBUTEROL NEBULIZED 2.5 MG/3 ML INHALATION PRN (19:31)
[2019-10-13 20:45] LABS: Glucose,Whole Blood 74 mg/dL (75-99)
[2019-10-13] MEDS: SODIUM CHLORIDE 0.9% 1,000 ML IV SCH (21:00)
[2019-10-13 21:20] LABS: Glucose,Whole Blood 87 mg/dL (75-99)
[2019-10-13] MEDS ORDERED: BISACODYL 5 MG TABLET.DR PO PRN (22:30)
--- NOTE | 2019-10-13 22:31 | XR ---
EXAMINATION TYPE: XR chest 1V portable DATE OF EXAM: 10/13/2019 COMPARISON: 09/06/2019 HISTORY: Short of breath Heart appears enlarged. There is mild pulmonary congestion. There are chest leads. There is poor insp iration. IMPRESSION: Inspiration is decreased compared to last exam. Mild heart failure is possible.
[2019-10-14] MEDS: INSULIN DETEMIR (LEVEMIR) 100 UNIT/ML SYR SQ SCH ×2 (01:05→20:57)
[2019-10-14] MEDS: LINEZOLID 600 MG TAB PO SCH ×3 (01:05→20:53)
[2019-10-14] MEDS: APIXABAN 5 MG TAB PO SCH ×3 (01:05→20:52)
[2019-10-14] MEDS: CARBIDOPA-LEVODOPA 25-100 MG 1 EACH TAB PO SCH ×5 (01:05→20:52)
[2019-10-14] MEDS: METOPROLOL TARTRATE 25 MG TAB PO SCH ×3 (01:06→20:52)
[2019-10-14] MEDS: LEVOTHYROXINE 100 MCG TAB PO SCH (06:33)
--- NOTE | 2019-10-14 07:47 | HP ---
HISTORY AND PHYSICAL DATE OF SERVICE: 10/13/2019 CHIEF COMPLAINTS: Abnormal labs. HISTORY OF PRESENT ILLNESS: This 79-year-old gentleman with a past medical history of multiple medical problems including history of diabetes type 2, history of hypertension, Parkinson's, COPD, chronic kidney disease, being followed by [facility], Dr. Issa, in the outpatient setting was recently admitted with UTI with severe sepsis and MRSA sepsis. The patient was started on IV antibiotics. Patient was sent to rehab [facility]. Apparently at [facility], the patient had change in mental status, which is fluctuating and the patient is on Zyvox for persistent bacteremia. The creatinine is around baseline at 2.9, but the most recent creatinine and potassium were elevated and patient was seen at [facility] and admitted for further evaluation and treatment. Patient is confused, unable to give coherent history and most of the history was taken from my discussion with staff and review of chart at this time. Potassium 6.1, creatinine is 4.8. The patient appears to be dehydrated. There is no history of any fever or rigors. No history of headache, loss of consciousness, seizures. PAST MEDICAL HISTORY: History of recent MRSA sepsis, history atrial flutter, history of CHF, COPD, diabetes, hypertension, DJD. MEDICATIONS: Medications prior to admission home medications are: 1. Norvasc 5 mg p.o. daily. 2. Lopressor 25 mg p.o. b.i.d. 3. Zyvox 600 mg p.o. b.i.d. 4. Synthroid 100 mcg p.o. daily. 5. Levemir 18 units subcu at bedtime. 6. NovoLog 5 units t.i.d. 7. Lasix 40 mg b.i.d. 8. Vitamin D2, one p.o. q.14 days. 9. Ensure. 10.Carbidopa Levodopa 2 tablets p.o. t.i.d. 11.Dulcolax 10 mg daily. 12.Eliquis 5 mg p.o. b.i.d. 13.Zyloprim 100 mg p.o. daily. 14.Ventolin 2 puffs q.6. 15.Tylenol 650 q.6 p.r.n. ALLERGIES: ASPIRIN and NSAIDs. FAMILY HISTORY, SOCIAL HISTORY AND REVIEW OF SYSTEMS: Could not be taken because of the patient's change in mental status. Per chart, bone cancer in the family and social history previous history of smoking. PHYSICAL EXAMINATION: Patient is conscious, confused. Pulse 71, blood pressure 106/63, respiration 14, temperature 98 degrees, pulse ox 95% on room air. HEENT: Conjunctivae normal. Oral mucosa dry. NECK: No jugular venous distention. No carotid bruit. No lymph node enlargement. CARDIOVASCULAR: S1, S2 muffled. Ejection systolic murmur. RESPIRATORY: Breath sounds diminished at the bases. A few scattered rhonchi. ABDOMEN: Soft, nontender. LEGS: No edema, no swelling. NERVOUS SYSTEM: Diffusely weak. EXAMINATION OF THE RIGHT FOREARM: Some infection also present. LABS: WBC 9, hemoglobin 9.7. Sodium 138, potassium 6.1, creatinine 4.80. ASSESSMENT: 1. Severe hyperkalemia secondary to acute renal failure with possible acute tubular necrosis and prerenal factors. 2. Chronic kidney disease stage 3. 3. History of recent urinary tract infection with sepsis and methicillin-resistant Staphylococcus aureus sepsis. 4. Extensive venous stasis dermatitis. 5. Gait dysfunction. 6. Change in mental status, metabolic encephalopathy, acute. 7. Diabetes mellitus type 2. 8. Hypertension. 9. Parkinson's. 10.Chronic obstructive pulmonary disease. 11.Peripheral neuropathy, diabetic. 12.Degenerative joint disease. 13.History of hypothyroidism. 14.History of atrial flutter. 15.History of hypothyroidism. 16.History of adenoidectomy. 17.Remote history of nicotine dependence. 18.History of claustrophobia. 19.History of bladder tumor removal with bladder cancer. 20.History of anxiety. 21.NO CODE, NO CPR, NO VENT. RECOMMENDATIONS AND DISCUSSION: This 79-year-old gentleman who presented with multiple complex medical issues, we will monitor the patient closely. Continue the current medications. Continue symptomatic treatment. I would recommend continue the IV antibiotics, otherwise, Kayexalate, insulin glucose regimen. We will consult Nephrology and Infectious Disease. Prognosis guarded because of multiple complex medical issues. Further recommendations to follow. A copy of dictation forwarded to Dr. Issa who is the primary physician. MMEROSL / KIRTIN: [id number] /
[2019-10-14 07:53] LABS: Basophils % (A) 0 %; Eosinophils # (A) 0.2 k/uL (0-0.7); Eosinophils % (A) 2 %; HCT 27.7 % (39.0-53.0); HGB 8.8 gm/dL (13.0-17.5); Lymphocytes # (A) 1.7 k/uL (1.0-4.8); Lymphocytes % (A) 23 %; MCH 29.3 pg (25.0-35.0); MCHC 31.9 g/dL (31.0-37.0); Mean Platelet Volume 9.1; Monocytes # (A) 0.5 k/uL (0-1.0); Monocytes % (A) 7 %; Neutrophils % (A) 67 %; Platelet Count 143 k/uL (150-450); RBC 3.01 m/uL (4.30-5.90); RDW 14.3 % (11.5-15.5); WBC 7.5 k/uL (3.8-10.6)
[2019-10-14 07:57] LABS: Calcium 8.6 mg/dL (8.4-10.2); Potassium 5.3 mmol/L (3.5-5.1)
[2019-10-14 08:02] LABS: Glucose,Whole Blood 142 mg/dL (75-99)
[2019-10-14 08:03] LABS: Potassium 5.5 mmol/L (3.5-5.1)
[2019-10-14] MEDS: SODIUM CHLORIDE 0.9% 1,000 ML IV SCH ×2 (08:52→17:00)
[2019-10-14] MEDS: ALLOPURINOL 100 MG TAB PO SCH (08:59)
[2019-10-14] MEDS ORDERED: ENSURE CLEAR PO SCH (09:00)
[2019-10-14] MEDS: INSULIN ASPART (NovoLOG) 100 UNIT/ML VIAL SQ SCH ×3 (09:00→17:02)
--- NOTE | 2019-10-14 11:33 | P.NPCON ---
History of Present Illness - Reason for Consult acute renal failure, chronic renal failure - History of Present Illness Reason for consultation: Acute kidney injury on chronic kidney disease History of present illness: Patient is a 79-year-old male seen in consultation for acute kidney injury on chronic kidney disease. Patient has chronic kidney disease stage III with baseline creatinine near 1.3 as of August 2019. Patient was noted to have MRSA bacteremia and had a lengthy admission and was discharged last month. He is receiving Zyvox. Patient resides at an extended care facility and was sent to the hospital due to abnormal labs. He was noted to be in acute kidney injury with creatinine over 4. Patient's currently resting in bed. He is quite lethargic. Does not respond to verbal commands. He was maintained on oral diuretics at home which are currently held. He is receiving normal saline at 75 mL an hour. He has been voiding. Potassium level was 6.1 on admission and was 5.5 this morning. Patient's blood pressure has been on the lower side. He was in the systolic 70s yesterday and most recent blood pressure was 102/39 as of this morning. He does have history of diabetes mellitus. Creatinine was 4.8 on admission and is 4.22 today. Vital signs are stable. General: The patient appeared well nourished and normally developed. HEENT: Head exam is unremarkable. Neck is without jugular venous distension. LUNGS: Breath sounds decreased. HEART: Rate and Rhythm are regular. First and second heart sounds normal. No murmurs, rubs or gallops. ABDOMEN: Abdominal exam reveals normal bowel sounds. EXTREMITITES: Trace edema. Past Medical History Past Medical History: Atrial Flutter, Cancer, Heart Failure, COPD, Diabetes Mellitus, Hypertension, Musculoskeletal Disorder, Neurologic Disorder, Renal Disease, Thyroid Disorder Additional Past Medical History / Comment(s): PT ADMITTED ON 10/27/18 WITH BACTEREMIA D/T KLEBSIELLA PNE/TRANSAMINITIS/BILIARY SLUDGE PER US. OTHERHX: HX A-FLUTTER/TACHYCARDIA- TX W/ SAL/CARDIOVERSION, HAS BLADDER CA WITH SURGERY AND BLADDER INSTILLATION OF MED FOR BLADDER CANCER, IDC WITH UTI-REMOVED, IDDM TYPE II, BILATERAL CATARACTS, ABD HERNIA. PARKINSONS, DIVERTICULITIS, EDEMA FEET/LEGS, DDD lower spine, HYPOTHYROID, PNEUMONIA WITH SEPSIS, acute renal failure d/t acute tubular necrosis d/t sepsis, possible CKD. Last Myocardial Infarction Date:: UNK History of Any Multi-Drug Resistant Organisms: MRSA Date of last positivie culture/infection: 09/13/19 MDRO Source:: Blood Past Surgical History: Adenoidectomy, Bladder Surgery, Cholecystectomy, Tonsillectomy Additional Past Surgical History / Comment(s): 2013 CARDIOVERSION, SAL. BLADDER TUMOR REMOVED,cystoscopy with bladder CA TREATMENTS, colonoscopy Past Anesthesia/Blood Transfusion Reactions: Previous Problems w/ Anesthesia Additional Past Anesthesia/Blood Transfusion Reaction / Comment(s): HX CLAUSTROPHOBIA Past Psychological History: Anxiety Smoking Status: Former smoker Past Alcohol Use History: None Reported Past Drug Use History: None Reported - Past Family History Father Family Medical History: Cancer Additional Family Medical History / Comment(s): Bone cancer. Mother Family Medical History: Coronary Artery Disease (CAD) Additional Family Medical History / Comment(s): Macular degeneration Sister(s) Family Medical History: Cancer Additional Family Medical History / Comment(s): breast CA Medications and Allergies Home Medications Medication Instructions Recorded Confirmed Type Carbidopa-Levodopa 25-100 mg 2 tab PO TID@0900,1300,2100 07/08/16 10/13/19 History [Sinemet 25-100 mg] Levothyroxine Sodium [Synthroid] 100 mcg PO DAILY@0600 05/27/19 10/13/19 History Albuterol Inhaler [Ventolin Hfa 2 puff INHALATION RT-Q6H PRN 06/16/19 10/13/19 History Inhaler] Furosemide [Lasix] 40 mg PO BID@0600,1200 06/16/19 10/13/19 History Metoprolol Tartrate [Lopressor] 25 mg PO BID@0900,2100 06/16/19 10/13/19 History Acetaminophen Tab [Tylenol] 650 mg PO Q6H PRN 08/31/19 10/13/19 History Allopurinol [Zyloprim] 100 mg PO DAILY@0900 08/31/19 10/13/19 History Ergocalciferol [Vitamin D2 1 cap PO Q14D 08/31/19 10/13/19 History (RICHAR)] Bisacodyl [Dulcolax] 10 mg PO DAILY PRN tablet. 09/27/19 10/13/19 Rx Apixaban [Eliquis] 5 mg PO BID@0900,2100 10/13/19 10/13/19 History Ensure Clear 1 dose PO BID@0900,209910/13/19 10/13/19 History Insulin Aspart [NovoLOG Flexpen] 5 units SQ TID@0800,1200,1700 10/13/19 10/13/19 History Insulin Detemir [Levemir Flextouch] 18 units SQ HS@209910/13/19 10/13/19 History Linezolid [Zyvox] 600 mg PO BID@0900,209910/13/19 10/13/19 History amLODIPine [Norvasc] 5 mg PO DAILY@0900 10/13/19 10/13/19 History Allergies Allergy/AdvReac Type Severity Reaction Status Date / Time aspirin Allergy Swelling Verified 10/13/19 19:11 NSAIDS (Non-Steroidal Allergy Swelling Verified 10/13/19 19:11 Anti-Inflamma Physical Exam Vitals: Vital Signs Temp Pulse Pulse Resp BP BP Pulse Ox 10/14/19 08:00 99.2 F 82 20 102/39 95 10/14/19 04:00 98.3 F 76 16 100/48 92 L 10/14/19 00:35 16 10/13/19 21:43 88/46 10/13/19 20:55 80/36 10/13/19 20:47 71/42 10/13/19 20:45 98.0 F 69 16 82/36 95 10/13/19 20:30 14 10/13/19 19:45 98 F 71 14 106/63 95 10/13/19 16:22 97.6 F 63 16 123/64 99 Intake and Output 10/13/19 10/14/19 10/14/19 22:59 06:59 14:59 Intake Total 118 Output Total 300 Balance -300 118 Intake: Oral 118 Output: Urine 300 Other: Voiding Method Urinal Urinal Diaper Diaper Diaper # Voids 1 Weight 103.419 kg Results - Lab Results Most recent lab results Calcium 8.6 mg/dL (8.4-10.2) 10/14/19 06:10 10/14/19 06:10 10/14/19 06:10 Assessment and Plan Plan: Assessment: 1. Acute kidney injury mostly prerenal secondary to hypotension and diuresis. Creatinine was 4.8 on admission and is 4.22 today. Rule out urinary retention. 2. Chronic kidney disease stage III with baseline creatinine near 1.2-1.3 as of August 2019. 3. MRSA bacteremia maintained on antibiotics. 4. Hyperkalemia secondary to acute kidney injury. Better. 5. Insulin-dependent diabetes mellitus. 6. Anemia of chronic kidney disease. Rule out iron deficiency. Plan: Maintain normal saline at 75 mL an hour. Hold diuretics. Hold antihypertensives for systolic blood pressure less than 120. Low potassium diet. Check bladder scan to rule out urinary retention. Check iron studies. Add Aranesp. Check potassium level this evening. Thank you for the consultation. I will continue to follow the patient with you during his hospital stay.
[2019-10-14] MEDS: amLODIPine 5 MG TAB PO SCH (11:34)
[2019-10-14 12:00] LABS: Glucose,Whole Blood 93 mg/dL (75-99)
[2019-10-14] MEDS ORDERED: DARBEPOETIN ALFA 40 MCG/0.4 ML SYRINGE SQ SCH (12:00)
[2019-10-14 14:36] LABS: Appearance,Urine Cloudy (Clear); Bacteria,Urine Occasional /hpf; Bilirubin,Urine Negative (Negative); Blood,Urine Small (Negative); Budding Yeast,Urine Few /hpf; Color,Urine Light Yellow; Glucose,Urine (UA) Negative (Negative); Hyaline Casts,Urine 1 /lpf (0-2); Ketones,Urine Negative (Negative); Leukocyte Esterase,Urine Large (Negative); Mucus,Urine Rare /hpf; Nitrite,Urine Negative (Negative); Protein,Urine Trace (Negative); RBC,Urine 9 /hpf (0-5); Specific Gravity,Urine 1.012 (1.001-1.035); Urobilinogen,Urine <2.0 mg/dL (<2.0); WBC,Urine 106 /hpf (0-5)
[2019-10-14 16:37] LABS: Glucose,Whole Blood 113 mg/dL (75-99)
--- NOTE | 2019-10-14 16:38 | P.PN ---
Subjective Progress Note Date: 10/14/19 Principal diagnosis: This is a 71-year-old male who was recently admitted for change in mental status, acute renal failure, elevated potassium and is being closely monitored. Patient appears to be dehydrated. Patient is quite lethargic but is arousable. Patient has been refusing to eat and drink just likes to sleep. Patient was recently at [facility] [place] [facility] continued rehab along with oral Zyvox for persistent bacteremia. Creatinine today showed some slight improvement in is 4.22. nephrology is following. Patient will continue on IV normal saline at 75 ML per hour. Review of Systems: Cardiovascular: No reports of chest pain or palpitations Respiratory: No reports of shortness of breath or cough GI: No reports of nausea, vomiting, or diarrhea : No reports of dysuria or retention Active Medications Acetaminophen (Tylenol Tab) 650 mg PO Q6H PRN PRN Reason: Pain Albuterol Sulfate (Ventolin Nebulized) 2.5 mg INHALATION RT-Q6H PRN PRN Reason: Shortness Of Breath Allopurinol (Zyloprim) 100 mg PO DAILY@0900 [facility] Last Admin: 10/14/19 08:59 Dose: 100 mg Documented by: Amlodipine Besylate (Norvasc) 5 mg PO DAILY@0900 [facility] Last Admin: 10/14/19 11:34 Dose: Not Given Documented by: Apixaban (Eliquis) 5 mg PO BID@0900,2100 [facility] Last Admin: 10/14/19 09:00 Dose: 5 mg Documented by: Bisacodyl (Dulcolax) 10 mg PO DAILY PRN PRN Reason: Constipation Carbidopa/Levodopa (Sinemet 25-100) 2 each PO TID@0900,1300,2100 [facility] Last Admin: 10/14/19 14:33 Dose: Not Given Documented by: Darbepoetin Eric (Aranesp) 40 mcg SQ Q7D [facility] Last Admin: 10/14/19 12:35 Dose: 40 mcg Documented by: Sodium Chloride (Saline 0.9%) 1,000 mls @ 75 mls/hr IV .[id number] [facility] Last Admin: 10/14/19 08:52 Dose: 75 mls/hr Documented by: Insulin Aspart (Novolog) 5 unit SQ TID@0800,1200,1700 [facility] Last Admin: 10/14/19 12:00 Dose: Not Given Documented by: Insulin Detemir (Levemir) 18 unit SQ HS@2099 [facility] Last Admin: 10/14/19 01:05 Dose: Not Given Documented by: Levothyroxine Sodium (Synthroid) 100 mcg PO DAILY@0600 [facility] Last Admin: 10/14/19 06:33 Dose: 100 mcg Documented by: Linezolid (Zyvox) 600 mg PO BID@09,2099 [facility] Last Admin: 10/14/19 08:59 Dose: 600 mg Documented by: Metoprolol Tartrate (Lopressor) 25 mg PO BID@0900,2099 [facility] Last Admin: 10/14/19 11:34 Dose: Not Given Documented by: Naloxone HCl (Narcan) 0.2 mg IV Q2M PRN PRN Reason: Opioid Reversal Objective - Vital Signs Vital signs: Vital Signs Temp 98.5 F 10/14/19 16:00 Pulse 74 10/14/19 16:00 Resp 18 10/14/19 16:00 BP 109/56 10/14/19 16:00 Pulse Ox 95 10/14/19 16:00 Intake & Output 10/13/19 10/14/19 10/14/19 18:59 06:59 18:59 Intake Total 118 Output Total 300 Balance -300 118 Weight 103.419 kg 103.419 kg 103.419 kg Intake: Oral 118 Output: Urine 300 Other: Voiding Method Urinal Diaper Diaper # Voids 1 2 - Exam Gen: This is a 79-year-old male lying in bed sleeping but arousable. HEENT: Head is atraumatic, normocephalic. Pupils equal, round. Sclerae is anicteric. Mucous membranes are dry NECK: Supple. No JVD. No lymphadenopathy. No thyromegaly. LUNGS: Clear to auscultation. No wheezes or rhonchi. No intercostal retractions. HEART: S1, S2 are muffled with an ejection systolic murmur noted. ABDOMEN: Soft. Obese. Bowel sounds are present. No masses. No tenderness. EXTREMITIES: No pedal edema. No calf tenderness. NEUROLOGICAL: Patient is asleep but arousable, alert and oriented x1-2. Diffuse weakness noted - Labs CBC & Chem 7: 10/14/19 06:10 10/14/19 06:10 Labs: Abnormal Lab Results - Last 24 Hours (Table) 10/13/19 10/13/19 10/13/19 Range/Units 16:49 16:49 19:17 RBC 3.26 L (4.30-5.90) m/uL Hgb 9.7 L (13.0-17.5) gm/dL Hct 29.5 L (39.0-53.0) % Plt Count (150-450) k/uL Potassium 6.1 H* (3.5-5.1) mmol/L Chloride (98-107) mmol/L BUN 92 H (9-20) mg/dL Creatinine 4.80 H (0.66-1.25) mg/dL Glucose 111 H (74-99) mg/dL POC Glucose (mg/dL) 125 H (75-99) mg/dL Urine Protein (Negative) Urine Blood (Negative) Ur Leukocyte Esterase (Negative) Urine RBC (0-5) /hpf Urine WBC (0-5) /hpf Urine Bacteria (None) /hpf Urine Mucus (None) /hpf Urine Yeast (Budding) (None) /hpf 10/13/19 10/14/19 10/14/19 Range/Units 20:34 01:25 06:10 RBC 3.01 L (4.30-5.90) m/uL Hgb 8.8 L (13.0-17.5) gm/dL Hct 27.7 L (39.0-53.0) % Plt Count 143 L (150-450) k/uL Potassium 5.2 H (3.5-5.1) mmol/L Chloride (98-107) mmol/L BUN (9-20) mg/dL Creatinine (0.66-1.25) mg/dL Glucose (74-99) mg/dL POC Glucose (mg/dL) 74 L (75-99) mg/dL Urine Protein (Negative) Urine Blood (Negative) Ur Leukocyte Esterase (Negative) Urine RBC (0-5) /hpf Urine WBC (0-5) /hpf Urine Bacteria (None) /hpf Urine Mucus (None) /hpf Urine Yeast (Budding) (None) /hpf 10/14/19 10/14/19 10/14/19 Range/Units 06:10 06:10 08:00 RBC (4.30-5.90) m/uL Hgb (13.0-17.5) gm/dL Hct (39.0-53.0) % Plt Count (150-450) k/uL Potassium 5.3 H 5.5 H (3.5-5.1) mmol/L Chloride 108 H 108 H (98-107) mmol/L BUN 81 H (9-20) mg/dL Creatinine 4.22 H (0.66-1.25) mg/dL Glucose (74-99) mg/dL POC Glucose (mg/dL) 142 H (75-99) mg/dL Urine Protein (Negative) Urine Blood (Negative) Ur Leukocyte Esterase (Negative) Urine RBC (0-5) /hpf Urine WBC (0-5) /hpf Urine Bacteria (None) /hpf Urine Mucus (None) /hpf Urine Yeast (Budding) (None) /hpf 10/14/19 Range/Units 14:00 RBC (4.30-5.90) m/uL Hgb (13.0-17.5) gm/dL Hct (39.0-53.0) % Plt Count (150-450) k/uL Potassium (3.5-5.1) mmol/L Chloride (98-107) mmol/L BUN (9-20) mg/dL Creatinine (0.66-1.25) mg/dL Glucose (74-99) mg/dL POC Glucose (mg/dL) (75-99) mg/dL Urine Protein Trace H (Negative) Urine Blood Small H (Negative) Ur Leukocyte Esterase Large H (Negative) Urine RBC 9 H (0-5) /hpf Urine WBC 106 H (0-5) /hpf Urine Bacteria Occasional H (None) /hpf Urine Mucus Rare H (None) /hpf Urine Yeast (Budding) Few H (None) /hpf Assessment and Plan Assessment: Severe hyperkalemia secondary to acute renal failure with possible acute tubular necrosis and prerenal factors Chronic kidney disease stage III History of recent urinary tract infection with sepsis and MRSA sepsis Extensive venous stasis dermatitis Gait dysfunction Change in mental status, metabolic encephalopathy, acute Diabetes mellitus type 2 Hypertension Parkinson's COPD Peripheral neuropathy, diabetic Degenerative joint disease History of hypothyroidism history of atrial flutter History of adenoidectomy History of claustrophobia Mode history of nicotine dependence History of bladder tumor removal with bladder cancer history of anxiety No code, no CPR, no vent Recommendations and discussion: Recommend to continue current medications, management, and symptomatic tr eatment. Nephrology is following. Will continue with IV normal saline at 75 ML per hour and will monitor vital signs and labs closely. Will repeat a.m. labs. Will continue to encourage oral intake and maintain low potassium diet. Due to multiple complex medical issues prognosis is guarded. Further recommendations to follow.
[2019-10-14 17:48] LABS: % Iron Saturation 39.57 (15.00-50.00); Ferritin 621.1 ng/mL (22.0-322.0)
[2019-10-14 20:26] LABS: Glucose,Whole Blood 89 mg/dL (75-99)
[2019-10-14] MEDS: ACETAMINOPHEN TAB 325 MG TAB PO PRN (20:51)
[2019-10-15 06:31] LABS: Glucose,Whole Blood 107 mg/dL (75-99)
[2019-10-15] MEDS: INSULIN ASPART (NovoLOG) 100 UNIT/ML VIAL SQ SCH ×4 (06:31→20:03)
[2019-10-15 06:32] LABS: Basophils # (A) 0.1 k/uL (0-0.2); Basophils % (A) 1 %; Eosinophils # (A) 0.2 k/uL (0-0.7); Eosinophils % (A) 3 %; HCT 27.4 % (39.0-53.0); HGB 8.8 gm/dL (13.0-17.5); Hypochromasia Slight; Lymphocytes # (A) 1.8 k/uL (1.0-4.8); Lymphocytes % (A) 24 %; MCV 93.8 fL (80.0-100.0); Mean Platelet Volume 9.2; Monocytes # (A) 0.4 k/uL (0-1.0); Monocytes % (A) 6 %; Neutrophils # (A) 4.6 k/uL (1.3-7.7); Neutrophils % (A) 64 %; Platelet Count 167 k/uL (150-450); RBC 2.92 m/uL (4.30-5.90); RDW 14.2 % (11.5-15.5); WBC 7.2 k/uL (3.8-10.6)
[2019-10-15] MEDS: LEVOTHYROXINE 100 MCG TAB PO SCH (06:58)
[2019-10-15 07:01] LABS: Calcium 8.7 mg/dL (8.4-10.2); Potassium 5.3 mmol/L (3.5-5.1)
[2019-10-15] MEDS: METOPROLOL TARTRATE 25 MG TAB PO SCH ×2 (09:30→20:02)
[2019-10-15] MEDS: CARBIDOPA-LEVODOPA 25-100 MG 1 EACH TAB PO SCH ×3 (09:30→20:02)
[2019-10-15] MEDS: amLODIPine 5 MG TAB PO SCH (09:31)
[2019-10-15] MEDS: LINEZOLID 600 MG TAB PO SCH ×2 (09:31→20:05)
[2019-10-15] MEDS: APIXABAN 5 MG TAB PO SCH (09:31)
[2019-10-15] MEDS: ALLOPURINOL 100 MG TAB PO SCH (09:31)
[2019-10-15 12:12] LABS: Glucose,Whole Blood 128 mg/dL (75-99)
[2019-10-15] MEDS: SODIUM CHLORIDE 0.9% 1,000 ML IV SCH (12:22)
[2019-10-15] MEDS: ACETAMINOPHEN TAB 325 MG TAB PO PRN (12:25)
--- NOTE | 2019-10-15 15:00 | PN ---
PROGRESS NOTE Patient is seen for followup for acute kidney injury which appears to be mainly prerenal and associated with hypovolemia. Patient is maintained on IV fluids. Creatinine has improved with creatinine going down from 4.8 to 3.4 mg/dL. Previous. LABS: Shows a creatinine of about 2.9-3.0 earlier part of September. PHYSICAL EXAMINATION: On examination today, blood pressure was 141/61, heart rate 73 per minute, he is afebrile. Examination of the heart S1, S2. Examination of the lungs, bilateral breath sounds are heard. Abdomen is soft, non-tender. Examination of the lower extremities, chronic skin changes. No edema is noted. POUND ATTENDANT exam grossly intact. LABS: Show sodium 143, potassium 5.3, chloride 113, BUN 67, creatinine 3.4, hemoglobin 8.8 g/dL. ASSESSMENT: 1. Acute kidney injury, prerenal currently improving with IV hydration. 2. Chronic kidney disease stage III. Baseline creatinine about 1.3 as of August of 2019 secondary to nephrosclerosis. 3. History of MRSA bacteremia, maintained on antibiotics. 4. Anemia of chronic disease. 5. Mild hyperkalemia associated with acute kidney injury, currently stable. No evidence of solid currently stable has and has been incontinent. No evidence of urine retention. PLAN: Continue with IV fluids, continue to encourage increased oral intake, repeat labs in a.m. MMODL / IJN: [id number] /
[2019-10-15 16:54] LABS: Glucose,Whole Blood 74 mg/dL (75-99)
[2019-10-15 20:01] LABS: Glucose,Whole Blood 177 mg/dL (75-99)
[2019-10-15] MEDS: APIXABAN 2.5 MG TABLET PO SCH (20:02)
--- NOTE | 2019-10-15 21:22 | PN ---
PROGRESS NOTE DATE OF SERVICE: 10/15/2019 This 71-year-old gentleman was admitted with change in mental status, also had hyperkalemia and renal failure also. The patient being closely monitored at this time. The patient still has change in mental status. Patient is still on IV fluids. Patient being closely monitored. PAST MEDICAL HISTORY: Reviewed. REVIEW OF SYSTEM: Could not be taken, the patient is still confused. CURRENT MEDICATIONS: 1. Tylenol p.r.n. 2. Ventolin 2.5. 3. Zyloprim 100 mg p.o. daily. 4. Norvasc 5 mg. 5. Eliquis 5 mg p.o. b.i.d. 6. Dulcolax 10 mg p.o. daily. 7. Carbidopa/L-dopa p.o. t.i.d. 8. Rocephin 1 g daily. 9. Ancef 40 mg p.o. 7 days. 10.NovoLog. 11.Synthroid. 12.Zyvox 600 mg p.o. b.i.d. 13.Lopressor. 14.Narcan. PHYSICAL EXAM: Patient is conscious but confused. Pulse 54, blood pressure 107/47, respirations 16, temperature 97.2, pulse ox 97% on room air. HEENT: Conjunctivae normal. NECK: No jugular venous distention. CARDIOVASCULAR: S1, S2 muffled. RESPIRATORY SYSTEM: Breath sounds diminished at the bases. A few scattered rhonchi and crackles. ABDOMEN: Soft, nontender. No mass palpable. LEGS no edema. No swelling. CENTRAL NERVOUS SYSTEM: No focal deficits. LAB STUDIES: WBC 7.8, hemoglobin is 8.8, Sodium 140, potassium 5.3, creatinine 3.43. ASSESSMENT: 1. Severe hyperkalemia secondary to acute renal failure possibly from acute tubular necrosis and prerenal factors. 2. Chronic kidney stage 3, baseline. 3. Change in mental status, metabolic encephalopathy, acute. 4. History of recent urinary tract infection with sepsis and MRSA sepsis. 5. Extensive venous stasis dermatitis. 6. Gait dysfunction. 7. Diabetes mellitus type 2. 8. Hypertension. 9. Parkinson's. 10.Chronic obstructive pulmonary disease. 11.Peripheral neuropathy, diabetic. 12.Degenerative joint disease. 13.Hypothyroidism. 14.History of atrial flutter. 15.History of adenoidectomy. 16.History of claustrophobia. 17.Previous history of nicotine dependence. 18.History of bladder tumor removal and bladder cancer. 19.History of anxiety. 20.NO CODE, NO CPR, NO VENT. RECOMMENDATIONS AND DISCUSSION: I recommend to continue current medications, management and symptomatic treatment. Hyperkalemia slightly better, but however the patient's sensorium is still confused at this time. Continue with IV fluids cautiously. Closely follow with Nephrology. Guarded prognosis because of multiple complex medical issues and further recommendations to follow. MMODL / IJN: [id number] /
[2019-10-16 06:02] LABS: Glucose,Whole Blood 112 mg/dL (75-99)
[2019-10-16] MEDS: INSULIN ASPART (NovoLOG) 100 UNIT/ML VIAL SQ SCH ×4 (06:26→20:28)
[2019-10-16] MEDS: SODIUM CHLORIDE 0.9% 1,000 ML IV SCH ×2 (06:27→16:57)
[2019-10-16] MEDS: LEVOTHYROXINE 100 MCG TAB PO SCH (06:27)
[2019-10-16 06:50] LABS: Basophils % (A) 0 %; Eosinophils # (A) 0.3 k/uL (0-0.7); Eosinophils % (A) 4 %; HCT 28.2 % (39.0-53.0); HGB 9.1 gm/dL (13.0-17.5); Hypochromasia Slight; Lymphocytes # (A) 1.8 k/uL (1.0-4.8); Lymphocytes % (A) 22 %; MCH 30.1 pg (25.0-35.0); MCHC 32.1 g/dL (31.0-37.0); Mean Platelet Volume 8.8; Monocytes # (A) 0.5 k/uL (0-1.0); Monocytes % (A) 6 %; Neutrophils # (A) 5.4 k/uL (1.3-7.7); Neutrophils % (A) 66 %; Platelet Count 179 k/uL (150-450); WBC 8.1 k/uL (3.8-10.6)
[2019-10-16 07:02] LABS: Potassium 4.9 mmol/L (3.5-5.1)
[2019-10-16] MEDS: LINEZOLID 600 MG TAB PO SCH ×2 (08:46→20:36)
[2019-10-16] MEDS: ALLOPURINOL 100 MG TAB PO SCH (08:46)
[2019-10-16] MEDS: CARBIDOPA-LEVODOPA 25-100 MG 1 EACH TAB PO SCH ×3 (08:46→20:36)
[2019-10-16] MEDS: ACETAMINOPHEN TAB 325 MG TAB PO PRN (08:46)
[2019-10-16] MEDS: METOPROLOL TARTRATE 25 MG TAB PO SCH ×2 (08:46→20:36)
[2019-10-16] MEDS: APIXABAN 2.5 MG TABLET PO SCH ×2 (08:46→20:36)
[2019-10-16] MEDS: amLODIPine 5 MG TAB PO SCH (08:46)
[2019-10-16 11:53] LABS: Glucose,Whole Blood 178 mg/dL (75-99)
--- NOTE | 2019-10-16 13:05 | PN ---
PROGRESS NOTE The patient is seen for followup for acute kidney injury. Currently he is doing fairly well. Renal function has improved. PHYSICAL EXAMINATION: This morning blood pressure was 115/53, heart rate 76 per minute, he is afebrile. Examination of the heart S1, S2. Examination of the lungs, bilateral breath sounds are heard. Abdomen is soft, non-tender. Examination of lower extremities shows chronic skin changes. No edema is seen. CLINICAL TRIAL MANAGER exam grossly intact. LABS: Sodium 145, potassium 4.9, chloride 112, CO2 is 23. BUN 50, creatinine 2.87, hemoglobin 9.1 g/dL. ASSESSMENT: 1. Acute kidney injury, prerenal, currently improving. The patient is maintained on IV fluids which we will continue for now. He is also encouraged to increase his oral intake. 2. Urinary tract infection with urine culture growing gram-negative bacilli, maintained on antibiotics. 3. Chronic kidney disease stage III. Baseline creatinine about 1.3 as of August of 2019 secondary to nephrosclerosis. 4. History of MRSA bacteremia. 5. Mild hyperkalemia associated with acute kidney injury, currently stable. PLAN: Continue with IV fluids. Repeat labs in a.m. MMODL / IJN: [id number] /
[2019-10-16 16:50] LABS: Glucose,Whole Blood 107 mg/dL (75-99)
[2019-10-16 20:24] LABS: Glucose,Whole Blood 121 mg/dL (75-99)
--- NOTE | 2019-10-16 20:33 | PN ---
PROGRESS NOTE DATE OF SERVICE: 10/16/2019 This 79-year-old gentleman admitted with change in mental status, also acute renal failure. Patient also has UTI, gram-negative bacilli grown from the culture. Final ID is pending at this time. The patient is on cautious IV fluids. Creatinine is 2.8 and the potassium 4.9. Patient is still confused. Nephrology following the patient closely. Hemoglobin 9.1. PAST MEDICAL HISTORY: Reviewed. REVIEW OF SYSTEMS: CARDIOVASCULAR SYSTEM: No angina. GI: As mentioned earlier. : As mentioned earlier. NERVOUS SYSTEM: Diffuse weakness. CURRENT MEDICATIONS: 1. Tylenol p.r.n. 2. Ventolin 2.5 q.6h p.r.n. 3. Zyloprim 100 mg. 4. Norvasc 5 mg p.o. daily. 5. Eliquis 2.5 mg b.i.d. 6. Dulcolax. 7. Sinemet 25/100 p.o. t.i.d. 8. Rocephin 1 g IV daily. 9. Ancef 40 mg subcu q.7 days. 10.NovoLog. 11.Synthroid 100 mcg p.o. 12.Zyvox 600 mg p.o. b.i.d. 13.Lopressor 25 mg p.o. b.i.d. 14.Narcan. 15.P.r.n. medications. PHYSICAL EXAMINATION: Patient is alert, oriented x2. Pulse 60, blood pressure is 114/50, respirations 16, temperature 97.8, pulse ox 94% on room air HEENT: Conjunctivae normal. Oral mucosa moist. NECK: No jugular venous distention. No lymph node enlargement. CARDIOVASCULAR: S1, S2. RESPIRATORY: Diminished breath sounds at the bases. Bilateral scattered rhonchi and crackles. ABDOMEN: Soft, nontender. LEGS: No edema, no swelling. NERVOUS SYSTEM: No focal deficits. LABS: WBC 8.2, hemoglobin 9.1, creatinine is 2.87. ASSESSMENT: 1. Severe hyperkalemia secondary to acute renal failure, possibly from acute tubular necrosis with prerenal factors, present on admission with possibility from diminished p.o. intake. 2. Chronic kidney stage 3, baseline. 3. Change in mental status, acute metabolic encephalopathy. 4. Acute urinary tract infection with gram-negative bacilli present on admission. 5. History of recent urinary tract infection with sepsis and MRSA sepsis. 6. Extensive venous stasis dermatitis history. 7. Gait dysfunction. 8. Diabetes mellitus type 2. 9. Hypertension. 10.Parkinson's. 11.History of chronic obstructive pulmonary disease. 12.Peripheral neuropathy, diabetic. 13.Degenerative joint disease. 14.History of hypothyroidism. 15.History of atrial flutter. 16.History of adenoidectomy. 17.History of claustrophobia. 18.Previous history of nicotine dependence. 19.History of bladder tumor removal and bladder cancer. 20.History of anxiety. 21.NO CODE, NO CPR, NO VENT. RECOMMENDATIONS AND DISCUSSION: I recommend to continue current medication, continue symptomatic treatment, continue the antibiotics. Continue the cautious hydration. Repeat labs. Repeat lytes. Monitor creatinine closely. Otherwise, PT/OT evaluation, possible ECF rehab. Otherwise, continue the rest of the medications. Continue with Nephrology. Guarded prognosis. Further recommendations to follow. MMEROSL / IJN: [id number] /
[2019-10-17] MEDS: SODIUM CHLORIDE 0.9% 1,000 ML IV SCH ×2 (03:00→17:43)
[2019-10-17 06:08] LABS: Glucose,Whole Blood 130 mg/dL (75-99)
[2019-10-17] MEDS: INSULIN ASPART (NovoLOG) 100 UNIT/ML VIAL SQ SCH ×4 (06:14→20:19)
[2019-10-17] MEDS: LEVOTHYROXINE 100 MCG TAB PO SCH (06:32)
[2019-10-17 08:00] LABS: Magnesium 1.8 mg/dL (1.6-2.3)
[2019-10-17] MEDS: ACETAMINOPHEN TAB 325 MG TAB PO PRN (10:35)
[2019-10-17] MEDS: LINEZOLID 600 MG TAB PO SCH ×2 (10:36→20:19)
[2019-10-17] MEDS: ALLOPURINOL 100 MG TAB PO SCH (10:37)
[2019-10-17] MEDS: APIXABAN 2.5 MG TABLET PO SCH ×2 (10:37→20:19)
[2019-10-17] MEDS: amLODIPine 5 MG TAB PO SCH (10:37)
[2019-10-17] MEDS: METOPROLOL TARTRATE 25 MG TAB PO SCH ×2 (10:37→20:19)
[2019-10-17] MEDS: CARBIDOPA-LEVODOPA 25-100 MG 1 EACH TAB PO SCH ×3 (10:38→20:19)
--- NOTE | 2019-10-17 10:48 | P.PN ---
Subjective Patient seen in follow-up for acute kidney injury on chronic kidney disease. Renal function continues to improve. He is maintained on IV fluids. Somewhat confused. Oral intake is fair. Patient is incontinent. Vital signs are stable. General: The patient appeared well nourished and normally developed. HEENT: Head exam is unremarkable. Neck is without jugular venous distension. LUNGS: Lungs are clear to auscultation and percussion. Breath sounds decreased. HEART: Rate and Rhythm are regular. First and second heart sounds normal. No murmurs, rubs or gallops. ABDOMEN: Abdominal exam reveals normal bowel sounds. Non-tender and non-disten ded. No evidence of peritonitis. EXTREMITITES: No clubbing, cyanosis, or edema. Chronic changes noted. Objective - Vital Signs Vital signs: Vital Signs Temp 97.1 F L 10/17/19 08:00 Pulse 79 10/17/19 08:00 Resp 20 10/17/19 08:00 BP 134/64 10/17/19 08:00 Pulse Ox 95 10/17/19 03:12 Intake & Output 10/16/19 10/17/19 10/17/19 18:59 06:59 18:59 Intake Total 118 120 Output Total 250 625 200 Balance -132 -625 -80 Weight 92 kg Intake: Oral 118 120 Output: Urine 250 625 200 Other: Voiding Method Diaper Urinal Diaper # Voids 6 1 - Labs CBC & Chem 7: 10/16/19 06:17 10/17/19 05:57 Labs: Abnormal Lab Results - Last 24 Hours (Table) 10/16/19 10/16/19 10/16/19 Range/Units 11:48 16:39 20:22 Chloride (98-107) mmol/L BUN (9-20) mg/dL Creatinine (0.66-1.25) mg/dL Glucose (74-99) mg/dL POC Glucose (mg/dL) 178 H 107 H 121 H (75-99) mg/dL 10/17/19 10/17/19 Range/Units 05:57 06:07 Chloride 112 H (98-107) mmol/L BUN 39 H (9-20) mg/dL Creatinine 2.37 H (0.66-1.25) mg/dL Glucose 122 H (74-99) mg/dL POC Glucose (mg/dL) 130 H (75-99) mg/dL Microbiology - Last 24 Hours (Table) 10/13/19 22:41 Blood Culture - Preliminary Blood No Growth after 72 hours 10/14/19 14:00 Urine Culture - Final Urine,Voided Pseudomonas aeruginosa Assessment and Plan Plan: Assessment: 1. Acute kidney injury mostly prerenal secondary to hypotension and diuresis. Creatinine was 4.8 on admission and is 2.37 today. 2. Chronic kidney disease stage III with baseline creatinine near 1.2-1.3 as of August 2019. 3. MRSA bacteremia maintained on antibiotics. 4. Hyperkalemia secondary to acute kidney injury. Better. 5. Insulin-dependent diabetes mellitus. 6. Anemia of chronic kidney disease maintained on Aranesp. Iron replete. 7. UTI with urine culture positive for Pseudomonas. Plan: Maintain normal saline at 75 mL an hour. Hold diuretics. Hold antihypertensives for systolic blood pressure less than 120. Repeat electrolytes in the morning.
[2019-10-17 11:33] LABS: Glucose,Whole Blood 163 mg/dL (75-99)
[2019-10-17] MEDS ORDERED: PIPERACILLIN-TAZOBACTAM 3.375 GM in SODIUM CHLORIDE 0.9% 100 ML IVPB SCH (12:00)
--- NOTE | 2019-10-17 14:28 | P.PN ---
Subjective Progress Note Date: 10/17/19 Principal diagnosis: This is a 71-year-old male who was recently admitted for change in mental status, acute renal failure, elevated potassium and is being closely monitored. Patient appears to be dehydrated. Patient is quite lethargic but is arousable. Patient has been refusing to eat and drink just likes to sleep. Patient was recently at [facility] on the [place] for continued rehab along with oral Zyvox for persistent bacteremia. Creatinine today showed some slight improvement in is 4.22. nephrology is following. Patient will continue on IV normal saline at 75 ML per hour. Review of Systems: Cardiovascular: No reports of chest pain or palpitations Respiratory: No reports of shortness of breath or cough GI: No reports of nausea, vomiting, or diarrhea : No reports of dysuria or retention 10/17/2019 Patient is lying in bed yelling out asking for help to get out of the bed. Patient continues to be confused but is redirectable at times. When talking with the patient this morning, patient was asking to get out of the bed so he could go to the bathroom. Patient has been incontinent with a brief and intermittently using a urinal. Urinal was provided. Patient's urine cultures finalized with pseudomonas aeruginosa. Patient has been refusing to work with physical therapy per nursing staff. Physical therapy was contacted and a reevaluation was requested. Spoke with the patient about working with physical therapy and he was agreeable this morning but stated "I'm making no promises". Creatinine today is 2.37 and potassium is 5.0. Patient currently maintained on IV normal saline at 75 ML per hour and will continue at this time. Review of Systems: Cardiovascular: No reports of chest pain or palpitations Respiratory: No reports of shortness of breath or cough GI: No reports of nausea, vomiting, or diarrhea : No reports of dysuria or retention Objective - Vital Signs Vital signs: Vital Signs Temp 98.7 F 10/17/19 03:12 Pulse 65 10/17/19 03:13 Resp 18 10/17/19 03:13 BP 137/70 10/17/19 03:12 Pulse Ox 95 10/17/19 03:12 Intake & Output 10/16/19 10/17/19 10/17/19 18:59 06:59 18:59 Intake Total 118 120 Output Total 250 625 200 Balance -132 -625 -80 Weight 92 kg Intake: Oral 118 120 Output: Urine 250 625 200 Other: Voiding Method Diaper Urinal Diaper # Voids 6 1 - Exam Gen: This is a 79-year-old male lying in bed yelling out asking for assistance to get out of the bed. Temp is 98.7F, pulse is 65, respirations are 18, blood pressure is 137/70, oxygen saturation is 95% on room air. HEENT: Head is atraumatic, normocephalic. Pupils equal, round. Sclerae is a nicteric. Mucous membranes are dry NECK: Supple. No JVD. No lymphadenopathy. No thyromegaly. LUNGS: Diminished breath sounds at the bases with a few scattered crackles noted. No wheezing noted. No intercostal retractions. HEART: S1, S2 are muffled with an ejection systolic murmur noted. ABDOMEN: Soft. Obese. Bowel sounds are present. No masses. No tenderness. EXTREMITIES: No pedal edema. No calf tenderness. NEUROLOGICAL: Patient is awake, alert and oriented x1-2. Diffuse weakness noted - Labs CBC & Chem 7: 10/16/19 06:17 10/17/19 05:57 Labs: Abnormal Lab Results - Last 24 Hours (Table) 10/16/19 10/16/19 10/16/19 Range/Units 11:48 16:39 20:22 Chloride (98-107) mmol/L BUN (9-20) mg/dL Creatinine (0.66-1.25) mg/dL Glucose (74-99) mg/dL POC Glucose (mg/dL) 178 H 107 H 121 H (75-99) mg/dL 10/17/19 10/17/19 Range/Units 05:57 06:07 Chloride 112 H (98-107) mmol/L BUN 39 H (9-20) mg/dL Creatinine 2.37 H (0.66-1.25) mg/dL Glucose 122 H (74-99) mg/dL POC Glucose (mg/dL) 130 H (75-99) mg/dL Microbiology - Last 24 Hours (Table) 10/13/19 22:41 Blood Culture - Preliminary Blood No Growth after 72 hours 10/14/19 14:00 Urine Culture - Final Urine,Voided Pseudomonas aeruginosa Assessment and Plan Assessment: Severe hyperkalemia secondary to acute renal failure with possible acute tubular necrosis and prerenal factors, present on admission with possibility from diminished by mouth intake, baseline Acute urinary tract infection with gram-negative bacilli, present on admission History of recent urinary tract infection with sepsis and MRSA sepsis Extensive venous stasis dermatitis history Gait dysfunction Change in mental status, metabolic encephalopathy, acute Diabetes mellitus type 2 Hypertension Parkinson's History of COPD Peripheral neuropathy, diabetic Degenerative joint disease History of hypothyroidism history of atrial flutter History of adenoidectomy History of claustrophobia Mode history of nicotine dependence History of bladder tumor removal with bladder cancer history of anxiety No code, no CPR, no vent Recommendations and discussion: Recommend to continue current medications, management, and symptomatic treatment. Nephrology is following. Will continue with IV normal saline at 75 ML per hour and will monitor vital signs and labs closely. Urine culture finalized with Pseudomonas aeruginosa. Will add IV Zosyn. Infectious disease is consulted and pending at this time. Will repeat a.m. labs. PT requested to reevaluate as patient had been refusing to work with them. Due to multiple complex medical issues prognosis is guarded. Further recommendations to follow.
[2019-10-17 16:51] LABS: Glucose,Whole Blood 134 mg/dL (75-99)
[2019-10-17 20:06] LABS: Glucose,Whole Blood 184 mg/dL (75-99)
[2019-10-17] MEDS: CIPROFLOXACIN HCL 500 MG TAB PO SCH (20:19)
--- NOTE | 2019-10-17 23:02 | CONS ---
CONSULTATION DATE OF SERVICE: 10/17/2019. REASON FOR STAY: Pseudomonas aeruginosa urinary tract infection. HISTORY OF PRESENT ILLNESS: The patient is a 79 -year-old male who presented to the ER at [facility] on October 13, 2019 for apparently the patient did have abnormal labs that was drawn at [facility] on the [place]. The patient apparently did have a history of UTI bacteremia. The patient was getting Zyvox for his persistent bacteremia. The patient was noticed to have a creatinine of 4 for which the patient has been brought back to the [facility] ER. The patient, on presentation to the hospital, was afebrile and remains to be afebrile. The patient did have a normal white count which remains to be normal throughout his hospital stay. The patient's creatinine was elevated 4.8, it is now down to 2.37. The patient did have a UA done on 10/14/2019 which did show large leukocyte esterase with 106 WBC. The patient has been treated with Rocephin. However the patient's urine culture finalized with Pseudomonas aeruginosa. Antibiotic was switched over to Zosyn and Infectious Disease was consulted for further recommendations regarding antibiotic therapy. The patient unfortunately has pull out his IVs and is not letting the nurses to place an IV. Patient has been lethargic. Did respond to his name but did not answer any other questions asked of him, history on this patient making the history to be limited. Review of microbiological data did show the patient did have a positive blood cultures with MRSA from 08/31 until September 13, 2019 which were thought to be related to an infected left atrial clot and that was treated with multiple antibiotics combination including vancomycin, gentamicin, daptomycin, and finally Zyvox and the patient was advised to receive a course of oral Zyvox which the patient is currently on. As mentioned above, because of mental status, the patient is not a very good historian. REVIEW OF SYSTEMS: Could not be reliably obtained. Other positive points have been mentioned in HPI. PAST MEDICAL HISTORY: Past medical history is significant for MRSA, sepsis secondary to infected left atrial clot, congestive heart failure, COPD, diabetes mellitus, degenerative joint disease, Parkinson disease. PAST SURGICAL HISTORY: Appendectomy, bladder surgery, cholecystectomy, tonsillectomy, bladder tumor removal. SOCIAL HISTORY: Remote history of smoking. No drinking or drug use. FAMILY HISTORY: Father with history of bone cancer. Mother history of coronary artery disease. Sister with a history of breast cancer. ALLERGIES: ASPIRIN, MEDICATION. MEDICATION: Medication currently includes the patient is on Zosyn 3.75 q.8 hours. The patient is on Narcan, Lopressor, Zyvox, Synthroid, NovoLog, Sinemet, Dulcolax, Eliquis, Norvasc, Zyloprim, Tylenol. PHYSICAL EXAMINATION: Blood pressure 129/59 with a pulse of 56. Temperature 97.9. He is 96% on room air. General description is an elderly male lying in bed in no distress. No tachypnea or accessory muscles of respiration use. HEENT: Shows pallor. No scleral icterus. Oral mucosa is dry. Neck trachea central. No thyromegaly. Lungs unlabored breathing. Clear to auscultation anteriorly. No wheeze or crackles. Heart S1, S2. Regular rate and rhythm. ABDOMEN: Soft. No tenderness. No guarding or rigidity. Extremities are no edema of the feet. Examination of skin: No rash or mass palpable. Neurologically, the patient is currently lethargic, responding to his name. No further neurological exam could be completed. LABS: Hemoglobin 9.1, white count 8.1. BUN of 39, creatinine 2.37, improved from initial creatinine 4.80. Urine has been positive. Culture with Pseudomonas aeruginosa. Blood cultures 10/13 have been negative. DIAGNOSTIC IMPRESSION AND PLAN: Patient admitted to the hospital with abnormal labs in this patient noticed to have creatinine of 4.80 in this patient who did have a history of recent history of persistent MRSA bacteremia of almost 2 weeks that was treated with multiple antibiotic therapy and currently is getting oral Zyvox for the same with etiology of his persistent bacteremia thought to be left atrial, possible infected clot. Now this patient did have evidence of urinary tract infection with urine culture showing Pseudomonas aeruginosa, resistant to cefepime though positive sensitive to ciprofloxacin. PLAN: 1. UA culture will be repeated. 2. We will discontinue the Zosyn as the patient currently has no IV access and we will add oral Cipro 500 mg twice a day. 3. Continue Zyvox 600 mg p.o. twice a day. 4. We will follow up on his clinical condition and culture to further adjust medication if needed. Thank you for this consultation. We will follow this patient along with you. MMODL / IJN: [id number] /
[2019-10-18] MEDS: SODIUM CHLORIDE 0.9% 1,000 ML IV SCH ×2 (02:58→17:57)
[2019-10-18 06:07] LABS: Glucose,Whole Blood 119 mg/dL (75-99)
[2019-10-18] MEDS: INSULIN ASPART (NovoLOG) 100 UNIT/ML VIAL SQ SCH ×4 (06:08→20:52)
[2019-10-18 06:48] LABS: Calcium 9.1 mg/dL (8.4-10.2); Magnesium 1.7 mg/dL (1.6-2.3); Potassium 4.9 mmol/L (3.5-5.1)
[2019-10-18] MEDS: LEVOTHYROXINE 100 MCG TAB PO SCH (06:56)
[2019-10-18] MEDS: ACETAMINOPHEN TAB 325 MG TAB PO PRN (08:14)
[2019-10-18] MEDS: METOPROLOL TARTRATE 25 MG TAB PO SCH ×2 (08:14→20:05)
[2019-10-18] MEDS: APIXABAN 2.5 MG TABLET PO SCH ×2 (08:15→20:05)
[2019-10-18] MEDS: CARBIDOPA-LEVODOPA 25-100 MG 1 EACH TAB PO SCH ×3 (08:15→20:05)
[2019-10-18] MEDS: amLODIPine 5 MG TAB PO SCH (08:15)
[2019-10-18] MEDS: LINEZOLID 600 MG TAB PO SCH ×2 (08:15→20:07)
[2019-10-18] MEDS: CIPROFLOXACIN HCL 500 MG TAB PO SCH ×2 (08:16→20:05)
[2019-10-18] MEDS: ALLOPURINOL 100 MG TAB PO SCH (08:16)
--- NOTE | 2019-10-18 09:07 | P.PN ---
Subjective Patient seen in follow-up for acute kidney injury on chronic kidney disease. Renal function continues to improve. IV fluids were stopped last night as he pulled out his IV. Somewhat confused. Oral intake is fair. Patient is incontinent. Vital signs are stable. General: The patient appeared well nourished and normally developed. HEENT: Head exam is unremarkable. Neck is without jugular venous distension. LUNGS: Lungs are clear to auscultation and percussion. Breath sounds decreased. HEART: Rate and Rhythm are regular. First and second heart sounds normal. No murmurs, rubs or gallops. ABDOMEN: Abdominal exam reveals normal bowel sounds. Non-tender and non- distended. No evidence of peritonitis. EXTREMITITES: No clubbing, cyanosis, or edema. Chronic changes noted. Objective - Vital Signs Vital signs: Vital Signs Temp 98.5 F 10/18/19 04:00 Pulse 73 10/18/19 08:00 Resp 18 10/18/19 08:00 BP 132/60 10/18/19 08:00 Pulse Ox 94 L 10/18/19 08:00 Intake & Output 10/17/19 10/18/19 10/18/19 18:59 06:59 18:59 Intake Total 330 118 Output Total 200 Balance 130 118 Weight 92 kg 89.5 kg Intake: Oral 330 118 Output: Urine 200 Other: Voiding Method Urinal Urinal Diaper Diaper # Voids 1 1 # Bowel Movements 0 - Labs CBC & Chem 7: 10/16/19 06:17 10/18/19 05:34 Labs: Abnormal Lab Results - Last 24 Hours (Table) 10/17/19 10/17/19 10/17/19 Range/Units 11:30 16:36 20:04 Chloride (98-107) mmol/L BUN (9-20) mg/dL Creatinine (0.66-1.25) mg/dL Glucose (74-99) mg/dL POC Glucose (mg/dL) 163 H 134 H 184 H (75-99) mg/dL 10/18/19 10/18/19 Range/Units 05:34 06:05 Chloride 110 H (98-107) mmol/L BUN 31 H (9-20) mg/dL Creatinine 2.23 H (0.66-1.25) mg/dL Glucose 129 H (74-99) mg/dL POC Glucose (mg/dL) 119 H (75-99) mg/dL Microbiology - Last 24 Hours (Table) 10/13/19 22:41 Blood Culture - Preliminary Blood No Growth after 96 hours Assessment and Plan Plan: Assessment: 1. Acute kidney injury mostly prerenal secondary to hypotension and diuresis. Creatinine was 4.8 on admission and is 2.23 today. 2. Chronic kidney disease stage III with baseline creatinine near 1.2-1.3 as of August 2019. 3. MRSA bacteremia maintained on antibiotics. 4. Hyperkalemia secondary to acute kidney injury. Better. 5. Insulin-dependent diabetes mellitus. 6. Anemia of chronic kidney disease maintained on Aranesp. Iron replete. 7. UTI with urine culture positive for Pseudomonas. Plan: Ok to remain off IV fluids at this time. Encourage oral intake. Hold diuretics. Hold antihypertensives for systolic blood pressure less than 120. Repeat electrolytes in the morning.
[2019-10-18 11:45] LABS: Glucose,Whole Blood 204 mg/dL (75-99)
--- NOTE | 2019-10-18 13:38 | P.PN ---
Subjective Progress Note Date: 10/18/19 Principal diagnosis: This is a 71-year-old male who was recently admitted for change in mental status, acute renal failure, elevated potassium and is being closely monitored. Patient appears to be dehydrated. Patient is quite lethargic but is arousable. Patient has been refusing to eat and drink just likes to sleep. Patient was recently at [facility] on the [place] for continued rehab along with oral Zyvox for persistent bacteremia. Creatinine today showed some slight improvement in is 4.22. nephrology is following. Patient will continue on IV normal saline at 75 ML per hour. Review of Systems: Cardiovascular: No reports of chest pain or palpitations Respiratory: No reports of shortness of breath or cough GI: No reports of nausea, vomiting, or diarrhea : No reports of dysuria or retention 10/17/2019 Patient is lying in bed yelling out asking for help to get out of the bed. Patient continues to be confused but is redirectable at times. When talking with the patient this morning, patient was asking to get out of the bed so he could go to the bathroom. Patient has been incontinent with a brief and intermittently using a urinal. Urinal was provided. Patient's urine cultures finalized with pseudomonas aeruginosa. Patient has been refusing to work with physical therapy per nursing staff. Physical therapy was contacted and a reevaluation was requested. Spoke with the patient about working with physical therapy and he was agreeable this morning but stated "I'm making no promises". Creatinine today is 2.37 and potassium is 5.0. Patient currently maintained on IV normal saline at 75 ML per hour and will continue at this time. Review of Systems: Cardiovascular: No reports of chest pain or palpitations Respiratory: No reports of shortness of breath or cough GI: No reports of nausea, vomiting, or diarrhea : No reports of dysuria or retention 10/18/2019 Patient is sitting up in the chair and appears to be in no acute distress. Patient states that he wants to get out here and is tired of being here. Patient removed his own IV and currently has no IV access. IV antibiotics have been discontinued and patient is currently on oral Cipro along with Zyvox. Infectious disease is following along with nephrology. Patient's creatinine has slightly improved today and is 2.23. Discussed with nursing staff about continuing to encourage oral intake due to no IV access. Case management and social work are following for assistance with discharge planning as patient will be returning to [facility] on the [place]. Objective - Vital Signs Vital signs: Vital Signs Temp 97.5 F L 10/18/19 12:30 Pulse 63 10/18/19 12:30 Resp 18 10/18/19 12:30 BP 86/44 10/18/19 12:30 Pulse Ox 95 10/18/19 12:30 Intake & Output 10/17/19 10/18/19 10/18/19 18:59 06:59 18:59 Intake Total 330 428 Output Total 200 1 Balance 130 427 Weight 92 kg 89.5 kg Intake: Intake, IV Titration 100 Amount cefTRIAXone 1 gm In 100 Sodium Chloride 0.9% 50 ml @ 100 mls/hr IVPB Q24HR [facility] Rx#:[id number] Oral 330 328 Output: Urine 200 Stool 1 Other: Voiding Method Urinal Urinal Urinal Diaper Diaper Diaper # Voids 1 1 1 # Bowel Movements 0 - Exam Gen: This is a 79-year-old male lying in bed yelling out asking for assistance to get out of the bed. Temp is 98.5 F, pulse is 73, respirations are 18, blood pressure is 132/60, oxygen saturation is 94% on room air. HEENT: Head is atraumatic, normocephalic. Pupils equal, round. Sclerae is anicteric. Mucous membranes are dry NECK: Supple. No JVD. No lymphadenopathy. No thyromegaly. LUNGS: Diminished breath sounds at the bases with a few scattered crackles noted. No wheezing noted. No intercostal retractions. HEART: S1, S2 are muffled with an ejection systolic murmur noted. ABDOMEN: Soft. Obese. Bowel sounds are present. No masses. No tenderness. EXTREMITIES: No pedal edema. No calf tenderness. Mild right knee tenderness and swelling noted that is chronic. Bilateral lower extremity chronic venous stasis skin in addition noted NEUROLOGICAL: Patient is awake, alert and oriented x1-2. Diffuse weakness noted - Labs CBC & Chem 7: 10/16/19 06:17 10/18/19 05:34 Labs: Abnormal Lab Results - Last 24 Hours (Table) 10/17/19 10/17/19 10/18/19 Range/Units 16:36 20:04 05:34 Chloride 110 H (98-107) mmol/L BUN 31 H (9-20) mg/dL Creatinine 2.23 H (0.66-1.25) mg/dL Glucose 129 H (74-99) mg/dL POC Glucose (mg/dL) 134 H 184 H (75-99) mg/dL 10/18/19 10/18/19 Range/Units 06:05 11:40 Chloride (98-107) mmol/L BUN (9-20) mg/dL Creatinine (0.66-1.25) mg/dL Glucose (74-99) mg/dL POC Glucose (mg/dL) 119 H 204 H (75-99) mg/dL Microbiology - Last 24 Hours (Table) 10/13/19 22:41 Blood Culture - Preliminary Blood No Growth after 96 hours Assessment and Plan Assessment: Severe hyperkalemia secondary to acute renal failure with possible acute tubular necrosis and prerenal factors, present on admission with possibility from diminished by mouth intake, baseline Acute urinary tract infection with gram-negative bacilli, present on admission History of recent urinary tract infection with sepsis and MRSA sepsis Extensive venous stasis dermatitis history Gait dysfunction Change in mental status, metabolic encephalopathy, acute Diabetes mellitus type 2 Hypertension Parkinson's History of COPD Peripheral neuropathy, diabetic Degenerative joint disease History of hypothyroidism history of atrial flutter History of adenoidectomy History of claustrophobia Mode history of nicotine dependence History of bladder tumor removal with bladder cancer history of anxiety No code, no CPR, no vent Recommendations and discussion: Recommend to continue current medications, management, and symptomatic treatment. Nephrology is following. will monitor vital signs and labs closely. Infectious disease is following as well. Patient was started on oral Cipro along with Zyvox and will continue at this time. Patient removed his own IV and currently has no IV access. Discussed with nursing staff about continuing to encourage oral intake. Discussed with the patient about increasing his oral intake. Will repeat a.m. labs. PT/OT following. Patient was up in the chair again today. Due to multiple complex medical issues prognosis is guarded. Further recommendations to follow. Possible discharge to [facility] on the [place] in 24-48 hours.
[2019-10-18 17:01] LABS: Glucose,Whole Blood 116 mg/dL (75-99)
[2019-10-18 20:44] LABS: Glucose,Whole Blood 122 mg/dL (75-99)
--- NOTE | 2019-10-18 23:15 | PN ---
PROGRESS NOTE DATE OF SERVICE: 10/18/2019 REASON FOR FOLLOWUP: Pseudomonas urinary tract infection. INTERVAL HISTORY: The patient is currently afebrile. The patient remains to be pleasantly confused though less irritation. No nausea, vomiting. Denies any chest or any cough, no abdominal pain and no diarrhea. PHYSICAL EXAMINATION: Blood pressure 119/60 with a pulse of 51, temperature 97.3. He is 98% on room air. General description is an elderly male up in the chair in no distress. Respiratory system: Unlabored breathing. Decreased breath sounds in the bases, no wheeze. Heart S1, S2. Regular rate and rhythm. Abdomen soft, no tenderness. Extremities are no edema of the feet. LABS: BUN of 31, creatinine is 2.23. Repeat urine cultures ordered, are not done. DIAGNOSTIC IMPRESSION AND PLAN: 1. Patient with Pseudomonas urinary tract infection who was admitted to the hospital with acute renal failure. The patient is currently covered with support to continue to finish a course of therapy. 2. Patient with recent MRSA bacteremia, thought to be left atrial clot. Cultures done this admission has been negative. Patient on oral Zyvox to continue and finish his course of therapy. 3. Continue supportive care. MMODL / IJN: [id number] /
[2019-10-19 03:07] LABS: Calcium 9.1 mg/dL (8.4-10.2); Potassium 5.4 mmol/L (3.5-5.1)
[2019-10-19] MEDS: SODIUM CHLORIDE 0.9% 1,000 ML IV SCH ×2 (05:41→21:59)
[2019-10-19 06:19] LABS: Glucose,Whole Blood 134 mg/dL (75-99)
[2019-10-19] MEDS: INSULIN ASPART (NovoLOG) 100 UNIT/ML VIAL SQ SCH ×4 (06:26→21:59)
[2019-10-19] MEDS: LEVOTHYROXINE 100 MCG TAB PO SCH (06:45)
[2019-10-19 07:50] LABS: Appearance,Urine Cloudy (Clear); Bacteria,Urine Rare /hpf; Bilirubin,Urine Negative (Negative); Blood,Urine Small (Negative); Budding Yeast,Urine Few /hpf; Color,Urine Yellow; Glucose,Urine (UA) Negative (Negative); Ketones,Urine Negative (Negative); Leukocyte Esterase,Urine Large (Negative); Mucus,Urine Rare /hpf; Nitrite,Urine Negative (Negative); Protein,Urine 1+ (Negative); RBC,Urine 11 /hpf (0-5); Specific Gravity,Urine 1.015 (1.001-1.035); Squamous Epithelial Cell,Urine 1 /hpf (0-4); Urobilinogen,Urine <2.0 mg/dL (<2.0); WBC,Urine >182 /hpf (0-5)
[2019-10-19] MEDS: CIPROFLOXACIN HCL 500 MG TAB PO SCH ×2 (09:43→21:58)
[2019-10-19] MEDS: LINEZOLID 600 MG TAB PO SCH ×2 (09:43→21:58)
[2019-10-19] MEDS: APIXABAN 2.5 MG TABLET PO SCH ×2 (09:43→21:59)
[2019-10-19] MEDS: amLODIPine 5 MG TAB PO SCH (09:43)
[2019-10-19] MEDS: METOPROLOL TARTRATE 25 MG TAB PO SCH ×2 (09:43→21:59)
[2019-10-19] MEDS: CARBIDOPA-LEVODOPA 25-100 MG 1 EACH TAB PO SCH ×3 (09:43→21:58)
[2019-10-19] MEDS: ALLOPURINOL 100 MG TAB PO SCH (09:43)
--- NOTE | 2019-10-19 09:47 | P.PN ---
Subjective Patient seen in follow-up for acute kidney injury on chronic kidney disease. Renal function is slightly worse today. Remains off IV fluids as he pulled out his IV line. Oral intake is fair. IV fluids were stopped last night as he pulled out his IV. Patient is incontinent. Vital signs are stable. General: The patient appeared well nourished and normally developed. HEENT: Head exam is unremarkable. Neck is without jugular venous distension. LUNGS: Lungs are clear to auscultation and percussion. Breath sounds decreased. HEART: Rate and Rhythm are regular. First and second heart sounds normal. No murmurs, rubs or gallops. ABDOMEN: Abdominal exam reveals normal bowel sounds. Non-tender and non- distended. No evidence of peritonitis. EXTREMITITES: No clubbing, cyanosis, or edema. Chronic changes noted. Objective - Vital Signs Vital signs: Vital Signs Temp 98.2 F 10/19/19 01:52 Pulse 75 10/19/19 01:52 Resp 18 10/19/19 01:52 BP 109/45 10/19/19 01:52 Pulse Ox 95 10/19/19 01:52 Intake & Output 10/18/19 10/19/19 10/19/19 18:59 06:59 18:59 Intake Total 548 Output Total 1 201 Balance 547 -201 Intake: Intake, IV Titration 100 Amount cefTRIAXone 1 gm In 100 Sodium Chloride 0.9% 50 ml @ 100 mls/hr IVPB Q24HR [facility] Rx#:[id number] Oral 448 Output: Urine 200 Stool 1 1 Other: Voiding Method Urinal Urinal Diaper Diaper # Voids 1 1 - Labs CBC & Chem 7: 10/16/19 06:17 10/19/19 02:30 Labs: Abnormal Lab Results - Last 24 Hours (Table) 10/18/19 10/18/19 10/18/19 Range/Units 11:40 16:42 20:39 Potassium (3.5-5.1) mmol/L Chloride (98-107) mmol/L BUN (9-20) mg/dL Creatinine (0.66-1.25) mg/dL Glucose (74-99) mg/dL POC Glucose (mg/dL) 204 H 116 H 122 H (75-99) mg/dL Urine Protein (Negative) Urine Blood (Negative) Ur Leukocyte Esterase (Negative) Urine RBC (0-5) /hpf Urine WBC (0-5) /hpf Urine WBC Clumps (None) /hpf Urine Bacteria (None) /hpf Urine Mucus (None) /hpf Urine Yeast (Budding) (None) /hpf 10/18/19 10/19/19 10/19/19 Range/Units 22:55 02:30 06:03 Potassium 5.4 H (3.5-5.1) mmol/L Chloride 110 H (98-107) mmol/L BUN 30 H (9-20) mg/dL Creatinine 2.52 H (0.66-1.25) mg/dL Glucose 156 H (74-99) mg/dL POC Glucose (mg/dL) 134 H (75-99) mg/dL Urine Protein 1+ H (Negative) Urine Blood Small H (Negative) Ur Leukocyte Esterase Large H (Negative) Urine RBC 11 H (0-5) /hpf Urine WBC >182 H (0-5) /hpf Urine WBC Clumps Few H (None) /hpf Urine Bacteria Rare H (None) /hpf Urine Mucus Rare H (None) /hpf Urine Yeast (Budding) Few H (None) /hpf Microbiology - Last 24 Hours (Table) 10/13/19 22:41 Blood Culture - Preliminary Blood No Growth after 120 hours Assessment and Plan Plan: Assessment: 1. Acute kidney injury mostly prerenal secondary to hypotension and diuresis. Creatinine was 4.8 on admission and did come down to 2.23. It is slightly worse at 2.5 today. 2. Chronic kidney disease stage III with baseline creatinine near 1.2-1.3 as of August 2019. 3. MRSA bacteremia maintained on antibiotics. 4. Hyperkalemia secondary to acute kidney injury. Stable. 5. Insulin-dependent diabetes mellitus. 6. Anemia of chronic kidney disease maintained on Aranesp. Iron replete. 7. UTI with urine culture positive for Pseudomonas. Plan: Ok to remain off IV fluids at this time. Encouraged oral intake. Hold diuretics. Hold antihypertensives for systolic blood pressure less than 120. Repeat electrolytes in the morning.
[2019-10-19 09:50] VITALS: RESP 16
[2019-10-19 11:50] LABS: Glucose,Whole Blood 196 mg/dL (75-99)
[2019-10-19 15:11] VITALS: BMI 29.1
[2019-10-19] MEDS: MEGESTROL 400 MG/10 ML CUP PO SCH (16:12)
--- NOTE | 2019-10-19 16:55 | PN ---
PROGRESS NOTE DATE OF SERVICE: 10/19/2019 REASON FOR FOLLOWUP: 1. Pseudomonas UTI. 2. MRSA bacteremia. INTERVAL HISTORY: The patient is currently afebrile, seems to be more awake and alert. Less agitation. Denies having any chest pain, shortness of breath or cough. No abdominal pain or diarrhea has been reported. PHYSICAL EXAMINATION: Blood pressure 104/57 with a pulse of 76, temperature of 99.2. He is 96% on room air. General description is an elderly male lying in bed in no distress. RESPIRATORY SYSTEM: Unlabored breathing. Clear to auscultation anteriorly. HEART: S1, S2. Regular rate and rhythm. ABDOMEN: Soft. No tenderness. EXTREMITIES: No edema of the feet. LABS: BUN of 30, creatinine 2.52. Blood cultures have been negative. Repeat urine culture is pending. DIAGNOSTIC IMPRESSION AND PLAN: 1. Patient with a Pseudomonas aeruginosa urinary tract infection. Patient is currently covered with Cipro; to continue while waiting for the repeat urine culture to finalize. 2. Patient with methicillin-resistant Staphylococcus aeruginosa bacteremia, for which the patient is currently on Zyvox. Continue to finish a 6-week course of therapy and monitor his clinical course closely. MMODL / IJN: [id number] /
[2019-10-19 17:09] LABS: Glucose,Whole Blood 114 mg/dL (75-99)
[2019-10-19 19:56] LABS: Glucose,Whole Blood 137 mg/dL (75-99)
--- NOTE | 2019-10-19 20:04 | PN ---
PROGRESS NOTE DATE OF SERVICE: 10/19/2019 This 79-year-old gentleman who was admitted with severe hyperkalemia and renal failure is being closely monitored. The patient also had a severe UTI. Pseudomonas was grown from the culture. The patient is on Cipro. The patient also had hyperkalemia, present on admission. Potassium is 5.4 at this time. The patient is slightly confused, and patient is noncompliant with the medications. Past medical history reviewed. REVIEW OF SYSTEMS: CARDIOVASCULAR SYSTEM: No angina. RESPIRATORY: As mentioned earlier. GI: As mentioned earlier. : No dysuria or retention. NEUROLOGIC SYSTEM: No numbness or weakness. CURRENT MEDICATIONS: Reviewed and include: 1. Tylenol 650 q.6 p.r.n. 2. Ventolin p.r.n. 3. Zyloprim. 4. Norvasc 5 mg daily. 5. Eliquis 2.5 mg. 6. Dulcolax. 7. Sinemet 25/100 one p.o. t.i.d. 8. Cipro 500 mg p.o. b.i.d. 9. Aranesp. 10.NovoLog. 11.Synthroid. 12.Zyvox 600 mg p.o. b.i.d. 13.Lopressor. 14.Narcan. PHYSICAL EXAMINATION: Patient is alert and oriented x2, otherwise confused. Pulse is 76, blood pressure 104/57, respirations 16, temperature is 99.2, pulse ox 96% on room air. HEENT: Conjunctivae normal. Oral mucosa moist. NECK: No jugular venous distention. No carotid bruits. No lymph node enlargement. CARDIOVASCULAR SYSTEMS: S1, S2, muffled. RESPIRATORY: Breath sounds diminished at the bases. Bilateral scattered rhonchi and crackles. ABDOMEN: Soft, nontender. LEGS: No edema, no swelling. NERVOUS SYSTEM: No focal deficits. LABS: WBC 8.2, hemoglobin 9.1. Otherwise, sodium 142, potassium 5.4, creatinine is 2.52. ASSESSMENT: 1. Severe hyperkalemia secondary to acute renal failure and possible acute tubular necrosis and prerenal factors, present on admission, possibly from diminished p.o. intake. 2. Acute urinary tract infection with Pseudomonas aeruginosa. 3. History of recent urinary tract infection with sepsis and MRSA sepsis. 4. Extensive venostasis and dermatitis history. 5. Change in mental status, metabolic encephalopathy, acute on chronic. 6. Gait dysfunction. 7. Diabetes mellitus, type 2. 8. Hypertension. 9. History of Parkinson's. 10.History of chronic obstructive pulmonary disease. 11.History of peripheral neuropathy, diabetic. 12.Degenerative joint disease. 13.History of hypothyroidism. 14.History of atrial flutter. 15.History of adenoidectomy. 16.History of claustrophobia. 17.Remote history of nicotine dependence. 18.History of bladder tumor removal and bladder cancer. 19.History of anxiety. 20.NO CODE, NO CPR, NO VENT. RECOMMENDATIONS AND DISCUSSION: In this 79-year-old gentleman who presented with multiple complex medical issues, we will monitor the patient closely, continue the current medications, continue with symptomatic treatment. Otherwise at this time I would recommend to continue with Cipro. The repeat urine culture is also abnormal. Will closely monitor with Infectious Disease. Otherwise, potassium is improved, as mentioned earlier. Would recommend repeat labs tomorrow. PT/OT evaluation, and once the patient is stabilized, the patient could be discharged to [facility]CF at this time. Avoid nephrotoxic medications. The prognosis is guarded because of multiple complex medical issues. Further recommendations to follow. Discussed with staff. NICOLE / ESSENCE: [id number] /
[2019-10-20 05:11] VITALS: BP 142/73; PULSE 76; TEMP 98.8
[2019-10-20] MEDS: LEVOTHYROXINE 100 MCG TAB PO SCH (05:32)
[2019-10-20 07:12] LABS: Glucose,Whole Blood 133 mg/dL (75-99)
[2019-10-20] MEDS: INSULIN ASPART (NovoLOG) 100 UNIT/ML VIAL SQ SCH ×2 (08:02→12:32)
[2019-10-20] MEDS: MEGESTROL 400 MG/10 ML CUP PO SCH (08:03)
[2019-10-20] MEDS: amLODIPine 5 MG TAB PO SCH (08:03)
[2019-10-20] MEDS: APIXABAN 2.5 MG TABLET PO SCH (08:03)
[2019-10-20] MEDS: METOPROLOL TARTRATE 25 MG TAB PO SCH (08:03)
[2019-10-20] MEDS: CIPROFLOXACIN HCL 500 MG TAB PO SCH (08:03)
[2019-10-20] MEDS: CARBIDOPA-LEVODOPA 25-100 MG 1 EACH TAB PO SCH ×2 (08:03→12:33)
[2019-10-20] MEDS: LINEZOLID 600 MG TAB PO SCH (08:04)
[2019-10-20] MEDS: ALLOPURINOL 100 MG TAB PO SCH (08:04)
[2019-10-20] MEDS: SODIUM CHLORIDE 0.9% 1,000 ML IV SCH (08:33)
[2019-10-20 09:03] LABS: Basophils # (A) 0.2 k/uL (0-0.2); Basophils % (A) 2 %; Eosinophils # (A) 0.2 k/uL (0-0.7); Eosinophils % (A) 2 %; HCT 27.9 % (39.0-53.0); HGB 8.6 gm/dL (13.0-17.5); Hypochromasia Moderate; Lymphocytes # (A) 1.9 k/uL (1.0-4.8); Lymphocytes % (A) 23 %; MCH 29.5 pg (25.0-35.0); MCHC 30.9 g/dL (31.0-37.0); MCV 95.4 fL (80.0-100.0); Mean Platelet Volume 8.9; Monocytes # (A) 0.4 k/uL (0-1.0); Monocytes % (A) 5 %; Neutrophils # (A) 5.6 k/uL (1.3-7.7); Neutrophils % (A) 66 %; Platelet Count 195 k/uL (150-450); RBC 2.93 m/uL (4.30-5.90); RDW 14.5 % (11.5-15.5); WBC 8.5 k/uL (3.8-10.6)
[2019-10-20 10:08] LABS: Calcium 8.9 mg/dL (8.4-10.2); Magnesium 1.8 mg/dL (1.6-2.3)
--- NOTE | 2019-10-20 10:28 | P.PN ---
Subjective Patient seen in follow-up for acute kidney injury on chronic kidney disease. Renal function is worsening again. Remains off IV fluids as he pulled out his IV line. Oral intake is fair. Patient is incontinent. Feels tired. Vital signs are stable. General: The patient appeared well nourished and normally developed. HEENT: Head exam is unremarkable. Neck is without jugular venous distension. LUNGS: Lungs are clear to auscultation and percussion. Breath sounds decreased. HEART: Rate and Rhythm are regular. First and second heart sounds normal. No murmurs, rubs or gallops. ABDOMEN: Abdominal exam reveals normal bowel sounds. Non-tender and non- distended. No evidence of peritonitis. EXTREMITITES: No clubbing, cyanosis, or edema. Chronic changes noted. Objective - Vital Signs Vital signs: Vital Signs Temp 98.8 F 10/20/19 05:00 Pulse 76 10/20/19 05:00 Resp 16 10/20/19 05:00 BP 142/73 10/20/19 05:00 Pulse Ox 98 10/20/19 05:00 Intake & Output 10/19/19 10/20/19 10/20/19 18:59 06:59 18:59 Intake Total 80 590 Output Total 2 Balance 78 590 Weight 89.5 kg Intake: Intake, IV Titration 0 Amount Sodium Chloride 0.9% 1, 0 000 ml @ 75 mls/hr IV . [id number] [facility] Rx#:[id number] Oral 80 590 Output: Stool 2 Other: Voiding Method Urinal Urinal Urinal Diaper Diaper Diaper # Voids 2 2 # Bowel Movements 2 - Labs CBC & Chem 7: 10/20/19 07:40 10/20/19 07:40 Labs: Abnormal Lab Results - Last 24 Hours (Table) 10/19/19 10/19/19 10/19/19 Range/Units 11:49 17:07 19:55 RBC (4.30-5.90) m/uL Hgb (13.0-17.5) gm/dL Hct (39.0-53.0) % MCHC (31.0-37.0) g/dL Chloride (98-107) mmol/L BUN (9-20) mg/dL Creatinine (0.66-1.25) mg/dL Glucose (74-99) mg/dL POC Glucose (mg/dL) 196 H 114 H 137 H (75-99) mg/dL 10/20/19 10/20/19 10/20/19 Range/Units 07:10 07:40 07:40 RBC 2.93 L (4.30-5.90) m/uL Hgb 8.6 L (13.0-17.5) gm/dL Hct 27.9 L (39.0-53.0) % MCHC 30.9 L (31.0-37.0) g/dL Chloride 112 H (98-107) mmol/L BUN 30 H (9-20) mg/dL Creatinine 2.76 H (0.66-1.25) mg/dL Glucose 138 H (74-99) mg/dL POC Glucose (mg/dL) 133 H (75-99) mg/dL Microbiology - Last 24 Hours (Table) 10/13/19 22:41 Blood Culture - Final Blood No Growth after 144 hours 10/18/19 22:55 Urine Culture - Preliminary Urine,Voided Assessment and Plan Plan: Assessment: 1. Acute kidney injury mostly prerenal secondary to hypotension and diuresis. Creatinine was 4.8 on admission and did come down to 2.23. It is up to 2.76 today. 2. Chronic kidney disease stage III with baseline creatinine near 1.2-1.3 as of August 2019. 3. MRSA bacteremia maintained on antibiotics. 4. Hyperkalemia secondary to acute kidney injury. Stable. 5. Insulin-dependent diabetes mellitus. 6. Anemia of chronic kidney disease maintained on Aranesp. Iron replete. 7. UTI with urine culture positive for Pseudomonas. Plan: Resume IV fluids with normal saline at 70 mL an hour. Encouraged oral intake. Hold diuretics. Hold antihypertensives for systolic blood pressure less than 120. Repeat electrolytes in the morning.
[2019-10-20 10:54] LABS: C Reactive Protein 159.3 mg/L (<10.0)
[2019-10-20 11:31] LABS: Glucose,Whole Blood 200 mg/dL (75-99)
--- NOTE | 2019-10-20 11:40 | P.DS ---
Providers Date of admission: 10/13/19 19:30 Attending physician: Kenyatta Paul Consults: 10/13/19 19:30 Consult Physician Urgent Consulting Provider: Ovi Morgan Consult Reason/Comments: sergio/ckd, hyperkalemia Do you want consulting provider notified?: Yes 10/17/19 11:52 Consult Physician Urgent Consulting Provider: Ross Bueno Consult Reason/Comments: pseudomonas aerug in urine/ recent bacteremia Do you want consulting provider notified?: Yes Primary care physician: [facility] Hospital Course: Final diagnosis Severe hypERkalemia secondary to acute renal failure and possible acute tubular necrosis and prerenal factors present on admission possibly from diminished by mouth intake Acute UTI with Pseudomonas aeruginosa History of recent UTI with sepsis with MRSA sepsis Extensive venous status and dermatitis history Change in mental status metabolic encephalopathy acute on chronic Gait dysfunction Diabetes was type II Hypertension History of Parkinson's History of COPD History of peripheral neuropathy diabetic History of DJD Hypothyroidism History atrial flutter History adenoidectomy History of claustrophobia Remote history and nicotine dependence History of bladder tumor removal and bladder cancer History of anxiety No code CPR event Discharge disposition This patient be discharged in a stable condition to [facility] total time taken 35 minutes a stable overall prognosis guarded History of present illness This 79-year-old gentleman with a past medical history multiple medical problems admitted with the elevated potassium and as well as acute renal failure possibly multifactorial mostly prerenal. Patient had treated symptomatically potassium was improved and the patient was also found to have Pseudomonas UTI infection disease was consulted. Ciprofloxacin is recommended. The overall patient may significant improvement by mouth intake is appears to be poor. Megace has been initiated. Patient is slightly confused. On exam vitals are stable cardio S1 and S2 normal respect respirator system few scattered rhonchi abdomen soft nontender no system diffusely weak Please refer to the medication reconciliation sheet for further list of medications Patient Condition at Discharge: Serious Plan - Discharge Summary Discharge Rx Participant: Yes New Discharge Prescriptions: New Ciprofloxacin HCl [Cipro] 500 mg PO BID #0 tab Megestrol [Megace] 400 mg PO DAILY cup INSULIN ASPART (NovoLOG) [NovoLOG (formulary)] 0 unit SQ ACHS vial Continue Carbidopa-Levodopa 25-100 mg [Sinemet 25-100 mg] 2 tab PO TID@0900,1300,2100 Levothyroxine Sodium [Synthroid] 100 mcg PO DAILY@0600 Albuterol Inhaler [Ventolin Hfa Inhaler] 2 puff INHALATION RT-Q6H PRN PRN Reason: Shortness Of Breath Metoprolol Tartrate [Lopressor] 25 mg PO BID@0900,2100 Furosemide [Lasix] 40 mg PO BID@0600,1200 Acetaminophen Tab [Tylenol] 650 mg PO Q6H PRN PRN Reason: Pain Ergocalciferol [Vitamin D2 (DRISDOL)] 1 cap PO Q14D Allopurinol [Zyloprim] 100 mg PO DAILY@0900 Bisacodyl [Dulcolax] 10 mg PO DAILY PRN tablet. PRN Reason: Constipation amLODIPine [Norvasc] 5 mg PO DAILY@0900 Insulin Aspart [NovoLOG Flexpen] 5 units SQ TID@0800,1200,1700 Linezolid [Zyvox] 600 mg PO BID@0900,2100 Ensure Clear 1 dose PO BID@0900,2100 Insulin Detemir [Levemir Flextouch] 18 units SQ HS@2100 Apixaban [Eliquis] 5 mg PO BID@0900,2100 Discharge Medication List Carbidopa-Levodopa 25-100 mg [Sinemet 25-100 mg] 2 tab PO TID@0900,1300,2100 07/08/16 [History] Levothyroxine Sodium [Synthroid] 100 mcg PO DAILY@0600 05/27/19 [History] Albuterol Inhaler [Ventolin Hfa Inhaler] 2 puff INHALATION RT-Q6H PRN 06/16/19 [History] Furosemide [Lasix] 40 mg PO BID@0600,1200 06/16/19 [History] Metoprolol Tartrate [Lopressor] 25 mg PO BID@0900,2100 06/16/19 [History] Acetaminophen Tab [Tylenol] 650 mg PO Q6H PRN 08/31/19 [History] Allopurinol [Zyloprim] 100 mg PO DAILY@0900 08/31/19 [History] Ergocalciferol [Vitamin D2 (DRISDOL)] 1 cap PO Q14D 08/31/19 [History] Bisacodyl [Dulcolax] 10 mg PO DAILY PRN tablet. 09/27/19 [Rx] Apixaban [Eliquis] 5 mg PO BID@0900,209910/13/19 [History] Ensure Clear 1 dose PO BID@0900,209910/13/19 [History] Insulin Aspart [NovoLOG Flexpen] 5 units SQ TID@0800,1200,1700 10/13/19 [History] Insulin Detemir [Levemir Flextouch] 18 units SQ HS@209910/13/19 [History] Linezolid [Zyvox] 600 mg PO BID@0900,209910/13/19 [History] amLODIPine [Norvasc] 5 mg PO DAILY@0900 10/13/19 [History] Ciprofloxacin HCl [Cipro] 500 mg PO BID #0 tab 10/20/19 [Rx] INSULIN ASPART (NovoLOG) [NovoLOG (formulary)] 0 unit SQ ACHS vial 10/20/19 [Rx] Megestrol [Megace] 400 mg PO DAILY cup 10/20/19 [Rx] Follow up Appointment(s)/Referral(s): Carlos Jose MD [STAFF PHYSICIAN] - 1-2 days Ovi Morgan DO [STAFF PHYSICIAN] - 1 Week Patient Instructions/Handouts: Chronic Kidney Disease (DC), Chronic Kidney Disease Diet (DC) Activity/Diet/Wound Care/Special Instructions: Diet consistent carb activity as tolerated Check CBC BMP 2-3 days and the periodically to follow potassium and renal functions Follow-up with the nephrology is recommended
--- NOTE | 2019-10-20 14:14 | PN ---
PROGRESS NOTE DATE OF SERVICE: 10/20/2019 REASON FOR FOLLOWUP: 1. Pseudomonas urinary tract infection. 2. MRSA bacteremia. INTERVAL HISTORY: The patient is currently afebrile. The patient has been breathing comfortably. The patient has been taking his medication as per discussion with the RN. No nausea, no vomiting or diarrhea has been reported. PHYSICAL EXAMINATION: Blood pressure is 142/73 with a pulse of 73, temperature 98.8. He is 98% on room air. General description is an elderly male, lying in bed in no distress. RESPIRATORY SYSTEM: Unlabored breathing, clear to auscultation anteriorly. HEART: S1, S2, regular rate and rhythm. ABDOMEN: Soft, no tenderness. LABS: Hemoglobin 8.1, white count 8.5, sed rate has been canceled. is 159. DIAGNOSTIC IMPRESSION/PLAN: 1. Patient with pseudomonas urinary tract infection. He will be continued on oral Cipro for about 5 days to finish a course of therapy. 2. Patient is treated for MRSA bacteremia for the patient will continue on Zyvox. Daylin continue to finish his therapy with weekly monitoring of sedimentation rate and CRP to make sure those have normalized before we discontinue antibiotics. Continue supportive care. MMODL / IJN: [id number] /
== END 2019-10-20 15:55 | DRG 682 ==
LOC: EC 16:04 → 4SSUR 19:30 → 3SCARD 10-14 03:03 → 5NMEDONC 10-19 16:20
PROVIDERS: ADMIT Internal Medicine; ATTEND Internal Medicine
DX: N17.0 Acute kidney failure with tubular necrosis (principal); G93.41 Metabolic encephalopathy; I13.0 Hypertensive heart and chronic kidney disease with heart failure and stage 1 through stage 4 chronic kidney disease, or unspecified chronic kidney disease; N39.0 Urinary tract infection, site not specified; Z16.24 Resistance to multiple antibiotics; R78.81 Bacteremia; B96.5 Pseudomonas (aeruginosa) (mallei) (pseudomallei) as the cause of diseases classified elsewhere; D63.1 Anemia in chronic kidney disease; E03.9 Hypothyroidism, unspecified; E11.22 Type 2 diabetes mellitus with diabetic chronic kidney disease; E11.42 Type 2 diabetes mellitus with diabetic polyneuropathy; E87.5 Hyperkalemia; F40.240 Claustrophobia; G20 Parkinson's disease; I25.2 Old myocardial infarction; I50.9 Heart failure, unspecified; I87.2 Venous insufficiency (chronic) (peripheral); J44.9 Chronic obstructive pulmonary disease, unspecified; M19.90 Unspecified osteoarthritis, unspecified site; N18.3 Chronic kidney disease, stage 3 (moderate); R32 Unspecified urinary incontinence; Z66 Do not resuscitate; Z79.01 Long term (current) use of anticoagulants; Z79.4 Long term (current) use of insulin; Z79.890 Hormone replacement therapy; Z79.899 Other long term (current) drug therapy; Z80.3 Family history of malignant neoplasm of breast; Z82.49 Family history of ischemic heart disease and other diseases of the circulatory system; Z85.51 Personal history of malignant neoplasm of bladder; Z86.14 Personal history of Methicillin resistant Staphylococcus aureus infection; Z87.440 Personal history of urinary (tract) infections; Z87.891 Personal history of nicotine dependence; Z91.14 Patient's other noncompliance with medication regimen; Z88.6 Allergy status to analgesic agent; Z90.49 Acquired absence of other specified parts of digestive tract; E86.0 Dehydration; B95.62 Methicillin resistant Staphylococcus aureus infection as the cause of diseases classified elsewhere
CPT/HCPCS: 36415; 71045; 80048; 80051; 80053; 81001; 82550; 82728; 83540; 83550; 83605; 83735; 84132; 84443; 85025; 85652; 86140; 87040; 87077; 87086; 87186; 93005; 96361; 96374; 99285

== ENCOUNTER 2019-10-27 16:02 | Inpatient (IN) | payer OTHER, MEDICARE ==
[2019-10-27] MEDS ORDERED: NALOXONE 0.4 MG/ML 1 ML VIAL IV PRN (18:01)
[2019-10-27] MEDS: SODIUM CHLORIDE 0.9% 1,000 ML IV SCH (18:29)
[2019-10-27 19:25] LABS: Basophils # (A) 0.1 k/uL (0-0.2); Basophils % (A) 1 %; Eosinophils # (A) 0.1 k/uL (0-0.7); Eosinophils % (A) 2 %; HCT 24.1 % (39.0-53.0); HGB 7.7 gm/dL (13.0-17.5); Hypochromasia Moderate; Lymphocytes # (A) 1.6 k/uL (1.0-4.8); Lymphocytes % (A) 22 %; MCH 30.2 pg (25.0-35.0); MCHC 31.9 g/dL (31.0-37.0); MCV 94.5 fL (80.0-100.0); Mean Platelet Volume 8.7; Monocytes # (A) 0.3 k/uL (0-1.0); Monocytes % (A) 5 %; Neutrophils # (A) 4.9 k/uL (1.3-7.7); Neutrophils % (A) 69 %; Platelet Count 203 k/uL (150-450); RBC 2.55 m/uL (4.30-5.90); RDW 15.2 % (11.5-15.5); WBC 7.2 k/uL (3.8-10.6)
[2019-10-27 19:46] LABS: Calcium 7.8 mg/dL (8.4-10.2); Potassium 5.4 mmol/L (3.5-5.1)
--- NOTE | 2019-10-27 23:06 | P.CONS ---
History of Present Illness - Reason for Consult Consult date: 10/27/19 UTI Requesting physician: Kirstie Isbell - Chief Complaint WEAKNESS , Mental status changes x 1 day - History of Present Illness Patient is a 79-year-old male who recently did have a prolonged hospital stay back in September 2019 the patient did have evidence of MRSA bacteremia did have extensive work-up was thought to be related to infected clot in his left atrium patient was treated with multiple antibiotic admission finally responding to Zyvox he was advised 6 to 8-week course of oral Zyvox patient was also recently admitted to this facility and the patient did have evidence of UTI urine was positive for pseudomonas aeruginosa as the patient was not allowing any IV that was treated with oral Cipro and subsequently patient was discharged to [facility] laboratory area on October 20, 2019. Patient was sent to [facility] ER from the [facility] with concern for metastatic disease and weakness and dehydration on that ER the patient was noticed to be in acute renal failure with elevated creatinine BUN patient also was normal patient UA was positive subsequently patient has been transferred to [facility] for further management. Patient at the time of my evaluation is awake and alert he is in the hospital however is not sure what he was doing denies having any headache no chest pain shortness with cough no nausea vomiting no abdominal pain no diarrhea. Review of Systems Positive point has been mentioned in HPI rest of the systems are negative Past Medical History Past Medical History: Atrial Flutter, Cancer, Heart Failure, COPD, Diabetes Mellitus, Hypertension, Musculoskeletal Disorder, Neurologic Disorder, Renal Disease, Thyroid Disorder Additional Past Medical History / Comment(s): PT ADMITTED ON 10/27/18 WITH BACTEREMIA D/T KLEBSIELLA PNE/TRANSAMINITIS/BILIARY SLUDGE PER US. OTHERHX: HX A-FLUTTER/TACHYCARDIA- TX W/ SAL/CARDIOVERSION, HAS BLADDER CA WITH SURGERY AND BLADDER INSTILLATION OF MED FOR BLADDER CANCER, IDC WITH UTI-REMOVED, IDDM TYPE II, BILATERAL CATARACTS, ABD HERNIA. PARKINSONS, DIVERTICULITIS, EDEMA FEET/LEGS, DDD lower spine, HYPOTHYROID, PNEUMONIA WITH SEPSIS, acute renal failure d/t acute tubular necrosis d/t sepsis, possible CKD. Last Myocardial Infarction Date:: UNK History of Any Multi-Drug Resistant Organisms: MRSA Year Discovered:: 09/13/19 MDRO Source:: Blood Past Surgical History: Adenoidectomy, Bladder Surgery, Cholecystectomy, Tonsillectomy Additional Past Surgical History / Comment(s): 2013 CARDIOVERSION, SAL. BLADDER TUMOR REMOVED,cystoscopy with bladder CA TREATMENTS, colonoscopy Past Anesthesia/Blood Transfusion Reactions: Previous Problems w/ Anesthesia Additional Past Anesthesia/Blood Transfusion Reaction / Comm: HX CLAUSTROPHOBIA Smoking Status: Former smoker - Past Family History Father Family Medical History: Cancer Additional Family Medical History / Comment(s): Bone cancer. Mother Family Medical History: Coronary Artery Disease (CAD) Additional Family Medical History / Comment(s): Macular degeneration Sister(s) Family Medical History: Cancer Additional Family Medical History / Comment(s): breast CA Medications and Allergies Home Medications Medication Instructions Recorded Confirmed Type Carbidopa-Levodopa 25-100 mg 2 tab PO TID 07/08/16 10/27/19 History [Sinemet 25-100 mg] Levothyroxine Sodium [Synthroid] 100 mcg PO HS 05/27/19 10/27/19 History Albuterol Inhaler [Ventolin Hfa 2 puff INHALATION RT-Q6H PRN 06/16/19 10/27/19 History Inhaler] Metoprolol Tartrate [Lopressor] 25 mg PO BID 06/16/19 10/27/19 History Acetaminophen Tab [Tylenol] 650 mg PO Q6H PRN 08/31/19 10/27/19 History Allopurinol [Zyloprim] 100 mg PO DAILY 08/31/19 10/27/19 History Apixaban [Eliquis] 5 mg PO BID 10/13/19 10/27/19 History Insulin Detemir [Levemir Flextouch] 18 units SQ HS 10/13/19 10/27/19 History Linezolid [Zyvox] 600 mg PO BID 10/13/19 10/27/19 History amLODIPine [Norvasc] 5 mg PO DAILY 10/13/19 10/27/19 History Ciprofloxacin HCl [Cipro] 500 mg PO BID #0 tab 10/20/19 10/27/19 Rx Megestrol [Megace] 400 mg PO DAILY cup 10/20/19 10/27/19 Rx Insulin Lispro [humaLOG Kwikpen] 5 unit SQ HS 10/27/19 10/27/19 History L.acidoph,Paracasei, B.lactis 1 cap PO BID 10/27/19 10/27/19 History [Probiotic] Liquical Liquid 30 ml PO BID 10/27/19 10/27/19 History Allergies Allergy/AdvReac Type Severity Reaction Status Date / Time aspirin Allergy Swelling Verified 10/27/19 20:25 NSAIDS (Non-Steroidal Allergy Swelling Verified 10/27/19 20:25 Anti-Inflamma Physical Exam Vitals: Vital Signs Temp Pulse Resp BP Pulse Ox 10/27/19 20:45 98.2 F 92 14 90/55 94 L Intake and Output 10/27/19 10/27/19 10/28/19 14:59 22:59 06:59 Other: Weight 84 kg GENERAL DESCRIPTION: Elderly male lying in bed, no distress. No tachypnea or ac cessory muscle of respiration use. HEENT: Shows Pallor , no scleral icterus. Oral mucous membrane is dry. NECK: Trachea central, no thyromegaly. LUNGS: Unlabored breathing. Decreased breath sounds at bases. No wheeze or crackle. HEART: S1, S2, regular rate and rhythm. ABDOMEN: Soft, no tenderness , guarding or rigidity EXTREMITIES: No edema of feet. SKIN: No rash, no masses palpable. NEUROLOGICAL: The patient is awake, alert, oriented x2, mood and affect normal. Results CBC & Chem 7: 10/27/19 18:39 10/27/19 18:39 Labs: Abnormal Lab Results - Last 24 Hours (Table) 10/27/19 10/27/19 Range/Units 18:39 18:39 RBC 2.55 L (4.30-5.90) m/uL Hgb 7.7 L (13.0-17.5) gm/dL Hct 24.1 L (39.0-53.0) % Potassium 5.4 H (3.5-5.1) mmol/L Chloride 113 H (98-107) mmol/L Carbon Dioxide 21 L (22-30) mmol/L BUN 45 H (9-20) mg/dL Creatinine 3.95 H (0.66-1.25) mg/dL Glucose 102 H (74-99) mg/dL Calcium 7.8 L (8.4-10.2) mg/dL Assessment and Plan Assessment: 1-patient admitted to hospital with mental status changes and weakness is likely multifactorial more likely metabolic and dehydration as the patient did have significant elevated BUN/creatinine however underlying UTI not entirely excluded as the patient did have a positive UA and was recently with a oral Cipro for Pseudomonas UTI question of oral Cipro failure 2-patient with prolonged MRSA bacteremia in September 2019 thought to be related to infected left atrial clot (1) MRSA bacteremia Current Visit: Yes Status: Acute Code(s): R78.81 - BACTEREMIA SNOMED Co de(s): 80211649156626809 (2) Urinary tract infection Current Visit: No Status: Acute Code(s): N39.0 - URINARY TRACT INFECTION, SITE NOT SPECIFIED SNOMED Code(s): 88613439 Plan: 1-cefepime 1 g daily while waiting for repeat urine culture been finalized 2-Zyvox 60 mg p.o. twice daily 3-IV fluids We will follow on clinical condition and cultures to further adjust medication if needed Thank you for this consultation we will follow the patient along with you
[2019-10-27] MEDS: LINEZOLID 600 MG TAB PO SCH (23:12)
[2019-10-27] MEDS: CEFEPIME 1 GM in SODIUM CHLORIDE 0.9% 50 ML IVPB SCH (23:13)
[2019-10-28 07:03] LABS: Glucose,Whole Blood 90 mg/dL (75-99)
[2019-10-28 07:21] LABS: Basophils % (A) 1 %; Eosinophils # (A) 0.1 k/uL (0-0.7); Eosinophils % (A) 2 %; HCT 23.4 % (39.0-53.0); HGB 7.3 gm/dL (13.0-17.5); Hypochromasia Slight; Lymphocytes # (A) 1.6 k/uL (1.0-4.8); Lymphocytes % (A) 27 %; MCH 29.1 pg (25.0-35.0); MCHC 31.2 g/dL (31.0-37.0); MCV 93.2 fL (80.0-100.0); Mean Platelet Volume 8.5; Monocytes # (A) 0.2 k/uL (0-1.0); Monocytes % (A) 4 %; Neutrophils # (A) 3.9 k/uL (1.3-7.7); Neutrophils % (A) 65 %; Platelet Count 193 k/uL (150-450); RBC 2.52 m/uL (4.30-5.90); RDW 15.8 % (11.5-15.5); WBC 6.1 k/uL (3.8-10.6)
[2019-10-28 07:45] LABS: Calcium 7.9 mg/dL (8.4-10.2); Potassium 5.3 mmol/L (3.5-5.1)
[2019-10-28] MEDS: CEFEPIME 1 GM in SODIUM CHLORIDE 0.9% 50 ML IVPB SCH (08:57)
[2019-10-28] MEDS ORDERED: APIXABAN 5 MG TAB PO SCH (09:00)
[2019-10-28] MEDS ORDERED: amLODIPine 5 MG TAB PO SCH (09:00)
[2019-10-28] MEDS: LINEZOLID 600 MG TAB PO SCH ×2 (09:01→21:54)
[2019-10-28] MEDS: CARBIDOPA-LEVODOPA 25-100 MG 1 EACH TAB PO SCH ×3 (09:01→20:30)
[2019-10-28] MEDS: MEGESTROL 400 MG/10 ML CUP PO SCH (09:01)
[2019-10-28] MEDS: METOPROLOL TARTRATE 25 MG TAB PO SCH ×2 (09:01→20:30)
[2019-10-28] MEDS ORDERED: DARBEPOETIN ALFA 60 MCG/0.3 ML SYRINGE SQ SCH (11:45)
[2019-10-28 12:09] LABS: Glucose,Whole Blood 104 mg/dL (75-99)
--- NOTE | 2019-10-28 12:29 | CONS ---
CONSULTATION REASON FOR CONSULT: Renal failure. HISTORY OF PRESENT ILLNESS: Patient is a 79-year-old male who has had a prolonged stay in September of 2019 with MRSA bacteremia and urinary tract infections. He was sent from [facility] yesterday with concern for hypotension and hypovolemia. His serum creatinine was 3.95 yesterday it is down to 3.67 on his previous admission. He had a his serum creatinine had peaked at 4.8 on 10/13/2019; however, it was staying down to 2.2 and 2.5 mg/dL as of 10/19/2019. Currently, patient is incontinent. His blood pressure is on the lower side. He did have a systolic of 90/55 initially. Blood pressure medications are on hold. The patient is also maintained on IV fluids. PAST MEDICAL HISTORY: Chronic kidney disease stage III., baseline about 1.3 as of August of 2019 secondary to nephrosclerosis with recent acute kidney injury in October. Patient also has history of COPD, type 2 diabetes, hypertension, atrial flutter, recent MRSA bacteremia, history of bladder cancer, history of multiple urinary tract infections, diverticulitis, Parkinson disease, pneumonia, hypothyroidism. PAST SURGICAL HISTORY: Adenoidectomy, cholecystectomy, tonsillectomy, surgery for bladder tumor, SAL, cardioversion, colonoscopy, cystoscopy. SOCIAL HISTORY: Patient is a former smoker. No history of drug abuse or alcohol abuse. MEDICATIONS: Medications prior to admission included Synthroid, Sinemet, Lasix Lopressor, Tylenol, Zyloprim, Eliquis, Dulcolax, insulin, Zyvox, Norvasc. ALLERGIES: Include ASPIRIN and NSAIDs, both of which cause swelling. REVIEW OF SYSTEMS: As per HPI. Other systems negative. PHYSICAL EXAMINATION: On examination, patient is comfortable, awake, alert, oriented x3, not in any acute distress. Blood pressure is 113/62, heart rate 69 per minute, he is afebrile examination of the heart S1, S2. Examination of the lungs, bilateral breath sounds are heard. Abdomen is soft, non-tender. Examination of the lower extremities shows no significant edema. [employer] exam grossly intact. LABS: Show sodium 144, potassium 5.3, chloride 113, CO2 is 20, BUN 44, creatinine 3.67 assessment and hemoglobin 7.3 assessment acute kidney injury secondary to hypotension hypoperfusion. Rule out urine retention. Serum creatinine slightly better than yesterday. I will hold off on the Norvasc and continue with gentle IV hydration. Repeat labs in a.m. Continue to avoid nephrotoxic agents. ASSESSMENT: 1. Mild hyperkalemia associated with worsening renal failure. Expect improvement with improving renal function. Blood sugars are not significantly elevated and there is no active gastrointestinal bleed noted at this time. 2. Anemia with no active bleeding noted. Maintain patient on Aranesp. Check iron studies as well. 3. History of MRSA bacteremia. associated with infected clot in the left atrium during hospitalization in September. Currently maintained on Zyvox. 4. Atrial fibrillation maintained on Eliquis. 5. History of Parkinson disease, currently on Sinemet. 6. GOSIA from last admission, ATN from sepsis, cr had peaked at 4.8, came down to 2.2 and now back up from volume depletion and low BP. PLAN: Continue gentle IV hydration. DC Norvasc. Repeat labs in a.m. Check postvoid residual. Rule out urine retention. Add Aranesp and check iron studies. Thank you for this consultation. We will continue to follow the patient with you during his hospitalization. MMODL / IJN: [id number] / MTDD
[2019-10-28] MEDS: ACETAMINOPHEN TAB 325 MG TAB PO PRN (13:07)
[2019-10-28] MEDS ORDERED: ACETAMINOPHEN TAB 325 MG TAB PO PRN (13:34)
[2019-10-28] MEDS ORDERED: ALBUTEROL NEBULIZED 2.5 MG/3 ML INHALATION PRN (13:34)
[2019-10-28 13:58] LABS: Amorphous Sediment,Urine Rare /hpf; Appearance,Urine Cloudy (Clear); Bacteria,Urine Rare /hpf; Bilirubin,Urine Negative (Negative); Blood,Urine Small (Negative); Budding Yeast,Urine Occasional /hpf; Color,Urine Yellow; Glucose,Urine (UA) Negative (Negative); Ketones,Urine Negative (Negative); Leukocyte Esterase,Urine Large (Negative); Nitrite,Urine Negative (Negative); PH, Urine 5.5 (5.0-8.0); Protein,Urine 1+ (Negative); RBC,Urine 26 /hpf (0-5); Specific Gravity,Urine 1.013 (1.001-1.035); Squamous Epithelial Cell,Urine <1 /hpf (0-4); Urobilinogen,Urine <2.0 mg/dL (<2.0); WBC,Urine >182 /hpf (0-5)
--- NOTE | 2019-10-28 14:22 | P.HPIM ---
History of Present Illness 79-year-old pleasant male was at the subacute rehab was sent in to [place] ER because of his decreased functionality generalized weakness which has been getting worse and possible confusion. Patient was not confused when I evaluated patient is at his baseline alert oriented 2-3 able to provide me did answer is better patient is not aware of any confusion. is unable to provide me much history. Patient was believed to have urinary tract infection was subsequently transferred here for further management of UTI considering his previous lengthy hospitalization course here. Patient is presently on Zyvox and Cipro for his endocarditis with MRSA and pseudomonal UTI respectively. Patient was evaluated by infectious disease urine is bit abnormal but patient doesn't have any UTI symptoms there is no evidence of urinary tract infection yet patient doesn't have any fever but doesn't have any leukocytosis. Patient is anemic which is chronic is a hemoglobin at the time of discharge is 8.7 now around 7.4 this is secondary to multiple blood draws. There was a concern about GI bleed although patient doesn't have any dark stools or blood in the stools or hematemesis or hematochezia. Review of Systems REVIEW OF SYSTEMS: CONSTITUTIONAL: As mentioned in HPI HEENT: No recent visual problems or hearing problems. Denied any sore throat. CARDIOVASCULAR: No chest pain, orthopnea, PND, no palpitations, no syncope. PULMONARY: No shortness of breath, no cough, no hemoptysis. GASTROINTESTINAL: No diarrhea, no nausea, no vomiting, no abdominal pain. NEUROLOGICAL: No headaches, no weakness, no numbness. HEMATOLOGICAL: Denies any bleeding or petechiae. GENITOURINARY: Denies any burning micturition, frequency, or urgency. MUSCULOSKELETAL/RHEUMATOLOGICAL: Denies any joint pain, swelling, or any muscle pain. ENDOCRINE: Denies any polyuria or polydipsia. The rest of the 14-point review of systems is negative. Past Medical History Past Medical History: Atrial Flutter, Cancer, Heart Failure, COPD, Diabetes Mellitus, Hypertension, Musculoskeletal Disorder, Neurologic Disorder, Renal Disease, Thyroid Disorder Additional Past Medical History / Comment(s): PT ADMITTED ON 10/27/18 WITH BACTEREMIA D/T KLEBSIELLA PNE/TRANSAMINITIS/BILIARY SLUDGE PER US. OTHERHX: HX A-FLUTTER/TACHYCARDIA- TX W/ SAL/CARDIOVERSION, HAS BLADDER CA WITH SURGERY AND BLADDER INSTILLATION OF MED FOR BLADDER CANCER, IDC WITH UTI-REMOVED, IDDM TYPE II, BILATERAL CATARACTS, ABD HERNIA. PARKINSONS, DIVERTICULITIS, EDEMA FEET/LEGS, DDD lower spine, HYPOTHYROID, PNEUMONIA WITH SEPSIS, acute renal failure d/t acute tubular necrosis d/t sepsis, possible CKD. Last Myocardial Infarction Date:: UNK History of Any Multi-Drug Resistant Organisms: MRSA Date of last positivie culture/infection: 09/13/19 MDRO Source:: Blood Past Surgical History: Adenoidectomy, Bladder Surgery, Cholecystectomy, Tonsillectomy Additional Past Surgical History / Comment(s): 2013 CARDIOVERSION, SAL. BLADDER TUMOR REMOVED,cystoscopy with bladder CA TREATMENTS, colonoscopy Past Anesthesia/Blood Transfusion Reactions: Previous Problems w/ Anesthesia Additional Past Anesthesia/Blood Transfusion Reaction / Comment(s): HX CLAUSTROPHOBIA Smoking Status: Former smoker - Past Family History Father Family Medical History: Cancer Additional Family Medical History / Comment(s): Bone cancer. Mother Family Medical History: Coronary Artery Disease (CAD) Additional Family Medical History / Comment(s): Macular degeneration Sister(s) Family Medical History: Cancer Additional Family Medical History / Comment(s): breast CA Medications and Allergies Home Medications Medication Instructions Recorded Confirmed Type Carbidopa-Levodopa 25-100 mg 2 tab PO TID 07/08/16 10/27/19 History [Sinemet 25-100 mg] Levothyroxine Sodium [Synthroid] 100 mcg PO HS 05/27/19 10/27/19 History Albuterol Inhaler [Ventolin Hfa 2 puff INHALATION RT-Q6H PRN 06/16/19 10/27/19 History Inhaler] Metoprolol Tartrate [Lopressor] 25 mg PO BID 06/16/19 10/27/19 History Acetaminophen Tab [Tylenol] 650 mg PO Q6H PRN 08/31/19 10/27/19 History Allopurinol [Zyloprim] 100 mg PO DAILY 08/31/19 10/27/19 History Apixaban [Eliquis] 5 mg PO BID 10/13/19 10/27/19 History Insulin Detemir [Levemir Flextouch] 18 units SQ HS 10/13/19 10/27/19 History Linezolid [Zyvox] 600 mg PO BID 10/13/19 10/27/19 History amLODIPine [Norvasc] 5 mg PO DAILY 10/13/19 10/27/19 History Ciprofloxacin HCl [Cipro] 500 mg PO BID #0 tab 10/20/19 10/27/19 Rx Megestrol [Megace] 400 mg PO DAILY cup 10/20/19 10/27/19 Rx Insulin Lispro [humaLOG Kwikpen] 5 unit SQ HS 10/27/19 10/27/19 History L.acidoph,Paracasei, B.lactis 1 cap PO BID 10/27/19 10/27/19 History [Probiotic] Liquical Liquid 30 ml PO BID 10/27/19 10/27/19 History Allergies Allergy/AdvReac Type Severity Reaction Status Date / Time aspirin Allergy Swelling Verified 10/27/19 20:25 NSAIDS (Non-Steroidal Allergy Swelling Verified 10/27/19 20:25 Anti-Inflamma Physical Exam Vitals: Vital Signs Temp Pulse Resp BP BP Pulse Ox 10/28/19 13:33 98 10/28/19 13:28 98.7 F 68 113/51 10/28/19 07:48 98.7 F 69 16 113/62 96 10/28/19 03:48 15 10/28/19 01:21 99.0 F 74 15 110/60 99 10/27/19 23:00 15 10/27/19 20:45 98.2 F 92 14 90/55 94 L 10/27/19 19:37 74 15 Intake and Output 10/27/19 10/28/19 10/28/19 22:59 06:59 14:59 Other: Voiding Method Urinal Urinal Urinal Diaper Diaper Diaper Incontinent Incontinent Incontinent Weight 84 kg PHYSICAL EXAMINATION: GENERAL: The patient is alert and oriented x3, not in any acute distress. Well developed, well nourished. 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 EOMI. No scleral icterus. No conjunctival pallor. Normocephalic, atraumatic. No pharyngeal erythema. No thyromegaly. CARDIOVASCULAR: S1 and S2 present. No murmurs, rubs, or gallops. PULMONARY: Chest is clear to auscultation, no wheezing or crackles. ABDOMEN: Soft, nontender, nondistended, normoactive bowel sounds. No palpable organomegaly. MUSCULOSKELETAL: No joint swelling or deformity. EXTREMITIES: No cyanosis, clubbing, or pedal edema. NEUROLOGICAL: Gross neurological examination did not reveal any focal deficits. SKIN: No rashes. Results CBC & Chem 7: 10/28/19 06:31 10/28/19 06:31 Labs: Abnormal Lab Results - Last 24 Hours (Table) 10/27/19 10/27/19 10/28/19 Range/Units 18:39 18:39 06:31 RBC 2.55 L 2.52 L (4.30-5.90) m/uL Hgb 7.7 L 7.3 L (13.0-17.5) gm/dL Hct 24.1 L 23.4 L (39.0-53.0) % RDW 15.8 H (11.5-15.5) % Potassium 5.4 H (3.5-5.1) mmol/L Chloride 113 H (98-107) mmol/L Carbon Dioxide 21 L (22-30) mmol/L BUN 45 H (9-20) mg/dL Creatinine 3.95 H (0.66-1.25) mg/dL Glucose 102 H (74-99) mg/dL POC Glucose (mg/dL) (75-99) mg/dL Calcium 7.8 L (8.4-10.2) mg/dL Urine Protein (Negative) Urine Blood (Negative) Ur Leukocyte Esterase (Negative) Urine RBC (0-5) /hpf Urine WBC (0-5) /hpf Urine WBC Clumps (None) /hpf Amorphous Sediment (None) /hpf Urine Bacteria (None) /hpf Urine Yeast (Budding) (None) /hpf 10/28/19 10/28/19 10/28/19 Range/Units 06:31 11:57 Unknown RBC (4.30-5.90) m/uL Hgb (13.0-17.5) gm/dL Hct (39.0-53.0) % RDW (11.5-15.5) % Potassium 5.3 H (3.5-5.1) mmol/L Chloride 113 H (98-107) mmol/L Carbon Dioxide 20 L (22-30) mmol/L BUN 44 H (9-20) mg/dL Creatinine 3.67 H (0.66-1.25) mg/dL Glucose (74-99) mg/dL POC Glucose (mg/dL) 104 H (75-99) mg/dL Calcium 7.9 L (8.4-10.2) mg/dL Urine Protein 1+ H (Negative) Urine Blood Small H (Negative) Ur Leukocyte Esterase Large H (Negative) Urine RBC 26 H (0-5) /hpf Urine WBC >182 H (0-5) /hpf Urine WBC Clumps Occasional H (None) /hpf Amorphous Sediment Rare H (None) /hpf Urine Bacteria Rare H (None) /hpf Urine Yeast (Budding) Occasional H (None) /hpf Thrombosis Risk Factor Assmnt - Choose All That Apply Each Factor Represents 1 point: Abnormal pulmonary function (COPD), Obesity (BMI >25) Each Risk Factor Represents 3 Points: Age 75 years or older, History of DVT/PE Thrombosis Risk Factor Assessment Total Risk Factor Score: 8 Thrombosis Risk Factor Assessment Level: High Risk Assessment and Plan Plan: -Confusion possible encephalopathy appears to be metabolic does not appear to have another urinary tract infection although patient will be continued on cefepime until we get the urine cultures blood cultures will be obtained as well considering his significant history persistent bacteremia during his last hospitalization secondary to endocarditis and patient will be continued on Zyvox possibility of sepsis contributing to his encephalopathy is low -Acute renal failure prerenal azotemia continue with IV fluids patient does appear to have chronic diastolic dysfunction because of which will be cautious with IV fluids were continued 75 mL per hour. -Anemia appears to be chronic probably anemia of chronic disease no evidence of GI bleed at this time. Patient will be monitored and will be transfused if needed. -Recent history of endocarditis with MRSA and UTI with Pseudomonas continue with the above-mentioned antibiotics -Atrial fibrillation: Patient is presently rate controlled on anti-correlation which will be continued -Hypothyroidism -Parkinson's with parkinsonian tremor -Type 2 diabetes mellitus For above-mentioned chronic medical problems patient will be resumed on appropriate home medications
[2019-10-28] MEDS: SODIUM CHLORIDE 0.9% 1,000 ML IV SCH (16:24)
[2019-10-28 17:26] LABS: Glucose,Whole Blood 112 mg/dL (75-99)
--- NOTE | 2019-10-28 17:29 | PN ---
PROGRESS NOTE DATE OF SERVICE: 10/28/2019 REASON FOR FOLLOWUP: 1. Urinary tract infection. 2. History of MRSA bacteremia. INTERVAL HISTORY: The patient is currently afebrile. The patient is currently breathing comfortably. He did let them place an IV and he is getting fluids and IV antibiotics. Patient denies having any chest pain. No cough. No nausea, no vomiting. No abdominal pain or diarrhea. PHYSICAL EXAMINATION: Blood pressure is 113/51 with pulse of 68, temperature 98.7. He is 98% on room air. General description is an elderly male lying in bed in no distress. RESPIRATORY SYSTEM: Unlabored breathing with decreased breath sounds at the base. No wheeze. HEART: S1, S2. Regular rate and rhythm. ABDOMEN: Soft. No tenderness. LABS: Hemoglobin 7.3, white count 6.1, BUN of 44, creatinine 3.67. Urine is positive. Culture is pending. DIAGNOSTIC IMPRESSION AND PLAN: 1. Patient admitted to hospital with weakness, likely multifactorial in this patient who did have a component of dehydration with elevated BUN and creatinine and UTI. Patient is currently covered with cefepime. That will be continued while waiting for the cultures to be finalized, and monitor his clinical course closely. 2. Patient with a history of methicillin-resistant Staphylococcus aeruginosa bacteremia, currently covered with Zyvox; to continue. Family at the bedside. Questions were answered. MMODL / IJN: [id number] /
[2019-10-28] MEDS: INSULIN ASPART (NovoLOG) 100 UNIT/ML VIAL SQ SCH ×3 (17:56→20:27)
[2019-10-28 19:33] LABS: Hemoglobin A1C 7.7 % (4.0-6.0)
[2019-10-28 20:10] LABS: Glucose,Whole Blood 128 mg/dL (75-99)
[2019-10-28] MEDS: INSULIN DETEMIR (LEVEMIR) 100 UNIT/ML SYR SQ SCH (20:27)
[2019-10-28] MEDS: APIXABAN 2.5 MG TABLET PO SCH (20:30)
[2019-10-28] MEDS: LACTOBACILLUS ACIDOPH & BULGAR 1 EACH PACKET PO SCH (20:30)
[2019-10-28] MEDS: LEVOTHYROXINE 100 MCG TAB PO SCH (20:30)
[2019-10-28 20:35] LABS: % Iron Saturation 71.59 (15.00-50.00)
[2019-10-28] MEDS ORDERED: LINEZOLID 600 MG TAB PO SCH (21:00)
[2019-10-29] MEDS: SODIUM CHLORIDE 0.9% 1,000 ML IV SCH ×2 (03:26→16:08)
[2019-10-29 06:29] LABS: Glucose,Whole Blood 101 mg/dL (75-99)
[2019-10-29 07:02] LABS: HCT 24.3 % (39.0-53.0); HGB 7.7 gm/dL (13.0-17.5); Hypochromasia Slight; MCH 29.5 pg (25.0-35.0); MCHC 31.7 g/dL (31.0-37.0); MCV 93.1 fL (80.0-100.0); Mean Platelet Volume 8.9; Platelet Count 197 k/uL (150-450); RBC 2.61 m/uL (4.30-5.90); RDW 15.5 % (11.5-15.5); WBC 7.1 k/uL (3.8-10.6)
[2019-10-29 07:07] LABS: Glucose,Whole Blood 100 mg/dL (75-99)
[2019-10-29 07:09] LABS: Calcium 8.2 mg/dL (8.4-10.2); Potassium 5.3 mmol/L (3.5-5.1)
[2019-10-29] MEDS: INSULIN ASPART (NovoLOG) 100 UNIT/ML VIAL SQ SCH ×5 (08:17→20:12)
[2019-10-29] MEDS: CEFEPIME 1 GM in SODIUM CHLORIDE 0.9% 50 ML IVPB SCH (08:18)
[2019-10-29] MEDS: MEGESTROL 400 MG/10 ML CUP PO SCH (08:20)
[2019-10-29] MEDS: LINEZOLID 600 MG TAB PO SCH ×2 (08:21→20:16)
[2019-10-29] MEDS: LACTOBACILLUS ACIDOPH & BULGAR 1 EACH PACKET PO SCH ×2 (08:21→20:16)
[2019-10-29] MEDS: METOPROLOL TARTRATE 25 MG TAB PO SCH ×2 (08:22→21:10)
[2019-10-29] MEDS: CARBIDOPA-LEVODOPA 25-100 MG 1 EACH TAB PO SCH ×3 (08:22→21:10)
[2019-10-29] MEDS: APIXABAN 2.5 MG TABLET PO SCH ×2 (08:22→20:16)
[2019-10-29] MEDS: ACETAMINOPHEN TAB 325 MG TAB PO PRN (08:54)
[2019-10-29 11:48] LABS: Glucose,Whole Blood 146 mg/dL (75-99)
[2019-10-29 13:51] LABS: Calcium 7.8 mg/dL (8.4-10.2); Potassium 5.3 mmol/L (3.5-5.1)
--- NOTE | 2019-10-29 14:40 | P.NPCON ---
History of Present Illness - Reason for Consult Consult date: 10/29/19 acute renal failure, chronic renal failure - Chief Complaint Worsening creatinine and mental status changes - History of Present Illness This is a 79-year-old male seen in consultation because of acute kidney injury and chronic kidney disease He was admitted in September 2019 last month with MRSA endocarditis bacteremia. His creatinine went up from 1.2 dated 09/10/2019. At 4.8 on 10/13/2019 and then went down to 2.74. He was in a rehab facility but then was sent to [facility] because of hypotension and supposedly creatinine was 3.95 patient is known with COPD, diabetes, atrial flutter, history of bladder cancer, Parkinson's diverticulitis. Past Medical History Past Medical History: Atrial Flutter, Cancer, Heart Failure, COPD, Diabetes Mellitus, Hypertension, Musculoskeletal Disorder, Neurologic Disorder, Renal Disease, Thyroid Disorder Additional Past Medical History / Comment(s): PT ADMITTED ON 10/27/18 WITH BACTEREMIA D/T KLEBSIELLA PNE/TRANSAMINITIS/BILIARY SLUDGE PER US. OTHERHX: HX A-FLUTTER/TACHYCARDIA- TX W/ SAL/CARDIOVERSION, HAS BLADDER CA WITH SURGERY AND BLADDER INSTILLATION OF MED FOR BLADDER CANCER, IDC WITH UTI-REMOVED, IDDM TYPE II, BILATERAL CATARACTS, ABD HERNIA. PARKINSONS, DIVERTICULITIS, EDEMA FEET/LEGS, DDD lower spine, HYPOTHYROID, PNEUMONIA WITH SEPSIS, acute renal fail ure d/t acute tubular necrosis d/t sepsis, possible CKD. Last Myocardial Infarction Date:: UNK History of Any Multi-Drug Resistant Organisms: MRSA Date of last positivie culture/infection: 09/13/19 MDRO Source:: Blood Past Surgical History: Adenoidectomy, Bladder Surgery, Cholecystectomy, Tonsillectomy Additional Past Surgical History / Comment(s): 2013 CARDIOVERSION, SAL. BLADDER TUMOR REMOVED,cystoscopy with bladder CA TREATMENTS, colonoscopy Past Anesthesia/Blood Transfusion Reactions: Previous Problems w/ Anesthesia Additional Past Anesthesia/Blood Transfusion Reaction / Comment(s): HX ROSELIA STROPHOBIA Smoking Status: Former smoker - Past Family History Father Family Medical History: Cancer Additional Family Medical History / Comment(s): Bone cancer. Mother Family Medical History: Coronary Artery Disease (CAD) Additional Family Medical History / Comment(s): Macular degeneration Sister(s) Family Medical History: Cancer Additional Family Medical History / Comment(s): breast CA Medications and Allergies Home Medications Medication Instructions Recorded Confirmed Type Carbidopa-Levodopa 25-100 mg 2 tab PO TID 07/08/16 10/27/19 History [Sinemet 25-100 mg] Levothyroxine Sodium [Synthroid] 100 mcg PO HS 05/27/19 10/27/19 History Albuterol Inhaler [Ventolin Hfa 2 puff INHALATION RT-Q6H PRN 06/16/19 10/27/19 History Inhaler] Metoprolol Tartrate [Lopressor] 25 mg PO BID 06/16/19 10/27/19 History Acetaminophen Tab [Tylenol] 650 mg PO Q6H PRN 08/31/19 10/27/19 History Allopurinol [Zyloprim] 100 mg PO DAILY 08/31/19 10/27/19 History Apixaban [Eliquis] 5 mg PO BID 10/13/19 10/27/19 History Insulin Detemir [Levemir Flextouch] 18 units SQ HS 10/13/19 10/27/19 History Linezolid [Zyvox] 600 mg PO BID 10/13/19 10/27/19 History amLODIPine [Norvasc] 5 mg PO DAILY 10/13/19 10/27/19 History Ciprofloxacin HCl [Cipro] 500 mg PO BID #0 tab 10/20/19 10/27/19 Rx Megestrol [Megace] 400 mg PO DAILY cup 10/20/19 10/27/19 Rx Insulin Lispro [humaLOG Kwikpen] 5 unit SQ HS 10/27/19 10/27/19 History L.acidoph,Paracasei, B.lactis 1 cap PO BID 10/27/19 10/27/19 History [Probiotic] Liquical Liquid 30 ml PO BID 10/27/19 10/27/19 History Allergies Allergy/AdvReac Type Severity Reaction Status Date / Time aspirin Allergy Swelling Verified 10/27/19 20:25 NSAIDS (Non-Steroidal Allergy Swelling Verified 10/27/19 20:25 Anti-Inflamma Physical Exam Vitals: Vital Signs Temp Pulse Resp BP Pulse Ox 10/29/19 08:00 71 12 10/29/19 07:22 98.7 F 71 12 127/67 95 10/29/19 03:09 98.4 F 65 16 117/66 99 10/28/19 20:19 98.7 F 65 14 104/61 98 10/28/19 15:00 98.7 F 60 16 106/62 93 L Intake and Output 10/28/19 10/29/19 10/29/19 22:59 06:59 14:59 Intake Total 20 375 Output Total 200 Balance 20 175 Intake: Intake, IV Titration 375 Amount Sodium Chloride 0.9% 1, 375 000 ml @ 75 mls/hr IV . [id number] [facility] Rx#:[id number] Oral 20 Output: Urine 200 Other: Voiding Method Urinal Urinal Diaper Diaper Incontinent Incontinent # Voids 2 2 # Bowel Movements 1 On examination is awake alert oriented has tremors of Parkinson's. HEENT exam no JVP neck is supple no facial asymmetry Lungs are clear to auscultation fair air entry bilaterally Heart sounds are unremarkable for any murmur rub gallop Abdomen soft nontender no organomegaly status masses Extremity exam was trace edema Neurologically awake alert oriented but profoundly weak with Parkinson's tremor Results - Lab Results Most recent lab results Calcium 7.8 mg/dL (8.4-10.2) L 10/29/19 13:15 10/29/19 06:07 10/29/19 13:15 Assessment and Plan Assessment: 1. Acute kidney injury secondary to low blood pressure, reduce intake and prerenal. Creatinine which peaked at 4.8 dated 10/13/2019, had come down to 2.23 as of 10/18/2019 and then went up to 3.95 as of 10/27/2019. This has now responded with hydration with creatinine coming to 2.74. There is no evidence of any obstructive nephropathy clinically. 2. 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 Urinalysis on 10/28/2019 had 1+ protein small blood greater than 182 WBCs and 26 RBCs and is growing pseudomonas aeruginosa on 10/14/2021 weeks ago but current urine culture is unremarkable so far 3. Anemia of chronic kidney disease and acute illness with hemoglobin 7.7. 4. Mild degree of hyperkalemia potassium is 5.3 5. Mild degree of acidosis bicarb is 21 Recommendation 1. Continue IV fluids for another 24 hours. 2. Watch labs. 3. Continue darbepoetin once a week 4. Check iron saturation,
--- NOTE | 2019-10-29 15:31 | P.PN ---
Subjective 79-year-old pleasant male was at the subacute rehab was sent in to [place] [facility] because of his decreased functionality generalized weakness which has been getting worse and possible confusion. Patient was not confused when I evaluated patient is at his baseline alert oriented 2-3 able to provide me did answer is better patient is not aware of any confusion. is unable to provide me much history. Patient was believed to have urinary tract infection was subsequently transferred here for further management of UTI considering his previous lengthy hospitalization course here. Patient is presently on Zyvox and Cipro for his endocarditis with MRSA and pseudomonal UTI respectively. Patient was evaluated by infectious disease urine is bit abnormal but patient doesn't have any UTI symptoms there is no evidence of urinary tract infection yet patient doesn't have any fever but doesn't have any leukocytosis. Patient is anemic which is ch ronic is a hemoglobin at the time of discharge is 8.7 now around 7.4 this is secondary to multiple blood draws. There was a concern about GI bleed although patient doesn't have any dark stools or blood in the stools or hematemesis or hematochezia. 10/29/2019 Patient is feeling better patient's serum creatinine continue to improve. Constitutional: Denied any fatigue denied any fever. Cardio vascular: denied any chest pain, palpitations Gastrointestinal denied any nausea vomiting Pulmonary: Denied any shortness of breath cough Neurologic denied any new focal deficits All inpatient medications were reviewed and appropriate changes in these medications as dictated in the interval history and assessment and plan. Objective - Vital Signs Vital signs: Vital Signs Temp 98.7 F 10/29/19 07:22 Pulse 71 10/29/19 08:00 Resp 12 10/29/19 08:00 BP 127/67 10/29/19 07:22 Pulse Ox 95 10/29/19 07:22 Intake & Output 10/28/19 10/29/19 10/29/19 18:59 06:59 18:59 Intake Total 600 20 375 Output Total 200 Balance 600 20 175 Intake: IV 600 Sodium Chloride 0.9% 1, 600 000 ml @ 75 mls/hr IV . [id number] [facility] Rx#:[id number] Intake, IV Titration 375 Amount Sodium Chloride 0.9% 1, 375 000 ml @ 75 mls/hr IV . [id number] [facility] Rx#:[id number] Oral 20 Output: Urine 200 Other: Voiding Method Urinal Urinal Urinal Diaper Diaper Diaper Incontinent Incontinent Incontinent # Voids 2 2 # Bowel Movements 1 - Exam PHYSICAL EXAMINATION: GENERAL: The patient is alert and oriented x3, not in any acute distress. Well developed, well nourished. 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 EOMI. No scleral icterus. No conjunctival pallor. Normocephalic, atraumatic. No pharyngeal erythema. No thyromegaly. CARDIOVASCULAR: S1 and S2 present. No murmurs, rubs, or gallops. PULMONARY: Chest is clear to auscultation, no wheezing or crackles. ABDOMEN: Soft, nontender, nondistended, normoactive bowel sounds. No palpable organomegaly. MUSCULOSKELETAL: No joint swelling or deformity. EXTREMITIES: No cyanosis, clubbing, or pedal edema. NEUROLOGICAL: Gross neurological examination did not reveal any focal deficits. SKIN: No rashes. - Labs CBC & Chem 7: 10/29/19 06:07 10/29/19 13:15 Labs: Abnormal Lab Results - Last 24 Hours (Table) 10/28/19 10/28/19 10/28/19 Range/Units 06:31 06:31 17:14 RBC (4.30-5.90) m/uL Hgb (13.0-17.5) gm/dL Hct (39.0-53.0) % Potassium (3.5-5.1) mmol/L Chloride (98-107) mmol/L Carbon Dioxide (22-30) mmol/L BUN (9-20) mg/dL Creatinine (0.66-1.25) mg/dL Glucose (74-99) mg/dL POC Glucose (mg/dL) 112 H (75-99) mg/dL Hemoglobin A1c 7.7 H (4.0-6.0) % Calcium (8.4-10.2) mg/dL TIBC 176 L (228-460) ug/dL % Saturation 71.59 H (15.00-50.00) 10/28/19 10/29/19 10/29/19 Range/Units 19:58 06:07 06:07 RBC 2.61 L (4.30-5.90) m/uL Hgb 7.7 L (13.0-17.5) gm/dL Hct 24.3 L (39.0-53.0) % Potassium 5.3 H (3.5-5.1) mmol/L Chloride 113 H (98-107) mmol/L Carbon Dioxide 21 L (22-30) mmol/L BUN 40 H (9-20) mg/dL Creatinine 2.99 H (0.66-1.25) mg/dL Glucose 103 H (74-99) mg/dL POC Glucose (mg/dL) 128 H (75-99) mg/dL Hemoglobin A1c (4.0-6.0) % Calcium 8.2 L (8.4-10.2) mg/dL TIBC (228-460) ug/dL % Saturation (15.00-50.00) 10/29/19 10/29/19 10/29/19 Range/Units 06:18 06:54 11:34 RBC (4.30-5.90) m/uL Hgb (13.0-17.5) gm/dL Hct (39.0-53.0) % Potassium (3.5-5.1) mmol/L Chloride (98-107) mmol/L Carbon Dioxide (22-30) mmol/L BUN (9-20) mg/dL Creatinine (0.66-1.25) mg/dL Glucose (74-99) mg/dL POC Glucose (mg/dL) 101 H 100 H 146 H (75-99) mg/dL Hemoglobin A1c (4.0-6.0) % Calcium (8.4-10.2) mg/dL TIBC (228-460) ug/dL % Saturation (15.00-50.00) 10/29/19 Range/Units 13:15 RBC (4.30-5.90) m/uL Hgb (13.0-17.5) gm/dL Hct (39.0-53.0) % Potassium 5.3 H (3.5-5.1) mmol/L Chloride 113 H (98-107) mmol/L Carbon Dioxide 21 L (22-30) mmol/L BUN 38 H (9-20) mg/dL Creatinine 2.74 H (0.66-1.25) mg/dL Glucose 130 H (74-99) mg/dL POC Glucose (mg/dL) (75-99) mg/dL Hemoglobin A1c (4.0-6.0) % Calcium 7.8 L (8.4-10.2) mg/dL TIBC (228-460) ug/dL % Saturation (15.00-50.00) Microbiology - Last 24 Hours (Table) 10/28/19 Unknown Urine Culture - Preliminary Urine,Voided Assessment and Plan Plan: -Confusion possible encephalopathy appears to be metabolic does not appear to have another urinary tract infection although patient will be continued on cefep joel until we get the urine cultures blood cultures come cultures are so far negative significant history persistent bacteremia during his last hospitalization secondary to endocarditis and patient will be continued on Zyvox possibility of sepsis contributing to his encephalopathy is low -Acute renal failure prerenal azotemia continue with IV fluids patient does appear to have chronic diastolic dysfunction because of which will be cautious with IV fluids were continued 75 mL per hour. Patient's creatinine did improve -Anemia appears to be chronic probably anemia of chronic disease no evidence of GI bleed at this time. Patient will be monitored and will be transfused if needed. -Recent history of endocarditis with MRSA and UTI with Pseudomonas continue with the above-mentioned antibiotics -Atrial fibrillation: Patient is presently rate controlled on anti-coagulation which will be continued -Hypothyroidism -Parkinson's with parkinsonian tremor -Type 2 diabetes mellitus For above-mentioned chronic medical problems patient will be resumed on appropriate home medications
[2019-10-29 17:00] LABS: Glucose,Whole Blood 142 mg/dL (75-99)
[2019-10-29] MEDS: INSULIN DETEMIR (LEVEMIR) 100 UNIT/ML SYR SQ SCH (20:12)
[2019-10-29] MEDS: LEVOTHYROXINE 100 MCG TAB PO SCH (20:16)
[2019-10-29 20:17] LABS: Glucose,Whole Blood 124 mg/dL (75-99)
[2019-10-29 23:12] LABS: % Iron Saturation 67.82 (15.00-50.00)
--- NOTE | 2019-10-29 23:59 | PN ---
PROGRESS NOTE DATE OF SERVICE: 10/29/2019 REASON FOR FOLLOWUP: Urinary tract infection. INTERVAL HISTORY: The patient is currently afebrile. The patient is breathing comfortably. Hemodynamics remain stable. . Unable to provide any history. No vomiting or any diarrhea reported. PHYSICAL EXAMINATION: Blood pressure 127/56, pulse of 69, temperature of 97.9. He is 93% on room air. General description is an elderly male lying in bed in no distress. Respiratory system: Unlabored breathing. Clear to auscultation anteriorly. Heart S1, S2. Regular rate and rhythm. ABDOMEN: Soft. No tenderness. LABS: BUN of 38, creatinine 2.74. Urine culture so far negative. Blood cultures negative as well. DIAGNOSTIC IMPRESSION/PLAN: 1. Patient admitted to hospital with mental status changes, weakness, in this patient who did have evidence of dehydration, acute renal failure and. Urine is currently pending. The patient is currently covered with Cefepime to continue along with IV fluid. 2. The patient with history of MRSA bacteremia, currently covered on Zyvox. Monitor his clinical course closely. MMODL / IJN: [id number] /
--- NOTE | 2019-10-30 04:14 | CT ---
EXAMINATION TYPE: CT brain wo con DATE OF EXAM: 10/30/2019 COMPARISON: 09/19/2019 HISTORY: Patient presents with head pain after fall. CT DLP: 1142.4 mGycm Automated exposure control for dose reduction was used. There is cerebral cortical atrophy. There is no mass effect nor midline shift. There is no sign of in tracranial hemorrhage. The calvarium is intact. IMPRESSION: Cerebral atrophy. No acute intracranial abnormality. No change.
[2019-10-30 07:11] LABS: Glucose,Whole Blood 104 mg/dL (75-99)
[2019-10-30] MEDS: SODIUM CHLORIDE 0.9% 1,000 ML IV SCH ×2 (07:23→20:29)
[2019-10-30] MEDS: INSULIN ASPART (NovoLOG) 100 UNIT/ML VIAL SQ SCH ×5 (07:25→20:18)
[2019-10-30] MEDS: CEFEPIME 1 GM in SODIUM CHLORIDE 0.9% 50 ML IVPB SCH (07:55)
[2019-10-30] MEDS: LACTOBACILLUS ACIDOPH & BULGAR 1 EACH PACKET PO SCH ×2 (07:55→20:23)
[2019-10-30] MEDS: MEGESTROL 400 MG/10 ML CUP PO SCH (07:56)
[2019-10-30] MEDS: CARBIDOPA-LEVODOPA 25-100 MG 1 EACH TAB PO SCH ×3 (07:57→23:13)
[2019-10-30] MEDS: ACETAMINOPHEN TAB 325 MG TAB PO PRN (07:57)
[2019-10-30] MEDS: METOPROLOL TARTRATE 25 MG TAB PO SCH ×2 (07:58→20:25)
[2019-10-30] MEDS: LINEZOLID 600 MG TAB PO SCH ×2 (07:58→20:23)
[2019-10-30] MEDS: APIXABAN 2.5 MG TABLET PO SCH ×2 (07:58→20:23)
[2019-10-30 12:04] LABS: Glucose,Whole Blood 132 mg/dL (75-99)
--- NOTE | 2019-10-30 13:31 | P.PN ---
Subjective Progress Note Date: 10/30/19 Principal diagnosis: This is a 79-year-old male seen in consultation because of acute kidney injury from volume depletion. He was admitted in September 2019 with MRSA bacteremia and endocarditis. At the time his creatinine went up from 1.2 dated 09/10/2019 to 4.8 on 10/13/2019 Subsequently it went down to 2.74. He was in the rehab unit and he was transferred to [facility] with hypotension and his creatinine was up again at 3.95. He is known with atrial flutter history of bladder cancer Parkinson's disease diverticulitis COPD and diabetes This morning he is sleepy but says he is feeling fine. He denies any complaints Objective - Vital Signs Vital signs: Vital Signs Temp 98.4 F 10/30/19 07:38 Pulse 69 10/30/19 07:38 Resp 12 10/30/19 07:38 BP 102/39 10/30/19 07:38 Pulse Ox 95 10/30/19 07:38 Intake & Output 10/29/19 10/30/19 10/30/19 18:59 06:59 18:59 Intake Total 375 300 Output Total 200 200 Balance 175 -200 300 Intake: Intake, IV Titration 375 300 Amount Cefepime 1 gm In Sodium 300 Chloride 0.9% 50 ml @ 100 mls/hr IVPB DAILY [facility] Rx #:[id number] Sodium Chloride 0.9% 1, 375 000 ml @ 75 mls/hr IV . [id number] [facility] Rx#:[id number] Output: Urine 200 200 Other: Voiding Method Urinal Urinal Urinal Diaper Diaper Diaper Incontinent Incontinent Incontinent # Voids 2 1 2 # Bowel Movements 1 On examination is sleepy but arousable and follows commands HEENT exam no JVP neck is supple no facial asymmetry Lungs clear to auscultation good air entry bilaterally Heart sounds unremarkable for any murmur rub gallop Abdomen soft nontender no masses felt Extremity exam was trace edema Neurologically sleepy but arousable and oriented - Labs CBC & Chem 7: 10/29/19 06:07 10/29/19 13:15 Labs: Abnormal Lab Results - Last 24 Hours (Table) 10/29/19 10/29/19 10/29/19 Range/Units 06:07 13:15 16:43 Potassium 5.3 H (3.5-5.1) mmol/L Chloride 113 H (98-107) mmol/L Carbon Dioxide 21 L (22-30) mmol/L BUN 38 H (9-20) mg/dL Creatinine 2.74 H (0.66-1.25) mg/dL Glucose 130 H (74-99) mg/dL POC Glucose (mg/dL) 142 H (75-99) mg/dL Calcium 7.8 L (8.4-10.2) mg/dL TIBC 174 L (228-460) ug/dL % Saturation 67.82 H (15.00-50.00) 10/29/19 10/30/19 10/30/19 Range/Units 20:06 06:53 11:45 Potassium (3.5-5.1) mmol/L Chloride (98-107) mmol/L Carbon Dioxide (22-30) mmol/L BUN (9-20) mg/dL Creatinine (0.66-1.25) mg/dL Glucose (74-99) mg/dL POC Glucose (mg/dL) 124 H 104 H 132 H (75-99) mg/dL Calcium (8.4-10.2) mg/dL TIBC (228-460) ug/dL % Saturation (15.00-50.00) Microbiology - Last 24 Hours (Table) 10/28/19 Unknown Urine Culture - Final Urine,Voided 10/28/19 13:34 Blood Culture - Preliminary Blood No Growth after 24 hours Assessment and Plan Assessment: 1. Acute kidney injury secondary to low blood pressure, reduce intake and prerenal. Creatinine which peaked at 4.8 dated 10/13/2019, had come down to 2.23 as of 10/18/2019 and then went up to 3.95 as of 10/27/2019. This has now responded with hydration with creatinine coming to 2.74. There is no evidence of any obstructive nephropathy clinically. Today's labs are pending 2. 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 Urinalysis on 10/28/2019 had 1+ protein small blood greater than 182 WBCs and 26 RBCs and is growing pseudomonas aeruginosa on 10/14/2021 weeks ago but current urine culture is unremarkable so far 3. Anemia of chronic kidney disease and acute illness with hemoglobin 7.7. 4. Mild degree of hyperkalemia potassium is 5.3 5. Mild degree of acidosis bicarb is 21 Recommendation 1. Continue IV fluids for another 24 hours. 2. Watch labs. 3. Continue darbepoetin once a week 4. Check iron saturation,
--- NOTE | 2019-10-30 14:00 | P.PN ---
Subjective 79-year-old pleasant male was at the subacute rehab was sent in to [place] [facility] because of his decreased functionality generalized weakness which has been getting worse and possible confusion. Patient was not confused when I evaluated patient is at his baseline alert oriented 2-3 able to provide me did answer is better patient is not aware of any confusion. is unable to provide me much history. Patient was believed to have urinary tract infection was subsequently transferred here for further management of UTI considering his previous lengthy hospitalization course here. Patient is presently on Zyvox and Cipro for his endocarditis with MRSA and pseudomonal UTI respectively. Patient was evaluated by infectious disease urine is bit abnormal but patient doesn't have any UTI symptoms there is no evidence of urinary tract infection yet patient doesn't have any fever but doesn't have any leukocytosis. Patient is anemic which is ch ronic is a hemoglobin at the time of discharge is 8.7 now around 7.4 this is secondary to multiple blood draws. There was a concern about GI bleed although patient doesn't have any dark stools or blood in the stools or hematemesis or hematochezia. 10/29/2019 Patient is feeling better patient's serum creatinine continue to improve. 10/30/2019 Patient had a fall. Hit to his head, computed tomography scan of the head did not show any intracranial bleed. Constitutional: Denied any fatigue denied any fever. Cardio vascular: denied any chest pain, palpitations Gastrointestinal denied any nausea vomiting Pulmonary: Denied any shortness of breath cough Neurologic denied any new focal deficits All inpatient medications were reviewed and appropriate changes in these medications as dictated in the interval history and assessment and plan. Objective - Vital Signs Vital signs: Vital Signs Temp 98.4 F 10/30/19 07:38 Pulse 69 10/30/19 07:38 Resp 12 10/30/19 07:38 BP 102/39 10/30/19 07:38 Pulse Ox 95 10/30/19 07:38 Intake & Output 10/29/19 10/30/19 10/30/19 18:59 06:59 18:59 Intake Total 375 300 Output Total 200 200 Balance 175 -200 300 Intake: Intake, IV Titration 375 300 Amount Cefepime 1 gm In Sodium 300 Chloride 0.9% 50 ml @ 100 mls/hr IVPB DAILY [facility] Rx #:[id number] Sodium Chloride 0.9% 1, 375 000 ml @ 75 mls/hr IV . [id number] [facility] Rx#:[id number] Output: Urine 200 200 Other: Voiding Method Urinal Urinal Urinal Diaper Diaper Diaper Incontinent Incontinent Incontinent # Voids 2 1 2 # Bowel Movements 1 - Exam PHYSICAL EXAMINATION: GENERAL: The patient is alert and oriented x3, not in any acute distress. Well developed, well nourished. 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 EOMI. No scleral icterus. No conjunctival pallor. Normocephalic, atraumatic. No pharyngeal erythema. No thyromegaly. CARDIOVASCULAR: S1 and S2 present. No murmurs, rubs, or gallops. PULMONARY: Chest is clear to auscultation, no wheezing or crackles. ABDOMEN: Soft, nontender, nondistended, normoactive bowel sounds. No palpable organomegaly. MUSCULOSKELETAL: No joint swelling or deformity. EXTREMITIES: No cyanosis, clubbing, or pedal edema. NEUROLOGICAL: Gross neurological examination did not reveal any focal deficits. SKIN: No rashes. - Labs CBC & Chem 7: 10/29/19 06:07 10/29/19 13:15 Labs: Abnormal Lab Results - Last 24 Hours (Table) 10/29/19 10/29/19 10/29/19 Range/Units 06:07 16:43 20:06 POC Glucose (mg/dL) 142 H 124 H (75-99) mg/dL TIBC 174 L (228-460) ug/dL % Saturation 67.82 H (15.00-50.00) 10/30/19 10/30/19 Range/Units 06:53 11:45 POC Glucose (mg/dL) 104 H 132 H (75-99) mg/dL TIBC (228-460) ug/dL % Saturation (15.00-50.00) Microbiology - Last 24 Hours (Table) 10/28/19 Unknown Urine Culture - Final Urine,Voided 10/28/19 13:34 Blood Culture - Preliminary Blood No Growth after 24 hours Assessment and Plan Plan: -Confusion possible encephalopathy appears to be metabolic does not appear to have another urinary tract infection although patient will be continued on cefepime until we get the urine cultures blood cultures come cultures are so far negative significant history persistent bacteremia during his last hospitalization secondary to endocarditis and patient will be continued on Zyvox possibility of sepsis contributing to his encephalopathy is low -Acute renal failure prerenal azotemia continue with IV fluids patient does appear to have chronic diastolic dysfunction because of which will be cautious with IV fluids were continued 75 mL per hour. Patient's creatinine did improve -Anemia appears to be chronic probably anemia of chronic disease no evidence of GI bleed at this time. Patient will be monitored and will be transfused if needed. -Recent history of endocarditis with MRSA and UTI with Pseudomonas continue with the above-mentioned antibiotics -Atrial fibrillation: Patient is presently rate controlled on anti-coagulation which will be continued -Hypothyroidism -Parkinson's with parkinsonian tremor -Type 2 diabetes mellitus For above-mentioned chronic medical problems patient will be resumed on appropriate home medications
[2019-10-30 17:21] LABS: Glucose,Whole Blood 120 mg/dL (75-99)
[2019-10-30] MEDS: INSULIN DETEMIR (LEVEMIR) 100 UNIT/ML SYR SQ SCH (20:18)
[2019-10-30] MEDS: LEVOTHYROXINE 100 MCG TAB PO SCH (20:23)
[2019-10-30 20:27] LABS: Glucose,Whole Blood 117 mg/dL (75-99)
--- NOTE | 2019-10-30 22:52 | PN ---
PROGRESS NOTE DATE OF SERVICE: 10/30/2019 REASON FOR FOLLOWUP: 1. Urinary tract infection. 2. MRSA bacteremia. INTERVAL HISTORY: The patient is currently afebrile. He seems to be slightly more awake, alert today. However did not provide any reliable history. No vomiting or diarrhea has been reported. PHYSICAL EXAMINATION: Blood pressure 114/48 with a pulse of 71. Temperature 97.2. He is 100% on room air. General description is an elderly male lying in bed in no distress. Respiratory system: Unlabored breathing. Clear to auscultation anteriorly. Heart S1, S2. Regular rate and rhythm. ABDOMEN: Soft, no tenderness. LABS: No new labs have been obtained today. Urine culture came back negative. Blood culture has been negative. DIAGNOSTIC IMPRESSION AND PLAN: 1. Patient admitted to the hospital with mental status changes with concern for urinary tract infection. He did have positive urinalysis though culture has been negative. Cefepime is going to be discontinued on discharge. 2. Patient with recent history of MRSA bacteremia, extensive that finally responded to Zyvox. The patient to continue on . We will check a sedimentation rate and CRP. If normalized, may be able to discontinue Zyvox and continue supportive care. MMODL / IJN: [id number] /
[2019-10-31 06:57] LABS: Glucose,Whole Blood 110 mg/dL (75-99)
[2019-10-31] MEDS: INSULIN ASPART (NovoLOG) 100 UNIT/ML VIAL SQ SCH ×5 (07:02→20:37)
[2019-10-31] MEDS: SODIUM CHLORIDE 0.9% 1,000 ML IV SCH (08:03)
[2019-10-31] MEDS: CEFEPIME 1 GM in SODIUM CHLORIDE 0.9% 50 ML IVPB SCH (08:13)
[2019-10-31] MEDS: CARBIDOPA-LEVODOPA 25-100 MG 1 EACH TAB PO SCH ×3 (08:13→20:32)
[2019-10-31] MEDS: LINEZOLID 600 MG TAB PO SCH ×2 (08:13→20:32)
[2019-10-31] MEDS: APIXABAN 2.5 MG TABLET PO SCH ×2 (08:13→20:32)
[2019-10-31] MEDS: METOPROLOL TARTRATE 25 MG TAB PO SCH ×2 (08:13→20:32)
[2019-10-31] MEDS: MEGESTROL 400 MG/10 ML CUP PO SCH (08:14)
[2019-10-31] MEDS: LACTOBACILLUS ACIDOPH & BULGAR 1 EACH PACKET PO SCH ×2 (08:14→20:32)
[2019-10-31 09:33] LABS: HCT 23.4 % (39.0-53.0); HGB 7.2 gm/dL (13.0-17.5); Hypochromasia Slight; MCH 28.8 pg (25.0-35.0); MCHC 30.9 g/dL (31.0-37.0); MCV 93.2 fL (80.0-100.0); Mean Platelet Volume 9.2; Platelet Count 182 k/uL (150-450); RBC 2.51 m/uL (4.30-5.90); RDW 15.6 % (11.5-15.5); WBC 6.3 k/uL (3.8-10.6)
[2019-10-31 09:56] LABS: C Reactive Protein 66.6 mg/L (<10.0); Calcium 8.5 mg/dL (8.4-10.2); Potassium 5.6 mmol/L (3.5-5.1)
--- NOTE | 2019-10-31 10:03 | P.PN ---
Subjective Patient is seen in follow-up for acute kidney injury on chronic kidney disease. Renal function improving. Creatinine 2.74 as of October 29. Patient is incontinent but has been voiding. Oral intake is poor. No vomiting or diarrhea. Feels tired. Vital signs are stable. General: The patient appeared well nourished and normally developed. HEENT: Head exam is unremarkable. Neck is without jugular venous distension. LUNGS: Lungs are clear to auscultation and percussion. Breath sounds decreased. HEART: Rate and Rhythm are regular. First and second heart sounds normal. No murmurs, rubs or gallops. ABDOMEN: Abdominal exam reveals normal bowel sounds. Non-tender and non- distended. No evidence of peritonitis. EXTREMITITES: No clubbing, cyanosis, or edema. Objective - Vital Signs Vital signs: Vital Signs Temp 98.2 F 10/31/19 06:54 Pulse 62 10/31/19 06:54 Resp 16 10/31/19 06:54 BP 91/48 10/31/19 06:54 Pulse Ox 98 10/31/19 06:54 Intake & Output 10/30/19 10/31/19 10/31/19 18:59 06:59 18:59 Intake Total 300 Output Total 200 Balance 300 -200 Intake: Intake, IV Titration 300 Amount Cefepime 1 gm In Sodium 300 Chloride 0.9% 50 ml @ 100 mls/hr IVPB DAILY [facility] Rx #:[id number] Output: Urine 200 Other: Voiding Method Urinal Urinal Diaper Diaper Incontinent Incontinent # Voids 2 1 - Labs CBC & Chem 7: 10/31/19 06:22 10/29/19 13:15 Labs: Abnormal Lab Results - Last 24 Hours (Table) 10/30/19 10/30/19 10/30/19 Range/Units 11:45 17:06 20:16 RBC (4.30-5.90) m/uL Hgb (13.0-17.5) gm/dL Hct (39.0-53.0) % MCHC (31.0-37.0) g/dL RDW (11.5-15.5) % POC Glucose (mg/dL) 132 H 120 H 117 H (75-99) mg/dL 10/31/19 10/31/19 Range/Units 06:22 06:45 RBC 2.51 L (4.30-5.90) m/uL Hgb 7.2 L (13.0-17.5) gm/dL Hct 23.4 L (39.0-53.0) % MCHC 30.9 L (31.0-37.0) g/dL RDW 15.6 H (11.5-15.5) % POC Glucose (mg/dL) 110 H (75-99) mg/dL Microbiology - Last 24 Hours (Table) 10/28/19 13:34 Blood Culture - Preliminary Blood No Growth after 48 hours Assessment and Plan Plan: Assessment: 1. Acute kidney injury mostly prerenal secondary to hypotension and poor oral intake. Renal function improving. 2. Chronic kidney disease stage II with baseline creatinine near 1.2-1.3 in August 2019. However recently his renal function has been worse. 3. History of MRSA bacteremia maintained on Zyvox. 4. UTI maintain and antibiotics. 5. Insulin-dependent diabetes mellitus. 6. Metabolic acidosis secondary to acute kidney injury and IV fluids. Plan: Maintain normal saline at 75 mL an hour. Morning labs pending. Encouraged oral intake. Avoid nephrotoxins.
[2019-10-31 11:45] LABS: Glucose,Whole Blood 117 mg/dL (75-99)
--- NOTE | 2019-10-31 12:00 | CDI ---
Documentation Clarification Form Date: 10/31/2019 11:39:50 AM From: Laly Muñoz RN CCDS Admit Date: 10/27/2019 05:51:00 PM Patient Name: Dayday Peterson Visit Number: [id number] Discharge Date: ATTENTION: The Clinical Documentation Specialists (CDI) and [facility] Coding Staff appreciate your assistance in clarifying documentation. Please respond to the clarification below the line at the bottom and electronically sign. The CDI & [facility] Coding staff will review the response and follow-up if needed. Please note: Queries are made part of the Legal Health Record. If you have any questions, please contact the author of this message via ITS. Dr. Kirstie Isbell Chronic diastolic dysfunction is documented in the H & P and in subsequent Progress Notes History/Risk Factors: 79-year-old male presents to the ED as a transfer from [facility] for decreased functionality, generalized weakness and possible confusion. Medical History Atrial Flutter; Heart Failure, HTN; DM; CKD 3; Endocarditis; Sepsis; UTI Clinical Indicators: VS/Pulse OX: 10/27/19 90/55 92 98.2 14 94% ra Treatment:10/28 Lopressor po bid In your professional opinion, can you please clarify the acuity and type of CHF if known? * Chronic Diastolic Heart Failure * Heart Failure with Chronic Diastolic Dysfunction * Unable to Determine * Other, please specify (Last Revision: January 2018) Chronic Diastolic Heart Failure MTDD
[2019-10-31] MEDS ORDERED: LACTULOSE 20 GM/30 ML CUP PO ONE (12:13)
[2019-10-31 13:37] LABS: Erythrocyte Sedimentation Rate 122 mm/hr (0-15)
[2019-10-31] MEDS ORDERED: SODIUM POLYSTYRENE SULFONATE 15 GM/60 ML BOTTLE PO STA (13:57)
--- NOTE | 2019-10-31 14:53 | P.PN ---
Subjective Progress Note Date: 10/31/19 Principal diagnosis: 79-year-old pleasant male was at the subacute rehab was sent in to [facility] because of his decreased functionality generalized weakness which has been getti ng worse and possible confusion. Patient was not confused when I evaluated patient is at his baseline alert oriented 2-3 able to provide me did answer is better patient is not aware of any confusion. is unable to provide me much history. Patient was believed to have urinary tract infection was subsequently transferred here for further management of UTI considering his previous lengthy hospitalization course here. Patient is presently on Zyvox and Cipro for his endocarditis with MRSA and pseudomonal UTI respectively. Patient was evaluated by infectious disease urine is bit abnormal but patient doesn't have any UTI symptoms there is no evidence of urinary tract infection yet patient doesn't have any fever but doesn't have any leukocytosis. Patient is anemic which is chronic is a hemoglobin at the time of discharge is 8.7 now around 7.4 this is secondary to multiple blood draws. There was a concern about GI bleed although patient doesn't have any dark stools or blood in the stools or hematemesis or hematochezia. 10/29/2019 Patient is feeling better patient's serum creatinine continue to improve. 10/30/2019 Patient had a fall. Hit to his head, computed tomography scan of the head did not show any intracranial bleed. 10/31/2019 Patient is lying in bed and appears to be in no acute distress. No acute overnight issues. Terrence is at the bedside. states that he is now eating because of the type of diet and that it has no flavor. Regular diet with low-salt and low potassium has been ordered. Patient encouraged to continue with oral intake and water as he is not even drinking that. Patient continues to sleep most of the day. Currently patient denies any chest pain, shortness of breath, or palpitations. Patient is afebrile. Patient denies any nausea or vomiting and is tolerating diet. Patient continues to be incontinent of urine but is urinating. Creatinine today is improved and is currently 2.19. Potassium today is 5.6 and an order of Kayexalate was given. Objective - Vital Signs Vital signs: Vital Signs Temp 98.1 F 10/31/19 13:32 Pulse 81 01/20/20 13:32 Resp 17 10/31/19 13:32 BP 133/56 10/31/19 13:32 Pulse Ox 97 10/31/19 13:32 Intake & Output 10/30/19 10/31/19 10/31/19 18:59 06:59 18:59 Intake Total 300 20 Output Total 400 Balance 300 -380 Intake: Intake, IV Titration 300 Amount Cefepime 1 gm In Sodium 300 Chloride 0.9% 50 ml @ 100 mls/hr IVPB DAILY [facility] Rx #:[id number] Oral 20 Output: Urine 400 Other: Voiding Method Urinal Urinal Urinal Diaper Diaper Diaper Incontinent Incontinent Incontinent # Voids 2 1 - Exam GENERAL: The patient is alert and oriented x2-3, not in any acute distress. Well developed, well nourished. 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 EOMI. No scleral icterus. No conjunctival pallor. Normocephalic, atraumatic. No pharyngeal erythema. No thyromegaly. CARDIOVASCULAR: S1 and S2 present. No murmurs, rubs, or gallops. PULMONARY: Chest is clear to auscultation, no wheezing or crackles. ABDOMEN: Soft, nontender, nondistended, normoactive bowel sounds. No palpable organomegaly. MUSCULOSKELETAL: No joint swelling or deformity. EXTREMITIES: No cyanosis, clubbing, or pedal edema. NEUROLOGICAL: Gross neurological examination did not reveal any focal deficits. SKIN: No rashes. - Labs CBC & Chem 7: 10/31/19 06:22 10/31/19 06:22 Labs: Abnormal Lab Results - Last 24 Hours (Table) 10/30/19 10/30/19 10/31/19 Range/Units 17:06 20:16 06:22 RBC 2.51 L (4.30-5.90) m/uL Hgb 7.2 L (13.0-17.5) gm/dL Hct 23.4 L (39.0-53.0) % MCHC 30.9 L (31.0-37.0) g/dL RDW 15.6 H (11.5-15.5) % ESR 122 H (0-15) mm/hr Potassium (3.5-5.1) mmol/L Chloride (98-107) mmol/L Carbon Dioxide (22-30) mmol/L BUN (9-20) mg/dL Creatinine (0.66-1.25) mg/dL Glucose (74-99) mg/dL POC Glucose (mg/dL) 120 H 117 H (75-99) mg/dL C-Reactive Protein (<10.0) mg/L 10/31/19 10/31/19 10/31/19 Range/Units 06:22 06:45 11:43 RBC (4.30-5.90) m/uL Hgb (13.0-17.5) gm/dL Hct (39.0-53.0) % MCHC (31.0-37.0) g/dL RDW (11.5-15.5) % ESR (0-15) mm/hr Potassium 5.6 H (3.5-5.1) mmol/L Chloride 115 H (98-107) mmol/L Carbon Dioxide 21 L (22-30) mmol/L BUN 31 H (9-20) mg/dL Creatinine 2.19 H (0.66-1.25) mg/dL Glucose 113 H (74-99) mg/dL POC Glucose (mg/dL) 110 H 117 H (75-99) mg/dL C-Reactive Protein 66.6 H (<10.0) mg/L Microbiology - Last 24 Hours (Table) 10/28/19 13:34 Blood Culture - Preliminary Blood No Growth after 48 hours Assessment and Plan Assessment: -Confusion possible encephalopathy appears to be metabolic does not appear to have another urinary tract infection although patient will be continued on cefepime until we get the urine cultures blood cultures come cultures are so far negative significant history persistent bacteremia during his last hospitalization secondary to endocarditis and patient will be continued on Zyvox possibility of sepsis contributing to his encephalopathy is low -Acute renal failure prerenal azotemia continue with IV fluids patient does appear to have chronic diastolic dysfunction because of which will be cautious with IV fluids were continued 75 mL per hour. Patient's creatinine did improve. Current creatinine is 2.19. -Anemia appears to be chronic probably anemia of chronic disease no evidence of GI bleed at this time. Patient will be monitored and will be transfused if needed. -Recent history of endocarditis with MRSA and UTI with Pseudomonas continue with the above-mentioned antibiotics -Atrial fibrillation: Patient is presently rate controlled on anti-coagulation which will be continued -Hypothyroidism -Parkinson's with parkinsonian tremor -Type 2 diabetes mellitus Plan: Continue current medications, management, and symptomatic treatment. Patient and at the bedside encouraged to continue increasing oral intake and water as the patient has no IV at this time. Current creatinine is 2.19 and trending down. Will repeat a.m. labs. Diet changed to regular diet with low-sodium and low potassium and encouraged oral intake. Potassium was 5.6 today and a one- time dose of Kayexalate was ordered. Case management and social work are following for discharge needs as patient will be returning to [facility] upon discharge. Discussed with the patient's about hospice and she is not open to that at this time. Further recommendations to follow. Possible discharge in 24-48 hours.
[2019-10-31 17:06] LABS: Glucose,Whole Blood 119 mg/dL (75-99)
--- NOTE | 2019-10-31 17:47 | PN ---
PROGRESS NOTE DATE OF SERVICE: 10/31/2019 REASON FOR FOLLOWUP: 1. UTI. 2. MRSA bacteremia history. INTERVAL HISTORY: The patient is currently afebrile. The patient is breathing comfortably. Slightly more awake, alert; however, not providing any history. No nausea, vomiting or any diarrhea reported by the nursing staff. PHYSICAL EXAMINATION: Blood pressure 133/56, pulse 81, temperature 98.1. He is 97% on room air. General description is an elderly male lying in bed in no distress. RESPIRATORY SYSTEM: Unlabored breathing. Clear to auscultation anteriorly. HEART: S1, S2. Regular rate and rhythm. ABDOMEN: Soft. No tenderness. LABS: Hemoglobin 7.2, white count 6.3, BUN of 31, creatinine 2.19. DIAGNOSTIC IMPRESSION AND PLAN: 1. Patient admitted to hospital with mental status changes, likely multifactorial, likely dehydration. Patient is currently on cefepime. That can be discontinued. Culture negative. 2. Patient with recent history of methicillin-resistant Staphylococcus aeruginosa bacteremia, for which the patient has been on Zyvox; to continue for another 2 weeks, as his markers are still elevated. Monitor his clinical course closely. MMODL / IJN: [id number] /
[2019-10-31 20:32] LABS: Glucose,Whole Blood 123 mg/dL (75-99)
[2019-10-31] MEDS: LEVOTHYROXINE 100 MCG TAB PO SCH (20:32)
[2019-10-31] MEDS: INSULIN DETEMIR (LEVEMIR) 100 UNIT/ML SYR SQ SCH (20:37)
[2019-11-01] MEDS: SODIUM CHLORIDE 0.9% 1,000 ML IV SCH ×2 (00:07→12:48)
[2019-11-01 07:19] LABS: Glucose,Whole Blood 104 mg/dL (75-99)
[2019-11-01 07:21] LABS: Calcium 8.5 mg/dL (8.4-10.2); Magnesium 1.5 mg/dL (1.6-2.3); Potassium 5.5 mmol/L (3.5-5.1)
[2019-11-01 07:28] LABS: Basophils # (A) 0.1 k/uL (0-0.2); Basophils % (A) 1 %; Eosinophils # (A) 0.2 k/uL (0-0.7); Eosinophils % (A) 3 %; HCT 22.4 % (39.0-53.0); HGB 7.2 gm/dL (13.0-17.5); Hypochromasia Slight; Lymphocytes # (A) 1.7 k/uL (1.0-4.8); Lymphocytes % (A) 27 %; MCH 29.3 pg (25.0-35.0); MCV 91.7 fL (80.0-100.0); Mean Platelet Volume 9.4; Monocytes # (A) 0.3 k/uL (0-1.0); Monocytes % (A) 5 %; Neutrophils # (A) 3.8 k/uL (1.3-7.7); Neutrophils % (A) 62 %; Platelet Count 179 k/uL (150-450); RBC 2.44 m/uL (4.30-5.90); RDW 15.4 % (11.5-15.5); WBC 6.2 k/uL (3.8-10.6)
[2019-11-01] MEDS: CEFEPIME 1 GM in SODIUM CHLORIDE 0.9% 50 ML IVPB SCH (08:15)
[2019-11-01] MEDS: INSULIN ASPART (NovoLOG) 100 UNIT/ML VIAL SQ SCH ×5 (08:22→21:00)
[2019-11-01] MEDS: LACTOBACILLUS ACIDOPH & BULGAR 1 EACH PACKET PO SCH ×2 (08:23→20:28)
[2019-11-01] MEDS: CARBIDOPA-LEVODOPA 25-100 MG 1 EACH TAB PO SCH ×3 (08:23→20:29)
[2019-11-01] MEDS: APIXABAN 2.5 MG TABLET PO SCH ×2 (08:23→20:28)
[2019-11-01] MEDS: MEGESTROL 400 MG/10 ML CUP PO SCH (08:24)
[2019-11-01] MEDS: METOPROLOL TARTRATE 25 MG TAB PO SCH ×2 (08:24→20:28)
[2019-11-01] MEDS: LINEZOLID 600 MG TAB PO SCH ×2 (08:24→20:28)
[2019-11-01] MEDS ORDERED: SODIUM POLYSTYRENE SULFONATE 15 GM/60 ML BOTTLE PO STA (09:06)
[2019-11-01] MEDS ORDERED: MAGNESIUM OXIDE 400 MG TAB PO STA (09:09)
--- NOTE | 2019-11-01 11:23 | P.DS ---
Providers Date of admission: 10/27/19 17:51 Expected date of discharge: 11/01/19 Attending physician: Kirstie Isbell Consults: 10/27/19 17:59 Consult Physician Urgent Consulting Provider: Ross Bueno Consult Reason/Comments: UTI/familiar to patient Do you want consulting provider notified?: Yes Placement Type Exists?: Yes 10/27/19 18:09 Consult Physician Urgent Consulting Provider: Le Domínguez Consult Reason/Comments: elevated creatinine/ familiar to patient Do you want consulting provider notified?: Yes Primary care physician: Stated None Hospital Course: Final diagnosis -Confusion possible encephalopathy appears to be metabolic -Acute renal failure prerenal azotemia -Heart failure with chronic diastolic dysfunction -Anemia appears to be chronic probably anemia of chronic disease -Recent history of endocarditis with MRSA and UTI with Pseudomonas -Atrial fibrillation -Hypothyroidism -Parkinson's with parkinsonian tremor -Type 2 diabetes mellitus Discharge disposition Patient is being discharged in a stable condition with guarded prognosis to [facility] where he will continue with PT/OT therapy for strength and mobility. Patient will continue on Zyvox twice daily for an additional 2 weeks. Total time taken is 35 minutes. History of present illness 79-year-old pleasant male was at the subacute rehab was sent in to [facility] because of his decreased functionality generalized weakness which has been getting worse and possible confusion. Patient was not confused when I evaluated patient is at his baseline alert oriented 2-3 able to provide me did answer is better patient is not aware of any confusion. is unable to provide me much history. Patient was believed to have urinary tract infection was subsequently transferred here for further management of UTI considering his previous lengthy hospitalization course here. Patient is presently on Zyvox and Cipro for his endocarditis with MRSA and pseudomonal UTI respectively. Patient was evaluated by infectious disease urine is bit abnormal but patient doesn't have any UTI symptoms there is no evidence of urinary tract infection yet patient doesn't hav e any fever but doesn't have any leukocytosis. Patient is anemic which is chronic is a hemoglobin at the time of discharge is 8.7 now around 7.4 this is secondary to multiple blood draws. There was a concern about GI bleed although patient doesn't have any dark stools or blood in the stools or hematemesis or hematochezia. 11/01/2019 Patient is lying in bed comfortably and appears to be in no acute distress. Creatinine today has improved and is currently 1.89. Patient does have a history of chronic anemia and hemoglobin has been remaining stable at 7.2. Patient will need repeat labs in a few days to monitor electrolytes as well as hemoglobin. Patient has no active bleeding noted at this time. Patient has been urinating and is often incontinent of urine and a brief. Patient continues to refuse physical therapy at times but has managed to get up in the chair intermittently with to person total assist almost. Patient will need to continue with physical therapy in the outpatient setting as the 's goal for the patient is to increase his strength to be able to return home. Patient is also continuing to eat very poorly and discuss this at length with the along with the patient and states that it is because of a renal diet which is very bland and no flavor. Patient hasn't been eating very well on previous admissions and continues to worsen. Encouraged the patient to continue with a regular diet with possible low sodium low potassium along with Magic cups in between meals as he has been eating those. Patient is also not drinking very well and encourage the patient to continue drinking fluids as he gets dehydrated easily. Discussed with the about possible hospice and she is not willing at this time to agree with this. Possibly a conversation while in the [facility] could be had given patient's current status. Currently patient denies any chest pain, shortness of breath, or palpitations. Patient is afebrile. Patient denies any nausea or vomiting and has been eating as mentioned previously very poorly but eating some bites of each meal. Extremely poor and guarded prognosis. On exam vital signs are stable. Temp is 98.5F, pulse is 63, respirations are 12, blood pressure is 145/75, oxygen saturation is 98% on room air. Cardio S1, S2 are muffled. Respiratory system shows diminished breath sounds at the bases otherwise clear to auscultation. Abdomen is soft and nontender. Nervous system shows mild to moderate diffuse weakness. Please refer to medication reconciliation sheet for a list of medications. Patient Condition at Discharge: Fair Plan - Discharge Summary Discharge Rx Participant: Yes New Discharge Prescriptions: New INSULIN ASPART (NovoLOG) [NovoLOG (formulary)] 0 unit SQ ACHS vial Continue Carbidopa-Levodopa 25-100 mg [Sinemet 25-100 mg] 2 tab PO TID Levothyroxine Sodium [Synthroid] 100 mcg PO HS Albuterol Inhaler [Ventolin Hfa Inhaler] 2 puff INHALATION RT-Q6H PRN PRN Reason: Shortness Of Breath Metoprolol Tartrate [Lopressor] 25 mg PO BID Acetaminophen Tab [Tylenol] 650 mg PO Q6H PRN PRN Reason: Pain Allopurinol [Zyloprim] 100 mg PO DAILY amLODIPine [Norvasc] 5 mg PO DAILY Insulin Detemir [Levemir Flextouch] 18 units SQ HS Apixaban [Eliquis] 5 mg PO BID Megestrol [Megace] 400 mg PO DAILY cup Liquical Liquid 30 ml PO BID Insulin Lispro [humaLOG Kwikpen] 5 unit SQ HS L.acidoph,Paracasei, B.lactis [Probiotic] 1 cap PO BID Linezolid [Zyvox] 600 mg PO BID #0 Discontinued Ciprofloxacin HCl [Cipro] 500 mg PO BID #0 tab Discharge Medication List Carbidopa-Levodopa 25-100 mg [Sinemet 25-100 mg] 2 tab PO TID 07/08/16 [History] Levothyroxine Sodium [Synthroid] 100 mcg PO HS 05/27/19 [History] Albuterol Inhaler [Ventolin Hfa Inhaler] 2 puff INHALATION RT-Q6H PRN 06/16/19 [History] Metoprolol Tartrate [Lopressor] 25 mg PO BID 06/16/19 [History] Acetaminophen Tab [Tylenol] 650 mg PO Q6H PRN 08/31/19 [History] Allopurinol [Zyloprim] 100 mg PO DAILY 08/31/19 [History] Apixaban [Eliquis] 5 mg PO BID 10/13/19 [History] Insulin Detemir [Levemir Flextouch] 18 units SQ HS 10/13/19 [History] amLODIPine [Norvasc] 5 mg PO DAILY 10/13/19 [History] Megestrol [Megace] 400 mg PO DAILY cup 10/20/19 [Rx] Insulin Lispro [humaLOG Kwikpen] 5 unit SQ HS 10/27/19 [History] L.acidoph,Paracasei, B.lactis [Probiotic] 1 cap PO BID 01/16/20 [History] Liquical Liquid 30 ml PO BID 10/27/19 [History] INSULIN ASPART (NovoLOG) [NovoLOG (formulary)] 0 unit SQ ACHS vial 11/01/19 [Rx] Linezolid [Zyvox] 600 mg PO BID #0 11/01/19 [Rx] Follow up Appointment(s)/Referral(s): [facility], [NON-STAFF] - As Needed Ambulatory/Diagnostic Orders: Basic Metabolic Panel [LAB.AMB] Time Frame: 3 Days, Location: None Selected Complete Blood Count w/diff [LAB.AMB] Time Frame: 3 Days, Location: None Selected Activity/Diet/Wound Care/Special Instructions: Patient is returning to [facility] Continue current regular diet with low potassium and low sodium May continue with Magic cups in between meals Continue to encourage oral intake and fluids!!! Continue monitoring blood sugars before meals at bedtime and treat with sliding scale accordingly Continue Zyvox for 2 more weeks Continue working with physical therapy Follow-up with primary care provider upon discharge Repeat labs in 3-4 days
--- NOTE | 2019-11-01 11:37 | P.PN ---
Subjective Patient is seen in follow-up for acute kidney injury on chronic kidney disease. Renal function improving. Remains on IV fluids. Patient is incontinent but has been voiding. Oral intake is poor. No vomiting or diarrhea. Vital signs are stable. General: The patient appeared well nourished and normally developed. HEENT: Head exam is unremarkable. Neck is without jugular venous distension. LUNGS: Lungs are clear to auscultation and percussion. Breath sounds decreased. HEART: Rate and Rhythm are regular. First and second heart sounds normal. No murmurs, rubs or gallops. ABDOMEN: Abdominal exam reveals normal bowel sounds. Non-tender and non- distended. No evidence of peritonitis. EXTREMITITES: No clubbing, cyanosis, or edema. Objective - Vital Signs Vital signs: Vital Signs Temp 98.5 F 11/01/19 07:59 Pulse 63 11/01/19 07:59 Resp 12 11/01/19 07:59 BP 145/75 11/01/19 07:59 Pulse Ox 98 11/01/19 07:59 Intake & Output 10/31/19 11/01/19 11/01/19 18:59 06:59 18:59 Intake Total 20 Output Total 400 200 Balance -380 -200 Weight 78 kg Intake: Oral 20 Output: Urine 400 200 Other: Voiding Method Urinal Urinal Diaper Diaper Incontinent Incontinent # Voids 1 1 - Labs CBC & Chem 7: 11/01/19 06:49 11/01/19 06:49 Labs: Abnormal Lab Results - Last 24 Hours (Table) 10/31/19 10/31/19 10/31/19 Range/Units 06:22 11:43 17:04 RBC (4.30-5.90) m/uL Hgb (13.0-17.5) gm/dL Hct (39.0-53.0) % ESR 122 H (0-15) mm/hr Potassium (3.5-5.1) mmol/L Chloride (98-107) mmol/L Carbon Dioxide (22-30) mmol/L BUN (9-20) mg/dL Creatinine (0.66-1.25) mg/dL Glucose (74-99) mg/dL POC Glucose (mg/dL) 117 H 119 H (75-99) mg/dL Magnesium (1.6-2.3) mg/dL 10/31/19 11/01/19 11/01/19 Range/Units 20:20 06:49 06:49 RBC 2.44 L (4.30-5.90) m/uL Hgb 7.2 L (13.0-17.5) gm/dL Hct 22.4 L (39.0-53.0) % ESR (0-15) mm/hr Potassium 5.5 H (3.5-5.1) mmol/L Chloride 115 H (98-107) mmol/L Carbon Dioxide 17 L (22-30) mmol/L BUN 28 H (9-20) mg/dL Creatinine 1.89 H (0.66-1.25) mg/dL Glucose 115 H (74-99) mg/dL POC Glucose (mg/dL) 123 H (75-99) mg/dL Magnesium 1.5 L (1.6-2.3) mg/dL 11/01/19 Range/Units 06:58 RBC (4.30-5.90) m/uL Hgb (13.0-17.5) gm/dL Hct (39.0-53.0) % ESR (0-15) mm/hr Potassium (3.5-5.1) mmol/L Chloride (98-107) mmol/L Carbon Dioxide (22-30) mmol/L BUN (9-20) mg/dL Creatinine (0.66-1.25) mg/dL Glucose (74-99) mg/dL POC Glucose (mg/dL) 104 H (75-99) mg/dL Magnesium (1.6-2.3) mg/dL Microbiology - Last 24 Hours (Table) 10/28/19 13:34 Blood Culture - Preliminary Blood No Growth after 72 hours Assessment and Plan Plan: Assessment: 1. Acute kidney injury mostly prerenal secondary to hypotension and poor oral intake. Renal function improving. Creatinine 1.89 today. 2. Chronic kidney disease stage II with baseline creatinine near 1.2-1.3 in August 2019. However recently his renal function has been worse. 3. History of MRSA bacteremia maintained on Zyvox. 4. UTI maintain and antibiotics. 5. Insulin-dependent diabetes mellitus. 6. Metabolic acidosis secondary to acute kidney injury and IV fluids. 7. Hypomagnesemia from poor oral intake. 8. Mild hyperkalemia secondary to acute kidney injury and metabolic acidosis. Stable. Plan: Decrease rate of normal saline to 50 mL an hour. Add oral sodium bicarbonate. Encouraged oral intake. Avoid nephrotoxins. Replace magnesium. 2 g IV today.
[2019-11-01 12:29] LABS: Glucose,Whole Blood 129 mg/dL (75-99)
[2019-11-01] MEDS: MAGNESIUM SULFATE-D5W PMX 1 GM in DEXTROSE/WATER 1 100ML.BAG IVPB SCH (12:51)
[2019-11-01] MEDS: SODIUM BICARBONATE TAB 650 MG TAB PO SCH ×2 (12:53→20:28)
--- NOTE | 2019-11-01 13:07 | PN ---
PROGRESS NOTE DATE OF SERVICE: 11/01/2020 REASON FOR FOLLOWUP: 1. Possible UTI. MRSA bacteremia. History. INTERVAL HISTORY: The patient is currently afebrile. Apparently, patient is slightly more confused and has a followup is IV not specifically the patient denies having any chest pain or cough. No vomiting or diarrhea has been reported. PHYSICAL EXAMINATION: Blood pressure is 145/75 with a pulse of 63. temperature 98.5. He is 98% on room air GENERAL DESCRIPTION IS: an elderly male lying in bed in no distress respiratory system: Unlabored breathing clear to auscultation anteriorly heart S1, S2. Regular rate and rhythm. ABDOMEN: Soft, no tenderness. Extremities some trace edema of the feet. LABS: Hemoglobin 7.6 with a BUN of 280, creatinine 1.89. DIAGNOSTIC IMPRESSION AND PLAN: 1. Patient admitted to the hospital with mental status changes, weakness, dehydration, possible urinary tract infection. The patient at this time urine culture negative. Cefepime can be discontinued.\. 2. Patient with a recent history of MRSA bacteremia, prolonged for the patient is on oral Zyvox to continue finish course of therapy and close outpatient followup. MMODL / IJN: [id number] /
[2019-11-01 16:01] VITALS: BMI 25.4
[2019-11-01 17:16] LABS: Glucose,Whole Blood 118 mg/dL (75-99)
[2019-11-01 20:28] LABS: Glucose,Whole Blood 105 mg/dL (75-99)
[2019-11-01] MEDS: LEVOTHYROXINE 100 MCG TAB PO SCH (20:28)
[2019-11-01] MEDS: INSULIN DETEMIR (LEVEMIR) 100 UNIT/ML SYR SQ SCH (21:00)
[2019-11-02 07:05] LABS: Glucose,Whole Blood 111 mg/dL (75-99)
[2019-11-02 07:20] LABS: Calcium 8.8 mg/dL (8.4-10.2); Magnesium 1.4 mg/dL (1.6-2.3); Potassium 5.3 mmol/L (3.5-5.1)
[2019-11-02 07:39] LABS: Basophils # (A) 0.1 k/uL (0-0.2); Basophils % (A) 1 %; Eosinophils # (A) 0.3 k/uL (0-0.7); Eosinophils % (A) 4 %; HCT 21.3 % (39.0-53.0); Hypochromasia Slight; Lymphocytes # (A) 1.5 k/uL (1.0-4.8); Lymphocytes % (A) 24 %; MCHC 32.8 g/dL (31.0-37.0); MCV 91.2 fL (80.0-100.0); Mean Platelet Volume 9.4; Monocytes # (A) 0.4 k/uL (0-1.0); Monocytes % (A) 6 %; Neutrophils % (A) 63 %; Platelet Count 181 k/uL (150-450); RBC 2.33 m/uL (4.30-5.90); RDW 15.3 % (11.5-15.5); WBC 6.3 k/uL (3.8-10.6)
[2019-11-02] MEDS: INSULIN ASPART (NovoLOG) 100 UNIT/ML VIAL SQ SCH ×5 (08:02→21:06)
--- NOTE | 2019-11-02 09:20 | P.PN ---
Subjective Patient is seen in follow-up for acute kidney injury on chronic kidney disease. Renal function improving. Off IV fluids at this time as he pulled out his IV. Patient is incontinent but has been voiding. Oral intake is poor. No vomiting or diarrhea. Hemoglobin low at 7.0. No signs of active bleeding. Vital signs are stable. General: The patient appeared well nourished and normally developed. HEENT: Head exam is unremarkable. Neck is without jugular venous distension. LUNGS: Lungs are clear to auscultation and percussion. Breath sounds decreased. HEART: Rate and Rhythm are regular. First and second heart sounds normal. No murmurs, rubs or gallops. ABDOMEN: Abdominal exam reveals normal bowel sounds. Non-tender and non- distended. No evidence of peritonitis. EXTREMITITES: No clubbing, cyanosis, or edema. Objective - Vital Signs Vital signs: Vital Signs Temp 98.6 F 11/02/19 07:30 Pulse 61 11/02/19 07:30 Resp 17 11/02/19 07:30 BP 137/61 11/02/19 07:30 Pulse Ox 92 L 11/02/19 07:30 Intake & Output 11/01/19 11/02/19 11/02/19 18:59 06:59 18:59 Output Total 200 Balance -200 Weight 78 kg 84.5 kg Output: Urine 200 Other: Voiding Method Urinal Diaper Incontinent # Voids 3 2 - Labs CBC & Chem 7: 11/02/19 06:00 11/02/19 06:00 Labs: Abnormal Lab Results - Last 24 Hours (Table) 11/01/19 11/01/19 11/01/19 Range/Units 12:02 17:12 20:26 RBC (4.30-5.90) m/uL Hgb (13.0-17.5) gm/dL Hct (39.0-53.0) % Potassium (3.5-5.1) mmol/L Chloride (98-107) mmol/L Carbon Dioxide (22-30) mmol/L BUN (9-20) mg/dL Creatinine (0.66-1.25) mg/dL Glucose (74-99) mg/dL POC Glucose (mg/dL) 129 H 118 H 105 H (75-99) mg/dL Magnesium (1.6-2.3) mg/dL 11/02/19 11/02/19 11/02/19 Range/Units 06:00 06:00 06:53 RBC 2.33 L (4.30-5.90) m/uL Hgb 7.0 L (13.0-17.5) gm/dL Hct 21.3 L (39.0-53.0) % Potassium 5.3 H (3.5-5.1) mmol/L Chloride 112 H (98-107) mmol/L Carbon Dioxide 21 L (22-30) mmol/L BUN 29 H (9-20) mg/dL Creatinine 1.85 H (0.66-1.25) mg/dL Glucose 121 H (74-99) mg/dL POC Glucose (mg/dL) 111 H (75-99) mg/dL Magnesium 1.4 L (1.6-2.3) mg/dL Microbiology - Last 24 Hours (Table) 10/28/19 13:34 Blood Culture - Preliminary Blood No Growth after 96 hours Assessment and Plan Plan: Assessment: 1. Acute kidney injury mostly prerenal secondary to hypotension and poor oral intake. Renal function improving. Creatinine 1.85 today. 2. Chronic kidney disease stage II with baseline creatinine near 1.2-1.3 in August 2019. However recently his renal function has been worse. 3. History of MRSA bacteremia maintained on Zyvox. 4. UTI maintain and antibiotics. 5. Insulin-dependent diabetes mellitus. 6. Metabolic acidosis secondary to acute kidney injury and IV fluids. Better. Maintained on oral sodium bicarbonate. 7. Hypomagnesemia from poor oral intake. 8. Mild hyperkalemia secondary to acute kidney injury and metabolic acidosis. Stable. 9. Anemia of chronic kidney disease maintained on Aranesp. No active bleeding. Rule out iron deficiency. Plan: Hep-Lock IV fluids. Scheduled for 1 unit of blood transfusion today. Check iron studies. Encouraged oral intake. Avoid nephrotoxins. Replace magnesium. 2 g IV today.
[2019-11-02] MEDS: MAGNESIUM SULFATE-D5W PMX 1 GM in DEXTROSE/WATER 1 100ML.BAG IVPB SCH ×2 (09:50→14:23)
[2019-11-02 11:07] LABS: Magnesium 1.5 mg/dL (1.6-2.3)
[2019-11-02] MEDS: LACTOBACILLUS ACIDOPH & BULGAR 1 EACH PACKET PO SCH ×2 (11:11→21:08)
[2019-11-02] MEDS: SODIUM BICARBONATE TAB 650 MG TAB PO SCH ×2 (11:11→21:08)
[2019-11-02] MEDS: CARBIDOPA-LEVODOPA 25-100 MG 1 EACH TAB PO SCH ×3 (11:11→21:05)
[2019-11-02] MEDS: METOPROLOL TARTRATE 25 MG TAB PO SCH ×2 (11:12→21:07)
[2019-11-02] MEDS: LINEZOLID 600 MG TAB PO SCH ×2 (11:12→21:08)
[2019-11-02] MEDS: MEGESTROL 400 MG/10 ML CUP PO SCH (11:12)
[2019-11-02] MEDS: APIXABAN 2.5 MG TABLET PO SCH ×2 (11:12→21:08)
[2019-11-02] MEDS: CEFEPIME 1 GM in SODIUM CHLORIDE 0.9% 50 ML IVPB SCH (11:15)
[2019-11-02 11:47] LABS: Glucose,Whole Blood 135 mg/dL (75-99)
--- NOTE | 2019-11-02 14:58 | PN ---
PROGRESS NOTE DATE OF SERVICE: 11/02/2019 REASON FOR FOLLOWUP: 1. Possible UTI. 2. MRSA bacteremia. INTERVAL HISTORY: The patient is currently afebrile, has been breathing comfortably. The patient seems to be lethargic and did not provide any history. No nausea, vomiting or diarrhea has been reported. PHYSICAL EXAMINATION: Blood pressure is 135/51 with a pulse of 73, temperature 97.4, he is 100% on room air. General description is an elderly male, lying in bed in no distress. RESPIRATORY SYSTEM: Unlabored breathing, clear to auscultation anteriorly. HEART: S1, S2. Regular rate and rhythm. ABDOMEN: Soft, no tenderness. LABS: Hemoglobin 7, white count of 6 with a BUN of 29, creatinine 0.8. DIAGNOSTIC IMPRESSION AND PLAN: 1. Patient admitted to the hospital with likely multifactorial with possible component of dehydration. has been negative, urine cultures have been negative. Cefepime can be discontinued. 2. Patient with history of recent MRSA bacteremia, possible neuromuscular source, levels. Continue to finish a course of therapy. Continue supportive care. MMODL / IJN: [id number] /
--- NOTE | 2019-11-02 15:00 | P.PN ---
Subjective Progress Note Date: 11/02/19 Principal diagnosis: 79-year-old pleasant male was at the subacute rehab was sent in to [facility] because of his decreased functionality generalized weakness which has been getti ng worse and possible confusion. Patient was not confused when I evaluated patient is at his baseline alert oriented 2-3 able to provide me did answer is better patient is not aware of any confusion. is unable to provide me much history. Patient was believed to have urinary tract infection was subsequently transferred here for further management of UTI considering his previous lengthy hospitalization course here. Patient is presently on Zyvox and Cipro for his endocarditis with MRSA and pseudomonal UTI respectively. Patient was evaluated by infectious disease urine is bit abnormal but patient doesn't have any UTI symptoms there is no evidence of urinary tract infection yet patient doesn't have any fever but doesn't have any leukocytosis. Patient is anemic which is chronic is a hemoglobin at the time of discharge is 8.7 now around 7.4 this is secondary to multiple blood draws. There was a concern about GI bleed although patient doesn't have any dark stools or blood in the stools or hematemesis or hematochezia. 10/29/2019 Patient is feeling better patient's serum creatinine continue to improve. 10/30/2019 Patient had a fall. Hit to his head, computed tomography scan of the head did not show any intracranial bleed. 10/31/2019 Patient is lying in bed and appears to be in no acute distress. No acute overnight issues. Terrence is at the bedside. states that he is now eating because of the type of diet and that it has no flavor. Regular diet with low-salt and low potassium has been ordered. Patient encouraged to continue with oral intake and water as he is not even drinking that. Patient continues to sleep most of the day. Currently patient denies any chest pain, shortness of breath, or palpitations. Patient is afebrile. Patient denies any nausea or vomiting and is tolerating diet. Patient continues to be incontinent of urine but is urinating. Creatinine today is improved and is currently 2.19. Potassium today is 5.6 and an order of Kayexalate was given. 11/01/2019 Patient is lying in bed comfortably and appears to be in no acute distress. Creatinine today has improved and is currently 1.89. Patient does have a history of chronic anemia and hemoglobin has been remaining stable at 7.2. Patient will need repeat labs in a few days to monitor electrolytes as well as hemoglobin. Patient has no active bleeding noted at this time. Patient has been urinating and is often incontinent of urine and a brief. Patient continues to refuse physical therapy at times but has managed to get up in the chair intermittently with to person total assist almost. Patient will need to continue with physical therapy in the outpatient setting as the 's goal for the patient is to increase his strength to be able to return home. Patient is also continuing to eat very poorly and discuss this at length with the along with the patient and states that it is because of a renal diet which is very bland and no flavor. Patient hasn't been eating very well on previous admissions and continues to worsen. Encouraged the patient to continue with a regular diet with possible low sodium low potassium along with Magic cups in between meals as he has been eating those. Patient is also not drinking very well and encourage the patient to continue drinking fluids as he gets dehydrated easily. Discussed with the about possible hospice and she is not willing at this time to agree with this. Possibly a conversation while in the [facility] could be had given patient's current status. Currently patient denies any chest pain, shortness of breath, or palpitations. Patient is afebrile. Patient denies any nausea or vomiting and has been eating as mentioned previously very poorly but eating some bites of each meal. Extremely poor and guarded prognosis. On exam vital signs are stable. Temp is 98.5F, pulse is 63, respirations are 12, blood pressure is 145/75, oxygen saturation is 98% on room air. Cardio S1, S2 are muffled. Respiratory system shows diminished breath sounds at the bases otherwise clear to auscultation. Abdomen is soft and nontender. Nervous system shows mild to moderate diffuse weakness. 11/02/2019 Patient is lying in bed and appears to be in no acute distress. No acute o vernight issues. Patient's hemoglobin today was 7.0 and will be receiving a unit of PRBCs and will recheck after transfusion. His magnesium this morning was also 1.4 and will be replaced. Potassium is slightly improved and is 5.3. Patient has retained authorization to return to [facility]. Will repeat a.m. labs. Patient worked with physical therapy slightly this morning and sitting at the side of the bed which is an improvement from and previously refusing physical therapy. Patient's oral intake continues to be poor and needs frequent encouragement. Will continue to monitor closely. Objective - Vital Signs Vital signs: Vital Signs Temp 97.4 F L 11/02/19 11:15 Pulse 73 11/02/19 11:15 Resp 16 11/02/19 11:15 BP 135/61 11/02/19 11:15 Pulse Ox 100 11/02/19 11:15 Intake & Output 11/01/19 11/02/19 11/02/19 18:59 06:59 18:59 Intake Total 0 Output Total 200 Balance -200 0 Weight 78 kg 84.5 kg Intake: Blood Product 0 Rc As-1 Unit 0 [id number] Output: Urine 200 Other: Voiding Method Urinal Diaper Diaper Incontinent Incontinent # Voids 3 2 - Exam GENERAL: The patient is alert and oriented x2-3, not in any acute distress. Well developed, well nourished. 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 EOMI. No scleral icterus. No conjunctival pallor. Normocephalic, atraumatic. No pharyngeal erythema. No thyromegaly. CARDIOVASCULAR: S1 and S2 present. No murmurs, rubs, or gallops. PULMONARY: Chest is clear to auscultation, no wheezing or crackles. ABDOMEN: Soft, nontender, nondistended, normoactive bowel sounds. No palpable organomegaly. MUSCULOSKELETAL: No joint swelling or deformity. EXTREMITIES: No cyanosis, clubbing, or pedal edema. NEUROLOGICAL: Gross neurological examination did not reveal any focal deficits. SKIN: No rashes. Pale - Labs CBC & Chem 7: 11/02/19 06:00 11/02/19 06:00 Labs: Abnormal Lab Results - Last 24 Hours (Table) 11/01/19 11/01/19 11/02/19 Range/Units 17:12 20:26 06:00 RBC 2.33 L (4.30-5.90) m/uL Hgb 7.0 L (13.0-17.5) gm/dL Hct 21.3 L (39.0-53.0) % Potassium (3.5-5.1) mmol/L Chloride (98-107) mmol/L Carbon Dioxide (22-30) mmol/L BUN (9-20) mg/dL Creatinine (0.66-1.25) mg/dL Glucose (74-99) mg/dL POC Glucose (mg/dL) 118 H 105 H (75-99) mg/dL Magnesium (1.6-2.3) mg/dL Crossmatch 11/02/19 11/02/19 11/02/19 Range/Units 06:00 06:53 09:12 RBC (4.30-5.90) m/uL Hgb (13.0-17.5) gm/dL Hct (39.0-53.0) % Potassium 5.3 H (3.5-5.1) mmol/L Chloride 112 H (98-107) mmol/L Carbon Dioxide 21 L (22-30) mmol/L BUN 29 H (9-20) mg/dL Creatinine 1.85 H (0.66-1.25) mg/dL Glucose 121 H (74-99) mg/dL POC Glucose (mg/dL) 111 H (75-99) mg/dL Magnesium 1.4 L (1.6-2.3) mg/dL Crossmatch See Detail 11/02/19 11/02/19 Range/Units 09:12 11:36 RBC (4.30-5.90) m/uL Hgb (13.0-17.5) gm/dL Hct (39.0-53.0) % Potassium (3.5-5.1) mmol/L Chloride (98-107) mmol/L Carbon Dioxide (22-30) mmol/L BUN (9-20) mg/dL Creatinine (0.66-1.25) mg/dL Glucose (74-99) mg/dL POC Glucose (mg/dL) 135 H (75-99) mg/dL Magnesium 1.5 L (1.6-2.3) mg/dL Crossmatch Microbiology - Last 24 Hours (Table) 10/28/19 13:34 Blood Culture - Preliminary Blood No Growth after 96 hours Assessment and Plan Assessment: -Confusion possible encephalopathy appears to be metabolic does not appear to have another urinary tract infection although patient will be continued on cefepime until we get the urine cultures blood cultures come cultures are so far negative significant history persistent bacteremia during his last hospitalization secondary to endocarditis and patient will be continued on Zyvox possibility of sepsis contributing to his encephalopathy is low -Acute renal failure prerenal azotemia continue with IV fluids patient does appear to have chronic diastolic dysfunction because of which will be cautious with IV fluids were continued 75 mL per hour. Patient's creatinine did improve. Current creatinine is 2.19. -Anemia appears to be chronic probably anemia of chronic disease no evidence of GI bleed at this time. Patient will be monitored and will be transfused if nee ded. -Recent history of endocarditis with MRSA and UTI with Pseudomonas continue with the above-mentioned antibiotics -Atrial fibrillation: Patient is presently rate controlled on anti-coagulation which will be continued -Hypothyroidism -Parkinson's with parkinsonian tremor -Type 2 diabetes mellitus Plan: Continue current medications, management, and symptomatic treatment. Patient's hemoglobin was 7.0 and will be receiving 1 unit of PRBCs. Magnesium being replaced as his current magnesium was 1.4. Current creatinine is 1.85 and trending down. Will repeat a.m. labs. Potassium was 5.3 today. Case management and social work are following for discharge needs as patient will be returning to [facility] upon discharge. Authorization has been obtained to return to [facility] once discharged. may be agreeable to discuss hospice options. Further recommendations to follow. Possible discharge in 24-48 hours.
[2019-11-02 17:24] LABS: Glucose,Whole Blood 126 mg/dL (75-99)
[2019-11-02 17:26] LABS: Basophils % (A) 1 %; Eosinophils # (A) 0.2 k/uL (0-0.7); Eosinophils % (A) 3 %; HCT 27.4 % (39.0-53.0); Lymphocytes # (A) 2.1 k/uL (1.0-4.8); Lymphocytes % (A) 29 %; MCHC 31.7 g/dL (31.0-37.0); MCV 91.5 fL (80.0-100.0); Mean Platelet Volume 9.1; Monocytes # (A) 0.5 k/uL (0-1.0); Monocytes % (A) 7 %; Neutrophils # (A) 4.2 k/uL (1.3-7.7); Neutrophils % (A) 59 %; Platelet Count 222 k/uL (150-450); RBC 2.99 m/uL (4.30-5.90); RDW 15.5 % (11.5-15.5); WBC 7.2 k/uL (3.8-10.6)
[2019-11-02 17:27] LABS: HGB 8.7 gm/dL (13.0-17.5)
[2019-11-02 20:51] LABS: Glucose,Whole Blood 154 mg/dL (75-99)
[2019-11-02] MEDS: INSULIN DETEMIR (LEVEMIR) 100 UNIT/ML SYR SQ SCH (21:07)
[2019-11-02] MEDS: LEVOTHYROXINE 100 MCG TAB PO SCH (21:07)
[2019-11-02 21:40] LABS: % Iron Saturation 33.01 (15.00-50.00); Ferritin 496.7 ng/mL (22.0-322.0)
[2019-11-03 07:00] LABS: Basophils % (A) 1 %; Eosinophils # (A) 0.2 k/uL (0-0.7); Eosinophils % (A) 3 %; HGB 7.8 gm/dL (13.0-17.5); Lymphocytes # (A) 1.9 k/uL (1.0-4.8); Lymphocytes % (A) 34 %; MCH 29.4 pg (25.0-35.0); MCHC 32.4 g/dL (31.0-37.0); MCV 90.7 fL (80.0-100.0); Mean Platelet Volume 9.1; Monocytes # (A) 0.5 k/uL (0-1.0); Monocytes % (A) 9 %; Neutrophils % (A) 52 %; Platelet Count 195 k/uL (150-450); RBC 2.64 m/uL (4.30-5.90); RDW 15.6 % (11.5-15.5); WBC 5.8 k/uL (3.8-10.6)
[2019-11-03 07:05] LABS: Glucose,Whole Blood 57 mg/dL (75-99)
[2019-11-03 07:08] LABS: Calcium 8.8 mg/dL (8.4-10.2); Magnesium 1.9 mg/dL (1.6-2.3); Potassium 4.8 mmol/L (3.5-5.1)
[2019-11-03 07:44] LABS: Glucose,Whole Blood 67 mg/dL (75-99)
[2019-11-03 08:06] LABS: Glucose,Whole Blood 82 mg/dL (75-99)
[2019-11-03] MEDS: INSULIN ASPART (NovoLOG) 100 UNIT/ML VIAL SQ SCH ×2 (09:44→13:09)
[2019-11-03] MEDS: MEGESTROL 400 MG/10 ML CUP PO SCH (09:44)
[2019-11-03] MEDS: LINEZOLID 600 MG TAB PO SCH (09:44)
[2019-11-03] MEDS: METOPROLOL TARTRATE 25 MG TAB PO SCH (09:44)
[2019-11-03] MEDS: SODIUM BICARBONATE TAB 650 MG TAB PO SCH (09:44)
[2019-11-03] MEDS: CARBIDOPA-LEVODOPA 25-100 MG 1 EACH TAB PO SCH (09:44)
[2019-11-03] MEDS: LACTOBACILLUS ACIDOPH & BULGAR 1 EACH PACKET PO SCH (09:44)
[2019-11-03] MEDS: APIXABAN 2.5 MG TABLET PO SCH (09:44)
--- NOTE | 2019-11-03 10:40 | P.PN ---
Subjective Patient is seen in follow-up for acute kidney injury on chronic kidney disease. Renal function stable . Off IV fluids at this time. Patient is incontinent but has been voiding. Oral intake is poor. No vomiting or diarrhea. Status post blood transfusion on November 02. Hemoglobin 7.8 this morning. No signs of active bleeding. Vital signs are stable. General: The patient appeared well nourished and normally developed. HEENT: Head exam is unremarkable. Neck is without jugular venous distension. LUNGS: Lungs are clear to auscultation and percussion. Breath sounds decreased. HEART: Rate and Rhythm are regular. First and second heart sounds normal. No murmurs, rubs or gallops. ABDOMEN: Abdominal exam reveals normal bowel sounds. Non-tender and non- distended. No evidence of peritonitis. EXTREMITITES: No clubbing, cyanosis, or edema. Objective - Vital Signs Vital signs: Vital Signs Temp 97.9 F 11/03/19 07:00 Pulse 72 11/03/19 07:00 Resp 18 11/03/19 07:00 BP 129/68 11/03/19 07:00 Pulse Ox 95 11/03/19 07:00 Intake & Output 11/02/19 11/03/19 11/03/19 18:59 06:59 18:59 Intake Total 310 296 Balance 310 296 Weight 83.2 kg Intake: Oral 296 Blood Product 310 Rc As-1 Unit 310 [id number] Other: Voiding Method Diaper Incontinent # Voids 5 1 - Labs CBC & Chem 7: 11/03/19 06:32 11/03/19 06:32 Labs: Abnormal Lab Results - Last 24 Hours (Table) 11/02/19 11/02/19 11/02/19 Range/Units 09:12 09:12 11:36 RBC (4.30-5.90) m/uL Hgb (13.0-17.5) gm/dL Hct (39.0-53.0) % RDW (11.5-15.5) % Chloride (98-107) mmol/L BUN (9-20) mg/dL Creatinine (0.66-1.25) mg/dL Glucose (74-99) mg/dL POC Glucose (mg/dL) 135 H (75-99) mg/dL Magnesium 1.5 L (1.6-2.3) mg/dL TIBC 206 L (228-460) ug/dL Ferritin 496.7 H (22.0-322.0) ng/mL Crossmatch See Detail 11/02/19 11/02/19 11/02/19 Range/Units 17:01 17:13 20:40 RBC 2.99 L (4.30-5.90) m/uL Hgb 8.7 L D (13.0-17.5) gm/dL Hct 27.4 L (39.0-53.0) % RDW (11.5-15.5) % Chloride (98-107) mmol/L BUN (9-20) mg/dL Creatinine (0.66-1.25) mg/dL Glucose (74-99) mg/dL POC Glucose (mg/dL) 126 H 154 H (75-99) mg/dL Magnesium (1.6-2.3) mg/dL TIBC (228-460) ug/dL Ferritin (22.0-322.0) ng/mL Crossmatch 11/03/19 11/03/19 11/03/19 Range/Units 06:32 06:32 06:54 RBC 2.64 L (4.30-5.90) m/uL Hgb 7.8 L (13.0-17.5) gm/dL Hct 24.0 L (39.0-53.0) % RDW 15.6 H (11.5-15.5) % Chloride 114 H (98-107) mmol/L BUN 30 H (9-20) mg/dL Creatinine 1.86 H (0.66-1.25) mg/dL Glucose 50 L (74-99) mg/dL POC Glucose (mg/dL) 57 L (75-99) mg/dL Magnesium (1.6-2.3) mg/dL TIBC (228-460) ug/dL Ferritin (22.0-322.0) ng/mL Crossmatch 11/03/19 Range/Units 07:33 RBC (4.30-5.90) m/uL Hgb (13.0-17.5) gm/dL Hct (39.0-53.0) % RDW (11.5-15.5) % Chloride (98-107) mmol/L BUN (9-20) mg/dL Creatinine (0.66-1.25) mg/dL Glucose (74-99) mg/dL POC Glucose (mg/dL) 67 L (75-99) mg/dL Magnesium (1.6-2.3) mg/dL TIBC (228-460) ug/dL Ferritin (22.0-322.0) ng/mL Crossmatch Microbiology - Last 24 Hours (Table) 10/28/19 13:34 Blood Culture - Preliminary Blood No Growth after 120 hours Assessment and Plan Plan: Assessment: 1. Acute kidney injury mostly prerenal secondary to hypotension and poor oral intake. Renal function stable. 2. Chronic kidney disease stage II with baseline creatinine near 1.2-1.3 in August 2019. However recently his renal function has been worse. 3. History of MRSA bacteremia maintained on Zyvox. 4. UTI maintain and antibiotics. 5. Insulin-dependent diabetes mellitus. 6. Metabolic acidosis secondary to acute kidney injury and IV fluids. Better. Maintained on oral sodium bicarbonate. 7. Hypomagnesemia from poor oral intake. Status post replacement. Better. 8. Mild hyperkalemia secondary to acute kidney injury and metabolic acidosis. Stable. 9. Anemia of chronic kidney disease maintained on Aranesp. No active bleeding. Iron replete. Status post blood transfusion November 02. Plan: Encouraged oral intake. Avoid nephrotoxins. Continue to monitor renal function and urine output.
[2019-11-03 11:48] LABS: Glucose,Whole Blood 97 mg/dL (75-99)
--- NOTE | 2019-11-03 12:26 | P.DS ---
Providers Date of admission: 10/27/19 17:51 Expected date of discharge: 11/03/19 Attending physician: Kirstie Isbell Consults: 10/27/19 17:59 Consult Physician Urgent Consulting Provider: Ross Bueno Consult Reason/Comments: UTI/familiar to patient Do you want consulting provider notified?: Yes Placement Type Exists?: Yes 10/27/19 18:09 Consult Physician Urgent Consulting Provider: Le Domínguez Consult Reason/Comments: elevated creatinine/ familiar to patient Do you want consulting provider notified?: Yes Primary care physician: Stated None Hospital Course: Final diagnosis -Confusion possible encephalopathy appears to be metabolic -Acute renal failure prerenal azotemia -Heart failure with chronic diastolic dysfunction -Anemia appears to be chronic probably anemia of chronic disease -Recent history of endocarditis with MRSA and UTI with Pseudomonas -Atrial fibrillation -Hypothyroidism -Parkinson's with parkinsonian tremor -Type 2 diabetes mellitus Discharge disposition Patient is being discharged in a stable condition with guarded prognosis to [facility] where he will continue with PT/OT therapy for strength and mobility. Patient will continue on Zyvox twice daily for an additional 2 weeks. Total time taken is 35 minutes. History of present illness 79-year-old pleasant male was at the subacute rehab was sent in to [facility] because of his decreased functionality generalized weakness which has been getting worse and possible confusion. Patient was not confused when I evaluated patient is at his baseline alert oriented 2-3 able to provide me did answer is better patient is not aware of any confusion. is unable to provide me much history. Patient was believed to have urinary tract infection was subsequently transferred here for further management of UTI considering his previous lengthy hospitalization course here. Patient is presently on Zyvox and Cipro for his endocarditis with MRSA and pseudomonal UTI respectively. Patient was evaluated by infectious disease urine is bit abnormal but patient doesn't have any UTI symptoms there is no evidence of urinary tract infection yet patient doesn't hav e any fever but doesn't have any leukocytosis. Patient is anemic which is chronic is a hemoglobin at the time of discharge is 8.7 now around 7.4 this is secondary to multiple blood draws. There was a concern about GI bleed although patient doesn't have any dark stools or blood in the stools or hematemesis or hematochezia. 11/01/2019 Patient is lying in bed comfortably and appears to be in no acute distress. Creatinine today has improved and is currently 1.89. Patient does have a history of chronic anemia and hemoglobin has been remaining stable at 7.2. Patient will need repeat labs in a few days to monitor electrolytes as well as hemoglobin. Patient has no active bleeding noted at this time. Patient has been urinating and is often incontinent of urine and a brief. Patient continues to refuse physical therapy at times but has managed to get up in the chair intermittently with to person total assist almost. Patient will need to continue with physical therapy in the outpatient setting as the 's goal for the patient is to increase his strength to be able to return home. Patient is also continuing to eat very poorly and discuss this at length with the along with the patient and states that it is because of a renal diet which is very bland and no flavor. Patient hasn't been eating very well on previous admissions and continues to worsen. Encouraged the patient to continue with a regular diet with possible low sodium low potassium along with Magic cups in between meals as he has been eating those. Patient is also not drinking very well and encourage the patient to continue drinking fluids as he gets dehydrated easily. Discussed with the about possible hospice and she is not willing at this time to agree with this. Possibly a conversation while in the [facility] could be had given patient's current status. Currently patient denies any chest pain, shortness of breath, or palpitations. Patient is afebrile. Patient denies any nausea or vomiting and has been eating as mentioned previously very poorly but eating some bites of each meal. Extremely poor and guarded prognosis. 11/02/2019 Patient is lying in bed and appears to be in no acute distress. No acute overnight issues. Patient's hemoglobin today was 7.0 and will be receiving a unit of PRBCs and will recheck after transfusion. His magnesium this morning wa s also 1.4 and will be replaced. Potassium is slightly improved and is 5.3. Patient has retained authorization to return to [facility]. Will repeat a.m. labs. Patient worked with physical therapy slightly this morning and sitting at the side of the bed which is an improvement from and previously refusing physical therapy. Patient's oral intake continues to be poor and needs frequent encouragement. Will continue to monitor closely. 11/03/2019 Patient is sleeping but arousable. is at the bedside. Patient received one unit of PRBC yesterday and hemoglobin today is 7.8. Magnesium was also replaced and is 1.9. Patient will continue on sodium bicarbonate tablets in the outpatient setting. Social work and I had a lengthy discussion with the at the bedside today and Terrence is agreeable to comfort care with a hospice consult once at the [facility] as she is tired of seeing him return to the hospital multiple times. will need to discuss this further with case management at [facility] as far as financial needs and insurance requirements. Patient will continue on a regular diet with low sodium and low potassium restriction as he has extremely poor oral intake and needs extensive encouragement with eating and drinking and assistance with all meals. Patient will continue with sliding scale coverage as needed with blood glucose monit oring. Patient will continue with physical therapy as tolerated for strength and mobility. Recommending podiatry consult as well if there is a visiting consultation available for toenail trimming as they are quite unkempt. Extremely poor and guarded prognosis. On exam vital signs are stable. Temp is 97.9F, pulse is 72, respirations are 18, blood pressure is 129/68, oxygen saturation is 95% on room air. Cardio S1, S2 are muffled. Respiratory system shows diminished breath sounds at the bases otherwise clear to auscultation. Abdomen is soft and nontender. Nervous system shows mild to moderate diffuse weakness. Please refer to medication reconciliation sheet for a list of medications. Patient Condition at Discharge: Fair Plan - Discharge Summary Discharge Rx Participant: Yes New Discharge Prescriptions: New INSULIN ASPART (NovoLOG) [NovoLOG (formulary)] 0 unit SQ ACHS vial Sodium Bicarbonate Tab 650 mg PO BID tab Continue Carbidopa-Levodopa 25-100 mg [Sinemet 25-100 mg] 2 tab PO TID Levothyroxine Sodium [Synthroid] 100 mcg PO HS Albuterol Inhaler [Ventolin Hfa Inhaler] 2 puff INHALATION RT-Q6H PRN PRN Reason: Shortness Of Breath Metoprolol Tartrate [Lopressor] 25 mg PO BID Acetaminophen Tab [Tylenol] 650 mg PO Q6H PRN PRN Reason: Pain Allopurinol [Zyloprim] 100 mg PO DAILY amLODIPine [Norvasc] 5 mg PO DAILY Insulin Detemir [Levemir Flextouch] 18 units SQ HS Apixaban [Eliquis] 5 mg PO BID Megestrol [Megace] 400 mg PO DAILY cup Liquical Liquid 30 ml PO BID Insulin Lispro [humaLOG Kwikpen] 5 unit SQ HS L.acidoph,Paracasei, B.lactis [Probiotic] 1 cap PO BID Linezolid [Zyvox] 600 mg PO BID #0 Discontinued Ciprofloxacin HCl [Cipro] 500 mg PO BID #0 tab Discharge Medication List Carbidopa-Levodopa 25-100 mg [Sinemet 25-100 mg] 2 tab PO TID 07/08/16 [History] Levothyroxine Sodium [Synthroid] 100 mcg PO HS 05/27/19 [History] Albuterol Inhaler [Ventolin Hfa Inhaler] 2 puff INHALATION RT-Q6H PRN 06/16/19 [History] Metoprolol Tartrate [Lopressor] 25 mg PO BID 06/16/19 [History] Acetaminophen Tab [Tylenol] 650 mg PO Q6H PRN 08/31/19 [History] Allopurinol [Zyloprim] 100 mg PO DAILY 08/31/19 [History] Apixaban [Eliquis] 5 mg PO BID 10/13/19 [History] Insulin Detemir [Levemir Flextouch] 18 units SQ HS 10/13/19 [History] amLODIPine [Norvasc] 5 mg PO DAILY 10/13/19 [History] Megestrol [Megace] 400 mg PO DAILY cup 10/20/19 [Rx] Insulin Lispro [humaLOG Kwikpen] 5 unit SQ HS 10/27/19 [History] L.acidoph,Paracasei, B.lactis [Probiotic] 1 cap PO BID 10/27/19 [History] Liquical Liquid 30 ml PO BID 10/27/19 [History] INSULIN ASPART (NovoLOG) [NovoLOG (formulary)] 0 unit SQ ACHS vial 11/01/19 [Rx] Linezolid [Zyvox] 600 mg PO BID #0 11/01/19 [Rx] Sodium Bicarbonate Tab 650 mg PO BID tab 11/03/19 [Rx] Follow up Appointment(s)/Referral(s): [facility] [NON-STAFF] - As Needed Ambulatory/Diagnostic Orders: Basic Metabolic Panel [LAB.AMB] Time Frame: 3 Days, Location: None Selected Complete Blood Count w/diff [LAB.AMB] Time Frame: 3 Days, Location: None Selected Activity/Diet/Wound Care/Special Instructions: Patient is returning to [facility] Family is willing to proceed with comfort care/hospice consult once arrived to the [facility] facility Continue current regular diet with low potassium and low sodium May continue with Magic cups in between meals Continue to encourage oral intake and fluids!!! Continue monitoring blood sugars before meals at bedtime and treat with sliding scale accordingly Continue Zyvox for 2 more weeks Continue working with physical therapy Follow-up with primary care provider upon discharge Repeat labs in 3-4 days Discharge Disposition: TRANSFER TO SNF/ECF
[2019-11-03 14:26] VITALS: BP 131/49; PULSE 61; RESP 16; TEMP 98.2
--- NOTE | 2019-11-03 15:33 | PN ---
PROGRESS NOTE DATE OF SERVICE: 11/03/2019 REASON FOR FOLLOW UP: 1. UTI. 2. MRSA bacteremia. INTERVAL HISTORY: The patient is currently afebrile. Patient is sleepy, lethargic and did not provide any history. No nausea, no vomiting has been reported or any diarrhea. PHYSICAL EXAMINATION: Blood pressure 131/49 with pulse of 51, temperature 98.2. He is 99% on room air. General description is an elderly male, lying in bed in no distress. RESPIRATORY SYSTEM: Unlabored breathing. Decreased breath sounds in the base, no wheeze. HEART: S1, S2. Regular rate and rhythm. ABDOMEN: Soft, no tenderness. LABS: Hemoglobin 7.1, white count of 5.2, BUN of 30, creatinine 1.86. Blood culture has been negative. Urine is negative. DIAGNOSTIC IMPRESSION AND PLAN: 1. Patient admitted to the hospital with mental status changes and concern for possible urinary tract infection. However, urine culture is negative. Blood cultures is negative. Antibiotic has been discontinued. 2. Patient with recent extensive MRSA bacteremia, responding to the oral Zyvox to continue to finish a course of therapy. Will monitor clinical course closely. MMODL / IJN: [id number] /
== END 2019-11-03 14:52 | DRG 682 ==
LOC: 4SSUR 17:51
PROVIDERS: ADMIT Internal Medicine; ATTEND Internal Medicine
PROC: 30233N1 Transfusion of Nonautologous Red Blood Cells into Peripheral Vein, Percutaneous Approach (ICD-10-PCS; principal; 2019-11-02)
DX: N17.9 Acute kidney failure, unspecified (principal); G93.41 Metabolic encephalopathy; I48.92 Unspecified atrial flutter; I50.32 Chronic diastolic (congestive) heart failure; E87.2 Acidosis; I13.0 Hypertensive heart and chronic kidney disease with heart failure and stage 1 through stage 4 chronic kidney disease, or unspecified chronic kidney disease; I38 Endocarditis, valve unspecified; Z86.14 Personal history of Methicillin resistant Staphylococcus aureus infection; Z87.440 Personal history of urinary (tract) infections; Z51.5 Encounter for palliative care; I48.91 Unspecified atrial fibrillation; J44.9 Chronic obstructive pulmonary disease, unspecified; N18.3 Chronic kidney disease, stage 3 (moderate); R32 Unspecified urinary incontinence; W19.XXXA Unspecified fall, initial encounter; Z53.20 Procedure and treatment not carried out because of patient's decision for unspecified reasons; Z79.01 Long term (current) use of anticoagulants; Z79.4 Long term (current) use of insulin; D63.1 Anemia in chronic kidney disease; E03.9 Hypothyroidism, unspecified; E11.22 Type 2 diabetes mellitus with diabetic chronic kidney disease; E83.42 Hypomagnesemia; E86.0 Dehydration; E87.5 Hyperkalemia; F40.240 Claustrophobia; G20 Parkinson's disease; I25.2 Old myocardial infarction; Z79.890 Hormone replacement therapy; Z79.899 Other long term (current) drug therapy; Z79.2 Long term (current) use of antibiotics; Z80.3 Family history of malignant neoplasm of breast; Z82.49 Family history of ischemic heart disease and other diseases of the circulatory system; Z85.51 Personal history of malignant neoplasm of bladder; Z86.79 Personal history of other diseases of the circulatory system; Z87.891 Personal history of nicotine dependence; Z90.49 Acquired absence of other specified parts of digestive tract; Z80.8 Family history of malignant neoplasm of other organs or systems; Z83.518 Family history of other specified eye disorder; Z87.01 Personal history of pneumonia (recurrent); Z88.6 Allergy status to analgesic agent
CPT/HCPCS: 70450; 80048; 81001; 82728; 83036; 83540; 83550; 83735; 85025; 85027; 85652; 86140; 86850; 86900; 86901; 86920; 87040; 87086; 93005